=== PATIENT | female | born 1950 | race Caucasian/White ===

== ENCOUNTER 2020-08-19 13:13 | Outpatient (REF) | payer MEDICARE, MEDICAID, SELFPAY | END 2020-08-19 13:14 | disposition home or self-care (01) | LOC: HO.LAB 13:13 | PROVIDERS: Visit Provider Nurse Practitioner Family | DX: Z20.828 Contact with and (suspected) exposure to other viral communicable diseases (principal) | CPT/HCPCS: U0003 ==

== ENCOUNTER 2020-08-20 10:25 | Outpatient (REF) | payer MEDICARE, MEDICAID, SELFPAY ==
[2020-08-20 11:55] LABS: Alanine Aminotransferase 22 U/L (0-31); Alkaline Phosphatase 71 U/L (39-117); Anion Gap 14 (12-20); Aspartate Amino Transferase 17 U/L (5-31); Bilirubin Direct 0.4 mg/dL (0.0-0.5); Bilirubin Total 0.9 mg/dL (0.0-1.0); Blood Urea Nitrogen 34 mg/dL (9-16); Calcium 10.4 mg/dL (8.4-10.2); Carbon Dioxide 27 mmol/L (22-29); Chloride 98 mmol/L (96-108); Cholesterol 229 mg/dL; Estimated Glomerular Filt Rate 41; Glucose Random 272 mg/dL (60-115); HDL Cholesterol 80 mg/dL; LDL Cholesterol Calculated 135 mg/dl; Potassium 3.8 mmol/l (3.3-5.1); Sodium 135 mmol/L (135-145); Total Protein 7.8 g/dL (6.5-8.0); Triglycerides 70 mg/dL
[2020-08-20 12:00] LABS: Thyroid Stimulating Hormone 1.48 uIU/mL (0.32-4.0)
== END 2020-08-20 10:26 | disposition home or self-care (01) ==
LOC: HO.HMGCLDS 10:25
PROVIDERS: Visit Provider Student in an Organized Health Care Education/Training Program
DX: E03.9 Hypothyroidism, unspecified (principal); E11.9 Type 2 diabetes mellitus without complications
CPT/HCPCS: 80048; 80061; 80076; 84443

== ENCOUNTER 2020-08-31 10:06 | Outpatient (REF) | payer MEDICARE, MEDICAID, SELFPAY | END 2020-08-31 10:07 | disposition home or self-care (01) | LOC: HO.HMGCLDS 10:06 | PROVIDERS: Visit Provider Internal Medicine | DX: Z20.822 Contact with and (suspected) exposure to COVID-19 (principal) | CPT/HCPCS: 36415; C9803; U0003 ==

== ENCOUNTER 2020-10-08 10:24 | Outpatient (REF) | payer MEDICARE, SELFPAY ==
[2020-10-08 14:36] LABS: Alanine Aminotransferase 25 U/L (0-31); Albumin Level 4.4 g/dL (3.5-5.0); Alkaline Phosphatase 63 U/L (39-117); Anion Gap 12 (12-20); Aspartate Amino Transferase 21 U/L (5-31); Bilirubin Total 0.5 mg/dL (0.0-1.0); Blood Urea Nitrogen 22 mg/dL (9-16); Calcium 9.9 mg/dL (8.4-10.2); Carbon Dioxide 28 mmol/L (22-29); Chloride 98 mmol/L (96-108); Cholesterol 217 mg/dL; Estimated Glomerular Filt Rate 58; Glucose Fasting 216 mg/dL (60-99); HDL Cholesterol 68 mg/dL; LDL Cholesterol Calculated 127 mg/dl; Potassium 3.3 mmol/L (3.3-5.1); Sodium 135 mmol/L (135-145); Total Protein 6.8 g/dL (6.5-8.0); Triglycerides 113 mg/dL
[2020-10-08 14:43] LABS: TSH reflex Free T4 0.48 uIU/mL (0.32-4.0)
[2020-10-08 14:46] LABS: Microalbum/Creatinine Ratio Ur 10.8 ug/mg cr
[2020-10-08 14:53] LABS: Estimated Average Glucose 157 mg/dL; Hemoglobin A1c % 7.1 %
== END 2020-10-08 10:25 | disposition home or self-care (01) ==
LOC: HO.HMGCLDS 10:24
PROVIDERS: PCP Internal Medicine; Visit Provider Internal Medicine
DX: E11.9 Type 2 diabetes mellitus without complications (principal); E78.5 Hyperlipidemia, unspecified; I10 Essential (primary) hypertension
CPT/HCPCS: 36415; 80053; 80061; 82043; 83036; 84443

== ENCOUNTER 2021-02-08 08:00 | Outpatient (RCR) | payer MEDICARE, OTHER, SELFPAY ==
--- NOTE | 2020-11-12 09:43 | MHC.PT.EP ---
[facility] [place] Office [address] [phone] F: [phone] F: [phone] F: [phone] F: [phone] Physical Therapy Plan of Care Date of Evaluation: 11/10/20 Date of Surgery: Diagnosis: Lumbar DDD. 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 Short Term Goals: In 1 week: initiate HEP with evidence of compliance. In 3 weeks: improve baseline pain to < 4/10; initial: 6/10. Pleating Supervisor Goals: In 5 week: I with HEP. In 5 weeks: Pt will be able to tolerate sitting as long as she'd like provided choice of seat. Treatment Plan: Modalities to reduce pain, spasms and effusion. Manual therapy to restore motion and function. Therapeutic exercise to improve strength and flexibility. Neuromuscular re-education for posture and balance. Therapeutic activities to return to functional activities of daily living. Electronically signed by: Marin Adams PT. Please sign and return to therapist. Thank you for your referral.
--- NOTE | 2021-04-12 09:08 | MHC.PT.DC ---
[facility] [place] Office [place] Office [place] Office [address] Marlen Peng [address] [phone] F: [phone] F: [phone] F: [phone] F: [phone] Physical Therapy Discharge Report Diagnosis: Lumbar DDD. Date of Surgery: Date of Evaluation: 11/10/20 Date of Discharge: 04/12/21 Treatments to Date: 7 Cancellations to Date: 9 No Shows to Date: 1 Discharge Status: Visit Non-compliance Discharge Summary: Pt logged several cancelled apts, had demonstrated poor home compliance despite PT exercises improving her Sx. Pt did not attend her DC apt for final assessment. Electronically signed by: Marin Adams PT. Please sign and return to therapist. Thank you for your referral.
== END 2021-04-12 09:09 | disposition home or self-care (01) ==
LOC: HO.PTCHIC 08:00
PROVIDERS: PCP Internal Medicine; Visit Provider Internal Medicine
DX: M51.36 Other intervertebral disc degeneration, lumbar region (principal)
CPT/HCPCS: 97110; 97140; 97162

== ENCOUNTER 2021-05-26 06:51 | Outpatient (REF) | payer MEDICARE, OTHER, SELFPAY | END 2021-05-26 06:52 | disposition home or self-care (01) | LOC: HO.HMGCLDS 06:51 | PROVIDERS: PCP Student in an Organized Health Care Education/Training Program; Visit Provider Internal Medicine | DX: Z20.822 Contact with and (suspected) exposure to COVID-19 (principal) | CPT/HCPCS: C9803; U0003; U0005 ==

== ENCOUNTER 2022-04-04 09:50 | Outpatient (RCR) | payer MEDICARE, OTHER, SELFPAY | END 2022-08-03 09:01 | disposition home or self-care (01) | LOC: HO.PTCHIC 09:50 | PROVIDERS: PCP Student in an Organized Health Care Education/Training Program; Visit Provider Nurse Practitioner Primary Care | DX: R26.89 Other abnormalities of gait and mobility (principal) | CPT/HCPCS: 97110; 97112; 97162 ==

== ENCOUNTER 2022-04-06 18:34 | Outpatient (REF) | payer MEDICARE, OTHER, SELFPAY ==
[2022-04-06 19:30] LABS: Influenza A PCR NEGATIVE (Negative); Influenza B PCR NEGATIVE (Negative); Resp Syncy Virus RNA Qual PCR NEGATIVE (Negative); SARS COV2 PCR INHOUSE NEGATIVE (Negative)
== END 2022-04-06 18:35 | disposition home or self-care (01) ==
LOC: HO.LNP 18:34
PROVIDERS: Visit Provider Family Medicine
DX: Z20.822 Contact with and (suspected) exposure to COVID-19 (principal); R50.9 Fever, unspecified
CPT/HCPCS: 0241U

== ENCOUNTER 2022-06-17 07:41 | Inpatient (IN) | payer MEDICARE, OTHER, SELFPAY ==
[2022-06-17] VITALS (8 sets, daily range): BP systolic 128–190; BP diastolic 55–86; PULSE 58–69; RESP 12–18; TEMP 36.6–37.1; O2SAT 97–100; BMI 27.4
--- NOTE | ~2022-06-17 | US_ITS ---
EXAMINATION: US ABDOMEN LIMITED CLINICAL INFORMATION: Right upper quadrant, epigastric pain. COMPARISON: None TECHNIQUE: Real-time imaging of the right upper quadrant abdominal viscera. FINDINGS: PANCREAS: Visualized portions unremarkable. LIVER: Homogeneous echotexture. Small anechoic subcapsular cyst in the left lobe measuring 0.8 cm. GALLBLADDER: Unremarkable. COMMON BILE DUCT: Normal in caliber measuring 0.3 cm in diameter. RIGHT KIDNEY: 10.3 cm. Unremarkable. FREE FLUID: None. US/US abdomen limited IMPRESSION: Small left hepatic lobe cyst demonstrates benign features. No other significant abnormality.
--- NOTE | 2022-06-17 08:16 | ECG_ITS ---
Test Reason : abd pain Blood Pressure : / mmHG Vent. Rate : 058 BPM Atrial Rate : 058 BPM P-R Int : 136 ms QRS Dur : 080 ms QT Int : 434 ms P-R-T Axes : 017 012 019 degrees QTc Int : 426 ms Sinus bradycardia Otherwise normal ECG When compared with ECG of 20-JUN-2019 00:29, No significant change was found Referred By: Linda Penny Electronically Signed By:SOO WYATT MD
--- NOTE | 2022-06-17 08:17 | ED.ABDPAIN ---
HPI - Abdominal Pain General Chief Complaint: Abdominal Pain Stated Complaint: Covid+/abd pain/panic attack Time Seen by Provider: 06/17/22 08:04 Source: patient Mode of arrival: ambulatory History of Present Illness HPI narrative: 71-year-old female past medical history of diabetes HTN, HLD, degenerative disc disease, panic attack, COVID-19 positive on 06/10/22 presenting to the ED complaining of epigastric pain, nausea, mild diarrhea, and decreased p.o. intake x1 week. Reports pain worsened with eating. Denies fever, chills, cough, chest pain, shortness of breath, vomiting, dysuria/hematuria MD elicited complaint: abdominal pain Onset (ago): week(s) Related Data Home Medications Medication Instructions Recorded Confirmed metformin 500 mg tablet 500 mg PO BID 08/19/20 06/17/22 cholecalciferol (vitamin D3) 25 25 mcg PO DAILY 09/18/20 06/17/22 mcg (1,000 unit) capsule glipizide 10 mg tablet 10 mg PO BID 09/18/20 06/17/22 aspirin 81 mg tablet,delayed 81 mg PO DAILY 10/08/20 06/17/22 release cetirizine 10 mg tablet 10 mg PO DAILY PRN Allergic 10/08/20 06/17/22 Symptoms clonidine HCl 0.1 mg tablet 0.1 mg PO DAILY PRN Panic Attack(S) 10/08/20 06/17/22 cyclobenzaprine 10 mg tablet 10 mg PO DAILY PRN Spasms 10/08/20 06/17/22 losartan 100 mg tablet 50 mg PO DAILY 10/08/20 06/17/22 ascorbic acid (vitamin C) 1,000 mg 1,000 mg PO DAILY 06/17/22 06/17/22 tablet levothyroxine 125 mcg tablet 1 tab PO SUTUTHSA@0600 06/17/22 06/17/22 (Synthroid) levothyroxine 137 mcg tablet 1 tab PO MOWEFR@0600 06/17/22 06/17/22 (Synthroid) multivitamin with folic acid 400 1 tab PO DAILY 06/17/22 06/17/22 mcg tablet (Daily-Saadia (with folic acid)) omeprazole 40 mg capsule,delayed 40 mg PO DAILY PRN Indigestion 06/17/22 06/17/22 release Allergies Allergy/AdvReac Type Severity Reaction Status Date / Time gabapentin [GABAPENTIN] AdvReac Mild NAUSEA Unverified 04/06/22 16:15 acetaminophen [From PERCOCET] AdvReac Unknown VOMITTING Unverified 04/06/22 16:15 codeine [CODEINE] AdvReac Unknown VOMITTING Unverified 04/06/22 16:15 meperidine [From DEMEROL] AdvReac Unknown VOMITTING Unverified 04/06/22 16:15 morphine [MORPHINE] AdvReac Unknown CANT OPEN Unverified 04/06/22 16:15 HER EYES oxycodone [From PERCOCET] AdvReac Unknown VOMITTING Unverified 04/06/22 16:15 scallops [SCALLOPS] AdvReac Unknown ABD PAIN Unverified 04/06/22 16:15 Review of Systems Review of Systems Constitutional: No Fever, No Chills, No Fatigue, No Malaise ENT/Mouth: No Ear Pain, No Nasal Congestion, No sore throat, No Rhinorrhea, No Swallowing Difficulty Eyes: No Eye Pain, No Swelling, No Redness, No Vision Changes Cardiovascular: No Chest Pain, No SOB, No Orthopnea, No Edema, No Palpitations Respiratory: No Cough, No Sputum, No Wheezing, No Dyspnea Gastrointestinal: + Nausea, No Vomiting, + Diarrhea, No Constipation, + Abdominal pain Genitourinary: No Dysuria, No Urinary Frequency, No Hematuria, No Urinary Incontinence/retention, No Flank Pain, No Urinary Flow Changes, No Hesitancy Musculoskeletal: No joint pain, No Myalgias, No Joint Swelling Skin: No Skin Lesions, No rash Neuro: No Weakness, No Numbness, No Paresthesias, No Loss of Consciousness, No Dizziness, No Headache Yes all other systems are reviewed and are negative Constitutional: Reports as per [facility] Past Medical History Attestation statement: The following information was validated with the patient. 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 Advance Directives: Yes Advance Directives Information Provided: Yes Advance Directives on File: No Physical Exam ED Vital Signs: Vital Signs - 24 hr 06/17/22 07:49 06/17/22 08:35 06/17/22 10:20 Temperature 98 F 98.0 F Pulse Rate 68 58 63 Respiratory Rate 18 18 16 Blood Pressure 190/86 H 174/77 H 160/72 H Pulse Oximetry 100 97 100 Oxygen Delivery Method Room Air Room Air BMI result Body Mass Index 27.4 Const General: cooperative, healthy appearing, no acute distress and anxious Orientation/consciousness: patient oriented x3 Limitations: no limitations HENMT Head: Yes normal to inspection and Yes atraumatic Ears: hearing grossly normal bilaterally General nose exam: Normal external nose present Face and sinus: Yes normal facial exam Eyes General: appearance normal, both eyes and all related structures EOM: EOMs intact bilaterally Neck Neck: Yes normal visual inspection and Yes no meningeal signs Resp Effort & Inspection: normal respiratory effort and no respiratory distress Auscultation: clear to auscultation bilaterally, no crackles, no rales, no rhonchi and no wheezes Cardio Rate: regular rate Heart sounds: S1 normal heart sound present and S2 normal heart sound present GI Inspection: Yes normal to inspection Palpation (GI): Soft to palpation, Tenderness to palpation present (GI) in the epigastrum and in the RUQ (mild); with no rebound tenderness, no guarding and not rigid General: Yes no CVA tenderness Back/Spine/Pelvis Back: no CVA tenderness Skin Rashes: no rashes Wounds: no wounds Neuro General: patient oriented x3, tone normal, moves all extremities, no meningeal signs, no focal motor deficits and CN's II-XI intact bilaterally Gait exam (Neuro): Normal gait present Extrem General: Yes normal to inspection Course Course Course Narrative: -1010--no leukocytosis. H&H stable. Notably hyponatremic to 123. Hypochloremic to 90. Glucose 260 >> corrected for glucose 126 > suspect from decreased p.o. intake. Patient does admit to taking 1 day's worth of Paxlovid elevated however stopped due to side effects -labs otherwise reassuring > serum osmolality and urine studies added US abdomen limited IMPRESSION: Small left hepatic lobe cyst demonstrates benign features. No other significant abnormality. > plan to admit for further management MDM - Abdominal Pain MDM Narrative Medical decision making narrative: 71-year-old female past medical history of diabetes HTN, HLD,, degenerative disc disease, panic attack, COVID-19 positive on 06/10/22 presenting to the ED complaining of epigastric pain, nausea, mild diarrhea, and decreased p.o. intake x1 week. On exam vital signs stable, NAD, anxious, nontoxic appearing, lungs CTA, abdomen soft epigastric/RUQ tenderness, no rebound or guarding, no CVA tenderness. Concern for GERD/gastritis vs pancreatitis vs cholecystitis/lithiasis. Lower suspicion for penicillin/diverticulitis or renal stone. Rule out metabolic abnormality/dehydration. Symptoms atypical for ACS Plan: EKG, Labs, UA, IVF, symptomatic treatment, abdomen ultrasound Differential Diagnosis Differential diagnosis: Likely abdominal pain, gastroenteritis, gastritis, pancreatitis and peptic ulcer disease Medical Records Attestation: I reviewed the patient's medical records. Lab Data Attestation: I reviewed the patient's lab results. Result diagrams: 06/17/22 08:56 06/17/22 08:56 Labs: Lab Results 06/17/22 06/17/22 06/17/22 Range/Units 08:56 08:56 10:20 WBC 6.6 (4.8-10.8) X10*3/uL RBC 4.25 (4.20-5.50) X10*6/uL Hgb 12.4 (12.0-16.0) g/dl Hct 34.6 L (37.0-47.0) % MCV 81.4 (80.0-98.0) fL MCH 29.2 (27.0-33.0) pg MCHC 35.8 H (31.0-35.0) g/dl RDW 11.2 (11.0-16.0) % Plt Count 249 (160-400) X10*3/uL MPV 8.5 L (9.4-12.3) fL Immature Gran % (Auto) 1.1 H (0.0-0.4) % Neut % (Auto) 65.2 (45-73) % Lymph % (Auto) 24.7 (20-40) % [place] % (Auto) 8.1 (2-11) % Eos % (Auto) 0.6 (0-4) % Baso % (Auto) 0.3 (0-2) % Lymph # (Auto) 1.6 (1.2-4.9) X10*3/uL [place] # (Auto) 0.5 (0.1-1.2) X10*3/uL Eos # (Auto) 0.0 (0.0-0.4) X10*3/uL Baso # (Auto) 0.0 (0.0-0.2) X10*3/uL Abs Immat Gran (auto) 0.07 H (0.00-0.03) X10*3/uL Absolute Neuts (auto) 4.3 (2.0-8.3) x10*3/uL Absolute Nucleated RBC 0.000 (0.0-0.012) X10*3/uL Nucleated RBC % (auto) 0.0 (0.0-0.2) /100WBC Sodium 123 L (135-145) mmol/L Potassium 4.5 D (3.3-5.1) mmol/L Chloride 90 L (96-108) mmol/L Carbon Dioxide 22 (22-29) mmol/L Anion Gap 16 (12-20) BUN 7 L (9-16) mg/dL Creatinine 0.80 (0.5-1.4) mg/dL Estim Creat Clear Calc 63.8 Estimated GFR > 60 Random Glucose 260 H (60-115) mg/dL Calcium 9.5 (8.4-10.2) mg/dL Magnesium 1.7 (1.6-2.6) mg/dL Total Bilirubin 0.8 (0.0-1.0) mg/dL Direct Bilirubin 0.3 (0.0-0.5) mg/dL AST 25 (5-31) U/L ALT 17 (0-31) U/L Alkaline Phosphatase 77 D (39-117) U/L Total Protein 6.5 (6.5-8.0) g/dL Albumin 4.0 (3.5-5.0) g/dL Lipase 13 (8-78) U/L Urine Color Yellow Urine Appearance Clear Urine pH 7.0 (5.0-9.0) Ur Specific [place] 1.010 (1.005-1.025) Urine Protein Negative (Neg-Trace) mg/dL Urine Glucose (UA) 500 H (Negative) mg/dL Urine Ketones Trace (Negative) mg/dL Urine Blood Negative (Negative) Urine Nitrite Negative (Negative) Ur Leukocyte Esterase Small (1+) H (Negative) Urine RBC 0-2 (0-2) /HPF Urine WBC 0-5 (0-5) /HPF Ur Squamous Epith Cells 0-2 (0-2) /HPF Urine Bacteria None Seen (None Seen) Hyaline Casts 0-2 (0-2) /LPF Discharge Plan Discharge Clinical Impression: Acute hyponatremia, Decreased oral intake, COVID-19 Patient Disposition: Admitted As Inpatient
--- NOTE | 2022-06-17 08:44 | PC.NURSE ---
pt complains of epigastric abd pain 03/30. denies nausea. diarrhea this morning. BS hypoactive. IV in place with NS running. gave her po gi meds, zofran and famotidine IV.
[2022-06-17] MEDS: ondansetron HCL 4 MG/2 ML VIAL IVPUSH (08:57)
[2022-06-17] MEDS: Lidocaine HCl Viscous 2 % 15 ML SOLUTION MUCOUS MEM (08:57)
[2022-06-17] MEDS: Famotidine/PF 20 MG/2 ML VIAL IVPUSH (08:57)
[2022-06-17] MEDS: Magnesium Hydrox/Alum Hydrox 30 ML ORAL.SUSP PO (08:57)
[2022-06-17] MEDS: 0.9 % Sodium Chloride 1,000 ML 999 ML IV (08:57)
[2022-06-17 09:01] LABS: MANUAL DIFF FLAG NO
[2022-06-17 09:04] LABS: Basophils Percent Auto 0.3 % (0-2); Eosinophils Percent Auto 0.6 % (0-4); Hematocrit 34.6 % (37.0-47.0); Hemoglobin 12.4 g/dl (12.0-16.0); Imm Gran Abs Auto 0.07 X10*3/uL (0.00-0.03); Imm Gran Pct Auto 1.1 % (0.0-0.4); Lymphocytes Absolute Auto 1.6 X10*3/uL (1.2-4.9); Lymphocytes Percent Auto 24.7 % (20-40); Mean Corpuscular HGB Conc 35.8 g/dl (31.0-35.0); Mean Corpuscular Hemoglobin 29.2 pg (27.0-33.0); Mean Corpuscular Volume 81.4 fL (80.0-98.0); Mean Platelet Volume 8.5 fL (9.4-12.3); Monocytes Absolute Auto 0.5 X10*3/uL (0.1-1.2); Monocytes Percent Auto 8.1 % (2-11); Neutrophils Absolute Auto 4.3 x10*3/uL (2.0-8.3); Neutrophils Percent Auto 65.2 % (45-73); Platelet Count 249 X10*3/uL (160-400); Red Blood Count 4.25 X10*6/uL (4.20-5.50); Red Cell Distribution Width 11.2 % (11.0-16.0); White Blood Count 6.6 X10*3/uL (4.8-10.8)
[2022-06-17 09:31] LABS: Alanine Aminotransferase 17 U/L (0-31); Alkaline Phosphatase 77 U/L (39-117); Aspartate Amino Transferase 25 U/L (5-31); Bilirubin Direct 0.3 mg/dL (0.0-0.5); Bilirubin Total 0.8 mg/dL (0.0-1.0); Blood Urea Nitrogen 7 mg/dL (9-16); Calcium 9.5 mg/dL (8.4-10.2); Creatinine Clr Calc Pharmacy 63.8; Estimated Glomerular Filt Rate > 60; Glucose Random 260 mg/dL (60-115); Lipase 13 U/L (8-78); Magnesium 1.7 mg/dL (1.6-2.6); Total Protein 6.5 g/dL (6.5-8.0)
[2022-06-17 09:38] LABS: Anion Gap 16 (12-20); Carbon Dioxide 22 mmol/L (22-29); Chloride 90 mmol/L (96-108); Potassium 4.5 mmol/L (3.3-5.1); Sodium 123 mmol/L (135-145)
[2022-06-17 10:33] LABS: Appearance Urine Clear; Color Urine Yellow; Glucose Urine UA 500 mg/dL (Negative); Leukocyte Esterase Urine Small (1+) (Negative); Nitrite Urine Negative (Negative); UMIC TRIGGER UACC YES; Urine Blood Negative (Negative); Urine Ketones Trace mg/dL (Negative); Urine Protein Negative (Neg-Trace)
[2022-06-17 10:41] LABS: Bacteria Urine None Seen (None Seen); Hyaline Casts Urine 0-2 /LPF (0-2); RBC Urine 0-2 /HPF (0-2); Squamous Epithelial Cell Urine 0-2 /HPF (0-2); UACC Culture Trigger YES; WBC Urine 0-5 /HPF (0-5)
--- NOTE | 2022-06-17 10:55 | PHA.MEDREC ---
Pharmacy Consult ? Medication Reconciliation Pharmacy has completed the medication reconciliation.
[2022-06-17 11:08] LABS: Osmolality, Serum 262 mosm/kg (281-305)
[2022-06-17 11:28] LABS: Creatinine Urine 34.09 mg/dL
[2022-06-17 11:34] LABS: Osmolality Urine 200 mosm/kg (373-1093)
[2022-06-17 13:05] LABS: Free T4 (Free Thyroxine) 1.41 ng/dL (0.71-1.85); Thyroid Stimulating Hormone 0.43 uIU/mL (0.32-4.0)
--- NOTE | 2022-06-17 13:07 | PM.IMHP ---
History of Present Illness Date of Service: 06/17/22 Chief Complaint: anxiety 71-year-old female past medical history of diabetes on oral agents, HTN controlled on losartant, HLD on no meds, degenerative disc disease, hyPothyroidism from thryoid removal from a cold nodule, panic attack, COVID-19 positive on 06/10/22 and was prescribed Paxlovid and only took one dose and had abdominal issues including epigastric pain, nausea, mild diarrhea, and decreased p.o. intake x1 week that she attributes to Paxlovid and therefore only took one dose and has been feeling very anxious that things will go wrong as past experienced following hospitalization.? Denies fever, chills, cough, chest pain, shortness of breath, vomiting, dysuria/hematuria. She is found to have incidental Hypoatremia with sodium of 123 with no apparaent associated symptoms. 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 Advance Directives: Yes Advance Directives Information Provided: Yes Advance Directives on File: No Meds Allergies Allergy/AdvReac Type Severity Reaction Status Date / Time gabapentin [GABAPENTIN] AdvReac Mild NAUSEA Unverified 04/06/22 16:15 acetaminophen [From PERCOCET] AdvReac Unknown VOMITTING Unverified 04/06/22 16:15 codeine [CODEINE] AdvReac Unknown VOMITTING Unverified 04/06/22 16:15 meperidine [From DEMEROL] AdvReac Unknown VOMITTING Unverified 04/06/22 16:15 morphine [MORPHINE] AdvReac Unknown CANT OPEN Unverified 04/06/22 16:15 HER EYES oxycodone [From PERCOCET] AdvReac Unknown VOMITTING Unverified 04/06/22 16:15 scallops [SCALLOPS] AdvReac Unknown ABD PAIN Unverified 04/06/22 16:15 Active Medications: Current Medications Acetaminophen (Acetaminophen 325 Mg Tablet) 650 mg PO Q6H PRN PRN Reason: Pain, Mild (Pain Scale 1-3) Enoxaparin Sodium (Enoxaparin Sodium 30 Mg/0.3 Ml Syringe) 30 mg SUBCUT Q24H [facility] Magnesium Hydroxide (Milk Of Magnesia 30 Ml Oral.Susp) 30 ml PO DAILY PRN PRN Reason: Constipation Melatonin (Melatonin 3 Mg Tablet) 6 mg PO BEDTIME PRN PRN Reason: Insomnia Ondansetron HCl (Ondansetron Hcl 4 Mg/2 Ml Vial) 4 mg IVPUSH Q8H PRN PRN Reason: Nausea and Vomiting Pharmacy Consult (Consult Rx Perform Med Rec) 1 each MISCELLANE ONCE PRN PRN Reason: Consult order Sodium Chloride (0.9 % Sodium Chloride Flush 3 Ml Syringe) 3 ml IVFLUSH QSHIFT [facility] Home Medications Medication Instructions Recorded Confirmed Last Taken Type metformin 500 mg tablet 500 mg PO BID 08/19/20 06/17/22 06/17/22 History cholecalciferol (vitamin D3) 25 25 mcg PO DAILY 09/18/20 06/17/22 06/17/22 History mcg (1,000 unit) capsule glipizide 10 mg tablet 10 mg PO BID 09/18/20 06/17/22 06/17/22 History aspirin 81 mg tablet,delayed 81 mg PO DAILY 10/08/20 06/17/22 06/17/22 History release cetirizine 10 mg tablet 10 mg PO DAILY PRN Allergic 10/08/20 06/17/22 Unknown History Symptoms clonidine HCl 0.1 mg tablet 0.1 mg PO DAILY PRN Panic Attack(S) 10/08/20 06/17/22 06/17/22 History cyclobenzaprine 10 mg tablet 10 mg PO DAILY PRN Spasms 10/08/20 06/17/22 Unknown History losartan 100 mg tablet 50 mg PO DAILY 10/08/20 06/17/22 06/17/22 History ascorbic acid (vitamin C) 1,000 mg 1,000 mg PO DAILY 06/17/22 06/17/22 06/17/22 History tablet levothyroxine 125 mcg tablet 1 tab PO SUTUTHSA@0600 06/17/22 06/17/22 06/16/22 History (Synthroid) levothyroxine 137 mcg tablet 1 tab PO MOWEFR@0600 06/17/22 06/17/22 06/17/22 History (Synthroid) multivitamin with folic acid 400 1 tab PO DAILY 06/17/22 06/17/22 Unknown History mcg tablet (Daily-Saadia (with folic acid)) omeprazole 40 mg capsule,delayed 40 mg PO DAILY PRN Indigestion 06/17/22 06/17/22 Unknown History release Physical Exam Vital Signs and Narrative: Vital Signs: Last Vital Signs Temp 98.0 F 06/17/22 08:35 Pulse 63 06/17/22 10:20 Resp 16 06/17/22 10:20 BP 160/72 H 06/17/22 10:20 Pulse Ox 100 06/17/22 10:20 O2 Del Method 06/17/22 10:20 BMI result Body Mass Index 27.4 Const: Other: Constitutional: Alert, in no distress, Mental Status: Oriented to person, place and time. Eyes: Pupils are equal, round and reactive to light. Ear, Nose and Throat: Oropharynx clear, mucous membranes moist. Ears and nose without eformities. Respiratory: Clear to auscultation. No wheezing, rales or rhonchi. Cardiovascular: S1 S2 regular. No murmurs, rubs or gallops. Gastrointestinal: Abdomen soft, non-tender, non-distended. Normal bowel sounds.? Neurologic: Cranial nerves II-XII grossly intact. No focal neurological deficits. Moves all extremities spontaneously.? Skin: No rashes or lesions.? Musculoskeletal: No cyanosis or clubbing. Psychiatric: Normal mood and affect? Results Labs CBC and Chem 7: 06/17/22 08:56 06/17/22 16:01 Labs: Laboratory Results - last 24 hr 06/17/22 06/17/22 06/17/22 08:56 08:56 08:56 MCV 81.4 MCH 29.2 MCHC 35.8 H RDW 11.2 Plt Count 249 MPV 8.5 L Immature Gran % (Auto) 1.1 H Neut % (Auto) 65.2 Lymph % (Auto) 24.7 [place] % (Auto) 8.1 Eos % (Auto) 0.6 Baso % (Auto) 0.3 Lymph # (Auto) 1.6 [place] # (Auto) 0.5 Eos # (Auto) 0.0 Baso # (Auto) 0.0 Abs Immat Gran (auto) 0.07 H Absolute Neuts (auto) 4.3 Absolute Nucleated RBC 0.000 Nucleated RBC % (auto) 0.0 Anion Gap 16 Estim Creat Clear Calc 63.8 Estimated GFR > 60 Random Glucose 260 H Osmolality 262 L Calcium 9.5 Magnesium 1.7 Total Bilirubin 0.8 Direct Bilirubin 0.3 AST 25 ALT 17 Alkaline Phosphatase 77 D Total Protein 6.5 Albumin 4.0 Lipase 13 TSH 0.43 Free T4 1.41 Urine Color Urine Appearance Urine pH Ur Specific [place] Urine Protein Urine Glucose (UA) Urine Ketones Urine Blood Urine Nitrite Ur Leukocyte Esterase Urine RBC Urine WBC Ur Squamous Epith Cells Urine Bacteria Hyaline Casts Urine Osmolality Ur Random Sodium Urine Creatinine 06/17/22 06/17/22 06/17/22 10:20 10:20 10:20 MCV MCH MCHC RDW Plt Count MPV Immature Gran % (Auto) Neut % (Auto) Lymph % (Auto) [place] % (Auto) Eos % (Auto) Baso % (Auto) Lymph # (Auto) [place] # (Auto) Eos # (Auto) Baso # (Auto) Abs Immat Gran (auto) Absolute Neuts (auto) Absolute Nucleated RBC Nucleated RBC % (auto) Anion Gap Estim Creat Clear Calc Estimated GFR Random Glucose Osmolality Calcium Magnesium Total Bilirubin Direct Bilirubin AST ALT Alkaline Phosphatase Total Protein Albumin Lipase TSH Free T4 Urine Color Yellow Urine Appearance Clear Urine pH 7.0 Ur Specific [place] 1.010 Urine Protein Negative Urine Glucose (UA) 500 H Urine Ketones Trace Urine Blood Negative Urine Nitrite Negative Ur Leukocyte Esterase Small (1+) H Urine RBC 0-2 Urine WBC 0-5 Ur Squamous Epith Cells 0-2 Urine Bacteria None Seen Hyaline Casts 0-2 Urine Osmolality 200 L Ur Random Sodium 20.0 Urine Creatinine 34.09 Imaging Radiologist's Impressions: Impressions Abdomen Ultrasound 06/17/22 10:00 IMPRESSION: Small left hepatic lobe cyst demonstrates benign features. No other significant abnormality. Assessment and Plan (1) Acute hyponatremia: Status: Acute Plan 71-year-old female past medical history of diabetes on oral agents, HTN controlled on losartant, HLD on no meds, degenerative disc disease, hyPothyroidism from thryoid removal from a cold nodule, panic attack, COVID-19 positive on 06/10/22 and was prescribed Paxlovid here with panic attack and found to have Hyponatremia 1/Hyponatremia--acute likely hypovelemic type -check urine and serum osmo -frequent serum sodium level -Neprho consult 2/Panick attack--she's fairly calm right now, reassured, continue cloinidine, consider CARE consult 3/ HTN--contnue Losartan 4/ diabetes--Metformin and Glipizide if eating regular meals, SSI and diabetic diet 5/Hypothyroidism--check TSH, continue LT4 6/ GERD--PPI Quality Stroke Does the patient have a stroke diagnosis?: No VTE Prior VTE?: No VTE Risk Level:: Medical - moderate - high VTE Device Contraindication: Treatment Not Indicated VTE Drug Contraindication: N/A - Med Ordered
[2022-06-17] MEDS: Enoxaparin Sodium 30 MG/0.3 ML SYRINGE SUBCUT (14:32)
[2022-06-17 16:16] LABS: IDNOW Serial# 16C4AD1C
[2022-06-17 16:17] LABS: COVID-19 Test Positive (Negative)
[2022-06-17 16:24] LABS: Sodium 129 mmol/L (135-145)
--- NOTE | 2022-06-17 16:55 | PC.NURSE ---
PT VS TAKEN FRESH PITCHER WATER GIVEN AND BED SIDE COMMODE EMPTY .
--- NOTE | 2022-06-17 19:39 | PC.NURSE ---
Care of patient assumed. She is found resting in stretcher using her cellphone. She is alert, oriented x4, slightly anxious with many questions. Verbal reassurance provided. Patient with a recent diagnosis of COVID (06/10) and started on Paxlovix-- only tolerated one dose and then developed GI discomfort- decreased PO intake for 1 week, abdominal pain, nausea, and diarrhea. Today in ED found to be hyponatremic, so plan for admission and nephro consult. Patient currently denies pain. HR NSR 60s and O2 saturations 100% on room air. She currently denies abdominal pain or discomfort. She is anxious, but communicates her concerns. She uses the bedside commode independently. Call isidro is within reach. Plan for admission to monitor Na. She denies SOB or pain.
[2022-06-17] MEDS: Acetaminophen 325 MG TABLET 650 MG PO (23:51)
[2022-06-17] MEDS: 0.9 % Sodium Chloride Flush 3 ML SYRINGE IVFLUSH (23:52)
[2022-06-18 00:16] LABS: Osmolality Urine 91 mosm/kg (373-1093)
[2022-06-18 02:38] VITALS: RESP 17
[2022-06-18 05:39] VITALS: BP 134/72; PULSE 64; RESP 14; TEMP 36.9; O2SAT 98
[2022-06-18] MEDS: Acetaminophen 325 MG TABLET 650 MG PO (06:49)
[2022-06-18 07:15] LABS: Anion Gap 13 (12-20); Blood Urea Nitrogen 8 mg/dL (9-16); Calcium 9.5 mg/dL (8.4-10.2); Carbon Dioxide 25 mmol/L (22-29); Chloride 100 mmol/L (96-108); Creatinine Clr Calc Pharmacy 62.3; Estimated Glomerular Filt Rate > 60; Glucose Random 168 mg/dL (60-115); Potassium 4.1 mmol/L (3.3-5.1); Sodium 134 mmol/L (135-145)
--- NOTE | 2022-06-18 08:46 | PM.CNNEP ---
History of Present Illness Reason for Consult Consult date: 06/18/22 Reason for consult: hyponatremia Chief Complaint Chief complaint: Hyponatemia/Covid+ History of Present Illness Narrative: 71-year-old female past medical history of diabetes on oral agents,? HTN controlled on losartan, HLD on no meds, degenerative disc disease, hypothyroidism from thryoid removal from a cold nodule, panic attack, COVID-19 positive on 06/10/22? and was prescribed Paxlovid and only took one dose and had abdominal issues including? epigastric pain, nausea, mild diarrhea, and decreased p.o. intake x1 week that she attributes to Paxlovid and therefore only took one dose and has been feeling very anxious that things will go wrong as past experienced following hospitalization.? Denies fever, chills, cough, chest pain, shortness of breath, vomiting, dysuria/hematuria. She is found to have incidental Hypoatremia with sodium of 123 with no apparent associated symptoms. 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 Advance Directives: Yes Advance Directives Information Provided: Yes Advance Directives on File: No Meds Allergies Allergy/AdvReac Type Severity Reaction Status Date / Time gabapentin [GABAPENTIN] AdvReac Mild NAUSEA Unverified 04/06/22 16:15 acetaminophen [From PERCOCET] AdvReac Unknown VOMITTING Unverified 04/06/22 16:15 codeine [CODEINE] AdvReac Unknown VOMITTING Unverified 04/06/22 16:15 meperidine [From DEMEROL] AdvReac Unknown VOMITTING Unverified 04/06/22 16:15 morphine [MORPHINE] AdvReac Unknown CANT OPEN Unverified 04/06/22 16:15 HER EYES oxycodone [From PERCOCET] AdvReac Unknown VOMITTING Unverified 04/06/22 16:15 scallops [SCALLOPS] AdvReac Unknown ABD PAIN Unverified 04/06/22 16:15 Active Medications: Current Medications Acetaminophen (Acetaminophen 325 Mg Tablet) 650 mg PO Q6H PRN PRN Reason: Pain, Mild (Pain Scale 1-3) Last Admin: 06/18/22 06:49 Dose: 650 mg Enoxaparin Sodium (Enoxaparin Sodium 30 Mg/0.3 Ml Syringe) 30 mg SUBCUT Q24H [facility] Last Admin: 06/17/22 14:32 Dose: 30 mg Magnesium Hydroxide (Milk Of Magnesia 30 Ml Oral.Susp) 30 ml PO DAILY PRN PRN Reason: Constipation Melatonin (Melatonin 3 Mg Tablet) 6 mg PO BEDTIME PRN PRN Reason: Insomnia Ondansetron HCl (Ondansetron Hcl 4 Mg/2 Ml Vial) 4 mg IVPUSH Q8H PRN PRN Reason: Nausea and Vomiting Pharmacy Consult (Consult Rx Perform Med Rec) 1 each MISCELLANE ONCE PRN PRN Reason: Consult order Sodium Chloride (0.9 % Sodium Chloride Flush 3 Ml Syringe) 3 ml IVFLUSH QSHIFT [facility] Last Admin: 06/17/22 23:52 Dose: 3 ml Home Medications Medication Instructions Recorded Confirmed Last Taken Type metformin 500 mg tablet 500 mg PO BID 08/19/20 06/17/22 06/17/22 History cholecalciferol (vitamin D3) 25 25 mcg PO DAILY 09/18/20 06/17/22 06/17/22 History mcg (1,000 unit) capsule glipizide 10 mg tablet 10 mg PO BID 09/18/20 06/17/22 06/17/22 History aspirin 81 mg tablet,delayed 81 mg PO DAILY 10/08/20 06/17/22 06/17/22 History release cetirizine 10 mg tablet 10 mg PO DAILY PRN Allergic 10/08/20 06/17/22 Unknown History Symptoms clonidine HCl 0.1 mg tablet 0.1 mg PO DAILY PRN Panic Attack(S) 10/08/20 06/17/22 06/17/22 History cyclobenzaprine 10 mg tablet 10 mg PO DAILY PRN Spasms 10/08/20 06/17/22 Unknown History losartan 100 mg tablet 50 mg PO DAILY 10/08/20 06/17/22 06/17/22 History ascorbic acid (vitamin C) 1,000 mg 1,000 mg PO DAILY 06/17/22 06/17/22 06/17/22 History tablet levothyroxine 125 mcg tablet 1 tab PO SUTUTHSA@0600 06/17/22 06/17/22 06/16/22 History (Synthroid) levothyroxine 137 mcg tablet 1 tab PO MOWEFR@0600 06/17/22 06/17/22 06/17/22 History (Synthroid) multivitamin with folic acid 400 1 tab PO DAILY 06/17/22 06/17/22 Unknown History mcg tablet (Daily-Saadia (with folic acid)) omeprazole 40 mg capsule,delayed 40 mg PO DAILY PRN Indigestion 06/17/22 06/17/22 Unknown History release Physical Exam Vital Signs: Last Vital Signs Temp 98.4 F 06/18/22 05:39 Pulse 64 06/18/22 05:39 Resp 14 06/18/22 05:39 BP 134/72 06/18/22 05:39 Pulse Ox 98 06/18/22 05:39 O2 Del Method 06/18/22 05:39 BMI result Body Mass Index 27.4 Const Other: Constitutional: Alert, in no distress, Mental Status: Oriented to person, place and time. Eyes: Pupils are equal, round and reactive to light. Ear, Nose and Throat: Oropharynx clear, mucous membranes moist. Ears and nose without eformities. Respiratory: Clear to auscultation. No wheezing, rales or rhonchi. Cardiovascular: S1 S2 regular. No murmurs, rubs or gallops. Gastrointestinal: Abdomen soft, non-tender, non-distended. Normal bowel sounds.? Neurologic: Cranial nerves II-XII grossly intact. No focal neurological deficits. Moves all extremities spontaneously.? Skin: No rashes or lesions.? Musculoskeletal: No cyanosis or clubbing. Psychiatric: Normal mood and affect? General: cooperative, healthy appearing, no acute distress and anxious Orientation/consciousness: patient oriented x3 Limitations: no limitations HEENT Head: Yes normal to inspection and Yes atraumatic Ears: hearing grossly normal bilaterally General nose exam: Normal external nose present Face and sinus: Yes normal facial exam Eyes General: appearance normal, both eyes and all related structures EOM: EOMs intact bilaterally Neck Neck: Yes normal visual inspection and Yes no meningeal signs Resp Effort & Inspection: normal respiratory effort and no respiratory distress Auscultation: clear to auscultation bilaterally, no crackles, no rales, no rhonchi and no wheezes Cardio Rate: regular rate Heart sounds: S1 normal heart sound present and S2 normal heart sound present GI Inspection: Yes normal to inspection Palpation (GI): Soft to palpation, Tenderness to palpation present (GI) in the epigastrum and in the RUQ (mild); with no rebound tenderness, no guarding and not rigid General: Yes no CVA tenderness Back/Spine/Pelvis Back: no CVA tenderness Skin Rashes: no rashes Wounds: no wounds Neuro General: patient oriented x3, tone normal, moves all extremities, no meningeal signs, no focal motor deficits and CN's II-XI intact bilaterally Gait exam (Neuro): Normal gait present Extrem General: Yes normal to inspection Results Lab Results Result Diagrams: 06/17/22 08:56 06/18/22 06:35 Lab results: Chemistry 06/17/22 06/17/22 06/18/22 08:56 16:01 06:35 Sodium 123 L 129 L 134 L Potassium 4.5 D 4.1 Carbon Dioxide 22 25 BUN 7 L 8 L Creatinine 0.80 0.82 Calcium 9.5 9.5 Hematology 06/17/22 08:56 WBC 6.6 Hgb 12.4 Plt Count 249 Urinalysis 06/17/22 10:20 Urine Color Yellow Urine Appearance Clear Urine pH 7.0 Ur Specific [place] 1.010 Urine Protein Negative Urine Glucose (UA) 500 H Urine Ketones Trace Urine Blood Negative Urine Nitrite Negative Ur Leukocyte Esterase Small (1+) H Urine RBC 0-2 Urine WBC 0-5 Ur Squamous Epith Cells 0-2 Hyaline Casts 0-2 Urine Studies 06/17/22 06/17/22 06/17/22 10:20 10:20 23:51 Urine Osmolality 200 L 91 L Urine Creatinine 34.09 Assessment and Plan (1) Acute hyponatremia: Status: Acute Plan 71-year-old female past medical history of diabetes on oral agents, HTN controlled on losartant, HLD on no meds, degenerative disc disease, hyPothyroidism from thryoid removal from a cold nodule, panic attack, COVID-19 positive on 06/10/22 and was prescribed Paxlovid here with panic attack and found to have Hyponatremia 1/Hyponatremia- I suspect this is 2nd to COVID with tubular dysfunction she is correcting with NS the low Uosm is not c/w SIADH or vol depletion low osmolar intake due to anorexia with continued free water intake could be the culprit avoid over correction allow ad ambreen h20 Procedures Date of Service Date of Service: 06/18/22
[2022-06-18] MEDS: 0.9 % Sodium Chloride Flush 3 ML SYRINGE IVFLUSH (10:10)
--- NOTE | 2022-06-18 10:41 | PC.NURSE ---
pt had a BM this morning.
--- NOTE | 2022-06-18 11:08 | P.PNIM_ITS ---
Subjective Subjective Date of Service: 07/12/22 Interval History: F/u hyponatremia, anxiety, covid interval history: no new issues Review of Systems Gen: no fever Resp: no sob, no cough CV: no chest, no HILL, no leg edema GI: No n/v, no abd pain Neuro: No confusion Psych: anxiety Physical Exam Vital Signs: Vital Signs: Last Vital Signs Temp 98.4 F 06/18/22 05:39 Pulse 64 06/18/22 05:39 Resp 14 06/18/22 05:39 BP 134/72 06/18/22 05:39 Pulse Ox 98 06/18/22 05:39 O2 Del Method 06/18/22 05:39 BMI result Body Mass Index 27.4 Const: Other: Constitutional: Alert, in no distress, Mental Status: Oriented to person, place and time. Eyes: Pupils are equal, round and reactive to light. Ear, Nose and Throat: Oropharynx clear, mucous membranes moist. Ears and nose without eformities. Respiratory: Clear to auscultation. No wheezing, rales or rhonchi. Cardiovascular: S1 S2 regular. No murmurs, rubs or gallops. Gastrointestinal: Abdomen soft, non-tender, non-distended. Normal bowel sounds.? Neurologic: Cranial nerves II-XII grossly intact. No focal neurological deficits. Moves all extremities spontaneously.? Skin: No rashes or lesions.? Musculoskeletal: No cyanosis or clubbing. Psychiatric: Normal mood and affect? Objective Data Active Medications Acetaminophen (Acetaminophen 325 Mg Tablet) 650 mg PO Q6H PRN PRN Reason: Pain, Mild (Pain Scale 1-3) Last Admin: 06/18/22 06:49 Dose: 650 mg Documented By: KAROL Enoxaparin Sodium (Enoxaparin Sodium 30 Mg/0.3 Ml Syringe) 40 mg SUBCUT Q24H [facility] Magnesium Hydroxide (Milk Of Magnesia 30 Ml Oral.Susp) 30 ml PO DAILY PRN PRN Reason: Constipation Melatonin (Melatonin 3 Mg Tablet) 6 mg PO BEDTIME PRN PRN Reason: Insomnia Ondansetron HCl (Ondansetron Hcl 4 Mg/2 Ml Vial) 4 mg IVPUSH Q8H PRN PRN Reason: Nausea and Vomiting Pharmacy Consult (Consult Rx Perform Med Rec) 1 each MISCELLANE ONCE PRN PRN Reason: Consult order Sodium Chloride (0.9 % Sodium Chloride Flush 3 Ml Syringe) 3 ml IVFLUSH QSHIFT [facility] Last Admin: 06/18/22 10:10 Dose: 3 ml Documented By: STEVEN Labs CBC & Chem 7: 06/17/22 08:56 06/18/22 06:35 Labs: Laboratory Results - last 24 hr 06/17/22 06/17/22 06/17/22 08:56 08:56 10:20 Anion Gap Estim Creat Clear Calc Estimated GFR Random Glucose Osmolality 262 L Calcium TSH 0.43 Free T4 1.41 Urine Osmolality 200 L Ur Random Sodium Urine Creatinine COVID-19 ([facility]) COVID-19 Clin Com 06/17/22 06/17/22 06/17/22 10:20 16:01 23:51 Anion Gap Estim Creat Clear Calc Estimated GFR Random Glucose Osmolality Calcium TSH Free T4 Urine Osmolality 91 L Ur Random Sodium 20.0 Urine Creatinine 34.09 COVID-19 ([facility]) Positive A COVID-19 Clin Com See Note 06/18/22 06:35 Anion Gap 13 Estim Creat Clear Calc 62.3 Estimated GFR > 60 Random Glucose 168 H Osmolality Calcium 9.5 TSH Free T4 Urine Osmolality Ur Random Sodium Urine Creatinine COVID-19 ([facility]) COVID-19 Clin [facility] Assessment and Plan (1) Epigastric pain: Status: Acute Plan 71-year-old female past medical history of diabetes on oral agents, HTN controlled on losartant, HLD on no meds, degenerative disc disease, hyPothyroidism from thryoid removal from a cold nodule, panic attack, COVID-19 positive on 06/10/22 and was prescribed Paxlovid here with panic attack and found to have Hyponatremia 1/Hyponatremia--acute likely hypovelemic type related to covid 19--has improved -allow liberalization of free water intake -Nephro input noted 2/Panick attack-- calm, continue home meds 3/ HTN--contnue Losartan 4/ diabetes--Metformin and Glipizide if eating regular meals, SSI and diabetic diet 5/Hypothyroidism--check TSH, continue LT4 6/ GERD--PPI 7/Covid 19--assymptomatic, no specific treatment indicated at this time. Quality Stroke Does the patient have a stroke diagnosis?: No VTE Prior VTE?: No VTE Risk Level:: Medical - moderate - high VTE Device Contraindication: Treatment Not Indicated VTE Drug Contraindication: N/A - Med Ordered
--- NOTE | 2022-06-18 11:22 | PC.NURSE ---
pt getting dressed, reports, I'm going home . MD Vences made aware
--- NOTE | 2022-06-18 13:55 | MHC.CM.PN ---
CASE MANAGEMENT ATTEMPTED TO MEET WITH PATIENT UPON ENTERING ROOM, PATIENT HAS ALREADY DC HOME. RN AWARE NO IMM GIVEN
--- NOTE | 2022-06-18 15:34 | PM.DS ---
DS: Providers Provider Date of Service: 06/18/22 Date of admission: 06/17/22 13:01 Primary care physician: Maren Hough MD Consults: 06/17/22 13:04 Consult to Nephrology Routine Consulting Provider: Lai Dewey Reason for consultation: hyponatremia Has provider been notified: No DS: Diagnosis Discharge Diagnosis (1) Epigastric pain: Status: Acute DS: Summary Hospital Course Hospital Course: Chief Complaint: anxiety 71-year-old female past medical history of diabetes on oral agents,? HTN controlled on losartant, HLD on no meds, degenerative disc disease, hyPothyroidism from thryoid removal from a cold nodule, panic attack, COVID-19 positive on 06/10/22? and was prescribed Paxlovid and only took one dose and had abdominal issues including? epigastric pain, nausea, mild diarrhea, and decreased p.o. intake x1 week that she attributes to Paxlovid and therefore only took one dose and has been feeling very anxious that things will go wrong as past experienced following hospitalization.? Denies fever, chills, cough, chest pain, shortness of breath, vomiting, dysuria/hematuria. She is found to have incidental Hypoatremia with sodium of 123 with no apparaent associated symptoms. Hospital course: Patient was admitted overnight and by next day was feeling much better, improved sodium, assymptomatic with covid and wanted to go home. Final diagnosis anxiety atypical chest pain hyponatremia Time Spent with Patient Time attestation: Total time spent providing and/or coordinating discharge services: Discharge coordination time: Less than 30 minutes Quality: Safe Use of Opioids Does Pt have an Active Cancer Diagnosis on the Problem List?: No Quality: Stroke Does the patient have a stroke diagnosis?: No Physical Exam Vital Signs: Vital Signs: Last Vital Signs Temp 98.4 F 06/18/22 05:39 Pulse 64 06/18/22 05:39 Resp 14 06/18/22 05:39 BP 134/72 06/18/22 05:39 Pulse Ox 98 06/18/22 05:39 O2 Del Method 06/18/22 05:39 BMI result Body Mass Index 27.4 Discharge Plan Discharge Anticipated Discharge Date/Time: 06/18/22 13:33 Patient Disposition: Home Health Service Discharge Diagnosis: HypOnatremia, covid, decrease oral intake Referrals: Maren Hough MD [Primary Care Provider] - 1 Week Discharge Medications: Continued levothyroxine [Synthroid] 125 mcg tablet 1 tab PO SUTUTHSA@0600 multivitamin with folic acid [Daily-Saadia (with folic acid)] 400 mcg tablet 1 tab PO DAILY levothyroxine [Synthroid] 137 mcg tablet 1 tab PO MOWEFR@0600 ascorbic acid (vitamin C) 1,000 mg Tablet 1,000 mg PO DAILY omeprazole 40 mg capsule,delayed release(DR/EC) 40 mg PO DAILY PRN (Reason: Indigestion) cholecalciferol (vitamin D3) 25 mcg (1,000 unit) capsule 25 mcg PO DAILY glipizide 10 mg tablet 10 mg PO BID cetirizine 10 mg tablet 10 mg PO DAILY PRN (Reason: Allergic Symptoms) aspirin 81 mg tablet,delayed release (DR/EC) 81 mg PO DAILY clonidine HCl 0.1 mg tablet 0.1 mg PO DAILY PRN (Reason: Panic Attack(S)) cyclobenzaprine 10 mg tablet 10 mg PO DAILY PRN (Reason: Spasms) losartan 100 mg tablet 50 mg PO DAILY metformin 500 mg tablet 500 mg PO BID No Action ciprofloxacin HCl [Cipro] 500 mg tablet 500 mg PO BID Qty: 14 0RF Discharge Orders: Discharge Order (Routine); Ordered 06/18/22 Ordered By: Andres Vences Diet: Advance to usual diet Activity on Discharge: As tolerated Stand Alone Forms: Patient Portal Discharge page Care Plan Goals: full recovery from covid full recovery from hyponatremia Health Concerns: HypOnatremia covid Plan of Treatment: Drink plenty of water, follow up with your Doctor in a week, call for appointment Assessment: As above Discharge Date/Time: 06/18/22 17:34
== END 2022-06-18 17:34 | disposition home health service (06) | DRG 640 ==
LOC: HO.ED 13:10 → HO.EDOVER 13:14
PROVIDERS: Physician Assistant; Admitting Provider Internal Medicine; Emergency Provider Emergency Medicine; PCP Student in an Organized Health Care Education/Training Program; Visit Provider Internal Medicine
DX: E87.1 Hypo-osmolality and hyponatremia (principal); U07.1 COVID-19; E03.9 Hypothyroidism, unspecified; E78.5 Hyperlipidemia, unspecified; I10 Essential (primary) hypertension; K21.9 Gastro-esophageal reflux disease without esophagitis; F41.0 Panic disorder [episodic paroxysmal anxiety]; Z91.013 Allergy to seafood; Z88.5 Allergy status to narcotic agent; Z88.6 Allergy status to analgesic agent; Z88.8 Allergy status to other drugs, medicaments and biological substances; Z79.82 Long term (current) use of aspirin; Z79.84 Long term (current) use of oral hypoglycemic drugs; Z79.890 Hormone replacement therapy; Z79.899 Other long term (current) drug therapy
CPT/HCPCS: 36415; 76705; 80048; 80076; 81001; 83690; 83735; 83930; 83935; 84295; 84300; 84439; 84443; 85025; 87086; 87635; 93005; 99285; J1650; J2405

== ENCOUNTER 2022-07-06 16:13 | Emergency (ER) | payer MEDICARE, SELFPAY ==
[2022-07-06 17:26] VITALS: BP 209/99; PULSE 67; RESP 18; TEMP 36.6; O2SAT 100; BMI 27.4
--- NOTE | 2022-07-06 17:34 | ED.FEMALEGU ---
HPI - Female Genitourinary General Chief complaint: Urogenital-Female Stated complaint: UTI/ Sodium level issue Time Seen by Provider: 07/06/22 18:37 Source: patient Mode of arrival: ambulatory Limitations: no limitations History of Present Illness HPI Narrative: 71-year-old female came in for evaluation of UTI patient has been on Bactrim for 3 weeks patient still having dysuria and lower back pain, patient with history of hyponatremia PCP sent her for check her serum sodium. . Patient noticed to be anxious in the emergency department with high blood pressure was given Ativan 1 mg while awaiting in the waiting room. Related Data Home Medications Medication Instructions Recorded Confirmed metformin 500 mg tablet 500 mg PO BID 08/19/20 06/17/22 cholecalciferol (vitamin D3) 25 25 mcg PO DAILY 09/18/20 06/17/22 mcg (1,000 unit) capsule glipizide 10 mg tablet 10 mg PO BID 09/18/20 06/17/22 aspirin 81 mg tablet,delayed 81 mg PO DAILY 10/08/20 06/17/22 release cetirizine 10 mg tablet 10 mg PO DAILY PRN Allergic 10/08/20 06/17/22 Symptoms clonidine HCl 0.1 mg tablet 0.1 mg PO DAILY PRN Panic Attack(S) 10/08/20 06/17/22 cyclobenzaprine 10 mg tablet 10 mg PO DAILY PRN Spasms 10/08/20 06/17/22 losartan 100 mg tablet 50 mg PO DAILY 10/08/20 06/17/22 ascorbic acid (vitamin C) 1,000 mg 1,000 mg PO DAILY 06/17/22 06/17/22 tablet levothyroxine 125 mcg tablet 1 tab PO SUTUTHSA@0600 06/17/22 06/17/22 (Synthroid) levothyroxine 137 mcg tablet 1 tab PO MOWEFR@0600 06/17/22 06/17/22 (Synthroid) multivitamin with folic acid 400 1 tab PO DAILY 06/17/22 06/17/22 mcg tablet (Daily-Saadia (with folic acid)) omeprazole 40 mg capsule,delayed 40 mg PO DAILY PRN Indigestion 06/17/22 06/17/22 release Previous Rx's Medication Instructions Recorded ciprofloxacin HCl 500 mg tablet 500 mg PO BID #14 tabs 07/06/22 (Cipro) Allergies Allergy/AdvReac Type Severity Reaction Status Date / Time gabapentin [GABAPENTIN] AdvReac Mild NAUSEA Unverified 04/06/22 16:15 acetaminophen [From PERCOCET] AdvReac Unknown VOMITTING Unverified 04/06/22 16:15 codeine [CODEINE] AdvReac Unknown VOMITTING Unverified 04/06/22 16:15 meperidine [From DEMEROL] AdvReac Unknown VOMITTING Unverified 04/06/22 16:15 morphine [MORPHINE] AdvReac Unknown CANT OPEN Unverified 04/06/22 16:15 HER EYES oxycodone [From PERCOCET] AdvReac Unknown VOMITTING Unverified 04/06/22 16:15 scallops [SCALLOPS] AdvReac Unknown ABD PAIN Unverified 04/06/22 16:15 Review of Systems Review of Systems: all other systems are reviewed and are negative Constitutional: Reports as per HPI and Reports no additional constitutional complaints Eyes: Reports as per HPI and Reports no additional eye complaints Reports system reviewed and no additional complaints, except as documented Cardiovascular: Reports as per HPI and Reports no additional cardiovascular complaints Respiratory: Reports as per HPI and Reports no additional respiratory complaints Gastrointestinal: Reports as per HPI and Reports no additional gastrointestinal complaints Genitourinary: Reports no additional female genitourinary complaints Musculoskeletal: Reports no additional musculoskeletal complaints Skin/Breast: Reports system reviewed and no additional complaints, except as docu Psychiatric: Reports no additional psychiatric complaints Endocrine: Reports no additional endocrine complaints Hematologic/Lymphatic: Reports no additional hematologic/lymphatic complaints Allergic/Immunologic: Reports no additional allergic/immunologic complaints Reports system reviewed and no additional complaints, except as documented and Reports Abnormal speech present [facility] Past Medical History Medical History DM type 2 (diabetes mellitus, type 2) HTN (hypertension) Hyperlipidemia Hypothyroid Lumbar degenerative disc disease Panic attacks Social History Social History Household Members Other:: 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 Blood pressure normal repeat blood pressure 189/80 patient has no symptoms no headache, no chest pain.. Heart rate normal. Respiration rate normal. Temperature normal. Oxygen saturation normal. Appearance: Alert. Oriented X3. No acute distress. anxious Head: Normal external exam. Normocephalic. Atraumatic. No Sousa signs noted. No raccoon eyes noted Eyes: PERRLA. EOMI. Conjunctiva and sclera normal. Eyelids normal. ENT: TM's Normal. Pharynx normal. Uvula midline. Moist mucous membranes. No trismus noted. No drooling noted. No muffled voice noted. Neck: Normal inspection. Neck supple. FROM. No adenopathy. Thyroid Normal. No meningeal signs. No neck mass noted. CVS: Normal heart rate and rhythm. Heart sound normal. No murmurs noted. Pulses normal throughout. Respiratory: No respiratory distress. Painless inspiration. Breath sounds normal. No wheezes/rales/rhonchi noted. Chest nontender. No accessory muscle usage noted or decreased air movement noted. Abdomen: Soft and nontender. Bowel sounds normal in all 4 quadrants. No distention noted. No organomegaly noted. No visible injury noted. Back: No CVA tenderness. Full range of motion noted. Skin: Skin warm and dry. Normal skin color. Normal skin turgor. No rashes/lesions/lacerations noted. Extremities: No lower extremity edema. Extremities exhibit normal range of motion. Extremities nontender. Neuro: Oriented X 3. Cranial nerve exam: II-XII are grossly intact No motor deficit. No sensory deficit. Reflexes normal. Course Course Course Narrative: 71-year-old female came in with increased urinary frequency, dysuria patient been taking Bactrim by her PCP with no improvement, patient had history of hyponatremia, labs are unremarkable, mild UTI will treat with Cipro discontinue Bactrim patient was instructed to drink plenty of fluid. Reevaluation(s) Reevaluation #1: Medications Administered Discontinued Medications Generic Name Dose Route Start Last Admin Trade Name Freq PRN Reason Stop Dose Admin Lorazepam 1 mg 07/06/22 17:33 07/06/22 18:34 Lorazepam 1 Mg Tablet PO 07/06/22 17:34 1 mg ONCE ONE Administration MDM - Female Genitourinary Lab Data Attestation: I reviewed the patient's lab results. Result diagrams: 07/06/22 17:39 07/06/22 17:39 Labs: Lab Results 07/06/22 07/06/22 07/06/22 Range/Units 17:39 17:39 17:39 WBC 10.0 (4.8-10.8) X10*3/uL RBC 3.95 L (4.20-5.50) X10*6/uL Hgb 11.8 L (12.0-16.0) g/dl Hct 35.1 L (37.0-47.0) % MCV 88.9 (80.0-98.0) fL MCH 29.9 (27.0-33.0) pg MCHC 33.6 (31.0-35.0) g/dl RDW 13.3 (11.0-16.0) % Plt Count 225 (160-400) X10*3/uL MPV 9.2 L (9.4-12.3) fL Immature Gran % (Auto) 0.3 (0.0-0.4) % Neut % (Auto) 64.3 (45-73) % Lymph % (Auto) 25.4 (20-40) % Holmes % (Auto) 6.7 (2-11) % Eos % (Auto) 2.6 (0-4) % Baso % (Auto) 0.7 (0-2) % Lymph # (Auto) 2.5 (1.2-4.9) X10*3/uL Holmes # (Auto) 0.7 (0.1-1.2) X10*3/uL Eos # (Auto) 0.3 (0.0-0.4) X10*3/uL Baso # (Auto) 0.1 (0.0-0.2) X10*3/uL Abs Immat Gran (auto) 0.03 (0.00-0.03) X10*3/uL Absolute Neuts (auto) 6.4 (2.0-8.3) x10*3/uL Absolute Nucleated RBC 0.000 (0.0-0.012) X10*3/uL Nucleated RBC % (auto) 0.0 (0.0-0.2) /100WBC Sodium 138 (135-145) mmol/L Potassium 4.5 (3.3-5.1) mmol/L Chloride 107 (96-108) mmol/L Carbon Dioxide 21 L (22-29) mmol/L Anion Gap 15 (12-20) BUN 20 H D (9-16) mg/dL Creatinine 1.07 (0.5-1.4) mg/dL Estim Creat Clear Calc 47.7 Estimated GFR 51 Random Glucose 103 (60-115) mg/dL Calcium 10.1 D (8.4-10.2) mg/dL Total Bilirubin 0.4 (0.0-1.0) mg/dL Direct Bilirubin 0.2 (0.0-0.5) mg/dL AST 22 (5-31) U/L ALT 23 (0-31) U/L Alkaline Phosphatase 74 (39-117) U/L Total Protein 7.0 (6.5-8.0) g/dL Albumin 4.5 (3.5-5.0) g/dL Urine Color Yellow Urine Appearance Clear Urine pH 5.5 (5.0-9.0) Ur Specific [place] <= 1.005 (1.005-1.025) Urine Protein Negative (Neg-Trace) mg/dL Urine Glucose (UA) Negative (Negative) mg/dL Urine Ketones Negative (Negative) mg/dL Urine Blood Negative (Negative) Urine Nitrite Negative (Negative) Ur Leukocyte Esterase Moderate (2+) H (Negative) Urine RBC 0-2 (0-2) /HPF Urine WBC 6-10 H (0-5) /HPF Ur Squamous Epith Cells 0-2 (0-2) /HPF Urine Bacteria None Seen (None Seen) Hyaline Casts 0-2 (0-2) /LPF Discharge Plan Discharge Clinical Impression: UTI (urinary tract infection) Patient Disposition: Home, Self-Care Instructions: Urinary Tract Infection in Women (ED) Prescriptions: New ciprofloxacin HCl [Cipro] 500 mg tablet 500 mg PO BID Qty: 14 0RF No Action levothyroxine [Synthroid] 125 mcg tablet 1 tab PO SUTUTHSA@0600 multivitamin with folic acid [Daily-Saadia (with folic acid)] 400 mcg tablet 1 tab PO DAILY levothyroxine [Synthroid] 137 mcg tablet 1 tab PO MOWEFR@0600 ascorbic acid (vitamin C) 1,000 mg Tablet 1,000 mg PO DAILY omeprazole 40 mg capsule,delayed release(DR/EC) 40 mg PO DAILY PRN (Reason: Indigestion) cholecalciferol (vitamin D3) 25 mcg (1,000 unit) capsule 25 mcg PO DAILY glipizide 10 mg tablet 10 mg PO BID cetirizine 10 mg tablet 10 mg PO DAILY PRN (Reason: Allergic Symptoms) aspirin 81 mg tablet,delayed release (DR/EC) 81 mg PO DAILY clonidine HCl 0.1 mg tablet 0.1 mg PO DAILY PRN (Reason: Panic Attack(S)) cyclobenzaprine 10 mg tablet 10 mg PO DAILY PRN (Reason: Spasms) losartan 100 mg tablet 50 mg PO DAILY metformin 500 mg tablet 500 mg PO BID Referrals: Maren Hough MD [Primary Care Provider] -
[2022-07-06 17:53] LABS: MANUAL DIFF FLAG NO
[2022-07-06 18:06] LABS: Basophils Absolute Auto 0.1 X10*3/uL (0.0-0.2); Basophils Percent Auto 0.7 % (0-2); Eosinophils Absolute Auto 0.3 X10*3/uL (0.0-0.4); Eosinophils Percent Auto 2.6 % (0-4); Hematocrit 35.1 % (37.0-47.0); Hemoglobin 11.8 g/dl (12.0-16.0); Imm Gran Abs Auto 0.03 X10*3/uL (0.00-0.03); Imm Gran Pct Auto 0.3 % (0.0-0.4); Lymphocytes Absolute Auto 2.5 X10*3/uL (1.2-4.9); Lymphocytes Percent Auto 25.4 % (20-40); Mean Corpuscular HGB Conc 33.6 g/dl (31.0-35.0); Mean Corpuscular Hemoglobin 29.9 pg (27.0-33.0); Mean Corpuscular Volume 88.9 fL (80.0-98.0); Mean Platelet Volume 9.2 fL (9.4-12.3); Monocytes Absolute Auto 0.7 X10*3/uL (0.1-1.2); Monocytes Percent Auto 6.7 % (2-11); Neutrophils Absolute Auto 6.4 x10*3/uL (2.0-8.3); Neutrophils Percent Auto 64.3 % (45-73); Platelet Count 225 X10*3/uL (160-400); Red Blood Count 3.95 X10*6/uL (4.20-5.50); Red Cell Distribution Width 13.3 % (11.0-16.0)
[2022-07-06 18:09] LABS: Appearance Urine Clear; Color Urine Yellow; Glucose Urine UA Negative (Negative); Leukocyte Esterase Urine Moderate (2+) (Negative); Nitrite Urine Negative (Negative); PH 5.5 (5.0-9.0); Specific Gravity - Urine <= 1.005 (1.005-1.025); UMIC TRIGGER UACC YES; Urine Blood Negative (Negative); Urine Ketones Negative (Negative); Urine Protein Negative (Neg-Trace)
[2022-07-06 18:12] LABS: Bacteria Urine None Seen (None Seen); Hyaline Casts Urine 0-2 /LPF (0-2); RBC Urine 0-2 /HPF (0-2); Squamous Epithelial Cell Urine 0-2 /HPF (0-2); UACC Culture Trigger YES
[2022-07-06 18:23] LABS: Alanine Aminotransferase 23 U/L (0-31); Albumin Level 4.5 g/dL (3.5-5.0); Alkaline Phosphatase 74 U/L (39-117); Anion Gap 15 (12-20); Aspartate Amino Transferase 22 U/L (5-31); Bilirubin Direct 0.2 mg/dL (0.0-0.5); Bilirubin Total 0.4 mg/dL (0.0-1.0); Blood Urea Nitrogen 20 mg/dL (9-16); Calcium 10.1 mg/dL (8.4-10.2); Carbon Dioxide 21 mmol/L (22-29); Chloride 107 mmol/L (96-108); Creatinine Clr Calc Pharmacy 47.7; Estimated Glomerular Filt Rate 51; Glucose Random 103 mg/dL (60-115); Potassium 4.5 mmol/L (3.3-5.1); Sodium 138 mmol/L (135-145)
[2022-07-06] MEDS: LORazepam 1 MG TABLET PO (18:34)
[2022-07-06 18:41] VITALS: BP 189/80
--- OUTSIDE RECORDS SUMMARY | 2022-07-06 18:43 | XMS_ITS | Continuity of Care Document ---
:1950 Author Organization [facility] Address [address] [place] [id number]- Care Team Providers Name Role Phone Maren Hough MD Primary Care Physician Encounter [facility] Date(s): 04/03/20 - 05/03/20 [facility] [address] [address]- [facility] Attending Physician: Lisa Arias Admitting Physician: Lisa Arias Referring Physician: AdmtrLisa Allergies, Adverse Reactions, Alerts Substance Reaction Severity Status codeine vomiting, headache Active morphine Headache and vomiting Active lisinopril cough Active gabapentin n/v headache Active shellfish Stomach pain Active Vicodin n/v headache Active Demerol HCl Headache and vomiting Active Other Food Allergy scollops Active Percocet 5/325 vomiting Active HYDROmorphone n/v headache Active oxyCODONE n/v headache Active Immunizations Given and Recorded Vaccine Date Status Refusal Reason influenza virus vaccine, inactivated 11/13/15 Given influenza virus vaccine, inactivated 05/23/14 Recorded influenza virus vaccine, inactivated1 04/09/12 Given influenza virus vaccine, inactivated2 05/27/11 Given influenza virus vaccine, inactivated3 05/13/10 Given pneumococcal 23-valent vaccine 05/29/14 Recorded Zostavax (oldterm) 04/09/12 Given Influenza Vaccine (oldterm)4 05/04/09 Given Tet/diphth/pertussis, acel (oldterm)5 12/05/08 Given Pneumococcal Vaccine (oldterm)6 07/22/08 Given Influenza Inactive (IM) (oldterm)7 07/22/08 Given 1Admin Note: VIS 7-122Admin Note: vis given Admin Note: vis given Admin Note: vis given dmin Note: [id number] Note: vis [id number] Note: vis given Medications Aspirin Low Dose 81 mg oral enteric coated tablet 1 tablet = 81 mg, By Mouth, Daily, Take daily to prevent stroke or heart attack, # 90 tablet, 4 Refills, Maintenance, 02/25/15 8:31:43, 1 tablet By Mouth Daily,x90 days,Instr:Take daily to prevent stroke or heart attack Start Date: 02/25/15 Stop Date: 05/20/16 Status: OrderedFish Oil 1 capsule, By Mouth, Daily, 0 Refills, Maintenance, 05/06/19 16:44:41 EDT Start Date: 05/06/19 Status: OrderedglipiZIDE 10 mg oral tablet, extended release 1 tablet = 10 mg, By Mouth, 2 times a day, with breakfast, DOSE INCREASE, # 60 tablet, 11 Refills, Maintenance, 06/30/15 15:31:00, ER Tablet, 1 tablet By Mouth 2 times a day,x30 days,Instr:with breakfast, DOSE INCREASE Start Date: 06/30/15 Stop Date: 06/24/16 Status: Orderedhydrochlorothiazide 25 mg oral tablet 25 mg, 1, tablet, By Mouth, Daily, # 30 tablet, Refills 0, Maintenance, 05/06/19 16:43:52 EDT Start Date: 05/06/19 Status: Orderedibuprofen 800 mg oral tablet 800 mg, 1, tablet, By Mouth, 3 times a day, take with food to prevent stomach upset, # 90 tablet, Refills 1, Tot. Refills 1, Maintenance, 02/03/16 8:59:31, Route to Pharmacy Electronically, [id number], [facility] - [address] [place] [address] Start Date: 02/03/16 Stop Date: 04/03/16 Status: OrderedLidoderm 5% film 1 patch, Topically, Daily, (remove patch(s) after 12 hours). Lidoderm brand name only. No Substitution, # 30 patch, 5 Refills, Maintenance, 11/13/15 9:53:10, 1 patch Topically Daily,x30 days,Instr:(remove patch(s) after 12 hours). Lidoderm brand name... Start Date: 11/13/15 Stop Date: 05/11/16 Status: Orderedloperamide 2 mg oral capsule 2 mg, 1, capsule, By Mouth, Every 4 hours, PRN, not to exceed 8 capsules, or 16 mg, in 24 hours, # 60 capsule, Refills 2, Tot. Refills 2, Maintenance, for loose stool, 11/13/15 9:43:21, Route to Pharmacy Electronically, [id number]... Start Date: 11/13/15 Status: Orderedlosartan 100 mg oral tablet 1 tablet = 100 mg, By Mouth, Daily, # 30 tablet, 0 Refills, Maintenance, 05/31/19 6:42:50 EDT, Tablet Start Date: 05/31/19 Status: OrderedmetFORMIN 500 mg oral tablet 1 tablet = 500 mg, By Mouth, 2 times a day, # 180 tablet, 0 Refills, Maintenance, 05/06/19 16:44:08 EDT, Tablet Start Date: 05/06/19 Status: OrderedSynthroid 0.125 mg oral tablet See Instructions, Two days of 0.125mg, then one day of 0.137mg, then 2 days of 0.125mg, then 1 day 0.137mg, # 30 tablet, 5 Refills, Maintenance, 04/11/16 13:59:17, Tablet Start Date: 04/11/16 Status: OrderedSynthroid 137 mcg (0.137 mg) oral tablet See Instructions, Two days of 0.125mg, then one day of 0.137mg, then 2 days of 0.125mg, then 1 day 0.137mg, # 30 tablet, 0 Refills, Maintenance, 04/11/16 13:59:04, Tablet Start Date: 04/11/16 Status: OrderedTrue 2 go Test Test Strips True 2 go Test Test Strips, See Instructions, # 100 each, Refills 11, Tot. Refills 11, Maintenance, use to test blood sugar three times a day dx: dm uncontrolled : 250.02, 05/26/16 16:16:32, Compound Start Date: 05/26/16 Status: OrderedTrue 2 go Test Test Strips True 2 go Test Test Strips, See Instructions, # 100 each, Refills 4, Tot. Refills 4, Maintenance, use to test blood sugar three times a day dx: dm uncontrolled : 250.02, 08/12/15 14:23:25, Compound Start Date: 08/12/15 Status: OrderedTrue 2 go Lancets True 2 go Lancets, See Instructions, # 150 each, Refills 11, Tot. Refills 11, Maintenance, use to test blood sugar four times a day due to labile blood sugars Diag:DM uncontrolled 250.02, 11/30/15 11:19:43, Compound Start Date: 11/30/15 Status: OrderedTrue to Go True to Go, See Instructions, # 1 each, Refills 0, Tot. Refills 0, Maintenance, use to test blood sugar TID DX: DM type 2 ICD-9: 250.00, 02/25/15 9:53:19, Compound Start Date: 02/25/15 Status: OrderedVitamin D3 1000 intl units oral capsule See Instructions, take daily to maintain vitamin d level, # 90 capsule, 4 Refills, Maintenance, 12/09/15 15:27:17 Start Date: 12/09/15 Status: Ordered Problem List Condition Effective Dates Status Health Status Informant Colonoscopy normal(Confirmed)1, 2 Active Diabetes mellitus type 2(Confirmed)3, Active 4 Diabetic neuropathy(Confirmed)5, 6 Active Essential hypertension(Confirmed) Active Hypothyroidism(Confirmed) Active Chronic meniscal tear of Active knee(Confirmed)7 1correction: repeat in 10 yrs, . Repeat in 1 [id number] metformin again. 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 There continues to be EMG evidence ofchronic denervation symmetrically effecting distal greater than proximal muscles, consistent with the underlying polyneuropathy. Results are little changed since previous electrodiagnostic study of 07/06/2011. 6 sensory motor polyneuropathy [place] [id number], following with Dr Norwood at [facility] Social History Social History Type Response Smoking Status Never smoker entered on: 08/12/14 Sex
== END 2022-07-06 18:58 | disposition home or self-care (01) ==
PROVIDERS: Emergency Provider Emergency Medicine; PCP Student in an Organized Health Care Education/Training Program
DX: N39.0 Urinary tract infection, site not specified (principal); F41.9 Anxiety disorder, unspecified; E11.9 Type 2 diabetes mellitus without complications; I10 Essential (primary) hypertension; E78.5 Hyperlipidemia, unspecified; Z79.84 Long term (current) use of oral hypoglycemic drugs; Z79.82 Long term (current) use of aspirin; Z79.899 Other long term (current) drug therapy
CPT/HCPCS: 36415; 80048; 80076; 81001; 85025; 87086; 99283

== ENCOUNTER 2023-05-08 10:57 | Outpatient (REF) | payer MEDICARE, SELFPAY ==
[2023-05-08 13:47] LABS: MANUAL DIFF FLAG NO
[2023-05-08 13:56] LABS: Basophils Absolute Auto 0.1 X10*3/uL (0.0-0.2); Basophils Percent Auto 1.2 % (0-2); Eosinophils Absolute Auto 0.7 X10*3/uL (0.0-0.4); Eosinophils Percent Auto 7.8 % (0-4); Hematocrit 37.9 % (37.0-47.0); Hemoglobin 12.6 g/dl (12.0-16.0); Imm Gran Abs Auto 0.03 X10*3/uL (0.00-0.03); Imm Gran Pct Auto 0.3 % (0.0-0.4); Lymphocytes Absolute Auto 2.9 X10*3/uL (1.2-4.9); Lymphocytes Percent Auto 33.4 % (20-40); Mean Corpuscular HGB Conc 33.2 g/dl (31.0-35.0); Mean Corpuscular Hemoglobin 29.5 pg (27.0-33.0); Mean Corpuscular Volume 88.8 fL (80.0-98.0); Mean Platelet Volume 9.5 fL (9.4-12.3); Monocytes Absolute Auto 0.6 X10*3/uL (0.1-1.2); Neutrophils Absolute Auto 4.3 x10*3/uL (2.0-8.3); Neutrophils Percent Auto 50.3 % (45-73); Platelet Count 266 X10*3/uL (160-400); Red Blood Count 4.27 X10*6/uL (4.20-5.50); White Blood Count 8.6 X10*3/uL (4.8-10.8)
[2023-05-08 14:54] LABS: Alanine Aminotransferase 18 U/L (0-31); Albumin Level 4.4 g/dL (3.5-5.0); Alkaline Phosphatase 70 U/L (39-117); Anion Gap 9 (12-20); Aspartate Amino Transferase 22 U/L (5-31); Bilirubin Direct 0.2 mg/dL (0.0-0.5); Bilirubin Total 0.5 mg/dL (0.0-1.0); Blood Urea Nitrogen 14 mg/dL (9-16); Calcium 10.1 mg/dL (8.4-10.2); Carbon Dioxide 24 mmol/L (22-29); Chloride 108 mmol/L (96-108); Cholesterol 198 mg/dL (<200); Estimated Glomerular Filt Rate 53; Glucose Random 208 mg/dL (60-115); HDL Cholesterol 55 mg/dL (>40); LDL Cholesterol Calculated 121 mg/dL (<100); Potassium 4.4 mmol/L (3.3-5.1); Sodium 137 mmol/L (135-145); TSH reflex Free T4 0.53 uIU/mL (0.32-4.0); Total Protein 7.1 g/dL (6.5-8.0); Triglycerides 110 mg/dL (<150); Vitamin D 25-OH Total 84.6 ng/mL (>30)
[2023-05-08 15:07] LABS: Estimated Average Glucose 128 mg/dL; Hemoglobin A1C 150.2688 umol/L; Hemoglobin A1c % 6.1 % (<6.0)
== END 2023-05-08 10:58 | disposition home or self-care (01) ==
LOC: HO.HHCL 10:57
PROVIDERS: Visit Provider Internal Medicine
DX: E11.42 Type 2 diabetes mellitus with diabetic polyneuropathy (principal)
CPT/HCPCS: 36415; 80048; 80061; 80076; 82306; 83036; 84443; 85025

== ENCOUNTER 2023-10-10 12:39 | Outpatient (REF) | payer MEDICARE, SELFPAY ==
[2023-10-10 14:49] LABS: MANUAL DIFF FLAG NO
[2023-10-10 14:52] LABS: Basophils Absolute Auto 0.1 X10*3/uL (0.0-0.2); Basophils Percent Auto 0.9 % (0-2); Eosinophils Absolute Auto 0.5 X10*3/uL (0.0-0.4); Eosinophils Percent Auto 5.9 % (0-4); Hematocrit 36.6 % (37.0-47.0); Hemoglobin 12.3 g/dl (12.0-16.0); Imm Gran Abs Auto 0.03 X10*3/uL (0.00-0.03); Imm Gran Pct Auto 0.4 % (0.0-0.4); Lymphocytes Absolute Auto 2.5 X10*3/uL (1.2-4.9); Lymphocytes Percent Auto 31.3 % (20-40); Mean Corpuscular HGB Conc 33.6 g/dl (31.0-35.0); Mean Corpuscular Hemoglobin 29.4 pg (27.0-33.0); Mean Corpuscular Volume 87.4 fL (80.0-98.0); Mean Platelet Volume 9.5 fL (9.4-12.3); Monocytes Absolute Auto 0.5 X10*3/uL (0.1-1.2); Neutrophils Absolute Auto 4.5 x10*3/uL (2.0-8.3); Neutrophils Percent Auto 55.5 % (45-73); Platelet Count 252 X10*3/uL (160-400); Red Blood Count 4.19 X10*6/uL (4.20-5.50); Red Cell Distribution Width 12.8 % (11.0-16.0)
[2023-10-10 15:23] LABS: Alanine Aminotransferase 16 U/L (0-31); Albumin Level 4.1 g/dL (3.5-5.0); Alkaline Phosphatase 67 U/L (39-117); Anion Gap 11 (12-20); Aspartate Amino Transferase 18 U/L (5-31); Bilirubin Total 0.5 mg/dL (0.0-1.0); Blood Urea Nitrogen 17 mg/dL (9-16); Calcium 9.5 mg/dL (8.4-10.2); Carbon Dioxide 22 mmol/L (22-29); Chloride 108 mmol/L (96-108); Estimated Glomerular Filt Rate > 60; Glucose Fasting 176 mg/dL (60-99); Potassium 3.9 mmol/L (3.3-5.1); Sodium 137 mmol/L (135-145)
[2023-10-10 15:39] LABS: Vitamin B12 1388 pg/mL (200-900)
[2023-10-10 15:42] LABS: TSH reflex Free T4 0.35 uIU/mL (0.32-4.0)
== END 2023-10-10 12:40 | disposition home or self-care (01) ==
LOC: HO.CHCLDS 12:39
PROVIDERS: Visit Provider Internal Medicine
DX: R20.2 Paresthesia of skin (principal)
CPT/HCPCS: 36415; 80053; 82607; 84207; 84443; 85025

== ENCOUNTER 2024-02-19 11:05 | Outpatient (REF) | payer MEDICARE, SELFPAY ==
--- NOTE | ~2024-02-19 | XR_ITS ---
EXAMINATION: BILATERAL TOES CLINICAL INFORMATION: A heavy object rolled over the toes. COMPARISON: None available. TECHNIQUE: 5 views right toes, 3 views left toes FINDINGS: Right: A screw is present through the fifth metatarsal. Some minimal degenerative changes are present at the interphalangeal joints and first MTP joint. No fractures or bony destruction. Left: Some minimal degenerative changes are present at the interphalangeal joints and first MTP joint. No fractures or bony destruction. XR/XR toe RT min 2V IMPRESSION: No evidence of an acute osseous injury. Mild degenerative changes as described above.
--- NOTE | ~2024-02-19 | XR_ITS ---
EXAMINATION: BILATERAL TOES CLINICAL INFORMATION: A heavy object rolled over the toes. COMPARISON: None available. TECHNIQUE: 5 views right toes, 3 views left toes FINDINGS: Right: A screw is present through the fifth metatarsal. Some minimal degenerative changes are present at the interphalangeal joints and first MTP joint. No fractures or bony destruction. Left: Some minimal degenerative changes are present at the interphalangeal joints and first MTP joint. No fractures or bony destruction. XR/XR toe LT min 2V IMPRESSION: No evidence of an acute osseous injury. Mild degenerative changes as described above.
== END 2024-02-19 11:06 | disposition home or self-care (01) ==
LOC: HO.HHCX 11:05
PROVIDERS: Visit Provider Registered Nurse
DX: M79.675 Pain in left toe(s) (principal); L03.90 Cellulitis, unspecified
CPT/HCPCS: 73660

== ENCOUNTER 2024-02-24 11:45 | Outpatient (AMB) | payer MEDICARE, SELFPAY ==
--- NOTE | 2024-02-24 11:51 | AM.OFFWIN_ITS ---
Intake Vital Signs 02/24/24 11:54 Height 5 ft 4 in Weight 163 lb BMI 28.0 BP 136/84 Blood Pressure Location Rt brachial Position Sitting Pulse 70 Pulse Source Pulse Oximeter Temp 98.9 F Temp Source Oral Pulse Oximetry (%) 98 Oxygen Delivery Method Room Air Intake Visit Reasons: EP redness/skin rash itchy face/arms Intake Note: pt here c/o redness, itchy skin rash on face and arms Patient Tobacco Use Status: Never used Tobacco Allergies gabapentin [GABAPENTIN] Adverse Reaction (Mild, Verified 02/24/24 11:52) NAUSEA acetaminophen [From PERCOCET] Adverse Reaction (Unknown, Verified 02/24/24 11:52) VOMITTING codeine [CODEINE] Adverse Reaction (Unknown, Verified 02/24/24 11:52) VOMITTING meperidine [From DEMEROL] Adverse Reaction (Unknown, Verified 02/24/24 11:52) VOMITTING morphine [MORPHINE] Adverse Reaction (Unknown, Verified 02/24/24 11:52) CANT OPEN HER EYES oxycodone [From PERCOCET] Adverse Reaction (Unknown, Verified 02/24/24 11:52) VOMITTING scallops [SCALLOPS] Adverse Reaction (Unknown, Verified 02/24/24 11:52) ABD PAIN Do you need a note to return to daycare/school/sports/work: No HPI EP redness/skin rash itchy face/arms HPI Details Patient is a 73-year-old female comes to the walk-in clinic very anxious about feeling itchy on her face and arms for the last few days. She does not report known history of skin issues, denies fever or chills, body aches, joint swelling, nausea vomiting or diarrhea, fatigue, myalgias or malaise, trouble swallowing, throat tightening, cough or shortness of breath, chest pain or discomfort, vision changes or swollen eyes, or other significant associated symptoms or conditions. She identifies no recent change of body products, foods or obvious sources. She is questioning if she has some form of cancer. 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 Tobacco Use Status: Never used Tobacco Review of Systems Const All systems reviewed & are unremarkable except as noted in HPI and below Physical Exam Vital Signs: Last Vital Signs Temp 98.9 F 02/24/24 11:54 Pulse 70 02/24/24 11:54 BP 136/84 02/24/24 11:54 Pulse Ox 98 02/24/24 11:54 Oxygen Delivery Method Room Air 02/24/24 11:54 BMI result Body Mass Index 28.0 Const General: cooperative, healthy appearing, comfortable, no acute distress, alert, awake, Physically active, anxious (Very anxious) and well groomed; No diaphoretic, ill appearing, intoxicated appearing, poor hygiene or tired appeari ng Nutritional Appearance: average body habitus Orientation/consciousness: patient oriented x3 Limitations: no limitations HEENT Head: Yes normal to inspection, Yes normocephalic and Yes atraumatic General nose exam: Normal external nose present, Normal nares present, No nasal polyps present, Normal nasal mucous membranes and turbinates present, Normal septum present and No nasal discharge present Face and sinus: Yes normal facial exam, Yes sinuses nontender and Yes face symmetric Mouth: Normal oral and palatal mucosa present, lip normal and tongue normal Throat: Yes posterior oropharynx normal, No peritonsillar mass, No postnasal drainage, No uvular edema and No cobblestoning Eyes General: appearance normal, both eyes and all related structures Neck Neck: Yes normal visual inspection, Yes no lymphadenopathy, Yes trachea midline, Yes supple and No anterior neck swelling Chest Chest palpation & inspection: normal palpation of entire chest wall Resp Effort & Inspection: normal respiratory effort Cardio Palpation: normal PMI Rate: regular rate Rhythm: regular rhythm Heart sounds: S1 normal heart sound present and S2 normal heart sound present Skin Other: Good color, warm and dry Neuro General: patient oriented x3 Psych Appearance: grossly normal Mental Status: mental status grossly normal Speech and movement: Normal speech and movement present Affect: Anxious affect present Attitude: cooperative Thought process: Normal thought process present Insight: Good insight present (Psych) Judgement: Fair judgement present (Psych) Assessment & Plan Assessment & Plan (1) Pruritus of skin: Code(s): L29.9 - Pruritus, unspecified Plan: Patient with possible tinea versicolor, no visible rash or lesions, and no other associated findings apparent. I reassured her that there is no reason to believe she has cancer just based on having itchy skin. Will trial selenium sulfide shampoo [id number] and if symptoms persist she can change to ketoconazole shampoo that I wrote for. If symptoms still persist, she should follow up with PCP or technical project manager. Medications: New ketoconazole 2% Apply soap to affected areas and wash off with copious water after 5 minutes. Use for 3 days. 1 appl topical DAILY 120 mL 0RF itchy skin 3 days Coding Level of Care Code Est Pt Level 4 (95533) Diagnoses Pruritus of skin L29.9
[2024-02-24 11:54] VITALS: BP 136/84; PULSE 70; TEMP 37.2; O2SAT 98; BMI 28.0
== END 2024-02-24 13:42 | disposition home or self-care (01) ==
PROVIDERS: PCP Family Medicine; Visit Provider Physician Assistant Medical
DX: L29.9 Pruritus, unspecified (principal)
CPT/HCPCS: 99214

== ENCOUNTER 2024-03-29 09:38 | Outpatient (REF) | payer MEDICARE, SELFPAY ==
[2024-03-29 14:27] LABS: Anion Gap 11 (12-20); Blood Urea Nitrogen 15 mg/dL (9-16); Calcium 9.3 mg/dL (8.4-10.2); Carbon Dioxide 22 mmol/L (22-29); Chloride 96 mmol/L (96-108); Estimated Glomerular Filt Rate > 60; Glucose Random 241 mg/dL (60-115); Magnesium 1.8 mg/dL (1.6-2.6); Potassium 4.5 mmol/L (3.3-5.1); Sodium 124 mmol/L (135-145)
[2024-03-29 14:42] LABS: TSH reflex Free T4 0.53 uIU/mL (0.32-4.0)
== END 2024-03-29 09:39 | disposition home or self-care (01) ==
LOC: HO.CHCLDS 09:38
PROVIDERS: Visit Provider Registered Nurse
DX: Z13.89 Encounter for screening for other disorder (principal)
CPT/HCPCS: 36415; 80048; 83735; 84443

== ENCOUNTER 2024-03-29 16:15 | Emergency (ER) | payer MEDICARE, SELFPAY ==
[2024-03-29 16:36] VITALS: BP 180/72; PULSE 69; RESP 18; TEMP 37.2; O2SAT 98; BMI 27.8
--- NOTE | 2024-03-29 16:39 | ED.GENADULT ---
HPI - General Adult General Chief complaint: Recheck/Abnormal Lab/Rx Stated complaint: sodium 124, HTN, panic attacks Time Seen by Provider: 03/30/24 00:39 History of Present Illness ED Provider: Parker WRIGHT narrative: The patient is a 73-year-old woman who was not feeling well today. She went to the [facility] and had outpatient lab work done that showed a sodium of 124. Additionally the patient has had some urinary symptoms. She was advised to come to the emergency room because of her low-sodium. Patient has recently had 2 cataract surgeries. She had a surgery done about 2 weeks ago on 1 eye and a surgery done about a week ago on the other eye. She feels that she has been having panic attacks since the surgeries. No fever, sweats, chills. Related Data Home Medications ?Medication ?Instructions ?Recorded ?Confirmed losartan 100 mg tablet 50 mg PO DAILY 10/08/20 06/17/22 amlodipine 5 mg tablet 5 mg PO DAILY 02/24/24 ascorbic acid (vitamin C) 1,000 mg 1 g PO Q6H 02/24/24 capsule ascorbic acid (vitamin C) 500 mg PO 02/24/24 chewable tablet (Vitamin C) aspirin 81 mg chewable tablet 1 tab PO DAILY 02/24/24 cholecalciferol (vitamin D3) 50 50 mcg PO DAILY 02/24/24 mcg (2,000 unit) capsule cyanocobalamin (vitamin B-12) 500 500 mcg PO DAILY 02/24/24 mcg tablet fluticasone propionate 50 spray intranasal 02/24/24 mcg/actuation nasal spray,suspension ketorolac 0.5 % eye drops drp ophthalmic (eye) 02/24/24 multivitamin 1 tab PO DAILY 02/24/24 mupirocin 2 % topical ointment 1 appl topical BID-TID 02/24/24 spironolactone 25 mg tablet 25 mg PO DAILY 02/24/24 Previous Rx's ?Medication ?Instructions ?Recorded ketoconazole 2 % shampoo 1 appl topical DAILY itchy skin 3 02/24/24 days #120 mL nitrofurantoin 100 mg PO BID #14 caps 03/30/24 monohydrate/macrocrystals 100 mg capsule (Macrobid) Allergies Allergy/AdvReac Type Severity Reaction Status Date / Time gabapentin [GABAPENTIN] AdvReac Mild NAUSEA Verified 03/29/24 16:43 acetaminophen [From PERCOCET] AdvReac Unknown VOMITTING Verified 03/29/24 16:43 codeine [CODEINE] AdvReac Unknown VOMITTING Verified 03/29/24 16:43 meperidine [From DEMEROL] AdvReac Unknown VOMITTING Verified 03/29/24 16:43 morphine [MORPHINE] AdvReac Unknown CANT OPEN Verified 03/29/24 16:43 HER EYES oxycodone [From PERCOCET] AdvReac Unknown VOMITTING Verified 03/29/24 16:43 scallops [SCALLOPS] AdvReac Unknown ABD PAIN Verified 03/29/24 16:43 Review of Systems Review of Systems: Yes all other systems are reviewed and are negative PMFSH Past Medical History Medical History Lumbar degenerative disc disease Panic attacks Hypothyroid Hyperlipidemia HTN (hypertension) DM type 2 (diabetes mellitus, type 2) Social History Social History Household Members Other:: 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, 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1 F 98.0 F Pulse Rate 50 53 54 Respiratory Rate 13 14 14 Blood Pressure 172/72 H 158/64 H Pulse Oximetry 98 99 98 Oxygen Delivery Method Room Air Room Air Room Air 03/30/24 06:10 Temperature 98.0 F Pulse Rate 54 Respiratory Rate 14 Blood Pressure 158/64 H Pulse Oximetry 98 Oxygen Delivery Method Room Air BMI result Body Mass Index 27.8 Const Other: The patient is a 73-year-old woman who is awake, alert, pleasant, cooperative. She looks younger than her age. She does not appear in acute distress in anyway. She describes feeling very anxious, however. HENMT Head: Yes normal to inspection Face and sinus: Yes normal facial exam and Yes face symmetric Mouth: Normal oral and palatal mucosa present Eyes General: appearance normal, both eyes and all related structures Alignment and Position: alignment normal Eyelids: Yes eyelids normal Conjunctivae: conjunctivae normal Pupils: Equal, round and reactive pupils present EOM: EOMs intact bilaterally Neck Neck: Yes full ROM, Yes no lymphadenopathy and Yes no meningeal signs Resp Effort & Inspection: normal respiratory effort Auscultation: clear to auscultation bilaterally Cardio Rate: regular rate Rhythm: regular rhythm Heart sounds: S1 normal heart sound present and S2 normal heart sound present GI Other: Nontender Palpation (GI): Soft to palpation Skin General skin exam: no rashes or lesions noted and turgor normal Neuro Other: The patient is awake and alert. Orientation is normal. Cognition is normal. Cranial nerves are grossly intact. She moves her extremities normally. She has a normal gait. She is grossly neurologically intact. General: no meningeal signs Cranial nerves: Yes Equal, round and reactive pupils present Extrem General: Yes normal to inspection, Yes full ROM, Yes no pedal edema and Yes no calf tenderness Course Course Course Narrative: This is an RME: Additional HPI, ROS, PE not included below will be deferred to primary provider. RME assessment and note performed by: Phyllis Stephenson PA-C This is a 71-year-old female past medical history of diabetes HTN, HLD, degenerative disc disease, panic attack, who presents to the ER with a complaint of hyponatremia and UTI. Plan: Labs, UA Medications Administered Discontinued Medications Generic Name Dose Route Start Last Admin Trade Name Freq PRN Reason Stop Dose Admin Sodium Chloride 1,000 mls @ 999 mls/hr 03/30/24 01:00 03/30/24 02:03 Ns IV 03/30/24 02:00 Infused .Q1H1M OVI Infusion Nitrofurantoin Macrocrystals 100 mg 03/30/24 00:53 03/30/24 01:08 Nitrofurantoin Monohyd/M-Cryst 100 Mg Capsule PO 03/30/24 00:54 100 mg ONCE ONE Administration Medical Decision Making Medical Decision Making [facility] Narrative: The patient is a 73-year-old woman who was sent to the emergency room after being seen at her PCP's office where she was found to have a sodium of 124 and a question of a possible UTI. She describes having had two cataract surgeries in the last few weeks and has found the experience and anxiety provoking. Clinically the patient does not appear acutely in any way. She describes some mild urinary symptoms and has a mildly abnormal urinalysis possibly consistent with UTI. Her sodium here in the emergency room room is 125. She has had problems with some degree of hyponatremia in the past. She was given 1 liter of normal saline and then slept for several hours. ?On waking, she said that she felt much much better. ?my overall impression is that her hyponatremia may be related to anxiety she has had since the surgeries on her eyes. I do not think she requires hospitalization. I feel she may be discharged to rest over the weekend. She will be started on MacroBid UTI. She should increase salt in her diet. She should follow up with her PCP next week. Lab Data 03/29/24 17:55 03/29/24 17:55 Labs: Lab Results 03/29/24 03/29/24 Range/Units 17:55 21:12 WBC 10.2 (4.8-10.8) X10*3/uL RBC 4.13 L (4.20-5.50) X10*6/uL Hgb 12.4 (12.0-16.0) g/dl Hct 34.7 L (37.0-47.0) % MCV 84.0 (80.0-98.0) fL MCH 30.0 (27.0-33.0) pg MCHC 35.7 H (31.0-35.0) g/dl RDW 12.2 (11.0-16.0) % Plt Count 258 (160-400) X10*3/uL MPV 8.6 L (9.4-12.3) fL Immature Gran % (Auto) 0.4 (0.0-0.4) % Neut % (Auto) 64.7 (45-73) % Lymph % (Auto) 27.2 (20-40) % [place] % (Auto) 5.9 (2-11) % Eos % (Auto) 1.3 (0-4) % Baso % (Auto) 0.5 (0-2) % Lymph # (Auto) 2.8 (1.2-4.9) X10*3/uL [place] # (Auto) 0.6 (0.1-1.2) X10*3/uL Eos # (Auto) 0.1 (0.0-0.4) X10*3/uL Baso # (Auto) 0.1 (0.0-0.2) X10*3/uL Abs Immat Gran (auto) 0.04 H (0.00-0.03) X10*3/uL Absolute Neuts (auto) 6.6 (2.0-8.3) x10*3/uL Absolute Nucleated RBC 0.000 (0.0-0.012) X10*3/uL Nucleated RBC % (auto) 0.0 (0.0-0.2) /100WBC Sodium 125 L (135-145) mmol/L Potassium 4.4 (3.3-5.1) mmol/L Chloride 96 (96-108) mmol/L Carbon Dioxide 22 (22-29) mmol/L Anion Gap 11 L (12-20) BUN 12 (9-16) mg/dL Creatinine 0.89 (0.5-1.4) mg/dL Estim Creat Clear Calc 56.1 Estimated GFR > 60 POC Glucose 160 H (60-115) mg/dL Random Glucose 222 H (60-115) mg/dL Calcium 9.9 D (8.4-10.2) mg/dL Magnesium 1.9 (1.6-2.6) mg/dL Total Bilirubin 0.6 (0.0-1.0) mg/dL Direct Bilirubin 0.2 (0.0-0.5) mg/dL AST 20 (5-31) U/L ALT 16 (0-31) U/L Alkaline Phosphatase 68 (39-117) U/L Troponin I High Sens < 2.7 (<3.5-17.0) ng/L Total Protein 7.0 (6.5-8.0) g/dL Albumin 4.3 (3.5-5.0) g/dL Lipase 9 (8-78) U/L Urine Color Yellow Urine Appearance Clear Urine pH 6.0 (5.0-9.0) Ur Specific [place] <= 1.005 (1.005-1.025) Urine Protein Negative (Neg-Trace) mg/dL Urine Glucose (UA) 100 H (Negative) mg/dL Urine Ketones Negative (Negative) mg/dL Urine Blood Negative (Negative) Urine Nitrite Negative (Negative) Ur Leukocyte Esterase Moderate (2+) H (Negative) Urine RBC 0-2 (0-2) /HPF Urine WBC 6-10 H (0-5) /HPF Ur Squamous Epith Cells 0-2 (0-2) /HPF Urine Bacteria None Seen (None Seen) Hyaline Casts 3-5 (0-2) /LPF Urine Osmolality 184 L (373-1093) mosm/kg Ur Random Sodium 33.0 mmol/L Influenza Type A (PCR) NEGATIVE (Negative) Influenza Type B (PCR) NEGATIVE (Negative) RSV RNA Qual (PCR) NEGATIVE (Negative) SARS-CoV-2 RNA (RT-PCR) NEGATIVE (Negative) Discharge Plan Discharge Clinical Impression: Hyponatremia, Urinary tract infection Patient Disposition: Home, Self-Care Instructions: Hyponatremia (ED) Additional Instructions: Please take the antibiotic prescribed 2 times a day. Please continue your other medications. Try to rest and take it easy over the next several days. Feel free to add salt to your diet. Please follow up soon with your regular doctor for a recheck. Return to the emergency room if you feel significantly worse. Prescriptions: New nitrofurantoin monohyd/m-cryst [Macrobid] 100 mg capsule 100 mg PO BID Qty: 14 0RF Rx Instructions: must administer with a meal/food No Action losartan 100 mg tablet 50 mg PO DAILY mupirocin 2 % ointment 1 appl topical BID-TID ketorolac 0.5 % drops ophthalmic (eye) spironolactone 25 mg tablet 25 mg PO DAILY amlodipine 5 mg tablet 5 mg PO DAILY fluticasone propionate 50 mcg/actuation spray,suspension intranasal ascorbic acid (vitamin C) [Vitamin C] 500 mg tablet,chewable PO cholecalciferol (vitamin D3) 50 mcg (2,000 unit) capsule 50 mcg PO DAILY cyanocobalamin (vitamin B-12) 500 mcg tablet 500 mcg PO DAILY ascorbic acid (vitamin C) 1,000 mg capsule 1 g PO Q6H aspirin 81 mg tablet,chewable 1 tab PO DAILY multivitamin Tablet 1 tab PO DAILY ketoconazole 2 % shampoo 1 appl topical DAILY 3 Days Qty: 120 0RF Rx Instructions: Apply soap to affected areas and wash off with copious water after 5 minutes. Use for 3 days. Interventions: ED Discharge Assessment Last Done: 03/30/24 06:10 Discharge Date/Time: 03/30/24 06:11 Print Language: Somali
[2024-03-29 18:04] LABS: MANUAL DIFF FLAG NO
[2024-03-29 18:22] LABS: Basophils Absolute Auto 0.1 X10*3/uL (0.0-0.2); Basophils Percent Auto 0.5 % (0-2); Eosinophils Absolute Auto 0.1 X10*3/uL (0.0-0.4); Eosinophils Percent Auto 1.3 % (0-4); Hematocrit 34.7 % (37.0-47.0); Hemoglobin 12.4 g/dl (12.0-16.0); Imm Gran Abs Auto 0.04 X10*3/uL (0.00-0.03); Imm Gran Pct Auto 0.4 % (0.0-0.4); Lymphocytes Absolute Auto 2.8 X10*3/uL (1.2-4.9); Lymphocytes Percent Auto 27.2 % (20-40); Mean Corpuscular HGB Conc 35.7 g/dl (31.0-35.0); Mean Platelet Volume 8.6 fL (9.4-12.3); Monocytes Absolute Auto 0.6 X10*3/uL (0.1-1.2); Monocytes Percent Auto 5.9 % (2-11); Neutrophils Absolute Auto 6.6 x10*3/uL (2.0-8.3); Neutrophils Percent Auto 64.7 % (45-73); Platelet Count 258 X10*3/uL (160-400); Red Blood Count 4.13 X10*6/uL (4.20-5.50); Red Cell Distribution Width 12.2 % (11.0-16.0); White Blood Count 10.2 X10*3/uL (4.8-10.8)
[2024-03-29 18:29] LABS: Alanine Aminotransferase 16 U/L (0-31); Albumin Level 4.3 g/dL (3.5-5.0); Alkaline Phosphatase 68 U/L (39-117); Anion Gap 11 (12-20); Aspartate Amino Transferase 20 U/L (5-31); Bilirubin Direct 0.2 mg/dL (0.0-0.5); Bilirubin Total 0.6 mg/dL (0.0-1.0); Blood Urea Nitrogen 12 mg/dL (9-16); Calcium 9.9 mg/dL (8.4-10.2); Carbon Dioxide 22 mmol/L (22-29); Chloride 96 mmol/L (96-108); Creatinine Clr Calc Pharmacy 56.1; Estimated Glomerular Filt Rate > 60; Glucose Random 222 mg/dL (60-115); Lipase 9 U/L (8-78); Magnesium 1.9 mg/dL (1.6-2.6); Potassium 4.4 mmol/L (3.3-5.1); Sodium 125 mmol/L (135-145)
[2024-03-29 18:33] LABS: Appearance Urine Clear; Color Urine Yellow; Glucose Urine UA 100 mg/dL (Negative); Leukocyte Esterase Urine Moderate (2+) (Negative); Nitrite Urine Negative (Negative); Specific Gravity - Urine <= 1.005 (1.005-1.025); UMIC TRIGGER UACC YES; Urine Blood Negative (Negative); Urine Ketones Negative (Negative); Urine Protein Negative (Neg-Trace)
[2024-03-29 18:38] LABS: Troponin-I High Sensitivity < 2.7 ng/L (<3.5-17.0)
[2024-03-29 18:46] LABS: Influenza A PCR NEGATIVE (Negative); Influenza B PCR NEGATIVE (Negative); Resp Syncy Virus RNA Qual PCR NEGATIVE (Negative); SARS COV2 PCR INHOUSE NEGATIVE (Negative)
[2024-03-29 18:49] LABS: Bacteria Urine None Seen (None Seen); RBC Urine 0-2 /HPF (0-2); Squamous Epithelial Cell Urine 0-2 /HPF (0-2); UACC Culture Trigger YES
[2024-03-29 20:44] VITALS: BP 183/75; PULSE 57; RESP 16; O2SAT 98
[2024-03-29 21:15] LABS: Glucose, Whole Blood 160 mg/dL (60-115)
--- NOTE | 2024-03-29 21:42 | PC.NURSE ---
Patient very anxious, recently had cataract surgery, unclear if patient has restarted all her home meds, very upset about whole cataract experience, hypertensive. Resting quietly on stretcher waiting for provider at this time
[2024-03-30 00:27] VITALS: BP 140/64; PULSE 59; RESP 12; TEMP 36.6; O2SAT 98
[2024-03-30] MEDS: Nitrofurantoin Monohyd/M-Cryst 100 MG CAPSULE PO (01:08)
[2024-03-30] MEDS: 0.9 % Sodium Chloride 1,000 ML 999 ML IV (01:08)
[2024-03-30 01:19] LABS: Osmolality Urine 184 mosm/kg (373-1093)
[2024-03-30 02:23] VITALS: PULSE 50; RESP 13; O2SAT 98
[2024-03-30 05:05] VITALS: BP 172/72; PULSE 53; RESP 14; TEMP 36.7; O2SAT 99
[2024-03-30 06:07] VITALS: BP 158/64; PULSE 54; RESP 14; TEMP 36.7; O2SAT 98
[2024-03-30 06:10] VITALS: BP 158/64; PULSE 54; RESP 14; TEMP 36.7; O2SAT 98
== END 2024-03-30 06:11 | disposition home or self-care (01) ==
PROVIDERS: Physician Assistant Medical; Emergency Provider Emergency Medicine; PCP Family Medicine
DX: E87.1 Hypo-osmolality and hyponatremia (principal); N39.0 Urinary tract infection, site not specified; Z03.818 Encounter for observation for suspected exposure to other biological agents ruled out; F41.9 Anxiety disorder, unspecified; E11.9 Type 2 diabetes mellitus without complications; I10 Essential (primary) hypertension; E78.5 Hyperlipidemia, unspecified; Z79.899 Other long term (current) drug therapy; Z79.82 Long term (current) use of aspirin
CPT/HCPCS: 0241U; 36415; 80048; 80076; 81001; 82947; 83690; 83735; 83935; 84300; 84443; 84484; 85025; 87086; 96360; 99284; 99285

== ENCOUNTER 2024-04-08 15:03 | Outpatient (REF) | payer MEDICARE, SELFPAY ==
[2024-04-08 17:59] LABS: Osmolality, Serum 285 mosm/kg (281-305)
[2024-04-08 18:02] LABS: Anion Gap 13 (12-20); Blood Urea Nitrogen 22 mg/dL (9-16); Calcium 10.1 mg/dL (8.4-10.2); Carbon Dioxide 22 mmol/L (22-29); Chloride 101 mmol/L (96-108); Estimated Glomerular Filt Rate > 60; Glucose Random 135 mg/dL (60-115); Potassium 4.7 mmol/L (3.3-5.1); Sodium 131 mmol/L (135-145)
== END 2024-04-08 15:04 | disposition home or self-care (01) ==
LOC: HO.CHCLDS 15:03
PROVIDERS: Visit Provider Internal Medicine
DX: E87.1 Hypo-osmolality and hyponatremia (principal)
CPT/HCPCS: 36415; 80048; 83930; 84300

== ENCOUNTER 2024-04-20 08:40 | Outpatient (REF) | payer MEDICARE, SELFPAY | END 2024-04-20 08:41 | disposition home or self-care (01) | LOC: HO.HMGCLNP 08:40 | PROVIDERS: Visit Provider Internal Medicine | DX: N30.00 Acute cystitis without hematuria (principal) | CPT/HCPCS: 87086 ==

== ENCOUNTER 2024-05-09 20:12 | Emergency (ER) | payer MEDICARE, SELFPAY ==
[2024-05-09 20:44] VITALS: BP 208/101; PULSE 68; RESP 16; TEMP 36.7; O2SAT 99; BMI 29.1
[2024-05-09 21:48] VITALS: BP 201/88; PULSE 65; RESP 18; O2SAT 100
[2024-05-09 22:37] LABS: IDNOW Serial# 6674DD1D; Strep A Nucleic Acid Negative (Negative)
--- NOTE | 2024-05-10 03:12 | PC.NURSE ---
between 299 and 304 the pt was noted to present to the triage nurse to make them aware of the prolonged wait time and length of stay in the department (from original presentation to now). 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 Pt was well appearing, alert, oriented, conversing in full/complete sentences and managing her airway/saliva without issue or concern. The pt left out of the ed despite staff's attempted to encourage her to stay. Pt was unable to be removed from the tracker prior to Dr. Ennis assignment so out time reflects after MD Eden sign up.
== END 2024-05-10 03:09 | disposition left against medical advice (07) ==
PROVIDERS: Internal Medicine; Emergency Provider Emergency Medicine; PCP Internal Medicine
DX: R07.0 Pain in throat (principal)
CPT/HCPCS: 87651; 99283; 99284

== ENCOUNTER 2024-05-20 08:10 | Outpatient (AMB) | payer MEDICARE, SELFPAY ==
--- NOTE | 2024-05-20 09:18 | AM.OFFWIN_ITS ---
Intake Vital Signs 05/20/24 09:19 Height 5 ft 4 in Weight 167 lb 6 oz BMI 28.7 BP 130/70 Blood Pressure Location Rt brachial Position Sitting Pulse 50 Pulse Source Pulse Oximeter Pulse Oximetry (%) 100 Oxygen Delivery Method Room Air Intake Visit Reasons: EP-UTI & sinus infection Intake Note: Patient is here today for sick visit for possible uti, and sinus infection Patient Tobacco Use Status: Never used Tobacco Pyrotechnics Press Tender Required: No Kiln Operator: Not Required per policy Accompanied by: Self / Same As Patient Allergies ciprofloxacin Allergy (Verified 05/20/24 10:07) Unknown sulfamethoxazole [From Bactrim] Allergy (Verified 05/20/24 10:07) Unknown trimethoprim [From Bactrim] Allergy (Verified 05/20/24 10:07) Unknown gabapentin [GABAPENTIN] Adverse Reaction (Mild, Verified 05/20/24 09:19) NAUSEA acetaminophen [From PERCOCET] Adverse Reaction (Unknown, Verified 05/20/24 09:19) VOMITTING codeine [CODEINE] Adverse Reaction (Unknown, Verified 05/20/24 09:19) VOMITTING meperidine [From DEMEROL] Adverse Reaction (Unknown, Verified 05/20/24 09:19) VOMITTING morphine [MORPHINE] Adverse Reaction (Unknown, Verified 05/20/24 09:19) CANT OPEN HER EYES oxycodone [From PERCOCET] Adverse Reaction (Unknown, Verified 05/20/24 09:19) VOMITTING scallops [SCALLOPS] Adverse Reaction (Unknown, Verified 05/20/24 09:19) ABD PAIN Do you need a note to return to daycare/school/sports/work: No HPI EP-UTI & sinus infection HPI Details This note is constructed using voice recognition software. While every effort has been made to ensure accuracy, broodmare barn groom errors may have been included. The patient is a 73 year old female who presents to the clinic today with complaints of possible UTI as well as sinus infection ongoing since early March. She notes that the sinuses has seemed to not get any better and she does have pressure in the maxillary area, left more than right. She notes that this has been going on approximately since she had a cataract surgery. She denies fever, chills, cough, shortness of breath. She also notes that she has been having urinary frequency, urgency for the past 2 months as well. She has been evaluated and treated in an another clinic, and initially started on Cipro, but developed an allergy, followed by Bactrim, which she also developed an allergy to. She notes that she is dealing with an excessive amount of anxiety and stress, related to at-home, finances, work, and many other issues which make it difficult for her to face when she is not feeling well. 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 Tobacco Use Status: Never used Tobacco Review of Systems Const All systems reviewed & are unremarkable except as noted in HPI and below Physical Exam Vital Signs: Last Vital Signs Pulse 50 05/20/24 09:19 BP 130/70 05/20/24 09:19 Pulse Ox 100 05/20/24 09:19 Oxygen Delivery Method Room Air 05/20/24 09:19 BMI result Body Mass Index 28.7 Const General: cooperative, healthy appearing, comfortable and no acute distress Orientation/consciousness: patient oriented x3 Limitations: no limitations HEENT Head: Yes normal to inspection Ears: hearing grossly normal bilaterally, external ears normal and TM's normal bilaterally General nose exam: Normal external nose present, Normal nares present, Abnormal mucous membranes and turbinates present erythematous and Nasal discharge present purulent Face and sinus: Yes normal facial exam and Yes sinus tenderness Mouth: Normal oral and palatal mucosa present and moist mucous membranes Throat: Yes posterior oropharynx normal, Yes tonsils normal and Yes uvula midline Eyes General: appearance normal, both eyes and all related structures Neck Neck: Yes normal visual inspection Resp Effort & Inspection: normal respiratory effort, able to speak in complete sentences, Actively coughing, no respiratory distress, not tachypneic, no tripod positioning and no use of accessory muscles Auscultation: clear to auscultation bilaterally Cardio Rate: regular rate Rhythm: regular rhythm Heart sounds: normal S1 and S2 General: Yes no CVA tenderness Back/Spine/Pelvis Back: no CVA tenderness Skin General skin exam: no rashes or lesions noted Neuro General: patient oriented x3 Extrem General: Yes normal to inspection and Yes no clubbing, cyanosis or edema Results AMB Urinalysis, Automated UA Leukoctes 0 Ean/uL Last Edit by Carroll Blood CMA on 05/20/24 09:37 UA Nitrite Negative Last Edit by Carroll Blood CMA on 05/20/24 09:37 UA Urobilinogen 0.2 mg/dL Last Edit by Carroll Blood CMA on 05/20/24 09 :37 UA Protein 0 mg/dL Last Edit by Carroll Blood CMA on 05/20/24 09:37 UA pH 6.0 Last Edit by Carroll Blood CMA on 05/20/24 09:37 UA Blood 0 Jadon/uL Last Edit by Carroll Blood CMA on 05/20/24 09:37 UA Specific [place] 1.010 Last Edit by Carroll Blood CMA on 05/20/24 09:37 UA Ketone Negative Last Edit by Carroll Blood CMA on 05/20/24 09:37 UA Bilirubin 0 mg/dL Last Edit by Carroll Blood CMA on 05/20/24 09:37 UA Glucose 500 mg/dL Last Edit by Carroll Blood CMA on 05/20/24 09:37 Results Reviewed Results Reviewed: Laboratory Last Values Urine pH (Auto) 6.0 05/20/24 09:24 Specific [place] (Auto) 1.010 05/20/24 09:24 Urine Protein (Auto) 0 mg/dL 05/20/24 09:24 Glucose (UA)(Auto) 500 mg/dL 05/20/24 09:24 Urine Ketones (Auto) Negative 05/20/24 09:24 Urine Blood (Auto) 0 Jadon/uL 05/20/24 09:24 Urine Nitrite (Auto) Negative 05/20/24 09:24 Urine Bilirubin (Auto) 0 mg/dL 05/20/24 09:24 Urine Urobilinogen (Auto) 0.2 mg/dL 05/20/24 09:24 Leukocyte Esterase (Auto) 0 Ean/uL 05/20/24 09:24 Assessment & Plan Assessment & Plan (1) Dysuria: Code(s): R30.0 - Dysuria Plan: In office urine inconsistent with likely UTI. Advised patient to follow up with primary care provider, she may benefit from referral to Urology or Urogynecology for additional workup. (2) Sinusitis: Code(s): J32.9 - Chronic sinusitis, unspecified Qualifiers: Sinusitis location: maxillary Chronicity: unspecified Qualified Code(s): J32.0 - Chronic maxillary sinusitis Plan: Supportive measures encouraged and reviewed. Advised consideration of sinus rinse if needed. Antibiotic sent to requested pharmacy, advised patient to take antibiotics until completed and not to stop if feeling better, unless the patient has side effects. Advised patient to follow up with primary care pr ovider with worsening or failure to resolve. Plan See above for full details and plan. Advised patient to follow up with her anxiety including consideration of contacting her health insurance for a any available family preservation caseworker that can facilitate with any financial programs that she may benefit from. Orders: Orders AMB Urinalysis Automated Today Flor Obrien PA-C Z13.9 - Encounter for screening, unspecified Medications: New amoxicillin-pot clavulanate 875-125 mg 1 tab PO BID 10 days 20 tabs 0RF Karoline Jerry NP Coding Level of Care Code Est Pt Level 4 (75667) Diagnoses Dysuria R30.0 Maxillary sinusitis, unspecified chronicity J32.0 Sinusitis location: maxillary Chronicity: unspecified Time Spent (min) 25
[2024-05-20 09:19] VITALS: BP 130/70; PULSE 50; O2SAT 100; BMI 28.7
== END 2024-05-20 10:27 | disposition home or self-care (01) ==
PROVIDERS: PCP Internal Medicine; Visit Provider Registered Nurse
DX: R30.0 Dysuria (principal); J32.0 Chronic maxillary sinusitis; Z13.9 Encounter for screening, unspecified

== ENCOUNTER → 2024-05-20 08:10 | Outpatient (BNVA) | payer MEDICARE, SELFPAY | PROVIDERS: PCP Internal Medicine | DX: R30.0 Dysuria (principal); J32.0 Chronic maxillary sinusitis | CPT/HCPCS: 81003; 99212 ==

== ENCOUNTER 2024-07-09 07:50 | Outpatient (REF) | payer MEDICARE, SELFPAY ==
[2024-07-09 10:46] LABS: Anion Gap 10 (12-20); Blood Urea Nitrogen 12 mg/dL (9-16); Carbon Dioxide 24 mmol/L (22-29); Chloride 100 mmol/L (96-108); Estimated Glomerular Filt Rate 52; Glucose Random 277 mg/dL (60-115); Potassium 4.1 mmol/L (3.3-5.1); Sodium 130 mmol/L (135-145)
[2024-07-09 11:12] LABS: TSH reflex Free T4 1.95 uIU/mL (0.32-4.0)
== END 2024-07-09 07:51 | disposition home or self-care (01) ==
LOC: HO.HMGCLDS 07:50
PROVIDERS: PCP Internal Medicine; Visit Provider Family Medicine
DX: E87.1 Hypo-osmolality and hyponatremia (principal); E03.9 Hypothyroidism, unspecified
CPT/HCPCS: 36415; 80048; 84443

== ENCOUNTER 2024-07-17 15:17 | Outpatient (REF) | payer MEDICARE, SELFPAY ==
[2024-07-17 17:42] LABS: Anion Gap 15 (12-20); Blood Urea Nitrogen 14 mg/dL (9-16); Carbon Dioxide 21 mmol/L (22-29); Chloride 103 mmol/L (96-108); Cholesterol 193 mg/dL (<200); Estimated Glomerular Filt Rate 48; Glucose Random 170 mg/dL (60-115); HDL Cholesterol 65 mg/dL (>40); LDL Cholesterol Calculated 111 mg/dL (<100); Potassium 3.8 mmol/L (3.3-5.1); Sodium 135 mmol/L (135-145); Triglycerides 89 mg/dL (<150)
[2024-07-17 18:07] LABS: Creatinine Urine 38.88 mg/dL; Microalbumin Urine < 5.0 mg/L
[2024-07-18 08:21] LABS: ~HepC Num1 0.06 S/CO (0.00-0.79); ~Hepatitis C Antibody Nonreactive (Nonreactive)
== END 2024-07-17 15:18 | disposition home or self-care (01) ==
LOC: HO.CHCLDS 15:17
PROVIDERS: Visit Provider Internal Medicine
DX: E11.9 Type 2 diabetes mellitus without complications (principal); R94.4 Abnormal results of kidney function studies
CPT/HCPCS: 36415; 80048; 80061; 82570; 86803

== ENCOUNTER 2024-08-12 09:37 | Outpatient (REF) | payer MEDICARE, SELFPAY ==
--- NOTE | ~2024-08-12 | XR_ITS ---
EXAMINATION: XR CERVICAL SPINE CLINICAL INFORMATION: Left side neck pain. COMPARISON: None available. TECHNIQUE: 5 views of the cervical spine, inclusive of flexion and extension views, were obtained. FINDINGS: Curvilinear clips project over the posterior occiput. Degenerative changes between the anterior arch of C1 and the odontoid. Advanced degenerative changes with loss of disc space height at C3-C4, C4-C5, C5-C6, and C6-C7. Mild posterior subluxation of C4 on C5, and C5 on C6. Surgical clips anterior to the lower cervical spine. Small calcification in the soft tissues posterior to the lower cervical spine. Bilateral multilevel facet arthritis. XR/XR cervical spine 5V IMPRESSION: Advanced multilevel degenerative changes in the cervical spine as detailed above. Electronically signed by: Yuridia Becerra MD 09/02/2024 11:21 AM FIONA DARNELL
== END 2024-08-12 09:38 | disposition home or self-care (01) ==
LOC: HO.HMGCX 09:37
PROVIDERS: PCP Internal Medicine; Visit Provider Internal Medicine
DX: M54.2 Cervicalgia (principal)
CPT/HCPCS: 72050

== ENCOUNTER 2024-09-24 12:14 | Outpatient (AMB) | payer MEDICARE, SELFPAY ==
--- OUTSIDE RECORDS SUMMARY | 2024-09-24 12:56 | XMS_ITS | Encounter Summary ---
Author Organization [employer] Address [address] [facility] 7 [place] [address] Care Team Providers Care Orthotic And Prosthetic Technician Name Role Phone Rolanda Thakur MD Primary Care Provider [phone]- [phone] Reason for Visit * Reason Onset Date Comments Nurse Triage 08/05/2024 Encounter Details Date Type Department Care Team ([facility] st Contact Info) Description 08/05/2024 Telephone [facility] MEDICINE [address] [place] [address] Rolanda Thakur MD [address] [place] [address] Nurse Triage Social History Tobacco Use Types Packs/Day Years Used Date Smoking Tobacco: Never Passive Smoke Exposure: Never Smokeless Tobacco: Never Alcohol Use Standard Drinks/Week Comments Never 0 (1 standard drink = 0.6 oz pur e alcohol) Depression Answer Date Recorded Patient Health Questionnaire-9 Score 2 05/13/2024 Patient Health Questionnaire-9 Score 2 05/13/2024 Last PHQ-9: Questionnaire Data Not on file 0 05/13/2024 Housing Stability Answer Date Recorded What is your housing situation today? I have johnnycris[employer] gentile 07/06/[address] you li ve. Do you have problems with any of the following? None of the above 07/06/2024 Food Insecurity Answer Date Recorded Within the past 12 months, y ou worried that your food would run out before you got money to buy more: Not on file 07/06/2024 Within the past 12 months,th e food you bought just didn't last and you didn't have enough money to get more: Often true Transportation Answer Date Recorded In the past 12 months, has l ack of transportation kept you from medical appts, meetings, work or from getting things needed for daily living? No 07/06/2024 Utilities Answer Date Recorded In the past 12 months, has t he electric, gas, oil or water company threatened to shut off services in your home? Yes 07/06/2024 Depression Answer Date Recorded Patient Health Questionnaire-2 Score 0 05/13/2024 Internet Access Answer Date Recorded Internet Access Q1 Yes 07/06/2024 Internet Access Q2 Not on file 07/06/2024 Comments Unknown Sex and Gender Information Value Date Recorded Sex Assigned at Female 06/20/2022 10:30 AM EDT Legal Sex Female 10:30 AM EDT Gender Identity Female 06/20/2022 10:30 AM EDT Sexual Orientation Straight 06/20/2022 10 :30 AM EDT documented as of this encounter Miscellaneous Notes * Telephone Encounter - Viktoria Schultz RN - 08/05/2024 4:04 PM EST Triage call Pt reports , I have a sinus infection . Pt reports pain in left cheek to eyebrow and left side of nose. Pt reports when blowing nose brownish nasal drainage in left nare. Pt has had a cough which is producing brownish phlegm also. Pt also reports headache. Pt is scheduled to have a CT scan of head this monday at 1145am. Pt is advised to come to [facility] today which is open till 8pm and also open 830am -800pm tomorrow. Pt agrees with this disposition. Pt will try to come to [facility] todaybut, if unable will come tomorrow. Pt insurance is verified as active. Protocol Used: Sinus Pain or Congestion (Adult) Protocol-Based Disposition: See in Office or Video Visit Today or Tomorrow Video visit not offered Positive Triage Questions: * Sinus congestion (pressure, fullness) present > 10 days * Lots of coughing * Patient wants to be seen * All higher-acuity triage questions were negative Care Advice Discussed: * Reassurance and Education - Colds and Sinus Congestion * Hydration * Reasons To Call Back - Severe pain lasts over 2 hours after pain medicine - Sinus pain lasts over 1 day after using nasal washes - Sinus congestion (fullness) lasts over 10 days - Fever lasts over 3 days - You become worse * Telephone Encounter - Raz Kaleb - 08/05/2024 9:12 AM EST Symptoms: Sinus Symptoms, Chest Congestion Outcome: Schedule an urgent appointment (within 4 hours) or talk to a nurse or provider soon Reason: Red swelling on cheek or around eye (Pt requested to not call until after 3:30 because she is unable to take the call during school hours) documented in this encounter Plan of Treatment Not on file documented as of this encounter Visit Diagnoses Not on filedocumented in this encounter Additional Health Concerns Assessment Noted Time PHQ-9 Depression Total Score: 2 05/13/ 24 9:24 AM EDT documented as of this encounter Care Teams Orthotic And Prosthetic Technician Relationship Specialty Start Date End Date Rolanda Thakur MD [address] [place] [id number] PCP - General Internal Medicine 09/19/22 documented as of this encounter
--- OUTSIDE RECORDS SUMMARY | 2024-09-24 12:56 | XMS_ITS | Encounter Summary ---
Author Organization [employer] Address [address] [place] [address] [place] [address] Care Team Providers Care Parcel Post Officer Name Role Phone Rolanda Thakur MD Primary Care Provider [phone]- [phone] Reason for Visit * Reason Onset Date Comments Referral 07/31/2024 Encounter Details Date Type Department Care Team ([facility] Contact Info) Description 07/31/2024 Telephone [facility] CHC MED & PEDS [address] [place] [address] Rolanda Thakur MD [address] [place] [address] Referral Social History Tobacco Use Types Packs/Day Years [...] is your housing situation today? I have johnny gentile 07/06/[address] you [...] encounter Miscellaneous Notes * Telephone Encounter - Brisa Buenrostro - 08/02/2024 3:56 PM EST TC to chiropractor office and was informed patient insurance is not accept it in their office. * Telephone Encounter - Phyllis Moran RN - 07/31/2024 4:50 PM EST See previous message . Will route this message to PCP for review . TY. * Telephone Encounter - Annabella Peña - 07/31/2024 4:32 PM EST Tc from pt requesting status on referral for Chiropractor with Dr Hirsch. Referaal was requested on 07/13/24 via [facility] documented in this encounter Plan of Treatment Not on file documented as of this encounter Visit Diagnoses Not on filedocumented in this encounter Additional Health Concerns Assessment Noted Time PHQ-9 Depression Total Score: 2 05/13/20 24 9:24 AM EDT documented as of this encounter Care Teams Parcel Post Officer Relationship Specialty Start Date End Date Rolanda Thakur MD [address] [place] [id number] PCP - General Internal Medicine 09/19/22 documented as of this encounter
--- OUTSIDE RECORDS SUMMARY | 2024-09-24 12:56 | XMS_ITS | Encounter Summary ---
Author Organization [employer] Address [address] [place] [address] Care Team Providers Care Individual Small Group Instructor Name Role Phone Rolanda Thakur MD Primary Care Provider [phone]- [phone] Reason for Visit * Reason Onset Date Comments Med Refill 04/04/2024 Encounter Details Date Type Department Care Team (Late st Contact Info) Description 04/04/2024 Telephone [facility] MEDICINE [address] [place] [address] Rolanda Thakur MD [address] [place] [address] Med Refill Social History Tobacco Use Types Packs/Day Years Used Date Smoking Tobacco: Never Passive Smoke Exposure: Never Smokeless Tobacco: Never Alcohol Use Standard Drinks/Week Comments Never 0 (1 standard drink = 0.6 oz pur e alcohol) Comments Unknown Sex and Gender Information Value Date Recorded Sex Assigned at Female 06/20/2022 10:30 AM EDT Legal Sex Female 10:30 AM EDT Gender Identity Female 06/20/2022 10:30 AM EDT Sexual Orientation Straight 06/20/2022 10 :30 AM EDT documented as of this encounter Miscellaneous Notes * Telephone Encounter - Hannah Betancourt - 04/04/2024 3:45 PM EDT TC from pt requesting medication refill. Medications needing refill : Buspirone 5 mg tablets To be sent to: [facility] documented in this encounter Plan of Treatment Not on file documented as of this encounter Visit Diagnoses Diagnosis Anxiety- Primary Anxiety state, unspecified documented in this encounter Care Teams Individual Small Group Instructor Relationship Specialty Start Date End Date Rolanda Thakur MD [address] [place] [address] PCP - General Internal Medicine 09/19/22 documented as of this encounter
--- OUTSIDE RECORDS SUMMARY | 2024-09-24 12:56 | XMS_ITS | Encounter Summary ---
Author Organization [employer] Address [address] [place] [address] Care Team Providers Care [employer] Mdm Architect Name Role Phone Rolanda Thakur MD Primary Care Provider [phone]- [phone] Reason for Visit * Reason Onset Date Comments EKG 06/18/2024 Encounter Details Date Type Department Care Team ([facility] st Contact Info) Description 06/18/2024 Telephone [facility] CHC MED & PEDS [address] [place] [address] Roalnda Thakur MD [address] [place] [address] EKG Social History Tobacco Use Types Packs/Day Years Used Date Smoking Tobacco: Never Passive Smoke Exposure: Never Smokeless Tobacco: Never Alcohol Use Standard Drinks/Week Comments Never 0 (1 standard drink = 0.6 oz pur e alcohol) Depression Answer Date Recorded Patient Health Questionnaire-9 Score 2 05/13/2024 Patient Health Questionnaire-9 Score 2 05/13/2024 Last PHQ-9: Questionnaire Data Not on file 0 05/13/2024 Depression Answer Date Recorded Patient Health Questionnaire-2 Score 0 05/13/2024 Comments Unknown Sex and Gender Information Value Date Recorded Sex Assigned at Female 06/20/2022 10:30 AM EDT Legal Sex Female 10:30 AM EDT Gender Identity Female 06/20/2022 10:30 AM EDT Sexual Orientation Straight 06/20/2022 10 :30 AM EDT documented as of this encounter Miscellaneous Notes * Telephone Encounter - Rolanda Thakur MD - 06/20/2024 1:49 PM EDT Please inform Ms Pineda that an office visit note is requested for the referral to be generated. Given pt's symptoms, she would need a [facility] appointment to get the notes for our home staging specialist to process the referral. * Telephone Encounter - Brisa Buenrostro - 06/20/2024 10:[address] Thakur. Chart notes are required for neurology referral. Thank you. * Telephone Encounter - Rolanda Thakur MD - 06/19/2024 9:04 PM EDT The referral was generated. It seems like it is an urgent issue that needs to be addressed as soon as possible * Telephone Encounter - Brisa Buenrostro - 06/18/2024 4:37 PM EDT Patient returned call and informed call center Annabella that she's been having a lot of headaches and went to see an eye doctor which advised she should seek a neurology referral. She states percussion instructor advised her to get a referral due to procedure done for cataracts might have struck a nerve and that might be were the headaches are coming from. * Telephone Encounter - Annabella Peña - 06/18/2024 4:03 PM EDT Tc from pt requesting status on order for EKG. Contact Paulette at [phone] documented in this encounter Plan of Treatment Not on file documented as of this encounter Visit Diagnoses Not on filedocumented in this encounter Additional Health Concerns Assessment Noted Time PHQ-9 Depression Total Score: 2 05/13/20 24 9:24 AM EDT documented as of this encounter Care Teams [employer] Mdm Architect Relationship Specialty Start Date End Date Rolanda Thakur MD [address] [place] [phone] PCP - General Internal Medicine 09/19/22 documented as of this encounter
--- OUTSIDE RECORDS SUMMARY | 2024-09-24 12:56 | XMS_ITS | Clinical Summary ---
Author Organization [facility] Address [address] [place] [address] Phone Care Team Providers Care Press Officer Name Role Phone Rolanda Thakur MD Primary Care Provider [phone] Allergies Active Allergy Reactions Criticality Noted Date Comments Codeine 04/21/2016 Other Reaction(s): vomiting, headache Other reaction(s): vomiting, headache Gabapentin 04/21/2016 Other Reaction(s): n/v headache Other reaction(s): n/v headache Hydrocodone-Acetaminop hen 07/08/2024 Other Reaction(s): n/v headache Hydromorphone 08/12/2022 Other Reaction(s): n/v headache Other reaction(s): n/v headache Levothyroxine 01/04/2023 Lisinopril Cough 04/21/2016 Meloxicam Nausea And Vomiting High 01/09/2020 Meperidine Unknown 04/21/2016 Other Reaction(s): Headache and vomiting Other reaction(s): Headache and vomiting Morphine Other,Unknown 04/21/2016 Other Reaction(s): Headache and vomiting Other reaction(s): Headache and vomiting Nitrofurantoin Diarrhea 07/07/2018 Oxycodone 10/12/2021 Oxycodone-Acetaminophe n Nausea And Vomiting 05/09/2017 Other reaction(s): vomiting Prednisone 06/29/2020 Scallops 07/08/2024 Sulfa (Sulfonamide Antibiotics) 07/07/2022 Trimethoprim Nausea And Vomiting 07/08/2022 Pt claims she is not allergic to Trimethoprim sulfamethoxazole Medications Medication Sig Dispensed Refills Start Date End Date Status B complex tablet Take 1 tablet by mouth 1 (one) time each day. Active aspirin 81 mg chewable tablet Chew 1 tablet (81 mg total) 1 (one) time each day. Active busPIRone (BUSPAR) 5 mg tablet Take by mouth 2 (two) times a day. Active cetirizine (ZyrTEC) 10 mg tablet Take 1 tablet (10 mg total) by mouth 1 (one) time each day. Active cloNIDine (CATAPRES) 0.1 mg tablet Take 1 tablet (0.1 mg total) by mouth 3 (three) times a day. Active cholecalciferol (Vitamin D3) 50 mcg (2,000 unit) capsule Take 1 capsule (2,000 Units total) by mouth 1 (one) time each day. Active glipiZIDE (GLUCOTROL) 10 mg tablet Take 1 tablet (10 mg total) by mouth 2 (two) times a day before meals. Active losartan (COZAAR) 100 mg tablet Take 1 tablet (100 mg total) by mouth 1 (one) time each day. Active metFORMIN (GLUCOPHAGE) 500 mg tablet Take 1 tablet (500 mg total) by mouth 2 (two) times a day with meals. Active levothyroxine (SYNTHROID, LEVOTHROID) 125 mcg tablet Take 1 tablet (125 mcg total) by mouth. Monday and Monday and 137 mcg Mon and Sundays SYNTHROID BRAND ONLY Active levothyroxine (SYNTHROID, LEVOTHROID) 137 mcg tablet Take 1 tablet (137 mcg total) by mouth 1 (one) time each day before breakfast. Monday and Monday and 125 mcg on Monday and Monday SYNTHROID BRAND ONLY Active busPIRone (BUSPAR) 10 mg tablet Take 1 tablet (10 mg total) by mouth 2 (two) times a day. Active docosahexaenoic acid/epa (FISH OIL ORAL) Take by mouth 1 (one) time each day. Active calcium carbonate/vitamin D3 (CALCIUM 500 + D ORAL) Take by mouth 1 (one) time each day. Active Vitamin C tablet Take 1 tablet (100 mg total) by mouth 1 (one) time each day. Active multivitamin tablet Take 1 tablet by mouth 1 (one) time each day. Active clonazePAM (KlonoPIN) 0.5 mg tablet Take 1 tablet (0.5 mg total) by mouth if needed for anxiety. Active Active Problems Problem Noted Date Diagnosed Date Chest pain 07/08/2024 Assessment & Plan (07/08/2024 4:42 PM EST): Agree that the symptoms are more likely stress related. However because of her family history and her concern as well as risk factors of hyperlipidemia, hypertension, I think it would be reasonable to do further restratification with a coronary calcium score. Patient is aware that this will likely be an [id number] cost and feels as though she can afford it. I will review results and determine need for future follow-up. In the meantime she would like to hold off on statin therapy which I think is totally reasonable. Orders: ECG 12 lead Pure hypercholesterolemia 07/08/2024 Assessment & Plan (07/08/2024 4:42 PM EST): See plan above. Encounters Date Type Department Care Team Description 09/12/2024 Telephone [facility] [address] [address] Nikki Rawls MD Hypertension 09/07/2024 9:51 AM EST - 09/07/2024 11:59 PM EST Hospital Encounter [facility] [address] [place] [address] Pain Discharge Disposition: Home or Self Care 09/07/2024 9:45 AM EST - 09/07/2024 11:59 PM EST Hospital Encounter [facility] [address] [place] [address] Pain Discharge Disposition: Home or Self Care 08/22/2024 Telephone [facility] [address] [address] scan 08/09/2024 11:25 AM EST - 08/09/2024 11:59 PM EST Hospital Encounter [facility] CT Scan [address] [place] [address] Essential (primary) hypertension Discharge Disposition: Home or Self Care 08/02/2024 Telephone [facility] [address] [place] [address] Nikki Rawls MD Appointment (CT Coronary Calcium Scoring) 07/10/2024 Telephone [facility] [address] [place] [address] Lorraine Leblanc MA TESTING (Calcium channel score CT scan) 07/10/2024 Telephone [facility] [address] [place] [address] Lorraine Leblanc MA 07/08/2024 2:00 PM EST Office Visit [facility] [address] [place] [address] Nikki Rawls MD Chest pain, unspecified type (Primary Dx); Pure hypercholesterolemia 06/24/2024 Telephone [facility] [address] [place] [address] Carl Valencia MD from Last 3 Months Family History Medical History Relation Name Comments Heart failure Mother Other: unknown heart condition Sister Relation Name Status Comments Mother Sister Social History Tobacco Use Types Packs/Day Years Used Date Smoking Tobacco: Never Smokeless Tobacco: Never Alcohol Use Standard Drinks/Week Comments Yes 0 (1 standard drink = 0.6 oz pur e alcohol) rarely Sex and Gender Information Value Date Recorded Sex Assigned at Female 07/31/2024 8:18 AM EST Gender Identity Female 07/31/2024 8:18 AM EST Sexual Orientation Choose not to disclose 2023 8:18 AM EST Job Start Date Occupation Industry Not on file Not on file Not on file Obstetrics History Last Filed Vital Signs Vital Sign Reading Time Taken Comments Blood Pressure 138/74 07/08/2024 2:10 PM EST Pulse 67 07/08/2024 2:10 PM EST Temperature - - Respiratory Rate - - Oxygen Saturation 99% 07/08/2024 2:10 PM EST Inhaled Oxygen Concentration - - Weight 74.1 kg (163 lb 6.4 oz) 07/08/2024 2:10 P M EST Height 162.6 cm (5' 4 ) 07/08/2024 2:10 PM EST Body Mass Index 28.05 07/08/2024 2:10 PM EST Plan of Treatment Health Maintenance Due Date Last Done Comments Diabetes: Annual Foot Exam 1961 Diabetes: Annual Retina Eye Exam 1961 Falls Risk Assessment 07/20/2022 Medicare Annual Wellness Visit 07/20/2022 Social Influencers of Health Screening 07/20/2022 Diabetes: Annual Urine Albumin-Creatinine Ratio (uACR) 10/04/2023 COVID-19 Vaccine () 04/21/2024 07/10/2021, 11/04/2020 Diabetes: Blood Sugar Control Test (HGBA1C) 01/03/2025 07/06/2024 Depression Screening 05/13/2025 05/13/2024 Diabetes: Annual GFR (Glomerular Filtration Rate) 07/17/2025 07/17/2024, 07/09/2024, 04/08/2024, Additional history exists Hypertension/CHF/CAD Annual BMP Blood Test 07/17/2025 07/17/2024, 07/09/2024, 04/08/2024, Additional history exists Breast Cancer Screening 10/22/2025 10/23/19 24, 10/12/2022, 06/08/2021, Additional history exists Colorectal Cancer Screening: FIT-DNA (Cologuard) 08/09/2027 08/09/2024 Cholesterol Screening (Lipid Panel) 07/17/2029 07/17/2024, 05/08/2023 DTaP,Tdap,and Td Vaccines (6 - Td or Tdap) 10/07/2031 10/07/2021, 01/19/2019, 01/19/2019, Additional history exists Osteoporosis Screening (Bone Density Screening) 04/12/2033 04/12/2023, 04/16/2020 Zoster Vaccines Completed 07/02/2018, 01/2018, 04/09/2012 Pneumococcal Vaccine: 65+ Years Completed 04/26/2019, 05/09/2017, 07/26/2016, Additional history exists Influenza Vaccine Completed 05/13/2024, , 06/27/2021, Additional history exists RSV Immunization Patients 60+ Years Old Completed 05/13/2024 Hepatitis C Screening Completed 07/17/2024 HIB Vaccines Aged Out No longer eligi ble based on patient's age to complete this topic HPV Vaccines Aged Out No longer eligi ble based on patient's age to complete this topic Hepatitis A Vaccines Aged Out No long er eligible based on patient's age to complete this topic Hepatitis B Vaccines Aged Out No long er eligible based on patient's age to complete this topic IPV Vaccines Aged Out No longer eligi ble based on patient's age to complete this topic MMR Vaccines Aged Out No longer eligi ble based on patient's age to complete this topic Meningococcal ACWY Vaccine Aged Out N o longer eligible based on patient's age to complete this topic RSV Immunization Patients Under 20 months Aged Out No longer eligible based on patient's age to complete this topic Varicella Vaccines Aged Out No longer eligible based on patient's age to complete this topic Procedures Procedure Name Priority Date/Time Associated Diagnosis Comments XR LUMBAR SPINE 2-3 VIEWS Routine 09/07/2024 10:07 AM EST Pain XR THORACIC SPINE 2 VIEWS Routine 09/07/2024 10:[address] HEAD WO CONTRAST Routine 08/09/2024 11:44 AM EST Essential (primary) hypertension ECG 12-LEAD Routine 07/08/2024 2:16 PM EST Chest pain, unspecified type [facility] SCREENING DIGITAL Routine 10/23/2023 9:44 AM EST Encounter for screening mammogram for malignant neoplasm of breast [facility] DEXA AXIAL SKELETON Routine 04/12/2023 7:46 AM EDT Encounter for screening for osteoporosis from Last 3 Months or Most Recently Relevant to Health Maintenance Results * XR Lumbar Spine 2-3 Views (09/07/2024 10:07 AM EST) Anatomical Region Laterality Modality Spine, L-spine Radiographic Gabriella ging 09/09/2024 7:11 AM EST Impressions 09/09/2024 7:17 AM EST No acute fracture. No etiology for thoracic pain demonstrated. There is anterolisthesis at L4/L5 which has worsened when compared to 08/04/2021. There is associated disc narrowing. The pars interarticulares are difficult to assess but there is facet sclerosis and narrowing. -------- FINAL REPORT -------- Dictated By: Cecil Jade Dictated Date: 09/09/2024 07:11 ET Assigned Physician: Cecil Jade Reviewed and Electronically Signed By: Cecil Jade Signed Date: 09/09/2024 07:17 ET Workstation ID: [id number] Transcribed By: Self Edit Transcribed Date: 09/09/2024 07:11 ET Narrative 09/09/2024 7:17 AM EST EXAMINATION: THORACIC SPINE LUMBAR SPINE CLINICAL INFORMATION: Back pain COMPARISON: Lumbar spine 08/04/2021 TECHNIQUE: Frontal and lateral views of the thoracic spine. 3 views of the lumbar spine FINDINGS: Thoracic spine: There are 12 rib-bearing vertebrae in normal alignment. No focal lesion, loss of volume or paraspinal abnormality. The pedicles appear intact. There may be trace osteophytes in the lower thoracic spine. No suspicious abnormality in the visualized portions of the chest Lumbar spine: There are 5 lumbar-type vertebrae. There is no acute fracture. There is no suspicious focal lesion or loss of volume. There is 9 mm of anterolisthesis of L4 relative to L5. There is moderate narrowing of the L4/L5 disc with opposing endplate sclerosis. The facets at L4/L5 are not optimally evaluated. The pedicles appear intact. There is no suspicious paraspinal abnormality. There is some arterial calcification. The frontal view was obtained upright. There is some sclerosis associated with the facets. No convincing pars defect although this area is sclerotic. Large amount of fecal residue in the visualized colon Procedure Note Cecil Jade MD - 09/09/2024 EXAMINATION: THORACIC SPINE LUMBAR SPINE CLINICAL INFORMATION: Back pain COMPARISON: Lumbar spine 08/04/2021 TECHNIQUE: Frontal and lateral views of the thoracic spine. 3 views of the lumbar spine FINDINGS: Thoracic spine: There are 12 rib-bearing vertebrae in normal alignment. No focal lesion,loss of volume or paraspinal abnormality. The pedicles appear intact.There may be trace osteophytes in the lower thoracic spine. No suspicious abnormality in the visualized portions of the chest Lumbar spine: There are 5 lumbar-type vertebrae. There is no acute fracture. There is nosuspicious focal lesion or loss of volume. There is 9 mm ofanterolisthesis of L4 relative to L5. There is moderate narrowing of theL4/L5 disc with opposing endplate sclerosis. The facets at L4/L5 are not optimally evaluated. The pedicles appearintact. There is no suspicious paraspinal abnormality. There is somearterial calcification. The frontal view was obtained upright. There is some sclerosis associatedwith the facets. No convincing pars defect although this area issclerotic. Large amount of fecal residue in the visualized colon IMPRESSION: No acute fracture. No etiology for thoracic pain demonstrated. There is anterolisthesis at L4/L5 which has worsened when compared to08/04/2021. There is associated disc narrowing. The pars interarticularesare difficult to assess but there is facet sclerosis and narrowing. -------- FINAL REPORT -------- Dictated By: Cecil Jade Dictated Date: 09/09/2024 07:11 ET Assigned Physician: Cecil Jade Reviewed and Electronically Signed By: Cecil Jade Signed Date: 09/09/2024 07:17 ET Workstation ID: [id number] Transcribed By: Self Edit Transcribed Date: 09/09/2024 07:11 ET Jamel Gilbert DC IMG XR PROCEDURES * XR Thoracic Spine 2 Views (09/07/2024 10:06 AM EST) Anatomical Region Laterality Modality Spine, T-spine Radiographic Gabriella ging 09/09/2024 7:11 AM EST Impressions 09/09/2024 7:17 AM EST No acute fracture. No etiology for thoracic pain demonstrated. There is anterolisthesis at L4/L5 which has worsened when compared to 08/04/2021. There is associated disc narrowing. The pars interarticulares are difficult to assess but there is facet sclerosis and narrowing. -------- FINAL REPORT -------- Dictated By: Cecil Jade Dictated Date: 09/09/2024 07:11 ET Assigned Physician: Cecil Jade Reviewed and Electronically Signed By: Cecil Jade Signed Date: 09/09/2024 07:17 ET Workstation ID: [id number] Transcribed By: Self Edit Transcribed Date: 09/09/2024 07:11 ET Narrative 09/09/2024 7:17 AM EST EXAMINATION: THORACIC SPINE LUMBAR SPINE CLINICAL INFORMATION: Back pain COMPARISON: Lumbar spine 08/04/2021 TECHNIQUE: Frontal and lateral views of the thoracic spine. 3 views of the lumbar spine FINDINGS: Thoracic spine: There are 12 rib-bearing vertebrae in normal alignment. No focal lesion, loss of volume or paraspinal abnormality. The pedicles appear intact. There may be trace osteophytes in the lower thoracic spine. No suspicious abnormality in the visualized portions of the chest Lumbar spine: There are 5 lumbar-type vertebrae. There is no acute fracture. There is no suspicious focal lesion or loss of volume. There is 9 mm of anterolisthesis of L4 relative to L5. There is moderate narrowing of the L4/L5 disc with opposing endplate sclerosis. The facets at L4/L5 are not optimally evaluated. The pedicles appear intact. There is no suspicious paraspinal abnormality. There is some arterial calcification. The frontal view was obtained upright. There is some sclerosis associated with the facets. No convincing pars defect although this area is sclerotic. Large amount of fecal residue in the visualized colon Procedure Note Cecil Jade MD - 09/09/2024 EXAMINATION: THORACIC SPINE LUMBAR SPINE CLINICAL INFORMATION: Back pain COMPARISON: Lumbar spine 08/04/2021 TECHNIQUE: Frontal and lateral views of the thoracic spine. 3 views of the lumbar spine FINDINGS: Thoracic spine: There are 12 rib-bearing vertebrae in normal alignment. No focal lesion,loss of volume or paraspinal abnormality. The pedicles appear intact.There may be trace osteophytes in the lower thoracic spine. No suspicious abnormality in the visualized portions of the chest Lumbar spine: There are 5 lumbar-type vertebrae. There is no acute fracture. There is nosuspicious focal lesion or loss of volume. There is 9 mm ofanterolisthesis of L4 relative to L5. There is moderate narrowing of theL4/L5 disc with opposing endplate sclerosis. The facets at L4/L5 are not optimally evaluated. The pedicles appearintact. There is no suspicious paraspinal abnormality. There is somearterial calcification. The frontal view was obtained upright. There is some sclerosis associatedwith the facets. No convincing pars defect although this area issclerotic. Large amount of fecal residue in the visualized colon IMPRESSION: No acute fracture. No etiology for thoracic pain demonstrated. There is anterolisthesis at L4/L5 which has worsened when compared to08/04/2021. There is associated disc narrowing. The pars interarticularesare difficult to assess but there is facet sclerosis and narrowing. -------- FINAL REPORT -------- Dictated By: Cecil Jade Dictated Date: 09/09/2024 07:11 ET Assigned Physician: Cecil Jade Reviewed and Electronically Signed By: Cecil Jade Signed Date: 09/09/2024 07:17 ET Workstation ID: [id number] Transcribed By: Self Edit Transcribed Date: 09/09/2024 07:11 ET Jamel Gilbert DC IMG XR PROCEDURES * CT Head wo Contrast (08/09/2024 11:44 AM EST) Anatomical Region Laterality Modality Head and Neck Computed Tomogra phy 08/12/2024 10:3 6 AM EST Impressions 08/12/2024 10:43 AM EST No acute intracranial process seen. -------- FINAL REPORT -------- Dictated By: Joe Coto Dictated Date: 08/12/2024 10:36 ET Assigned Physician: Joe Coto Reviewed and Electronically Signed By: Joe Coto Signed Date: 08/12/2024 10:43 ET Workstation ID: [id number] Transcribed By: Self Edit Transcribed Date: 08/12/2024 10:36 ET Narrative 08/12/2024 10:43 AM EST EXAMINATION: CT brain without contrast. COMPARISON: None. CLINICAL INDICATION: Uncontrolled hypertension. TECHNIQUE: 2.5 mm thin axial and reformatted 3 mm thin sagittal and coronal images of brain were obtained without contrast. Scanner: Altair Prep 64 slice VCT Dose reduction technique: ASIR (Adaptive statistical iterative reconstruction) and/or AEC (automated exposure control) Dose: total exam DLP 808 mGy/cm. FINDINGS: There is no acute intra-axial, extra-axial bleed, masses or midline shift. There is no acute infarction ??in evolution. There is no edema. Hearn to white matter differentiation is maintained normal. The lateral ventricles are symmetrical in size and configuration without enlargement. Bone windows reveal no calvarial abnormality. There is no scalp soft tissue abnormality. Bilateral paranasal sinuses and mastoid air cells are well-aerated. There is no scalp soft tissue abnormality. Procedure Note Joe Coto MD - 08/12/2024 EXAMINATION: CT brain without contrast. COMPARISON: None. CLINICAL INDICATION: Uncontrolled hypertension. TECHNIQUE: 2.5 mm thin axial and reformatted 3 mm thin sagittal andcoronal images of brain were obtained without contrast. Scanner: GELJumpCampeed 64 slice VCT Dose reduction technique: ASIR (Adaptive statistical iterativereconstruction) and/or AEC (automated exposure control) Dose: total exam DLP 808 mGy/cm. FINDINGS: There is no acute intra-axial, extra-axial bleed, masses or midline shift.There is no acute infarction in evolution. There is no edema. Hearn towhite matter differentiation is maintained normal. The lateral ventriclesare symmetrical in size and configuration without enlargement. Bonewindows reveal no calvarial abnormality. There is no scalp soft tissueabnormality. Bilateral paranasal sinuses and mastoid air cells arewell-aerated. There is no scalp soft tissue abnormality. IMPRESSION: No acute intracranial process seen. -------- FINAL REPORT -------- Dictated By: Joe Coto Dictated Date: 08/12/2024 10:36 ET Assigned Physician: Joe Coto Reviewed and Electronically Signed By: Joe Coto Signed Date: 08/12/2024 10:43 ET Workstation ID: [id number] Transcribed By: Self Edit Transcribed Date: 08/12/2024 10:36 ET Karen Alcantar MD IMG CT PROCEDURES * ECG 12 lead (07/08/2024 2:16 PM EST) Ventricular Rate ECG 67 BPM GEMUSE Atrial Rate 67 BPM GEMUSE P-R Interval 142 ms GEMUSE QRS Duration 80 ms GEMUSE Q-T Interval 404 ms GEMUSE QTc 426 ms GEMUSE P Wave [place] 30 degrees GEMUSE R [place] 30 degrees GEMUSE T [place] 9 degrees GEMUSE ECG Interpretation Normal sinus rhythm Normal ECG When compared with ECG of 25-JAN-2017 15:55, No significant change was found Confirmed by NIKKI RAWLS ([id number]) on 07/10/2024 6:03:50 PM GEMUSE 07/08/2024 2:16 PM EST 07/10/2024 6:03 PM EST Nikki Rawls MD ECG ORDERABLES GEMUSE * [facility] SCREENING DIGITAL (10/23/2023 9:44 AM EST) Anatomical Region Laterality Modality Mammography 10/19/2023 2:21 PM EST Narrative 10/23/2023 9:44 AM EST [facility] Diagnostic Imaging Department [address] [place], [place] [id number] Patient: ??ANGELY DUONG ?/Age/Sex: 1950 73 - F Unit#: ??[id number] ? Location/Status: ??SPDIMAM/REG CLI ? Mnemonic/Ordering Site: ??DIGSC/SPMAIN Ordering Physician: ??MAREN HOUGH MD [facility] Screening Digital - 10/21/23809 Report Status:Signed EXAM: [facility] Screening Digital EXAM DATE AND TIME: 10/21/2023 8:11 AM HISTORY: ??Screening. COMPARISON: ??10/12/22, 06/08/21, 03/04/20 TECHNIQUE: Bilateral digital breast tomosynthesis was performed in the CC and MLO projections. Computer aided detection with Phos[employer]e 3D 3.1 was employed. TISSUE DENSITY: a. The breasts are almost entirely fatty. FINDINGS: No suspicious masses, grouped microcalcifications, or areas of architectural distortion are seen. The skin and vascularity are unremarkable. IMPRESSION: Stable mammographic appearance of the breasts. ??No evidence of malignancy is seen. A negative mammogram in the presence of a clinically suspicious palpable abnormality does not preclude the possibility of malignancy or alter the indications for biopsy. BI-RADS: ??Category 1: Negative RECOMMENDATION(S): 1: Routine screening mammogram BILATERAL in 1 year. Dictating Physician: ??MARIA GUADALUPE GOTTI MD Electronically Signed by: ??MARIA GUADALUPE GOTTI MD Dic Date/Time: ??10/23/23943 Sign date/Time: ??10/23/23943 Procedure Note Maria Guadalupe Gotti MD - 04/08/2024 [facility] Diagnostic Imaging Department [address] [place] [address] Patient: ANGELY DUONGO.B./Age/Sex: 1950 - 73 - F Unit#: [id number] [facility] CLI Mnemonic/Ordering Site: [facility] Ordering Physician: MAREN HOUGH MD [facility] Screening Digital - 10/21/23 - 0810 Report Status:Signed EXAM: [facility] Screening Digital EXAM DATE AND TIME: 10/21/2023 8:11 AM HISTORY: Screening. COMPARISON: 10/12/22, 06/08/21, 03/04/20 TECHNIQUE: Bilateral digital breast tomosynthesis was performed in the CCand MLO projections. Computer aided detection with Phos[employer] 3D 3.1was employed. TISSUE DENSITY: a. The breasts are almost entirely fatty. FINDINGS: No suspicious masses, grouped microcalcifications, or areas ofarchitectural distortion are seen. The skin and vascularity are unremarkable. IMPRESSION: Stable mammographic appearance of the breasts. No evidence of malignancyis seen. A negative mammogram in the presence of a clinically suspicious palpable abnormality does not preclude the possibility of malignancy or alter the indications for biopsy. BI-RADS: Category 1: Negative RECOMMENDATION(S): 1: Routine screening mammogram BILATERAL in 1 year. Dictating Physician: MARIA GUADALUPE GOTTI MD Electronically Signed by: MARIA GUADALUPE GOTTI MD Dic Date/Time: 10/23/23943 Sign date/Time: 10/23/23943 Maren Hough MD IMG BI PROCEDURES * [facility] DEXA AXIAL SKELETON (04/12/2023 7:46 AM EDT) Anatomical Region Laterality Modality Mammography 04/11/2023 3:03 PM EDT Narrative 04/12/2023 7:46 AM EDT [facility] Diagnostic Imaging Department [address] [place] [address] Patient: ??ANGELY DUONG ?/Age/Sex: 1950 72 - F Unit#: ??[id number] ? Location/Status: ??SPDIMAM/REG CLI ? Mnemonic/Ordering Site: ??MAMDEXAAX/SPMAM Ordering Physician: ??MAREN HOUGH MD [facility] Dexa Axial Skeleton - 04/11/23 - 1533 Report Status:Signed HISTORY: ??The patient is a 72-year-old postmenopausal female with clinical concern for metabolic bone disease. FINDINGS: ??Dual energy x-ray absorptiometry of the lumbar spine and femurs is performed. The mean bone mineral density at L1-2 is 1.234 gm/cm2 which is 106% of that of young normals and 121% of that of age matched controls. This yields a T-score of 0.6 and a Z-score of 1.8 and there is therefore no evidence of osteoporosis or osteopenia here. The mean bone mineral density of the femurs bilaterally is 0.874 gm/cm2 which is 87% of that of young normals and 102% of that of age matched controls. ??This yields a T-score of -1.1 and a Z-score of 0.1 which is diagnostic of osteopenia. The T-score of the right femoral neck is -1.4 and that of the left femoral neck is -1.5 which is diagnostic of osteopenia. IMPRESSION: 1. Osteopenia. ??There has been an increase of 3.8% in bone mineral density in the lumbar spine since the prior examination of 04/16/2020. ??There has been a decrease of 5.5% in bone mineral density in the right femur and a decrease of 5.6% in bone mineral density in the left femur. 2. FRAX analysis yields a 10-year probability of major osteoporotic fracture of 15.5% and a 10-year probability of hip fracture of 2.2%. Code 19931 Dictating Physician: ??GWENDOLYN KENNEDY MD Electronically Signed by: ??GWENDOLYN KENNEDY MD Dic Date/Time: ??04/12/23 0745 Sign date/Time: ??04/12/23 0746 Procedure Note Gwendolyn Kennedy MD - 09/26/2023 [facility] Diagnostic Imaging Department [address] [place] [address] Patient: ADANGELYIRIS LIVINGSTON D.O.B./Age/Sex: 1950 - 72 - F Unit#: [id number] [facility] Ordering Physician: MAREN HOUGH MD [facility] Dexa Axial Skeleton - 04/11/23 - 7517 Report Status:Signed HISTORY: The patient is a 72-year-old postmenopausal female withclinical concern for metabolic bone disease. FINDINGS: Dual energy x-ray absorptiometry of the lumbar spine and femursis performed. The mean bone mineral density at L1-2 is 1.234 gm/cm2 which is106% of that of young normals and 121% of that of age matched controls. Thisyields a T-score of 0.6 and a Z-score of 1.8 and there is therefore no evidenceof osteoporosis or osteopenia here. The mean bone mineral density of the femurs bilaterally is 0.874 gm/uf9clrno is 87% of that of young normals and 102% of that of age matched controls.This yields a T-score of -1.1 and a Z-score of 0.1 which is diagnostic ofosteopenia. The T-score of the right femoral neck is -1.4 and that of the left femoralneck is -1.5 which is diagnostic of osteopenia. IMPRESSION: 1. Osteopenia. There has been an increase of 3.8% in bone mineral densityin the lumbar spine since the prior examination of 04/16/2020. There has mable decrease of 5.5% in bone mineral density in the right femur and a decreaseof 5.6% in bone mineral density in the left femur. 2. FRAX analysis yields a 10-year probability of major osteoporoticfracture of 15.5% and a 10-year probability of hip fracture of 2.2%. Code 67160 Dictating Physician: GWENDOLYN KENNEDY MD Electronically Signed by: GWENDOLYN KNENEDY MD Dic Date/Time: 04/12/2345 Sign date/Time: 04/12/2346 Maren Hough MD IMG BI PROCEDURES from Last 3 Months or Most Recently Relevant to Health Maintenance Care Teams Press Officer Relationship Specialty Start Date End Date Rolanda Thakur MD [address] [place], [place] PCP - General 11/03/23
--- OUTSIDE RECORDS SUMMARY | 2024-09-24 12:56 | XMS_ITS | Encounter Summary ---
Author Organization [employer] Address [address] [facility] 7 [place] [address] Care Team Providers Care Green Chain Operator Name Role Phone Rolanda Thakur MD Primary Care Provider [phone]- [phone] Reason for Visit * Reason Onset Date Comments Results 03/29/2024 Encounter Details Date Type Department Care Team ([facility] st Contact Info) Description 03/29/2024 Telephone [facility] MEDICINE [address] [place] [address] Rolanda Thakur MD [address] [place], [place] [phone] Results Social History Tobacco Use Types Packs/Day Years [...] encounter Miscellaneous Notes * Telephone Encounter - Wing Aga RN - 03/29/2024 4:11 PM EDT Pt walked in concerned about labs done today. Lab for sodium was 124. Spoke to Migdalia who recommended pt go to ED. Urinalysis was negative for nitrates, explained to pt to go to ED and pt verbalized understanding and agreement with plan. * Telephone Encounter - Sudhir Mcdonald - 03/29/2024 3:18 PM EDT Tc from patient calling in regards to results stating has received the results and would like to know what are the next steps * Telephone Encounter - Rhys Pérez - 03/29/2024 1:41 PM EDT TC from pt was seen today by MARIBEL Loza and would like results for UTI . Pt would also like to discuss getting anxiety meds prescribed again . documented in this encounter Plan of Treatment Not on file documented as of this encounter Visit Diagnoses Not on filedocumented in this encounter Care Teams Green Chain Operator Relationship Specialty Start Date End Date Rolanda Thakur MD [address] [place] [address] PCP - General Internal Medicine 09/19/22 documented as of this encounter
--- OUTSIDE RECORDS SUMMARY | 2024-09-24 12:56 | XMS_ITS | Encounter Summary ---
Author Organization [employer] Address [address] [place] [address] Care Team Providers Care Senior Technical Analyst Name Role Phone Rolanda Thakur MD Primary Care Provider +1- [phone] Reason for Visit * Reason Onset Date Comments Created In Error 04/29/2024 Encounter Details Date Type Department Care Team (Late st Contact Info) Description 04/29/2024 Telephone [facility] MEDICINE [address] [place], [place] [phone] Rolanda Thakur MD [address] [place], [place] [phone] Created In Error Social History Tobacco Use Types Packs/Day Years [...] AM EDT documented as of this encounter Plan of Treatment Not on file documented as of this encounter Visit Diagnoses Not on filedocumented in this encounter Care Teams Senior Technical Analyst Relationship Specialty Start Date End Date Rolanda Thakur MD [address] [place] [address] PCP - General Internal Medicine 09/19/22 documented as of this encounter
--- OUTSIDE RECORDS SUMMARY | 2024-09-24 12:56 | XMS_ITS | Encounter Summary ---
Author Organization [employer] Address [address] [place] [address] Care Team Providers Care Senior Patient Account Representative Name Role Phone Rolanda Thakur MD Primary Care Provider +1- [phone] Reason for Visit * Reason Onset Date Comments Medication Question 04/04/2024 Encounter Details Date Type Department Care Team (Late st Contact Info) Description 04/04/2024 Telephone [facility] MEDICINE [address] [place] [address] Rolanda Thakur MD [address] [place], [place] [phone] Medication Question Social History Tobacco Use Types Packs/Day Years [...] Telephone Encounter - Hannah Betancourt - 04/04/2024 11:01 AM EDT Tc from pt requesting a call from a nurse in regards to symptoms and a panic pt just had experienced. Pt needs a call in regards to panic attacks. Did not have pain pt is getting better. Took blood pressure every morning. documented in this encounter Plan of Treatment Not on file documented as of this encounter Visit Diagnoses Not on filedocumented in this encounter Care Teams Senior Patient Account Representative Relationship Specialty Start Date End Date Rolanda Thakur MD [address] [place] [address] PCP - General Internal Medicine 09/19/22 documented as of this encounter
--- OUTSIDE RECORDS SUMMARY | 2024-09-24 12:56 | XMS_ITS | Encounter Summary ---
Author Organization [employer] Address [address] [place] [address] [place] [address] Care Team Providers Care Tire Molder Name Role Phone Rolanda Thakur MD Primary Care Provider [phone]- [phone] Reason for Visit * Reason Comments Med Refill Encounter Details Date Type Department Care Team (Late st Contact Info) Description 05/20/[address] [facility] MED & PEDS [address] [place], [place] [phone] Rolanda Thakur MD [address] [place] [address] Diabetic polyneuropathy associated with type 2 diabetes mellitus ([facility]) Social History Tobacco Use Types Packs/Day Years [...] as of this encounter Visit Diagnoses Diagnosis Diabetic polyneuropathy associated with type 2 diabetes mellitus (CMS/HCC) documented in this encounter Additional Health Concerns Assessment Noted Time PHQ-9 Depression Total Score: 2 05/13/20 24 9:24 AM EDT documented as of this encounter Care Teams Tire Molder Relationship Specialty Start Date End Date Rolanda Thakur MD [address] [place] [address] PCP - General Internal Medicine 09/19/22 documented as of this encounter
--- OUTSIDE RECORDS SUMMARY | 2024-09-24 12:56 | XMS_ITS | Encounter Summary ---
Author Organization [employer] Address [address] [place] [address] [place] [address] Care Team Providers Care Subcontract Administrator Name Role Phone Rolanda Thakur MD Primary Care Provider +1- [phone] Reason for Visit * Reason Onset Date Comments Referral 05/18/2023 Encounter Details Date Type Department Care Team ([facility] st Contact Info) Description 05/18/2023 Telephone [facility] CHC MED & PEDS [address] [place] [address] Rolanda Thakur MD [address] [place] [address] Referral Social History Tobacco Use Types Packs/Day [...] encounter Miscellaneous Notes * Telephone Encounter - Bhavesh Yang RN - 05/25/2023 4:49 PM EDT Pt walked in returning call. Pt state she used to see Dr. Chad Dempsey from [place] [facility] butnow the office doesn't take her insurance. Pt is requesting/pleading for an EMG and to be referred to Dr. Nolasco which accepts her insurance. Pt report having charley horse almost every night. Pt report sciatica issues that comes and go. Pt report having diabetic neuropathy. Pt denies any numbnessor tingling only a little bit of numbness on her right leg. Pt report it feels like she is walking on sand. Pt also requesting electrolyte labs. Pt's main concern is that she wants to make sure her diabetes is improving or worsening. Please review and advise. Also sent you her response from [employer]. Thanks. * Telephone Encounter - Annabella Peña - 05/24/2023 3:57 PM EDT Tc from pt returning call regarding message below. Pt stated she is unavailable to answer phone from 08:30am-03:35pm * Telephone Encounter - Rolanda Thakur MD - 05/24/2023 1:00 PM EDT Ms Pineda was called. No answer. Message left to call the office back to get clarification on the request for an EMG. I need to know the symptoms, the diagnosis, and what part of the body to get the EMG for. Dr Hanna Condon is a neurologist specialized in sleep medicine. If Ms Angely Pineda is having paresthesias of her upper limbs and lower limbs I can order an EMG for her. If she would like a referral to Dr Roseanna nolasco for her paresthesias I can make a referral and the specialist will decide whether or not she will benefit from getting an EMG. * Telephone Encounter - Brinda Barnard - 05/18/2023 4:06 PM EDT TC from pt requesting a referral to Specialty: (EMG) Dr nolasco Date&Time: N/a Senior Net Programmer: n/a Please call pt to clarify documented in this encounter Plan of Treatment Not on file documented as of this encounter Visit Diagnoses Not on filedocumented in this encounter Care Teams Subcontract Administrator Relationship Specialty Start Date End Date Rolanda Thakur MD [address] [place] [address] PCP - General Internal Medicine 09/19/22 documented as of this encounter
--- OUTSIDE RECORDS SUMMARY | 2024-09-24 12:56 | XMS_ITS | Encounter Summary ---
Author Organization [employer] Address [address] [place] [address] Care Team Providers Care Coke Oven Mason Name Role Phone Rolanda Thakur MD Primary Care Provider +1- [phone] Reason for Referral * Consultation (Routine) - Closed Specialty Diagnoses / Procedures Referred By Freddy t Referred To Contact Chiropractic Medicine Diagnoses Chronic left-sided low back pain with left-sided sciatica Rolanda Thakur MD [address] [place] [address] Phone: tel: fax: [facility] fax: Referral ID Status Reason Start Date Expiration Date V isits Requested Visits Authorized [id number] Closed Specialty Services Required 08/08/2024 08/08/2025 1 1 * Consultation (Routine) - Closed Specialty Diagnoses / Procedures Referred By Freddy t Referred To Contact Physical Therapy Diagnoses Chronic left-sided low back pain with left-sided sciatica Rolanda Thakur MD [address] [place] [address] Phone: tel: fax: [facility] Physical Therapy [address] [place] [address] Phone: tel: fax: Referral ID Status Reason Start Date Expiration Date V isits Requested Visits Authorized [id number] Closed Specialty Services Required 08/05/2024 08/05/2025 1 1 * Consultation (Routine) - Closed Specialty Diagnoses / Procedures Referred By Freddy meadows Referred To Contact Chiropractic Medicine Diagnoses Chronic left-sided low back pain with left-sided sciatica Rolanda Thakur MD [address] [place] [address] Phone: tel: fax: Referral ID Status Reason Start Date Expiration Date V isits Requested Visits Authorized [id number] Closed Specialty Services Required 08/02/2024 08/02/2025 1 1 Encounter Details Date Type Department Care Team ([facility] Contact Info) Description 08/02/2024 Orders Only [facility] CH[facility] MED & PEDS [address] [place] [address] Rolanda Thakur MD [address] [place] [address] Chronic left-sided low back pain with left-sided sciatica (Primary Dx) Social History Tobacco Use Types Packs/Day Years [...] as of this encounter Plan of Treatment Scheduled Referrals Name Type Priority Associated Diagnoses Order Schedule Referral to Chiropractic Outpatient Referral Routine Chronic left-sided low back pain with left-sided sciatica Expected: 08/02/2024 (Approximate), Expires: 08/02/2025 Referral to Physical Therapy Outpatient Referral Routine Chronic left-sided low back pain with left-sided sciatica Expected: 08/05/2024 (Approximate), Expires: 08/05/2025 Referral to Chiropractic Outpatient Referral Routine Chronic left-sided low back pain with left-sided sciatica Expected: 08/08/2024 (Approximate), Expires: 08/08/2025 documented as of this encounter Procedures Procedure Name Priority Date/Time Associated Diagnosis Comments XR CERVICAL SPINE 5V Routine 08/12/2024 9:50 AM EST documented in this encounter Results * XR CERVICAL SPINE 5V (08/12/2024 9:50 AM EST) Anatomical Region Laterality Modality Abdomen Radiographic Gabriella ging 08/12/2024 9:50 AM EST Narrative 09/02/2024 11:24 AM EST ? [facility] ?[address] ? [place] [address] ?XRay Report ? Signed ? Patient: Cook,Angely ?MR#: [id number] ? : 1950 ?Acct:[id number] ? Age/Sex: 74 / F ?ADM Date: 08/12/24 ? Loc: HO.HMGCX ? Attending Dr: Wyatt Golden MD ? Ordering Physician: Wyatt Golden MD ?? Date of Service: 08/12/24 ?? Procedure(s): XR cervical spine 5V ?? Accession Number(s): [id number] ? cc: Rolanda Thakur MD; Wyatt Golden MD ? EXAMINATION: ?? XR CERVICAL SPINE ? CLINICAL INFORMATION: ?? Left side neck pain. ? COMPARISON: ?? None available. ? TECHNIQUE: ?? 5 views of the cervical spine, inclusive of flexion and extension ?? views, were obtained. ? FINDINGS: ?? Curvilinear clips project over the posterior occiput. ? Degenerative changes between the anterior arch of C1 and the odontoid. ? Advanced degenerative changes with loss of disc space height at C3-C4, ?? C4-C5, C5-C6, and C6-C7. ?? Mild posterior subluxation of C4 on C5, and C5 on C6. ?? Surgical clips anterior to the lower cervical spine. Small ?? calcification in the soft tissues posterior to the lower cervical spine. ? Bilateral multilevel facet arthritis. ? XR/XR cervical spine 5V ?? IMPRESSION: ?? Advanced multilevel degenerative changes in the cervical spine as ?? detailed above. ? Electronically signed by: ??Yuridia Becerra MD ??09/02/2024 11:21 AM EST ?? RP ? Dictated By: ?Yuridia Becerra MD ? Signed By: ?<Electronically signed by Yuridia Becerra MD in OV> ? 09/02/24 1121 ? DD/ 0950 ? TD/TT: 08/12/24 1000 ? Audio Engineer: ? Procedure Note Darrell Fonseca - 09/02/2024 [facility] [address] [place], [place] [address] XRay Report Signed Patient: Zion PinedaJean-Paul#: [id number] : 1Acct:[id number] Age/Sex: 74 / FADM Date: 08/12/24 Loc: HO.HMGCX Attending Dr: Wyatt Golden MD Ordering Physician: Wyatt Golden MD Date of Service: 08/12/24 Procedure(s): XR cervical spine 5V Accession Number(s): [id number] cc: Rolanda Thakur MD; Wyatt Golden MD EXAMINATION: XR CERVICAL SPINE CLINICAL INFORMATION: Left side neck pain. COMPARISON: None available. TECHNIQUE: 5 views of the cervical spine, inclusive of flexion and extension views, were obtained. FINDINGS: Curvilinear clips project over the posterior occiput. Degenerative changes between the anterior arch of C1 and the odontoid. Advanced degenerative changes with loss of disc space height at C3-C4, C4-C5, C5-C6, and C6-C7. Mild posterior subluxation of C4 on C5, and C5 on C6. Surgical clips anterior to the lower cervical spine. Small calcification in the soft tissues posterior to the lower cervical spine. Bilateral multilevel facet arthritis. XR/XR cervical spine 5V IMPRESSION: Advanced multilevel degenerative changes in the cervical spine as detailed above. Electronically signed by: Yuridia Becerra MD 09/02/2024 11:[address] [facility] Dictated By: Yuridia Becerra MD Signed By: <Electronically signed by Yuridia Becerra MD in OV> 09/02/24 1121 DD/ 0950 TD/TT: 08/12/24 1000 Audio Engineer: us Wyatt Mcdonald MD IMG XR PROCEDURES Iftikhar mecca Result - Final documented in this encounter Visit Diagnoses Diagnosis Chronic left-sided low back pain with left-sided sciatica- Primary documented in this encounter Additional Health Concerns Assessment Noted Time PHQ-9 Depression Total Score: 2 05/13/20 24 9:24 AM EDT documented as of this encounter Care Teams Coke Oven Mason Relationship Specialty Start Date End Date Rolanda Thakur MD [address] [place] [address] PCP - General Internal Medicine 09/19/22 documented as of this encounter
--- OUTSIDE RECORDS SUMMARY | 2024-09-24 12:56 | XMS_ITS | Encounter Summary ---
Author Organization [employer] Address [address] [place] [address] [place] [address] Care Team Providers Care Law Professor Name Role Phone Rolanda Thakur MD Primary Care Provider +1- [phone] Reason for Visit * Reason Onset Date Comments CT scan order 07/03/2024 Encounter Details Date Type Department Care Team ([facility] Contact Info) Description 07/03/2024 Telephone [facility] CH[facility] MED & PEDS [address] [place] [address] Rolanda Thakur MD [address] [place] [address] CT scan order Social History Tobacco Use Types Packs/Day Years [...] encounter Miscellaneous Notes * Telephone Encounter - Brinda Barnard - 07/03/2024 2:10 PM EST Tc from pt calling to inform CT scan order was sent to the incorrect location. Pt prefers being seen in [facility]. Please call pt to clarify. documented in this encounter Plan of Treatment Not on file documented as of this encounter Visit Diagnoses Not on filedocumented in this encounter Additional Health Concerns Assessment Noted Time PHQ-9 Depression Total Score: 2 05/13/20 24 9:24 AM EDT documented as of this encounter Care Teams Law Professor Relationship Specialty Start Date End Date Rolanda Thakur MD [address] [place] [address] PCP - General Internal Medicine 09/19/22 documented as of this encounter
--- OUTSIDE RECORDS SUMMARY | 2024-09-24 12:56 | XMS_ITS | Encounter Summary ---
Author Organization [employer] Address [address] [place] [address] [place] [address] Care Team Providers Care Pulverizing And Sifting Operator Name Role Phone Rolanda Thakur MD Primary Care Provider +1- [phone] Encounter Details Date Type Department Care Team ([facility] st Contact Info) Description 05/22/2024 Orders Only [facility] CH[facility] MED & PEDS [address] [place] [address] Rolanda Thakur MD [address] [place] [address] Social History Tobacco Use Types Packs/Day Years [...] documented as of this encounter Care Teams Pulverizing And Sifting Operator Relationship Specialty Start Date End Date Rolanda Thakur MD [address] [place] [address] PCP - General Internal Medicine 09/19/22 documented as of this encounter
--- OUTSIDE RECORDS SUMMARY | 2024-09-24 12:56 | XMS_ITS | Encounter Summary ---
Author Organization [employer] Address [address] [place] [address] 7 [place] [address] Care Team Providers Care Cracking Unit Operator Name Role Phone Rolanda Thakur MD Primary Care Provider [phone] Encounter Details Date Type Department Care Team (Late st Contact Info) Description 06/21/2023 Abstract [facility] MEDICINE [address] [place] [address] Sherrie Caballero Social History Tobacco Use Types Packs/Day Years [...] on file documented as of this encounter Procedures Procedure Name Priority Date/Time Associated Diagnosis Comments IFOBT Routine 01/03/2022 documented in this encounter Results * gFOBT (01/03/2022) Fecal Occult Blood 1 Negative Fecal Occult Blood 2 Negative Fecal Occult Blood 3 Negative 01/03/2022 Historical Provider POINT OF CARE TEST ENTER/ EDIT ORDERABLES Final Result documented in this encounter Visit Diagnoses Not on filedocumented in this encounter Care Teams Cracking Unit Operator Relationship Specialty Start Date End Date Rolanda Thakur MD [address] [place] [address] PCP - General Internal Medicine 09/19/22 documented as of this encounter
--- OUTSIDE RECORDS SUMMARY | 2024-09-24 12:56 | XMS_ITS | Encounter Summary ---
Author Organization [employer] Address [address] [place] [address] [place] [address] Care Team Providers Care Supervisor Hard Candy Name Role Phone Rolanda Thakur MD Primary Care Provider [phone]- [phone] Reason for Referral * Imaging (Routine) - Closed Specialty Diagnoses / Procedures Referred By Contac t Referred To Contact Radiology Diagnoses Hyponatremia Decreased GFR Procedures US RENAL BI Rolanda Thakur MD [address] [place] [address] Phone: tel: fax: [address] Phone: tel: fax: Referral ID Status Reason Start Date Expiration Date Visits Re quested Visits Authorized [id number] Closed 07/18/2024 07/18/2025 1 0 Encounter Details Date Type Department Care Team (Late st Contact Info) Description 07/09/2024 Orders Only [facility] CHC MED & PEDS [address] [place], [place] [phone] Rolanda Thakur MD [address] [place] [address] Hyponatremia (Primary Dx); Decreased GFR Social History Tobacco Use Types Packs/Day Years [...] of this encounter Plan of Treatment Scheduled Orders Name Type Priority Associated Diagnoses Orde r Schedule Basic Metabolic Panel Lab Routine Hyponatremia Expected: 07/09/2024 (Approximate), Expires: 07/09/2025 US RENAL BI Imaging Routine Hyponatremia Decreased GFR Expected: 07/18/2024, Expires: 07/18/2025 documented as of this encounter Visit Diagnoses Diagnosis Hyponatremia- Primary Hyposmolality and/or hyponatremia Decreased GFR documented in this encounter Additional Health Concerns Assessment Noted Time PHQ-9 Depression Total Score: 2 05/13/20 24 9:24 AM EDT documented as of this encounter Care Teams Supervisor Hard Candy Relationship Specialty Start Date End Date Rolanda Thakur MD [address] [place] [address] PCP - General Internal Medicine 09/19/22 documented as of this encounter
--- OUTSIDE RECORDS SUMMARY | 2024-09-24 12:56 | XMS_ITS | Encounter Summary ---
Author Organization [employer] Address [address] [place] [address] 7 [place] [address] Care Team Providers Care Greenhouse Instructor Name Role Phone Rolanda Thakur MD Primary Care Provider [phone]- [phone] Reason for Visit * Reason Comments Med Refill Encounter Details Date Type Department Care Team (Late st Contact Info) Description 12/28/[address] [facility] CHC MED & PEDS [address] [place] [address] Maren Hough MD [address] [place] [address] Type 2 diabetes mellitus without complication, without long-term current use of insulin ([facility]); Anxiety Social History Tobacco Use Types Packs/Day Years [...] Orientation Straight 06/20/2022 10 :30 AM EDT COVID-19 Exposure Response Date Recorded In the last 10 days, have yo u been in contact with someone who was confirmed or suspected to have Coronavirus/COVID-19? No / Unsure 12/15/2022 3:52 PM EDT documented as of this encounter Plan of Treatment Not on file documented as of this encounter Visit Diagnoses Diagnosis Type 2 diabetes mellitus without complication, without long-term current use of insulin ([facility]) Anxiety Anxiety state, unspecified documented in this encounter Care Teams Greenhouse Instructor Relationship Specialty Start Date End Date Rolanda Thakur MD [address] [place] [address] PCP - General Internal Medicine 09/19/22 documented as of this encounter
--- OUTSIDE RECORDS SUMMARY | 2024-09-24 12:56 | XMS_ITS | Encounter Summary ---
Author Organization [employer] Address [address] [place] [address] 7 [place] [address] Care Team Providers Care Grey Goods Marker Name Role Phone Rolanda Thakur MD Primary Care Provider [phone]- [phone] Reason for Visit * Reason Comments Med Refill Encounter Details Date Type Department Care Team ([facility] st Contact Info) Description 01/05/2023 Refill [facility] CHC MED & PEDS [address] [place] [address] Karoline Castañeda MD [address] [place] [address] Social History Tobacco Use Types Packs/Day Years [...] on filedocumented in this encounter Care Teams Grey Goods Marker Relationship Specialty Start Date End Date Rolanda Thakur MD [address] [place] [address] PCP - General Internal Medicine 09/19/22 documented as of this encounter
--- OUTSIDE RECORDS SUMMARY | 2024-09-24 12:56 | XMS_ITS | Encounter Summary ---
Author Organization [employer] Address [address] [facility] 7 [place] [address] Care Team Providers Care Cellophane Bath Mixer Name Role Phone Rolanda Thakur MD Primary Care Provider [phone]- [phone] Reason for Visit * Reason Onset Date Comments Nurse Triage 04/04/2024 Encounter Details Date Type Department Care Team (Late st Contact Info) Description 04/04/2024 Telephone [facility] MEDICINE [address] [place] [address] Rolanda Thakur MD [address] [place] [address] Nurse Triage Social History Tobacco Use Types [...] encounter Miscellaneous Notes * Telephone Encounter - Yael Shaffer RN - 04/04/2024 4:32 PM EDT Called pt. She states that she went to [facility] ED for Anxiety panic attacks on 03/30/24- Pt had low sodium and was told to take salt even though she is taking medications for Hypertension. Pt was Dx. Witha UTI and put on antibiotics. Pt. Was given first dose at 3am and continued the 12 hour regimen which she was getting up at 3am to take antibiotic x the past few days. I advised pt. That in future she can change the 12 hour taking times to better suit her schedule. I also notified pt. That being sleep dprived can cause anxiety and that waking up at 3am probably did not help her Anxiety. Pt statesthat On 04/01/24 BP was WNL. On 04/02/24 pt. Picked up daughter and forgot to take UTI medication butdid take it 5 hours later. On 04/03/24 Pt. Forgot to take medication again but did take it 2 hours later. I reassured pt. That taking the medicine a couple hours later will not hurt but that next timeshe should switch up her 12 hour schedule to suit her regular wake/sleep cycle better. Pt will keepthat in mind. Antibiotic Medication is to be taken every 12 hours for her UTI. Pt states she had oatmeal today, V8 juice and then had a panic attack. Because she was told by ED physician to eat salt to keep her potassium up. Pt states ED MD gave her a list of foods to eat that are Full of salt . Pt. Has been drinking water all day and also has been taking her BP all day due to Anxiety. Her BP has been once 200/100 then up and down last BP 168/64. Pt BP is stable at present. Pt. Denies any chest pain or SOB when her BP was 200/100 and denies having any chest pain or SOB during her Anxiety attack. Pt. Did take a 1/2 of a 0.5mg Clonazepam (0.25mg) when she was having her panic attack today which she states did help her. Pt. Concerned that she took a 0.25mg clonazepam because she takes Clonidine 0.1mg daily in am. I advised pt. That it was ok for her to take that dose in the moment of her panic attack. Pt states that she thinks she needs to go back on her Buspirone that's she used to take daily for Anxiety.to keep her regulated. Pt has appt. Tomorrow with Dr. Thakur at 315pm so she will discuss need for that at visit. Pt. Also states that she is anxious because they never told her the EKG result from when she was atED on 03/30/24. I advised pt. Of these things to bring up at appt. See if any of her current medications could be raising her sodium levels. Can she follow her low sodium diet and perhaps take a piece of course sea salt under tongue 1-3 times a week to keep sodium level healthy while following low sodium food diet. Can pt. Take Clonazepam as needed with her Clonidine. Can pt. Have another EKG done in office to relieve her mind Can pt. Be put back on Buspirone daily for her Anxiety. I advised pt. That she can take the other half of her Clonazepam(0.25mg) before bed tonight. Pt states it is her daughters Birthday tomorrow and she is afraid she is going to ruin it by having another anxiety attack. Advised pt. That only tomorrow am until she see's provider in afternoon she can take 1/2 Clonazepam (0.25MG ) 3 hours after her clonidine if she feels stressed or shaky. I also advised pt. That she can take her antibiotic at 9pm tonight and stay on the 9pm-9am schedulefor the duration of her course of antibiotics. And to remember that for future. Separate note FYI: Pt. States that she got treated horribly by the staff at [facility] and she will never go there again. She states that she overheard the nurses talking mean about her and they did not want to go into her room to help her. She states that also with being Diabetic, they did not meet her diabetic needs to keep her blood sugars stable. I will send this note to PCP to read prior to pt. Appt. On 04/05/24 to have before hand knowledge ofpt. Concerns so that it will help expedite the office visit. I will also send this note to clinical care coordinators so that they can get [facility] ED notes from 03/30/24 Ed visit into pt. Chart and any labs, EKG's etc.. into pt. Chart for visit on 04/05/24 at 315pm. Protocol Used: Anxiety and Panic Attack (Adult) Protocol-Based Disposition: Go to ED[facility] (or to Office with PCP Approval)- Pt. Is in control now and not displaying any sx. Of Anxiety or panic at present. Positive Triage Question: * Severe anxiety (e.g., extremely anxious with intense emotional symptoms such as feeling of unreality, urge to flee, unable to calm down; unable to cope or function), which is not better after 10 minutes of reassurance and Care Advice * All higher-acuity triage questions were negative Care Advice Discussed: * Reassurance and Education - Anxiety * Avoid Triggers of Anxiety * Stress Reduction * Note to Triager - How to Help a Patient During a Panic Attack * Avoid Caffeine * Telephone Encounter - Raz Manuel - 04/04/2024 4:11 PM EDT Symptom: Anxiety or Panic Attack Outcome: Schedule an urgent appointment (within 4 hours) or talk to a nurse or provider soon Reason: Anxiety keeps from normal daily activities (such as school or work) documented in this encounter Plan of Treatment Not on file documented as of this encounter Visit Diagnoses Not on filedocumented in this encounter Care Teams Cellophane Bath Mixer Relationship Specialty Start Date End Date Rolanda Thakur MD [address] [place] [address] PCP - General Internal Medicine 09/19/22 documented as of this encounter
--- OUTSIDE RECORDS SUMMARY | 2024-09-24 12:56 | XMS_ITS | Encounter Summary ---
Author Organization [employer] Address [address] [place] [address] 7 [place] [address] Care Team Providers Care Chronometer Repairer Name Role Phone Rolanda Thakur MD Primary Care Provider [phone]- [phone] Encounter Details Date Type Department Care Team (Late st Contact Info) Description 04/08/2024 Orders Only [facility] [address] [place], [place] [phone] Rolanda Thakur MD [address] [place] [address] UTI symptoms (Primary Dx) Social History Tobacco Use Types [...] as of this encounter Visit Diagnoses Diagnosis UTI symptoms- Primary documented in this encounter Care Teams Chronometer Repairer Relationship Specialty Start Date End Date Rolanda Thakur MD [address] [place] [address] PCP - General Internal Medicine 09/19/22 documented as of this encounter
--- OUTSIDE RECORDS SUMMARY | 2024-09-24 12:56 | XMS_ITS | Encounter Summary ---
Author Organization [employer] Address [address] [place] [address] [place] [address] Care Team Providers Care Head Of Mobile Name Role Phone Rolanda Thakur MD Primary Care Provider Encounter Details Date Type Department Care Team ([facility] st Contact Info) Description 05/16/2023 Orders Only [facility] CHC MED & PEDS [address] [place] [address] Rolanda Thakur MD [address] [place] [address] Bilateral leg paresthesia (Primary Dx); Anxiety; Diabetic polyneuropathy associated with type 2 diabetes mellitus (CMS/HCC) Social History Tobacco Use Types Packs/Day Years [...] Type Priority Associated Diagnoses Orde r Schedule Comprehensive Metabolic Panel Lab Routine Bilateral leg paresthesia Expected: 05/29/2023 (Approximate), Expires: 05/29/2024 Hemoglobin A1c Lab Routine Bilateral leg paresthesia Diabetic polyneuropathy associated with type 2 diabetes mellitus (CMS/HCC) Expected: 05/29/2023 (Approximate), Expires: 05/29/2024 documented as of this encounter Procedures Procedure Name Priority Date/Time Associated Diagnosis Comments TSH W/REFLEX TO FT4 Routine 10/10/2023 1 2:50 PM EST Bilateral leg paresthesia CBC WITH AUTO DIFFERENTIAL Routine 10/10/2023 12:50 PM EST Bilateral leg paresthesia VITAMIN B6 Routine 10/10/2023 12:50 PM EST Bilateral leg paresthesia VITAMIN B12 Routine 10/10/2023 12:50 PM EST Bilateral leg paresthesia documented in this encounter Results * Vitamin B6 (10/10/2023 12:50 PM EST) Pathologist [facility] Vitamin B6 16.0 2.1 - 21.7 ng/mL [facility] Comment:Vitamin supplementat ion within 24 hours prior toblood draw may affect the accuracy of the results.This test was developed and its analytical performancecharacteristics have been determined by [facility] [place], [place]. It hasnot been cleared or approved by the U.S. Food and DrugAdministration. This assay has been validated pursuantto the CLIA regulations and is used for clinicalpurposes.THIS TEST WAS PERFORMED AT:[id number] [place] [id number] PEDERSEN MD,PHD Blood Venous blood specimen / Unknown 10/10/2023 12:50 PM EST 10/10/2023 2:41 PM EST us Rolanda Thakur MD LAB BLOOD ORDERABLES Final Result [facility] [address] [place] [phone] * (ABNORMAL) Vitamin B12 (10/10/2023 12:50 PM EST) Vitamin B12 1,388(H) 200 - 900 pg/mL [facility] Comment:NORMAL 200-900 PG/ML INDETERMINATE 160-199 PG/ML DEFICIENT < 160 PG/ML Blood Venous blood specimen / Unknown 10/10/2023 12:50 PM EST 10/10/2023 2:41 PM EST Rolanda Thakur MD LAB BLOOD ORDERABLES Final Result Performing Organization Address City/[facility]/ZIP Co de Phone Number [facility] [address] [place] [address] [phone] * TSH W/Reflex to FT4 (10/10/2023 12:50 PM EST) Pathologist [facility] TSH reflex Free T4 0.35 0.32 - 4.0 uIU/mL [facility] Blood 10/10/2023 12:5 0 PM EST 10/10/2023 2:41 PM EST us Rolanda Thakur MD LAB BLOOD ORDERABLES Final Result Performing Organization Address City/[facility]/ZIP Co de Phone Number [facility] [address] [place] [phone] * (ABNORMAL) CBC auto differential (10/10/2023 12:50 PM EST) White Blood Count 8.0 4.8 - 10.8 X10*3/uL [facility] Red Blood Count 4.19(L) 4.20 - 5.50 X10*6/uL [facility] Hemoglobin 12.3 12.0 - 16.0 g/dl [facility] Hematocrit 36.6(L) 37.0 - 47.0 % [facility] Mean Corpuscular Volume 87.4 80.0 - 98.0 fL [facility] Mean Corpuscular Hemoglobin 29.4 27.0 - 33.0 pg [facility] Mean Corpuscular HGB Conc 33.6 31.0 - 35.0 g/dl [facility] Red Cell Distribution Width 12.8 11.0 - 16.0 % [facility] Platelet Count 252 160 - 400 X10*3/uL [facility] Mean Platelet Volume 9.5 9.4 - 12.3 fL [facility] Neutrophils Percent Auto 55.5 45 - 73 % [facility] Imm Gran Pct Auto 0.4 0.0 - 0.4 % [facility] Lymphocytes Percent Auto 31.3 20 - 40 % [facility] Monocytes Percent Auto 6.0 2 - 11 % [facility] Eosinophils Percent Auto 5.9(H) 0 - 4 % [facility] Basophils Percent Auto 0.9 0 - 2 % [facility] NRBC Pct Auto 0.0 0.0 - 0.2 /100WBC [facility] Neutrophils Absolute Auto 4.5 2.0 - 8.3 x10*3/uL [facility] Imm Gran Abs Auto 0.03 0.00 - 0.03 X10*3/uL [facility] Lymphocytes Absolute Auto 2.5 1.2 - 4.9 X10*3/uL [facility] Monocytes Absolute Auto 0.5 0.1 - 1.2 X10*3/uL [facility] Eosinophils Absolute Auto 0.5(H) 0.0 - 0.4 X10*3/uL [facility] Basophils Absolute Auto 0.1 0.0 - 0.2 X10*3/uL [facility] NRBC Abs Auto 0.000 0.0 - 0.012 X10*3/uL [facility] Blood Venous blood specimen / Unknown 10/10/2023 12:50 PM EST 10/10/2023 2:41 PM EST us Rolanda Thakur MD LAB BLOOD ORDERABLES Final Result [facility] [address] [place] [phone] [phone] documented in this encounter Visit Diagnoses Diagnosis Bilateral leg paresthesia- Primary Disturbance of skin sensation Anxiety Anxiety state, unspecified Diabetic polyneuropathy associated with type 2 diabetes mellitus ([facility]) documented in this encounter Care Teams Head Of Mobile Relationship Specialty Start Date End Date Rolanda Thakur MD [address] [place] [phone] PCP - General Internal Medicine 09/19/22 documented as of this encounter
--- OUTSIDE RECORDS SUMMARY | 2024-09-24 12:56 | XMS_ITS | Encounter Summary ---
Author Organization [employer] Address [address] [place] [address] Care Team Providers Care Software Development Test Engineer Name Role Phone Rolanda Thakur MD Primary Care Provider [phone]- [phone] Reason for Visit * Reason Onset Date Comments Referral 06/24/2024 Encounter Details Date Type Department Care Team ([facility] st Contact Info) Description 06/24/2024 Telephone [facility] MEDICINE [address] [place] [address] Rolanda Thakur MD [address] [place], [place] [phone] Referral Social History Tobacco Use Types Packs/Day [...] encounter Miscellaneous Notes * Telephone Encounter - Maureen Feng - 06/24/2024 3:57 PM EST Tc from pt requesting a call back, states they seen Dr. Alcantar on 06/21/24 and discussed referral for neurology. Pt is scheduled for sick visit with PCP on 06/25/24, pt would like to know if Dr. Alcantar will generated referral or if pt will need to keep upcoming appt. Please contact at [phone] documented in this encounter Plan of Treatment Not on file documented as of this encounter Visit Diagnoses Not on filedocumented in this encounter Additional Health Concerns Assessment Noted Time PHQ-9 Depression Total Score: 2 05/13/20 24 9:24 AM EDT documented as of this encounter Care Teams Software Development Test Engineer Relationship Specialty Start Date End Date Rolanda Thakur MD [address] [place] [phone] PCP - General Internal Medicine 09/19/22 documented as of this encounter
--- OUTSIDE RECORDS SUMMARY | 2024-09-24 12:56 | XMS_ITS | Encounter Summary ---
Author Organization [employer] Address [address] [place] [address] [place] [address] Care Team Providers Care Dowel Pin Worker Name Role Phone Rolanda Thakur MD Primary Care Provider Encounter Details Date Type Department Care Team ([facility] st Contact Info) Description 05/01/2023 Orders Only [facility] CH[facility] MED & PEDS [address] [place] [address] Rolanda Thakur MD [address] [place] [address] Diabetic polyneuropathy associated with type 2 diabetes mellitus (CMS/HCC) (Primary Dx) Social History Tobacco Use Types [...] as of this encounter Miscellaneous Notes * Result Encounter Note - Rolanda Thakur MD - 05/01/2023 10:23 AM EDT Please schedule a televisit for me to go over the blood work results of Ms Angely Pineda documented in this encounter Plan of Treatment Not on file documented as of this encounter Procedures Procedure Name Priority Date/Time Associated Diagnosis Comments VITAMIN D,25-OH,TOTAL,IA Routine 05/08/2023 11:04 AM EDT Diabetic polyneuropathy associated with type 2 diabetes mellitus ([facility]/HCC) TSH W/REFLEX TO FT4 Routine 05/08/2023 1 1:04 AM EDT Diabetic polyneuropathy associated with type 2 diabetes mellitus ([facility]/HCC) CBC WITH AUTO DIFFERENTIAL Routine 05/08/2023 11:04 AM EDT Diabetic polyneuropathy associated with type 2 diabetes mellitus ([facility]/HCC) HEMOGLOBIN A1C Routine 05/08/2023 11:04 AM EDT Diabetic polyneuropathy associated with type 2 diabetes mellitus ([facility]/HCC) HEPATIC FUNCTION PANEL Routine 05/08/2023 11:04 AM EDT Diabetic polyneuropathy associated with type 2 diabetes mellitus ([facility]/HCC) LIPID PANEL, STANDARD Routine 05/08/2023 11:04 AM EDT Diabetic polyneuropathy associated with type 2 diabetes mellitus ([facility]/HCC) BASIC METABOLIC PANEL Routine 05/08/2023 11:04 AM EDT Diabetic polyneuropathy associated with type 2 diabetes mellitus ([facility]/HCC) documented in this encounter Results * (ABNORMAL) Hemoglobin A1c (05/08/2023 11:04 AM EDT) Hemoglobin A1c 6.1(H) <6.0 % [facility] Comment:Hemoglobin A1C Refer ence Range Adults: 4.8 - 6.0 % Non diabetic: < 6.0 % Goal: < 7.0 %Additional Action Suggested: > 8.0 %Note: Hemoglobin A1c results are invalid for patients with abnormal amounts of HbF. Blood transfusions may impact the HbA1c concentration in the patient sample. Estimated Average Glucose 128 mg/dL [facility] Comment:eAG = Estimated ave rage glucose which is %A1C expressed asaverage glucose, using the formula of the T7J-VpxeiilJvxarlp Glucose study (ADAG), Diabetes Care, Vol.31,#8,Mar. 2007 Blood Venous blood specimen / Unknown 05/08/2023 11:04 AM EDT 05/08/2023 1:46 PM EDT us Rolanda Thakur MD LAB BLOOD ORDERABLES Final Result Performing Organization Address City/[facility]/ZIP Co de Phone Number [facility] [address] [place] [phone] * Vitamin D, 25-Hydroxy, Total, Immunoassay (05/08/2023 11:04 AM EDT) Vitamin D 25-OH Total 84.6 >30 ng/mL [facility] Comment:Health Based Referen ce Values*< 20 ng/mL Azbbpehjn40-06 ng/mL Insufficient> 30 ng/mL Sufficient*Arabella MCALLISTER. N Engl J Med. 2007;357:266-280Care must be taken in interpreting Vitamin D results fromdifferent laboratories and methodologies. Published datademonstrated that results from patients undergoinghemodialysis may show a negative bias when tested withvarious automated 25-OH vitamin D assays when compared toLC-MS/MS.When testing samples from patients whose predominant form ofVitamin D is Vitamin D2, such as patients receiving VitaminD2 supplementation, results that are subtherapeutic shouldbe confirmed with another method such as LC-MS/MS. Blood 05/08/2023 11:0 4 AM EDT 05/08/2023 1:47 PM EDT us Rolnada Thakur MD LAB BLOOD ORDERABLES Final Result Performing Organization Address [facility] Co de Phone Number [facility] [address] [place] [phone] * Hepatic Function Panel (05/08/2023 11:04 AM EDT) Bilirubin, Total 0.5 0.0 - 1.0 mg/dL [facility] Bilirubin, Direct 0.2 0.0 - 0.5 mg/dL [facility] Aspartate Amino Transferase 22 5 - 31 U/L [facility] Alanine Aminotransferase 18 0 - 31 U/L [facility] Total Protein 7.1 6.5 - 8.0 g/dL [facility] Albumin Level 4.4 3.5 - 5.0 g/dL [facility] Alkaline Phosphatase 70 39 - 117 U/L [facility] Blood Venous blood specimen / Unknown 05/08/2023 11:04 AM EDT 05/08/2023 1:47 PM EDT us Rolanda Thakur MD LAB BLOOD ORDERABLES Final Result [facility] [address] [place] [phone] * (ABNORMAL) Lipid Panel, Standard (05/08/2023 11:04 AM EDT) Triglycerides 110 <150 mg/dL [facility] Comment:Desirable Triglyceri de: less than 150 mg/dLBorderline High Triglyceride 150-199 mg/dLHigh Triglyceride: 200-499 mg/dLVery High Triglyceride: greater than or equal to 5OO mg/dL Cholesterol 198 <200 mg/dL [facility] Comment:Desirable Cholestero l: less than 200 mg/dLBorderline High Cholesterol: 200-239 mg/dLHigh Cholesterol: greater than 239 mg/dL LDL Cholesterol Calculated 121(H) <100 mg/dL [facility] Comment:Desirable LDL: less than 100 mg/dLNear Optimal/Above Optimal LDL: 110- 129 mg/dLBorderline High LDL: 130-159 mg/dLHigh LDL: 160-189 mg/dLVery High LDL: greater than or equal to 190 mg/dL HDL Cholesterol 55 >40 mg/dL [facility] Comment:Desirable HDL: great er than 40 mg/dL Note: This HDL assay may give artificially low results in patients with liver disease. Blood Venous blood specimen / Unknown 05/08/2023 11:04 AM EDT 05/08/2023 1:47 PM EDT us Rolanda Thakur MD LAB BLOOD ORDERABLES Final Result Performing Organization Address [facility]/ZIP Co de Phone Number [facility] [address] [place] [phone] * TSH W/Reflex to FT4 (05/08/2023 11:04 AM EDT) TSH reflex Free T4 0.53 0.32 - 4.0 uIU/mL [facility] Blood 05/08/2023 11:0 4 AM EDT 05/08/2023 1:47 PM EDT us Rolanda Thakur MD LAB BLOOD ORDERABLES Final Result Performing Organization Address [facility]/ZIP Co de Phone Number [facility] [address] [place] [phone] * (ABNORMAL) Basic Metabolic Panel (05/08/2023 11:04 AM EDT) Sodium 137 135 - 145 mmol/L [facility] Potassium 4.4 3.3 - 5.1 mmol/L [facility] Chloride 108 96 - 108 mmol/L [facility] Carbon Dioxide 24 22 - 29 mmol/L [facility] Anion Gap 9(L) 12 - 20 [facility] Urea Nitrogen (BUN) 14 9 - 16 mg/dL [facility] Creatinine, Serum 1.03 0.5 - 1.4 mg/dL [facility] Estimated Glomerular Filt Rate 53 [facility] Comment:NOTE: For -Am erican individuals, multiply the result by 1.210.Chronic Kidney Disease: Estimated GFR < 60 mL/min/1.44s1Atsevc Kidney Disease: Estimated GFR < 15 mL/min/1.73m2 Glucose 208(H) 60 - 115 mg/dL [facility] Calcium 10.1 8.4 - 10.2 mg/dL [facility] Blood Venous blood specimen / Unknown 05/08/2023 11:04 AM EDT 05/08/2023 1:47 PM EDT us Rolanda Thakur MD LAB BLOOD ORDERABLES Final Result [facility] [address] [place] [phone] [phone] * (ABNORMAL) CBC auto differential (05/08/2023 11:04 AM EDT) White Blood Count 8.6 4.8 - 10.8 X10*3/uL [facility] Red Blood Count 4.27 4.20 - 5.50 X10*6/uL [facility] Hemoglobin 12.6 12.0 - 16.0 g/dl [facility] Hematocrit 37.9 37.0 - 47.0 % [facility] Mean Corpuscular Volume 88.8 80.0 - 98.0 fL [facility] Mean Corpuscular Hemoglobin 29.5 27.0 - 33.0 pg [facility] Mean Corpuscular HGB Conc 33.2 31.0 - 35.0 g/dl [facility] Red Cell Distribution Width 13.0 11.0 - 16.0 % [facility] Platelet Count 266 160 - 400 X10*3/uL [facility] Mean Platelet Volume 9.5 9.4 - 12.3 fL [facility] Neutrophils Percent Auto 50.3 45 - 73 % [facility] Imm Gran Pct Auto 0.3 0.0 - 0.4 % [facility] Lymphocytes Percent Auto 33.4 20 - 40 % [facility] Monocytes Percent Auto 7.0 2 - 11 % [facility] Eosinophils Percent Auto 7.8(H) 0 - 4 % [facility] Basophils Percent Auto 1.2 0 - 2 % [facility] NRBC Pct Auto 0.0 0.0 - 0.2 /100WBC [facility] Neutrophils Absolute Auto 4.3 2.0 - 8.3 x10*3/uL [facility] Imm Gran Abs Auto 0.03 0.00 - 0.03 X10*3/uL [facility] Lymphocytes Absolute Auto 2.9 1.2 - 4.9 X10*3/uL [facility] Monocytes Absolute Auto 0.6 0.1 - 1.2 X10*3/uL [facility] Eosinophils Absolute Auto 0.7(H) 0.0 - 0.4 X10*3/uL [facility] Basophils Absolute Auto 0.1 0.0 - 0.2 X10*3/uL [facility] NRBC Abs Auto 0.000 0.0 - 0.012 X10*3/uL [facility] Blood Venous blood specimen / Unknown 05/08/2023 11:04 AM EDT 05/08/2023 1:46 PM EDT Rolanda Thakur MD LAB BLOOD ORDERABLES Final Result [facility] [address] [place] [phone] [phone] documented in this encounter Visit Diagnoses Diagnosis Diabetic polyneuropathy associated with type 2 diabetes mellitus (CMS/HCC)- Primary documented in this encounter Care Teams Dowel Pin Worker Relationship Specialty Start Date End Date Rolanda Thakur MD [address] [place] [phone] PCP - General Internal Medicine 09/19/22 documented as of this encounter
--- OUTSIDE RECORDS SUMMARY | 2024-09-24 12:56 | XMS_ITS | Clinical Summary ---
Author Organization [facility] Address [address] [place], [place] [id number] Care Team Providers Care Component Engineer Name Role Phone Rahel Hough MD Primary Care Provider Allergies Active Allergy Reactions Criticality Noted Date Comments Codeine 05/09/2017 Meperidine 05/09/2017 Gabapentin 05/09/2017 Lisinopril 05/09/2017 Meloxicam Nausea And Vomiting 10/22/2020 Morphine 05/09/2017 Oxycodone-Acetaminophen 05/09/2017 Medications Medication Sig Dispensed Refills Start Date End Date Status aspirin 81 MG EC tablet take 1 tablet by mouth once daily 0 04/29/2017 Active VITAMIN D HIGH POTENCY 1000 UNITS capsule 1 04/29/2017 Active glipiZIDE (GLUCOTROL XL) ER 24 hr tablet 10 mg 1 04/24/2017 Active hydrochlorothiazide (HYDRODIURIL) tablet 25 mg 1 04/29/2017 Active ibuprofen (ADVIL,MOTRIN) 600 MG tablet 0 04/24/2017 Active SYNTHROID 137 MCG tablet 1 04/24/2017 Active LIDODERM 5 % 0 04/06/2017 Active losartan (COZAAR) 100 MG tablet 1 04/29/2017 Active SYNTHROID 125 MCG tablet 1 08/02/2017 Active metFORMIN (GLUCOPHAGE) tablet 500 mg 0 08/02/2017 Active Multiple Vitamin (TAB-A-GEOVANNI) TABS take 1 tablet by mouth once daily 1 06/08/2017 Active naproxen (NAPROSYN) 500 MG tablet Take 500 mg by mouth 2 (two) times a day as needed. 0 08/01/2017 Active SUDOGEST 30 MG tablet 0 08/07/2017 Act artemio cetirizine (ZyrTEC) 10 MG tablet Take 10 mg by mouth daily. 0 09/28/2020 Active cloNIDine (CATAPRES) tablet 0.1 mg Take 0.5 tablets by mouth. 0 Active cyclobenzaprine (FLEXERIL) 10 MG tablet Take 10 mg by mouth daily. 0 10/23/2020 Active hydrOXYzine (ATARAX) 25 MG tablet Take 25 mg by mouth daily. 0 09/09/2020 Active Roxana-3 Fatty Acids (FISH OIL) 1000 MG CAPS TAKE ONE CAPSULE BY MOUTH TWO TIMES A DAY. 0 09/27/2020 Active Active Problems Problem Noted Date Diagnosed Date Primary osteoarthritis of both knees 05/15/2017 Family History Medical History Relation Name Comments HIV Brother Diabetes Father Heart disease Mother Relation Name Status Comments Brother Father Mother Social History Tobacco Use Types Packs/Day Years Used Date Smoking Tobacco: Never Assessed Sex and Gender Information Value Date Recorded Sex Assigned at Not on file Gender Identity Not on file Sexual Orientation Not on file Job Start Date Occupation Industry Not on file Not on file Not on file Last Filed Vital Signs Vital Sign Reading Time Taken Comments Blood Pressure - - Pulse - - Temperature - - Respiratory Rate - - Oxygen Saturation - - Inhaled Oxygen Concentration - - Weight 72.6 kg (160 lb) 11/20/2020 11:20 AM EDT Height 165.1 cm (5' 5 ) 11/20/2020 11:20 AM EDT Body Mass Index 26.63 11/20/2020 11:20 AM EDT Plan of Treatment Health Maintenance Due Date Last Done Comments Hepatitis C Screening 1950 COVID-19 Vaccine (#1) 01/24/1951 Depression Screening 1963 Preventative Health Evaluation 1969 Colon Cancer Screening (Colonoscopy) 1996 Breast Cancer Screening (Mammogram) 2001 Fall Risk Assessment 2016 Osteoporosis Screening (DEXA Scan) 2016 Influenza Vaccine (#1) 2024 , 08/23/2019, 07/02/2018, Additional history exists RSV Adult > 60+ Yrs or (1 - 1-dose 75+ series) 2026 DTap / Tdap / Td (5 - Td or Tdap) 10/07/2031 10/07/2021, 01/19/2019, 04/21/2016, Additional history exists Shingrix-Zoster Vaccine Completed 07/02/2018, 04/26 Pneumococcal Vaccine Completed 04/26/2019, 05/09/2017, 07/26/2016, Additional history exists Hepatitis B Vaccines Aged Out No long er eligible based on patient's age to complete this topic RSV Ped < 20 months Aged Out No longe r eligible based on patient's age to complete this topic Care Teams Component Engineer Relationship Specialty Start Date End Date Rahel Hough MD [address] [facility] [place] [address] PCP - General Internal Medicine 11/20/20
--- OUTSIDE RECORDS SUMMARY | 2024-09-24 12:56 | XMS_ITS | Encounter Summary ---
Author Organization [employer] Address [address] [place] [address] Care Team Providers Care Extrusion Operator Name Role Phone Rolanda Thakur MD Primary Care Provider [phone] Reason for Visit * Reason Onset Date Comments Referral 06/13/2024 Encounter Details Date Type Department Care Team (Late st Contact Info) Description 06/13/2024 Telephone [facility] MEDICINE [address] [place] [address] Rolanda Thakur MD [address] [place], [place] [phone] Referral Social History Tobacco Use Types Packs/Day [...] Miscellaneous Notes * Telephone Encounter - Brisa Colon - 06/18/2024 3:11 PM EDT VM left for patient regarding neurology referral information request. * Telephone Encounter - Razmichael Manuel - 06/13/2024 4:29 PM EDT Tc from pt requesting call back regarding neurology referral. Pt requested nurses do not call between 8:00 to 3:30. documented in this encounter Plan of Treatment Not on file documented as of this encounter Visit Diagnoses Not on filedocumented in this encounter Additional Health Concerns Assessment Noted Time PHQ-9 Depression Total Score: 2 05/13/20 24 9:24 AM EDT documented as of this encounter Care Teams Extrusion Operator Relationship Specialty Start Date End Date Rolanda Thakur MD [address] [place] [address] PCP - General Internal Medicine 09/19/22 documented as of this encounter
--- OUTSIDE RECORDS SUMMARY | 2024-09-24 12:57 | XMS_ITS | Encounter Summary ---
Author Organization [employer] Address [address] [facility] 7 [place] [address] Care Team Providers Care Wood Shop Teacher Name Role Phone Rolanda Thakur MD Primary Care Provider [phone] Reason for Visit * Reason Onset Date Comments Nurse Triage 09/24/2024 Encounter Details Date Type Department Care Team (Late st Contact Info) Description 09/24/2024 Telephone [facility] MEDICINE [address] [place] [address] Rolanda Thakur MD [address] [place] [address] Nurse Triage Social History Tobacco Use Types [...] before you got money to buy more: Never True 09/10/2024 Within the past 12 months,th e food you bought just didn't last and you didn't have enough money to get more: Never True Transportation Answer Date Recorded In the past 12 months, has l ack of transportation kept you from medical appts, meetings, work or from getting things needed for daily living? No 07/06/2024 Utilities Answer Date Recorded In the past 12 months, has t he electric, gas, oil or water company threatened to shut off services in your home? No 09/10/2024 Depression Answer Date Recorded Patient Health Questionnaire-2 [...] encounter Miscellaneous Notes * Telephone Encounter - Henny Tan RN - 09/24/2024 9:28 AM EST Call returned to Angely Pineda to triage below. Reports having onset of cough, runny nose and someSOB since early AM today at 4am. Pt states started having runny nose yesterday. Per pt having pain with deep breath. Pt denies cough being productive. Pt using OTC Tylenol cold/flu. Pt denies any Fever. Pt had negative COVID-19 testing. Pt offered WIC for today as no appts in [facility]. Pt states gets panic attacks if has to wait . Pt advised unfortunately no appts in [facility]> Unable to schedule ahead for WIC. Pt states will seek [facility] clinic on [facility] in [place]. Will send to team as FYI to obtain notes PRN. Protocol Used: COVID-19 - Diagnosed or Suspected (Adult) Protocol-Based Disposition: Discuss with PCP and Callback by Nurse Today Video visit offer not recorded Positive Triage Question: * COVID-19 infection suspected and mild symptoms (cough, fever, or others) with negative COVID-19 rapid test * All higher-acuity triage questions were negative Care Advice Discussed: * Reassurance and Education - Suspected COVID-19 and Negative Rapid COVID-19 Test * Telephone Encounter - Harriet Ayse Blood - 09/24/2024 8:34 AM EST Symptoms: Cough, Runny Nose, Breathing Trouble (Pt states breath cut a little) Outcome: Schedule an urgent appointment (within 1 hour) or talk to a nurse or provider soon Reason: Caller denied all higher acuity questions The caller accepted this outcome. [phone] documented in this encounter Plan of Treatment Not on file documented as of this encounter Visit Diagnoses Not on filedocumented in this encounter Additional Health Concerns Assessment Noted Time PHQ-9 Depression Total Score: 2 05/13/20 24 9:24 AM EDT documented as of this encounter Care Teams Wood Shop Teacher Relationship Specialty Start Date End Date Rolanda Thakur MD [address] [place] [phone] PCP - General Internal Medicine 09/19/22 documented as of this encounter
--- OUTSIDE RECORDS SUMMARY | 2024-09-24 12:57 | XMS_ITS | Encounter Summary ---
Author Organization [employer] Address [address] [place] [address] [place] [address] Care Team Providers Care Business Services Analyst Name Role Phone Rolanda Thakur MD Primary Care Provider [phone]- [phone] Encounter Details Date Type Department Care Team ([facility] st Contact Info) Description 03/28/2024 Orders Only [facility] CHC MED & PEDS [address] [place], [place] [phone] Karen Alcantar MD [address] [place] [address] Social History Tobacco Use Types Packs/Day Years [...] on filedocumented in this encounter Care Teams Business Services Analyst Relationship Specialty Start Date End Date Rolanda Thakur MD [address] [place] [address] PCP - General Internal Medicine 09/19/22 documented as of this encounter
--- OUTSIDE RECORDS SUMMARY | 2024-09-24 12:57 | XMS_ITS | Encounter Summary ---
Author Organization [employer] Address [address] [place] [address] [place] [address] Care Team Providers Care Rap Artist Name Role Phone Roalnda Thakur MD Primary Care Provider [phone]- [phone] Reason for Visit * Reason Onset Date Comments Medication Question 12/09/2022 Encounter Details Date Type Department Care Team ([facility] st Contact Info) Description 12/09/2022 Telephone [facility] CHC MED & PEDS [address] [place] [address] Rolanda Thakur MD [address] [place] [address] Medication Question Social History Tobacco Use Types [...] suspected to have Coronavirus/COVID-19? No / Unsure 12/06/2022 2:34 PM EDT documented as of this encounter Miscellaneous Notes * Telephone Encounter - Hannah Altamiranojared Betancourt - 12/09/2022 3:51 PM EDT Tc from [facility] requesting a clarification in new script for Synthroid 50 MCG tablet if dosage was sent incorrectly because in last script (levothyroxine (Synthroid) 150 MCG tablet) it chy462 MCG and New script is it 50 mcg so pharmacy is requesting some clarification Please contact Pharmacy at [phone] documented in this encounter Plan of Treatment Not on file documented as of this encounter Visit Diagnoses Not on filedocumented in this encounter Care Teams Rap Artist Relationship Specialty Start Date End Date Rolanda Thakur MD [address] [place] [phone] PCP - General Internal Medicine 09/19/22 documented as of this encounter
--- OUTSIDE RECORDS SUMMARY | 2024-09-24 12:57 | XMS_ITS | Encounter Summary ---
Author Organization [employer] Address [address] [place] [address] [place] [address] Care Team Providers Care Manager Outpatient Name Role Phone Rolanda Thakur MD Primary Care Provider [phone] Encounter Details Date Type Department Care Team ([facility] st Contact Info) Description 01/22/2024 Orders Only [facility] CHC MED & PEDS [address] [place] [address] Rolanda Thakur MD [address] [place] [address] Benign essential hypertension Social History Tobacco Use Types Packs/Day Years [...] Name Priority Date/Time Associated Diagnosis Comments XR TOES 2+ VIEWS RIGHT Routine 02/19/2024 11:22 AM EDT documented in this encounter Results * XR Toes 2+ Views Right (02/19/2024 11:22 AM EDT) Anatomical Region Laterality Modality Lower Extremities, Toes Left Radiogra phic Imaging 02/19/2024 11:2 2 AM EDT Narrative 02/19/2024 12:38 PM EDT ?[facility] ?[address] ?[place] [address] ?XRay Report ? Signed ? Patient: Angely Pineda ?MR#: [id number] ? : 1950 ?Acct:[id number] ? Age/Sex: 73 / F ?ADM Date: 02/19/24 ? Loc: HO.HHCX ? Attending Dr: Migdalia PALMER ? Ordering Physician: Migdalia Loza ?? Date of Service: 02/19/24 ?? Procedure(s): XR toe RT min 2V ?? Accession Number(s): [id number] ? cc: Migdalia Loza ? EXAMINATION: ?? BILATERAL TOES ? CLINICAL INFORMATION: ?? A heavy object rolled over the toes. ? COMPARISON: ?? None available. ? TECHNIQUE: ?? 5 views right toes, 3 views left toes ? FINDINGS: ?? Right: A screw is present through the fifth metatarsal. Some minimal ?? degenerative changes are present at the interphalangeal joints and ?? first MTP joint. No fractures or bony destruction. ? Left: Some minimal degenerative changes are present at the ?? interphalangeal joints and first MTP joint. No fractures or bony ?? destruction. ? XR/XR toe RT min 2V ?? IMPRESSION: ?? No evidence of an acute osseous injury. Mild degenerative changes as ?? described above. ? Dictated By: ?Billy Mosqueda MD ? Signed By: ?<Electronically signed by Billy Mosqueda MD in OV> ? 02/19/24 1234 ? DD/ 112 ? TD/TT: ? Router Operator Radial: SS ? Procedure Note Darrell Fonseca - 02/19/2024 [facility] [address] [place] [address] XRay Report Signed Patient: Angely Pineda#: [id number] : 1Acct:[id number] Age/Sex: 73 / FADM Date: 02/19/24 Loc: HO.HHCX Attending Dr: Migdalia PALMER Ordering Physician: Migdalia Loza Date of Service: 02/19/24 Procedure(s): XR toe RT min 2V Accession Number(s): [id number] cc: Migdalia Loza EXAMINATION: BILATERAL TOES CLINICAL INFORMATION: A heavy object rolled over the toes. COMPARISON: None available. TECHNIQUE: 5 views right toes, 3 views left toes FINDINGS: Right: A screw is present through the fifth metatarsal. Some minimal degenerative changes are present at the interphalangeal joints and first MTP joint. No fractures or bony destruction. Left: Some minimal degenerative changes are present at the interphalangeal joints and first MTP joint. No fractures or bony destruction. XR/XR toe RT min 2V IMPRESSION: No evidence of an acute osseous injury. Mild degenerative changes as described above. Dictated By: Billy Mosqueda MD Signed By: <Electronically signed by Billy Mosqueda MD in OV> 02/19/24 1234 DD/ 1122 TD/TT: Router Operator Radial: SS Migdalia PALMER IMG XR PROCEDURES Edited Resul t - Final documented in this encounter Visit Diagnoses Diagnosis Benign essential hypertension Essential hypertension, benign documented in this encounter Care Teams Manager Outpatient Relationship Specialty Start Date End Date Rolanda Thakur MD [address] [place] [address] PCP - General Internal Medicine 09/19/22 documented as of this encounter
--- OUTSIDE RECORDS SUMMARY | 2024-09-24 12:57 | XMS_ITS | Encounter Summary ---
Author Organization [employer] Address [address] [place] [address] [place] [address] Care Team Providers Care Mangle Press Catcher Name Role Phone Rolanda Thakur MD Primary Care Provider [phone] Reason for Visit * Reason Onset Date Comments Referral 09/29/2022 Encounter Details Date Type Department Care Team ([facility] st Contact Info) Description 09/29/2022 Telephone [facility] CHC MED & PEDS [address] [place] [address] Rolanda Thakur MD [address] [place] [address] Referral Social History Tobacco Use Types Packs/Day [...] encounter Miscellaneous Notes * Telephone Encounter - Machelle Adam RN - 10/04/2022 11:00 AM EST Per previous message from pt, pt is requesting for EMG testing with Dr Dempsey. Spoke with Keena Manuel who states PCP will need to put in an order for EMG and message routed to Roxanne Castañeda. Perpt to fax order to Dr Dempsey on [phone] Dempsey's office on [phone]. Will forward message to provider. RN called Roxanne and gave her the phone and fax number to Dr Dempsey's office and also to f/u when EMG order is placed by PCP. * Telephone Encounter - Machelle Adam RN - 10/03/2022 10:09 AM EST Return call placed to Haylie at [facility] neuroscience, spoke with Jumana who states their office donot see pt for diabetic polyneuropathy but instead sees pt for foot drop or other issue. States Haylieis unavailable at this time but will informed her to call [facility] back if needed. Will forward message to PCP as FYI. * Telephone Encounter - Brinda Barnard - 09/29/2022 1:30 PM EST Tc from Haylie from [facility] med / rehab calling to inform they need more dx clarification for referral that was sent . and phone # [phone] documented in this encounter Plan of Treatment Not on file documented as of this encounter Visit Diagnoses Diagnosis Diabetic polyneuropathy associated with diabetes mellitus due to underlying condition (CMS/[facility])- Primary documented in this encounter Care Teams Mangle Press Catcher Relationship Specialty Start Date End Date Rolanda Thakur MD [address] [place] [address] PCP - General Internal Medicine 09/19/22 documented as of this encounter
--- OUTSIDE RECORDS SUMMARY | 2024-09-24 12:57 | XMS_ITS | Encounter Summary ---
Author Organization [employer] Address [address] [place] [address] 7 [place] [address] Care Team Providers Care Environmental Officer Name Role Phone Rolanda Thakur MD Primary Care Provider [phone] Reason for Visit * Reason Onset Date Comments Med Refill 09/18/2024 Encounter Details Date Type Department Care Team (Late st Contact Info) Description 09/18/2024 Refill [facility] MEDICINE [address] [place] [address] Wyatt Huizar MD [address] [place], [place] [phone] Neck pain on left side Social History Tobacco Use Types Packs/Day Years [...] your housing situation today? I have johnny seferino 07/06/[address] you li [...] as of this encounter Visit Diagnoses Diagnosis Neck pain on left side documented in this encounter Additional Health Concerns Assessment Noted Time PHQ-9 Depression Total Score: 2 05/13/20 24 9:24 AM EDT documented as of this encounter Care Teams Environmental Officer Relationship Specialty Start Date End Date Rolanda Thakur MD [address] [place] [address] PCP - General Internal Medicine 09/19/22 documented as of this encounter
--- OUTSIDE RECORDS SUMMARY | 2024-09-24 12:57 | XMS_ITS | Encounter Summary ---
Author Organization [employer] Address [address] [facility] 7 [place] [address] Care Team Providers Care Engine Repairer Production Name Role Phone Rolanda Thakur MD Primary Care Provider [phone] Reason for Referral * Consultation (Routine) - Authorized Specialty Diagnoses / Procedures Referred By Contac t Referred To Contact Podiatry Diagnoses Type 2 diabetes mellitus without complication, without long-term current use of insulin (CMS/[facility]) Diabetic polyneuropathy associated with type 2 diabetes mellitus ([facility]) Rolanda Thakur MD [address] [place] [address] Phone: tel: fax: John Roberson DPM [address] [facility] 1st Floor (Left) [place] [address] Phone: tel: fax: Referral ID Status Reason Start Date Expiration Date Visits Requested Visits Authorized [id number] Authorized Specialty Services Required 09/10/2024 09/10/2025 1 1 Encounter Details Date Type Department Care Team (Latest Contact Info) Description 09/10/2024 3:45 PM EST Office Visit [facility] CHC MED & PEDS [address] [place] [address] Rolanda Thakur MD [address] [place] [address] [phone] Type 2 diabetes mellitus without complication, without long-term current use of insulin (CMS/HCC) (Primary Dx); Diabetic polyneuropathy associated with type 2 diabetes mellitus (CMS/HCC); Spondylosis of cervical region without myelopathy or radiculopathy; Benign essential hypertension Social History Tobacco Use [...] AM EDT documented as of this encounter Last Filed Vital Signs Vital Sign Reading Time Taken Comments Blood Pressure 188/90 09/10/2024 3:09 PM EST Pulse 64 09/10/2024 3:09 PM EST Temperature 36.6 ??C (97.8 ??F) 09/10/2024 3:09 PM ES T Respiratory Rate 18 09/10/2024 3:09 PM EST Oxygen Saturation 98% 09/10/2024 3:09 PM EST Inhaled Oxygen Concentration - - Weight 70.8 kg (156 lb) 09/10/2024 3:09 PM EST Height 162.6 cm (5' 4 ) 09/10/2024 3:09 PM EST Body Mass Index 26.78 09/10/2024 3:09 PM EST documented in this encounter Progress Notes * Rolanda Thakur MD - 09/10/2024 3:45 PM EST Subjective Patient ID: Angely Pineda is a 74 y.o. female who presents for No chief complaint on file.. HPI Here for follow up 1) H/o HTN. BP well controlled at home. No headache/blurry vision. 2) h/o neck pain w/ cervical spine xray showing degenerative changed. Pt was advised physical therapy 3) pt was requesting a referral to endocrinology which was already generated. 4) was evaluated to the utility service worker: Not on statin. Will be followed up in a year. 5) currently receiving psychotherapy w/ Dr Laboy for her PTSD. Pt denies SI/HI. Patient Active Problem List Diagnosis Benign essential hypertension Type 2 diabetes mellitus (CMS/HCC) Diabetic neuropathy (CMS/HCC) Peripheral neuropathy Acquired hypothyroidism Generalized anxiety disorder with panic attacks Swelling of lip, tongue, and throat Neck pain on left side Acute maxillary sinusitis Current Outpatient Medications on File Prior to Visit Medication Sig Dispense Refill ascorbic acid (Vitamin C) 1000 MG tablet TAKE 1 TABLET BY MOUTH EVERY DAY 30 tablet 0 ascorbic acid (Vitamin C) 500 MG tablet TAKE 1 TABLET BY MOUTH EVERY DAY 90 tablet 1 aspirin (Aspirin Low Dose) 81 MG EC tablet Take 1 tablet (81 mg) by mouth Once per day. 90 tablet 3 Blood Pressure kit Check the BP daily 1 kit 0 busPIRone (Buspar) 10 MG tablet Take 1 tablet (10 mg) by mouth 2 times daily. 60 tablet 11 cetirizine (ZyrTEC) 10 MG tablet Take 1 tablet (10 mg) by mouth Once per day. 30 tablet 11 clonazePAM (KlonoPIN) 0.5 MG tablet TAKE 1 TABLET BY MOUTH EVERY DAY NEEDED FOR PANIC ATTACKS 10tablet 3 cloNIDine (Catapres) 0.1 MG tablet TAKE 1 TABLET(0.1 MG) BY MOUTH THREE TIMES DAILY 90 tablet 2 cyclobenzaprine (Flexeril) 10 MG tablet TAKE 1 TABLET BY MOUTH THREE TIMES DAILY( EVERY EIGHT HOURS) 30 tablet 0 D3-1000 25 MCG (1000 UT) capsule TAKE 1 CAPSULE BY MOUTH EVERY DAY 90 capsule 2 glipiZIDE (Glucotrol) 10 MG tablet TAKE 1 TABLET(10 MG) BY MOUTH BEFORE BREAKFAST AND BEFORE THE EVENING MEAL 60 tablet 3 glucose 4 g chewable tablet Chew 4 tablets (16 g) if needed for low blood sugar. 50 tablet 12 glucose blood (Shoozy Ultra) test strip USE DIRECTED TO TEST BLOOD GLUCOSE TWICE DAILY 100 strip 11 losartan (Cozaar) 100 MG tablet TAKE 1 TABLET(100 MG) BY MOUTH IN THE MORNING 90 tablet 1 metFORMIN (Glucophage) 500 MG tablet TAKE 1 TABLET BY MOUTH TWICE DAILY WITH MEALS 180 tablet 0 Multiple Vitamin (Daily-Saadia Multivitamin) tablet TAKE 1 TABLET BY MOUTH EVERY DAY 30 tablet 11 qfwfocgt-zjchpfjwqj-drxqclhof (Neosporin) 5-400-5000 ointment Apply topically 4 times daily. 3.5 g 0 homedeco2uTouch Delica Lancets 33G mis Use to check blood sugar four times daily Synthroid 125 MCG tablet TAKE 1 TABLET BY MOUTH ON MONDAY, MONDAY, AND MONDAY AND ALTERNATE [id number] MCG ON MONDAY, MONDAY, MONDAY, AND MONDAY 36 tablet 3 Synthroid 125 MCG tablet TAKE 1 TABLET BY MOUTH ON MONDAY, MONDAY, AND MONDAY AND ALTERNATE [id number] MCG ON MONDAY, MONDAY, MONDAY, AND MONDAY 36 tablet 11 Synthroid 137 MCG tablet TAKE 1 TABLET BY MOUTH EVERY DAY BEFORE BREAKFAST 90 tablet 3 [DISCONTINUED] clonazePAM (KlonoPIN) 0.5 MG tablet Take 1 tablet (0.5 mg) by mouth Once per day for10 days. 10 tablet 0 [DISCONTINUED] losartan (Cozaar) 100 MG tablet Take 1 tablet (100 mg) by mouth Once per day. 90 tablet 3 [DISCONTINUED] spironolactone (Aldactone) 25 MG tablet Take 1 tablet (25 mg) by mouth 2 times daily. 60 tablet 3 No current facility-administered medications on file prior to visit. Allergies Allergen Reactions Meloxicam Acetaminophen Unknown Codeine Other reaction(s): vomiting, headache Gabapentin Other reaction(s): n/v headache Hydromorphone Other reaction(s): n/v headache Lisinopril Cough Meperidine Unknown Other reaction(s): Headache and vomiting Morphine Other and Unknown Other reaction(s): Headache and vomiting Nitrofurantoin Diarrhea Oxycodone Other reaction(s): n/v headache, Unknown Oxycodone-Acetaminophen Other reaction(s): vomiting Prednisone Shellfish Allergy Other reaction(s): Stomach pain Trimethoprim Nausea And Vomiting Pt claims she is not allergic to Trimethoprim sulfamethoxazole Review of Systems Constitutional: Negative for appetite change, chills, diaphoresis and fatigue. Respiratory: Negative for cough and choking. Cardiovascular: Negative for leg swelling. Musculoskeletal: Positive for neck pain. Negative for back pain and gait problem. Skin: Negative for rash. Objective BP (!) 188/90 (BP Location: Right arm, Patient Position: Sitting, BP Cuff Size: Adult) Pulse 64 Temp 97.8 ??F (36.6 ??C) (Oral) Resp 18 Ht 5' 4 (1.626 m) Wt 156 lb (70.8 kg) SpO2 98% BMI 26.78 kg/m?? Physical Exam Constitutional: General: She is not in acute distress. Appearance: Normal appearance. She is not ill-appearing, toxic-appearing or diaphoretic. Cardiovascular: Rate and Rhythm: Normal rate. Pulmonary: Effort: Pulmonary effort is normal. Musculoskeletal: Comments: Mild tenderness to palpation of the Cervical spine. Neurological: General: No focal deficit present. Mental Status: She is alert. Psychiatric: Mood and Affect: Mood normal. Assessment/Plan Diagnoses and all orders for this visit: Type 2 diabetes mellitus without complication, without long-term current use of insulin ([facility]) Comments: Stable Endocrinology evaluation as per patient request The referral was generated. Orders: - Referral to Podiatry; Future Diabetic polyneuropathy associated with type 2 diabetes mellitus ([facility]) Comments: No acute intervention Endocrinology eval as requested Orders: - Referral to Podiatry; Future Spondylosis of cervical region without myelopathy or radiculopathy Comments: physical therapy recommended. heat therapy Diclofenac gel. Orders: - capsaicin (Zostrix) 0.025 % cream; Apply topically 2 times daily. Benign essential hypertension Comments: BP is at goal at home 126/72 yesterday evening documented in this encounter Plan of Treatment Scheduled Referrals Name Type Priority Associated Diagnoses Orde r Schedule Referral to Podiatry Outpatient Referral Routine Type 2 diabetes mellitus without complication, without long-term current use of insulin (CMS/HCC) Diabetic polyneuropathy associated with type 2 diabetes mellitus (CMS/HCC) Expected: 09/10/2024 (Approximate), Expires: 09/10/2025 documented as of this encounter Visit Diagnoses Diagnosis Type 2 diabetes mellitus without complication, without long-term current use of insulin (CMS/HCC)- Primary Diabetic polyneuropathy associated with type 2 diabetes mellitus (CMS/HCC) Spondylosis of cervical region without myelopathy or radiculopathy Benign essential hypertension Essential hypertension, benign documented in this encounter Additional Health Concerns Assessment Noted Time PHQ-9 Depression Total Score: 2 05/13/20 24 9:24 AM EDT documented as of this encounter Care Teams Engine Repairer Production Relationship Specialty Start Date End Date Rolanda Thakur MD [address] [place] [address] PCP - General Internal Medicine 09/19/22 documented as of this encounter
--- OUTSIDE RECORDS SUMMARY | 2024-09-24 12:57 | XMS_ITS | Encounter Summary ---
Author Organization [employer] Address [address] [place] [address] [place] [address] Care Team Providers Care Kitchen Operator Name Role Phone Rolanda Thakur MD Primary Care Provider [phone]- [phone] Encounter Details Date Type Department Care Team (Late st Contact Info) Description 12/07/2023 Telephone [facility] MEDICINE [address] [place] [phone] Rolanda Thakur MD [address] [place] [address] Social History Tobacco Use Types Packs/Day Years [...] on filedocumented in this encounter Care Teams Kitchen Operator Relationship Specialty Start Date End Date Rolanda Thakur MD [address] [place] [address] PCP - General Internal Medicine 09/19/22 documented as of this encounter
--- OUTSIDE RECORDS SUMMARY | 2024-09-24 12:57 | XMS_ITS | Encounter Summary ---
Author Organization [employer] Address [address] [place] [address] [place] [address] Care Team Providers Care Wool Batting Worker Name Role Phone Rolanda Thakur MD Primary Care Provider [phone]- [phone] Reason for Visit * Reason Comments Med Refill Encounter Details Date Type Department Care Team ([facility] st Contact Info) Description 09/17/2024 Refill [facility] CHC MED & PEDS [address] [place], [place] [phone] Rolanda Thakur MD [address] [place] [address] Diabetic polyneuropathy associated with type 2 diabetes [...] documented as of this encounter Care Teams Wool Batting Worker Relationship Specialty Start Date End Date Rolanda Thakur MD [address] [place] [address] PCP - General Internal Medicine 09/19/22 documented as of this encounter
--- OUTSIDE RECORDS SUMMARY | 2024-09-24 12:57 | XMS_ITS | Encounter Summary ---
Author Organization [employer] Address [address] [place] [address] [facility] [place] [address] Care Team Providers Care French Comber Name Role Phone Rolanda Thakur MD Primary Care Provider [phone] Reason for Referral * Consultation (Routine) - Closed Specialty Diagnoses / Procedures Referred By Freddy meadows Referred To Contact Neurology Diagnoses Other polyneuropathy Rolanda Thakur MD [address] [place] [address] Phone: tel: fax: [facility] Neurology [address] [place], [place] Phone: tel: fax: Referral ID Status Reason Start Date Expiration Date V isits Requested Visits Authorized [id number] Closed Specialty Services Required 11/22/2023 11/21/2024 1 1 * Consultation (Routine) - Closed Specialty Diagnoses / Procedures Referred By Freddy meadows Referred To Contact Physiatry Diagnoses Other polyneuropathy Rolanda Thakur MD [address] [place] [address] Phone: tel: fax: Referral ID Status Reason Start Date Expiration Date V isits Requested Visits Authorized [id number] Closed Specialty Services Required 11/17/2023 11/16/2024 1 1 Encounter Details Date Type Department Care Team (Late st Contact Info) Description 11/16/2023 Orders Only [facility] CHC MED & PEDS [address] [place] [address] Rolanda Thakur MD [address] [place] [address] Other polyneuropathy (Primary Dx) Social History Tobacco Use Types [...] Associated Diagnoses Orde r Schedule Referral to Physiatry Outpatient Referral Routine Other polyneuropathy Expected: 11/17/2023 (Approximate), Expires: 11/16/2024 Referral to Neurology Outpatient Referral Routine Other polyneuropathy Expected: 11/22/2023 (Approximate), Expires: 11/21/2024 documented as of this encounter Visit Diagnoses Diagnosis Other polyneuropathy- Primary documented in this encounter Care Teams French Comber Relationship Specialty Start Date End Date Rolanda Thakur MD [address] [place] [address] PCP - General Internal Medicine 09/19/22 documented as of this encounter
--- OUTSIDE RECORDS SUMMARY | 2024-09-24 12:57 | XMS_ITS | Encounter Summary ---
Author Organization [employer] Address [address] [place] [address] [place] [address] Care Team Providers Care Silver Recovery Operator Name Role Phone Rolanda Thakur MD Primary Care Provider [phone]- [phone] Reason for Visit * Reason Onset Date Comments Medication Question 12/08/2022 Encounter Details Date Type Department Care Team ([facility] st Contact Info) Description 12/08/2022 Telephone [facility] CHC MED & PEDS [address] [place] [address] Rolanda Thakur MD [address] [place] [address] Medication Question Social History Tobacco Use Types [...] encounter Miscellaneous Notes * Telephone Encounter - Alison Rondon - 12/08/2022 3:39 PM EDT Tc from patient calling in regards to medication levothyroxine 150 mg. Requested a call back. documented in this encounter Plan of Treatment Not on file documented as of this encounter Visit Diagnoses Not on filedocumented in this encounter Care Teams Silver Recovery Operator Relationship Specialty Start Date End Date Rolanda Thakur MD [address] [place] [address] PCP - General Internal Medicine 09/19/22 documented as of this encounter
--- OUTSIDE RECORDS SUMMARY | 2024-09-24 12:57 | XMS_ITS | Encounter Summary ---
Author Organization [place] [address] Care Team Providers Care Professor Of Archaeology Name Role Phone Rolanda Thakur MD Primary Care Provider +1 -[phone] Encounter Details Date Type Department Care Team (Latest Contact Info) Description 09/07/2024 9:45 AM EST - 09/07/2024 11:59 PM EST Hospital Encounter [facility] Xray [address] [place] [id number] Pain Discharge Disposition: Home or Self Care Social History Tobacco Use Types Packs/Day Years [...] file Not on file Not on file documented as of this encounter Medications at Time of Discharge Medication Sig Dispensed Refills Start Date End Date aspirin 81 mg chewable tablet Chew 1 tablet (81 mg total) 1 (one) time each day. B complex tablet Take 1 tablet by mouth 1 (one) time each day. busPIRone (BUSPAR) 10 mg tablet Take 1 tablet (10 mg total) by mouth 2 (two) times a day. busPIRone (BUSPAR) 5 mg tablet Take by mouth 2 (two) times a day. calcium carbonate/vitamin D3 (CALCIUM 500 + D ORAL) Take by mouth 1 (one) time each day. cetirizine (ZyrTEC) 10 mg tablet Take 1 tablet (10 mg total) by mouth 1 (one) time each day. cholecalciferol (Vitamin D3) 50 mcg (2,000 unit) capsule Take 1 capsule (2,000 Units total) by mouth 1 (one) time each day. clonazePAM (KlonoPIN) 0.5 mg tablet Take 1 tablet (0.5 mg total) by mouth if needed for anxiety. cloNIDine (CATAPRES) 0.1 mg tablet Take 1 tablet (0.1 mg total) by mouth 3 (three) times a day. docosahexaenoic acid/epa (FISH OIL ORAL) Take by mouth 1 (one) time each day. glipiZIDE (GLUCOTROL) 10 mg tablet Take 1 tablet (10 mg total) by mouth 2 (two) times a day before meals. levothyroxine (SYNTHROID, LEVOTHROID) 125 mcg tablet Take 1 tablet (125 mcg total) by mouth. Monday and Monday and 137 mcg Mon and Sundays SYNTHROID BRAND ONLY levothyroxine (SYNTHROID, LEVOTHROID) 137 mcg tablet Take 1 tablet (137 mcg total) by mouth 1 (one) time each day before breakfast. Monday and Monday and 125 mcg on Monday and Monday SYNTHROID BRAND ONLY losartan (COZAAR) 100 mg tablet Take 1 tablet (100 mg total) by mouth 1 (one) time each day. metFORMIN (GLUCOPHAGE) 500 mg tablet Take 1 tablet (500 mg total) by mouth 2 (two) times a day with meals. multivitamin tablet Take 1 tablet by mouth 1 (one) time each day. Vitamin C tablet Take 1 tablet (100 mg total) by mouth 1 (one) time each day. documented as of this encounter Discharge Disposition Disposition Code Departure Means Destination Home or Self Care documented in this encounter Plan of Treatment Not on file documented as of this encounter Procedures Procedure Name Priority Date/Time Associated Diagnosis Comments XR THORACIC SPINE 2 VIEWS Routine 09/07/2024 10:06 AM EST Pain documented in this encounter Results * XR Thoracic Spine 2 Views (09/07/2024 [...] Signed Date: 09/09/2024 07:17 ET Workstation ID: [id number] Transcribed By: Self Edit Transcribed Date: 09/09/2024 [...] Signed Date: 09/09/2024 07:17 ET Workstation ID: [id number] Transcribed By: Self Edit Transcribed Date: 09/09/2024 07:11 ET Jamel Gilebrt DC IMG XR PROCEDURES documented in this encounter Visit Diagnoses Diagnosis Pain Generalized pain documented in this encounter Care Teams Professor Of Archaeology Relationship Specialty Start Date End Date Rolanda Thakur MD [address] [place] [address] PCP - General 11/03/23 documented as of this encounter
--- OUTSIDE RECORDS SUMMARY | 2024-09-24 12:57 | XMS_ITS | Encounter Summary ---
Author Organization [employer] Address [address] [place] [address] Care Team Providers Care Patient Service Specialist Name Role Phone Rolanda Thakur MD Primary Care Provider [phone]- [phone] Reason for Referral * Consultation (Routine) - Closed Specialty Diagnoses / Procedures Referred By Contac t Referred To Contact Behavioral Health Diagnoses Anxiety Rolanda Thakur MD [address] [place] [address] Phone: tel: fax: Referral ID Status Reason Start Date Expiration Date V isits Requested Visits Authorized [id number] Closed Specialty Services Required 05/02/2024 05/02/2025 1 1 Encounter Details Date Type Department Care Team ([facility] Contact Info) Description 05/02/2024 Orders Only [facility] CHC MED & PEDS [address] [place] [address] Rolanda Thakur MD [address] [place] [address] Anxiety (Primary Dx) Social History Tobacco Use Types [...] Priority Associated Diagnoses Order Schedule Referral to Behavioral Health Outpatient Referral Routine Anxiety Expected: 05/02/2024 (Approximate), Expires: 05/02/2025 documented as of this encounter Visit Diagnoses Diagnosis Anxiety- Primary Anxiety state, unspecified documented in this encounter Care Teams Patient Service Specialist Relationship Specialty Start Date End Date Rolanda Thakur MD [address] [place] [address] PCP - General Internal Medicine 09/19/22 documented as of this encounter
--- OUTSIDE RECORDS SUMMARY | 2024-09-24 12:57 | XMS_ITS | Encounter Summary ---
Author Organization [employer] Address [address] [place] [address] [place] [address] Care Team Providers Care Scientific Associate Name Role Phone Rolanda Thakur MD Primary Care Provider [phone]- [phone] Encounter Details Date Type Department Care Team (Late st Contact Info) Description 12/07/2023 Telephone [facility] MEDICINE [address] [place] [phone] Rolanda Thakur MD [address] [place] [address] Social History Tobacco Use Types Packs/Day Years [...] on filedocumented in this encounter Care Teams Scientific Associate Relationship Specialty Start Date End Date Rolanda Thakur MD [address] [place] [address] PCP - General Internal Medicine 09/19/22 documented as of this encounter
--- OUTSIDE RECORDS SUMMARY | 2024-09-24 12:57 | XMS_ITS | Encounter Summary ---
Author Organization [employer] Address [address] [place] [address] 7 [place] [address] Care Team Providers Care Statistical Clerk Name Role Phone Rolanda Thakur MD Primary Care Provider [phone]- [phone] Encounter Details Date Type Department Care Team ([facility] st Contact Info) Description 09/23/2024 Orders Only [facility] CHC MED & PEDS [address] [place] [address] Rolanda Thakur MD [address] [place] [address] Acquired hypothyroidism (Primary Dx); Benign essential hypertension Social History Tobacco Use [...] Type Priority Associated Diagnoses Orde r Schedule CBC auto differential Lab Routine Acquired hypothyroidism Benign essential hypertension Expected: 09/23/2024 (Approximate), Expires: 09/23/2025 Basic Metabolic Panel, Fasting Lab Routine Acquired hypothyroidism Benign essential hypertension Expected: 09/23/2024 (Approximate), Expires: 09/23/2025 TSH W/Reflex to FT4 Lab Routine Acquired hypothyroidism Benign essential hypertension Expected: 09/23/2024 (Approximate), Expires: 09/23/2025 Metanephrines, Fractionated, LC/MS/MS, Random Urine Lab Routine Benign essential hypertension Expected: 09/23/2024 (Approximate), Expires: 09/23/2025 METANEPHRINES, FRAC., PL. FREE Lab Routine Benign essential hypertension Expected: 09/23/2024 (Approximate), Expires: 09/23/2025 Aldosterone/Plasma Renin Activity Ratio, LC/MS/MS Lab Routine Benign essential hypertension Expected: 09/23/2024, Expires: 09/23/2025 documented as of this encounter Visit Diagnoses Diagnosis Acquired hypothyroidism- Primary Unspecified hypothyroidism Benign essential hypertension Essential hypertension, benign documented in this encounter Additional Health Concerns Assessment Noted Time PHQ-9 Depression Total Score: 2 05/13/20 24 9:24 AM EDT documented as of this encounter Care Teams Statistical Clerk Relationship Specialty Start Date End Date Rolanda Thakur MD [address] [place] [address] PCP - General Internal Medicine 09/19/22 documented as of this encounter
--- OUTSIDE RECORDS SUMMARY | 2024-09-24 12:57 | XMS_ITS | Encounter Summary ---
Author Organization [facility] [address] Care Team Providers Care Fitter Hand Name Role Phone Rolanda Thakur MD Primary Care Provider [phone] -[phone] Reason for Visit * Reason Onset Date Comments Hypertension 09/12/2024 Encounter Details Date Type Department Care Team ([facility] st Contact Info) Description 09/12/2024 Telephone [facility] [address] [phone] Nikki Rawls MD [address] [place] [address] Hypertension Social History Tobacco Use Types Packs/Day Years [...] on file documented as of this encounter Progress Notes * Emeka Escoto NP - 09/18/2024 8:38 AM EST Ok thank you * Rosy Jimenez RN - 09/17/2024 4:45 PM EST Pt BP LOG is in the Patient message from today 09/17/24 * Pedro Dias - 09/17/2024 4:33 PM EST Patient called back and said she had given the readings in a patient note this morning. If we need to call her for anything important to use the message portal since that would be easier for her. Unless it's a emergency then we can call her. * Betty Fernandez RN - 09/17/2024 3:42 PM EST LVM for pt to call back. 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 She denies any symptoms when her blood pressure gets high. She has alist of her readings but is not currently home. She is requesting a call back after 3:30 tomorrow so she can give them to you. She can be reached at [phone]. * Betty Fernandez RN - 09/16/2024 10:12 AM EST LVM for pt to call back. * Emeka Escoto NP - 09/13/2024 10:45 AM EST I think that she should probably take the clonidine 3 times daily. In addition to helping with blood pressure it also helps with anxiety. Lets try to have her make sure she takes blood pressure when she is feeling calm. Is she having any symptoms with these high readings? Do we have what her last couple of readings have been? * Betty Fernandez RN - 09/12/2024 12:12 PM EST Called pt this PM. States she has been having increasing BP over the last few weeks. Has been having financial issues, L-4 - L-5 pain issues, heating issues in the apartment. Has been having more panic attacks also. Has been taking all meds as listed in med module - does admit she is not taking Clonidine 0.1mg TID states for the most part she is taking BID as she often missed the afternoon dosing. Has been taking Losartan, Levothyroxine, Klonopin , and Buspar as ordered in med module. Has been taking mult Bps during the day - no set schedule. I have asked her to stop taking BP sporadically and to start documenting 2 hours after meds in the AM and PM with the HR also. States she will do this. Has been following up with PCP on the same issue and she feels like she is getting nowhere with him - he had recently suggested for her to f/u with a therapist. I have asked her if she has any community resource numbers for assistance in any aspects of her life to help her mange some of her stressors and she states she does not. States most things that she has looked at she does not qualify for,as she makes too much money. BP on Monday 191/85 - did not have the time of when she took it. BP 2 hours ago was 160/85. ROBEL 07/08/24, per Lg Palacios on 08/23 - states we do not need to see her again butif she would like to be seen it would be a yearly f/u. Please advise further. * Lili Larios - 09/12/2024 10:31 AM EST The patient called her blood pressure has been running high (highest being 183/83) and she is having more frequent panic attacks. Her apartment as been cold (around 62 degrees) due to the old windows. She is not sure if that is affecting her blood pressure, she also has a sinus infection. Please call her back at [phone]. documented in this encounter Plan of Treatment Not on file documented as of this encounter Visit Diagnoses Not on filedocumented in this encounter Care Teams Fitter Hand Relationship Specialty Start Date End Date Rolanda Thakur MD [address] [place] [address] PCP - General 11/03/23 documented as of this encounter
--- OUTSIDE RECORDS SUMMARY | 2024-09-24 12:57 | XMS_ITS | Encounter Summary ---
Author Organization [employer] Address [address] [place] [address] Care Team Providers Care Senior Gl Accountant Name Role Phone Rolanda Thakur MD Primary Care Provider +1- [phone] Reason for Visit * Reason Onset Date Comments Call Back Request 11/17/2023 Encounter Details Date Type Department Care Team ([facility] st Contact Info) Description 11/17/2023 Telephone [facility] MEDICINE [address] [place] [address] Rolanda Thakur MD [address] [place] [address] Call Back Request Social History Tobacco Use Types Packs/Day Years [...] encounter Miscellaneous Notes * Telephone Encounter - Janis Goodwin RN - 11/17/2023 2:41 PM EDT Message sent to PCP for review through [employer] portal * Telephone Encounter - Jenny Neff - 11/17/2023 8:06 AM EDT Tc from pt requesting a call back pt stated needs more information and clarifications 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 Please contact pt. documented in this encounter Plan of Treatment Not on file documented as of this encounter Visit Diagnoses Not on filedocumented in this encounter Care Teams Senior Gl Accountant Relationship Specialty Start Date End Date Rolanda Thakur MD [address] [place] [address] PCP - General Internal Medicine 09/19/22 documented as of this encounter
--- OUTSIDE RECORDS SUMMARY | 2024-09-24 12:57 | XMS_ITS | Encounter Summary ---
Author Organization [employer] [place] [address] Care Team Providers Care Emergency Technician Name Role Phone Rolanda Thakur MD Primary Care Provider +1 -[phone] Encounter Details Date Type Department Care Team (Latest Contact Info) Description 09/07/2024 9:51 AM EST - 09/07/2024 11:59 PM EST Hospital Encounter [facility] Xray [address] [place] [id number] Pain Discharge Disposition: Home or Self Care [...] VIEWS Routine 09/07/2024 10:07 AM EST Pain documented in this encounter Results * XR Lumbar Spine 2-3 Views [...] Signed Date: 09/09/2024 07:17 ET Workstation ID: [id number] Transcribed By: Self Edit Transcribed Date: 09/09/2024 [...] Signed Date: 09/09/2024 07:17 ET Workstation ID: [id number] Transcribed By: Self Edit Transcribed Date: 09/09/2024 07:11 ET Jamel Gilbert DC IMG XR PROCEDURES documented in this encounter Visit Diagnoses Diagnosis Pain Generalized pain documented in this encounter Care Teams Emergency Technician Relationship Specialty Start Date End Date Rolanda Thakur MD [address] [place], [place] PCP - General 11/03/23 documented as of this encounter
--- OUTSIDE RECORDS SUMMARY | 2024-09-24 12:57 | XMS_ITS | Encounter Summary ---
Author Organization [employer] Address [address] [facility] 7 [place] [address] Care Team Providers Care Varnish Filterer Name Role Phone Rolanda Thakur MD Primary Care Provider +1- [phone] Reason for Visit * Reason Onset Date Comments Durable Medical Equipment 04/29/2024 Encounter Details Date Type Department Care Team (Late st Contact Info) Description 04/29/2024 Telephone [facility] MEDICINE [address] [place] [address] Rolanda Thakur MD [address] [place] [address] Durable Medical Equipment Social History Tobacco Use Types Packs/Day Years [...] encounter Miscellaneous Notes * Telephone Encounter - Raz Manuel - 04/29/2024 3:34 PM EDT Tc from [facility] stating pt is requesting blood pressure monitor but they don't have a script. If any questions you can contact [employer] at [phone]. documented in this encounter Plan of Treatment Not on file documented as of this encounter Visit Diagnoses Not on filedocumented in this encounter Care Teams Varnish Filterer Relationship Specialty Start Date End Date Rolanda Thakur MD [address] [place] [address] PCP - General Internal Medicine 09/19/22 documented as of this encounter
--- OUTSIDE RECORDS SUMMARY | 2024-09-24 12:58 | XMS_ITS | Encounter Summary ---
Author Organization [employer] Address [address] [place] [address] Care Team Providers Care Forest Technology Professor Name Role Phone Roalnda Thakur MD Primary Care Provider +1- [phone] Reason for Referral * Consultation (Routine) - Pending Review Specialty Diagnoses / Procedures Referred By Conthernandez meadows Referred To Contact Podiatry Diagnoses Type 2 diabetes mellitus without complication, without long-term current use of insulin (CMS/HCC) Rolanda Thakur MD [address] [place] [address] Phone: tel: fax: Carl Avitia DPM Phone: tel: fax: Referral ID Status Reason Start Date Expiration Date Visits Requested Visits Authorized [id number] Pending Review Specialty Services Required 11/01/2023 10/31/2024 1 1 Encounter Details Date Type Department Care Team (Late st Contact Info) Description 10/23/2023 Orders Only [facility] CHC MED & PEDS [address] [place] [address] Rolanda Thakur MD [address] [place] [address] Acquired hypothyroidism (Primary Dx); Type 2 diabetes mellitus without complication, without long-term current use of insulin (CMS/HCC) Social History Tobacco Use Types Packs/Day [...] without long-term current use of insulin (CMS/HCC) Expected: 11/01/2023 (Approximate), Expires: 10/31/2024 documented as of this encounter Visit Diagnoses Diagnosis Acquired hypothyroidism- Primary Unspecified hypothyroidism Type 2 diabetes mellitus without complication, without long-term current use of insulin (CMS/HCC) documented in this encounter Care Teams Forest Technology Professor Relationship Specialty Start Date End Date Rolanda Thakur MD [address] [place] [address] PCP - General Internal Medicine 09/19/22 documented as of this encounter
--- OUTSIDE RECORDS SUMMARY | 2024-09-24 12:58 | XMS_ITS | Encounter Summary ---
Author Organization [employer] Address [address] [place] [address] [place] [address] Care Team Providers Care Senior Sql Developer Name Role Phone Rolanda Thakur MD Primary Care Provider +1- [phone] Reason for Visit * Reason Onset Date Comments Referral 11/16/2023 Encounter Details Date Type Department Care Team ([facility] st Contact Info) Description 11/16/2023 Telephone [facility] MED [facility] PEDS [address] [place] [address] Rolanda Thakur MD [address] [place] [address] Referral Social History Tobacco Use Types Packs/Day [...] encounter Miscellaneous Notes * Telephone Encounter - Barby Keen - 11/16/2023 10:17 AM EDT Tc from pt requesting a referral to Dr. Dempsey's office to get another EMG test performed. Pleasereview 11/08 MyChart encounter. Any questions, contact pt at [phone] documented in this encounter Plan of Treatment Not on file documented as of this encounter Visit Diagnoses Not on filedocumented in this encounter Care Teams Senior Sql Developer Relationship Specialty Start Date End Date Rolanda Thakur MD [address] [place] [address] PCP - General Internal Medicine 09/19/22 documented as of this encounter
--- OUTSIDE RECORDS SUMMARY | 2024-09-24 12:58 | XMS_ITS | Encounter Summary ---
Author Organization [employer] Address [address] [place] [address] [place] [address] Care Team Providers Care Consulting Hr Professional Name Role Phone Rolanda Thakur MD Primary Care Provider +1- [phone] Reason for Visit * Reason Onset Date Comments Med Refill 08/13/2024 Encounter Details Date Type Department Care Team ([facility] st Contact Info) Description 08/13/2024 Refill [facility] MED & PEDS [address] [place] [address] Rolanda Thakur MD [address] [place] [address] Vitamin D deficiency Social History Tobacco Use Types Packs/Day Years [...] * Telephone Encounter - Brisa Buenrostro - 08/26/2024 3:07 PM EST left for patient regarding referral. [facility] doesn't accept her insurance, alternative is [facility] endo. documented in this encounter Plan of Treatment Not on file documented as of this encounter Visit Diagnoses Diagnosis Vitamin D deficiency documented in this encounter Additional Health Concerns Assessment Noted Time PHQ-9 Depression Total Score: 2 05/13/20 24 9:24 AM EDT documented as of this encounter Care Teams Consulting Hr Professional Relationship Specialty Start Date End Date Rolanda Thakur MD [address] [place] [address] PCP - General Internal Medicine 09/19/22 documented as of this encounter
--- OUTSIDE RECORDS SUMMARY | 2024-09-24 12:58 | XMS_ITS | Encounter Summary ---
Author Organization [employer] Address [address] [place] [address] Care Team Providers Care Veneer Stapler Name Role Phone Rolanda Thakur MD Primary Care Provider +1- [phone] Reason for Visit * Reason Comments Med Refill Encounter Details Date Type Department Care Team (Late st Contact Info) Description 08/27/2024 Refill [facility] MEDICINE [address] [place] [address] Rolanda Thakur MD [address] [place], [place] [phone] Type 2 diabetes mellitus without complication, without long-term current use of insulin ([facility]) Social History Tobacco Use Types Packs/Day Years [...] complication, without long-term current use of insulin ([facility]) documented in this encounter Additional Health Concerns Assessment Noted Time PHQ-9 Depression Total Score: 2 05/13/20 24 9:24 AM EDT documented as of this encounter Care Teams Veneer Stapler Relationship Specialty Start Date End Date Rolanda Thakur MD [address] [place] [address] PCP - General Internal Medicine 09/19/22 documented as of this encounter
--- OUTSIDE RECORDS SUMMARY | 2024-09-24 12:58 | XMS_ITS | Encounter Summary ---
Author Organization [employer] Address [address] [place] [address] Care Team Providers Care Mine Engineering Superintendent Name Role Phone Rolanda Thakur MD Primary Care Provider +1- [phone] Reason for Visit * Reason Onset Date Comments Nurse Triage 01/03/2024 Encounter Details Date Type Department Care Team (Late st Contact Info) Description 01/03/2024 Telephone [facility] MEDICINE [address] [place] [address] Rolanda Thakur MD [address] [place] [address] Nurse Triage Social History Tobacco Use Types [...] Telephone Encounter - Janis Goodwin RN - 01/03/2024 10:26 AM EDT Portal message was sent to PCP for review. * Telephone Encounter - Barby Keen - 01/03/2024 10:03 AM EDT Tc from pt returning your call. Pt cannot answer triage call till after 3:00 PM due to work. Pt hasthrown medication away and would like to go back to busPIRone (Buspar) 5 MG tablet. * Telephone Encounter - Jenny Neff - 01/03/2024 8:05 AM EDT Symptom: Medication Reaction Outcome: Schedule an urgent appointment (within 1 hour) or talk to a nurse or provider soon Reason: pt sated is allergic to amLODIPine (Norvasc) 5 MG tablet The caller accepted this outcome documented in this encounter Plan of Treatment Not on file documented as of this encounter Visit Diagnoses Not on filedocumented in this encounter Care Teams Mine Engineering Superintendent Relationship Specialty Start Date End Date Rolanda Thakur MD [address] [place] [address] PCP - General Internal Medicine 09/19/22 documented as of this encounter
--- OUTSIDE RECORDS SUMMARY | 2024-09-24 12:58 | XMS_ITS | Encounter Summary ---
Author Organization [employer] Address [address] [place] [address] Care Team Providers Care Tool Maintenance Worker Name Role Phone Rolanda Thakur MD Primary Care Provider [phone] Encounter Details Date Type Department Care Team (Latest Contact Info) Description 09/10/2024 Travel Social History Tobacco Use Types Packs/Day Years [...] documented as of this encounter Care Teams Tool Maintenance Worker Relationship Specialty Start Date End Date Rolanda Thakur MD [address] [place] [id number] PCP - General Internal Medicine 09/19/22 documented as of this encounter
--- OUTSIDE RECORDS SUMMARY | 2024-09-24 12:58 | XMS_ITS | Clinical Summary ---
Author Organization [employer] Address [address] [place] [address] 7 [place] [address] Care Team Providers Care Taker Out Name Role Phone Rolanda Thakur MD Primary Care Provider [phone] Allergies Active Allergy Reactions Criticality Noted Date Comments Acetaminophen Unknown 04/21/2016 Codeine 04/21/2016 Other reaction(s): vomiting, headache Gabapentin 04/21/2016 Other reaction(s): n/v headache Hydromorphone 08/12/2022 Other reaction(s): n/v headache Lisinopril Cough 04/21/2016 Meloxicam High 01/09/2020 Meperidine Unknown 04/21/2016 Other reaction(s): Headache and vomiting Morphine Other,Unknown 04/21/2016 Other reaction(s): Headache and vomiting Nitrofurantoin Diarrhea 07/07/2018 Oxycodone 04/21/2016 Other reaction(s): n/v headache, Unknown Oxycodone-Acetaminophe n 08/12/2022 Other reaction(s): vomiting Prednisone 06/29/2020 Shellfish Allergy 08/12/2022 Other reaction(s): Stomach pain Trimethoprim Nausea And Vomiting 07/08/2022 Pt claims she is not allergic to Trimethoprim sulfamethoxazole Medications * This document contains information received from the source organization and may not represent a complete record from that organization. OneTouch Delica Lancets 33G misc Use to check blood sugar four times daily Active Blood Pressure kit Check the BP daily 1 kit 10/10/19 24 Active Synthroid 125 MCG tabletIndications :Acquired hypothyroidism TAKE 1 TABLET BY MOUTH ON MONDAY, MONDAY, AND MONDAY AND ALTERNATE WITH 137 MCG ON MONDAY, MONDAY, MONDAY, AND MONDAY 36 tablet 3 10/30/19 24 Active cetirizine (ZyrTEC) 10 MG tablet Take 1 tablet (10 mg) by mouth Once per day. 30 tablet 11 01/01/20 24 2024 Active glucose 4 g chewable tabletIndications :Type 2 diabetes mellitus without complication, without long-term current use of insulin ([facility]) Chew 4 tablets (16 g) if needed for low blood sugar. 50 tablet 12 03/06/20 24 2024 Active glucose blood (Xconomyuch Ultra) test stripIndications: Type 2 diabetes mellitus without complication, without long-term current use of insulin ([facility]) USE DIRECTED TO TEST BLOOD GLUCOSE TWICE DAILY 100 strip 11 07/05/20 24 Active metFORMIN (Glucophage) 500 MG tabletIndications :Type 2 diabetes mellitus without complication, without long-term current use of insulin ([facility]) TAKE 1 TABLET BY MOUTH TWICE DAILY WITH MEALS 180 tablet 07/22/20 24 Active ascorbic acid (Vitamin C) 1000 MG tablet TAKE 1 TABLET BY MOUTH EVERY DAY 30 tablet 08/15/20 24 Active D3-1000 25 MCG (1000 UT) capsuleIndication s:Vitamin D deficiency TAKE 1 CAPSULE BY MOUTH EVERY DAY 90 capsule 2 08/15/20 24 Active ascorbic acid (Vitamin C) 500 MG tablet TAKE 1 TABLET BY MOUTH EVERY DAY 90 tablet 1 08/15/20 24 Active neomycin-bacitrac in-polymyxin (Neosporin) 5-400-5000 ointment Apply topically 4 times daily. 3.5 g 08/17/20 24 Active losartan (Cozaar) 100 MG tablet TAKE 1 TABLET(100 MG) BY MOUTH IN THE MORNING 90 tablet 1 08/19/20 24 Active clonazePAM (KlonoPIN) 0.5 MG tabletIndications :Panic attack,Anxiety TAKE 1 TABLET BY MOUTH EVERY DAY NEEDED FOR PANIC ATTACKS 10 tablet 3 08/19/20 24 Active busPIRone (Buspar) 10 MG tablet Take 1 tablet (10 mg) by mouth 2 times daily. 60 tablet 11 08/22/19 25 2025 Active Synthroid 137 MCG tabletIndications :Acquired hypothyroidism TAKE 1 TABLET BY MOUTH EVERY DAY BEFORE BREAKFAST 90 tablet 3 08/22/19 25 Active Synthroid 125 MCG tablet TAKE 1 TABLET BY MOUTH ON MONDAY, MONDAY, AND MONDAY AND ALTERNATE WITH 137 MCG ON MONDAY, MONDAY, MONDAY, AND MONDAY 36 tablet 11 08/22/19 25 Active aspirin (Aspirin Low Dose) 81 MG EC tablet Take 1 tablet (81 mg) by mouth Once per day. 90 tablet 3 08/22/19 25 Active Multiple Vitamin (Daily-Saadia Multivitamin) tablet TAKE 1 TABLET BY MOUTH EVERY DAY 30 tablet 11 08/23/19 25 Active cloNIDine (Catapres) 0.1 MG tabletIndications :Anxiety,Benign essential hypertension TAKE 1 TABLET(0.1 MG) BY MOUTH THREE TIMES DAILY 90 tablet 2 09/04/19 25 Active capsaicin (Zostrix) 0.025 % creamIndications: Spondylosis of cervical region without myelopathy or radiculopathy Apply topically 2 times daily. 56.6 g 3 09/10/19 25 2025 Active cyanocobalamin (Vitamin B-12) 500 MCG tablet TAKE 1 TABLET(500 MCG) BY MOUTH DAILY IN THE MORNING 90 tablet 3 09/16/19 25 Active glipiZIDE (Glucotrol) 10 MG tabletIndications :Diabetic polyneuropathy associated with type 2 diabetes mellitus (CMS/HCC) TAKE 1 TABLET(10 MG) BY MOUTH BEFORE BREAKFAST AND BEFORE THE EVENING MEAL 60 tablet 3 09/18/19 25 Active cyclobenzaprine (Flexeril) 10 MG tabletIndications :Neck pain on left side TAKE 1 TABLET BY MOUTH THREE TIMES DAILY( EVERY EIGHT HOURS) 30 tablet 09/19/19 25 Active cyanocobalamin (Vitamin B-12) 500 MCG tablet Take 1 tablet (500 mcg) by mouth in the morning. Take 1 tablet daily 90 tablet 3 08/15/20 23 2024 Discontinued spironolactone (Aldactone) 25 MG tabletIndications :Benign essential hypertension Take 1 tablet (25 mg) by mouth 2 times daily. 60 tablet 3 01/22/20 24 2024 Discontinued(T herapy completed) clonazePAM (KlonoPIN) 0.5 MG tabletIndications :Panic attacks Take 1 tablet (0.5 mg) by mouth Once per day for 10 days. 10 tablet 02/12/20 24 2024 Discontinued(T herapy completed) cloNIDine (Catapres) 0.1 MG tabletIndications :Anxiety,Benign essential hypertension TAKE 1 TABLET(0.1 MG) BY MOUTH THREE TIMES DAILY 90 tablet 2 06/11/20 24 2024 Discontinued glipiZIDE (Glucotrol) 10 MG tabletIndications :Diabetic polyneuropathy associated with type 2 diabetes mellitus (CMS/HCC) TAKE 1 TABLET(10 MG) BY MOUTH BEFORE BREAKFAST AND BEFORE THE EVENING MEAL 60 tablet 3 06/21/20 24 2024 Discontinued losartan (Cozaar) 100 MG tablet Take 1 tablet (100 mg) by mouth Once per day. 90 tablet 3 08/19/20 24 2024 Discontinued(D uplicate order (will not trigger notification to Pharmacy)) cyclobenzaprine (Flexeril) 10 MG tabletIndications :Neck pain on left side TAKE 1 TABLET BY MOUTH THREE TIMES DAILY( EVERY EIGHT HOURS) 30 tablet 08/20/20 24 2024 Discontinued(R eorder (will not trigger notification to Pharmacy)) Active Problems Problem Noted Date Diagnosed Date Neck pain on left side 08/10/2024 Assessment & Plan (08/10/2024 10:37 AM EST): Pt here with c/o left sided neck pain x 2 weeks, initially intensity 8/10 now down to 5/10 after lifting a heavy bag. On exam there is evdence of muscle spasm Plan: Flexeril TID PRN ( Pt has tolerated before per her report), Cannot take any other class of pain meds. Physical Therapy Plain films C-spine Follow up with PCP Acute maxillary sinusitis 08/10/2024 Assessment & Plan (08/10/2024 10:38 AM EST): Patient with c/o pain on her left frontal and maxillary area, associated with yellowish brownish nasal discharge On exam , pt is tender to palpation maxillary sinus area Plan: Augmentin BID x 10 days Nasal [place] Follow up if worsening or no improvement Generalized anxiety disorder with panic attacks 05/10/2024 Assessment & Plan (05/22/2024 1:00 PM EDT): Requested to see patient. Recommend f/up with PCP Assessment & Plan (05/13/2024 9:40 AM EDT): PROGRESS NOTE: ID: Angely Rodriguez is a 73 y.o. White straight-identified cis-female with previous documented hx of Anxiety No previous hx of services who presents for Anxiety and Panic Attack During IBH Consult Angely Rodriguez presenting with excessive worry/anxiety, difficulty controlling worry, anxiety/worry associated to easily fatigued , difficulty concentrating and/or mind going blank , irritability, and muscle tension , Fear , and sense of dread and Recurrent panic attacks (abrupt surge of intese jamar or discomfort that reaches peak within minutes and during which time the following occur (4 or more) palpitations, sweating, trembling/shaking, sensation of shortness of breath/smothering, Chest pain/discomfort, numbness/tingling, fear of losing control, fear of dying, At least one of the attacks has been followed by 1 month of Persistent concern/worry of panic attacks or their consequences ; for a period of 18+ mo, for most or all symptoms in the context of feeling like this since covid, financial instability, new allergic reaction starting this summer, increase in panic episodes. Angely presented with increase concern about panic attacks, she reported sxs has been presence since but exacerbated this summer with new allergies and financial instability. She reported that she needs to figure out what is causing it. She declined referral for Psychiatrist at this time. PLAN: New/Additional Services needed PCP management Off-site services for Behavioral Health Integration Plan External OP therapy referral Patient Self Plan Patient to utilize skills provided in intervention , Patient [facility], Patient to engage in OP therapy , and Patient to reach out to HC as needed Swelling of lip, tongue, and throat 05/10/2024 Assessment & Plan (05/22/2024 1:00 PM EDT): Patient reports episodes of swelling of exposure to different antigens, at this moment given recurrence and symptoms affecting patients daily, will strongly benefit of assessment from lath tier to help elucidate etiology of symptoms. Peripheral neuropathy 12/06/2022 Acquired hypothyroidism 12/06/2022 Diabetic neuropathy 08/17/2022 Type 2 diabetes mellitus 03/27/2021 Overview (08/12/2022): Trying metformin again. Still aware of statin recommendationsDeclined statin and metformin, aware of recommendations Benign essential hypertension 07/31/2019 Assessment & Plan (08/10/2024 10:42 AM EST): Pt's elevated blood pressure, Pt tells me this is not unusual for her , Her BP monitor systolic average between 120-130s, She has White coat hypertension, and today's reading is not surprising to her Reports BP is frequently elevated in office, but well controlled at home Continue current regimen Follow up if home BP readings not well controlled Assessment & Plan (03/31/2024 8:18 PM EDT): -Reports BP is frequently elevated in office, but well controlled at home -Continue current regimen through PCP -Follow up if home BP readings not well controlled Assessment & Plan (02/20/2024 10:32 AM EDT): -Reports BP is frequently elevated in office, but well controlled at home -Follow up if home BP readings not well controlled Resolved Problems Problem Noted Date Diagnosed Date Resolved Date Upper respiratory tract infection 12/06/2022 12/15/2022 Encounters Date Type Department Care Team Description 09/24/2024 Telephone [facility] [address] [place] [address] Rolanda Thakur MD Nurse Triage 09/23/2024 Orders Only [facility] [address] [place] [address] Rolanda Thakur MD Acquired hypothyroidism (Primary Dx); Benign essential hypertension 09/18/2024 Refill [facility] [address] [place] [address] Wyatt Huizar MD Neck pain on left side 09/17/2024 Refill [facility] [address] [place] [address] Rolanda Thakur MD Diabetic polyneuropathy associated with type 2 diabetes mellitus ([facility]) 09/15/2024 Refill [facility] [address] [place] [address] Rolanda Thakur MD 09/10/2024 3:45 PM EST Office Visit [facility] [address] [place] [address] Rolanda Thakur MD Type 2 diabetes mellitus without complication, without long-term current use of insulin (CMS/HCC) (Primary Dx); Diabetic polyneuropathy associated with type 2 diabetes mellitus (CMS/HCC); Spondylosis of cervical region without myelopathy or radiculopathy; Benign essential hypertension 09/10/2024 Travel 09/04/2024 Refill [facility] [address] [place] [address] Rolanda Thakur MD Anxiety; Benign essential hypertension 08/27/2024 Refill [facility] [address] [place] [address] Rolanda Thakur MD Type 2 diabetes mellitus without complication, without long-term current use of insulin (CMS/HCC) 08/26/2024 Orders Only [facility] [address] [place] [address] Rolanda Thakur MD Type 2 diabetes mellitus without complication, without long-term current use of insulin (CMS/HCC) (Primary Dx) 08/23/2024 Refill [facility] [address] [place] [address] Rolanda Thakur MD 08/20/2024 Refill [facility] [address] [place] [address] Roladna Thakur MD 08/20/2024 Refill [facility] [address] [place] [address] Rolanda Thakur MD 08/20/2024 Refill [facility] [address] [place] [address] Karoline Castañeda MD Acquired hypothyroidism 08/20/2024 Refill [facility] [address] [place] [address] Karen Alcantar MD 08/19/2024 Refill [facility] [address] [place] [address] Wyatt Huizar MD Neck pain on left side 08/19/2024 Refill [facility] [address] [place] [address] Wyatt Huizar MD Neck pain on left side 08/19/2024 Refill [facility] [address] [place] [address] Rolanda Thakur MD Panic attack; Anxiety 08/17/2024 10:40 AM EST Office Visit [facility] [address] [place] [phone] Uday Rodriguez MD Cracked skin (Primary Dx); Sciatica, unspecified laterality 08/17/2024 Refill [facility] [address] [place] [address] Rolanda Thakur MD 08/17/[address] [address] Rolanda Thakur MD 08/17/2024 Travel 08/15/2024 Refill [facility] [address] [place] [address] Rolanda Thakur MD Vitamin D deficiency 08/13/2024 Refill [facility] [address] [place] [address] Rolanda Thakur MD Vitamin D deficiency 08/13/2024 Refill [facility] [address] [place] [address] Maren Hough MD 08/13/2024 Telephone [facility] [address] [place] [address] Rolanda Thakur MD 08/10/2024 9:40 AM EST Office Visit [facility] [address] [place] [address] Wyatt Huizar MD Neck pain on left side (Primary Dx); Acute maxillary sinusitis, recurrence not specified; Benign essential hypertension 08/10/2024 Travel 08/09/[address] [address] Rolanda Thakur MD Nurse Triage 08/05/[address] [address] Rolanda Thakur MD Nurse Triage 08/02/2024 Orders Only [facility] [address] [place] [address] Rolanda Thakur MD Chronic left-sided low back pain with left-sided sciatica (Primary Dx) 07/31/2024 Telephone [facility] [address] [place] [address] Rolanda Thakur MD Referral 07/22/2024 Telephone [facility] [address] [place] [address] Giuliana Manzo, RN Results 07/20/[address] [address] Rolanda Thakur MD Type 2 diabetes mellitus without complication, without long-term current use of insulin (CMS/HCC) 07/17/2024 2:15 PM EST Office Visit [facility] [address] [place] [address] Rolanda Thakur MD Benign essential hypertension (Primary Dx); Type 2 diabetes mellitus without complication, without long-term current use of insulin ([facility]/HCC); Decreased GFR; Screening for colon cancer 07/17/2024 Travel 07/15/2024 Telephone [facility] [address] [place] [address] Rolanda Thakur MD Chart Prep 07/09/2024 Orders Only [facility] [address] [place] [address] Rolanda Thakur MD Hyponatremia (Primary Dx); Decreased GFR 07/08/2024 Patient Outreach [facility] [address] [place] [address] Rolanda Thakur MD Care Coordination (CHW outreach for [facility] food and bills help need-LVM ) 07/06/2024 9:00 AM EST Office Visit [facility] [address] [address] Edward Bach MD Hyponatremia (Primary Dx); Type 2 diabetes mellitus without complication, without long-term current use of insulin ([facility]); Hypothyroidism, unspecified type 07/06/2024 Telephone [facility] [address] [address] Edward Bach MD 07/05/2024 Travel 07/05/2024 Telephone [facility] [address] [place] [address] Rolanda Thakur MD pt requests ; Appointment Request 07/05/[address] [address] Rolanda Thakur MD Type 2 diabetes mellitus without complication, without long-term current use of insulin ([facility]/HCC) 07/03/2024 Telephone [facility] [address] [place] [address] scan order 06/24/[address] [address] Rolanda Thakur MD Referral from Last 3 Months Immunizations Name Administration Dates Next Due Influenza High-dose Quadriva lent Preservative Free 06/26/2023 Influenza Quadrivalent Adjuvanted 06/27/2021 Influenza Whole 05/04/2009,07/22/2008 Influenza injectable quadriv alent preservative free 08/23/2019 Influenza, High Dose Seasona l, Preservative Free 05/13/2024,07/02/2018,05/09/2017 Influenza, IIV3, injectable 11/13/2015,1 ,05/22/2014,05/26,04/09/2012,05/27/2011,05/13/2010 Influenza, seasonal, injecta ble, preservative free 04/30/2020,04/21/2016 Pneumococcal Conjugate PCV 13 05/09/2017, 016 Pneumococcal Polysaccharide PPSV23 04/26,05/29/2014,05/29/2014,07/22 RSV Adjuvant 05/13/2024 TD (adult), 2 Lf tetanus tox oid, preservative free, adsorbed 10/07/2021,01/19/2019 Tdap 04/21/2016,12/05/2008 Zoster, Recombinant 07/02/2018,04/26/2018 Zoster, live 04/09/2012 Social History Tobacco Use Types Packs/Day Years Used Date Smoking Tobacco: Never Passive Smoke Exposure: Never Smokeless Tobacco: Never Tobacco Cessation:Counseling Given: Not Answered Alcohol Use Standard Drinks/Week Comments Never 0 [...] Orientation Straight 06/20/2022 10 :30 AM EDT Last Filed Vital Signs Vital Sign Reading [...] Mass Index 26.78 09/10/2024 3:09 PM EST Plan of Treatment Health Maintenance Due Date Last Done Comments CT Colonography 1950 Colonoscopy 1950 FIT 1950 Sigmoidoscopy 1950 Mammogram 1991 FOBT 01/03/2023 01/03/2022 Diabetes: Hemoglobin A1C 10/06/2024 024, 01/19/2024, 10/10/2023, Additional history exists Diabetes: Foot Exam 02/18/2025 02/19/2024, 02/19/2024, 02/19/2024, Additional history exists Depression Screening 05/13/2025 05/13/2024, 05/13/20 24 COVID-19 Vaccine ( season) 2025 07/10/2021, 11/04/2020 Postponed from 04/21/2024 (Patient Refused) Diabetes: Urine Protein Screening 07/17/2025 07/17/2024 Lipid Panel 07/17/2025 07/17/2024, 04/21, 07/13/2022 Tobacco Screening 07/17/2025 07/17/2024 Alcohol/Substance Use Screening 09/10/2025 09/10/2024 SDOH Screening 09/10/2025 09/10/2024 Eye Exam 09/26/2025 09/26/2023 Colorectal Cancer Screening 08/09/2027 FIT DNA/Cologuard 08/09/2027 08/09/2024 DTaP/Tdap/Td Vaccines (5 - Td or Tdap) 10/07/2031 10/07/2021, 01/19/2019, 04/21/2016, Additional history exists Zoster Vaccines Completed 07/02/2018, 01/2018, 04/09/2012 Pneumococcal Vaccine: 50+ Years Completed 04/26/2019, 05/09/2017, 07/26/2016, Additional history exists Influenza Vaccine Completed 05/13/2024, , 06/27/2021, Additional history exists RSV Patients and Patients Aged 60 years or older Completed 05/13/2024 Hepatitis C Screening Completed 07/17/2024 [...] patient's age to complete this topic Meningococcal Vaccine Aged Out No nelda sinan eligible based on patient's age to complete this topic RSV under 20 months Aged Out No longe r eligible based on patient's age to complete this topic Rotavirus Vaccines Aged Out No longer eligible based on patient's age to complete this topic Procedures Procedure Name Priority Date/Time Associated Diagnosis Comments XR CERVICAL SPINE 5V Routine 08/12/2024 9:50 AM EST LAB COLOGUARD?? COLON CANCER SCREEN Routine 08/09/2024 8:30 AM EST Screening for colon cancer CT HEAD WO CONTRAST Routine 08/09/2024 Uncontrolled hypertension BASIC METABOLIC PANEL Routine 07/17/2024 3:20 PM EST Type 2 diabetes mellitus without complication, without long-term current use of insulin ([facility]) Decreased GFR LIPID PANEL, STANDARD Routine 07/17/2024 3:20 PM EST Type 2 diabetes mellitus without complication, without long-term current use of insulin (CMS/HCC) Decreased GFR HEPATITIS C AB W/REFL TO HCV RNA, QN, PCR Routine 07/17/2024 3:20 PM EST Type 2 diabetes mellitus without complication, without long-term current use of insulin (CMS/HCC) Decreased GFR POCT URINALYSIS DIPSTICK Routine 07/17/2024 3:11 PM EST Type 2 diabetes mellitus without complication, without long-term current use of insulin (CMS/HCC) ALBUMIN, RANDOM URINE W/CREATININE Routine 07/17/2024 2:55 PM EST Type 2 diabetes mellitus without complication, without long-term current use of insulin (CMS/HCC) Decreased GFR POCT GLUCOSE Routine 07/17/2024 2:48 PM EST Type 2 diabetes mellitus without complication, without long-term current use of insulin (CMS/HCC) TSH W/REFLEX TO FT4 Routine 07/09/2024 7 :58 AM EST Hypothyroidism, unspecified type BASIC METABOLIC PANEL Routine 07/09/2024 7:58 AM EST Hyponatremia ECG 12-LEAD Routine 07/08/2024 Generalized anxiety disorder with panic attacks Uncontrolled hypertension POCT GLUCOSE Routine 07/06/2024 9:32 AM EST Type 2 diabetes mellitus without complication, without long-term current use of insulin (CMS/HCC) POCT GLYCATED HEMOGLOBIN, TOTAL Routine 07/06/2024 9:32 AM EST Type 2 diabetes mellitus without complication, without long-term current use of insulin (CMS/HCC) HM IFOBT Routine 01/03/2022 from Last 3 Months or Most Recently Relevant to Health Maintenance Results * XR CERVICAL SPINE 5V (08/12/2024 9:50 AM EST) Anatomical Region Laterality Modality Abdomen Radiographic Gabriella ging 08/12/2024 9:50 AM EST Narrative 09/02/2024 11:24 AM EST ? [facility] ?[address] ? [place] [address] ?XRay Report ? Signed ? Patient: Edwin,Angely ?MR#: [id number] ? : 1950 ?Acct:[id number] ? Age/Sex: 74 / F ?ADM Date: 08/12/24 ? Loc: HO.HMGCX ? Attending Dr: Wyatt Golden MD ? Ordering Physician: Wyatt Golden MD ?? Date of Service: 08/12/24 ?? Procedure(s): XR cervical spine 5V ?? Accession Number(s): [id number] ? cc: Rolanda Thakur MD; Wyatt Golden [...] DD/ 0950 ? TD/TT: 08/12/24 1000 ? Film Crew Member: ? Procedure Note Donotuseinterpreter, Image - 09/02/2024 [facility] [address] [place], [place] [address] XRay Report Signed Patient: Angely PinedaMR#: [id number] : 1950cct:[id number] Age/Sex: 74 / FADM Date: 08/12/24 Loc: HO.HMGCX Attending Dr: Wyatt Golden MD Ordering Physician: Wyatt Golden MD Date of Service: 08/12/24 Procedure(s): XR cervical spine 5V Accession Number(s): [id number] cc: Rolanda Thakur MD; Wyatt Golden MD [...] by: Yuridia Becerra MD 09/02/2024 11:21 AM EST Dictated By: Yuridia Becerra MD Signed By: <Electronically signed by Yuridia Becerra MD in OV> 09/02/24 1121 DD/ 0950 TD/TT: 08/12/24 1000 Film Crew Member: us Wyatt Mcdonald MD IMG XR PROCEDURES Iftikhar mecca Result - Final * Cologuard?? colon cancer screening (08/09/2024 8:30 AM EST) Cologuard Result Negative Negative 08/18/20 11:52 PM [facility] (CLIA #:[id number]) Comment: NEGATIVE TEST RESULT. A negative Cologuard result indicates a low likelihood that a colorectal cancer (CRC) or advanced adenoma (adenomatous polyps with more advanced pre-malignant features) ??is present. The chance that a person with a negative Cologuard test has a colorectal cancer is less than 1 in 1500 (negative predictive value >99.9%) or has an ??advanced adenoma is less than ??5.3% (negative predictive value 94.7%). These data are based on a prospective cross-sectional study of 10,000 individuals at average risk for colorectal cancer who were screened with both Cologuard and colonoscopy. (Dioni Celaya et al, N Engl J Med 2014;370(14):1286- 1297) The normal value (reference range) for this assay is negative. COLOGUARD RE-SCREENING RECOMMENDATION: Periodic colorectal cancer screening is an important part of preventive healthcare for asymptomatic individuals at average risk for colorectal cancer. ??Following a negative Cologuard result, the [place] [employer] and U.S. Multi-Society Task Force screening guidelines recommend a Cologuard re-screening interval of 3 years. References: [place] [employer] Guideline for Colorectal Cancer Screening: https://www.cancer.org/cancer/mrtib-fjmmtb-woqntn/ntzaoqoci-ubhlidtli-pjotcgg/ac s-rec ommendations.html.; Santiago DK, Ileana CR, Emery LalaK, Colorectal Cancer Screening: Recommendations for Physicians and Patients from the U.S. Multi-Society Task Force on Colorectal Cancer Screening , Am J Gastroenterology 2017; 112:9995-9580. TEST DESCRIPTION: Composite algorithmic analysis of stool DNA-biomarkers with hemoglobin immunoassay. ?? Quantitative values of individual biomarkers are not reportable and are not associated with individual biomarker result reference ranges. Cologuard is intended for colorectal cancer screening of adults of either sex, 45 years or older, who are at average-risk for colorectal cancer (CRC). Cologuard has been approved for use by the U.S. FDA. The performance of Cologuard was established in a cross sectional study of average-risk adults aged 50-84. Cologuard performance in patients ages 45 to 49 years was estimated by sub-group analysis of near-age groups. Colonoscopies performed for a positive result may find as the most clinically significant lesion: colorectal cancer [4.0%], advanced adenoma (including sessile serrated polyps greater than or equal to 1cm diameter) [20%] or non- advanced adenoma [31%]; or no colorectal neoplasia [45%]. These estimates are derived from a prospective cross-sectional screening study of 10,000 individuals at average risk for colorectal cancer who were screened with both Cologuard and colonoscopy. (Dioni Kelly al, N Engl J Med 2014;370(14):5811-2090.) Cologuard may produce a false negative or false positive result (no colorectal cancer or precancerous polyp present at colonoscopy follow up). A negative Cologuard test result does not guarantee the absence of CRC or advanced adenoma (pre-cancer). The current Cologuard screening interval is every 3 years. ([place] [employer] and U.S. Multi-Society Task Force). Cologuard performance data in a 10,000 patient pivotal study using colonoscopy as the reference method can be accessed at the following location: www.marker.to/results. Additional description of the Cologuard test process, warnings and precautions can be found at www.Shoobs.Artklikk. Stool specimen (specimen) 08/09/2024 8:30 AM EST 08/10/2024 2:47 PM EST us Rolanda Thakur MD LAB MOLECULAR DIAGNOSTICS O RDERABLES Final Result [facility] (CLIA #:[id number]) [address] [place] [address], * CT Head w/o Contrast (08/09/2024) Anatomical Region Laterality Modality Head, Neck Computed Tomogra phy us Karen Alcantar MD IMG CT PROCEDURES Final Resul t * Hepatitis C Antibody with Reflex to HCV, RNA, Quantitative, Real-Time PCR (07/17/2024 3:20 PM EST) Hepatitis C Antibody Nonreactive Nonreactive [facility] Comment:Antibodies to HCV no t detected; does not exclude early acuteHCV infection. Blood Venous blood specimen / Unknown 07/17/2024 3:20 PM EST 07/17/2024 5:23 PM EST Rolanda Thakur MD LAB BLOOD ORDERABLES Final Result Performing Organization Address [facility] Co de Phone Number [facility] [address] [place] [phone] * (ABNORMAL) Lipid Panel, Standard (07/17/2024 3:20 PM EST) Triglycerides 89 <150 mg/dL [facility] Comment:Desirable Triglyceri de: less than 150 mg/dLBorderline High Triglyceride 150-199 mg/dLHigh Triglyceride: 200-499 mg/dLVery High Triglyceride: greater than or equal to 5OO mg/dL Cholesterol 193 <200 mg/dL [facility] Comment:Desirable Cholestero l: less than 200 mg/dLBorderline High Cholesterol: 200-239 mg/dLHigh Cholesterol: greater than 239 mg/dL LDL Cholesterol Calculated 111(H) <100 mg/dL [facility] Comment:Desirable LDL: less than 100 mg/dLNear Optimal/Above Optimal LDL: 110- 129 mg/dLBorderline High LDL: 130-159 mg/dLHigh LDL: 160-189 mg/dLVery High LDL: greater than or equal to 190 mg/dL HDL Cholesterol 65 >40 mg/dL [facility] Comment:Desirable HDL: great er than 40 mg/dL Note: This HDL assay may give artificially low results in patients with liver disease. Blood Venous blood specimen / Unknown 07/17/2024 3:20 PM EST 07/17/2024 5:23 PM EST us Rolanda Thakur MD LAB BLOOD ORDERABLES Final Result Performing Organization Address [facility]/ZIP Co de Phone Number [facility] [address] [place] [phone] * (ABNORMAL) Basic Metabolic Panel (07/17/2024 3:20 PM EST) Only the most recent of2 resultswithin the time period is included. Sodium 135 135 - 145 mmol/L [facility] Potassium 3.8 3.3 - 5.1 mmol/L [facility] Chloride 103 96 - 108 mmol/L [facility] Carbon Dioxide 21(L) 22 - 29 mmol/L [facility] Anion Gap 15 12 - 20 [facility] Urea Nitrogen (BUN) 14 9 - 16 mg/dL [facility] Creatinine, Serum 1.12 0.5 - 1.4 mg/dL [facility] Estimated Glomerular Filt Rate 48 [facility] Comment:Chronic Kidney Disea se: Estimated GFR < 60 mL/min/[id number] Kidney Disease: Estimated GFR < 15 mL/min/1.73m2 Glucose 170(H) 60 - 115 mg/dL [facility] Calcium 10.0 8.4 - 10.2 mg/dL [facility] Blood Venous blood specimen / Unknown 07/17/2024 3:20 PM EST 07/17/2024 5:23 PM EST us Rolanda Thakur MD LAB BLOOD ORDERABLES Final Result [facility] [address] [place] [phone] * (ABNORMAL) POCT Urinalysis (07/17/2024 3:11 PM EST) Color, UA Yellow Clarity, UA Clear Glucose, UA Negative Bilirubin, UA Negative Ketones, UA Negative Spec Grav, UA 1.010 Blood, UA Negative Negative, None Detected pH, UA 5.5 Protein, UA Negative Urobilinogen, UA 0.2 Leukocytes, UA Few 15(A) Negative, Rare, Trace Comment:small Nitrite, UA Negative Negative, None Detected Appearance, UA clear QC Media Lot # [id number] Lot# Expiration Date [id number] Urine 07/17/2024 3:11 PM EST us Rolanda Thakur MD POINT OF CARE TEST ENTER/ED IT ORDERABLES Final Result * Albumin, Random Urine W/Creatinine (07/17/2024 2:55 PM EST) Creatinine, Urine 38.88 mg/dL [facility] Microalbumin Urine <5.0 mg/L [facility] Microalbum Creatinine Ratio Ur TNP <30 ug/mg cr [facility] Comment:Unable to calculate albumin/creatinine ratio due to lowmicroalbumin or creatinine result. Urine (Urine, Random) 07/17/2024 2:55 PM EST 07/17/2024 5:25 PM EST us Rolanda Thakur MD LAB URINE ORDERABLES Final Result Performing Organization Address City/State/[facility] Co de Phone Number [facility] [address] [place] [phone] * POCT Glucose (07/17/2024 2:48 PM EST) Only the most recent of2 resultswithin the time period is included. Glucose Blood, POC 166 60 - 200 mg/dL Comment:random QC Media Lot # [id number] Lot# Expiration Date 82 Blood Capillary blood specimen / Unknown 07/17/2024 2:48 PM EST us Rolanda Thakur MD POINT OF CARE TEST ENTER/ED IT ORDERABLES Final Result * TSH W/Reflex to FT4 (07/09/2024 7:58 AM EST) TSH reflex Free T4 1.95 0.32 - 4.0 uIU/mL [facility] Blood Venous blood specimen / Unknown 07/09/2024 7:58 AM EST 07/09/2024 10:02 AM EST Edward Bach MD LAB BLOOD ORDERABLES Final Resul t [facility] [address] [place] [phone] [phone] * ECG 12 lead (07/08/2024) us Karen Alcantar MD ECG ORDERABLES Final Result * (ABNORMAL) POCT HGB A1C (07/06/2024 9:32 AM EST) Hemoglobin A1C 8.3(A) 4.0 - 6.0 % Blood 07/06/2024 9:32 AM EST Edward Bach MD POINT OF CARE TEST ENTER/EDIT OR DERABLES Final Result * HM gFOBT (01/03/2022) Fecal Occult Blood 1 Negative Fecal Occult Blood 2 Negative Fecal Occult Blood 3 Negative 01/03/2022 Chema Biggs MD POINT OF CARE TEST ENTER/ EDIT ORDERABLES Final Result from Last 3 Months or Most Recently Relevant to Health Maintenance Insurance [facility] MEDICARE REPLACEMENT Care Teams Taker Out Relationship Specialty Start Date End Date Rolanda Thakur MD [address] [place] [phone] PCP - General Internal Medicine 09/19/22
--- OUTSIDE RECORDS SUMMARY | 2024-09-24 12:58 | XMS_ITS | Encounter Summary ---
Author Organization [employer] Address [address] [place] [address] [place] [address] Care Team Providers Care Brass Chaser Name Role Phone Rolanda Thakur MD Primary Care Provider [phone]- [phone] Reason for Visit * Reason Comments Med Refill Encounter Details Date Type Department Care Team ([facility] st Contact Info) Description 09/15/2024 Refill [facility] MED & PEDS [address] [place], [place] [phone] Rolanda Thakur MD [address] [place] [address] Social History Tobacco Use Types Packs/Day Years [...] documented as of this encounter Care Teams Brass Chaser Relationship Specialty Start Date End Date Rolanda Thakur MD [address] [place] [phone] PCP - General Internal Medicine 09/19/22 documented as of this encounter
--- OUTSIDE RECORDS SUMMARY | 2024-09-24 12:58 | XMS_ITS | Encounter Summary ---
Author Organization [employer] Address [address] [place] [address] [place] [address] Care Team Providers Care Peoplesoft Functional Analyst Name Role Phone Rolanda Thakur MD Primary Care Provider +1- [phone] Encounter Details Date Type Department Care Team (Latest Contact Info) Description 08/17/2021 Abstract [facility] CONVERSIONS Dental, Provider, DDS Social History Tobacco Use Types Packs/Day Years Used Date Smoking Tobacco: Never Assessed Comments Unknown Sex and Gender Information Value [...] on filedocumented in this encounter Care Teams Peoplesoft Functional Analyst Relationship Specialty Start Date End Date Rolanda Thakur MD [address] [facility] [place] [address] PCP - General Internal Medicine 09/19/22 documented as of this encounter
--- OUTSIDE RECORDS SUMMARY | 2024-09-24 12:58 | XMS_ITS | Encounter Summary ---
Author Organization [employer] Address [address] [place] [address] [place] [address] Care Team Providers Care Tufting Creeler Name Role Phone Rolanda Thakur MD Primary Care Provider +1- [phone] Encounter Details Date Type Department Care Team (Late st Contact Info) Description 10/27/2023 Telephone [facility] MEDICINE [address] [place], [place] [phone] Rolanda Thakur MD [address] [place] [address] Social History Tobacco Use Types Packs/Day Years [...] on filedocumented in this encounter Care Teams Tufting Creeler Relationship Specialty Start Date End Date Rolanda Thakur MD [address] [place] [address] PCP - General Internal Medicine 09/19/22 documented as of this encounter
--- OUTSIDE RECORDS SUMMARY | 2024-09-24 12:58 | XMS_ITS | Encounter Summary ---
Author Organization [employer] Address [address] [facility] 7 [place] [address] Care Team Providers Care Loss Prevention Auditor Name Role Phone Rolanda Thakur MD Primary Care Provider [phone]- [phone] Reason for Visit * Reason Onset Date Comments Med Refill 08/19/2024 Encounter Details Date Type Department Care Team (Late st Contact Info) Description 08/19/2024 Refill [facility] [address] [place] [phone] Wyatt Huizar MD [address] [place], [place] [phone] Neck pain on left side Social History [...] documented as of this encounter Care Teams Loss Prevention Auditor Relationship Specialty Start Date End Date Rolanda Thakur MD [address] [place] [phone] PCP - General Internal Medicine 09/19/22 documented as of this encounter
--- OUTSIDE RECORDS SUMMARY | 2024-09-24 12:58 | XMS_ITS | Encounter Summary ---
Author Organization [email or web address] Address [address] [place] [address] Care Team Providers Care Brake Liner Name Role Phone Rolanda Thakur MD Primary Care Provider [phone]- [phone] Encounter Details Date Type Department Care Team ([facility] st Contact Info) Description 12/28/2023 Orders Only [facility] MED & PEDS [address] [place] [address] Rolanda Thakur MD [address] [place] [address] Social History Tobacco Use Types Packs/Day Years [...] on filedocumented in this encounter Care Teams Brake Liner Relationship Specialty Start Date End Date Rolanda Thakur MD [address] [place] [address] PCP - General Internal Medicine 09/19/22 documented as of this encounter
--- OUTSIDE RECORDS SUMMARY | 2024-09-24 12:58 | XMS_ITS | Encounter Summary ---
Author Organization [employer] Address [address] [place] [address] Care Team Providers Care Medical Policy Specialist Name Role Phone Rolanda Thakur MD Primary Care Provider [phone]- [phone] Reason for Visit * Reason Onset Date Comments Medication Question 10/23/2023 Encounter Details Date Type Department Care Team (Late st Contact Info) Description 10/23/2023 Telephone [facility] MEDICINE [address] [place] [address] Rolanda Thakur MD [address] [place], [place] [phone] Medication Question Social History Tobacco Use Types [...] encounter Miscellaneous Notes * Telephone Encounter - Sudhir Mcdonald - 10/23/2023 12:31 PM EST Tc from pharmacy calling to request if they could change the medication ascorbic acid (Vitamin C) 1000 MG tablet to 500 mg chewable due to being difficult for patient to swallow the 1000mg documented in this encounter Plan of Treatment Not on file documented as of this encounter Visit Diagnoses Not on filedocumented in this encounter Care Teams Medical Policy Specialist Relationship Specialty Start Date End Date Rolanda Thakur MD [address] [place] [phone] PCP - General Internal Medicine 09/19/22 documented as of this encounter
--- OUTSIDE RECORDS SUMMARY | 2024-09-24 12:58 | XMS_ITS | Encounter Summary ---
Author Organization [employer] Address 75 [facility] 7 [place] [address] Care Team Providers Care Equipment Oiler Name Role Phone Rolanda Thakur MD Primary Care Provider +1- [phone] Reason for Visit * Reason Onset Date Comments Nurse Triage 08/09/2024 Encounter Details Date Type Department Care Team (Late st Contact Info) Description 08/09/2024 Telephone [facility] MEDICINE [address] [place] [address] Rolanda Thakur MD [address] [place] [address] Nurse Triage Social History Tobacco Use Types [...] encounter Miscellaneous Notes * Telephone Encounter - Henyn Tan RN - 08/09/2024 4:35 PM EST Pt wants PCP to be made aware of the following: Completed CT Scan of Head today, would like a call back with results as soon as they are reviewed. Patient wants to know if has kidney disease due to elevated GFR? Mailed Cologuard today. 08/19/[address] scan 08/20/24 Chiropractor appointment * Telephone Encounter - Henny Tan RN - 08/09/2024 4:23 PM EST Call returned to Angely Pineda to triage below. Patient report having neck pain x 1 week. Per pt its on the front left side from the base of head and into collar bone. Pt applied heat with very mild/moderate relief. Pt has used OTC Tanya Back and Body. Pt was given Cyclobenzaprine in past but has not taken that recently. Pt denies any swelling, redness or rash over site. Pt states has advil topical cream for pain if is able to use. Pt advised of disposition, agrees to [facility] tomorrow. Pre booked iin 9:40am time slot. Reviewed home care advise, ER precautions and reasons to call back. Reviewed [facility] operating hours and that wait times vary. Protocol Used: Neck Pain or Stiffness (Adult) Protocol-Based Disposition: See in Office or Video Visit Today or Tomorrow Future Appointments Date Time Provider Department Center 08/10/2024 9:40 AM [facility] 2 WALK-IN [facility] Insurance verified as active per Real Time Eligibility in [facility]. Positive Triage Question: * Tenderness in front of neck over windpipe * All higher-acuity triage questions were negative Care Advice Discussed: * Reasons To Call Back - Moderate pain (such as interferes with normal activities) lasts over 3 days - Numbness or weakness occurs in your arms or legs - You become worse * Telephone Encounter - Danette Buenrostro - 08/09/2024 4:19 PM EST Symptom: Neck Pain - Not From Injury Outcome: Schedule an urgent appointment (within 4 hours) or talk to a nurse or provider soon Reason: Getting worse The caller accepted this outcome. documented in this encounter Plan of Treatment Not on file documented as of this encounter Visit Diagnoses Not on filedocumented in this encounter Additional Health Concerns Assessment Noted Time PHQ-9 Depression Total Score: 2 05/13/20 24 9:24 AM EDT documented as of this encounter Care Teams Equipment Oiler Relationship Specialty Start Date End Date Rolanda Thakur MD [address] [place] [phone] PCP - General Internal Medicine 09/19/22 documented as of this encounter
--- OUTSIDE RECORDS SUMMARY | 2024-09-24 12:58 | XMS_ITS | Encounter Summary ---
Author Organization [employer] Address [address] [place] [address] Care Team Providers Care Call Out Operator Name Role Phone Rolanda Thakur MD Primary Care Provider [phone]- [phone] Reason for Visit * Reason Onset Date Comments Nurse Triage 12/12/2023 Encounter Details Date Type Department Care Team (Late st Contact Info) Description 12/12/2023 Telephone [facility] MEDICINE [address] [place] [address] Rolanda Thakur MD [address] [place] [address] Nurse Triage Social History Tobacco Use Types [...] * Telephone Encounter - Maureen Feng - 12/14/2023 3:35 PM EDT Tc from pt requesting to speak to 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 Pack Master did advised appt is still expected. Pt is scheduled tmr 12/15/23 for ( chest congestion, cough , yellow nasal drainage. ) Please contact at [phone] * Telephone Encounter - Viktoria Schultz RN - 12/12/2023 2:56 PM EDT Triage call Pt reports continued symptoms which began 12/02/23. Pt had tele visit 12/07/23 and has continued with mucinex Er, flonase , drinking adequate liquids and using saline nasal spray. Pt reports symptoms haven't gotten better. Pt reports continued cough , nasal drainage dark yellow, neg for fever. Pt continues to go to work and is unable to get time off at this point. Pt is advised to come to [facility] today to be seen since open till 8pm. PT is not sure if will be able to do that. Pack Master contacted Haylie Barrientos [facility] and asked if would be possible to schedule Pt at [facility] 12/15/23 340pm apt which Pt would be able to attend. Permission was given and Pt was scheduled. Insurance is verified as active. Protocol Used: Cough (Adult) Protocol-Based Disposition: See in Office or Video Visit within 3 Days Video visit not offered Positive Triage Questions: * Cough has been present for > 3 weeks * Nasal discharge present > 10 days * All higher-acuity triage questions were negative Care Advice Discussed: * Reassurance and Education - Cough * Cough Medicines * Coughing Spells * Prevent Dehydration * Humidifier * Telephone Encounter - Raz Manuel - 12/12/2023 2:15 PM EDT Symptoms: Cough, Chest Congestion, Pain in gums (near back molar) Outcome: Schedule an urgent appointment (within 1 hour) or talk to a nurse or provider soon Reason: Severe pain now documented in this encounter Plan of Treatment Not on file documented as of this encounter Visit Diagnoses Not on filedocumented in this encounter Care Teams Call Out Operator Relationship Specialty Start Date End Date Rolanda Thakur MD [address] [place] [address] PCP - General Internal Medicine 09/19/22 documented as of this encounter
--- OUTSIDE RECORDS SUMMARY | 2024-09-24 12:58 | XMS_ITS | Encounter Summary ---
Author Organization [employer] Address [address] [place] [address] [place] [address] Care Team Providers Care Insulation Power Unit Tender Name Role Phone Rolanda Thakur MD Primary Care Provider [phone]- [phone] Reason for Visit * Reason Comments Med Refill Encounter Details Date Type Department Care Team ([facility] st Contact Info) Description 09/04/2024 Refill [facility] MED & PEDS [address] [place], [place] [phone] Rolanda Thakur MD [address] [place] [address] Anxiety; Benign essential hypertension Social History Tobacco Use [...] as of this encounter Visit Diagnoses Diagnosis Anxiety Anxiety state, unspecified Benign essential hypertension Essential hypertension, benign documented in this encounter Additional Health Concerns Assessment Noted Time PHQ-9 Depression Total Score: 2 05/13/20 24 9:24 AM EDT documented as of this encounter Care Teams Insulation Power Unit Tender Relationship Specialty Start Date End Date Rolanda Thakur MD [address] [place] [address] PCP - General Internal Medicine 09/19/22 documented as of this encounter
--- OUTSIDE RECORDS SUMMARY | 2024-09-24 12:58 | XMS_ITS | Encounter Summary ---
Author Organization [employer] Address [address] [place] [address] Care Team Providers Care Piece Cutter Name Role Phone Rolanda Thakur MD Primary Care Provider +1- [phone] Encounter Details Date Type Department Care Team ([facility] st Contact Info) Description 08/18/2023 Orders Only [facility] MED & PEDS [address] [place] [address] Rolanda Thakur MD [address] [place] [address] Social History Tobacco Use Types Packs/Day Years [...] on filedocumented in this encounter Care Teams Piece Cutter Relationship Specialty Start Date End Date Rolanda Thakur MD [address] [place] [address] PCP - General Internal Medicine 09/19/22 documented as of this encounter
--- OUTSIDE RECORDS SUMMARY | 2024-09-24 12:58 | XMS_ITS | Clinical Summary ---
Author Organization [facility] Facility Address [address] [place] [address] Care Team Providers Care Afloat Cryptologic Manager Name Role Phone Maren Hough MD Primary Care Provider [phone] Social History Tobacco Use Types Packs/Day Years Used Date Smoking Tobacco: Never Assessed Comments Unknown Sex and Gender Information Value Date Recorded Sex Assigned at Not on file Legal Sex Female 2:55 PM EDT Gender Identity Not on file Sexual Orientation Not on file Plan of Treatment Health Maintenance Due Date Last Done Comments Breast Cancer Screening 1950 Colorectal Cancer Screening: Annual FOBT 2000 Colorectal Cancer Screening: Colonoscopy 2000 Colorectal Cancer Screening: Sigmoidoscopy 2000 Pneumococcal Vaccine: 65+ Years (2 of 2 - PCV) 2016 05/29/2014, 07/22/2008 Diabetes: Hemoglobin A1C 06/19/2022 Diabetes: Ophthalmology Exam 06/19/2022 Diabetes: Pedal Pulse Checked 06/19/2022 Diabetes: Sensory Foot Exam 06/19/2022 Diabetes: Visual Foot Exam 06/19/2022 Influenza Vaccine (#1) 2024 9, 07/22/2008 Hepatitis B Vaccine Aged Out No longe r eligible based on patient's age to complete this topic Insurance [facility] MEDICARE [facility] MEDICARE Care Teams Afloat Cryptologic Manager Relationship Specialty Start Date End Date Maren Hough MD [address] [place] [address] PCP - General Family Medicine 06/20/22
--- OUTSIDE RECORDS SUMMARY | 2024-09-24 12:58 | XMS_ITS | Encounter Summary ---
Author Organization [employer] Address [address] [place] [address] Care Team Providers Care Director Dental Services Name Role Phone Rolanda Thakur MD Primary Care Provider [phone] Reason for Visit * Reason Onset Date Comments Med Refill 10/27/2023 Encounter Details Date Type Department Care Team (Late st Contact Info) Description 10/27/2023 Telephone [facility] [address] [place] [address] Rolanda Thakur MD [address] [place] [address] Med Refill Social History Tobacco Use Types [...] * Telephone Encounter - Hannah Betancourt - 10/27/2023 3:53 PM EST Tc from pt requesting status on medication 125 Please contact pt @ [phone] No meds. * Telephone Encounter - Haylie Cantor RN - 10/27/2023 3:44 PM EST Patient reporting alternating days of synthroid 125 mcg and synthroid 137 mcg. Requesting new script for synthroid 125 mcg. Please review and advise, thanks. Tc from pt requesting levothyroxine (Synthroid) 125 MCG tablet, sheet writer do not see med in chart but pt stated has been taking this medication for 10 years, pt switch 137 and 125 every day, sheet writer attempted to contact pharmacy for clarifications but [facility] [address] open at 9:00AM. * Telephone Encounter - Jenny Neff - 10/27/2023 8:31 AM EST Tc from pt requesting levothyroxine (Synthroid) 125 MCG tablet, sheet writer do not see med in chart but pt stated has been taking this medication for 10 years, pt switch 137 and 125 every day, sheet writer attempted to contact pharmacy for clarifications but [facility] [address] open at 9:00AM. documented in this encounter Plan of Treatment Not on file documented as of this encounter Visit Diagnoses Not on filedocumented in this encounter Care Teams Director Dental Services Relationship Specialty Start Date End Date Rolanda Thakur MD [address] [place] [address] PCP - General Internal Medicine 09/19/22 documented as of this encounter
--- OUTSIDE RECORDS SUMMARY | 2024-09-24 12:58 | XMS_ITS | Encounter Summary ---
Author Organization [employer] Address [address] [place] [address] Care Team Providers Care Air Crew Supervisor Name Role Phone Rolanda Thakur MD Primary Care Provider [phone] Encounter Details Date Type Department Care Team ([facility] st Contact Info) Description 10/27/2023 Orders Only [facility] MED & PEDS [address] [place] [address] Bhavesh Yang, RN [address] [place] [address] Social History Tobacco Use Types Packs/Day Years [...] on filedocumented in this encounter Care Teams Air Crew Supervisor Relationship Specialty Start Date End Date Rolanda Thakur MD [address] [place] [address] PCP - General Internal Medicine 09/19/22 documented as of this encounter
--- OUTSIDE RECORDS SUMMARY | 2024-09-24 12:58 | XMS_ITS | Encounter Summary ---
Author Organization [employer] Address [address] [place] [address] Care Team Providers Care Site Inspector Name Role Phone Rolanda Thakur MD Primary Care Provider [phone]- [phone] Reason for Referral * Consultation (Routine) - Authorized Specialty Diagnoses / Procedures Referred By Contac t Referred To Contact Endocrinology Diagnoses Type 2 diabetes mellitus without complication, without long-term current use of insulin (CMS/HCC) Rolanda Thakur MD [address] [place] [address] Phone: tel: fax: [facility] [address] [place] [phone] Phone: tel: fax: Referral ID Status Reason Start Date Expiration Date Visits Requested Visits Authorized [id number] Authorized Specialty Services Required 08/26/2024 08/26/2025 1 1 Encounter Details Date Type Department Care Team (Late st Contact Info) Description 08/26/2024 Orders Only [facility] CHC MED & PEDS [address] [place] [address] [phone] Rolnada Thakur MD [address] [place] [address] Type 2 diabetes mellitus without complication, without long-term current use of insulin (CMS/HCC) (Primary Dx) Social History Tobacco Use [...] Priority Associated Diagnoses Order Schedule Referral to Endocrinology Outpatient Referral Routine Type 2 diabetes mellitus without complication, without long-term current use of insulin (CMS/HCC) Expected: 08/26/2024 (Approximate), Expires: 08/26/2025 documented as of this encounter Visit Diagnoses Diagnosis Type 2 diabetes mellitus without complication, without long-term current use of insulin (CMS/HCC)- Primary documented in this encounter Additional Health Concerns Assessment Noted Time PHQ-9 Depression Total Score: 2 05/13/20 24 9:24 AM EDT documented as of this encounter Care Teams Site Inspector Relationship Specialty Start Date End Date Rolanda Thakur MD [address] [place] [address] PCP - General Internal Medicine 09/19/22 documented as of this encounter
[2024-09-24 13:02] VITALS: BP 124/90; PULSE 70; TEMP 37.1; O2SAT 99
--- NOTE | 2024-09-24 13:02 | MHC.OFFWIV ---
Intake Vital Signs 09/24/24 13:02 Weight 155 lb BP 124/90 H Blood Pressure Location Lt brachial Position Sitting Pulse 70 Pulse Source Pulse Oximeter Temp 98.7 F Temp Source Oral Pulse Oximetry (%) 99 Oxygen Delivery Method Room Air Intake Visit Reasons: EP-?walking pneumonia Intake Note: Patient here for stiff neck, cough, runny nose that started today Patient Tobacco Use Status: Never used Tobacco Allergies ciprofloxacin Allergy (Verified 09/24/24 13:10) Unknown sulfamethoxazole [From Bactrim] Allergy (Verified 09/24/24 13:10) Unknown trimethoprim [From Bactrim] Allergy (Verified 09/24/24 13:10) Unknown gabapentin [GABAPENTIN] Adverse Reaction (Mild, Verified 09/24/24 13:10) NAUSEA acetaminophen [From PERCOCET] Adverse Reaction (Unknown, Verified 09/24/24 13:10) VOMITTING codeine [CODEINE] Adverse Reaction (Unknown, Verified 09/24/24 13:10) VOMITTING meperidine [From DEMEROL] Adverse Reaction (Unknown, Verified 09/24/24 13:10) VOMITTING morphine [MORPHINE] Adverse Reaction (Unknown, Verified 09/24/24 13:10) CANT OPEN HER EYES oxycodone [From PERCOCET] Adverse Reaction (Unknown, Verified 09/24/24 13:10) VOMITTING scallops [SCALLOPS] Adverse Reaction (Unknown, Verified 09/24/24 13:10) ABD PAIN Do you need a note to return to daycare/school/sports/work: Yes HPI HPI Comments History of Present Illness Details History - The patient is a 74-year-old female presenting with symptoms of a viral upper respiratory infection, including dry cough, runny nose and sore throat and sinus pain, occurring over three days. Denies headaches, fevers. Past medical history is significant for episodes of pneumonia, type 2 diabetes mellitus, and coronary artery disease. She notes ongoing anxiety, exacerbated by recent cataract surgery, and a history of sinus pain likely impacting her ocular health. There is a family history of cardiac issues influencing current health perceptions. Physical Exam General: Cooperative, healthy appearing, comfortable and no acute distress Orientation/consciousness: Patient oriented x3 Limitations: No limitations Head: Normal to inspection Ears: Hearing grossly normal bilaterally, external ears normal and TM's normal bilaterally with some erythema Nose: Normal external nose present, Normal nares present Face and sinus: Normal facial exam and Sinuses tender Mouth: Normal oral and palatal mucosa present and moist mucous membranes Throat: Yes tonsils normal, Yes uvula midline. Posterior oropharynx erythema, redness present Eyes: Appearance normal, both eyes and all related structures Neck: Normal visual inspection, pain going down the back of the neck Respiratory: Clear to auscultation bilaterally. Normal respiratory effort, able to speak in complete sentences, Actively coughing, no respiratory distress, not tachypneic, no tripod positioning and no use of accessory muscles Cardiovascular: Regular rate and rhythm. 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 Supportive care with [id number] anticongestants, prescribed Tessalon Perles for cough suppression at night, and Mucinex during the day are recommended. Pain management should involve ibuprofen to reduce inflammation and subsequent symptoms. Nasal irrigation combined with nasal steroids should alleviate sinus discomfort. Vigilance for bacterial superinfection is essential, given past PNA episode. Patient was informed and verbally consented to the use of an ambient scribe for clinic note documentation during this visit Orders: Orders SARS-CoV2/FLU/RSV Today R09.89 - Other specified symptoms and signs involving the circulatory and respiratory systems Medications: New benzonatate 200 mg PO TID PRN 14 caps 0RF cough Coding Level of Care Code New Pt Level 3 (73479) Diagnoses Viral illness B34.9
== END 2024-09-24 13:52 | disposition home or self-care (01) ==
PROVIDERS: PCP Internal Medicine; Visit Provider Physician Assistant
DX: B34.9 Viral infection, unspecified (principal)

== ENCOUNTER 2024-09-24 12:14 | Outpatient (REF) | payer MEDICARE, SELFPAY ==
--- OUTSIDE RECORDS SUMMARY | 2024-09-24 13:37 | XMS_ITS | Encounter Summary ---
Author Organization [employer] Address [address] [place] [address] 7 [place] [address] Care Team Providers Care Shrimp Boat Captain Name Role Phone Rolanda Thakur MD Primary Care Provider [phone]- [phone] Reason for Visit * Reason Comments Med Refill Encounter Details Date Type Department Care Team ([facility] st Contact Info) Description 01/05/2023 Refill [facility] CH[facility] MED & PEDS [address] [place] [address] Karoline Castañeda MD [address] [place] [address] Social History Tobacco Use Types Packs/Day Years [...] on filedocumented in this encounter Care Teams Shrimp Boat Captain Relationship Specialty Start Date End Date Rolanda Thakur MD [address] [place] [address] PCP - General Internal Medicine 09/19/22 documented as of this encounter
--- OUTSIDE RECORDS SUMMARY | 2024-09-24 13:37 | XMS_ITS | Encounter Summary ---
Author Organization [employer] Address [address] [place] [address] Care Team Providers Care Redrawer Name Role Phone Rolanda Thakur MD Primary Care Provider [phone]- [phone] Reason for Visit * Reason Onset Date Comments Referral 06/13/2024 Encounter Details Date Type Department Care Team (Late st Contact Info) Description 06/13/[address] [facility] MEDICINE [address] [place] [address] Rolanda Thakur MD [address] [place], [place] [phone] Referral Social History Tobacco Use Types Packs/Day [...] documented as of this encounter Care Teams Redrawer Relationship Specialty Start Date End Date Rolanda Thakur MD [address] [place] [address] PCP - General Internal Medicine 09/19/22 documented as of this encounter
--- OUTSIDE RECORDS SUMMARY | 2024-09-24 13:37 | XMS_ITS | Encounter Summary ---
Author Organization [employer] Address [address] [facility] 7 [place] [address] Care Team Providers Care Community Outreach Manager Name Role Phone Rolanda Thakur MD Primary Care Provider [phone]- [phone] Reason for Visit * Reason Onset Date Comments Durable Medical Equipment 04/29/2024 Encounter Details Date Type Department Care Team (Late st Contact Info) Description 04/29/2024 Telephone [facility] MEDICINE [address] [place] [address] Rolanda Thakur MD [address] [place] [address] Durable Medical Equipment Social History Tobacco Use [...] - 04/29/2024 3:34 PM EDT Tc from [facility]entioned pharmacy stating pt is requesting blood pressure monitor but they don't have a script. If any questions you can contact [employer] at [phone]. documented in this encounter Plan of Treatment Not on file documented as of this encounter Visit Diagnoses Not on filedocumented in this encounter Care Teams Community Outreach Manager Relationship Specialty Start Date End Date Rolanda Thakur MD [address] [place] [address] PCP - General Internal Medicine 09/19/22 documented as of this encounter
--- OUTSIDE RECORDS SUMMARY | 2024-09-24 13:37 | XMS_ITS | Encounter Summary ---
Author Organization [email or web address] [address] Care Team Providers Care Taxation Economist Name Role Phone Rolanda Thakur MD Primary Care Provider [phone] Encounter Details Date Type Department Care Team (Latest Contact Info) Description 09/07/2024 9:51 AM EST - 09/07/2024 11:59 PM EST Hospital Encounter [facility] Xray [address] [place] [phone] Pain Discharge Disposition: Home or Self Care [...] Signed Date: 09/09/2024 07:17 ET Workstation ID: [id number] Transcribed By: Self Edit Transcribed Date: 09/09/2024 [...] Signed Date: 09/09/2024 07:17 ET Workstation ID: [id number] Transcribed By: Self Edit Transcribed Date: 09/09/2024 07:11 ET Jamel Gilbert DC IMG XR PROCEDURES documented in this encounter Visit Diagnoses Diagnosis Pain Generalized pain documented in this encounter Care Teams Taxation Economist Relationship Specialty Start Date End Date Rolanda Thakur MD [address] [place], [place] PCP - General 11/03/23 documented as of this encounter
--- OUTSIDE RECORDS SUMMARY | 2024-09-24 13:37 | XMS_ITS | Clinical Summary ---
Author Organization [address] [facility] Address [address] [place] [address] Phone Care Team Providers Care Regulatory Agency Director Name Role Phone Rolanda Thakur MD Primary Care Provider [phone] Allergies Active Allergy Reactions Criticality Noted Date [...] aware that this will likely be an xme-xj-ykomvt cost and feels as though she can afford it. I will review results and determine need for future follow-up. In the meantime she would like to hold off on statin therapy which I think is totally reasonable. Orders: ECG 12 lead Pure hypercholesterolemia 07/08/2024 Assessment & Plan (07/08/2024 4:42 PM EST): See plan above. Encounters Date Type Department Care Team Description 09/12/2024 Telephone [facility] [address] [address] Nikki Rawls MD Hypertension 09/07/2024 9:51 AM EST - 09/07/2024 11:59 PM EST Hospital Encounter [facility] Xray [address] [place] [address] Pain Discharge Disposition: Home or Self Care 09/07/2024 9:45 AM EST - 09/07/2024 11:59 PM EST Hospital Encounter [facility] Xray [address] [place] [address] Pain Discharge Disposition: Home or Self Care 08/22/2024 Telephone [facility] [address] [address] scan 08/09/2024 11:25 AM EST - 08/09/2024 11:59 PM EST Hospital Encounter [facility] CT Scan [address] [place] [address] Essential (primary) hypertension Discharge Disposition: Home or Self Care 08/02/2024 Telephone [facility] [address] [place] [address] Nikki Rawls MD Appointment (CT Coronary Calcium Scoring) 07/10/2024 Telephone [facility] [address] [place] [address] Lorraine Leblanc MA TESTING (Calcium channel score CT scan) 07/10/2024 Telephone [facility] [address] [place] [address] Lorraine Leblanc MA 07/08/2024 2:00 PM EST Office Visit [facility] [address] [place] [address] Nikki Rawls MD Chest pain, unspecified type (Primary Dx); Pure hypercholesterolemia 06/24/2024 Telephone [facility] [address] [place] [address] Carl Valencia MD from Last 3 Months [...] 2:16 PM EST Chest pain, unspecified type [facility] SCREENING DIGITAL Routine 10/23/2023 9:44 AM EST Encounter for screening mammogram for malignant neoplasm of breast [facility] DEXA AXIAL SKELETON Routine 04/12/2023 7:46 AM [...] Signed Date: 09/09/2024 07:17 ET Workstation ID: [id number] Transcribed By: Self Edit Transcribed Date: 09/09/2024 [...] Signed Date: 09/09/2024 07:17 ET Workstation ID: [id number] Transcribed By: Self Edit Transcribed Date: 09/09/2024 [...] Signed Date: 09/09/2024 07:17 ET Workstation ID: [id number] Transcribed By: Self Edit Transcribed Date: 09/09/2024 [...] Signed Date: 09/09/2024 07:17 ET Workstation ID: [id number] Transcribed By: Self Edit Transcribed Date: 09/09/2024 [...] Signed Date: 08/12/2024 10:43 ET Workstation ID: [id number] Transcribed By: Self Edit Transcribed Date: 08/12/2024 10:36 ET Narrative 08/12/2024 10:43 AM EST EXAMINATION: CT brain without contrast. COMPARISON: None. CLINICAL INDICATION: Uncontrolled hypertension. TECHNIQUE: 2.5 mm thin axial and reformatted 3 mm thin sagittal and coronal images of brain were obtained without contrast. Scanner: [employer] 64 slice VCT Dose reduction technique: ASIR [...] of brain were obtained without contrast. [facility] slice V[facility] Dose reduction technique: ASIR [...] Signed Date: 08/12/2024 10:43 ET Workstation ID: [id number] Transcribed By: Self Edit Transcribed Date: 08/12/2024 10:36 ET Karen Alcantar MD IMG CT PROCEDURES * ECG 12 lead (07/08/2024 2:16 PM EST) Ventricular Rate ECG 67 BPM GEMUSE Atrial Rate 67 BPM GEMUSE P-R Interval 142 ms GEMUSE QRS Duration 80 ms GEMUSE Q-T Interval 404 ms GEMUSE QTc 426 ms GEMUSE P Wave [place] 30 degrees GEMUSE R [place] 30 degrees GEMUSE T [place] 9 degrees GEMUSE ECG Interpretation Normal sinus [...] PM EST Narrative 10/23/2023 9:44 AM EST [facility] Diagnostic Imaging Department [address] [place], [place] [id number] Patient: ??ANGELY DUONG ?/Age/Sex: 1950 73 - F Unit#: ??[id number] ? Location/Status: ??SPDIMAM/REG CLI ? Mnemonic/Ordering Site: ??DIGSC/SPMAIN Ordering Physician: ??MAREN HOUGH MD [facility] Screening Digital - 10/21/[address]809 Report Status:Signed EXAM: [facility] Screening Digital EXAM DATE AND TIME: 10/21/2023 8:11 AM HISTORY: ??Screening. COMPARISON: ??10/12/22, 06/08/21, 03/04/20 TECHNIQUE: Bilateral digital breast tomosynthesis was performed in the CC and MLO projections. Computer aided detection with [employer] 3D 3.1 was employed. TISSUE DENSITY: a. [...] Note Maria Guadalupe Gotti MD - 04/08/2024 [facility] Diagnostic Imaging Department [address] [place] [address] Patient: ANGELY DUONGO.B./Age/Sex: 1950 - 73 - F Unit#: [id number] [facility] CLI Mnemonic/Ordering Site: [facility] Ordering Physician: MAREN HOUGH MD [facility] Screening Digital - 10/21/23 - 0810 Report Status:Signed EXAM: [facility] Screening Digital EXAM DATE AND TIME: 10/21/2023 8:11 AM HISTORY: Screening. COMPARISON: 10/12/22, 06/08/21, 03/04/20 TECHNIQUE: Bilateral digital breast tomosynthesis was performed in the CCand MLO projections. Computer aided detection with [employer] 3D 3.1was employed. TISSUE DENSITY: a. The [...] Maren Hough MD IMG BI PROCEDURES * [facility] DEXA AXIAL SKELETON (04/12/2023 7:46 AM EDT) Anatomical Region Laterality Modality Mammography 04/11/2023 3:03 PM EDT Narrative 04/12/2023 7:46 AM EDT [facility] Diagnostic Imaging Department [address] [place] [address] Patient: ??ANGELY DUONG ?/Age/Sex: 1950 72 - F Unit#: ??[id number] ? Location/Status: ??SPDIMAM/REG CLI ? Mnemonic/Ordering Site: ??MAMDEXAAX/SPMAM Ordering Physician: ??MAREN HOUGH MD [facility] Dexa Axial Skeleton - 04/11/23 - 1533 [...] probability of hip fracture of 2.2%. Code 49103 Dictating Physician: ??GWENDOLYN KENNEDY MD Electronically Signed by: ??GWENDOLYN KENNEDY MD Dic Date/Time: ??04/12/23 0745 Sign date/Time: ??04/12/23 0746 Procedure Note Gwendolyn Kennedy MD - 09/26/2023 [facility] Diagnostic Imaging Department [address] [place] [address] Patient: ADANGELYIRIS LIVINGSTON D.O.B./Age/Sex: 1950 - 72 - F Unit#: [id number] [facility] Ordering Physician: MAREN HOUGH MD [facility] Dexa Axial Skeleton - 04/11/23 - 4520 Report Status:Signed HISTORY: The patient is a [...] density of the femurs bilaterally is 0.874 gm/pa3gcqkt is 87% of that of young normals [...] probability of hip fracture of 2.2%. Code 42273 Dictating Physician: GWENDOLYN KENNEDY MD Electronically Signed by: GWENDOLYN KENNEDY MD Dic Date/Time: 04/12/2345 Sign date/Time: 04/12/2346 Maren Hough MD IMG BI PROCEDURES from Last 3 Months or Most Recently Relevant to Health Maintenance Care Teams Regulatory Agency Director Relationship Specialty Start Date End Date Rolanda Thakur MD [address] [place], [place] PCP - General 11/03/23
--- OUTSIDE RECORDS SUMMARY | 2024-09-24 13:37 | XMS_ITS | Encounter Summary ---
Author Organization [employer] Address [address] [place] [address] [facility] [place] [address] Care Team Providers Care Insurance Examiner Name Role Phone Rolanda Thakur MD Primary Care Provider [phone] Reason for Referral * Consultation (Routine) - Closed Specialty Diagnoses / Procedures Referred By Freddy meadows Referred To Contact Neurology Diagnoses Other polyneuropathy Rolanda Thakur MD [address] [place] [address] Phone: tel: fax: [facility] Neurology [address] [place], [place] Phone: tel: fax: Referral ID Status Reason Start Date Expiration Date V isits Requested Visits Authorized [id number] Closed Specialty Services Required 11/22/2023 11/21/2024 1 1 * Consultation (Routine) - Closed Specialty Diagnoses / Procedures Referred By Freddy meadows Referred To Contact Physiatry Diagnoses Other polyneuropathy Rolanda Thakur MD [address] [place] [address] Phone: tel: fax: Referral ID Status Reason Start Date Expiration Date V isits Requested Visits Authorized [id number] Closed Specialty Services Required 11/17/2023 11/16/2024 1 1 Encounter Details Date Type Department Care Team (Late st Contact Info) Description 11/16/2023 Orders Only [facility] CHC MED & PEDS [address] [place] [address] Rolanda Thakur MD [address] [place] [address] Other polyneuropathy (Primary Dx) Social History Tobacco [...] Primary documented in this encounter Care Teams Insurance Examiner Relationship Specialty Start Date End Date Rolanda Thakur MD [address] [place] [address] PCP - General Internal Medicine 09/19/22 documented as of this encounter
--- OUTSIDE RECORDS SUMMARY | 2024-09-24 13:37 | XMS_ITS | Encounter Summary ---
Author Organization [employer] Address [address] [place] [address] 7 [place] [address] Care Team Providers Care Pipe Washer Name Role Phone Rolanda Thakur MD Primary Care Provider [phone]- [phone] Reason for Visit * Reason Comments Med Refill Encounter Details Date Type Department Care Team (Late st Contact Info) Description 12/28/2022 Refill [facility] CHC MED & PEDS [address] [place] [address] Maren Hough MD [address] [place] [address] Type 2 diabetes mellitus without complication, without long-term current use of insulin ([facility]); Anxiety Social History Tobacco Use Types Packs/Day [...] complication, without long-term current use of insulin ([facility]) Anxiety Anxiety state, unspecified documented in this encounter Care Teams Pipe Washer Relationship Specialty Start Date End Date Rolanda Thakur MD [address] [place] [address] PCP - General Internal Medicine 09/19/22 documented as of this encounter
--- OUTSIDE RECORDS SUMMARY | 2024-09-24 13:37 | XMS_ITS | Encounter Summary ---
Author Organization [employer] Address [address] [place] [address] Care Team Providers Care Emt Intermediate Name Role Phone Rolanda Thakur MD Primary Care Provider [phone]- [phone] Reason for Referral * Consultation (Routine) - Closed Specialty Diagnoses / Procedures Referred By Freddy t Referred To Contact Chiropractic Medicine Diagnoses Chronic left-sided low back pain with left-sided sciatica Rolanda Thakur MD [address] [place] [address] Phone: tel: fax: [facility] fax: Referral ID Status Reason Start Date Expiration Date V isits Requested Visits Authorized [id number] Closed Specialty Services Required 08/08/2024 08/08/2025 1 1 * Consultation (Routine) - Closed Specialty Diagnoses / Procedures Referred By Freddy t Referred To Contact Physical Therapy Diagnoses Chronic left-sided low back pain with left-sided sciatica Rolanda Thakur MD [address] [place] [address] Phone: tel: fax: [facility] [place] [address] [place] [address] Phone: tel: fax: Referral ID Status Reason Start Date Expiration Date V isits Requested Visits Authorized [id number] Closed Specialty Services Required 08/05/2024 08/05/2025 1 1 * Consultation (Routine) - Closed Specialty Diagnoses / Procedures Referred By Freddy meadows Referred To Contact Chiropractic Medicine Diagnoses Chronic left-sided low back pain with left-sided sciatica Rolanda Thakur MD [address] [place] [address] Phone: tel: fax: Referral ID Status Reason Start Date Expiration Date V isits Requested Visits Authorized [id number] Closed Specialty Services Required 08/02/2024 08/02/2025 1 1 Encounter Details Date Type Department Care Team ([facility] Contact Info) Description 08/02/2024 Orders Only [facility] CHC MED & PEDS [address] [place] [address] Rolanda Thakur MD [address] [place] [address] Chronic left-sided low back pain with left-sided [...] Adult Primary Care ?[address] ? [place] [address] ?XRay Report ? Signed ? Patient: Cook,Angely ?MR#: [id number] ? : 1950 ?Acct:[id number] ? Age/Sex: 74 / F ?ADM Date: 08/12/24 ? Loc: HO.HMGCX ? Attending Dr: Wyatt Golden MD ? Ordering Physician: Wyatt Golden MD ?? Date of Service: 08/12/24 ?? Procedure(s): XR cervical spine 5V ?? Accession Number(s): [id number] ? cc: Rolanda Thakur MD; Wyatt Golden [...] DD/ 0950 ? TD/TT: 08/12/24 1000 ? Grain Drier Operator: ? Procedure Note Darrell Fonseca - 09/02/2024 [facility] [address] [facility] [address] [place], [place] [address] XRay Report Signed Patient: Zion PinedaJean-Paul#: [id number] : 1Acct:[id number] Age/Sex: 74 / FADM Date: 08/12/24 Loc: HO.HMGCX Attending Dr: Wyatt Golden MD Ordering Physician: Wyatt Golden MD Date of Service: 08/12/24 Procedure(s): XR cervical spine 5V Accession Number(s): [id number] cc: Rolanda Thakur MD; Wyatt Golden MD [...] by: Yuridia Becerra MD 09/02/2024 11:21 AM [facility] Dictated By: Yuridia Becerra MD Signed By: <Electronically signed by Yuridia Becerra MD in OV> 09/02/24 1121 DD/ 0950 TD/TT: 08/12/24 1000 Grain Drier Operator: us Wyatt Mcdonald MD IMG XR PROCEDURES Iftikhar mecca Result - Final documented in this encounter Visit Diagnoses Diagnosis Chronic left-sided low back pain with left-sided sciatica- Primary documented in this encounter Additional Health Concerns Assessment Noted Time PHQ-9 Depression Total Score: 2 05/13/20 24 9:24 AM EDT documented as of this encounter Care Teams Emt Intermediate Relationship Specialty Start Date End Date Rolanda Thakur MD [address] [place] [address] PCP - General Internal Medicine 09/19/22 documented as of this encounter
--- OUTSIDE RECORDS SUMMARY | 2024-09-24 13:37 | XMS_ITS | Encounter Summary ---
Author Organization [employer] Address [address] [place] [address] [place] [address] Care Team Providers Care Compliance Attorney Name Role Phone Rolanda Thakur MD Primary Care Provider [phone]- [phone] Reason for Visit * Reason Onset Date Comments CT scan order 07/03/2024 Encounter Details Date Type Department Care Team ([facility] Contact Info) Description 07/03/2024 Telephone [facility] CHC MED & PEDS [address] [place] [address] Rolanda Thakur MD [address] [place] [address] CT scan order Social History Tobacco Use [...] incorrect location. Pt prefers being seen in [facility]. Please call pt to clarify. documented in this encounter Plan of Treatment Not on file documented as of this encounter Visit Diagnoses Not on filedocumented in this encounter Additional Health Concerns Assessment Noted Time PHQ-9 Depression Total Score: 2 05/13/20 24 9:24 AM EDT documented as of this encounter Care Teams Compliance Attorney Relationship Specialty Start Date End Date Rolanda Thakur MD [address] [place] [address] PCP - General Internal Medicine 09/19/22 documented as of this encounter
--- OUTSIDE RECORDS SUMMARY | 2024-09-24 13:37 | XMS_ITS | Encounter Summary ---
Author Organization [employer] Address [address] [place] [address] [place] [address] Care Team Providers Care Noise Tester Name Role Phone Rolanda Thakur MD Primary Care Provider Encounter Details Date Type Department Care Team ([facility] st Contact Info) Description 01/22/2024 Orders Only [facility] CHC MED & PEDS [address] [place] [address] Rolanda Thakur MD [address] [place] [address] Benign essential hypertension Social History Tobacco Use [...] AM EDT Narrative 02/19/2024 12:38 PM EDT ?[facility] ?[address] ?[place] [address] ?XRay Report ? Signed ? Patient: Angely Pineda ?MR#: [id number] ? : 1950 ?Acct:[id number] ? Age/Sex: 73 / F ?ADM Date: 02/19/24 ? Loc: HO.HHCX ? Attending Dr: Migdalia PALMER ? Ordering Physician: Migdalia Loza ?? Date of Service: 02/19/24 ?? Procedure(s): XR toe RT min 2V ?? Accession Number(s): [id number] ? cc: Migdalia Loza ? EXAMINATION: ?? [...] 1234 ? DD/ 112 ? TD/TT: ? Senior Engineer: SS ? Procedure Note Darrell Fonseca - 02/19/2024 [facility] [address] [place] [address] XRay Report Signed Patient: Angely Pineda#: [id number] : 1Acct:[id number] Age/Sex: 73 / FADM Date: 02/19/24 Loc: HO.HHCX Attending Dr: Migdalia PALMER Ordering Physician: Migdalia Loza Date of Service: 02/19/24 Procedure(s): XR toe RT min 2V Accession Number(s): [id number] cc: Migdalia Loza EXAMINATION: BILATERAL TOES CLINICAL [...] in OV> 02/19/24 1234 DD/ 1122 TD/TT: Senior Engineer: SS Migdalia PALMER IMG XR PROCEDURES Edited Resul t - Final documented in this encounter Visit Diagnoses Diagnosis Benign essential hypertension Essential hypertension, benign documented in this encounter Care Teams Noise Tester Relationship Specialty Start Date End Date Rolanda Thakur MD [address] [place] [address] PCP - General Internal Medicine 09/19/22 documented as of this encounter
--- OUTSIDE RECORDS SUMMARY | 2024-09-24 13:37 | XMS_ITS | Encounter Summary ---
Author Organization [employer] Address [address] [facility] 7 [place] [address] Care Team Providers Care Utility Systems Repairer Operator Name Role Phone Rolanda Thakur MD Primary Care Provider [phone]- [phone] Reason for Referral * Consultation (Routine) - Authorized Specialty Diagnoses / Procedures Referred By Contac t Referred To Contact Podiatry Diagnoses Type 2 diabetes mellitus without complication, without long-term current use of insulin (CMS/[facility]) Diabetic polyneuropathy associated with type 2 diabetes mellitus ([facility]) Rolanda Thakur MD [address] [place] [address] Phone: tel: fax: John Roberson DPM [address] [facility] 1st Floor (Left) [place] [address] Phone: tel: fax: Referral ID Status Reason Start Date Expiration Date Visits Requested Visits Authorized [id number] Authorized Specialty Services Required 09/10/2024 09/10/2025 1 1 Encounter Details Date Type Department Care Team (Latest Contact Info) Description 09/10/2024 3:45 PM EST Office Visit [facility] CHC MED & PEDS [address] [place] [address] Rolanda Thakur MD [address] [place] [address] [phone] Type 2 diabetes mellitus without complication, without [...] already generated. 4) was evaluated to the on awake counselor: Not on statin. Will be followed up [...] blood sugar. 50 tablet 12 glucose blood ([employer] Ultra) test strip USE DIRECTED TO TEST BLOOD GLUCOSE TWICE DAILY 100 strip 11 losartan (Cozaar) 100 MG tablet TAKE 1 TABLET(100 MG) BY MOUTH IN THE MORNING 90 tablet 1 metFORMIN (Glucophage) 500 MG tablet TAKE 1 TABLET BY MOUTH TWICE DAILY WITH MEALS 180 tablet 0 Multiple Vitamin (Daily-Saadia Multivitamin) tablet TAKE 1 TABLET BY MOUTH EVERY DAY 30 tablet 11 ozvntzxm-zdnescohnw-cbjgsujcw (Neosporin) 5-400-5000 ointment Apply topically 4 times daily. 3.5 g 0 [employer] Delica Lancets 33G mis Use to check blood sugar four times daily Synthroid 125 MCG tablet TAKE 1 TABLET BY MOUTH ON MONDAY, MONDAY, AND MONDAY AND ALTERNATE [id number] MCG ON MONDAY, MONDAY, MONDAY, AND MONDAY 36 tablet 3 Synthroid 125 MCG tablet TAKE 1 TABLET BY MOUTH ON MONDAY, MONDAY, AND MONDAY AND ALTERNATE [id number] MCG ON MONDAY, MONDAY, MONDAY, AND MONDAY [...] complication, without long-term current use of insulin ([facility]) Comments: Stable Endocrinology evaluation as per patient request The referral was generated. Orders: - Referral to Podiatry; Future Diabetic polyneuropathy associated with type 2 diabetes mellitus ([facility]) Comments: No acute intervention Endocrinology eval as [...] documented as of this encounter Care Teams Utility Systems Repairer Operator Relationship Specialty Start Date End Date Rolanda Thakur MD [address] [place] [address] PCP - General Internal Medicine 09/19/22 documented as of this encounter
--- OUTSIDE RECORDS SUMMARY | 2024-09-24 13:37 | XMS_ITS | Encounter Summary ---
Author Organization [employer] Address [address] [place] [address] [place] [address] Care Team Providers Care Reserve Operator Name Role Phone Rolanda Thakur MD Primary Care Provider [phone]- [phone] Reason for Visit * Reason Onset Date Comments Referral 09/29/2022 Encounter Details Date Type Department Care Team ([facility] st Contact Info) Description 09/29/2022 Telephone [facility] CHC MED & PEDS [address] [place] [address] Rolanda Thakur MD [address] [place] [address] Referral Social History Tobacco Use Types Packs/Day [...] to fax order to Dr Dempsey on [phone] Dempsey's office on [phone]. Will forward message to provider. RN called Roxanne and gave her the phone and fax number to Dr Dempsey's office and also to f/u when EMG order is placed by PCP. * Telephone Encounter - Machelle Adam RN - 10/03/2022 10:09 AM EST Return call placed to Haylie at [facility] neuroscience, spoke with Jumana who states their office donot see pt for diabetic polyneuropathy but instead sees pt for foot drop or other issue. States Haylieis unavailable at this time but will informed her to call [facility] back if needed. Will forward message to PCP as FYI. * Telephone Encounter - Brinda Barnard - 09/29/2022 1:30 PM EST Tc from Haylie from [facility] med / rehab calling to inform they need more dx clarification for referral that was sent . and phone # [phone] documented in this encounter Plan of Treatment Not on file documented as of this encounter Visit Diagnoses Diagnosis Diabetic polyneuropathy associated with diabetes mellitus due to underlying condition (CMS/[facility])- Primary documented in this encounter Care Teams Reserve Operator Relationship Specialty Start Date End Date Rolanda Thakur MD [address] [place] [address] PCP - General Internal Medicine 09/19/22 documented as of this encounter
--- OUTSIDE RECORDS SUMMARY | 2024-09-24 13:37 | XMS_ITS | Encounter Summary ---
Author Organization [employer] Address [address] [place] [address] [place] [address] Care Team Providers Care Cigarette Making Machine Hopper Feeder Name Role Phone Rolanda Thakur MD Primary Care Provider Encounter Details Date Type Department Care Team ([facility] st Contact Info) Description 05/16/[address] [facility] CHC MED & PEDS [address] [place] [address] Rolanda Thakur MD [address] [place] [address] Bilateral leg paresthesia (Primary Dx); Anxiety; Diabetic [...] Vitamin B6 (10/10/2023 12:50 PM EST) Pathologist [facility] Vitamin B6 16.0 2.1 - 21.7 ng/mL [facility] Comment:Vitamin supplementat ion within 24 hours prior toblood draw may affect the accuracy of the results.This test was developed and its analytical performancecharacteristics have been determined by [employer] [place], [place]. It hasnot been cleared or approved by the U.S. Food and DrugAdministration. This assay has been validated pursuantto the CLIA regulations and is used for clinicalpurposes.THIS TEST WAS PERFORMED AT:[id number] [place] [address]LSEITGFTHEO PEDERSEN MD,PHD Blood Venous blood specimen / Unknown 10/10/2023 12:50 PM EST 10/10/2023 2:41 PM EST us Rolanda Thakur MD LAB BLOOD ORDERABLES Final Result [facility] [address] [place] [address] [phone] * (ABNORMAL) Vitamin B12 (10/10/2023 12:50 PM EST) Vitamin B12 1,388(H) 200 - 900 pg/mL [facility] Comment:NORMAL 200-900 PG/ML INDETERMINATE 160-199 PG/ML DEFICIENT < 160 PG/ML Blood Venous blood specimen / Unknown 10/10/2023 12:50 PM EST 10/10/2023 2:41 PM EST Rolanda Thakur MD LAB BLOOD ORDERABLES Final Result Performing Organization Address City/[facility]/ZIP Co de Phone Number [facility] [address] [place] [address] [phone] * TSH W/Reflex to FT4 (10/10/2023 12:50 PM EST) Pathologist [facility] TSH reflex Free T4 0.35 0.32 - 4.0 uIU/mL [facility] Blood 10/10/2023 12:5 0 PM EST 10/10/2023 2:41 PM EST us Rolanda Thakur MD LAB BLOOD ORDERABLES Final Result Performing Organization Address City/[facility]/ZIP Co de Phone Number [facility] [address] [place] [phone] * (ABNORMAL) CBC auto differential (10/10/2023 12:50 PM EST) White Blood Count 8.0 4.8 - 10.8 X10*3/uL [facility] Red Blood Count 4.19(L) 4.20 - 5.50 X10*6/uL [facility] Hemoglobin 12.3 12.0 - 16.0 g/dl [facility] Hematocrit 36.6(L) 37.0 - 47.0 % [facility] Mean Corpuscular Volume 87.4 80.0 - 98.0 fL [facility] Mean Corpuscular Hemoglobin 29.4 27.0 - 33.0 pg [facility] Mean Corpuscular HGB Conc 33.6 31.0 - 35.0 g/dl [facility] Red Cell Distribution Width 12.8 11.0 - 16.0 % [facility] Platelet Count 252 160 - 400 X10*3/uL [facility] Mean Platelet Volume 9.5 9.4 - 12.3 fL [facility] Neutrophils Percent Auto 55.5 45 - 73 % [facility] Imm Gran Pct Auto 0.4 0.0 - 0.4 % [facility] Lymphocytes Percent Auto 31.3 20 - 40 % [facility] Monocytes Percent Auto 6.0 2 - 11 % [facility] Eosinophils Percent Auto 5.9(H) 0 - 4 % [facility] Basophils Percent Auto 0.9 0 - 2 % [facility] NRBC Pct Auto 0.0 0.0 - 0.2 /100WBC [facility] Neutrophils Absolute Auto 4.5 2.0 - 8.3 x10*3/uL [facility] Imm Gran Abs Auto 0.03 0.00 - 0.03 X10*3/uL [facility] Lymphocytes Absolute Auto 2.5 1.2 - 4.9 X10*3/uL [facility] Monocytes Absolute Auto 0.5 0.1 - 1.2 X10*3/uL [facility] Eosinophils Absolute Auto 0.5(H) 0.0 - 0.4 X10*3/uL [facility] Basophils Absolute Auto 0.1 0.0 - 0.2 X10*3/uL [facility] NRBC Abs Auto 0.000 0.0 - 0.012 X10*3/uL [facility] Blood Venous blood specimen / Unknown 10/10/2023 12:50 PM EST 10/10/2023 2:41 PM EST us Rolanda Thakur MD LAB BLOOD ORDERABLES Final Result [facility] [address] [place] [address] [phone] documented in this encounter Visit Diagnoses Diagnosis Bilateral leg paresthesia- Primary Disturbance of skin sensation Anxiety Anxiety state, unspecified Diabetic polyneuropathy associated with type 2 diabetes mellitus ([facility]) documented in this encounter Care Teams Cigarette Making Machine Hopper Feeder Relationship Specialty Start Date End Date Rolanda Thakur MD [address] [place] [address] PCP - General Internal Medicine 09/19/22 documented as of this encounter
--- OUTSIDE RECORDS SUMMARY | 2024-09-24 13:37 | XMS_ITS | Encounter Summary ---
Author Organization [employer] Address [address] [place] [address] [place] [address] Care Team Providers Care Senior Client Advisor Name Role Phone Rolanda Thakur MD Primary Care Provider [phone]- [phone] Reason for Visit * Reason Comments Med Refill Encounter Details Date Type Department Care Team (Late st Contact Info) Description 05/20/2024 Refill [facility] CHC MED & PEDS [address] [place], [place] [phone] Rolanda Thakur MD [address] [place] [address] Diabetic polyneuropathy associated with type 2 diabetes mellitus ([facility]) Social History Tobacco Use Types [...] documented as of this encounter Care Teams Senior Client Advisor Relationship Specialty Start Date End Date Rolanda Thakur MD [address] [place] [phone] PCP - General Internal Medicine 09/19/22 documented as of this encounter
--- OUTSIDE RECORDS SUMMARY | 2024-09-24 13:37 | XMS_ITS | Encounter Summary ---
Author Organization [employer] Address [address] [place] [address] Care Team Providers Care Environmental Epidemiologist Name Role Phone Rolanda Thakur MD Primary Care Provider [phone]- [phone] Reason for Referral * Consultation (Routine) - Closed Specialty Diagnoses / Procedures Referred By Contac t Referred To Contact Behavioral Health Diagnoses Anxiety Rolanda Thakur MD [address] [place] [address] Phone: tel: fax: Referral ID Status Reason Start Date Expiration Date V isits Requested Visits Authorized [id number] Closed Specialty Services Required 05/02/2024 05/02/2025 1 1 Encounter Details Date Type Department Care Team ([facility] Contact Info) Description 05/02/2024 Orders Only [facility] CHC MED & PEDS [address] [place] [address] Rolanda Thakur MD [address] [place] [address] Anxiety (Primary Dx) Social History Tobacco Use [...] unspecified documented in this encounter Care Teams Environmental Epidemiologist Relationship Specialty Start Date End Date Rolanda Thaukr MD [address] [place] [address] PCP - General Internal Medicine 09/19/22 documented as of this encounter
--- OUTSIDE RECORDS SUMMARY | 2024-09-24 13:37 | XMS_ITS | Clinical Summary ---
Author Organization [facility] Address [address] [place], [place] [id number] Care Team Providers Care Sand And Gravel Plant Operator Name Role Phone Rahel Hough MD Primary Care Provider [phone] Allergies Active Allergy Reactions Criticality Noted Date [...] mg by mouth daily. 0 09/09/2020 Active York-3 Fatty Acids (FISH OIL) 1000 MG CAPS [...] age to complete this topic Care Teams Sand And Gravel Plant Operator Relationship Specialty Start Date End Date Rahel Hough MD [address] [facility] [place] [address] PCP - General Internal Medicine 11/20/20
--- OUTSIDE RECORDS SUMMARY | 2024-09-24 13:37 | XMS_ITS | Encounter Summary ---
Author Organization [employer] Address [address] [place] [address] [place] [address] Care Team Providers Care Trust And Estates Paralegal Name Role Phone Rolanda Thakur MD Primary Care Provider [phone] Encounter Details Date Type Department Care Team ([facility] st Contact Info) Description 05/01/2023 Orders Only [facility] MED & PEDS [address] [place] [address] Rolanda Thakur MD [address] [place] [address] Diabetic polyneuropathy associated with type 2 diabetes [...] polyneuropathy associated with type 2 diabetes mellitus ([facility]/HCC) TSH W/REFLEX TO FT4 Routine 05/08/2023 1 1:04 AM EDT Diabetic polyneuropathy associated with type 2 diabetes mellitus ([facility]/HCC) CBC WITH AUTO DIFFERENTIAL Routine 05/08/2023 11:04 AM EDT Diabetic polyneuropathy associated with type 2 diabetes mellitus ([facility]/HCC) HEMOGLOBIN A1C Routine 05/08/2023 11:04 AM EDT Diabetic polyneuropathy associated with type 2 diabetes mellitus ([facility]/HCC) HEPATIC FUNCTION PANEL Routine 05/08/2023 11:04 AM EDT Diabetic polyneuropathy associated with type 2 diabetes mellitus ([facility]/HCC) LIPID PANEL, STANDARD Routine 05/08/2023 11:04 AM EDT Diabetic polyneuropathy associated with type 2 diabetes mellitus ([facility]/HCC) BASIC METABOLIC PANEL Routine 05/08/2023 11:04 AM EDT Diabetic polyneuropathy associated with type 2 diabetes mellitus ([facility]/HCC) documented in this encounter Results * (ABNORMAL) Hemoglobin A1c (05/08/2023 11:04 AM EDT) Hemoglobin A1c 6.1(H) <6.0 % [facility] Comment:Hemoglobin A1C Refer ence Range Adults: 4.8 - 6.0 % Non diabetic: < 6.0 % Goal: < 7.0 %Additional Action Suggested: > 8.0 %Note: Hemoglobin A1c results are invalid for patients with abnormal amounts of HbF. Blood transfusions may impact the HbA1c concentration in the patient sample. Estimated Average Glucose 128 mg/dL [facility] Comment:eAG = Estimated ave rage glucose which is %A1C expressed asaverage glucose, using the formula of the I0R-AsszsedPnnsgjp Glucose study (ADAG), Diabetes Care, Vol.31,#8,Mar. 2007 Blood Venous blood specimen / Unknown 05/08/2023 11:04 AM EDT 05/08/2023 1:46 PM EDT us Rolanda Thakur MD LAB BLOOD ORDERABLES Final Result Performing Organization Address City/[facility]/ZIP Co de Phone Number [facility] [address] [place] [phone] * Vitamin D, 25-Hydroxy, Total, Immunoassay (05/08/2023 11:04 AM EDT) Vitamin D 25-OH Total 84.6 >30 ng/mL [facility] Comment:Health Based Referen ce Values*< 20 ng/mL Pweiugjwx71-42 ng/mL Insufficient> 30 ng/mL Sufficient*Arabella MCALLISTER. N [...] BLOOD ORDERABLES Final Result Performing Organization Address [facility] Co de Phone Number [facility] [address] [place] [phone] * Hepatic Function Panel (05/08/2023 11:04 AM EDT) Bilirubin, Total 0.5 0.0 - 1.0 mg/dL [facility] Bilirubin, Direct 0.2 0.0 - 0.5 mg/dL [facility] Aspartate Amino Transferase 22 5 - 31 U/L [facility] Alanine Aminotransferase 18 0 - 31 U/L [facility] Total Protein 7.1 6.5 - 8.0 g/dL [facility] Albumin Level 4.4 3.5 - 5.0 g/dL [facility] Alkaline Phosphatase 70 39 - 117 U/L [facility] Blood Venous blood specimen / Unknown 05/08/2023 11:04 AM EDT 05/08/2023 1:47 PM EDT us Rolanda Thakur MD LAB BLOOD ORDERABLES Final Result [facility] [address] [place] [address] [phone] * (ABNORMAL) Lipid Panel, Standard (05/08/2023 11:04 AM EDT) Triglycerides 110 <150 mg/dL [facility] Comment:Desirable Triglyceri de: less than 150 mg/dLBorderline High Triglyceride 150-199 mg/dLHigh Triglyceride: 200-499 mg/dLVery High Triglyceride: greater than or equal to 5OO mg/dL Cholesterol 198 <200 mg/dL [facility] Comment:Desirable Cholestero l: less than 200 mg/dLBorderline High Cholesterol: 200-239 mg/dLHigh Cholesterol: greater than 239 mg/dL LDL Cholesterol Calculated 121(H) <100 mg/dL [facility] Comment:Desirable LDL: less than 100 mg/dLNear Optimal/Above Optimal LDL: 110- 129 mg/dLBorderline High LDL: 130-159 mg/dLHigh LDL: 160-189 mg/dLVery High LDL: greater than or equal to 190 mg/dL HDL Cholesterol 55 >40 mg/dL [facility] Comment:Desirable HDL: great er than 40 mg/dL Note: This HDL assay may give artificially low results in patients with liver disease. Blood Venous blood specimen / Unknown 05/08/2023 11:04 AM EDT 05/08/2023 1:47 PM EDT us Rolanda Thakur MD LAB BLOOD ORDERABLES Final Result Performing Organization Address [facility]/ZIP Co de Phone Number [facility] [address] [place] [phone] * TSH W/Reflex to FT4 (05/08/2023 11:04 AM EDT) TSH reflex Free T4 0.53 0.32 - 4.0 uIU/mL [facility] Blood 05/08/2023 11:0 4 AM EDT 05/08/2023 1:47 PM EDT us Rolanda Thakur MD LAB BLOOD ORDERABLES Final Result Performing Organization Address [facility]/ZIP Co de Phone Number [facility] [address] [place] [phone] * (ABNORMAL) Basic Metabolic Panel (05/08/2023 11:04 AM EDT) Sodium 137 135 - 145 mmol/L [facility] Potassium 4.4 3.3 - 5.1 mmol/L [facility] Chloride 108 96 - 108 mmol/L [facility] Carbon Dioxide 24 22 - 29 mmol/L [facility] Anion Gap 9(L) 12 - 20 [facility] Urea Nitrogen (BUN) 14 9 - 16 mg/dL [facility] Creatinine, Serum 1.03 0.5 - 1.4 mg/dL [facility] Estimated Glomerular Filt Rate 53 [facility] Comment:NOTE: For -Am erican individuals, multiply the result by 1.210.Chronic Kidney Disease: Estimated GFR < 60 mL/min/1.87c4Vcskbq Kidney Disease: Estimated GFR < 15 mL/min/1.73m2 Glucose 208(H) 60 - 115 mg/dL [facility] Calcium 10.1 8.4 - 10.2 mg/dL [facility] Blood Venous blood specimen / Unknown 05/08/2023 11:04 AM EDT 05/08/2023 1:47 PM EDT us Rolanda Thakur MD LAB BLOOD ORDERABLES Final Result [facility] [address] [place] [phone] [phone] * (ABNORMAL) CBC auto differential (05/08/2023 11:04 AM EDT) White Blood Count 8.6 4.8 - 10.8 X10*3/uL [facility] Red Blood Count 4.27 4.20 - 5.50 X10*6/uL [facility] Hemoglobin 12.6 12.0 - 16.0 g/dl [facility] Hematocrit 37.9 37.0 - 47.0 % [facility] Mean Corpuscular Volume 88.8 80.0 - 98.0 fL [facility] Mean Corpuscular Hemoglobin 29.5 27.0 - 33.0 pg [facility] Mean Corpuscular HGB Conc 33.2 31.0 - 35.0 g/dl [facility] Red Cell Distribution Width 13.0 11.0 - 16.0 % [facility] Platelet Count 266 160 - 400 X10*3/uL [facility] Mean Platelet Volume 9.5 9.4 - 12.3 fL [facility] Neutrophils Percent Auto 50.3 45 - 73 % [facility] Imm Gran Pct Auto 0.3 0.0 - 0.4 % [facility] Lymphocytes Percent Auto 33.4 20 - 40 % [facility] Monocytes Percent Auto 7.0 2 - 11 % [facility] Eosinophils Percent Auto 7.8(H) 0 - 4 % [facility] Basophils Percent Auto 1.2 0 - 2 % [facility] NRBC Pct Auto 0.0 0.0 - 0.2 /100WBC [facility] Neutrophils Absolute Auto 4.3 2.0 - 8.3 x10*3/uL [facility] Imm Gran Abs Auto 0.03 0.00 - 0.03 X10*3/uL [facility] Lymphocytes Absolute Auto 2.9 1.2 - 4.9 X10*3/uL [facility] Monocytes Absolute Auto 0.6 0.1 - 1.2 X10*3/uL [facility] Eosinophils Absolute Auto 0.7(H) 0.0 - 0.4 X10*3/uL [facility] Basophils Absolute Auto 0.1 0.0 - 0.2 X10*3/uL [facility] NRBC Abs Auto 0.000 0.0 - 0.012 X10*3/uL [facility] Blood Venous blood specimen / Unknown 05/08/2023 11:04 AM EDT 05/08/2023 1:46 PM EDT Rolanda Thakur MD LAB BLOOD ORDERABLES Final Result [facility] [address] [place] [phone] [phone] documented in this encounter Visit Diagnoses Diagnosis Diabetic polyneuropathy associated with type 2 diabetes mellitus (CMS/HCC)- Primary documented in this encounter Care Teams Trust And Estates Paralegal Relationship Specialty Start Date End Date Rolanda Thakur MD [address] [place] [address] PCP - General Internal Medicine 09/19/22 documented as of this encounter
--- OUTSIDE RECORDS SUMMARY | 2024-09-24 13:37 | XMS_ITS | Encounter Summary ---
Author Organization [employer] Address [address] [place] [address] 7 [place] [address] Care Team Providers Care Key Bed Installer Name Role Phone Rolanda Thakur MD Primary Care Provider [phone]- [phone] Encounter Details Date Type Department Care Team (Late st Contact Info) Description 04/08/2024 Orders Only [facility] [address] [place], [place] [phone] Rolanda Thakur MD [address] [place] [address] UTI symptoms (Primary Dx) Social History Tobacco [...] Primary documented in this encounter Care Teams Key Bed Installer Relationship Specialty Start Date End Date Rolanda Thakur MD [address] [place] [address] PCP - General Internal Medicine 09/19/22 documented as of this encounter
--- OUTSIDE RECORDS SUMMARY | 2024-09-24 13:37 | XMS_ITS | Encounter Summary ---
Author Organization [employer] Address [address] [place] [address] Care Team Providers Care Objects Conservator Name Role Phone Rolanda Thakur MD Primary Care Provider +1- [phone] Reason for Visit * Reason Onset Date Comments Call Back Request 11/17/2023 Encounter Details Date Type Department Care Team ([facility] st Contact Info) Description 11/17/2023 Telephone [facility] [address] [place] [address] Rolanda Thakur MD [address] [place] [address] Call Back Request Social History Tobacco Use [...] Message sent to PCP for review through [employer] portal * Telephone Encounter - Jenny Neff - 11/17/2023 8:06 AM EDT Tc from pt requesting a call back pt stated needs more information and clarifications 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 Please contact pt. documented in this encounter Plan of Treatment Not on file documented as of this encounter Visit Diagnoses Not on filedocumented in this encounter Care Teams Objects Conservator Relationship Specialty Start Date End Date Rolanda Thakur MD [address] [place] [address] PCP - General Internal Medicine 09/19/22 documented as of this encounter
--- OUTSIDE RECORDS SUMMARY | 2024-09-24 13:37 | XMS_ITS | Encounter Summary ---
Author Organization [employer] Address [address] [place] [address] Care Team Providers Care Reimbursement Representative Name Role Phone Rolanda Thakur MD Primary Care Provider [phone]- [phone] Reason for Visit * Reason Onset Date Comments EKG 06/18/2024 Encounter Details Date Type Department Care Team ([facility] st Contact Info) Description 06/18/2024 Telephone [facility] CHC MED & PEDS [address] [place] [address] Rolanda Thakur MD [address] [place] [address] EKG Social History Tobacco Use Types Packs/Day [...] Given pt's symptoms, she would need a [facility] appointment to get the notes for our design specialist to process the referral. * Telephone [...] should seek a neurology referral. She states public safety director advised her to get a referral due to procedure done for cataracts might have struck a nerve and that might be were the headaches are coming from. * Telephone Encounter - Annabella Peña - 06/18/2024 4:03 PM EDT Tc from pt requesting status on order for EKG. Contact Paulette at [phone] documented in this encounter Plan of Treatment Not on file documented as of this encounter Visit Diagnoses Not on filedocumented in this encounter Additional Health Concerns Assessment Noted Time PHQ-9 Depression Total Score: 2 05/13/20 24 9:24 AM EDT documented as of this encounter Care Teams Reimbursement Representative Relationship Specialty Start Date End Date Rolanda Thakur MD [address] [place] [address] PCP - General Internal Medicine 09/19/22 documented as of this encounter
--- OUTSIDE RECORDS SUMMARY | 2024-09-24 13:37 | XMS_ITS | Encounter Summary ---
Author Organization [employer] Address [address] [place] [address] Care Team Providers Care Pals Nurse Name Role Phone Rolanda Thakur MD Primary Care Provider +1- [phone] Reason for Visit * Reason Onset Date Comments Created In Error 04/29/2024 Encounter Details Date Type Department Care Team (Late st Contact Info) Description 04/29/2024 Telephone [facility] [address] [place], [place] [phone] Rolanda Thakur MD [address] [place], [place] [phone] Created In Error Social History Tobacco Use [...] on filedocumented in this encounter Care Teams Pals Nurse Relationship Specialty Start Date End Date Rolanda Thakur MD [address] [place] [address] PCP - General Internal Medicine 09/19/22 documented as of this encounter
--- OUTSIDE RECORDS SUMMARY | 2024-09-24 13:37 | XMS_ITS | Encounter Summary ---
Author Organization [employer] Address [address] [place] [address] [place] [address] Care Team Providers Care Box Toe Stitcher Name Role Phone Rolanda Thakur MD Primary Care Provider [phone]- [phone] Encounter Details Date Type Department Care Team ([facility] st Contact Info) Description 03/28/2024 Orders Only [facility] CHC MED & PEDS [address] [place], [place] [phone] Karen Alcantar MD [address] [place] [address] Social History Tobacco Use Types Packs/Day Years [...] on filedocumented in this encounter Care Teams Box Toe Stitcher Relationship Specialty Start Date End Date Rolanda Thakur MD [address] [place] [address] PCP - General Internal Medicine 09/19/22 documented as of this encounter
--- OUTSIDE RECORDS SUMMARY | 2024-09-24 13:37 | XMS_ITS | Encounter Summary ---
Author Organization [employer] Address [address] [place] [address] [place] [address] Care Team Providers Care Ax Survey Worker Name Role Phone Rolanda Thakur MD Primary Care Provider +1- [phone] Encounter Details Date Type Department Care Team ([facility] st Contact Info) Description 05/22/2024 Orders Only [facility] CH[facility] MED & PEDS [address] [place] [address] Rolanda Thakur MD [address] [place] [address] Social History Tobacco Use Types Packs/Day Years [...] documented as of this encounter Care Teams Ax Survey Worker Relationship Specialty Start Date End Date Rolanda Thakur MD [address] [place] [address] PCP - General Internal Medicine 09/19/22 documented as of this encounter
--- OUTSIDE RECORDS SUMMARY | 2024-09-24 13:37 | XMS_ITS | Encounter Summary ---
Author Organization [employer] Address [address] [place] [address] 7 [place] [address] Care Team Providers Care Director Of Sustainability Programs Name Role Phone Rolanda Thakur MD Primary Care Provider [phone] Encounter Details Date Type Department Care Team (Late st Contact Info) Description 06/21/2023 Abstract [facility]INE [address] [place] [address] Sherrie Caballero Social History Tobacco Use Types [...] filedocumented in this encounter Care Teams Director Of Sustainability Programs Relationship Specialty Start Date End Date Rolanda Thakur MD [address] [place] [address] PCP - General Internal Medicine 09/19/22 documented as of this encounter
--- OUTSIDE RECORDS SUMMARY | 2024-09-24 13:37 | XMS_ITS | Encounter Summary ---
Author Organization [facility] [place] [address] Care Team Providers Care Back Shoe Worker Name Role Phone Rolanda Thakur MD Primary Care Provider [phone] [phone] Reason for Visit * Reason Onset Date Comments Hypertension 09/12/2024 Encounter Details Date Type Department Care Team ([facility] st Contact Info) Description 09/12/2024 Telephone [facility] [address] [phone] Nikki Rawls MD [address] [place] [address] Hypertension Social History Tobacco Use Types Packs/Day [...] to you. She can be reached at [phone]. * Betty Fernandez RN - 09/16/2024 10:12 [...] sinus infection. Please call her back at [phone]. documented in this encounter Plan of Treatment Not on file documented as of this encounter Visit Diagnoses Not on filedocumented in this encounter Care Teams Back Shoe Worker Relationship Specialty Start Date End Date Rolanda Thakur MD [address] [place] [address] PCP - General 11/03/23 documented as of this encounter
--- OUTSIDE RECORDS SUMMARY | 2024-09-24 13:37 | XMS_ITS | Encounter Summary ---
Author Organization [employer] Address [address] [place] [address] [place] [address] Care Team Providers Care Birth Certificate Clerk Name Role Phone Rolanda Thakur MD Primary Care Provider [phone]- [phone] Reason for Visit * Reason Onset Date Comments Referral 07/31/2024 Encounter Details Date Type Department Care Team ([facility] Contact Info) Description 07/31/2024 Telephone [facility] CH[facility] MED & PEDS [address] [place] [address] Rolanda Thakur MD [address] [place] [address] Referral Social History Tobacco Use Types Packs/Day [...] Hirsch. Referaal was [facility] documented in this encounter Plan of Treatment Not on file documented as of this encounter Visit Diagnoses Not on filedocumented in this encounter Additional Health Concerns Assessment Noted Time PHQ-9 Depression Total Score: 2 05/13/20 24 9:24 AM EDT documented as of this encounter Care Teams Birth Certificate Clerk Relationship Specialty Start Date End Date Rolanda Thakur MD [address] [place] [address] PCP - General Internal Medicine 09/19/22 documented as of this encounter
--- OUTSIDE RECORDS SUMMARY | 2024-09-24 13:37 | XMS_ITS | Encounter Summary ---
Author Organization [employer] [place] [address] Care Team Providers Care Button Breaker Operator Name Role Phone Rolanda Thakur MD Primary Care Provider [phone] [phone] Encounter Details Date Type Department Care Team (Latest Contact Info) Description 09/07/2024 9:45 AM EST - 09/07/2024 11:59 PM EST Hospital Encounter [facility] Xray [address] [place] [phone] Pain Discharge Disposition: Home or Self Care [...] Signed Date: 09/09/2024 07:17 ET Workstation ID: [id number] Transcribed By: Self Edit Transcribed Date: 09/09/2024 [...] Signed Date: 09/09/2024 07:17 ET Workstation ID: [id number] Transcribed By: Self Edit Transcribed Date: 09/09/2024 07:11 ET Jamel Gilbert DC IMG XR PROCEDURES documented in this encounter Visit Diagnoses Diagnosis Pain Generalized pain documented in this encounter Care Teams Button Breaker Operator Relationship Specialty Start Date End Date Rolanda Thakur MD [address] [place] [address] PCP - General 11/03/23 documented as of this encounter
--- OUTSIDE RECORDS SUMMARY | 2024-09-24 13:37 | XMS_ITS | Encounter Summary ---
Author Organization [employer] Address [address] [place] [address] [place] [address] Care Team Providers Care Still Cleaner Tube Name Role Phone Rolanda Thakur MD Primary Care Provider +1- [phone] Reason for Visit * Reason Onset Date Comments Referral 05/18/2023 Encounter Details Date Type Department Care Team ([facility] st Contact Info) Description 05/18/2023 Telephone [facility] MED & PEDS [address] [place] [address] Rolanda Thakur MD [address] [place] [address] Referral Social History Tobacco Use Types Packs/Day [...] used to see Dr. Chad Dempsey from [facility] butnow the office doesn't take her [...] advise. Also sent you her response from [facility]. Thanks. * Telephone Encounter - Annabella Peña [...] to Specialty: (EMG) Dr nolasco Date&Time: N/a Leather Belt Loop Cutter: n/a Please call pt to clarify documented in this encounter Plan of Treatment Not on file documented as of this encounter Visit Diagnoses Not on filedocumented in this encounter Care Teams Still Cleaner Tube Relationship Specialty Start Date End Date Rolanda Thakur MD [address] [place] [address] PCP - General Internal Medicine 09/19/22 documented as of this encounter
--- OUTSIDE RECORDS SUMMARY | 2024-09-24 13:37 | XMS_ITS | Encounter Summary ---
Author Organization [employer] Address [address] [facility] 7 [place] [address] Care Team Providers Care Full Time Name Role Phone Rolanda Thakur MD Primary Care Provider +1- [phone] Reason for Visit * Reason Onset Date Comments Nurse Triage 04/04/2024 Encounter Details Date Type Department Care Team (Late st Contact Info) Description 04/04/2024 Telephone [facility] [address] [place] [address] Rolanda Thakur MD [address] [place] [address] Nurse Triage Social History Tobacco Use Types [...] pt. She states that she went to [facility] for Anxiety panic attacks on 03/30/24- [...] got treated horribly by the staff at [facility] and she will never go there again. [...] care coordinators so that they can get [facility] notes from 03/30/24 Ed visit into pt. Chart and any labs, EKG's etc.. into pt. Chart for visit on 04/05/24 at 315pm. Protocol Used: Anxiety and Panic Attack (Adult) Protocol-Based Disposition: Go to ED/[facility] Now (or to Office with PCP Approval)- [...] on filedocumented in this encounter Care Teams Full Time Relationship Specialty Start Date End Date Rolanda Thakur MD [address] [place] [address] PCP - General Internal Medicine 09/19/22 documented as of this encounter
--- OUTSIDE RECORDS SUMMARY | 2024-09-24 13:37 | XMS_ITS | Encounter Summary ---
Author Organization [employer] Address [address] [place] [address] [place] [address] Care Team Providers Care Director Of Market Research Name Role Phone Rolanda Thakur MD Primary Care Provider +1- [phone] Reason for Visit * Reason Onset Date Comments Medication Question 12/09/2022 Encounter Details Date Type Department Care Team ([facility] st Contact Info) Description 12/09/2022 Telephone [facility] MED & PEDS [address] [place] [address] Rolanda Thakur MD [address] [place] [address] Medication Question Social History Tobacco Use Types [...] - 12/09/2022 3:51 PM EDT Tc from [facility] requesting a clarification in new script for Synthroid 50 MCG tablet if dosage was sent incorrectly because in last script (levothyroxine (Synthroid) 150 MCG tablet) it frs123 MCG and New script is it 50 mcg so pharmacy is requesting some clarification Please contact Pharmacy at [phone] documented in this encounter Plan of Treatment Not on file documented as of this encounter Visit Diagnoses Not on filedocumented in this encounter Care Teams Director Of Market Research Relationship Specialty Start Date End Date Rolanda Thakur MD [address] [place] [address] PCP - General Internal Medicine 09/19/22 documented as of this encounter
--- OUTSIDE RECORDS SUMMARY | 2024-09-24 13:37 | XMS_ITS | Encounter Summary ---
Author Organization [employer] Address [address] [place] [address] Care Team Providers Care Analyst Microbiology Lab Name Role Phone Rolanda Thakur MD Primary Care Provider +1- [phone] Reason for Visit * Reason Onset Date Comments Medication Question 04/04/2024 Encounter Details Date Type Department Care Team (Late st Contact Info) Description 04/04/2024 Telephone [facility] MEDICINE 230 [place] [address] Rolanda Thakur MD 505 [place], [place] [phone] Medication Question Social History Tobacco Use Types [...] on filedocumented in this encounter Care Teams Analyst Microbiology Lab Relationship Specialty Start Date End Date Rolanda Thakur MD [address] [place] [address] PCP - General Internal Medicine 09/19/22 documented as of this encounter
--- OUTSIDE RECORDS SUMMARY | 2024-09-24 13:37 | XMS_ITS | Encounter Summary ---
Author Organization [employer] Address [address] [place] [address] [place] [address] Care Team Providers Care Engine Repair Supervisor Name Role Phone Rolanda Thakur MD Primary Care Provider +1- [phone] Reason for Referral * Imaging (Routine) - Closed Specialty Diagnoses / Procedures Referred By Contac t Referred To Contact Radiology Diagnoses Hyponatremia Decreased GFR Procedures US RENAL BI Rolanda Thakur MD 505 [place] [address] Phone: tel: fax: [address] Phone: tel: fax: Referral ID Status Reason Start Date Expiration Date Visits Re quested Visits Authorized [id number] Closed 07/18/2024 07/18/2025 1 0 Encounter Details Date Type Department Care Team (Late st Contact Info) Description 07/09/2024 Orders Only [facility] MED & PEDS 505 [place], [place] [phone] Rolanda Thakur MD 505 [place] [address] Hyponatremia (Primary Dx); Decreased GFR Social History [...] as of this encounter Care Teams Engine Repair Supervisor Relationship Specialty Start Date End Date Rolanda Thakur MD [address] [place] [address] PCP - General Internal Medicine 09/19/22 documented as of this encounter
--- OUTSIDE RECORDS SUMMARY | 2024-09-24 13:37 | XMS_ITS | Encounter Summary ---
Author Organization [employer] Address [address] [place] [address] Care Team Providers Care Flight Manager Name Role Phone Rolanda Thakur MD Primary Care Provider +1- [phone] Reason for Visit * Reason Onset Date Comments Med Refill 04/04/2024 Encounter Details Date Type Department Care Team (Late st Contact Info) Description 04/04/2024 Telephone [facility] MEDICINE 230 [place] [address] Rolanda Thakur MD 505 [place] [address] Med Refill Social History Tobacco Use Types [...] 5 mg tablets To be sent to: [facility] documented in this encounter Plan of Treatment Not on file documented as of this encounter Visit Diagnoses Diagnosis Anxiety- Primary Anxiety state, unspecified documented in this encounter Care Teams Flight Manager Relationship Specialty Start Date End Date Rolanda Thakur MD 505 [place] [address] PCP - General Internal Medicine 09/19/22 documented as of this encounter
--- OUTSIDE RECORDS SUMMARY | 2024-09-24 13:37 | XMS_ITS | Encounter Summary ---
Author Organization [employer] Address [address] [place] [address] Care Team Providers Care Parcel Carrier Name Role Phone Rolanda Thakur MD Primary Care Provider +1- [phone] Reason for Visit * Reason Onset Date Comments Referral 06/24/2024 Encounter Details Date Type Department Care Team ([facility] st Contact Info) Description 06/24/2024 Telephone [facility] MEDICINE 230 [place] [address] Rolanda Thakur MD 505 [place], [place] [phone] Referral Social History Tobacco Use Types Packs/Day [...] to keep upcoming appt. Please contact at [phone] documented in this encounter Plan of Treatment Not on file documented as of this encounter Visit Diagnoses Not on filedocumented in this encounter Additional Health Concerns Assessment Noted Time PHQ-9 Depression Total Score: 2 05/13/20 24 9:24 AM EDT documented as of this encounter Care Teams Parcel Carrier Relationship Specialty Start Date End Date Rolanda Thakur MD [address] [place] [address] PCP - General Internal Medicine 09/19/22 documented as of this encounter
--- OUTSIDE RECORDS SUMMARY | 2024-09-24 13:37 | XMS_ITS | Encounter Summary ---
Author Organization [employer] Address 75 [facility] 7 [place] [address] Care Team Providers Care Continuous Pickling Line Pickler Name Role Phone Rolanda Thakur MD Primary Care Provider +1- [phone] Reason for Visit * Reason Onset Date Comments Results 03/29/2024 Encounter Details Date Type Department Care Team ([facility] st Contact Info) Description 03/29/2024 Telephone [facility] MEDICINE 230 [place] [address] Rolanda Thakur MD 505 [place], [place] [phone] Results Social History Tobacco Use Types Packs/Day [...] on filedocumented in this encounter Care Teams Continuous Pickling Line Pickler Relationship Specialty Start Date End Date Rolanda Thakur MD [address] [place] [address] PCP - General Internal Medicine 09/19/22 documented as of this encounter
--- OUTSIDE RECORDS SUMMARY | 2024-09-24 13:37 | XMS_ITS | Encounter Summary ---
Author Organization [employer] Address 75 [facility] 7 [place] [address] Care Team Providers Care Management Lecturer Name Role Phone Rolanda Thakur MD Primary Care Provider +1- [phone] Reason for Visit * Reason Onset Date Comments Nurse Triage 08/05/2024 Encounter Details Date Type Department Care Team ([facility] st Contact Info) Description 08/05/2024 Telephone [facility] MEDICINE 230 [place] [address] Rolanda Thakur MD 505 [place] [address] Nurse Triage Social History Tobacco Use Types [...] 1145am. Pt is advised to come to [facility] today which is open till 8pm and also open 830am -800pm tomorrow. Pt agrees with this disposition. Pt will try to come to [facility] todaybut, if unable will come tomorrow. [...] documented as of this encounter Care Teams Management Lecturer Relationship Specialty Start Date End Date Rolanda Thakur MD [address] [place] [address] PCP - General Internal Medicine 09/19/22 documented as of this encounter
--- OUTSIDE RECORDS SUMMARY | 2024-09-24 13:37 | XMS_ITS | Encounter Summary ---
Author Organization [employer] Address [address] [place] [address] [place] [address] Care Team Providers Care Pen Tester Name Role Phone Rolanda Thakur MD Primary Care Provider +1- [phone] Reason for Visit * Reason Onset Date Comments Medication Question 12/08/2022 Encounter Details Date Type Department Care Team ([facility] st Contact Info) Description 12/08/2022 Telephone [facility] MED & PEDS 505 [place] [address] Rolanda Thakur MD 505 [place] [address] Medication Question Social History Tobacco Use Types [...] on filedocumented in this encounter Care Teams Pen Tester Relationship Specialty Start Date End Date Rolanda Thakur MD [address] [place] [address] PCP - General Internal Medicine 09/19/22 documented as of this encounter
--- OUTSIDE RECORDS SUMMARY | 2024-09-24 13:38 | XMS_ITS | Encounter Summary ---
Author Organization [employer] Address [address] [place] [address] Care Team Providers Care Ocean Freight Forwarder Name Role Phone Rolanda Thakur MD Primary Care Provider +1- [phone] Reason for Visit * Reason Onset Date Comments Nurse Triage 01/03/2024 Encounter Details Date Type Department Care Team (Late st Contact Info) Description 01/03/2024 Telephone [facility] MEDICINE 230 [place] [address] Rolanda Thakur MD 505 [place] [address] Nurse Triage Social History Tobacco Use Types [...] on filedocumented in this encounter Care Teams Ocean Freight Forwarder Relationship Specialty Start Date End Date Rolanda Thakur MD [address] [place] [address] PCP - General Internal Medicine 09/19/22 documented as of this encounter
--- OUTSIDE RECORDS SUMMARY | 2024-09-24 13:38 | XMS_ITS | Clinical Summary ---
Author Organization [facility] Address [address] [place] [address] Care Team Providers Care Audio Visual Project Manager Name Role Phone Maren Hough MD Primary Care Provider [phone] Social History Tobacco Use Types Packs/Day Years [...] patient's age to complete this topic Insurance [employer] Care Teams Audio Visual Project Manager Relationship Specialty Start Date End Date Maren Hough MD [address] [place] [address] PCP - General Family Medicine 06/20/22
--- OUTSIDE RECORDS SUMMARY | 2024-09-24 13:38 | XMS_ITS | Encounter Summary ---
Author Organization [employer] Address [address] [place] [address] Care Team Providers Care Speeder Machine Operator Name Role Phone Rolanda Thakur MD Primary Care Provider +1- [phone] Reason for Visit * Reason Onset Date Comments Nurse Triage 12/12/2023 Encounter Details Date Type Department Care Team (Late st Contact Info) Description 12/12/2023 Telephone [facility] MEDICINE 230 [place] [address] Rolanda Thakur MD 505 [place] [address] Nurse Triage Social History Tobacco Use Types [...] from pt requesting to speak to PCP religious educatormotel manager in regards to scheduled sick visit tmr, states was advised to contact PCP before scheduled appt to see how pt is doing, pt stated they still has a severe cough. Rehabilitation Team Lead did advised appt is still expected. Pt is scheduled tmr 12/15/23 for ( chest congestion, cough , yellow nasal drainage. ) Please contact at [phone] * Telephone Encounter - Viktoria Schultz RN [...] point. Pt is advised to come to [facility] today to be seen since open till 8pm. PT is not sure if will be able to do that. Rehabilitation Team Lead contacted Haylie Barrientos [facility] and asked if would be possible to schedule Pt at [facility] 12/15/23 340pm apt which Pt would be [...] on filedocumented in this encounter Care Teams Speeder Machine Operator Relationship Specialty Start Date End Date Rolanda Thakur MD [address] [place] [address] PCP - General Internal Medicine 09/19/22 documented as of this encounter
--- OUTSIDE RECORDS SUMMARY | 2024-09-24 13:38 | XMS_ITS | Encounter Summary ---
Author Organization [employer] Address [address] [place] [address] [place] [address] Care Team Providers Care Exercise Instructor Name Role Phone Rolanda Thakur MD Primary Care Provider +1- [phone] Reason for Visit * Reason Comments Med Refill Encounter Details Date Type Department Care Team ([facility] st Contact Info) Description 09/15/2024 Refill [facility] MED & PEDS 505 [place], [place] [phone] Rolanda Thakur MD 505 [place] [address] Social History Tobacco Use Types Packs/Day Years [...] documented as of this encounter Care Teams Exercise Instructor Relationship Specialty Start Date End Date Rolanda Thakur MD [address] [place] [address] PCP - General Internal Medicine 09/19/22 documented as of this encounter
--- OUTSIDE RECORDS SUMMARY | 2024-09-24 13:38 | XMS_ITS | Encounter Summary ---
Author Organization [employer] Address [address] [place] [address] [place] [address] Care Team Providers Care Manager Clinical Research Name Role Phone Rolanda Thakur MD Primary Care Provider [phone]- [phone] Reason for Visit * Reason Onset Date Comments Med Refill 08/13/2024 Encounter Details Date Type Department Care Team ([facility] st Contact Info) Description 08/13/2024 Refill [facility] MED & PEDS 505 [place] [address] Rolanda Thakur MD 505 [place] [address] Vitamin D deficiency Social History Tobacco Use [...] [facility]eta doesn't accept her insurance, alternative is [facility] endo. documented in this encounter Plan of Treatment Not on file documented as of this encounter Visit Diagnoses Diagnosis Vitamin D deficiency documented in this encounter Additional Health Concerns Assessment Noted Time PHQ-9 Depression Total Score: 2 05/13/20 24 9:24 AM EDT documented as of this encounter Care Teams Manager Clinical Research Relationship Specialty Start Date End Date Rolanda Thakur MD [address] [place] [address] PCP - General Internal Medicine 09/19/22 documented as of this encounter
--- OUTSIDE RECORDS SUMMARY | 2024-09-24 13:38 | XMS_ITS | Encounter Summary ---
Author Organization [employer] Address [address] [place] [address] 7 [place] [address] Care Team Providers Care Hvac Journeyman Name Role Phone Rolanda Thakur MD Primary Care Provider +1- [phone] Reason for Visit * Reason Onset Date Comments Med Refill 09/18/2024 Encounter Details Date Type Department Care Team (Late st Contact Info) Description 09/18/2024 Refill [facility] MEDICINE 230 [place] [address] Wyatt Huizar MD 230 [place], [place] [phone] Neck pain on left side Social History [...] documented as of this encounter Care Teams Hvac Journeyman Relationship Specialty Start Date End Date Rolanda Thakur MD [address] [place] [address] PCP - General Internal Medicine 09/19/22 documented as of this encounter
--- OUTSIDE RECORDS SUMMARY | 2024-09-24 13:38 | XMS_ITS | Encounter Summary ---
Author Organization [employer] Address 75 [facility] 7 [place] [address] Care Team Providers Care Airport Security Screener Name Role Phone Rolanda Thakur MD Primary Care Provider +1- [phone] Reason for Visit * Reason Onset Date Comments Med Refill 08/19/2024 Encounter Details Date Type Department Care Team (Late st Contact Info) Description 08/19/2024 Refill [facility] [address] [place] [address] Wyatt Huizar MD 230 [place], [place] [phone] Neck pain on left side Social History [...] documented as of this encounter Care Teams Airport Security Screener Relationship Specialty Start Date End Date Rolanda Thakur MD [address] [place] [address] PCP - General Internal Medicine 09/19/22 documented as of this encounter
--- OUTSIDE RECORDS SUMMARY | 2024-09-24 13:38 | XMS_ITS | Encounter Summary ---
Author Organization [employer] Address [address] [place] [address] 7 [place] [address] Care Team Providers Care Sketch Maker Name Role Phone Rolanda Thakur MD Primary Care Provider +1- [phone] Encounter Details Date Type Department Care Team ([facility] st Contact Info) Description 09/23/2024 Orders Only [facility] MED & PEDS 505 [place] [address] Rolanda Thakur MD 505 [place] [address] Acquired hypothyroidism (Primary Dx); Benign essential hypertension [...] documented as of this encounter Care Teams Sketch Maker Relationship Specialty Start Date End Date Rolanda Thakur MD [address] [place] [address] PCP - General Internal Medicine 09/19/22 documented as of this encounter
--- OUTSIDE RECORDS SUMMARY | 2024-09-24 13:38 | XMS_ITS | Encounter Summary ---
Author Organization [employer] Address 75 [facility] 7 [place] [address] Care Team Providers Care Health It Specialist Name Role Phone Rolanda Thakur MD Primary Care Provider +1- [phone] Reason for Visit * Reason Onset Date Comments Nurse Triage 09/24/2024 Encounter Details Date Type Department Care Team (Late st Contact Info) Description 09/24/[address] [facility] MEDICINE 230 [place] [address] Rolanda Thakur MD 505 [place] [address] Nurse Triage Social History Tobacco Use Types [...] WIC for today as no appts in [facility]. Pt states gets panic attacks if has to wait . Pt advised unfortunately no appts in [facility]> Unable to schedule ahead for WIC. Pt states will seek [facility] on [facility] in [place]. Will send to team as FYI to [...] acuity questions The caller accepted this outcome. [phone] documented in this encounter Plan of Treatment Not on file documented as of this encounter Visit Diagnoses Not on filedocumented in this encounter Additional Health Concerns Assessment Noted Time PHQ-9 Depression Total Score: 2 05/13/20 24 9:24 AM EDT documented as of this encounter Care Teams Health It Specialist Relationship Specialty Start Date End Date Rolanda Thakur MD [address] [place] [address] PCP - General Internal Medicine 09/19/22 documented as of this encounter
--- OUTSIDE RECORDS SUMMARY | 2024-09-24 13:38 | XMS_ITS | Encounter Summary ---
Author Organization [employer] Address [address] [place] [address] Care Team Providers Care City Designer Name Role Phone Rolanda Thakur MD Primary Care Provider +1- [phone] Encounter Details Date Type Department Care Team ([facility] st Contact Info) Description 10/27/2023 Orders Only [facility] CH[facility] MED & PEDS 505 [place] [address] Bhavesh Yang, RN 505 [place] [address] Social History Tobacco Use Types Packs/Day Years [...] on filedocumented in this encounter Care Teams City Designer Relationship Specialty Start Date End Date Rolanda Thakur MD 505 [place] [address] PCP - General Internal Medicine 09/19/22 documented as of this encounter
--- OUTSIDE RECORDS SUMMARY | 2024-09-24 13:38 | XMS_ITS | Encounter Summary ---
Author Organization [employer] Address [address] [place] [address] [place] [address] Care Team Providers Care Meat Lugger Name Role Phone Rolanda Thakur MD Primary Care Provider +1- [phone] Reason for Visit * Reason Comments Med Refill Encounter Details Date Type Department Care Team ([facility] st Contact Info) Description 09/17/2024 Refill [facility] CH[facility] MED & PEDS 505 [place], [place] [phone] Rolanda Thakur MD 505 [place] [address] Diabetic polyneuropathy associated with type 2 diabetes [...] documented as of this encounter Care Teams Meat Lugger Relationship Specialty Start Date End Date Rolanda Thakur MD 505 [place] [address] PCP - General Internal Medicine 09/19/22 documented as of this encounter
--- OUTSIDE RECORDS SUMMARY | 2024-09-24 13:38 | XMS_ITS | Encounter Summary ---
Author Organization [facility] [employer] Address 75 [facility] 7 [place] [address] Care Team Providers Care Metal Mockup Maker Name Role Phone Rolanda Thakur MD Primary Care Provider +1- [phone] Reason for Visit * Reason Onset Date Comments Nurse Triage 08/09/2024 Encounter Details Date Type Department Care Team (Late st Contact Info) Description 08/09/2024 Telephone [facility] MEDICINE 230 [place] [address] Rolanda Thakur MD 505 [place] [address] Nurse Triage Social History Tobacco Use Types [...] Encounter - Henny Tan RN - 08/09/2024 4:35 PM EST [...] precautions and reasons to call back. Reviewed [facility] operating hours and that wait times vary. Protocol Used: Neck Pain or Stiffness (Adult) Protocol-Based Disposition: See in Office or Video Visit Today or Tomorrow Future Appointments Date Time Provider Department Center 08/10/2024 9:40 AM [facility] 2 WALK-IN [facility] Insurance verified as active per Real Time Eligibility in [facility]. Positive Triage Question: * Tenderness in [...] documented as of this encounter Care Teams Metal Mockup Maker Relationship Specialty Start Date End Date Rolanda Thakur MD [address] [place] [address] PCP - General Internal Medicine 09/19/22 documented as of this encounter
--- OUTSIDE RECORDS SUMMARY | 2024-09-24 13:38 | XMS_ITS | Encounter Summary ---
Author Organization [employer] Address 75 [facility] 7t [place] [address] Care Team Providers Care Histotechnologist Supervisor Name Role Phone Rolanda Thakur MD Primary Care Provider +[phone] Encounter Details Date Type Department Care Team [...] documented as of this encounter Care Teams Histotechnologist Supervisor Relationship Specialty Start Date End Date Rolanda Thakur MD [address] [place] [address] PCP - General Internal Medicine 09/19/22 documented as of this encounter
--- OUTSIDE RECORDS SUMMARY | 2024-09-24 13:38 | XMS_ITS | Encounter Summary ---
Author Organization [employer] Address [address] [place] [address] [place] [address] Care Team Providers Care Nurse Ldr Name Role Phone Rolanda Thakur MD Primary Care Provider +1- [phone] Encounter Details Date Type Department Care Team (Late st Contact Info) Description 12/07/2023 Telephone [facility] MEDICINE [address] [place] [address] [phone] Rolanda Thakur MD 505 [place] [address] Social History Tobacco Use Types Packs/Day Years [...] on filedocumented in this encounter Care Teams Nurse Ldr Relationship Specialty Start Date End Date Rolanda Thakur MD 505 [place] [address] PCP - General Internal Medicine 09/19/22 documented as of this encounter
--- OUTSIDE RECORDS SUMMARY | 2024-09-24 13:38 | XMS_ITS | Encounter Summary ---
Author Organization [employer] Address [address] [place] [address] Care Team Providers Care Tower Crane Operator Name Role Phone Rolanda Thakur MD Primary Care Provider +1- [phone] Encounter Details Date Type Department Care Team ([facility] st Contact Info) Description 08/18/2023 Orders Only [facility] MED & PEDS 505 [place] [address] Rolanda Thakur MD 505 [place] [address] Social History Tobacco Use Types Packs/Day Years [...] on filedocumented in this encounter Care Teams Tower Crane Operator Relationship Specialty Start Date End Date Rolanda Thakur MD 505 [place] [address] PCP - General Internal Medicine 09/19/22 documented as of this encounter
--- OUTSIDE RECORDS SUMMARY | 2024-09-24 13:38 | XMS_ITS | Encounter Summary ---
Author Organization [employer] Address [address] [place] [address] Care Team Providers Care Lithographer Apprentice Name Role Phone Rolanda Thakur MD Primary Care Provider +1- [phone] Reason for Referral * Consultation (Routine) - Authorized Specialty Diagnoses / Procedures Referred By Contac t Referred To Contact Endocrinology Diagnoses Type 2 diabetes mellitus without complication, without long-term current use of insulin (CMS/HCC) Rolanda Thakur MD [address] [place] [phone] Phone: tel: fax: [facility] [address] [place] [phone] Phone: tel: fax: Referral ID Status Reason Start Date Expiration Date Visits Requested Visits Authorized [id number] Authorized Specialty Services Required 08/26/2024 08/26/2025 1 1 Encounter Details Date Type Department Care Team (Late st Contact Info) Description 08/26/2024 Orders Only [facility] MED & PEDS [address] [place] [address] [phone] Rolanda Thakur MD [address] [place] [phone] Type 2 diabetes mellitus without complication, without [...] documented as of this encounter Care Teams Lithographer Apprentice Relationship Specialty Start Date End Date Rolanda Thakur MD 505 [place] [address] PCP - General Internal Medicine 09/19/22 documented as of this encounter
--- OUTSIDE RECORDS SUMMARY | 2024-09-24 13:38 | XMS_ITS | Encounter Summary ---
Author Organization [employer] Address [address] [place] [address] Care Team Providers Care Dairy Tester Name Role Phone Rolanda Thakur MD Primary Care Provider [phone]- [phone] Reason for Visit * Reason Onset Date Comments Med Refill 10/27/2023 Encounter Details Date Type Department Care Team (Late st Contact Info) Description 10/27/[address] [facility] MEDICINE [address] [place] [address] Rolanda Thakur MD 505 [place] [address] Med Refill Social History Tobacco Use Types [...] on medication 125 Please contact pt @ [phone] No meds. * Telephone Encounter - Haylie Cantor RN - 10/27/2023 3:44 PM EST Patient reporting alternating days of synthroid 125 mcg and synthroid 137 mcg. Requesting new script for synthroid 125 mcg. Please review and advise, thanks. Tc from pt requesting levothyroxine (Synthroid) 125 MCG tablet, teletypewriter operator do not see med in chart but pt stated has been taking this medication for 10 years, pt switch 137 and 125 every day, teletypewriter operator attempted to contact pharmacy for clarifications but [facility] [address] open at 9:00AM. * Telephone Encounter - Jenny Neff - 10/27/2023 8:31 AM EST Tc from pt requesting levothyroxine (Synthroid) 125 MCG tablet, teletypewriter operator do not see med in chart but pt stated has been taking this medication for 10 years, pt switch 137 and 125 every day, teletypewriter operator attempted to contact pharmacy for clarifications but [facility] [address] open at 9:00AM. documented in this encounter Plan of Treatment Not on file documented as of this encounter Visit Diagnoses Not on filedocumented in this encounter Care Teams Dairy Tester Relationship Specialty Start Date End Date Rolanda Thakur MD [address] [place] [phone] PCP - General Internal Medicine 09/19/22 documented as of this encounter
--- OUTSIDE RECORDS SUMMARY | 2024-09-24 13:38 | XMS_ITS | Clinical Summary ---
Author Organization [employer] Address [address] [place] [address] 7 [place] [address] Care Team Providers Care Automotive Brake Specialist Name Role Phone Rolanda Thakur MD Primary Care Provider [phone] Allergies Active Allergy Reactions Criticality Noted Date [...] complication, without long-term current use of insulin ([facility]) Chew 4 tablets (16 g) if needed for low blood sugar. 50 tablet 12 03/06/20 24 2024 Active glucose blood (Replication Medical[employer] Ultra) test stripIndications: Type 2 diabetes mellitus without complication, without long-term current use of insulin ([facility]) USE DIRECTED TO TEST BLOOD GLUCOSE TWICE DAILY 100 strip 11 07/05/20 24 Active metFORMIN (Glucophage) 500 MG tabletIndications :Type 2 diabetes mellitus without complication, without long-term current use of insulin ([facility]) TAKE 1 TABLET BY MOUTH TWICE DAILY [...] Plan: Augmentin BID x 10 days Nasal [place] Follow up if worsening or no improvement [...] intervention , Patient to reach out to [facility] team as needed, Patient to engage in OP therapy , and Patient to reach out to HC as needed Swelling of lip, tongue, and throat 05/10/2024 Assessment & Plan (05/22/2024 1:00 PM EDT): Patient reports episodes of swelling of exposure to different antigens, at this moment given recurrence and symptoms affecting patients daily, will strongly benefit of assessment from head of precision targeting to help elucidate etiology of symptoms. Peripheral [...] Type Department Care Team Description 09/24/2024 Telephone [facility] MEDICINE [address] [place] [address] Rolanda Thakur MD Nurse Triage 09/23/2024 Orders Only [facility] MED & PEDS [address] [place] [address] Rolanda Thakur MD Acquired hypothyroidism (Primary Dx); Benign essential hypertension 09/18/2024 Refill [facility] MEDICINE [address] [place] [address] Wyatt Huizar MD Neck pain on left side 09/17/2024 Refill [facility] MED & PEDS [address] [place] [address] Rolanda Thakur MD Diabetic polyneuropathy associated with type 2 diabetes mellitus ([facility]) 09/15/2024 Refill [facility] MED & PEDS [address] [place] [address] Rolanda Thakur MD 09/10/2024 3:45 PM EST Office Visit [facility] MED & PEDS [address] [place] [address] Rolanda Thakur MD Type 2 diabetes mellitus without complication, without long-term current use of insulin (CMS/HCC) (Primary Dx); Diabetic polyneuropathy associated with type 2 diabetes mellitus (CMS/HCC); Spondylosis of cervical region without myelopathy or radiculopathy; Benign essential hypertension 09/10/2024 Travel 09/04/2024 Refill [facility] CH[facility] MED & PEDS [address] [place] [address] Rolanda Thakur MD Anxiety; Benign essential hypertension 08/27/2024 Refill [facility] MEDICINE [address] [place] [address] Rolanda Thakur MD Type 2 diabetes mellitus without complication, without long-term current use of insulin (CMS/HCC) 08/26/2024 Orders Only [facility] CH[facility] MED & PEDS [address] [place] [address] Rolanda Thakur MD Type 2 diabetes mellitus without complication, without long-term current use of insulin (CMS/HCC) (Primary Dx) 08/23/2024 Refill [facility] CH[facility] MED & PEDS [address] [place] [address] Rolanda Thakur MD 08/20/2024 Refill [facility] MED & PEDS [address] [place] [address] Rolanda Thakur MD 08/20/2024 Refill [facility] MEDICINE [address] [place] [address] Rolanda Thakur MD 08/20/2024 Refill [facility] CH[facility] MED & PEDS [address] [place] [address] Karoline Castañeda MD Acquired hypothyroidism 08/20/2024 Refill [facility] CH[facility] MED & PEDS [address] [place] [address] Kraen Alcantar MD 08/19/2024 Refill [facility] WALK-IN CENTER [address] [place] [address] Wyatt Huizar MD Neck pain on left side 08/19/2024 Refill [facility] WALK-IN CENTER [address] [place] [address] Wyatt Huizar MD Neck pain on left side 08/19/2024 Refill [facility] CH[facility] MED & PEDS [address] [place] [address] Rolanda Thakur MD Panic attack; Anxiety 08/17/2024 10:40 AM EST Office Visit [facility] WALK[facility]IN [facility]ENTER [address] [place] [address] Uday Rodriguez MD Cracked skin (Primary Dx); Sciatica, unspecified laterality 08/17/2024 Refill [facility] CH[facility] MED & PEDS [address] [place] [address] Rolanda Thakur MD 08/17/[address] [address] Rolanda Thakur MD 08/17/2024 Travel 08/15/2024 Refill [facility] CH[facility] MED & PEDS [address] [place] [address] Rolanda Thakur MD Vitamin D deficiency 08/13/2024 Refill [facility] MED & PEDS [address] [place] [address] Rolanda Thakur MD Vitamin D deficiency 08/13/2024 Refill [facility] CH[facility] MED & PEDS [address] [place] [address] Maren Hough MD 08/13/2024 Telephone [facility] CH[facility] MED & PEDS [address] [place] [address] Rolanda Thakur MD 08/10/2024 9:40 AM EST Office Visit [facility] W[facility] [address] [place] [address] Wyatt Huizar MD Neck pain on left side (Primary Dx); Acute maxillary sinusitis, recurrence not specified; Benign essential hypertension 08/10/2024 Travel 08/09/[address] [address] Rolanda Thakur MD Nurse Triage 08/05/[address] [address] Rolanda Thakur MD Nurse Triage 08/02/2024 Orders Only [facility] MED & PEDS [address] [place] [address] Rolanda Thakur MD Chronic left-sided low back pain with left-sided sciatica (Primary Dx) 07/31/2024 Telephone [facility] MED & PEDS [address] [place] [address] Rolanda Thakur MD Referral 07/22/2024 Telephone [facility] MED & PEDS [address] [place] [address] Giuliana Manzo, RN Results 07/20/[address] [address] Rolanda Thakur MD Type 2 diabetes mellitus without complication, without long-term current use of insulin (CMS/HCC) 07/17/2024 2:15 PM EST Office Visit [facility] MED & PEDS [address] [place] [address] Rolanda Thakur MD Benign essential hypertension (Primary Dx); Type 2 diabetes mellitus without complication, without long-term current use of insulin ([facility]/HCC); Decreased GFR; Screening for colon cancer 07/17/2024 Travel 07/15/2024 Telephone [facility] MED & PEDS [address] [place] [address] Rolanda Thakur MD Chart Prep 07/09/2024 Orders Only [facility] MED & PEDS [address] [place] [address] Rolanda Thakur MD Hyponatremia (Primary Dx); Decreased GFR 07/08/2024 Patient Outreach [facility] MED & PEDS [address] [place] [address] Rolanda Thakur MD Care Coordination (CHW outreach for [facility] food and bills help need-LVM ) 07/06/2024 9:00 AM EST Office Visit [facility] WALK-IN [address] [address] Edward Bach MD Hyponatremia (Primary Dx); Type 2 diabetes mellitus without complication, without long-term current use of insulin ([facility]); Hypothyroidism, unspecified type 07/06/2024 Telephone [facility] WALK-IN [address] [address] Edward Bach MD 07/05/2024 Travel 07/05/2024 Telephone [facility] MEDICINE [address] [place] [address] Rolanda Thakur MD pt requests ; Appointment Request 07/05/[address] [address] Rolanda Thakur MD Type 2 diabetes mellitus without complication, without long-term current use of insulin ([facility]/HCC) 07/03/2024 Telephone [facility] CHC MED & PEDS [address] [place] [address] scan order 06/24/[address] [address] Rolanda Thakur MD Referral from Last 3 [...] complication, without long-term current use of insulin ([facility]) Decreased GFR LIPID PANEL, STANDARD Routine 07/17/2024 [...] EST ? [facility] ?[address] ? [place] [address] ?XRay Report ? Signed ? Patient: Edwin,Angely ?MR#: [id number] ? : 1950 ?Acct:[id number] ? Age/Sex: 74 / F ?ADM Date: 08/12/24 ? Loc: HO.HMGCX ? Attending Dr: Wyatt Golden MD ? Ordering Physician: Wyatt Golden MD ?? Date of Service: 08/12/24 ?? Procedure(s): XR cervical spine 5V ?? Accession Number(s): [id number] ? cc: Rolanda Thakur MD; Wyatt Golden [...] DD/ 0950 ? TD/TT: 08/12/24 1000 ? Patient Monitor: ? Procedure Note Donotuseinterpreter, Image - 09/02/2024 [facility] [address] [place], [place] [address] XRay Report Signed Patient: Angely PinedaMR#: [id number] : 1950cct:[id number] Age/Sex: 74 / FADM Date: 08/12/24 Loc: HO.HMGCX Attending Dr: Wyatt Golden MD Ordering Physician: Wyatt Golden MD Date of Service: 08/12/24 Procedure(s): XR cervical spine 5V Accession Number(s): [id number] cc: Rolanda Thakur MD; Wyatt Golden MD [...] MD Signed By: <Electronically signed by Yuridia Becerar MD in OV> 09/02/24 1121 DD/ 0950 TD/TT: 08/12/24 1000 Patient Monitor: us Wyatt Mcdonald MD IMG XR PROCEDURES Iftikhar mecca Result - Final * Cologuard?? colon cancer screening (08/09/2024 8:30 AM EST) Cologuard Result Negative Negative 08/18/20 11:52 PM [facility] [employer] (CLIA #:[id number]) Comment: NEGATIVE TEST RESULT. A negative Cologuard [...] cancer. ??Following a negative Cologuard result, the [place] [employer] Society and U.S. Multi-Society Task Force screening guidelines recommend a Cologuard re-screening interval of 3 years. References: [place] [employer] Guideline for Colorectal Cancer Screening: https://www.cancer.org/cancer/zsrqr-utqyoq-cqvyej/tglwnszcf-jwjvofnon-dxzczmc/ac s-rec ommendations.html.; Santiago DK, Ileana CR, Emery LalaK, Colorectal Cancer Screening: Recommendations for Physicians and Patients from the U.S. Multi-Society Task Force on Colorectal Cancer Screening , Am J Gastroenterology 2017; 112:8320-7767. TEST DESCRIPTION: Composite algorithmic analysis of stool [...] (Dioni Kelly al, N Engl J Med 2014;370(14):0787-3064.) Cologuard may produce a false negative or false positive result (no colorectal cancer or precancerous polyp present at colonoscopy follow up). A negative Cologuard test result does not guarantee the absence of CRC or advanced adenoma (pre-cancer). The current Cologuard screening interval is every 3 years. ([place] [employer] Society and U.S. Multi-Society Task Force). Cologuard performance data in a 10,000 patient pivotal study using colonoscopy as the reference method can be accessed at the following location: www.[employer]./results. Additional description of the Cologuard test process, warnings and precautions can be found at www.[employer].Whistlestop. Stool specimen (specimen) 08/09/2024 8:30 AM EST 08/10/2024 2:47 PM EST us Rolanda Thakur MD LAB MOLECULAR DIAGNOSTICS O RDERABLES Final Result [employer] (CLIA #:[id number]) [address] [place] [address], * CT Head w/o Contrast (08/09/2024) Anatomical Region Laterality Modality Head, Neck Computed Tomogra phy us Karen Alcantar MD IMG CT PROCEDURES Final Resul t * Hepatitis C Antibody with Reflex to HCV, RNA, Quantitative, Real-Time PCR (07/17/2024 3:20 PM EST) Hepatitis C Antibody Nonreactive Nonreactive [facility] Comment:Antibodies to HCV no t detected; does not exclude early acuteHCV infection. Blood Venous blood specimen / Unknown 07/17/2024 3:20 PM EST 07/17/2024 5:23 PM EST Rolanda Thakur MD LAB BLOOD ORDERABLES Final Result Performing Organization Address [facility] Co de Phone Number [facility] [address] [place] [phone] * (ABNORMAL) Lipid Panel, Standard (07/17/2024 3:20 PM EST) Triglycerides 89 <150 mg/dL [facility] Comment:Desirable Triglyceri de: less than 150 mg/dLBorderline High Triglyceride 150-199 mg/dLHigh Triglyceride: 200-499 mg/dLVery High Triglyceride: greater than or equal to 5OO mg/dL Cholesterol 193 <200 mg/dL [facility] Comment:Desirable Cholestero l: less than 200 mg/dLBorderline High Cholesterol: 200-239 mg/dLHigh Cholesterol: greater than 239 mg/dL LDL Cholesterol Calculated 111(H) <100 mg/dL [facility] Comment:Desirable LDL: less than 100 mg/dLNear Optimal/Above Optimal LDL: 110- 129 mg/dLBorderline High LDL: 130-159 mg/dLHigh LDL: 160-189 mg/dLVery High LDL: greater than or equal to 190 mg/dL HDL Cholesterol 65 >40 mg/dL [facility] Comment:Desirable HDL: great er than 40 mg/dL Note: This HDL assay may give artificially low results in patients with liver disease. Blood Venous blood specimen / Unknown 07/17/2024 3:20 PM EST 07/17/2024 5:23 PM EST us Rolanda Thakur MD LAB BLOOD ORDERABLES Final Result Performing Organization Address [facility]/ZIP Co de Phone Number [facility] [address] [place] [phone] * (ABNORMAL) Basic Metabolic Panel (07/17/2024 3:20 PM EST) Only the most recent of2 resultswithin the time period is included. Sodium 135 135 - 145 mmol/L [facility] Potassium 3.8 3.3 - 5.1 mmol/L [facility] Chloride 103 96 - 108 mmol/L [facility] Carbon Dioxide 21(L) 22 - 29 mmol/L [facility] Anion Gap 15 12 - 20 [facility] Urea Nitrogen (BUN) 14 9 - 16 mg/dL [facility] Creatinine, Serum 1.12 0.5 - 1.4 mg/dL [facility] Estimated Glomerular Filt Rate 48 [facility] Comment:Chronic Kidney Disea se: Estimated GFR < 60 mL/min/1.88h9Nqecqf Kidney Disease: Estimated GFR < 15 mL/min/1.73m2 Glucose 170(H) 60 - 115 mg/dL [facility] Calcium 10.0 8.4 - 10.2 mg/dL [facility] Blood Venous blood specimen / Unknown 07/17/2024 3:20 PM EST 07/17/2024 5:23 PM EST us Rolanda Thakur MD LAB BLOOD ORDERABLES Final Result [facility] [address] [place] [phone] * (ABNORMAL) POCT Urinalysis (07/17/2024 3:11 [...] 2:55 PM EST) Creatinine, Urine 38.88 mg/dL [facility] Microalbumin Urine <5.0 mg/L [facility] Microalbum Creatinine Ratio Ur TNP <30 ug/mg cr [facility] Comment:Unable to calculate albumin/creatinine ratio due to lowmicroalbumin or creatinine result. Urine (Urine, Random) 07/17/2024 2:55 PM EST 07/17/2024 5:25 PM EST us Rolanda Thakur MD LAB URINE ORDERABLES Final Result Performing Organization Address City/State/[facility] Co de Phone Number [facility] [address] [place] [phone] * POCT Glucose (07/17/2024 2:48 PM [...] Free T4 1.95 0.32 - 4.0 uIU/mL [facility] Blood Venous blood specimen / Unknown 07/09/2024 7:58 AM EST 07/09/2024 10:02 AM EST Edward Bach MD LAB BLOOD ORDERABLES Final Resul t [facility] [address] [place] [phone] * ECG 12 lead (07/08/2024) us [...] Most Recently Relevant to Health Maintenance Insurance [facility] MEDICARE REPLACEMENT Care Teams Automotive Brake Specialist Relationship Specialty Start Date End Date Rolanda Thakur MD [address] [place] [phone] PCP - General Internal Medicine 09/19/22
--- OUTSIDE RECORDS SUMMARY | 2024-09-24 13:38 | XMS_ITS | Encounter Summary ---
Author Organization [employer] Address [address] [place] [address] [place] [address] Care Team Providers Care Pharmaceutical Detailer Name Role Phone Rolanda Thakur MD Primary Care Provider [phone]- [phone] Reason for Visit * Reason Onset Date Comments Referral 11/16/2023 Encounter Details Date Type Department Care Team ([facility] st Contact Info) Description 11/16/[address] [facility] CHC MED & PEDS [address] [place] [address] Rolanda Thakur MD [address] [place] [address] Referral Social History Tobacco Use Types Packs/Day [...] MyChart encounter. Any questions, contact pt at [phone] documented in this encounter Plan of Treatment Not on file documented as of this encounter Visit Diagnoses Not on filedocumented in this encounter Care Teams Pharmaceutical Detailer Relationship Specialty Start Date End Date Rolanda Thakur MD [address] [place] [phone] PCP - General Internal Medicine 09/19/22 documented as of this encounter
--- OUTSIDE RECORDS SUMMARY | 2024-09-24 13:38 | XMS_ITS | Encounter Summary ---
Author Organization [employer] Address [address] [place] [address] [place] [address] Care Team Providers Care Research Physicist Name Role Phone Rolanda Thakur MD Primary Care Provider +1- [phone] Reason for Visit * Reason Comments Med Refill Encounter Details Date Type Department Care Team ([facility] st Contact Info) Description 09/04/2024 Refill [facility] CHC MED & PEDS [address] [place], [place] [phone] Rolanda Thakur MD [address] [place] [address] Anxiety; Benign essential hypertension Social History Tobacco [...] documented as of this encounter Care Teams Research Physicist Relationship Specialty Start Date End Date Rolanda Thakur MD [address] [place] [phone] PCP - General Internal Medicine 09/19/22 documented as of this encounter
--- OUTSIDE RECORDS SUMMARY | 2024-09-24 13:38 | XMS_ITS | Encounter Summary ---
Author Organization [employer] Address [address] [place] [address] Care Team Providers Care Respiratory Technician Name Role Phone Rolanda Thakur MD Primary Care Provider +1- [phone] Reason for Visit * Reason Comments Med Refill Encounter Details Date Type Department Care Team (Late st Contact Info) Description 08/27/2024 Refill [facility] MEDICINE [address] [place] [address] Rolanda Thakur MD [address] [place], [place] [phone] Type 2 diabetes mellitus without complication, without long-term current use of insulin ([facility]) Social History Tobacco Use Types Packs/Day Years [...] complication, without long-term current use of insulin ([facility]) documented in this encounter Additional Health Concerns Assessment Noted Time PHQ-9 Depression Total Score: 2 05/13/20 24 9:24 AM EDT documented as of this encounter Care Teams Respiratory Technician Relationship Specialty Start Date End Date Rolanda Thakur MD [address] [place] [address] PCP - General Internal Medicine 09/19/22 documented as of this encounter
--- OUTSIDE RECORDS SUMMARY | 2024-09-24 13:38 | XMS_ITS | Encounter Summary ---
Author Organization [employer] Address [address] [place] [address] Care Team Providers Care Sterile Proc Tech Name Role Phone Rolanda Thakur MD Primary Care Provider +1- [phone] Reason for Referral * Consultation (Routine) - Pending Review Specialty Diagnoses / Procedures Referred By Con[employer] meadows Referred To Contact Podiatry Diagnoses Type 2 diabetes mellitus without complication, without long-term current use of insulin (CMS/HCC) Rolanda Thakur MD [address] [place] [address] Phone: tel: fax: Carl Avitia DPM Phone: tel: fax: Referral ID Status Reason Start Date Expiration Date Visits Requested Visits Authorized [id number] Pending Review Specialty Services Required 11/01/2023 10/31/2024 1 1 Encounter Details Date Type Department Care Team (Late st Contact Info) Description 10/23/2023 Orders Only [facility] CHC MED & PEDS [address] [place] [address] Rolanda Thakur MD [address] [place] [phone] Acquired hypothyroidism (Primary Dx); Type 2 diabetes [...] (CMS/HCC) documented in this encounter Care Teams Sterile Proc Tech Relationship Specialty Start Date End Date Rolanda Thakur MD [address] [place] [phone] PCP - General Internal Medicine 09/19/22 documented as of this encounter
--- OUTSIDE RECORDS SUMMARY | 2024-09-24 13:38 | XMS_ITS | Encounter Summary ---
Author Organization [employer] Address [address] [place] [address] [place] [address] Care Team Providers Care Tuck Pointer Name Role Phone Rolanda Thakur MD Primary Care Provider [phone]- [phone] Encounter Details Date Type Department Care Team (Late st Contact Info) Description 10/27/[address] [facility] MEDICINE [address] [place], [place] [phone] Rolanda Thakur MD [address] [place] [address] Social History Tobacco Use Types Packs/Day Years [...] on filedocumented in this encounter Care Teams Tuck Pointer Relationship Specialty Start Date End Date Rolanda Thakur MD [address] [place] [address] PCP - General Internal Medicine 09/19/22 documented as of this encounter
--- OUTSIDE RECORDS SUMMARY | 2024-09-24 13:38 | XMS_ITS | Encounter Summary ---
Author Organization [employer] Address [address] [place] [address] Care Team Providers Care Phys Asst Name Role Phone Rolanda Thakur MD Primary Care Provider [phone]- [phone] Reason for Visit * Reason Onset Date Comments Medication Question 10/23/2023 Encounter Details Date Type Department Care Team (Late st Contact Info) Description 10/23/2023 Telephone [facility] MEDICINE [address] [place] [address] Rolanda Thakur MD [address] [place], [place] [phone] Medication Question Social History Tobacco Use Types [...] on filedocumented in this encounter Care Teams Phys Asst Relationship Specialty Start Date End Date Rolanda Thakur MD [address] [place] [id number] PCP - General Internal Medicine 09/19/22 documented as of this encounter
--- OUTSIDE RECORDS SUMMARY | 2024-09-24 13:38 | XMS_ITS | Encounter Summary ---
Author Organization [employer] Address [address] [place] [address] [place] [address] Care Team Providers Care Gang Tailer Name Role Phone Rolanda Thakur MD Primary Care Provider +1- [phone] Encounter Details Date Type Department Care Team (Late st Contact Info) Description 12/07/2023 Telephone [facility] MEDICINE [address] [place] [phone] Rolanda Thakur MD [address] [place] [address] Social History Tobacco Use Types Packs/Day Years [...] on filedocumented in this encounter Care Teams Gang Tailer Relationship Specialty Start Date End Date Rolanda Thakur MD [address] [place] [address] PCP - General Internal Medicine 09/19/22 documented as of this encounter
--- OUTSIDE RECORDS SUMMARY | 2024-09-24 13:38 | XMS_ITS | Encounter Summary ---
Author Organization [employer] Address [address] [place] [address] [place] [address] Care Team Providers Care Senior Biostatistician Name Role Phone Rolanda Thakur MD Primary Care Provider +1- [phone] Encounter Details Date Type Department Care Team (Latest Contact Info) Description 08/17/2021 Abstract [facility] Dental, Provider, DDS Social History [...] filedocumented in this encounter Care Teams Senior Biostatistician Relationship Specialty Start Date End Date Rolanda Thakur MD 505 [facility] [place] [address] PCP - General Internal Medicine 09/19/22 documented as of this encounter
--- OUTSIDE RECORDS SUMMARY | 2024-09-24 13:38 | XMS_ITS | Encounter Summary ---
Author Organization [employer] Address [address] [place] [address] Care Team Providers Care Absorption And Adsorption Engineer Name Role Phone Rolanda Thakur MD Primary Care Provider [phone]- [phone] Encounter Details Date Type Department Care Team ([facility] st Contact Info) Description 12/28/2023 Orders Only [facility] MED & PEDS [address] [place] [address] Rolanda Thakur MD [address] [place] [address] Social History Tobacco Use Types Packs/Day Years [...] on filedocumented in this encounter Care Teams Absorption And Adsorption Engineer Relationship Specialty Start Date End Date Rolanda Thakur MD [address] [place] [address] PCP - General Internal Medicine 09/19/22 documented as of this encounter
[2024-09-24 18:20] LABS: Influenza A PCR NEGATIVE (Negative); Influenza B PCR NEGATIVE (Negative); Resp Syncy Virus RNA Qual PCR NEGATIVE (Negative); SARS COV2 PCR INHOUSE NEGATIVE (Negative)
== END 2024-09-24 12:15 | disposition home or self-care (01) ==
LOC: HO.LAB 12:14
PROVIDERS: Physician Assistant; PCP Internal Medicine
DX: Z13.89 Encounter for screening for other disorder (principal)
CPT/HCPCS: 0241U

== ENCOUNTER 2024-09-24 13:35 | Outpatient (REF) | payer MEDICARE, SELFPAY ==
[2024-09-24 16:24] LABS: MANUAL DIFF FLAG NO
[2024-09-24 16:29] LABS: Basophils Absolute Auto 0.1 X10*3/uL (0.0-0.2); Basophils Percent Auto 0.9 % (0-2); Eosinophils Absolute Auto 0.3 X10*3/uL (0.0-0.4); Eosinophils Percent Auto 4.3 % (0-4); Hemoglobin 12.6 g/dl (12.0-16.0); Imm Gran Abs Auto 0.02 X10*3/uL (0.00-0.03); Imm Gran Pct Auto 0.3 % (0.0-0.4); Lymphocytes Absolute Auto 1.8 X10*3/uL (1.2-4.9); Lymphocytes Percent Auto 26.1 % (20-40); Mean Corpuscular HGB Conc 34.1 g/dl (31.0-35.0); Mean Corpuscular Hemoglobin 29.8 pg (27.0-33.0); Mean Corpuscular Volume 87.5 fL (80.0-98.0); Mean Platelet Volume 9.5 fL (9.4-12.3); Monocytes Absolute Auto 0.6 X10*3/uL (0.1-1.2); Monocytes Percent Auto 8.6 % (2-11); Neutrophils Absolute Auto 4.2 x10*3/uL (2.0-8.3); Neutrophils Percent Auto 59.8 % (45-73); Platelet Count 251 X10*3/uL (160-400); Red Blood Count 4.23 X10*6/uL (4.20-5.50); Red Cell Distribution Width 12.8 % (11.0-16.0)
[2024-09-24 16:53] LABS: Anion Gap 15 (12-20); Blood Urea Nitrogen 13 mg/dL (9-16); Calcium 9.9 mg/dL (8.4-10.2); Carbon Dioxide 22 mmol/L (22-29); Chloride 106 mmol/L (96-108); Estimated Glomerular Filt Rate 58; Glucose Fasting 169 mg/dL (60-99); Potassium 3.8 mmol/L (3.3-5.1); Sodium 139 mmol/L (135-145)
[2024-09-24 17:11] LABS: TSH reflex Free T4 0.38 uIU/mL (0.32-4.0)
[2024-10-01 18:13] LABS: Aldosterone/Renin Ratio 3.8 Ratio (0.9-28.9); Plasma Renin Activity 0.52 ng/mL/h (0.25-5.82)
== END 2024-09-24 13:36 | disposition home or self-care (01) ==
LOC: HO.HMGCLDS 13:35
PROVIDERS: PCP Internal Medicine; Visit Provider Internal Medicine
DX: I10 Essential (primary) hypertension (principal); R05.1 Acute cough; E03.9 Hypothyroidism, unspecified; B34.9 Viral infection, unspecified; R09.89 Other specified symptoms and signs involving the circulatory and respiratory systems
CPT/HCPCS: 0241U; 36415; 80048; 82088; 84443; 85025; 99212

== ENCOUNTER 2024-10-31 15:29 | Outpatient (AMB) | payer MEDICARE, SELFPAY ==
--- NOTE | 2024-10-31 15:53 | AM.OFFWIN_ITS ---
Intake Vital Signs 10/31/24 15:54 Weight 148 lb BP 150/80 H Blood Pressure Location Lt brachial Position Sitting Pulse 65 Pulse Source Pulse Oximeter Pulse Oximetry (%) 98 Oxygen Delivery Method Room Air Intake Visit Reasons: EP abdominal pain & tightness, high BP & sugar Intake Note: Patient here for abdominal pain Patient Tobacco Use Status: Never used Tobacco Allergies ciprofloxacin Allergy (Verified 10/31/24 15:57) Unknown sulfamethoxazole [From Bactrim] Allergy (Verified 10/31/24 15:57) Unknown trimethoprim [From Bactrim] Allergy (Verified 10/31/24 15:57) Unknown gabapentin [GABAPENTIN] Adverse Reaction (Mild, Verified 10/31/24 15:57) NAUSEA acetaminophen [From PERCOCET] Adverse Reaction (Unknown, Verified 10/31/24 15:57) VOMITTING codeine [CODEINE] Adverse Reaction (Unknown, Verified 10/31/24 15:57) VOMITTING meperidine [From DEMEROL] Adverse Reaction (Unknown, Verified 10/31/24 15:57) VOMITTING morphine [MORPHINE] Adverse Reaction (Unknown, Verified 10/31/24 15:57) CANT OPEN HER EYES oxycodone [From PERCOCET] Adverse Reaction (Unknown, Verified 10/31/24 15:57) VOMITTING scallops [SCALLOPS] Adverse Reaction (Unknown, Verified 10/31/24 15:57) ABD PAIN Do you need a note to return to daycare/school/sports/work: No HPI HPI Comments History of Present Illness Details 74 y/o female patient who presents [facility] in clinic with multiple problems; Pt c/o elevated BP reading yesterday during a Panic attack (160/90) associated with Chest tightness. She does also c/o Epigastric region abdominal pain, associated with Bloating. She believe she might have an Ulcer . Pt c/o Elevated Blood Sugars lately and thinks her DM medications are not working well. Reports watching what she eats and has been avoiding all the Foods that are Bad . Reports Sugars Ranging from 200 - 290s at home - uses Dexacom. She also been experiencing Panic attacks, that started right after she had Cataract Surgeries. Denies SI or SA. 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 Tobacco Use Status: Never used Tobacco Review of Systems Const All systems reviewed & are unremarkable except as noted in HPI and below Physical Exam Vital Signs: Last Vital Signs Pulse 65 10/31/24 15:54 BP 150/80 H 10/31/24 15:54 Pulse Ox 98 10/31/24 15:54 Oxygen Delivery Method Room Air 10/31/24 15:54 Const General: cooperative, no acute distress and anxious Orientation/consciousness: patient oriented x3 Resp Effort & Inspection: normal respiratory effort Auscultation: clear to auscultation bilaterally Cardio Rate: regular rate Heart sounds: S1 normal heart sound present and S2 normal heart sound present GI Palpation (GI): Soft to palpation, not firm, Tenderness to palpation present (GI) in the epigastrum, no guarding, not rigid and No hepatosplenomegaly present Auscultation: normal bowel sounds Rectal Exam - Female: deferred Neuro General: patient oriented x3, gait normal and moves all extremities Psych Speech and movement: Normal speech and movement present Affect: Sad affect present and Anxious affect present Assessment & Plan Assessment & Plan (1) Epigastric pain: Code(s): R10.13 - Epigastric pain Plan: Probably GERD, Started her on Omeprazole and Famotidine. Continue f/u with PCP. (2) DM type 2 (diabetes mellitus, type 2): Code(s): E11.9 - Type 2 diabetes mellitus without complications Qualifiers: Diabetes mellitus complication status: without complication Diabetes mellitus jail insulin use: without ferry terminal supervisor use Qualified Code(s): E11.9 - Type 2 diabetes mellitus without complications Plan: No changes on medications today. F/U with PCP (3) Panic attacks: Code(s): F41.0 - Panic disorder [episodic paroxysmal anxiety] Plan: Denies SA or SI. Will need to f/u with PCP for possible Mental Health referral. (4) HTN (hypertension): Code(s): I10 - Essential (primary) hypertension Qualifiers: Hypertension type: primary hypertension Qualified Code(s): I10 - Essential (primary) hypertension Plan: Continue on current regiment. BP increase might be situational. Medications: New omeprazole 20 mg PO DAILY 30 caps 0RF R10.13 - Epigastric pain famotidine 20 mg PO BEDTIME 30 tabs 0RF R10.13 - Epigastric pain Coding Level of Care Code Est Pt Level 4 (48282) Diagnoses Epigastric pain R10.13 Type 2 diabetes mellitus without complication, without long-term current use of insulin E11.9 Diabetes mellitus complication status: without complication Diabetes mellitus jail insulin use: without jail use Panic attacks F41.0 Primary hypertension I10 Hypertension type: primary hypertension Time Spent (min) 20
[2024-10-31 15:54] VITALS: BP 150/80; PULSE 65; O2SAT 98
--- OUTSIDE RECORDS SUMMARY | 2024-10-31 19:02 | XMS_ITS | Encounter Summary ---
Author Organization [employer] Address [address] [place] [address] Care Team Providers Care Director Of Agronomy Name Role Phone Rolanda Thakur MD Primary Care Provider [phone]- [phone] Reason for Referral * Consultation (Routine) - Closed Specialty Diagnoses / Procedures Referred By Contac t Referred To Contact Behavioral Health Diagnoses Anxiety Rolanda Thakur MD [address] [place] [address] Phone: tel: fax: Referral ID Status Reason Start Date Expiration Date V isits Requested Visits Authorized [id number] Closed Specialty Services Required 05/02/2024 05/02/2025 1 1 Encounter Details Date Type Department Care Team ([facility] Contact Info) Description 05/02/2024 Orders Only [facility] MED & PEDS [address] [place] [id number] Rolanda Thakur MD [address] [place] [address] Anxiety (Primary Dx) Social History Tobacco Use [...] unspecified documented in this encounter Care Teams Director Of Agronomy Relationship Specialty Start Date End Date Rolanda Thakur MD [address] [place] [address] PCP - General Internal Medicine 09/19/22 documented as of this encounter
--- OUTSIDE RECORDS SUMMARY | 2024-10-31 19:02 | XMS_ITS | Encounter Summary ---
Author Organization [employer] Address [address] [place] [address] [place] [address] Care Team Providers Care Water Purifier Name Role Phone Rolanda Thakur MD Primary Care Provider +1- [phone] Reason for Visit * Reason Onset Date Comments CT scan order 07/03/2024 Encounter Details Date Type Department Care Team ([facility] Contact Info) Description 07/03/2024 Telephone [facility] MED & PEDS [address] [place] [address] Rolanda Thakur MD [address] [place] [address] CT scan order Social History Tobacco Use [...] incorrect location. Pt prefers being seen in [facility]. Please call pt to clarify. documented in this encounter Plan of Treatment Not on file documented as of this encounter Visit Diagnoses Not on filedocumented in this encounter Additional Health Concerns Assessment Noted Time PHQ-9 Depression Total Score: 2 05/13/20 24 9:24 AM EDT documented as of this encounter Care Teams Water Purifier Relationship Specialty Start Date End Date Rolanda Thakur MD [address] [place] [id number] PCP - General Internal Medicine 09/19/22 documented as of this encounter
--- OUTSIDE RECORDS SUMMARY | 2024-10-31 19:02 | XMS_ITS | Encounter Summary ---
Author Organization [employer] Address 75 [facility] 7 [place] [address] Care Team Providers Care Flight Surgeon Name Role Phone Rolanda Thakur MD Primary Care Provider +1- [phone] Reason for Visit * Reason Onset Date Comments Nurse Triage 10/31/2024 Encounter Details Date Type Department Care Team (Late st Contact Info) Description 10/31/2024 Telephone [facility] MEDICINE [address] [place] [address] Rolanda Thakur MD [address] [place] [address] Nurse Triage Social History Tobacco Use Types [...] encounter Miscellaneous Notes * Telephone Encounter - Phyllis Olmstead LPN - 10/31/2024 11:57 AM EDT Triage call returned to patient to follow incoming call. Patient had previously sent in portal messages for PCP and Team review. Patient did not answer call. Patient had previously been messaged by Team Nurse in [facility] to proceed to ED with concerns of chest pain. Message left for patient to follow after evaluation in ED and to call back to [phone] to make that arrangement. Protocol Used: No Contact or Duplicate Contact Call (Adult) Protocol-Based Disposition: No Contact Call Positive Triage Question: * Message left on identified voicemail * All higher-acuity triage questions were negative * Telephone Encounter - Rhys Pérez - 10/31/2024 11:29 AM EDT TC from pt reports was driving home yesterday and blood sugar was below 70 causing her a panic attach making her b/p high at 198/96. Pt then took a clonazepam which calmed her down and drank a gingerale for blood sugar level. Pt states has a dull ache in the chest area unsure if its heart related or stomach related . Feels if not heart related may be caused by a possible ulcer given her eating schedule . Pt is requesting a EKG . Blood sugar level : 3am : 186 7:04 am : 164 Blood Pressure level: 09:39 AM : 126/66 10:55 AM : 139/80 documented in this encounter Plan of Treatment Not on file documented as of this encounter Visit Diagnoses Not on filedocumented in this encounter Additional Health Concerns Assessment Noted Time PHQ-9 Depression Total Score: 2 05/13/20 24 9:24 AM EDT documented as of this encounter Care Teams Flight Surgeon Relationship Specialty Start Date End Date Rolanda Thakur MD [address] [place] [address] PCP - General Internal Medicine 09/19/22 documented as of this encounter
--- OUTSIDE RECORDS SUMMARY | 2024-10-31 19:02 | XMS_ITS | Encounter Summary ---
Author Organization [employer] Address [address] [place] [address] 7 [place] [address] Care Team Providers Care Property Analyst Name Role Phone Rolanda Thakur MD Primary Care Provider [phone]- [phone] Encounter Details Date Type Department Care Team (Late st Contact Info) Description 06/21/2023 Abstract [facility] MEDICINE [address] [place] [address] Sherrie Caballero Social History Tobacco Use Types [...] on filedocumented in this encounter Care Teams Property Analyst Relationship Specialty Start Date End Date Rolanda Thakur MD [address] [place] [address] PCP - General Internal Medicine 09/19/22 documented as of this encounter
--- OUTSIDE RECORDS SUMMARY | 2024-10-31 19:02 | XMS_ITS | Encounter Summary ---
Author Organization [employer] Address [address] [place] [address] Care Team Providers Care Network Contract Manager Name Role Phone Rolanda Thakur MD Primary Care Provider +1- [phone] Reason for Visit * Reason Onset Date Comments Referral 06/13/2024 Encounter Details Date Type Department Care Team (Late st Contact Info) Description 06/13/2024 Telephone [facility] MEDICINE [address] [place] [address] Rolanda Thakur MD [address] [place], [place] [phone] Referral Social History Tobacco Use Types Packs/Day [...] documented as of this encounter Care Teams Network Contract Manager Relationship Specialty Start Date End Date Rolanda Thakur MD [address] [place] [address] PCP - General Internal Medicine 09/19/22 documented as of this encounter
--- OUTSIDE RECORDS SUMMARY | 2024-10-31 19:02 | XMS_ITS | Encounter Summary ---
Author Organization [employer] Address 75 [facility] 7 [place] [address] Care Team Providers Care Cleater Name Role Phone Rolanda Thakur MD Primary Care Provider Reason for Visit * Reason Onset Date Comments FYI 10/31/2024 Call Back Request 10/31/2024 Encounter Details Date Type Department Care Team (Late st Contact Info) Description 10/31/2024 Telephone [facility] MEDICINE [address] [place] [address] Rolanda Thakur MD [address] [place] [address] FYI ; Call Back Request Social History Tobacco Use [...] * Telephone Encounter - Raz Manuel - 10/31/2024 4:38 PM EDT Tc from pt calling to inform pcp upon urgent care visit. They stated she might have a possible ulcer and advised her to stop taking Metformin. They also advised her to change from night time glipizide to extended release. Urgent care stated it was not a heart attack but she would still like an EKG to further verify. Urgent care suggested pt be put on a diabetic injection that is not for weight loss or insulin, pt forgot medication name. Please contact pt at [phone]. documented in this encounter Plan of Treatment Not on file documented as of this encounter Visit Diagnoses Not on filedocumented in this encounter Additional Health Concerns Assessment Noted Time PHQ-9 Depression Total Score: 2 05/13/20 24 9:24 AM EDT documented as of this encounter Care Teams Cleater Relationship Specialty Start Date End Date Rolanda Thakur MD [address] [place] [address] PCP - General Internal Medicine 09/19/22 documented as of this encounter
--- OUTSIDE RECORDS SUMMARY | 2024-10-31 19:02 | XMS_ITS | Encounter Summary ---
Author Organization [employer] Address [address] [place] [address] [place] [address] Care Team Providers Care Room Maid Name Role Phone Rolanda Thakur MD Primary Care Provider Encounter Details Date Type Department Care Team ([facility] st Contact Info) Description 05/01/2023 Orders Only [facility] CHC MED & PEDS [address] [place] [address] Rolanda Thakur MD [address] [place] [address] Diabetic polyneuropathy associated with type 2 diabetes [...] polyneuropathy associated with type 2 diabetes mellitus ([facility]/HCC) TSH W/REFLEX TO FT4 Routine 05/08/2023 1 1:04 AM EDT Diabetic polyneuropathy associated with type 2 diabetes mellitus ([facility]/HCC) CBC WITH AUTO DIFFERENTIAL Routine 05/08/2023 11:04 AM EDT Diabetic polyneuropathy associated with type 2 diabetes mellitus ([facility]/HCC) HEMOGLOBIN A1C Routine 05/08/2023 11:04 AM EDT Diabetic polyneuropathy associated with type 2 diabetes mellitus ([facility]/HCC) HEPATIC FUNCTION PANEL Routine 05/08/2023 11:04 AM EDT Diabetic polyneuropathy associated with type 2 diabetes mellitus ([facility]/HCC) LIPID PANEL, STANDARD Routine 05/08/2023 11:04 AM EDT Diabetic polyneuropathy associated with type 2 diabetes mellitus ([facility]/HCC) BASIC METABOLIC PANEL Routine 05/08/2023 11:04 AM EDT Diabetic polyneuropathy associated with type 2 diabetes mellitus ([facility]/HCC) documented in this encounter Results * (ABNORMAL) Hemoglobin A1c (05/08/2023 11:04 AM EDT) Hemoglobin A1c 6.1(H) <6.0 % [facility] Comment:Hemoglobin A1C Refer ence Range Adults: 4.8 - 6.0 % Non diabetic: < 6.0 % Goal: < 7.0 %Additional Action Suggested: > 8.0 %Note: Hemoglobin A1c results are invalid for patients with abnormal amounts of HbF. Blood transfusions may impact the HbA1c concentration in the patient sample. Estimated Average Glucose 128 mg/dL [facility] Comment:eAG = Estimated ave rage glucose which is %A1C expressed asaverage glucose, using the formula of the A0W-EquxubjEuloupd Glucose study (ADAG), Diabetes Care, Vol.31,#8,Mar. 2007 Blood Venous blood specimen / Unknown 05/08/2023 11:04 AM EDT 05/08/2023 1:46 PM EDT us Rolanda Thakur MD LAB BLOOD ORDERABLES Final Result Performing Organization Address City/[facility]/ZIP Co de Phone Number [facility] [address] [place] [phone] * Vitamin D, 25-Hydroxy, Total, Immunoassay (05/08/2023 11:04 AM EDT) Vitamin D 25-OH Total 84.6 >30 ng/mL [facility] Comment:Health Based Referen ce Values*< 20 ng/mL Zyxntxlxy55-67 ng/mL Insufficient> 30 ng/mL Sufficient*Arabella MCALLISTER. N [...] BLOOD ORDERABLES Final Result Performing Organization Address [facility] Co de Phone Number [facility] [address] [place] [phone] * Hepatic Function Panel (05/08/2023 11:04 AM EDT) Bilirubin, Total 0.5 0.0 - 1.0 mg/dL [facility] Bilirubin, Direct 0.2 0.0 - 0.5 mg/dL [facility] Aspartate Amino Transferase 22 5 - 31 U/L [facility] Alanine Aminotransferase 18 0 - 31 U/L [facility] Total Protein 7.1 6.5 - 8.0 g/dL [facility] Albumin Level 4.4 3.5 - 5.0 g/dL [facility] Alkaline Phosphatase 70 39 - 117 U/L [facility] Blood Venous blood specimen / Unknown 05/08/2023 11:04 AM EDT 05/08/2023 1:47 PM EDT us Rolanda Thakur MD LAB BLOOD ORDERABLES Final Result [facility] [address] [place] [phone] * (ABNORMAL) Lipid Panel, Standard (05/08/2023 11:04 AM EDT) Triglycerides 110 <150 mg/dL [facility] Comment:Desirable Triglyceri de: less than 150 mg/dLBorderline High Triglyceride 150-199 mg/dLHigh Triglyceride: 200-499 mg/dLVery High Triglyceride: greater than or equal to 5OO mg/dL Cholesterol 198 <200 mg/dL [facility] Comment:Desirable Cholestero l: less than 200 mg/dLBorderline High Cholesterol: 200-239 mg/dLHigh Cholesterol: greater than 239 mg/dL LDL Cholesterol Calculated 121(H) <100 mg/dL [facility] Comment:Desirable LDL: less than 100 mg/dLNear Optimal/Above Optimal LDL: 110- 129 mg/dLBorderline High LDL: 130-159 mg/dLHigh LDL: 160-189 mg/dLVery High LDL: greater than or equal to 190 mg/dL HDL Cholesterol 55 >40 mg/dL [facility] Comment:Desirable HDL: great er than 40 mg/dL Note: This HDL assay may give artificially low results in patients with liver disease. Blood Venous blood specimen / Unknown 05/08/2023 11:04 AM EDT 05/08/2023 1:47 PM EDT us Rolanda Thakur MD LAB BLOOD ORDERABLES Final Result Performing Organization Address [facility]/ZIP Co de Phone Number [facility] [address] [place] [phone] * TSH W/Reflex to FT4 (05/08/2023 11:04 AM EDT) TSH reflex Free T4 0.53 0.32 - 4.0 uIU/mL [facility] Blood 05/08/2023 11:0 4 AM EDT 05/08/2023 1:47 PM EDT us Rolanda Thakur MD LAB BLOOD ORDERABLES Final Result Performing Organization Address [facility]/ZIP Co de Phone Number [facility] [address] [place] [phone] * (ABNORMAL) Basic Metabolic Panel (05/08/2023 11:04 AM EDT) Sodium 137 135 - 145 mmol/L [facility] Potassium 4.4 3.3 - 5.1 mmol/L [facility] Chloride 108 96 - 108 mmol/L [facility] Carbon Dioxide 24 22 - 29 mmol/L [facility] Anion Gap 9(L) 12 - 20 [facility] Urea Nitrogen (BUN) 14 9 - 16 mg/dL [facility] Creatinine, Serum 1.03 0.5 - 1.4 mg/dL [facility] Estimated Glomerular Filt Rate 53 [facility] Comment:NOTE: For -Am erican individuals, multiply the result by 1.210.Chronic Kidney Disease: Estimated GFR < 60 mL/min/1.27h0Kfvbtm Kidney Disease: Estimated GFR < 15 mL/min/1.73m2 Glucose 208(H) 60 - 115 mg/dL [facility] Calcium 10.1 8.4 - 10.2 mg/dL [facility] Blood Venous blood specimen / Unknown 05/08/2023 11:04 AM EDT 05/08/2023 1:47 PM EDT us Rolanda Thakur MD LAB BLOOD ORDERABLES Final Result [facility] [address] [place] [phone] [phone] * (ABNORMAL) CBC auto differential (05/08/2023 11:04 AM EDT) White Blood Count 8.6 4.8 - 10.8 X10*3/uL [facility] Red Blood Count 4.27 4.20 - 5.50 X10*6/uL [facility] Hemoglobin 12.6 12.0 - 16.0 g/dl [facility] Hematocrit 37.9 37.0 - 47.0 % [facility] Mean Corpuscular Volume 88.8 80.0 - 98.0 fL [facility] Mean Corpuscular Hemoglobin 29.5 27.0 - 33.0 pg [facility] Mean Corpuscular HGB Conc 33.2 31.0 - 35.0 g/dl [facility] Red Cell Distribution Width 13.0 11.0 - 16.0 % [facility] Platelet Count 266 160 - 400 X10*3/uL [facility] Mean Platelet Volume 9.5 9.4 - 12.3 fL [facility] Neutrophils Percent Auto 50.3 45 - 73 % [facility] Imm Gran Pct Auto 0.3 0.0 - 0.4 % [facility] Lymphocytes Percent Auto 33.4 20 - 40 % [facility] Monocytes Percent Auto 7.0 2 - 11 % [facility] Eosinophils Percent Auto 7.8(H) 0 - 4 % [facility] Basophils Percent Auto 1.2 0 - 2 % [facility] NRBC Pct Auto 0.0 0.0 - 0.2 /100WBC [facility] Neutrophils Absolute Auto 4.3 2.0 - 8.3 x10*3/uL [facility] Imm Gran Abs Auto 0.03 0.00 - 0.03 X10*3/uL [facility] Lymphocytes Absolute Auto 2.9 1.2 - 4.9 X10*3/uL [facility] Monocytes Absolute Auto 0.6 0.1 - 1.2 X10*3/uL [facility] Eosinophils Absolute Auto 0.7(H) 0.0 - 0.4 X10*3/uL [facility] Basophils Absolute Auto 0.1 0.0 - 0.2 X10*3/uL [facility] NRBC Abs Auto 0.000 0.0 - 0.012 X10*3/uL [facility] Blood Venous blood specimen / Unknown 05/08/2023 11:04 AM EDT 05/08/2023 1:46 PM EDT Rolanda Thakur MD LAB BLOOD ORDERABLES Final Result [facility] [address] [place] [phone] documented in this encounter Visit Diagnoses Diagnosis Diabetic polyneuropathy associated with type 2 diabetes mellitus (CMS/HCC)- Primary documented in this encounter Care Teams Room Maid Relationship Specialty Start Date End Date Rolanda Thakur MD [address] [place] [phone] PCP - General Internal Medicine 09/19/22 documented as of this encounter
--- OUTSIDE RECORDS SUMMARY | 2024-10-31 19:02 | XMS_ITS | Encounter Summary ---
Author Organization [employer] Address [address] [place] [address] [place] [address] Care Team Providers Care Wastewater Design Engineer Name Role Phone Rolanda Thakur MD Primary Care Provider [phone]- [phone] Encounter Details Date Type Department Care Team ([facility] st Contact Info) Description 05/22/2024 Orders Only [facility] CHC MED & PEDS [address] [place] [address] Rolanda Thakur MD [address] [place] [address] Social History Tobacco Use Types Packs/Day Years [...] documented as of this encounter Care Teams Wastewater Design Engineer Relationship Specialty Start Date End Date Rolanda Thakur MD [address] [place] [address] PCP - General Internal Medicine 09/19/22 documented as of this encounter
--- OUTSIDE RECORDS SUMMARY | 2024-10-31 19:02 | XMS_ITS | Encounter Summary ---
Author Organization [employer] Address [address] [place] [address] Care Team Providers Care Clothing Busheler Name Role Phone Rolanda Thakur MD Primary Care Provider [phone]- [phone] Reason for Visit * Reason Onset Date Comments Created In Error 04/29/2024 Encounter Details Date Type Department Care Team (Late st Contact Info) Description 04/29/2024 Telephone [facility] MEDICINE [address] [place], [place] [phone] Rolanda Thakur MD [address] [place], [place] [phone] Created In Error Social History Tobacco Use [...] on filedocumented in this encounter Care Teams Clothing Busheler Relationship Specialty Start Date End Date Rolanad Thakur MD [address] [place] [address] PCP - General Internal Medicine 09/19/22 documented as of this encounter
--- OUTSIDE RECORDS SUMMARY | 2024-10-31 19:02 | XMS_ITS | Encounter Summary ---
Author Organization [employer] Address [address] [place] [address] [place] [address] Care Team Providers Care Director Of Purchasing Name Role Phone Rolanda Thakur MD Primary Care Provider [phone]- [phone] Encounter Details Date Type Department Care Team ([facility] st Contact Info) Description 03/28/2024 Orders Only [facility] CHC MED & PEDS [address] [place], [place] [phone] Karen Alcantar MD [address] [place] [address] Social History Tobacco Use Types Packs/Day Years [...] in this encounter Care Teams Director Of Purchasing Relationship Specialty Start Date End Date Rolanda Thakur MD [address] [place] [address] PCP - General Internal Medicine 09/19/22 documented as of this encounter
--- OUTSIDE RECORDS SUMMARY | 2024-10-31 19:02 | XMS_ITS | Encounter Summary ---
Author Organization [email or web address] Address [address] [place] [address] [place] [address] Care Team Providers Care Vending Machine Collector Name Role Phone Rolanda Thakur MD Primary Care Provider [phone]- [phone] Reason for Visit * Reason Onset Date Comments Referral 09/29/2022 Encounter Details Date Type Department Care Team ([facility] st Contact Info) Description 09/29/2022 Telephone [facility] CHC MED & PEDS [address] [place] [address] Rolanda Thakur MD [address] [place] [address] Referral Social History Tobacco Use Types Packs/Day [...] to fax order to Dr Dempsey on [phone] Dempsey's office on [phone]. Will forward message to provider. RN called Roxanne and gave her the phone and fax number to Dr Dempsey's office and also to f/u when EMG order is placed by PCP. * Telephone Encounter - Machelle Adam RN - 10/03/2022 10:09 AM EST Return call placed to Haylie at [facility] neuroscience, spoke with Jumana who [...] 1:30 PM EST Tc from Haylie from [facility] med / rehab calling to inform they need more dx clarification for referral that was sent . and phone # [phone] documented in this encounter Plan of Treatment Not on file documented as of this encounter Visit Diagnoses Diagnosis Diabetic polyneuropathy associated with diabetes mellitus due to underlying condition (CMS/[facility])- Primary documented in this encounter Care Teams Vending Machine Collector Relationship Specialty Start Date End Date Rolanda Thakur MD [address] [place] [phone] PCP - General Internal Medicine 09/19/22 documented as of this encounter
--- OUTSIDE RECORDS SUMMARY | 2024-10-31 19:02 | XMS_ITS | Clinical Summary ---
Author Organization [facility] Address [address] [place], [place] [id number] Care Team Providers Care Bathhouse Attendant Name Role Phone Rahel Hough MD Primary Care Provider [phone] Allergies Active Allergy Reactions Criticality Noted Date [...] mg by mouth daily. 0 09/09/2020 Active [place]-3 Fatty Acids (FISH OIL) 1000 MG CAPS [...] age to complete this topic Care Teams Bathhouse Attendant Relationship Specialty Start Date End Date Rahel Hough MD [address] [facility] [place] [address] PCP - General Internal Medicine 11/20/20
--- OUTSIDE RECORDS SUMMARY | 2024-10-31 19:02 | XMS_ITS | Encounter Summary ---
Author Organization [employer] Address [address] [place] [address] [place] [address] Care Team Providers Care Studio Artist Name Role Phone Rolanda Thakur MD Primary Care Provider [phone]- [phone] Reason for Visit * Reason Onset Date Comments Referral 05/18/2023 Encounter Details Date Type Department Care Team ([facility] st Contact Info) Description 05/18/2023 Telephone [facility] CHC MED & PEDS [address] [place] [address] Rolanda Thakur MD [address] [place] [address] Referral Social History Tobacco Use Types Packs/Day [...] used to see Dr. Chad Dempsey from [facility] butnow the office doesn't take her [...] advise. Also sent you her response from [facility]. Thanks. * Telephone Encounter - Annabella Peña [...] to Specialty: (EMG) Dr nolasco Date&Time: N/a Razor Grinder: n/a Please call pt to clarify documented in this encounter Plan of Treatment Not on file documented as of this encounter Visit Diagnoses Not on filedocumented in this encounter Care Teams Studio Artist Relationship Specialty Start Date End Date Rolanda Thakur MD [address] [place] [address] PCP - General Internal Medicine 09/19/22 documented as of this encounter
--- OUTSIDE RECORDS SUMMARY | 2024-10-31 19:02 | XMS_ITS | Encounter Summary ---
Author Organization [employer] Address [address] [place] [address] [place] [address] Care Team Providers Care Tree Fruit And Nut Farming Supervisor Name Role Phone Rolanda Thakur MD Primary Care Provider Reason for Visit * Reason Onset Date Comments Medication Question 12/09/2022 Encounter Details Date Type Department Care Team ([facility] st Contact Info) Description 12/09/2022 Telephone [facility] CHC MED & PEDS [address] [place] [address] Rolanda Thakur MD [address] [place] [address] Medication Question Social History Tobacco Use Types [...] Miscellaneous Notes * Telephone Encounter - Hannah Richmond Asia - 12/09/2022 3:51 PM EDT Tc from [facility] requesting a clarification in new script for Synthroid 50 MCG tablet if dosage was sent incorrectly because in last script (levothyroxine (Synthroid) 150 MCG tablet) it cig243 MCG and New script is it 50 mcg so pharmacy is requesting some clarification Please contact Pharmacy at [phone] documented in this encounter Plan of Treatment Not on file documented as of this encounter Visit Diagnoses Not on filedocumented in this encounter Care Teams Tree Fruit And Nut Farming Supervisor Relationship Specialty Start Date End Date Rolanda Thakur MD [address] [place] [address] PCP - General Internal Medicine 09/19/22 documented as of this encounter
--- OUTSIDE RECORDS SUMMARY | 2024-10-31 19:02 | XMS_ITS | Encounter Summary ---
Author Organization [employer] Address [address] [place] [address] Care Team Providers Care Firebrick Layer Helper Name Role Phone Rolanda Thakur MD Primary Care Provider [phone]- [phone] Reason for Visit * Reason Onset Date Comments Call Back Request 10/31/2024 Encounter Details Date Type Department Care Team ([facility] st Contact Info) Description 10/31/2024 Telephone [facility] MEDICINE [address] [place] [address] Rolanda Thakur MD [address] [place] [address] Call Back Request Social History Tobacco Use [...] Telephone Encounter - Raz Manuel - 10/31/2024 4:59 PM EDT Tc from pt requesting call back to verify status on being transferred to DR. Castañeda. Please contact pt at [phone]. documented in this encounter Plan of Treatment Not on file documented as of this encounter Visit Diagnoses Not on filedocumented in this encounter Additional Health Concerns Assessment Noted Time PHQ-9 Depression Total Score: 2 05/13/20 24 9:24 AM EDT documented as of this encounter Care Teams Firebrick Layer Helper Relationship Specialty Start Date End Date Rolanda Thakur MD [address] [place] [address] PCP - General Internal Medicine 09/19/22 documented as of this encounter
--- OUTSIDE RECORDS SUMMARY | 2024-10-31 19:02 | XMS_ITS | Encounter Summary ---
Author Organization [employer] Address [address] [place] [address] Care Team Providers Care Barrel Marker Name Role Phone Rolanda Thakur MD Primary Care Provider [phone] Reason for Visit * Reason Onset Date Comments EKG 06/18/2024 Encounter Details Date Type Department Care Team ([facility] st Contact Info) Description 06/18/2024 Telephone [facility] CHC MED & PEDS [address] [place] [address] Rolanda Thakur MD [address] [place] [address] EKG Social History Tobacco Use Types Packs/Day [...] Given pt's symptoms, she would need a [facility] appointment to get the notes for our social services specialist to process the referral. * Telephone [...] should seek a neurology referral. She states a operator advised her to get a referral due to procedure done for cataracts might have struck a nerve and that might be were the headaches are coming from. * Telephone Encounter - Annabella Peña - 06/18/2024 4:03 PM EDT Tc from pt requesting status on order for EKG. Contact Paulette at [phone] documented in this encounter Plan of Treatment Not on file documented as of this encounter Visit Diagnoses Not on filedocumented in this encounter Additional Health Concerns Assessment Noted Time PHQ-9 Depression Total Score: 2 05/13/20 24 9:24 AM EDT documented as of this encounter Care Teams Barrel Marker Relationship Specialty Start Date End Date Rolanda Thakur MD [address] [place] [phone] PCP - General Internal Medicine 09/19/22 documented as of this encounter
--- OUTSIDE RECORDS SUMMARY | 2024-10-31 19:02 | XMS_ITS | Encounter Summary ---
Author Organization [employer] Address [address] [place] [address] 7 [place] [address] Care Team Providers Care Cogeneration Technician Name Role Phone Rolanda Thakur MD Primary Care Provider [phone]- [phone] Reason for Visit * Reason Comments Med Refill Encounter Details Date Type Department Care Team (Late st Contact Info) Description 12/28/[address] [facility] CHC MED & PEDS [address] [place] [address] Maren Hough MD [address] [place] [address] Type 2 diabetes mellitus without complication, without long-term current use of insulin ([facility]); Anxiety Social History Tobacco Use Types Packs/Day [...] complication, without long-term current use of insulin ([facility]) Anxiety Anxiety state, unspecified documented in this encounter Care Teams Cogeneration Technician Relationship Specialty Start Date End Date Rolanda Thakur MD [address] [place] [address] PCP - General Internal Medicine 09/19/22 documented as of this encounter
--- OUTSIDE RECORDS SUMMARY | 2024-10-31 19:02 | XMS_ITS | Encounter Summary ---
Author Organization [employer] Address [address] [facility] 7 [place] [address] Care Team Providers Care Bowstring Maker Name Role Phone Rolanda Thakur MD Primary Care Provider [phone]- [phone] Reason for Visit * Reason Onset Date Comments Nurse Triage 08/05/2024 Encounter Details Date Type Department Care Team ([facility] st Contact Info) Description 08/05/2024 Telephone [facility] MEDICINE [address] [place] [address] Rolanda Thakur MD [address] [place] [address] Nurse Triage Social History Tobacco Use Types [...] 1145am. Pt is advised to come to [facility] today which is open till 8pm and also open 830am -800pm tomorrow. Pt agrees with this disposition. Pt will [facility] come [facility] today[facility], if unable will come tomorrow. [...] documented as of this encounter Care Teams Bowstring Maker Relationship Specialty Start Date End Date Rolanda Thakur MD [address] [place] [address] PCP - General Internal Medicine 09/19/22 documented as of this encounter
--- OUTSIDE RECORDS SUMMARY | 2024-10-31 19:02 | XMS_ITS | Encounter Summary ---
Author Organization [email or web address] Address [address] [place] [address] Care Team Providers Care Crown Ironer Name Role Phone Rolanda Thakur MD Primary Care Provider [phone]- [phone] Reason for Visit * Reason Onset Date Comments Med Refill 04/04/2024 Encounter Details Date Type Department Care Team (Late st Contact Info) Description 04/04/2024 Telephone [facility] MEDICINE [address] [place] [address] Rolanda Thakur MD [address] [place] [address] Med Refill Social History Tobacco Use Types [...] 5 mg tablets To be sent to: [facility] documented in this encounter Plan of Treatment Not on file documented as of this encounter Visit Diagnoses Diagnosis Anxiety- Primary Anxiety state, unspecified documented in this encounter Care Teams Crown Ironer Relationship Specialty Start Date End Date Rolanda Thakur MD [address] [place] [address] PCP - General Internal Medicine 09/19/22 documented as of this encounter
--- OUTSIDE RECORDS SUMMARY | 2024-10-31 19:02 | XMS_ITS | Encounter Summary ---
Author Organization [employer] Address [address] [place] [address] [place] [address] Care Team Providers Care Product Marketing Director Name Role Phone Rolanda Thakur MD Primary Care Provider Encounter Details Date Type Department Care Team ([facility] st Contact Info) Description 05/16/2023 Orders Only [facility] MED & PEDS [address] [place] [address] Rolanda Thakur MD [address] [place] [address] Bilateral leg paresthesia (Primary Dx); Anxiety; Diabetic [...] Vitamin B6 16.0 2.1 - 21.7 ng/mL [facility] Comment:Vitamin supplementat ion within 24 hours prior toblood draw may affect the accuracy of the results.This test was developed and its analytical performancecharacteristics have been determined by [employer] [place], [place]. It hasnot been cleared or approved by the U.S. Food and DrugAdministration. This assay has been validated pursuantto the CLIA regulations and is used for clinicalpurposes.THIS TEST WAS PERFORMED AT:[facility] [employer] [place] [address]LBJLFWFTHEO PEDERSEN MD,PHD Blood Venous blood specimen / Unknown 10/10/2023 12:50 PM EST 10/10/2023 2:41 PM EST us Rolanda Thakur MD LAB BLOOD ORDERABLES Final Result [facility] [address] [place] [address] [phone] * (ABNORMAL) Vitamin B12 (10/10/2023 12:50 PM EST) Vitamin B12 1,388(H) 200 - 900 pg/mL [facility] Comment:NORMAL 200-900 PG/ML INDETERMINATE 160-199 PG/ML DEFICIENT < 160 PG/ML Blood Venous blood specimen / Unknown 10/10/2023 12:50 PM EST 10/10/2023 2:41 PM EST Rolanda Thakur MD LAB BLOOD ORDERABLES Final Result Performing Organization Address City/[facility]/ZIP Co de Phone Number [facility] [address] [place] [address] [phone] * TSH W/Reflex to FT4 (10/10/2023 12:50 PM EST) Pathologist [facility] TSH reflex Free T4 0.35 0.32 - 4.0 uIU/mL [facility] Blood 10/10/2023 12:5 0 PM EST 10/10/2023 2:41 PM EST us Rolanda Thakur MD LAB BLOOD ORDERABLES Final Result Performing Organization Address City/[facility]/ZIP Co de Phone Number [facility] [address] [place] [phone] * (ABNORMAL) CBC auto differential (10/10/2023 12:50 PM EST) White Blood Count 8.0 4.8 - 10.8 X10*3/uL [facility] Red Blood Count 4.19(L) 4.20 - 5.50 X10*6/uL [facility] Hemoglobin 12.3 12.0 - 16.0 g/dl [facility] Hematocrit 36.6(L) 37.0 - 47.0 % [facility] Mean Corpuscular Volume 87.4 80.0 - 98.0 fL [facility] Mean Corpuscular Hemoglobin 29.4 27.0 - 33.0 pg [facility] Mean Corpuscular HGB Conc 33.6 31.0 - 35.0 g/dl [facility] Red Cell Distribution Width 12.8 11.0 - 16.0 % [facility] Platelet Count 252 160 - 400 X10*3/uL [facility] Mean Platelet Volume 9.5 9.4 - 12.3 fL [facility] Neutrophils Percent Auto 55.5 45 - 73 % [facility] Imm Gran Pct Auto 0.4 0.0 - 0.4 % [facility] Lymphocytes Percent Auto 31.3 20 - 40 % [facility] Monocytes Percent Auto 6.0 2 - 11 % [facility] Eosinophils Percent Auto 5.9(H) 0 - 4 % [facility] Basophils Percent Auto 0.9 0 - 2 % [facility] NRBC Pct Auto 0.0 0.0 - 0.2 /100WBC [facility] Neutrophils Absolute Auto 4.5 2.0 - 8.3 x10*3/uL [facility] Imm Gran Abs Auto 0.03 0.00 - 0.03 X10*3/uL [facility] Lymphocytes Absolute Auto 2.5 1.2 - 4.9 X10*3/uL [facility] Monocytes Absolute Auto 0.5 0.1 - 1.2 X10*3/uL [facility] Eosinophils Absolute Auto 0.5(H) 0.0 - 0.4 X10*3/uL [facility] Basophils Absolute Auto 0.1 0.0 - 0.2 X10*3/uL [facility] NRBC Abs Auto 0.000 0.0 - 0.012 X10*3/uL [facility] Blood Venous blood specimen / Unknown 10/10/2023 12:50 PM EST 10/10/2023 2:41 PM EST us Rolanda Thakur MD LAB BLOOD ORDERABLES Final Result [facility] [address] [place] [address] [phone] documented in this encounter Visit Diagnoses Diagnosis Bilateral leg paresthesia- Primary Disturbance of skin sensation Anxiety Anxiety state, unspecified Diabetic polyneuropathy associated with type 2 diabetes mellitus ([facility]) documented in this encounter Care Teams Product Marketing Director Relationship Specialty Start Date End Date Rolanda Thakur MD [address] [place] [phone] PCP - General Internal Medicine 09/19/22 documented as of this encounter
--- OUTSIDE RECORDS SUMMARY | 2024-10-31 19:02 | XMS_ITS | Encounter Summary ---
Author Organization [employer] Address [address] [place] [address] [place] [address] Care Team Providers Care Water System Operator Name Role Phone Rolanda Thakur MD Primary Care Provider Reason for Visit * Reason Onset Date Comments Medication Question 12/08/2022 Encounter Details Date Type Department Care Team ([facility] st Contact Info) Description 12/08/2022 Telephone [facility] CHC MED & PEDS [address] [place] [address] Rolanda Thakur MD [address] [place] [address] Medication Question Social History Tobacco Use Types [...] on filedocumented in this encounter Care Teams Water System Operator Relationship Specialty Start Date End Date Rolanda Thakur MD [address] [place] [address] PCP - General Internal Medicine 09/19/22 documented as of this encounter
--- OUTSIDE RECORDS SUMMARY | 2024-10-31 19:02 | XMS_ITS | Encounter Summary ---
Author Organization [employer] Address [address] [place] [phone] Care Team Providers Care Dog License Officer Supervisor Name Role Phone Rolanda Thakur MD Primary Care Provider [phone]- [phone] Reason for Referral * Consultation (Routine) - Closed Specialty Diagnoses / Procedures Referred By Freddy t Referred To Contact Chiropractic Medicine Diagnoses Chronic left-sided low back pain with left-sided sciatica Rolanda Thakur MD [address] [place] [address] Phone: tel: fax: [facility] fax: Referral ID Status Reason Start Date Expiration Date V isits Requested Visits Authorized [id number] Closed Specialty Services Required 08/08/2024 08/08/2025 1 1 * Consultation (Routine) - Closed Specialty Diagnoses / Procedures Referred By Freddy t Referred To Contact Physical Therapy Diagnoses Chronic left-sided low back pain with left-sided sciatica Rolanda Thakur MD [address] [place] [address] Phone: tel: fax: [facility] Physical Therapy [address] [place] [address] Phone: tel: fax: Referral ID Status Reason Start Date Expiration Date V isits Requested Visits Authorized [id number] Closed Specialty Services Required 08/05/2024 08/05/2025 1 1 * Consultation (Routine) - Closed Specialty Diagnoses / Procedures Referred By Freddy meadows Referred To Contact Chiropractic Medicine Diagnoses Chronic left-sided low back pain with left-sided sciatica Rolanda Thakur MD [address] [place] [address] Phone: tel: fax: Referral ID Status Reason Start Date Expiration Date V isits Requested Visits Authorized [id number] Closed Specialty Services Required 08/02/2024 08/02/2025 1 1 Encounter Details Date Type Department Care Team ([facility] Contact Info) Description 08/02/2024 Orders Only [facility] CHC MED & PEDS [address] [place] [address] Rolanda Thakur MD [address] [place] [address] Chronic left-sided low back pain with left-sided [...] Adult Primary Care ?[address] ? [place] [address] ?XRay Report ? Signed ? Patient: Cook,Angely ?MR#: [id number] ? : 1950 ?Acct:[id number] ? Age/Sex: 74 / F ?ADM Date: 08/12/24 ? Loc: HO.HMGCX ? Attending Dr: Wyatt Golden MD ? Ordering Physician: Wyatt Golden MD ?? Date of Service: 08/12/24 ?? Procedure(s): XR cervical spine 5V ?? Accession Number(s): [id number] ? cc: Rolanda Thakur MD; Wyatt Golden [...] DD/ 0950 ? TD/TT: 08/12/24 1000 ? External Relations Manager: ? Procedure Note Darrell Fonseac - 09/02/2024 [facility] [address] [place], [place] [address] XRay Report Signed Patient: Zion PinedaJean-Paul#: [id number] : 1Acct:[id number] Age/Sex: 74 / FADM Date: 08/12/24 Loc: HO.HMGCX Attending Dr: Wyatt Golden MD Ordering Physician: Wyatt Golden MD Date of Service: 08/12/24 Procedure(s): XR cervical spine 5V Accession Number(s): [id number] cc: Rolanda Thakur MD; Wyatt Golden MD [...] by: Yuridia Becerra MD 09/02/2024 11:21 AM [facility] Dictated By: Yuridia Becerra MD Signed By: <Electronically signed by Yuridia Becerra MD in OV> 09/02/24 1121 DD/ 0950 TD/TT: 08/12/24 1000 External Relations Manager: us Wyatt Mcdonald MD IMG XR PROCEDURES Iftikhar mecca Result - Final documented in this encounter Visit Diagnoses Diagnosis Chronic left-sided low back pain with left-sided sciatica- Primary documented in this encounter Additional Health Concerns Assessment Noted Time PHQ-9 Depression Total Score: 2 05/13/20 24 9:24 AM EDT documented as of this encounter Care Teams Dog License Officer Supervisor Relationship Specialty Start Date End Date Rolanda Thakur MD [address] [place] [phone] PCP - General Internal Medicine 09/19/22 documented as of this encounter
--- OUTSIDE RECORDS SUMMARY | 2024-10-31 19:02 | XMS_ITS | Encounter Summary ---
Author Organization [employer] Address [address] [facility] 7 [place] [address] Care Team Providers Care New Car Driver Name Role Phone Rolanda Thakur MD Primary Care Provider [phone]- [phone] Reason for Visit * Reason Onset Date Comments Nurse Triage 04/04/2024 Encounter Details Date Type Department Care Team (Late st Contact Info) Description 04/04/2024 Telephone [facility] MEDICINE [address] [place] [address] Rolanda Thakur MD [address] [place] [address] Nurse Triage Social History Tobacco Use Types [...] pt. She states that she went to [facility] ED for Anxiety panic attacks on 03/30/24- [...] got treated horribly by the staff at [facility] and she will never go there again. [...] care coordinators so that they can get [facility] ED notes from 03/30/24 Ed visit into pt. Chart and any labs, EKG's etc.. into pt. Chart for visit on 04/05/24 at 315pm. Protocol Used: Anxiety and Panic Attack (Adult) Protocol-Based Disposition: Go to ED/[facility] Now (or to Office with PCP Approval)- [...] on filedocumented in this encounter Care Teams New Car Driver Relationship Specialty Start Date End Date Rolanda Thakur MD [address] [place] [phone] PCP - General Internal Medicine 09/19/22 documented as of this encounter
--- OUTSIDE RECORDS SUMMARY | 2024-10-31 19:02 | XMS_ITS ---
Author Name [facility] Organization Unknown Encounters Encounter Type Encounter Reason Primary Diagnosis Location Date Ambulatory [facility] [place] 01/31/2023
--- OUTSIDE RECORDS SUMMARY | 2024-10-31 19:02 | XMS_ITS | Encounter Summary ---
Author Organization [employer] Address [address] [place] [address] [place] [address] Care Team Providers Care Oracle Data Warehouse Developer Name Role Phone Rolanda Thakur MD Primary Care Provider [phone]- [phone] Reason for Visit * Reason Comments Med Refill Encounter Details Date Type Department Care Team (Late st Contact Info) Description 05/20/2024 Refill [facility] CHC MED & PEDS [address] [place] [address] Rolanda Thakur MD 505 [place] [address] Diabetic polyneuropathy associated with type 2 diabetes mellitus ([facility]) Social History Tobacco Use Types [...] documented as of this encounter Care Teams Oracle Data Warehouse Developer Relationship Specialty Start Date End Date Rolanda Thakur MD [address] [place] [address] PCP - General Internal Medicine 09/19/22 documented as of this encounter
--- OUTSIDE RECORDS SUMMARY | 2024-10-31 19:02 | XMS_ITS | Encounter Summary ---
Author Organization [employer] Address [address] [facility] 7 [place] [address] Care Team Providers Care Buyer Broker Name Role Phone Rolanda Thakur MD Primary Care Provider [phone]- [phone] Reason for Visit * Reason Onset Date Comments Durable Medical Equipment 04/29/2024 Encounter Details Date Type Department Care Team (Late st Contact Info) Description 04/29/2024 Telephone [facility] MEDICINE [address] [place] [address] Rolanda Thakur MD [address] [place] [address] Durable Medical Equipment Social History Tobacco Use [...] - 04/29/2024 3:34 PM EDT Tc from [facility] stating pt is requesting blood pressure monitor but they don't have a script. If any questions you can contact [employer] at [phone]. documented in this encounter Plan of Treatment Not on file documented as of this encounter Visit Diagnoses Not on filedocumented in this encounter Care Teams Buyer Broker Relationship Specialty Start Date End Date Rolanda Thakur MD [address] [place] [address] PCP - General Internal Medicine 09/19/22 documented as of this encounter
--- OUTSIDE RECORDS SUMMARY | 2024-10-31 19:02 | XMS_ITS | Encounter Summary ---
Author Organization [employer] Address [address] [place] [address] [place] [address] Care Team Providers Care Spout Tender Name Role Phone Rolanda Thakur MD Primary Care Provider +1- [phone] Reason for Visit * Reason Onset Date Comments Referral 07/31/2024 Encounter Details Date Type Department Care Team ([facility] Contact Info) Description 07/31/2024 Telephone [facility] CHC MED & PEDS [address] [place] [address] Rolanda Thakur MD [address] [place] [address] Referral Social History Tobacco Use Types Packs/Day [...] Hirsch. Referaal was requested on 07/13/24 [facility] documented in this encounter Plan of Treatment Not on file documented as of this encounter Visit Diagnoses Not on filedocumented in this encounter Additional Health Concerns Assessment Noted Time PHQ-9 Depression Total Score: 2 05/13/20 24 9:24 AM EDT documented as of this encounter Care Teams Spout Tender Relationship Specialty Start Date End Date Rolanda Thakur MD [address] [place] [address] PCP - General Internal Medicine 09/19/22 documented as of this encounter
--- OUTSIDE RECORDS SUMMARY | 2024-10-31 19:02 | XMS_ITS | Encounter Summary ---
Author Organization [employer] Address [address] [place] [address] [place] [address] Care Team Providers Care Facilitator Name Role Phone Rolanda Thakur MD Primary Care Provider +1- [phone] Reason for Referral * Imaging (Routine) - Closed Specialty Diagnoses / Procedures Referred By Contac t Referred To Contact Radiology Diagnoses Hyponatremia Decreased GFR Procedures US RENAL BI Rolanda Thakur MD [address] [place] [address] Phone: tel: fax: [address] Phone: tel: fax: Referral ID Status Reason Start Date Expiration Date Visits Re quested Visits Authorized [id number] Closed 07/18/2024 07/18/2025 1 0 Encounter Details Date Type Department Care Team (Late st Contact Info) Description 07/09/2024 Orders Only [facility] CHC MED & PEDS [address] [place], [place] [phone] Rolanda Thakur MD [address] [place] [address] Hyponatremia (Primary Dx); Decreased GFR Social History [...] documented as of this encounter Care Teams Facilitator Relationship Specialty Start Date End Date Rolanda Thakur MD [address] [place] [address] PCP - General Internal Medicine 09/19/22 documented as of this encounter
--- OUTSIDE RECORDS SUMMARY | 2024-10-31 19:02 | XMS_ITS | Encounter Summary ---
Author Organization [employer] Address [address] [place] [address] Care Team Providers Care Distance Education Coordinator Name Role Phone Rolanda Thakur MD Primary Care Provider +1- [phone] Reason for Visit * Reason Onset Date Comments Medication Question 04/04/2024 Encounter Details Date Type Department Care Team (Late st Contact Info) Description 04/04/2024 Telephone [facility] MEDICINE [address] [place] [address] Rolanda Thakur MD [address] [place], [place] [phone] Medication Question Social History Tobacco Use Types [...] on filedocumented in this encounter Care Teams Distance Education Coordinator Relationship Specialty Start Date End Date Rolanda Thakur MD [address] [place] [address] PCP - General Internal Medicine 09/19/22 documented as of this encounter
--- OUTSIDE RECORDS SUMMARY | 2024-10-31 19:02 | XMS_ITS | Encounter Summary ---
Author Organization [employer] Address [address] [place] [address] [place] [address] Care Team Providers Care Medical Director Name Role Phone Rolanda Thakur MD Primary Care Provider Encounter Details Date Type Department Care Team ([facility] st Contact Info) Description 01/22/2024 Orders Only [facility] CHC MED & PEDS [address] [place] [address] Rolanda Thakur MD [address] [place] [address] Benign essential hypertension Social History Tobacco Use [...] AM EDT Narrative 02/19/2024 12:38 PM EDT ?[facility] ?[address] ?[place] [address] ?XRay Report ? Signed ? Patient: Angely Pineda ?MR#: [id number] ? : 1950 ?Acct:[id number] ? Age/Sex: 73 / F ?ADM Date: 02/19/24 ? Loc: HO.HHCX ? Attending Dr: Migdalia PALMER ? Ordering Physician: Migdalia Loza ?? Date of Service: 02/19/24 ?? Procedure(s): XR toe RT min 2V ?? Accession Number(s): [id number] ? cc: Migdalia Loza ? EXAMINATION: ?? [...] 1234 ? DD/ 112 ? TD/TT: ? Telemetry Registered Nurse: SS ? Procedure Note Darrell Fonseca - 02/19/2024 [facility] [address] [place] [address] XRay Report Signed Patient: Angely Pineda#: [id number] : 1Acct:[id number] Age/Sex: 73 / FADM Date: 02/19/24 Loc: HO.HHCX Attending Dr: Migdalia PALMER Ordering Physician: Migdalia Loza Date of Service: 02/19/24 Procedure(s): XR toe RT min 2V Accession Number(s): [id number] cc: Migdalia Loza EXAMINATION: BILATERAL TOES CLINICAL [...] in OV> 02/19/24 1234 DD/ 1122 TD/TT: Telemetry Registered Nurse: SS Migdalia PALMER IMG XR PROCEDURES Edited Resul t - Final documented in this encounter Visit Diagnoses Diagnosis Benign essential hypertension Essential hypertension, benign documented in this encounter Care Teams Medical Director Relationship Specialty Start Date End Date Rolanda Thakur MD [address] [place] [address] PCP - General Internal Medicine 09/19/22 documented as of this encounter
--- OUTSIDE RECORDS SUMMARY | 2024-10-31 19:02 | XMS_ITS | Encounter Summary ---
Author Organization [employer] Address [address] [place] [address] 7 [place] [address] Care Team Providers Care Tool Designer Apprentice Name Role Phone Rolanda Thakur MD Primary Care Provider +1- [phone] Encounter Details Date Type Department Care Team (Late st Contact Info) Description 04/08/2024 Orders Only [facility] [address] [place], [place] [phone] Rolnada Thakur MD [address] [place] [address] UTI symptoms (Primary Dx) Social History Tobacco [...] Primary documented in this encounter Care Teams Tool Designer Apprentice Relationship Specialty Start Date End Date Rolanda Thakur MD [address] [place] [address] PCP - General Internal Medicine 09/19/22 documented as of this encounter
--- OUTSIDE RECORDS SUMMARY | 2024-10-31 19:02 | XMS_ITS | Clinical Summary ---
Author Organization [facility] Address [address] [place] [address] Phone Care Team Providers Care Tuber Machine Operator Name Role Phone Rolanda Thakur MD Primary Care Provider +1 -[phone] Allergies Active Allergy Reactions Criticality Noted Date [...] is not allergic to Trimethoprim sulfamethoxazole Medications B complex tablet Take 1 tablet by [...] 1 (one) time each day. Active calcium carbonate/vitam in D3 (CALCIUM 500 + D ORAL) Take [...] aware that this will likely be an [id number] cost and feels as though she can afford it. I will review results and determine need for future follow-up. In the meantime she would like to hold off on statin therapy which I think is totally reasonable. Orders: ECG 12 lead Pure hypercholesterolemia 07/08/2024 Assessment & Plan (07/08/2024 4:42 PM EST): See plan above. Encounters Date Type Department Care Team Description 09/12/2024 Telephone [facility] [address] [address] Nikki Rawls MD Hypertension 09/07/2024 9:51 AM EST - 09/07/2024 11:59 PM EST Hospital Encounter [facility] Xray [address] [place] [address] Pain Discharge Disposition: Home or Self Care 09/07/2024 9:45 AM EST - 09/07/2024 11:59 PM EST Hospital Encounter [facility] [address] [place] [address] Pain Discharge Disposition: Home or Self Care 08/22/2024 Telephone [facility] [address] [address] scan 08/09/2024 11:25 AM EST - 08/09/2024 11:59 PM EST Hospital Encounter [facility] Scan [address] [place] [phone] Essential (primary) hypertension Discharge Disposition: Home or Self Care 08/02/2024 Telephone [facility] 154 300 [facility] [address] [place] [phone] iNkki Rawls MD Appointment (CT Coronary Calcium Scoring) from Last 3 Months Family History Medical History Relation Name Comments Heart failure Mother Other: unknown heart condition Sister Relation Name Status Comments Mother Sister Social History Tobacco Use Types Packs/Day Years Used Date Smoking Tobacco: Never Smokeless Tobacco: Never Alcohol Use Standard Drinks/Week Comments Yes 0 (1 standard drink = 0.6 oz pur e alcohol) rarely Comments Unknown Sex and Gender Information Value Date Recorded Sex Assigned at Female 07/31/2024 8:18 AM EST Legal Sex Female 2:05 PM EST Gender Identity Female 07/31/2024 8:18 AM EST Sexual Orientation Choose not to disclose 2023 8:18 AM EST Obstetrics History Last Filed Vital Signs Vital [...] 07/08/2024 2:10 PM EST Plan of Treatment Upcoming Encounters Date Type Department Care Team (Late st Contact Info) Description 12/10/2024 8:45 AM EDT Appointment [facility] [address] [phone] 02/13/2025 10:50 AM EDT Office Visit [facility] 154 300 [facility] [address] [place] [phone] Nikki Rawls MD [address] [place] [address] Health Maintenance Due Date Last Done Comments Diabetes: Annual Foot Exam 1961 Diabetes: Annual Retina Eye Exam 1961 Falls Risk Assessment 07/20/2022 Medicare Annual Wellness Visit 07/20/2022 Social Influencers of Health Screening 07/20/2022 Diabetes: Annual Urine Albumin-Creatinine Ratio (uACR) 10/04/2023 COVID-19 Vaccine ( season) 2024 07/10/2021, 11/04/2020 Diabetes: Blood Sugar Control Test (HGBA1C) 01/03/2025 07/06/2024 Depression Screening 05/13/2025 05/13/2024 Diabetes: Annual GFR (Glomerular Filtration Rate) 09/24/2025 09/24/2024, 07/17/2024, 07/09/2024, Additional history exists Hypertension/CHF/CAD Annual BMP Blood Test 09/24/2025 09/24/2024, 07/17/2024, 07/09/2024, Additional history exists Breast Cancer Screening 10/22/2025 [...] patient's age to complete this topic Meningococcal B Vacine Aged Out No lo nger eligible based on patient's age to complete [...] 08/09/2024 11:44 AM EST Essential (primary) hypertension [facility] SCREENING DIGITAL Routine 10/23/2023 9:44 AM EST Encounter for screening mammogram for malignant neoplasm of breast [facility] DEXA AXIAL SKELETON Routine 04/12/2023 7:46 AM [...] Signed Date: 09/09/2024 07:17 ET Workstation ID: [id number] Transcribed By: Self Edit Transcribed Date: 09/09/2024 [...] Signed Date: 09/09/2024 07:17 ET Workstation ID: [id number] Transcribed By: Self Edit Transcribed Date: 09/09/2024 07:11 ET us Jamel Gilbert DC IMG XR PROCEDURES Final Result * XR Thoracic Spine 2 Views (09/07/2024 [...] Signed Date: 09/09/2024 07:17 ET Workstation ID: [id number] Transcribed By: Self Edit Transcribed Date: 09/09/2024 [...] Signed Date: 09/09/2024 07:17 ET Workstation ID: [id number] Transcribed By: Self Edit Transcribed Date: 09/09/2024 07:11 ET us Jamel Gilbert DC IMG XR PROCEDURES Final Result * CT Head wo Contrast (08/09/2024 11:44 [...] Signed Date: 08/12/2024 10:43 ET Workstation ID: [id number] Transcribed By: Self Edit Transcribed Date: 08/12/2024 10:36 ET Narrative 08/12/2024 10:43 AM EST EXAMINATION: CT brain without contrast. COMPARISON: None. CLINICAL INDICATION: Uncontrolled hypertension. TECHNIQUE: 2.5 mm thin axial and reformatted 3 mm thin sagittal and coronal images of brain were obtained without contrast. Scanner: [employer] Soles 64 slice VCT Dose reduction technique: ASIR [...] of brain were obtained without contrast. Scanner: [employer] 64 slice VCT Dose reduction technique: ASIR [...] Signed Date: 08/12/2024 10:43 ET Workstation ID: [id number] Transcribed By: Self Edit Transcribed Date: 08/12/2024 10:36 ET us Karen Alcantar MD IMG CT PROCEDURES Final Resul t * [facility] SCREENING DIGITAL (10/23/2023 9:44 AM EST) Anatomical Region Laterality Modality Mammography 10/19/2023 2:21 PM EST Narrative 10/23/2023 9:44 AM EST [facility] Diagnostic Imaging Department [address] [place] [address] Patient: ??ANGELY PINEDA ?/Age/Sex: 1950 73 - F Unit#: ??[id number] ? Location/Status: ??SPDIMAM/REG CLI ? Mnemonic/Ordering Site: ??DIGSC/SPMAIN Ordering Physician: ??MAREN UREÑA MD [facility] Screening Digital - 10/21/23 - 0810 Report Status:Signed EXAM: [facility] Screening Digital EXAM DATE AND TIME: 10/21/2023 8:11 AM HISTORY: ??Screening. COMPARISON: ??10/12/22, 06/08/21, 03/04/20 TECHNIQUE: Bilateral digital breast tomosynthesis was performed in the CC and MLO projections. Computer aided detection with transOMIC 3D 3.1 was employed. TISSUE DENSITY: a. [...] by: ??MARIA GUADALUPE GOTTI MD Dic Date/Time: ??10/23/23 0944 Sign date/Time: ??10/23/23 0944 Procedure Note Maria Guadalupe Gotti MD - 04/08/2024 [facility] Diagnostic Imaging Department [address] [place] [address] Patient: ANGELY PINEDA YARA /Age/Sex: 1950 73 - F Unit#: [id number] Location/Status: [facility] CLI Mnemonic/Ordering Site: [facility] Ordering Physician: MAREN UREÑA MD [facility] Screening Digital - 10/21/23 - 0810 Report Status:Signed EXAM: [facility] Screening Digital EXAM DATE AND TIME: 10/21/2023 8:11 AM HISTORY: Screening. COMPARISON: 10/12/22, 06/08/21, 03/04/20 TECHNIQUE: Bilateral digital breast tomosynthesis was performed in the CCand MLO projections. Computer aided detection with transOMIC 3D 3.1was employed. TISSUE DENSITY: a. The [...] MD Dic Date/Time: 10/23/23943 Sign date/Time: 10/23/23943 us Maren Ureña MD IMG BI PROCEDURES Final Result * [facility] DEXA AXIAL SKELETON (04/12/2023 7:46 AM EDT) Anatomical Region Laterality Modality Mammography 04/11/2023 3:03 PM EDT Narrative 04/12/2023 7:46 AM EDT [facility] Diagnostic Imaging Department [address] [place] [address] Patient: ??ANGELY PINEDA ?/Age/Sex: 1950 - 72 - F Unit#: ??[id number] ? [facility] CLI ? Mnemonic/Ordering Site: ??MAMDEXAAX/SPMAM Ordering Physician: ??MAREN UREÑA MD [facility] Dexa Axial Skeleton - 04/11/231532 Report Status:Signed HISTORY: ??The patient is a [...] probability of hip fracture of 2.2%. Code 10184 Dictating Physician: ??GWENDOLYN BAHENA MD Electronically Signed by: ??GWENDOLYN BAHENA MD Dic Date/Time: ??04/12/23 0745 Sign date/Time: ??04/12/23 0746 Procedure Note Gwendolyn Bahena MD - 09/26/2023 [facility] Diagnostic Imaging Department [address] [place] [address] Patient: ANGELY PINEDA YARA Ochoa/Age/Sex: 1950 - 72 - F Unit#: [id number] Location/Status: SPDIMAM/REG CLI Mnemonic/Ordering Site: MAMDEXAAX/SPMAM Ordering Physician: MAREN UREÑA MD [facility] Dexa Axial Skeleton - 04/11/23 - 1533 Report Status:Signed HISTORY: The patient is a [...] density of the femurs bilaterally is 0.874 gm/iu1kvajq is 87% of that of young normals [...] probability of hip fracture of 2.2%. Code 49837 Dictating Physician: GWENDOLYN BAHENA MD Electronically Signed by: GWENDOLYN BAHENA MD Dic Date/Time: 04/12/2345 Sign date/Time: 04/12/2346 Maren Ureña MD IMG BI PROCEDURES Final Result from Last 3 Months or Most Recently Relevant to Health Maintenance Insurance [employer] MEDICARE Care Teams Tuber Machine Operator Relationship Specialty Start Date End Date Rolanda Thakur MD [address] [facility], [place] PCP - General 11/03/23
--- OUTSIDE RECORDS SUMMARY | 2024-10-31 19:02 | XMS_ITS | Encounter Summary ---
Author Organization [employer] Address [address] [facility] 7 [place] [address] Care Team Providers Care Beam Press Operator Name Role Phone Rolanda Thakur MD Primary Care Provider [phone]- [phone] Reason for Visit * Reason Onset Date Comments Results 03/29/2024 Encounter Details Date Type Department Care Team ([facility] st Contact Info) Description 03/29/2024 Telephone [facility] MEDICINE [address] [place] [address] Rolanda Thakur MD [address] [place], [place] [phone] Results Social History Tobacco Use Types Packs/Day [...] on filedocumented in this encounter Care Teams Beam Press Operator Relationship Specialty Start Date End Date Rolanda Thakur MD [address] [place] [phone] PCP - General Internal Medicine 09/19/22 documented as of this encounter
--- OUTSIDE RECORDS SUMMARY | 2024-10-31 19:02 | XMS_ITS | Encounter Summary ---
Author Organization [employer] Address [address] [place] [address] 7 [place] [address] Care Team Providers Care Assistant Producer Name Role Phone Rolanda Thakur MD Primary Care Provider [phone]- [phone] Reason for Visit * Reason Comments Med Refill Encounter Details Date Type Department Care Team ([facility] st Contact Info) Description 01/05/2023 Refill [facility] MED & PEDS [address] [place] [address] Karoline Castañeda MD [address] [place] [address] Social History Tobacco Use Types Packs/Day Years [...] on filedocumented in this encounter Care Teams Assistant Producer Relationship Specialty Start Date End Date Rolanda Thakur MD [address] [place] [phone] PCP - General Internal Medicine 09/19/22 documented as of this encounter
--- OUTSIDE RECORDS SUMMARY | 2024-10-31 19:03 | XMS_ITS | Encounter Summary ---
Author Organization [employer] Address [address] [place] [address] Care Team Providers Care Print Production Associate Name Role Phone Rolanda Thakur MD Primary Care Provider [phone]- [phone] Reason for Visit * Reason Onset Date Comments Call Back Request 11/17/2023 Encounter Details Date Type Department Care Team ([facility] st Contact Info) Description 11/17/2023 Telephone [facility] MEDICINE [address] [place] [address] Rolanda Thakur MD [address] [place] [address] Call Back Request Social History Tobacco Use [...] Message sent to PCP for review through [employer] portal * Telephone Encounter - Jenny Neff - 11/17/2023 8:06 AM EDT Tc from pt requesting a call back pt stated needs more information and clarifications 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 Please contact pt. documented in this encounter Plan of Treatment Not on file documented as of this encounter Visit Diagnoses Not on filedocumented in this encounter Care Teams Print Production Associate Relationship Specialty Start Date End Date Rolanda Thakur MD [address] [place] [phone] PCP - General Internal Medicine 09/19/22 documented as of this encounter
--- OUTSIDE RECORDS SUMMARY | 2024-10-31 19:03 | XMS_ITS | Encounter Summary ---
Author Organization [employer] Address [address] [place] [address] Care Team Providers Care Pediatric Critical Care Nurse Name Role Phone Rolanda Thakur MD Primary Care Provider [phone]- [phone] Reason for Visit * Reason Onset Date Comments Nurse Triage 01/03/2024 Encounter Details Date Type Department Care Team (Late st Contact Info) Description 01/03/2024 Telephone [facility] MED[facility]INE [address] [place] [address] Rolanda Thakur MD [address] [place] [address] Nurse Triage Social History Tobacco Use Types [...] on filedocumented in this encounter Care Teams Pediatric Critical Care Nurse Relationship Specialty Start Date End Date Rolanda Thakur MD [address] [place] [phone] PCP - General Internal Medicine 09/19/22 documented as of this encounter
--- OUTSIDE RECORDS SUMMARY | 2024-10-31 19:03 | XMS_ITS | Encounter Summary ---
Author Organization [employer] Address [address] [place] [address] Care Team Providers Care Primary Counselor Name Role Phone Rolanda Thakur MD Primary Care Provider +1- [phone] Encounter Details Date Type Department Care Team ([facility] st Contact Info) Description 12/28/2023 Orders Only [facility] CHC MED & PEDS [address] [place] [address] Rolanda Thakur MD [address] [place] [address] Social History Tobacco Use Types Packs/Day Years [...] on filedocumented in this encounter Care Teams Primary Counselor Relationship Specialty Start Date End Date Rolanda Thakur MD [address] [place] [address] PCP - General Internal Medicine 09/19/22 documented as of this encounter
--- OUTSIDE RECORDS SUMMARY | 2024-10-31 19:03 | XMS_ITS | Encounter Summary ---
Author Organization [employer] Address [address] [facility] 7 [place] [address] Care Team Providers Care Manager Of Corporate Name Role Phone Rolanda Thakur MD Primary Care Provider [phone]- [phone] Reason for Visit * Reason Onset Date Comments Med Refill 08/19/2024 Encounter Details Date Type Department Care Team (Late st Contact Info) Description 08/19/2024 Refill [facility] [address] [place] [address] Wyatt Huizar MD [address] [place] [address] Neck pain on left side Social History [...] as of this encounter Care Teams Manager Of Corporate Relationship Specialty Start Date End Date Rolanda Thakur MD [address] [place] [phone] PCP - General Internal Medicine 09/19/22 documented as of this encounter
--- OUTSIDE RECORDS SUMMARY | 2024-10-31 19:03 | XMS_ITS | Encounter Summary ---
Author Organization [employer] Address [address] [place] [address] Care Team Providers Care City Attorney Name Role Phone Rolanda Thakur MD Primary Care Provider Encounter Details Date Type Department Care Team ([facility] st Contact Info) Description 08/18/2023 Orders Only [facility] CHC MED & PEDS [address] [place] [address] Rolanda Thakur MD [address] [place] [address] Social History Tobacco Use Types Packs/Day Years [...] filedocumented in this encounter Care Teams City Attorney Relationship Specialty Start Date End Date Rolanda Thakur MD [address] [place] [address] PCP - General Internal Medicine 09/19/22 documented as of this encounter
--- OUTSIDE RECORDS SUMMARY | 2024-10-31 19:03 | XMS_ITS | Encounter Summary ---
Author Organization [employer] Address [address] [place] [address] 7 [place] [address] Care Team Providers Care Road Contractor Name Role Phone Rolanda Thakur MD Primary Care Provider [phone]- [phone] Encounter Details Date Type Department Care Team ([facility] st Contact Info) Description 09/23/2024 Orders Only [facility] CHC MED & PEDS [address] [place] [address] Rolanda Thakur MD [address] [place] [address] Acquired hypothyroidism (Primary Dx); Benign essential hypertension [...] Type Priority Associated Diagnoses Orde r Schedule Metanephrines, Fractionated, LC/MS/MS, Random Urine Lab Routine Benign essential hypertension Expected: 09/23/2024 (Approximate), Expires: 09/23/2025 METANEPHRINES, FRAC., PL. FREE Lab Routine Benign essential hypertension Expected: 09/23/2024 (Approximate), Expires: 09/23/2025 documented as of this encounter Procedures Procedure Name Priority Date/Time Associated Diagnosis Comments BASIC METABOLIC PANEL, FASTING Routine 09/24/2024 1:40 PM EST Acquired hypothyroidism Benign essential hypertension TSH W/REFLEX TO FT4 Routine 09/24/2024 1 :40 PM EST Acquired hypothyroidism Benign essential hypertension ALDOSTERONE/PLASMA RENIN ACTIVITY RATIO, LC/MS/MS Routine 09/24/2024 1:40 PM EST Benign essential hypertension CBC WITH AUTO DIFFERENTIAL Routine 09/24/2024 1:40 PM EST Acquired hypothyroidism Benign essential hypertension documented in this encounter Results * Aldosterone/Plasma Renin Activity Ratio, LC/MS/MS (09/24/2024 1:40 PM EST) Aldosterone 2 see note ng/dL [facility] Comment:Unable to flag abnor mal result(s), please refer to reference range(s) below:Adult Reference Ranges for Aldosterone, LC/MS/MS: Upright 8:00 - 10:00 am < or = 28 ng/dL Upright 4:00 - 6:00 pm < or = 21 ng/dL Supine 8:00 - 10:00 am 3 - 16 ng/dLTHIS TEST WAS PERFORMED AT:[employer] [id number] [place] [id number] PEDERSEN MD,PHD Plasma Renin Activity 0.52 0.25 - 5.82 ng/mL/h [facility] Aldosterone/Renin Ratio 3.8 0.9 - 28.9 Ratio [facility] Comment:This test was develo ped and its analytical performancecharacteristics have been determined by [employer] [place], [place]. It hasnot been cleared or approved by the U.S. Food and DrugAdministration. This assay has been validated pursuantto the CLIA regulations and is used for clinicalpurposes.THIS TEST WAS PERFORMED AT:[employer] [id number] [place] [id number] PEDERSEN MD,PHD Blood Venous blood specimen / Unknown 09/24/2024 1:40 PM EST 09/24/2024 4:21 PM EST us Rolanda Thakur MD LAB BLOOD ORDERABLES Final Result [facility] [address] [place] [phone] * TSH W/Reflex to FT4 (09/24/2024 1:40 PM EST) TSH reflex Free T4 0.38 0.32 - 4.0 uIU/mL [facility] Blood Venous blood specimen / Unknown 09/24/2024 1:40 PM EST 09/24/2024 4:21 PM EST us Rolanda Thakur MD LAB BLOOD ORDERABLES Final Result Performing Organization Address [facility] Co de Phone Number [facility] [address] [place] [phone] * (ABNORMAL) Basic Metabolic Panel, Fasting (09/24/2024 1:40 PM EST) Sodium 139 135 - 145 mmol/L [facility] Potassium 3.8 3.3 - 5.1 mmol/L [facility] Chloride 106 96 - 108 mmol/L [facility] Carbon Dioxide 22 22 - 29 mmol/L [facility] Anion Gap 15 12 - 20 [facility] Urea Nitrogen (BUN) 13 9 - 16 mg/dL [facility] Creatinine, Serum 0.94 0.5 - 1.4 mg/dL [facility] Estimated Glomerular Filt Rate 58 [facility] Comment:Chronic Kidney Disea se: Estimated GFR < 60 mL/min/1.77z8Snlkvy Kidney Disease: Estimated GFR < 15 mL/min/1.73m2 Glucose Fasting 169(H) 60 - 99 mg/dL [facility] Comment:A fasting glucose of 126 mg/dl or greater on more than oneoccasion is considered diagnostic of diabetes. Calcium 9.9 8.4 - 10.2 mg/dL [facility] Blood Venous blood specimen / Unknown 09/24/2024 1:40 PM EST 09/24/2024 4:21 PM EST us Rolanda Thakur MD LAB BLOOD ORDERABLES Final Result Performing Organization Address [facility]/ZIP Co de Phone Number [facility] [address] [place] [phone] * (ABNORMAL) CBC auto differential (09/24/2024 1:40 PM EST) White Blood Count 7.0 4.8 - 10.8 X10*3/uL [facility] Red Blood Count 4.23 4.20 - 5.50 X10*6/uL [facility] Hemoglobin 12.6 12.0 - 16.0 g/dl [facility] Hematocrit 37.0 37.0 - 47.0 % [facility] Mean Corpuscular Volume 87.5 80.0 - 98.0 fL [facility] Mean Corpuscular Hemoglobin 29.8 27.0 - 33.0 pg [facility] Mean Corpuscular HGB Conc 34.1 31.0 - 35.0 g/dl [facility] Red Cell Distribution Width 12.8 11.0 - 16.0 % [facility] Platelet Count 251 160 - 400 X10*3/uL [facility] Mean Platelet Volume 9.5 9.4 - 12.3 fL [facility] Neutrophils Percent Auto 59.8 45 - 73 % [facility] Imm Gran Pct Auto 0.3 0.0 - 0.4 % [facility] Lymphocytes Percent Auto 26.1 20 - 40 % [facility] Monocytes Percent Auto 8.6 2 - 11 % [facility] Eosinophils Percent Auto 4.3(H) 0 - 4 % [facility] Basophils Percent Auto 0.9 0 - 2 % [facility] NRBC Pct Auto 0.0 0.0 - 0.2 /100WBC [facility] Neutrophils Absolute Auto 4.2 2.0 - 8.3 x10*3/uL [facility] Imm Gran Abs Auto 0.02 0.00 - 0.03 X10*3/uL [facility] Lymphocytes Absolute Auto 1.8 1.2 - 4.9 X10*3/uL [facility] Monocytes Absolute Auto 0.6 0.1 - 1.2 X10*3/uL [facility] Eosinophils Absolute Auto 0.3 0.0 - 0.4 X10*3/uL [facility] Basophils Absolute Auto 0.1 0.0 - 0.2 X10*3/uL [facility] NRBC Abs Auto 0.000 0.0 - 0.012 X10*3/uL [facility] Blood Venous blood specimen / Unknown 09/24/2024 1:40 PM EST 09/24/2024 4:21 PM EST Rolanda Thakur MD LAB BLOOD ORDERABLES Final Result [facility] [address] [place] [phone] documented in this encounter Visit Diagnoses Diagnosis Acquired hypothyroidism- Primary Unspecified hypothyroidism Benign essential hypertension Essential hypertension, benign documented in this encounter Additional Health Concerns Assessment Noted Time PHQ-9 Depression Total Score: 2 05/13/20 24 9:24 AM EDT documented as of this encounter Care Teams Road Contractor Relationship Specialty Start Date End Date Rolanda Thakur MD [address] [place] [phone] PCP - General Internal Medicine 09/19/22 documented as of this encounter
--- OUTSIDE RECORDS SUMMARY | 2024-10-31 19:03 | XMS_ITS | Encounter Summary ---
Author Organization [employer] Address 75 [facility] 7 [place] [address] Care Team Providers Care Insurance Job Titles Name Role Phone Rolanda Thakur MD Primary Care Provider +1- [phone] Encounter Details Date Type Department Care Team ([facility] st Contact Info) Description 10/23/[address] [facility] CHC MED & PEDS [address] [place], [place] [phone] Apple Britton, PharmD [address] [place] [address] Social History Tobacco Use Types Packs/Day Years [...] encounter Miscellaneous Notes * Telephone Encounter - Apple Britton PharmD - 10/23/2024 2:28 PM EST Contacted patient to schedule CDTM visit. Patient was upset to be called during school hours. Declined interest in meeting with me at this time, I don't need help managing my diabetes, I manage my own diabetes . Reports using Dexcom and still learning about it. May be willing to have a visit in the future ( November or summer ). Deferred CDTM referral to end of January 2025. Patient will beoutreached again at that time. documented in this encounter Plan of Treatment Not on file documented as of this encounter Visit Diagnoses Not on filedocumented in this encounter Additional Health Concerns Assessment Noted Time PHQ-9 Depression Total Score: 2 05/13/20 24 9:24 AM EDT documented as of this encounter Care Teams Insurance Job Titles Relationship Specialty Start Date End Date Rolanda Thakur MD [address] [place] [phone] PCP - General Internal Medicine 09/19/22 documented as of this encounter
--- OUTSIDE RECORDS SUMMARY | 2024-10-31 19:03 | XMS_ITS | Encounter Summary ---
Author Organization [employer] Address [address] [place] [address] Care Team Providers Care Graphics Intern Name Role Phone Rolanda Thakur MD Primary Care Provider +1- [phone] Reason for Visit * Reason Comments Med Refill Encounter Details Date Type Department Care Team (Late st Contact Info) Description 08/27/2024 Refill [facility] MEDICINE [address] [place] [address] Rolanda Thakur MD [address] [place], [place] [phone] Type 2 diabetes mellitus without complication, without long-term current use of insulin ([facility]) Social History Tobacco Use Types [...] complication, without long-term current use of insulin ([facility]) documented in this encounter Additional Health Concerns Assessment Noted Time PHQ-9 Depression Total Score: 2 05/13/20 24 9:24 AM EDT documented as of this encounter Care Teams Graphics Intern Relationship Specialty Start Date End Date Rolanda Thakur MD [address] [place] [address] PCP - General Internal Medicine 09/19/22 documented as of this encounter
--- OUTSIDE RECORDS SUMMARY | 2024-10-31 19:03 | XMS_ITS | Encounter Summary ---
Author Organization [employer] Address [address] [place] [address] Care Team Providers Care Rags Laborer Name Role Phone Rolanda Thakur MD Primary Care Provider +1- [phone] Encounter Details Date Type Department Care Team ([facility] st Contact Info) Description 10/27/2023 Orders Only [facility] CHC MED & PEDS [address] [place] [address] Bhavesh Yang, RN [address] [place], [place] Social History Tobacco Use Types Packs/Day Years [...] on filedocumented in this encounter Care Teams Rags Laborer Relationship Specialty Start Date End Date Rolanda Thakur MD [address] [place] [address] PCP - General Internal Medicine 09/19/22 documented as of this encounter
--- OUTSIDE RECORDS SUMMARY | 2024-10-31 19:03 | XMS_ITS | Encounter Summary ---
Author Organization [email or web address] Address [address] [place] [address] [place] [address] Care Team Providers Care Director Paid Media Name Role Phone Rolanda Thakur MD Primary Care Provider +1- [phone] Reason for Visit * Reason Comments Care Coordination CHW outreach for SDO H-patient declined to participate Encounter Details Date Type Department Care Team (Latest Contact Info) Description 10/14/2024 Patient Outreach [facility] CHC MED & PEDS [address] [place] [address] Rolanda Thakur MD [address] [place] [address] Care Coordination (CHW outreach for SDOH-patient declined to participate ) Social History Tobacco Use Types Packs/Day Years [...] AM EDT documented as of this encounter Progress Notes * Larry Garcia - 10/14/2024 2:46 PM EST CHW Larry Garcia, placed outbound call to patient for assistance with SDOH as a referral was received by the provider. Patient's name and were confirmed. Program information was provided to the patient. Patient declined to participate in program. Provided patient with direct contact information for future reference. documented in this encounter Plan of Treatment Not on file documented as of this encounter Visit Diagnoses Not on filedocumented in this encounter Additional Health Concerns Assessment Noted Time PHQ-9 Depression Total Score: 2 05/13/20 9:24 AM EDT documented as of this encounter Care Teams Director Paid Media Relationship Specialty Start Date End Date Rolanda Thakur MD [address] [place] [address] PCP - General Internal Medicine 09/19/22 documented as of this encounter
--- OUTSIDE RECORDS SUMMARY | 2024-10-31 19:03 | XMS_ITS | Encounter Summary ---
Author Organization [employer] Address 75 [facility] 7 [place] [address] Care Team Providers Care Intelligence Officer Name Role Phone Rolanda Thakur MD Primary Care Provider +1- [phone] Reason for Visit * Reason Onset Date Comments Nurse Triage 08/09/2024 Encounter Details Date Type Department Care Team (Late st Contact Info) Description 08/09/2024 Telephone [facility] MEDICINE [address] [place] [address] Rolanda Thakur MD [address] [place] [address] Nurse Triage Social History Tobacco Use Types [...] precautions and reasons to call back. Reviewed [facility] operating hours and that wait times vary. Protocol Used: Neck Pain or Stiffness (Adult) Protocol-Based Disposition: See in Office or Video Visit Today or Tomorrow Future Appointments Date Time Provider Department Center 08/10/2024 9:40 AM [facility] WALK-IN CLINIC 2 WALK-IN [facility] Insurance verified as active per Real Time Eligibility in [facility]. Positive Triage Question: * Tenderness in front [...] documented as of this encounter Care Teams Intelligence Officer Relationship Specialty Start Date End Date Rolanda Thakur MD [address] [place] [address] PCP - General Internal Medicine 09/19/22 documented as of this encounter
--- OUTSIDE RECORDS SUMMARY | 2024-10-31 19:03 | XMS_ITS | Encounter Summary ---
Author Organization [employer] Address [address] [place] [address] [place] [address] Care Team Providers Care Superintendent Drilling Name Role Phone Rolanda Thakur MD Primary Care Provider +1- [phone] Encounter Details Date Type Department Care Team (Late st Contact Info) Description 12/07/[address] [facility] MEDICINE [address] [place] [address] [phone] Rolanda Thakur MD [address] [place] [address] Social History Tobacco Use Types Packs/Day Years [...] on filedocumented in this encounter Care Teams Superintendent Drilling Relationship Specialty Start Date End Date Rolanda Thakur MD [address] [place] [address] PCP - General Internal Medicine 09/19/22 documented as of this encounter
--- OUTSIDE RECORDS SUMMARY | 2024-10-31 19:03 | XMS_ITS | Encounter Summary ---
Author Organization [employer] Address [address] [place] [address] Care Team Providers Care Receiving Room Clerk Name Role Phone Rolanda Thakur MD Primary Care Provider +1- [phone] Reason for Visit * Reason Onset Date Comments Medication Question 10/23/2023 Encounter Details Date Type Department Care Team (Late st Contact Info) Description 10/23/2023 Telephone [facility] MEDICINE [address] [place] [address] Rolanad Thakur MD [address] [place], [place] [phone] Medication Question Social History Tobacco Use Types [...] on filedocumented in this encounter Care Teams Receiving Room Clerk Relationship Specialty Start Date End Date Rolanda Thakur MD [address] [place] [address] PCP - General Internal Medicine 09/19/22 documented as of this encounter
--- OUTSIDE RECORDS SUMMARY | 2024-10-31 19:03 | XMS_ITS | Encounter Summary ---
Author Organization [employer] Address [address] [place] [address] [place] [address] Care Team Providers Care Forest Firefighter Name Role Phone Rolanda Thakur MD Primary Care Provider +1- [phone] Encounter Details Date Type Department Care Team (Late st Contact Info) Description 10/27/2023 Telephone [facility] MEDICINE [address] [place] [phone] Rolanda Thakur MD [address] [place] [address] Social History Tobacco Use Types Packs/Day Years [...] on filedocumented in this encounter Care Teams Forest Firefighter Relationship Specialty Start Date End Date Rolanda Thakur MD [address] [place] [address] PCP - General Internal Medicine 09/19/22 documented as of this encounter
--- OUTSIDE RECORDS SUMMARY | 2024-10-31 19:03 | XMS_ITS | Encounter Summary ---
Author Organization [employer] Address [address] [place] [address] [place] [address] Care Team Providers Care Cbx Operator Name Role Phone Rolanda Thakur MD Primary Care Provider +1- [phone] Encounter Details Date Type Department Care Team (Latest Contact Info) Description 08/17/2021 Abstract [facility] CONVERSIONS Dental, Provider, DDS Social [...] on filedocumented in this encounter Care Teams Cbx Operator Relationship Specialty Start Date End Date Rolanda Thakur MD 505 [facility] [place] [address] PCP - General Internal Medicine 09/19/22 documented as of this encounter
--- OUTSIDE RECORDS SUMMARY | 2024-10-31 19:03 | XMS_ITS | Encounter Summary ---
Author Organization [employer] Address [address] [place] [address] Care Team Providers Care Driver Wheelchair Name Role Phone Rolanda Thakur MD Primary Care Provider +1- [phone] Reason for Referral * Consultation (Routine) - Canceled Specialty Diagnoses / Procedures Referred By Contac t Referred To Contact Endocrinology Diagnoses Type 2 diabetes mellitus without complication, without long-term current use of insulin (CMS/HCC) Rolanda Thakur MD [address] [place] [address] Phone: tel: fax: Referral ID Status Reason Start Date Expiration Date Visits Requested Visits Authorized [id number] Canceled Specialty Services Required 10/08/2024 10/08/2025 1 1 Encounter Details Date Type Department Care Team (Late st Contact Info) Description 10/08/2024 Orders Only [facility] CHC MED & PEDS [address] [place] [address] Rolanda Thakur MD [address] [place], [place] [phone] Type 2 diabetes mellitus without complication, without [...] Type Priority Associated Diagnoses Orde r Schedule Hemoglobin A1c Lab Routine Type 2 diabetes mellitus without complication, without long-term current use of insulin ([facility]) Expected: 10/08/2024 (Approximate), Expires: 10/08/2025 Scheduled Referrals Name Type Priority Associated Diagnoses Order Schedule Referral to Endocrinology Outpatient Referral Routine Type 2 diabetes mellitus without complication, without long-term current use of insulin ([facility]) Expected: 10/08/2024 (Approximate), Expires: 10/08/2025 documented as of this encounter Visit Diagnoses Diagnosis Type 2 diabetes mellitus without complication, without long-term current use of insulin ([facility])- Primary documented in this encounter Additional Health Concerns Assessment Noted Time PHQ-9 Depression Total Score: 2 05/13/20 24 9:24 AM EDT documented as of this encounter Care Teams Driver Wheelchair Relationship Specialty Start Date End Date Rolanda Thakur MD [address] [place] [address] PCP - General Internal Medicine 09/19/22 documented as of this encounter
--- OUTSIDE RECORDS SUMMARY | 2024-10-31 19:03 | XMS_ITS | Encounter Summary ---
Author Organization [employer] Address 75 [facility] 7 [place] [address] Care Team Providers Care Gym Attendant Name Role Phone Rolanda Thakur MD Primary Care Provider +1- [phone] Encounter Details Date Type Department Care Team ([facility] Contact Info) Description 10/08/2024 Telephone [facility] CH[facility] MED & PEDS [address] [place] [address] Rolanda Thakur MD [address] [place] [address] Social History Tobacco Use Types Packs/Day Years [...] * Telephone Encounter - Brinda Barnard - 10/08/2024 11:55 AM EST Tc from pt requesting diabetic sensors. States was advised by her eye dr to request them. Please call pt to clarify. documented in this encounter Plan of Treatment Not on file documented as of this encounter Visit Diagnoses Not on filedocumented in this encounter Additional Health Concerns Assessment Noted Time PHQ-9 Depression Total Score: 2 05/13/20 24 9:24 AM EDT documented as of this encounter Care Teams Gym Attendant Relationship Specialty Start Date End Date Rolanda Thakur MD [address] [place] [phone] PCP - General Internal Medicine 09/19/22 documented as of this encounter
--- OUTSIDE RECORDS SUMMARY | 2024-10-31 19:03 | XMS_ITS | Encounter Summary ---
Author Organization [employer] Address 75 [facility] 7 [place] [address] Care Team Providers Care Seat Joiner Chainstitch Name Role Phone Rolanda Thakur MD Primary Care Provider +1- [phone] Encounter Details Date Type Department Care Team ([facility] st Contact Info) Description 10/14/2024 Telephone [facility] MEDICINE [address] [place] [address] Rolanda Thakur MD [address] [place] [address] Social History Tobacco Use Types Packs/Day Years [...] encounter Miscellaneous Notes * Telephone Encounter - Harleen Manuel - 10/14/2024 12:58 PM EST Pharmacy CHW attempted outreach call on 10/14/24 for CDTM - Diabetes appointment; however, unable to reach patient. LVM for patient to contact Harleen Manuel at [phone]. documented in this encounter Plan of Treatment Not on file documented as of this encounter Visit Diagnoses Not on filedocumented in this encounter Additional Health Concerns Assessment Noted Time PHQ-9 Depression Total Score: 2 05/13/20 24 9:24 AM EDT documented as of this encounter Care Teams Seat Joiner Chainstitch Relationship Specialty Start Date End Date Rolanda Thakur MD [address] [place] [address] PCP - General Internal Medicine 09/19/22 documented as of this encounter
--- OUTSIDE RECORDS SUMMARY | 2024-10-31 19:03 | XMS_ITS | Encounter Summary ---
Author Organization [employer] Address [address] [place] [address] Care Team Providers Care Rn Admission Name Role Phone Rolanda Thakur MD Primary Care Provider [phone]- [phone] Reason for Referral * Consultation (Routine) - Authorized Specialty Diagnoses / Procedures Referred By Freddy meadows Referred To Contact Behavioral Health Diagnoses Generalized anxiety disorder with panic attacks Financial difficulties Rolanda Thakur MD [address] [place] [address] Phone: tel: fax: Referral ID Status Reason Start Date Expiration Date Visits Requested Visits Authorized [id number] Authorized Specialty Services Required 10/11/2024 10/11/2025 1 1 * Consultation (Routine) - Closed Specialty Diagnoses / Procedures Referred By Freddy meadows Referred To Contact Diagnoses Financial difficulties Rolanda Thakur MD [address] [place] [address] Phone: tel: fax: [address] [address] Phone: tel: fax: Referral ID Status Reason Start Date Expiration Date V isits Requested Visits Authorized [id number] Closed Specialty Services Required 10/11/2024 10/11/2025 1 1 * Consultation (Routine) - Authorized Specialty Diagnoses / Procedures Referred By Conthernandez t Referred To Contact Pharmacy Diagnoses Type 2 diabetes mellitus without complication, without long-term current use of insulin (CMS/HCC) Rolanda Thakur MD [address] [place] [address] Phone: tel: fax: Referral ID Status Reason Start Date Expiration Date Visits Requested Visits Authorized [id number] Authorized Consult and Treat 10/11/2024 10/11/2025 6 6 Reason for Visit * Reason Comments Diabetes Encounter Details Date Type Department Care Team ([facility] Contact Info) Description 10/11/2024 3:45 PM EST Office Visit [facility] MED & PEDS [address] [place] [address] Rolanda Thakur MD [address] [place] [address] Type 2 diabetes mellitus without complication, without long-term current use of insulin (CMS/HCC) (Primary Dx); Generalized anxiety disorder with panic attacks; Financial difficulties; Meralgia paresthetica of right side Social History Tobacco Use Types Packs/Day [...] Sign Reading Time Taken Comments Blood Pressure 176/84 10/11/2024 3:39 PM EST Pulse 55 10/11/2024 3:39 PM EST Temperature 36.5 ??C (97.7 ??F) 10/11/2024 3:39 PM ES T Respiratory Rate 20 10/11/2024 3:39 PM EST Oxygen Saturation 100% 10/11/2024 3:39 PM EST Inhaled Oxygen Concentration - - Weight 68 kg (150 lb) 10/11/2024 3:39 PM EST Height 162.6 cm (5' 4 ) 10/11/2024 3:39 PM EST Body Mass Index 25.75 10/11/2024 3:39 PM EST documented in this encounter Progress Notes * Rolanda Thakur MD - 10/11/2024 3:45 PM EST Subjective Patient ID: Angely Pineda is a 74 y.o. female who presents for Diabetes. Diabetes Hypoglycemia symptoms include nervousness/anxiousness. Pertinent negatives for diabetes include no fatigue. Multiple concerns: 1) pt would like to get a DEXCOM 7 prescribed. She contacted her insurance and was told she will beapproved. 2) Elevated BP which fluctuates. Pt admits missing doses of her clonidine. Pt denies any headache during the evaluation 3) pt is very concerned about her financial situation. Has multiple co-pay from different offices including her chiropractor, her Patch Press Operator, her Detective Bureau Chief etc. Admits having less panic attacks otherwise. 4)pt is c/o paresthesias of the right thigh for several weeks. Has tried some antibiotic ointment and w/o improvement. Patient Active Problem List Diagnosis Benign essential [...] mouth 2 times daily. 60 tablet 11 capsaicin (Zostrix) 0.025 % cream Apply topically 2 times daily. 56.6 g 3 cetirizine (ZyrTEC) 10 MG tablet Take 1 tablet (10 mg) by mouth Once per day. 30 tablet 11 clonazePAM (KlonoPIN) 0.5 MG tablet TAKE 1 TABLET BY MOUTH EVERY DAY NEEDED FOR PANIC ATTACKS 10tablet 3 cloNIDine (Catapres) 0.1 MG tablet TAKE 1 TABLET(0.1 MG) BY MOUTH THREE TIMES DAILY 90 tablet 2 cyanocobalamin (Vitamin B-12) 500 MCG tablet TAKE 1 TABLET(500 MCG) BY MOUTH DAILY IN THE MORNING 90 tablet 3 cyclobenzaprine (Flexeril) 10 MG tablet TAKE 1 [...] blood sugar. 50 tablet 12 glucose blood ([place] Ultra) test strip USE DIRECTED TO TEST BLOOD GLUCOSE TWICE DAILY 100 strip 11 losartan (Cozaar) 100 MG tablet TAKE 1 TABLET(100 MG) BY MOUTH IN THE MORNING 90 tablet 1 metFORMIN (Glucophage) 500 MG tablet TAKE 1 TABLET BY MOUTH TWICE DAILY WITH MEALS 180 tablet 0 Multiple Vitamin (Daily-Saadia Multivitamin) tablet TAKE 1 TABLET BY MOUTH EVERY DAY 30 tablet 11 tytdidia-lazfpyoojf-ofutetrgn (Neosporin) 5-400-5000 ointment Apply topically 4 times daily. 3.5 g 0 OneTouch DelDapt Lancets 33G [facility] Use to check blood sugar four times daily Synthroid 125 MCG tablet TAKE 1 TABLET BY MOUTH ON MONDAY, MONDAY, AND MONDAY AND ALTERNATE [id number] MCG ON MONDAY, MONDAY, MONDAY, AND MONDAY 36 tablet 3 Synthroid 125 MCG tablet TAKE 1 TABLET BY MOUTH ON MONDAY, MONDAY, AND MONDAY AND ALTERNATE [id number] MCG ON MONDAY, MONDAY, MONDAY, AND MONDAY 36 tablet 11 Synthroid 137 MCG tablet TAKE 1 TABLET BY MOUTH EVERY DAY BEFORE BREAKFAST 90 tablet 3 No current facility-administered medications on file prior to visit. Review of Systems Constitutional: Negative for chills, diaphoresis and fatigue. Eyes: Negative for photophobia, pain and redness. Respiratory: Negative for cough and choking. Musculoskeletal: Negative for gait problem and joint swelling. Psychiatric/Behavioral: The patient is nervous/anxious. Objective BP (!) 176/84 (BP Location: Left arm, Patient Position: Sitting, BP Cuff Size: Adult long) Pulse 55 Temp 97.7 ??F (36.5 ??C) (Oral) Resp 20 Ht 5' 4 (1.626 m) Wt 150 lb (68 kg) SpO2 100% BMI 25.75 kg/m?? Physical Exam Constitutional: General: She is not in acute distress. Appearance: Normal appearance. She is not ill-appearing, toxic-appearing or diaphoretic. Cardiovascular: Rate and Rhythm: Normal rate. Pulmonary: Effort: Pulmonary effort is normal. Skin: General: Skin is warm. Findings: No lesion or rash. Neurological: General: No focal deficit present. Mental Status: She is alert. Psychiatric: Mood and Affect: Mood is anxious. Assessment/Plan Diagnoses and all orders for this visit: Type 2 diabetes mellitus without complication, without long-term current use of insulin ([facility]) Comments: the CGM was prescribed. Patient will need to be educated on how to use the device. Orders: - POCT Glucose - Continuous Glucose Endocrinology Nurse (Dexcom G7 Endocrinology Nurse) device; 1 each Once per day for 1 day. - Continuous Glucose Sensor (Dexcom G7 Sensor) misc; 1 Units Once per day AND 1 Units Once per day. Apply 1 sensor every 10 days. - Referral to Pharmacy CDTM Generalized anxiety disorder with panic attacks Comments: Continue with clonidine 0.1 mg 3 times a day Compliance to get medication recommended Clonazepam as needed. Orders: - Referral to Behavioral Health; Future Financial difficulties Comments: Patient needs assistance as she is very anxious concerning her financial difficulties. Orders: - Referral to Care Management; Future - Referral to Behavioral Health; Future Meralgia paresthetica of right side Comments: Weekend thank you I hope your mom gets better yeah yeah Advised to avoid tight fitting clothes documented in this encounter Plan of Treatment Scheduled Referrals Name Type Priority Associated Diagnoses Orde r Schedule Referral to Pharmacy CD Outpatient Referral Routine Type 2 diabetes mellitus without complication, without long-term current use of insulin ([facility]) Ordered: 10/11/2024 Referral to Care Management Outpatient Referral Routine Financial difficulties Expected: 10/11/2024 (Approximate), Expires: 10/11/2025 Referral to Behavioral Health Outpatient Referral Routine Generalized anxiety disorder with panic attacks Financial difficulties Expected: 10/11/2024 (Approximate), Expires: 10/11/2025 documented as of this encounter Procedures Procedure Name Priority Date/Time Associated Diagnosis Comments POCT GLUCOSE Routine 10/11/2024 4:11 PM EST Type 2 diabetes mellitus without complication, without long-term current use of insulin ([facility]) documented in this encounter Results * POCT Glucose (10/11/2024 4:11 PM EST) [facility] Glucose Blood, POC [phone] - 200 mg/dL QC Media Lot # [id number] Lot# Expiration Date [id number] Comment:random Blood Capillary blood specimen / Unknown 10/11/2024 4:11 PM EST Rolanda Thakur MD POINT OF CARE TEST ENTER/ED IT ORDERABLES Final Result documented in this encounter Visit Diagnoses Diagnosis Type 2 diabetes mellitus without complication, without long-term current use of insulin ([facility])- Primary Generalized anxiety disorder with panic attacks Financial difficulties Inadequate material resources Meralgia paresthetica of right side documented in this encounter Additional Health Concerns Assessment Noted Time PHQ-9 Depression Total Score: 2 05/13/20 24 9:24 AM EDT documented as of this encounter Care Teams Rn Admission Relationship Specialty Start Date End Date Rolanda Thakur MD [address] [place] [address] PCP - General Internal Medicine 09/19/22 documented as of this encounter
--- OUTSIDE RECORDS SUMMARY | 2024-10-31 19:03 | XMS_ITS | Encounter Summary ---
Author Organization [employer] Address [address] [place] [address] [place] [address] Care Team Providers Care Pensionholder Information Clerk Name Role Phone Rolanda Thakur MD Primary Care Provider [phone]- [phone] Reason for Visit * Reason Onset Date Comments Referral 11/16/2023 Encounter Details Date Type Department Care Team ([facility] st Contact Info) Description 11/16/2023 Telephone [facility] MED [facility] PEDS [address] [place] [address] Rolanda Thakur MD [address] [place] [address] Referral Social History Tobacco Use Types Packs/Day [...] MyChart encounter. Any questions, contact pt at [phone] documented in this encounter Plan of Treatment Not on file documented as of this encounter Visit Diagnoses Not on filedocumented in this encounter Care Teams Pensionholder Information Clerk Relationship Specialty Start Date End Date Rolanda Thakur MD [address] [place] [address] PCP - General Internal Medicine 09/19/22 documented as of this encounter
--- OUTSIDE RECORDS SUMMARY | 2024-10-31 19:03 | XMS_ITS | Encounter Summary ---
Author Organization [employer] Address [address] [place] [address] [facility] [place] [address] Care Team Providers Care Belt Press Operator Name Role Phone Rolanda Thakur MD Primary Care Provider [phone] Reason for Referral * Consultation (Routine) - Closed Specialty Diagnoses / Procedures Referred By Freddy meadows Referred To Contact Neurology Diagnoses Other polyneuropathy Rolanda Thakur MD [address] [place] [address] Phone: tel: fax: [facility] Neurology [address] [place], [place] Phone: tel: fax: Referral ID Status Reason Start Date Expiration Date V isits Requested Visits Authorized [id number] Closed Specialty Services Required 11/22/2023 11/21/2024 1 1 * Consultation (Routine) - Closed Specialty Diagnoses / Procedures Referred By Freddy meadows Referred To Contact Physiatry Diagnoses Other polyneuropathy Rolanda Thakur MD [address] [place] [address] Phone: tel: fax: Referral ID Status Reason Start Date Expiration Date V isits Requested Visits Authorized [id number] Closed Specialty Services Required 11/17/2023 11/16/2024 1 1 Encounter Details Date Type Department Care Team (Late st Contact Info) Description 11/16/2023 Orders Only [facility] MED & PEDS [address] [place] [address] Rolanda Thakur MD [address] [place] [address] Other polyneuropathy (Primary Dx) Social History Tobacco [...] Primary documented in this encounter Care Teams Belt Press Operator Relationship Specialty Start Date End Date Rolanda Thakur MD [address] [place] [address] PCP - General Internal Medicine 09/19/22 documented as of this encounter
--- OUTSIDE RECORDS SUMMARY | 2024-10-31 19:03 | XMS_ITS | Encounter Summary ---
Author Organization [employer] Address [address] [place] [address] [place] [address] Care Team Providers Care Agricultural Equipment Operator Name Role Phone Rolanda Thakur MD Primary Care Provider [phone]- [phone] Encounter Details Date Type Department Care Team (Late st Contact Info) Description 12/07/2023 Telephone [facility] MEDICINE [address] [place] [phone] Rolanda Thakur MD [address] [place] [address] Social History Tobacco Use Types Packs/Day Years [...] on filedocumented in this encounter Care Teams Agricultural Equipment Operator Relationship Specialty Start Date End Date Rolanda Thakur MD [address] [place] [address] PCP - General Internal Medicine 09/19/22 documented as of this encounter
--- OUTSIDE RECORDS SUMMARY | 2024-10-31 19:03 | XMS_ITS | Encounter Summary ---
Author Organization [employer] Address [address] [place] [address] [place] [address] Care Team Providers Care Legal Billing Analyst Name Role Phone Rolanda Thakur MD Primary Care Provider +1- [phone] Reason for Visit * Reason Onset Date Comments Change PCP 10/08/2024 Encounter Details Date Type Department Care Team ([facility] st Contact Info) Description 10/08/2024 Telephone [facility] MED & PEDS [address] [place] [address] Rolanda Thakur MD [address] [place] [address] Change PCP Social History Tobacco Use Types Packs/Day Years [...] encounter Miscellaneous Notes * Telephone Encounter - Araceli Goodwin - 10/08/2024 3:58 PM EST Patient in requesting to change pcp from to . Patient states has better communication with . documented in this encounter Plan of Treatment Not on file documented as of this encounter Visit Diagnoses Not on filedocumented in this encounter Additional Health Concerns Assessment Noted Time PHQ-9 Depression Total Score: 2 05/13/20 24 9:24 AM EDT documented as of this encounter Care Teams Legal Billing Analyst Relationship Specialty Start Date End Date Rolanda Thakur MD [address] [place] [address] PCP - General Internal Medicine 09/19/22 documented as of this encounter
--- OUTSIDE RECORDS SUMMARY | 2024-10-31 19:03 | XMS_ITS | Encounter Summary ---
Author Organization [employer] Address [address] [place] [address] Care Team Providers Care Intelligent Systems Engineer Name Role Phone Rolanda Thakur MD Primary Care Provider +1- [phone] Reason for Visit * Reason Onset Date Comments Nurse Triage 12/12/2023 Encounter Details Date Type Department Care Team (Late st Contact Info) Description 12/12/[address] [facility] MEDICINE [address] [place] [address] Rolanda Thakur MD [address] [place] [address] Nurse Triage Social History Tobacco Use Types [...] from pt requesting to speak to PCP logistics supportcomputer security manager in regards to scheduled sick visit tmr, states was advised to contact PCP before scheduled appt to see how pt is doing, pt stated they still has a severe cough. Spinning Lathe Operator did advised appt is still expected. Pt is scheduled tmr 12/15/23 for ( chest congestion, cough , yellow nasal drainage. ) Please contact at [phone] * Telephone Encounter - Viktoria Schultz RN [...] point. Pt is advised to come to [facility] today to be seen since open till 8pm. PT is not sure if will be able to do that. Spinning Lathe Operator contacted Haylie Barrientos [facility] and asked if would be possible to schedule Pt at [facility] 12/15/23 340pm apt which Pt would [...] on filedocumented in this encounter Care Teams Intelligent Systems Engineer Relationship Specialty Start Date End Date Rolanda Thakur MD [address] [place] [address] PCP - General Internal Medicine 09/19/22 documented as of this encounter
--- OUTSIDE RECORDS SUMMARY | 2024-10-31 19:03 | XMS_ITS | Encounter Summary ---
Author Organization [employer] Address [address] [place] [address] Care Team Providers Care Signal System Testing Maintainer Name Role Phone Rolanda Thakur MD Primary Care Provider [phone]- [phone] Reason for Referral * Consultation (Routine) - Pending Review Specialty Diagnoses / Procedures Referred By Conthernandez meadows Referred To Contact Podiatry Diagnoses Type 2 diabetes mellitus without complication, without long-term current use of insulin (CMS/HCC) Rolanda Thakur MD [address] [place] [address] Phone: tel: fax: Carl Avitia DPM Phone: tel: fax: Referral ID Status Reason Start Date Expiration Date Visits Requested Visits Authorized [id number] Pending Review Specialty Services Required 11/01/2023 10/31/2024 1 1 Encounter Details Date Type Department Care Team (Late st Contact Info) Description 10/23/2023 Orders Only [facility] MED & PEDS [address] [place] [address] Rolanda Thakur MD [address] [place] [address] Acquired hypothyroidism (Primary Dx); Type 2 diabetes [...] (CMS/HCC) documented in this encounter Care Teams Signal System Testing Maintainer Relationship Specialty Start Date End Date Rolanda Thakur MD [address] [place] [address] PCP - General Internal Medicine 09/19/22 documented as of this encounter
--- OUTSIDE RECORDS SUMMARY | 2024-10-31 19:03 | XMS_ITS | Encounter Summary ---
Author Organization [employer] Address [address] [facility] 7 [place] [address] Care Team Providers Care Measurement Operator Name Role Phone Rolanda Thakur MD Primary Care Provider [phone]- [phone] Reason for Visit * Reason Onset Date Comments Nurse Triage 09/24/2024 Encounter Details Date Type Department Care Team (Late st Contact Info) Description 09/24/2024 Telephone [facility] [address] [place] [address] Rolanda Thakur MD [address] [place] [address] Nurse Triage Social History Tobacco Use Types [...] WIC for today as no appts in [facility]. Pt states gets panic attacks if has to wait . Pt advised unfortunately no appts in [facility]> Unable to schedule ahead for WIC. Pt states will seek [facility] clinic on [facility] in [place]. Will send to team as FYI to [...] acuity questions The caller accepted this outcome. [phone] documented in this encounter Plan of Treatment Not on file documented as of this encounter Visit Diagnoses Not on filedocumented in this encounter Additional Health Concerns Assessment Noted Time PHQ-9 Depression Total Score: 2 05/13/20 24 9:24 AM EDT documented as of this encounter Care Teams Measurement Operator Relationship Specialty Start Date End Date Rolanda Thakur MD [address] [place] [address] PCP - General Internal Medicine 09/19/22 documented as of this encounter
--- OUTSIDE RECORDS SUMMARY | 2024-10-31 19:03 | XMS_ITS | Encounter Summary ---
Author Organization [employer] Address [address] [place] [address] Care Team Providers Care Clinical Education Consultant Name Role Phone Rolanda Thakur MD Primary Care Provider +1- [phone] Reason for Visit * Reason Onset Date Comments Med Refill 10/27/2023 Encounter Details Date Type Department Care Team (Late st Contact Info) Description 10/27/2023 Telephone [facility] [address] [place] [address] Rolanda Thakur MD [address] [place] [address] Med Refill Social History Tobacco Use Types [...] on medication 125 Please contact pt @ [phone] No meds. * Telephone Encounter - Haylie Cantor RN - 10/27/2023 3:44 PM EST Patient reporting alternating days of synthroid 125 mcg and synthroid 137 mcg. Requesting new script for synthroid 125 mcg. Please review and advise, thanks. Tc from pt requesting levothyroxine (Synthroid) 125 MCG tablet, junior technical writer do not see med in chart but pt stated has been taking this medication for 10 years, pt switch 137 and 125 every day, junior technical writer attempted to contact pharmacy for clarifications but [facility] [address] open at 9:00AM. * Telephone Encounter - Jenny Neff - 10/27/2023 8:31 AM EST Tc from pt requesting levothyroxine (Synthroid) 125 MCG tablet, junior technical writer do not see med in chart but pt stated has been taking this medication for 10 years, pt switch 137 and 125 every day, junior technical writer attempted to contact pharmacy for clarifications but [facility] [address] open at 9:00AM. documented in this encounter Plan of Treatment Not on file documented as of this encounter Visit Diagnoses Not on filedocumented in this encounter Care Teams Clinical Education Consultant Relationship Specialty Start Date End Date Rolanda Thakur MD [address] [place] [address] PCP - General Internal Medicine 09/19/22 documented as of this encounter
--- OUTSIDE RECORDS SUMMARY | 2024-10-31 19:03 | XMS_ITS | Clinical Summary ---
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 30 tablet 11 4 025 Active glucose 4 g chewable tabletIndications: Type 2 diabetes mellitus without complication, without long-term current use of insulin ([facility]) Chew 4 tablets (16 g) if needed for low blood sugar. 50 tablet 12 4 025 Active glucose blood (ScanDigitaluch Ultra) test stripIndications:T ype 2 diabetes mellitus without complication, without long-term current use of insulin (CMS/[facility]) USE DIRECTED TO TEST BLOOD GLUCOSE TWICE DAILY 100 strip 11 4 Active metFORMIN (Glucophage) 500 MG tabletIndications: Type 2 diabetes mellitus without complication, without long-term current use of insulin ([facility]) TAKE 1 TABLET BY MOUTH TWICE DAILY WITH MEALS 180 tablet 4 Active ascorbic acid (Vitamin C) 1000 MG tablet TAKE 1 TABLET BY MOUTH EVERY DAY 30 tablet 4 Active D3-1000 25 MCG (1000 UT) capsuleIndications :Vitamin D deficiency TAKE 1 CAPSULE BY MOUTH EVERY DAY 90 capsule 2 4 Active ascorbic acid (Vitamin C) 500 MG tablet TAKE 1 TABLET BY MOUTH EVERY DAY 90 tablet 1 4 Active neomycin-bacitraci n-polymyxin (Neosporin) 5-400-5000 ointment Apply topically 4 times daily. 3.5 g 4 Active losartan (Cozaar) 100 MG tablet TAKE 1 TABLET(100 MG) BY MOUTH IN THE MORNING 90 tablet 1 4 Active clonazePAM (KlonoPIN) 0.5 MG tabletIndications: Panic attack,Anxiety TAKE 1 TABLET BY MOUTH EVERY DAY NEEDED FOR PANIC ATTACKS 10 tablet 3 4 Active busPIRone (Buspar) 10 MG tablet Take 1 tablet (10 mg) by mouth 2 times daily. 60 tablet 11 5 026 Active Synthroid 137 MCG tabletIndications: Acquired hypothyroidism TAKE 1 TABLET BY MOUTH EVERY DAY BEFORE BREAKFAST 90 tablet 3 5 Active Synthroid 125 MCG tablet TAKE 1 TABLET BY MOUTH ON MONDAY, MONDAY, AND MONDAY AND ALTERNATE WITH 137 MCG ON MONDAY, MONDAY, MONDAY, AND MONDAY 36 tablet 11 5 Active aspirin (Aspirin Low Dose) 81 MG EC tablet Take 1 tablet (81 mg) by mouth Once per day. 90 tablet 3 5 Active Multiple Vitamin (Daily-Saadia Multivitamin) tablet TAKE 1 TABLET BY MOUTH EVERY DAY 30 tablet 11 5 Active cloNIDine (Catapres) 0.1 MG tabletIndications: Anxiety,Benign essential hypertension TAKE 1 TABLET(0.1 MG) BY MOUTH THREE TIMES DAILY 90 tablet 2 5 Active capsaicin (Zostrix) 0.025 % creamIndications:S pondylosis of cervical region without myelopathy or radiculopathy Apply topically 2 times daily. 56.6 g 3 5 026 Active cyanocobalamin (Vitamin B-12) 500 MCG tablet TAKE 1 TABLET(500 MCG) BY MOUTH DAILY IN THE MORNING 90 tablet 3 5 Active glipiZIDE (Glucotrol) 10 MG tabletIndications: Diabetic polyneuropathy associated with type 2 diabetes mellitus (CMS/HCC) TAKE 1 TABLET(10 MG) BY MOUTH BEFORE BREAKFAST AND BEFORE THE EVENING MEAL 60 tablet 3 5 Active cyclobenzaprine (Flexeril) 10 MG tabletIndications: Neck pain on left side TAKE 1 TABLET BY MOUTH THREE TIMES DAILY( EVERY EIGHT HOURS) 30 tablet 5 Active Continuous Glucose Sensor (Dexcom G7 Sensor) miscIndications:Ty pe 2 diabetes mellitus without complication, without long-term current use of insulin (CMS/HCC) 1 Units Once per day AND 1 Units Once per day. Apply 1 sensor every 10 days. 3 each 11 5 025 Active Continuous Glucose Substance Abuse Therapist (Dexcom G7 Substance Abuse Therapist) deviceIndications: Type 2 diabetes mellitus without complication, without long-term current use of insulin ([facility]/HCC) 1 each Once per day for 1 day. 1 each 5 025 Active Problems Problem Noted Date Diagnosed Date [...] Plan: Augmentin BID x 10 days Nasal [place] Follow up if worsening or no improvement Generalized anxiety disorder with panic attacks 05/10/2024 Assessment & Plan (05/22/2024 1:00 PM EDT): Requested to see patient. Recommend f/up with PCP Assessment & Plan (05/13/2024 9:40 AM EDT): PROGRESS NOTE: ID: Angely Rodriguez is a 73 y.o. White straight-identified cis-female with previous documented hx of Anxiety No previous hx of MH services who presents for Anxiety and Panic [...] intervention , [facility], Patient to engage in OP therapy , and Patient to reach out to [facility] as needed Swelling of lip, tongue, and throat 05/10/2024 Assessment & Plan (05/22/2024 1:00 PM EDT): Patient reports episodes of swelling of exposure to different antigens, at this moment given recurrence and symptoms affecting patients daily, will strongly benefit of assessment from magnetic doctor to help elucidate etiology of symptoms. Peripheral [...] Upper respiratory tract infection 12/06/2022 12/15/2022 Encounters * This document contains information received from the source organization and may not represent a complete record from that organization. Date Type Department Care Team Description 10/31/[address] [address] Rolanda Thakur MD Call Back Request 10/31/[address] [address] Rolanda Thakur MD FYI ; Call Back Request 10/31/[address] [address] Rolanda Thakur MD Nurse Triage 10/28/2024 Telephone [facility] [address] [place] [address] Rolanda Thakur MD 10/23/2024 Telephone [facility] [address] [place] [address] Apple Britton PharmD 10/14/2024 Patient Outreach [facility] [address] [place] [address] Rolanda Thakur MD Care Coordination (CHW outreach for SDOH-patient declined to participate ) 10/14/[address] [address] Rolanda Thakur MD 10/11/2024 3:45 PM EST Office Visit [facility] [address] [place] [address] Rolanda Thakur MD Type 2 diabetes mellitus without complication, without long-term current use of insulin ([facility]) (Primary Dx); Generalized anxiety disorder with panic attacks; Financial difficulties; Meralgia paresthetica of right side 10/11/[address] [address] Rolanda Thakur MD FYI 10/11/2024 Travel 10/08/2024 Telephone [facility] [address] [place] [address] Rolanda Thakur MD Change PCP 10/08/2024 Orders Only [facility] [address] [place] [address] Rolanda Thakur MD Type 2 diabetes mellitus without complication, without long-term current use of insulin (CMS/HCC) (Primary Dx) 10/08/2024 Telephone [facility] [address] [place] [address] Rolanda Thakur MD 09/24/2024 Orders Only GENERIC EXTERNAL DATA DEPARTMENT Provider, Generic External Data 09/24/2024 Telephone [facility] [address] [place] [phone] Rolanda Thakur MD Nurse Triage 09/23/2024 Telephone [facility] [address] [place] [address] Huong Heredia, MINOO 09/23/2024 Orders Only [facility] [address] [place] [address] Rolanda Thakur MD Acquired hypothyroidism (Primary Dx); Benign essential hypertension 09/18/2024 Refill [facility] [address] [place] [address] Wyatt Huizar MD Neck pain on left side 09/17/2024 Refill [facility] [address] [place] [address] Rolanda Thakur MD Diabetic polyneuropathy associated with type 2 diabetes mellitus (CMS/HCC) 09/15/2024 Refill [facility] [address] [place] [address] Rolanda Thakur MD 09/10/2024 3:45 PM EST Office Visit [facility] [address] [place] [address] Rolanda Thakur MD Type 2 diabetes mellitus without complication, without long-term current use of insulin (CMS/HCC) (Primary Dx); Diabetic polyneuropathy associated with type 2 diabetes mellitus ([facility]); Spondylosis of cervical region without myelopathy or radiculopathy; Benign essential hypertension 09/10/2024 Travel 09/04/2024 Refill [facility] [address] [place] [address] Rolanda Thakur MD Anxiety; Benign essential hypertension 08/27/2024 Refill [facility] [address] [place] [address] Rolanda Thakur MD Type 2 diabetes mellitus without complication, without long-term current use of insulin ([facility]) 08/26/2024 Orders Only [facility] [address] [place] [address] Rolanda Thakur MD Type 2 diabetes mellitus without complication, without long-term current use of insulin ([facility]) (Primary Dx) 08/23/2024 Refill [facility] [address] [place] [address] Rolanda Thakur MD 08/20/2024 Refill [facility] [address] [place] [address] Rolanda Thakur MD 08/20/2024 Refill [facility] [address] [place] [address] Rolanda Thakur MD 08/20/2024 Refill [facility] [address] [place] [address] Karoline Castañeda MD Acquired hypothyroidism 08/20/2024 Refill [facility] [address] [place] [address] Karen Alcantar MD 08/19/2024 Refill [facility] [address] [place] [address] Wyatt Huizar MD Neck pain on left side 08/19/2024 Refill [facility] [address] [place] [address] Wyatt Huizar MD Neck pain on left side 08/19/2024 Refill [facility] [address] [place] [address] Rolanda Thakur MD Panic attack; Anxiety 08/17/2024 10:40 AM EST Office Visit [facility] [address] [place] [address] Uday Rodriguez MD Cracked skin (Primary Dx); Sciatica, unspecified laterality 08/17/2024 Refill [facility] [address] [place] [address] Rolanda Thakur MD 08/17/2024 Refill [facility] [address] [place] [address] Rolanda Thakur MD 08/17/2024 Travel 08/15/2024 Refill [facility] [address] [place] [address] Rolanda Thakur MD Vitamin D deficiency 08/13/2024 Refill [facility] [address] [place] [address] Rolanda Thakur MD Vitamin D deficiency 08/13/2024 Refill [facility] [address] [place] [address] Maren Hough MD 08/13/2024 Telephone [facility] [address] [place] [address] Rolanda Thakur MD 08/10/2024 9:40 AM EST Office Visit [facility] [address] [place] [address] Wyatt Huizar MD Neck pain on left side (Primary Dx); Acute maxillary sinusitis, recurrence not specified; Benign essential hypertension 08/10/2024 Travel 08/09/2024 Telephone [facility] [address] [place] [address] Rolanda Thakur MD Nurse Triage 08/05/2024 Telephone [facility] [address] [place] [address] Rolanda Thakur MD Nurse Triage 08/02/2024 Orders Only [facility] [address] [place] [address] Rolanda Thakur MD Chronic left-sided low back pain with left-sided sciatica (Primary Dx) from Last 3 Months Immunizations Name Administration [...] Mass Index 25.75 10/11/2024 3:39 PM EST Plan of Treatment Health Maintenance [...] without long-term current use of insulin (CMS/HCC) ALDOSTERONE/PLASMA RENIN ACTIVITY RATIO, LC/MS/MS Routine 09/24/2024 1:40 PM EST Benign essential hypertension TSH W/REFLEX TO FT4 Routine 09/24/2024 1 :40 PM EST Acquired hypothyroidism Benign essential hypertension BASIC METABOLIC PANEL, FASTING Routine 09/24/2024 1:40 PM EST Acquired hypothyroidism Benign essential hypertension CBC WITH AUTO DIFFERENTIAL Routine 09/24/2024 1:40 PM EST Acquired hypothyroidism Benign essential hypertension SARS COV2/INFLUENZA A/B AND RSV RNA QL NAAT Routine 09/24/2024 12:14 PM EST XR CERVICAL SPINE 5V Routine 08/12/2024 9:50 AM EST LAB COLOGUARD?? COLON CANCER SCREEN Routine 08/09/2024 8:30 AM EST Screening for colon cancer CT HEAD WO CONTRAST Routine 08/09/2024 Uncontrolled hypertension HEPATITIS C AB W/REFL TO HCV RNA, QN, PCR Routine 07/17/2024 3:20 PM EST Type 2 diabetes mellitus without complication, without long-term current use of insulin (CMS/HCC) Decreased GFR LIPID PANEL, STANDARD Routine 07/17/2024 3:20 PM EST Type 2 diabetes mellitus without complication, without long-term current use of insulin (CMS/HCC) Decreased GFR ALBUMIN, RANDOM URINE W/CREATININE Routine 07/17/2024 2:55 PM EST Type 2 diabetes mellitus without complication, without long-term current use of insulin ([facility]) Decreased GFR POCT GLYCATED HEMOGLOBIN, TOTAL Routine 07/06/2024 9:32 AM EST Type 2 diabetes mellitus without complication, without long-term current use of insulin ([facility]) HM IFOBT Routine 01/03/2022 from Last 3 Months or Most Recently Relevant to Health Maintenance Results * POCT Glucose (10/11/2024 4:11 PM EST) Pathologist [facility] Glucose Blood, POC 185 60 - 200 mg/dL QC Media Lot # [id number] Lot# Expiration Date [id number] Comment:random Blood Capillary blood specimen / Unknown 10/11/2024 4:11 PM EST Rolanda Thakur MD POINT OF CARE TEST ENTER/ED IT ORDERABLES Final Result * (ABNORMAL) Basic Metabolic Panel, Fasting (09/24/2024 1:40 PM EST) [facility] Sodium 139 135 - 145 mmol/L [facility] Potassium 3.8 3.3 - 5.1 mmol/L [facility] Chloride 106 96 - 108 mmol/L [facility] Carbon Dioxide 22 22 - 29 mmol/L [facility] Anion Gap 15 12 - 20 [facility] Urea Nitrogen (BUN) 13 9 - 16 mg/dL [facility] Creatinine, Serum 0.94 0.5 - 1.4 mg/dL [facility] Estimated Glomerular Filt Rate 58 [facility] Comment:Chronic Kidney Disea se: Estimated GFR < 60 mL/min/1.58z7Iuartu Kidney Disease: Estimated GFR < 15 mL/min/1.73m2 Glucose Fasting 169(H) 60 - 99 mg/dL [facility] Comment:A fasting glucose of 126 mg/dl or greater on more than oneoccasion is considered diagnostic of diabetes. Calcium 9.9 8.4 - 10.2 mg/dL [facility] Blood Venous blood specimen / Unknown 09/24/2024 1:40 PM EST 09/24/2024 4:21 PM EST us Rolanda Thakur MD LAB BLOOD ORDERABLES Final Result Performing Organization Address [facility]/ZIP Co de Phone Number [facility] [address] [place] [phone] * TSH W/Reflex to FT4 (09/24/2024 1:40 PM EST) TSH reflex Free T4 0.38 0.32 - 4.0 uIU/mL [facility] Blood Venous blood specimen / Unknown 09/24/2024 1:40 PM EST 09/24/2024 4:21 PM EST us Rolanda Thakur MD LAB BLOOD ORDERABLES Final Result Performing Organization Address [facility] de Phone Number [facility] [address] [place] [phone] * Aldosterone/Plasma Renin Activity Ratio, LC/MS/MS (09/24/2024 1:40 PM EST) Aldosterone 2 see note ng/dL [facility] Comment:Unable to flag abnor mal result(s), please refer to reference range(s) below:Adult Reference Ranges for Aldosterone, LC/MS/MS: Upright 8:00 - 10:00 am < or = 28 ng/dL Upright 4:00 - 6:00 pm < or = 21 ng/dL Supine 8:00 - 10:00 am 3 - 16 ng/dLTHIS TEST WAS PERFORMED AT:[id number] [place] [address]TMSMSQETHEO PEDERSEN MD,PHD Plasma Renin Activity 0.52 0.25 - 5.82 ng/mL/h [facility] Aldosterone/Renin Ratio 3.8 0.9 - 28.9 Ratio [facility] Comment:This test was develo ped and its analytical performancecharacteristics have been determined by [employer] [place], [place]. It hasnot been cleared or approved by the U.S. Food and DrugAdministration. This assay has been validated pursuantto the CLIA regulations and is used for clinicalpurposes.THIS TEST WAS PERFORMED AT:[employer] [place] [address]KQVIBPM W. MASON,MD,PHD Blood Venous blood specimen / Unknown 09/24/2024 1:40 PM EST 09/24/2024 4:21 PM EST us Rolanda Thakur MD LAB BLOOD ORDERABLES Final Result [facility] [address] [place] [address] [phone] * (ABNORMAL) CBC auto differential (09/24/2024 1:40 PM EST) White Blood Count 7.0 4.8 - 10.8 X10*3/uL [facility] Red Blood Count 4.23 4.20 - 5.50 X10*6/uL [facility] Hemoglobin 12.6 12.0 - 16.0 g/dl [facility] Hematocrit 37.0 37.0 - 47.0 % [facility] Mean Corpuscular Volume 87.5 80.0 - 98.0 fL [facility] Mean Corpuscular Hemoglobin 29.8 27.0 - 33.0 pg [facility] Mean Corpuscular HGB Conc 34.1 31.0 - 35.0 g/dl [facility] Red Cell Distribution Width 12.8 11.0 - 16.0 % [facility] Platelet Count 251 160 - 400 X10*3/uL [facility] Mean Platelet Volume 9.5 9.4 - 12.3 fL [facility] Neutrophils Percent Auto 59.8 45 - 73 % [facility] Imm Gran Pct Auto 0.3 0.0 - 0.4 % [facility] Lymphocytes Percent Auto 26.1 20 - 40 % [facility] Monocytes Percent Auto 8.6 2 - 11 % [facility] Eosinophils Percent Auto 4.3(H) 0 - 4 % [facility] Basophils Percent Auto 0.9 0 - 2 % [facility] NRBC Pct Auto 0.0 0.0 - 0.2 /100WBC [facility] Neutrophils Absolute Auto 4.2 2.0 - 8.3 x10*3/uL [facility] Imm Gran Abs Auto 0.02 0.00 - 0.03 X10*3/uL [facility] Lymphocytes Absolute Auto 1.8 1.2 - 4.9 X10*3/uL [facility] Monocytes Absolute Auto 0.6 0.1 - 1.2 X10*3/uL [facility] Eosinophils Absolute Auto 0.3 0.0 - 0.4 X10*3/uL [facility] Basophils Absolute Auto 0.1 0.0 - 0.2 X10*3/uL [facility] NRBC Abs Auto 0.000 0.0 - 0.012 X10*3/uL [facility] Blood Venous blood specimen / Unknown 09/24/2024 1:40 PM EST 09/24/2024 4:21 PM EST Rolanda Thakur MD LAB BLOOD ORDERABLES Final Result [facility] [address] [place] [phone] [phone] * SARS-CoV-2 RNA, Influenza A/B, and RSV RNA, Ql NAAT (09/24/2024 12:14 PM EST) Influenza A PCR NEGATIVE Negative [facility] Influenza B PCR NEGATIVE Negative [facility] Resp Syncy Virus RNA Qual PCR NEGATIVE Negative [facility] SARS COV2 PCR NEGATIVE Negative [facility] Comment:All test results mus t be correlated with clinical findings.Negative results do not preclude SARS-CoV2, influenza Avirus, influenza B virus and/or RSV infectionand should not be used as the sole basis for treatment orother patient management decisions. Negative results must becombined with clinical observations, patient history, andepidemiological information.This test has not been evaluated for monitoring treatment ofinfection.This test has been authorized by the FDA under an EmergencyUse Authorization (EUA) for use by authorized laboratories.Testing performed on the [employer] [employer] [facility] GeneXpert utilizingreal-time RT-PCR.All SARS CoV2 and positive influenza A/B results arereported to [facility]. 09/24/2024 12:1 4 PM EST 09/24/2024 5:34 PM EST us Generic External Data Provider LAB MICROBIOLOGY - GENERAL ORDERABLES Final Result Performing Organization Address City/State/[facility] Co de Phone Number [facility] [address] [place] [address] [phone] * XR CERVICAL SPINE 5V (08/12/2024 9:50 AM EST) Anatomical Region Laterality Modality Abdomen Radiographic Gabriella ging 08/12/2024 9:50 AM EST Narrative 09/02/2024 11:24 AM EST ? [facility] ?[address] ? [place] [address] ?XRay Report ? Signed ? Patient: Angely Pineda ?MR#: [id number] ? : 1950 ?Acct:[id number] ? Age/Sex: 74 / F ?ADM Date: 12/23/24 ? Loc: HO.HMGCX ? Attending Dr: Wyatt Golden MD ? Ordering Physician: Wyatt Golden MD ?? Date of Service: 08/12/24 ?? Procedure(s): XR cervical spine 5V ?? Accession Number(s): [id number] ? cc: Rolanda Thakur MD; Wyatt Golden [...] ??Yuridia Becerra MD ??09/02/2024 11:21 AM EST ? Dictated By: ?Yuridia Becerra MD ? Signed By: ?<Electronically signed by Yuridia Becerra MD in OV> ? 09/02/24 1121 ? DD/ 0950 ? TD/TT: 08/12/24 1000 ? Insulation Blower: ? Procedure Note Marian, Image - 09/02/2024 [facility] [address] [place] [address] [place] [address] XRay Report Signed Patient: Erma Pineda#: [id number] : 1950cct:[id number] Age/Sex: 74 / FADM Date: 08/12/24 Loc: HO.HMGCX Attending Dr: Wyatt Golden MD Ordering Physician: Wyatt Golden MD Date of Service: 08/12/24 Procedure(s): XR cervical spine 5V Accession Number(s): [id number] cc: Rolanda Thakur MD; Wyatt Golden MD [...] Yuridia Becerra MD 09/02/2024 11:21 AM EST RP Dictated By: Yuridia Becerra MD Signed By: <Electronically signed by Yuridia Becerra MD in OV> 09/02/24 1121 DD/ 0950 TD/TT: 08/12/24 1000 Insulation Blower: Wyatt Mcdonald MD IMG XR PROCEDURES Iftikhar mecca Result - Final * Cologuard?? colon cancer screening (08/09/2024 8:30 AM EST) Cologuard Result Negative Negative 08/18/20 11:52 PM EST [employer] (CLIA #:[id number]) Comment: NEGATIVE TEST RESULT. A negative Cologuard [...] (Dioni Kelly al, N Engl J Med 2014;370(14):1286- 1297) The normal value (reference range) for this assay is negative. COLOGUARD RE-SCREENING RECOMMENDATION: Periodic colorectal cancer screening is an important part of preventive healthcare for asymptomatic individuals at average risk for colorectal cancer. ??Following a negative Cologuard result, the [place] Cancer Society and U.S. Multi-Society Task Force screening guidelines recommend a Cologuard re-screening interval of 3 years. References: [place] [employer] Guideline for Colorectal Cancer Screening: https://www.cancer.org/cancer/jgftf-ophvol-cbbyyc/etkvcnvnr-volfzcevg-uifzikj/ac s-rec ommendations.html.; Santiago DK, Ileana PERERA, Emery LalaK, Colorectal Cancer Screening: Recommendations for Physicians and Patients from the U.S. Multi-Society Task Force on Colorectal Cancer Screening , Am J Gastroenterology 2017; 112:7884-1855. TEST DESCRIPTION: Composite algorithmic analysis of stool [...] Celaya et al, N Engl J Med 2014;370(14):1848-0370.) Cologuard may produce a false negative or false positive result (no colorectal cancer or precancerous polyp present at colonoscopy follow up). A negative Cologuard test result does not guarantee the absence of CRC or advanced adenoma (pre-cancer). The current Cologuard screening interval is every 3 years. ([place] Cancer Society and U.S. Multi-Society Task Force). Cologuard performance data in a 10,000 patient pivotal study using colonoscopy as the reference method can be accessed at the following location: www.[employer] (Formerly Nearlyweds).M-DAQ/results. Additional description of the Cologuard test process, warnings and precautions can be found at www.cologuard.com. Stool specimen (specimen) 08/09/2024 8:30 AM EST 08/10/2024 2:47 PM EST us Rolanda Thakur MD LAB MOLECULAR DIAGNOSTICS O RDERABLES Final Result [employer] (CLIA #:[id number]) [address] [place] [address], * CT Head w/o Contrast (08/09/2024) Anatomical Region Laterality Modality Head, Neck Computed Tomogra phy Karen Alcantar MD IMG CT PROCEDURES Final Resul t * Hepatitis C Antibody with Reflex to HCV, RNA, Quantitative, Real-Time PCR (07/17/2024 3:20 PM EST) Hepatitis C Antibody Nonreactive Nonreactive [facility] Comment:Antibodies to HCV no t detected; does not exclude early acuteHCV infection. Blood Venous blood specimen / Unknown 07/17/2024 3:20 PM EST 07/17/2024 5:23 PM EST us Rolanda Thakur MD LAB BLOOD ORDERABLES Final Result Performing Organization Address City/[facility]/ZIP Co de Phone Number [facility] [address] [place] [phone] * (ABNORMAL) Lipid Panel, Standard (07/17/2024 3:20 PM EST) Triglycerides 89 <150 mg/dL [facility] Comment:Desirable Triglyceri de: less than 150 mg/dLBorderline High Triglyceride 150-199 mg/dLHigh Triglyceride: 200-499 mg/dLVery High Triglyceride: greater than or equal to 5OO mg/dL Cholesterol 193 <200 mg/dL [facility] Comment:Desirable Cholestero l: less than 200 mg/dLBorderline High Cholesterol: 200-239 mg/dLHigh Cholesterol: greater than 239 mg/dL LDL Cholesterol Calculated 111(H) <100 mg/dL [facility] Comment:Desirable LDL: less than 100 mg/dLNear Optimal/Above Optimal LDL: 110- 129 mg/dLBorderline High LDL: 130-159 mg/dLHigh LDL: 160-189 mg/dLVery High LDL: greater than or equal to 190 mg/dL HDL Cholesterol 65 >40 mg/dL [facility] Comment:Desirable HDL: great er than 40 mg/dL Note: This HDL assay may give artificially low results in patients with liver disease. Blood Venous blood specimen / Unknown 07/17/2024 3:20 PM EST 07/17/2024 5:23 PM EST us Rolanda Thakur MD LAB BLOOD ORDERABLES Final Result Performing Organization Address City/[facility]/ZIP Co de Phone Number [facility] [address] [place] [address] [phone] * Albumin, Random Urine W/Creatinine (07/17/2024 2:55 PM EST) Creatinine, Urine 38.88 mg/dL [facility] Microalbumin Urine <5.0 mg/L [facility] Microalbum Creatinine Ratio Ur TNP <30 ug/mg cr [facility] Comment:Unable to calculate albumin/creatinine ratio due to lowmicroalbumin or creatinine result. Urine (Urine, Random) 07/17/2024 2:55 PM EST 07/17/2024 5:25 PM EST us Rolanda Thakur MD LAB URINE ORDERABLES Final Result Performing Organization Address City/[facility]/ZIP Co de Phone Number [facility] [address] [place] [phone] * (ABNORMAL) POCT HGB A1C (07/06/2024 9:32 AM EST) Hemoglobin A1C 8.3(A) 4.0 - 6.0 % Blood 07/06/2024 9:32 AM EST Edward Bach MD POINT OF CARE TEST ENTER/EDIT OR DERABLES Final Result * gFOBT (01/03/2022) Fecal Occult Blood 1 Negative Fecal Occult Blood 2 Negative Fecal Occult Blood 3 Negative 01/03/2022 [facility] Provider POINT OF CARE TEST ENTER/ EDIT ORDERABLES Final Result from Last 3 Months or Most Recently Relevant to Health Maintenance Insurance [facility] MEDICARE REPLACEMENT Care Teams Jewelry Finisher Relationship Specialty Start Date End Date Rolanda Thakur MD [address] [place] [address] [address] [address] PCP - General Internal Medicine 09/19/22
--- OUTSIDE RECORDS SUMMARY | 2024-10-31 19:03 | XMS_ITS | Clinical Summary ---
Author Organization [facility] Facility Address [address] [place] [address] Care Team Providers Care Forensic Artist Name Role Phone Maren Hough MD Primary Care Provider [phone] Social History Tobacco Use Types Packs/Day Years [...] patient's age to complete this topic Insurance [facility] MEDICARE [facility] MEDICARE Care Teams Forensic Artist Relationship Specialty Start Date End Date Maren Hough MD [address] [place] [phone] PCP - General Family Medicine 06/20/22
--- OUTSIDE RECORDS SUMMARY | 2024-10-31 19:03 | XMS_ITS | Encounter Summary ---
Author Organization [employer] Address [address] [facility] 7t h [place] [address] Care Team Providers Care Educational Advisor Name Role Phone Rolanda Thakur MD Primary Care Provider [phone] Encounter Details Date Type Department Care Team (Latest Contact Info) Description 10/11/2024 Travel Social History Tobacco Use Types Packs/Day [...] documented as of this encounter Care Teams Educational Advisor Relationship Specialty Start Date End Date Rolanda Thakur MD [address] [place] [address] PCP - General Internal Medicine 09/19/22 documented as of this encounter
--- OUTSIDE RECORDS SUMMARY | 2024-10-31 19:03 | XMS_ITS | Encounter Summary ---
Author Organization [employer] Address [address] [place] [address] Care Team Providers Care Surgical Lead Name Role Phone Rolanda Thakur MD Primary Care Provider [phone] Reason for Referral * Consultation (Routine) - Authorized Specialty Diagnoses / Procedures Referred By Contac t Referred To Contact Endocrinology Diagnoses Type 2 diabetes mellitus without complication, without long-term current use of insulin (CMS/HCC) Rolanda Thakur MD [address] [place] [address] Phone: tel: fax: [facility] [address] [place] [phone] Phone: tel: fax: Referral ID Status Reason Start Date Expiration Date Visits Requested Visits Authorized [id number] Authorized Specialty Services Required 08/26/2024 08/26/2025 1 1 Encounter Details Date Type Department Care Team (Late st Contact Info) Description 08/26/2024 Orders Only [facility] [address] [place] [address] [phone] Rolanda Thakur MD [address] [place] [address] Type 2 diabetes mellitus without complication, without [...] documented as of this encounter Care Teams Surgical Lead Relationship Specialty Start Date End Date Rolanda Thakur MD [address] [place] [address] PCP - General Internal Medicine 09/19/22 documented as of this encounter
--- OUTSIDE RECORDS SUMMARY | 2024-10-31 19:03 | XMS_ITS | Encounter Summary ---
Author Organization [employer] Address 75 [facility] 7 [place] [address] Care Team Providers Care Molder Helper Name Role Phone Rolanda Thakur MD Primary Care Provider [phone]- [phone] Reason for Visit * Reason Onset Date Comments FYI 10/11/2024 Encounter Details Date Type Department Care Team (Late st Contact Info) Description 10/11/2024 Telephone [facility] MEDICINE [address] [place] [address] Rolanda Thakur MD [address] [place] [address] FYI Social History Tobacco Use Types Packs/Day Years [...] encounter Miscellaneous Notes * Telephone Encounter - Kofi Burciaga - 10/11/2024 4:36 PM EST Tc from pt stating that Zepbound injection PA has been approved and it will be arriving on Monday at the pharmacy and they will be showing pt how to administer medication. documented in this encounter Plan of Treatment Not on file documented as of this encounter Visit Diagnoses Not on filedocumented in this encounter Additional Health Concerns Assessment Noted Time PHQ-9 Depression Total Score: 2 05/13/20 24 9:24 AM EDT documented as of this encounter Care Teams Molder Helper Relationship Specialty Start Date End Date Rolanda Thakur MD [address] [place] [address] PCP - General Internal Medicine 09/19/22 documented as of this encounter
--- OUTSIDE RECORDS SUMMARY | 2024-10-31 19:03 | XMS_ITS | Encounter Summary ---
Author Organization [employer] Address 75 [facility] 7 [place] [address] Care Team Providers Care Roofing Superintendent Name Role Phone Rolanda Thakur MD Primary Care Provider [phone] Encounter Details Date Type Department Care Team ([facility] Contact Info) Description 10/28/2024 Telephone [facility]EDS [address] [place] [address] Rolanda Thakur MD 505 [place] [address] Social History Tobacco Use Types Packs/Day Years [...] documented as of this encounter Care Teams Roofing Superintendent Relationship Specialty Start Date End Date Rolanda Thakur MD [address] [place] [address] PCP - General Internal Medicine 09/19/22 documented as of this encounter
== END 2024-10-31 16:46 | disposition home or self-care (01) ==
PROVIDERS: PCP Internal Medicine; Visit Provider Nurse Practitioner Family
DX: R10.13 Epigastric pain (principal); E11.9 Type 2 diabetes mellitus without complications; F41.0 Panic disorder [episodic paroxysmal anxiety]; I10 Essential (primary) hypertension

== ENCOUNTER → 2024-10-31 15:29 | Outpatient (BNVA) | payer MEDICARE, SELFPAY | PROVIDERS: PCP Internal Medicine; Visit Provider Nurse Practitioner Family | DX: R10.13 Epigastric pain (principal); E11.9 Type 2 diabetes mellitus without complications; F41.0 Panic disorder [episodic paroxysmal anxiety]; I10 Essential (primary) hypertension | CPT/HCPCS: 99212 ==

== ENCOUNTER 2024-11-09 09:08 | Outpatient (REF) | payer MEDICARE, SELFPAY ==
[2024-11-09 14:42] LABS: Influenza A PCR NEGATIVE (Negative); Influenza B PCR NEGATIVE (Negative); Resp Syncy Virus RNA Qual PCR NEGATIVE (Negative); SARS COV2 PCR INHOUSE POSITIVE (Negative)
== END 2024-11-09 09:09 | disposition home or self-care (01) ==
LOC: HO.LAB 09:08
PROVIDERS: Family Medicine; PCP Internal Medicine
DX: Z13.89 Encounter for screening for other disorder (principal)
CPT/HCPCS: 0241U

== ENCOUNTER 2024-11-09 09:08 | Outpatient (AMB) | payer MEDICARE, SELFPAY ==
--- OUTSIDE RECORDS SUMMARY | 2024-11-09 09:10 | XMS_ITS | Encounter Summary ---
Author Organization [employer] Address [address] [place] [address] Care Team Providers Care Dock Pumper Name Role Phone Rolanda Thakur MD Primary Care Provider Encounter Details Date Type Department Care Team (Late Contact Info) Description 06/21/2023 Abstract [facility] [address] [place] [address] Sherrie Caballero Social History Tobacco Use Types [...] as of this encounter Plan of Treatment Upcoming Encounters Date Type Department Care Team (Late Contact Info) Description 11/14/2024 4:00 PM EDT Office Visit [facility] [address] [place], [place] [phone] Rolanda Thakur MD [address] [place], [place] [phone] documented as of this encounter Procedures Procedure Name Priority Date/Time Associated Diagnosis Comments HM IFOBT Routine 01/03/2022 documented in this encounter Results * gFOBT (01/03/2022) Fecal Occult Blood 1 Negative Fecal Occult Blood 2 Negative Fecal Occult Blood 3 Negative 01/03/2022 us Historical Provider POINT OF CARE TEST ENTER/ EDIT ORDERABLES Final Result documented in this encounter Visit Diagnoses Not on filedocumented in this encounter Care Teams Dock Pumper Relationship Specialty Start Date End Date Rolanda Thakur MD [address] [place] [address] PCP - General Internal Medicine 09/19/22 documented as of this encounter
--- OUTSIDE RECORDS SUMMARY | 2024-11-09 09:10 | XMS_ITS | Encounter Summary ---
Author Organization [employer] Address [address] [place] [address] [place] [address] Care Team Providers Care Paper Coater Name Role Phone Rolanda Thakur MD Primary Care Provider [phone] Reason for Referral * Imaging (Routine) - Closed Specialty Diagnoses / Procedures Referred By Contac t Referred To Contact Radiology Diagnoses Hyponatremia Decreased GFR Procedures US RENAL BI Rolanda Thakur MD [address] [place] [address] Phone: tel: fax: [address] Phone: tel: fax: Referral ID Status Reason Start Date Expiration Date Visits Re quested Visits Authorized [id number] Closed 07/18/2024 07/18/2025 1 0 Encounter Details Date Type Department Care Team (Late st Contact Info) Description 07/09/2024 Orders Only [facility] MED [facility] PEDS [address] [place], [place] [phone] Rolanda Thakur MD [address] [place] [address] Hyponatremia (Primary Dx); Decreased GFR Social History [...] Care Team (Late st Contact Info) Description 11/14/2024 4:00 PM EDT Office Visit [facility] [address] [place], [place] [phone] Rolanda Thakur MD [address] [place] [address] Scheduled Orders Name Type Priority Associated Diagnoses [...] documented as of this encounter Care Teams Paper Coater Relationship Specialty Start Date End Date Rolanda Thakur MD [address] [place] [address] PCP - General Internal Medicine 09/19/22 documented as of this encounter
--- OUTSIDE RECORDS SUMMARY | 2024-11-09 09:10 | XMS_ITS | Encounter Summary ---
Author Organization [employer] Address [address] [place] [address] [place] [address] Care Team Providers Care Regional Property Manager Name Role Phone Rolanda Thakur MD Primary Care Provider [phone] Reason for Visit * Reason Comments Med Refill Encounter Details Date Type Department Care Team (Late Contact Info) Description 05/20/2024 Refill [facility] & PEDS [address] [place] [address] Rolanda Thakur MD [address] [place] [address] Diabetic polyneuropathy associated with type 2 diabetes mellitus ([facility]) Social History Tobacco Use Types [...] Description 11/14/2024 4:00 PM EDT Office Visit [facility] PEDS [address] [place] [address] Rolanda Thakur MD [address] [place] [address] documented as of this encounter Visit Diagnoses Diagnosis Diabetic polyneuropathy associated with type 2 diabetes mellitus ([facility]) documented in this encounter Additional Health Concerns Assessment Noted Time PHQ-9 Depression Total Score: 2 05/13/20 24 9:24 AM EDT documented as of this encounter Care Teams Regional Property Manager Relationship Specialty Start Date End Date Rolanda Thakur MD 505 [place] [address] PCP - General Internal Medicine 09/19/22 documented as of this encounter
--- OUTSIDE RECORDS SUMMARY | 2024-11-09 09:10 | XMS_ITS | Encounter Summary ---
Author Organization [employer] Address [address] [place] [address] Care Team Providers Care Antichecking Iron Worker Name Role Phone Rolanda Thakur MD Primary Care Provider [phone] Reason for Visit * Reason Onset Date Comments Nurse Triage 08/05/2024 Encounter Details Date Type Department Care Team ([facility] st Contact Info) Description 08/05/2024 Telephone [facility] MEDICINE [address] [place] [address] Rolanda Thakur MD [address] [place] [address] Nurse Triage Social History Tobacco Use Types [...] 1145am. Pt is advised to come to [facility] today which is open till 8pm and also open 830am -800pm tomorrow. Pt agrees with this disposition. Pt will [facility] come [facility] today[facility], if unable will come tomorrow. Pt [...] documented in this encounter Plan of Treatment Upcoming Encounters Date Type Department Care Team (Late st Contact Info) Description 11/14/2024 4:00 PM EDT Office Visit [facility] MED & PEDS [address] [place] [address] Rolanda Thakur MD [address] [place] [address] documented as of this encounter Visit Diagnoses Not on filedocumented in this encounter Additional Health Concerns Assessment Noted Time PHQ-9 Depression Total Score: 2 05/13/20 24 9:24 AM EDT documented as of this encounter Care Teams Antichecking Iron Worker Relationship Specialty Start Date End Date Rolanda Thakur MD [address] [place] [address] PCP - General Internal Medicine 09/19/22 documented as of this encounter
--- OUTSIDE RECORDS SUMMARY | 2024-11-09 09:10 | XMS_ITS | Encounter Summary ---
Author Organization [employer] Address [address] [place] [address] Care Team Providers Care Beverage Manager Name Role Phone Rolanda Thakur MD Primary Care Provider [phone] Reason for Visit * Reason Onset Date Comments Referral 06/13/2024 Encounter Details Date Type Department Care Team (Late st Contact Info) Description 06/13/2024 Telephone [facility] MEDICINE [address] [place] [address] Rolanda Thakur MD [address] [place], [place] [phone] Referral Social History Tobacco Use Types Packs/Day [...] referral information request. * Telephone Encounter - Raz Kaleb - 06/13/2024 4:29 PM EDT Tc from pt requesting call back regarding neurology referral. Pt requested nurses do not call between 8:00 to 3:30. documented in this encounter Plan of Treatment Upcoming Encounters Date Type Department Care Team (Late st Contact Info) Description 11/14/2024 4:00 PM EDT Office Visit [facility] MED & PEDS [address] [place] [address] Rolanda Thakur MD [address] [place] [address] documented as of this encounter Visit Diagnoses Not on filedocumented in this encounter Additional Health Concerns Assessment Noted Time PHQ-9 Depression Total Score: 2 05/13/20 24 9:24 AM EDT documented as of this encounter Care Teams Beverage Manager Relationship Specialty Start Date End Date Rolanda Thakur MD [address] [place] [address] PCP - General Internal Medicine 09/19/22 documented as of this encounter
--- OUTSIDE RECORDS SUMMARY | 2024-11-09 09:10 | XMS_ITS | Encounter Summary ---
Author Organization [employer] Address [address] [place] [address] [place] [address] Care Team Providers Care Specialty Development Consultant Name Role Phone Rolanda Thakur MD Primary Care Provider Encounter Details Date Type Department Care Team (Late Contact Info) Description 05/22/2024 Orders Only [facility] MED & PEDS [address] [place] [address] Rolanda Thakur MD [address] [place] [address] Social History Tobacco Use Types Packs/Day Years [...] Description 11/14/2024 4:00 PM EDT Office Visit [facility] [address] [place] [address] Rolanda Thakur MD [address] [place] [address] documented as of this encounter Visit Diagnoses Not on filedocumented in this encounter Additional Health Concerns Assessment Noted Time PHQ-9 Depression Total Score: 2 05/13/20 24 9:24 AM EDT documented as of this encounter Care Teams Specialty Development Consultant Relationship Specialty Start Date End Date Rolanda Thakur MD [address] [place] [address] PCP - General Internal Medicine 09/19/22 documented as of this encounter
--- OUTSIDE RECORDS SUMMARY | 2024-11-09 09:10 | XMS_ITS | Clinical Summary ---
Author Organization [facility] Address [address] [place] [address] Phone Care Team Providers Care Senior Instrumentation Engineer Name Role Phone Rolanda Thakur MD Primary Care Provider [phone] Allergies Active Allergy Reactions Criticality Noted Date [...] aware that this will likely be an [id number] cost and feels as though she can afford it. I will review results and determine need for future follow-up. In the meantime she would like to hold off on statin therapy which I think is totally reasonable. Orders: ECG 12 lead Pure hypercholesterolemia 07/08/2024 Assessment & Plan (07/08/2024 4:42 PM EST): See plan above. Encounters Date Type Department Care Team Description 09/12/2024 Telephone [facility] [address] [phone] Nikki Rawls MD Hypertension 09/07/2024 9:51 AM EST - 09/07/2024 11:59 PM EST Hospital Encounter [facility] Xray [address] [place] [address] Pain Discharge Disposition: Home or Self Care 09/07/2024 9:45 AM EST - 09/07/2024 11:59 PM EST Hospital Encounter [facility] Xray [address] [place] [address] Pain Discharge Disposition: Home or Self Care 08/22/2024 Telephone [facility] [address] [address] scan from Last 3 Months Family History Medical [...] AM EDT [facility]ointment [facility] [address] [phone] 02/13/2025 10:50 AM EDT Office Visit [facility] [address] [phone] Nikki Rawls MD [address] [place] [address] Health Maintenance Due Date Last Done Comments [...] Additional history exists Breast Cancer Screening 10/22/2025 10/23/19, 10/12/2022, 06/08/2021, Additional history exists Colorectal Cancer [...] VIEWS Routine 09/07/2024 10:06 AM EST Pain [facility] SCREENING DIGITAL Routine 10/23/2023 9:44 AM EST Encounter for screening mammogram for malignant neoplasm of breast [facility] DEXA AXIAL SKELETON Routine 04/12/2023 7:46 [...] Signed Date: 09/09/2024 07:17 ET Workstation ID: [id number] Transcribed By: Self Edit Transcribed Date: 09/09/2024 [...] Signed Date: 09/09/2024 07:17 ET Workstation ID: [id number] Transcribed By: Self Edit Transcribed Date: 09/09/2024 [...] Signed Date: 09/09/2024 07:17 ET Workstation ID: [id number] Transcribed By: Self Edit Transcribed Date: 09/09/2024 [...] Signed Date: 09/09/2024 07:17 ET Workstation ID: [id number] Transcribed By: Self Edit Transcribed Date: 09/09/2024 07:11 ET us Jamel Gilbert DC IMG XR PROCEDURES Final Result * [facility] SCREENING DIGITAL (10/23/2023 9:44 AM EST) Anatomical Region Laterality Modality Mammography 10/19/2023 2:21 PM EST Narrative 10/23/2023 9:44 AM EST [facility] Diagnostic Imaging Department [address] [place] [address] [id number] Patient: ??ANGELY PINEDA ?/Age/Sex: 1950 - 73 - F Unit#: ??[id number] ? Location/Status: ??SPDIMAM/REG CLI ? Mnemonic/Ordering Site: ??DIGSC/SPMAIN Ordering Physician: ??MAREN UREÑA MD [facility] Screening Digital - 10/21/23 - 0810 Report Status:Signed EXAM: [facility] Screening Digital EXAM DATE AND TIME: 10/21/2023 8:11 AM HISTORY: ??Screening. COMPARISON: ??10/12/22, 06/08/21, 03/04/20 TECHNIQUE: Bilateral digital breast tomosynthesis was performed in the CC and MLO projections. Computer aided detection with Topadmit 3D 3.1 was employed. TISSUE DENSITY: a. [...] Note Maria Guadalupe Gotti MD - 04/08/2024 [facility] Diagnostic Imaging Department [address] [place] [address] Patient: ANGELY PINEDA YARA /Age/Sex: 1950 73 - F Unit#: [id number] Location/Status: [facility] Mnemonic/Ordering Site: [facility] Ordering Physician: MAREN UREÑA MD [facility] Screening Digital - 10/21/[address]809 Report Status:Signed EXAM: [facility] Screening Digital EXAM DATE AND TIME: 10/21/2023 8:11 AM HISTORY: Screening. COMPARISON: 10/12/22, 06/08/21, 03/04/20 TECHNIQUE: Bilateral digital breast tomosynthesis was performed in the CCand MLO projections. Computer aided detection with Topadmit 3D 3.1was employed. TISSUE DENSITY: a. The [...] MD IMG BI PROCEDURES Final Result * [facility] DEXA AXIAL SKELETON (04/12/2023 7:46 AM EDT) Anatomical Region Laterality Modality Mammography 04/11/2023 3:03 PM EDT Narrative 04/12/2023 7:46 AM EDT [facility] Diagnostic Imaging Department [address] [place] [address] Patient: ??ANGELY PINEDA ?/Age/Sex: 1950 - 72 - F Unit#: ??[id number] ? Location/Status: ??SPDIMAM/REG CLI ? Mnemonic/Ordering Site: ??MAMDEXAAX/SPMAM Ordering Physician: ??MAREN UREÑA MD [facility] Dexa Axial Skeleton - 04/11/23 153 Report Status:Signed HISTORY: ??The patient is a [...] probability of hip fracture of 2.2%. Code 71587 Dictating Physician: ??GWENDOLYN BAHENA MD Electronically Signed by: ??GWENDOLYN BAHENA MD Dic Date/Time: ??04/12/23 0745 Sign date/Time: ??04/12/23 0746 Procedure Note Gwendolyn Bahena MD - 09/26/2023 [facility] Diagnostic Imaging Department [address] [place] [address] Patient: ANGELY PINEDA /Age/Sex: 1950 - 72 - F Unit#: [id number] Location/Status: SPDIMAM/REG CLI Mnemonic/Ordering Site: MAMDEXAAX/SPMAM Ordering Physician: MAREN UREÑA MD [facility] Dexa Axial Skeleton - 04/11/23 - 6688 Report Status:Signed HISTORY: The patient is a [...] density of the femurs bilaterally is 0.874 gm/ft5qpffa is 87% of that of young normals [...] probability of hip fracture of 2.2%. Code 74290 Dictating Physician: GWENDOLYN BAHENA MD Electronically Signed by: GWENDOLYN BAHENA MD Dic Date/Time: 04/12/23 0745 Sign date/Time: 04/12/23 0746 Maren Ureña MD IMG BI PROCEDURES Final Result from Last 3 Months or Most Recently Relevant to Health Maintenance Insurance [employer] [place] [address] Care Teams Senior Instrumentation Engineer Relationship Specialty Start Date End Date Rolanda Thakur MD [address] [place] [address] PCP - General 11/03/23
--- OUTSIDE RECORDS SUMMARY | 2024-11-09 09:10 | XMS_ITS | Encounter Summary ---
Author Organization [employer] Address [address] [place] [address] [place] [address] Care Team Providers Care Printing Screen Assembler Name Role Phone Rolanda Thakur MD Primary Care Provider [phone]- [phone] Reason for Visit * Reason Onset Date Comments Referral 07/31/2024 Encounter Details Date Type Department Care Team ([facility] Contact Info) Description 07/31/2024 Telephone [facility] CHC MED & PEDS [address] [place] [address] Rolanda Thakur MD [address] [place] [address] Referral Social History Tobacco Use Types Packs/Day [...] [place]. Referaal was [facility] on 07[facility] documented in this encounter Plan of Treatment Upcoming Encounters Date Type Department Care Team (Late st Contact Info) Description 11/14/2024 4:00 PM EDT Office Visit [facility] MED & PEDS [address] [place] [address] Rolanda Thakur MD [address] [place] [address] documented as of this encounter Visit Diagnoses Not on filedocumented in this encounter Additional Health Concerns Assessment Noted Time PHQ-9 Depression Total Score: 2 05/13/20 24 9:24 AM EDT documented as of this encounter Care Teams Printing Screen Assembler Relationship Specialty Start Date End Date Rolanda Thakur MD [address] [place] [address] PCP - General Internal Medicine 09/19/22 documented as of this encounter
--- OUTSIDE RECORDS SUMMARY | 2024-11-09 09:10 | XMS_ITS | Encounter Summary ---
Author Organization [employer] Address [address] [place] [address] Care Team Providers Care Welder Operator Name Role Phone Rolnada Thakur MD Primary Care Provider [phone]- [phone] Reason for Referral * Consultation (Routine) - Closed Specialty Diagnoses / Procedures Referred By Freddy t Referred To Contact Chiropractic Medicine Diagnoses Chronic left-sided low back pain with left-sided sciatica Rolanda Thakur MD [address] [place] [address] Phone: tel: fax: [facility] fax: Referral ID Status Reason Start Date Expiration Date V isits Requested Visits Authorized [id number] Closed Specialty Services Required 08/08/2024 08/08/2025 1 1 * Consultation (Routine) - Closed Specialty Diagnoses / Procedures Referred By Freddy t Referred To Contact Physical Therapy Diagnoses Chronic left-sided low back pain with left-sided sciatica Rolanda Thakur MD [address] [place] [address] Phone: tel: fax: [facility] [place] [address] [place] [address] Phone: tel: fax: Referral ID Status Reason Start Date Expiration Date V isits Requested Visits Authorized [id number] Closed Specialty Services Required 08/05/2024 08/05/2025 1 1 * Consultation (Routine) - Closed Specialty Diagnoses / Procedures Referred By Freddy meadows Referred To Contact Chiropractic Medicine Diagnoses Chronic left-sided low back pain with left-sided sciatica Rolanda Thakur MD [address] [place] [address] Phone: tel: fax: Referral ID Status Reason Start Date Expiration Date V isits Requested Visits Authorized [id number] Closed Specialty Services Required 08/02/2024 08/02/2025 1 1 Encounter Details Date Type Department Care Team ([facility] Contact Info) Description 08/02/[address] [facility] CHC MED & PEDS [address] [place] [address] Rolanda Thakur MD [address] [place] [address] Chronic left-sided low back pain with left-sided [...] Upcoming Encounters Date Type Department Care Team ([facility] st Contact Info) Description 11/14/2024 4:00 PM EDT Office Visit [facility] MED & PEDS [address] [place] [address] Rolanda Thakur MD [address] [place] [address] Scheduled Referrals Name Type Priority Associated Diagnoses [...] EST ? [facility] ?1961 [facility] [address] ? [place] [address] ?XRay Report ? Signed ? Patient: Angely Pineda ?MR#: [id number] ? : 1950 ?Acct:[id number] ? Age/Sex: 74 / F ?ADM Date: 08/12/24 ? Loc: HO.[facility]GCX ? Attending Dr: Wyatt Golden MD ? Ordering Physician: Wyatt Golden MD ?? Date of Service: 08/12/24 ?? Procedure(s): XR cervical spine 5V ?? Accession Number(s): [id number] ? cc: Rolanda Thakur MD; Wyatt Golden [...] MD in OV> ? 09/02/24 1121 ? DD/DT: 08/12/ 0950 ? TD/TT: 08/12/24 1000 ? Commodities Broker: ? Procedure Note Donotuseinterpreter, Image - 09/02/2024 [facility] Primary Care [facility] [place] [address] XRay Report Signed Patient: Erma Pineda#: [id number] : 1950cct:[id number] Age/Sex: 74 / FADM Date: 08/12/24 Loc: HO.HMGCX Attending Dr: Wyatt Golden MD Ordering Physician: Wyatt Golden MD Date of Service: 08/12/24 Procedure(s): XR cervical spine 5V Accession Number(s): [id number] cc: Rolanda Thakur MD; Wyatt Golden MD [...] 09/02/24 1121 DD/ 0950 TD/TT: 08/12/24 1000 Commodities Broker: us Wyatt Mcdonald MD IMG XR PROCEDURES Iftikhar mecca Result - Final documented in this encounter Visit Diagnoses Diagnosis Chronic left-sided low back pain with left-sided sciatica- Primary documented in this encounter Additional Health Concerns Assessment Noted Time PHQ-9 Depression Total Score: 2 05/13/20 24 9:24 AM EDT documented as of this encounter Care Teams Welder Operator Relationship Specialty Start Date End Date Rolanda Thakur MD [address] [place] [address] PCP - General Internal Medicine 09/19/22 documented as of this encounter
--- OUTSIDE RECORDS SUMMARY | 2024-11-09 09:10 | XMS_ITS | Encounter Summary ---
Author Organization [employer] Address [address] [place] [address] [place] [address] Care Team Providers Care Acting Instructor Name Role Phone Rolanda Thakur MD Primary Care Provider [phone]- [phone] Reason for Visit * Reason Onset Date Comments CT scan order 07/03/2024 Encounter Details Date Type Department Care Team ([facility] Contact Info) Description 07/03/2024 Telephone [facility] CHC MED & PEDS [address] [place] [address] Rolanda Thakur MD [address] [place] [address] CT scan order Social History Tobacco Use [...] incorrect location. Pt prefers being seen in [facility]. Please call pt to clarify. documented in this encounter Plan of Treatment Upcoming Encounters Date Type Department Care Team ([facility] st Contact Info) Description 11/14/2024 4:00 PM EDT Office Visit [facility] MED & PEDS [address] [place] [address] Rolanda Thakur MD [address] [place] [address] documented as of this encounter Visit Diagnoses Not on filedocumented in this encounter Additional Health Concerns Assessment Noted Time PHQ-9 Depression Total Score: 2 05/13/20 24 9:24 AM EDT documented as of this encounter Care Teams Acting Instructor Relationship Specialty Start Date End Date Rolanda Thakur MD [address] [place] [address] PCP - General Internal Medicine 09/19/22 documented as of this encounter
--- OUTSIDE RECORDS SUMMARY | 2024-11-09 09:10 | XMS_ITS | Encounter Summary ---
Author Organization [employer] Address [address] [place] [address] Care Team Providers Care Flat Optical Element Maker Name Role Phone Rolanda Thakur MD Primary Care Provider [phone]- [phone] Reason for Visit * Reason Onset Date Comments EKG 06/18/2024 Encounter Details Date Type Department Care Team ([facility] st Contact Info) Description 06/18/2024 Telephone [facility] CHC MED & PEDS [address] [place] [address] Rolanda Thakur MD [address] [place] [address] EKG Social History Tobacco Use Types Packs/Day [...] Given pt's symptoms, she would need a [facility] appointment to get the notes for our gas specialist to process the referral. * Telephone [...] should seek a neurology referral. She states cut pressman advised her to get a referral due to procedure done for cataracts might have struck a nerve and that might be were the headaches are coming from. * Telephone Encounter - Annabella Peña - 06/18/2024 4:03 PM EDT Tc from pt requesting status on order for EKG. Contact Paulette at [phone] documented in this encounter Plan of Treatment Upcoming Encounters Date Type Department Care Team (Late st Contact Info) Description 11/14/2024 4:00 PM EDT Office Visit [facility] MED & PEDS [address] [place] [address] Rolanda Thakur MD [address] [place] [address] documented as of this encounter Visit Diagnoses Not on filedocumented in this encounter Additional Health Concerns Assessment Noted Time PHQ-9 Depression Total Score: 2 05/13/20 24 9:24 AM EDT documented as of this encounter Care Teams Flat Optical Element Maker Relationship Specialty Start Date End Date Rolanda Thakur MD [address] [place] [address] PCP - General Internal Medicine 09/19/22 documented as of this encounter
[2024-11-09 09:11] VITALS: BP 156/70; PULSE 69; RESP 16; TEMP 36.7; O2SAT 99; BMI 25.9
--- NOTE | 2024-11-09 09:11 | AM.OFFWIN_ITS ---
Intake Vital Signs 11/09/24 09:11 Height 5 ft 4 in Weight 151 lb BMI 25.9 BP 156/70 H Blood Pressure Location Rt brachial Position Sitting Respiration 16 Pulse 69 Pulse Source Pulse Oximeter Temp 98.1 F Temp Source Oral Pulse Oximetry (%) 99 Oxygen Delivery Method Room Air Intake Visit Reasons: EP tight chest, congestion Intake Note: Pt is here today c/o chest congestion that started yesterday Patient Tobacco Use Status: Never used Tobacco Allergies ciprofloxacin Allergy (Verified 11/09/24 09:18) Unknown sulfamethoxazole [From Bactrim] Allergy (Verified 11/09/24 09:18) Unknown trimethoprim [From Bactrim] Allergy (Verified 11/09/24 09:18) Unknown gabapentin [GABAPENTIN] Adverse Reaction (Mild, Verified 11/09/24 09:18) NAUSEA acetaminophen [From PERCOCET] Adverse Reaction (Unknown, Verified 11/09/24 09:18) VOMITTING codeine [CODEINE] Adverse Reaction (Unknown, Verified 11/09/24 09:18) VOMITTING meperidine [From DEMEROL] Adverse Reaction (Unknown, Verified 11/09/24 09:18) VOMITTING morphine [MORPHINE] Adverse Reaction (Unknown, Verified 11/09/24 09:18) CANT OPEN HER EYES oxycodone [From PERCOCET] Adverse Reaction (Unknown, Verified 11/09/24 09:18) VOMITTING scallops [SCALLOPS] Adverse Reaction (Unknown, Verified 11/09/24 09:18) ABD PAIN Medication List - Last Reconciled 11/09/24 by Tariq Zavaleta MD amlodipine 5 mg PO DAILY ascorbic acid (vitamin C) (Vitamin C) PO aspirin 1 tab PO DAILY azithromycin (Zithromax Z-Yahir) take 500 mg today (day 1), then 250 mg for 4 days (days 2-5) PO 5 days cholecalciferol (vitamin D3) 50 mcg PO DAILY clonazepam 0.5 mg PO DAILY PRN clonidine HCl mg PO 3XD cyanocobalamin (vitamin B-12) 500 mcg PO DAILY famotidine 20 mg PO BEDTIME glipizide mg PO ketoconazole 2% 1 appl topical DAILY 3 days ketorolac 0.5% drps ophthalmic (eye) levothyroxine (Synthroid) 137 mcg PO QAM losartan 50 mg PO DAILY metformin 500 mg PO BID multivitamin 1 tab PO DAILY mupirocin 2% 1 appl topical BID-TID vitamin B complex 1 tab PO DAILY HPI EP tight chest, congestion HPI Details Pt presents w/ 2 days chest congestion and feverishness as well as swollen glands She notes 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 She also notes that she has white coat syndrome. 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 Tobacco Use Status: Never used Tobacco Review of Systems Const Denies chills, Denies fatigue, Denies fever(s), Denies headache(s) and Denies weakness ENT Denies dizziness and Denies headache(s) Card Denies chest pain, Denies lightheadedness, Denies dyspnea and Denies other (Palpitations) Resp Reports chest congestion, Reports cough, Denies dyspnea, Denies wheezing and Denies other ( shortness of breath) Musc Denies numbness and Denies tingling Neuro Denies dizziness, Denies headache(s), Denies numbness, Denies tingling, Denies paresthesias and Denies weakness Psych Denies anxiety and Denies depression Endo Denies fatigue Aller/Immun Denies wheezing Physical Exam Vital Signs: Last Vital Signs Temp 98.1 F 11/09/24 09:11 Pulse 69 11/09/24 09:11 Resp 16 11/09/24 09:11 BP 156/70 H 11/09/24 09:11 Pulse Ox 99 11/09/24 09:11 Oxygen Delivery Method Room Air 11/09/24 09:11 BMI result Body Mass Index 25.9 Const General: no acute distress and well developed Nutritional Appearance: well nourished Orientation/consciousness: patient oriented x3 HEENT Other: mildly enlarged anterior cervical chain lymph nodes, mildly tender Head: Yes normocephalic and Yes atraumatic Eyes General: appearance normal, both eyes and all related structures Pupils: Equal, round and reactive pupils present EOM: EOMs intact bilaterally Resp Other: coarse breath sounds without diminished breath sounds Effort & Inspection: normal respiratory effort Auscultation: clear to auscultation bilaterally Cardio Rate: regular rate Rhythm: regular rhythm Heart sounds: S1 normal heart sound present, S2 normal heart sound present, no g allops, no murmurs and no rubs Neuro General: patient oriented x3 and gait normal Cranial nerves: Yes Equal, round and reactive pupils present Psych Affect: normal affect Assessment & Plan Assessment & Plan (1) Bronchitis: Code(s): J40 - Bronchitis, not specified as acute or chronic Plan: start Z-Yahir drink plenty of fluids and rest (2) Viral illness: Code(s): B34.9 - Viral infection, unspecified Plan: likely underlying viral illness check COVID/flu / RSV-swab sent to lab will have patient stay out of work until Monday. Can return on Monday (3) HTN (hypertension): Code(s): I10 - Essential (primary) hypertension Qualifiers: Hypertension type: primary hypertension Qualified Code(s): I10 - Essential (primary) hypertension Plan: hypertension with white coat syndrome. Patient says her blood pressure at home today was normal she has clonidine which she takes for anxiety as well as blood pressure. Will have her take an additional clonidine if her blood pressures are high when she gets home. Orders: Orders Complete Blood Count Auto Diff Today B34.9 - Viral infection, unspecified, Z00.00 - Encounter for general adult medical examination without abnormal findings SARS-CoV2/FLU/RSV Today B34.9 - Viral infection, unspecified, Z20.822 - Contact with and (suspected) exposure to COVID-19 Basic Metabolic Panel Today B34.9 - Viral infection, unspecified, Z00.00 - Encounter for general adult medical examination without abnormal findings Medications: New azithromycin (Zithromax Z-Yahir) take 500 mg today (day 1), then 250 mg for 4 days (days 2-5) PO 5 days 6 tabs 0RF Coding Level of Care Code Est Pt Level 3 (68161) Diagnoses Bronchitis J40 Viral illness B34.9 Primary hypertension I10 Hypertension type: primary hypertension
--- OUTSIDE RECORDS SUMMARY | 2024-11-09 09:11 | XMS_ITS | Clinical Summary ---
Author Organization [employer] Address [address] [place] [address] 7 [place] [address] Care Team Providers Care Store Host Name Role Phone Rolanda Thakur MD Primary Care Provider [phone] Allergies Active Allergy Reactions Criticality Noted Date [...] complication, without long-term current use of insulin ([facility]) Chew 4 tablets (16 g) if needed for low blood sugar. 50 tablet 12 4 025 Active glucose blood (Rocket Reliefuch Ultra) test stripIndications:T ype 2 diabetes mellitus without complication, without long-term current use of insulin ([facility]) USE DIRECTED TO TEST BLOOD GLUCOSE TWICE DAILY 100 strip 11 4 Active metFORMIN (Glucophage) 500 MG tabletIndications: Type 2 diabetes mellitus without complication, without long-term current use of insulin ([facility]) TAKE 1 TABLET BY MOUTH TWICE DAILY [...] each 11 5 025 Active Continuous Glucose Appliance Mechanic (Dexcom G7 Appliance Mechanic) deviceIndications: Type 2 diabetes mellitus without complication, without long-term current use of insulin ([facility]/HCC) 1 each Once per day for 1 [...] Plan: Augmentin BID x 10 days Nasal [place] Follow up if worsening or no improvement [...] intervention , [facility], Patient to engage in OP therapy , and Patient to reach out to [facility] as needed Swelling of lip, tongue, and throat 05/10/2024 Assessment & Plan (05/22/2024 1:00 PM EDT): Patient reports episodes of swelling of exposure to different antigens, at this moment given recurrence and symptoms affecting patients daily, will strongly benefit of assessment from gre tutor to help elucidate etiology of symptoms. Peripheral [...] organization. Date Type Department Care Team Description 11/07/2024 Orders Only [address] [address] Rolanda Thakur MD Type 2 diabetes mellitus without complication, without long-term current use of insulin ([facility]) (Primary Dx); Benign essential hypertension 11/06/[address] [address] Rolanda Thakur MD Appointment Request 10/31/[address] [address] Rolanda Thakur MD Call Back Request 10/31/[address] [address] Rolanda Thakur MD FYI ; Call Back Request 10/31/[address] [address] Rolanda Thakur MD Nurse Triage 10/28/2024 Telephone [facility] [address] [place] [address] Rolanda Thakur MD 10/23/2024 Telephone [facility] [address] [place] [address] Apple Britton, Carleen 10/14/2024 Patient Outreach [facility] [address] [place] [address] Rolanda Thakur MD Care Coordination (CHW outreach for SDOH-patient declined to participate ) 10/14/[address] [address] Rolanda Thakur MD 10/11/2024 3:45 PM EST Office Visit [facility] [address] [place] [address] Rolanda Thakur MD Type 2 diabetes mellitus without complication, without long-term current use of insulin ([facility]) (Primary Dx); Generalized anxiety disorder with panic attacks; Financial difficulties; Meralgia paresthetica of right side 10/11/2024 Telephone [facility] [address] [place] [address] Rolanda Thakur MD FYI 10/11/2024 Travel 10/08/2024 Telephone [facility] [address] [place] [address] Rolanda Thakur MD Change PCP 10/08/2024 Orders Only [facility] [address] [place] [address] Rolanda Thakur MD Type 2 diabetes mellitus without complication, without long-term current use of insulin (CMS/HCC) (Primary Dx) 10/08/2024 Telephone [facility] [address] [place] [address] Rolanda Thakur MD 09/24/2024 Orders Only GENERIC EXTERNAL DATA DEPARTMENT Provider, Generic External Data 09/24/2024 Telephone [facility] [address] [place] [address] Rolanda Thakur MD Nurse Triage 09/23/2024 Telephone [facility] [address] [place] [address] Huong Heredia, MINOO 09/23/2024 Orders Only [facility] [address] [place] [address] Rolanda Thakur MD Acquired hypothyroidism (Primary Dx); Benign essential hypertension 09/18/2024 Refill [facility] [address] [place] [address] Wyatt Huizar MD Neck pain on left side 09/17/2024 Refill [facility] [address] [place] [address] Rolanda Thakur MD Diabetic polyneuropathy associated with type 2 diabetes mellitus (CMS/HCC) 09/15/2024 Refill [facility] [address] [place] [address] Rolanda Thakur MD 09/10/2024 3:45 PM EST Office Visit [facility] [address] [place] [address] Rolanda Thakur MD Type 2 diabetes mellitus without complication, without long-term current use of insulin ([facility]) (Primary Dx); Diabetic polyneuropathy associated with type 2 diabetes mellitus (CMS/HCC); Spondylosis of cervical region without myelopathy or radiculopathy; Benign essential hypertension 09/10/2024 Travel 09/04/2024 Refill [facility] [address] [place] [address] Rolanda Thakur MD Anxiety; Benign essential hypertension 08/27/2024 Refill [facility] [address] [place] [address] Rolanda Thakur MD Type 2 diabetes mellitus without complication, without long-term current use of insulin (CMS/HCC) 08/26/2024 Orders Only [facility] [address] [place] [address] Rolanda Thakur MD Type 2 diabetes mellitus without complication, without long-term current use of insulin (CMS/[facility]) (Primary Dx) 08/23/2024 Refill [facility] [address] [place] [address] Rolanda Thakur MD 08/20/2024 Refill [facility] [address] [place] [address] Rolanda Thakur MD 08/20/2024 Refill [facility] [address] [place] [address] Rolanda Thakur MD 08/20/2024 Refill [facility] [address] [place] [address] Karoline Castañeda MD Acquired hypothyroidism 08/20/2024 Refill [facility] [address] [place] [address] Karen Alcantar MD 08/19/2024 Refill [facility] [address] [place] [address] Wyatt Huizar MD Neck pain on left side 08/19/2024 Refill [facility] [address] [place] [address] Wyatt Huizar MD Neck pain on left side 08/19/2024 Refill [facility] [address] [place] [address] Rolanda Thakur MD Panic attack; Anxiety 08/17/2024 10:40 AM EST Office Visit [facility] [address] [place] [address] Uday Rodriguez MD Cracked skin (Primary Dx); Sciatica, unspecified laterality 08/17/2024 Refill [facility] [address] [place] [address] Rolanda Thakur MD 08/17/[address] [address] Rolanda Thakur MD 08/17/2024 Travel 08/15/2024 Refill [facility] [address] [place] [address] Rolanda Thakur MD Vitamin D deficiency 08/13/2024 Refill [facility] [address] [place] [address] Rolanda Thakur MD Vitamin D deficiency 08/13/2024 Refill [facility] [address] [place] [address] Maren Hough MD 08/13/2024 Telephone [facility] [address] [place] [address] Rolanda Thakur MD from Last 3 Months Immunizations Name Administration [...] 10/11/2024 3:39 PM EST Plan of Treatment Upcoming Encounters Date Type Department Care Team ([facility] st Contact Info) Description 11/14/2024 4:00 PM EDT Office Visit [facility] [address] [place] [address] Rolanda Thakur MD [address] [place] [address] Health Maintenance Due Date Last Done Comments [...] 8:30 AM EST Screening for colon cancer HEPATITIS C AB W/REFL TO HCV RNA, [...] use of insulin (CMS/HCC) Decreased GFR POCT GLYCATED HEMOGLOBIN, TOTAL Routine 07/06/2024 9:32 AM EST Type 2 diabetes mellitus without complication, without long-term current use of insulin ([facility]) HM IFOBT Routine 01/03/2022 from Last 3 Months or Most Recently Relevant to Health Maintenance Results * POCT Glucose (10/11/2024 4:11 PM EST) Glucose Blood, POC 185 60 - 200 mg/dL [employer] Lot # [id number] Lot# Expiration Date [id number] Comment:random Blood Capillary blood specimen / Unknown 10/11/2024 4:11 PM EST Rolanda Thakur MD POINT OF CARE TEST ENTER/ED IT ORDERABLES Final Result * (ABNORMAL) Basic Metabolic Panel, Fasting (09/24/2024 1:40 PM EST) Sodium 139 135 - 145 mmol/L [facility] Potassium 3.8 3.3 - 5.1 mmol/L [facility] Chloride 106 96 - 108 mmol/L [facility] Carbon Dioxide 22 22 - 29 mmol/L [facility] Anion Gap 15 12 - 20 [facility] Urea Nitrogen (BUN) 13 9 - 16 mg/dL [facility] Creatinine, Serum 0.94 0.5 - 1.4 mg/dL [facility] Estimated Glomerular Filt Rate 58 [facility] Comment:Chronic Kidney Disea se: Estimated GFR < 60 mL/min/[id number] Kidney Disease: Estimated GFR < 15 mL/min/1.73m2 Glucose Fasting 169(H) 60 - 99 mg/dL [facility] Comment:A fasting glucose of 126 mg/dl or greater on more than oneoccasion is considered diagnostic of diabetes. Calcium 9.9 8.4 - 10.2 mg/dL [facility] Blood Venous blood specimen / Unknown 09/24/2024 1:40 PM EST 09/24/2024 4:21 PM EST us Rolanda Thakur MD LAB BLOOD ORDERABLES Final Result Performing Organization Address [facility] Co de Phone Number [facility] [address] [place] [phone] * TSH W/Reflex to FT4 (09/24/2024 1:40 PM EST) TSH reflex Free T4 0.38 0.32 - 4.0 uIU/mL [facility] Blood Venous blood specimen / Unknown 09/24/2024 1:40 PM EST 09/24/2024 4:21 PM EST us Rolanda Thakur MD LAB BLOOD ORDERABLES Final Result Performing Organization Address [facility] Co de Phone Number [facility] [address] [place] [phone] * Aldosterone/Plasma Renin Activity Ratio, LC/MS/MS (09/24/2024 1:40 PM EST) Aldosterone 2 see note ng/dL [facility] Comment:Unable to flag abnor mal result(s), please refer to reference range(s) below:Adult Reference Ranges for Aldosterone, LC/MS/MS: Upright 8:00 - 10:00 am < or = 28 ng/dL Upright 4:00 - 6:00 pm < or = 21 ng/dL Supine 8:00 - 10:00 am 3 - 16 ng/dLTHIS TEST WAS PERFORMED AT:[employer] [place] [address]VJGLLBZTHEO PEDERSEN MD,PHD Plasma Renin Activity 0.52 0.25 - 5.82 ng/mL/h [facility] Aldosterone/Renin Ratio 3.8 0.9 - 28.9 Ratio [facility] Comment:This test was develo ped and its analytical performancecharacteristics have been determined by [employer] [place], [place]. It hasnot been cleared or approved by the U.S. Food and DrugAdministration. This assay has been validated pursuantto the CLIA regulations and is used for clinicalpurposes.THIS TEST WAS PERFORMED AT:[employer]/[facility] [place] [address]GZUXJRSTHEO PEDERSEN MD,PHD Blood Venous blood specimen / Unknown 09/24/2024 1:40 PM EST 09/24/2024 4:21 PM EST us Rolanda Thakur MD LAB BLOOD ORDERABLES Final Result [facility] [address] [place] [phone] * (ABNORMAL) CBC auto differential (09/24/2024 1:40 PM EST) White Blood Count 7.0 4.8 - 10.8 X10*3/uL [facility] Red Blood Count 4.23 4.20 - 5.50 X10*6/uL [facility] Hemoglobin 12.6 12.0 - 16.0 g/dl [facility] Hematocrit 37.0 37.0 - 47.0 % [facility] Mean Corpuscular Volume 87.5 80.0 - 98.0 fL [facility] Mean Corpuscular Hemoglobin 29.8 27.0 - 33.0 pg [facility] Mean Corpuscular HGB Conc 34.1 31.0 - 35.0 g/dl [facility] Red Cell Distribution Width 12.8 11.0 - 16.0 % [facility] Platelet Count 251 160 - 400 X10*3/uL [facility] Mean Platelet Volume 9.5 9.4 - 12.3 fL [facility] Neutrophils Percent Auto 59.8 45 - 73 % [facility] Imm Gran Pct Auto 0.3 0.0 - 0.4 % [facility] Lymphocytes Percent Auto 26.1 20 - 40 % [facility] Monocytes Percent Auto 8.6 2 - 11 % [facility] Eosinophils Percent Auto 4.3(H) 0 - 4 % [facility] Basophils Percent Auto 0.9 0 - 2 % [facility] NRBC Pct Auto 0.0 0.0 - 0.2 /100WBC [facility] Neutrophils Absolute Auto 4.2 2.0 - 8.3 x10*3/uL [facility] Imm Gran Abs Auto 0.02 0.00 - 0.03 X10*3/uL [facility] Lymphocytes Absolute Auto 1.8 1.2 - 4.9 X10*3/uL [facility] Monocytes Absolute Auto 0.6 0.1 - 1.2 X10*3/uL [facility] Eosinophils Absolute Auto 0.3 0.0 - 0.4 X10*3/uL [facility] Basophils Absolute Auto 0.1 0.0 - 0.2 X10*3/uL [facility] NRBC Abs Auto 0.000 0.0 - 0.012 X10*3/uL [facility] Blood Venous blood specimen / Unknown 09/24/2024 1:40 PM EST 09/24/2024 4:21 PM EST us Rolanda Thakur MD LAB BLOOD ORDERABLES Final Result [facility] [address] [place] [phone] * SARS-CoV-2 RNA, Influenza A/B, and RSV RNA, Ql NAAT (09/24/2024 12:14 PM EST) Influenza A PCR NEGATIVE Negative [facility] Influenza B PCR NEGATIVE Negative [facility] Resp Syncy Virus RNA Qual PCR NEGATIVE Negative [facility] SARS COV2 PCR NEGATIVE Negative [facility] Comment:All test results mus t [...] use by authorized laboratories.Testing performed on the [employer] GeneXpert utilizingreal-time RT-PCR.All SARS CoV2 and positive influenza A/B results arereported to [facility]. 09/24/2024 12:1 4 PM EST 09/24/2024 5:34 PM EST us Generic External Data Provider LAB MICROBIOLOGY - GENERAL ORDERABLES Final Result Performing Organization Address City/State/[facility] Co de Phone Number [facility] [address] [place] [phone] [phone] * XR CERVICAL SPINE 5V (08/12/2024 9:50 AM EST) Anatomical Region Laterality Modality Abdomen Radiographic Gabriella ging 08/12/2024 9:50 AM EST Narrative 09/02/2024 11:24 AM EST ? [facility] ?[address] ? [place] [address] ?XRay Report ? Signed ? Patient: Angely Pineda ?MR#: [id number] ? : 1950 ?Acct:[id number] ? Age/Sex: 74 / F ?ADM Date: 08/12/24 ? Loc: HO.[facility]GCX ? Attending Dr: Wyatt Golden MD ? Ordering Physician: Wyatt Golden MD ?? Date of Service: 08/12/24 ?? Procedure(s): XR cervical spine 5V ?? Accession Number(s): [id number] ? cc: Rolanda Thakur MD; Wyatt Golden [...] 11:21 AM EST ? Dictated By: ?Yuridia Bceerra MD ? Signed By: ?<Electronically signed by Yuridia Becerra MD in OV> ? 09/02/24 1121 ? DD/ 0950 ? TD/TT: 08/12/24 1000 ? Ceramic Chemist: ? Procedure Note Marian, Image - 09/02/2024 [facility] [address] [place] [address] [place] [address] XRay Report Signed Patient: Erma Pineda#: [id number] : 1950cct:[id number] Age/Sex: 74 / FADM Date: 08/12/24 Loc: .[facility]GCX Attending Dr: Wyatt Golden MD Ordering Physician: Wyatt Golden MD Date of Service: 08/12/24 Procedure(s): XR cervical spine 5V Accession Number(s): [id number] cc: Rolanda Thakur MD; Wyatt Golden MD [...] 09/02/24 1121 DD/ 0950 TD/TT: 08/12/24 1000 Ceramic Chemist: Wyatt Mcdonald MD IMG XR PROCEDURES Iftikhar mecca Result - Final * Cologuard?? colon cancer screening (08/09/2024 8:30 AM EST) Pathologist [facility] Cologuard Result Negative Negative 08/18/20 11:52 PM EST [email or web address] (CLIA #:[id number]) Comment: NEGATIVE TEST RESULT. A negative Cologuard [...] cancer. ??Following a negative Cologuard result, the [place] [employer] and U.S. Multi-Society Task Force screening guidelines recommend a Cologuard re-screening interval of 3 years. References: [place] [employer] Guideline for Colorectal Cancer Screening: https://www.cancer.org/cancer/iytba-hslyom-vjczja/twvjgnsax-elnvishcf-plubdlg/ac s-rec ommendations.html.; Santiago MCINTYRE, Ileana PERERA, Emery OLIVER, Colorectal Cancer Screening: Recommendations for Physicians and Patients from the U.S. Multi-Society Task Force on Colorectal Cancer Screening , Am J Gastroenterology 2017; 112:2032-3333. TEST DESCRIPTION: Composite algorithmic analysis of stool [...] (Dioni Kelly al, N Engl J Med 2014;370(14):5115-0453.) Cologuard may produce a false negative or false positive result (no colorectal cancer or precancerous polyp present at colonoscopy follow up). A negative Cologuard test result does not guarantee the absence of CRC or advanced adenoma (pre-cancer). The current Cologuard screening interval is every 3 years. ([place] [employer] and U.S. Multi-Society Task Force). Cologuard performance data in a 10,000 patient pivotal study using colonoscopy as the reference method can be accessed at the following location: www.[employer]/results. Additional description of the Cologuard test process, warnings and precautions can be found at www.cologuard.com. Stool specimen (specimen) 08/09/2024 8:30 AM EST 08/10/2024 2:47 PM EST Rolanda Thakur MD LAB MOLECULAR DIAGNOSTICS O RDERABLES Final Result Performing Organization Address City/[facility]/ZIP Co de Phone Number [email or web address] (CLIA #:[id number]) [address] [place] [address], * Hepatitis C Antibody with Reflex to HCV, RNA, Quantitative, Real-Time PCR (07/17/2024 3:20 PM EST) Hepatitis C Antibody Nonreactive Nonreactive [facility] Comment:Antibodies to HCV no t detected; does not exclude early acuteHCV infection. Blood Venous blood specimen / Unknown 07/17/2024 3:20 PM EST 07/17/2024 5:23 PM EST us Rolanda Thakur MD LAB BLOOD ORDERABLES Final Result Performing Organization Address [facility] Co de Phone Number [facility] [address] [place] [phone] * (ABNORMAL) Lipid Panel, Standard (07/17/2024 3:20 PM EST) Triglycerides 89 <150 mg/dL [facility] Comment:Desirable Triglyceri de: less than 150 mg/dLBorderline High Triglyceride 150-199 mg/dLHigh Triglyceride: 200-499 mg/dLVery High Triglyceride: greater than or equal to 5OO mg/dL Cholesterol 193 <200 mg/dL [facility] Comment:Desirable Cholestero l: less than 200 mg/dLBorderline High Cholesterol: 200-239 mg/dLHigh Cholesterol: greater than 239 mg/dL LDL Cholesterol Calculated 111(H) <100 mg/dL [facility] Comment:Desirable LDL: less than 100 mg/dLNear Optimal/Above Optimal LDL: 110- 129 mg/dLBorderline High LDL: 130-159 mg/dLHigh LDL: 160-189 mg/dLVery High LDL: greater than or equal to 190 mg/dL HDL Cholesterol 65 >40 mg/dL [facility] Comment:Desirable HDL: great er than 40 mg/dL Note: This HDL assay may give artificially low results in patients with liver disease. Blood Venous blood specimen / Unknown 07/17/2024 3:20 PM EST 07/17/2024 5:23 PM EST us Rolanda Thakur MD LAB BLOOD ORDERABLES Final Result Performing Organization Address [facility]/ZIP Co de Phone Number [facility] [address] [place] [phone] * Albumin, Random Urine W/Creatinine (07/17/2024 2:55 PM EST) Creatinine, Urine 38.88 mg/dL [facility] Microalbumin Urine <5.0 mg/L [facility] Microalbum Creatinine Ratio Ur TNP <30 ug/mg cr [facility] Comment:Unable to calculate albumin/creatinine ratio due to lowmicroalbumin or creatinine result. Urine (Urine, Random) 07/17/2024 2:55 PM EST 07/17/2024 5:25 PM EST us Rolanda Thakur MD LAB URINE ORDERABLES Final Result Performing Organization Address [facility] Co de Phone Number [facility] [address] [place] [phone] * (ABNORMAL) POCT HGB A1C (07/06/2024 [...] Most Recently Relevant to Health Maintenance Insurance [facility] MEDICARE REPLACEMENT Care Teams Store Host Relationship Specialty Start Date End Date Rolanda Thakur MD [address] [place] [phone] PCP - General Internal Medicine 09/19/22
--- OUTSIDE RECORDS SUMMARY | 2024-11-09 09:11 | XMS_ITS | Encounter Summary ---
Author Organization [employer] Address [address] [facility] [address] [facility] [place] [address] Care Team Providers Care Director Stars Name Role Phone Rolanda Thakur MD Primary Care Provider [phone] Encounter Details Date Type Department Care Team ([facility] Contact Info) Description 10/28/2024 Telephone [facility] [address] [place] [address] Rolanda Thakur MD [address] [place] [address] Social History Tobacco Use Types Packs/Day Years [...] Description 11/14/2024 4:00 PM EDT Office Visit [facility] [address] [place] [address] Rolanda Thakur MD [address] [place] [address] documented as of this encounter Visit Diagnoses Not on filedocumented in this encounter Additional Health Concerns Assessment Noted Time PHQ-9 Depression Total Score: 2 05/13/20 24 9:24 AM EDT documented as of this encounter Care Teams Director Stars Relationship Specialty Start Date End Date Rolanda Thakur MD [address] [place] [address] PCP - General Internal Medicine 09/19/22 documented as of this encounter
--- OUTSIDE RECORDS SUMMARY | 2024-11-09 09:11 | XMS_ITS | Encounter Summary ---
Author Organization [employer] Address [address] [place] [address] 7 [place] [address] Care Team Providers Care Quarry Manager Name Role Phone Rolanda Thakur MD Primary Care Provider [phone] Encounter Details Date Type Department Care Team (Late Contact Info) Description 04/08/[address] [facility] [address] [place], [place] [phone] Rolanda Thakur MD [address] [place], [place] [phone] UTI symptoms (Primary Dx) Social History Tobacco [...] Description 11/14/2024 4:00 PM EDT Office Visit [facility] [address] [place], [place] [phone] Rolanda Thakur MD [address] [place], [place] [phone] documented as of this encounter Visit Diagnoses Diagnosis UTI symptoms- Primary documented in this encounter Care Teams Quarry Manager Relationship Specialty Start Date End Date Rolanda Thakur MD [address] [place] [phone] PCP - General Internal Medicine 09/19/22 documented as of this encounter
--- OUTSIDE RECORDS SUMMARY | 2024-11-09 09:11 | XMS_ITS | Encounter Summary ---
Author Organization [employer] Address [address] [place] [address] Care Team Providers Care Flag Decorator Name Role Phone Rolanda Thakur MD Primary Care Provider Encounter Details Date Type Department Care Team (Late Contact Info) Description 12/28/2023 Orders Only [facility] MED & PEDS [address] [place] [address] Rolanda Thakur MD [address] [place] [address] Social History Tobacco Use Types Packs/Day Years [...] Description 11/14/2024 4:00 PM EDT Office Visit [facility] MED & [facility]EDS [address] [place] [address] Rolanda Thakur MD [address] [place] [address] documented as of this encounter Visit Diagnoses Not on filedocumented in this encounter Care Teams Flag Decorator Relationship Specialty Start Date End Date Rolanda Tahkur MD [address] [place] [address] PCP - General Internal Medicine 09/19/22 documented as of this encounter
--- OUTSIDE RECORDS SUMMARY | 2024-11-09 09:11 | XMS_ITS | Encounter Summary ---
Author Organization [employer] Address [address] [place] [address] Care Team Providers Care Otr Truck Driver Name Role Phone Rolanda Thakur MD Primary Care Provider [phone] Reason for Referral * Consultation (Routine) - Authorized Specialty Diagnoses / Procedures Referred By Contac t Referred To Contact Endocrinology Diagnoses Type 2 diabetes mellitus without complication, without long-term current use of insulin (CMS/HCC) Benign essential hypertension Rolanda Thakur MD [address] [place] [address] Phone: tel: fax: [facility] [address] [place] [address] Phone: tel: fax: Referral ID Status Reason Start Date Expiration Date Visits Requested Visits Authorized [id number] Authorized Specialty Services Required 11/07/2024 11/07/2025 1 1 Encounter Details Date Type Department Care Team (Late st Contact Info) Description 11/07/2024 Orders Only [facility] MEDICINE [address] [place] [address] Rolanda Thakur MD [address] [place] [address] Type 2 diabetes mellitus without complication, without long-term current use of insulin (CMS/HCC) (Primary Dx); Benign essential hypertension Social History [...] Upcoming Encounters Date Type Department Care Team ([facility] st Contact Info) Description 11/14/2024 4:00 PM EDT Office Visit [facility] MED & PEDS [address] [place] [address] Rolanda Thakur MD [address] [place] [address] Scheduled Referrals Name Type Priority Associated Diagnoses Orde r Schedule Referral to Endocrinology Outpatient Referral Routine Type 2 diabetes mellitus without complication, without long-term current use of insulin ([facility]) Benign essential hypertension Expected: 11/07/2024 (Approximate), Expires: 11/07/2025 documented as of this encounter Visit Diagnoses Diagnosis Type 2 diabetes mellitus without complication, without long-term current use of insulin ([facility])- Primary Benign essential hypertension Essential hypertension, benign documented in this encounter Additional Health Concerns Assessment Noted Time PHQ-9 Depression Total Score: 2 05/13/20 24 9:24 AM EDT documented as of this encounter Care Teams Otr Truck Driver Relationship Specialty Start Date End Date Rolanda Thakur MD [address] [place] [address] PCP - General Internal Medicine 09/19/22 documented as of this encounter
--- OUTSIDE RECORDS SUMMARY | 2024-11-09 09:11 | XMS_ITS | Encounter Summary ---
Author Organization [employer] Address [address] [place] [address] [place] [address] Care Team Providers Care Journal Box Inspector Name Role Phone Rolanda Thakur MD Primary Care Provider [phone]- [phone] Reason for Visit * Reason Comments Care Coordination CHW outreach for SDO H-patient declined to participate Encounter Details Date Type Department Care Team (Latest Contact Info) Description 10/14/2024 Patient Outreach [facility] CHC MED & PEDS [address] [place] [address] Rolanda Thakur MD [address] [place] [address] Care Coordination (CHW outreach for SDOH-patient declined [...] Upcoming Encounters Date Type Department Care Team ([facility] st Contact Info) Description 11/14/2024 4:00 PM EDT Office Visit [facility] MED & PEDS [address] [place] [address] Rolanda Thakur MD [address] [place] [address] documented as of this encounter Visit Diagnoses Not on filedocumented in this encounter Additional Health Concerns Assessment Noted Time PHQ-9 Depression Total Score: 2 05/13/20 9:24 AM EDT documented as of this encounter Care Teams Journal Box Inspector Relationship Specialty Start Date End Date Rolanda Thakur MD [address] [place] [address] PCP - General Internal Medicine 09/19/22 documented as of this encounter
--- OUTSIDE RECORDS SUMMARY | 2024-11-09 09:11 | XMS_ITS | Encounter Summary ---
Author Organization [employer] Address [address] [facility] 7 [place] [address] Care Team Providers Care Cabinetmaker Supervisor Name Role Phone Rolanda Thakur MD Primary Care Provider [phone] Reason for Visit * Reason Onset Date Comments Durable Medical Equipment 04/29/2024 Encounter Details Date Type Department Care Team (Late st Contact Info) Description 04/29/[address] [facility] MEDICINE [address] [place] [address] Rolanda Thakur MD [address] [place] [address] Durable Medical Equipment Social History Tobacco Use [...] - 04/29/2024 3:34 PM EDT Tc from [facility] pharmacy stating pt is requesting blood pressure monitor but they don't have a script. If any questions you can contact [employer] at [phone]. documented in this encounter Plan of Treatment Upcoming Encounters Date Type Department Care Team ([facility] st Contact Info) Description 11/14/2024 4:00 PM EDT Office Visit [facility] MED & PEDS [address] [place] [address] Rolanda Thakur MD [address] [place] [address] documented as of this encounter Visit Diagnoses Not on filedocumented in this encounter Care Teams Cabinetmaker Supervisor Relationship Specialty Start Date End Date Rolanda Thakur MD [address] [place] [address] PCP - General Internal Medicine 09/19/22 documented as of this encounter
--- OUTSIDE RECORDS SUMMARY | 2024-11-09 09:11 | XMS_ITS | Encounter Summary ---
Author Organization [employer] Address [address] [place] [address] Care Team Providers Care Bicycle Taxi Driver Name Role Phone Rolanda Thakur MD Primary Care Provider Reason for Referral * Consultation (Routine) - Closed Specialty Diagnoses / Procedures Referred By Contac t Referred To Contact Behavioral Health Diagnoses Anxiety Rolanda Thakur MD [address] [place] [address] Phone: tel: fax: Referral ID Status Reason Start Date Expiration Date V isits Requested Visits Authorized [id number] Closed Specialty Services Required 05/02/2024 05/02/2025 1 1 Encounter Details Date Type Department Care Team ([facility] Contact Info) Description 05/02/2024 Orders Only [facility] CHC MED & PEDS [address] [place] [address] Rolanda Thakur MD [address] [place] [address] Anxiety (Primary Dx) Social History Tobacco Use [...] Description 11/14/2024 4:00 PM EDT Office Visit [facility] MED & PEDS [address] [place] [address] Rolanda Thakur MD [address] [place] [address] Scheduled Referrals Name Type Priority Associated Diagnoses Order Schedule Referral to Behavioral Health Outpatient Referral Routine Anxiety Expected: 05/02/2024 (Approximate), Expires: 05/02/2025 documented as of this encounter Visit Diagnoses Diagnosis Anxiety- Primary Anxiety state, unspecified documented in this encounter Care Teams Bicycle Taxi Driver Relationship Specialty Start Date End Date Rolanda Thakur MD [address] [place] [address] PCP - General Internal Medicine 09/19/22 documented as of this encounter
--- OUTSIDE RECORDS SUMMARY | 2024-11-09 09:11 | XMS_ITS | Encounter Summary ---
Author Organization [employer] Address [address] [place] [address] Care Team Providers Care Financial Operations Clerk Name Role Phone Rolanda Thakur MD Primary Care Provider [phone]- [phone] Reason for Visit * Reason Onset Date Comments Nurse Triage 12/12/2023 Encounter Details Date Type Department Care Team (Late st Contact Info) Description 12/12/2023 Telephone [facility] MEDICINE [address] [place] [address] Rolanda Thakur MD [address] [place] [address] Nurse Triage Social History Tobacco Use Types [...] from pt requesting to speak to PCP director of income taxproduct manager medical device in regards to scheduled sick visit tmr, states was advised to contact PCP before scheduled appt to see how pt is doing, pt stated they still has a severe cough. Critical Care Educator did advised appt is still expected. Pt is scheduled tmr 12/15/23 for ( chest congestion, cough , yellow nasal drainage. ) Please contact at [phone] * Telephone Encounter - Viktoria Schultz RN [...] point. Pt is advised to come to [facility] today to be seen since open till 8pm. PT is not sure if will be able to do that. Critical Care Educator contacted Haylie Barrientos [facility] and asked if would be possible to schedule Pt at [facility] 12/15/23 340pm apt which Pt would [...] Description 11/14/2024 4:00 PM EDT Office Visit [facility] MED & PEDS [address] [place] [address] Rolanda Thakur MD [address] [place] [address] documented as of this encounter Visit Diagnoses Not on filedocumented in this encounter Care Teams Financial Operations Clerk Relationship Specialty Start Date End Date Rolanda Thakur MD [address] [place] [address] PCP - General Internal Medicine 09/19/22 documented as of this encounter
--- OUTSIDE RECORDS SUMMARY | 2024-11-09 09:11 | XMS_ITS | Clinical Summary ---
Author Organization [facility] Address [address] [place], [place] [id number] Care Team Providers Care Prison Psychiatrist Name Role Phone Rahel Hough MD Primary Care Provider [phone] Allergies Active Allergy Reactions Criticality Noted Date [...] mg by mouth daily. 0 09/09/2020 Active [place]-3 Fatty Acids (FISH OIL) 1000 MG CAPS [...] age to complete this topic Care Teams Prison Psychiatrist Relationship Specialty Start Date End Date Rahel Hough MD [address] [facility] [place] [address] PCP - General Internal Medicine 11/20/20
--- OUTSIDE RECORDS SUMMARY | 2024-11-09 09:11 | XMS_ITS | Encounter Summary ---
Author Organization [employer] Address [address] [facility] 7 [place] [address] Care Team Providers Care Studio Technician Video Operator Name Role Phone Rolanda Thakur MD Primary Care Provider [phone] Encounter Details Date Type Department Care Team ([facility] st Contact Info) Description 10/14/2024 Telephone [facility] MEDICINE [address] [place] [address] Rolanda Thakur MD [address] [place] [address] Social History Tobacco Use Types Packs/Day Years [...] for patient to contact Harleen Manuel at [phone]. documented in this encounter Plan of Treatment Upcoming Encounters Date Type Department Care Team ([facility] st Contact Info) Description 11/14/2024 4:00 PM EDT Office Visit [facility] MED & PEDS [address] [place] [address] Rolanda Thakur MD [address] [place] [address] documented as of this encounter Visit Diagnoses Not on filedocumented in this encounter Additional Health Concerns Assessment Noted Time PHQ-9 Depression Total Score: 2 05/13/20 24 9:24 AM EDT documented as of this encounter Care Teams Studio Technician Video Operator Relationship Specialty Start Date End Date Rolanda Thakur MD [address] [place] [address] PCP - General Internal Medicine 09/19/22 documented as of this encounter
--- OUTSIDE RECORDS SUMMARY | 2024-11-09 09:11 | XMS_ITS | Encounter Summary ---
Author Organization [employer] Address [address] [place] [address] [place] [address] Care Team Providers Care Wash House Supervisor Name Role Phone Rolanda Thakur MD Primary Care Provider Reason for Visit * Reason Onset Date Comments Medication Question 12/08/2022 Encounter Details Date Type Department Care Team ([facility] st Contact Info) Description 12/08/2022 Telephone [facility] CHC MED & PEDS [address] [place] [address] Rolanda Thakur MD [address] [place] [address] Medication Question Social History Tobacco Use Types [...] 11/14/2024 4:00 PM EDT Office Visit [facility] [address] [place] [address] Rolanda Thakur MD [address] [place] [address] documented as of this encounter Visit Diagnoses Not on filedocumented in this encounter Care Teams Wash House Supervisor Relationship Specialty Start Date End Date Rolanda Thakur MD [address] [place] [address] PCP - General Internal Medicine 09/19/22 documented as of this encounter
--- OUTSIDE RECORDS SUMMARY | 2024-11-09 09:11 | XMS_ITS | Encounter Summary ---
Author Organization [employer] Address [address] [place] [id number] Care Team Providers Care Supervisor Doping Name Role Phone Rolanda Thakur MD Primary Care Provider [phone]- [phone] Reason for Referral * Consultation (Routine) - Closed Specialty Diagnoses / Procedures Referred By Freddy meadows Referred To Contact Behavioral Health Diagnoses Generalized anxiety disorder with panic attacks Financial difficulties Rolanda Thakur MD [address] [place] [address] Phone: tel: fax: Referral ID Status Reason Start Date Expiration Date V isits Requested Visits Authorized [id number] Closed Specialty Services Required 10/11/2024 10/11/2025 1 0 * Consultation (Routine) - Closed Specialty Diagnoses / Procedures Referred By Freddy meadows Referred To Contact Diagnoses Financial Rolanda Marin MD [address] [place] [address] Phone: tel: fax: [address] [phone] Phone: tel: fax: Referral ID Status Reason Start Date Expiration Date V isits Requested Visits Authorized [id number] Closed Specialty Services Required 10/11/2024 10/11/2025 1 1 * Consultation (Routine) - Authorized Specialty Diagnoses / Procedures Referred By Contac t Referred To Contact Pharmacy Diagnoses Type 2 diabetes mellitus without complication, without long-term current use of insulin (CMS/HCC) Rolanda Thakur MD [address] [place] [address] Phone: tel: fax: Referral ID Status Reason Start Date Expiration Date Visits Requested Visits Authorized [id number] Authorized Consult and Treat 10/11/2024 10/11/2025 6 6 Reason for Visit * Reason Comments Diabetes Encounter Details Date Type Department Care Team ([facility] Contact Info) Description 10/11/2024 3:45 PM EST Office Visit [facility] [address] [place] [address] Rolanda Thakur MD [address] [place] [address] Type 2 diabetes mellitus without complication, without [...] from different offices including her chiropractor, her Sales Solutions Associate, her Manager Media Relations etc. Admits having less panic attacks otherwise. [...] blood sugar. 50 tablet 12 glucose blood ([employer] Mobile Ultra) test strip USE DIRECTED TO TEST BLOOD GLUCOSE TWICE DAILY 100 strip 11 losartan (Cozaar) 100 MG tablet TAKE 1 TABLET(100 MG) BY MOUTH IN THE MORNING 90 tablet 1 metFORMIN (Glucophage) 500 MG tablet TAKE 1 TABLET BY MOUTH TWICE DAILY WITH MEALS 180 tablet 0 Multiple Vitamin (Daily-Saadia Multivitamin) tablet TAKE 1 TABLET BY MOUTH EVERY DAY 30 tablet 11 whuoyiar-kkbenahxyc-dxovqnszx (Neosporin) 5-400-5000 ointment Apply topically 4 times daily. 3.5 g 0 [employer] Lancets 33G [facility] Use to check blood sugar four times daily Synthroid 125 MCG tablet TAKE 1 TABLET BY MOUTH ON MONDAY, MONDAY, AND MONDAY AND ALTERNATE [id number] MCG ON MONDAY, MONDAY, MONDAY, AND MONDAY 36 tablet 3 Synthroid 125 MCG tablet TAKE 1 TABLET BY MOUTH ON MONDAY, MONDAY, AND MONDAY AND ALTERNATE [id number] MCG ON MONDAY, MONDAY, MONDAY, AND MONDAY [...] complication, without long-term current use of insulin ([facility]) Comments: the CGM was prescribed. Patient will need to be educated on how to use the device. Orders: - POCT Glucose - Continuous Glucose [employer] (Dexcom G7 [employer]) device; 1 each Once per day for 1 day. - Continuous Glucose Sensor (Dexcom G7 Sensor) misc; 1 Units Once per day AND 1 Units Once per day.Apply 1 sensor every 10 days. - Referral [...] Description 11/14/2024 4:00 PM EDT Office Visit [facility] [address] [place], [place] [phone] Rolanda Thakur MD [address] [place] [address] Scheduled Referrals Name Type Priority Associated Diagnoses Orde r Schedule Referral to Pharmacy CDTM Outpatient Referral Routine Type 2 diabetes mellitus without complication, without long-term current use of insulin ([facility]) Ordered: 10/11/2024 Referral to Care Management Outpatient [...] complication, without long-term current use of insulin ([facility]) documented in this encounter Results * POCT Glucose (10/11/2024 4:11 PM EST) Glucose Blood, POC 185 60 - 200 mg/dL QC Media Lot # [id number] Lot# Expiration Date [id number] Comment:random Blood Capillary blood specimen / Unknown 10/11/2024 4:11 PM EST Rolanda Thakur MD POINT OF CARE TEST ENTER/ED IT ORDERABLES Final Result documented in this encounter Visit Diagnoses Diagnosis Type 2 diabetes mellitus without complication, without long-term current use of insulin ([facility])- Primary Generalized anxiety disorder with panic attacks Financial difficulties Inadequate material resources Meralgia paresthetica of right side documented in this encounter Additional Health Concerns Assessment Noted Time PHQ-9 Depression Total Score: 2 05/13/20 24 9:24 AM EDT documented as of this encounter Care Teams Supervisor Doping Relationship Specialty Start Date End Date Rolanda Thakur MD [address] [place] [phone] PCP - General Internal Medicine 09/19/22 documented as of this encounter
--- OUTSIDE RECORDS SUMMARY | 2024-11-09 09:11 | XMS_ITS | Encounter Summary ---
Author Organization [employer] Address [address] [place] [address] Care Team Providers Care Seal Mixing Operator Name Role Phone Rolanda Thakur MD Primary Care Provider Encounter Details Date Type Department Care Team (Late Contact Info) Description 12/07/2023 Telephone [facility] [address] [place], [place] [phone] Rolanda Thakur MD [address] [place] [address] Social History Tobacco Use Types Packs/Day Years [...] Description 11/14/2024 4:00 PM EDT Office Visit [facility] [address] [place], [place] [phone] Rolanda Thakur MD [address] [place], [place] [phone] documented as of this encounter Visit Diagnoses Not on filedocumented in this encounter Care Teams Seal Mixing Operator Relationship Specialty Start Date End Date Rolanda Thakur MD [address] [place] [phone] PCP - General Internal Medicine 09/19/22 documented as of this encounter
--- OUTSIDE RECORDS SUMMARY | 2024-11-09 09:11 | XMS_ITS | Encounter Summary ---
Author Organization [employer] Address [address] [place] [address] [facility] [place] [address] Care Team Providers Care Pen And Pencil Repairer Name Role Phone Rolanda Thakur MD Primary Care Provider [phone] Reason for Referral * Consultation (Routine) - Closed Specialty Diagnoses / Procedures Referred By Freddy meadows Referred To Contact Neurology Diagnoses Other polyneuropathy Rolanda Thakur MD [address] [place] [address] Phone: tel: fax: [facility] [address] [place], [place] Phone: tel: fax: Referral ID Status Reason Start Date Expiration Date V isits Requested Visits Authorized [id number] Closed Specialty Services Required 11/22/2023 11/21/2024 1 1 * Consultation (Routine) - Closed Specialty Diagnoses / Procedures Referred By Freddy meadows Referred To Contact Physiatry Diagnoses Other polyneuropathy Rolanda Thakur MD [address] [place] [address] Phone: tel: fax: Referral ID Status Reason Start Date Expiration Date V isits Requested Visits Authorized [id number] Closed Specialty Services Required 11/17/2023 11/16/2024 1 1 Encounter Details Date Type Department Care Team (Late Contact Info) Description 11/16/2023 Orders Only [facility] [address] [place] [address] Rolanda Thakur MD [address] [place] [address] Other polyneuropathy (Primary Dx) Social History Tobacco [...] 4:00 PM EDT Office Visit [facility] [address] [place] [address] Rolanda Thakur MD [address] [place] [address] Scheduled Referrals Name Type Priority Associated Diagnoses Orde r Schedule Referral to Physiatry Outpatient Referral Routine Other polyneuropathy Expected: 11/17/2023 (Approximate), Expires: 11/16/2024 Referral to Neurology Outpatient Referral Routine Other polyneuropathy Expected: 11/22/2023 (Approximate), Expires: 11/21/2024 documented as of this encounter Visit Diagnoses Diagnosis Other polyneuropathy- Primary documented in this encounter Care Teams Pen And Pencil Repairer Relationship Specialty Start Date End Date Rolanda Thakur MD [address] [place] [address] PCP - General Internal Medicine 09/19/22 documented as of this encounter
--- OUTSIDE RECORDS SUMMARY | 2024-11-09 09:11 | XMS_ITS | Encounter Summary ---
Author Organization [employer] Address [address] [place] [address] Care Team Providers Care Boner Meat Name Role Phone Rolanda Thakur MD Primary Care Provider [phone]- [phone] Reason for Visit * Reason Onset Date Comments Nurse Triage 10/31/2024 Encounter Details Date Type Department Care Team (Late st Contact Info) Description 10/31/2024 Telephone [facility] [address] [place] [address] Rolanda Thakur MD [address] [place] [address] Nurse Triage Social History Tobacco Use Types [...] in ED and to call back to [phone] to make that arrangement. Protocol Used: No [...] Description 11/14/2024 4:00 PM EDT Office Visit [facility] [address] [place] [address] Rolanda Thakur MD [address] [place] [address] documented as of this encounter Visit Diagnoses Not on filedocumented in this encounter Additional Health Concerns Assessment Noted Time PHQ-9 Depression Total Score: 2 05/13/20 24 9:24 AM EDT documented as of this encounter Care Teams Boner Meat Relationship Specialty Start Date End Date Rolanda Thakur MD [address] [place] [address] PCP - General Internal Medicine 09/19/22 documented as of this encounter
--- OUTSIDE RECORDS SUMMARY | 2024-11-09 09:11 | XMS_ITS | Encounter Summary ---
Author Organization [employer] Address [address] [place] [address] 7 [place] [address] Care Team Providers Care Spinning Frame Cleaner Name Role Phone Rolanda Thakur MD Primary Care Provider [phone] Encounter Details Date Type Department Care Team ([facility] st Contact Info) Description 09/23/2024 Orders Only [facility] [address] [place] [address] Rolanda Thakur MD [address] [place] [address] Acquired hypothyroidism (Primary Dx); Benign essential hypertension [...] Upcoming Encounters Date Type Department Care Team ([facility] Contact Info) Description 11/14/2024 4:00 PM EDT Office Visit [facility] [address] [place] [address] Rolanda Thakur MD [address] [place] [address] Scheduled Orders Name Type Priority Associated Diagnoses [...] PM EST) Aldosterone 2 see note ng/dL [facility] Comment:Unable to flag abnor mal result(s), please refer to reference range(s) below:Adult Reference Ranges for Aldosterone, LC/MS/MS: Upright 8:00 - 10:00 am < or = 28 ng/dL Upright 4:00 - 6:00 pm < or = 21 ng/dL Supine 8:00 - 10:00 am 3 - 16 ng/dLTHIS TEST WAS PERFORMED AT:[employer] [id number] [place] [id number] PEDERSEN MD,PHD Plasma Renin Activity 0.52 0.25 - 5.82 ng/mL/h [facility] Aldosterone/Renin Ratio 3.8 0.9 - 28.9 Ratio [facility] Comment:This test was develo ped and its analytical performancecharacteristics have been determined by [employer] [place], [place]. It hasnot been cleared or approved by the U.S. Food and DrugAdministration. This assay has been validated pursuantto the CLIA regulations and is used for clinicalpurposes.THIS TEST WAS PERFORMED AT:[employer] [id number] [place] [id number] PEDERSEN MD,PHD Blood Venous blood specimen / Unknown 09/24/2024 1:40 PM EST 09/24/2024 4:21 PM EST us Rolanda Thakur MD LAB BLOOD ORDERABLES Final Result [facility] [address] [place] [phone] * TSH W/Reflex to FT4 (09/24/2024 1:40 PM EST) TSH reflex Free T4 0.38 0.32 - 4.0 uIU/mL [facility] Blood Venous blood specimen / Unknown 09/24/2024 1:40 PM EST 09/24/2024 4:21 PM EST Rolanda Thakur MD LAB BLOOD ORDERABLES Final Result [facility] [address] [place] [phone] * (ABNORMAL) Basic Metabolic Panel, Fasting (09/24/2024 1:40 PM EST) Sodium 139 135 - 145 mmol/L [facility] Potassium 3.8 3.3 - 5.1 mmol/L [facility] Chloride 106 96 - 108 mmol/L [facility] Carbon Dioxide 22 22 - 29 mmol/L [facility] Anion Gap 15 12 - 20 [facility] Urea Nitrogen (BUN) 13 9 - 16 mg/dL [facility] Creatinine, Serum 0.94 0.5 - 1.4 mg/dL [facility] Estimated Glomerular Filt Rate 58 [facility] Comment:Chronic Kidney Disea se: Estimated GFR < 60 mL/min/[id number] Kidney Disease: Estimated GFR < 15 mL/min/1.73m2 Glucose Fasting 169(H) 60 - 99 mg/dL [facility] Comment:A fasting glucose of 126 mg/dl or greater on more than oneoccasion is considered diagnostic of diabetes. Calcium 9.9 8.4 - 10.2 mg/dL [facility] Blood Venous blood specimen / Unknown 09/24/2024 1:40 PM EST 09/24/2024 4:21 PM EST us Rolanda Thakur MD LAB BLOOD ORDERABLES Final Result [facility] [address] [place] [address] [phone] * (ABNORMAL) CBC auto differential (09/24/2024 1:40 PM EST) White Blood Count 7.0 4.8 - 10.8 X10*3/uL [facility] Red Blood Count 4.23 4.20 - 5.50 X10*6/uL [facility] Hemoglobin 12.6 12.0 - 16.0 g/dl [facility] Hematocrit 37.0 37.0 - 47.0 % [facility] Mean Corpuscular Volume 87.5 80.0 - 98.0 fL [facility] Mean Corpuscular Hemoglobin 29.8 27.0 - 33.0 pg [facility] Mean Corpuscular HGB Conc 34.1 31.0 - 35.0 g/dl [facility] Red Cell Distribution Width 12.8 11.0 - 16.0 % [facility] Platelet Count 251 160 - 400 X10*3/uL [facility] Mean Platelet Volume 9.5 9.4 - 12.3 fL [facility] Neutrophils Percent Auto 59.8 45 - 73 % [facility] Imm Gran Pct Auto 0.3 0.0 - 0.4 % [facility] Lymphocytes Percent Auto 26.1 20 - 40 % [facility] Monocytes Percent Auto 8.6 2 - 11 % [facility] Eosinophils Percent Auto 4.3(H) 0 - 4 % [facility] Basophils Percent Auto 0.9 0 - 2 % [facility] NRBC Pct Auto 0.0 0.0 - 0.2 /100WBC [facility] Neutrophils Absolute Auto 4.2 2.0 - 8.3 x10*3/uL [facility] Imm Gran Abs Auto 0.02 0.00 - 0.03 X10*3/uL [facility] Lymphocytes Absolute Auto 1.8 1.2 - 4.9 X10*3/uL [facility] Monocytes Absolute Auto 0.6 0.1 - 1.2 X10*3/uL [facility] Eosinophils Absolute Auto 0.3 0.0 - 0.4 X10*3/uL [facility] Basophils Absolute Auto 0.1 0.0 - 0.2 X10*3/uL [facility] NRBC Abs Auto 0.000 0.0 - 0.012 X10*3/uL [facility] Blood Venous blood specimen / Unknown 09/24/2024 1:40 PM EST 09/24/2024 4:21 PM EST us Rolanda Thakur MD LAB BLOOD ORDERABLES Final Result [facility] [address] [place] [address] [phone] documented in this encounter Visit Diagnoses Diagnosis Acquired hypothyroidism- Primary Unspecified hypothyroidism Benign essential hypertension Essential hypertension, benign documented in this encounter Additional Health Concerns Assessment Noted Time PHQ-9 Depression Total Score: 2 05/13/20 24 9:24 AM EDT documented as of this encounter Care Teams Spinning Frame Cleaner Relationship Specialty Start Date End Date Rolanda Thakur MD [address] [place] [phone] PCP - General Internal Medicine 09/19/22 documented as of this encounter
--- OUTSIDE RECORDS SUMMARY | 2024-11-09 09:11 | XMS_ITS | Encounter Summary ---
Author Organization [employer] Address [address] [place] [address] [place] [address] Care Team Providers Care Foundry Worker Apprentice Name Role Phone Rolanda Thakur MD Primary Care Provider Encounter Details Date Type Department Care Team ([facility] st Contact Info) Description 05/01/2023 Orders Only [facility] CHC MED & PEDS [address] [place] [address] Rolanda Thakur MD [address] [place] [address] Diabetic polyneuropathy associated with type 2 diabetes [...] Description 11/14/2024 4:00 PM EDT Office Visit [facility] CHC MED & PEDS [address] [place] [address] Rolanda Thakur MD [address] [place] [address] documented as of this encounter Procedures Procedure Name Priority Date/Time Associated Diagnosis Comments VITAMIN D,25-OH,TOTAL,IA Routine 05/08/2023 11:04 AM EDT Diabetic polyneuropathy associated with type 2 diabetes mellitus (CMS/HCC) TSH W/REFLEX TO FT4 Routine 05/08/2023 1 1:04 AM EDT Diabetic polyneuropathy associated with type 2 diabetes mellitus (CMS/HCC) CBC WITH AUTO DIFFERENTIAL Routine 05/08/2023 11:04 AM EDT Diabetic polyneuropathy associated with type 2 diabetes mellitus (CMS/HCC) HEMOGLOBIN A1C Routine 05/08/2023 11:04 AM EDT Diabetic polyneuropathy associated with type 2 diabetes mellitus (CMS/HCC) HEPATIC FUNCTION PANEL Routine 05/08/2023 11:04 AM EDT Diabetic polyneuropathy associated with type 2 diabetes mellitus (CMS/HCC) LIPID PANEL, STANDARD Routine 05/08/2023 11:04 AM EDT Diabetic polyneuropathy associated with type 2 diabetes mellitus (CMS/HCC) BASIC METABOLIC PANEL Routine 05/08/2023 11:04 AM EDT Diabetic polyneuropathy associated with type 2 diabetes mellitus (CMS/HCC) documented in this encounter Results * (ABNORMAL) Hemoglobin A1c (05/08/2023 11:04 AM EDT) Hemoglobin A1c 6.1(H) <6.0 % [facility] Comment:Hemoglobin A1C Refer ence Range Adults: 4.8 - 6.0 % Non diabetic: < 6.0 % Goal: < 7.0 %Additional Action Suggested: > 8.0 %Note: Hemoglobin A1c results are invalid for patients with abnormal amounts of HbF. Blood transfusions may impact the HbA1c concentration in the patient sample. Estimated Average Glucose 128 mg/dL [facility] Comment:eAG = Estimated ave rage glucose which is %A1C expressed asaverage glucose, using the formula of the W6S-UfxzwzeHnhnmgg Glucose study (ADAG), Diabetes Care, Vol.31,#8,Mar. 2007 Blood Venous blood specimen / Unknown 05/08/2023 11:04 AM EDT 05/08/2023 1:46 PM EDT us Rolanda Thakur MD LAB BLOOD ORDERABLES Final Result [facility] [address] [place] [phone] * Vitamin D, 25-Hydroxy, Total, Immunoassay (05/08/2023 11:04 AM EDT) Vitamin D 25-OH Total 84.6 >30 ng/mL [facility] Comment:Health Based Referen ce Values*< 20 ng/mL Otbvfkqdj90-10 ng/mL Insufficient> 30 ng/mL Sufficient*Arabella MCALLISTER. N [...] BLOOD ORDERABLES Final Result Performing Organization Address [facility] [address] [facility]/ZIP Co de Phone Number [facility] [address] [place] [address] [phone] * Hepatic Function Panel (05/08/2023 11:04 AM EDT) Bilirubin, Total 0.5 0.0 - 1.0 mg/dL [facility] Bilirubin, Direct 0.2 0.0 - 0.5 mg/dL [facility] Aspartate Amino Transferase 22 5 - 31 U/L [facility] Alanine Aminotransferase 18 0 - 31 U/L [facility] Total Protein 7.1 6.5 - 8.0 g/dL [facility] Albumin Level 4.4 3.5 - 5.0 g/dL [facility] Alkaline Phosphatase 70 39 - 117 U/L [facility] Blood Venous blood specimen / Unknown 05/08/2023 11:04 AM EDT 05/08/2023 1:47 PM EDT Rolanda Thakur MD LAB BLOOD ORDERABLES Final Result Performing Organization Address [facility] [address]/[facility] Co de Phone Number [facility] [address] [place] [phone] * (ABNORMAL) Lipid Panel, Standard (05/08/2023 11:04 AM EDT) Triglycerides 110 <150 mg/dL [facility] Comment:Desirable Triglyceri de: less than 150 mg/dLBorderline High Triglyceride 150-199 mg/dLHigh Triglyceride: 200-499 mg/dLVery High Triglyceride: greater than or equal to 5OO mg/dL Cholesterol 198 <200 mg/dL [facility] Comment:Desirable Cholestero l: less than 200 mg/dLBorderline High Cholesterol: 200-239 mg/dLHigh Cholesterol: greater than 239 mg/dL LDL Cholesterol Calculated 121(H) <100 mg/dL [facility] Comment:Desirable LDL: less than 100 mg/dLNear Optimal/Above Optimal LDL: 110- 129 mg/dLBorderline High LDL: 130-159 mg/dLHigh LDL: 160-189 mg/dLVery High LDL: greater than or equal to 190 mg/dL HDL Cholesterol 55 >40 mg/dL [facility] Comment:Desirable HDL: great er than 40 mg/dL Note: This HDL assay may give artificially low results in patients with liver disease. Blood Venous blood specimen / Unknown 05/08/2023 11:04 AM EDT 05/08/2023 1:47 PM EDT us Rolanda Thakur MD LAB BLOOD ORDERABLES Final Result Performing Organization Address [facility] [address]/ZIP Co de Phone Number [facility] [address] [place] [phone] * TSH W/Reflex to FT4 (05/08/2023 11:04 AM EDT) TSH reflex Free T4 0.53 0.32 - 4.0 uIU/mL [facility] Blood 05/08/2023 11:0 4 AM EDT 05/08/2023 1:47 PM EDT us Rolanda Thakur MD LAB BLOOD ORDERABLES Final Result Performing Organization Address [facility] [address]/[facility] Co de Phone Number [facility] [address] [place] [phone] * (ABNORMAL) Basic Metabolic Panel (05/08/2023 11:04 AM EDT) Sodium 137 135 - 145 mmol/L [facility] Potassium 4.4 3.3 - 5.1 mmol/L [facility] Chloride 108 96 - 108 mmol/L [facility] Carbon Dioxide 24 22 - 29 mmol/L [facility] Anion Gap 9(L) 12 - 20 [facility] Urea Nitrogen (BUN) 14 9 - 16 mg/dL [facility] Creatinine, Serum 1.03 0.5 - 1.4 mg/dL [facility] Estimated Glomerular Filt Rate 53 [facility] Comment:NOTE: For -Am erican individuals, multiply the result by 1.210.Chronic Kidney Disease: Estimated GFR < 60 mL/min/1.70b9Pwcbfi Kidney Disease: Estimated GFR < 15 mL/min/1.73m2 Glucose 208(H) 60 - 115 mg/dL [facility] Calcium 10.1 8.4 - 10.2 mg/dL [facility] Blood Venous blood specimen / Unknown 05/08/2023 11:04 AM EDT 05/08/2023 1:47 PM EDT us Rolanda Thakur MD LAB BLOOD ORDERABLES Final Result [facility] [address] [place] [phone] [phone] * (ABNORMAL) CBC auto differential (05/08/2023 11:04 AM EDT) White Blood Count 8.6 4.8 - 10.8 X10*3/uL [facility] Red Blood Count 4.27 4.20 - 5.50 X10*6/uL [facility] Hemoglobin 12.6 12.0 - 16.0 g/dl [facility] Hematocrit 37.9 37.0 - 47.0 % [facility] Mean Corpuscular Volume 88.8 80.0 - 98.0 fL [facility] Mean Corpuscular Hemoglobin 29.5 27.0 - 33.0 pg [facility] Mean Corpuscular HGB Conc 33.2 31.0 - 35.0 g/dl [facility] Red Cell Distribution Width 13.0 11.0 - 16.0 % [facility] Platelet Count 266 160 - 400 X10*3/uL [facility] Mean Platelet Volume 9.5 9.4 - 12.3 fL [facility] Neutrophils Percent Auto 50.3 45 - 73 % [facility] Imm Gran Pct Auto 0.3 0.0 - 0.4 % [facility] Lymphocytes Percent Auto 33.4 20 - 40 % [facility] Monocytes Percent Auto 7.0 2 - 11 % [facility] Eosinophils Percent Auto 7.8(H) 0 - 4 % [facility] Basophils Percent Auto 1.2 0 - 2 % [facility] NRBC Pct Auto 0.0 0.0 - 0.2 /100WBC [facility] Neutrophils Absolute Auto 4.3 2.0 - 8.3 x10*3/uL [facility] Imm Gran Abs Auto 0.03 0.00 - 0.03 X10*3/uL [facility] Lymphocytes Absolute Auto 2.9 1.2 - 4.9 X10*3/uL [facility] Monocytes Absolute Auto 0.6 0.1 - 1.2 X10*3/uL [facility] Eosinophils Absolute Auto 0.7(H) 0.0 - 0.4 X10*3/uL [facility] Basophils Absolute Auto 0.1 0.0 - 0.2 X10*3/uL [facility] NRBC Abs Auto 0.000 0.0 - 0.012 X10*3/uL [facility] Blood Venous blood specimen / Unknown 05/08/2023 11:04 AM EDT 05/08/2023 1:46 PM EDT Rolanda Thakur MD LAB BLOOD ORDERABLES Final Result [facility] [address] [place] [phone] [phone] documented in this encounter Visit Diagnoses Diagnosis Diabetic polyneuropathy associated with type 2 diabetes mellitus (CMS/HCC)- Primary documented in this encounter Care Teams Foundry Worker Apprentice Relationship Specialty Start Date End Date Rolanda Thakur MD [address] [place] [phone] PCP - General Internal Medicine 09/19/22 documented as of this encounter
--- OUTSIDE RECORDS SUMMARY | 2024-11-09 09:11 | XMS_ITS | Encounter Summary ---
Author Organization [employer] Address [address] [place] [address] 7 [place] [address] Care Team Providers Care Principal Technologist Name Role Phone Rolanda Thakur MD Primary Care Provider Reason for Visit * Reason Comments Med Refill Encounter Details Date Type Department [facility] ([facility] Contact Info) Description 12/28/2022 Refill [facility] CH[facility] MED & PEDS [address] [place] [address] Maren Hough MD [address] [place] [address] Type 2 diabetes mellitus without complication, without long-term current use of insulin ([facility]); Anxiety Social History Tobacco Use [...] Upcoming Encounters Date Type Department Care Team ([facility] Contact Info) Description 11/14/2024 4:00 PM EDT Office Visit [facility] MED & PEDS [address] [place] [address] Rolanda Thakur MD [address] [place] [address] documented as of this encounter Visit Diagnoses Diagnosis Type 2 diabetes mellitus without complication, without long-term current use of insulin ([facility]) Anxiety Anxiety state, unspecified documented in this encounter Care Teams Principal Technologist Relationship Specialty Start Date End Date Rolanda Thakur MD [address] [place] [address] PCP - General Internal Medicine 09/19/22 documented as of this encounter
--- OUTSIDE RECORDS SUMMARY | 2024-11-09 09:11 | XMS_ITS | Encounter Summary ---
Author Organization [employer] Address [address] [place] [address] Care Team Providers Care Hospital Insurance Clerk Name Role Phone Rolanda Thakur MD Primary Care Provider [phone]- [phone] Reason for Visit * Reason Onset Date Comments Call Back Request 10/31/2024 Encounter Details Date Type Department Care Team ([facility] st Contact Info) Description 10/31/2024 Telephone [facility] MEDICINE [address] [place] [address] Rolanda Thakur MD [address] [place] [address] Call Back Request Social History Tobacco Use [...] to DR. Castañeda. Please contact pt at [phone]. documented in this encounter Plan of Treatment Upcoming Encounters Date Type Department Care Team ([facility] st Contact Info) Description 11/14/2024 4:00 PM EDT Office Visit [facility] CHC MED & PEDS [address] [place] [address] Rolanda Thakur MD [address] [place] [address] documented as of this encounter Visit Diagnoses Not on filedocumented in this encounter Additional Health Concerns Assessment Noted Time PHQ-9 Depression Total Score: 2 05/13/20 24 9:24 AM EDT documented as of this encounter Care Teams Hospital Insurance Clerk Relationship Specialty Start Date End Date Rolanda Thakur MD [address] [place] [address] PCP - General Internal Medicine 09/19/22 documented as of this encounter
--- OUTSIDE RECORDS SUMMARY | 2024-11-09 09:11 | XMS_ITS | Encounter Summary ---
Author Organization [employer] Address [address] [place] [address] Care Team Providers Care Vice President Talent Management Name Role Phone Rolanda Thakur MD Primary Care Provider +1- [phone] Encounter Details Date Type Department Care Team (Late Contact Info) Description 01/22/2024 Orders Only [facility] MED & PEDS [address] [place] [address] Rolanda Thakur MD [address] [place] [address] Benign essential hypertension Social History Tobacco Use [...] Description 11/14/2024 4:00 PM EDT Office Visit [facility] MED & PEDS [address] [place] [address] Rolanda Thakur MD [address] [place], [place] [phone] documented as of this encounter Procedures Procedure Name Priority Date/Time Associated Diagnosis Comments XR TOES 2+ VIEWS RIGHT Routine 02/19/2024 11:22 AM EDT documented in this encounter Results * XR Toes 2+ Views Right (02/19/2024 11:22 AM EDT) Anatomical Region Laterality Modality Lower Extremities, Toes Left Radiogra phic Imaging 02/19/2024 11:2 2 AM EDT Narrative 02/19/2024 12:38 PM EDT ?[facility] ?[address] ?[place] [address] ?XRay Report ? Signed ? Patient: Lorna Pinedahryn ?MR#: [id number] ? : 1950 ?Acct:[id number] ? Age/Sex: 73 / F ?ADM Date: 02/19/24 ? Loc: HO.[facility] ? Attending Dr: Migdalia PALMER ? Ordering Physician: Migdalia Loza ?? Date of Service: 02/19/24 ?? Procedure(s): XR toe RT min 2V ?? Accession Number(s): [id number] ? cc: Migdalia Loza ? EXAMINATION: ?? [...] ?? described above. ? Dictated By: ?Billy Mosquead MD ? Signed By: ?<Electronically signed by Billy Mosqueda MD in OV> ? 02/19/24 1234 ? DD/ 1122 ? TD/TT: ? Music Autographer: SS ? Procedure Note Donotuseinterpreter, Image - 02/19/[address] [address] XRay Report Signed Patient: Angely PinedaMR#: [id number] : 1950cct:[id number] Age/Sex: 73 / FADM Date: 02/19/24 [facility] Dr: Migdalia PALMER Ordering Physician: Migdalia Loza Date of Service: 02/19/24 Procedure(s): XR toe RT min 2V Accession Number(s): [id number] cc: Migdalia Loza EXAMINATION: BILATERAL TOES CLINICAL [...] in OV> 02/19/24 1234 DD/ 1122 TD/TT: Music Autographer: SS Migdalia PALMER IMG XR PROCEDURES Edited Resul t - Final documented in this encounter Visit Diagnoses Diagnosis Benign essential hypertension Essential hypertension, benign documented in this encounter Care Teams Vice President Talent Management Relationship Specialty Start Date End Date Rolanda Thakur MD [address] [place] [address] PCP - General Internal Medicine 09/19/22 documented as of this encounter
--- OUTSIDE RECORDS SUMMARY | 2024-11-09 09:11 | XMS_ITS | Encounter Summary ---
Author Organization [employer] Address [address] [place] [address] Care Team Providers Care Patient Portal Concierge Name Role Phone Rolanda Thakur MD Primary Care Provider +1- [phone] Reason for Visit * Reason Onset Date Comments Medication Question 04/04/2024 Encounter Details Date Type Department Care Team (Late st Contact Info) Description 04/04/2024 Telephone [facility] MEDICINE [address] [place] [address] Rolanda Thakur MD [address] [place], [place] [phone] Medication Question Social History Tobacco Use Types [...] 4:00 PM EDT Office Visit [facility] MED & PEDS [address] [place] [address] Rolanda Thakur MD [address] [place] [address] documented as of this encounter Visit Diagnoses Not on filedocumented in this encounter Care Teams Patient Portal Concierge Relationship Specialty Start Date End Date Rolanda Thakur MD [address] [place] [address] PCP - General Internal Medicine 09/19/22 documented as of this encounter
--- OUTSIDE RECORDS SUMMARY | 2024-11-09 09:11 | XMS_ITS | Encounter Summary ---
Author Organization [employer] Address [address] [place] [address] [place] [address] Care Team Providers Care Manager Background Name Role Phone Rolanda Thakur MD Primary Care Provider Reason for Visit * Reason Onset Date Comments Medication Question 12/09/2022 Encounter Details Date Type Department Care Team ([facility] st Contact Info) Description 12/09/2022 Telephone [facility] CHC MED & PEDS [address] [place] [address] Rolanda Thakur MD [address] [place] [address] Medication Question Social History Tobacco Use Types [...] - 12/09/2022 3:51 PM EDT Tc from [facility] requesting a clarification in new script for Synthroid 50 MCG tablet if dosage was sent incorrectly because in last script (levothyroxine (Synthroid) 150 MCG tablet) it [id number] MCG and New script is it 50 mcg so pharmacy is requesting some clarification Please contact Pharmacy at [phone] documented in this encounter Plan of Treatment Upcoming Encounters Date Type Department Care Team (Late st Contact Info) Description 11/14/2024 4:00 PM EDT Office Visit [facility] MED & PEDS [address] [place] [address] Rolanda Thakur MD [address] [place] [address] documented as of this encounter Visit Diagnoses Not on filedocumented in this encounter Care Teams Manager Background Relationship Specialty Start Date End Date Rolanda Thakur MD [address] [place] [address] PCP - General Internal Medicine 09/19/22 documented as of this encounter
--- OUTSIDE RECORDS SUMMARY | 2024-11-09 09:11 | XMS_ITS | Encounter Summary ---
Author Organization [employer] Address [address] [place] [address] 7 [place] [address] Care Team Providers Care Dialysis Technician Name Role Phone Rolanda Thakur MD Primary Care Provider +1- [phone] Reason for Visit * Reason Comments Med Refill Encounter Details Date Type Department Care Team ([facility] Contact Info) Description 01/05/2023 Refill [facility] MED & PEDS [address] [place] [address] Karoline Castañeda MD [address] [place] [address] Social History Tobacco Use Types Packs/Day Years [...] [facility] MED & PEDS [address] [place] [address] Rolanda Thakur MD [address] [place] [address] documented as of this encounter Visit Diagnoses Not on filedocumented in this encounter Care Teams Dialysis Technician Relationship Specialty Start Date End Date Rolanda Thakur MD [address] [place] [address] PCP - General Internal Medicine 09/19/22 documented as of this encounter
--- OUTSIDE RECORDS SUMMARY | 2024-11-09 09:11 | XMS_ITS | Encounter Summary ---
Author Organization [email or web address] Address [address] [place] [address] [place] [address] Care Team Providers Care Telesales Manager Name Role Phone Rolanda Thakur MD Primary Care Provider +1- [phone] Reason for Visit * Reason Onset Date Comments Referral 09/29/2022 Encounter Details Date Type Department Care Team ([facility] st Contact Info) Description 09/29/2022 Telephone [facility] MED & PEDS [address] [place] [address] Rolanda Thakur MD [address] [place] [address] Referral Social History Tobacco Use Types Packs/Day [...] to fax order to Dr Dempsey on [phone] Dempsey's office on [phone]. Will forward message to provider. RN called Roxanne and gave her the phone and fax number to Dr Dempsey's office and also to f/u when EMG order is placed by PCP. * Telephone Encounter - Machelle Adam RN - 10/03/2022 10:09 AM EST Return call placed to Haylie at [facility] neuroscience, spoke with Jumana who states [...] PM EST Tc from Haylie from [facility] med / rehab calling to inform they need more dx clarification for referral that was sent . 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
--- OUTSIDE RECORDS SUMMARY | 2024-11-09 09:11 | XMS_ITS | Encounter Summary ---
Author Organization [employer] Address [address] [facility] 7 [place] [address] Care Team Providers Care Adjunct Psychology Instructor Name Role Phone Rolanda Thakur MD Primary Care Provider +1- [phone] Reason for Visit * Reason Onset Date Comments Nurse Triage 09/24/2024 Encounter Details Date Type Department Care Team (Late st Contact Info) Description 09/24/2024 Telephone [facility] MEDICINE [address] [place] [address] Rolanda Thakur MD [address] [place] [address] Nurse Triage Social History Tobacco Use Types [...] WIC for today as no appts in [facility]. Pt states gets panic attacks if has to wait . Pt advised unfortunately no appts in [facility]> Unable to schedule ahead for WIC. Pt states will seek [facility] clinic on [facility] in [place]. Will send to team as FYI to [...] COVID-19 Test * Telephone Encounter - Harriet Fryeiago - 09/24/2024 8:34 AM EST Symptoms: Cough, Runny Nose, Breathing Trouble (Pt states breath cut a little) Outcome: Schedule an urgent appointment (within 1 hour) or talk to a nurse or provider soon Reason: Caller denied all higher acuity questions The caller accepted this outcome. [phone] documented in this encounter Plan of Treatment Upcoming Encounters Date Type Department Care Team (Late st Contact Info) Description 11/14/2024 4:00 PM EDT Office Visit [facility] MED & PEDS [address] [place] [address] Rolanda Thakur MD [address] [place] [address] documented as of this encounter Visit Diagnoses Not on filedocumented in this encounter Additional Health Concerns Assessment Noted Time PHQ-9 Depression Total Score: 2 05/13/20 24 9:24 AM EDT documented as of this encounter Care Teams Adjunct Psychology Instructor Relationship Specialty Start Date End Date Rolanda Thakur MD [address] [place] [address] PCP - General Internal Medicine 09/19/22 documented as of this encounter
--- OUTSIDE RECORDS SUMMARY | 2024-11-09 09:11 | XMS_ITS | Encounter Summary ---
Author Organization [employer] Address [address] [facility] 7 [place] [address] Care Team Providers Care Weaver Hand Loom Name Role Phone Rolanda Thakur MD Primary Care Provider +1- [phone] Reason for Visit * Reason Onset Date Comments Nurse Triage 04/04/2024 Encounter Details Date Type Department Care Team (Late st Contact Info) Description 04/04/2024 Telephone [facility] MEDICINE [address] [place] [address] Rolanda Thakur MD 505 [place] [address] Nurse Triage Social History Tobacco Use Types [...] pt. She states that she went to [facility] ED for Anxiety panic [...] got treated horribly by the staff at [facility] and she will never [...] care coordinators so that they can get [facility] ED notes from 03/30/24 Ed visit into pt. Chart and any labs, EKG's etc.. into pt. Chart for visit on 04/05/24 at 315pm. Protocol Used: Anxiety and Panic Attack (Adult) Protocol-Based Disposition: Go to ED[facility] Now (or to Office with PCP Approval)- [...] 4:00 PM EDT Office Visit [facility] MED & PEDS [address] [place] [address] Rolanda Thakur MD [address] [place] [address] documented as of this encounter Visit Diagnoses Not on filedocumented in this encounter Care Teams Weaver Hand Loom Relationship Specialty Start Date End Date Rolanda Thakur MD 505 [place] [address] PCP - General Internal Medicine 09/19/22 documented as of this encounter
--- OUTSIDE RECORDS SUMMARY | 2024-11-09 09:11 | XMS_ITS | Encounter Summary ---
Author Organization [employer] Address [address] [facility] 7 [place] [address] Care Team Providers Care Services Advisor Name Role Phone Rolanda Thakur MD Primary Care Provider +1- [phone] Reason for Visit * Reason Onset Date Comments Results 03/29/2024 Encounter Details Date Type Department Care Team ([facility] st Contact Info) Description 03/29/2024 Telephone [facility] MEDICINE 230 [place] [address] Rolanda Thakur MD [address] [place], [place] [phone] Results Social History Tobacco Use Types Packs/Day [...] 4:00 PM EDT Office Visit [facility] MED & PEDS [address] [place] [address] Rolanda Thakur MD [address] [place] [address] documented as of this encounter Visit Diagnoses Not on filedocumented in this encounter Care Teams Services Advisor Relationship Specialty Start Date End Date Rolanda Thakur MD [address] [place] [address] PCP - General Internal Medicine 09/19/22 documented as of this encounter
--- OUTSIDE RECORDS SUMMARY | 2024-11-09 09:11 | XMS_ITS | Encounter Summary ---
Author Organization [employer] Address [address] [place] [address] Care Team Providers Care Personnel Representative Name Role Phone Rolanda Thakur MD Primary Care Provider [phone]- [phone] Reason for Visit * Reason Onset Date Comments Med Refill 04/04/2024 Encounter Details Date Type Department Care Team (Late st Contact Info) Description 04/04/2024 Telephone [facility] MEDICINE [address] [place] [address] Rolanda Thakur MD [address] [place] [address] Med Refill Social History Tobacco Use Types [...] 5 mg tablets To be sent to: [facility] documented in this encounter Plan of Treatment Upcoming Encounters Date Type Department Care Team (Late st Contact Info) Description 11/14/2024 4:00 PM EDT Office Visit [facility] MED & PEDS 505 [place] [address] Rolanda Thakur MD 505 [place] [address] documented as of this encounter Visit Diagnoses Diagnosis Anxiety- Primary Anxiety state, unspecified documented in this encounter Care Teams Personnel Representative Relationship Specialty Start Date End Date Rolanda Thakur MD [address] [place] [address] PCP - General Internal Medicine 09/19/22 documented as of this encounter
--- OUTSIDE RECORDS SUMMARY | 2024-11-09 09:11 | XMS_ITS | Encounter Summary ---
Author Organization [employer] Address [address] [facility] 7 [place] [address] Care Team Providers Care Drawing Tracer Name Role Phone Rolanda Thakur MD Primary Care Provider +1- [phone] Encounter Details Date Type Department Care Team ([facility] Contact Info) Description 10/08/2024 Telephone [facility] MED [facility]EDS 505 [place] [address] Rolanda Thakur MD 505 [place] [address] Social History Tobacco Use Types Packs/Day Years [...] 4:00 PM EDT Office Visit [facility] MED & PEDS 505 [place] [address] Rolanda Thakur MD [address] [place] [address] documented as of this encounter Visit Diagnoses Not on filedocumented in this encounter Additional Health Concerns Assessment Noted Time PHQ-9 Depression Total Score: 2 05/13/20 24 9:24 AM EDT documented as of this encounter Care Teams Drawing Tracer Relationship Specialty Start Date End Date Rolanda Thakur MD 505 [place] [address] PCP - General Internal Medicine 09/19/22 documented as of this encounter
--- OUTSIDE RECORDS SUMMARY | 2024-11-09 09:11 | XMS_ITS | Encounter Summary ---
Author Organization [employer] Address [address] [place] [address] Care Team Providers Care Youth Associate Name Role Phone Rolanda Thakur MD Primary Care Provider Encounter Details Date Type Department Care Team (Late Contact Info) Description 12/07/2023 Telephone [facility] MEDICINE 230 [place], [place] [phone] Rolanda Thakur MD [address] [place] [address] Social History Tobacco Use Types Packs/Day Years [...] Description 11/14/2024 4:00 PM EDT Office Visit [facility] MED & PEDS 505 [place], [place] [phone] Rolanda Thakur MD [address] [place], [place] [phone] documented as of this encounter Visit Diagnoses Not on filedocumented in this encounter Care Teams Youth Associate Relationship Specialty Start Date End Date Rolanda Thakur MD [address] [place] [address] PCP - General Internal Medicine 09/19/22 documented as of this encounter
--- OUTSIDE RECORDS SUMMARY | 2024-11-09 09:11 | XMS_ITS | Encounter Summary ---
Author Organization [employer] Address [address] [place] [address] Care Team Providers Care Leaf Sorter Name Role Phone Rolanda Thakur MD Primary Care Provider +1- [phone] Reason for Referral * Consultation (Routine) - Canceled Specialty Diagnoses / Procedures Referred By Contac t Referred To Contact Endocrinology Diagnoses Type 2 diabetes mellitus without complication, without long-term current use of insulin (CMS/HCC) Rolanda Thakur MD [address] [place] [address] Phone: tel: fax: Referral ID Status Reason Start Date Expiration Date Visits Requested Visits Authorized [id number] Canceled Specialty Services Required 10/08/2024 10/08/2025 1 1 Encounter Details Date Type Department Care Team (Late st Contact Info) Description 10/08/2024 Orders Only [facility] MED & PEDS [address] [place] [address] Rolanda Thakur MD [address] [place], [place] [phone] Type 2 diabetes mellitus without complication, without [...] Upcoming Encounters Date Type Department Care Team ([facility] Contact Info) Description 11/14/2024 4:00 PM EDT Office Visit [facility] MED & PEDS [address] [place] [address] Rolanda Thakur MD [address] [place] [address] Scheduled Orders Name Type Priority Associated Diagnoses Orde r Schedule Hemoglobin A1c Lab Routine Type 2 diabetes mellitus without complication, without long-term current use of insulin ([facility]) Expected: 10/08/2024 (Approximate), Expires: 10/08/2025 Scheduled Referrals Name Type Priority Associated Diagnoses Order Schedule Referral to Endocrinology Outpatient Referral Routine Type 2 diabetes mellitus without complication, without long-term current use of insulin ([facility]) Expected: 10/08/2024 (Approximate), Expires: 10/08/2025 documented as of this encounter Visit Diagnoses Diagnosis Type 2 diabetes mellitus without complication, without long-term current use of insulin ([facility])- Primary documented in this encounter Additional Health Concerns Assessment Noted Time PHQ-9 Depression Total Score: 2 05/13/20 24 9:24 AM EDT documented as of this encounter Care Teams Leaf Sorter Relationship Specialty Start Date End Date Rolanda Thakur MD [address] [place] [address] PCP - General Internal Medicine 09/19/22 documented as of this encounter
--- OUTSIDE RECORDS SUMMARY | 2024-11-09 09:11 | XMS_ITS | Encounter Summary ---
Author Organization [employer] Address [address] [place] [address] Care Team Providers Care Administrative Assistant Coordinator Name Role Phone Rolanda Thakur MD Primary Care Provider +1- [phone] Reason for Visit * Reason Onset Date Comments Call Back Request 11/17/2023 Encounter Details Date Type Department Care Team (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 Please contact pt. documented in this encounter Plan of Treatment Upcoming Encounters Date Type Department Care Team ([facility] st Contact Info) Description 11/14/2024 4:00 PM EDT Office Visit [facility] MED & PEDS [address] [place] [address] Rolanda Thakur MD 505 [place] [address] documented as of this encounter Visit Diagnoses Not on filedocumented in this encounter Care Teams Administrative Assistant Coordinator Relationship Specialty Start Date End Date Rolanda Thakur MD [address] [place] [address] PCP - General Internal Medicine 09/19/22 documented as of this encounter
--- OUTSIDE RECORDS SUMMARY | 2024-11-09 09:11 | XMS_ITS | Encounter Summary ---
Author Organization [employer] Address 75 [facility] 7 [place] [address] Care Team Providers Care Extras Casting Director Name Role Phone Rolanda Thakur MD Primary Care Provider Reason for Visit * Reason Onset Date Comments FYI 10/31/2024 Call Back Request 10/31/2024 Encounter Details Date Type Department Care Team (Late st Contact Info) Description 10/31/2024 Telephone [facility] MEDICINE [address] [place] [address] Rolanda Thakur MD [address] [place] [address] FYI ; Call Back Request Social History [...] encounter Miscellaneous Notes * Telephone Encounter - Huong Heredia RN - 11/01/2024 1:18 PM EDT Appointment scheduled for 11/05/24 1:30. Appointment information sent via My chart messaging as patient has requested not to contact her during the day bc she is at work. * Telephone Encounter - Raz Manuel - [...] forgot medication name. Please contact pt at [phone]. documented in this encounter Plan of Treatment Upcoming Encounters Date Type Department Care Team (Late st Contact Info) Description 11/14/2024 4:00 PM EDT Office Visit [facility] MED & PEDS [address] [place] [address] Rolanda Thakur MD [address] [place] [address] documented as of this encounter Visit Diagnoses Not on filedocumented in this encounter Additional Health Concerns Assessment Noted Time PHQ-9 Depression Total Score: 2 05/13/20 24 9:24 AM EDT documented as of this encounter Care Teams Extras Casting Director Relationship Specialty Start Date End Date Rolanda Thakur MD [address] [place] [address] PCP - General Internal Medicine 09/19/22 documented as of this encounter
--- OUTSIDE RECORDS SUMMARY | 2024-11-09 09:11 | XMS_ITS | Encounter Summary ---
Author Organization [employer] Address 75 [facility] 7 [place] [address] Care Team Providers Care Technology Program Manager Name Role Phone Rolanda Thakur MD Primary Care Provider +1- [phone] Encounter Details Date Type Department Care Team ([facility] st Contact Info) Description 10/23/2024 Telephone [facility] MED & PEDS [address] [place], [place] [phone] Apple Britton, PharmD [address] [place] [address] Social History Tobacco Use Types Packs/Day Years [...] Description 11/14/2024 4:00 PM EDT Office Visit [facility] MED & PEDS 505 [place] [address] Rolanda Thakur MD 505 [place] [address] documented as of this encounter Visit Diagnoses Not on filedocumented in this encounter Additional Health Concerns Assessment Noted Time PHQ-9 Depression Total Score: 2 05/13/20 24 9:24 AM EDT documented as of this encounter Care Teams Technology Program Manager Relationship Specialty Start Date End Date Rolanda Thakur MD [address] [place] [address] PCP - General Internal Medicine 09/19/22 documented as of this encounter
--- OUTSIDE RECORDS SUMMARY | 2024-11-09 09:11 | XMS_ITS | Encounter Summary ---
Author Organization [employer] Address 75 [facility] 7 [place] [address] Care Team Providers Care Shag Truck Driver Name Role Phone Rolanda Thakur MD Primary Care Provider +1- [phone] Reason for Visit * Reason Onset Date Comments FYI 10/11/2024 Encounter Details Date Type Department Care Team (Late st Contact Info) Description 10/11/2024 Telephone [facility] MEDICINE [address] [place] [address] Rolanda Thakur MD 505 [place] [address] FYI Social History Tobacco Use Types Packs/Day [...] Upcoming Encounters Date Type Department Care Team ([facility] st Contact Info) Description 11/14/2024 4:00 PM EDT Office Visit [facility] MED & PEDS [address] [place] [address] Rolanda Thakur MD [address] [place] [address] documented as of this encounter Visit Diagnoses Not on filedocumented in this encounter Additional Health Concerns Assessment Noted Time PHQ-9 Depression Total Score: 2 05/13/20 24 9:24 AM EDT documented as of this encounter Care Teams Shag Truck Driver Relationship Specialty Start Date End Date Rolanda Thakur MD 505 [place] [address] PCP - General Internal Medicine 09/19/22 documented as of this encounter
--- OUTSIDE RECORDS SUMMARY | 2024-11-09 09:11 | XMS_ITS | Encounter Summary ---
Author Organization [employer] Address [address] [place] [address] Care Team Providers Care Superintendent Police Name Role Phone Rolanda Thakur MD Primary Care Provider Encounter Details Date Type Department Care Team (Late Contact Info) Description 03/28/2024 Orders Only [facility] MED & PEDS [address] [place] [address] Karen Alcantar MD [address] [place] [address] Social History Tobacco Use Types Packs/Day Years [...] Description 11/14/2024 4:00 PM EDT Office Visit [facility] MED & PEDS [address] [place] [address] Rolanda Thakur MD [address] [place], [place] [phone] documented as of this encounter Visit Diagnoses Not on filedocumented in this encounter Care Teams Superintendent Police Relationship Specialty Start Date End Date Rolanda Thakur MD [address] [place] [address] PCP - General Internal Medicine 09/19/22 documented as of this encounter
--- OUTSIDE RECORDS SUMMARY | 2024-11-09 09:11 | XMS_ITS | Encounter Summary ---
Author Organization [employer] Address [address] [place] [address] Care Team Providers Care Hospital Cna Name Role Phone Rolanda Thakur MD Primary Care Provider +1- [phone] Reason for Visit * Reason Onset Date Comments Created In Error 04/29/2024 Encounter Details Date Type Department Care Team ([facility] Contact Info) Description 04/29/2024 Telephone [facility] MEDICINE [address] [place] [address] Rolanda Thakur MD [address] [place] [address] Created In Error Social History Tobacco Use [...] Upcoming Encounters Date Type Department Care Team ([facility] Contact Info) Description 11/14/2024 4:00 PM EDT Office Visit [facility] MED & PEDS [address] [place], [place] [phone] Rolanda Thakur MD [address] [place], [place] [phone] documented as of this encounter Visit Diagnoses Not on filedocumented in this encounter Care Teams Hospital Cna Relationship Specialty Start Date End Date Rolanda Thakur MD [address] [place] [address] PCP - General Internal Medicine 09/19/22 documented as of this encounter
--- OUTSIDE RECORDS SUMMARY | 2024-11-09 09:11 | XMS_ITS | Encounter Summary ---
Author Organization [employer] Address 75 [facility] 7t [place] [address] Care Team Providers Care Real Estate Portfolio Manager Name Role Phone Rolanda Thakur MD Primary Care Provider +[phone] Encounter Details Date Type Department Care Team [...] Description 11/14/2024 4:00 PM EDT Office Visit [facility] MED & PEDS 505 [place] [address] Rolanda Thakur MD 505 [place] [address] documented as of this encounter Visit Diagnoses Not on filedocumented in this encounter Additional Health Concerns Assessment Noted Time PHQ-9 Depression Total Score: 2 05/13/20 24 9:24 AM EDT documented as of this encounter Care Teams Real Estate Portfolio Manager Relationship Specialty Start Date End Date Rolanda Thakur MD [address] [place] [address] PCP - General Internal Medicine 09/19/22 documented as of this encounter
--- OUTSIDE RECORDS SUMMARY | 2024-11-09 09:11 | XMS_ITS | Encounter Summary ---
Author Organization [employer] Address [address] [place] [address] Care Team Providers Care Canvas Shrinker Name Role Phone Rolanda Thakur MD Primary Care Provider +1- [phone] Reason for Visit * Reason Onset Date Comments Appointment Request 11/06/2024 Encounter Details Date Type Department Care Team ([facility] st Contact Info) Description 11/06/2024 Telephone [facility] MEDICINE [address] [place] [address] Rolanda Thakur MD 505 [place] [address] Appointment Request Social History Tobacco Use Types Packs/Day [...] encounter Miscellaneous Notes * Telephone Encounter - Ilsa Boyd RN - 11/06/2024 4:50 PM EDT TC to pt. Pt agreeable to rescheduling follow up. Pt verbalized concerns that blood glucose is not stable, but pt stated after speaking to triage over past weekend, that pt was not eating carbohydrates and was having fluctuating blood glucose reading. Pt since has been trying to eat same amount of carbohydrates this week and feels better, but is still concerned that medications may need to be adjusted so would still like a follow up. Pt follow up scheduled for 11/14/24 at 4:00 PM. * Telephone Encounter - Harriet Blood - 11/06/2024 8:03 AM EDT Tc from pt requesting r/s 11/05 [facility] appt. Pt requesting call back after 3:30pm. Appt notes: medication changes. documented in this encounter Plan of Treatment Upcoming Encounters Date Type Department Care Team (Late st Contact Info) Description 11/14/2024 4:00 PM EDT Office Visit [facility] MED & PEDS 505 [place] [address] Rolanda Thakur MD [address] [place] [address] documented as of this encounter Visit Diagnoses Not on filedocumented in this encounter Additional Health Concerns Assessment Noted Time PHQ-9 Depression Total Score: 2 05/13/20 24 9:24 AM EDT documented as of this encounter Care Teams Canvas Shrinker Relationship Specialty Start Date End Date Rolanda Thakur MD 505 [place] [address] PCP - General Internal Medicine 09/19/22 documented as of this encounter
--- OUTSIDE RECORDS SUMMARY | 2024-11-09 09:11 | XMS_ITS | Encounter Summary ---
Author Organization [employer] Address [address] [place] [address] Care Team Providers Care Project Administrative Assistant Name Role Phone Rolanda Thakur MD Primary Care Provider [phone] Encounter Details Date Type Department Care Team (Late Contact Info) Description 05/16/2023 Orders Only [facility] [address] [place] [address] Rolanda Thakur MD 505 [place] [address] Bilateral leg paresthesia (Primary Dx); Anxiety; Diabetic [...] 4:00 PM EDT Office Visit [facility] [address] [place], [place] [phone] Rolanda Thakur MD 505 [place], [place] [phone] Scheduled Orders Name Type Priority Associated Diagnoses [...] * Vitamin B6 (10/10/2023 12:50 PM EST) [facility] Vitamin B6 16.0 2.1 - 21.7 ng/mL [facility] Comment:Vitamin supplementat ion within 24 hours prior toblood draw may affect the accuracy of the results.This test was developed and its analytical performancecharacteristics have been determined by [employer] [place], [place]. It hasnot been cleared or approved by the U.S. Food and DrugAdministration. This assay has been validated pursuantto the CLIA regulations and is used for clinicalpurposes.THIS TEST WAS PERFORMED AT:[employer] [place] [address]VYUXGLBTHEO PEDERSEN MD,PHD Blood Venous blood specimen / Unknown 10/10/2023 12:50 PM EST 10/10/2023 2:41 PM EST Rolanda Thakur MD LAB BLOOD ORDERABLES Final Result Performing Organization Address [facility] de Phone Number [facility] [address] [place] [phone] * (ABNORMAL) Vitamin B12 (10/10/2023 12:50 PM EST) Vitamin B12 1,388(H) 200 - 900 pg/mL [facility] Comment:NORMAL 200-900 PG/ML INDETERMINATE 160-199 PG/ML DEFICIENT < 160 PG/ML Blood Venous blood specimen / Unknown 10/10/2023 12:50 PM EST 10/10/2023 2:41 PM EST Rolanda Thakur MD LAB BLOOD ORDERABLES Final Result Performing Organization Address [facility] de Phone Number [facility] [address] [place] [phone] * TSH W/Reflex to FT4 (10/10/2023 12:50 PM EST) Pathologist [facility] TSH reflex Free T4 0.35 0.32 - 4.0 uIU/mL [facility] Blood 10/10/2023 12:5 0 PM EST 10/10/2023 2:41 PM EST Rolanda Thakur MD LAB BLOOD ORDERABLES Final Result Performing Organization Address [facility] Co de Phone Number [facility] [address] [place] [phone] * (ABNORMAL) CBC auto differential (10/10/2023 12:50 PM EST) Pathologist [facility] White Blood Count 8.0 4.8 - 10.8 X10*3/uL [facility] Red Blood Count 4.19(L) 4.20 - 5.50 X10*6/uL [facility] Hemoglobin 12.3 12.0 - 16.0 g/dl [facility] Hematocrit 36.6(L) 37.0 - 47.0 % [facility] Mean Corpuscular Volume 87.4 80.0 - 98.0 fL [facility] Mean Corpuscular Hemoglobin 29.4 27.0 - 33.0 pg [facility] Mean Corpuscular HGB Conc 33.6 31.0 - 35.0 g/dl [facility] Red Cell Distribution Width 12.8 11.0 - 16.0 % [facility] Platelet Count 252 160 - 400 X10*3/uL [facility] Mean Platelet Volume 9.5 9.4 - 12.3 fL [facility] Neutrophils Percent Auto 55.5 45 - 73 % [facility] Imm Gran Pct Auto 0.4 0.0 - 0.4 % [facility] Lymphocytes Percent Auto 31.3 20 - 40 % [facility] Monocytes Percent Auto 6.0 2 - 11 % [facility] Eosinophils Percent Auto 5.9(H) 0 - 4 % [facility] Basophils Percent Auto 0.9 0 - 2 % [facility] NRBC Pct Auto 0.0 0.0 - 0.2 /100WBC [facility] Neutrophils Absolute Auto 4.5 2.0 - 8.3 x10*3/uL [facility] Imm Gran Abs Auto 0.03 0.00 - 0.03 X10*3/uL [facility] Lymphocytes Absolute Auto 2.5 1.2 - 4.9 X10*3/uL [facility] Monocytes Absolute Auto 0.5 0.1 - 1.2 X10*3/uL [facility] Eosinophils Absolute Auto 0.5(H) 0.0 - 0.4 X10*3/uL [facility] Basophils Absolute Auto 0.1 0.0 - 0.2 X10*3/uL [facility] NRBC Abs Auto 0.000 0.0 - 0.012 X10*3/uL [facility] Blood Venous blood specimen / Unknown 10/10/2023 12:50 PM EST 10/10/2023 2:41 PM EST us Thevenin Beauzile MD LAB BLOOD ORDERABLES Final Result [facility] [address] [place] [phone] documented in this encounter Visit Diagnoses Diagnosis Bilateral leg paresthesia- Primary Disturbance of skin sensation Anxiety Anxiety state, unspecified Diabetic polyneuropathy associated with type 2 diabetes mellitus (CMS/HCC) documented in this encounter Care Teams Project Administrative Assistant Relationship Specialty Start Date End Date Rolanda Thakur MD [address] [place] [phone] PCP - General Internal Medicine 09/19/22 documented as of this encounter
--- OUTSIDE RECORDS SUMMARY | 2024-11-09 09:12 | XMS_ITS | Encounter Summary ---
Author Organization [employer] Address [address] [place] [address] Care Team Providers Care Teacher Name Role Phone Rolanda Thakur MD Primary Care Provider [phone]- [phone] Reason for Visit * Reason Onset Date Comments Medication Question 10/23/2023 Encounter Details Date Type Department Care Team (Late st Contact Info) Description 10/23/2023 Telephone [facility] MEDICINE [address] [place] [address] Rolanda Thakur MD [address] [place], [place] [phone] Medication Question Social History Tobacco Use Types [...] [facility] [address] [place] [address] Rolanda Thakur MD [address] [place] [address] documented as of this encounter Visit Diagnoses Not on filedocumented in this encounter Care Teams Teacher Relationship Specialty Start Date End Date Rolanda Thakur MD 505 [place] [address] PCP - General Internal Medicine 09/19/22 documented as of this encounter
--- OUTSIDE RECORDS SUMMARY | 2024-11-09 09:12 | XMS_ITS | Encounter Summary ---
Author Organization [employer] Address [address] [place] [address] Care Team Providers Care Creative Services Director Name Role Phone Rolanda Thakur MD Primary Care Provider [phone]- [phone] Reason for Visit * Reason Onset Date Comments Nurse Triage 01/03/2024 Encounter Details Date Type Department Care Team (Late st Contact Info) Description 01/03/2024 Telephone [facility] MEDICINE [address] [place] [address] Rolanda Thakur MD 505 [place] [address] Nurse Triage Social History Tobacco Use Types [...] [facility] MED [facility] PEDS [address] [place] [address] Rolanda Thakur MD [address] [place] [address] documented as of this encounter Visit Diagnoses Not on filedocumented in this encounter Care Teams Creative Services Director Relationship Specialty Start Date End Date Rolanda Thakur MD [address] [place] [address] PCP - General Internal Medicine 09/19/22 documented as of this encounter
--- OUTSIDE RECORDS SUMMARY | 2024-11-09 09:12 | XMS_ITS | Clinical Summary ---
Author Organization [facility] Facility Address [address] [place] [address] Care Team Providers Care Vehicle Assembly Inspector Name Role Phone Maren Hough MD Primary Care Provider [phone] Social History Tobacco Use Types Packs/Day Years [...] patient's age to complete this topic Insurance [facility] MEDICARE [facility] MEDICARE Care Teams Vehicle Assembly Inspector Relationship Specialty Start Date End Date Maren Hough MD [address] [place] [phone] PCP - General Family Medicine 06/20/22
--- OUTSIDE RECORDS SUMMARY | 2024-11-09 09:12 | XMS_ITS | Encounter Summary ---
Author Organization [employer] Address [address] [place] [address] Care Team Providers Care Clinical Support Nurse Name Role Phone Rolanda Thakur MD Primary Care Provider [phone] Encounter Details Date Type Department Care Team (Late Contact Info) Description 08/18/2023 Orders Only [facility] [address] [place] [address] Rolanda Thakur MD 505 [place] [address] Social History Tobacco Use Types Packs/Day Years [...] 11/14/2024 4:00 PM EDT Office Visit [facility] [address] [place] [address] Rolanda Thakur MD 505 [place] [address] documented as of this encounter Visit Diagnoses Not on filedocumented in this encounter Care Teams Clinical Support Nurse Relationship Specialty Start Date End Date Rolanda Thakur MD [address] [place] [address] PCP - General Internal Medicine 09/19/22 documented as of this encounter
--- OUTSIDE RECORDS SUMMARY | 2024-11-09 09:12 | XMS_ITS | Encounter Summary ---
Author Organization [employer] Address 75 [facility] 7 [place] [address] Care Team Providers Care Director Of Hotel Name Role Phone Rolanda Thakur MD Primary Care Provider [phone]- [phone] Reason for Visit * Reason Onset Date Comments Nurse Triage 08/09/2024 Encounter Details Date Type Department Care Team (Late st Contact Info) Description 08/09/2024 Telephone [facility] MEDICINE [address] [place] [address] Rolanda Thakur MD [address] [place] [address] Nurse Triage Social History Tobacco Use Types [...] precautions and reasons to call back. Reviewed [facility] operating hours and that wait times vary. Protocol Used: Neck Pain or Stiffness (Adult) Protocol-Based Disposition: See in Office or Video Visit Today or Tomorrow Future Appointments Date Time Provider Department Center 08/10/2024 9:40 AM [facility] 2 WALK-IN [facility] Insurance verified as active per Real Time Eligibility in Epic. Positive Triage Question: * Tenderness in front [...] Upcoming Encounters Date Type Department Care Team ([facility] st Contact Info) Description 11/14/2024 4:00 PM EDT Office Visit [facility] MED & PEDS 505 [place] [address] Rolanda Thakur MD [address] [place] [address] documented as of this encounter Visit Diagnoses Not on filedocumented in this encounter Additional Health Concerns Assessment Noted Time PHQ-9 Depression Total Score: 2 05/13/20 24 9:24 AM EDT documented as of this encounter Care Teams Director Of Hotel Relationship Specialty Start Date End Date Rolanda Thakur MD [address] [place] [address] PCP - General Internal Medicine 09/19/22 documented as of this encounter
--- OUTSIDE RECORDS SUMMARY | 2024-11-09 09:12 | XMS_ITS | Encounter Summary ---
Author Organization [employer] Address 75 [facility] 7 [place] [address] Care Team Providers Care Clerical Investigator Name Role Phone Rolanda Thakur MD Primary Care Provider [phone] Reason for Visit * Reason Onset Date Comments Med Refill 08/19/2024 Encounter Details Date Type Department Care Team (Late st Contact Info) Description 08/19/2024 Refill [facility] [address] [place] [address] Wyatt Huizar MD 230 [place] [address] Neck pain on left side Social History [...] PM EDT Office Visit [facility] MED & PEDS [address] [place] [address] Rolanda Thakur MD [address] [place] [address] documented as of this encounter Visit Diagnoses Diagnosis Neck pain on left side documented in this encounter Additional Health Concerns Assessment Noted Time PHQ-9 Depression Total Score: 2 05/13/20 24 9:24 AM EDT documented as of this encounter Care Teams Clerical Investigator Relationship Specialty Start Date End Date Rolanda Thakur MD [address] [place] [address] PCP - General Internal Medicine 09/19/22 documented as of this encounter
--- OUTSIDE RECORDS SUMMARY | 2024-11-09 09:12 | XMS_ITS | Encounter Summary ---
Author Organization [employer] Address [address] [place] [address] Care Team Providers Care Division Toll Wire Chief Name Role Phone Rolanda Thakur MD Primary Care Provider Encounter Details Date Type Department Care Team (Late Contact Info) Description 10/27/2023 Orders Only [facility] MED & PEDS [address] [place] [address] Bhavesh Yang, MINOO [address] [place] [address] Social History Tobacco Use Types Packs/Day Years [...] 11/14/2024 4:00 PM EDT Office Visit [facility] MED & PEDS [address] [place] [address] Rolanda Thakur MD 505 [place] [address] documented as of this encounter Visit Diagnoses Not on filedocumented in this encounter Care Teams Division Toll Wire Chief Relationship Specialty Start Date End Date Rolanda Thakur MD [address] [place] [address] PCP - General Internal Medicine 09/19/22 documented as of this encounter
--- OUTSIDE RECORDS SUMMARY | 2024-11-09 09:12 | XMS_ITS | Encounter Summary ---
Author Organization [employer] Address [address] [place] [address] Care Team Providers Care Meter Tester Name Role Phone Rolanda Thakur MD Primary Care Provider [phone]- [phone] Reason for Visit * Reason Comments Med Refill Encounter Details Date Type Department Care Team (Late st Contact Info) Description 08/27/2024 Refill [facility] MEDICINE [address] [place] [address] Rolanda Thakur MD [address] [place], [place] [phone] Type 2 diabetes mellitus without complication, without long-term current use of insulin ([facility]) Social History Tobacco Use Types Packs/Day Years [...] 4:00 PM EDT Office Visit [facility] [address] [place] [address] Rolanda Thakur MD [address] [place] [address] documented as of this encounter Visit Diagnoses Diagnosis Type 2 diabetes mellitus without complication, without long-term current use of insulin ([facility]) documented in this encounter Additional Health Concerns Assessment Noted Time PHQ-9 Depression Total Score: 2 05/13/20 24 9:24 AM EDT documented as of this encounter Care Teams Meter Tester Relationship Specialty Start Date End Date Rolanda Thakur MD [address] [place] [address] PCP - General Internal Medicine 09/19/22 documented as of this encounter
--- OUTSIDE RECORDS SUMMARY | 2024-11-09 09:12 | XMS_ITS | Encounter Summary ---
Author Organization [employer] Address [address] [place] [address] Care Team Providers Care Environmental Restoration Planner Name Role Phone Rolanda Thakur MD Primary Care Provider Encounter Details Date Type Department Care Team (Late Contact Info) Description 10/27/2023 Telephone [facility] MEDICINE [address] [place], [place] [phone] Rolanda Thakur MD 505 [place] [address] Social History Tobacco Use Types Packs/Day Years [...] 4:00 PM EDT Office Visit [facility] [address] [place], [place] [phone] Rolanda Thakur MD [address] [place], [place] [phone] documented as of this encounter Visit Diagnoses Not on filedocumented in this encounter Care Teams Environmental Restoration Planner Relationship Specialty Start Date End Date Rolanad Thakur MD [address] [place] [address] PCP - General Internal Medicine 09/19/22 documented as of this encounter
--- OUTSIDE RECORDS SUMMARY | 2024-11-09 09:12 | XMS_ITS | Encounter Summary ---
Author Organization [employer] Address [address] [place] [address] Care Team Providers Care Bridal Stylist Sales Consultant Name Role Phone Rolanda Thakur MD Primary Care Provider [phone]- [phone] Reason for Referral * Consultation (Routine) - Closed Specialty Diagnoses / Procedures Referred By Contac t Referred To Contact Podiatry Diagnoses Type 2 diabetes mellitus without complication, without long-term current use of insulin (CMS/HCC) Rolanda Thakur MD [address] [place] [address] Phone: tel: fax: Carl Avitia DPM Phone: tel: fax: Referral ID Status Reason Start Date Expiration Date V isits Requested Visits Authorized [id number] Closed Specialty Services Required 11/01/2023 10/31/2024 1 1 Encounter Details Date Type Department Care Team (Late st Contact Info) Description 10/23/2023 Orders Only [facility] MED & PEDS [address] [place] [address] Rolanda Thakur MD [address] [place] [address] Acquired hypothyroidism (Primary Dx); Type 2 diabetes [...] Description 11/14/2024 4:00 PM EDT Office Visit [facility]S [address] [place] [address] Rolanda Thakur MD [address] [place] [address] Scheduled Referrals Name Type Priority Associated Diagnoses [...] (CMS/HCC) documented in this encounter Care Teams Bridal Stylist Sales Consultant Relationship Specialty Start Date End Date Rolanda Thakur MD [address] [place] [address] PCP - General Internal Medicine 09/19/22 documented as of this encounter
--- OUTSIDE RECORDS SUMMARY | 2024-11-09 09:12 | XMS_ITS | Encounter Summary ---
Author Organization [employer] Address [address] [place] [address] Care Team Providers Care Operations Management Trainee Name Role Phone Rolanda Thakur MD Primary Care Provider Encounter Details Date Type Department Care Team (Latest Contact Info) Description 08/17/2021 Abstract [facility] CONVERSIONS Dental, Provider, DDS Social History [...] 4:00 PM EDT Office Visit [facility] MED & PEDS [address] [place] [address] Rolanda Thakur MD 505 [place] [address] documented as of this encounter Visit Diagnoses Not on filedocumented in this encounter Care Teams Operations Management Trainee Relationship Specialty Start Date End Date Rolanda Thakur MD [address] [place] [address] PCP - General Internal Medicine 09/19/22 documented as of this encounter
--- OUTSIDE RECORDS SUMMARY | 2024-11-09 09:12 | XMS_ITS | Encounter Summary ---
Author Organization [employer] Address [address] [place] [address] Care Team Providers Care Scenario Writer Name Role Phone Rolanda Thakur MD Primary Care Provider [phone]- [phone] Reason for Visit * Reason Onset Date Comments Med Refill 10/27/2023 Encounter Details Date Type Department Care Team (Late st Contact Info) Description 10/27/2023 Telephone [facility] MEDICINE [address] [place] [address] Rolanda Thakur MD [address] [place] [address] Med Refill Social History Tobacco Use Types [...] on medication 125 Please contact pt @ [phone] No meds. * Telephone Encounter - Haylie Cantor RN - 10/27/2023 3:44 PM EST Patient reporting alternating days of synthroid 125 mcg and synthroid 137 mcg. Requesting new script for synthroid 125 mcg. Please review and advise, thanks. Tc from pt requesting levothyroxine (Synthroid) 125 MCG tablet, adjusto writer operator do not see med in chart but pt stated has been taking this medication for 10 years, pt switch 137 and 125 every day, adjusto writer operator attempted to contact pharmacy for clarifications but [facility] [address] open at 9:00AM. * Telephone Encounter - Jenny Neff - 10/27/2023 8:31 AM EST Tc from pt requesting levothyroxine (Synthroid) 125 MCG tablet, adjusto writer operator do not see med in chart but pt stated has been taking this medication for 10 years, pt switch 137 and 125 every day, adjusto writer operator attempted to contact pharmacy for clarifications [facility] open at 9:00AM. documented in this encounter Plan of Treatment Upcoming Encounters Date Type Department Care Team (Late st Contact Info) Description 11/14/2024 4:00 PM EDT Office Visit [facility] MED & PEDS [address] [place] [address] Rolanda Thakur MD [address] [place] [address] documented as of this encounter Visit Diagnoses Not on filedocumented in this encounter Care Teams Scenario Writer Relationship Specialty Start Date End Date Rolanda Thakur MD [address] [place] [address] PCP - General Internal Medicine 09/19/22 documented as of this encounter
--- OUTSIDE RECORDS SUMMARY | 2024-11-09 09:12 | XMS_ITS | Encounter Summary ---
Author Organization [employer] Address [address] [place] [address] Care Team Providers Care Quality Control Technician Name Role Phone Rolanda Thakur MD Primary Care Provider [phone]- [phone] Reason for Referral * Consultation (Routine) - Authorized Specialty Diagnoses / Procedures Referred By Contac t Referred To Contact Endocrinology Diagnoses Type 2 diabetes mellitus without complication, without long-term current use of insulin (CMS/HCC) Rolanda Thakur MD [address] [place] [address] Phone: tel: [facility]: [facility] [address] [place] [phone] Phone: tel: fax: Referral ID Status Reason Start Date Expiration Date Visits Requested Visits Authorized [id number] Authorized Specialty Services Required 08/26/2024 08/26/2025 1 1 Encounter Details Date Type Department Care Team (Late st Contact Info) Description 08/26/2024 Orders Only [facility] CH[facility] MED & PEDS [address] [place] [phone] Rolanda Thakur MD [address] [place] [address] Type 2 diabetes mellitus without complication, without [...] Encounters Date Type Department Care Team ([facility] Contact Info) Description 11/14/2024 4:00 PM EDT Office Visit [facility] MED & PEDS [address] [place] [address] Rolanda Thakur MD 505 [place], [place] [phone] Scheduled Referrals Name Type Priority Associated Diagnoses Order Schedule Referral to Endocrinology Outpatient Referral Routine Type 2 diabetes mellitus without complication, without long-term current use of insulin ([facility]) Expected: 08/26/2024 (Approximate), Expires: 08/26/2025 documented as of this encounter Visit Diagnoses Diagnosis Type 2 diabetes mellitus without complication, without long-term current use of insulin (CMS/[facility])- Primary documented in this encounter Additional Health Concerns Assessment Noted Time PHQ-9 Depression Total Score: 2 05/13/20 24 9:24 AM EDT documented as of this encounter Care Teams Quality Control Technician Relationship Specialty Start Date End Date Rolanda Thakur MD [address] [place] [address] PCP - General Internal Medicine 09/19/22 documented as of this encounter
--- OUTSIDE RECORDS SUMMARY | 2024-11-09 09:12 | XMS_ITS | Encounter Summary ---
Author Organization [employer] Address [address] [place] [address] [place] [address] Care Team Providers Care Banquet Lead Name Role Phone Rolanda Thakur MD Primary Care Provider [phone]- [phone] Reason for Visit * Reason Onset Date Comments Referral 11/16/2023 Encounter Details Date Type Department Care Team ([facility] st Contact Info) Description 11/16/2023 Telephone [facility] MED & PEDS [address] [place] [address] Rolanda Thakur MD [address] [place] [address] Referral Social History Tobacco Use Types Packs/Day [...] MyChart encounter. Any questions, contact pt at [phone] documented in this encounter Plan of Treatment Upcoming Encounters Date Type Department Care Team (Late st Contact Info) Description 11/14/2024 4:00 PM EDT Office Visit [facility] MED & PEDS [address] [place] [address] Rolanda Thakur MD [address] [place] [address] documented as of this encounter Visit Diagnoses Not on filedocumented in this encounter Care Teams Banquet Lead Relationship Specialty Start Date End Date Rolanda Thakur MD [address] [place] [address] PCP - General Internal Medicine 09/19/22 documented as of this encounter
== END 2024-11-09 10:20 | disposition home or self-care (01) ==
PROVIDERS: PCP Internal Medicine; Visit Provider Family Medicine
DX: J40 Bronchitis, not specified as acute or chronic (principal); B34.9 Viral infection, unspecified; I10 Essential (primary) hypertension

== ENCOUNTER 2024-11-09 09:37 | Outpatient (REF) | payer MEDICARE, SELFPAY ==
--- OUTSIDE RECORDS SUMMARY | 2024-11-09 09:40 | XMS_ITS | Encounter Summary ---
Author Organization [employer] Address [address] [place] [address] Care Team Providers Care Guide Delegate Name Role Phone Rolanda Thakur MD Primary Care Provider Reason for Referral * Consultation (Routine) - Closed Specialty Diagnoses / Procedures Referred By Contac t Referred To Contact Behavioral Health Diagnoses Anxiety Rolanda Thakur MD [address] [place] [address] Phone: tel: fax: Referral ID Status Reason Start Date Expiration Date V isits Requested Visits Authorized [id number] Closed Specialty Services Required 05/02/2024 05/02/2025 1 1 Encounter Details Date Type Department Care Team ([facility] Contact Info) Description 05/02/2024 Orders Only [facility] CHC MED & PEDS [address] [place] [address] Rolanda Thakur MD 505 [place] [address] Anxiety (Primary Dx) Social History Tobacco Use [...] EDT Office Visit [facility] MED & PEDS 505 [place] [address] Rolanda Thakur MD 505 [place] [address] Scheduled Referrals Name Type Priority Associated Diagnoses Order Schedule Referral to Behavioral Health Outpatient Referral Routine Anxiety Expected: 05/02/2024 (Approximate), Expires: 05/02/2025 documented as of this encounter Visit Diagnoses Diagnosis Anxiety- Primary Anxiety state, unspecified documented in this encounter Care Teams Guide Delegate Relationship Specialty Start Date End Date Rolanda Thakur MD 505 [place] [address] PCP - General Internal Medicine 09/19/22 documented as of this encounter
--- OUTSIDE RECORDS SUMMARY | 2024-11-09 09:40 | XMS_ITS | Encounter Summary ---
Author Organization [employer] Address [address] [place] [address] [place] [address] Care Team Providers Care Endodontist Name Role Phone Rolanda Thakur MD Primary Care Provider Encounter Details Date Type Department Care Team (Late Contact Info) Description 05/22/2024 Orders Only [facility] CHC MED & PEDS [address] [place] [address] Rolanda Thakur MD [address] [place] [address] Social History Tobacco Use Types Packs/Day Years [...] Visit [facility]S [address] [place] [address] Rolanda Thakur MD [address] [place] [address] documented as of this encounter Visit Diagnoses Not on filedocumented in this encounter Additional Health Concerns Assessment Noted Time PHQ-9 Depression Total Score: 2 05/13/20 24 9:24 AM EDT documented as of this encounter Care Teams Endodontist Relationship Specialty Start Date End Date Rolanda Thakur MD [address] [place] [address] PCP - General Internal Medicine 09/19/22 documented as of this encounter
--- OUTSIDE RECORDS SUMMARY | 2024-11-09 09:40 | XMS_ITS | Encounter Summary ---
Author Organization [employer] Address [address] [place] [address] 7 [place] [address] Care Team Providers Care Sampling Theory Teacher Name Role Phone Rolanda Thakur MD Primary Care Provider Reason for Visit * Reason Comments Med Refill Encounter Details Date Type Department Care Team ([facility] Contact Info) Description 12/28/2022 Refill [facility] CHC MED & PEDS [address] [place] [address] Maren Hough MD 505 [place] [address] Type 2 diabetes mellitus without complication, without long-term current use of insulin ([facility]); Anxiety Social History Tobacco Use Types Packs/Day [...] Upcoming Encounters Date Type Department Care Team ([facility] Contact Info) Description 11/14/2024 4:00 PM EDT Office Visit [facility] MED & PEDS [address] [place] [address] Rolanda Thakur MD 505 [place] [address] documented as of this encounter Visit Diagnoses Diagnosis Type 2 diabetes mellitus without complication, without long-term current use of insulin ([facility]) Anxiety Anxiety state, unspecified documented in this encounter Care Teams Sampling Theory Teacher Relationship Specialty Start Date End Date Rolanda Thakur MD [address] [place] [address] PCP - General Internal Medicine 09/19/22 documented as of this encounter
--- OUTSIDE RECORDS SUMMARY | 2024-11-09 09:40 | XMS_ITS | Encounter Summary ---
Author Organization [employer] Address [address] [place] [address] [place] [address] Care Team Providers Care Hops Farmworker Name Role Phone Rolanda Thakur MD Primary Care Provider +1- [phone] Reason for Visit * Reason Onset Date Comments Referral 07/31/2024 Encounter Details Date Type Department Care Team ([facility] Contact Info) Description 07/31/2024 Telephone [facility] CHC MED & PEDS [address] [place] [address] Rolanda Thakur MD [address] [place] [address] Referral Social History Tobacco Use Types Packs/Day [...] Hirsch. [facility] documented in this encounter Plan of Treatment Upcoming Encounters Date Type Department Care Team (Late st Contact Info) Description 11/14/2024 4:00 PM EDT Office Visit [facility] MED & PEDS [address] [place] [address] Rolanda Thakur MD [address] [place] [address] documented as of this encounter Visit Diagnoses Not on filedocumented in this encounter Additional Health Concerns Assessment Noted Time PHQ-9 Depression Total Score: 2 05/13/20 24 9:24 AM EDT documented as of this encounter Care Teams Hops Farmworker Relationship Specialty Start Date End Date Rolanda Thakur MD [address] [place] [address] PCP - General Internal Medicine 09/19/22 documented as of this encounter
--- OUTSIDE RECORDS SUMMARY | 2024-11-09 09:40 | XMS_ITS | Encounter Summary ---
Author Organization [employer] Address [address] [place] [address] Care Team Providers Care Editorial Assistant Name Role Phone Rolanda Thakur MD Primary Care Provider +1- [phone] Encounter Details Date Type Department Care Team (Late Contact Info) Description 01/22/2024 Orders Only [facility] MED & PEDS [address] [place] [address] Rolanda Thakur MD [address] [place] [address] Benign essential hypertension Social History Tobacco Use [...] 11/14/2024 4:00 PM EDT Office Visit [facility] MED & PEDS [address] [place] [address] Rolanda Thakur MD 505 [place], [place] [phone] documented as of this encounter Procedures Procedure Name Priority Date/Time Associated Diagnosis Comments XR TOES 2+ VIEWS RIGHT Routine 02/19/2024 11:22 AM EDT documented in this encounter Results * XR Toes 2+ Views Right (02/19/2024 11:22 AM EDT) Anatomical Region Laterality Modality Lower Extremities, Toes Left Radiogra phic Imaging 02/19/2024 11:2 2 AM EDT Narrative 02/19/2024 12:38 PM EDT ?[facility] ?[address] ?[place] [address] ?XRay Report ? Signed ? Patient: Lorna Pinedahryn ?MR#: [id number] ? : 1950 ?Acct:[id number] ? Age/Sex: 73 / F ?ADM Date: 02/19/24 ? Loc: HO.[facility]X ? Attending Dr: Migdalia PALMER ? Ordering Physician: Migdalia Loza ?? Date of Service: 02/19/24 ?? Procedure(s): XR toe RT min 2V ?? Accession Number(s): [id number] ? cc: Migdalia Loza ? EXAMINATION: ?? [...] 1234 ? DD/ 1122 ? TD/TT: ? Combine Mechanic: SS ? Procedure Note Donotuseinterpreter, Image - 02/19/[address] [address] XRay Report Signed Patient: Angely PinedaMR#: [id number] : 1950cct:[id number] Age/Sex: 73 / FADM Date: 02/19/24 [facility]: Migdalia PALMER Ordering Physician: Migdalia Loza Date of Service: 02/19/24 Procedure(s): XR toe RT min 2V Accession Number(s): [id number] cc: Migdalia Loza EXAMINATION: BILATERAL TOES CLINICAL [...] in OV> 02/19/24 1234 DD/ 1122 TD/TT: Combine Mechanic: SS Migdalia PALMER IMG XR PROCEDURES Edited Resul t - Final documented in this encounter Visit Diagnoses Diagnosis Benign essential hypertension Essential hypertension, benign documented in this encounter Care Teams Editorial Assistant Relationship Specialty Start Date End Date Rolanda Thakur MD [address] [place] [address] PCP - General Internal Medicine 09/19/22 documented as of this encounter
--- OUTSIDE RECORDS SUMMARY | 2024-11-09 09:40 | XMS_ITS | Encounter Summary ---
Author Organization [employer] Address [address] [place] [address] Care Team Providers Care Photoresist Printer Name Role Phone Rolanda Thakur MD Primary Care Provider +1- [phone] Reason for Visit * Reason Onset Date Comments Med Refill 04/04/2024 Encounter Details Date Type Department Care Team (Late st Contact Info) Description 04/04/2024 Telephone [facility] MEDICINE [address] [place] [address] Rolanda Thakur MD 505 [place] [address] Med Refill Social History Tobacco Use Types [...] [facility] MED & PEDS [address] [place] [address] Rolanda Thakur MD [address] [place] [address] documented as of this encounter Visit Diagnoses Diagnosis Anxiety- Primary Anxiety state, unspecified documented in this encounter Care Teams Photoresist Printer Relationship Specialty Start Date End Date Rolanda Thakur MD [address] [place] [address] PCP - General Internal Medicine 09/19/22 documented as of this encounter
--- OUTSIDE RECORDS SUMMARY | 2024-11-09 09:40 | XMS_ITS | Encounter Summary ---
Author Organization [employer] Address [address] [place] [address] Care Team Providers Care Diplomatic Courier Name Role Phone Rolanda Thakur MD Primary Care Provider Encounter Details Date Type Department Care Team (Late Contact Info) Description 05/16/2023 Orders Only [facility] MED & PEDS [address] [place] [address] Rolanda Thakur MD 505 [place] [address] Bilateral leg paresthesia (Primary Dx); Anxiety; Diabetic [...] Office Visit [facility] MED & PEDS [address] [place], [place] [phone] Rolanda Thakur MD [address] [place], [place] [phone] Scheduled Orders Name Type Priority Associated Diagnoses [...] * Vitamin B6 (10/10/2023 12:50 PM EST) [facility] Vitamin B6 16.0 2.1 - 21.7 ng/mL [facility] Comment:Vitamin supplementat ion within 24 hours prior toblood draw may affect the accuracy of the results.This test was developed and its analytical performancecharacteristics have been determined by [facility] [place], [place]. It hasnot been cleared or approved by the U.S. Food and DrugAdministration. This assay has been validated pursuantto the CLIA regulations and is used for clinicalpurposes.THIS TEST WAS PERFORMED AT:[employer] [place] [address]VIXPHLCTHEO PEDERSEN MD,PHD Blood Venous blood specimen / Unknown 10/10/2023 12:50 PM EST 10/10/2023 2:41 PM EST Rolanda Thakur MD LAB BLOOD ORDERABLES Final Result Performing Organization Address [facility] de Phone Number [facility] [address] [place] [phone] * (ABNORMAL) Vitamin B12 (10/10/2023 12:50 PM EST) Vitamin B12 1,388(H) 200 - 900 pg/mL [facility] Comment:NORMAL 200-900 PG/ML INDETERMINATE 160-199 PG/ML DEFICIENT < 160 PG/ML Blood Venous blood specimen / Unknown 10/10/2023 12:50 PM EST 10/10/2023 2:41 PM EST Rolanda Thakur MD LAB BLOOD ORDERABLES Final Result Performing Organization Address [facility] de Phone Number [facility] [address] [place] [phone] * TSH W/Reflex to FT4 (10/10/2023 12:50 PM EST) Pathologist [facility] TSH reflex Free T4 0.35 0.32 - 4.0 uIU/mL [facility] Blood 10/10/2023 12:5 0 PM EST 10/10/2023 2:41 PM EST Rolanda Thakur MD LAB BLOOD ORDERABLES Final Result Performing Organization Address [facility] Co de Phone Number [facility] [address] [place] [phone] * (ABNORMAL) CBC auto differential (10/10/2023 12:50 PM EST) Pathologist [facility] White Blood Count 8.0 4.8 - 10.8 X10*3/uL [facility] Red Blood Count 4.19(L) 4.20 - 5.50 X10*6/uL [facility] Hemoglobin 12.3 12.0 - 16.0 g/dl [facility] Hematocrit 36.6(L) 37.0 - 47.0 % [facility] Mean Corpuscular Volume 87.4 80.0 - 98.0 fL [facility] Mean Corpuscular Hemoglobin 29.4 27.0 - 33.0 pg [facility] Mean Corpuscular HGB Conc 33.6 31.0 - 35.0 g/dl [facility] Red Cell Distribution Width 12.8 11.0 - 16.0 % [facility] Platelet Count 252 160 - 400 X10*3/uL [facility] Mean Platelet Volume 9.5 9.4 - 12.3 fL [facility] Neutrophils Percent Auto 55.5 45 - 73 % [facility] Imm Gran Pct Auto 0.4 0.0 - 0.4 % [facility] Lymphocytes Percent Auto 31.3 20 - 40 % [facility] Monocytes Percent Auto 6.0 2 - 11 % [facility] Eosinophils Percent Auto 5.9(H) 0 - 4 % [facility] Basophils Percent Auto 0.9 0 - 2 % [facility] NRBC Pct Auto 0.0 0.0 - 0.2 /100WBC [facility] Neutrophils Absolute Auto 4.5 2.0 - 8.3 x10*3/uL [facility] Imm Gran Abs Auto 0.03 0.00 - 0.03 X10*3/uL [facility] Lymphocytes Absolute Auto 2.5 1.2 - 4.9 X10*3/uL [facility] Monocytes Absolute Auto 0.5 0.1 - 1.2 X10*3/uL [facility] Eosinophils Absolute Auto 0.5(H) 0.0 - 0.4 X10*3/uL [facility] Basophils Absolute Auto 0.1 0.0 - 0.2 X10*3/uL [facility] NRBC Abs Auto 0.000 0.0 - 0.012 X10*3/uL [facility] Blood Venous blood specimen / Unknown 10/10/2023 12:50 PM EST 10/10/2023 2:41 PM EST us Thevenin Beauzile MD LAB BLOOD ORDERABLES Final Result [facility] [address] [place] [phone] [phone] documented in this encounter Visit Diagnoses Diagnosis Bilateral leg paresthesia- Primary Disturbance of skin sensation Anxiety Anxiety state, unspecified Diabetic polyneuropathy associated with type 2 diabetes mellitus (CMS/HCC) documented in this encounter Care Teams Diplomatic Courier Relationship Specialty Start Date End Date Rolanda Thakur MD [address] [place] [address] PCP - General Internal Medicine 09/19/22 documented as of this encounter
--- OUTSIDE RECORDS SUMMARY | 2024-11-09 09:40 | XMS_ITS | Encounter Summary ---
Author Organization [employer] Address [address] [place] [address] [facility] [place] [address] Care Team Providers Care Vision Care Associate Name Role Phone Rolanda Thakur MD Primary Care Provider [phone] Reason for Referral * Consultation (Routine) - Closed Specialty Diagnoses / Procedures Referred By Freddy meadows Referred To Contact Neurology Diagnoses Other polyneuropathy Rolanda Thakur MD [address] [place] [address] Phone: tel: fax: [facility] Neurology [address] [place] [address] [place], [place] Phone: tel: fax: Referral ID Status Reason Start Date Expiration Date V isits Requested Visits Authorized [id number] Closed Specialty Services Required 11/22/2023 11/21/2024 1 1 * Consultation (Routine) - Closed Specialty Diagnoses / Procedures Referred By Freddy meadows Referred To Contact Physiatry Diagnoses Other polyneuropathy Rolanda Thakur MD [address] [place] [address] Phone: tel: fax: Referral ID Status Reason Start Date Expiration Date V isits Requested Visits Authorized [id number] Closed Specialty Services Required 11/17/2023 11/16/2024 1 1 Encounter Details Date Type Department Care Team (Late Contact Info) Description 11/16/2023 Orders Only [facility] MED & PEDS [address] [place] [address] Rolanda Thakur MD [address] [place] [address] Other polyneuropathy (Primary Dx) Social History Tobacco [...] Description 11/14/2024 4:00 PM EDT Office Visit [facility] MED & PEDS [address] [place] [address] Rolanda Thakur MD [address] [place] [address] Scheduled Referrals Name Type Priority Associated Diagnoses Orde r Schedule Referral to Physiatry Outpatient Referral Routine Other polyneuropathy Expected: 11/17/2023 (Approximate), Expires: 11/16/2024 Referral to Neurology Outpatient Referral Routine Other polyneuropathy Expected: 11/22/2023 (Approximate), Expires: 11/21/2024 documented as of this encounter Visit Diagnoses Diagnosis Other polyneuropathy- Primary documented in this encounter Care Teams Vision Care Associate Relationship Specialty Start Date End Date Rolanda Thakur MD [address] [place] [address] PCP - General Internal Medicine 09/19/22 documented as of this encounter
--- OUTSIDE RECORDS SUMMARY | 2024-11-09 09:40 | XMS_ITS | Encounter Summary ---
Author Organization [employer] Address 75 [facility] 7 [place] [address] Care Team Providers Care Car Manager Name Role Phone Rolanda Thakur MD Primary Care Provider +1- [phone] Reason for Visit * Reason Onset Date Comments Durable Medical Equipment 04/29/2024 Encounter Details Date Type Department Care Team (Late st Contact Info) Description 04/29/2024 Telephone [facility] MEDICINE [address] [place] [address] Rolanda Thakur MD 505 [place] [address] Durable Medical Equipment Social History Tobacco Use [...] - 04/29/2024 3:34 PM EDT Tc from [facility] stating pt is requesting blood pressure monitor but they don't have a script. If any questions you can contact [employer] at [phone]. documented in this encounter Plan of Treatment Upcoming Encounters Date Type Department Care Team ([facility] st Contact Info) Description 11/14/2024 4:00 PM EDT Office Visit [facility] MED & PEDS [address] [place] [address] Rolanda Thakur MD 505 [place] [address] documented as of this encounter Visit Diagnoses Not on filedocumented in this encounter Care Teams Car Manager Relationship Specialty Start Date End Date Rolanda Thakur MD [address] [place] [address] PCP - General Internal Medicine 09/19/22 documented as of this encounter
--- OUTSIDE RECORDS SUMMARY | 2024-11-09 09:40 | XMS_ITS | Encounter Summary ---
Author Organization [employer] Address [address] [place] [address] Care Team Providers Care Coal Hiker Name Role Phone Rolanda Thakur MD Primary Care Provider Encounter Details Date Type Department Care Team (Late Contact Info) Description 12/07/2023 Telephone [facility] MEDICINE [address] [place], [place] [phone] Rolanda Thakur MD 505 [place] [address] Social History Tobacco Use Types Packs/Day Years [...] Description 11/14/2024 4:00 PM EDT Office Visit [facility]C MED & PEDS [address] [place], [place] [phone] Rolanda Thakur MD [address] [place], [place] [phone] documented as of this encounter Visit Diagnoses Not on filedocumented in this encounter Care Teams Coal Hiker Relationship Specialty Start Date End Date Rolanda Thakur MD [address] [place] [address] PCP - General Internal Medicine 09/19/22 documented as of this encounter
--- OUTSIDE RECORDS SUMMARY | 2024-11-09 09:40 | XMS_ITS | Encounter Summary ---
Author Organization [employer] Address [address] [place] [address] Care Team Providers Care Jig Grinder Name Role Phone Rolanda Thakur MD Primary Care Provider +1- [phone] Reason for Visit * Reason Onset Date Comments Referral 06/13/2024 Encounter Details Date Type Department Care Team (Late st Contact Info) Description 06/13/2024 Telephone [facility] MEDICINE [address] [place] [address] Rolanda Thakur MD [address] [place], [place] [phone] Referral Social History Tobacco Use Types Packs/Day [facility] [address] [place] [address] Rolanda Thakur MD [address] [place] [address] documented as of this encounter Visit Diagnoses Not on filedocumented in this encounter Additional Health Concerns Assessment Noted Time PHQ-9 Depression Total Score: 2 05/13/20 24 9:24 AM EDT documented as of this encounter Care Teams Jig Grinder Relationship Specialty Start Date End Date Rolanda Thakur MD 505 [place] [address] PCP - General Internal Medicine 09/19/22 documented as of this encounter
--- OUTSIDE RECORDS SUMMARY | 2024-11-09 09:40 | XMS_ITS | Encounter Summary ---
Author Organization [employer] Address [address] [place] [address] Care Team Providers Care Baggage Inspector Name Role Phone Rolanda Thakur MD Primary Care Provider +1- [phone] Reason for Visit * Reason Onset Date Comments Call Back Request 11/17/2023 Encounter Details Date Type Department Care Team ([facility] st Contact Info) Description 11/17/2023 Telephone [facility] MEDICINE [address] [place] [address] Rolanda Thakur MD [address] [place] [address] Call Back Request Social History Tobacco Use [...] Message sent to PCP for review through [employer] portal * Telephone Encounter - Jenny Neff - 11/17/2023 8:06 AM EDT Tc from pt requesting a call back pt stated needs more information and clarifications 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 Please contact pt. documented in this encounter Plan of Treatment Upcoming Encounters Date Type Department Care Team ([facility] st Contact Info) Description 11/14/2024 4:00 PM EDT Office Visit [facility] MED & PEDS [address] [place] [address] Rolanda Thakur MD [address] [place] [address] documented as of this encounter Visit Diagnoses Not on filedocumented in this encounter Care Teams Baggage Inspector Relationship Specialty Start Date End Date Rolanda Thakur MD [address] [place] [address] PCP - General Internal Medicine 09/19/22 documented as of this encounter
--- OUTSIDE RECORDS SUMMARY | 2024-11-09 09:40 | XMS_ITS | Encounter Summary ---
Author Organization [employer] Address 75 [facility] 7 [place] [address] Care Team Providers Care Boiler Operator Helper Name Role Phone Rolanda Thakur MD Primary Care Provider +1- [phone] Reason for Visit * Reason Onset Date Comments Nurse Triage 09/24/2024 Encounter Details Date Type Department Care Team (Late st Contact Info) Description 09/24/[address] [facility] MEDICINE [address] [place] [address] Rolanda Thakur MD 505 [place] [address] Nurse Triage Social History Tobacco Use Types [...] WIC for today as no appts in [facility]. Pt states gets panic attacks if has to wait . Pt advised unfortunately no appts in [facility]> Unable to schedule ahead for WIC. Pt states will seek [facility] Walk IN clinic on [facility] in [place]. Will send to team as FYI to [...] acuity questions The caller accepted this outcome. [phone] documented in this encounter Plan of Treatment Upcoming Encounters Date Type Department Care Team (Late st Contact Info) Description 11/14/2024 4:00 PM EDT Office Visit [facility] MED & PEDS [address] [place] [address] Rolanda Thakur MD [address] [place] [address] documented as of this encounter Visit Diagnoses Not on filedocumented in this encounter Additional Health Concerns Assessment Noted Time PHQ-9 Depression Total Score: 2 05/13/20 24 9:24 AM EDT documented as of this encounter Care Teams Boiler Operator Helper Relationship Specialty Start Date End Date Rolanda Thakur MD [address] [place] [address] PCP - General Internal Medicine 09/19/22 documented as of this encounter
--- OUTSIDE RECORDS SUMMARY | 2024-11-09 09:40 | XMS_ITS | Encounter Summary ---
Author Organization [employer] Address [address] [place] [address] Care Team Providers Care Distribution Manager Name Role Phone Rolanda Thakur MD Primary Care Provider +1- [phone] Reason for Visit * Reason Onset Date Comments Appointment Request 11/06/2024 Encounter Details Date Type Department Care Team ([facility] st Contact Info) Description 11/06/2024 Telephone [facility] MEDICINE [address] [place] [address] Rolanda Thakur MD [address] [place] [address] Appointment Request Social History Tobacco Use Types [...] Description 11/14/2024 4:00 PM EDT Office Visit [facility] CHC MED & PEDS [address] [place] [address] Rolanda Thakur MD [address] [place] [address] documented as of this encounter Visit Diagnoses Not on filedocumented in this encounter Additional Health Concerns Assessment Noted Time PHQ-9 Depression Total Score: 2 05/13/20 24 9:24 AM EDT documented as of this encounter Care Teams Distribution Manager Relationship Specialty Start Date End Date Rolanda Thakur MD [address] [place] [address] PCP - General Internal Medicine 09/19/22 documented as of this encounter
--- OUTSIDE RECORDS SUMMARY | 2024-11-09 09:40 | XMS_ITS | Encounter Summary ---
Author Organization [employer] Address [address] [place] [address] Care Team Providers Care Drill Sergeant Name Role Phone Roladna Thakur MD Primary Care Provider [phone]- [phone] Reason for Visit * Reason Onset Date Comments EKG 06/18/2024 Encounter Details Date Type Department Care Team ([facility] st Contact Info) Description 06/18/2024 Telephone [facility] CHC MED & PEDS [address] [place] [address] Rolanda Thakur MD [address] [place] [address] EKG Social History Tobacco Use Types Packs/Day [...] Given pt's symptoms, she would need a [facility] appointment to get the notes for our social security specialist to process the referral. * Telephone [...] should seek a neurology referral. She states engineering research manager advised her to get a referral due to procedure done for cataracts might have struck a nerve and that might be were the headaches are coming from. * Telephone Encounter - Annabella Peña - 06/18/2024 4:03 PM EDT Tc from pt requesting status on order for EKG. Contact Paulette at [phone] documented in this encounter Plan of Treatment Upcoming Encounters Date Type Department Care Team (Late st Contact Info) Description 11/14/2024 4:00 PM EDT Office Visit [facility] MED & PEDS [address] [place] [address] Rolanda Thakur MD [address] [place] [address] documented as of this encounter Visit Diagnoses Not on filedocumented in this encounter Additional Health Concerns Assessment Noted Time PHQ-9 Depression Total Score: 2 05/13/20 24 9:24 AM EDT documented as of this encounter Care Teams Drill Sergeant Relationship Specialty Start Date End Date Rolanda Thakur MD [address] [place] [address] PCP - General Internal Medicine 09/19/22 documented as of this encounter
--- OUTSIDE RECORDS SUMMARY | 2024-11-09 09:40 | XMS_ITS | Encounter Summary ---
Author Organization [employer] Address [address] [place] [address] Care Team Providers Care Explosives Operator Name Role Phone Rolanda Thakur MD Primary Care Provider [phone]- [phone] Reason for Referral * Consultation (Routine) - Closed Specialty Diagnoses / Procedures Referred By Freddy t Referred To Contact Chiropractic Medicine Diagnoses Chronic left-sided low back pain with left-sided sciatica Rolanda Thakur MD [address] [place] [address] Phone: tel: fax: [facility] fax: Referral ID Status Reason Start Date Expiration Date V isits Requested Visits Authorized [id number] Closed Specialty Services Required 08/08/2024 08/08/2025 1 1 * Consultation (Routine) - Closed Specialty Diagnoses / Procedures Referred By Freddy t Referred To Contact Physical Therapy Diagnoses Chronic left-sided low back pain with left-sided sciatica Rolanda Thakur MD [address] [place] [address] Phone: tel: fax: [facility] Physical Therapy [address] [place] [address] Phone: tel: fax: Referral ID Status Reason Start Date Expiration Date V isits Requested Visits Authorized [id number] Closed Specialty Services Required 08/05/2024 08/05/2025 1 1 * Consultation (Routine) - Closed Specialty Diagnoses / Procedures Referred By Freddy meadows Referred To Contact Chiropractic Medicine Diagnoses Chronic left-sided low back pain with left-sided sciatica Rolanda Thakur MD [address] [place] [address] Phone: tel: fax: Referral ID Status Reason Start Date Expiration Date V isits Requested Visits Authorized [id number] Closed Specialty Services Required 08/02/2024 08/02/2025 1 1 Encounter Details Date Type Department Care Team ([facility] Contact Info) Description 08/02/2024 Orders Only [facility] CHC MED & PEDS [address] [place] [address] Rolanda Thakur MD [address] [place] [address] Chronic left-sided low back pain with left-sided [...] Upcoming Encounters Date Type Department Care Team ([facility] st Contact Info) Description 11/14/2024 4:00 PM EDT Office Visit [facility] MED & PEDS [address] [place] [address] Rloanda Thakur MD [address] [place] [address] Scheduled Referrals Name Type Priority Associated Diagnoses [...] EST ? [facility] ?[address] ? [place] [address] ?XRay Report ? Signed ? Patient: Angely Pineda ?MR#: [id number] ? : 1950 ?Acct:[id number] ? Age/Sex: 74 / F ?ADM Date: 08/12/24 ? Loc: HO.HMGCX ? Attending Dr: Wyatt Golden MD ? Ordering Physician: Wyatt Golden MD ?? Date of Service: 08/12/24 ?? Procedure(s): XR cervical spine 5V ?? Accession Number(s): [id number] ? cc: Rolanda Thakur MD; Wyatt Golden [...] 08/12/ 0950 ? TD/TT: 08/12/24 1000 ? Feather Shaper: ? Procedure Note Donotuseinterpreter, Image - 09/02/2024 [facility] [place] [address] XRay Report Signed Patient: Erma Pineda#: [id number] : 1950cct:[id number] Age/Sex: 74 / FADM Date: 08/12/24 Loc: HO.HMGCX Attending Dr: Wyatt Golden MD Ordering Physician: Wyatt Golden MD Date of Service: 08/12/24 Procedure(s): XR cervical spine 5V Accession Number(s): [id number] cc: Rolanda Thakur MD; Wyatt Golden MD [...] 09/02/24 1121 DD/ 0950 TD/TT: 08/12/24 1000 Feather Shaper: us Wyatt Mcdonald MD IMG XR PROCEDURES Iftikhar mecca Result - Final documented in this encounter Visit Diagnoses Diagnosis Chronic left-sided low back pain with left-sided sciatica- Primary documented in this encounter Additional Health Concerns Assessment Noted Time PHQ-9 Depression Total Score: 2 05/13/20 24 9:24 AM EDT documented as of this encounter Care Teams Explosives Operator Relationship Specialty Start Date End Date Rolanda Thakur MD [address] [place] [address] PCP - General Internal Medicine 09/19/22 documented as of this encounter
--- OUTSIDE RECORDS SUMMARY | 2024-11-09 09:40 | XMS_ITS | Encounter Summary ---
Author Organization [employer] Address [address] [place] [address] [place] [address] Care Team Providers Care Estate Planning Attorney Name Role Phone Rolanda Thakur MD Primary Care Provider +1- [phone] Reason for Visit * Reason Onset Date Comments Referral 09/29/2022 Encounter Details Date Type Department Care Team ([facility] st Contact Info) Description 09/29/2022 Telephone [facility] CHC MED & PEDS [address] [place] [address] Rolanda Thakur MD [address] [place] [address] Referral Social History Tobacco Use Types Packs/Day [...] to fax order to Dr Dempsey on [phone] Dempsey's office on [phone]. Will forward message to provider. RN called Roxanne and gave her the phone and fax number to Dr Dempsey's office and also to f/u when EMG order is placed by PCP. * Telephone Encounter - Machelle Adam RN - 10/03/2022 10:09 AM EST Return call placed to Haylie at [facility] neuroscience, spoke with Jumana who states their office donot see pt for diabetic polyneuropathy but instead sees pt for foot drop or other issue. States Haylieis unavailable at this time but will informed her to call [facility] back if needed. Will forward message to PCP as FYI. * Telephone Encounter - Brinda Barnard - 09/29/2022 1:30 PM EST Tc from Haylie from [facility] med / rehab calling to inform they need more dx clarification for referral that was sent . 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
--- OUTSIDE RECORDS SUMMARY | 2024-11-09 09:40 | XMS_ITS | Encounter Summary ---
Author Organization [employer] Address [address] [facility] 7 [place] [address] Care Team Providers Care Farmworker Fruit Name Role Phone Rolanda Thakur MD Primary Care Provider Reason for Visit * Reason Onset Date Comments FYI 10/31/2024 Call Back Request 10/31/2024 Encounter Details Date Type Department Care Team (Late st Contact Info) Description 10/31/2024 Telephone [facility] MEDICINE [address] [place] [address] Rolanda Thakur MD [address] [place] [address] FYI ; Call Back Request Social History [...] forgot medication name. Please contact pt at [phone]. documented in this encounter Plan of Treatment Upcoming Encounters Date Type Department Care Team (Late st Contact Info) Description 11/14/2024 4:00 PM EDT Office Visit [facility] CHC MED & PEDS [address] [place] [address] Rolanda Thakur MD [address] [place] [address] documented as of this encounter Visit Diagnoses Not on filedocumented in this encounter Additional Health Concerns Assessment Noted Time PHQ-9 Depression Total Score: 2 05/13/20 24 9:24 AM EDT documented as of this encounter Care Teams Farmworker Fruit Relationship Specialty Start Date End Date Rolanda Thakur MD [address] [place] [address] PCP - General Internal Medicine 09/19/22 documented as of this encounter
--- OUTSIDE RECORDS SUMMARY | 2024-11-09 09:40 | XMS_ITS | Encounter Summary ---
Author Organization [employer] Address [address] [place] [address] Care Team Providers Care Trim Operator Name Role Phone Rolanda Thakur MD Primary Care Provider [phone]- [phone] Reason for Visit * Reason Onset Date Comments Nurse Triage 08/05/2024 Encounter Details Date Type Department Care Team ([facility] st Contact Info) Description 08/05/2024 Telephone [facility] MEDICINE [address] [place] [address] Rolanda Thakur MD [address] [place] [address] Nurse Triage Social History Tobacco Use Types [...] to come to [facility] today which is open till 8pm and also open 830am -800pm tomorrow. Pt agrees with this disposition. [facility], if unable will come tomorrow. [...] [facility] [address] [place] [address] Rolanda Thakur MD [address] [place] [address] documented as of this encounter Visit Diagnoses Not on filedocumented in this encounter Additional Health Concerns Assessment Noted Time PHQ-9 Depression Total Score: 2 05/13/20 24 9:24 AM EDT documented as of this encounter Care Teams Trim Operator Relationship Specialty Start Date End Date Rolanda Thakur MD [address] [place] [address] PCP - General Internal Medicine 09/19/22 documented as of this encounter
--- OUTSIDE RECORDS SUMMARY | 2024-11-09 09:40 | XMS_ITS | Clinical Summary ---
Author Organization [facility] Address [address] [place], [place] [id number] Care Team Providers Care Packing And Wrapping Supervisor Name Role Phone Rahel Hough MD Primary Care Provider [phone] Allergies Active Allergy Reactions Criticality Noted Date [...] mg by mouth daily. 0 09/09/2020 Active Norco-3 Fatty Acids (FISH OIL) 1000 MG CAPS [...] age to complete this topic Care Teams Packing And Wrapping Supervisor Relationship Specialty Start Date End Date Rahel Hough MD [address] [facility] [place] [address] PCP - General Internal Medicine 11/20/20
--- OUTSIDE RECORDS SUMMARY | 2024-11-09 09:40 | XMS_ITS | Encounter Summary ---
Author Organization [employer] Address [address] [place] [address] Care Team Providers Care Guest Specialist Name Role Phone Rolanda Thakur MD Primary Care Provider [phone]- [phone] Reason for Visit * Reason Onset Date Comments Call Back Request 10/31/2024 Encounter Details Date Type Department Care Team ([facility] st Contact Info) Description 10/31/2024 Telephone [facility] MEDICINE [address] [place] [address] Rolanda Thakur MD [address] [place] [address] Call Back Request Social History Tobacco Use [...] to DR. Castañeda. Please contact pt at [phone]. documented in this encounter Plan of Treatment Upcoming Encounters Date Type Department Care Team ([facility] st Contact Info) Description 11/14/2024 4:00 PM EDT Office Visit [facility] CH[facility] MED & PEDS [address] [place] [address] Rolanda Thakur MD [address] [place] [address] documented as of this encounter Visit Diagnoses Not on filedocumented in this encounter Additional Health Concerns Assessment Noted Time PHQ-9 Depression Total Score: 2 05/13/20 24 9:24 AM EDT documented as of this encounter Care Teams Guest Specialist Relationship Specialty Start Date End Date Rolanda Thakur MD [address] [place] [address] PCP - General Internal Medicine 09/19/22 documented as of this encounter
--- OUTSIDE RECORDS SUMMARY | 2024-11-09 09:40 | XMS_ITS | Encounter Summary ---
Author Organization [employer] Address [address] [place] [address] Care Team Providers Care Heat Engineering Teacher Name Role Phone Rolanda Thakur MD Primary Care Provider [phone] Reason for Visit * Reason Onset Date Comments Medication Question 04/04/2024 Encounter Details Date Type Department Care Team (Late st Contact Info) Description 04/04/2024 Telephone [facility] MEDICINE [address] [place] [address] Rolanda Thakur MD [address] [place], [place] [id number] Medication Question Social History Tobacco Use Types [...] [facility] [address] [place] [address] Rolanda Thakur MD [address] [place] [address] documented as of this encounter Visit Diagnoses Not on filedocumented in this encounter Care Teams Heat Engineering Teacher Relationship Specialty Start Date End Date Rolanda Thakur MD [address] [place] [address] PCP - General Internal Medicine 09/19/22 documented as of this encounter
--- OUTSIDE RECORDS SUMMARY | 2024-11-09 09:40 | XMS_ITS | Encounter Summary ---
Author Organization [employer] Address [address] [place] [address] [place] [address] Care Team Providers Care Tube Inspector Name Role Phone Rolanda Thakur MD Primary Care Provider Reason for Visit * Reason Onset Date Comments Medication Question 12/09/2022 Encounter Details Date Type Department Care Team ([facility] st Contact Info) Description 12/09/2022 Telephone [facility] CHC MED & PEDS [address] [place] [address] Rolanda Thakur MD [address] [place] [address] Medication Question Social History Tobacco Use Types [...] - 12/09/2022 3:51 PM EDT Tc from [facility] requesting a clarification in new script for Synthroid 50 MCG tablet if dosage was sent incorrectly because in last script (levothyroxine (Synthroid) 150 MCG tablet) it qyt969 MCG and New script is it 50 mcg so pharmacy is requesting some clarification Please contact Pharmacy at [phone] documented in this encounter Plan of Treatment Upcoming Encounters Date Type Department Care Team (Late st Contact Info) Description 11/14/2024 4:00 PM EDT Office Visit [facility] MED & PEDS [address] [place] [address] Rolanda Thakur MD [address] [place] [address] documented as of this encounter Visit Diagnoses Not on filedocumented in this encounter Care Teams Tube Inspector Relationship Specialty Start Date End Date Rolanda Thakur MD [address] [place] [address] PCP - General Internal Medicine 09/19/22 documented as of this encounter
--- OUTSIDE RECORDS SUMMARY | 2024-11-09 09:40 | XMS_ITS | Encounter Summary ---
Author Organization [employer] Address [address] [place] [address] [place] [address] Care Team Providers Care Machine Hand Name Role Phone Rolanda Thakur MD Primary Care Provider [phone]- [phone] Reason for Visit * Reason Onset Date Comments CT scan order 07/03/2024 Encounter Details Date Type Department Care Team ([facility] Contact Info) Description 07/03/2024 Telephone [facility] CHC MED & PEDS [address] [place] [address] Rolanda Thakur MD [address] [place] [address] CT scan order Social History Tobacco Use [...] incorrect location. Pt prefers being seen in [facility]. Please call pt to clarify. documented in this encounter Plan of Treatment Upcoming Encounters Date Type Department Care Team ([facility] st Contact Info) Description 11/14/2024 4:00 PM EDT Office Visit [facility] MED & PEDS [address] [place] [address] Rolanda Thakur MD [address] [place] [address] documented as of this encounter Visit Diagnoses Not on filedocumented in this encounter Additional Health Concerns Assessment Noted Time PHQ-9 Depression Total Score: 2 05/13/20 24 9:24 AM EDT documented as of this encounter Care Teams Machine Hand Relationship Specialty Start Date End Date Rolanda Thakur MD [address] [place] [address] PCP - General Internal Medicine 09/19/22 documented as of this encounter
--- OUTSIDE RECORDS SUMMARY | 2024-11-09 09:40 | XMS_ITS | Encounter Summary ---
Author Organization [employer] Address [address] [place] [address] 7 [place] [address] Care Team Providers Care Wholesale Manager Name Role Phone Rolanda Thakur MD Primary Care Provider [phone]- [phone] Reason for Visit * Reason Comments Med Refill Encounter Details Date Type Department Care Team ([facility] Contact Info) Description 01/05/2023 Refill [facility] MED & PEDS [address] [place] [address] Karoline Castañeda MD [address] [place] [address] Social History Tobacco Use Types Packs/Day Years [...] Upcoming Encounters Date Type Department Care Team ([facility] Contact Info) Description 11/14/2024 4:00 PM EDT Office Visit [facility] MED & PEDS [address] [place] [address] Rolanda Thakur MD [address] [place] [address] documented as of this encounter Visit Diagnoses Not on filedocumented in this encounter Care Teams Wholesale Manager Relationship Specialty Start Date End Date Rolanda Thakur MD [address] [place] [address] PCP - General Internal Medicine 09/19/22 documented as of this encounter
--- OUTSIDE RECORDS SUMMARY | 2024-11-09 09:40 | XMS_ITS | Encounter Summary ---
Author Organization [employer] Address [address] [place] [address] Care Team Providers Care Bookbinder Chief Name Role Phone Rolanda Thakur MD Primary Care Provider [phone]- [phone] Reason for Referral * Consultation (Routine) - Authorized Specialty Diagnoses / Procedures Referred By Contac t Referred To Contact Endocrinology Diagnoses Type 2 diabetes mellitus without complication, without long-term current use of insulin (CMS/HCC) Benign essential hypertension Rolanda Thakur MD [address] [place] [address] Phone: tel: fax: [facility] Endocrinology [address] [place] [address] Phone: tel: fax: Referral ID Status Reason Start Date Expiration Date Visits Requested Visits Authorized [id number] Authorized Specialty Services Required 11/07/2024 11/07/2025 1 1 Encounter Details Date Type Department Care Team (Late st Contact Info) Description 11/07/2024 Orders Only [facility] MEDICINE [address] [place] [address] Rolanda Thakur MD [address] [place] [address] Type 2 diabetes mellitus without complication, without [...] Upcoming Encounters Date Type Department Care Team ([facility] st Contact Info) Description 11/14/2024 4:00 PM EDT Office Visit [facility] CHC MED & PEDS [address] [place] [address] Rolanda Thakur MD [address] [place] [address] Scheduled Referrals Name Type Priority Associated Diagnoses Orde r Schedule Referral to Endocrinology Outpatient Referral Routine Type 2 diabetes mellitus without complication, without long-term current use of insulin ([facility]) Benign essential hypertension Expected: 11/07/2024 (Approximate), Expires: 11/07/2025 documented as of this encounter Visit Diagnoses Diagnosis Type 2 diabetes mellitus without complication, without long-term current use of insulin ([facility])- Primary Benign essential hypertension Essential hypertension, benign documented in this encounter Additional Health Concerns Assessment Noted Time PHQ-9 Depression Total Score: 2 05/13/20 24 9:24 AM EDT documented as of this encounter Care Teams Bookbinder Chief Relationship Specialty Start Date End Date Rolanda Thakur MD [address] [place] [address] PCP - General Internal Medicine 09/19/22 documented as of this encounter
--- OUTSIDE RECORDS SUMMARY | 2024-11-09 09:40 | XMS_ITS | Clinical Summary ---
Author Organization [address] [facility] Address [address] [place] [address] Phone Care Team Providers Care Corporate Counselor Name Role Phone Rolanda Thakur MD Primary Care Provider +1 -[phone] Allergies Active Allergy Reactions Criticality Noted Date [...] aware that this will likely be an mmm-pl-bdelrk cost and feels as though she can afford it. I will review results and determine need for future follow-up. In the meantime she would like to hold off on statin therapy which I think is totally reasonable. Orders: ECG 12 lead Pure hypercholesterolemia 07/08/2024 Assessment & Plan (07/08/2024 4:42 PM EST): See plan above. Encounters Date Type Department Care Team Description 09/12/2024 Telephone [facility] [address] [address] Nikki Rawls MD Hypertension 09/07/2024 9:51 AM EST - 09/07/2024 11:59 PM EST Hospital Encounter [facility] Xray [address] [place] [address] Pain Discharge Disposition: Home or Self Care 09/07/2024 9:45 AM EST - 09/07/2024 11:59 PM EST Hospital Encounter [facility] Xray [address] [place] [address] Pain Discharge Disposition: Home or Self Care 08/22/2024 Telephone [facility] [address] [address] scan from Last [...] AM EDT [facility] at [address] [phone] 02/13/2025 10:50 AM EDT Office Visit [facility] [address] [phone] Nikki Rawls MD [address] [place] [address] Health Maintenance Due Date Last Done Comments [...] VIEWS Routine 09/07/2024 10:06 AM EST Pain [facility] SCREENING DIGITAL Routine 10/23/2023 9:44 AM EST Encounter for screening mammogram for malignant neoplasm of breast [facility] DEXA AXIAL SKELETON Routine 04/12/2023 7:46 AM [...] Signed Date: 09/09/2024 07:17 ET Workstation ID: [id number] Transcribed By: Self Edit Transcribed Date: 09/09/2024 [...] Signed Date: 09/09/2024 07:17 ET Workstation ID: [id number] Transcribed By: Self Edit Transcribed Date: 09/09/2024 [...] Signed Date: 09/09/2024 07:17 ET Workstation ID: [id number] Transcribed By: Self Edit Transcribed Date: 09/09/2024 [...] Signed Date: 09/09/2024 07:17 ET Workstation ID: [id number] Transcribed By: Self Edit Transcribed Date: 09/09/2024 07:11 ET us Jamel Gilbert DC IMG XR PROCEDURES Final Result * [facility] SCREENING DIGITAL (10/23/2023 9:44 AM EST) Anatomical Region Laterality Modality Mammography 10/19/2023 2:21 PM EST Narrative 10/23/2023 9:44 AM EST [facility] Diagnostic Imaging Department [address] [place] [address] [id number] Patient: ??ANEGLY PINEDA ?/Age/Sex: 1950 - 73 - F Unit#: ??[id number] ? Location/Status: ??SPDIMAM/REG CLI ? Mnemonic/Ordering Site: ??DIGSC/SPMAIN Ordering Physician: ??MAREN UREÑA MD [facility] Screening Digital - 10/21/23 - 0810 Report Status:Signed EXAM: [facility] Screening Digital EXAM DATE AND TIME: 10/21/2023 8:11 AM HISTORY: ??Screening. COMPARISON: ??10/12/22, 06/08/21, 03/04/20 TECHNIQUE: Bilateral digital breast tomosynthesis was performed in the CC and MLO projections. Computer aided detection with [employer] 3D 3.1 was employed. TISSUE DENSITY: a. [...] BILATERAL in 1 year. Dictating Physician: ??MARIA GAUDALUPE GOTTI MD Electronically Signed by: ??MARIA GUADALUPE GOTTI MD Dic Date/Time: ??10/23/23943 Sign date/Time: ??10/23/23943 Procedure Note Maria Guadalupe Gotti MD - 04/08/2024 [facility] Diagnostic Imaging Department [address] [place] [address] Patient: ANGELY PINEDA YARA /Age/Sex: 1950 73 - F Unit#: [id number] Location/Status: [facility] Mnemonic/Ordering Site: [facility] Ordering Physician: MAREN UREÑA MD [facility] Screening Digital - 10/21/[address]809 Report Status:Signed EXAM: [facility] Screening Digital EXAM DATE AND TIME: 10/21/2023 8:11 AM HISTORY: Screening. COMPARISON: 10/12/22, 06/08/21, 03/04/20 TECHNIQUE: Bilateral digital breast tomosynthesis was performed in the CCand MLO projections. Computer aided detection with [employer] 3D 3.1was employed. TISSUE DENSITY: a. The [...] PM EDT Narrative 04/12/2023 7:46 AM EDT [facility] Diagnostic Imaging Department [address] [place] [address] Patient: ??ANGELY PINEDA ?/Age/Sex: 1950 - 72 - F Unit#: ??[id number] ? Location/Status: ??SPDIMAM/REG CLI ? Mnemonic/Ordering Site: [...] probability of hip fracture of 2.2%. Code 57316 Dictating Physician: ??GWENDOLYN BAHENA MD Electronically Signed by: ??GWENDOLYN BAHENA MD Dic Date/Time: ??04/12/23 0745 Sign date/Time: ??04/12/23 0746 Procedure Note Gwendolyn Bahena MD - 09/26/2023 [facility] Diagnostic Imaging Department [address] [place] [address] Patient: ANGELY PINEDA /Age/Sex: 1950 - 72 - F Unit#: [id number] Location/Status: SPDIMAM/REG CLI Mnemonic/Ordering Site: [facility] Ordering Physician: MAREN UREÑA MD [facility]a Axial Skeleton - 04/11/23 - 4473 Report Status:Signed HISTORY: The patient is a [...] density of the femurs bilaterally is 0.874 gm/lz7atxoo is 87% of that of young normals [...] probability of hip fracture of 2.2%. Code 81304 Dictating Physician: GWENDOLYN BAHENA MD Electronically Signed by: GWENDOLYN BAHENA MD Dic Date/Time: 04/12/23 0745 Sign date/Time: 04/12/23 0746 Maren Ureña MD IMG BI PROCEDURES Final Result from Last 3 Months or Most Recently Relevant to Health Maintenance Insurance [employer] [address] Care Teams Corporate Counselor Relationship Specialty Start Date End Date Rolanda Thakur MD [address] [place] [address] PCP - General 11/03/23
--- OUTSIDE RECORDS SUMMARY | 2024-11-09 09:40 | XMS_ITS | Encounter Summary ---
Author Organization [employer] Address [address] [place] [address] Care Team Providers Care Reimbursement Consultant Name Role Phone Rolanda Thakur MD Primary Care Provider [phone]- [phone] Reason for Visit * Reason Onset Date Comments Created In Error 04/29/2024 Encounter Details Date Type Department Care Team ([facility] Contact Info) Description 04/29/2024 Telephone [facility] MEDICINE [address] [place] [address] Rolanda Thakur MD [address] [place] [address] Created In Error Social History Tobacco Use [...] Upcoming Encounters Date Type Department Care Team ([facility] Contact Info) Description 11/14/2024 4:00 PM EDT Office Visit [facility] CHC MED & PEDS [address] [place], [place] [phone] Rolanda Thakur MD [address] [place], [place] [phone] documented as of this encounter Visit Diagnoses Not on filedocumented in this encounter Care Teams Reimbursement Consultant Relationship Specialty Start Date End Date Rolanda Thakur MD [address] [place] [address] PCP - General Internal Medicine 09/19/22 documented as of this encounter
--- OUTSIDE RECORDS SUMMARY | 2024-11-09 09:40 | XMS_ITS | Encounter Summary ---
Author Organization [employer] Address [address] [place] [address] Care Team Providers Care Cost And Risk Analysis Manager Name Role Phone Rolanda Thakur MD Primary Care Provider [phone] Encounter Details Date Type Department Care Team (Late Contact Info) Description 06/21/2023 Abstract [facility] MEDICINE [address] [place] [address] Sherrie Caballero Social History Tobacco Use Types [...] 4:00 PM EDT Office Visit [facility] CHC MED & PEDS [address] [place], [place] [phone] Rolanda Thakur MD [address] [place], [place] [phone] documented as of this encounter Procedures Procedure [...] on filedocumented in this encounter Care Teams Cost And Risk Analysis Manager Relationship Specialty Start Date End Date Rolanda Thakur MD [address] [place] [address] PCP - General Internal Medicine 09/19/22 documented as of this encounter
--- OUTSIDE RECORDS SUMMARY | 2024-11-09 09:40 | XMS_ITS | Encounter Summary ---
Author Organization [employer] Address [address] [place] [address] [place] [address] Care Team Providers Care Livestock Farm Workers Name Role Phone Rolanda Thakur MD Primary Care Provider Encounter Details Date Type Department Care Team ([facility] st Contact Info) Description 05/01/2023 Orders Only [facility] CHC MED & PEDS [address] [place] [address] Rolanda Thakur MD [address] [place] [address] Diabetic polyneuropathy associated with type 2 diabetes [...] Description 11/14/2024 4:00 PM EDT Office Visit [facility] CHC MED & PEDS [address] [place] [address] Rolanda Thakur MD [address] [place] [address] documented as of this encounter Procedures Procedure [...] AM EDT) Hemoglobin A1c 6.1(H) <6.0 % [facility] Comment:Hemoglobin A1C Refer ence Range Adults: 4.8 - 6.0 % Non diabetic: < 6.0 % Goal: < 7.0 %Additional Action Suggested: > 8.0 %Note: Hemoglobin A1c results are invalid for patients with abnormal amounts of HbF. Blood transfusions may impact the HbA1c concentration in the patient sample. Estimated Average Glucose 128 mg/dL [facility] Comment:eAG = Estimated ave rage glucose which is %A1C expressed asaverage glucose, using the formula of the T3J-HwhbbnlTxxvrgb Glucose study (ADAG), Diabetes Care, Vol.31,#8,Mar. 2007 Blood Venous blood specimen / Unknown 05/08/2023 11:04 AM EDT 05/08/2023 1:46 PM EDT us Rolanda Thakur MD LAB BLOOD ORDERABLES Final Result [facility] [address] [place] [phone] * Vitamin D, 25-Hydroxy, Total, Immunoassay (05/08/2023 11:04 AM EDT) Vitamin D 25-OH Total 84.6 >30 ng/mL [facility] Comment:Health Based Referen ce Values*< 20 ng/mL Fdinwpmjk63-59 ng/mL Insufficient> 30 ng/mL Sufficient*Arabella MCALLISTER. N [...] Final Result Performing Organization Address [facility]/ZIP Co de Phone Number [facility] [address] [place] [phone] * Hepatic Function Panel (05/08/2023 11:04 AM EDT) Bilirubin, Total 0.5 0.0 - 1.0 mg/dL [facility] Bilirubin, Direct 0.2 0.0 - 0.5 mg/dL [facility] Aspartate Amino Transferase 22 5 - 31 U/L [facility] Alanine Aminotransferase 18 0 - 31 U/L [facility] Total Protein 7.1 6.5 - 8.0 g/dL [facility] Albumin Level 4.4 3.5 - 5.0 g/dL [facility] Alkaline Phosphatase 70 39 - 117 U/L [facility] Blood Venous blood specimen / Unknown 05/08/2023 11:04 AM EDT 05/08/2023 1:47 PM EDT Rolanda Thakur MD LAB BLOOD ORDERABLES Final Result Performing Organization Address [facility] Co de Phone Number [facility] [address] [place] [phone] * (ABNORMAL) Lipid Panel, Standard (05/08/2023 11:04 AM EDT) Triglycerides 110 <150 mg/dL [facility] Comment:Desirable Triglyceri de: less than 150 mg/dLBorderline High Triglyceride 150-199 mg/dLHigh Triglyceride: 200-499 mg/dLVery High Triglyceride: greater than or equal to 5OO mg/dL Cholesterol 198 <200 mg/dL [facility] Comment:Desirable Cholestero l: less than 200 mg/dLBorderline High Cholesterol: 200-239 mg/dLHigh Cholesterol: greater than 239 mg/dL LDL Cholesterol Calculated 121(H) <100 mg/dL [facility] Comment:Desirable LDL: less than 100 mg/dLNear Optimal/Above Optimal LDL: 110- 129 mg/dLBorderline High LDL: 130-159 mg/dLHigh LDL: 160-189 mg/dLVery High LDL: greater than or equal to 190 mg/dL HDL Cholesterol 55 >40 mg/dL [facility] Comment:Desirable HDL: great er than 40 mg/dL Note: This HDL assay may give artificially low results in patients with liver disease. Blood Venous blood specimen / Unknown 05/08/2023 11:04 AM EDT 05/08/2023 1:47 PM EDT us Rolanda Thakur MD LAB BLOOD ORDERABLES Final Result Performing Organization Address [facility]/ZIP Co de Phone Number [facility] [address] [place] [phone] * TSH W/Reflex to FT4 (05/08/2023 11:04 AM EDT) TSH reflex Free T4 0.53 0.32 - 4.0 uIU/mL [facility] Blood 05/08/2023 11:0 4 AM EDT 05/08/2023 1:47 PM EDT us Rolanda Thakur MD LAB BLOOD ORDERABLES Final Result Performing Organization Address [facility] Co de Phone Number [facility] [address] [place] [phone] * (ABNORMAL) Basic Metabolic Panel (05/08/2023 11:04 AM EDT) Sodium 137 135 - 145 mmol/L [facility] Potassium 4.4 3.3 - 5.1 mmol/L [facility] Chloride 108 96 - 108 mmol/L [facility] Carbon Dioxide 24 22 - 29 mmol/L [facility] Anion Gap 9(L) 12 - 20 [facility] Urea Nitrogen (BUN) 14 9 - 16 mg/dL [facility] Creatinine, Serum 1.03 0.5 - 1.4 mg/dL [facility] Estimated Glomerular Filt Rate 53 [facility] Comment:NOTE: For -Am erican individuals, multiply the result by 1.210.Chronic Kidney Disease: Estimated GFR < 60 mL/min/1.88v1Wjjsup Kidney Disease: Estimated GFR < 15 mL/min/1.73m2 Glucose 208(H) 60 - 115 mg/dL [facility] Calcium 10.1 8.4 - 10.2 mg/dL [facility] Blood Venous blood specimen / Unknown 05/08/2023 11:04 AM EDT 05/08/2023 1:47 PM EDT us Rolanda Thakur MD LAB BLOOD ORDERABLES Final Result [facility] [address] [place] [phone] * (ABNORMAL) CBC auto differential (05/08/2023 11:04 AM EDT) White Blood Count 8.6 4.8 - 10.8 X10*3/uL [facility] Red Blood Count 4.27 4.20 - 5.50 X10*6/uL [facility] Hemoglobin 12.6 12.0 - 16.0 g/dl [facility] Hematocrit 37.9 37.0 - 47.0 % [facility] Mean Corpuscular Volume 88.8 80.0 - 98.0 fL [facility] Mean Corpuscular Hemoglobin 29.5 27.0 - 33.0 pg [facility] Mean Corpuscular HGB Conc 33.2 31.0 - 35.0 g/dl [facility] Red Cell Distribution Width 13.0 11.0 - 16.0 % [facility] Platelet Count 266 160 - 400 X10*3/uL [facility] Mean Platelet Volume 9.5 9.4 - 12.3 fL [facility] Neutrophils Percent Auto 50.3 45 - 73 % [facility] Imm Gran Pct Auto 0.3 0.0 - 0.4 % [facility] Lymphocytes Percent Auto 33.4 20 - 40 % [facility] Monocytes Percent Auto 7.0 2 - 11 % [facility] Eosinophils Percent Auto 7.8(H) 0 - 4 % [facility] Basophils Percent Auto 1.2 0 - 2 % [facility] NRBC Pct Auto 0.0 0.0 - 0.2 /100WBC [facility] Neutrophils Absolute Auto 4.3 2.0 - 8.3 x10*3/uL [facility] Imm Gran Abs Auto 0.03 0.00 - 0.03 X10*3/uL [facility] Lymphocytes Absolute Auto 2.9 1.2 - 4.9 X10*3/uL [facility] Monocytes Absolute Auto 0.6 0.1 - 1.2 X10*3/uL [facility] Eosinophils Absolute Auto 0.7(H) 0.0 - 0.4 X10*3/uL [facility] Basophils Absolute Auto 0.1 0.0 - 0.2 X10*3/uL [facility] NRBC Abs Auto 0.000 0.0 - 0.012 X10*3/uL [facility] Blood Venous blood specimen / Unknown 05/08/2023 11:04 AM EDT 05/08/2023 1:46 PM EDT Rolanda Thakur MD LAB BLOOD ORDERABLES Final Result [facility] [address] [place] [phone] documented in this encounter Visit Diagnoses Diagnosis Diabetic polyneuropathy associated with type 2 diabetes mellitus (CMS/HCC)- Primary documented in this encounter Care Teams Livestock Farm Workers Relationship Specialty Start Date End Date Rolanda Thakur MD [address] [place] [phone] PCP - General Internal Medicine 09/19/22 documented as of this encounter
--- OUTSIDE RECORDS SUMMARY | 2024-11-09 09:40 | XMS_ITS | Encounter Summary ---
Author Organization [employer] Address [address] [place] [address] [place] [address] Care Team Providers Care Credit Intern Name Role Phone Rolanda Thakur MD Primary Care Provider [phone] Reason for Visit * Reason Onset Date Comments Medication Question 12/08/2022 Encounter Details Date Type Department Care Team ([facility] st Contact Info) Description 12/08/2022 Telephone [facility] CH[facility] MED & PEDS [address] [place] [address] Rolanda Thakur MD [address] [place] [address] Medication Question Social History Tobacco Use Types [...] Description 11/14/2024 4:00 PM EDT Office Visit [facility] [address] [place] [address] Rolanda Thakur MD [address] [place] [address] documented as of this encounter Visit Diagnoses Not on filedocumented in this encounter Care Teams Credit Intern Relationship Specialty Start Date End Date Rolanda Thakur MD [address] [place] [address] PCP - General Internal Medicine 09/19/22 documented as of this encounter
--- OUTSIDE RECORDS SUMMARY | 2024-11-09 09:40 | XMS_ITS | Encounter Summary ---
Author Organization [employer] Address [address] [place] [address] 7 [place] [address] Care Team Providers Care Manager Managed Care Name Role Phone Rolanda Thakur MD Primary Care Provider Encounter Details Date Type Department Care Team (Late Contact Info) Description 04/08/2024 Orders Only [facility] [address] [place], [place] [phone] Rolanda Thakur MD [address] [place], [place] [phone] UTI symptoms (Primary Dx) Social History Tobacco [...] Description 11/14/2024 4:00 PM EDT Office Visit [facility] CHC MED & PEDS [address] [place], [place] [phone] Rolanda Thakur MD [address] [place], [place] [phone] documented as of this encounter Visit Diagnoses Diagnosis UTI symptoms- Primary documented in this encounter Care Teams Manager Managed Care Relationship Specialty Start Date End Date Rolanda Thakur MD [address] [place] [phone] PCP - General Internal Medicine 09/19/22 documented as of this encounter
--- OUTSIDE RECORDS SUMMARY | 2024-11-09 09:40 | XMS_ITS | Encounter Summary ---
Author Organization [employer] Address [address] [place] [address] [place] [address] Care Team Providers Care Hand Slitter Name Role Phone Rolanda Thakur MD Primary Care Provider [phone]- [phone] Reason for Referral * Imaging (Routine) - Closed Specialty Diagnoses / Procedures Referred By Contac t Referred To Contact Radiology Diagnoses Hyponatremia Decreased GFR Procedures US RENAL BI Rolanda Thakur MD [address] [place] [address] Phone: tel: fax: [address] Phone: tel: fax: Referral ID Status Reason Start Date Expiration Date Visits Re quested Visits Authorized [id number] Closed 07/18/2024 07/18/2025 1 0 Encounter Details Date Type Department Care Team (Late st Contact Info) Description 07/09/2024 Orders Only [facility] CHC MED & PEDS [address] [place], [place] [phone] Rolanda Thakur MD [address] [place] [address] Hyponatremia (Primary Dx); Decreased GFR Social History [...] Description 11/14/2024 4:00 PM EDT Office Visit [facility] MED & PEDS [address] [place], [place] [phone] Rolanda Thakur MD [address] [place] [address] Scheduled Orders Name Type Priority Associated Diagnoses [...] documented as of this encounter Care Teams Hand Slitter Relationship Specialty Start Date End Date Rolanda Thakur MD [address] [place] [address] PCP - General Internal Medicine 09/19/22 documented as of this encounter
--- OUTSIDE RECORDS SUMMARY | 2024-11-09 09:40 | XMS_ITS | Encounter Summary ---
Author Organization [employer] Address [address] [place] [address] [place] [address] Care Team Providers Care English Lecturer Name Role Phone Rolanda Thakur MD Primary Care Provider [phone]- [phone] Reason for Visit * Reason Comments Med Refill Encounter Details Date Type Department Care Team (Late Contact Info) Description 05/20/2024 Refill [facility] CHC MED & PEDS [address] [place] [address] Rolanda Thakur MD [address] [place] [address] Diabetic polyneuropathy associated with type 2 diabetes mellitus ([facility]) Social History Tobacco Use Types Packs/Day Years [...] - [facility] [address] [place] [address] Rolanda Thakur MD [address] [place] [address] documented as of this encounter Visit Diagnoses Diagnosis Diabetic polyneuropathy associated with type 2 diabetes mellitus ([facility]) documented in this encounter Additional Health Concerns Assessment Noted Time PHQ-9 Depression Total Score: 2 05/13/20 24 9:24 AM EDT documented as of this encounter Care Teams English Lecturer Relationship Specialty Start Date End Date Rolanda Thakur MD [address] [facility] [place] [address] PCP - General Internal Medicine 09/19/22 documented as of this encounter
--- OUTSIDE RECORDS SUMMARY | 2024-11-09 09:40 | XMS_ITS | Encounter Summary ---
Author Organization [employer] Address [address] [place] [address] Care Team Providers Care Clinical Nurse Occupational Medicine Name Role Phone Rolanda Thakur MD Primary Care Provider [phone]- [phone] Reason for Visit * Reason Onset Date Comments Nurse Triage 10/31/2024 Encounter Details Date Type Department Care Team (Late st Contact Info) Description 10/31/2024 Telephone [facility] MEDICINE [address] [place] [address] Rolanda Thakur MD [address] [place] [address] Nurse Triage Social History Tobacco Use Types [...] in ED and to call back to [phone] to make that arrangement. Protocol Used: No [...] 4:00 PM EDT Office Visit [facility] MED & PEDS [address] [place] [address] Rolanda Thakur MD [address] [place] [address] documented as of this encounter Visit Diagnoses Not on filedocumented in this encounter Additional Health Concerns Assessment Noted Time PHQ-9 Depression Total Score: 2 05/13/20 24 9:24 AM EDT documented as of this encounter Care Teams Clinical Nurse Occupational Medicine Relationship Specialty Start Date End Date Rolanda Thakur MD [address] [place] [address] PCP - General Internal Medicine 09/19/22 documented as of this encounter
--- OUTSIDE RECORDS SUMMARY | 2024-11-09 09:40 | XMS_ITS | Encounter Summary ---
Author Organization [employer] Address [address] [facility] 7 [place] [address] Care Team Providers Care Associate Professor Of Anthropology Name Role Phone Rolanda Thakur MD Primary Care Provider [phone]- [phone] Reason for Visit * Reason Onset Date Comments Results 03/29/2024 Encounter Details Date Type Department Care Team ([facility] st Contact Info) Description 03/29/2024 Telephone [facility] MEDICINE [address] [place] [address] Rolanda Thakur MD [address] [place], [place] [phone] Results Social History Tobacco Use Types Packs/Day [...] 4:00 PM EDT Office Visit [facility] MED & PEDS [address] [place] [address] Rolanda Thakur MD [address] [place] [address] documented as of this encounter Visit Diagnoses Not on filedocumented in this encounter Care Teams Associate Professor Of Anthropology Relationship Specialty Start Date End Date Rolanda Thakur MD [address] [place] [address] PCP - General Internal Medicine 09/19/22 documented as of this encounter
--- OUTSIDE RECORDS SUMMARY | 2024-11-09 09:40 | XMS_ITS | Encounter Summary ---
Author Organization [employer] Address 75 [facility] 7 [place] [address] Care Team Providers Care Hands Hanger Name Role Phone Rolanda Thakur MD Primary Care Provider +1- [phone] Reason for Visit * Reason Onset Date Comments Nurse Triage 04/04/2024 Encounter Details Date Type Department Care Team (Late st Contact Info) Description 04/04/2024 Telephone [facility] MEDICINE [address] [place] [address] Rolanda Thakur MD [address] [place] [address] Nurse Triage Social History Tobacco Use Types [...] She states that she went to [facility] for Anxiety panic attacks on 03/30/24- [...] treated horribly by the staff at [facility] and she will never go there again. [...] coordinators so that they can get [facility] notes from 03/30/24 Ed visit into pt. Chart and any labs, EKG's etc.. into pt. Chart for visit on 04/05/24 at 315pm. Protocol Used: Anxiety and Panic Attack (Adult) Protocol-Based Disposition: Go to ED/[facility] Now (or to Office with PCP Approval)- [...] 4:00 PM EDT Office Visit [facility] MED & PEDS [address] [place] [address] Rolanda Thakur MD [address] [place] [address] documented as of this encounter Visit Diagnoses Not on filedocumented in this encounter Care Teams Hands Hanger Relationship Specialty Start Date End Date Rolanda Thakur MD [address] [place] [address] PCP - General Internal Medicine 09/19/22 documented as of this encounter
--- OUTSIDE RECORDS SUMMARY | 2024-11-09 09:40 | XMS_ITS | Encounter Summary ---
Author Organization [employer] Address [address] [place] [address] 7 [place] [address] Care Team Providers Care Scrap Baller Name Role Phone Rolanda Thakur MD Primary Care Provider +1- [phone] Encounter Details Date Type Department Care Team ([facility] st Contact Info) Description 09/23/2024 Orders Only [facility] MED & PEDS [address] [place] [address] Rolanda Thakur MD [address] [place] [address] Acquired hypothyroidism (Primary Dx); Benign essential hypertension [...] Upcoming Encounters Date Type Department Care Team ([facility] Contact Info) Description 11/14/2024 4:00 PM EDT Office Visit [facility] MED & PEDS [address] [place] [address] Rolanda Thakur MD [address] [place] [address] Scheduled Orders Name Type Priority Associated Diagnoses [...] PM EST) Aldosterone 2 see note ng/dL [facility] Comment:Unable to flag abnor mal result(s), please refer to reference range(s) below:Adult Reference Ranges for Aldosterone, LC/MS/MS: Upright 8:00 - 10:00 am < or = 28 ng/dL Upright 4:00 - 6:00 pm < or = 21 ng/dL Supine 8:00 - 10:00 am 3 - 16 ng/dLTHIS TEST WAS PERFORMED AT:[facility] [id number] [place] [id number] PEDERSEN MD,PHD Plasma Renin Activity 0.52 0.25 - 5.82 ng/mL/h [facility] Aldosterone/Renin Ratio 3.8 0.9 - 28.9 Ratio [facility] Comment:This test was develo ped and its analytical performancecharacteristics have been determined by [place], [place]. It hasnot been cleared or approved by the U.S. Food and DrugAdministration. This assay has been validated pursuantto the CLIA regulations and is used for clinicalpurposes.THIS TEST WAS PERFORMED AT:[facility] [id number] [place] [id number] PEDERSEN MD,PHD Blood Venous blood specimen / Unknown 09/24/2024 1:40 PM EST 09/24/2024 4:21 PM EST us Rolanda Thakur MD LAB BLOOD ORDERABLES Final Result [facility] [address] [place] [phone] * TSH W/Reflex to FT4 (09/24/2024 1:40 PM EST) TSH reflex Free T4 0.38 0.32 - 4.0 uIU/mL [facility] Blood Venous blood specimen / Unknown 09/24/2024 1:40 PM EST 09/24/2024 4:21 PM EST Rolanda Thakur MD LAB BLOOD ORDERABLES Final Result [facility] [address] [place] [phone] * (ABNORMAL) Basic Metabolic Panel, Fasting (09/24/2024 1:40 PM EST) Sodium 139 135 - 145 mmol/L [facility] Potassium 3.8 3.3 - 5.1 mmol/L [facility] Chloride 106 96 - 108 mmol/L [facility] Carbon Dioxide 22 22 - 29 mmol/L [facility] Anion Gap 15 12 - 20 [facility] Urea Nitrogen (BUN) 13 9 - 16 mg/dL [facility] Creatinine, Serum 0.94 0.5 - 1.4 mg/dL [facility] Estimated Glomerular Filt Rate 58 [facility] Comment:Chronic Kidney Disea se: Estimated GFR < 60 mL/min/1.98h5Hbgyet Kidney Disease: Estimated GFR < 15 mL/min/1.73m2 Glucose Fasting 169(H) 60 - 99 mg/dL [facility] Comment:A fasting glucose of 126 mg/dl or greater on more than oneoccasion is considered diagnostic of diabetes. Calcium 9.9 8.4 - 10.2 mg/dL [facility] Blood Venous blood specimen / Unknown 09/24/2024 1:40 PM EST 09/24/2024 4:21 PM EST us Rolanda Thakur MD LAB BLOOD ORDERABLES Final Result [facility] [address] [place] [phone] [phone] * (ABNORMAL) CBC auto differential (09/24/2024 1:40 PM EST) White Blood Count 7.0 4.8 - 10.8 X10*3/uL [facility] Red Blood Count 4.23 4.20 - 5.50 X10*6/uL [facility] Hemoglobin 12.6 12.0 - 16.0 g/dl [facility] Hematocrit 37.0 37.0 - 47.0 % [facility] Mean Corpuscular Volume 87.5 80.0 - 98.0 fL [facility] Mean Corpuscular Hemoglobin 29.8 27.0 - 33.0 pg [facility] Mean Corpuscular HGB Conc 34.1 31.0 - 35.0 g/dl [facility] Red Cell Distribution Width 12.8 11.0 - 16.0 % [facility] Platelet Count 251 160 - 400 X10*3/uL [facility] Mean Platelet Volume 9.5 9.4 - 12.3 fL [facility] Neutrophils Percent Auto 59.8 45 - 73 % [facility] Imm Gran Pct Auto 0.3 0.0 - 0.4 % [facility] Lymphocytes Percent Auto 26.1 20 - 40 % [facility] Monocytes Percent Auto 8.6 2 - 11 % [facility] Eosinophils Percent Auto 4.3(H) 0 - 4 % [facility] Basophils Percent Auto 0.9 0 - 2 % [facility] NRBC Pct Auto 0.0 0.0 - 0.2 /100WBC [facility] Neutrophils Absolute Auto 4.2 2.0 - 8.3 x10*3/uL [facility] Imm Gran Abs Auto 0.02 0.00 - 0.03 X10*3/uL [facility] Lymphocytes Absolute Auto 1.8 1.2 - 4.9 X10*3/uL [facility] Monocytes Absolute Auto 0.6 0.1 - 1.2 X10*3/uL [facility] Eosinophils Absolute Auto 0.3 0.0 - 0.4 X10*3/uL [facility] Basophils Absolute Auto 0.1 0.0 - 0.2 X10*3/uL [facility] NRBC Abs Auto 0.000 0.0 - 0.012 X10*3/uL [facility] Blood Venous blood specimen / Unknown 09/24/2024 1:40 PM EST 09/24/2024 4:21 PM EST us Rolanda Thakur MD LAB BLOOD ORDERABLES Final Result [facility] [address] [place] [phone] documented in this encounter Visit Diagnoses Diagnosis Acquired hypothyroidism- Primary Unspecified hypothyroidism Benign essential hypertension Essential hypertension, benign documented in this encounter Additional Health Concerns Assessment Noted Time PHQ-9 Depression Total Score: 2 05/13/20 24 9:24 AM EDT documented as of this encounter Care Teams Scrap Baller Relationship Specialty Start Date End Date Rolanda Thakur MD [address] [place] [address] PCP - General Internal Medicine 09/19/22 documented as of this encounter
--- OUTSIDE RECORDS SUMMARY | 2024-11-09 09:40 | XMS_ITS | Encounter Summary ---
Author Organization [employer] Address [address] [place] [address] Care Team Providers Care Apigee Developer Name Role Phone Rolanda Thakur MD Primary Care Provider Encounter Details Date Type Department Care Team (Late Contact Info) Description 03/28/2024 Orders Only [facility] MED & PEDS [address] [place] [address] Karen Alcantar MD [address] [place] [address] Social History Tobacco Use Types Packs/Day Years [...] Description 11/14/2024 4:00 PM EDT Office Visit [facility] MED & PEDS [address] [place] [address] Rolanda Thakur MD [address] [place], [place] [phone] documented as of this encounter Visit Diagnoses Not on filedocumented in this encounter Care Teams Apigee Developer Relationship Specialty Start Date End Date Rolanda Thakur MD [address] [place] [address] PCP - General Internal Medicine 09/19/22 documented as of this encounter
--- OUTSIDE RECORDS SUMMARY | 2024-11-09 09:40 | XMS_ITS | Encounter Summary ---
Author Organization [employer] Address [address] [place] [address] Care Team Providers Care Harbor Police Launch Commander Name Role Phone Rolanda Thakur MD Primary Care Provider Encounter Details Date Type Department Care Team (Late Contact Info) Description 12/07/[address] [facility] MEDICINE [address] [place], [place] [phone] Rolanda Thakur MD [address] [place] [address] Social History Tobacco Use Types Packs/Day Years [...] PM EDT Office Visit [facility] MED & PEDS [address] [place], [place] [phone] Rolanda Thakur MD [address] [place], [place] [phone] documented as of this encounter Visit Diagnoses Not on filedocumented in this encounter Care Teams Harbor Police Launch Commander Relationship Specialty Start Date End Date Rolanda Thakur MD [address] [place] [address] PCP - General Internal Medicine 09/19/22 documented as of this encounter
--- OUTSIDE RECORDS SUMMARY | 2024-11-09 09:41 | XMS_ITS | Encounter Summary ---
Author Organization [employer] Address [address] [place] [address] Care Team Providers Care Powder Shoveler Name Role Phone Rolanda Thakur MD Primary Care Provider Encounter Details Date Type Department Care Team (Late Contact Info) Description 10/27/2023 Orders Only [facility] MED & PEDS [address] [place] [address] Bhavesh Yang, MINOO [address] [place] [address] Social History Tobacco Use Types Packs/Day Years [...] 11/14/2024 4:00 PM EDT Office Visit [facility] MED & PEDS [address] [place] [address] Rolanda Thakur MD [address] [place] [address] documented as of this encounter Visit Diagnoses Not on filedocumented in this encounter Care Teams Powder Shoveler Relationship Specialty Start Date End Date Rolanda Thakur MD [address] [place] [address] PCP - General Internal Medicine 09/19/22 documented as of this encounter
--- OUTSIDE RECORDS SUMMARY | 2024-11-09 09:41 | XMS_ITS | Encounter Summary ---
Author Organization [employer] Address [address] [place] [address] [place] [address] Care Team Providers Care Deputy Assessor Name Role Phone Rolanda Thakur MD Primary Care Provider [phone]- [phone] Reason for Visit * Reason Comments Care Coordination CHW outreach for SDO H-patient declined to participate Encounter Details Date Type Department Care Team (Latest Contact Info) Description 10/14/2024 Patient Outreach [facility] CHC MED & PEDS [address] [place] [address] Rolanda Thakur MD [address] [place] [address] Care Coordination (CHW outreach for SDOH-patient declined [...] Upcoming Encounters Date Type Department Care Team ([facility] st Contact Info) Description 11/14/2024 4:00 PM EDT Office Visit [facility] MED & PEDS [address] [place] [address] Rolanda Thakur MD [address] [place] [address] documented as of this encounter Visit Diagnoses Not on filedocumented in this encounter Additional Health Concerns Assessment Noted Time PHQ-9 Depression Total Score: 2 05/13/20 9:24 AM EDT documented as of this encounter Care Teams Deputy Assessor Relationship Specialty Start Date End Date Rolanda Thakur MD [address] [place] [address] PCP - General Internal Medicine 09/19/22 documented as of this encounter
--- OUTSIDE RECORDS SUMMARY | 2024-11-09 09:41 | XMS_ITS | Encounter Summary ---
Author Organization [employer] Address 75 [facility] 7 [place] [address] Care Team Providers Care Blower Installer Name Role Phone Rolanda Thakur MD Primary Care Provider +1- [phone] Reason for Visit * Reason Onset Date Comments Med Refill 08/19/2024 Encounter Details Date Type Department Care Team (Late st Contact Info) Description 08/19/2024 Refill [facility] [address] [place] [address] Wyatt Huizar MD [address] [place] [address] Neck pain on left side Social History [...] Description 11/14/2024 4:00 PM EDT Office Visit [facility] MED & PEDS [address] [place] [address] Rolanda Thakur MD [address] [place] [address] documented as of this encounter Visit Diagnoses Diagnosis Neck pain on left side documented in this encounter Additional Health Concerns Assessment Noted Time PHQ-9 Depression Total Score: 2 05/13/20 24 9:24 AM EDT documented as of this encounter Care Teams Blower Installer Relationship Specialty Start Date End Date Rolanda Thakur MD [address] [place] [address] PCP - General Internal Medicine 09/19/22 documented as of this encounter
--- OUTSIDE RECORDS SUMMARY | 2024-11-09 09:41 | XMS_ITS | Encounter Summary ---
Author Organization [employer] Address [address] [place] [address] Care Team Providers Care Cable Repairer Name Role Phone Rolanda Thakur MD Primary Care Provider [phone] Encounter Details Date Type Department Care Team (Late Contact Info) Description 08/18/2023 Orders Only [facility] MED & PEDS [address] [place] [address] Rolanda Thakur MD [address] [place] [address] Social History Tobacco Use Types Packs/Day Years [...] 11/14/2024 4:00 PM EDT Office Visit [facility] MED & PEDS [address] [place] [address] Rolanda Thakur MD [address] [place] [address] documented as of this encounter Visit Diagnoses Not on filedocumented in this encounter Care Teams Cable Repairer Relationship Specialty Start Date End Date Rolanda Thakur MD [address] [place] [address] PCP - General Internal Medicine 09/19/22 documented as of this encounter
--- OUTSIDE RECORDS SUMMARY | 2024-11-09 09:41 | XMS_ITS | Encounter Summary ---
Author Organization [employer] Address 75 [facility] 7 [place] [address] Care Team Providers Care Java Developer Name Role Phone Rolanda Thakur MD Primary Care Provider +1- [phone] Encounter Details Date Type Department Care Team ([facility] st Contact Info) Description 10/14/2024 Telephone [facility] MEDICINE [address] [place] [address] Rolanda Thakur MD [address] [place] [address] Social History Tobacco Use Types Packs/Day Years [...] for patient to contact Harleen Manuel at [phone]. documented in this encounter Plan of Treatment Upcoming Encounters Date Type Department Care Team ([facility] st Contact Info) Description 11/14/2024 4:00 PM EDT Office Visit [facility] MED & PEDS [address] [place] [address] Rolanda Thakur MD [address] [place] [address] documented as of this encounter Visit Diagnoses Not on filedocumented in this encounter Additional Health Concerns Assessment Noted Time PHQ-9 Depression Total Score: 2 05/13/20 24 9:24 AM EDT documented as of this encounter Care Teams Java Developer Relationship Specialty Start Date End Date Rolanda Thakur MD [address] [place] [address] PCP - General Internal Medicine 09/19/22 documented as of this encounter
--- OUTSIDE RECORDS SUMMARY | 2024-11-09 09:41 | XMS_ITS | Encounter Summary ---
Author Organization [employer] Address [address] [place] [address] Care Team Providers Care Salesperson Children[employer] Shoes Name Role Phone Rolanda Thakur MD Primary Care Provider [phone]- [phone] Reason for Referral * Consultation (Routine) - Closed Specialty Diagnoses / Procedures Referred By Contac t Referred To Contact Podiatry Diagnoses Type 2 diabetes mellitus without complication, without long-term current use of insulin (CMS/HCC) Rolanda Thakur MD [address] [place] [address] Phone: tel: fax: Carl Avitia DPM Phone: tel: fax: Referral ID Status Reason Start Date Expiration Date V isits Requested Visits Authorized [id number] Closed Specialty Services Required 11/01/2023 10/31/2024 1 1 Encounter Details Date Type Department Care Team (Late st Contact Info) Description 10/23/2023 Orders Only [facility] CHC MED & PEDS [address] [place] [address] Rolanda Thakur MD [address] [place] [address] Acquired hypothyroidism (Primary Dx); Type 2 diabetes [...] Description 11/14/2024 4:00 PM EDT Office Visit [facility] CH[facility] MED & PEDS [address] [place] [address] Rolanda Thakur MD [address] [place] [address] Scheduled Referrals Name Type Priority Associated Diagnoses [...] (CMS/HCC) documented in this encounter Care Teams Salesperson [employer] Sh[employer] Relationship Specialty Start Date End Date Rolanda Thakur MD [address] [place] [address] PCP - General Internal Medicine 09/19/22 documented as of this encounter
--- OUTSIDE RECORDS SUMMARY | 2024-11-09 09:41 | XMS_ITS | Encounter Summary ---
Author Organization [employer] Address [address] [place] [address] Care Team Providers Care Salt Grinder Name Role Phone Rolanda Thakur MD Primary Care Provider [phone]- [phone] Reason for Visit * Reason Onset Date Comments Medication Question 10/23/2023 Encounter Details Date Type Department Care Team (Late st Contact Info) Description 10/23/[address] [facility] MEDICINE [address] [place] [address] Rolanda Thakur MD [address] [place], [place] [phone] Medication Question Social History Tobacco Use Types [...] [facility] [address] [place] [address] Rolanda Thakur MD [address] [place] [address] documented as of this encounter Visit Diagnoses Not on filedocumented in this encounter Care Teams Salt Grinder Relationship Specialty Start Date End Date Rolanda Thakur MD [address] [place] [address] PCP - General Internal Medicine 09/19/22 documented as of this encounter
--- OUTSIDE RECORDS SUMMARY | 2024-11-09 09:41 | XMS_ITS | Encounter Summary ---
Author Organization [employer] Address [address] [place] [address] [place] [address] Care Team Providers Care Cycle Touring Guide Name Role Phone Rolanda Thakur MD Primary Care Provider [phone]- [phone] Reason for Visit * Reason Onset Date Comments Referral 11/16/2023 Encounter Details Date Type Department Care Team ([facility] st Contact Info) Description 11/16/2023 Telephone [facility] CHC MED & PEDS [address] [place] [address] Rolanda Thakur MD 505 [place] [address] Referral Social History Tobacco Use Types Packs/Day [...] MyChart encounter. Any questions, contact pt at [phone] documented in this encounter Plan of Treatment Upcoming Encounters Date Type Department Care Team (Late st Contact Info) Description 11/14/2024 4:00 PM EDT Office Visit [facility] MED & PEDS [address] [place] [address] Rolanda Thakur MD [address] [place] [address] documented as of this encounter Visit Diagnoses Not on filedocumented in this encounter Care Teams Cycle Touring Guide Relationship Specialty Start Date End Date Rolanda Thakur MD [address] [place] [address] PCP - General Internal Medicine 09/19/22 documented as of this encounter
--- OUTSIDE RECORDS SUMMARY | 2024-11-09 09:41 | XMS_ITS | Encounter Summary ---
Author Organization [employer] Address 75 [facility] 7 [place] [address] Care Team Providers Care Physical Therapist Assistant Name Role Phone Rolanda Thakur MD Primary Care Provider +1- [phone] Encounter Details Date Type Department Care Team ([facility] Contact Info) Description 10/08/2024 Telephone [facility] CHC MED & PEDS [address] [place] [address] Rolanda Thakur MD [address] [place] [address] Social History Tobacco Use Types Packs/Day Years [...] 11/14/2024 4:00 PM EDT Office Visit [facility] MED & PEDS [address] [place] [address] Rolanda Thakur MD [address] [place] [address] documented as of this encounter Visit Diagnoses Not on filedocumented in this encounter Additional Health Concerns Assessment Noted Time PHQ-9 Depression Total Score: 2 05/13/20 24 9:24 AM EDT documented as of this encounter Care Teams Physical Therapist Assistant Relationship Specialty Start Date End Date Rolanda Thakur MD [address] [place] [address] PCP - General Internal Medicine 09/19/22 documented as of this encounter
--- OUTSIDE RECORDS SUMMARY | 2024-11-09 09:41 | XMS_ITS | Encounter Summary ---
Author Organization [employer] Address 75 [facility] 7 [place] [address] Care Team Providers Care Church Communications Administrator Name Role Phone Rolanda Thakur MD Primary Care Provider +1- [phone] Encounter Details Date Type Department Care Team ([facility] Contact Info) Description 10/28/[address] [facility] CH[facility] MED & PEDS [address] [place] [address] Rolanda Thakur MD [address] [place] [address] Social History Tobacco Use Types Packs/Day Years [...] 4:00 PM EDT Office Visit [facility] MED & PEDS [address] [place] [address] Rolanda Thakur MD [address] [place] [address] documented as of this encounter Visit Diagnoses Not on filedocumented in this encounter Additional Health Concerns Assessment Noted Time PHQ-9 Depression Total Score: 2 05/13/20 24 9:24 AM EDT documented as of this encounter Care Teams Church Communications Administrator Relationship Specialty Start Date End Date Rolanda Thakur MD [address] [place] [address] PCP - General Internal Medicine 09/19/22 documented as of this encounter
--- OUTSIDE RECORDS SUMMARY | 2024-11-09 09:41 | XMS_ITS | Encounter Summary ---
Author Organization [employer] Address [address] [place] [address] Care Team Providers Care Base Brander Name Role Phone Rolanda Thakur MD Primary Care Provider +1- [phone] Reason for Visit * Reason Onset Date Comments Nurse Triage 01/03/2024 Encounter Details Date Type Department Care Team (Late st Contact Info) Description 01/03/2024 Telephone [facility] MEDICINE [address] [place] [address] Rolanda Thakur MD [address] [place] [address] Nurse Triage Social History Tobacco Use Types [...] [facility] MED & PEDS [address] [place] [address] Rolanda Thakur MD [address] [place] [address] documented as of this encounter Visit Diagnoses Not on filedocumented in this encounter Care Teams Base Brander Relationship Specialty Start Date End Date Rolanda Thakur MD [address] [place] [address] PCP - General Internal Medicine 09/19/22 documented as of this encounter
--- OUTSIDE RECORDS SUMMARY | 2024-11-09 09:41 | XMS_ITS | Encounter Summary ---
Author Organization [employer] Address [address] [place] [address] Care Team Providers Care Broadcast Journalist Name Role Phone Rolanda Thakur MD Primary Care Provider [phone]- [phone] Reason for Visit * Reason Comments Med Refill Encounter Details Date Type Department Care Team (Late st Contact Info) Description 08/27/2024 Refill [facility] MEDICINE [address] [place] [address] Rolanda Thakur MD [address] [place], [place] [phone] Type 2 diabetes mellitus without complication, without long-term current use of insulin ([facility]) Social History Tobacco Use Types [...] Description 11/14/2024 4:00 PM EDT Office Visit [facility] MED & PEDS [address] [place] [address] Rolanda Thakur MD [address] [place] [address] documented as of this encounter Visit Diagnoses Diagnosis Type 2 diabetes mellitus without complication, without long-term current use of insulin ([facility]) documented in this encounter Additional Health Concerns Assessment Noted Time PHQ-9 Depression Total Score: 2 05/13/20 24 9:24 AM EDT documented as of this encounter Care Teams Broadcast Journalist Relationship Specialty Start Date End Date Rolanda Thakur MD [address] [place] [address] PCP - General Internal Medicine 09/19/22 documented as of this encounter
--- OUTSIDE RECORDS SUMMARY | 2024-11-09 09:41 | XMS_ITS | Encounter Summary ---
Author Organization [employer] Address [address] [place] [address] Care Team Providers Care Coding Specialist Name Role Phone Rolanda Thakur MD Primary Care Provider [phone]- [phone] Reason for Visit * Reason Onset Date Comments Med Refill 10/27/2023 Encounter Details Date Type Department Care Team (Late st Contact Info) Description 10/27/2023 Telephone [facility] MEDICINE [address] [place] [address] Rolanda Thakur MD [address] [place] [address] Med Refill Social History Tobacco Use Types [...] on medication 125 Please contact pt @ [phone] No meds. * Telephone Encounter - Haylie Cantor RN - 10/27/2023 3:44 PM EST Patient reporting alternating days of synthroid 125 mcg and synthroid 137 mcg. Requesting new script for synthroid 125 mcg. Please review and advise, thanks. Tc from pt requesting levothyroxine (Synthroid) 125 MCG tablet, telegraphic typewriter operator chief do not see med in chart but pt stated has been taking this medication for 10 years, pt switch 137 and 125 every day, telegraphic typewriter operator chief attempted to contact pharmacy for clarifications but [facility] [address] open at 9:00AM. * Telephone Encounter - Jenny Neff - 10/27/2023 8:31 AM EST Tc from pt requesting levothyroxine (Synthroid) 125 MCG tablet, telegraphic typewriter operator chief do not see med in chart but pt stated has been taking this medication for 10 years, pt switch 137 and 125 every day, telegraphic typewriter operator chief attempted to contact pharmacy for clarifications [facility] [address] open at 9:00AM. documented in this encounter Plan of Treatment Upcoming Encounters Date Type Department Care Team (Late st Contact Info) Description 11/14/2024 4:00 PM EDT Office Visit [facility] MED & PEDS [address] [place] [address] Rolanda Thakur MD [address] [place] [address] documented as of this encounter Visit Diagnoses Not on filedocumented in this encounter Care Teams Coding Specialist Relationship Specialty Start Date End Date Rolanda Thakur MD [address] [place] [address] PCP - General Internal Medicine 09/19/22 documented as of this encounter
--- OUTSIDE RECORDS SUMMARY | 2024-11-09 09:41 | XMS_ITS | Encounter Summary ---
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 Company Manager did advised appt is still expected. Pt is scheduled tmr 12/15/23 for ( chest congestion, cough , yellow nasal drainage. ) Please contact at [phone] * Telephone Encounter - Viktoria Schultz RN [...] point. Pt is advised to come to [facility] today to be seen since open till 8pm. PT is not sure if will be able to do that. Company Manager contacted Haylie Barrientos [facility] and asked if would be possible to schedule Pt at [facility] 12/15/23 340pm apt which Pt [...] [facility] MED & PEDS [address] [place] [address] Rolanda Tahkur MD [address] [place] [address] documented as of this encounter Visit Diagnoses Not on filedocumented in this encounter Care Teams Produce Team Member Relationship Specialty Start Date End Date Rolanda Thakur MD [address] [place] [address] PCP - General Internal Medicine 09/19/22 documented as of this encounter
--- OUTSIDE RECORDS SUMMARY | 2024-11-09 09:41 | XMS_ITS | Clinical Summary ---
Author Organization [facility] Address [address] [place] [address] Care Team Providers Care General Production Worker Name Role Phone Maren Hough MD Primary Care Provider [phone] Social History Tobacco Use Types Packs/Day Years [...] patient's age to complete this topic Insurance [facility] MEDICARE [facility] MEDICARE Care Teams General Production Worker Relationship Specialty Start Date End Date Maren Hough MD [address] [place] [address] PCP - General Family Medicine 06/20/22
--- OUTSIDE RECORDS SUMMARY | 2024-11-09 09:41 | XMS_ITS | Encounter Summary ---
Author Organization [employer] Address [address] [place] [address] Care Team Providers Care Burglar Alarm Superintendent Name Role Phone Rolanda Thakur MD Primary Care Provider Encounter Details Date Type Department Care Team (Late Contact Info) Description 10/27/2023 Telephone [facility] MEDICINE [address] [place], [place] [phone] Rolanda Thakur MD [address] [place] [address] Social History Tobacco Use Types Packs/Day Years [...] 11/14/2024 4:00 PM EDT Office Visit [facility] MED & PEDS [address] [place], [place] [phone] Rolanda Thakur MD [address] [place], [place] [phone] documented as of this encounter Visit Diagnoses Not on filedocumented in this encounter Care Teams Burglar Alarm Superintendent Relationship Specialty Start Date End Date Rolanda Thakur MD [address] [place] [address] PCP - General Internal Medicine 09/19/22 documented as of this encounter
--- OUTSIDE RECORDS SUMMARY | 2024-11-09 09:41 | XMS_ITS | Encounter Summary ---
Author Organization [employer] Address 75 [facility] 7t [place] [address] Care Team Providers Care Go Go Dancer Name Role Phone Rolanda Thakur MD Primary Care Provider [phone] Encounter Details Date Type Department Care Team [...] PM EDT Office Visit [facility] MED & PEDS [address] [place] [address] Rolanda Thakur MD [address] [place] [address] documented as of this encounter Visit Diagnoses Not on filedocumented in this encounter Additional Health Concerns Assessment Noted Time PHQ-9 Depression Total Score: 2 05/13/20 24 9:24 AM EDT documented as of this encounter Care Teams Go Go Dancer Relationship Specialty Start Date End Date Rolanda Thakur MD [address] [place] [address] PCP - General Internal Medicine 09/19/22 documented as of this encounter
--- OUTSIDE RECORDS SUMMARY | 2024-11-09 09:41 | XMS_ITS | Encounter Summary ---
Author Organization [employer] Address [address] [place] [address] Care Team Providers Care Detacher Name Role Phone Rolanda Thakur MD Primary Care Provider [phone]- [phone] Reason for Referral * Consultation (Routine) - Canceled Specialty Diagnoses / Procedures Referred By Contac t Referred To Contact Endocrinology Diagnoses Type 2 diabetes mellitus without complication, without long-term current use of insulin (CMS/HCC) Rolanda Thakur MD [address] [place] [address] Phone: tel: fax: Referral ID Status Reason Start Date Expiration Date Visits Requested Visits Authorized [id number] Canceled Specialty Services Required 10/08/2024 10/08/2025 1 1 Encounter Details Date Type Department Care Team (Late st Contact Info) Description 10/08/2024 Orders Only [facility] MED & PEDS [address] [place] [address] Rolanda Thakur MD [address] [place], [place] [phone] Type 2 diabetes mellitus without complication, without [...] Upcoming Encounters Date Type Department Care Team ([facility] Contact Info) Description 11/14/2024 4:00 PM EDT Office Visit [facility] MED & PEDS [address] [place] [address] Rolanda Thakur MD [address] [place] [address] Scheduled Orders Name Type Priority Associated Diagnoses Orde r Schedule Hemoglobin A1c Lab Routine Type 2 diabetes mellitus without complication, without long-term current use of insulin ([facility]) Expected: 10/08/2024 (Approximate), Expires: 10/08/2025 Scheduled Referrals Name Type Priority Associated Diagnoses Order Schedule Referral to Endocrinology Outpatient Referral Routine Type 2 diabetes mellitus without complication, without long-term current use of insulin ([facility]) Expected: 10/08/2024 (Approximate), Expires: 10/08/2025 documented as of this encounter Visit Diagnoses Diagnosis Type 2 diabetes mellitus without complication, without long-term current use of insulin ([facility])- Primary documented in this encounter Additional Health Concerns Assessment Noted Time PHQ-9 Depression Total Score: 2 05/13/20 24 9:24 AM EDT documented as of this encounter Care Teams Detacher Relationship Specialty Start Date End Date Rolanda Thakur MD [address] [place] [address] PCP - General Internal Medicine 09/19/22 documented as of this encounter
--- OUTSIDE RECORDS SUMMARY | 2024-11-09 09:41 | XMS_ITS | Encounter Summary ---
Author Organization [employer] Address 75 [facility] 7 [place] [address] Care Team Providers Care Wood Boatbuilder Name Role Phone Rolanda Thakur MD Primary Care Provider [phone]- [phone] Encounter Details Date Type Department Care Team ([facility] st Contact Info) Description 10/23/2024 Telephone [facility] MED & PEDS [address] [place], [place] [phone] Apple Britton, PharmD [address] [place] [address] Social History Tobacco Use Types Packs/Day Years [...] Description 11/14/2024 4:00 PM EDT Office Visit [facility] MED & PEDS [address] [place] [address] Rolanda Thakur MD 505 [place] [address] documented as of this encounter Visit Diagnoses Not on filedocumented in this encounter Additional Health Concerns Assessment Noted Time PHQ-9 Depression Total Score: 2 05/13/20 24 9:24 AM EDT documented as of this encounter Care Teams Wood Boatbuilder Relationship Specialty Start Date End Date Rolanda Thakur MD [address] [place] [address] PCP - General Internal Medicine 09/19/22 documented as of this encounter
--- OUTSIDE RECORDS SUMMARY | 2024-11-09 09:41 | XMS_ITS | Encounter Summary ---
Author Organization [employer] Address 75 [facility] 7 [place] [address] Care Team Providers Care Wireless Internet Installer Name Role Phone Rolanda Thakur MD Primary Care Provider [phone] Reason for Visit * Reason Onset Date Comments Nurse Triage 08/09/2024 Encounter Details Date Type Department Care Team (Late st Contact Info) Description 08/09/2024 Telephone [facility] MEDICINE [address] [place] [address] Rolanda Thakur MD [address] [place] [address] Nurse Triage Social History Tobacco Use Types [...] precautions and reasons to call back. Reviewed [facility] operating hours and that wait times vary. Protocol Used: Neck Pain or Stiffness (Adult) Protocol-Based Disposition: See in Office or Video Visit Today or Tomorrow Future Appointments Date Time Provider Department Center 08/10/2024 9:40 AM [facility] WALK[facility] 2 WALK-IN [facility] Insurance verified as active per Real [...] Upcoming Encounters Date Type Department Care Team ([facility] st Contact Info) Description 11/14/2024 4:00 PM EDT Office Visit [facility] MED & PEDS [address] [place] [address] Rolanda Thakur MD [address] [place] [address] documented as of this encounter Visit Diagnoses Not on filedocumented in this encounter Additional Health Concerns Assessment Noted Time PHQ-9 Depression Total Score: 2 05/13/20 24 9:24 AM EDT documented as of this encounter Care Teams Wireless Internet Installer Relationship Specialty Start Date End Date Rolanda Thakur MD [address] [place] [address] PCP - General Internal Medicine 09/19/22 documented as of this encounter
--- OUTSIDE RECORDS SUMMARY | 2024-11-09 09:41 | XMS_ITS | Encounter Summary ---
Author Organization [employer] Address [address] [place] [address] Care Team Providers Care Artist Blacksmith Name Role Phone Rolanda Thakur MD Primary Care Provider [phone] Encounter Details Date Type Department Care Team (Late Contact Info) Description 12/28/2023 Orders Only [facility] MED & PEDS [address] [place] [address] Rolanda Thakur MD [address] [place] [address] Social History Tobacco Use Types Packs/Day Years [...] [facility] [address] [place] [address] Rolanda Thakur MD [address] [place] [address] documented as of this encounter Visit Diagnoses Not on filedocumented in this encounter Care Teams Artist Blacksmith Relationship Specialty Start Date End Date Rolanda Thakur MD [address] [place] [address] PCP - General Internal Medicine 09/19/22 documented as of this encounter
--- OUTSIDE RECORDS SUMMARY | 2024-11-09 09:41 | XMS_ITS | Encounter Summary ---
Author Organization [employer] Address [address] [place] [address] Care Team Providers Care Syrup Machine Laborer Name Role Phone Rolanda Thakur MD Primary Care Provider [phone]- [phone] Reason for Referral * Consultation (Routine) - Authorized Specialty Diagnoses / Procedures Referred By Contac t Referred To Contact Endocrinology Diagnoses Type 2 diabetes mellitus without complication, without long-term current use of insulin (CMS/HCC) Rolanda Thakur MD [address] [place] [address] Phone: tel: [facility]: [facility] [address] [place] [phone] Phone: tel: fax: Referral ID Status Reason Start Date Expiration Date Visits Requested Visits Authorized [id number] Authorized Specialty Services Required 08/26/2024 08/26/2025 1 1 Encounter Details Date Type Department Care Team (Late st Contact Info) Description 08/26/2024 Orders Only [facility] CH[facility] MED & PEDS [address] [place] [phone] Rolanda Thakur MD [address] [place] [address] Type 2 diabetes mellitus without complication, without [...] [facility]EDS [address] [place] [address] Rolanda Thaukr MD [address] [place], [place] [phone] Scheduled Referrals Name Type Priority Associated Diagnoses Order Schedule Referral to Endocrinology Outpatient Referral Routine Type 2 diabetes mellitus without complication, without long-term current use of insulin ([facility]) Expected: 08/26/2024 (Approximate), Expires: 08/26/2025 documented as of this encounter Visit Diagnoses Diagnosis Type 2 diabetes mellitus without complication, without long-term current use of insulin ([facility])- Primary documented in this encounter Additional Health Concerns Assessment Noted Time PHQ-9 Depression Total Score: 2 05/13/20 24 9:24 AM EDT documented as of this encounter Care Teams Syrup Machine Laborer Relationship Specialty Start Date End Date Rolanda Thakur MD [address] [place] [address] PCP - General Internal Medicine 09/19/22 documented as of this encounter
--- OUTSIDE RECORDS SUMMARY | 2024-11-09 09:41 | XMS_ITS | Clinical Summary ---
Author Organization [employer] Address [address] [place] [address] 7 [place] [address] Care Team Providers Care Foxing Painter Name Role Phone Rolanda Thakur MD Primary Care Provider [phone] Allergies Active Allergy Reactions Criticality Noted Date [...] complication, without long-term current use of insulin ([facility]) Chew 4 tablets (16 g) if needed for low blood sugar. 50 tablet 12 4 025 Active glucose blood (Qualifacts Systemsuch Ultra) test stripIndications:T ype 2 diabetes mellitus without complication, without long-term current use of insulin ([facility]) USE DIRECTED TO TEST BLOOD GLUCOSE TWICE DAILY 100 strip 11 4 Active metFORMIN (Glucophage) 500 MG tabletIndications: Type 2 diabetes mellitus without complication, without long-term current use of insulin ([facility]) TAKE 1 TABLET BY MOUTH TWICE DAILY [...] each 11 5 025 Active Continuous Glucose Aquatics Coordinator (Dexcom G7 Aquatics Coordinator) deviceIndications: Type 2 diabetes mellitus without complication, without long-term current use of insulin ([facility]/HCC) 1 each Once per day for [...] Plan: Augmentin BID x 10 days Nasal [place] Follow up if worsening or no improvement [...] intervention , [facility], Patient to engage in OP therapy , and Patient to reach out to [facility] as needed Swelling of lip, tongue, and throat 05/10/2024 Assessment & Plan (05/22/2024 1:00 PM EDT): Patient reports episodes of swelling of exposure to different antigens, at this moment given recurrence and symptoms affecting patients daily, will strongly benefit of assessment from hospitalist program director to help elucidate etiology of symptoms. Peripheral [...] Department Care Team Description 11/07/2024 Orders Only [address] [address] Rolanda Thakur MD Type 2 diabetes mellitus without complication, without long-term current use of insulin ([facility]) (Primary Dx); Benign essential hypertension 11/06/[address] [address] Rolanda Thakur MD Appointment Request 10/31/[address] [address] Rolanda Thakur MD Call Back Request 10/31/[address] [address] Rolanda Thakur MD FYI ; Call Back Request 10/31/[address] [address] Rolanda Thakur MD Nurse Triage 10/28/2024 Telephone [facility] [address] [place] [address] Rolanda Thakur MD 10/23/2024 Telephone [facility] [address] [place] [address] Apple Britton, Carleen 10/14/2024 Patient Outreach [facility] [address] [place] [address] Rolanda Thakur MD Care Coordination (CHW outreach for SDOH-patient declined to participate ) 10/14/[address] [address] Rolanda Thakur MD 10/11/2024 3:45 PM EST Office Visit [facility] [address] [place] [address] Rolanda Thakur MD Type 2 diabetes mellitus without complication, without long-term current use of insulin ([facility]) (Primary Dx); Generalized anxiety disorder with panic attacks; Financial difficulties; Meralgia paresthetica of right side 10/11/2024 Telephone [facility] [address] [place] [address] Rolanda Thakur MD FYI 10/11/2024 Travel 10/08/2024 Telephone [facility] [address] [place] [address] Rolanda Thakur MD Change PCP 10/08/2024 Orders Only [facility] [address] [place] [address] Rolanda Thakur MD Type 2 diabetes mellitus without complication, without long-term current use of insulin (CMS/HCC) (Primary Dx) 10/08/2024 Telephone [facility] [address] [place] [address] Rolanda Thakur MD 09/24/2024 Orders Only GENERIC EXTERNAL DATA DEPARTMENT Provider, Generic External Data 09/24/2024 Telephone [facility] [address] [place] [address] Rolanda Thakur MD Nurse Triage 09/23/2024 Telephone [facility] [address] [place] [address] Huong Heredia, MINOO 09/23/2024 Orders Only [facility] [address] [place] [address] Rolanda Thakur MD Acquired hypothyroidism (Primary Dx); Benign essential hypertension 09/18/2024 Refill [facility] [address] [place] [address] Wyatt Huizar MD Neck pain on left side 09/17/2024 Refill [facility] [address] [place] [address] Rolanda Thakur MD Diabetic polyneuropathy associated with type 2 diabetes mellitus (CMS/HCC) 09/15/2024 Refill [facility] [address] [place] [address] Rolanda Thakur MD 09/10/2024 3:45 PM EST Office Visit [facility] [address] [place] [address] Rolanda Thakur MD Type 2 diabetes mellitus without complication, without long-term current use of insulin ([facility]) (Primary Dx); Diabetic polyneuropathy associated with type 2 diabetes mellitus (CMS/HCC); Spondylosis of cervical region without myelopathy or radiculopathy; Benign essential hypertension 09/10/2024 Travel 09/04/2024 Refill [facility] [address] [place] [address] Rolanda Thakur MD Anxiety; Benign essential hypertension 08/27/2024 Refill [facility] [address] [place] [address] Rolanda Thakur MD Type 2 diabetes mellitus without complication, without long-term current use of insulin (CMS/HCC) 08/26/2024 Orders Only [facility] [address] [place] [address] Rolanda Thakur MD Type 2 diabetes mellitus without complication, without long-term current use of insulin ([facility]) (Primary Dx) 08/23/2024 Refill [facility] [address] [place] [address] Rolanda Thakur MD 08/20/2024 Refill [facility] [address] [place] [address] Rolanda Thakur MD 08/20/2024 Refill [facility] [address] [place] [address] Rolanda Thakur MD 08/20/2024 Refill [facility] [address] [place] [address] Karoline Castañeda MD Acquired hypothyroidism 08/20/2024 Refill [facility] [address] [place] [address] Karen Alcantar MD 08/19/2024 Refill [facility] [address] [place] [address] Wyatt Huizar MD Neck pain on left side 08/19/2024 Refill [facility] [address] [place] [address] Wyatt Huizar MD Neck pain on left side 08/19/2024 Refill [facility] [address] [place] [address] Rolanda Thakur MD Panic attack; Anxiety 08/17/2024 10:40 AM EST Office Visit [facility] [address] [place] [phone] Uday Rodriguez MD Cracked skin (Primary Dx); Sciatica, unspecified laterality 08/17/2024 Refill [facility] [address] [place] [address] Rolanda Thakur MD 08/17/[address] [address] Rolanda Thakur MD 08/17/2024 Travel 08/15/2024 Refill [facility] [address] [place] [address] Rolanda Thakur MD Vitamin D deficiency 08/13/2024 Refill [facility] [address] [place] [address] Rolanda Thakur MD Vitamin D deficiency 08/13/2024 Refill [facility] [address] [place] [address] Maren Hough MD 08/13/2024 Telephone [facility] [address] [place] [address] Rolanda Thakur MD from Last 3 Months [...] Upcoming Encounters Date Type Department Care Team ([facility] st Contact Info) Description 11/14/2024 4:00 PM EDT Office Visit [facility] [address] [place] [address] Rolanda Thakur MD [address] [place] [address] Health Maintenance Due Date Last Done Comments [...] complication, without long-term current use of insulin ([facility]) HM IFOBT Routine 01/03/2022 from Last 3 Months or Most Recently Relevant to Health Maintenance Results * POCT Glucose (10/11/2024 4:11 PM EST) Glucose Blood, POC 185 60 - 200 mg/dL [employer] Media Lot # [id number] Lot# Expiration Date [id number] Comment:random Blood Capillary blood specimen / Unknown 10/11/2024 4:11 PM EST Rolanda Thakur MD POINT OF CARE TEST ENTER/ED IT ORDERABLES Final Result * (ABNORMAL) Basic Metabolic Panel, Fasting (09/24/2024 1:40 PM EST) Sodium 139 135 - 145 mmol/L [facility] Potassium 3.8 3.3 - 5.1 mmol/L [facility] Chloride 106 96 - 108 mmol/L [facility] Carbon Dioxide 22 22 - 29 mmol/L [facility] Anion Gap 15 12 - 20 [facility] Urea Nitrogen (BUN) 13 9 - 16 mg/dL [facility] Creatinine, Serum 0.94 0.5 - 1.4 mg/dL [facility] Estimated Glomerular Filt Rate 58 [facility] Comment:Chronic Kidney Disea se: Estimated GFR < 60 mL/min/1.34w3Zijlmc Kidney Disease: Estimated GFR < 15 mL/min/1.73m2 Glucose Fasting 169(H) 60 - 99 mg/dL [facility] Comment:A fasting glucose of 126 mg/dl or greater on more than oneoccasion is considered diagnostic of diabetes. Calcium 9.9 8.4 - 10.2 mg/dL [facility] Blood Venous blood specimen / Unknown 09/24/2024 1:40 PM EST 09/24/2024 4:21 PM EST us Rolanda Thakur MD LAB BLOOD ORDERABLES Final Result Performing Organization Address [facility] Co de Phone Number [facility] [address] [place] [phone] * TSH W/Reflex to FT4 (09/24/2024 1:40 PM EST) TSH reflex Free T4 0.38 0.32 - 4.0 uIU/mL [facility] Blood Venous blood specimen / Unknown 09/24/2024 1:40 PM EST 09/24/2024 4:21 PM EST us Rolanda Thakur MD LAB BLOOD ORDERABLES Final Result Performing Organization Address [facility] Co de Phone Number [facility] [address] [place] [phone] * Aldosterone/Plasma Renin Activity Ratio, LC/MS/MS (09/24/2024 1:40 PM EST) Aldosterone 2 see note ng/dL [facility] Comment:Unable to flag abnor mal result(s), please refer to reference range(s) below:Adult Reference Ranges for Aldosterone, LC/MS/MS: Upright 8:00 - 10:00 am < or = 28 ng/dL Upright 4:00 - 6:00 pm < or = 21 ng/dL Supine 8:00 - 10:00 am 3 - 16 ng/dLTHIS TEST WAS PERFORMED AT:uiu/[facility] [id number] [place] [address]XZLADVDTHEO PEDERSEN MD,PHD Plasma Renin Activity 0.52 0.25 - 5.82 ng/mL/h [facility] Aldosterone/Renin Ratio 3.8 0.9 - 28.9 Ratio [facility] Comment:This test was develo ped and its analytical performancecharacteristics have been determined by [facility] [place] [place]. It hasnot been cleared or approved by the U.S. Food and DrugAdministration. This assay has been validated pursuantto the CLIA regulations and is used for clinicalpurposes.THIS TEST WAS PERFORMED AT:uiu/[facility] [place] [address]ZZKKQTETHEO PEDERSEN MD,PHD Blood Venous blood specimen / Unknown 09/24/2024 1:40 PM EST 09/24/2024 4:21 PM EST us Rolanda Thakur MD LAB BLOOD ORDERABLES Final Result [facility] [address] [place] [phone] * (ABNORMAL) CBC auto differential (09/24/2024 1:40 PM EST) White Blood Count 7.0 4.8 - 10.8 X10*3/uL [facility] Red Blood Count 4.23 4.20 - 5.50 X10*6/uL [facility] Hemoglobin 12.6 12.0 - 16.0 g/dl [facility] Hematocrit 37.0 37.0 - 47.0 % [facility] Mean Corpuscular Volume 87.5 80.0 - 98.0 fL [facility] Mean Corpuscular Hemoglobin 29.8 27.0 - 33.0 pg [facility] Mean Corpuscular HGB Conc 34.1 31.0 - 35.0 g/dl [facility] Red Cell Distribution Width 12.8 11.0 - 16.0 % [facility] Platelet Count 251 160 - 400 X10*3/uL [facility] Mean Platelet Volume 9.5 9.4 - 12.3 fL [facility] Neutrophils Percent Auto 59.8 45 - 73 % [facility] Imm Gran Pct Auto 0.3 0.0 - 0.4 % [facility] Lymphocytes Percent Auto 26.1 20 - 40 % [facility] Monocytes Percent Auto 8.6 2 - 11 % [facility] Eosinophils Percent Auto 4.3(H) 0 - 4 % [facility] Basophils Percent Auto 0.9 0 - 2 % [facility] NRBC Pct Auto 0.0 0.0 - 0.2 /100WBC [facility] Neutrophils Absolute Auto 4.2 2.0 - 8.3 x10*3/uL [facility] Imm Gran Abs Auto 0.02 0.00 - 0.03 X10*3/uL [facility] Lymphocytes Absolute Auto 1.8 1.2 - 4.9 X10*3/uL [facility] Monocytes Absolute Auto 0.6 0.1 - 1.2 X10*3/uL [facility] Eosinophils Absolute Auto 0.3 0.0 - 0.4 X10*3/uL [facility] Basophils Absolute Auto 0.1 0.0 - 0.2 X10*3/uL [facility] NRBC Abs Auto 0.000 0.0 - 0.012 X10*3/uL [facility] Blood Venous blood specimen / Unknown 09/24/2024 1:40 PM EST 09/24/2024 4:21 PM EST us Rolanda Thakur MD LAB BLOOD ORDERABLES Final Result [facility] [address] [place] [phone] * SARS-CoV-2 RNA, Influenza A/B, and RSV RNA, Ql NAAT (09/24/2024 12:14 PM EST) Influenza A PCR NEGATIVE Negative [facility] Influenza B PCR NEGATIVE Negative [facility] Resp Syncy Virus RNA Qual PCR NEGATIVE Negative [facility] SARS COV2 PCR NEGATIVE Negative [facility] Comment:All test results mus t [...] use by authorized laboratories.Testing performed on the [employer] GeneXpert utilizingreal-time RT-PCR.All SARS CoV2 and positive influenza A/B results arereported to [facility]. 09/24/2024 12:1 4 PM EST 09/24/2024 5:34 PM EST us Generic External Data Provider LAB MICROBIOLOGY - GENERAL ORDERABLES Final Result Performing Organization Address City/State/[facility] Co de Phone Number [facility] [address] [place] [phone] [phone] * XR CERVICAL SPINE 5V (08/12/2024 9:50 AM EST) Anatomical Region Laterality Modality Abdomen Radiographic Gabriella ging 08/12/2024 9:50 AM EST Narrative 09/02/2024 11:24 AM EST ? [facility] ?[address] [facility] [address] ? [place] [address] ?XRay Report ? Signed ? Patient: Angely Pineda ?MR#: [id number] ? : 1950 ?Acct:[id number] ? Age/Sex: 74 / F ?ADM Date: 08/12/24 ? Loc: HO.HMGCX ? Attending Dr: Wyatt Golden MD ? Ordering Physician: Wyatt Golden MD ?? Date of Service: 08/12/24 ?? Procedure(s): XR cervical spine 5V ?? Accession Number(s): [id number] ? cc: Rolanda Thakur MD; Wyatt Golden [...] DD/ 0950 ? TD/TT: 08/12/24 1000 ? Tool And Die Inspector: ? Procedure Note Marian, Image - 09/02/2024 [facility] [address] [place] [address] [place] [address] XRay Report Signed Patient: Erma Pineda#: [id number] : 1950cct:[id number] Age/Sex: 74 / FADM Date: 08/12/24 Loc: .HMGCX Attending Dr: Wyatt Golden MD Ordering Physician: Wyatt Golden MD Date of Service: 08/12/24 Procedure(s): XR cervical spine 5V Accession Number(s): [id number] cc: Rolanda Thakur MD; Wyatt Golden MD [...] 09/02/24 1121 DD/ 0950 TD/TT: 08/12/24 1000 Tool And Die Inspector: Wyatt Mcdonald MD IMG XR PROCEDURES Iftikhar mecca Result - Final * Cologuard?? colon cancer screening (08/09/2024 8:30 AM EST) Pathologist [facility] Cologuard Result Negative Negative 08/18/20 11:52 PM EST [employer] (CLIA #:[id number]) Comment: NEGATIVE TEST RESULT. A negative Cologuard [...] cancer. ??Following a negative Cologuard result, the [place] Cancer Society and U.S. Multi-Society Task Force screening guidelines recommend a Cologuard re-screening interval of 3 years. References: [employer] Guideline for Colorectal Cancer Screening: https://www.cancer.org/cancer/duhgm-sqkase-shucut/tfwrejyah-etybplwva-vngnxgv/ac s-rec ommendations.html.; Santiago MCINTYRE, Ileana PERERA, Emery OLIVER, Colorectal Cancer Screening: Recommendations for Physicians and Patients from the U.S. Multi-Society Task Force on Colorectal Cancer Screening , Am J Gastroenterology 2017; 112:6385-8414. TEST DESCRIPTION: Composite algorithmic analysis of stool [...] (Dioni Kelly al, N Engl J Med 2014;370(14):8051-9706.) Cologuard may produce a false negative or false positive result (no colorectal cancer or precancerous polyp present at colonoscopy follow up). A negative Cologuard test result does not guarantee the absence of CRC or advanced adenoma (pre-cancer). The current Cologuard screening interval is every 3 years. ([place] [employer] Society and U.S. Multi-Society Task Force). Cologuard performance data in a 10,000 patient pivotal study using colonoscopy as the reference method can be accessed at the following location: www.[employer]/results. Additional description of the Cologuard test process, warnings and precautions can be found at www.cologuard.com. Stool specimen (specimen) 08/09/2024 8:30 AM EST 08/10/2024 2:47 PM EST Rolanda Thakur MD LAB MOLECULAR DIAGNOSTICS O RDERABLES Final Result Performing Organization Address City/[facility]/ZIP Co de Phone Number [employer] (CLIA #:[id number]) [address] [place] [address], * Hepatitis C Antibody with Reflex to HCV, RNA, Quantitative, Real-Time PCR (07/17/2024 3:20 PM EST) Hepatitis C Antibody Nonreactive Nonreactive [facility] Comment:Antibodies to HCV no t detected; does not exclude early acuteHCV infection. Blood Venous blood specimen / Unknown 07/17/2024 3:20 PM EST 07/17/2024 5:23 PM EST us Rolnada Thakur MD LAB BLOOD ORDERABLES Final Result Performing Organization Address [facility] Co de Phone Number [facility] [address] [place] [phone] * (ABNORMAL) Lipid Panel, Standard (07/17/2024 3:20 PM EST) Triglycerides 89 <150 mg/dL [facility] Comment:Desirable Triglyceri de: less than 150 mg/dLBorderline High Triglyceride 150-199 mg/dLHigh Triglyceride: 200-499 mg/dLVery High Triglyceride: greater than or equal to 5OO mg/dL Cholesterol 193 <200 mg/dL [facility] Comment:Desirable Cholestero l: less than 200 mg/dLBorderline High Cholesterol: 200-239 mg/dLHigh Cholesterol: greater than 239 mg/dL LDL Cholesterol Calculated 111(H) <100 mg/dL [facility] Comment:Desirable LDL: less than 100 mg/dLNear Optimal/Above Optimal LDL: 110- 129 mg/dLBorderline High LDL: 130-159 mg/dLHigh LDL: 160-189 mg/dLVery High LDL: greater than or equal to 190 mg/dL HDL Cholesterol 65 >40 mg/dL [facility] Comment:Desirable HDL: great er than 40 mg/dL Note: This HDL assay may give artificially low results in patients with liver disease. Blood Venous blood specimen / Unknown 07/17/2024 3:20 PM EST 07/17/2024 5:23 PM EST us Rolanda Thakur MD LAB BLOOD ORDERABLES Final Result Performing Organization Address [facility]/ZIP Co de Phone Number [facility] [address] [place] [phone] * Albumin, Random Urine W/Creatinine (07/17/2024 2:55 PM EST) Creatinine, Urine 38.88 mg/dL [facility] Microalbumin Urine <5.0 mg/L [facility] Microalbum Creatinine Ratio Ur TNP <30 ug/mg cr [facility] Comment:Unable to calculate albumin/creatinine ratio due to lowmicroalbumin or creatinine result. Urine (Urine, Random) 07/17/2024 2:55 PM EST 07/17/2024 5:25 PM EST us Rolanda Thakur MD LAB URINE ORDERABLES Final Result Performing Organization Address [facility] Co de Phone Number [facility] [address] [place] [phone] * (ABNORMAL) POCT HGB A1C (07/06/2024 [...] Most Recently Relevant to Health Maintenance Insurance [facility] MEDICARE REPLACEMENT Care Teams Foxing Painter Relationship Specialty Start Date End Date Rolanda Thakur MD [address] [place] [phone] PCP - General Internal Medicine 09/19/22
--- OUTSIDE RECORDS SUMMARY | 2024-11-09 09:41 | XMS_ITS | Encounter Summary ---
Author Organization [employer] Address [address] [place] [phone] Care Team Providers Care Ready To Wear Department Manager Name Role Phone Rolanda Thakur MD Primary Care Provider Encounter Details Date Type Department Care Team (Latest Contact Info) Description 08/17/2021 Abstract [facility] CONVERSIONS Dental, Provider, DDS Social History Tobacco [...] Description 11/14/2024 4:00 PM EDT Office Visit [facility] [address] [place] [address] Rolanda Thakur MD [address] [place] [address] documented as of this encounter Visit Diagnoses Not on filedocumented in this encounter Care Teams Ready To Wear Department Manager Relationship Specialty Start Date End Date Rolanda Thakur MD [address] [place] [address] PCP - General Internal Medicine 09/19/22 documented as of this encounter
--- OUTSIDE RECORDS SUMMARY | 2024-11-09 09:41 | XMS_ITS | Encounter Summary ---
Author Organization [employer] Address [address] [place] [address] Care Team Providers Care Heat Treat Furnace Operator Name Role Phone Rolanda Thakur MD Primary Care Provider [phone]- [phone] Reason for Referral * Consultation (Routine) - Closed Specialty Diagnoses / Procedures Referred By Freddy meadows Referred To Contact Behavioral Health Diagnoses Generalized anxiety disorder with panic attacks Financial difficulties Rolanda Thakur MD [address] [place] [address] Phone: tel: fax: Referral ID Status Reason Start Date Expiration Date V isits Requested Visits Authorized [id number] Closed Specialty Services Required 10/11/2024 10/11/2025 1 0 * Consultation (Routine) - Closed Specialty Diagnoses / Procedures Referred By Freddy meadows Referred To Contact Diagnoses Financial Rolanda Marin MD [address] [place] [address] Phone: tel: fax: [address] [address] Phone: tel: fax: Referral ID Status Reason Start Date Expiration Date V isits Requested Visits Authorized [id number] Closed Specialty Services Required 10/11/2024 10/11/2025 1 1 * Consultation (Routine) - Authorized Specialty Diagnoses / Procedures Referred By Contac t Referred To Contact Pharmacy Diagnoses Type 2 diabetes mellitus without complication, without long-term current use of insulin (CMS/HCC) Rolanda Thakur MD [address] [place] [address] Phone: tel: fax: Referral ID Status Reason Start Date Expiration Date Visits Requested Visits Authorized [id number] Authorized Consult and Treat 10/11/2024 10/11/2025 6 6 Reason for Visit * Reason Comments Diabetes Encounter Details Date Type Department Care Team ([facility] Contact Info) Description 10/11/2024 3:45 PM EST Office Visit [facility] MED & PEDS [address] [place] [address] Rolanda Thakur MD [address] [place] [address] Type 2 diabetes mellitus without complication, without [...] from different offices including her chiropractor, her Gear Hobber Set Up Operator, her Shipping Packer etc. Admits having less panic attacks otherwise. [...] blood sugar. 50 tablet 12 glucose blood ([employer] Ultra) test strip USE DIRECTED TO TEST BLOOD GLUCOSE TWICE DAILY 100 strip 11 losartan (Cozaar) 100 MG tablet TAKE 1 TABLET(100 MG) BY MOUTH IN THE MORNING 90 tablet 1 metFORMIN (Glucophage) 500 MG tablet TAKE 1 TABLET BY MOUTH TWICE DAILY WITH MEALS 180 tablet 0 Multiple Vitamin (Daily-Saadia Multivitamin) tablet TAKE 1 TABLET BY MOUTH EVERY DAY 30 tablet 11 taxkuaek-wiuaykgvyh-suzkrfxrs (Neosporin) 5-400-5000 ointment Apply topically 4 times daily. 3.5 g 0 [employer] Lancets 33G [facility] Use to check blood sugar four times daily Synthroid 125 MCG tablet TAKE 1 TABLET BY MOUTH ON MONDAY, MONDAY, AND MONDAY AND ALTERNATE [id number] MCG ON MONDAY, MONDAY, MONDAY, AND MONDAY 36 tablet 3 Synthroid 125 MCG tablet TAKE 1 TABLET BY MOUTH ON MONDAY, MONDAY, AND MONDAY AND ALTERNATE [id number] MCG ON MONDAY, MONDAY, MONDAY, AND MONDAY [...] complication, without long-term current use of insulin ([facility]) Comments: the CGM was prescribed. Patient will need to be educated on how to use the device. Orders: - POCT Glucose - Continuous Glucose Linker Up (Dexcom G7 Linker Up) device; 1 each Once per day for [...] Visit [facility] MED & PEDS [address] [place], [place] [phone] Rolanda Thakur MD [address] [place] [address] Scheduled Referrals Name Type Priority Associated Diagnoses Orde r Schedule Referral to Pharmacy CDTM Outpatient Referral Routine Type 2 diabetes mellitus without complication, without long-term current use of insulin ([facility]) Ordered: 10/11/2024 Referral to Care Management Outpatient [...] complication, without long-term current use of insulin ([facility]) documented in this encounter Results * POCT Glucose (10/11/2024 4:11 PM EST) Glucose Blood, POC 185 60 - 200 mg/dL QC Media Lot # [id number] Lot# Expiration Date [id number] Comment:random Blood Capillary blood specimen / Unknown 10/11/2024 4:11 PM EST Rolanda Thakur MD POINT OF CARE TEST ENTER/ED IT ORDERABLES Final Result documented in this encounter Visit Diagnoses Diagnosis Type 2 diabetes mellitus without complication, without long-term current use of insulin ([facility])- Primary Generalized anxiety disorder with panic attacks Financial difficulties Inadequate material resources Meralgia paresthetica of right side documented in this encounter Additional Health Concerns Assessment Noted Time PHQ-9 Depression Total Score: 2 05/13/20 24 9:24 AM EDT documented as of this encounter Care Teams Heat Treat Furnace Operator Relationship Specialty Start Date End Date Rolanda Thakur MD [address] [place] [address] PCP - General Internal Medicine 09/19/22 documented as of this encounter
--- OUTSIDE RECORDS SUMMARY | 2024-11-09 09:41 | XMS_ITS | Encounter Summary ---
Author Organization [employer] Address [address] [facility] 7 [place] [address] Care Team Providers Care Veneer Gluer Name Role Phone Rolanda Thakur MD Primary Care Provider [phone]- [phone] Reason for Visit * Reason Onset Date Comments FYI 10/11/2024 Encounter Details Date Type Department Care Team (Late st Contact Info) Description 10/11/2024 Telephone [facility] MEDICINE [address] [place] [address] Rolanda Thakur MD [address] [place] [address] FYI Social History Tobacco Use Types Packs/Day [...] Description 11/14/2024 4:00 PM EDT Office Visit [facility] CH[facility] MED & PEDS [address] [place] [address] Rolanda Thakur MD [address] [place] [address] documented as of this encounter Visit Diagnoses Not on filedocumented in this encounter Additional Health Concerns Assessment Noted Time PHQ-9 Depression Total Score: 2 05/13/20 24 9:24 AM EDT documented as of this encounter Care Teams Veneer Gluer Relationship Specialty Start Date End Date Rolanda Thakur MD [address] [place] [address] PCP - General Internal Medicine 09/19/22 documented as of this encounter
[2024-11-09 12:03] LABS: MANUAL DIFF FLAG NO
[2024-11-09 12:10] LABS: Basophils Absolute Auto 0.1 X10*3/uL (0.0-0.2); Basophils Percent Auto 1.4 % (0-2); Eosinophils Absolute Auto 0.3 X10*3/uL (0.0-0.4); Eosinophils Percent Auto 3.5 % (0-4); Hemoglobin 12.5 g/dl (12.0-16.0); Imm Gran Abs Auto 0.02 X10*3/uL (0.00-0.03); Imm Gran Pct Auto 0.3 % (0.0-0.4); Lymphocytes Absolute Auto 1.4 X10*3/uL (1.2-4.9); Lymphocytes Percent Auto 19.1 % (20-40); Mean Corpuscular HGB Conc 34.7 g/dl (31.0-35.0); Mean Corpuscular Hemoglobin 30.6 pg (27.0-33.0); Mean Corpuscular Volume 88.2 fL (80.0-98.0); Mean Platelet Volume 9.3 fL (9.4-12.3); Monocytes Absolute Auto 0.5 X10*3/uL (0.1-1.2); Monocytes Percent Auto 6.9 % (2-11); Neutrophils Absolute Auto 5.1 x10*3/uL (2.0-8.3); Neutrophils Percent Auto 68.8 % (45-73); Platelet Count 263 X10*3/uL (160-400); Red Blood Count 4.08 X10*6/uL (4.20-5.50); Red Cell Distribution Width 13.1 % (11.0-16.0); White Blood Count 7.4 X10*3/uL (4.8-10.8)
[2024-11-09 12:32] LABS: Anion Gap 12 (12-20); Blood Urea Nitrogen 28 mg/dL (9-16); Calcium 9.8 mg/dL (8.4-10.2); Carbon Dioxide 21 mmol/L (22-29); Chloride 105 mmol/L (96-108); Estimated Glomerular Filt Rate 54; Glucose Random 218 mg/dL (60-115); Potassium 4.6 mmol/L (3.3-5.1); Sodium 133 mmol/L (135-145)
== END 2024-11-09 09:38 | disposition home or self-care (01) ==
LOC: HO.HMGCLDS 09:37
PROVIDERS: PCP Internal Medicine; Visit Provider Family Medicine
DX: Z00.00 Encounter for general adult medical examination without abnormal findings (principal); B34.9 Viral infection, unspecified
CPT/HCPCS: 0241U; 36415; 80048; 85025

== ENCOUNTER 2024-11-23 08:53 | Outpatient (REF) | payer MEDICARE, SELFPAY ==
--- OUTSIDE RECORDS SUMMARY | 2024-11-23 08:56 | XMS_ITS | Encounter Summary ---
Author Organization [employer] Address [address] [facility] 7 [place] [address] Care Team Providers Care Ordnance Corps Officer Name Role Phone Rolanda Thakur MD Primary Care Provider [phone]- [phone] Encounter Details Date Type Department Care Team ([facility] st Contact Info) Description 11/22/2024 Telephone [facility] MED[facility]INE [address] [place] [address] Rolanda Thakur MD [address] [place] [address] Social History Tobacco Use Types Packs/Day Years [...] encounter Miscellaneous Notes * Telephone Encounter - Be Ventura - 11/22/2024 8:02 AM EDT TC from pt stating that she is feeling off and is requesting to do a Whole Chem Pant, Pt s feeling off and wants to know what is going on. Contact pt at [phone] from 11:30 to 12:30 due to her being in school she can't answer any timeother than that. documented in this encounter Plan of Treatment Not on file documented as of this encounter Visit Diagnoses Not on filedocumented in this encounter Additional Health Concerns Assessment Noted Time PHQ-9 Depression Total Score: 2 05/13/20 24 9:24 AM EDT documented as of this encounter Care Teams Ordnance Corps Officer Relationship Specialty Start Date End Date Rolanda Thakur MD [address] [place] [address] PCP - General Internal Medicine 09/19/22 documented as of this encounter
--- OUTSIDE RECORDS SUMMARY | 2024-11-23 08:56 | XMS_ITS | Encounter Summary ---
Author Organization [employer] Address [address] [place] [address] Care Team Providers Care Stockroom Associate Name Role Phone Rolanda Thakur MD Primary Care Provider [phone]- [phone] Reason for Visit * Reason Onset Date Comments Call Back Request 10/31/2024 Encounter Details Date Type Department Care Team ([facility] st Contact Info) Description 10/31/2024 Telephone [facility] MEDICINE [address] [place] [address] Rolanda Thakur MD [address] [place] [address] Call Back Request Social History Tobacco Use [...] to DR. Castañeda. Please contact pt at [phone]. documented in this encounter Plan of Treatment Not on file documented as of this encounter Visit Diagnoses Not on filedocumented in this encounter Additional Health Concerns Assessment Noted Time PHQ-9 Depression Total Score: 2 05/13/20 24 9:24 AM EDT documented as of this encounter Care Teams Stockroom Associate Relationship Specialty Start Date End Date Rolanda Thakur MD [address] [place] [address] PCP - General Internal Medicine 09/19/22 documented as of this encounter
--- OUTSIDE RECORDS SUMMARY | 2024-11-23 08:56 | XMS_ITS | Encounter Summary ---
Author Organization [employer] Address [address] [place] [address] Care Team Providers Care Real Estate Acquisition Analyst Name Role Phone Rolanda Thakur MD Primary Care Provider [phone]- [phone] Reason for Visit * Reason Onset Date Comments FYI 11/19/2024 Encounter Details Date Type Department Care Team (Late st Contact Info) Description 11/19/2024 Telephone [facility] MEDICINE [address] [place] [address] Rolanda Thakur MD [address] [place] [address] FYI Social History Tobacco Use Types Packs/Day [...] encounter Miscellaneous Notes * Telephone Encounter - Rhys Pérez - 11/19/2024 4:24 PM EDT Tc from pt wanted to report that glipiZIDE XL (Glucotrol XL) 10 MG 24 hr tablet is very helpful keeping her sugar levels lower. Average being 139 documented in this encounter Plan of Treatment Not on file documented as of this encounter Visit Diagnoses Not on filedocumented in this encounter Additional Health Concerns Assessment Noted Time PHQ-9 Depression Total Score: 2 05/13/20 24 9:24 AM EDT documented as of this encounter Care Teams Real Estate Acquisition Analyst Relationship Specialty Start Date End Date Rolanda Thakur MD [address] [place] [address] PCP - General Internal Medicine 09/19/22 documented as of this encounter
--- OUTSIDE RECORDS SUMMARY | 2024-11-23 08:56 | XMS_ITS | Encounter Summary ---
Author Organization [employer] Address [address] [facility] 7 [place] [address] Care Team Providers Care Team Primary Care Physician Name Role Phone Rolanda Thakur MD Primary Care Provider [phone]- [phone] Reason for Visit * Reason Onset Date Comments Nurse Triage 04/04/2024 Encounter Details Date Type Department Care Team (Late st Contact Info) Description 04/04/2024 Telephone [facility] MEDICINE [address] [place] [address] Rolanda Thakur MD [address] [place] [address] Nurse Triage Social History Tobacco Use Types [...] pt. She states that she went to [facility] ED for Anxiety panic attacks on 03/30/24- [...] got treated horribly by the staff at [facility] and she will never go there again. [...] care coordinators so that they can get [facility] ED notes from 03/30/24 Ed visit into pt. Chart and any labs, EKG's etc.. into pt. Chart for visit on 04/05/24 at 315pm. Protocol Used: Anxiety and Panic Attack (Adult) Protocol-Based Disposition: Go to ED/[facility] Now (or to Office with PCP Approval)- [...] on filedocumented in this encounter Care Teams Team Primary Care Physician Relationship Specialty Start Date End Date Rolanda Thakur MD [address] [place] [address] PCP - General Internal Medicine 09/19/22 documented as of this encounter
--- OUTSIDE RECORDS SUMMARY | 2024-11-23 08:56 | XMS_ITS | Encounter Summary ---
Author Organization [employer] Address [address] [place] [address] Care Team Providers Care Crester Name Role Phone Rolanda Thakur MD Primary Care Provider [phone]- [phone] Reason for Visit * Reason Onset Date Comments Med Refill 04/04/2024 Encounter Details Date Type Department Care Team (Late st Contact Info) Description 04/04/2024 Telephone [facility] MEDICINE [address] [place] [address] Rolanda Thakur MD [address] [place] [address] Med Refill Social History Tobacco Use Types [...] 5 mg tablets To be sent to: [facility] documented in this encounter Plan of Treatment Not on file documented as of this encounter Visit Diagnoses Diagnosis Anxiety- Primary Anxiety state, unspecified documented in this encounter Care Teams Crester Relationship Specialty Start Date End Date Rolanda Thakur MD [address] [place] [address] PCP - General Internal Medicine 09/19/22 documented as of this encounter
--- OUTSIDE RECORDS SUMMARY | 2024-11-23 08:56 | XMS_ITS | Clinical Summary ---
Author Organization [address] [facility] Address [address] [place] [address] Phone Care Team Providers Care Continuous Process Coffee Roaster Name Role Phone Rolanda Thakur MD Primary Care Provider +1 -[phone] Allergies Active Allergy Reactions Criticality Noted Date [...] aware that this will likely be an hqy-lb-[id number] cost and feels as though she can afford it. I will review results and determine need for future follow-up. In the meantime she would like to hold off on statin therapy which I think is totally reasonable. Orders: ECG 12 lead Pure hypercholesterolemia 07/08/2024 Assessment & Plan (07/08/2024 4:42 PM EST): See plan above. Encounters Date Type Department Care Team Description 09/12/2024 Telephone [facility] [address] [place] [phone] Nikki Rawls MD Hypertension 09/07/2024 9:51 AM EST - 09/07/2024 11:59 PM [facility] Hospital Encounter [facility] Xray [address] [place] [address] Pain Discharge Disposition: Home or Self Care 09/07/2024 9:45 AM EST - 09/07/2024 11:59 PM [facility] Hospital Encounter [facility] Xray [address] [place] [address] Pain Discharge Disposition: Home or Self Care from Last 3 Months Family History Medical [...] EDT Appointment [facility] [address] [phone] 02/13/2025 10:50 AM EDT Office Visit [facility] [address] [phone] Nikki Rawls MD [address] [place] [address] Health Maintenance Due Date Last Done Comments [...] , 06/27/2021, Additional history exists RSV Immunization Adult Patients Completed 05/13/2024 Hepatitis C Screening Completed 07/17/2024 [...] VIEWS Routine 09/07/2024 10:06 AM EST Pain [facility] SCREENING DIGITAL Routine 10/23/2023 9:44 AM EST Encounter for screening mammogram for malignant neoplasm of breast [facility] DEXA AXIAL SKELETON Routine 04/12/2023 7:46 [...] Signed Date: 09/09/2024 07:17 ET Workstation ID: [id number] Transcribed By: Self Edit Transcribed Date: 09/09/2024 [...] Signed Date: 09/09/2024 07:17 ET Workstation ID: [id number] Transcribed By: Self Edit Transcribed Date: 09/09/2024 [...] Signed Date: 09/09/2024 07:17 ET Workstation ID: [id number] Transcribed By: Self Edit Transcribed Date: 09/09/2024 [...] Signed Date: 09/09/2024 07:17 ET Workstation ID: [id number] Transcribed By: Self Edit Transcribed Date: 09/09/2024 07:11 ET us Jamel Gilbert DC IMG XR PROCEDURES Final Result * [facility] SCREENING DIGITAL (10/23/2023 9:44 AM EST) Anatomical Region Laterality Modality Mammography 10/19/2023 2:21 PM EST Narrative 10/23/2023 9:44 AM EST [facility] Diagnostic Imaging Department [address] [place] [address] [id number] Patient: ??ANGELY PINEDA ?/Age/Sex: 1950 - Unit#: ??[id number] ? Location/Status: ??SPDIMAM/REG CLI ? Mnemonic/Ordering Site: ??DIGSC/SPMAIN Ordering Physician: ??MAREN UREÑA MD [facility] Screening Digital - 10/21/23 - 0810 Report Status:Signed EXAM: [facility] Screening Digital EXAM DATE AND TIME: 10/21/2023 8:11 AM HISTORY: ??Screening. COMPARISON: ??10/12/22, 06/08/21, 03/04/20 TECHNIQUE: Bilateral digital breast tomosynthesis was performed in the CC and MLO projections. Computer aided detection with [employer] 3D 3.1 was employed. TISSUE DENSITY: a. [...] Note Maria Guadalupe Gotti MD - 04/08/2024 [facility] Diagnostic Imaging Department [address] [place] [address] Patient: ADANGELYIRIS LIVINGSTON /Age/Sex: 1950 73 - F Unit#: [id number] Location/Status: [facility] CLI Mnemonic/Ordering Site: [facility] Ordering Physician: MAREN UREÑA MD [facility] Screening Digital - 10/21/23 - 0810 Report Status:Signed EXAM: [facility] Screening Digital EXAM DATE AND TIME: 10/21/2023 8:11 AM HISTORY: Screening. COMPARISON: 10/12/22, 06/08/21, 03/04/20 TECHNIQUE: Bilateral digital breast tomosynthesis was performed in the CCand MLO projections. Computer aided detection with [employer] 3D 3.1was employed. TISSUE DENSITY: a. The [...] Dic Date/Time: 10/23/23943 Sign date/Time: 10/23/23943 Maren Ureña MD IMG BI PROCEDURES Final Result * [facility] DEXA AXIAL SKELETON (04/12/2023 7:46 AM EDT) Anatomical Region Laterality Modality Mammography 04/11/2023 3:03 PM EDT Narrative 04/12/2023 7:46 AM EDT [facility] Diagnostic Imaging Department [address] [place] [address] Patient: ??ANGELY PINEDA ?/Age/Sex: 1950 - 72 - F Unit#: ??[id number] ? Location/Status: ??SPDIMAM/REG CLI ? Mnemonic/Ordering Site: ??MAMDEXAAX/SPMAM Ordering Physician: ??MAREN UREÑA MD [facility] Dexa Axial Skeleton - 04/11/231532 Report Status:Signed [...] probability of hip fracture of 2.2%. Code 11141 Dictating Physician: ??GWENDOLYN BAHENA MD Electronically Signed by: ??GWENDOLYN BAHENA MD Dic Date/Time: ??04/12/23 0745 Sign date/Time: ??04/12/23 0746 Procedure Note Gwendolyn Bahena MD - 09/26/2023 [facility] Diagnostic Imaging Department [address] [place] [address] Patient: ANGELY PINEDA /Age/Sex: 1950 - 72 - F Unit#: [id number] [facility] Ordering Physician: MAREN UREÑA MD [facility] Dexa Axial Skeleton - 04/11/231532 Report Status:Signed HISTORY: The patient is a [...] density of the femurs bilaterally is 0.874 gm/dc6snfqp is 87% of that of young normals [...] probability of hip fracture of 2.2%. Code 45991 Dictating Physician: GWENDOLYN BAHENA MD Electronically Signed by: GWENDOLYN BAHENA MD Dic Date/Time: 04/12/2345 Sign date/Time: 04/12/2346 Maren Ureña MD IMG BI PROCEDURES Final Result from Last 3 Months or Most Recently Relevant to Health Maintenance Insurance [employer] MEDICARE Care Teams Continuous Process Coffee Roaster Relationship Specialty Start Date End Date Rolanda Thakur MD [address] [place], [place] PCP - General 11/03/23
--- OUTSIDE RECORDS SUMMARY | 2024-11-23 08:56 | XMS_ITS | Encounter Summary ---
Author Organization [employer] Address [address] [place] [address] [place] [address] Care Team Providers Care Net Ui Developer Name Role Phone Rolanda Thakur MD Primary Care Provider [phone] Encounter Details Date Type Department Care Team ([facility] st Contact Info) Description 05/01/2023 Orders Only [facility] MED & PEDS [address] [place] [address] Rolanda Thakur MD [address] [place] [address] Diabetic polyneuropathy associated with type 2 diabetes [...] associated with type 2 diabetes mellitus ([facility]/HCC) TSH W/REFLEX TO FT4 Routine 05/08/2023 1 1:04 AM EDT Diabetic polyneuropathy associated with type 2 diabetes mellitus ([facility]/HCC) CBC WITH AUTO DIFFERENTIAL Routine 05/08/2023 11:04 AM EDT Diabetic polyneuropathy associated with type 2 diabetes mellitus ([facility]/HCC) HEMOGLOBIN A1C Routine 05/08/2023 11:04 AM EDT Diabetic polyneuropathy associated with type 2 diabetes mellitus ([facility]/HCC) HEPATIC FUNCTION PANEL Routine 05/08/2023 11:04 AM EDT Diabetic polyneuropathy associated with type 2 diabetes mellitus ([facility]/HCC) LIPID PANEL, STANDARD Routine 05/08/2023 11:04 AM EDT Diabetic polyneuropathy associated with type 2 diabetes mellitus ([facility]/HCC) BASIC METABOLIC PANEL Routine 05/08/2023 11:04 AM EDT Diabetic polyneuropathy associated with type 2 diabetes mellitus ([facility]/HCC) documented in this encounter Results * (ABNORMAL) Hemoglobin A1c (05/08/2023 11:04 AM EDT) Hemoglobin A1c 6.1(H) <6.0 % [facility] Comment:Hemoglobin A1C Refer ence Range Adults: 4.8 - 6.0 % Non diabetic: < 6.0 % Goal: < 7.0 %Additional Action Suggested: > 8.0 %Note: Hemoglobin A1c results are invalid for patients with abnormal amounts of HbF. Blood transfusions may impact the HbA1c concentration in the patient sample. Estimated Average Glucose 128 mg/dL [facility] Comment:eAG = Estimated ave rage glucose which is %A1C expressed asaverage glucose, using the formula of the E2K-GyxseptIwecydx Glucose study (ADAG), Diabetes Care, Vol.31,#8,Mar. 2007 Blood Venous blood specimen / Unknown 05/08/2023 11:04 AM EDT 05/08/2023 1:46 PM EDT us Rolanda Thakur MD LAB BLOOD ORDERABLES Final Result Performing Organization Address City/[facility]/ZIP Co de Phone Number [facility] [address] [place] [phone] * Vitamin D, 25-Hydroxy, Total, Immunoassay (05/08/2023 11:04 AM EDT) Vitamin D 25-OH Total 84.6 >30 ng/mL [facility] Comment:Health Based Referen ce Values*< 20 ng/mL [id number] ng/mL Insufficient> 30 ng/mL Sufficient*Arabella MCALLISTER. N [...] BLOOD ORDERABLES Final Result Performing Organization Address [facility] Co de Phone Number [facility] [address] [place] [phone] * Hepatic Function Panel (05/08/2023 11:04 AM EDT) Bilirubin, Total 0.5 0.0 - 1.0 mg/dL [facility] Bilirubin, Direct 0.2 0.0 - 0.5 mg/dL [facility] Aspartate Amino Transferase 22 5 - 31 U/L [facility] Alanine Aminotransferase 18 0 - 31 U/L [facility] Total Protein 7.1 6.5 - 8.0 g/dL [facility] Albumin Level 4.4 3.5 - 5.0 g/dL [facility] Alkaline Phosphatase 70 39 - 117 U/L [facility] Blood Venous blood specimen / Unknown 05/08/2023 11:04 AM EDT 05/08/2023 1:47 PM EDT us Rolanda Thakur MD LAB BLOOD ORDERABLES Final Result [facility] [address] [place] [phone] [phone] * (ABNORMAL) Lipid Panel, Standard (05/08/2023 11:04 AM EDT) Triglycerides 110 <150 mg/dL [facility] Comment:Desirable Triglyceri de: less than 150 mg/dLBorderline High Triglyceride 150-199 mg/dLHigh Triglyceride: 200-499 mg/dLVery High Triglyceride: greater than or equal to 5OO mg/dL Cholesterol 198 <200 mg/dL [facility] Comment:Desirable Cholestero l: less than 200 mg/dLBorderline High Cholesterol: 200-239 mg/dLHigh Cholesterol: greater than 239 mg/dL LDL Cholesterol Calculated 121(H) <100 mg/dL [facility] Comment:Desirable LDL: less than 100 mg/dLNear Optimal/Above Optimal LDL: 110- 129 mg/dLBorderline High LDL: 130-159 mg/dLHigh LDL: 160-189 mg/dLVery High LDL: greater than or equal to 190 mg/dL HDL Cholesterol 55 >40 mg/dL [facility] Comment:Desirable HDL: great er than 40 mg/dL Note: This HDL assay may give artificially low results in patients with liver disease. Blood Venous blood specimen / Unknown 05/08/2023 11:04 AM EDT 05/08/2023 1:47 PM EDT us Rolanda Thakur MD LAB BLOOD ORDERABLES Final Result Performing Organization Address [facility]/ZIP Co de Phone Number [facility] [address] [place] [phone] * TSH W/Reflex to FT4 (05/08/2023 11:04 AM EDT) TSH reflex Free T4 0.53 0.32 - 4.0 uIU/mL [facility] Blood 05/08/2023 11:0 4 AM EDT 05/08/2023 1:47 PM EDT us Rolanda Thakur MD LAB BLOOD ORDERABLES Final Result Performing Organization Address [facility]/ZIP Co de Phone Number [facility] [address] [place] [phone] * (ABNORMAL) Basic Metabolic Panel (05/08/2023 11:04 AM EDT) Sodium 137 135 - 145 mmol/L [facility] Potassium 4.4 3.3 - 5.1 mmol/L [facility] Chloride 108 96 - 108 mmol/L [facility] Carbon Dioxide 24 22 - 29 mmol/L [facility] Anion Gap 9(L) 12 - 20 [facility] Urea Nitrogen (BUN) 14 9 - 16 mg/dL [facility] Creatinine, Serum 1.03 0.5 - 1.4 mg/dL [facility] Estimated Glomerular Filt Rate 53 [facility] Comment:NOTE: For -Am erican individuals, multiply the result by 1.210.Chronic Kidney Disease: Estimated GFR < 60 mL/min/1.09o2Qwudho Kidney Disease: Estimated GFR < 15 mL/min/1.73m2 Glucose 208(H) 60 - 115 mg/dL [facility] Calcium 10.1 8.4 - 10.2 mg/dL [facility] Blood Venous blood specimen / Unknown 05/08/2023 11:04 AM EDT 05/08/2023 1:47 PM EDT us Rolanda Thakur MD LAB BLOOD ORDERABLES Final Result [facility] [address] [place] [phone] * (ABNORMAL) CBC auto differential (05/08/2023 11:04 AM EDT) White Blood Count 8.6 4.8 - 10.8 X10*3/uL [facility] Red Blood Count 4.27 4.20 - 5.50 X10*6/uL [facility] Hemoglobin 12.6 12.0 - 16.0 g/dl [facility] Hematocrit 37.9 37.0 - 47.0 % [facility] Mean Corpuscular Volume 88.8 80.0 - 98.0 fL [facility] Mean Corpuscular Hemoglobin 29.5 27.0 - 33.0 pg [facility] Mean Corpuscular HGB Conc 33.2 31.0 - 35.0 g/dl [facility] Red Cell Distribution Width 13.0 11.0 - 16.0 % [facility] Platelet Count 266 160 - 400 X10*3/uL [facility] Mean Platelet Volume 9.5 9.4 - 12.3 fL [facility] Neutrophils Percent Auto 50.3 45 - 73 % [facility] Imm Gran Pct Auto 0.3 0.0 - 0.4 % [facility] Lymphocytes Percent Auto 33.4 20 - 40 % [facility] Monocytes Percent Auto 7.0 2 - 11 % [facility] Eosinophils Percent Auto 7.8(H) 0 - 4 % [facility] Basophils Percent Auto 1.2 0 - 2 % [facility] NRBC Pct Auto 0.0 0.0 - 0.2 /100WBC [facility] Neutrophils Absolute Auto 4.3 2.0 - 8.3 x10*3/uL [facility] Imm Gran Abs Auto 0.03 0.00 - 0.03 X10*3/uL [facility] Lymphocytes Absolute Auto 2.9 1.2 - 4.9 X10*3/uL [facility] Monocytes Absolute Auto 0.6 0.1 - 1.2 X10*3/uL [facility] Eosinophils Absolute Auto 0.7(H) 0.0 - 0.4 X10*3/uL [facility] Basophils Absolute Auto 0.1 0.0 - 0.2 X10*3/uL [facility] NRBC Abs Auto 0.000 0.0 - 0.012 X10*3/uL [facility] Blood Venous blood specimen / Unknown 05/08/2023 11:04 AM EDT 05/08/2023 1:46 PM EDT Rolanda Thakur MD LAB BLOOD ORDERABLES Final Result [facility] [address] [place] [phone] documented in this encounter Visit Diagnoses Diagnosis Diabetic polyneuropathy associated with type 2 diabetes mellitus (CMS/HCC)- Primary documented in this encounter Care Teams Net Ui Developer Relationship Specialty Start Date End Date Rolanda Thakur MD [address] [place] [phone] PCP - General Internal Medicine 09/19/22 documented as of this encounter
--- OUTSIDE RECORDS SUMMARY | 2024-11-23 08:56 | XMS_ITS | Encounter Summary ---
Author Organization [employer] Address [address] [place] [address] Care Team Providers Care Bag Making Machine Operator Name Role Phone Rolanda Thakur MD Primary Care Provider [phone]- [phone] Reason for Visit * Reason Onset Date Comments Nurse Triage 08/05/2024 Encounter Details Date Type Department Care Team ([facility] st Contact Info) Description 08/05/2024 Telephone [facility] MEDICINE [address] [place] [address] Rolanda Thakur MD [address] [place] [address] Nurse Triage Social History Tobacco Use Types [...] 1145am. Pt is advised to come to [facility] today which is open till 8pm and also open 830am -800pm tomorrow. Pt agrees with this disposition. Pt will try to come to [facility] todaybut, if unable will come [...] documented as of this encounter Care Teams Bag Making Machine Operator Relationship Specialty Start Date End Date Rolanda Thakur MD [address] [place] [phone] PCP - General Internal Medicine 09/19/22 documented as of this encounter
--- OUTSIDE RECORDS SUMMARY | 2024-11-23 08:56 | XMS_ITS | Encounter Summary ---
Author Organization [employer] Address [address] [place] [address] [place] [address] Care Team Providers Care Oyster Shipper Name Role Phone Rolanda Thakur MD Primary Care Provider [phone]- [phone] Reason for Visit * Reason Onset Date Comments Referral 05/18/2023 Encounter Details Date Type Department Care Team ([facility] st Contact Info) Description 05/18/2023 Telephone [facility] MED & PEDS [address] [place] [address] Rolanda Thakur MD [address] [place] [address] Referral Social History Tobacco Use Types Packs/Day [...] used to see Dr. Chad Dempsey from [facility] butnow the office doesn't take her insurance. [...] advise. Also sent you her response from [employer]. Thanks. * Telephone Encounter - Annabella Peña [...] to Specialty: ([facility]) Dr nolasco Date&Time: N/a Loan Interviewer: n/a Please call pt to clarify documented in this encounter Plan of Treatment Not on file documented as of this encounter Visit Diagnoses Not on filedocumented in this encounter Care Teams Oyster Shipper Relationship Specialty Start Date End Date Rolanda Thakur MD [address] [place] [phone] PCP - General Internal Medicine 09/19/22 documented as of this encounter
--- OUTSIDE RECORDS SUMMARY | 2024-11-23 08:56 | XMS_ITS | Encounter Summary ---
Author Organization [employer] Address [address] [place] [address] 7 [place] [address] Care Team Providers Care Loading Unit Operator Crimping Name Role Phone Rolanda Thakur MD Primary Care Provider [phone]- [phone] Reason for Visit * Reason Comments Med Refill Encounter Details Date Type Department Care Team (Late st Contact Info) Description 12/28/2022 Refill [facility] CHC MED & PEDS [address] [place] [address] Maren Hough MD [address] [place] [address] Type 2 diabetes mellitus without complication, without long-term current use of insulin ([facility]); Anxiety Social History Tobacco Use Types [...] complication, without long-term current use of insulin ([facility]) Anxiety Anxiety state, unspecified documented in this encounter Care Teams Loading Unit Operator Crimping Relationship Specialty Start Date End Date Rolanda Thakur MD [address] [place] [address] PCP - General Internal Medicine 09/19/22 documented as of this encounter
--- OUTSIDE RECORDS SUMMARY | 2024-11-23 08:56 | XMS_ITS | Encounter Summary ---
Author Organization [employer] Address [address] [place] [address] 7 [place] [address] Care Team Providers Care Reexaminer Name Role Phone Rolanda Thakur MD Primary Care Provider [phone]- [phone] Encounter Details Date Type Department Care Team (Late st Contact Info) Description 06/21/2023 Abstract [facility] MEDICINE [address] [place] [address] Sherrie Caballero Social History Tobacco Use Types [...] on filedocumented in this encounter Care Teams Reexaminer Relationship Specialty Start Date End Date Rolanda Thakur MD [address] [place] [phone] PCP - General Internal Medicine 09/19/22 documented as of this encounter
--- OUTSIDE RECORDS SUMMARY | 2024-11-23 08:56 | XMS_ITS | Encounter Summary ---
Author Organization [employer] Address [address] [place] [address] Care Team Providers Care Field Checker Name Role Phone Rolanda Thakur MD Primary Care Provider [phone]- [phone] Reason for Visit * Reason Onset Date Comments Created In Error 04/29/2024 Encounter Details Date Type Department Care Team (Late st Contact Info) Description 04/29/2024 Telephone [facility] MEDICINE [address] [place], [place] [phone] Rolanda Thakur MD [address] [place], [place] [phone] Created In Error Social History Tobacco Use [...] on filedocumented in this encounter Care Teams Field Checker Relationship Specialty Start Date End Date Rolanda Thakur MD [address] [place] [address] PCP - General Internal Medicine 09/19/22 documented as of this encounter
--- OUTSIDE RECORDS SUMMARY | 2024-11-23 08:56 | XMS_ITS | Encounter Summary ---
Author Organization [email or web address] Address [address] [place] [address] [place] [address] Care Team Providers Care Documentation Specialist Name Role Phone Rolanda Thakur MD Primary Care Provider [phone]- [phone] Reason for Visit * Reason Comments Med Refill Encounter Details Date Type Department Care Team ([facility] st Contact Info) Description 01/05/2023 Refill [facility] CHC MED & PEDS [address] [place] [address] Karoline Castañeda MD [address] [place] [address] Social History Tobacco Use Types Packs/Day Years [...] on filedocumented in this encounter Care Teams Documentation Specialist Relationship Specialty Start Date End Date Rolanda Thakur MD [address] [place] [address] PCP - General Internal Medicine 09/19/22 documented as of this encounter
--- OUTSIDE RECORDS SUMMARY | 2024-11-23 08:56 | XMS_ITS | Encounter Summary ---
Author Organization [employer] Address [address] [place] [address] [place] [address] Care Team Providers Care Budget Engineer Name Role Phone Rolanda Thakur MD Primary Care Provider [phone]- [phone] Reason for Visit * Reason Onset Date Comments Referral 07/31/2024 Encounter Details Date Type Department Care Team ([facility] Contact Info) Description 07/31/2024 Telephone [facility] CHC MED & PEDS [address] [place] [address] Rolanda Thakur MD [address] [place] [address] Referral Social History Tobacco Use Types Packs/Day [...] Hirsch. Referaal was [facility] 07/13/24 [facility] documented in this encounter Plan of Treatment Not on file documented as of this encounter Visit Diagnoses Not on filedocumented in this encounter Additional Health Concerns Assessment Noted Time PHQ-9 Depression Total Score: 2 05/13/20 24 9:24 AM EDT documented as of this encounter Care Teams Budget Engineer Relationship Specialty Start Date End Date Rolanda Thakur MD [address] [place] [phone] PCP - General Internal Medicine 09/19/22 documented as of this encounter
--- OUTSIDE RECORDS SUMMARY | 2024-11-23 08:56 | XMS_ITS | Encounter Summary ---
Author Organization [employer] Address [address] [place] [address] 7 [place] [address] Care Team Providers Care Registration Representative Name Role Phone Rolanda Thakur MD Primary Care Provider [phone]- [phone] Encounter Details Date Type Department Care Team ([facility] st Contact Info) Description 11/20/2024 Orders Only [facility] CH[facility] MED & PEDS [address] [place] [address] Rolanda Thakur MD [address] [place] [address] Type 2 diabetes mellitus without complication, without long-term current use of insulin ([facility]) (Primary Dx); UTI symptoms Social History Tobacco Use Types Packs/Day Years [...] Type Priority Associated Diagnoses Orde r Schedule Culture, Urine, Routine Microbiology Routine Type 2 diabetes mellitus without complication, without long-term current use of insulin ([facility]) UTI symptoms Expected: 11/20/2024 (Approximate), Expires: 11/20/2025 Basic Metabolic Panel Lab Routine Type 2 diabetes mellitus without complication, without long-term current use of insulin ([facility]) Expected: 11/22/2024 (Approximate), Expires: 11/22/2025 CBC auto differential Lab Routine Type 2 diabetes mellitus without complication, without long-term current use of insulin ([facility]) Expected: 11/22/2024 (Approximate), Expires: 11/22/2025 documented as of this encounter Visit Diagnoses Diagnosis Type 2 diabetes mellitus without complication, without long-term current use of insulin ([facility])- Primary UTI symptoms documented in this encounter Additional Health Concerns Assessment Noted Time PHQ-9 Depression Total Score: 2 05/13/20 24 9:24 AM EDT documented as of this encounter Care Teams Registration Representative Relationship Specialty Start Date End Date Rolanda Thakur MD [address] [place] [phone] PCP - General Internal Medicine 09/19/22 documented as of this encounter
--- OUTSIDE RECORDS SUMMARY | 2024-11-23 08:56 | XMS_ITS | Encounter Summary ---
Author Organization [employer] Address [address] [place] [address] Care Team Providers Care Oil Recovery Operator Name Role Phone Rolanda Thakur MD Primary Care Provider [phone]- [phone] Reason for Referral * Consultation (Routine) - Closed Specialty Diagnoses / Procedures Referred By Freddy t Referred To Contact Chiropractic Medicine Diagnoses Chronic left-sided low back pain with left-sided sciatica Rolanda Thakur MD [address] [place] [address] Phone: tel: fax: [facility] fax: Referral ID Status Reason Start Date Expiration Date V isits Requested Visits Authorized [id number] Closed Specialty Services Required 08/08/2024 08/08/2025 1 1 * Consultation (Routine) - Closed Specialty Diagnoses / Procedures Referred By Freddy t Referred To Contact Physical Therapy Diagnoses Chronic left-sided low back pain with left-sided sciatica Rolanda Thakur MD [address] [place] [address] Phone: tel: fax: [facility] [address] [place] [address] Phone: tel: fax: Referral ID Status Reason Start Date Expiration Date V isits Requested Visits Authorized [id number] Closed Specialty Services Required 08/05/2024 08/05/2025 1 1 * Consultation (Routine) - Closed Specialty Diagnoses / Procedures Referred By Freddy meadows Referred To Contact Chiropractic Medicine Diagnoses Chronic left-sided low back pain with left-sided sciatica Rolanda Thakur MD [address] [place] [address] Phone: tel: fax: Referral ID Status Reason Start Date Expiration Date V isits Requested Visits Authorized [id number] Closed Specialty Services Required 08/02/2024 08/02/2025 1 1 Encounter Details Date Type Department Care Team ([facility] Contact Info) Description 08/02/2024 Orders Only [facility] CH[facility] MED & PEDS [address] [place] [address] Rolanda Thakur MD [address] [place] [address] Chronic left-sided low back pain with left-sided [...] Adult Primary Care ?[address] ? [place] [address] ?XRay Report ? Signed ? Patient: Cook,Angely ?MR#: [id number] ? : 1950 ?Acct:[id number] ? Age/Sex: 74 / F ?ADM Date: 08/12/24 ? Loc: HO.HMGCX ? Attending Dr: Wyatt Golden MD ? Ordering Physician: Wyatt Golden MD ?? Date of Service: 08/12/24 ?? Procedure(s): XR cervical spine 5V ?? Accession Number(s): [id number] ? cc: Rolanda Thakur MD; Wyatt Golden [...] DD/ 0950 ? TD/TT: 08/12/24 1000 ? Senior Backup Administrator: ? Procedure Note Darrell Fonseca - 09/02/2024 [facility] [address] [place], [place] [address] XRay Report Signed Patient: Zion PinedaJean-Paul#: [id number] : 1Acct:[id number] Age/Sex: 74 / FADM Date: 08/12/24 Loc: HO.HMGCX Attending Dr: Wyatt Golden MD Ordering Physician: Wyatt Golden MD Date of Service: 08/12/24 Procedure(s): XR cervical spine 5V Accession Number(s): [id number] cc: Rolanda Thakur MD; Wyatt Golden MD [...] by: Yuridia Becerra MD 09/02/2024 11:21 AM [facility] Dictated By: Yuridia Becerra MD Signed By: <Electronically signed by Yuridia Becerra MD in OV> 09/02/24 1121 DD/ 0950 TD/TT: 08/12/24 1000 Senior Backup Administrator: us Wyatt Mcdonald MD IMG XR PROCEDURES Iftikhar mecca Result - Final documented in this encounter Visit Diagnoses Diagnosis Chronic left-sided low back pain with left-sided sciatica- Primary documented in this encounter Additional Health Concerns Assessment Noted Time PHQ-9 Depression Total Score: 2 05/13/20 24 9:24 AM EDT documented as of this encounter Care Teams Oil Recovery Operator Relationship Specialty Start Date End Date Rolanda Thakur MD [address] [place] [phone] PCP - General Internal Medicine 09/19/22 documented as of this encounter
--- OUTSIDE RECORDS SUMMARY | 2024-11-23 08:56 | XMS_ITS | Encounter Summary ---
Author Organization [employer] Address [address] [place] [address] Care Team Providers Care Milk Truck Driver Name Role Phone Rolanda Thakur MD Primary Care Provider +1- [phone] Reason for Visit * Reason Onset Date Comments EKG 06/18/2024 Encounter Details Date Type Department Care Team ([facility] st Contact Info) Description 06/18/2024 Telephone [facility] CHC MED & PEDS [address] [place] [address] Rolanda Thakur MD 505 [place] [address] EKG Social History Tobacco Use Types Packs/Day [...] Given pt's symptoms, she would need a [facility] appointment to get the notes for our disaster or damage control specialist to process the referral. * Telephone [...] should seek a neurology referral. She states machine heel seat laster advised her to get a referral due to procedure done for cataracts might have struck a nerve and that might be were the headaches are coming from. * Telephone Encounter - Annabella Peña - 06/18/2024 4:03 PM EDT Tc from pt requesting status on order for EKG. Contact Paulette at [phone] documented in this encounter Plan of Treatment Not on file documented as of this encounter Visit Diagnoses Not on filedocumented in this encounter Additional Health Concerns Assessment Noted Time PHQ-9 Depression Total Score: 2 05/13/20 24 9:24 AM EDT documented as of this encounter Care Teams Milk Truck Driver Relationship Specialty Start Date End Date Rolanda Thakur MD [address] [place] [address] PCP - General Internal Medicine 09/19/22 documented as of this encounter
--- OUTSIDE RECORDS SUMMARY | 2024-11-23 08:56 | XMS_ITS | Encounter Summary ---
Author Organization [employer] Address [address] [place] [address] [place] [address] Care Team Providers Care Entertainment Usher Name Role Phone Rolanda Thakur MD Primary Care Provider Encounter Details Date Type Department Care Team ([facility] st Contact Info) Description 05/16/2023 Orders Only [facility] CHC MED & PEDS [address] [place] [address] Rolanda Thakur MD 505 [place] [address] Bilateral leg paresthesia (Primary Dx); Anxiety; Diabetic [...] Vitamin B6 (10/10/2023 12:50 PM EST) Pathologist [facility] Vitamin B6 16.0 2.1 - 21.7 ng/mL [facility] Comment:Vitamin supplementat ion within 24 hours prior toblood draw may affect the accuracy of the results.This test was developed and its analytical performancecharacteristics have been determined by [employer] [place], [place]. It hasnot been cleared or approved by the U.S. Food and DrugAdministration. This assay has been validated pursuantto the CLIA regulations and is used for clinicalpurposes.THIS TEST WAS PERFORMED AT:[facility] [place] [address]IWEFRCYTHEO PEDERSEN MD,PHD Blood Venous blood specimen / Unknown 10/10/2023 12:50 PM EST 10/10/2023 2:41 PM EST us Rolanda Thakur MD LAB BLOOD ORDERABLES Final Result [facility] [address] [place] [address] [phone] * (ABNORMAL) Vitamin B12 (10/10/2023 12:50 PM EST) Vitamin B12 1,388(H) 200 - 900 pg/mL [facility] Comment:NORMAL 200-900 PG/ML INDETERMINATE 160-199 PG/ML DEFICIENT < 160 PG/ML Blood Venous blood specimen / Unknown 10/10/2023 12:50 PM EST 10/10/2023 2:41 PM EST Rolanda Thakur MD LAB BLOOD ORDERABLES Final Result Performing Organization Address City/[facility]/ZIP Co de Phone Number [facility] [address] [place] [address] [phone] * TSH W/Reflex to FT4 (10/10/2023 12:50 PM EST) Pathologist [facility] TSH reflex Free T4 0.35 0.32 - 4.0 uIU/mL [facility] Blood 10/10/2023 12:5 0 PM EST 10/10/2023 2:41 PM EST us Rolanda Thakur MD LAB BLOOD ORDERABLES Final Result Performing Organization Address City/[facility]/ZIP Co de Phone Number [facility] [address] [place] [phone] * (ABNORMAL) CBC auto differential (10/10/2023 12:50 PM EST) White Blood Count 8.0 4.8 - 10.8 X10*3/uL [facility] Red Blood Count 4.19(L) 4.20 - 5.50 X10*6/uL [facility] Hemoglobin 12.3 12.0 - 16.0 g/dl [facility] Hematocrit 36.6(L) 37.0 - 47.0 % [facility] Mean Corpuscular Volume 87.4 80.0 - 98.0 fL [facility] Mean Corpuscular Hemoglobin 29.4 27.0 - 33.0 pg [facility] Mean Corpuscular HGB Conc 33.6 31.0 - 35.0 g/dl [facility] Red Cell Distribution Width 12.8 11.0 - 16.0 % [facility] Platelet Count 252 160 - 400 X10*3/uL [facility] Mean Platelet Volume 9.5 9.4 - 12.3 fL [facility] Neutrophils Percent Auto 55.5 45 - 73 % [facility] Imm Gran Pct Auto 0.4 0.0 - 0.4 % [facility] Lymphocytes Percent Auto 31.3 20 - 40 % [facility] Monocytes Percent Auto 6.0 2 - 11 % [facility] Eosinophils Percent Auto 5.9(H) 0 - 4 % [facility] Basophils Percent Auto 0.9 0 - 2 % [facility] NRBC Pct Auto 0.0 0.0 - 0.2 /100WBC [facility] Neutrophils Absolute Auto 4.5 2.0 - 8.3 x10*3/uL [facility] Imm Gran Abs Auto 0.03 0.00 - 0.03 X10*3/uL [facility] Lymphocytes Absolute Auto 2.5 1.2 - 4.9 X10*3/uL [facility] Monocytes Absolute Auto 0.5 0.1 - 1.2 X10*3/uL [facility] Eosinophils Absolute Auto 0.5(H) 0.0 - 0.4 X10*3/uL [facility] [...] [facility] [address] [place] [address] [phone] documented in this encounter Visit Diagnoses Diagnosis Bilateral leg paresthesia- Primary Disturbance of skin sensation Anxiety Anxiety state, unspecified Diabetic polyneuropathy associated with type 2 diabetes mellitus ([facility]) documented in this encounter Care Teams Entertainment Usher Relationship Specialty Start Date End Date Rolanda Thakur MD [address] [place] [phone] PCP - General Internal Medicine 09/19/22 documented as of this encounter
--- OUTSIDE RECORDS SUMMARY | 2024-11-23 08:56 | XMS_ITS | Encounter Summary ---
Author Organization [employer] Address [address] [place] [address] Care Team Providers Care Marble Installer Supervisor Name Role Phone Rolanda Thakur MD Primary Care Provider [phone]- [phone] Reason for Visit * Reason Onset Date Comments Medication Question 04/04/2024 Encounter Details Date Type Department Care Team (Late st Contact Info) Description 04/04/2024 Telephone [facility] [address] [place] [address] Rolanda Thakur MD 505 [place], [place] [phone] Medication Question Social History Tobacco Use Types [...] on filedocumented in this encounter Care Teams Marble Installer Supervisor Relationship Specialty Start Date End Date Rolanda Thakur MD [address] [place] [address] PCP - General Internal Medicine 09/19/22 documented as of this encounter
--- OUTSIDE RECORDS SUMMARY | 2024-11-23 08:56 | XMS_ITS | Clinical Summary ---
Author Organization [facility] Address [address] [place], [place] [id number] Care Team Providers Care Convenience Store Clerk Name Role Phone Rahel Hough MD Primary Care Provider [phone] Allergies Active Allergy Reactions Criticality Noted Date [...] mg by mouth daily. 0 09/09/2020 Active Burket-3 Fatty Acids (FISH OIL) 1000 MG CAPS [...] age to complete this topic Care Teams Convenience Store Clerk Relationship Specialty Start Date End Date Rahel Hough MD [address] [facility] [place] [address] PCP - General Internal Medicine 11/20/20
--- OUTSIDE RECORDS SUMMARY | 2024-11-23 08:56 | XMS_ITS | Encounter Summary ---
Author Organization [email or web address] Address [address] [place] [address] [place] [address] Care Team Providers Care Meter Maker Name Role Phone Rolanda Thakur MD Primary Care Provider [phone]- [phone] Reason for Referral * Imaging (Routine) - Closed Specialty Diagnoses / Procedures Referred By Contac t Referred To Contact Radiology Diagnoses Hyponatremia Decreased GFR Procedures US RENAL BI Rolanda Thakur MD [address] [place] [address] Phone: tel: fax: [address] Phone: tel: fax: Referral ID Status Reason Start Date Expiration Date Visits Re quested Visits Authorized [id number] Closed 07/18/2024 07/18/2025 1 0 Encounter Details Date Type Department Care Team (Late st Contact Info) Description 07/09/2024 Orders Only [facility] CHC MED & PEDS [address] [place], [place] [phone] Rolanda Thakur MD [address] [place] [address] Hyponatremia (Primary Dx); Decreased GFR Social History [...] as of this encounter Care Teams Meter Maker Relationship Specialty Start Date End Date Rolanda Thakur MD [address] [place] [address] PCP - General Internal Medicine 09/19/22 documented as of this encounter
--- OUTSIDE RECORDS SUMMARY | 2024-11-23 08:56 | XMS_ITS | Encounter Summary ---
Author Organization [employer] Address 75 [facility] 7 [place] [address] Care Team Providers Care Marker Assembler Name Role Phone Rolanda Thakur MD Primary Care Provider [phone]- [phone] Reason for Visit * Reason Onset Date Comments Results 03/29/2024 Encounter Details Date Type Department Care Team ([facility] st Contact Info) Description 03/29/2024 Telephone [facility] MEDICINE [address] [place] [address] Rolanda Thakur MD [address] [place], [place] [phone] Results Social History Tobacco Use Types Packs/Day [...] on filedocumented in this encounter Care Teams Marker Assembler Relationship Specialty Start Date End Date Rolanda Thakur MD [address] [place] [address] PCP - General Internal Medicine 09/19/22 documented as of this encounter
--- OUTSIDE RECORDS SUMMARY | 2024-11-23 08:56 | XMS_ITS | Encounter Summary ---
Author Organization [employer] Address [address] [place] [address] [place] [address] Care Team Providers Care Extractor And Wringer Operator Name Role Phone Rolanda Thakur MD Primary Care Provider [phone]- [phone] Encounter Details Date Type Department Care Team ([facility] st Contact Info) Description 05/22/2024 Orders Only [facility] CHC MED & PEDS [address] [place] [address] Rolanda Thakur MD 505 [place] [address] Social History Tobacco Use Types Packs/Day Years [...] documented as of this encounter Care Teams Extractor And Wringer Operator Relationship Specialty Start Date End Date Rolanda Thakur MD [address] [place] [address] PCP - General Internal Medicine 09/19/22 documented as of this encounter
--- OUTSIDE RECORDS SUMMARY | 2024-11-23 08:56 | XMS_ITS | Encounter Summary ---
Author Organization [employer] Address [address] [place] [address] Care Team Providers Care Wedding Cake Designer Name Role Phone Rolanda Thakur MD Primary Care Provider [phone]- [phone] Reason for Visit * Reason Onset Date Comments Referral 06/13/2024 Encounter Details Date Type Department Care Team (Late st Contact Info) Description 06/13/[address] [facility] MEDICINE [address] [place] [address] Rolanda Thakur MD 505 [place], [place] [phone] Referral Social History Tobacco Use Types Packs/Day [...] documented as of this encounter Care Teams Wedding Cake Designer Relationship Specialty Start Date End Date Rolanda Thakur MD [address] [place] [address] PCP - General Internal Medicine 09/19/22 documented as of this encounter
--- OUTSIDE RECORDS SUMMARY | 2024-11-23 08:56 | XMS_ITS | Encounter Summary ---
Author Organization [employer] Address [address] [place] [address] [place] [address] Care Team Providers Care Cafe Associate Name Role Phone Rolanda Thakur MD Primary Care Provider [phone]- [phone] Reason for Visit * Reason Onset Date Comments CT scan order 07/03/2024 Encounter Details Date Type Department Care Team ([facility] Contact Info) Description 07/03/2024 Telephone [facility] CHC MED & PEDS [address] [place] [address] Rolanda Thakur MD [address] [place] [address] CT scan order Social History Tobacco Use [...] incorrect location. Pt prefers being seen in [facility]. Please call pt to clarify. documented in this encounter Plan of Treatment Not on file documented as of this encounter Visit Diagnoses Not on filedocumented in this encounter Additional Health Concerns Assessment Noted Time PHQ-9 Depression Total Score: 2 05/13/20 24 9:24 AM EDT documented as of this encounter Care Teams Cafe Associate Relationship Specialty Start Date End Date Rolanda Thakur MD [address] [place] [address] PCP - General Internal Medicine 09/19/22 documented as of this encounter
--- OUTSIDE RECORDS SUMMARY | 2024-11-23 08:56 | XMS_ITS | Encounter Summary ---
Author Organization [employer] Address [address] [place] [address] 7 [place] [address] Care Team Providers Care Leather Softener Name Role Phone Rolanda Thakur MD Primary Care Provider [phone]- [phone] Encounter Details Date Type Department Care Team (Late st Contact Info) Description 04/08/2024 Orders Only [facility] [address] [place], [place] [phone] Rolanda Thakur MD 505 [place] [address] UTI symptoms (Primary Dx) Social History Tobacco [...] Primary documented in this encounter Care Teams Leather Softener Relationship Specialty Start Date End Date Rolanda Thakur MD [address] [place] [address] PCP - General Internal Medicine 09/19/22 documented as of this encounter
--- OUTSIDE RECORDS SUMMARY | 2024-11-23 08:56 | XMS_ITS | Encounter Summary ---
Author Organization [employer] Address [address] [place] [address] Care Team Providers Care Oncology Rn Name Role Phone Rolanda Thakur MD Primary Care Provider [phone]- [phone] Reason for Visit * Reason Onset Date Comments Nurse Triage 11/19/2024 Encounter Details Date Type Department Care Team (Late st Contact Info) Description 11/19/2024 Telephone [facility] MEDICINE [address] [place] [address] Rolanda Thakur MD 505 [place] [address] Nurse Triage Social History Tobacco Use Types [...] Telephone Encounter - Henny Tan RN - 11/19/2024 4:35 PM EDT Call returned to Angely Pineda to triage below. Reports having UTI sx last week. Tested with OTC UTI Leukocytes positive on Monday. Reports having left over amoxicillin from a previous rx to treat asinus infection. Took 125mg tablets 2 a day starting 11/16 and then only one tablet today. Pt statesstill having sx. Pt declines a visit. Wants lab order for UA to be sent to [facility] on [facility] or [email or web address] at [address] [place] [address] in [place] to drop off a sample. 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 Pt advised that unfortunately it is end of day and request for lab may not be seen by provider until next business day. Pt verbalized understanding. Pt is aware of walk in center hours. Message forwarded to PCP to review request as pt has already self treated so unsure if UA and culture would be yield valid results . Please advise [facility] primary care team of plan of care. Protocol Used: Urinary Symptoms (Adult) Protocol-Based Disposition: See in Office or Video Visit Today Override (Final) Disposition: Discuss with PCP and Callback by Nurse Today Override Reason: Caller declined suggested disposition Video visit offer not recorded Positive Triage Question: * Urinating more frequently than usual (i.e., frequency) OR new-onset of the feeling of an urgent need to urinate (i.e., urgency) * All higher-acuity triage questions were negative Care Advice Discussed: * Reasons To Call Back - You become worse * Telephone Encounter - Rhys Becerraarez - 11/19/2024 4:19 PM EDT Symptom: Vaginal Symptoms - Not Bleeding Outcome: Schedule an appointment to be seen within 24 hours Reason: Caller denied all higher acuity questions The caller accepted this outcome. Pt reports did a test at school that came up positive for a UTI . Reports still having left over Amoxicillin that she took 11/16/24 took 2 doses 125mg 11/17/24 took 2 doses 125 mg 11/18/24 took 2 doses 125mg 11/19/24 took 1 dose Pt requesting lab order to be sent to [facility] and antibiotics as she feels she stillhas UTI . documented in this encounter Plan of Treatment Not on file documented as of this encounter Visit Diagnoses Not on filedocumented in this encounter Additional Health Concerns Assessment Noted Time PHQ-9 Depression Total Score: 2 05/13/20 24 9:24 AM EDT documented as of this encounter Care Teams Oncology Rn Relationship Specialty Start Date End Date Rolanda Thakur MD [address] [place] [address] PCP - General Internal Medicine 09/19/22 documented as of this encounter
--- OUTSIDE RECORDS SUMMARY | 2024-11-23 08:56 | XMS_ITS | Encounter Summary ---
Author Organization [employer] Address [address] [place] [address] [place] [address] Care Team Providers Care Program Manufacturing Leader Name Role Phone Rolanda Thakur MD Primary Care Provider [phone]- [phone] Reason for Visit * Reason Comments Med Refill Encounter Details Date Type Department Care Team (Late st Contact Info) Description 05/20/2024 Refill [facility] CHC MED & PEDS [address] [place] [address] Rolanda Thakur MD 505 [place] [address] Diabetic polyneuropathy associated with type 2 diabetes mellitus ([facility]) Social History Tobacco Use Types Packs/Day Years [...] documented as of this encounter Care Teams Program Manufacturing Leader Relationship Specialty Start Date End Date Rolanda Thakur MD [address] [place] [address] PCP - General Internal Medicine 09/19/22 documented as of this encounter
--- OUTSIDE RECORDS SUMMARY | 2024-11-23 08:57 | XMS_ITS | Encounter Summary ---
Author Organization [employer] Address [address] [place] [address] Care Team Providers Care Mold Repairer Name Role Phone Rolanda Thakur MD Primary Care Provider [phone] Reason for Referral * Consultation (Routine) - Closed Specialty Diagnoses / Procedures Referred By Contac t Referred To Contact Behavioral Health Diagnoses Anxiety Rolanda Thakur MD [address] [place] [address] Phone: tel: fax: Referral ID Status Reason Start Date Expiration Date V isits Requested Visits Authorized [id number] Closed Specialty Services Required 05/02/2024 05/02/2025 1 1 Encounter Details Date Type Department Care Team ([facility] Contact Info) Description 05/02/2024 Orders Only [facility] CHC MED & PEDS [address] [place] [address] Rolanda Thakur MD [address] [place] [address] Anxiety (Primary Dx) Social History Tobacco Use [...] unspecified documented in this encounter Care Teams Mold Repairer Relationship Specialty Start Date End Date Rolanda Thakur MD [address] [place] [address] PCP - General Internal Medicine 09/19/22 documented as of this encounter
--- OUTSIDE RECORDS SUMMARY | 2024-11-23 08:57 | XMS_ITS | Encounter Summary ---
Author Organization [employer] Address [address] [place] [address] Care Team Providers Care Traveling Inventory Associate Name Role Phone Rolanda Thakur MD Primary Care Provider [phone]- [phone] Reason for Visit * Reason Comments Med Refill Encounter Details Date Type Department Care Team (Late st Contact Info) Description 08/27/2024 Refill [facility] MEDICINE [address] [place] [address] Rolanda Thakur MD [address] [place], [place] [phone] Type 2 diabetes mellitus without complication, without long-term current use of insulin ([facility]) Social History Tobacco Use Types Packs/Day Years [...] without long-term current use of insulin ([facility]) documented in this encounter Additional Health Concerns Assessment Noted Time PHQ-9 Depression Total Score: 2 05/13/20 24 9:24 AM EDT documented as of this encounter Care Teams Traveling Inventory Associate Relationship Specialty Start Date End Date Rolanda Thakur MD [address] [place] [address] PCP - General Internal Medicine 09/19/22 documented as of this encounter
--- OUTSIDE RECORDS SUMMARY | 2024-11-23 08:57 | XMS_ITS | Encounter Summary ---
Author Organization [employer] Address [address] [place] [address] [place] [address] Care Team Providers Care Voucher Clerk Name Role Phone Rolanda Thakur MD Primary Care Provider [phone] Reason for Visit * Reason Onset Date Comments Medication Question 12/08/2022 Encounter Details Date Type Department Care Team ([facility] st Contact Info) Description 12/08/2022 Telephone [facility] CHC MED & PEDS [address] [place] [address] Rolanda Thakur MD 505 [place] [address] Medication Question Social History Tobacco Use Types [...] on filedocumented in this encounter Care Teams Voucher Clerk Relationship Specialty Start Date End Date Rolanda Thakur MD [address] [place] [address] PCP - General Internal Medicine 09/19/22 documented as of this encounter
--- OUTSIDE RECORDS SUMMARY | 2024-11-23 08:57 | XMS_ITS | Encounter Summary ---
Author Organization [employer] Address [address] [place] [address] Care Team Providers Care Watershed Tender Name Role Phone Rolanda Thakur MD Primary Care Provider [phone]- [phone] Reason for Visit * Reason Onset Date Comments Nurse Triage 09/24/2024 Encounter Details Date Type Department Care Team (Late st Contact Info) Description 09/24/2024 Telephone [facility] 230 [place] [address] Rolanda Thakur MD 505 [place] [address] Nurse Triage Social History Tobacco Use Types [...] WIC for today as no appts in [facility]. Pt states gets panic attacks if has to wait . Pt advised unfortunately no appts in [facility]> Unable to schedule ahead for WIC. Pt states will seek [facility] clinic on [facility] in [place]. Will send to team as FYI to [...] acuity questions The caller accepted this outcome. [phone] documented in this encounter Plan of Treatment Not on file documented as of this encounter Visit Diagnoses Not on filedocumented in this encounter Additional Health Concerns Assessment Noted Time PHQ-9 Depression Total Score: 2 05/13/20 24 9:24 AM EDT documented as of this encounter Care Teams Watershed Tender Relationship Specialty Start Date End Date Rolanda Thakur MD [address] [place] [address] PCP - General Internal Medicine 09/19/22 documented as of this encounter
--- OUTSIDE RECORDS SUMMARY | 2024-11-23 08:57 | XMS_ITS | Clinical Summary ---
Author Organization [employer] Address [address] [place] [address] 7 [place] [address] Care Team Providers Care Compliance Assistant Name Role Phone Rolanda Thakur MD Primary Care Provider [phone] Allergies Active Allergy Reactions Criticality Noted Date [...] complication, without long-term current use of insulin ([facility]) Chew 4 tablets (16 g) if needed for low blood sugar. 50 tablet 12 03/06/20 24 2024 Active glucose blood (PhotoFix UKuch Ultra) test stripIndications: Type 2 diabetes mellitus without complication, without long-term current use of insulin ([facility]) USE DIRECTED TO TEST BLOOD GLUCOSE TWICE DAILY 100 strip 11 07/05/20 24 Active metFORMIN (Glucophage) 500 MG tabletIndications :Type 2 diabetes mellitus without complication, without long-term current use of insulin ([facility]) TAKE 1 TABLET BY MOUTH TWICE [...] MONDAY, MONDAY, MONDAY, AND MONDAY 36 tablet 08/22/19 25 Active aspirin (Aspirin Low Dose) 81 MG EC tablet Take 1 tablet (81 mg) by mouth Once per day. 90 tablet 08/22/19 25 Active Multiple Vitamin (Daily-Saadia Multivitamin) tablet TAKE 1 TABLET BY MOUTH EVERY DAY 30 tablet 08/23/19 25 Active cloNIDine (Catapres) 0.1 MG tabletIndications :Anxiety,Benign essential hypertension TAKE 1 TABLET(0.1 MG) BY MOUTH THREE TIMES DAILY 90 tablet 2 09/04/19 25 Active capsaicin (Zostrix) 0.025 % creamIndications: Spondylosis of cervical region without myelopathy or radiculopathy Apply topically 2 times daily. 56.6 g 09/10/19 25 2025 Active cyanocobalamin (Vitamin B-12) 500 MCG tablet TAKE 1 TABLET(500 MCG) BY MOUTH DAILY IN THE MORNING 90 tablet 09/16/19 25 Active cyclobenzaprine (Flexeril) 10 MG tabletIndications :Neck pain on left side TAKE 1 TABLET BY MOUTH THREE TIMES DAILY( EVERY EIGHT HOURS) 30 tablet 09/19/19 25 Active glipiZIDE XL (Glucotrol XL) 10 MG 24 hr tabletIndications :Type 2 diabetes mellitus without complication, without long-term current use of insulin (CMS/HCC) Take 1 tablet (10 mg) by mouth 2 times daily. Do not crush, chew, or split. 60 tablet 11/15/19 25 2025 Active glipiZIDE (Glucotrol) 10 MG tabletIndications :Diabetic polyneuropathy associated with type 2 diabetes mellitus (CMS/HCC) TAKE 1 TABLET(10 MG) BY MOUTH BEFORE BREAKFAST AND BEFORE THE EVENING MEAL 60 tablet 09/18/19 25 2024 Discontinued(D ose adjustment) Continuous Glucose Sensor (RampedMediacom G7 Sensor) miscIndications:T ype 2 diabetes mellitus without complication, without long-term current use of insulin (CMS/HCC) 1 Units Once per day AND 1 Units Once per day. Apply 1 sensor every 10 days. 3 each 10/11/192024 glipiZIDE XL (Glucotrol XL) 10 MG 24 hr tabletIndications :Type 2 diabetes mellitus without complication, without long-term current use of insulin ([facility]) Take 1 tablet (10 mg) by mouth Once per day. Do not crush, chew, or split. 30 tablet 11/15/192024 Discontinued(R eorder (will not trigger notification to Pharmacy)) Active Problems Problem Noted Date Diagnosed Date FB eye, left, initial encounter 11/12/2024 Assessment & Plan (11/12/2024 6:57 PM EDT): Had small flake/dust particle in left eye easily removed with swab. Otherwise eye exam benign. No fluorescein uptake. -work note given. Neck pain on left side 08/10/2024 Assessment [...] Plan: Augmentin BID x 10 days Nasal [place] Follow up if worsening or no improvement [...] the context of feeling like this since , financial instability, new allergic reaction starting this [...] intervention , [facility], Patient to engage in OP therapy , and Patient to reach out to [facility] as needed Swelling of lip, tongue, and throat 05/10/2024 Assessment & Plan (05/22/2024 1:00 PM EDT): Patient reports episodes of swelling of exposure to different antigens, at this moment given recurrence and symptoms affecting patients daily, will strongly benefit of assessment from automobile parker to help elucidate etiology of symptoms. Peripheral [...] organization. Date Type Department Care Team Description 11/22/2024 Telephone [facility] [address] [place] [address] Rolanda Thakur MD 11/20/2024 Orders Only [facility] [address] [place] [address] Rolanda Thakur MD Type 2 diabetes mellitus without complication, without long-term current use of insulin ([facility]) (Primary Dx); UTI symptoms 11/19/2024 Telephone [facility] [address] [place] [address] Rolanda Thakur MD FYI 11/19/2024 Telephone [facility] [address] [place] [address] Rolanda Thakur MD Nurse Triage 11/14/2024 4:00 PM EDT Office Visit [facility] [address] [place] [address] Rolanda Thakur MD Type 2 diabetes mellitus without complication, without long-term current use of insulin ([facility]/HCC) (Primary Dx); Bronchitis 11/14/2024 Travel 11/12/2024 7:20 PM EDT Office Visit [facility] [address] [place] [phone] Ilsa Arana MD FB eye, left, initial encounter (Primary Dx) 11/12/2024 Travel 11/09/2024 Orders Only GENERIC EXTERNAL DATA DEPARTMENT Provider, Generic External Data 11/07/2024 Orders Only [address] [address] Rolanda Thakur MD Type 2 diabetes mellitus without complication, without long-term current use of insulin (CMS/HCC) (Primary Dx); Benign essential hypertension 11/06/[address] [address] Rolanda Thakur MD Appointment Request 10/31/[address] [address] Rolanda Thakur MD Call Back Request 10/31/[address] [address] Rolanda Thakur MD I ; Call Back Request 10/31/[address] [address] Rolanda Thakur MD Nurse Triage 10/28/2024 Telephone [facility] [address] [place] [address] Rolanda Thakur MD 10/23/2024 Telephone [facility] [address] [place] [address] Apple Britton, Carleen 10/14/2024 Patient Outreach [facility] [address] [place] [address] Rolanda Thakur MD Care Coordination (CHW outreach for SDOH-patient declined to participate ) 10/14/[address] [address] Rolanda Thakur MD 10/11/2024 3:45 PM EST Office Visit [facility] [address] [place] [address] Rolanda Thakur MD Type 2 diabetes mellitus without complication, without long-term current use of insulin (CMS/HCC) (Primary Dx); Generalized anxiety disorder with panic attacks; Financial difficulties; Meralgia paresthetica of right side 10/11/2024 Telephone [facility] [address] [place] [phone] Rolanda Thakur MD FYI 10/11/2024 Travel 10/08/2024 Telephone [facility] [address] [place] [address] Rolanda Thakur MD Change PCP 10/08/2024 Orders Only [facility] [address] [place] [address] Rolanda Thakur MD Type 2 diabetes mellitus without complication, without long-term current use of insulin (CMS/HCC) (Primary Dx) 10/08/2024 Telephone [facility] [address] [place] [address] Rolanda Thakur MD 09/24/2024 Orders Only GENERIC EXTERNAL DATA DEPARTMENT Provider, Generic External Data 09/24/[address] [address] Rolanda Thakur MD Nurse Triage 09/23/2024 Telephone [facility] [address] [place] [address] Huong Heredia RN 09/23/2024 Orders Only [facility] [address] [place] [address] Rolanda Thakur MD Acquired hypothyroidism (Primary Dx); Benign essential hypertension 09/18/2024 Refill [facility] [address] [place] [address] Wyatt Huizar MD Neck pain on left side 09/17/2024 Refill [facility] [address] [place] [address] Rolanda Thakur MD Diabetic polyneuropathy associated with type 2 diabetes mellitus ([facility]/HCC) 09/15/2024 Refill [facility] [address] [place] [address] Rolanda Thakur MD 09/10/2024 3:45 PM EST Office Visit [facility] [address] [place] [address] Rolanda Thakur MD Type 2 diabetes mellitus without complication, without long-term current use of insulin ([facility]) (Primary Dx); Diabetic polyneuropathy associated with type 2 diabetes mellitus (CMS/HCC); Spondylosis of cervical region without myelopathy or radiculopathy; Benign essential hypertension 09/10/2024 Travel 09/04/2024 Refill [facility] [address] [place] [address] Rolanda Thakur MD Anxiety; Benign essential hypertension 08/27/2024 Refill [facility] [address] [place] [address] Rolanda Thakur MD Type 2 diabetes mellitus without complication, without long-term current use of insulin ([facility]) 08/26/2024 Orders Only [facility] [address] [place] [address] Rolanda Thakur MD Type 2 diabetes mellitus without complication, without long-term current use of insulin ([facility]) (Primary Dx) from Last 3 Months Immunizations [...] Sign Reading Time Taken Comments Blood Pressure 155/75 11/14/2024 4:02 PM EDT Pulse 56 11/14/2024 4:02 PM EDT Temperature 36.7 ??C (98 ??F) 11/14/2024 4:02 PM EDT Respiratory Rate 22 11/14/2024 4:02 PM EDT Oxygen Saturation 98% 11/14/2024 4:02 PM EDT Inhaled Oxygen Concentration - - Weight 68 [...] 07/17/2024 Lipid Panel 07/17/2025 07/17/2024, 04/21, 07/13/2022 Alcohol/Substance Use Screening 09/10/2025 09/10/2024 SDOH Screening 09/10/2025 09/10/2024 Eye Exam 09/26/2025 09/26/2023 Tobacco Screening 11/14/2025 11/14/2024 Colorectal Cancer Screening 08/09/2027 FIT DNA/Cologuard 08/09/2027 [...] Date/Time Associated Diagnosis Comments POCT GLUCOSE Routine 11/14/2024 4:29 PM EDT Type 2 diabetes mellitus without complication, without long-term current use of insulin ([facility]) BASIC METABOLIC PANEL Routine 11/09/2024 9:44 AM EDT CBC WITH AUTO DIFFERENTIAL Routine 11/09/2024 9:44 AM EDT SARS COV2/INFLUENZA A/B AND RSV RNA QL NAAT Routine 11/09/2024 9:08 AM EDT POCT GLUCOSE Routine 10/11/2024 4:11 PM EST [...] QL NAAT Routine 09/24/2024 12:14 PM EST LAB COLOGUARD?? COLON CANCER SCREEN Routine [...] to Health Maintenance Results * POCT Glucose (11/14/2024 4:29 PM EDT) Only the most recent of2 resultswithin the time period is included. Glucose Blood, POC 139 60 - 200 mg/dL Comment:Random QC Media Lot # [id number] Lot# Expiration Date [id number] Blood Capillary blood specimen / Unknown 11/14/2024 4:29 PM EDT Rolanda Thakur MD POINT OF CARE TEST ENTER/ED IT ORDERABLES Final Result * (ABNORMAL) CBC auto differential (11/09/2024 9:44 AM EDT) Only the most recent of2 resultswithin the time period is included. [facility] White Blood Count 7.4 4.8 - 10.8 X10*3/uL [facility] Red Blood Count 4.08(L) 4.20 - 5.50 X10*6/uL [facility] Hemoglobin 12.5 12.0 - 16.0 g/dl [facility] Hematocrit 36.0(L) 37.0 - 47.0 % [facility] Mean Corpuscular Volume 88.2 80.0 - 98.0 fL [facility] Mean Corpuscular Hemoglobin 30.6 27.0 - 33.0 pg [facility] Mean Corpuscular HGB Conc 34.7 31.0 - 35.0 g/dl [facility] Red Cell Distribution Width 13.1 11.0 - 16.0 % [facility] Platelet Count 263 160 - 400 X10*3/uL [facility] Mean Platelet Volume 9.3(L) 9.4 - 12.3 fL [facility] Neutrophils Percent Auto 68.8 45 - 73 % [facility] Imm Gran Pct Auto 0.3 0.0 - 0.4 % [facility] Lymphocytes Percent Auto 19.1(L) 20 - 40 % [facility] Monocytes Percent Auto 6.9 2 - 11 % [facility] Eosinophils Percent Auto 3.5 0 - 4 % [facility] Basophils Percent Auto 1.4 0 - 2 % [facility] NRBC Pct Auto 0.0 0.0 - 0.2 /100WBC [facility] Neutrophils Absolute Auto 5.1 2.0 - 8.3 x10*3/uL [facility] Imm Gran Abs Auto 0.02 0.00 - 0.03 X10*3/uL [facility] Lymphocytes Absolute Auto 1.4 1.2 - 4.9 X10*3/uL [facility] Monocytes Absolute Auto 0.5 0.1 - 1.2 X10*3/uL [facility] Eosinophils Absolute Auto 0.3 0.0 - 0.4 X10*3/uL [facility] Basophils Absolute Auto 0.1 0.0 - 0.2 X10*3/uL [facility] NRBC Abs Auto 0.000 0.0 - 0.012 X10*3/uL [facility] 11/09/2024 9:44 AM EDT 11/09/2024 12:00 PM EDT us Generic External Data Provider LAB BLOOD ORDERAB LES Final Result [facility] [address] [place] [phone] * (ABNORMAL) Basic Metabolic Panel (11/09/2024 9:44 AM EDT) Sodium 133(L) 135 - 145 mmol/L [facility] Potassium 4.6 3.3 - 5.1 mmol/L [facility] Chloride 105 96 - 108 mmol/L [facility] Carbon Dioxide 21(L) 22 - 29 mmol/L [facility] Anion Gap 12 12 - 20 [facility] Urea Nitrogen (BUN) 28(H) 9 - 16 mg/dL [facility] Creatinine, Serum 1.00 0.5 - 1.4 mg/dL [facility] Estimated Glomerular Filt Rate 54 [facility] Comment:Chronic Kidney Disea se: Estimated GFR < 60 mL/min/1.59m2Bjybxf Kidney Disease: Estimated GFR < 15 mL/min/1.73m2 Glucose 218(H) 60 - 115 mg/dL [facility] Calcium 9.8 8.4 - 10.2 mg/dL [facility] 11/09/2024 9:44 AM EDT 11/09/2024 12:00 PM EDT us Generic External Data Provider LAB BLOOD ORDERAB LES Final Result [facility] [address] [place] [address] [phone] * (ABNORMAL) SARS-CoV-2 RNA, Influenza A/B, and RSV RNA, Ql NAAT (11/09/2024 9:08 AM EDT) Only the most recent of2 resultswithin the time period is included. Influenza A PCR NEGATIVE Negative [facility] Influenza B PCR NEGATIVE Negative [facility] Resp Syncy Virus RNA Qual PCR NEGATIVE Negative [facility] SARS COV2 PCR POSITIVE(A) Negative [facility] Comment:All test results mus t be [...] use by authorized laboratories.Testing performed on the [employer] GeneXpert utilizingreal-time RT-PCR.All SARS CoV2 and positive influenza A/B results arereported to [facility]. 11/09/2024 9:08 AM EDT 11/09/2024 1:15 PM EDT us Generic External Data Provider LAB MICROBIOLOGY - GENERAL ORDERABLES Final Result Performing Organization Address [facility] de Phone Number [facility] [address] [place] [address] [phone] * (ABNORMAL) Basic Metabolic Panel, Fasting (09/24/2024 1:40 PM EST) Sodium 139 135 - 145 mmol/L [facility] Potassium 3.8 3.3 - 5.1 mmol/L [facility] Chloride 106 96 - 108 mmol/L [facility] Carbon Dioxide 22 22 - 29 mmol/L [facility] Anion Gap 15 12 - 20 [facility] Urea Nitrogen (BUN) 13 9 - 16 mg/dL [facility] Creatinine, Serum 0.94 0.5 - 1.4 mg/dL [facility] Estimated Glomerular Filt Rate 58 [facility] Comment:Chronic Kidney Disea se: Estimated GFR < 60 mL/min/1.36t7Otadyh Kidney Disease: Estimated GFR < 15 mL/min/1.73m2 Glucose Fasting 169(H) 60 - 99 mg/dL [facility] Comment:A fasting glucose of 126 mg/dl or greater on more than oneoccasion is considered diagnostic of diabetes. Calcium 9.9 8.4 - 10.2 mg/dL [facility] Blood Venous blood specimen / Unknown 09/24/2024 1:40 PM EST 09/24/2024 4:21 PM EST Rolanda Thakur MD LAB BLOOD ORDERABLES Final Result Performing Organization Address [facility]/ZIP Co de Phone Number [facility] [address] [place] [address] [phone] * TSH W/Reflex to FT4 (09/24/2024 1:40 PM EST) TSH reflex Free T4 0.38 0.32 - 4.0 uIU/mL [facility] Blood Venous blood specimen / Unknown 09/24/2024 1:40 PM EST 09/24/2024 4:21 PM EST us Rolanda Thakur MD LAB BLOOD ORDERABLES Final Result Performing Organization Address City/[facility]/ZIP Co de Phone Number [facility] [address] [place] [phone] * Aldosterone/Plasma Renin Activity Ratio, LC/MS/MS (09/24/2024 1:40 PM EST) Aldosterone 2 see note ng/dL [facility] Comment:Unable to flag abnor mal result(s), please refer to reference range(s) below:Adult Reference Ranges for Aldosterone, LC/MS/MS: Upright 8:00 - 10:00 am < or = 28 ng/dL Upright 4:00 - 6:00 pm < or = 21 ng/dL Supine 8:00 - 10:00 am 3 - 16 ng/dLTHIS TEST WAS PERFORMED AT:[employer] [id number] [place] [address]YCNPFSDTHEO PEDERSEN MD,PHD Plasma Renin Activity 0.52 0.25 - 5.82 ng/mL/h [facility] Aldosterone/Renin Ratio 3.8 0.9 - 28.9 Ratio [facility] Comment:This test was develo ped and its analytical performancecharacteristics have been determined by [employer] [place], [place]. It hasnot been cleared or approved by the U.S. Food and DrugAdministration. This assay has been validated pursuantto the CLIA regulations and is used for clinicalpurposes.THIS TEST WAS PERFORMED AT:[id number] [place] [address]VMKPUQRTHEO PEDERSEN MD,PHD Blood Venous blood specimen / Unknown 09/24/2024 1:40 PM EST 09/24/2024 4:21 PM EST us Rolanda Thakur MD LAB BLOOD ORDERABLES Final Result [facility] [address] [place] [phone] * Cologuard?? colon cancer screening (08/09/2024 8:30 AM EST) Cologuard Result Negative Negative 08/18/20 11:52 PM EST [facility] (CLIA #:[id number]) Comment: NEGATIVE TEST RESULT. A negative Cologuard [...] cancer. ??Following a negative Cologuard result, the [place] [employer] and U.S. Multi-Society Task Force screening guidelines recommend a Cologuard re-screening interval of 3 years. References: [place] [employer] Guideline for Colorectal Cancer Screening: https://www.cancer.org/cancer/fxiix-atipew-sqaadz/vteqiktmj-yjzmmypgx-hzweeqw/ac s-rec ommendations.html.; Santiago DK, Ileana CR, Emery LalaK, Colorectal Cancer Screening: Recommendations for Physicians and Patients from the U.S. Multi-Society Task Force on Colorectal Cancer Screening , Am J Gastroenterology 2017; 112:9464-9733. TEST DESCRIPTION: Composite algorithmic analysis of stool [...] (Dioni Kelly al, N Engl J Med 2014;370(14):4155-6712.) Cologuard may produce a false negative or false positive result (no colorectal cancer or precancerous polyp present at colonoscopy follow up). A negative Cologuard test result does not guarantee the absence of CRC or advanced adenoma (pre-cancer). The current Cologuard screening interval is every 3 years. ([place] [employer] and U.S. Multi-Society Task Force). Cologuard performance data in a 10,000 patient pivotal study using colonoscopy as the reference method can be accessed at the following location: www.[employer].CNZZ/results. Additional description of the Cologuard test process, warnings and precautions can be found at www.KUNFOOD.comrd.com. Stool specimen (specimen) 08/09/2024 8:30 AM EST 08/10/2024 2:47 PM EST us Rolanda Thakur MD LAB MOLECULAR DIAGNOSTICS O RDERABLES Final Result [facility] (CLIA #:[id number]) [address] [place] [address], * Hepatitis C Antibody with Reflex to HCV, RNA, Quantitative, Real-Time PCR (07/17/2024 3:20 PM EST) Hepatitis C Antibody Nonreactive Nonreactive [facility] Comment:Antibodies to HCV no t detected; does not exclude early acuteHCV infection. Blood Venous blood specimen / Unknown 07/17/2024 3:20 PM EST 07/17/2024 5:23 PM EST Rolanda Thakur MD LAB BLOOD ORDERABLES Final Result Performing Organization Address [facility] de Phone Number [facility] [address] [place] [phone] * (ABNORMAL) Lipid Panel, Standard (07/17/2024 3:20 PM EST) Pathologist [facility] [place] Triglycerides 89 <150 mg/dL [facility] Comment:Desirable Triglyceri de: less than 150 mg/dLBorderline High Triglyceride 150-199 mg/dLHigh Triglyceride: 200-499 mg/dLVery High Triglyceride: greater than or equal to 5OO mg/dL Cholesterol 193 <200 mg/dL [facility] Comment:Desirable Cholestero l: less than 200 mg/dLBorderline High Cholesterol: 200-239 mg/dLHigh Cholesterol: greater than 239 mg/dL LDL Cholesterol Calculated 111(H) <100 mg/dL [facility] Comment:Desirable LDL: less than 100 mg/dLNear Optimal/Above Optimal LDL: 110- 129 mg/dLBorderline High LDL: 130-159 mg/dLHigh LDL: 160-189 mg/dLVery High LDL: greater than or equal to 190 mg/dL HDL Cholesterol 65 >40 mg/dL [facility] Comment:Desirable HDL: great er than 40 mg/dL Note: This HDL assay may give artificially low results in patients with liver disease. Blood Venous blood specimen / Unknown 07/17/2024 3:20 PM EST 07/17/2024 5:23 PM EST us Rolanda Thakur MD LAB BLOOD ORDERABLES Final Result Performing Organization Address [facility] Co de Phone Number [facility] [address] [place] [phone] * Albumin, Random Urine W/Creatinine (07/17/2024 2:55 PM EST) Creatinine, Urine 38.88 mg/dL [facility] Microalbumin Urine <5.0 mg/L H [facility] Microalbum Creatinine Ratio Ur TNP <30 ug/mg cr [facility] Comment:Unable to calculate albumin/creatinine ratio due to lowmicroalbumin or creatinine result. Urine (Urine, Random) 07/17/2024 2:55 PM EST 07/17/2024 5:25 PM EST Rolanda Thakur MD LAB URINE ORDERABLES Final Result [facility] [address] [place] [phone] [phone] * (ABNORMAL) POCT HGB A1C (07/06/2024 9:32 AM EST) Hemoglobin A1C 8.3(A) 4.0 - 6.0 % Blood 07/06/2024 9:32 AM EST Edward Bach MD POINT OF CARE TEST ENTER/EDIT OR DERABLES Final Result * gFOBT (01/03/2022) Fecal Occult Blood 1 Negative Fecal Occult Blood 2 Negative Fecal Occult Blood 3 Negative 01/03/2022 Chema Provider POINT OF CARE TEST ENTER/ EDIT ORDERABLES Final Result from Last 3 Months or Most Recently Relevant to Health Maintenance Insurance [facility] [place] [address] [place] [address] [place] [address] Care Teams Compliance Assistant Relationship Specialty Start Date End Date Rolanda Thakur MD [address] [place] [address] GELY Vanessa [phone] PCP - General Internal Medicine 09/19/22
--- OUTSIDE RECORDS SUMMARY | 2024-11-23 08:57 | XMS_ITS | Encounter Summary ---
Author Organization [employer] Address [address] [place] [address] [place] [address] Care Team Providers Care Hog Pusher Name Role Phone Rolanda Thakur MD Primary Care Provider +1- [phone] Reason for Visit * Reason Onset Date Comments Referral 09/29/2022 Encounter Details Date Type Department Care Team ([facility] st Contact Info) Description 09/29/2022 Telephone [facility] CHC MED & PEDS 505 [place] [address] Rolanda Thakur MD 505 [place] [address] Referral Social History Tobacco Use Types Packs/Day [...] to fax order to Dr Dempsey on [phone] Dempsey's office on [phone]. Will forward message to provider. RN called Roxanne and gave her the phone and fax number to Dr Dempsey's office and also to f/u when EMG order is placed by PCP. * Telephone Encounter - Machelle Adam RN - 10/03/2022 10:09 AM EST Return call placed to Haylie at [facility] neuroscience, spoke with Jumana who [...] 1:30 PM EST Tc from Haylie from [facility] med / rehab calling to inform they need more dx clarification for referral that was sent . and phone # [phone] documented in this encounter Plan of Treatment Not on file documented as of this encounter Visit Diagnoses Diagnosis Diabetic polyneuropathy associated with diabetes mellitus due to underlying condition (CMS/[facility])- Primary documented in this encounter Care Teams Hog Pusher Relationship Specialty Start Date End Date Rolanda Thakur MD [address] [place] [address] PCP - General Internal Medicine 09/19/22 documented as of this encounter
--- OUTSIDE RECORDS SUMMARY | 2024-11-23 08:57 | XMS_ITS | Encounter Summary ---
Author Organization [employer] Address [address] [place] [address] Care Team Providers Care Prototype Machine Operator Name Role Phone Rolanda Thakur MD Primary Care Provider +1- [phone] Reason for Visit * Reason Onset Date Comments FYI 10/11/2024 Encounter Details Date Type Department Care Team (Late st Contact Info) Description 10/11/2024 Telephone [facility] MEDICINE [address] [place] [address] Rolanda Thakur MD 505 [place] [address] FYI Social History Tobacco Use Types Packs/Day [...] documented as of this encounter Care Teams Prototype Machine Operator Relationship Specialty Start Date End Date Rolanda Thakur MD [address] [place] [address] PCP - General Internal Medicine 09/19/22 documented as of this encounter
--- OUTSIDE RECORDS SUMMARY | 2024-11-23 08:57 | XMS_ITS | Encounter Summary ---
Author Organization [employer] Address 75 [facility] 7 [place] [address] Care Team Providers Care Aircraft Instrument Tester Name Role Phone Rolanda Thakur MD Primary Care Provider +1- [phone] Reason for Visit * Reason Onset Date Comments Med Refill 08/19/2024 Encounter Details Date Type Department Care Team (Late st Contact Info) Description 08/19/2024 Refill [facility] [address] [place] [address] Wyatt Huizar MD 230 [place] [address] Neck pain on left side Social History [...] documented as of this encounter Care Teams Aircraft Instrument Tester Relationship Specialty Start Date End Date Rolanda Thakur MD [address] [place] [address] PCP - General Internal Medicine 09/19/22 documented as of this encounter
--- OUTSIDE RECORDS SUMMARY | 2024-11-23 08:57 | XMS_ITS | Encounter Summary ---
Author Organization [employer] Address [address] [place] [address] Care Team Providers Care Fur Tailor Name Role Phone Rolanda Thakur MD Primary Care Provider +1- [phone] Reason for Visit * Reason Onset Date Comments Nurse Triage 12/12/2023 Encounter Details Date Type Department Care Team (Late st Contact Info) Description 12/12/2023 Telephone [facility] MEDICINE 230 [place] [address] Rolanda Thakur MD 505 [place] [address] Nurse Triage Social History Tobacco Use Types [...] from pt requesting to speak to PCP showroom executive directormanager product design in regards to scheduled sick visit tmr, states was advised to contact PCP before scheduled appt to see how pt is doing, pt stated they still has a severe cough. Broadcast News Producer did advised appt is still expected. Pt is scheduled tmr 12/15/23 for ( chest congestion, cough , yellow nasal drainage. ) Please contact at [phone] * Telephone Encounter - Viktoria Schultz RN [...] point. Pt is advised to come to [facility] today to be seen since open till 8pm. PT is not sure if will be able to do that. Broadcast News Producer contacted Haylie Barrientos [facility] and asked if would be possible to schedule Pt at [facility] 12/15/23 340pm apt which Pt would [...] on filedocumented in this encounter Care Teams Fur Tailor Relationship Specialty Start Date End Date Rolanda Thakur MD [address] [place] [address] PCP - General Internal Medicine 09/19/22 documented as of this encounter
--- OUTSIDE RECORDS SUMMARY | 2024-11-23 08:57 | XMS_ITS | Encounter Summary ---
Author Organization [employer] Address [address] [place] [address] Care Team Providers Care Automobile Parts Assembler Name Role Phone Rolanda Thakur MD Primary Care Provider +1- [phone] Reason for Referral * Consultation (Routine) - Closed Specialty Diagnoses / Procedures Referred By Contac t Referred To Contact Podiatry Diagnoses Type 2 diabetes mellitus without complication, without long-term current use of insulin (CMS/HCC) Rolanda Thakur MD [address] [place] [address] Phone: tel: fax: Carl Avitia DPM Phone: tel: fax: Referral ID Status Reason Start Date Expiration Date V isits Requested Visits Authorized [id number] Closed Specialty Services Required 11/01/2023 10/31/2024 1 1 Encounter Details Date Type Department Care Team (Late st Contact Info) Description 10/23/2023 Orders Only [facility] CHC MED & PEDS 505 [place] [address] Rolanda Thakur MD [address] [place] [address] Acquired hypothyroidism (Primary Dx); Type 2 diabetes [...] (CMS/HCC) documented in this encounter Care Teams Automobile Parts Assembler Relationship Specialty Start Date End Date Rolanda Thakur MD [address] [place] [address] PCP - General Internal Medicine 09/19/22 documented as of this encounter
--- OUTSIDE RECORDS SUMMARY | 2024-11-23 08:57 | XMS_ITS | Encounter Summary ---
Author Organization [employer] Address [address] [place] [address] [place] [address] Care Team Providers Care Tanning Consultant Name Role Phone Rolanda Thakur MD Primary Care Provider +1- [phone] Encounter Details Date Type Department Care Team (Late st Contact Info) Description 10/27/2023 Telephone [facility] MEDICINE [address] [place] [address] [phone] Rolanda Thakur MD 505 [place] [address] Social History Tobacco Use Types Packs/Day Years [...] on filedocumented in this encounter Care Teams Tanning Consultant Relationship Specialty Start Date End Date Rolanda Thakur MD [address] [place] [address] PCP - General Internal Medicine 09/19/22 documented as of this encounter
--- OUTSIDE RECORDS SUMMARY | 2024-11-23 08:57 | XMS_ITS | Encounter Summary ---
Author Organization [employer] Address [address] [place] [address] Care Team Providers Care President + Publisher Name Role Phone Rolanda Thakur MD Primary Care Provider +1- [phone] Reason for Referral * Consultation (Routine) - Authorized Specialty Diagnoses / Procedures Referred By Contac t Referred To Contact Endocrinology Diagnoses Type 2 diabetes mellitus without complication, without long-term current use of insulin (CMS/HCC) Rolanda Thakur MD [address] [place] [address] Phone: tel: fax: [facility] [address] [place] [phone] Phone: tel: fax: Referral ID Status Reason Start Date Expiration Date Visits Requested Visits Authorized [id number] Authorized Specialty Services Required 08/26/2024 08/26/2025 1 1 Encounter Details Date Type Department Care Team (Late st Contact Info) Description 08/26/2024 Orders Only [facility] CHC MED & PEDS [address] [place] [address] [phone] Rolanda Thakur MD [address] [place] [address] Type 2 diabetes mellitus without complication, without [...] documented as of this encounter Care Teams President + Publisher Relationship Specialty Start Date End Date Rolanda Thakur MD 505 [place] [address] PCP - General Internal Medicine 09/19/22 documented as of this encounter
--- OUTSIDE RECORDS SUMMARY | 2024-11-23 08:57 | XMS_ITS | Encounter Summary ---
Author Organization [employer] Address [address] [place] [address] Care Team Providers Care Survey Research Professor Name Role Phone Rolanda Thakur MD Primary Care Provider Encounter Details Date Type Department Care Team ([facility] st Contact Info) Description 08/18/[address] [facility] CHC MED & PEDS 505 [place] [address] Rolanda Thakur MD 505 [place] [address] Social History Tobacco Use Types Packs/Day Years [...] on filedocumented in this encounter Care Teams Survey Research Professor Relationship Specialty Start Date End Date Rolanda Thakur MD 505 [place] [address] PCP - General Internal Medicine 09/19/22 documented as of this encounter
--- OUTSIDE RECORDS SUMMARY | 2024-11-23 08:57 | XMS_ITS | Clinical Summary ---
Author Organization [facility] Address [address] [place] [address] Care Team Providers Care Administrative Support Assoc Name Role Phone Maren Hough MD Primary Care Provider [phone] Social History Tobacco Use Types Packs/Day Years [...] Diabetes: Visual Foot Exam 06/19/2022 Influenza Vaccine (Season Ended) 2025 05/04/2009, 07/22/2008 Hepatitis B Vaccine Aged Out No longe r eligible based on patient's age to complete this topic Insurance [facility] MEDICARE [facility] MEDICARE Care Teams Administrative Support Assoc Relationship Specialty Start Date End Date Maren Hough MD [address] [place] [address] PCP - General Family Medicine 06/20/22
--- OUTSIDE RECORDS SUMMARY | 2024-11-23 08:57 | XMS_ITS | Encounter Summary ---
Author Organization [employer] Address [address] [place] [address] [place] [address] Care Team Providers Care Security Attendant Name Role Phone Rolanda Thakur MD Primary Care Provider Encounter Details Date Type Department Care Team ([facility] st Contact Info) Description 03/28/2024 Orders Only [facility] CHC MED & PEDS 505 [place], [place] [phone] Karen Alcantar MD 505 [place] [address] Social History Tobacco Use Types Packs/Day Years [...] on filedocumented in this encounter Care Teams Security Attendant Relationship Specialty Start Date End Date Rolanda Thakur MD 505 [place] [address] PCP - General Internal Medicine 09/19/22 documented as of this encounter
--- OUTSIDE RECORDS SUMMARY | 2024-11-23 08:57 | XMS_ITS | Encounter Summary ---
Author Organization [employer] Address [address] [place] [address] [place] [address] Care Team Providers Care Radiologist Chief Of Breast Imaging Name Role Phone Rolanda Thakur MD Primary Care Provider [phone]- [phone] Reason for Visit * Reason Onset Date Comments Referral 11/16/2023 Encounter Details Date Type Department Care Team ([facility] st Contact Info) Description 11/16/[address] [facility] CHC MED & PEDS 505 [place] [address] Rolanda Thakur MD 505 [place] [address] Referral Social History Tobacco Use Types Packs/Day [...] MyChart encounter. Any questions, contact pt at [phone] documented in this encounter Plan of Treatment Not on file documented as of this encounter Visit Diagnoses Not on filedocumented in this encounter Care Teams Radiologist Chief Of Breast Imaging Relationship Specialty Start Date End Date Rolanda Thakur MD [address] [place] [address] PCP - General Internal Medicine 09/19/22 documented as of this encounter
--- OUTSIDE RECORDS SUMMARY | 2024-11-23 08:57 | XMS_ITS | Encounter Summary ---
Author Organization [employer] Address [address] [place] [address] [place] [address] Care Team Providers Care Supervisor Nutritional Yeast Name Role Phone Rolanda Thakur MD Primary Care Provider +1- [phone] Encounter Details Date Type Department Care Team (Latest Contact Info) Description 08/17/2021 Abstract [facility] CONVERSIONS Dental, Provider, DDS Social [...] on filedocumented in this encounter Care Teams Supervisor Nutritional Yeast Relationship Specialty Start Date End Date Rolanda Thakur MD 505 [facility] [place] [address] PCP - General Internal Medicine 09/19/22 documented as of this encounter
--- OUTSIDE RECORDS SUMMARY | 2024-11-23 08:57 | XMS_ITS | Encounter Summary ---
Author Organization [employer] Address [address] [place] [address] Care Team Providers Care Dumpling Machine Operator Name Role Phone Rolanda Thakur MD Primary Care Provider [phone]- [phone] Reason for Visit * Reason Onset Date Comments Call Back Request 11/17/2023 Encounter Details Date Type Department Care Team ([facility] st Contact Info) Description 11/17/2023 Telephone [facility] MEDICINE 230 [place] [address] Rolanda Thakur MD 505 [place] [address] Call Back Request Social History Tobacco Use [...] Message sent to PCP for review through [employer] portal * Telephone Encounter - Jenny Neff - 11/17/2023 8:06 AM EDT Tc from pt requesting a call back pt stated needs more information and clarifications 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 Please contact pt. documented in this encounter Plan of Treatment Not on file documented as of this encounter Visit Diagnoses Not on filedocumented in this encounter Care Teams Dumpling Machine Operator Relationship Specialty Start Date End Date Rolanda Thakur MD [address] [place] [address] PCP - General Internal Medicine 09/19/22 documented as of this encounter
--- OUTSIDE RECORDS SUMMARY | 2024-11-23 08:57 | XMS_ITS | Encounter Summary ---
Author Organization [employer] Address [address] [place] [address] Care Team Providers Care Production Metal Sprayer Name Role Phone Rolanda Thakur MD Primary Care Provider +1- [phone] Encounter Details Date Type Department Care Team ([facility] st Contact Info) Description 12/28/2023 Orders Only [facility] CHC MED & PEDS [address] [place] [address] Rolanda Thakur MD 505 [place] [address] Social History Tobacco Use Types Packs/Day Years [...] on filedocumented in this encounter Care Teams Production Metal Sprayer Relationship Specialty Start Date End Date Rolanda Thakur MD [address] [place] [address] PCP - General Internal Medicine 09/19/22 documented as of this encounter
--- OUTSIDE RECORDS SUMMARY | 2024-11-23 08:57 | XMS_ITS | Encounter Summary ---
Author Organization [employer] Address [address] [place] [address] [place] [address] Care Team Providers Care Clinical Assessment Manager Name Role Phone Rolanda Thakur MD Primary Care Provider +1- [phone] Encounter Details Date Type Department Care Team (Late st Contact Info) Description 12/07/2023 Telephone [facility] MEDICINE [address] [place] [phone] Rolanda Thakur MD 505 [place] [address] Social History Tobacco Use Types Packs/Day Years [...] filedocumented in this encounter Care Teams Clinical Assessment Manager Relationship Specialty Start Date End Date Rolanda Thakur MD [address] [place] [address] PCP - General Internal Medicine 09/19/22 documented as of this encounter
--- OUTSIDE RECORDS SUMMARY | 2024-11-23 08:57 | XMS_ITS | Encounter Summary ---
Author Organization [employer] Address 75 [facility] 7 [place] [address] Care Team Providers Care Human Services Instructor Name Role Phone Rolanda Thakur MD Primary Care Provider +1- [phone] Encounter Details Date Type Department Care Team ([facility] Contact Info) Description 10/08/2024 Telephone [facility] CHC MED & PEDS 505 [place] [address] Rolanda Thakur MD 505 [place] [address] Social History Tobacco Use Types Packs/Day Years [...] documented as of this encounter Care Teams Human Services Instructor Relationship Specialty Start Date End Date Rolanda Thakur MD [address] [place] [address] PCP - General Internal Medicine 09/19/22 documented as of this encounter
--- OUTSIDE RECORDS SUMMARY | 2024-11-23 08:57 | XMS_ITS | Encounter Summary ---
Author Organization [employer] Address 75 [facility] [place] [address] Care Team Providers Care Career Development Director Name Role Phone Rolanda Thakur MD Primary Care Provider +1- [phone] Reason for Visit * Reason Onset Date Comments Nurse Triage 08/09/2024 Encounter Details Date Type Department Care Team (Late st Contact Info) Description 08/09/2024 Telephone [facility] MEDICINE 230 [place] [address] Rolanda Thakur MD 505 [place] [address] Nurse Triage Social History Tobacco Use Types [...] precautions and reasons to call back. Reviewed [facility] operating hours and that wait times vary. Protocol Used: Neck Pain or Stiffness (Adult) Protocol-Based Disposition: See in Office or Video Visit Today or Tomorrow Future Appointments Date Time Provider Department Center 08/10/2024 9:40 AM [facility] 2 WALK-IN [facility] Insurance verified as active per Real Time Eligibility in [facility]. Positive Triage Question: * Tenderness in front [...] documented as of this encounter Care Teams Career Development Director Relationship Specialty Start Date End Date Rolanda Thakur MD [address] [place] [address] PCP - General Internal Medicine 09/19/22 documented as of this encounter
--- OUTSIDE RECORDS SUMMARY | 2024-11-23 08:57 | XMS_ITS | Encounter Summary ---
Author Organization [employer] Address [address] [place] [address] Care Team Providers Care Booster Pump Operator Name Role Phone Rolanda Thakur MD Primary Care Provider +1- [phone] Reason for Visit * Reason Onset Date Comments Med Refill 10/27/2023 Encounter Details Date Type Department Care Team (Late st Contact Info) Description 10/27/2023 Telephone [facility] MEDICINE 230 [place] [address] Rolanda Thakur MD 505 [place] [address] Med Refill Social History Tobacco Use Types [...] on medication 125 Please contact pt @ [phone] No meds. * Telephone Encounter - Haylie Cantor RN - 10/27/2023 3:44 PM EST Patient reporting alternating days of synthroid 125 mcg and synthroid 137 mcg. Requesting new script for synthroid 125 mcg. Please review and advise, thanks. Tc from pt requesting levothyroxine (Synthroid) 125 MCG tablet, tag writer do not see med in chart but pt stated has been taking this medication for 10 years, pt switch 137 and 125 every day, tag writer attempted to contact pharmacy for clarifications but [facility] [address] open at 9:00AM. * Telephone Encounter - Jenny Neff - 10/27/2023 8:31 AM EST Tc from pt requesting levothyroxine (Synthroid) 125 MCG tablet, tag writer do not see med in chart but pt stated has been taking this medication for 10 years, pt switch 137 and 125 every day, tag writer attempted to contact pharmacy for clarifications but [facility] [address] open at 9:00AM. documented in this encounter Plan of Treatment Not on file documented as of this encounter Visit Diagnoses Not on filedocumented in this encounter Care Teams Booster Pump Operator Relationship Specialty Start Date End Date Rolanda Thakur MD [address] [place] [address] PCP - General Internal Medicine 09/19/22 documented as of this encounter
--- OUTSIDE RECORDS SUMMARY | 2024-11-23 08:57 | XMS_ITS | Encounter Summary ---
Author Organization [employer] Address [address] [place] [address] Care Team Providers Care Electronic Bench Technician Name Role Phone Rolanda Thakur MD Primary Care Provider +1- [phone] Reason for Referral * Consultation (Routine) - Authorized Specialty Diagnoses / Procedures Referred By Contac t Referred To Contact Endocrinology Diagnoses Type 2 diabetes mellitus without complication, without long-term current use of insulin (CMS/HCC) Benign essential hypertension Rolanda Thakur MD 505 [place] [address] Phone: tel: fax: [facility] [address] [place] [address] Phone: tel: fax: Referral ID Status Reason Start Date Expiration Date Visits Requested Visits Authorized [id number] Authorized Specialty Services Required 11/07/2024 11/07/2025 1 1 Encounter Details Date Type Department Care Team (Late st Contact Info) Description 11/07/2024 Orders Only [facility] MEDICINE [address] [place] [address] Rolanda Thakur MD 505 [place] [address] Type 2 diabetes mellitus without complication, without [...] use of insulin (CMS/HCC) Benign essential hypertension Expected: 11/07/2024 (Approximate), Expires: 11/07/2025 documented as of this encounter Visit Diagnoses Diagnosis Type 2 diabetes mellitus without complication, without long-term current use of insulin (CMS/HCC)- Primary Benign essential hypertension Essential hypertension, benign documented in this encounter Additional Health Concerns Assessment Noted Time PHQ-9 Depression Total Score: 2 05/13/20 24 9:24 AM EDT documented as of this encounter Care Teams Electronic Bench Technician Relationship Specialty Start Date End Date Rolanda Thakur MD [address] [place] [address] PCP - General Internal Medicine 09/19/22 documented as of this encounter
--- OUTSIDE RECORDS SUMMARY | 2024-11-23 08:57 | XMS_ITS | Encounter Summary ---
Author Organization [employer] Address [address] [place] [address] [facility] [place] [address] Care Team Providers Care Bottle Packer Name Role Phone Rolanda Thakur MD Primary Care Provider [phone] Reason for Referral * Consultation (Routine) - Closed Specialty Diagnoses / Procedures Referred By Freddy meadows Referred To Contact Neurology Diagnoses Other polyneuropathy Rolanda Thakur MD [address] [place] [address] Phone: tel: fax: [facility] Neurology [address] [place], [place] Phone: tel: fax: Referral ID Status Reason Start Date Expiration Date V isits Requested Visits Authorized [id number] Closed Specialty Services Required 11/22/2023 11/21/2024 1 1 * Consultation (Routine) - Closed Specialty Diagnoses / Procedures Referred By Freddy meadows Referred To Contact Physiatry Diagnoses Other polyneuropathy Rolanda Thakur MD [address] [place] [address] Phone: tel: fax: Referral ID Status Reason Start Date Expiration Date V isits Requested Visits Authorized [id number] Closed Specialty Services Required 11/17/2023 11/16/2024 1 1 Encounter Details Date Type Department Care Team (Late st Contact Info) Description 11/16/2023 Orders Only [facility] CHC MED & PEDS [address] [place] [address] Rolanda Thakur MD [address] [place] [address] Other polyneuropathy (Primary Dx) Social History Tobacco [...] Primary documented in this encounter Care Teams Bottle Packer Relationship Specialty Start Date End Date Rolanda Thakur MD [address] [place] [address] PCP - General Internal Medicine 09/19/22 documented as of this encounter
--- OUTSIDE RECORDS SUMMARY | 2024-11-23 08:57 | XMS_ITS | Encounter Summary ---
Author Organization [employer] Address [address] [place] [address] [place] [address] Care Team Providers Care Lawn And Garden Technician Name Role Phone Rolanda Thakur MD Primary Care Provider Encounter Details Date Type Department Care Team ([facility] st Contact Info) Description 01/22/2024 Orders Only [facility] CHC MED & PEDS [address] [place] [address] Rolanda Thakur MD [address] [place] [address] Benign essential hypertension Social History Tobacco Use [...] AM EDT Narrative 02/19/2024 12:38 PM EDT ?[facility] ?[address] ?[place] [address] ?XRay Report ? Signed ? Patient: Angely Pineda ?MR#: [id number] ? : 1950 ?Acct:[id number] ? Age/Sex: 73 / F ?ADM Date: 02/19/24 ? Loc: HO.HHCX ? Attending Dr: Migdalia PALMER ? Ordering Physician: Migdalia Loza ?? Date of Service: 02/19/24 ?? Procedure(s): XR toe RT min 2V ?? Accession Number(s): [id number] ? cc: Migdalia Loza ? EXAMINATION: ?? [...] 1234 ? DD/ 112 ? TD/TT: ? University Professor: SS ? Procedure Note Darrell Fonseca - 02/19/2024 [facility] [address] [place] [address] XRay Report Signed Patient: Angely Pineda#: [id number] : 1Acct:[id number] Age/Sex: 73 / FADM Date: 02/19/24 Loc: HO.HHCX Attending Dr: Migdalia PALMER Ordering Physician: Migdalia Loza Date of Service: 02/19/24 Procedure(s): XR toe RT min 2V Accession Number(s): [id number] cc: Migdalia Loza EXAMINATION: BILATERAL TOES CLINICAL [...] MD Signed By: <Electronically signed by Billy Mosqeuda MD in OV> 02/19/24 1234 DD/ 1122 TD/TT: University Professor: SS Migdalia PALMER IMG XR PROCEDURES Edited Resul t - Final documented in this encounter Visit Diagnoses Diagnosis Benign essential hypertension Essential hypertension, benign documented in this encounter Care Teams Lawn And Garden Technician Relationship Specialty Start Date End Date Rolanda Thakur MD [address] [place] [phone] PCP - General Internal Medicine 09/19/22 documented as of this encounter
--- OUTSIDE RECORDS SUMMARY | 2024-11-23 08:57 | XMS_ITS | Encounter Summary ---
Author Organization [employer] Address [address] [place] [address] [place] [address] Care Team Providers Care Data Base Design Analyst Name Role Phone Rolanda Thakur MD Primary Care Provider Reason for Visit * Reason Onset Date Comments Medication Question 12/09/2022 Encounter Details Date Type Department Care Team ([facility] st Contact Info) Description 12/09/2022 Telephone [facility] CHC MED & PEDS [address] [place] [address] Rolanda Thakur MD [address] [place] [address] Medication Question Social History Tobacco Use Types [...] Notes * Telephone Encounter - Hannah Richmond sAia - 12/09/2022 3:51 PM EDT Tc from [facility] requesting a clarification in new script for Synthroid 50 MCG tablet if dosage was sent incorrectly because in last script (levothyroxine (Synthroid) 150 MCG tablet) it leb211 MCG and New script is it 50 mcg so pharmacy is requesting some clarification Please contact Pharmacy at [phone] documented in this encounter Plan of Treatment Not on file documented as of this encounter Visit Diagnoses Not on filedocumented in this encounter Care Teams Data Base Design Analyst Relationship Specialty Start Date End Date Rolanda Thakur MD [address] [place] [phone] PCP - General Internal Medicine 09/19/22 documented as of this encounter
--- OUTSIDE RECORDS SUMMARY | 2024-11-23 08:57 | XMS_ITS | Encounter Summary ---
Author Organization [employer] Address [address] [facility] 7 [place] [address] Care Team Providers Care Valet Runner Name Role Phone Rolanda Thakur MD Primary Care Provider [phone]- [phone] Reason for Visit * Reason Onset Date Comments Durable Medical Equipment 04/29/2024 Encounter Details Date Type Department Care Team (Late st Contact Info) Description 04/29/2024 Telephone [facility] MEDICINE [address] [place] [address] Rolanda Thakur MD [address] [place] [address] Durable Medical Equipment Social History Tobacco Use [...] - 04/29/2024 3:34 PM EDT Tc from [facility] stating pt is requesting blood pressure monitor but they don't have a script. If any questions you can contact [facility] at [phone]. documented in this encounter Plan of Treatment Not on file documented as of this encounter Visit Diagnoses Not on filedocumented in this encounter Care Teams Valet Runner Relationship Specialty Start Date End Date Rolanda Thakur MD [address] [place] [address] PCP - General Internal Medicine 09/19/22 documented as of this encounter
--- OUTSIDE RECORDS SUMMARY | 2024-11-23 08:57 | XMS_ITS | Encounter Summary ---
Author Organization [employer] Address [address] [place] [address] Care Team Providers Care Web Marketing Coordinator Name Role Phone Rolanda Thakur MD Primary Care Provider [phone]- [phone] Reason for Referral * Consultation (Routine) - Canceled Specialty Diagnoses / Procedures Referred By Contac t Referred To Contact Endocrinology Diagnoses Type 2 diabetes mellitus without complication, without long-term current use of insulin (CMS/HCC) Rolanda Thakur MD [address] [place] [address] Phone: tel: fax: Referral ID Status Reason Start Date Expiration Date Visits Requested Visits Authorized [id number] Canceled Specialty Services Required 10/08/2024 10/08/2025 1 1 Encounter Details Date Type Department Care Team (Late st Contact Info) Description 10/08/2024 Orders Only [facility] CHC MED & PEDS [address] [place] [address] Rolanda Thakur MD [address] [place], [place] [phone] Type 2 diabetes mellitus without complication, without [...] without long-term current use of insulin ([facility]) Expected: 10/08/2024 (Approximate), Expires: 10/08/2025 Scheduled Referrals Name Type Priority Associated Diagnoses Order Schedule Referral to Endocrinology Outpatient Referral Routine Type 2 diabetes mellitus without complication, without long-term current use of insulin ([facility]) Expected: 10/08/2024 (Approximate), Expires: 10/08/2025 documented as of this encounter Visit Diagnoses Diagnosis Type 2 diabetes mellitus without complication, without long-term current use of insulin ([facility])- Primary documented in this encounter Additional Health Concerns Assessment Noted Time PHQ-9 Depression Total Score: 2 05/13/20 24 9:24 AM EDT documented as of this encounter Care Teams Web Marketing Coordinator Relationship Specialty Start Date End Date Rolanda Thakur MD [address] [place] [phone] PCP - General Internal Medicine 09/19/22 documented as of this encounter
--- OUTSIDE RECORDS SUMMARY | 2024-11-23 08:57 | XMS_ITS | Encounter Summary ---
Author Organization [employer] Address [address] [place] [address] [place] [address] Care Team Providers Care Inking Machine Tender Name Role Phone Rolanda Thakur MD Primary Care Provider [phone]- [phone] Encounter Details Date Type Department Care Team (Late st Contact Info) Description 12/07/2023 Telephone [facility] MEDICINE [address] [place] [phone] Rolanda Thakur MD [address] [place] [address] Social History Tobacco Use Types Packs/Day Years [...] on filedocumented in this encounter Care Teams Inking Machine Tender Relationship Specialty Start Date End Date Rolanda Thakur MD [address] [place] [address] PCP - General Internal Medicine 09/19/22 documented as of this encounter
--- OUTSIDE RECORDS SUMMARY | 2024-11-23 08:57 | XMS_ITS | Encounter Summary ---
Author Organization [employer] Address [address] [place] [address] Care Team Providers Care Spring Tacker Name Role Phone Rolanda Thakur MD Primary Care Provider [phone]- [phone] Reason for Visit * Reason Onset Date Comments Nurse Triage 01/03/2024 Encounter Details Date Type Department Care Team (Late st Contact Info) Description 01/03/2024 Telephone [facility] MEDICINE [address] [place] [address] Rolanda Thakur MD [address] [place] [address] Nurse Triage Social History Tobacco Use Types [...] on filedocumented in this encounter Care Teams Spring Tacker Relationship Specialty Start Date End Date Rolanda Thakur MD [address] [place] [address] PCP - General Internal Medicine 09/19/22 documented as of this encounter
--- OUTSIDE RECORDS SUMMARY | 2024-11-23 08:57 | XMS_ITS | Encounter Summary ---
Author Organization [employer] Address [address] [place] [address] Care Team Providers Care Bisque Ware Dipper Name Role Phone Rolanda Thakur MD Primary Care Provider [phone]- [phone] Encounter Details Date Type Department Care Team ([facility] st Contact Info) Description 10/27/2023 Orders Only [facility] CHC MED & PEDS [address] [place] [address] Bhavesh Yang, RN [address] [place], [place] Social History Tobacco Use Types Packs/Day [...] on filedocumented in this encounter Care Teams Bisque Ware Dipper Relationship Specialty Start Date End Date Rolanda Thakur MD [address] [place] [address] PCP - General Internal Medicine 09/19/22 documented as of this encounter
--- OUTSIDE RECORDS SUMMARY | 2024-11-23 08:57 | XMS_ITS | Encounter Summary ---
Author Organization [employer] Address [address] [place] [place] [address] Care Team Providers Care Marketing And Communications Officer Name Role Phone Rolanda Thakur MD Primary Care Provider [phone]- [phone] Reason for Visit * Reason Onset Date Comments Medication Question 10/23/2023 Encounter Details Date Type Department Care Team (Late st Contact Info) Description 10/23/2023 Telephone [facility] MEDICINE [address] [place] [address] Rolanda Thakur MD [address] [place], [place] [phone] Medication Question Social History Tobacco Use Types [...] on filedocumented in this encounter Care Teams Marketing And Communications Officer Relationship Specialty Start Date End Date Rolanda Thakur MD [address] [place] [address] PCP - General Internal Medicine 09/19/22 documented as of this encounter
--- OUTSIDE RECORDS SUMMARY | 2024-11-23 08:57 | XMS_ITS | Encounter Summary ---
Author Organization [employer] Address [address] [place] [address] 7 [place] [address] Care Team Providers Care President Er[employer] Consulting Name Role Phone Rolanda Thakur MD Primary Care Provider +1- [phone] Encounter Details Date Type Department Care Team ([facility] st Contact Info) Description 09/23/[address] [facility] CHC MED & PEDS [address] [place] [address] Rolanda Thakur MD [address] [place] [address] Acquired hypothyroidism (Primary Dx); Benign essential hypertension [...] 3 - 16 ng/dLTHIS TEST WAS PERFORMED AT:[facility] [id number] [place] [id number] PEDERSEN MD,PHD Plasma Renin Activity 0.52 0.25 - 5.82 ng/mL/h [facility] Aldosterone/Renin Ratio 3.8 0.9 - 28.9 Ratio [facility] Comment:This test was develo ped and its analytical performancecharacteristics have been determined by [employer] [place], [place]. It hasnot been cleared or approved by the U.S. Food and DrugAdministration. This assay has been validated pursuantto the CLIA regulations and is used for clinicalpurposes.THIS TEST WAS PERFORMED AT:[id number] [place] [id number] PEDERSEN MD,PHD Blood Venous blood specimen / Unknown 09/24/2024 1:40 PM EST 09/24/2024 4:21 PM EST us Rolanda Thakur MD LAB BLOOD ORDERABLES Final Result [facility] [address] [place] [phone] * TSH W/Reflex to FT4 (09/24/2024 1:40 PM EST) TSH reflex Free T4 0.38 0.32 - 4.0 uIU/mL [facility] Blood Venous blood specimen / Unknown 09/24/2024 1:40 PM EST 09/24/2024 4:21 PM EST us Rolanda Thakur MD LAB BLOOD ORDERABLES Final Result Performing Organization Address [facility] Co de Phone Number [facility] [address] [place] [phone] * (ABNORMAL) Basic Metabolic Panel, Fasting (09/24/2024 1:40 PM EST) Sodium 139 135 - 145 mmol/L [facility] Potassium 3.8 3.3 - 5.1 mmol/L [facility] Chloride 106 96 - 108 mmol/L [facility] Carbon Dioxide 22 22 - 29 mmol/L [facility] Anion Gap 15 12 - 20 [facility] Urea Nitrogen (BUN) 13 9 - 16 mg/dL [facility] Creatinine, Serum 0.94 0.5 - 1.4 mg/dL [facility] Estimated Glomerular Filt Rate 58 [facility] Comment:Chronic Kidney Disea se: Estimated GFR < 60 mL/min/[id number] Kidney Disease: Estimated GFR < 15 mL/min/1.73m2 Glucose Fasting 169(H) 60 - 99 mg/dL [facility] Comment:A fasting glucose of 126 mg/dl or greater on more than oneoccasion is considered diagnostic of diabetes. Calcium 9.9 8.4 - 10.2 mg/dL [facility] Blood Venous blood specimen / Unknown 09/24/2024 1:40 PM EST 09/24/2024 4:21 PM EST us Rolanda Thakur MD LAB BLOOD ORDERABLES Final Result Performing Organization Address [facility]/ZIP Co de Phone Number [facility] [address] [place] [phone] * (ABNORMAL) CBC auto differential (09/24/2024 1:40 PM EST) White Blood Count 7.0 4.8 - 10.8 X10*3/uL [facility] Red Blood Count 4.23 4.20 - 5.50 X10*6/uL [facility] Hemoglobin 12.6 12.0 - 16.0 g/dl [facility] Hematocrit 37.0 37.0 - 47.0 % [facility] Mean Corpuscular Volume 87.5 80.0 - 98.0 fL [facility] Mean Corpuscular Hemoglobin 29.8 27.0 - 33.0 pg [facility] Mean Corpuscular HGB Conc 34.1 31.0 - 35.0 g/dl [facility] Red Cell Distribution Width 12.8 11.0 - 16.0 % [facility] Platelet Count 251 160 - 400 X10*3/uL [facility] Mean Platelet Volume 9.5 9.4 - 12.3 fL [facility] Neutrophils Percent Auto 59.8 45 - 73 % [facility] Imm Gran Pct Auto 0.3 0.0 - 0.4 % [facility] Lymphocytes Percent Auto 26.1 20 - 40 % [facility] Monocytes Percent Auto 8.6 2 - 11 % [facility] Eosinophils Percent Auto 4.3(H) 0 - 4 % [facility] Basophils Percent Auto 0.9 0 - 2 % [facility] NRBC Pct Auto 0.0 0.0 - 0.2 /100WBC [facility] Neutrophils Absolute Auto 4.2 2.0 - 8.3 x10*3/uL [facility] Imm Gran Abs Auto 0.02 0.00 - 0.03 X10*3/uL [facility] Lymphocytes Absolute Auto 1.8 1.2 - 4.9 X10*3/uL [facility] Monocytes Absolute Auto 0.6 0.1 - 1.2 X10*3/uL [facility] Eosinophils Absolute Auto 0.3 0.0 - 0.4 X10*3/uL [facility] Basophils Absolute Auto 0.1 0.0 - 0.2 X10*3/uL [facility] NRBC Abs Auto 0.000 0.0 - 0.012 X10*3/uL [facility] Blood Venous blood specimen / Unknown 09/24/2024 1:40 PM EST 09/24/2024 4:21 PM EST Rolanda Thakur MD LAB BLOOD ORDERABLES Final Result [facility] [address] [place] [phone] [phone] documented in this encounter Visit Diagnoses Diagnosis Acquired hypothyroidism- Primary Unspecified hypothyroidism Benign essential hypertension Essential hypertension, benign documented in this encounter Additional Health Concerns Assessment Noted Time PHQ-9 Depression Total Score: 2 05/13/20 24 9:24 AM EDT documented as of this encounter Care Teams President [employer] Consulting Relationship Specialty Start Date End Date Rolanda Thakur MD [address] [place] [phone] PCP - General Internal Medicine 09/19/22 documented as of this encounter
[2024-11-23 11:42] LABS: MANUAL DIFF FLAG NO
[2024-11-23 11:59] LABS: Anion Gap 12 (12-20); Blood Urea Nitrogen 21 mg/dL (9-16); Calcium 10.2 mg/dL (8.4-10.2); Carbon Dioxide 24 mmol/L (22-29); Chloride 103 mmol/L (96-108); Estimated Glomerular Filt Rate > 60; Glucose Random 161 mg/dL (60-115); Potassium 4.4 mmol/L (3.3-5.1); Sodium 135 mmol/L (135-145)
[2024-11-23 12:05] LABS: Basophils Absolute Auto 0.1 X10*3/uL (0.0-0.2); Basophils Percent Auto 0.8 % (0-2); Eosinophils Absolute Auto 0.4 X10*3/uL (0.0-0.4); Eosinophils Percent Auto 4.7 % (0-4); Hemoglobin 12.8 g/dl (12.0-16.0); Imm Gran Abs Auto 0.03 X10*3/uL (0.00-0.03); Imm Gran Pct Auto 0.4 % (0.0-0.4); Lymphocytes Percent Auto 23.8 % (20-40); Mean Corpuscular HGB Conc 34.6 g/dl (31.0-35.0); Mean Corpuscular Volume 86.7 fL (80.0-98.0); Mean Platelet Volume 9.1 fL (9.4-12.3); Monocytes Absolute Auto 0.5 X10*3/uL (0.1-1.2); Monocytes Percent Auto 5.9 % (2-11); Neutrophils Absolute Auto 5.4 x10*3/uL (2.0-8.3); Neutrophils Percent Auto 64.4 % (45-73); Platelet Count 269 X10*3/uL (160-400); Red Blood Count 4.27 X10*6/uL (4.20-5.50); Red Cell Distribution Width 13.1 % (11.0-16.0); White Blood Count 8.5 X10*3/uL (4.8-10.8)
== END 2024-11-23 08:54 | disposition home or self-care (01) ==
LOC: HO.HMGCLDS 08:53
PROVIDERS: PCP Internal Medicine; Visit Provider Internal Medicine
DX: E11.9 Type 2 diabetes mellitus without complications (principal); R39.9 Unspecified symptoms and signs involving the genitourinary system
CPT/HCPCS: 36415; 80048; 85025; 87086

== ENCOUNTER 2024-11-26 11:48 | Outpatient (REF) | payer MEDICARE, SELFPAY ==
[2024-11-27 12:33] LABS: Appearance Urine Clear; Color Urine Yellow; Glucose Urine UA Negative (Negative); Leukocyte Esterase Urine Negative (Negative); Nitrite Urine Negative (Negative); Specific Gravity - Urine <= 1.005 (1.005-1.025); Urine Blood Negative (Negative); Urine Ketones Negative (Negative); Urine Protein Negative (Neg-Trace)
--- OUTSIDE RECORDS SUMMARY | 2024-11-27 13:54 | XMS_ITS | Encounter Summary ---
Author Organization [employer] Address [address] [place] [address] [place] [address] Care Team Providers Care Container Crane Operator Name Role Phone Rolanda Thakur MD Primary Care Provider +1- [phone] Reason for Visit * Reason Onset Date Comments CT scan order 07/03/2024 Encounter Details Date Type Department Care Team ([facility] Contact Info) Description 07/03/2024 Telephone [facility] CHC MED & PEDS [address] [place] [address] Rolanda Thakur MD [address] [place] [address] CT scan order Social History Tobacco Use [...] incorrect location. Pt prefers being seen in [facility]. Please call pt to clarify. documented in this encounter Plan of Treatment Not on file documented as of this encounter Visit Diagnoses Not on filedocumented in this encounter Additional Health Concerns Assessment Noted Time PHQ-9 Depression Total Score: 2 05/13/20 24 9:24 AM EDT documented as of this encounter Care Teams Container Crane Operator Relationship Specialty Start Date End Date Rolanda Thakur MD [address] [place] [phone] PCP - General Internal Medicine 09/19/22 documented as of this encounter
--- OUTSIDE RECORDS SUMMARY | 2024-11-27 13:54 | XMS_ITS | Encounter Summary ---
Author Organization [employer] Address [address] [facility] 7 [place] [address] Care Team Providers Care Printing Assistant Name Role Phone Rolanda Thakur MD Primary Care Provider +1- [phone] Reason for Visit * Reason Onset Date Comments FYI 11/19/2024 Encounter Details Date Type Department Care Team (Late st Contact Info) Description 11/19/2024 Telephone [facility] 230 [place] [address] Rolanda Thakur MD 505 [place] [address] FYI Social History Tobacco Use Types Packs/Day [...] as of this encounter Care Teams Printing Assistant Relationship Specialty Start Date End Date Rolanda Thakur MD [address] [place] [phone] PCP - General Internal Medicine 09/19/22 documented as of this encounter
--- OUTSIDE RECORDS SUMMARY | 2024-11-27 13:54 | XMS_ITS | Encounter Summary ---
Author Organization [employer] Address [address] [place] [address] [place] [address] Care Team Providers Care Ratoprinter Name Role Phone Rolanda Thakur MD Primary Care Provider +1- [phone] Reason for Visit * Reason Onset Date Comments Referral 05/18/2023 Encounter Details Date Type Department Care Team ([facility] st Contact Info) Description 05/18/2023 Telephone [facility] CHC MED & PEDS [address] [place] [address] Rolanda Thakur MD 505 [place] [address] Referral Social History Tobacco Use Types Packs/Day [...] used to see Dr. Chad Dempsey from [facility] butnow the office doesn't take her [...] advise. Also sent you her response from [facility]. Thanks. * Telephone Encounter - Annabella Peña [...] to Specialty: ([facility]) Dr nolasco Date&Time: N/a Grand Scribe: n/a Please call pt to clarify documented in this encounter Plan of Treatment Not on file documented as of this encounter Visit Diagnoses Not on filedocumented in this encounter Care Teams Ratoprinter Relationship Specialty Start Date End Date Rolanda Thakur MD [address] [place] [phone] PCP - General Internal Medicine 09/19/22 documented as of this encounter
--- OUTSIDE RECORDS SUMMARY | 2024-11-27 13:55 | XMS_ITS | Encounter Summary ---
Author Organization [employer] Address [address] [place] [address] [place] [address] Care Team Providers Care Certified Meeting Professional Name Role Phone Rolanda Thakur MD Primary Care Provider [phone] Encounter Details Date Type Department Care Team ([facility] st Contact Info) Description 05/16/2023 Orders Only [facility] CHC MED & PEDS [address] [place] [address] Rolanda Thakur MD [address] [place] [address] Bilateral leg paresthesia (Primary Dx); Anxiety; Diabetic [...] Vitamin B6 16.0 2.1 - 21.7 ng/mL [facility] Comment:Vitamin supplementat ion within 24 hours prior toblood draw may affect the accuracy of the results.This test was developed and its analytical performancecharacteristics have been determined by [employer] [place], [place]. It hasnot been cleared or approved by the U.S. Food and DrugAdministration. This assay has been validated pursuantto the CLIA regulations and is used for clinicalpurposes.THIS TEST WAS PERFORMED AT:[employer]/[facility] [place] [address]RBKZKRJTHEO PEDERSEN MD,PHD Blood Venous blood specimen / Unknown 10/10/2023 12:50 PM EST 10/10/2023 2:41 PM EST us Rolanda Thakur MD LAB BLOOD ORDERABLES Final Result [facility] [address] [place] [address] [phone] * (ABNORMAL) Vitamin B12 (10/10/2023 12:50 PM EST) Vitamin B12 1,388(H) 200 - 900 pg/mL [facility] Comment:NORMAL 200-900 PG/ML INDETERMINATE 160-199 PG/ML DEFICIENT < 160 PG/ML Blood Venous blood specimen / Unknown 10/10/2023 12:50 PM EST 10/10/2023 2:41 PM EST Rolanda Thakur MD LAB BLOOD ORDERABLES Final Result Performing Organization Address City/[facility]/ZIP Co de Phone Number [facility] [address] [place] [phone] [phone] * TSH W/Reflex to FT4 (10/10/2023 12:50 PM EST) Pathologist [facility] TSH reflex Free T4 0.35 0.32 - 4.0 uIU/mL [facility] Blood 10/10/2023 12:5 0 PM EST 10/10/2023 2:41 PM EST us Rolanda Thakur MD LAB BLOOD ORDERABLES Final Result Performing Organization Address [facility]/ZIP Co de Phone Number [facility] [address] [place] [phone] * (ABNORMAL) CBC auto differential (10/10/2023 12:50 PM EST) White Blood Count 8.0 4.8 - 10.8 X10*3/uL [facility] Red Blood Count 4.19(L) 4.20 - 5.50 X10*6/uL [facility] Hemoglobin 12.3 12.0 - 16.0 g/dl [facility] Hematocrit 36.6(L) 37.0 - 47.0 % [facility] Mean Corpuscular Volume 87.4 80.0 - 98.0 fL [facility] Mean Corpuscular Hemoglobin 29.4 27.0 - 33.0 pg [facility] Mean Corpuscular HGB Conc 33.6 31.0 - 35.0 g/dl [facility] Red Cell Distribution Width 12.8 11.0 - 16.0 % [facility] Platelet Count 252 160 - 400 X10*3/uL [facility] Mean Platelet Volume 9.5 9.4 - 12.3 fL [facility] Neutrophils Percent Auto 55.5 45 - 73 % [facility] Imm Gran Pct Auto 0.4 0.0 - 0.4 % [facility] Lymphocytes Percent Auto 31.3 20 - 40 % [facility] Monocytes Percent Auto 6.0 2 - 11 % [facility] Eosinophils Percent Auto 5.9(H) 0 - 4 % [facility] Basophils Percent Auto 0.9 0 - 2 % [facility] NRBC Pct Auto 0.0 0.0 - 0.2 /100WBC [facility] Neutrophils Absolute Auto 4.5 2.0 - 8.3 x10*3/uL [facility] Imm Gran Abs Auto 0.03 0.00 - 0.03 X10*3/uL [facility] Lymphocytes Absolute Auto 2.5 1.2 - 4.9 X10*3/uL [facility] Monocytes Absolute Auto 0.5 0.1 - 1.2 X10*3/uL [facility] Eosinophils Absolute Auto 0.5(H) 0.0 - 0.4 X10*3/uL [facility] Basophils Absolute Auto 0.1 0.0 - 0.2 X10*3/uL [facility] NRBC Abs Auto 0.000 0.0 - 0.012 X10*3/uL [facility] Blood Venous blood specimen / Unknown 10/10/2023 12:50 PM EST 10/10/2023 2:41 PM EST us Rolanda Thakur MD LAB BLOOD ORDERABLES Final Result [facility] [address] [place] [phone] [phone] documented in this encounter Visit Diagnoses Diagnosis Bilateral leg paresthesia- Primary Disturbance of skin sensation Anxiety Anxiety state, unspecified Diabetic polyneuropathy associated with type 2 diabetes mellitus ([facility]) documented in this encounter Care Teams Certified Meeting Professional Relationship Specialty Start Date End Date Rolanda Thakur MD [address] [place] [phone] PCP - General Internal Medicine 09/19/22 documented as of this encounter
--- OUTSIDE RECORDS SUMMARY | 2024-11-27 13:55 | XMS_ITS | Encounter Summary ---
Author Organization [employer] Address [address] [facility] 7 [place] [address] Care Team Providers Care Nitric Acid Plant Operator Name Role Phone Rolanda Thakur MD Primary Care Provider +1- [phone] Reason for Visit * Reason Onset Date Comments Results 03/29/2024 Encounter Details Date Type Department Care Team ([facility] st Contact Info) Description 03/29/2024 Telephone [facility] MEDICINE [address] [place] [address] Rolanda Thakur MD [address] [place], [place] [phone] Results Social History Tobacco Use Types Packs/Day [...] on filedocumented in this encounter Care Teams Nitric Acid Plant Operator Relationship Specialty Start Date End Date Rolanda Thakur MD [address] [place] [phone] PCP - General Internal Medicine 09/19/22 documented as of this encounter
--- OUTSIDE RECORDS SUMMARY | 2024-11-27 13:55 | XMS_ITS | Encounter Summary ---
Author Organization [employer] Address [address] [place] [address] Care Team Providers Care Ordnance Equipment Worker Name Role Phone Rolanda Thakur MD Primary Care Provider +1- [phone] Reason for Visit * Reason Onset Date Comments Referral 06/13/2024 Encounter Details Date Type Department Care Team (Late st Contact Info) Description 06/13/2024 Telephone [facility] MEDICINE [address] [place] [address] Rolanda Thakur MD [address] [place], [place] [phone] Referral Social History Tobacco Use Types Packs/Day [...] as of this encounter Care Teams Ordnance Equipment Worker Relationship Specialty Start Date End Date Rolanda Thakur MD [address] [place] [address] PCP - General Internal Medicine 09/19/22 documented as of this encounter
--- OUTSIDE RECORDS SUMMARY | 2024-11-27 13:55 | XMS_ITS | Encounter Summary ---
Author Organization [employer] Address [address] [place] [address] [place] [address] Care Team Providers Care Collection Team Lead Name Role Phone Rolanda Thakur MD Primary Care Provider +1- [phone] Reason for Referral * Imaging (Routine) - Closed Specialty Diagnoses / Procedures Referred By Contac t Referred To Contact Radiology Diagnoses Hyponatremia Decreased GFR Procedures US RENAL BI Rolanda Thakur MD [address] [place] [address] Phone: tel: fax: [address] Phone: tel: fax: Referral ID Status Reason Start Date Expiration Date Visits Re quested Visits Authorized [id number] Closed 07/18/2024 07/18/2025 1 0 Encounter Details Date Type Department Care Team (Late st Contact Info) Description 07/09/2024 Orders Only [facility] CH[facility] MED & PEDS [address] [place], [place] [phone] Rolanda Thakur MD [address] [place] [address] Hyponatremia (Primary Dx); Decreased GFR Social History [...] documented as of this encounter Care Teams Collection Team Lead Relationship Specialty Start Date End Date Rolanda Thakur MD [address] [place] [phone] PCP - General Internal Medicine 09/19/22 documented as of this encounter
--- OUTSIDE RECORDS SUMMARY | 2024-11-27 13:55 | XMS_ITS | Encounter Summary ---
Author Organization [employer] Address [address] [place] [address] Care Team Providers Care Dance Choreographer Name Role Phone Rolanda Thakur MD Primary Care Provider +1- [phone] Reason for Visit * Reason Onset Date Comments Med Refill 04/04/2024 Encounter Details Date Type Department Care Team (Late st Contact Info) Description 04/04/2024 Telephone [facility] MEDICINE [address] [place] [address] Rolanda Thakur MD [address] [place] [address] Med Refill Social History Tobacco Use Types [...] 5 mg tablets To be sent to: [facility] documented in this encounter Plan of Treatment Not on file documented as of this encounter Visit Diagnoses Diagnosis Anxiety- Primary Anxiety state, unspecified documented in this encounter Care Teams Dance Choreographer Relationship Specialty Start Date End Date Rolanda Thakur MD [address] [place] [address] PCP - General Internal Medicine 09/19/22 documented as of this encounter
--- OUTSIDE RECORDS SUMMARY | 2024-11-27 13:55 | XMS_ITS | Encounter Summary ---
Author Organization [employer] Address [address] [place] [address] [place] [address] Care Team Providers Care Clinical Dietetic Technician Name Role Phone Rolanda Thakur MD Primary Care Provider +1- [phone] Encounter Details Date Type Department Care Team ([facility] st Contact Info) Description 05/22/2024 Orders Only [facility] CHC MED & PEDS [address] [place] [address] Rolanda Thakur MD [address] [place] [address] Social History Tobacco Use Types Packs/Day Years [...] as of this encounter Care Teams Clinical Dietetic Technician Relationship Specialty Start Date End Date Rolanda Thakur MD [address] [place] [phone] PCP - General Internal Medicine 09/19/22 documented as of this encounter
--- OUTSIDE RECORDS SUMMARY | 2024-11-27 13:55 | XMS_ITS | Encounter Summary ---
Author Organization [employer] Address [address] [place] [address] Care Team Providers Care Oleo Hasher And Renderer Name Role Phone Rolanda Thakur MD Primary Care Provider +1- [phone] Reason for Visit * Reason Onset Date Comments Call Back Request 11/27/2024 Encounter Details Date Type Department Care Team ([facility] st Contact Info) Description 11/27/2024 Telephone [facility] [address] [place] [address] Rolanda Thakur MD 505 [place] [address] Call Back Request Social History Tobacco Use [...] documented as of this encounter Care Teams Oleo Hasher And Renderer Relationship Specialty Start Date End Date Rolanda Thakur MD [address] [place] [address] PCP - General Internal Medicine 09/19/22 documented as of this encounter
--- OUTSIDE RECORDS SUMMARY | 2024-11-27 13:55 | XMS_ITS | Encounter Summary ---
Author Organization [employer] Address [address] [place] [address] 7 [place] [address] Care Team Providers Care Ergonomics Consultant Name Role Phone Rolanda Thakur MD Primary Care Provider +1- [phone] Encounter Details Date Type Department Care Team (Late st Contact Info) Description 04/08/2024 Orders Only [facility] 230 [place], [place] [phone] Rolanda Thakur MD 505 [place] [address] UTI symptoms (Primary Dx) Social History Tobacco [...] Primary documented in this encounter Care Teams Ergonomics Consultant Relationship Specialty Start Date End Date Rolanda Thakur MD 505 [place] [address] PCP - General Internal Medicine 09/19/22 documented as of this encounter
--- OUTSIDE RECORDS SUMMARY | 2024-11-27 13:55 | XMS_ITS | Encounter Summary ---
Author Organization [employer] Address [address] [place] [address] [place] [address] Care Team Providers Care Quality Control Tester Name Role Phone Rolanda Thakur MD Primary Care Provider +1- [phone] Reason for Visit * Reason Comments Med Refill Encounter Details Date Type Department Care Team ([facility] st Contact Info) Description 01/05/2023 Refill [facility]EDS 505 [place] [address] Karoline Castañeda MD 505 [place] [address] Social History Tobacco Use Types Packs/Day Years [...] on filedocumented in this encounter Care Teams Quality Control Tester Relationship Specialty Start Date End Date Rolanda Thakur MD [address] [place] [address] PCP - General Internal Medicine 09/19/22 documented as of this encounter
--- OUTSIDE RECORDS SUMMARY | 2024-11-27 13:55 | XMS_ITS | Encounter Summary ---
Author Organization [employer] Address [address] [place] [address] 7 [place] [address] Care Team Providers Care Oil Tanker Captain Name Role Phone Rolanda Thakur MD Primary Care Provider +1- [phone] Encounter Details Date Type Department Care Team (Late st Contact Info) Description 06/21/2023 Abstract [facility] MEDICINE 230 [place] [address] Sherrie Caballero Social History Tobacco Use Types [...] on filedocumented in this encounter Care Teams Oil Tanker Captain Relationship Specialty Start Date End Date Rolanda Thakur MD [address] [place] [address] PCP - General Internal Medicine 09/19/22 documented as of this encounter
--- OUTSIDE RECORDS SUMMARY | 2024-11-27 13:55 | XMS_ITS | Encounter Summary ---
Author Organization [employer] Address [address] [place] [address] Care Team Providers Care Drapery Counselor Name Role Phone Rolanda Thakur MD Primary Care Provider +1- [phone] Reason for Visit * Reason Onset Date Comments Medication Question 04/04/2024 Encounter Details Date Type Department Care Team (Late st Contact Info) Description 04/04/2024 Telephone [facility] MEDICINE 230 [place] [address] Rolanda Thakur MD 505 [place], [place] [phone] Medication Question Social History Tobacco Use Types [...] on filedocumented in this encounter Care Teams Drapery Counselor Relationship Specialty Start Date End Date Rolanda Thakur MD [address] [place] [address] PCP - General Internal Medicine 09/19/22 documented as of this encounter
--- OUTSIDE RECORDS SUMMARY | 2024-11-27 13:55 | XMS_ITS | Encounter Summary ---
Author Organization [employer] Address [address] [place] [address] Care Team Providers Care Brick Yard Hand Name Role Phone Rolanda Thakur MD Primary Care Provider +1- [phone] Reason for Visit * Reason Onset Date Comments Created In Error 04/29/2024 Encounter Details Date Type Department Care Team (Late st Contact Info) Description 04/29/2024 Telephone [facility] MEDICINE [address] [place], [place] [phone] Rolanda Thakur MD 505 [place], [place] [phone] Created In Error Social History Tobacco Use [...] on filedocumented in this encounter Care Teams Brick Yard Hand Relationship Specialty Start Date End Date Rolanda Thakur MD [address] [place] [address] PCP - General Internal Medicine 09/19/22 documented as of this encounter
--- OUTSIDE RECORDS SUMMARY | 2024-11-27 13:55 | XMS_ITS | Encounter Summary ---
Author Organization [employer] Address [address] [place] [address] 7 [place] [address] Care Team Providers Care Paratransit Driver Name Role Phone Rolanda Thakur MD Primary Care Provider +1- [phone] Encounter Details Date Type Department Care Team ([facility] st Contact Info) Description 11/20/2024 Orders Only [facility] MED & PEDS 505 [place] [address] Rolanda Thakur MD 505 [place] [address] Type 2 diabetes mellitus without complication, without long-term current use of insulin ([facility]) (Primary Dx); UTI symptoms Social History Tobacco [...] complication, without long-term current use of insulin ([facility]) UTI symptoms CBC WITH AUTO DIFFERENTIAL Routine 11/23/2024 9:00 AM EDT Type 2 diabetes mellitus without complication, without long-term current use of insulin ([facility]) BASIC METABOLIC PANEL Routine 11/23/2024 9:00 AM EDT Type 2 diabetes mellitus without complication, without long-term current use of insulin ([facility]) documented in this encounter Results * Culture, Urine, Routine (11/23/2024 9:05 AM EDT) Urine Urine specimen obtained by clean catch procedure / Unknown 11/23/2024 9:05 AM EDT 11/23/2024 11:26 AM EDT Comment:[facility] - 11/24/2024 11:22 AM EDT Urine Culture Report Result Urine Culture 10,000 to 50,000 cfu/ml Urine Culture Mixed bacterial hailey characteristic of Urine Culture urogenital contamination. Specimen Source: Urine clean catch us Rolanda Thakur MD LAB MICROBIOLOGY - GENERAL ORDERABLES Final Result [facility] [address] [place] [address] [phone] * (ABNORMAL) CBC auto differential (11/23/2024 9:00 AM EDT) White Blood Count 8.5 4.8 - 10.8 X10*3/uL [facility] Red Blood Count 4.27 4.20 - 5.50 X10*6/uL [facility] Hemoglobin 12.8 12.0 - 16.0 g/dl [facility] Hematocrit 37.0 37.0 - 47.0 % [facility] Mean Corpuscular Volume 86.7 80.0 - 98.0 fL [facility] Mean Corpuscular Hemoglobin 30.0 27.0 - 33.0 pg [facility] Mean Corpuscular HGB Conc 34.6 31.0 - 35.0 g/dl [facility] Red Cell Distribution Width 13.1 11.0 - 16.0 % [facility] Platelet Count 269 160 - 400 X10*3/uL [facility] Mean Platelet Volume 9.1(L) 9.4 - 12.3 fL [facility] Neutrophils Percent Auto 64.4 45 - 73 % [facility] Imm Gran Pct Auto 0.4 0.0 - 0.4 % [facility] Lymphocytes Percent Auto 23.8 20 - 40 % [facility] Monocytes Percent Auto 5.9 2 - 11 % [facility] Eosinophils Percent Auto 4.7(H) 0 - 4 % [facility] Basophils Percent Auto 0.8 0 - 2 % [facility] NRBC Pct Auto 0.0 0.0 - 0.2 /100WBC [facility] Neutrophils Absolute Auto 5.4 2.0 - 8.3 x10*3/uL [facility] Imm Gran Abs Auto 0.03 0.00 - 0.03 X10*3/uL [facility] Lymphocytes Absolute Auto 2.0 1.2 - 4.9 X10*3/uL [facility] Monocytes Absolute Auto 0.5 0.1 - 1.2 X10*3/uL [facility] Eosinophils Absolute Auto 0.4 0.0 - 0.4 X10*3/uL [facility] Basophils Absolute Auto 0.1 0.0 - 0.2 X10*3/uL [facility] NRBC Abs Auto 0.000 0.0 - 0.012 X10*3/uL [facility] Blood Venous blood specimen / Unknown 11/23/2024 9:00 AM EDT 11/23/2024 11:37 AM EDT us Rolanda Thakur MD LAB BLOOD ORDERABLES Final Result [facility] [address] [place] [phone] * (ABNORMAL) Basic Metabolic Panel (11/23/2024 9:00 AM EDT) Sodium 135 135 - 145 mmol/L [facility] Potassium 4.4 3.3 - 5.1 mmol/L [facility] Chloride 103 96 - 108 mmol/L [facility] Carbon Dioxide 24 22 - 29 mmol/L [facility] Anion Gap 12 12 - 20 [facility] Urea Nitrogen (BUN) 21(H) 9 - 16 mg/dL [facility] Creatinine, Serum 0.89 0.5 - 1.4 mg/dL [facility] Estimated Glomerular Filt Rate >60 [facility] Comment:Chronic Kidney Disea se: Estimated GFR < 60 mL/min/1.17s1[place]ie Kidney Disease: Estimated GFR < 15 mL/min/1.73m2 Glucose 161(H) 60 - 115 mg/dL [facility] Calcium 10.2 8.4 - 10.2 mg/dL [facility] Blood Venous blood specimen / Unknown 11/23/2024 9:00 AM EDT 11/23/2024 11:37 AM EDT Rolanda Thakur MD LAB BLOOD ORDERABLES Final Result [facility] [address] [place] [address] [phone] documented in this encounter Visit Diagnoses Diagnosis Type 2 diabetes mellitus without complication, without long-term current use of insulin ([facility])- Primary UTI symptoms documented in this encounter Additional Health Concerns Assessment Noted Time PHQ-9 Depression Total Score: 2 05/13/20 24 9:24 AM EDT documented as of this encounter Care Teams Paratransit Driver Relationship Specialty Start Date End Date Rolanda Thakur MD [address] [place] [address] PCP - General Internal Medicine 09/19/22 documented as of this encounter
--- OUTSIDE RECORDS SUMMARY | 2024-11-27 13:55 | XMS_ITS | Encounter Summary ---
Author Organization [employer] Address [address] [place] [address] [place] [address] Care Team Providers Care Project Management Professor Name Role Phone Rolanda Thakur MD Primary Care Provider +1- [phone] Reason for Visit * Reason Onset Date Comments Referral 07/31/2024 Encounter Details Date Type Department Care Team ([facility] Contact Info) Description 07/31/2024 Telephone [facility] MED & PEDS [address] [place] [address] Rolanda Thakur MD 505 [place] [address] Referral Social History Tobacco Use Types Packs/Day [...] Hirsch. [facility] documented in this encounter Plan of Treatment Not on file documented as of this encounter Visit Diagnoses Not on filedocumented in this encounter Additional Health Concerns Assessment Noted Time PHQ-9 Depression Total Score: 2 05/13/20 24 9:24 AM EDT documented as of this encounter Care Teams Project Management Professor Relationship Specialty Start Date End Date Rolanda Thakur MD [address] [place] [address] PCP - General Internal Medicine 09/19/22 documented as of this encounter
--- OUTSIDE RECORDS SUMMARY | 2024-11-27 13:55 | XMS_ITS | Encounter Summary ---
Author Organization [employer] Address 75 [facility] 7t [place] [address] Care Team Providers Care Opener Tender Name Role Phone Rolanda Thakur MD Primary Care Provider +[phone] Encounter Details Date Type Department Care Team [...] documented as of this encounter Care Teams Opener Tender Relationship Specialty Start Date End Date Rolanda Thakur MD [address] [place] [address] PCP - General Internal Medicine 09/19/22 documented as of this encounter
--- OUTSIDE RECORDS SUMMARY | 2024-11-27 13:55 | XMS_ITS | Encounter Summary ---
Author Organization [employer] Address [address] [place] [address] Care Team Providers Care Route Clerk Name Role Phone Rolanda Thakur MD Primary Care Provider +1- [phone] Reason for Referral * Consultation (Routine) - Closed Specialty Diagnoses / Procedures Referred By Freddy t Referred To Contact Chiropractic Medicine Diagnoses Chronic left-sided low back pain with left-sided sciatica Rolanda Thakur MD [address] [place] [address] Phone: tel: fax: [facility] fax: Referral ID Status Reason Start Date Expiration Date V isits Requested Visits Authorized [id number] Closed Specialty Services Required 08/08/2024 08/08/2025 1 1 * Consultation (Routine) - Closed Specialty Diagnoses / Procedures Referred By Freddy t Referred To Contact Physical Therapy Diagnoses Chronic left-sided low back pain with left-sided sciatica Rolanda Thakur MD [address] [place] [address] Phone: tel: fax: [facility] [address] [place] [address] Phone: tel: fax: Referral ID Status Reason Start Date Expiration Date V isits Requested Visits Authorized [id number] Closed Specialty Services Required 08/05/2024 08/05/2025 1 1 * Consultation (Routine) - Closed Specialty Diagnoses / Procedures Referred By Freddy meadows Referred To Contact Chiropractic Medicine Diagnoses Chronic left-sided low back pain with left-sided sciatica Rolanda Thakur MD [address] [place] [address] Phone: tel: fax: Referral ID Status Reason Start Date Expiration Date V isits Requested Visits Authorized [id number] Closed Specialty Services Required 08/02/2024 08/02/2025 1 1 Encounter Details Date Type Department Care Team ([facility] Contact Info) Description 08/02/2024 Orders Only [facility] CH[facility] MED & PEDS [address] [place] [address] Rolanda Thakur MD [address] [place] [address] Chronic left-sided low back pain with left-sided [...] Adult Primary Care ?[address] ? [place] [address] ?XRay Report ? Signed ? Patient: Cook,Angely ?MR#: [id number] ? : 1950 ?Acct:[id number] ? Age/Sex: 74 / F ?ADM Date: 08/12/24 ? Loc: HO.HMGCX ? Attending Dr: Wyatt Golden MD ? Ordering Physician: Wyatt Golden MD ?? Date of Service: 08/12/24 ?? Procedure(s): XR cervical spine 5V ?? Accession Number(s): [id number] ? cc: Rolanda Thakur MD; Wyatt Golden [...] DD/ 0950 ? TD/TT: 08/12/24 1000 ? Operating Room Registered Nurse: ? Procedure Note Darrell Fonseca - 09/02/2024 [facility] [address] [place], [place] [address] XRay Report Signed Patient: Zion PinedaJean-Paul#: [id number] : 1Acct:[id number] Age/Sex: 74 / FADM Date: 08/12/24 Loc: HO.HMGCX Attending Dr: Wyatt Golden MD Ordering Physician: Wyatt Golden MD Date of Service: 08/12/24 Procedure(s): XR cervical spine 5V Accession Number(s): [id number] cc: Rolanda Thakur MD; Wyatt Golden MD [...] 09/02/24 1121 DD/ 0950 TD/TT: 08/12/24 1000 Operating Room Registered Nurse: us Wyatt Mcdonald MD IMG XR PROCEDURES Iftikhar mecca Result - Final documented in this encounter Visit Diagnoses Diagnosis Chronic left-sided low back pain with left-sided sciatica- Primary documented in this encounter Additional Health Concerns Assessment Noted Time PHQ-9 Depression Total Score: 2 05/13/20 24 9:24 AM EDT documented as of this encounter Care Teams Route Clerk Relationship Specialty Start Date End Date Rolanda Thakur MD [address] [place] [address] PCP - General Internal Medicine 09/19/22 documented as of this encounter
--- OUTSIDE RECORDS SUMMARY | 2024-11-27 13:55 | XMS_ITS | Encounter Summary ---
Author Organization [employer] Address 75 [facility] 7 [place] [address] Care Team Providers Care Claim Representative Name Role Phone Rolanda Thakur MD Primary Care Provider +1- [phone] Encounter Details Date Type Department Care Team ([facility] st Contact Info) Description 11/22/2024 Telephone [facility] MEDICINE [address] [place] [address] Rolanda Thakur MD 505 [place] [address] Social History Tobacco Use Types Packs/Day Years [...] what is going on. Contact pt at [phone] from 11:30 to 12:30 due to her being in school she can't answer any timeother than that. documented in this encounter Plan of Treatment Not on file documented as of this encounter Visit Diagnoses Not on filedocumented in this encounter Additional Health Concerns Assessment Noted Time PHQ-9 Depression Total Score: 2 05/13/20 24 9:24 AM EDT documented as of this encounter Care Teams Claim Representative Relationship Specialty Start Date End Date Rolanda Thakur MD [address] [place] [address] PCP - General Internal Medicine 09/19/22 documented as of this encounter
--- OUTSIDE RECORDS SUMMARY | 2024-11-27 13:55 | XMS_ITS | Encounter Summary ---
Author Organization [employer] Address [address] [place] [address] 7 [place] [address] Care Team Providers Care Client Service Professional Name Role Phone Rolanda Thakur MD Primary Care Provider +1- [phone] Reason for Visit * Reason Comments Med Refill Encounter Details Date Type Department Care Team (Late st Contact Info) Description 12/28/2022 Refill [facility] CH[facility] MED & PEDS [address] [place] [address] Maren Hough MD 505 [place] [address] Type 2 diabetes mellitus without complication, without long-term current use of insulin ([facility]); Anxiety Social History Tobacco Use Types [...] complication, without long-term current use of insulin ([facility]) Anxiety Anxiety state, unspecified documented in this encounter Care Teams Client Service Professional Relationship Specialty Start Date End Date Rolanda Thakur MD 505 [place] [address] PCP - General Internal Medicine 09/19/22 documented as of this encounter
--- OUTSIDE RECORDS SUMMARY | 2024-11-27 13:55 | XMS_ITS | Encounter Summary ---
Author Organization [employer] Address 75 [facility] 7 [place] [address] Care Team Providers Care Pilling Machine Operator Name Role Phone Rolanda Thakur MD Primary Care Provider +1- [phone] Encounter Details Date Type Department Care Team ([facility] st Contact Info) Description 11/26/2024 Orders Only [facility] MEDICINE [address] [place], [place] [phone] Ilsa Arana MD [address] [place] [address] Social History Tobacco Use Types Packs/Day Years [...] Procedure Name Priority Date/Time Associated Diagnosis Comments URINALYSIS WITH REFLEX TO MICROSCOPIC Routine 11/26/2024 6:53 PM EDT documented in this encounter Results * Urinalysis with Reflex to Microscopic (11/26/2024 6:53 PM EDT) Color Urine Yellow [facility] Appearance Urine Clear [facility] PH 6.0 5.0 - 9.0 [facility] Glucose Urine UA Negative Negative mg/dL [facility] Urine Blood Negative Negative [facility] Specific [place] - Urine <=1.005 1.005 - 1.025 [facility] Urine Protein Negative Neg-Trace mg/dL [facility] Urine Ketones Negative Negative mg/dL [facility] Nitrite Urine Negative Negative [facility] Leukocyte Esterase Urine Negative Negative [facility] 11/26/2024 6:53 PM EDT 11/27/2024 11:49 AM EDT us Ilsa Arana MD LAB URINE ORDERABLES Final Result [facility] [address] [place] [phone] documented in this encounter Visit Diagnoses Not on filedocumented in this encounter Additional Health Concerns Assessment Noted Time PHQ-9 Depression Total Score: 2 05/13/20 24 9:24 AM EDT documented as of this encounter Care Teams Pilling Machine Operator Relationship Specialty Start Date End Date Rolanda Thakur MD [address] [place] [address] PCP - General Internal Medicine 09/19/22 documented as of this encounter
--- OUTSIDE RECORDS SUMMARY | 2024-11-27 13:55 | XMS_ITS | Encounter Summary ---
Author Organization [employer] Address 75 [facility] 7 [place] [address] Care Team Providers Care Underwriting Analyst Name Role Phone Rolanda Thakur MD Primary Care Provider +1- [phone] Reason for Visit * Reason Onset Date Comments Nurse Triage 04/04/2024 Encounter Details Date Type Department Care Team (Late st Contact Info) Description 04/04/2024 Telephone [facility] MEDICINE [address] [place] [address] Rolanda Thakur MD [address] [place] [address] Nurse Triage Social History Tobacco Use Types [...] pt. She states that she went to [facility] ED for Anxiety panic attacks on 03/30/24- [...] got treated horribly by the staff at [facility] and she will never go there again. [...] care coordinators so that they can get [facility] ED notes from 03/30/24 Ed visit into pt. Chart and any labs, EKG's etc.. into pt. Chart for visit on 04/05/24 at 315pm. Protocol Used: Anxiety and Panic Attack (Adult) Protocol-Based Disposition: Go to ED/[facility] Now (or to Office with PCP Approval)- [...] on filedocumented in this encounter Care Teams Underwriting Analyst Relationship Specialty Start Date End Date Rolanda Thakur MD [address] [place] [address] PCP - General Internal Medicine 09/19/22 documented as of this encounter
--- OUTSIDE RECORDS SUMMARY | 2024-11-27 13:55 | XMS_ITS | Encounter Summary ---
Author Organization [employer] Address [address] [place] [address] Care Team Providers Care Technical Translator Name Role Phone Rolanda Thakur MD Primary Care Provider +1- [phone] Reason for Visit * Reason Onset Date Comments Call Back Request 10/31/2024 Encounter Details Date Type Department Care Team ([facility] st Contact Info) Description 10/31/2024 Telephone [facility] MEDICINE [address] [place] [address] Rolanda Thakur MD [address] [place] [address] Call Back Request Social History Tobacco Use [...] to DR. Castañeda. Please contact pt at [phone]. documented in this encounter Plan of Treatment Not on file documented as of this encounter Visit Diagnoses Not on filedocumented in this encounter Additional Health Concerns Assessment Noted Time PHQ-9 Depression Total Score: 2 05/13/20 24 9:24 AM EDT documented as of this encounter Care Teams Technical Translator Relationship Specialty Start Date End Date Rolanda Thakur MD [address] [place] [address] PCP - General Internal Medicine 09/19/22 documented as of this encounter
--- OUTSIDE RECORDS SUMMARY | 2024-11-27 13:55 | XMS_ITS | Clinical Summary ---
Author Organization [facility] Address [address] [place], [place] [id number] Care Team Providers Care Technical Account Executive Name Role Phone Rahel Hough MD Primary Care Provider [phone] Allergies Active Allergy Reactions Criticality Noted Date [...] mg by mouth daily. 0 09/09/2020 Active [place]-3 Fatty Acids (FISH OIL) 1000 MG CAPS [...] age to complete this topic Care Teams Technical Account Executive Relationship Specialty Start Date End Date Rahel Hough MD [address] [facility] [place] [address] PCP - General Internal Medicine 11/20/20
--- OUTSIDE RECORDS SUMMARY | 2024-11-27 13:55 | XMS_ITS | Encounter Summary ---
Author Organization [employer] Address [address] [facility] 7 [place] [address] Care Team Providers Care Nurse Orthopaedic Name Role Phone Rolanda Thakur MD Primary Care Provider [phone] Reason for Visit * Reason Onset Date Comments Nurse Triage 08/05/2024 Encounter Details Date Type Department Care Team ([facility] st Contact Info) Description 08/05/[address] [facility] [address] [place] [address] Rolanda Thakur MD [address] [place] [address] Nurse Triage Social History Tobacco Use Types [...] 1145am. Pt is advised to come to [facility] today which is open till 8pm and also open 830am -800pm tomorrow. Pt agrees with this disposition. Pt will try to come to [facility] todaybut, if unable will come [...] documented as of this encounter Care Teams Nurse Orthopaedic Relationship Specialty Start Date End Date Rolanda Thakur MD [address] [place] [phone] PCP - General Internal Medicine 09/19/22 documented as of this encounter
--- OUTSIDE RECORDS SUMMARY | 2024-11-27 13:55 | XMS_ITS | Encounter Summary ---
Author Organization [employer] Address [address] [place] [address] [place] [address] Care Team Providers Care Screen Repairer Crusher Name Role Phone Rolanda Thakur MD Primary Care Provider Encounter Details Date Type Department Care Team ([facility] st Contact Info) Description 05/01/2023 Orders Only [facility] [address] [place] [address] Rolanda Thakur MD [address] [place] [address] Diabetic polyneuropathy associated with type 2 diabetes [...] polyneuropathy associated with type 2 diabetes mellitus ([facility]/HCC) TSH W/REFLEX TO FT4 Routine 05/08/2023 1 1:04 AM EDT Diabetic polyneuropathy associated with type 2 diabetes mellitus ([facility]/HCC) CBC WITH AUTO DIFFERENTIAL Routine 05/08/2023 11:04 AM EDT Diabetic polyneuropathy associated with type 2 diabetes mellitus ([facility]/HCC) HEMOGLOBIN A1C Routine 05/08/2023 11:04 AM EDT Diabetic polyneuropathy associated with type 2 diabetes mellitus ([facility]/HCC) HEPATIC FUNCTION PANEL Routine 05/08/2023 11:04 AM EDT Diabetic polyneuropathy associated with type 2 diabetes mellitus ([facility]/HCC) LIPID PANEL, STANDARD Routine 05/08/2023 11:04 AM EDT Diabetic polyneuropathy associated with type 2 diabetes mellitus ([facility]/HCC) BASIC METABOLIC PANEL Routine 05/08/2023 11:04 AM EDT Diabetic polyneuropathy associated with type 2 diabetes mellitus ([facility]/HCC) documented in this encounter Results * (ABNORMAL) Hemoglobin A1c (05/08/2023 11:04 AM EDT) Hemoglobin A1c 6.1(H) <6.0 % [facility] Comment:Hemoglobin A1C Refer ence Range Adults: 4.8 - 6.0 % Non diabetic: < 6.0 % Goal: < 7.0 %Additional Action Suggested: > 8.0 %Note: Hemoglobin A1c results are invalid for patients with abnormal amounts of HbF. Blood transfusions may impact the HbA1c concentration in the patient sample. Estimated Average Glucose 128 mg/dL [facility] Comment:eAG = Estimated ave rage glucose which is %A1C expressed asaverage glucose, using the formula of the U2Y-ApiowdmZgmicij Glucose study (ADAG), Diabetes Care, Vol.31,#8,Mar. 2007 Blood Venous blood specimen / Unknown 05/08/2023 11:04 AM EDT 05/08/2023 1:46 PM EDT us Rolanda Thakur MD LAB BLOOD ORDERABLES Final Result Performing Organization Address City/[facility]/ZIP Co de Phone Number [facility] [address] [place] [phone] * Vitamin D, 25-Hydroxy, Total, Immunoassay (05/08/2023 11:04 AM EDT) Vitamin D 25-OH Total 84.6 >30 ng/mL [facility] Comment:Health Based Referen ce Values*< 20 ng/mL Pwooyfrib20-93 ng/mL Insufficient> 30 ng/mL Sufficient*Arabella MCALLISTER. N [...] ORDERABLES Final Result Performing Organization Address [facility] Co de Phone Number [facility] [address] [place] [phone] * Hepatic Function Panel (05/08/2023 11:04 AM EDT) Bilirubin, Total 0.5 0.0 - 1.0 mg/dL [facility] Bilirubin, Direct 0.2 0.0 - 0.5 mg/dL [facility] Aspartate Amino Transferase 22 5 - 31 U/L [facility] Alanine Aminotransferase 18 0 - 31 U/L [facility] Total Protein 7.1 6.5 - 8.0 g/dL [facility] Albumin Level 4.4 3.5 - 5.0 g/dL [facility] Alkaline Phosphatase 70 39 - 117 U/L [facility] Blood Venous blood specimen / Unknown 05/08/2023 11:04 AM EDT 05/08/2023 1:47 PM EDT us Rolanda Thakur MD LAB BLOOD ORDERABLES Final Result [facility] [address] [place] [phone] * (ABNORMAL) Lipid Panel, Standard (05/08/2023 11:04 AM EDT) Triglycerides 110 <150 mg/dL [facility] Comment:Desirable Triglyceri de: less than 150 mg/dLBorderline High Triglyceride 150-199 mg/dLHigh Triglyceride: 200-499 mg/dLVery High Triglyceride: greater than or equal to 5OO mg/dL Cholesterol 198 <200 mg/dL [facility] Comment:Desirable Cholestero l: less than 200 mg/dLBorderline High Cholesterol: 200-239 mg/dLHigh Cholesterol: greater than 239 mg/dL LDL Cholesterol Calculated 121(H) <100 mg/dL [facility] Comment:Desirable LDL: less than 100 mg/dLNear Optimal/Above Optimal LDL: 110- 129 mg/dLBorderline High LDL: 130-159 mg/dLHigh LDL: 160-189 mg/dLVery High LDL: greater than or equal to 190 mg/dL HDL Cholesterol 55 >40 mg/dL [facility] Comment:Desirable HDL: great er than 40 mg/dL Note: This HDL assay may give artificially low results in patients with liver disease. Blood Venous blood specimen / Unknown 05/08/2023 11:04 AM EDT 05/08/2023 1:47 PM EDT us Rolanda Thakur MD LAB BLOOD ORDERABLES Final Result Performing Organization Address [facility]/ZIP Co de Phone Number [facility] [address] [place] [phone] * TSH W/Reflex to FT4 (05/08/2023 11:04 AM EDT) TSH reflex Free T4 0.53 0.32 - 4.0 uIU/mL [facility] Blood 05/08/2023 11:0 4 AM EDT 05/08/2023 1:47 PM EDT us Rolanda Thakur MD LAB BLOOD ORDERABLES Final Result Performing Organization Address [facility]/ZIP Co de Phone Number [facility] [address] [place] [phone] * (ABNORMAL) Basic Metabolic Panel (05/08/2023 11:04 AM EDT) Sodium 137 135 - 145 mmol/L [facility] Potassium 4.4 3.3 - 5.1 mmol/L [facility] Chloride 108 96 - 108 mmol/L [facility] Carbon Dioxide 24 22 - 29 mmol/L [facility] Anion Gap 9(L) 12 - [address] [facility] Urea Nitrogen (BUN) 14 9 - 16 mg/dL [facility] Creatinine, Serum 1.03 0.5 - 1.4 mg/dL [facility] Estimated Glomerular Filt Rate [address] [facility] Comment:NOTE: For -Am erican individuals, multiply the result by 1.210.Chronic Kidney Disease: Estimated GFR < 60 mL/min/1.02p2Zftsjr Kidney Disease: Estimated GFR < 15 mL/min/1.73m2 Glucose 208(H) 60 - 115 mg/dL [facility] Calcium 10.1 8.4 - 10.2 mg/dL [facility] Blood Venous blood specimen / Unknown 05/08/2023 11:04 AM EDT 05/08/2023 1:47 PM EDT us Rolanda Thakur MD LAB BLOOD ORDERABLES Final Result [facility] [address] [place] [phone] * (ABNORMAL) CBC auto differential (05/08/2023 11:04 AM EDT) White Blood Count 8.6 4.8 - 10.8 X10*3/uL [facility] Red Blood Count 4.27 4.20 - 5.50 X10*6/uL [facility] Hemoglobin 12.6 12.0 - 16.0 g/dl [facility] Hematocrit 37.9 37.0 - 47.0 % [facility] Mean Corpuscular Volume 88.8 80.0 - 98.[address] [facility] Mean Corpuscular Hemoglobin 29.5 27.0 - 33.[address] [facility] Mean Corpuscular HGB Conc 33.2 31.0 - 35.0 g/dl [facility] Red Cell Distribution Width 13.0 11.0 - 16.0 % [facility] Platelet Count 266 160 - 400 X10*3/uL [facility] Mean Platelet Volume 9.5 9.4 - 12.[address] [facility] Neutrophils Percent Auto 50.3 45 - 73 % [facility] Imm Gran Pct Auto 0.3 0.0 - 0.4 % [facility] Lymphocytes Percent Auto 33.4 20 - 40 % [facility] Monocytes Percent Auto 7.0 2 - 11 % [facility] Eosinophils Percent Auto 7.8(H) 0 - 4 % [facility] Basophils Percent Auto 1.2 0 - 2 % [facility] NRBC Pct Auto 0.0 0.0 - 0.2 /100WBC [facility] Neutrophils Absolute Auto 4.3 2.0 - 8.3 x10*3/uL [facility] Imm Gran Abs Auto 0.03 0.00 - 0.03 X10*3/uL [facility] Lymphocytes Absolute Auto 2.9 1.2 - 4.9 X10*3/uL [facility] Monocytes Absolute Auto 0.6 0.1 - 1.2 X10*3/uL [facility] Eosinophils Absolute Auto 0.7(H) 0.0 - 0.4 X10*3/uL [facility] Basophils Absolute Auto 0.1 0.0 - 0.2 X10*3/uL [facility] NRBC Abs Auto 0.000 0.0 - 0.012 X10*3/uL [facility] Blood Venous blood specimen / Unknown 05/08/2023 11:04 AM EDT 05/08/2023 1:46 PM EDT Rolanda Thakur MD LAB BLOOD ORDERABLES Final Result [facility] [address] [place] [phone] documented in this encounter Visit Diagnoses Diagnosis Diabetic polyneuropathy associated with type 2 diabetes mellitus (CMS/HCC)- Primary documented in this encounter Care Teams Screen Repairer Crusher Relationship Specialty Start Date End Date Rolanda Thakur MD [address] [place] [phone] PCP - General Internal Medicine 09/19/22 documented as of this encounter
--- OUTSIDE RECORDS SUMMARY | 2024-11-27 13:55 | XMS_ITS | Encounter Summary ---
Author Organization [employer] Address [address] [place] [address] [place] [address] Care Team Providers Care Printer'S Devil Name Role Phone Rolanda Thakur MD Primary Care Provider [phone] Reason for Visit * Reason Comments Med Refill Encounter Details Date Type Department Care Team (Late st Contact Info) Description 05/20/2024 Refill [facility] [address] [place] [address] Rolanda Thakur MD [address] [place] [address] Diabetic polyneuropathy associated with type 2 diabetes mellitus ([facility]) Social History Tobacco Use Types Packs/Day [...] documented as of this encounter Care Teams Printer'S Devil Relationship Specialty Start Date End Date Rolanda Thakur MD [address] [place] [address] PCP - General Internal Medicine 09/19/22 documented as of this encounter
--- OUTSIDE RECORDS SUMMARY | 2024-11-27 13:55 | XMS_ITS | Encounter Summary ---
Author Organization [employer] Address [address] [place] [phone] Care Team Providers Care Terminologist Name Role Phone Rolanda Thakur MD Primary Care Provider [phone]- [phone] Reason for Visit * Reason Onset Date Comments EKG 06/18/2024 Encounter Details Date Type Department Care Team ([facility] st Contact Info) Description 06/18/2024 Telephone [facility] PEDS [address] [place] [address] Rolanda Thakur MD [address] [place] [address] EKG Social History Tobacco Use Types Packs/Day [...] Given pt's symptoms, she would need a [facility] appointment to get the notes for our ear nose and throat specialist to process the referral. * Telephone Encounter - Brisa Buenrostro - 06/20/2024 10:01 AM EDT Good morning Dr. Thakur. Chart notes are required for neurology referral. Thank you. * Telephone Encounter - Rolanda hTakur MD - 06/19/2024 9:04 PM EDT The [...] should seek a neurology referral. She states financial secretary advised her to get a referral due to procedure done for cataracts might have struck a nerve and that might be were the headaches are coming from. * Telephone Encounter - Annabella Peña - 06/18/2024 4:03 PM EDT Tc from pt requesting status on order for EKG. Contact Paulette at [phone] documented in this encounter Plan of Treatment Not on file documented as of this encounter Visit Diagnoses Not on filedocumented in this encounter Additional Health Concerns Assessment Noted Time PHQ-9 Depression Total Score: 2 05/13/20 24 9:24 AM EDT documented as of this encounter Care Teams Terminologist Relationship Specialty Start Date End Date Rolanda Thakur MD [address] [place] [address] PCP - General Internal Medicine 09/19/22 documented as of this encounter
--- OUTSIDE RECORDS SUMMARY | 2024-11-27 13:55 | XMS_ITS | Clinical Summary ---
Author Organization [facility] Address [address] [place] [address] Phone Care Team Providers Care [employer] Name Role Phone Rolanda Thakur MD Primary Care Provider [phone] Allergies Active Allergy Reactions Criticality Noted Date [...] aware that this will likely be an [id number] cost and feels as though she can afford it. I will review results and determine need for future follow-up. In the meantime she would like to hold off on statin therapy which I think is totally reasonable. Orders: ECG 12 lead Pure hypercholesterolemia 07/08/2024 Assessment & Plan (07/08/2024 4:42 PM EST): See plan above. Encounters Date Type Department Care Team Description 09/12/2024 Telephone [facility] - [address] [place] [phone] Nikki Rawls MD Hypertension 09/07/2024 9:51 AM EST - 09/07/2024 11:59 PM [facility] Hospital Encounter [facility] Xray [address] [place] [address] Pain Discharge Disposition: Home or Self Care 09/07/2024 9:45 AM EST - 09/07/2024 11:59 PM [facility] Hospital Encounter [facility] Xray [address] [place] [address] Pain Discharge Disposition: Home or Self Care [...] AM EDT [facility] at [address] [phone] 02/13/2025 10:50 AM EDT Office Visit [facility] - [facility] [address] [phone] Nikki Rawls MD [address] [place] [address] Health Maintenance Due Date Last Done Comments [...] VIEWS Routine 09/07/2024 10:06 AM EST Pain [facility] SCREENING DIGITAL Routine 10/23/2023 9:44 AM EST Encounter for screening mammogram for malignant neoplasm of breast [facility] DEXA AXIAL SKELETON Routine 04/12/2023 7:46 [...] Signed Date: 09/09/2024 07:17 ET Workstation ID: [id number] Transcribed By: Self Edit Transcribed Date: 09/09/2024 [...] Signed Date: 09/09/2024 07:17 ET Workstation ID: [id number] Transcribed By: Self Edit Transcribed Date: 09/09/2024 [...] Signed Date: 09/09/2024 07:17 ET Workstation ID: [id number] Transcribed By: Self Edit Transcribed Date: 09/09/2024 [...] Signed Date: 09/09/2024 07:17 ET Workstation ID: [id number] Transcribed By: Self Edit Transcribed Date: 09/09/2024 07:11 ET us Jamel Gilbert DC IMG XR PROCEDURES Final Result * [facility] SCREENING DIGITAL (10/23/2023 9:44 AM EST) Anatomical Region Laterality Modality Mammography 10/19/2023 2:21 PM EST Narrative 10/23/2023 9:44 AM EST [facility] Diagnostic Imaging Department [address] [place] [id number] Patient: ??ANGELY PINEDA ?/Age/Sex: 1950 - Unit#: ??[id number] ? Location/Status: ??SPDIMAM/REG CLI ? Mnemonic/Ordering Site: ??DIGSC/SPMAIN Ordering Physician: ??MAREN UREÑA MD [facility] Screening Digital - 10/21/23 - 08 Report Status:Signed EXAM: [facility] Screening Digital EXAM DATE AND TIME: 10/21/2023 8:11 AM HISTORY: ??Screening. COMPARISON: ??10/12/22, 06/08/21, 03/04/20 TECHNIQUE: Bilateral digital breast tomosynthesis was performed in the CC and MLO projections. Computer aided detection with minicabit 3D 3.1 was employed. TISSUE DENSITY: a. [...] Note Maria Guadalupe Gotti MD - 04/08/2024 [facility] Diagnostic Imaging Department [address] [place] [id number] Patient: ADEDSONANGELY YARA /Age/Sex: 1950 - 73 - F Unit#: [id number] Location/Status: [facility] CLI [facility]emonic[facility] Ordering Physician: MAREN UREÑA MD [facility] Screening Digital - 10/21/23 - 0810 Report Status:Signed EXAM: [facility] Screening Digital EXAM DATE AND TIME: 10/21/2023 8:11 AM HISTORY: Screening. COMPARISON: 10/12/22, 06/08/21, 03/04/20 TECHNIQUE: Bilateral digital breast tomosynthesis was performed in the CCand MLO projections. Computer aided detection with [employer] 3D 3.1was employed. TISSUE DENSITY: a. The [...] PM EDT Narrative 04/12/2023 7:46 AM EDT [facility] Diagnostic Imaging Department [address] [place] [address] Patient: ??ANGELY PINEDA ?/Age/Sex: 1950 - 72 - F Unit#: ??[id number] ? Location/Status: ??SPDIMAM/REG CLI ? Mnemonic/Ordering Site: [...] probability of hip fracture of 2.2%. Code 67148 Dictating Physician: ??GWENDOLYN BAHENA MD Electronically Signed by: ??GWENDOLYN BAHENA MD Dic Date/Time: ??04/12/23 0745 Sign date/Time: ??04/12/23 0746 Procedure Note Gwednolyn Bahena MD - 09/26/2023 [facility] Diagnostic Imaging Department [address] [place] [address] Patient: ANGELY PINEDA YARA Pruitt./Age/Sex: 1950 - 72 - F Unit#: [id number] [facility]/Status[facility] Ordering Physician: MAREN UREÑA MD [facility] Dexa Axial Skeleton - 04/11/231532 Report Status:Signed [...] density of the femurs bilaterally is 0.874 gm/uo1dqtua is 87% of that of young normals [...] probability of hip fracture of 2.2%. Code 87689 Dictating Physician: GWENDOLYN BAHENA MD Electronically Signed by: GWENDOLYN BAHENA MD Dic Date/Time: 04/12/2345 Sign date/Time: 04/12/2346 Maren Ureña MD IMG BI PROCEDURES Final Result from Last 3 Months or Most Recently Relevant to Health Maintenance Insurance [employer] MEDICARE Care Teams [employer] Relationship Specialty Start Date End Date Rolanda Thakur MD [address] [place], [place] PCP - General 11/03/23
--- OUTSIDE RECORDS SUMMARY | 2024-11-27 13:55 | XMS_ITS | Encounter Summary ---
Author Organization [employer] Address [address] [place] [address] 7 [place] [address] Care Team Providers Care Computer Help Desk Representative Name Role Phone Rolanda Thakur MD Primary Care Provider [phone]- [phone] Reason for Visit * Reason Comments UTI Encounter Details Date Type Department Care Team ([facility] st Contact Info) Description 11/26/2024 6:40 PM EDT Office Visit [facility] [address] [place] [address] Ilsa Arana MD [address] [place] [phone] Recent urinary tract infection (Primary Dx) Social [...] documented as of this encounter Care Teams Computer Help Desk Representative Relationship Specialty Start Date End Date Rolanda Thakur MD [address] [place] [phone] PCP - General Internal Medicine 09/19/22 documented as of this encounter
--- OUTSIDE RECORDS SUMMARY | 2024-11-27 13:55 | XMS_ITS | Encounter Summary ---
Author Organization [employer] Address [address] [facility] 7 [place] [address] Care Team Providers Care Ballistic Technician Name Role Phone Rolanda Thakur MD Primary Care Provider [phone]- [phone] Reason for Visit * Reason Onset Date Comments Nurse Triage 11/26/2024 Encounter Details Date Type Department Care Team (Late st Contact Info) Description 11/26/2024 Telephone [facility] MEDICINE [address] [place] [address] Rolanda Thakur MD [address] [place] [address] Nurse Triage Social History Tobacco Use Types [...] couple weeks ago after going to the [facility] [place] Urgent care on [facility]. No fever. No blood in urine, no [...] pt. Chart. *Pt. 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 She is adamant about me letting you know prior to her coming into walk in this evening that she does not want her BP checked at all * Pt. Will come to [facility] walk in around 615pm due to [...] couple weeks ago after going to the [facility] [place] Urgent care on [facility] [address] No fever. No blood in [...] pt. Chart. *Pt. 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 She is adamant about me letting you know prior to her coming into walk in this evening that she does not want her BP checked at all * Pt. Will come to [facility] walk in around 615pm due to [...] caller accepted this outcome. Contact pt at [phone] documented in this encounter Plan of Treatment Not on file documented as of this encounter Visit Diagnoses Not on filedocumented in this encounter Additional Health Concerns Assessment Noted Time PHQ-9 Depression Total Score: 2 05/13/20 24 9:24 AM EDT documented as of this encounter Care Teams Ballistic Technician Relationship Specialty Start Date End Date Rolanda Thakur MD [address] [place] [phone] PCP - General Internal Medicine 09/19/22 documented as of this encounter
--- OUTSIDE RECORDS SUMMARY | 2024-11-27 13:56 | XMS_ITS | Encounter Summary ---
Author Organization [employer] Address [address] [facility] 7 [place] [address] Care Team Providers Care Senior Hr Generalist Name Role Phone Rolanda Thakur MD Primary Care Provider [phone]- [phone] Reason for Visit * Reason Onset Date Comments Durable Medical Equipment 04/29/2024 Encounter Details Date Type Department Care Team (Late st Contact Info) Description 04/29/2024 Telephone [facility] MEDICINE [address] [place] [address] Rolanda Thakur MD [address] [place] [address] Durable Medical Equipment Social History Tobacco Use [...] - 04/29/2024 3:34 PM EDT Tc from [email or web address] pharmacy stating pt is requesting blood pressure monitor but they don't have a script. If any questions you can contact [employer] at [phone]. documented in this encounter Plan of Treatment Not on file documented as of this encounter Visit Diagnoses Not on filedocumented in this encounter Care Teams Senior Hr Generalist Relationship Specialty Start Date End Date Rolanda Thakur MD [address] [place] [address] PCP - General Internal Medicine 09/19/22 documented as of this encounter
--- OUTSIDE RECORDS SUMMARY | 2024-11-27 13:56 | XMS_ITS | Encounter Summary ---
Author Organization [employer] Address 75 [facility] 7 [place] [address] Care Team Providers Care Screw Machine Operator Swiss Type Name Role Phone Rolanda Thakur MD Primary Care Provider [phone]- [phone] Reason for Visit * Reason Onset Date Comments Nurse Triage 08/09/2024 Encounter Details Date Type Department Care Team (Late st Contact Info) Description 08/09/2024 Telephone [facility] [address] [place] [address] Rolanda Thakur MD [address] [place] [address] Nurse Triage Social History Tobacco Use Types [...] precautions and reasons to call back. Reviewed [facility] operating hours and that wait times vary. Protocol Used: Neck Pain or Stiffness (Adult) Protocol-Based Disposition: See in Office or Video Visit Today or Tomorrow Future Appointments Date Time Provider Department Center 08/10/2024 9:40 AM [facility] 2 WALK-IN [facility] Insurance verified as active per [employer] Time Eligibility in [facility]. Positive Triage Question: * Tenderness in front [...] documented as of this encounter Care Teams Screw Machine Operator Swiss Type Relationship Specialty Start Date End Date Rolanda Thakur MD [address] [place] [address] PCP - General Internal Medicine 09/19/22 documented as of this encounter
--- OUTSIDE RECORDS SUMMARY | 2024-11-27 13:56 | XMS_ITS | Encounter Summary ---
Author Organization [employer] Address [address] [place] [address] Care Team Providers Care Home Theater Expert Name Role Phone Rolanda Thakur MD Primary Care Provider [phone]- [phone] Reason for Visit * Reason Onset Date Comments Nurse Triage 12/12/2023 Encounter Details Date Type Department Care Team (Late st Contact Info) Description 12/12/2023 Telephone [facility] MED[facility]INE [address] [place] [address] Rolanda Thakur MD [address] [place] [address] Nurse Triage Social History Tobacco Use Types [...] from pt requesting to speak to PCP boat outfitting supervisorcasino shift manager in regards to scheduled sick visit tmr, states was advised to contact PCP before scheduled appt to see how pt is doing, pt stated they still has a severe cough. Gas Plant Specialist did advised appt is still expected. Pt is scheduled tmr 12/15/23 for ( chest congestion, cough , yellow nasal drainage. ) Please contact at [phone] * Telephone Encounter - Viktoria Schultz RN [...] point. Pt is advised to come to [facility] today to be seen since open till 8pm. PT is not sure if will be able to do that. Gas Plant Specialist contacted Haylie Barrientos [facility] and asked if would be possible to schedule Pt at [facility] 12/15/23 340pm apt which Pt [...] on filedocumented in this encounter Care Teams Home Theater Expert Relationship Specialty Start Date End Date Rolanda Thakur MD [address] [place] [address] PCP - General Internal Medicine 09/19/22 documented as of this encounter
--- OUTSIDE RECORDS SUMMARY | 2024-11-27 13:56 | XMS_ITS | Encounter Summary ---
Author Organization [employer] Address [address] [place] [address] Care Team Providers Care Senior Business Development Analyst Name Role Phone Rolanda Thakur MD Primary Care Provider [phone]- [phone] Reason for Visit * Reason Onset Date Comments Med Refill 10/27/2023 Encounter Details Date Type Department Care Team (Late st Contact Info) Description 10/27/2023 Telephone [facility] MEDICINE [address] [place] [address] Rolanda Thakur MD [address] [place] [address] Med Refill Social History Tobacco Use Types [...] on medication 125 Please contact pt @ [phone] No meds. * Telephone Encounter - Haylie Cantor RN - 10/27/2023 3:44 PM EST Patient reporting alternating days of synthroid 125 mcg and synthroid 137 mcg. Requesting new script for synthroid 125 mcg. Please review and advise, thanks. Tc from pt requesting levothyroxine (Synthroid) 125 MCG tablet, automobile service writer do not see med in chart but pt stated has been taking this medication for 10 years, pt switch 137 and 125 every day, automobile service writer attempted to contact pharmacy for clarifications but [facility] [address] open at 9:00AM. * Telephone Encounter - Jenny Neff - 10/27/2023 8:31 AM EST Tc from pt requesting levothyroxine (Synthroid) 125 MCG tablet, automobile service writer do not see med in chart but pt stated has been taking this medication for 10 years, pt switch 137 and 125 every day, automobile service writer attempted to contact pharmacy for clarifications but [facility] [address] open at 9:00AM. documented in this encounter Plan of Treatment Not on file documented as of this encounter Visit Diagnoses Not on filedocumented in this encounter Care Teams Senior Business Development Analyst Relationship Specialty Start Date End Date Rolanda Thakur MD [address] [place] [address] PCP - General Internal Medicine 09/19/22 documented as of this encounter
--- OUTSIDE RECORDS SUMMARY | 2024-11-27 13:56 | XMS_ITS | Encounter Summary ---
Author Organization [employer] Address [address] [place] [address] [place] [address] Care Team Providers Care Mds Nurse Name Role Phone Rolanda Thakur MD Primary Care Provider Reason for Visit * Reason Onset Date Comments Medication Question 12/08/2022 Encounter Details Date Type Department Care Team ([facility] st Contact Info) Description 12/08/2022 Telephone [facility] [address] [place] [address] Rolanda Thakur MD [address] [place] [address] Medication Question Social History Tobacco Use Types [...] on filedocumented in this encounter Care Teams Mds Nurse Relationship Specialty Start Date End Date Rolanda Thakur MD [address] [place] [address] PCP - General Internal Medicine 09/19/22 documented as of this encounter
--- OUTSIDE RECORDS SUMMARY | 2024-11-27 13:56 | XMS_ITS | Encounter Summary ---
Author Organization [employer] Address [address] [place] [address] Care Team Providers Care Credit Controller Name Role Phone Rolanda Thakur MD Primary Care Provider [phone]- [phone] Reason for Referral * Consultation (Routine) - Closed Specialty Diagnoses / Procedures Referred By Contac t Referred To Contact Behavioral Health Diagnoses Anxiety Rolanda Thakur MD [address] [place] [address] Phone: tel: fax: Referral ID Status Reason Start Date Expiration Date V isits Requested Visits Authorized [id number] Closed Specialty Services Required 05/02/2024 05/02/2025 1 1 Encounter Details Date Type Department Care Team ([facility] Contact Info) Description 05/02/2024 Orders Only [facility] [address] [place] [address] Rolanda Thakur MD [address] [place] [address] Anxiety (Primary Dx) Social History Tobacco Use [...] unspecified documented in this encounter Care Teams Credit Controller Relationship Specialty Start Date End Date Rolanda Thakur MD [address] [place] [address] PCP - General Internal Medicine 09/19/22 documented as of this encounter
--- OUTSIDE RECORDS SUMMARY | 2024-11-27 13:56 | XMS_ITS | Encounter Summary ---
Author Organization [employer] Address [address] [place] [address] Care Team Providers Care Raise Miner Name Role Phone Rolanda Thakur MD Primary Care Provider +1- [phone] Encounter Details Date Type Department Care Team ([facility] st Contact Info) Description 12/28/2023 Orders Only [facility] [address] [place], [place] [phone] Rolanda Thakur MD [address] [place] [address] Social History Tobacco Use Types Packs/Day Years [...] on filedocumented in this encounter Care Teams Raise Miner Relationship Specialty Start Date End Date Rolanda Thakur MD [address] [place] [address] PCP - General Internal Medicine 09/19/22 documented as of this encounter
--- OUTSIDE RECORDS SUMMARY | 2024-11-27 13:56 | XMS_ITS | Encounter Summary ---
Author Organization [employer] Address [address] [place] [address] [place] [address] Care Team Providers Care Copy Cutter Name Role Phone Rolanda Thakur MD Primary Care Provider +1- [phone] Encounter Details Date Type Department Care Team (Latest Contact Info) Description 08/17/2021 Abstract [facility], Provider, DDS Social History Tobacco [...] on filedocumented in this encounter Care Teams Copy Cutter Relationship Specialty Start Date End Date Rolanda Thakur MD [address] [facility] [place] [address] PCP - General Internal Medicine 09/19/22 documented as of this encounter
--- OUTSIDE RECORDS SUMMARY | 2024-11-27 13:56 | XMS_ITS | Encounter Summary ---
Author Organization [employer] Address [address] [place] [address] Care Team Providers Care Legal Instruments Examiner Name Role Phone Rolanda Thakur MD Primary Care Provider Encounter Details Date Type Department Care Team ([facility] st Contact Info) Description 08/18/2023 Orders Only [facility]S [address] [place] [address] Rolanda Thakur MD [address] [place] [address] Social History Tobacco Use Types Packs/Day Years [...] on filedocumented in this encounter Care Teams Legal Instruments Examiner Relationship Specialty Start Date End Date Rolanda Thakur MD [address] [place] [address] PCP - General Internal Medicine 09/19/22 documented as of this encounter
--- OUTSIDE RECORDS SUMMARY | 2024-11-27 13:56 | XMS_ITS | Clinical Summary ---
Author Organization [employer] Address [address] [place] [address] 7 [place] [address] Care Team Providers Care Underground Miner Name Role Phone Rolanda Thakur MD Primary Care Provider [phone] Allergies Active Allergy Reactions Criticality Noted Date [...] complication, without long-term current use of insulin ([facility]) Chew 4 tablets (16 g) if needed for low blood sugar. 50 tablet 12 03/06/20 24 2024 Active glucose blood (Posibauch Ultra) test stripIndications: Type 2 diabetes mellitus without complication, without long-term current use of insulin ([facility]) USE DIRECTED TO TEST BLOOD GLUCOSE TWICE DAILY 100 strip 11 07/05/20 24 Active metFORMIN (Glucophage) 500 MG tabletIndications :Type 2 diabetes mellitus without complication, without long-term current use of insulin ([facility]) TAKE 1 TABLET BY MOUTH TWICE DAILY [...] 2024 Discontinued(D ose adjustment) Continuous Glucose Sensor (Provendercom G7 Sensor) miscIndications:T ype 2 diabetes mellitus without complication, without long-term current use of insulin (CMS/HCC) 1 Units Once per day AND 1 Units Once per day. Apply 1 sensor every 10 days. 3 each 10/11/192024 glipiZIDE XL (Glucotrol XL) 10 MG 24 hr tabletIndications :Type 2 diabetes mellitus without complication, without long-term current use of insulin ([facility]) Take 1 tablet (10 mg) by mouth [...] Plan: Augmentin BID x 10 days Nasal [place] Follow up if worsening or no improvement [...] intervention , [facility], Patient to engage in OP therapy , and Patient to reach out to [facility] as needed Swelling of lip, tongue, and throat 05/10/2024 Assessment & Plan (05/22/2024 1:00 PM EDT): Patient reports episodes of swelling of exposure to different antigens, at this moment given recurrence and symptoms affecting patients daily, will strongly benefit of assessment from environmental health and safety leader to help elucidate etiology of symptoms. Peripheral [...] Type Department Care Team Description 11/27/2024 Telephone [facility] MEDICINE [address] [place] [phone] Rolanda Thakur MD Call Back Request 11/26/2024 6:40 PM EDT Office Visit [facility] WALK-IN CENTER [address] [place] [phone] Ilsa Arana MD Recent urinary tract infection (Primary Dx) 11/26/2024 Orders Only [facility] MEDICINE [address] [place] [phone] Ilsa Arana MD 11/26/2024 Travel 11/26/2024 Telephone [facility] MEDICINE [address] [place] [address] Rolanda Thakur MD Nurse Triage 11/22/2024 Telephone [facility] MEDICINE [address] [place] [address] Rolanda Thakur MD 11/20/2024 Orders Only [facility] CHC MED & PEDS [address] [place] [address] Rolanda Thakur MD Type 2 diabetes mellitus without complication, without long-term current use of insulin (CMS/HCC) (Primary Dx); UTI symptoms 11/19/2024 Telephone [facility] MEDICINE [address] [place] [address] Rolanda Thakur MD FYI 11/19/[address] [address] Rolanda Thakur MD Nurse Triage 11/14/2024 4:00 PM EDT Office Visit [facility] MED & PEDS [address] [place] [address] Rolanda Thakur MD Type 2 diabetes mellitus without complication, without long-term current use of insulin (CMS/HCC) (Primary Dx); Bronchitis 11/14/2024 Travel 11/12/2024 7:20 PM EDT Office Visit [facility] [address] [place] [phone] Ilsa Arana MD FB eye, left, initial encounter (Primary Dx) 11/12/2024 Travel 11/09/2024 Orders Only GENERIC EXTERNAL DATA DEPARTMENT Provider, Generic External Data 11/07/2024 Orders Only [address] [address] Rolanda Thakur MD Type 2 diabetes mellitus without complication, without long-term current use of insulin (CMS/HCC) (Primary Dx); Benign essential hypertension 11/06/[address] [address] Rolanda Thakur MD Appointment Request 10/31/[address] [address] Rolanda Thakur MD Call Back Request 10/31/[address] [address] Rolanda Thakur MD FYI ; Call Back Request 10/31/[address] [address] Rolanda Thakur MD Nurse Triage 10/28/2024 Telephone [facility] MED & PEDS [address] [place] [address] Rolanda Thakur MD 10/23/2024 Telephone [facility] MED & PEDS [address] [place] [address] Apple Britton, Carleen 10/14/2024 Patient Outreach [facility] MED & PEDS [address] [place] [address] Rolanda Thakur MD Care Coordination (CHW outreach for SDOH-patient declined to participate ) 10/14/[address] [address] Rolanda Thakur MD 10/11/2024 3:45 PM EST Office Visit [facility] MED & PEDS [address] [place] [address] Rolanda Thakur MD Type 2 diabetes mellitus without complication, without long-term current use of insulin (CMS/HCC) (Primary Dx); Generalized anxiety disorder with panic attacks; Financial difficulties; Meralgia paresthetica of right side 10/11/[address] [address] Rolanda Thakur MD FYI 10/11/2024 Travel 10/08/2024 Telephone [facility] MED & PEDS [address] [place] [address] Rolanda Thakur MD Change PCP 10/08/2024 Orders Only [facility] MED & PEDS [address] [place] [address] Rolanda Thakur MD Type 2 diabetes mellitus without complication, without long-term current use of insulin (CMS/HCC) (Primary Dx) 10/08/2024 Telephone [facility] MED [facility] PEDS [address] [place] [address] Rolanda Thakur MD 09/24/2024 Orders Only GENERIC EXTERNAL DATA DEPARTMENT Provider, Generic External Data 09/24/[address] [address] Rolanda Thakur MD Nurse Triage 09/23/2024 Telephone [facility] MED [facility] PEDS [address] [place] [address] Huong Heredia, MINOO 09/23/2024 Orders Only [facility] MED [facility] PEDS [address] [place] [address] Rolanda Thakur MD Acquired hypothyroidism (Primary Dx); Benign essential hypertension 09/18/2024 Refill [facility] MEDICINE [address] [place] [address] Wyatt Huziar MD Neck pain on left side 09/17/2024 Refill [facility] MED & PEDS [address] [place] [address] Rolanda Thakur MD Diabetic polyneuropathy associated with type 2 diabetes mellitus (CMS/HCC) 09/15/2024 Refill [facility] MED [facility] PEDS [address] [place] [address] Rolanda Thakur MD 09/10/2024 3:45 PM EST Office Visit [facility] MED [facility] PEDS [address] [place] [address] Rolanda Thakur MD Type 2 diabetes mellitus without complication, without long-term current use of insulin (CMS/HCC) (Primary Dx); Diabetic polyneuropathy associated with type 2 diabetes mellitus (CMS/HCC); Spondylosis of cervical region without myelopathy or radiculopathy; Benign essential hypertension 09/10/2024 Travel 09/04/2024 Refill [facility] MED [facility] PEDS [address] [place] [address] Rolanda Thakur MD Anxiety; Benign essential hypertension [...] 1991 FOBT 01/03/2023 01/03/2022 Diabetes: Hemoglobin A1C 10/06/20242 024, 01/19/2024, 10/10/2023, Additional history exists Diabetes: [...] TO MICROSCOPIC Routine 11/26/2024 6:53 PM EDT CULTURE, URINE, ROUTINE Routine 11/23/2024 9:05 AM EDT Type 2 diabetes mellitus without complication, without long-term current use of insulin ([facility]) UTI symptoms CBC WITH AUTO DIFFERENTIAL Routine [...] complication, without long-term current use of insulin ([facility]/HCC) Decreased GFR ALBUMIN, RANDOM URINE W/CREATININE Routine 07/17/2024 2:55 PM EST Type 2 diabetes mellitus without complication, without long-term current use of insulin ([facility]/HCC) Decreased GFR POCT GLYCATED HEMOGLOBIN, TOTAL Routine 07/06/2024 9:32 AM EST Type 2 diabetes mellitus without complication, without long-term current use of insulin ([facility]/HCC) HM IFOBT Routine 01/03/2022 from Last 3 Months or Most Recently Relevant to Health Maintenance Results * Urinalysis with Reflex to Microscopic (11/26/2024 6:53 PM EDT) Color Urine Yellow [facility] Appearance Urine Clear [facility] PH 6.0 5.0 - 9.0 [facility] Glucose Urine UA Negative Negative mg/dL [facility] Urine Blood Negative Negative [facility] Specific [place] - Urine <=1.005 1.005 - 1.025 [facility] Urine Protein Negative Neg-Trace mg/dL [facility] Urine Ketones Negative Negative mg/dL [facility] Nitrite Urine Negative Negative [facility] Leukocyte Esterase Urine Negative Negative [facility] 11/26/2024 6:53 PM EDT 11/27/2024 11:49 AM EDT us Ilsa Arana MD LAB URINE ORDERABLES Final Result [facility] [address] [place] [phone] [phone] * Culture, Urine, Routine (11/23/2024 9:05 AM EDT) Urine Urine specimen obtained by clean catch procedure / Unknown 11/23/2024 9:05 AM EDT 11/23/2024 11:26 AM EDT Comment:UACC Narrative [facility] - 11/24/2024 11:22 AM EDT Urine Culture Report Result Urine Culture 10,000 to 50,000 cfu/ml Urine Culture Mixed bacterial hailey characteristic of Urine Culture urogenital contamination. Specimen Source: Urine clean catch Rolanda Thakur MD LAB MICROBIOLOGY - GENERAL ORDERABLES Final Result [facility] [address] [place] [address] [phone] * (ABNORMAL) CBC auto differential (11/23/2024 9:00 AM EDT) Only the most recent of3 resultswithin the time period is included. White Blood Count 8.5 4.8 - 10.8 X10*3/uL [facility] Red Blood Count 4.27 4.20 - 5.50 X10*6/uL [facility] Hemoglobin 12.8 12.0 - 16.0 g/dl [facility] Hematocrit 37.0 37.0 - 47.0 % [facility] Mean Corpuscular Volume 86.7 80.0 - 98.0 fL [facility] Mean Corpuscular Hemoglobin 30.0 27.0 - 33.0 pg [facility] Mean Corpuscular HGB Conc 34.6 31.0 - 35.0 g/dl [facility] Red Cell Distribution Width 13.1 11.0 - 16.0 % [facility] Platelet Count 269 160 - 400 X10*3/uL [facility] Mean Platelet Volume 9.1(L) 9.4 - 12.3 fL [facility] Neutrophils Percent Auto 64.4 45 - 73 % [facility] Imm Gran Pct Auto 0.4 0.0 - 0.4 % [facility] Lymphocytes Percent Auto 23.8 20 - 40 % [facility] Monocytes Percent Auto 5.9 2 - 11 % [facility] Eosinophils Percent Auto 4.7(H) 0 - 4 % [facility] Basophils Percent Auto 0.8 0 - 2 % [facility] NRBC Pct Auto 0.0 0.0 - 0.2 /100WBC [facility] Neutrophils Absolute Auto 5.4 2.0 - 8.3 x10*3/uL [facility] Imm Gran Abs Auto 0.03 0.00 - 0.03 X10*3/uL [facility] Lymphocytes Absolute Auto 2.0 1.2 - 4.9 X10*3/uL [facility] Monocytes Absolute Auto 0.5 0.1 - 1.2 X10*3/uL [facility] Eosinophils Absolute Auto 0.4 0.0 - 0.4 X10*3/uL [facility] Basophils Absolute Auto 0.1 0.0 - 0.2 X10*3/uL [facility] NRBC Abs Auto 0.000 0.0 - 0.012 X10*3/uL [facility] Blood Venous blood specimen / Unknown 11/23/2024 9:00 AM EDT 11/23/2024 11:37 AM EDT Rolanda Thakur MD LAB BLOOD ORDERABLES Final Result [facility] [address] [place] [phone] [phone] * (ABNORMAL) Basic Metabolic Panel (11/23/2024 9:00 AM EDT) Only the most recent of2 resultswithin the time period is included. Sodium 135 135 - 145 mmol/L [facility] Potassium 4.4 3.3 - 5.1 mmol/L [facility] Chloride 103 96 - 108 mmol/L [facility] Carbon Dioxide 24 22 - 29 mmol/L [facility] Anion Gap 12 12 - 20 [facility] Urea Nitrogen (BUN) 21(H) 9 - 16 mg/dL [facility] Creatinine, Serum 0.89 0.5 - 1.4 mg/dL [facility] Estimated Glomerular Filt Rate >60 [facility] Comment:Chronic Kidney Disea se: Estimated GFR < 60 mL/min/1.35e3Ynestf Kidney Disease: Estimated GFR < 15 mL/min/1.73m2 Glucose 161(H) 60 - 115 mg/dL [facility] Calcium 10.2 8.4 - 10.2 mg/dL [facility] Blood Venous blood specimen / Unknown 11/23/2024 9:00 AM EDT 11/23/2024 11:37 AM EDT us Rolanda Thakur MD LAB BLOOD ORDERABLES Final Result Performing Organization Address City/State/[facility] Co de Phone Number [facility] [address] [place] [phone] * POCT Glucose (11/14/2024 4:29 PM EDT) Only the most recent of2 resultswithin the time period is included. Glucose Blood, POC 139 60 - 200 mg/dL Comment:Random QC Media Lot # [id number] Lot# Expiration Date 668 Blood Capillary blood specimen / Unknown 11/14/2024 4:29 PM EDT Rolanda Thakur MD POINT OF CARE TEST ENTER/ED IT ORDERABLES Final Result * (ABNORMAL) SARS-CoV-2 RNA, Influenza A/B, and RSV RNA, Ql NAAT (11/09/2024 9:08 AM EDT) Only the most recent of2 resultswithin the time period is included. Influenza A PCR NEGATIVE Negative [facility] Influenza B PCR NEGATIVE Negative [facility] Resp Syncy Virus RNA Qual PCR NEGATIVE Negative [facility] SARS COV2 PCR POSITIVE(A) Negative [facility] Comment:All test results mus t [...] use by authorized laboratories.Testing performed on the [facility] GeneXpert utilizingreal-time RT-PCR.All SARS CoV2 and positive influenza A/B results arereported to [facility]. 11/09/2024 9:08 AM EDT 11/09/2024 1:15 PM EDT Generic External Data Provider LAB MICROBIOLOGY - GENERAL ORDERABLES Final Result [facility] [address] [place] [phone] [phone] * (ABNORMAL) Basic Metabolic Panel, Fasting (09/24/2024 1:40 PM EST) Sodium 139 135 - 145 mmol/L [facility] Potassium 3.8 3.3 - 5.1 mmol/L [facility] Chloride 106 96 - 108 mmol/L [facility] Carbon Dioxide 22 22 - 29 mmol/L [facility] Anion Gap 15 12 - 20 [facility] Urea Nitrogen (BUN) 13 9 - 16 mg/dL [facility] Creatinine, Serum 0.94 0.5 - 1.4 mg/dL [facility] Estimated Glomerular Filt Rate 58 [facility] Comment:Chronic Kidney Disea se: Estimated GFR < 60 mL/min/1.29h0Omryrh Kidney Disease: Estimated GFR < 15 mL/min/1.73m2 Glucose Fasting 169(H) 60 - 99 mg/dL [facility] Comment:A fasting glucose of 126 mg/dl or greater on more than oneoccasion is considered diagnostic of diabetes. Calcium 9.9 8.4 - 10.2 mg/dL [facility] Blood Venous blood specimen / Unknown 09/24/2024 1:40 PM EST 09/24/2024 4:21 PM EST Rolanda Thakur MD LAB BLOOD ORDERABLES Final Result Performing Organization Address [facility]/ZIP Co de Phone Number [facility] [address] [place] [phone] * TSH W/Reflex to FT4 (09/24/2024 1:40 PM EST) TSH reflex Free T4 0.38 0.32 - 4.0 uIU/mL [facility] Blood Venous blood specimen / Unknown 09/24/2024 1:40 PM EST 09/24/2024 4:21 PM EST us Rolanda Thakur MD LAB BLOOD ORDERABLES Final Result Performing Organization Address [facility] Co de Phone Number [facility] [address] [place] [phone] * Aldosterone/Plasma Renin Activity Ratio, LC/MS/MS (09/24/2024 1:40 PM EST) Aldosterone 2 see note ng/dL [facility] Comment:Unable to flag abnor mal result(s), please refer to reference range(s) below:Adult Reference Ranges for Aldosterone, LC/MS/MS: Upright 8:00 - 10:00 am < or = 28 ng/dL Upright 4:00 - 6:00 pm < or = 21 ng/dL Supine 8:00 - 10:00 am 3 - 16 ng/dLTHIS TEST WAS PERFORMED AT:[employer]/[facility]PF[facility]HC[address] [place] [address]RILZWTBTHEO PEDERSEN MD,PHD Plasma Renin Activity 0.52 0.25 - 5.82 ng/mL/h [facility] Aldosterone/Renin Ratio 3.8 0.9 - 28.9 Ratio [facility] Comment:This test was develo ped and its analytical performancecharacteristics have been determined by [employer] [place], [place]. It hasnot been cleared or approved by the U.S. Food and DrugAdministration. This assay has been validated pursuantto the CLIA regulations and is used for clinicalpurposes.THIS TEST WAS PERFORMED AT:[employer]/[facility] [place] [address]KZEWXMLTHEO PEDERSEN MD,PHD Blood Venous blood specimen / Unknown 09/24/2024 1:40 PM EST 09/24/2024 4:21 PM EST us Rolanda Thakur MD LAB BLOOD ORDERABLES Final Result [facility] [address] [place] [phone] * Cologuard?? colon cancer screening (08/09/2024 8:30 AM EST) Cologuard Result Negative Negative 08/18/20 11:52 PM EST [employer] (CLIA #:[id number]) Comment: NEGATIVE TEST RESULT. A negative Cologuard [...] cancer. ??Following a negative Cologuard result, the [place] [employer] Society and U.S. Multi-Society Task Force screening guidelines recommend a Cologuard re-screening interval of 3 years. References: [place] [employer] Guideline for Colorectal Cancer Screening: https://www.cancer.org/cancer/auubr-qwkcfo-kqxfvu/wpumfqgtw-nrrgttwmw-tgruqms/ac s-rec ommendations.html.; Santiago DK, Ileana PERERA, Emery LalaK, Colorectal Cancer Screening: Recommendations for Physicians and Patients from the U.S. Multi-Society Task Force on Colorectal Cancer Screening , Am J Gastroenterology 2017; 112:5858-8574. TEST DESCRIPTION: Composite algorithmic analysis of stool [...] (Dioni Kelly al, N Engl J Med 2014;370(14):8564-4602.) Cologuard may produce a false negative or false positive result (no colorectal cancer or precancerous polyp present at colonoscopy follow up). A negative Cologuard test result does not guarantee the absence of CRC or advanced adenoma (pre-cancer). The current Cologuard screening interval is every 3 years. ([place] [employer] Society and U.S. Multi-Society Task Force). Cologuard performance data in a 10,000 patient pivotal study using colonoscopy as the reference method can be accessed at the following location: www.[employer]/results. Additional description of the Cologuard test process, warnings and precautions can be found at www.cologuard.com. Stool specimen (specimen) 08/09/2024 8:30 AM EST 08/10/2024 2:47 PM EST us Rolanda Thakur MD LAB MOLECULAR DIAGNOSTICS O RDERABLES Final Result [employer] (CLIA #:[id number]) [address] [place] [address], * Hepatitis C Antibody with Reflex to HCV, RNA, Quantitative, Real-Time PCR (07/17/2024 3:20 PM EST) Pathologist [facility] Hepatitis C Antibody Nonreactive Nonreactive [facility] Comment:Antibodies to HCV no t detected; does not exclude early acuteHCV infection. Blood Venous blood specimen / Unknown 07/17/2024 3:20 PM EST 07/17/2024 5:23 PM EST us Rolanda Thakur MD LAB BLOOD ORDERABLES Final Result [facility] [address] [place] [phone] * (ABNORMAL) Lipid Panel, Standard (07/17/2024 3:20 PM EST) Triglycerides 89 <150 mg/dL [facility] Comment:Desirable Triglyceri de: less than 150 mg/dLBorderline High Triglyceride 150-199 mg/dLHigh Triglyceride: 200-499 mg/dLVery High Triglyceride: greater than or equal to 5OO mg/dL Cholesterol 193 <200 mg/dL [facility] Comment:Desirable Cholestero l: less than 200 mg/dLBorderline High Cholesterol: 200-239 mg/dLHigh Cholesterol: greater than 239 mg/dL LDL Cholesterol Calculated 111(H) <100 mg/dL [facility] Comment:Desirable LDL: less than 100 [...] BLOOD ORDERABLES Final Result Performing Organization Address [facility] Co de Phone Number [facility] [address] [place] [phone] * Albumin, Random Urine W/Creatinine (07/17/2024 2:55 PM EST) Creatinine, Urine 38.88 mg/dL [facility] Microalbumin Urine <5.0 mg/L [facility] Microalbum Creatinine Ratio Ur TNP <30 ug/mg cr [facility] Comment:Unable to calculate albumin/creatinine ratio due to lowmicroalbumin or creatinine result. Urine (Urine, Random) 07/17/2024 2:55 PM EST 07/17/2024 5:25 PM EST us Rolanda Thakur MD LAB URINE ORDERABLES Final Result Performing Organization Address [facility]/ZIP Co de Phone Number [facility] [address] [place] [phone] * (ABNORMAL) POCT HGB A1C (07/06/2024 [...] Most Recently Relevant to Health Maintenance Insurance [facility] MEDICARE REPLACEMENT [facility] MEDICARE ADVANTAGE HMO [place] G[place] [id number] P[place] G[place] [id number] Care Teams Underground Miner Relationship Specialty Start Date End Date Rolanda Thakur MD [address] [place] [address] Rasheeda GELY [address] PCP - General Internal Medicine 09/19/22
--- OUTSIDE RECORDS SUMMARY | 2024-11-27 13:56 | XMS_ITS | Encounter Summary ---
Author Organization [employer] Address [address] [place] [address] Care Team Providers Care Mold Chipper Name Role Phone Rolanda Thakur MD Primary Care Provider [phone] Reason for Referral * Consultation (Routine) - Closed Specialty Diagnoses / Procedures Referred By Contac t Referred To Contact Podiatry Diagnoses Type 2 diabetes mellitus without complication, without long-term current use of insulin (CMS/HCC) Rolanda Thakur MD [address] [place] [address] Phone: tel: fax: Carl Avitia DPM Phone: tel: fax: Referral ID Status Reason Start Date Expiration Date V isits Requested Visits Authorized [id number] Closed Specialty Services Required 11/01/2023 10/31/2024 1 1 Encounter Details Date Type Department Care Team (Late st Contact Info) Description 10/23/2023 Orders Only [facility] MED [facility] PEDS [address] [place] [address] Rolanda Thakur MD [address] [place] [address] Acquired hypothyroidism (Primary Dx); Type 2 diabetes [...] (CMS/HCC) documented in this encounter Care Teams Mold Chipper Relationship Specialty Start Date End Date Rolanda Thakur MD [address] [place] [phone] PCP - General Internal Medicine 09/19/22 documented as of this encounter
--- OUTSIDE RECORDS SUMMARY | 2024-11-27 13:56 | XMS_ITS | Encounter Summary ---
Author Organization [employer] Address [address] [facility] 7 [place] [address] Care Team Providers Care Stock Dealer Name Role Phone Rolanda Thakur MD Primary Care Provider [phone] Encounter Details Date Type Department Care Team ([facility] Contact Info) Description 10/08/2024 Telephone [facility] MED [facility] PEDS [address] [place] [address] Rolanda Thakur MD [address] [place] [address] Social History Tobacco Use Types Packs/Day Years [...] documented as of this encounter Care Teams Stock Dealer Relationship Specialty Start Date End Date Rolanda Thakur MD [address] [place] [phone] PCP - General Internal Medicine 09/19/22 documented as of this encounter
--- OUTSIDE RECORDS SUMMARY | 2024-11-27 13:56 | XMS_ITS | Encounter Summary ---
Author Organization [employer] Address [address] [place] [address] Care Team Providers Care Cash Register Servicer Name Role Phone Rolanda Thakur MD Primary Care Provider +1- [phone] Reason for Referral * Consultation (Routine) - Canceled Specialty Diagnoses / Procedures Referred By Contac t Referred To Contact Endocrinology Diagnoses Type 2 diabetes mellitus without complication, without long-term current use of insulin (CMS/HCC) Rolanda Thakur MD [address] [place] [address] Phone: tel: fax: Referral ID Status Reason Start Date Expiration Date Visits Requested Visits Authorized [id number] Canceled Specialty Services Required 10/08/2024 10/08/2025 1 1 Encounter Details Date Type Department Care Team (Late st Contact Info) Description 10/08/2024 Orders Only [facility] MED & PEDS [address] [place] [address] Rolanda Thakur MD [address] [place], [place] [phone] Type 2 diabetes mellitus without complication, without [...] without long-term current use of insulin ([facility]) Expected: 10/08/2024 (Approximate), Expires: 10/08/2025 Scheduled Referrals Name Type Priority Associated Diagnoses Order Schedule Referral to Endocrinology Outpatient Referral Routine Type 2 diabetes mellitus without complication, without long-term current use of insulin (CMS/[facility]) Expected: 10/08/2024 (Approximate), Expires: 10/08/2025 documented as of this encounter Visit Diagnoses Diagnosis Type 2 diabetes mellitus without complication, without long-term current use of insulin ([facility])- Primary documented in this encounter Additional Health Concerns Assessment Noted Time PHQ-9 Depression Total Score: 2 05/13/20 24 9:24 AM EDT documented as of this encounter Care Teams Cash Register Servicer Relationship Specialty Start Date End Date Rolanda Thakur MD [address] [place] [address] PCP - General Internal Medicine 09/19/22 documented as of this encounter
--- OUTSIDE RECORDS SUMMARY | 2024-11-27 13:56 | XMS_ITS | Encounter Summary ---
Author Organization [employer] Address [address] [place] [address] Care Team Providers Care Lease Administration Analyst Name Role Phone Rolanda Thakur MD Primary Care Provider +1- [phone] Reason for Visit * Reason Onset Date Comments Nurse Triage 01/03/2024 Encounter Details Date Type Department Care Team (Late st Contact Info) Description 01/03/2024 Telephone [facility] MEDICINE [address] [place] [address] Rolanda Thakur MD [address] [place] [address] Nurse Triage Social History Tobacco Use Types [...] Miscellaneous Notes * Telephone Encounter - Janis Goowdin RN - 01/03/2024 10:26 AM EDT Portal [...] on filedocumented in this encounter Care Teams Lease Administration Analyst Relationship Specialty Start Date End Date Rolanda Thakur MD [address] [place] [address] PCP - General Internal Medicine 09/19/22 documented as of this encounter
--- OUTSIDE RECORDS SUMMARY | 2024-11-27 13:56 | XMS_ITS | Encounter Summary ---
Author Organization [employer] Address [address] [place] [address] Care Team Providers Care Underwriting Director Name Role Phone Rolanda Thakur MD Primary Care Provider +1- [phone] Reason for Visit * Reason Onset Date Comments Medication Question 10/23/2023 Encounter Details Date Type Department Care Team (Late st Contact Info) Description 10/23/2023 Telephone [facility] MEDICINE [address] [place] [address] Rolanda Thakur MD 505 [place], [place] [phone] Medication Question Social History Tobacco Use Types [...] filedocumented in this encounter Care Teams Underwriting Director Relationship Specialty Start Date End Date Rolanda Thakur MD [address] [place] [phone] PCP - General Internal Medicine 09/19/22 documented as of this encounter
--- OUTSIDE RECORDS SUMMARY | 2024-11-27 13:56 | XMS_ITS | Encounter Summary ---
Author Organization [employer] Address [address] [place] [address] Care Team Providers Care Screwmaker Automatic Name Role Phone Rolanda Thakur MD Primary Care Provider +1- [phone] Reason for Visit * Reason Onset Date Comments Call Back Request 11/17/2023 Encounter Details Date Type Department Care Team ([facility] st Contact Info) Description 11/17/2023 Telephone [facility] MEDICINE [address] [place] [address] Rolanda Thakur MD [address] [place] [address] Call Back Request Social History Tobacco Use [...] Message sent to PCP for review through [employer] portal * Telephone Encounter - Jenny Neff - 11/17/2023 8:06 AM EDT Tc from pt requesting a call back pt stated needs more information and clarifications 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 Please contact pt. documented in this encounter Plan of Treatment Not on file documented as of this encounter Visit Diagnoses Not on filedocumented in this encounter Care Teams Screwmaker Automatic Relationship Specialty Start Date End Date Rolanda Thakur MD [address] [place] [address] PCP - General Internal Medicine 09/19/22 documented as of this encounter
--- OUTSIDE RECORDS SUMMARY | 2024-11-27 13:56 | XMS_ITS | Encounter Summary ---
Author Organization [employer] Address [address] [place] [address] [place] [address] Care Team Providers Care Director Industrial Relations Name Role Phone Rolanda Thakur MD Primary Care Provider +1- [phone] Reason for Visit * Reason Onset Date Comments Referral 09/29/2022 Encounter Details Date Type Department Care Team ([facility] st Contact Info) Description 09/29/2022 Telephone [facility] CHC MED & PEDS [address] [place] [address] Rolanda Thakur MD 505 [place] [address] Referral Social History Tobacco Use Types Packs/Day [...] to fax order to Dr Dempsey on [phone] Dempsey's office on [phone]. Will forward message to provider. RN called Roxanne and gave her the phone and fax number to Dr Dempsey's office and also to f/u when EMG order is placed by PCP. * Telephone Encounter - Machelle Adam RN - 10/03/2022 10:09 AM EST Return call placed to Haylie at [facility] neuroscience, spoke with Jumana who states their office donot see pt for diabetic polyneuropathy but instead sees pt for foot drop or other issue. States Haylieis unavailable at this time but will informed her to call [facility] back if needed. Will forward message to PCP as FYI. * Telephone Encounter - Brinda Barnard - 09/29/2022 1:30 PM EST Tc from Haylie from [facility] med / rehab calling to inform they need more dx clarification for referral that was sent . 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
--- OUTSIDE RECORDS SUMMARY | 2024-11-27 13:56 | XMS_ITS | Encounter Summary ---
Author Organization [employer] Address [address] [place] [address] [place] [address] Care Team Providers Care Roller Picker Name Role Phone Rolanda Thakur MD Primary Care Provider [phone]- [phone] Reason for Referral * Consultation (Routine) - Pending Review Specialty Diagnoses / Procedures Referred By Contac t Referred To Contact Endocrinology Diagnoses Type 2 diabetes mellitus without complication, without long-term current use of insulin (CMS/HCC) Benign essential hypertension Rolanda Thakur MD [address] [place] [address] Phone: tel: fax: [facility] [address] [place] [address] Phone: tel: fax: Referral ID Status Reason Start Date Expiration Date Visits Requested Visits Authorized [id number] Pending Review Specialty Services Required 11/07/2024 11/07/2025 1 1 Encounter Details Date Type Department Care Team (Late st Contact Info) Description 11/07/2024 Orders Only [facility] MEDICINE 230 [place] [address] Rolanda Thakur MD 505 [place] [address] Type 2 diabetes mellitus without complication, without [...] current use of insulin ([facility]) Benign essential hypertension Expected: 11/07/2024 (Approximate), Expires: 11/07/2025 documented as of this encounter Visit Diagnoses Diagnosis Type 2 diabetes mellitus without complication, without long-term current use of insulin ([facility])- Primary Benign essential hypertension Essential hypertension, benign documented in this encounter Additional Health Concerns Assessment Noted Time PHQ-9 Depression Total Score: 2 05/13/20 24 9:24 AM EDT documented as of this encounter Care Teams Roller Picker Relationship Specialty Start Date End Date Rolanda Thakur MD [address] [place] [address] PCP - General Internal Medicine 09/19/22 documented as of this encounter
--- OUTSIDE RECORDS SUMMARY | 2024-11-27 13:56 | XMS_ITS | Encounter Summary ---
Author Organization [employer] Address 75 [facility] 7 [place] [address] Care Team Providers Care Bag Shaker Name Role Phone Rolanda Thakur MD Primary Care Provider +1- [phone] Reason for Visit * Reason Onset Date Comments FYI 10/11/2024 Encounter Details Date Type Department Care Team (Late st Contact Info) Description 10/11/2024 Telephone [facility] MEDICINE 230 [place] [address] Rolanda Thakur MD 505 [place] [address] FYI Social History Tobacco Use Types Packs/Day [...] as of this encounter Care Teams Bag Shaker Relationship Specialty Start Date End Date Rolanda Thakur MD [address] [place] [address] PCP - General Internal Medicine 09/19/22 documented as of this encounter
--- OUTSIDE RECORDS SUMMARY | 2024-11-27 13:56 | XMS_ITS | Clinical Summary ---
Author Organization [facility] Address [address] [place] [address] Care Team Providers Care Integrity Engineer Name Role Phone Maren Hough MD Primary Care Provider [phone] Social History Tobacco Use Types Packs/Day Years [...] patient's age to complete this topic Insurance [facility] MEDICARE [facility] MEDICARE Care Teams Integrity Engineer Relationship Specialty Start Date End Date Maren Hough MD [address] [place] [address] PCP - General Family Medicine 06/20/22
--- OUTSIDE RECORDS SUMMARY | 2024-11-27 13:56 | XMS_ITS | Encounter Summary ---
Author Organization [employer] Address [address] [place] [address] [place] [address] Care Team Providers Care Doper Operator Name Role Phone Rolanda Thakur MD Primary Care Provider +1- [phone] Encounter Details Date Type Department Care Team (Late st Contact Info) Description 12/07/2023 Telephone [facility] MEDICINE [address] [place] [address] [phone] Rolanda Thakur MD 505 [place] [address] Social History Tobacco Use Types Packs/Day Years [...] on filedocumented in this encounter Care Teams Doper Operator Relationship Specialty Start Date End Date Rolanda Thakur MD [address] [place] [address] PCP - General Internal Medicine 09/19/22 documented as of this encounter
--- OUTSIDE RECORDS SUMMARY | 2024-11-27 13:56 | XMS_ITS | Encounter Summary ---
Author Organization [employer] Address 75 [facility] 7 [place] [address] Care Team Providers Care Sdc Teacher Name Role Phone Rolanda Thakur MD Primary Care Provider [phone]- [phone] Reason for Visit * Reason Onset Date Comments Nurse Triage 09/24/2024 Encounter Details Date Type Department Care Team (Late st Contact Info) Description 09/24/2024 Telephone [facility] MEDICINE 230 [place] [address] Rolanda Thakur MD [address] [place] [address] Nurse Triage Social History Tobacco Use Types [...] WIC for today as no appts in [facility]. Pt states gets panic attacks if has to wait . Pt advised unfortunately no appts in [facility]> Unable to schedule ahead for WIC. Pt states will seek [facility] Walk IN clinic on [facility] in [place]. Will send to team as FYI to [...] acuity questions The caller accepted this outcome. [phone] documented in this encounter Plan of Treatment Not on file documented as of this encounter Visit Diagnoses Not on filedocumented in this encounter Additional Health Concerns Assessment Noted Time PHQ-9 Depression Total Score: 2 05/13/20 24 9:24 AM EDT documented as of this encounter Care Teams Sdc Teacher Relationship Specialty Start Date End Date Rolanda Thakur MD [address] [place] [address] PCP - General Internal Medicine 09/19/22 documented as of this encounter
--- OUTSIDE RECORDS SUMMARY | 2024-11-27 13:56 | XMS_ITS | Encounter Summary ---
Author Organization [employer] Address [address] [place] [address] [place] [address] Care Team Providers Care Manager Fine Name Role Phone Rolanda Thakur MD Primary Care Provider Encounter Details Date Type Department Care Team ([facility] st Contact Info) Description 01/22/2024 Orders Only [facility] CHC MED & PEDS [address] [place] [address] Rolanda Thakur MD 505 [place] [address] Benign essential hypertension Social History Tobacco Use [...] AM EDT Narrative 02/19/2024 12:38 PM EDT ?[facility] ?[address] ?[place] [address] ?XRay Report ? Signed ? Patient: Angely Pineda ?MR#: [id number] ? : 1950 ?Acct:[id number] ? Age/Sex: 73 / F ?ADM Date: 02/19/24 ? Loc: HO.HHCX ? Attending Dr: Migdalia PALMER ? Ordering Physician: Migdalia Loza ?? Date of Service: 02/19/24 ?? Procedure(s): XR toe RT min 2V ?? Accession Number(s): [id number] ? cc: Migdalia Loza ? EXAMINATION: ?? [...] 1234 ? DD/ 112 ? TD/TT: ? Lockstitcher: SS ? Procedure Note Darrell Fonseca - 02/19/2024 [facility] [address] [place] [address] XRay Report Signed Patient: Angely Pineda#: [id number] : 1Acct:[id number] Age/Sex: 73 / FADM Date: 02/19/24 Loc: HO.HHCX Attending Dr: Migdalia PALMER Ordering Physician: Migdalia Loza Date of Service: 02/19/24 Procedure(s): XR toe RT min 2V Accession Number(s): [id number] cc: Migdalia Loza EXAMINATION: BILATERAL TOES CLINICAL [...] in OV> 02/19/24 1234 DD/ 1122 TD/TT: Lockstitcher: SS Migdalia PALMER IMG XR PROCEDURES Edited Resul t - Final documented in this encounter Visit Diagnoses Diagnosis Benign essential hypertension Essential hypertension, benign documented in this encounter Care Teams Manager Fine Relationship Specialty Start Date End Date Rolanda Thakur MD [address] [place] [address] PCP - General Internal Medicine 09/19/22 documented as of this encounter
--- OUTSIDE RECORDS SUMMARY | 2024-11-27 13:56 | XMS_ITS | Encounter Summary ---
Author Organization [employer] Address [address] [place] [address] [place] [address] Care Team Providers Care Generating Station Mechanic Name Role Phone Rolanda Thakur MD Primary Care Provider Reason for Visit * Reason Onset Date Comments Medication Question 12/09/2022 Encounter Details Date Type Department Care Team ([facility] st Contact Info) Description 12/09/2022 Telephone [facility] CHC MED & PEDS 505 [place] [address] Rolanda Thakur MD 505 [place] [address] Medication Question Social History Tobacco Use Types [...] script (levothyroxine (Synthroid) 150 MCG tablet) it uch255 MCG and New script is it 50 mcg so pharmacy is requesting some clarification Please contact Pharmacy at [phone] documented in this encounter Plan of Treatment Not on file documented as of this encounter Visit Diagnoses Not on filedocumented in this encounter Care Teams Generating Station Mechanic Relationship Specialty Start Date End Date Rolanda Thakur MD [address] [place] [address] PCP - General Internal Medicine 09/19/22 documented as of this encounter
--- OUTSIDE RECORDS SUMMARY | 2024-11-27 13:56 | XMS_ITS | Encounter Summary ---
Author Organization [employer] Address [address] [place] [address] [place] [address] Care Team Providers Care Dialysis Rn Name Role Phone Rolanda Thakur MD Primary Care Provider [phone] Encounter Details Date Type Department Care Team ([facility] st Contact Info) Description 03/28/2024 Orders Only [facility] CHC MED & PEDS 505 [place], [place] [phone] Karen Alcantar MD 505 [place] [address] Social History Tobacco Use Types Packs/Day Years [...] filedocumented in this encounter Care Teams Dialysis Rn Relationship Specialty Start Date End Date Rolanda Thakur MD 505 [place] [address] PCP - General Internal Medicine 09/19/22 documented as of this encounter
--- OUTSIDE RECORDS SUMMARY | 2024-11-27 13:56 | XMS_ITS | Encounter Summary ---
Author Organization [employer] Address [address] [place] [address] 7 [place] [address] Care Team Providers Care Psychiatric Aides Teacher Name Role Phone Rolanda Thakur MD Primary Care Provider [phone]- [phone] Encounter Details Date Type Department Care Team ([facility] st Contact Info) Description 09/23/2024 Orders Only [facility] MED & PEDS [address] [place] [address] Rolanda Thakur MD [address] [place] [address] Acquired hypothyroidism (Primary Dx); Benign essential hypertension [...] 3 - 16 ng/dLTHIS TEST WAS PERFORMED AT:[employer] [id number] [place] [id number] PEDERSEN MD,PHD Plasma Renin Activity 0.52 0.25 - 5.82 ng/mL/h [facility] Aldosterone/Renin Ratio 3.8 0.9 - 28.9 Ratio [facility] Comment:This test was develo ped and its analytical performancecharacteristics have been determined by [employer] [place], [place]. It hasnot been cleared or approved by the U.S. Food and DrugAdministration. This assay has been validated pursuantto the CLIA regulations and is used for clinicalpurposes.THIS TEST WAS PERFORMED AT:[employer]Y14[address] [place] [id number] PEDERSEN MD,PHD Blood Venous blood specimen / Unknown 09/24/2024 1:40 PM EST 09/24/2024 4:21 PM EST us Rolanda Thakur MD LAB BLOOD ORDERABLES Final Result [facility] [address] [place] [phone] * TSH W/Reflex to FT4 (09/24/2024 1:40 PM EST) TSH reflex Free T4 0.38 0.32 - 4.0 uIU/mL [facility] Blood Venous blood specimen / Unknown 09/24/2024 1:40 PM EST 09/24/2024 4:21 PM EST us Rolanda Thakur MD LAB BLOOD ORDERABLES Final Result Performing Organization Address [facility] Co de Phone Number [facility] [address] [place] [phone] * (ABNORMAL) Basic Metabolic Panel, Fasting (09/24/2024 1:40 PM EST) Sodium 139 135 - 145 mmol/L [facility] Potassium 3.8 3.3 - 5.1 mmol/L [facility] Chloride 106 96 - 108 mmol/L [facility] Carbon Dioxide 22 22 - 29 mmol/L [facility] Anion Gap 15 12 - 20 [facility] Urea Nitrogen (BUN) 13 9 - 16 mg/dL [facility] Creatinine, Serum 0.94 0.5 - 1.4 mg/dL [facility] Estimated Glomerular Filt Rate 58 [facility] Comment:Chronic Kidney Disea se: Estimated GFR < 60 mL/min/1.73a2Ijnlfl Kidney Disease: Estimated GFR < 15 mL/min/1.73m2 Glucose Fasting 169(H) 60 - 99 mg/dL [facility] Comment:A fasting glucose of 126 mg/dl or greater on more than oneoccasion is considered diagnostic of diabetes. Calcium 9.9 8.4 - 10.2 mg/dL [facility] Blood Venous blood specimen / Unknown 09/24/2024 1:40 PM EST 09/24/2024 4:21 PM EST us Rolanda Thakur MD LAB BLOOD ORDERABLES Final Result Performing Organization Address [facility]/ZIP Co de Phone Number [facility] [address] [place] [phone] * (ABNORMAL) CBC auto differential (09/24/2024 1:40 PM EST) White Blood Count 7.0 4.8 - 10.8 X10*3/uL [facility] Red Blood Count 4.23 4.20 - 5.50 X10*6/uL [facility] Hemoglobin 12.6 12.0 - 16.0 g/dl [facility] Hematocrit 37.0 37.0 - 47.0 % [facility] Mean Corpuscular Volume 87.5 80.0 - 98.0 fL [facility] Mean Corpuscular Hemoglobin 29.8 27.0 - 33.0 pg [facility] Mean Corpuscular HGB Conc 34.1 31.0 - 35.0 g/dl [facility] Red Cell Distribution Width 12.8 11.0 - 16.0 % [facility] Platelet Count 251 160 - 400 X10*3/uL [facility] Mean Platelet Volume 9.5 9.4 - 12.3 fL [facility] Neutrophils Percent Auto 59.8 45 - 73 % [facility] Imm Gran Pct Auto 0.3 0.0 - 0.4 % [facility] Lymphocytes Percent Auto 26.1 20 - 40 % [facility] Monocytes Percent Auto 8.6 2 - 11 % [facility] Eosinophils Percent Auto 4.3(H) 0 - 4 % [facility] Basophils Percent Auto 0.9 0 - 2 % [facility] NRBC Pct Auto 0.0 0.0 - 0.2 /100WBC [facility] Neutrophils Absolute Auto 4.2 2.0 - 8.3 x10*3/uL [facility] Imm Gran Abs Auto 0.02 0.00 - 0.03 X10*3/uL [facility] Lymphocytes Absolute Auto 1.8 1.2 - 4.9 X10*3/uL [facility] Monocytes Absolute Auto 0.6 0.1 - 1.2 X10*3/uL [facility] Eosinophils Absolute Auto 0.3 0.0 - 0.4 X10*3/uL [facility] Basophils Absolute Auto 0.1 0.0 - 0.2 X10*3/uL [facility] NRBC Abs Auto 0.000 0.0 - 0.012 X10*3/uL [facility] Blood Venous blood specimen / Unknown 09/24/2024 1:40 PM EST 09/24/2024 4:21 PM EST Rolanda Thakur MD LAB BLOOD ORDERABLES Final Result [facility] [address] [place] [address] [phone] documented in this encounter Visit Diagnoses Diagnosis Acquired hypothyroidism- Primary Unspecified hypothyroidism Benign essential hypertension Essential hypertension, benign documented in this encounter Additional Health Concerns Assessment Noted Time PHQ-9 Depression Total Score: 2 05/13/20 24 9:24 AM EDT documented as of this encounter Care Teams Psychiatric Aides Teacher Relationship Specialty Start Date End Date Rolanda Thakur MD [address] [place] [phone] PCP - General Internal Medicine 09/19/22 documented as of this encounter
--- OUTSIDE RECORDS SUMMARY | 2024-11-27 13:56 | XMS_ITS | Encounter Summary ---
Author Organization [employer] Address [address] [place] [address] [place] [address] Care Team Providers Care Mechanical Reliability Engineer Name Role Phone Rolanda Thakur MD Primary Care Provider [phone]- [phone] Encounter Details Date Type Department Care Team (Late st Contact Info) Description 12/07/2023 Telephone [facility] MEDICINE [address] [place] [address] [phone] Rolanda Thakur MD [address] [place] [address] Social History Tobacco Use Types Packs/Day Years [...] on filedocumented in this encounter Care Teams Mechanical Reliability Engineer Relationship Specialty Start Date End Date Rolanda Thakur MD [address] [place] [address] PCP - General Internal Medicine 09/19/22 documented as of this encounter
--- OUTSIDE RECORDS SUMMARY | 2024-11-27 13:56 | XMS_ITS | Encounter Summary ---
Author Organization [employer] Address [address] [place] [address] [facility] [address] Care Team Providers Care Dye House Helper Name Role Phone Rolanda Thakur MD Primary Care Provider +[phone] Reason for Referral * Consultation (Routine) - Closed Specialty Diagnoses / Procedures Referred By Freddy meadows Referred To Contact Neurology Diagnoses Other polyneuropathy Rolanda Thakur MD [address] [place] [address] Phone: tel: fax: [facility] Neurology [address] [place], [place] Phone: tel: fax: Referral ID Status Reason Start Date Expiration Date V isits Requested Visits Authorized [id number] Closed Specialty Services Required 11/22/2023 11/21/2024 1 1 * Consultation (Routine) - Closed Specialty Diagnoses / Procedures Referred By Freddy meadows Referred To Contact Physiatry Diagnoses Other polyneuropathy Rolanda Thakur MD [address] [place] [address] Phone: tel: fax: Referral ID Status Reason Start Date Expiration Date V isits Requested Visits Authorized [id number] Closed Specialty Services Required 11/17/2023 11/16/2024 1 1 Encounter Details Date Type Department Care Team (Late st Contact Info) Description 11/16/2023 Orders Only [facility] CHC MED & PEDS [address] [place] [address] Rolanda Thakur MD [address] [place] [address] Other polyneuropathy (Primary Dx) Social History Tobacco [...] Primary documented in this encounter Care Teams Dye House Helper Relationship Specialty Start Date End Date Rolanda Thakur MD [address] [place] [address] PCP - General Internal Medicine 09/19/22 documented as of this encounter
--- OUTSIDE RECORDS SUMMARY | 2024-11-27 13:57 | XMS_ITS | Encounter Summary ---
Author Organization [employer] Address 75 [facility] 7 [place] [address] Care Team Providers Care Metal Can Inspector Name Role Phone Rolanda Thakur MD Primary Care Provider +1- [phone] Reason for Visit * Reason Onset Date Comments Med Refill 08/19/2024 Encounter Details Date Type Department Care Team (Late st Contact Info) Description 08/19/2024 Refill [facility] [address] [place] [address] Wyatt Huizar MD [address] [place] [address] Neck pain on left side Social History [...] as of this encounter Care Teams Metal Can Inspector Relationship Specialty Start Date End Date Rolanda Thakur MD [address] [place] [address] PCP - General Internal Medicine 09/19/22 documented as of this encounter
--- OUTSIDE RECORDS SUMMARY | 2024-11-27 13:57 | XMS_ITS | Encounter Summary ---
Author Organization [employer] Address [address] [place] [address] Care Team Providers Care Tiedown Operator Name Role Phone Rolanda Thakur MD Primary Care Provider +1- [phone] Reason for Visit * Reason Comments Med Refill Encounter Details Date Type Department Care Team (Late st Contact Info) Description 08/27/2024 Refill [facility] [address] [place] [address] Rolanda Thakur MD 505 [place], [place] [phone] Type 2 diabetes mellitus without complication, without long-term current use of insulin ([facility]) Social History Tobacco Use Types Packs/Day [...] of insulin ([facility]) documented in this encounter Additional Health Concerns Assessment Noted Time PHQ-9 Depression Total Score: 2 05/13/20 24 9:24 AM EDT documented as of this encounter Care Teams Tiedown Operator Relationship Specialty Start Date End Date Rolanda Thakur MD 505 [place] [address] PCP - General Internal Medicine 09/19/22 documented as of this encounter
--- OUTSIDE RECORDS SUMMARY | 2024-11-27 13:57 | XMS_ITS | Encounter Summary ---
Author Organization [employer] Address [address] [place] [address] Care Team Providers Care Director Acute Name Role Phone Rolanda Thakur MD Primary Care Provider +1- [phone] Encounter Details Date Type Department Care Team ([facility] st Contact Info) Description 10/27/2023 Orders Only [facility] CHC MED & PEDS 505 [place] [address] Bhavesh Yang, RN [address] [place], [place] Social History Tobacco Use Types Packs/Day [...] filedocumented in this encounter Care Teams Director Acute Relationship Specialty Start Date End Date Rolanda Thakur MD 505 [place] [address] PCP - General Internal Medicine 09/19/22 documented as of this encounter
--- OUTSIDE RECORDS SUMMARY | 2024-11-27 13:57 | XMS_ITS | Encounter Summary ---
Author Organization [employer] Address [address] [place] [address] [place] [address] Care Team Providers Care Grinder And Plater Name Role Phone Rolanda Thakur MD Primary Care Provider +1- [phone] Encounter Details Date Type Department Care Team (Late st Contact Info) Description 10/27/2023 Telephone [facility] [address] [place] [phone] Rolanda Thakur MD [address] [place] [address] Social History Tobacco Use Types Packs/Day Years [...] on filedocumented in this encounter Care Teams Grinder And Plater Relationship Specialty Start Date End Date Rolanda Thakur MD [address] [place] [address] PCP - General Internal Medicine 09/19/22 documented as of this encounter
--- OUTSIDE RECORDS SUMMARY | 2024-11-27 13:57 | XMS_ITS | Encounter Summary ---
Author Organization [employer] Address [address] [place] [address] Care Team Providers Care Parts Clerk Name Role Phone Rolanda Thakur MD Primary Care Provider +1- [phone] Reason for Referral * Consultation (Routine) - Closed Specialty Diagnoses / Procedures Referred By Contac t Referred To Contact Endocrinology Diagnoses Type 2 diabetes mellitus without complication, without long-term current use of insulin (CMS/HCC) Rolanda Thakur MD [address] [place] [address] Phone: tel: fax: [facility] [address] [place] [phone] Phone: tel: fax: Referral ID Status Reason Start Date Expiration Date V isits Requested Visits Authorized [id number] Closed Specialty Services Required 08/26/2024 08/26/2025 1 1 Encounter Details Date Type Department Care Team (Late st Contact Info) Description 08/26/2024 Orders Only [facility] CHC MED & PEDS [address] [place] [address] Rolanda Thakur MD [address] [place] [address] Type 2 diabetes mellitus without complication, without [...] complication, without long-term current use of insulin ([facility]) Expected: 08/26/2024 (Approximate), Expires: 08/26/2025 documented as of this encounter Visit Diagnoses Diagnosis Type 2 diabetes mellitus without complication, without long-term current use of insulin (CMS/[facility])- Primary documented in this encounter Additional Health Concerns Assessment Noted Time PHQ-9 Depression Total Score: 2 05/13/20 24 9:24 AM EDT documented as of this encounter Care Teams Parts Clerk Relationship Specialty Start Date End Date Rolanda Thakur MD [address] [place] [address] PCP - General Internal Medicine 09/19/22 documented as of this encounter
--- OUTSIDE RECORDS SUMMARY | 2024-11-27 13:57 | XMS_ITS | Encounter Summary ---
Author Organization [employer] Address [address] [place] [address] [place] [address] Care Team Providers Care Capsule Filler Name Role Phone Rolanda Thakur MD Primary Care Provider +1- [phone] Reason for Visit * Reason Onset Date Comments Referral 11/16/2023 Encounter Details Date Type Department Care Team ([facility] st Contact Info) Description 11/16/2023 Telephone [facility] CHC MED & PEDS 505 [place] [address] Rolanda Thakur MD 505 [place] [address] Referral Social History Tobacco Use Types Packs/Day [...] MyChart encounter. Any questions, contact pt at [phone] documented in this encounter Plan of Treatment Not on file documented as of this encounter Visit Diagnoses Not on filedocumented in this encounter Care Teams Capsule Filler Relationship Specialty Start Date End Date Rolanda Thakur MD [address] [place] [address] PCP - General Internal Medicine 09/19/22 documented as of this encounter
== END 2024-11-26 11:49 | disposition home or self-care (01) ==
LOC: HO.HHCLNP 11:48
PROVIDERS: Visit Provider Family Medicine
DX: Z87.440 Personal history of urinary (tract) infections (principal)
CPT/HCPCS: 81003; 87086

== ENCOUNTER 2024-11-27 09:45 | Outpatient (REF) | payer MEDICARE, SELFPAY ==
--- OUTSIDE RECORDS SUMMARY | 2024-11-27 10:40 | XMS_ITS | Clinical Summary ---
Author Organization [facility] Address [address] [place] [address] Phone Care Team Providers Care Ibm Mainframe Developer Name Role Phone Rolanda Thakur MD Primary Care Provider +1 -[phone] Allergies Active Allergy Reactions Criticality Noted Date [...] aware that this will likely be an [id number]-[id number] cost and feels as though she can afford it. I will review results and determine need for future follow-up. In the meantime she would like to hold off on statin therapy which I think is totally reasonable. Orders: ECG 12 lead Pure hypercholesterolemia 07/08/2024 Assessment & Plan (07/08/2024 4:42 PM EST): See plan above. Encounters Date Type Department Care Team Description 09/12/2024 Telephone [facility] - [address] [place] [phone] Nikki Rawls MD Hypertension 09/07/2024 9:51 AM EST - 09/07/2024 11:59 PM [facility] Hospital Encounter [facility] Xray [address] [place] [address] Pain Discharge Disposition: Home or Self Care 09/07/2024 9:45 AM EST - 09/07/2024 11:59 PM [facility] Hospital Encounter [facility] Xray [address] [place] [address] Pain Discharge Disposition: Home or Self Care [...] AM EDT [facility] at [address] [phone] 02/13/2025 10:50 AM EDT Office Visit [facility] [address] [phone] Nikki Rawls MD [address] [place] [address] Health Maintenance Due Date Last Done Comments [...] age to complete this topic Meningococcal B Vaccine Aged Out No l onger eligible based on patient's age to complete [...] VIEWS Routine 09/07/2024 10:06 AM EST Pain [facility] SCREENING DIGITAL Routine 10/23/2023 9:44 AM EST Encounter for screening mammogram for malignant neoplasm of breast [facility] DEXA AXIAL SKELETON Routine 04/12/2023 7:46 [...] Signed Date: 09/09/2024 07:17 ET Workstation ID: [id number] Transcribed By: Self Edit Transcribed Date: 09/09/2024 [...] Signed Date: 09/09/2024 07:17 ET Workstation ID: [id number] Transcribed By: Self Edit Transcribed Date: 09/09/2024 07:11 ET us Jamel Dennys Ofelia JESUS IMG XR PROCEDURES Final Result * XR [...] Signed Date: 09/09/2024 07:17 ET Workstation ID: [id number] Transcribed By: Self Edit Transcribed Date: 09/09/2024 [...] Signed Date: 09/09/2024 07:17 ET Workstation ID: [id number] Transcribed By: Self Edit Transcribed Date: 09/09/2024 07:11 ET us Jamel Gilbert DC IMG XR PROCEDURES Final Result * [facility] SCREENING DIGITAL (10/23/2023 9:44 AM EST) Anatomical Region Laterality Modality Mammography 10/19/2023 2:21 PM EST Narrative 10/23/2023 9:44 AM EST [facility] Diagnostic Imaging Department [address] [place] [address] [id number] Patient: ??ANGELY PINEDA ?/Age/Sex: 1950 - Unit#: ??[id number] ? Location/Status: ??SPDIMAM/REG CLI ? Mnemonic/Ordering Site: ??DIGSC/SPMAIN Ordering Physician: ??MAREN UREÑA MD [facility] Screening Digital - 10/21/23 - 08 Report Status:Signed EXAM: [facility] Screening Digital EXAM DATE AND TIME: 10/21/2023 8:11 AM HISTORY: ??Screening. COMPARISON: ??10/12/22, 06/08/21, 03/04/20 TECHNIQUE: Bilateral digital breast tomosynthesis was performed in the CC and MLO projections. Computer aided detection with Tracking[employer] 3D 3.1 was employed. TISSUE DENSITY: a. [...] Note Maria Guadalupe Gotti MD - 04/08/2024 [facility] Diagnostic Imaging Department [address] [place] [id number] Patient: ADEDSONANGELY YARA /Age/Sex: 1950 - 73 - F Unit#: [id number] Location/Status: [facility] CLI Mnemonic/Ordering Site: [facility] Ordering Physician: MAREN UREÑA MD [facility] Screening Digital - 10/21/23 - 0810 Report Status:Signed EXAM: [facility] Screening Digital EXAM DATE AND TIME: 10/21/2023 8:11 AM HISTORY: Screening. COMPARISON: 10/12/22, 06/08/21, 03/04/20 TECHNIQUE: Bilateral digital breast tomosynthesis was performed in the CCand MLO projections. Computer aided detection with Virtual [employer] 3D 3.1was employed. TISSUE DENSITY: a. The [...] PM EDT Narrative 04/12/2023 7:46 AM EDT [facility] Diagnostic Imaging Department [address] [place] [address] Patient: ??ANGELY PINEDA ?/Age/Sex: 1950 - 72 - F Unit#: ??[id number] ? Location/Status: ??SPDIMAM/REG CLI ? Mnemonic/Ordering Site: [...] probability of hip fracture of 2.2%. Code 87416 Dictating Physician: ??GWENDOLYN BAHENA MD Electronically Signed by: ??GWENDOLYN BAHENA MD Dic Date/Time: ??04/12/23 0745 Sign date/Time: ??04/12/23 0746 Procedure Note Gwendolyn Bahena MD - 09/26/2023 [facility] Diagnostic Imaging Department [address] [place] [address] Patient: ANGELY PINEDA YARA Pruitt./Age/Sex: 1950 - 72 - F Unit#: [id number] Location/Status: [facility] Ordering Physician: MAREN UREÑA MD [facility] Dexa Axial Skeleton - 04/11/231532 Report [...] density of the femurs bilaterally is 0.874 gm/dp2hwzsj is 87% of that of young normals [...] probability of hip fracture of 2.2%. Code 18323 Dictating Physician: GWENDOLYN BAHENA MD Electronically Signed by: GWENDOLYN BAHENA MD Dic Date/Time: 04/12/2345 Sign date/Time: 04/12/2346 Maren Ureña MD IMG BI PROCEDURES Final Result from Last 3 Months or Most Recently Relevant to Health Maintenance Insurance [employer] MEDICARE Care Teams Ibm Mainframe Developer Relationship Specialty Start Date End Date Rolanda Thakur MD [address] [place], [place] PCP - General 11/03/23
--- OUTSIDE RECORDS SUMMARY | 2024-11-27 10:40 | XMS_ITS | Encounter Summary ---
Author Organization [employer] Address [address] [place] [address] [place] [address] Care Team Providers Care Lathmaker Name Role Phone Rolanda Thakur MD Primary Care Provider +1- [phone] Reason for Visit * Reason Onset Date Comments CT scan order 07/03/2024 Encounter Details Date Type Department Care Team ([facility] Contact Info) Description 07/03/2024 Telephone [facility] MED [facility] PEDS [address] [place] [address] Rolanda Thakur MD [address] [place] [address] CT scan order Social History Tobacco Use [...] documented as of this encounter Care Teams Lathmaker Relationship Specialty Start Date End Date Rolanda Thakur MD [address] [place] [address] PCP - General Internal Medicine 09/19/22 documented as of this encounter
--- OUTSIDE RECORDS SUMMARY | 2024-11-27 10:40 | XMS_ITS | Encounter Summary ---
Author Organization [employer] Address [address] [facility] 7t [place] [address] Care Team Providers Care Petroleum Engineer Name Role Phone Rolanda Thakur MD Primary Care Provider +1 [phone] Encounter Details Date Type Department Care Team (Latest Contact Info) Description 11/26/2024 Travel Social History Tobacco Use Types Packs/Day [...] documented as of this encounter Care Teams Petroleum Engineer Relationship Specialty Start Date End Date Rolanda Thakur MD [address] [place] [address] PCP - General Internal Medicine 09/19/22 documented as of this encounter
--- OUTSIDE RECORDS SUMMARY | 2024-11-27 10:40 | XMS_ITS | Encounter Summary ---
Author Organization [employer] Address [address] [place] [address] Care Team Providers Care Heavy Equipment Plumbing Supervisor Name Role Phone Rolanda Thakur MD Primary Care Provider [phone]- [phone] Reason for Referral * Consultation (Routine) - Closed Specialty Diagnoses / Procedures Referred By Freddy t Referred To Contact Chiropractic Medicine Diagnoses Chronic left-sided low back pain with left-sided sciatica Rolanda Thakur MD [address] [place] [address] Phone: tel: fax: [facility] fax: Referral ID Status Reason Start Date Expiration Date V isits Requested Visits Authorized [id number] Closed Specialty Services Required 08/08/2024 08/08/2025 1 1 * Consultation (Routine) - Closed Specialty Diagnoses / Procedures Referred By Freddy t Referred To Contact Physical Therapy Diagnoses Chronic left-sided low back pain with left-sided sciatica Rolanda Thakur MD [address] [place] [address] Phone: tel: fax: [facility] Physical Therapy [address] [place] [address] Phone: tel: fax: Referral ID Status Reason Start Date Expiration Date V isits Requested Visits Authorized [id number] Closed Specialty Services Required 08/05/2024 08/05/2025 1 1 * Consultation (Routine) - Closed Specialty Diagnoses / Procedures Referred By Freddy meadows Referred To Contact Chiropractic Medicine Diagnoses Chronic left-sided low back pain with left-sided sciatica Rolanda Thakur MD [address] [place] [address] Phone: tel: fax: Referral ID Status Reason Start Date Expiration Date V isits Requested Visits Authorized [id number] Closed Specialty Services Required 08/02/2024 08/02/2025 1 1 Encounter Details Date Type Department Care Team ([facility] Contact Info) Description 08/02/2024 Orders Only [facility] MED & PEDS [address] [place] [address] Rolanda Thakur MD [address] [place] [address] Chronic left-sided low back pain with left-sided [...] Adult Primary Care ?[address] ? [place] [address] ?XRay Report ? Signed ? Patient: Cook,Angely ?MR#: [id number] ? : 1950 ?Acct:[id number] ? Age/Sex: 74 / F ?ADM Date: 08/12/24 ? Loc: HO.HMGCX ? Attending Dr: Wyatt Golden MD ? Ordering Physician: Wyatt Golden MD ?? Date of Service: 08/12/24 ?? Procedure(s): XR cervical spine 5V ?? Accession Number(s): [id number] ? cc: Rolanda Thakur MD; Wyatt Golden [...] DD/ 0950 ? TD/TT: 08/12/24 1000 ? Instruments Sales Representative: ? Procedure Note Darrell Fonseca - 09/02/2024 [facility] Adult Primary Care [address] [place], [place] [address] XRay Report Signed Patient: Zion PinedaJean-Paul#: [id number] : 1Acct:[id number] Age/Sex: 74 / FADM Date: 08/12/24 Loc: HO.HMGCX Attending Dr: Wyatt Golden MD Ordering Physician: Wyatt Golden MD Date of Service: 08/12/24 Procedure(s): XR cervical spine 5V Accession Number(s): [id number] cc: Rolanda Thakur MD; Wyatt Golden MD [...] 09/02/24 1121 DD/ 0950 TD/TT: 08/12/24 1000 Instruments Sales Representative: us Wyatt Mcdonald MD IMG XR PROCEDURES Iftikhar mecca Result - Final documented in this encounter Visit Diagnoses Diagnosis Chronic left-sided low back pain with left-sided sciatica- Primary documented in this encounter Additional Health Concerns Assessment Noted Time PHQ-9 Depression Total Score: 2 05/13/20 24 9:24 AM EDT documented as of this encounter Care Teams Heavy Equipment Plumbing Supervisor Relationship Specialty Start Date End Date Rolanda Thakur MD [address] [place] [address] PCP - General Internal Medicine 09/19/22 documented as of this encounter
--- OUTSIDE RECORDS SUMMARY | 2024-11-27 10:40 | XMS_ITS | Encounter Summary ---
Author Organization [employer] Address [address] [facility] 7 [place] [address] Care Team Providers Care Fit Model Name Role Phone Rolanda Thakur MD Primary Care Provider [phone]- [phone] Reason for Visit * Reason Onset Date Comments Nurse Triage 08/05/2024 Encounter Details Date Type Department Care Team ([facility] st Contact Info) Description 08/05/2024 Telephone [facility] MEDICINE [address] [place] [address] Rolanda Thakur MD [address] [place] [address] Nurse Triage Social History Tobacco Use Types [...] 1145am. Pt is advised to come to [facility] today which is open till 8pm and also open 830am -800pm tomorrow. Pt agrees with this disposition. Pt will [facility] to come to [facility] today[facility], if unable will come tomorrow. [...] documented as of this encounter Care Teams Fit Model Relationship Specialty Start Date End Date Rolanda Thakur MD [address] [place] [address] PCP - General Internal Medicine 09/19/22 documented as of this encounter
--- OUTSIDE RECORDS SUMMARY | 2024-11-27 10:40 | XMS_ITS | Encounter Summary ---
Author Organization [employer] Address [address] [place] [address] [place] [address] Care Team Providers Care Dry Cleaning Checker Name Role Phone Rolanda Thakur MD Primary Care Provider [phone]- [phone] Reason for Referral * Imaging (Routine) - Closed Specialty Diagnoses / Procedures Referred By Contac t Referred To Contact Radiology Diagnoses Hyponatremia Decreased GFR Procedures US RENAL BI oRlanda Thakur MD [address] [place] [address] Phone: tel: fax: [address] Phone: tel: fax: Referral ID Status Reason Start Date Expiration Date Visits Re quested Visits Authorized [id number] Closed 07/18/2024 07/18/2025 1 0 Encounter Details Date Type Department Care Team (Late st Contact Info) Description 07/09/2024 Orders Only [facility] MED & PEDS [address] [place], [place] [phone] Rolanda Thakur MD [address] [place] [address] Hyponatremia (Primary Dx); Decreased GFR Social History [...] documented as of this encounter Care Teams Dry Cleaning Checker Relationship Specialty Start Date End Date Rolanda Thakur MD [address] [place] [address] PCP - General Internal Medicine 09/19/22 documented as of this encounter
--- OUTSIDE RECORDS SUMMARY | 2024-11-27 10:40 | XMS_ITS | Encounter Summary ---
Author Organization [employer] Address [address] [place] [address] [place] [address] Care Team Providers Care Associate Embalmer/Funeral Director Name Role Phone Rolanda Thakur MD Primary Care Provider +1- [phone] Reason for Visit * Reason Onset Date Comments Referral 07/31/2024 Encounter Details Date Type Department Care Team ([facility] Contact Info) Description 07/31/2024 Telephone [facility] MED & PEDS [address] [place] [address] Rolanda Thakur MD [address] [place] [address] Referral Social History Tobacco Use Types Packs/Day [...] Hirsch. [facility] documented in this encounter Plan of Treatment Not on file documented as of this encounter Visit Diagnoses Not on filedocumented in this encounter Additional Health Concerns Assessment Noted Time PHQ-9 Depression Total Score: 2 05/13/20 24 9:24 AM EDT documented as of this encounter Care Teams Associate Embalmer/Funeral Director Relationship Specialty Start Date End Date Rolanda Thakur MD [address] [place] [address] PCP - General Internal Medicine 09/19/22 documented as of this encounter
--- OUTSIDE RECORDS SUMMARY | 2024-11-27 10:40 | XMS_ITS | Encounter Summary ---
Author Organization [employer] Address [address] [facility] 7 [place] [address] Care Team Providers Care Family Resource Management Specialist Name Role Phone Rolanda Thakur MD Primary Care Provider +1- [phone] Reason for Visit * Reason Onset Date Comments FYI 11/19/2024 Encounter Details Date Type Department Care Team (Late st Contact Info) Description 11/19/2024 Telephone [facility] MEDICINE [address] [place] [address] Rolanda Thakur MD [address] [place] [address] FYI Social History Tobacco Use Types Packs/Day [...] documented as of this encounter Care Teams Family Resource Management Specialist Relationship Specialty Start Date End Date Rolanda Thakur MD [address] [place] [address] PCP - General Internal Medicine 09/19/22 documented as of this encounter
--- OUTSIDE RECORDS SUMMARY | 2024-11-27 10:40 | XMS_ITS | Encounter Summary ---
Author Organization [employer] Address [address] [place] [address] 7 [place] [address] Care Team Providers Care Ripening Room Attendant Name Role Phone Rolanda Thakur MD Primary Care Provider +1- [phone] Encounter Details Date Type Department Care Team (Late st Contact Info) Description 06/21/2023 Abstract [facility] MEDICINE [address] [place] [address] Sherrie Caballero Social History Tobacco Use Types [...] on filedocumented in this encounter Care Teams Ripening Room Attendant Relationship Specialty Start Date End Date Rolanda Thakur MD [address] [place] [address] PCP - General Internal Medicine 09/19/22 documented as of this encounter
--- OUTSIDE RECORDS SUMMARY | 2024-11-27 10:40 | XMS_ITS | Encounter Summary ---
Author Organization [employer] Address [address] [place] [address] 7 [place] [address] Care Team Providers Care Mri Specialist Name Role Phone Rolanda Thakur MD Primary Care Provider +1- [phone] Reason for Visit * Reason Comments UTI Encounter Details Date Type Department Care Team ([facility] st Contact Info) Description 11/26/2024 6:40 PM EDT Office Visit [facility] [address] [place] [address] Ilsa Arana MD [address] [place] [phone] Recent urinary tract infection (Primary Dx) Social History Tobacco Use Types [...] Pressure - - Pulse - - Temperature 36.6 ??C (97.9 ??F) 11/26/2024 6:34 PM ED T Respiratory Rate - - Oxygen Saturation - - Inhaled Oxygen Concentration - - Weight - - Height - - Body Mass Index - - documented in this encounter Progress Notes * Jesus Manuel York - 11/26/2024 6:40 PM EDT Subjective Angely Pineda is a 74 y.o. female with past medical history of hypertension, diabetic neuropathy, type 2 diabetes, hypothyroidism and anxiety here for evaluation of previous UTI. UTI history: recentUTI with mixed hailey 3 days ago, treated with no records of prescription . Antibiotic use within past three months: Took last amoxicillin dose 11/19/24. Denies any UTI symptoms today. Refused vital signs. Review of Systems Constitutional: Negative for fever and unexpected weight change. Respiratory: Negative for shortness of breath. Cardiovascular: Negative for chest pain. Gastrointestinal: Negative for abdominal pain. Genitourinary: Negative for difficulty urinating, dysuria and urgency. Objective Visit Vitals Temp 97.9 ??F (36.6 ??C) (Oral) LMP (LMP Unknown) Smoking Status Never Physical Exam Constitutional: Appearance: Normal appearance. Cardiovascular: Rate and Rhythm: Normal rate and regular rhythm. Heart sounds: Normal heart sounds. Pulmonary: Effort: Pulmonary effort is normal. Breath sounds: Normal breath sounds. Neurological: General: No focal deficit present. Mental Status: She is alert. Psychiatric: Behavior: Behavior normal. Lab review Orders Only on 11/20/2024 Component Date Value Sodium 11/23/2024 135 Potassium 11/23/2024 4.4 Chloride 11/23/2024 103 Carbon Dioxide 11/23/2024 24 Anion Gap 11/23/2024 12 Urea Nitrogen (BUN) 11/23/2024 21 (H) Creatinine, Serum 11/23/2024 0.89 Estimated Glomerular Wilberto* 11/23/2024 >60 Glucose 11/23/2024 161 (H) Calcium 11/23/2024 10.2 White Blood Count 11/23/2024 8.5 Red Blood Count 11/23/2024 4.27 Hemoglobin 11/23/2024 12.8 Hematocrit 11/23/2024 37.0 Mean Corpuscular Volume 11/23/2024 86.7 Mean Corpuscular Hemoglo* 11/23/2024 30.0 Mean Corpuscular HGB Conc 11/23/2024 34.6 Red Cell Distribution Wi* 11/23/2024 13.1 Platelet Count 11/23/2024 269 Mean Platelet Volume 11/23/2024 9.1 (L) Neutrophils Percent Auto 11/23/2024 64.4 Imm Gran Pct Auto 11/23/2024 0.4 Lymphocytes Percent Auto 11/23/2024 23.8 Monocytes Percent Auto 11/23/2024 5.9 Eosinophils Percent Auto 11/23/2024 4.7 (H) Basophils Percent Auto 11/23/2024 0.8 NRBC Pct Auto 11/23/2024 0.0 Neutrophils Absolute Auto 11/23/2024 5.4 Imm Gran Abs Auto 11/23/2024 0.03 Lymphocytes Absolute Au* 11/23/2024 2.0 Monocytes Absolute Auto 11/23/2024 0.5 Eosinophils Absolute Auto 11/23/2024 0.4 Basophils Absolute Auto 11/23/2024 0.1 NRBC Abs Auto 11/23/2024 0.000 Problem List Items Addressed This Visit Recent urinary tract infection - Primary Relevant Orders Culture, Urine, Routine Urinalysis Complete Hx of recent UTI. No clinical evidence of acute abdomen or pyelonephritis. Asymptomatic. -Empiric antibiotics started, Urinalysis and urine culture sent to the lab. -ER precautions discussed. -Seek medical attention for worsening symptoms. I, Jesus Manuel York, am serving as a scribe to document services personally performed by Dr. Bernstein, based on the patient's response to questions by provider and providers statements to me. documented in this encounter Plan of Treatment Scheduled Orders Name Type Priority Associated Diagnoses Orde r Schedule Culture, Urine, Routine Microbiology Routine Recent urinary tract infection Expected: 11/26/2024 (Approximate), Expires: 11/26/2025 Urinalysis Complete Lab Routine Recent urinary tract infection Expected: 11/26/2024, Expires: 11/26/2025 documented as of this encounter Visit Diagnoses Diagnosis Recent urinary tract infection- Primary documented in this encounter Additional Health Concerns Assessment Noted Time PHQ-9 Depression Total Score: 2 05/13/20 24 9:24 AM EDT documented as of this encounter Care Teams Mri Specialist Relationship Specialty Start Date End Date Rolanda Thakur MD [address] [place] [address] PCP - General Internal Medicine 09/19/22 documented as of this encounter
--- OUTSIDE RECORDS SUMMARY | 2024-11-27 10:40 | XMS_ITS | Encounter Summary ---
Author Organization [employer] Address 75 [facility] 7 [place] [address] Care Team Providers Care Knit Tubing Dyer Name Role Phone Rolanda Thakur MD Primary Care Provider +1- [phone] Reason for Visit * Reason Onset Date Comments Nurse Triage 11/26/2024 Encounter Details Date Type Department Care Team (Late st Contact Info) Description 11/26/2024 Telephone [facility] [address] [place] [address] Rolanda Thakur MD 505 [place] [address] Nurse Triage Social History Tobacco Use Types [...] encounter Miscellaneous Notes * Telephone Encounter - Peggy Burgess RN - 11/26/2024 5:04 PM EDT See message below that was sent to Walk In Nurses. Message noted. Called pt. She states she is having low back pain and hip pain. Pt had a urine done on 11/23/24 but no one called her to let her know that the sample was contaminated and she is still having same sx. When she had Positive UTI a couple weeks ago after going to [place] [facility] on [facility]. No fever. No blood in urine, no vomiting. Pt is worried that she definitely has a UTI if not a Kidney infection and wants to redo a clean catch urine and also kidneys lab tests and possible US of kidneys to make sure. Pt. Previous BUN was elevated on recent blood work as well. Results of labs and urine are in pt. Chart. *Pt. 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 She is adamant about me letting you know prior to her coming into walk in this evening that she does not want her BP checked at all * Pt. Will come to [facility] walk in around 615pm due to schedule is full until that time now. Will forward this message to MA's and Nurses that are working extended this evening as an FYI Protocol Used: Flank Pain (Adult) Protocol-Based Disposition: See in Office or Video Visit Today Video visit offer not recorded Positive Triage Questions: * Moderate pain (e.g., interferes with normal activities or awakens from sleep) * Patient wants to be seen * All higher-acuity triage questions were negative Care Advice Discussed: * Reassurance and Education - Flank Pain From Minor Injury * Use a Cold Pack for Pain * Use Heat After 48 Hours for Pain * Continue Activity * Pain Medicines * Telephone Encounter - Yael Shaffer RN - 11/26/2024 4:08 PM EDT Called pt. She states she is having low back pain and hip pain. Pt had a urine done on 11/23/24 but no one called her to let her know that the sample was contaminated and she is still having same sx. When she had Positive UTI a couple weeks ago after going to [place] [facility] [place] on [address] No fever. No blood in urine, no vomiting. Pt is worried that she definitely has a UTI if not a Kidney infection and wants to redo a clean catch urine and also kidneys lab tests and possible US of kidneys to make sure. Pt. Previous BUN was elevated on recent blood work as well. Results of labs and urine are in pt. Chart. *Pt. 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 She is adamant about me letting you know prior to her coming into walk in this evening that she does not want her BP checked at all * Pt. Will come to [facility] walk in around 615pm due to schedule is full until that time now. Will forward this message to MA's and Nurses that are working extended this evening as an FYI Protocol Used: Flank Pain (Adult) Protocol-Based Disposition: See in Office or Video Visit Today Video visit offer not recorded Positive Triage Questions: * Moderate pain (e.g., interferes with normal activities or awakens from sleep) * Patient wants to be seen * All higher-acuity triage questions were negative Care Advice Discussed: * Reassurance and Education - Flank Pain From Minor Injury * Use a Cold Pack for Pain * Use Heat After 48 Hours for Pain * Continue Activity * Pain Medicines * Telephone Encounter - Be Ventura - 11/26/2024 3:41 PM EDT Symptoms: Back Pain - Not From Injury, Urine Symptoms Outcome: Schedule a same-day appointment or talk to a nurse or provider today Reason: Caller denied all higher acuity questions The caller accepted this outcome. Contact pt at [phone] documented in this encounter Plan of Treatment Not on file documented as of this encounter Visit Diagnoses Not on filedocumented in this encounter Additional Health Concerns Assessment Noted Time PHQ-9 Depression Total Score: 2 05/13/20 24 9:24 AM EDT documented as of this encounter Care Teams Knit Tubing Dyer Relationship Specialty Start Date End Date Rolanda Thakur MD [address] [place] [id number] PCP - General Internal Medicine 09/19/22 documented as of this encounter
--- OUTSIDE RECORDS SUMMARY | 2024-11-27 10:40 | XMS_ITS | Encounter Summary ---
Author Organization [employer] Address [address] [place] [address] [place] [address] Care Team Providers Care Pc Maintenance Technician Name Role Phone Rolanda Thakur MD Primary Care Provider [phone]- [phone] Reason for Visit * Reason Onset Date Comments Referral 05/18/2023 Encounter Details Date Type Department Care Team ([facility] st Contact Info) Description 05/18/2023 Telephone [facility] MED & PEDS [address] [place] [address] Rolanda Thakur MD [address] [place] [address] Referral Social History Tobacco Use Types Packs/Day [...] used to see Dr. Chad Dempsey from [facility] butnow the office doesn't take her [...] advise. Also sent you her response from [employer]. Thanks. * Telephone Encounter - Annabella Peña [...] to Specialty: (EMG) Dr nolasco Date&Time: N/a Mobile Engineer: n/a Please call pt to clarify documented in this encounter Plan of Treatment Not on file documented as of this encounter Visit Diagnoses Not on filedocumented in this encounter Care Teams Pc Maintenance Technician Relationship Specialty Start Date End Date Rolanda Thakur MD [address] [place] [id number] PCP - General Internal Medicine 09/19/22 documented as of this encounter
--- OUTSIDE RECORDS SUMMARY | 2024-11-27 10:41 | XMS_ITS | Encounter Summary ---
Author Organization [employer] Address [address] [place] [address] Care Team Providers Care Do All Operator Name Role Phone Rolanda Thakur MD Primary Care Provider [phone]- [phone] Reason for Visit * Reason Onset Date Comments EKG 06/18/2024 Encounter Details Date Type Department Care Team ([facility] st Contact Info) Description 06/18/2024 Telephone [facility] CHC MED & PEDS [address] [place] [address] Rolanda Thakur MD [address] [place] [address] EKG Social History Tobacco Use Types Packs/Day [...] Given pt's symptoms, she would need a [facility] appointment to get the notes for our regulatory affairs strategy specialist to process the referral. * Telephone [...] should seek a neurology referral. She states vehicle service agent advised her to get a referral due to procedure done for cataracts might have struck a nerve and that might be were the headaches are coming from. * Telephone Encounter - Annabella Peña - 06/18/2024 4:03 PM EDT Tc from pt requesting status on order for EKG. Contact Paulette at [phone] documented in this encounter Plan of Treatment Not on file documented as of this encounter Visit Diagnoses Not on filedocumented in this encounter Additional Health Concerns Assessment Noted Time PHQ-9 Depression Total Score: 2 05/13/20 24 9:24 AM EDT documented as of this encounter Care Teams Do All Operator Relationship Specialty Start Date End Date Rolanda Thakur MD [address] [place] [id number] PCP - General Internal Medicine 09/19/22 documented as of this encounter
--- OUTSIDE RECORDS SUMMARY | 2024-11-27 10:41 | XMS_ITS | Encounter Summary ---
Author Organization [employer] Address [address] [place] [address] Care Team Providers Care Continuous Crusher Operator Name Role Phone Rolanda Thakur MD Primary Care Provider [phone]- [phone] Reason for Visit * Reason Onset Date Comments Med Refill 04/04/2024 Encounter Details Date Type Department Care Team (Late st Contact Info) Description 04/04/2024 Telephone [facility] [address] [place] [address] Rolanda Thakur MD [address] [place] [address] Med Refill Social History Tobacco Use Types [...] unspecified documented in this encounter Care Teams Continuous Crusher Operator Relationship Specialty Start Date End Date Rolanda Thakur MD [address] [place] [address] PCP - General Internal Medicine 09/19/22 documented as of this encounter
--- OUTSIDE RECORDS SUMMARY | 2024-11-27 10:41 | XMS_ITS | Encounter Summary ---
Author Organization [employer] Address [address] [place] [address] Care Team Providers Care Assembly Machine Operator Name Role Phone Rolanda Thakur MD Primary Care Provider +1- [phone] Reason for Visit * Reason Onset Date Comments Call Back Request 10/31/2024 Encounter Details Date Type Department Care Team ([facility] st Contact Info) Description 10/31/2024 Telephone [facility]INE [address] [place] [address] Rolanda Thakur MD 505 [place] [address] Call Back Request Social History Tobacco Use [...] to DR. Castañeda. Please contact pt at [phone]. documented in this encounter Plan of Treatment Not on file documented as of this encounter Visit Diagnoses Not on filedocumented in this encounter Additional Health Concerns Assessment Noted Time PHQ-9 Depression Total Score: 2 05/13/20 24 9:24 AM EDT documented as of this encounter Care Teams Assembly Machine Operator Relationship Specialty Start Date End Date Rolanda Thakur MD [address] [place] [id number] PCP - General Internal Medicine 09/19/22 documented as of this encounter
--- OUTSIDE RECORDS SUMMARY | 2024-11-27 10:41 | XMS_ITS | Encounter Summary ---
Author Organization [employer] Address 75 [facility] 7 [place] [address] Care Team Providers Care Tape Recording Machine Operator Name Role Phone Rolanda Thakur MD Primary Care Provider +1- [phone] Reason for Visit * Reason Onset Date Comments Results 03/29/2024 Encounter Details Date Type Department Care Team ([facility] st Contact Info) Description 03/29/2024 Telephone [facility]INE [address] [place] [address] Rolanda Thakur MD 505 [place], [place] [phone] Results Social History Tobacco Use Types Packs/Day [...] on filedocumented in this encounter Care Teams Tape Recording Machine Operator Relationship Specialty Start Date End Date Rolanda Thakur MD [address] [place] [id number] PCP - General Internal Medicine 09/19/22 documented as of this encounter
--- OUTSIDE RECORDS SUMMARY | 2024-11-27 10:41 | XMS_ITS | Encounter Summary ---
Author Organization [employer] Address [address] [place] [address] [place] [address] Care Team Providers Care Front End Engineer Name Role Phone Rolanda Thakur MD Primary Care Provider Reason for Visit * Reason Onset Date Comments Medication Question 12/09/2022 Encounter Details Date Type Department Care Team ([facility] st Contact Info) Description 12/09/2022 Telephone [facility] CHC MED & PEDS [address] [place] [address] Rolanda Thakur MD 505 [place] [address] Medication Question Social History Tobacco Use Types [...] - 12/09/2022 3:51 PM EDT Tc from [facility] requesting a clarification in new script for Synthroid 50 MCG tablet if dosage was sent incorrectly because in last script (levothyroxine (Synthroid) 150 MCG tablet) it [id number] and New script is it 50 mcg so pharmacy is requesting some clarification Please contact Pharmacy at [phone] documented in this encounter Plan of Treatment Not on file documented as of this encounter Visit Diagnoses Not on filedocumented in this encounter Care Teams Front End Engineer Relationship Specialty Start Date End Date Rolanda Thakur MD [address] [place] [id number] PCP - General Internal Medicine 09/19/22 documented as of this encounter
--- OUTSIDE RECORDS SUMMARY | 2024-11-27 10:41 | XMS_ITS | Encounter Summary ---
Author Organization [employer] Address [address] [place] [address] 7 [place] [address] Care Team Providers Care Cheese Specialist Name Role Phone Rolanda Thakur MD Primary Care Provider [phone]- [phone] Encounter Details Date Type Department Care Team ([facility] st Contact Info) Description 11/20/2024 Orders Only [facility] CHC MED & PEDS [address] [place] [address] Rolanda Thakur MD 505 [place] [address] Type 2 diabetes mellitus without complication, without long-term current use of insulin ([facility]) (Primary Dx); UTI symptoms Social History Tobacco [...] Procedure Name Priority Date/Time Associated Diagnosis Comments CULTURE, URINE, ROUTINE Routine 11/23/2024 9:05 AM EDT Type 2 diabetes mellitus without complication, without long-term current use of insulin ([facility]) UTI symptoms CBC WITH AUTO DIFFERENTIAL Routine 11/23/2024 9:00 AM EDT Type 2 diabetes mellitus without complication, without long-term current use of insulin ([facility]) BASIC METABOLIC PANEL Routine 11/23/2024 9:00 AM EDT Type 2 diabetes mellitus without complication, without long-term current use of insulin ([facility]) documented in this encounter Results * Culture, Urine, Routine (11/23/2024 9:05 AM EDT) Urine Urine specimen obtained by clean catch procedure / Unknown 11/23/2024 9:05 AM EDT 11/23/2024 11:26 AM EDT Comment:[facility] - 11/24/2024 11:22 AM EDT Urine Culture Report Result Urine Culture 10,000 to 50,000 cfu/ml Urine Culture Mixed bacterial hailey characteristic of Urine Culture urogenital contamination. Specimen Source: Urine clean catch us Rolanda Thakur MD LAB MICROBIOLOGY - GENERAL ORDERABLES Final Result [facility] [address] [place] [phone] * (ABNORMAL) CBC auto differential (11/23/2024 9:00 AM EDT) White Blood Count 8.5 4.8 - 10.8 X10*3/uL [facility] Red Blood Count 4.27 4.20 - 5.50 X10*6/uL [facility] Hemoglobin 12.8 12.0 - 16.0 g/dl [facility] Hematocrit 37.0 37.0 - 47.0 % [facility] Mean Corpuscular Volume 86.7 80.0 - 98.0 fL [facility] Mean Corpuscular Hemoglobin 30.0 27.0 - 33.0 pg [facility] Mean Corpuscular HGB Conc 34.6 31.0 - 35.0 g/dl [facility] Red Cell Distribution Width 13.1 11.0 - 16.0 % [facility] Platelet Count 269 160 - 400 X10*3/uL [facility] Mean Platelet Volume 9.1(L) 9.4 - 12.3 fL [facility] Neutrophils Percent Auto 64.4 45 - 73 % [facility] Imm Gran Pct Auto 0.4 0.0 - 0.4 % [facility] Lymphocytes Percent Auto 23.8 20 - 40 % [facility] Monocytes Percent Auto 5.9 2 - 11 % [facility] Eosinophils Percent Auto 4.7(H) 0 - 4 % [facility] Basophils Percent Auto 0.8 0 - 2 % [facility] NRBC Pct Auto 0.0 0.0 - 0.2 /100WBC [facility] Neutrophils Absolute Auto 5.4 2.0 - 8.3 x10*3/uL [facility] Imm Gran Abs Auto 0.03 0.00 - 0.03 X10*3/uL [facility] Lymphocytes Absolute Auto 2.0 1.2 - 4.9 X10*3/uL [facility] Monocytes Absolute Auto 0.5 0.1 - 1.2 X10*3/uL [facility] Eosinophils Absolute Auto 0.4 0.0 - 0.4 X10*3/uL [facility] Basophils Absolute Auto 0.1 0.0 - 0.2 X10*3/uL [facility] NRBC Abs Auto 0.000 0.0 - 0.012 X10*3/uL [facility] Blood Venous blood specimen / Unknown 11/23/2024 9:00 AM EDT 11/23/2024 11:37 AM EDT us Rolanda Thakur MD LAB BLOOD ORDERABLES Final Result [facility] [address] [place] [phone] * (ABNORMAL) Basic Metabolic Panel (11/23/2024 9:00 AM EDT) Sodium 135 135 - 145 mmol/L [facility] Potassium 4.4 3.3 - 5.1 mmol/L [facility] Chloride 103 96 - 108 mmol/L [facility] Carbon Dioxide 24 22 - 29 mmol/L [facility] Anion Gap 12 12 - 20 [facility] Urea Nitrogen (BUN) 21(H) 9 - 16 mg/dL [facility] Creatinine, Serum 0.89 0.5 - 1.4 mg/dL [facility] Estimated Glomerular Filt Rate >60 [facility] Comment:Chronic Kidney Disea se: Estimated GFR < 60 mL/min/[id number] Kidney Disease: Estimated GFR < 15 mL/min/1.73m2 Glucose 161(H) 60 - 115 mg/dL [facility] Calcium 10.2 8.4 - 10.2 mg/dL [facility] Blood Venous blood specimen / Unknown 11/23/2024 9:00 AM EDT 11/23/2024 11:37 AM EDT Rolanda Thakur MD LAB BLOOD ORDERABLES Final Result [facility] [address] [place] [phone] documented in this encounter Visit Diagnoses Diagnosis Type 2 diabetes mellitus without complication, without long-term current use of insulin ([facility])- Primary UTI symptoms documented in this encounter Additional Health Concerns Assessment Noted Time PHQ-9 Depression Total Score: 2 05/13/20 24 9:24 AM EDT documented as of this encounter Care Teams Cheese Specialist Relationship Specialty Start Date End Date Rolanda Thakur MD [address] [place] [phone] PCP - General Internal Medicine 09/19/22 documented as of this encounter
--- OUTSIDE RECORDS SUMMARY | 2024-11-27 10:41 | XMS_ITS | Encounter Summary ---
Author Organization [employer] Address 75 [facility] 7 [place] [address] Care Team Providers Care Protein Purification Scientist Name Role Phone Rolanda Thakur MD Primary Care Provider +[phone]- [phone] Reason for Visit * Reason Onset Date Comments Durable Medical Equipment 04/29/2024 Encounter Details Date Type Department Care Team (Late st Contact Info) Description 04/29/2024 Telephone [facility] MEDICINE [address] [place] [address] Rolanda Thakur MD [address] [place] [address] Durable Medical Equipment Social History Tobacco Use [...] - 04/29/2024 3:34 PM EDT Tc from [facility] pharmacy stating pt is requesting blood pressure monitor but they don't have a script. If any questions you can contact [email or web address] at [phone]. documented in this encounter Plan of Treatment Not on file documented as of this encounter Visit Diagnoses Not on filedocumented in this encounter Care Teams Protein Purification Scientist Relationship Specialty Start Date End Date Rolanda Thakur MD [address] [place] [address] PCP - General Internal Medicine 09/19/22 documented as of this encounter
--- OUTSIDE RECORDS SUMMARY | 2024-11-27 10:41 | XMS_ITS | Encounter Summary ---
Author Organization [employer] Address [address] [place] [address] [place] [address] Care Team Providers Care Flat Hammerer Name Role Phone Rolanda Thakur MD Primary Care Provider [phone] Encounter Details Date Type Department Care Team ([facility] st Contact Info) Description 05/01/2023 Orders Only [facility] CHC MED & PEDS [address] [place] [address] Rolanda Thakur MD [address] [place] [address] Diabetic polyneuropathy associated with type 2 diabetes [...] associated with type 2 diabetes mellitus ([facility]/HCC) TSH W/REFLEX TO FT4 Routine 05/08/2023 1 1:04 AM EDT Diabetic polyneuropathy associated with type 2 diabetes mellitus ([facility]/HCC) CBC WITH AUTO DIFFERENTIAL Routine 05/08/2023 11:04 AM EDT Diabetic polyneuropathy associated with type 2 diabetes mellitus ([facility]/HCC) HEMOGLOBIN A1C Routine 05/08/2023 11:04 AM EDT Diabetic polyneuropathy associated with type 2 diabetes mellitus ([facility]/HCC) HEPATIC FUNCTION PANEL Routine 05/08/2023 11:04 AM EDT Diabetic polyneuropathy associated with type 2 diabetes mellitus ([facility]/HCC) LIPID PANEL, STANDARD Routine 05/08/2023 11:04 AM EDT Diabetic polyneuropathy associated with type 2 diabetes mellitus ([facility]/HCC) BASIC METABOLIC PANEL Routine 05/08/2023 11:04 AM EDT Diabetic polyneuropathy associated with type 2 diabetes mellitus ([facility]/HCC) documented in this encounter Results * (ABNORMAL) Hemoglobin A1c (05/08/2023 11:04 AM EDT) Hemoglobin A1c 6.1(H) <6.0 % [facility] Comment:Hemoglobin A1C Refer ence Range Adults: 4.8 - 6.0 % Non diabetic: < 6.0 % Goal: < 7.0 %Additional Action Suggested: > 8.0 %Note: Hemoglobin A1c results are invalid for patients with abnormal amounts of HbF. Blood transfusions may impact the HbA1c concentration in the patient sample. Estimated Average Glucose 128 mg/dL [facility] Comment:eAG = Estimated ave rage glucose which is %A1C expressed asaverage glucose, using the formula of the H7L-YuxvzsmHvdnepx Glucose study (ADAG), Diabetes Care, Vol.31,#8,Mar. 2007 Blood Venous blood specimen / Unknown 05/08/2023 11:04 AM EDT 05/08/2023 1:46 PM EDT us Rolanda Thakur MD LAB BLOOD ORDERABLES Final Result Performing Organization Address City/[facility]/ZIP Co de Phone Number [facility] [address] [place] [phone] * Vitamin D, 25-Hydroxy, Total, Immunoassay (05/08/2023 11:04 AM EDT) Vitamin D 25-OH Total 84.6 >30 ng/mL [facility] Comment:Health Based Referen ce Values*< 20 ng/mL Detvihttx66-53 ng/mL Insufficient> 30 ng/mL Sufficient*Arabella MCALLISTER. N [...] Final Result Performing Organization Address [facility] Co de Phone Number [facility] [address] [place] [phone] * Hepatic Function Panel (05/08/2023 11:04 AM EDT) Bilirubin, Total 0.5 0.0 - 1.0 mg/dL [facility] Bilirubin, Direct 0.2 0.0 - 0.5 mg/dL [facility] Aspartate Amino Transferase 22 5 - 31 U/L [facility] Alanine Aminotransferase 18 0 - 31 U/L [facility] Total Protein 7.1 6.5 - 8.0 g/dL [facility] Albumin Level 4.4 3.5 - 5.0 g/dL [facility] Alkaline Phosphatase 70 39 - 117 U/L [facility] Blood Venous blood specimen / Unknown 05/08/2023 11:04 AM EDT 05/08/2023 1:47 PM EDT us Rolanda Thakur MD LAB BLOOD ORDERABLES Final Result [facility] [address] [place] [phone] * (ABNORMAL) Lipid Panel, Standard (05/08/2023 11:04 AM EDT) Triglycerides 110 <150 mg/dL [facility] Comment:Desirable Triglyceri de: less than 150 mg/dLBorderline High Triglyceride 150-199 mg/dLHigh Triglyceride: 200-499 mg/dLVery High Triglyceride: greater than or equal to 5OO mg/dL Cholesterol 198 <200 mg/dL [facility] Comment:Desirable Cholestero l: less than 200 mg/dLBorderline High Cholesterol: 200-239 mg/dLHigh Cholesterol: greater than 239 mg/dL LDL Cholesterol Calculated 121(H) <100 mg/dL [facility] Comment:Desirable LDL: less than 100 mg/dLNear Optimal/Above Optimal LDL: 110- 129 mg/dLBorderline High LDL: 130-159 mg/dLHigh LDL: 160-189 mg/dLVery High LDL: greater than or equal to 190 mg/dL HDL Cholesterol 55 >40 mg/dL [facility] Comment:Desirable HDL: great er than 40 mg/dL Note: This HDL assay may give artificially low results in patients with liver disease. Blood Venous blood specimen / Unknown 05/08/2023 11:04 AM EDT 05/08/2023 1:47 PM EDT us Rolanda Thakur MD LAB BLOOD ORDERABLES Final Result Performing Organization Address [facility]/ZIP Co de Phone Number [facility] [address] [place] [phone] * TSH W/Reflex to FT4 (05/08/2023 11:04 AM EDT) TSH reflex Free T4 0.53 0.32 - 4.0 uIU/mL [facility] Blood 05/08/2023 11:0 4 AM EDT 05/08/2023 1:47 PM EDT us Rolanda Thakur MD LAB BLOOD ORDERABLES Final Result Performing Organization Address [facility]/ZIP Co de Phone Number [facility] [address] [place] [phone] * (ABNORMAL) Basic Metabolic Panel (05/08/2023 11:04 AM EDT) Sodium 137 135 - 145 mmol/L [facility] Potassium 4.4 3.3 - 5.1 mmol/L [facility] Chloride 108 96 - 108 mmol/L [facility] Carbon Dioxide 24 22 - 29 mmol/L [facility] Anion Gap 9(L) 12 - 20 [facility] Urea Nitrogen (BUN) 14 9 - 16 mg/dL [facility] Creatinine, Serum 1.03 0.5 - 1.4 mg/dL [facility] Estimated Glomerular Filt Rate 53 [facility] Comment:NOTE: For -Am erican individuals, multiply the result by 1.210.Chronic Kidney Disease: Estimated GFR < 60 mL/min/1.43f7Hwdfll Kidney Disease: Estimated GFR < 15 mL/min/1.73m2 Glucose 208(H) 60 - 115 mg/dL [facility] Calcium 10.1 8.4 - 10.2 mg/dL [facility] Blood Venous blood specimen / Unknown 05/08/2023 11:04 AM EDT 05/08/2023 1:47 PM EDT us Rolanda Thakur MD LAB BLOOD ORDERABLES Final Result [facility] [address] [place] [phone] * (ABNORMAL) CBC auto differential (05/08/2023 11:04 AM EDT) White Blood Count 8.6 4.8 - 10.8 X10*3/uL [facility] Red Blood Count 4.27 4.20 - 5.50 X10*6/uL [facility] Hemoglobin 12.6 12.0 - 16.0 g/dl [facility] Hematocrit 37.9 37.0 - 47.0 % [facility] Mean Corpuscular Volume 88.8 80.0 - 98.0 fL [facility] Mean Corpuscular Hemoglobin 29.5 27.0 - 33.0 pg [facility] Mean Corpuscular HGB Conc 33.2 31.0 - 35.0 g/dl [facility] Red Cell Distribution Width 13.0 11.0 - 16.0 % [facility] Platelet Count 266 160 - 400 X10*3/uL [facility] Mean Platelet Volume 9.5 9.4 - 12.3 fL [facility] Neutrophils Percent Auto 50.3 45 - 73 % [facility] Imm Gran Pct Auto 0.3 0.0 - 0.4 % [facility] Lymphocytes Percent Auto 33.4 20 - 40 % [facility] Monocytes Percent Auto 7.0 2 - 11 % [facility] Eosinophils Percent Auto 7.8(H) 0 - 4 % [facility] Basophils Percent Auto 1.2 0 - 2 % [facility] NRBC Pct Auto 0.0 0.0 - 0.2 /100WBC [facility] Neutrophils Absolute Auto 4.3 2.0 - 8.3 x10*3/uL [facility] Imm Gran Abs Auto 0.03 0.00 - 0.03 X10*3/uL [facility] Lymphocytes Absolute Auto 2.9 1.2 - 4.9 X10*3/uL [facility] Monocytes Absolute Auto 0.6 0.1 - 1.2 X10*3/uL [facility] Eosinophils Absolute Auto 0.7(H) 0.0 - 0.4 X10*3/uL [facility] Basophils Absolute Auto 0.1 0.0 - 0.2 X10*3/uL [facility] NRBC Abs Auto 0.000 0.0 - 0.012 X10*3/uL [facility] Blood Venous blood specimen / Unknown 05/08/2023 11:04 AM EDT 05/08/2023 1:46 PM EDT Rolanda Thakur MD LAB BLOOD ORDERABLES Final Result [facility] [address] [place] [phone] documented in this encounter Visit Diagnoses Diagnosis Diabetic polyneuropathy associated with type 2 diabetes mellitus (CMS/HCC)- Primary documented in this encounter Care Teams Flat Hammerer Relationship Specialty Start Date End Date Rolanda Thakur MD [address] [place] [phone] PCP - General Internal Medicine 09/19/22 documented as of this encounter
--- OUTSIDE RECORDS SUMMARY | 2024-11-27 10:41 | XMS_ITS | Encounter Summary ---
Author Organization [employer] Address [address] [place] [address] [facility] [place] [address] Care Team Providers Care Adjuster Electrical Contacts Name Role Phone Rolanda Thakur MD Primary Care Provider [phone] Reason for Referral * Consultation (Routine) - Closed Specialty Diagnoses / Procedures Referred By Freddy meadows Referred To Contact Neurology Diagnoses Other polyneuropathy Rolanda Thakur MD [address] [place] [address] Phone: tel: fax: [facility] Neurology [address] [place], [place] Phone: tel: fax: Referral ID Status Reason Start Date Expiration Date V isits Requested Visits Authorized [id number] Closed Specialty Services Required 11/22/2023 11/21/2024 1 1 * Consultation (Routine) - Closed Specialty Diagnoses / Procedures Referred By Freddy meadows Referred To Contact Physiatry Diagnoses Other polyneuropathy Rolanda Thakur MD [address] [place] [address] Phone: tel: fax: Referral ID Status Reason Start Date Expiration Date V isits Requested Visits Authorized [id number] Closed Specialty Services Required 11/17/2023 11/16/2024 1 1 Encounter Details Date Type Department Care Team (Late st Contact Info) Description 11/16/2023 Orders Only [facility] CHC MED & PEDS [address] [place] [address] Rolanda Thakur MD [address] [place] [address] Other polyneuropathy (Primary Dx) Social History Tobacco [...] Primary documented in this encounter Care Teams Adjuster Electrical Contacts Relationship Specialty Start Date End Date Rolanda Thakur MD [address] [place] [address] PCP - General Internal Medicine 09/19/22 documented as of this encounter
--- OUTSIDE RECORDS SUMMARY | 2024-11-27 10:41 | XMS_ITS | Encounter Summary ---
Author Organization [employer] Address [address] [place] [address] 7 [place] [address] Care Team Providers Care Analog Device Designer Name Role Phone Rolanda Thakur MD Primary Care Provider [phone]- [phone] Reason for Visit * Reason Comments Med Refill Encounter Details Date Type Department Care Team (Late st Contact Info) Description 12/28/2022 Refill [facility] CHC MED & PEDS [address] [place] [address] Maren Hough MD [address] [place] [address] Type 2 diabetes mellitus without complication, without long-term current use of insulin ([facility]); Anxiety Social History Tobacco Use [...] complication, without long-term current use of insulin ([facility]) Anxiety Anxiety state, unspecified documented in this encounter Care Teams Analog Device Designer Relationship Specialty Start Date End Date Rolanda Thakur MD [address] [place] [address] PCP - General Internal Medicine 09/19/22 documented as of this encounter
--- OUTSIDE RECORDS SUMMARY | 2024-11-27 10:41 | XMS_ITS | Encounter Summary ---
Author Organization [employer] Address [address] [place] [address] [place] [address] Care Team Providers Care Artist Blacksmith Name Role Phone Rolanda Thakur MD Primary Care Provider Encounter Details Date Type Department Care Team ([facility] st Contact Info) Description 03/28/2024 Orders Only [facility] CHC MED & PEDS [address] [place], [place] [phone] Karen Alcantar MD [address] [place] [address] Social History Tobacco Use Types Packs/Day Years [...] Date End Date Rolanda Thakur MD [address] [place] [address] PCP - General Internal Medicine 09/19/22 documented as of this encounter
--- OUTSIDE RECORDS SUMMARY | 2024-11-27 10:41 | XMS_ITS | Encounter Summary ---
Author Organization [employer] Address [address] [place] [address] [place] [address] Care Team Providers Care Appeals Specialist Name Role Phone Rolanda Thakur MD Primary Care Provider [phone]- [phone] Reason for Visit * Reason Onset Date Comments Referral 09/29/2022 Encounter Details Date Type Department Care Team ([facility] st Contact Info) Description 09/29/2022 Telephone [facility] CHC MED & PEDS [address] [place] [address] Rolanda Thakur MD [address] [place] [address] Referral Social History Tobacco Use Types Packs/Day [...] to fax order to Dr Dempsey on [phone] Dempsey's office on [phone]. Will forward message to provider. RN called Roxanne and gave her the phone and fax number to Dr Dempsey's office and also to f/u when EMG order is placed by PCP. * Telephone Encounter - Machelle Adam RN - 10/03/2022 10:09 AM EST Return call placed to Haylie at [facility] [place] [facility] neuroscience, spoke with Jumana who states their office donot see pt for diabetic polyneuropathy but instead sees pt for foot drop or other issue. States Haylieis unavailable at this time but will informed her to call [facility] back if needed. Will forward message to PCP as FYI. * Telephone Encounter - Brinda Barnard - 09/29/2022 1:30 PM EST Tc from Haylie from [facility] [place] [facility] med / rehab calling to inform they need more dx clarification for referral that was sent . and phone # [phone] documented in this encounter Plan of Treatment Not on file documented as of this encounter Visit Diagnoses Diagnosis Diabetic polyneuropathy associated with diabetes mellitus due to underlying condition (CMS/[facility])- Primary documented in this encounter Care Teams Appeals Specialist Relationship Specialty Start Date End Date Rolanda Thakur MD [address] [place] [address] PCP - General Internal Medicine 09/19/22 documented as of this encounter
--- OUTSIDE RECORDS SUMMARY | 2024-11-27 10:41 | XMS_ITS | Encounter Summary ---
Author Organization [employer] Address [address] [place] [address] [place] [address] Care Team Providers Care Asparagus Cutter Name Role Phone Rolanda Thakur MD Primary Care Provider [phone]- [phone] Reason for Visit * Reason Comments Med Refill Encounter Details Date Type Department Care Team (Late st Contact Info) Description 05/20/2024 Refill [facility] CHC MED & PEDS [address] [place] [address] Rolanda Thakur MD [address] [place] [address] Diabetic polyneuropathy associated with type 2 diabetes mellitus ([facility]) Social History Tobacco Use Types [...] documented as of this encounter Care Teams Asparagus Cutter Relationship Specialty Start Date End Date Rolanda Thakur MD [address] [place] [address] PCP - General Internal Medicine 09/19/22 documented as of this encounter
--- OUTSIDE RECORDS SUMMARY | 2024-11-27 10:41 | XMS_ITS | Encounter Summary ---
Author Organization [employer] Address [address] [place] [address] [place] [address] Care Team Providers Care Project Surveyor Name Role Phone Rolanda Thakur MD Primary Care Provider Encounter Details Date Type Department Care Team ([facility] st Contact Info) Description 01/22/2024 Orders Only [facility] CHC MED & PEDS [address] [place] [address] Rolanda Thakur MD [address] [place] [address] Benign essential hypertension Social History Tobacco Use [...] AM EDT Narrative 02/19/2024 12:38 PM EDT ?[facility] ?[address] ?[place] [address] ?XRay Report ? Signed ? Patient: Angely Pineda ?MR#: [id number] ? : 1950 ?Acct:[id number] ? Age/Sex: 73 / F ?ADM Date: 02/19/24 ? Loc: HO.HHCX ? Attending Dr: Migdalia PALMER ? Ordering Physician: Migdalia Loza ?? Date of Service: 02/19/24 ?? Procedure(s): XR toe RT min 2V ?? Accession Number(s): [id number] ? cc: Migdalia Loza ? EXAMINATION: ?? [...] 1234 ? DD/ 112 ? TD/TT: ? Forklift Mechanic: SS ? Procedure Note Darrell Fonseca - 02/19/2024 [facility] [address] [place] [address] XRay Report Signed Patient: Angely Pineda#: [id number] : 1Acct:[id number] Age/Sex: 73 / FADM Date: 02/19/24 Loc: HO.HHCX Attending Dr: Migdalia PALMER Ordering Physician: Migdalia Loza Date of Service: 02/19/24 Procedure(s): XR toe RT min 2V Accession Number(s): [id number] cc: Migdalia Loza EXAMINATION: BILATERAL TOES CLINICAL [...] in OV> 02/19/24 1234 DD/ 1122 TD/TT: Forklift Mechanic: SS Migdalia PALMER IMG XR PROCEDURES Edited Resul t - Final documented in this encounter Visit Diagnoses Diagnosis Benign essential hypertension Essential hypertension, benign documented in this encounter Care Teams Project Surveyor Relationship Specialty Start Date End Date Rolanda Thakur MD [address] [place] [address] PCP - General Internal Medicine 09/19/22 documented as of this encounter
--- OUTSIDE RECORDS SUMMARY | 2024-11-27 10:41 | XMS_ITS | Encounter Summary ---
Author Organization [employer] Address [address] [facility] 7 [place] [address] Care Team Providers Care Food And Beverage Assistant Name Role Phone Rolanda Thakur MD Primary Care Provider [phone]- [phone] Encounter Details Date Type Department Care Team ([facility] st Contact Info) Description 11/22/2024 Telephone [facility] MED[facility]INE [address] [place] [address] Rolanda Thakur MD [address] [place] [address] Social History Tobacco Use Types Packs/Day Years [...] what is going on. Contact pt at [phone] from 11:30 to 12:30 due to her being in school she can't answer any timeother than that. documented in this encounter Plan of Treatment Not on file documented as of this encounter Visit Diagnoses Not on filedocumented in this encounter Additional Health Concerns Assessment Noted Time PHQ-9 Depression Total Score: 2 05/13/20 24 9:24 AM EDT documented as of this encounter Care Teams Food And Beverage Assistant Relationship Specialty Start Date End Date Rolanda Thakur MD [address] [place] [address] PCP - General Internal Medicine 09/19/22 documented as of this encounter
--- OUTSIDE RECORDS SUMMARY | 2024-11-27 10:41 | XMS_ITS | Encounter Summary ---
Author Organization [employer] Address [address] [place] [address] Care Team Providers Care Able Bodied Watchman Name Role Phone Rolanda Thakur MD Primary Care Provider [phone]- [phone] Reason for Referral * Consultation (Routine) - Closed Specialty Diagnoses / Procedures Referred By Contac t Referred To Contact Behavioral Health Diagnoses Anxiety Rolanda Thakur MD [address] [place] [address] Phone: tel: fax: Referral ID Status Reason Start Date Expiration Date V isits Requested Visits Authorized [id number] Closed Specialty Services Required 05/02/2024 05/02/2025 1 1 Encounter Details Date Type Department Care Team ([facility] Contact Info) Description 05/02/2024 Orders Only [facility] CHC MED & PEDS [address] [place] [address] Rolanda Thakur MD [address] [place] [address] Anxiety (Primary Dx) Social History Tobacco Use [...] unspecified documented in this encounter Care Teams Able Bodied Watchman Relationship Specialty Start Date End Date Rolanda Thakur MD [address] [place] [address] PCP - General Internal Medicine 09/19/22 documented as of this encounter
--- OUTSIDE RECORDS SUMMARY | 2024-11-27 10:41 | XMS_ITS | Encounter Summary ---
Author Organization [employer] Address [address] [place] [address] [place] [address] Care Team Providers Care Pigment Mixer Name Role Phone Rolanda Thakur MD Primary Care Provider Reason for Visit * Reason Onset Date Comments Medication Question 12/08/2022 Encounter Details Date Type Department Care Team ([facility] st Contact Info) Description 12/08/2022 Telephone [facility] CHC MED & PEDS [address] [place] [address] Rolanda Thakur MD [address] [place] [address] Medication Question Social History Tobacco Use Types [...] on filedocumented in this encounter Care Teams Pigment Mixer Relationship Specialty Start Date End Date Rolanda Thakur MD [address] [place] [address] PCP - General Internal Medicine 09/19/22 documented as of this encounter
--- OUTSIDE RECORDS SUMMARY | 2024-11-27 10:41 | XMS_ITS | Encounter Summary ---
Author Organization [employer] Address [address] [place] [address] 7 [place] [address] Care Team Providers Care Table Attendant Name Role Phone Rolanda Thakur MD Primary Care Provider [phone]- [phone] Encounter Details Date Type Department Care Team (Late st Contact Info) Description 04/08/2024 Orders Only [facility] [address] [place], [place] [phone] Rolanda Thakur MD [address] [place] [address] UTI symptoms (Primary Dx) Social History Tobacco [...] Primary documented in this encounter Care Teams Table Attendant Relationship Specialty Start Date End Date Rolanda Thakur MD [address] [place] [address] PCP - General Internal Medicine 09/19/22 documented as of this encounter
--- OUTSIDE RECORDS SUMMARY | 2024-11-27 10:41 | XMS_ITS | Encounter Summary ---
Author Organization [employer] Address [address] [place] [address] Care Team Providers Care Marine Oil Terminal Superintendent Name Role Phone Rolanda Thakur MD Primary Care Provider [phone]- [phone] Reason for Visit * Reason Onset Date Comments Referral 06/13/2024 Encounter Details Date Type Department Care Team (Late st Contact Info) Description 06/13/2024 Telephone [facility] MEDICINE [address] [place] [address] Rolanda Thakur MD [address] [place], [place] [phone] Referral Social History Tobacco Use Types Packs/Day [...] documented as of this encounter Care Teams Marine Oil Terminal Superintendent Relationship Specialty Start Date End Date Rolanda Thakur MD [address] [place] [address] PCP - General Internal Medicine 09/19/22 documented as of this encounter
--- OUTSIDE RECORDS SUMMARY | 2024-11-27 10:41 | XMS_ITS | Encounter Summary ---
Author Organization [employer] Address [address] [place] [address] [place] [address] Care Team Providers Care Maintenance Advisor Name Role Phone Rolanda Thakur MD Primary Care Provider +1- [phone] Reason for Visit * Reason Comments Med Refill Encounter Details Date Type Department Care Team ([facility] st Contact Info) Description 01/05/2023 Refill [facility] MED & PEDS [address] [place] [address] Karoline Castañeda MD 505 [place] [address] Social History Tobacco Use Types Packs/Day Years [...] on filedocumented in this encounter Care Teams Maintenance Advisor Relationship Specialty Start Date End Date Rolanda Thakur MD [address] [place] [address] PCP - General Internal Medicine 09/19/22 documented as of this encounter
--- OUTSIDE RECORDS SUMMARY | 2024-11-27 10:41 | XMS_ITS | Encounter Summary ---
Author Organization [employer] Address [address] [place] [address] Care Team Providers Care Architect Marine Name Role Phone Rolanda Thakur MD Primary Care Provider +1- [phone] Reason for Visit * Reason Onset Date Comments Call Back Request 11/27/2024 Encounter Details Date Type Department Care Team ([facility] st Contact Info) Description 11/27/2024 Telephone [facility] [address] [place] [address] Rolanda Thakur MD 505 [place] [address] Call Back Request Social History Tobacco Use [...] encounter Miscellaneous Notes * Telephone Encounter - Harriet Blood - 11/27/2024 8:09 AM EDT Tc from pt requesting a call back from nurses regarding a note that an antibiotic was noted in lab results. Pt states this is confused. documented in this encounter Plan of Treatment Not on file documented as of this encounter Visit Diagnoses Not on filedocumented in this encounter Additional Health Concerns Assessment Noted Time PHQ-9 Depression Total Score: 2 05/13/20 24 9:24 AM EDT documented as of this encounter Care Teams Architect Marine Relationship Specialty Start Date End Date Rolanda Thakur MD [address] [place] [address] PCP - General Internal Medicine 09/19/22 documented as of this encounter
--- OUTSIDE RECORDS SUMMARY | 2024-11-27 10:41 | XMS_ITS | Encounter Summary ---
Author Organization [employer] Address [address] [place] [place] [address] Care Team Providers Care Filter Screen Cleaner Name Role Phone Rolanda Thakur MD Primary Care Provider +1- [phone] Reason for Visit * Reason Onset Date Comments Call Back Request 11/17/2023 Encounter Details Date Type Department Care Team ([facility] st Contact Info) Description 11/17/2023 Telephone [facility] MEDICINE 230 [place] [address] Rolanda Thakur MD 505 [place] [address] Call Back Request Social History Tobacco Use [...] Message sent to PCP for review through [employer] portal * Telephone Encounter - Jenny Neff - 11/17/2023 8:06 AM EDT Tc from pt requesting a call back pt stated needs more information and clarifications 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 Please contact pt. documented in this encounter Plan of Treatment Not on file documented as of this encounter Visit Diagnoses Not on filedocumented in this encounter Care Teams Filter Screen Cleaner Relationship Specialty Start Date End Date Rolanda Thakur MD [address] [place] [address] PCP - General Internal Medicine 09/19/22 documented as of this encounter
--- OUTSIDE RECORDS SUMMARY | 2024-11-27 10:41 | XMS_ITS | Encounter Summary ---
Author Organization [employer] Address [address] [place] [address] [place] [address] Care Team Providers Care Solar Energy Engineer Name Role Phone Rolanda Thakur MD Primary Care Provider Encounter Details Date Type Department Care Team ([facility] st Contact Info) Description 05/16/2023 Orders Only [facility] CH[facility] MED & PEDS [address] [place] [address] Rolanda Thakur MD 505 [place] [address] Bilateral leg paresthesia (Primary Dx); Anxiety; Diabetic [...] B6 (10/10/2023 12:50 PM EST) Pathologist [facility] [place] Vitamin B6 16.0 2.1 - 21.7 ng/mL [facility] Comment:Vitamin supplementat ion within 24 hours prior toblood draw may affect the accuracy of the results.This test was developed and its analytical performancecharacteristics have been determined by [employer] [place], [place]. It hasnot been cleared or approved by the U.S. Food and DrugAdministration. This assay has been validated pursuantto the CLIA regulations and is used for clinicalpurposes.THIS TEST WAS PERFORMED AT:[employer] [place] [address]CQFLJLATHEO PEDERSEN MD,PHD Blood Venous blood specimen / Unknown 10/10/2023 12:50 PM EST 10/10/2023 2:41 PM EST us Rolanda Thakur MD LAB BLOOD ORDERABLES Final Result [facility] [address] [place] [address] [phone] * (ABNORMAL) Vitamin B12 (10/10/2023 12:50 PM EST) Vitamin B12 1,388(H) 200 - 900 pg/mL [facility] Comment:NORMAL 200-900 PG/ML INDETERMINATE 160-199 PG/ML DEFICIENT < 160 PG/ML Blood Venous blood specimen / Unknown 10/10/2023 12:50 PM EST 10/10/2023 2:41 PM EST Rolanda Thakur MD LAB BLOOD ORDERABLES Final Result Performing Organization Address City/[facility]/ZIP Co de Phone Number [facility] [address] [place] [address] [phone] * TSH W/Reflex to FT4 (10/10/2023 12:50 PM EST) Pathologist [facility] [place] TSH reflex Free T4 0.35 0.32 - 4.0 uIU/mL [facility] Blood 10/10/2023 12:5 0 PM EST 10/10/2023 2:41 PM EST us Rolanda Thakur MD LAB BLOOD ORDERABLES Final Result Performing Organization Address City/[facility]/ZIP Co de Phone Number [facility] [address] [place] [phone] * (ABNORMAL) CBC auto differential (10/10/2023 12:50 PM EST) White Blood Count 8.0 4.8 - 10.8 X10*3/uL [facility] Red Blood Count 4.19(L) 4.20 - 5.50 X10*6/uL [facility] Hemoglobin 12.3 12.0 - 16.0 g/dl [facility] Hematocrit 36.6(L) 37.0 - 47.0 % [facility] Mean Corpuscular Volume 87.4 80.0 - 98.0 fL [facility] Mean Corpuscular Hemoglobin 29.4 27.0 - 33.0 pg [facility] Mean Corpuscular HGB Conc 33.6 31.0 - 35.0 g/dl [facility] Red Cell Distribution Width 12.8 11.0 - 16.0 % [facility] Platelet Count 252 160 - 400 X10*3/uL [facility] Mean Platelet Volume 9.5 9.4 - 12.3 fL [facility] Neutrophils Percent Auto 55.5 45 - 73 % [facility] Imm Gran Pct Auto 0.4 0.0 - 0.4 % [facility] Lymphocytes Percent Auto 31.3 20 - 40 % [facility] Monocytes Percent Auto 6.0 2 - 11 % [facility] Eosinophils Percent Auto 5.9(H) 0 - 4 % [facility] Basophils Percent Auto 0.9 0 - 2 % [facility] NRBC Pct Auto 0.0 0.0 - 0.2 /100WBC [facility] Neutrophils Absolute Auto 4.5 2.0 - 8.3 x10*3/uL [facility] Imm Gran Abs Auto 0.03 0.00 - 0.03 X10*3/uL [facility] Lymphocytes Absolute Auto 2.5 1.2 - 4.9 X10*3/uL [facility] Monocytes Absolute Auto 0.5 0.1 - 1.2 X10*3/uL [facility] Eosinophils Absolute Auto 0.5(H) 0.0 - 0.4 X10*3/uL [facility] Basophils Absolute Auto 0.1 0.0 - 0.2 X10*3/uL [facility] NRBC Abs Auto 0.000 0.0 - 0.012 X10*3/uL [facility] Blood Venous blood specimen / Unknown 10/10/2023 12:50 PM EST 10/10/2023 2:41 PM EST us Rolanda Thakur MD LAB BLOOD ORDERABLES Final Result [facility] [address] [place] [phone] [phone] documented in this encounter Visit Diagnoses Diagnosis Bilateral leg paresthesia- Primary Disturbance of skin sensation Anxiety Anxiety state, unspecified Diabetic polyneuropathy associated with type 2 diabetes mellitus ([facility]) documented in this encounter Care Teams Solar Energy Engineer Relationship Specialty Start Date End Date Rolanda Thakur MD [address] [place] [address] PCP - General Internal Medicine 09/19/22 documented as of this encounter
--- OUTSIDE RECORDS SUMMARY | 2024-11-27 10:41 | XMS_ITS | Encounter Summary ---
Author Organization [employer] Address [address] [place] [address] [place] [address] Care Team Providers Care Wafer Line Worker Name Role Phone Rolanda Thakur MD Primary Care Provider +1- [phone] Encounter Details Date Type Department Care Team (Late st Contact Info) Description 12/07/2023 Telephone [facility] MEDICINE [address] [place] [address] [phone] Rolanda Thakur MD [address] [place] [address] Social History Tobacco Use Types Packs/Day Years [...] on filedocumented in this encounter Care Teams Wafer Line Worker Relationship Specialty Start Date End Date Rolanda Thakur MD [address] [place] [address] PCP - General Internal Medicine 09/19/22 documented as of this encounter
--- OUTSIDE RECORDS SUMMARY | 2024-11-27 10:41 | XMS_ITS | Encounter Summary ---
Author Organization [employer] Address [address] [place] [address] [place] [address] Care Team Providers Care Body Painter Name Role Phone Rolanda Thakur MD Primary Care Provider [phone]- [phone] Encounter Details Date Type Department Care Team ([facility] st Contact Info) Description 05/22/2024 Orders Only [facility] CH[facility] MED & PEDS [address] [place] [address] Rolanda Thakur MD 505 [place] [address] Social History Tobacco Use Types Packs/Day Years [...] documented as of this encounter Care Teams Body Painter Relationship Specialty Start Date End Date Rolanda Thakur MD [address] [place] [address] PCP - General Internal Medicine 09/19/22 documented as of this encounter
--- OUTSIDE RECORDS SUMMARY | 2024-11-27 10:41 | XMS_ITS | Clinical Summary ---
Author Organization [facility] Address [address] [place], [place] [id number] Care Team Providers Care Legislators Name Role Phone Rahel Hough MD Primary Care Provider [phone] Allergies Active Allergy Reactions Criticality Noted Date [...] mg by mouth daily. 0 09/09/2020 Active [place]-3 Fatty Acids (FISH OIL) 1000 MG CAPS [...] age to complete this topic Care Teams Legislators Relationship Specialty Start Date End Date Rahel Hough MD [address] [facility] [place] [address] PCP - General Internal Medicine 11/20/20
--- OUTSIDE RECORDS SUMMARY | 2024-11-27 10:41 | XMS_ITS | Encounter Summary ---
Author Organization [employer] Address [address] [place] [address] Care Team Providers Care Laborer Adjustable Steel Joist Name Role Phone Rolanda Thakur MD Primary Care Provider [phone]- [phone] Reason for Visit * Reason Onset Date Comments Created In Error 04/29/2024 Encounter Details Date Type Department Care Team (Late st Contact Info) Description 04/29/2024 Telephone [facility] MEDICINE [address] [place], [place] [phone] Rolanda Thakur MD 505 [place], [place] [phone] Created In Error Social History Tobacco Use [...] on filedocumented in this encounter Care Teams Laborer Adjustable Steel Joist Relationship Specialty Start Date End Date Rolanda Thakur MD 505 [place] [address] PCP - General Internal Medicine 09/19/22 documented as of this encounter
--- OUTSIDE RECORDS SUMMARY | 2024-11-27 10:41 | XMS_ITS | Encounter Summary ---
Author Organization [employer] Address [address] [place] [address] [place] [address] Care Team Providers Care Gis Mapping Technician Name Role Phone Rolanda Thakur MD Primary Care Provider [phone]- [phone] Reason for Referral * Consultation (Routine) - Pending Review Specialty Diagnoses / Procedures Referred By Contac t Referred To Contact Endocrinology Diagnoses Type 2 diabetes mellitus without complication, without long-term current use of insulin (CMS/HCC) Benign essential hypertension Rolanda Thakur MD [address] [place] [address] Phone: tel: fax: [facility] Endocrinology [address] [place] [address] Phone: tel: fax: Referral ID Status Reason Start Date Expiration Date Visits Requested Visits Authorized [id number] Pending Review Specialty Services Required 11/07/2024 11/07/2025 1 1 Encounter Details Date Type Department Care Team (Late st Contact Info) Description 11/07/2024 Orders Only [facility] MEDICINE [address] [place] [address] Rolanda Thakur MD [address] [place] [address] Type 2 diabetes mellitus without complication, without [...] complication, without long-term current use of insulin ([facility]) Benign essential hypertension Expected: 11/07/2024 (Approximate), Expires: 11/07/2025 documented as of this encounter Visit Diagnoses Diagnosis Type 2 diabetes mellitus without complication, without long-term current use of insulin ([facility])- Primary Benign essential hypertension Essential hypertension, benign documented in this encounter Additional Health Concerns Assessment Noted Time PHQ-9 Depression Total Score: 2 05/13/20 24 9:24 AM EDT documented as of this encounter Care Teams Gis Mapping Technician Relationship Specialty Start Date End Date Rolanda Thakur MD [address] [place] [phone] PCP - General Internal Medicine 09/19/22 documented as of this encounter
--- OUTSIDE RECORDS SUMMARY | 2024-11-27 10:41 | XMS_ITS | Encounter Summary ---
Author Organization [employer] Address [address] [place] [address] Care Team Providers Care Clinical Research Director Name Role Phone Rolanda Thakur MD Primary Care Provider [phone]- [phone] Reason for Visit * Reason Onset Date Comments Medication Question 04/04/2024 Encounter Details Date Type Department Care Team (Late st Contact Info) Description 04/04/2024 Telephone [facility] MED[facility]INE [address] [place] [address] Rolanda Thakur MD 505 [place], [place] [phone] Medication Question Social History Tobacco Use Types [...] filedocumented in this encounter Care Teams Clinical Research Director Relationship Specialty Start Date End Date Rolanda Thakur MD [address] [place] [address] PCP - General Internal Medicine 09/19/22 documented as of this encounter
--- OUTSIDE RECORDS SUMMARY | 2024-11-27 10:41 | XMS_ITS | Encounter Summary ---
Author Organization [employer] Address 75 [facility] 7 [place] [address] Care Team Providers Care Supervisor Statement Clerks Name Role Phone Rolanda Thakur MD Primary Care Provider [phone]- [phone] Reason for Visit * Reason Onset Date Comments Nurse Triage 04/04/2024 Encounter Details Date Type Department Care Team (Late st Contact Info) Description 04/04/2024 Telephone [facility] MEDICINE [address] [place] [address] Rolanda Thakur MD 505 [place] [address] Nurse Triage Social History Tobacco Use Types [...] pt. She states that she went to [facility] ED for Anxiety panic attacks on [...] got treated horribly by the staff at [facility] and she will never go there [...] care coordinators so that they can get [facility] ED notes from 03/30/24 Ed visit into pt. Chart and any labs, EKG's etc.. into pt. Chart for visit on 04/05/24 at 315pm. Protocol Used: Anxiety and Panic Attack (Adult) Protocol-Based Disposition: Go to [place] [place] (or to Office with PCP Approval)- [...] filedocumented in this encounter Care Teams Supervisor Statement Clerks Relationship Specialty Start Date End Date Rolanda Thakur MD [address] [place] [address] PCP - General Internal Medicine 09/19/22 documented as of this encounter
--- OUTSIDE RECORDS SUMMARY | 2024-11-27 10:42 | XMS_ITS | Encounter Summary ---
Author Organization [employer] Address 75 [facility] 7 [place] [address] Care Team Providers Care Clerical Support Specialist Name Role Phone Rolanda Thakur MD Primary Care Provider [phone]- [phone] Reason for Visit * Reason Onset Date Comments Nurse Triage 08/09/2024 Encounter Details Date Type Department Care Team (Late st Contact Info) Description 08/09/2024 Telephone [facility] MEDICINE [address] [place] [address] Rolanda Thakur MD 505 [place] [address] Nurse Triage Social History Tobacco Use Types [...] precautions and reasons to call back. Reviewed [facility] operating hours and that wait times vary. Protocol Used: Neck Pain or Stiffness (Adult) Protocol-Based Disposition: See in Office or Video Visit Today or Tomorrow Future Appointments Date Time Provider Department Center 08/10/2024 9:40 AM [facility] 2 WALK-IN [facility] Insurance verified as active per [employer] [...] as of this encounter Care Teams Clerical Support Specialist Relationship Specialty Start Date End Date Rolanda Thakur MD [address] [place] [address] PCP - General Internal Medicine 09/19/22 documented as of this encounter
--- OUTSIDE RECORDS SUMMARY | 2024-11-27 10:42 | XMS_ITS | Encounter Summary ---
Author Organization [employer] Address 75 [facility] 7 [place] [address] Care Team Providers Care Party Host Name Role Phone Rolanda Thakur MD Primary Care Provider [phone]- [phone] Reason for Visit * Reason Onset Date Comments Med Refill 08/19/2024 Encounter Details Date Type Department Care Team (Late st Contact Info) Description 08/19/2024 Refill [facility] [address] [place] [address] Wyatt Huizar MD [address] [place] [address] Neck pain on left side Social History [...] documented as of this encounter Care Teams Party Host Relationship Specialty Start Date End Date Rolanda Thakur MD [address] [place] [address] PCP - General Internal Medicine 09/19/22 documented as of this encounter
--- OUTSIDE RECORDS SUMMARY | 2024-11-27 10:42 | XMS_ITS | Encounter Summary ---
Author Organization [employer] Address [address] [place] [address] Care Team Providers Care Golf Cart Attendant Name Role Phone Rolanda Thakur MD Primary Care Provider [phone]- [phone] Reason for Referral * Consultation (Routine) - Closed Specialty Diagnoses / Procedures Referred By Contac t Referred To Contact Endocrinology Diagnoses Type 2 diabetes mellitus without complication, without long-term current use of insulin (CMS/HCC) Rolanda Thakur MD [address] [place] [address] Phone: tel: fax: [facility] [address] [place] [phone] Phone: tel: fax: Referral ID Status Reason Start Date Expiration Date V isits Requested Visits Authorized [id number] Closed Specialty Services Required 08/26/2024 08/26/2025 1 1 Encounter Details Date Type Department Care Team (Late st Contact Info) Description 08/26/2024 Orders Only [facility] CHC MED & PEDS [address] [place] [address] Rolanda Thakur MD [address] [place] [address] Type 2 diabetes mellitus without complication, without [...] complication, without long-term current use of insulin ([facility]) Expected: 08/26/2024 (Approximate), Expires: 08/26/2025 documented as of this encounter Visit Diagnoses Diagnosis Type 2 diabetes mellitus without complication, without long-term current use of insulin ([facility])- Primary documented in this encounter Additional Health Concerns Assessment Noted Time PHQ-9 Depression Total Score: 2 05/13/20 24 9:24 AM EDT documented as of this encounter Care Teams Golf Cart Attendant Relationship Specialty Start Date End Date Rolanda Thakur MD [address] [place] [address] PCP - General Internal Medicine 09/19/22 documented as of this encounter
--- OUTSIDE RECORDS SUMMARY | 2024-11-27 10:42 | XMS_ITS | Encounter Summary ---
Author Organization [employer] Address [address] [place] [address] Care Team Providers Care Skin Therapist Name Role Phone Rolanda Thakur MD Primary Care Provider [phone]- [phone] Reason for Referral * Consultation (Routine) - Canceled Specialty Diagnoses / Procedures Referred By Contac t Referred To Contact Endocrinology Diagnoses Type 2 diabetes mellitus without complication, without long-term current use of insulin (CMS/HCC) Rolanda Thakur MD [address] [place] [address] Phone: tel: fax: Referral ID Status Reason Start Date Expiration Date Visits Requested Visits Authorized [id number] Canceled Specialty Services Required 10/08/2024 10/08/2025 1 1 Encounter Details Date Type Department Care Team (Late st Contact Info) Description 10/08/2024 Orders Only [facility] CH[facility] MED & PEDS [address] [place] [address] Rolanda Thakur MD [address] [place], [place] [phone] Type 2 diabetes mellitus without complication, without [...] complication, without long-term current use of insulin ([facility]) Expected: 10/08/2024 (Approximate), Expires: 10/08/2025 Scheduled Referrals Name Type Priority Associated Diagnoses Order Schedule Referral to Endocrinology Outpatient Referral Routine Type 2 diabetes mellitus without complication, without long-term current use of insulin ([facility]) Expected: 10/08/2024 (Approximate), Expires: 10/08/2025 documented as of this encounter Visit Diagnoses Diagnosis Type 2 diabetes mellitus without complication, without long-term current use of insulin ([facility])- Primary documented in this encounter Additional Health Concerns Assessment Noted Time PHQ-9 Depression Total Score: 2 05/13/20 24 9:24 AM EDT documented as of this encounter Care Teams Skin Therapist Relationship Specialty Start Date End Date Rolanda Thakur MD [address] [place] [address] PCP - General Internal Medicine 09/19/22 documented as of this encounter
--- OUTSIDE RECORDS SUMMARY | 2024-11-27 10:42 | XMS_ITS | Encounter Summary ---
Author Organization [employer] Address [address] [place] [address] [place] [address] Care Team Providers Care Project Geophysicist Name Role Phone Rolanda Thakur MD Primary Care Provider [phone]- [phone] Reason for Visit * Reason Onset Date Comments Referral 11/16/2023 Encounter Details Date Type Department Care Team ([facility] st Contact Info) Description 11/16/2023 Telephone [facility] MED & PEDS [address] [place] [address] Rolanda Thakur MD 505 [place] [address] Referral Social History Tobacco Use Types Packs/Day [...] MyChart encounter. Any questions, contact pt at [phone] documented in this encounter Plan of Treatment Not on file documented as of this encounter Visit Diagnoses Not on filedocumented in this encounter Care Teams Project Geophysicist Relationship Specialty Start Date End Date Rolanda Thakur MD [address] [place] [address] PCP - General Internal Medicine 09/19/22 documented as of this encounter
--- OUTSIDE RECORDS SUMMARY | 2024-11-27 10:42 | XMS_ITS | Clinical Summary ---
Author Organization [facility] Facility Address [address] [place] [address] Care Team Providers Care Marble Cleaner Name Role Phone Maren Hough MD Primary Care Provider [phone] Social History Tobacco Use Types Packs/Day Years [...] patient's age to complete this topic Insurance [facility] MEDICARE [facility] MEDICARE Care Teams Marble Cleaner Relationship Specialty Start Date End Date Maren Hough MD [address] [place] [address] PCP - General Family Medicine 06/20/22
--- OUTSIDE RECORDS SUMMARY | 2024-11-27 10:42 | XMS_ITS | Encounter Summary ---
Author Organization [employer] Address [address] [place] [address] Care Team Providers Care Financial Legal Assistant Name Role Phone Rolanda Thakur MD Primary Care Provider [phone]- [phone] Encounter Details Date Type Department Care Team ([facility] st Contact Info) Description 10/27/2023 Orders Only [facility] MED & PEDS [address] [place] [address] Bhavesh Yang, RN [address] [place], [place] Social History Tobacco Use Types Packs/Day [...] filedocumented in this encounter Care Teams Financial Legal Assistant Relationship Specialty Start Date End Date Rolanda Thakur MD [address] [place] [address] PCP - General Internal Medicine 09/19/22 documented as of this encounter
--- OUTSIDE RECORDS SUMMARY | 2024-11-27 10:42 | XMS_ITS | Encounter Summary ---
Author Organization [employer] Address [address] [place] [address] Care Team Providers Care Wet Silk Hanger Name Role Phone Rolanda Thakur MD Primary Care Provider [phone] Reason for Visit * Reason Onset Date Comments Nurse Triage 12/12/2023 Encounter Details Date Type Department Care Team (Late st Contact Info) Description 12/12/2023 Telephone [facility] MEDICINE [address] [place] [address] Rolanda Thakur MD [address] [place] [address] Nurse Triage Social History Tobacco Use Types [...] from pt requesting to speak to PCP corn cookerflight reservations manager in regards to scheduled sick visit tmr, states was advised to contact PCP before scheduled appt to see how pt is doing, pt stated they still has a severe cough. Director Of Vocational Guidance did advised appt is still expected. Pt is scheduled tmr 12/15/23 for ( chest congestion, cough , yellow nasal drainage. ) Please contact at [phone] * Telephone Encounter - Viktoria Schultz RN [...] point. Pt is advised to come to [facility] today to be seen since open till 8pm. PT is not sure if will be able to do that. Director Of Vocational Guidance contacted Haylie Barrientos [facility] and asked if would be possible to schedule Pt at [facility] 12/15/23 340pm apt which Pt [...] on filedocumented in this encounter Care Teams Wet Silk Hanger Relationship Specialty Start Date End Date Rolanda Thakur MD [address] [place] [address] PCP - General Internal Medicine 09/19/22 documented as of this encounter
--- OUTSIDE RECORDS SUMMARY | 2024-11-27 10:42 | XMS_ITS | Encounter Summary ---
Author Organization [employer] Address [address] [place] [address] Care Team Providers Care Range Aid Name Role Phone Rolanda Thakur MD Primary Care Provider [phone] Reason for Visit * Reason Onset Date Comments Medication Question 10/23/2023 Encounter Details Date Type Department Care Team (Late st Contact Info) Description 10/23/2023 Telephone [facility] MEDICINE [address] [place] [address] Rolanda Thakur MD [address] [place], [place] [phone] Medication Question Social History Tobacco Use Types [...] on filedocumented in this encounter Care Teams Range Aid Relationship Specialty Start Date End Date Rolanda Thakur MD [address] [place] [address] PCP - General Internal Medicine 09/19/22 documented as of this encounter
--- OUTSIDE RECORDS SUMMARY | 2024-11-27 10:42 | XMS_ITS | Encounter Summary ---
Author Organization [employer] Address [address] [place] [address] [place] [address] Care Team Providers Care Microsoft Exchange Administrator Name Role Phone Rolanda Thakur MD Primary Care Provider [phone]- [phone] Encounter Details Date Type Department Care Team (Latest Contact Info) Description 08/17/2021 Abstract [facility] CONVERSIONS Dental, Provider, DDS Social History [...] on filedocumented in this encounter Care Teams Microsoft Exchange Administrator Relationship Specialty Start Date End Date Rolanda Thakur MD 505 [facility] [place] [address] PCP - General Internal Medicine 09/19/22 documented as of this encounter
--- OUTSIDE RECORDS SUMMARY | 2024-11-27 10:42 | XMS_ITS | Encounter Summary ---
Author Organization [employer] Address [address] [place] [address] [place] [address] Care Team Providers Care Housing Quality Standard Inspector Name Role Phone Rolanda Thakur MD Primary Care Provider [phone]- [phone] Encounter Details Date Type Department Care Team (Late st Contact Info) Description 10/27/2023 Telephone [facility] MEDICINE [address] [place] [id number] Rolanda Thakur MD [address] [place] [address] Social History Tobacco Use Types Packs/Day Years [...] on filedocumented in this encounter Care Teams Housing Quality Standard Inspector Relationship Specialty Start Date End Date Rolanda Thakur MD [address] [place] [address] PCP - General Internal Medicine 09/19/22 documented as of this encounter
--- OUTSIDE RECORDS SUMMARY | 2024-11-27 10:42 | XMS_ITS | Encounter Summary ---
Author Organization [employer] Address [address] [place] [place] [address] Care Team Providers Care Software Consultant Name Role Phone Rolanda Thakur MD Primary Care Provider [phone]- [phone] Reason for Visit * Reason Comments Med Refill Encounter Details Date Type Department Care Team (Late st Contact Info) Description 08/27/2024 Refill [facility] MEDICINE [address] [place] [address] Rolanda Thakur MD [address] [place], [place] [phone] Type 2 diabetes mellitus without complication, without long-term current use of insulin ([facility]) Social History Tobacco Use Types [...] complication, without long-term current use of insulin ([facility]) documented in this encounter Additional Health Concerns Assessment Noted Time PHQ-9 Depression Total Score: 2 05/13/20 24 9:24 AM EDT documented as of this encounter Care Teams Software Consultant Relationship Specialty Start Date End Date Rolanda Thakur MD [address] [place] [address] PCP - General Internal Medicine 09/19/22 documented as of this encounter
--- OUTSIDE RECORDS SUMMARY | 2024-11-27 10:42 | XMS_ITS | Encounter Summary ---
Author Organization [employer] Address [address] [place] [address] Care Team Providers Care R&D Lab Technician Name Role Phone Rolanda Thakur MD Primary Care Provider [phone]- [phone] Reason for Visit * Reason Onset Date Comments Nurse Triage 01/03/2024 Encounter Details Date Type Department Care Team (Late st Contact Info) Description 01/03/2024 Telephone [facility] MEDICINE [address] [place] [address] Rolanda Thakur MD [address] [place] [address] Nurse Triage Social History Tobacco Use Types [...] on filedocumented in this encounter Care Teams R&D Lab Technician Relationship Specialty Start Date End Date Rolanda Thakur MD [address] [place] [address] PCP - General Internal Medicine 09/19/22 documented as of this encounter
--- OUTSIDE RECORDS SUMMARY | 2024-11-27 10:42 | XMS_ITS | Encounter Summary ---
Author Organization [employer] Address [address] [place] [address] Care Team Providers Care Early Childhood Worker Name Role Phone Rolanda Thakur MD Primary Care Provider [phone]- [phone] Reason for Visit * Reason Onset Date Comments Med Refill 10/27/2023 Encounter Details Date Type Department Care Team (Late st Contact Info) Description 10/27/2023 Telephone [facility] MEDICINE [address] [place] [address] Rolanda Thakur MD [address] [place] [address] Med Refill Social History Tobacco Use Types [...] on medication 125 Please contact pt @ [phone] No meds. * Telephone Encounter - Haylie Cantor RN - 10/27/2023 3:44 PM EST Patient reporting alternating days of synthroid 125 mcg and synthroid 137 mcg. Requesting new script for synthroid 125 mcg. Please review and advise, thanks. Tc from pt requesting levothyroxine (Synthroid) 125 MCG tablet, marketing copywriter do not see med in chart but pt stated has been taking this medication for 10 years, pt switch 137 and 125 every day, marketing copywriter attempted to contact pharmacy for clarifications but [facility] [address] open at 9:00AM. * Telephone Encounter - Jenny Neff - 10/27/2023 8:31 AM EST Tc from pt requesting levothyroxine (Synthroid) 125 MCG tablet, marketing copywriter do not see med in chart but pt stated has been taking this medication for 10 years, pt switch 137 and 125 every day, marketing copywriter attempted to contact pharmacy for clarifications but [facility] [address] open at 9:00AM. documented in this encounter Plan of Treatment Not on file documented as of this encounter Visit Diagnoses Not on filedocumented in this encounter Care Teams Early Childhood Worker Relationship Specialty Start Date End Date Rolanda Thakur MD [address] [place] [address] PCP - General Internal Medicine 09/19/22 documented as of this encounter
--- OUTSIDE RECORDS SUMMARY | 2024-11-27 10:42 | XMS_ITS | Encounter Summary ---
Author Organization [employer] Address [address] [place] [address] Care Team Providers Care Miter Saw Operator Name Role Phone Rolanda Thakur MD Primary Care Provider [phone]- [phone] Reason for Referral * Consultation (Routine) - Closed Specialty Diagnoses / Procedures Referred By Contac t Referred To Contact Podiatry Diagnoses Type 2 diabetes mellitus without complication, without long-term current use of insulin (CMS/HCC) Rolanda Thakur MD [address] [place] [address] Phone: tel: fax: Carl Avitia DPM Phone: tel: fax: Referral ID Status Reason Start Date Expiration Date V isits Requested Visits Authorized [id number] Closed Specialty Services Required 11/01/2023 10/31/2024 1 1 Encounter Details Date Type Department Care Team (Late st Contact Info) Description 10/23/2023 Orders Only [facility] CHC MED & PEDS [address] [place] [address] Rolanda Thakur MD [address] [place] [address] Acquired hypothyroidism (Primary Dx); Type 2 diabetes [...] (CMS/HCC) documented in this encounter Care Teams Miter Saw Operator Relationship Specialty Start Date End Date Rolanda Thakur MD [address] [place] [address] PCP - General Internal Medicine 09/19/22 documented as of this encounter
--- OUTSIDE RECORDS SUMMARY | 2024-11-27 10:42 | XMS_ITS | Encounter Summary ---
Author Organization [employer] Address 75 [facility] 7 [place] [address] Care Team Providers Care Upper Trimmer Name Role Phone Rolanda Thakur MD Primary Care Provider [phone]- [phone] Reason for Visit * Reason Onset Date Comments FYI 10/11/2024 Encounter Details Date Type Department Care Team (Late st Contact Info) Description 10/11/2024 Telephone [facility] [address] [place] [address] Rolanda Thakur MD [address] [place] [address] FYI Social History Tobacco Use Types Packs/Day [...] documented as of this encounter Care Teams Upper Trimmer Relationship Specialty Start Date End Date Rolanda Thakur MD [address] [place] [address] PCP - General Internal Medicine 09/19/22 documented as of this encounter
--- OUTSIDE RECORDS SUMMARY | 2024-11-27 10:42 | XMS_ITS | Encounter Summary ---
Author Organization [email or web address] Address [address] [place] [address] Care Team Providers Care Catering Truck Driver Name Role Phone Rolanda Thakur MD Primary Care Provider Encounter Details Date Type Department Care Team ([facility] st Contact Info) Description 08/18/2023 Orders Only [facility] CHC MED & PEDS [address] [place] [address] Rolanda Thakur MD [address] [place] [address] Social History Tobacco Use Types Packs/Day Years [...] on filedocumented in this encounter Care Teams Catering Truck Driver Relationship Specialty Start Date End Date Rolanda Thakur MD [address] [place] [address] PCP - General Internal Medicine 09/19/22 documented as of this encounter
--- OUTSIDE RECORDS SUMMARY | 2024-11-27 10:42 | XMS_ITS | Clinical Summary ---
Author Organization [employer] Address [address] [place] [address] 7 [place] [address] Care Team Providers Care Shoe Associate Name Role Phone Rolanda Thakur MD Primary Care Provider [phone] Allergies Active Allergy Reactions Criticality Noted Date [...] long-term current use of insulin ([facility]) Chew 4 tablets (16 g) if needed for low blood sugar. 50 tablet 12 03/06/20 24 2024 Active glucose blood ([employer] Ultra) test stripIndications: Type 2 diabetes mellitus without complication, without long-term current use of insulin ([facility]) USE DIRECTED TO TEST BLOOD GLUCOSE TWICE DAILY 100 strip 11 07/05/20 24 Active metFORMIN (Glucophage) 500 MG tabletIndications :Type 2 diabetes mellitus without complication, without long-term current use of insulin ([facility]) TAKE 1 TABLET BY MOUTH TWICE DAILY [...] 2024 Discontinued(D ose adjustment) Continuous Glucose Sensor ([employer] G7 Sensor) miscIndications:T ype 2 diabetes mellitus without complication, without long-term current use of insulin (CMS/HCC) 1 Units Once per day AND 1 Units Once per day. Apply 1 sensor every 10 days. 3 each 10/11/192024 glipiZIDE XL (Glucotrol XL) 10 MG 24 hr tabletIndications :Type 2 diabetes mellitus without complication, without long-term current use of insulin ([facility]) Take 1 tablet (10 mg) by mouth Once per day. Do not crush, chew, or split. 30 tablet 11/15/192024 Discontinued(R eorder (will not trigger notification to Pharmacy)) Active Problems Problem Noted Date Diagnosed Date Recent urinary tract infection 11/26/2024 FB eye, left, initial encounter 11/12/2024 Assessment [...] Plan: Augmentin BID x 10 days Nasal Rudd Follow up if worsening or no improvement Generalized anxiety disorder with panic attacks 05/10/2024 Assessment & Plan (05/22/2024 1:00 PM EDT): Requested BH to see patient. Recommend f/up with PCP [...] intervention , Patient to reach out to [facility] team as needed, Patient to engage in OP therapy , and Patient to reach out to [facility] as needed Swelling of lip, tongue, and throat 05/10/2024 Assessment & Plan (05/22/2024 1:00 PM EDT): Patient reports episodes of swelling of exposure to different antigens, at this moment given recurrence and symptoms affecting patients daily, will strongly benefit of assessment from jowl trimmer to help elucidate etiology of symptoms. Peripheral [...] organization. Date Type Department Care Team Description 11/27/2024 Telephone [facility] [address] [place] [phone] Rolanda Thakur MD Call Back Request 11/26/2024 6:40 PM EDT Office Visit [facility] [address] [place] [phone] Ilsa Arana MD Recent urinary tract infection (Primary Dx) 11/26/2024 Travel 11/26/2024 Telephone [facility] [address] [place] [phone] Rolanda Thakur MD Nurse Triage 11/22/2024 Telephone [facility] [address] [place] [address] Rolanda Thakur MD 11/20/2024 Orders Only [facility] [address] [place] [address] Rolanda Thakur MD Type 2 diabetes mellitus without complication, without long-term current use of insulin ([facility]) (Primary Dx); UTI symptoms 11/19/2024 Telephone [facility] [address] [place] [phone] Rolanda Thakur MD FYI 11/19/[address] [address] Rolanda Thakur MD Nurse Triage 11/14/2024 4:00 PM EDT Office Visit [facility] [address] [place] [address] Rolanda Thakur MD Type 2 diabetes mellitus without complication, without long-term current use of insulin (CMS/HCC) (Primary Dx); Bronchitis 11/14/2024 Travel 11/12/2024 7:20 PM EDT Office Visit [facility] [address] [place] [phone] Ilsa Arana MD FB eye, left, initial encounter (Primary Dx) 11/12/2024 Travel 11/09/2024 Orders Only GENERIC EXTERNAL DATA DEPARTMENT Provider, Generic External Data 11/07/2024 Orders Only [address] [address] Rolanda Thakur MD Type 2 diabetes mellitus without complication, without long-term current use of insulin (CMS/HCC) (Primary Dx); Benign essential hypertension 11/06/[address] [address] Rolanda Thakur MD Appointment Request 10/31/[address] [address] Rolanda Thakur MD Call Back Request 10/31/[address] [address] Rolanda Thakur MD ; Call Back Request 10/31/[address] [address] Rolanda Thakur MD Nurse Triage 10/28/2024 Telephone [facility] [address] [place] [address] Rolanda Thakur MD 10/23/2024 Telephone [facility] [address] [place] [address] Apple Britton, Carleen 10/14/2024 Patient Outreach [facility] [address] [place] [address] Rolanda Thakur MD Care Coordination (CH[facility] outreach for SDOH-patient declined to participate ) 10/14/[address] [address] Rolanda Thakur MD 10/11/2024 3:45 PM EST Office Visit [facility] [address] [place] [address] Rolanda Thakur MD Type 2 diabetes mellitus without complication, without long-term current use of insulin (CMS/HCC) (Primary Dx); Generalized anxiety disorder with panic attacks; Financial difficulties; Meralgia paresthetica of right side 10/11/[address] [address] Rolanda Thakur MD FYI 10/11/2024 Travel 10/08/2024 Telephone [facility] [address] [place] [address] Rolanda Thakur MD Change PCP 10/08/2024 Orders Only [facility] [address] [place] [address] Rolanda Thakur MD Type 2 diabetes mellitus without complication, without long-term current use of insulin (CMS/HCC) (Primary Dx) 10/08/2024 Telephone [facility] [address] [place] [address] Rolanda Thakur MD 09/24/2024 Orders Only GENERIC EXTERNAL DATA DEPARTMENT Provider, Generic External Data 09/24/[address] [address] Rolanda Thakur MD Nurse Triage 09/23/2024 Telephone [facility] [address] [place] [address] Huong Heredia, MINOO 09/23/2024 Orders Only [facility] [address] [place] [address] Rolanda Thakur MD Acquired hypothyroidism (Primary Dx); Benign essential hypertension 09/18/2024 Refill [facility] [address], [place] [phone] Wyatt Huizar MD Neck pain on left side 09/17/2024 Refill [facility] [address] [place] [address] Rolanda Thakur MD Diabetic polyneuropathy associated with type 2 diabetes mellitus ([facility]/HCC) 09/15/2024 Refill [facility] [address] [place] [address] Rolanda Thakur MD 09/10/2024 3:45 PM EST Office Visit [facility] [address] [place] [address] Rolanda Thakur MD Type 2 diabetes mellitus without complication, without long-term current use of insulin ([facility]) (Primary Dx); Diabetic polyneuropathy associated with type 2 diabetes mellitus ([facility]/HCC); Spondylosis of cervical region without myelopathy or radiculopathy; Benign essential hypertension 09/10/2024 Travel 09/04/2024 Refill [facility] [address] [place] [address] Rolanda Thakur MD Anxiety; Benign essential hypertension from Last 3 Months Immunizations Name Administration [...] Pulse 56 11/14/2024 4:02 PM EDT Temperature 36.6 ??C (97.9 ??F) 11/26/2024 6:34 PM ED T Respiratory Rate 22 11/14/2024 4:02 PM EDT [...] long-term current use of insulin ([facility]) UTI symptoms CBC WITH AUTO DIFFERENTIAL Routine 11/23/2024 9:00 AM EDT Type 2 diabetes mellitus without complication, without long-term current use of insulin (CMS/HCC) BASIC METABOLIC PANEL Routine 11/23/2024 9:00 AM EDT Type 2 diabetes mellitus without complication, without long-term current use of insulin (CMS/HCC) POCT GLUCOSE Routine 11/14/2024 4:29 PM EDT Type 2 diabetes mellitus without complication, without long-term current use of insulin (CMS/HCC) BASIC METABOLIC PANEL Routine 11/09/2024 9:44 AM [...] long-term current use of insulin ([facility]) Decreased GFR ALBUMIN, RANDOM URINE W/CREATININE Routine 07/17/2024 2:55 PM EST Type 2 diabetes mellitus without complication, without long-term current use of insulin ([facility]) Decreased GFR POCT GLYCATED HEMOGLOBIN, TOTAL Routine 07/06/2024 9:32 AM EST Type 2 diabetes mellitus without complication, without long-term current use of insulin ([facility]) HM IFOBT Routine 01/03/2022 from Last 3 Months or Most Recently Relevant to Health Maintenance Results * Culture, Urine, Routine (11/23/2024 9:05 AM EDT) Urine Urine specimen obtained by clean catch procedure / Unknown 11/23/2024 9:05 AM EDT 11/23/2024 11:26 AM EDT Comment:[facility] Narrative [facility] - 11/24/2024 11:22 AM EDT Urine Culture Report Result Urine Culture 10,000 to 50,000 cfu/ml Urine Culture Mixed bacterial hailey characteristic of Urine Culture urogenital contamination. Specimen Source: Urine clean catch us Rolanda Thakur MD LAB MICROBIOLOGY - GENERAL ORDERABLES Final Result [facility] [address] [place] [phone] * (ABNORMAL) CBC auto differential (11/23/2024 9:00 AM EDT) Only the most recent of3 resultswithin the time period is included. White Blood Count 8.5 4.8 - 10.8 X10*3/uL [facility] Red Blood Count 4.27 4.20 - 5.50 X10*6/uL [facility] Hemoglobin 12.8 12.0 - 16.0 g/dl [facility] Hematocrit 37.0 37.0 - 47.0 % [facility] Mean Corpuscular Volume 86.7 80.0 - 98.0 fL [facility] Mean Corpuscular Hemoglobin 30.0 27.0 - 33.0 pg [facility] Mean Corpuscular HGB Conc 34.6 31.0 - 35.0 g/dl [facility] Red Cell Distribution Width 13.1 11.0 - 16.0 % [facility] Platelet Count 269 160 - 400 X10*3/uL [facility] Mean Platelet Volume 9.1(L) 9.4 - 12.3 fL [facility] Neutrophils Percent Auto 64.4 45 - 73 % [facility] Imm Gran Pct Auto 0.4 0.0 - 0.4 % [facility] Lymphocytes Percent Auto 23.8 20 - 40 % [facility] Monocytes Percent Auto 5.9 2 - 11 % [facility] Eosinophils Percent Auto 4.7(H) 0 - 4 % [facility] Basophils Percent Auto 0.8 0 - 2 % [facility] NRBC Pct Auto 0.0 0.0 - 0.2 /100WBC [facility] Neutrophils Absolute Auto 5.4 2.0 - 8.3 x10*3/uL [facility] Imm Gran Abs Auto 0.03 0.00 - 0.03 X10*3/uL [facility] Lymphocytes Absolute Auto 2.0 1.2 - 4.9 X10*3/uL [facility] Monocytes Absolute Auto 0.5 0.1 - 1.2 X10*3/uL [facility] Eosinophils Absolute Auto 0.4 0.0 - 0.4 X10*3/uL [facility] Basophils Absolute Auto 0.1 0.0 - 0.2 X10*3/uL [facility] NRBC Abs Auto 0.000 0.0 - 0.012 X10*3/uL [facility] Blood Venous blood specimen / Unknown 11/23/2024 9:00 AM EDT 11/23/2024 11:37 AM EDT Rolanda Thakur MD LAB BLOOD ORDERABLES Final Result Performing Organization Address [facility] Co de Phone Number [facility] [address] [place] [address] [phone] * (ABNORMAL) Basic Metabolic Panel (11/23/2024 9:00 AM EDT) Only the most recent of2 resultswithin the time period is included. Sodium 135 135 - 145 mmol/L [facility] Potassium 4.4 3.3 - 5.1 mmol/L [facility] Chloride 103 96 - 108 mmol/L [facility] Carbon Dioxide 24 22 - 29 mmol/L [facility] Anion Gap 12 12 - 20 [facility] Urea Nitrogen (BUN) 21(H) 9 - 16 mg/dL [facility] Creatinine, Serum 0.89 0.5 - 1.4 mg/dL [facility] Estimated Glomerular Filt Rate >60 [facility] Comment:Chronic Kidney Disea se: Estimated GFR < 60 mL/min/1.40l9Khvbhq Kidney Disease: Estimated GFR < 15 mL/min/1.73m2 Glucose 161(H) 60 - 115 mg/dL [facility] Calcium 10.2 8.4 - 10.2 mg/dL [facility] Blood Venous blood specimen / Unknown 11/23/2024 9:00 AM EDT 11/23/2024 11:37 AM EDT us Rolanda Thakur MD LAB BLOOD ORDERABLES Final Result Performing Organization Address [facility]/ZIP Co de Phone Number [facility] [address] [place] [address] [phone] * POCT Glucose (11/14/2024 4:29 PM EDT) Only the most recent of2 resultswithin the time period is included. Glucose Blood, POC 139 60 - 200 mg/dL Comment:[employer] Lot # [id number] Lot# Expiration Date [id number] Blood Capillary blood specimen / Unknown 11/14/2024 4:29 PM EDT us Rolanda Thakur MD POINT OF CARE TEST ENTER/ED IT ORDERABLES Final Result * (ABNORMAL) SARS-CoV-2 RNA, Influenza A/B, and RSV RNA, Ql NAAT (11/09/2024 9:08 AM EDT) Only the most recent of2 resultswithin the time period is included. Influenza A PCR NEGATIVE Negative [facility] Influenza B PCR NEGATIVE Negative [facility] Resp Syncy Virus RNA Qual PCR NEGATIVE Negative [facility] SARS COV2 PCR POSITIVE(A) Negative [facility] Comment:All test results mus t [...] use by authorized laboratories.Testing performed on the [employer] GeneXpert utilizingreal-time RT-PCR.All SARS CoV2 and positive influenza A/B results arereported to [facility]. 11/09/2024 9:08 AM EDT 11/09/2024 1:15 PM EDT us Generic External Data Provider LAB MICROBIOLOGY - GENERAL ORDERABLES Final Result [facility] [address] [place] [address] [phone] * (ABNORMAL) Basic Metabolic Panel, Fasting (09/24/2024 1:40 PM EST) Sodium 139 135 - 145 mmol/L [facility] Potassium 3.8 3.3 - 5.1 mmol/L [facility] Chloride 106 96 - 108 mmol/L [facility] Carbon Dioxide 22 22 - 29 mmol/L [facility] Anion Gap 15 12 - 20 [facility] Urea Nitrogen (BUN) 13 9 - 16 mg/dL [facility] Creatinine, Serum 0.94 0.5 - 1.4 mg/dL [facility] Estimated Glomerular Filt Rate 58 [facility] Comment:Chronic Kidney Disea se: Estimated GFR < 60 mL/min/1.40l9Nugehl Kidney Disease: Estimated GFR < 15 mL/min/1.73m2 Glucose Fasting 169(H) 60 - 99 mg/dL [facility] Comment:A fasting glucose of 126 mg/dl or greater on more than oneoccasion is considered diagnostic of diabetes. Calcium 9.9 8.4 - 10.2 mg/dL [facility] Blood Venous blood specimen / Unknown 09/24/2024 1:40 PM EST 09/24/2024 4:21 PM EST us Rolanda Thakur MD LAB BLOOD ORDERABLES Final Result Performing Organization Address City/[facility]/ZIP Co de Phone Number [facility] [address] [place] [address] [phone] * TSH W/Reflex to FT4 (09/24/2024 1:40 PM EST) TSH reflex Free T4 0.38 0.32 - 4.0 uIU/mL [facility] Blood Venous blood specimen / Unknown 09/24/2024 1:40 PM EST 09/24/2024 4:21 PM EST Rolanda Thakur MD LAB BLOOD ORDERABLES Final Result Performing Organization Address City/[facility]/ZIP Co de Phone Number [facility] [address] [place] [address] [phone] * Aldosterone/Plasma Renin Activity Ratio, LC/MS/MS (09/24/2024 1:40 PM EST) Pathologist [facility] Aldosterone 2 see note ng/dL [facility] Comment:Unable to flag abnor mal result(s), please refer to reference range(s) below:Adult Reference Ranges for Aldosterone, LC/MS/MS: Upright 8:00 - 10:00 am < or = 28 ng/dL Upright 4:00 - 6:00 pm < or = 21 ng/dL Supine 8:00 - 10:00 am 3 - 16 ng/dLTHIS TEST WAS PERFORMED AT:Managed by [employer] [id number] [place] [phone] PEDERSEN MD,PHD Plasma Renin Activity 0.52 0.25 - 5.82 ng/mL/h [facility] Aldosterone/Renin Ratio 3.8 0.9 - 28.9 Ratio [facility] Comment:This test was develo ped and its analytical performancecharacteristics have been determined by [employer] [place], [place]. It hasnot been cleared or approved by the U.S. Food and DrugAdministration. This assay has been validated pursuantto the CLIA regulations and is used for clinicalpurposes.THIS TEST WAS PERFORMED AT:Managed by [id number] [place] [phone] PEDERSEN MD,PHD Blood Venous blood specimen / Unknown 09/24/2024 1:40 PM EST 09/24/2024 4:21 PM EST us Rolanda Thakur MD LAB BLOOD ORDERABLES Final Result [facility] [address] [place] [phone] * Cologuard?? colon cancer screening (08/09/2024 8:30 AM EST) Pathologist [facility] Cologuard Result Negative Negative 08/18/20 24 11:52 PM EST [facility] (CLIA #:[id number]) Comment: NEGATIVE TEST RESULT. A negative Cologuard [...] cancer. ??Following a negative Cologuard result, the [place] [employer] and U.S. Multi-Society Task Force screening guidelines recommend a Cologuard re-screening interval of 3 years. References: [place] [employer] Guideline for Colorectal Cancer Screening: https://www.cancer.org/cancer/srqbx-qiqdcy-yyemki/ulwixocna-ejzfszblm-cnrnrib/ac s-rec ommendations.html.; Santiago DK, Ileana PERERA, Emery LalaK, Colorectal Cancer Screening: Recommendations for Physicians and Patients from the U.S. Multi-Society Task Force on Colorectal Cancer Screening , Am J Gastroenterology 2017; 112:7282-3431. TEST DESCRIPTION: Composite algorithmic analysis of stool [...] (Dioni Kelly al, N Engl J Med 2014;370(14):2355-2678.) Cologuard may produce a false negative or false positive result (no colorectal cancer or precancerous polyp present at colonoscopy follow up). A negative Cologuard test result does not guarantee the absence of CRC or advanced adenoma (pre-cancer). The current Cologuard screening interval is every 3 years. ([place] [employer] and U.S. Multi-Society Task Force). Cologuard performance data in a 10,000 patient pivotal study using colonoscopy as the reference method can be accessed at the following location: www.[employer]apt[employer].[place]oto/results. Additional description of the Cologuard test process, warnings and precautions can be found at www.cologuard.com. Stool specimen (specimen) 08/09/2024 8:30 AM EST 08/10/2024 2:47 PM EST us Rolanda hTakur MD LAB MOLECULAR DIAGNOSTICS O RDERABLES Final Result Performing Organization Address City/State/[facility] Co de Phone Number [facility] (CLIA #:[id number]) [address] [place] [address], * Hepatitis C Antibody with Reflex to HCV, RNA, Quantitative, Real-Time PCR (07/17/2024 3:20 PM EST) Hepatitis C Antibody Nonreactive Nonreactive [facility] Comment:Antibodies to HCV no t detected; does not exclude early acuteHCV infection. Blood Venous blood specimen / Unknown 07/17/2024 3:20 PM EST 07/17/2024 5:23 PM EST Rolanda Thakur MD LAB BLOOD ORDERABLES Final Result Performing Organization Address City/State/[facility] Co de Phone Number [facility] [address] [place] [address] [phone] * (ABNORMAL) Lipid Panel, Standard (07/17/2024 3:20 PM EST) Triglycerides 89 <150 mg/dL [facility] Comment:Desirable Triglyceri de: less than 150 mg/dLBorderline High Triglyceride 150-199 mg/dLHigh Triglyceride: 200-499 mg/dLVery High Triglyceride: greater than or equal to 5OO mg/dL Cholesterol 193 <200 mg/dL [facility] Comment:Desirable Cholestero l: less than 200 mg/dLBorderline High Cholesterol: 200-239 mg/dLHigh Cholesterol: greater than 239 mg/dL LDL Cholesterol Calculated 111(H) <100 mg/dL [facility] Comment:Desirable LDL: less than 100 mg/dLNear Optimal/Above Optimal LDL: 110- 129 mg/dLBorderline High LDL: 130-159 mg/dLHigh LDL: 160-189 mg/dLVery High LDL: greater than or equal to 190 mg/dL HDL Cholesterol 65 >40 mg/dL [facility] Comment:Desirable HDL: great er than 40 mg/dL Note: This HDL assay may give artificially low results in patients with liver disease. Blood Venous blood specimen / Unknown 07/17/2024 3:20 PM EST 07/17/2024 5:23 PM EST Rolanda Thakur MD LAB BLOOD ORDERABLES Final Result Performing Organization Address [facility] Co de Phone Number [facility] [address] [place] [address] [phone] * Albumin, Random Urine W/Creatinine (07/17/2024 2:55 PM EST) Creatinine, Urine 38.88 mg/dL [facility] Microalbumin Urine <5.0 mg/L [facility] Microalbum Creatinine Ratio Ur TNP <30 ug/mg cr [facility] Comment:Unable to calculate albumin/creatinine ratio due to lowmicroalbumin or creatinine result. Urine (Urine, Random) 07/17/2024 2:55 PM EST 07/17/2024 5:25 PM EST us Rolanda Thakur MD LAB URINE ORDERABLES Final Result [facility] [address] [place] [phone] * (ABNORMAL) POCT HGB A1C (07/06/2024 9:32 AM EST) Hemoglobin A1C 8.3(A) 4.0 - 6.0 % Blood 07/06/2024 9:32 AM EST us Edward Bach MD POINT OF CARE TEST ENTER/EDIT OR DERABLES Final Result * gFOBT (01/03/2022) Fecal Occult Blood 1 Negative Fecal Occult Blood 2 Negative Fecal Occult Blood 3 Negative 01/03/2022 Historical Provider POINT OF CARE TEST ENTER/ EDIT ORDERABLES Final Result from Last 3 Months or Most Recently Relevant to Health Maintenance Insurance [facility] MEDICARE REPLACEMENT [facility] MEDICARE ADVANTAGE HMO [address] [address] Care Teams Shoe Associate Relationship Specialty Start Date End Date Rolanda Thakur MD [address] [place], [place] [address] [id number] PCP - General Internal Medicine 09/19/22
--- OUTSIDE RECORDS SUMMARY | 2024-11-27 10:42 | XMS_ITS | Encounter Summary ---
Author Organization [employer] Address [address] [place] [address] 7 [place] [address] Care Team Providers Care Pet Store Merchandiser Name Role Phone Rolanda Thakur MD Primary Care Provider +1- [phone] Encounter Details Date Type Department Care Team ([facility] st Contact Info) Description 09/23/2024 Orders Only [facility] CHC MED & PEDS [address] [place] [address] Rolanda Thakur MD [address] [place] [address] Acquired hypothyroidism (Primary Dx); Benign essential hypertension [...] 3 - 16 ng/dLTHIS TEST WAS PERFORMED AT:[employer]/Wingz [id number] [place] [id number] PEDERSEN MD,PHD Plasma Renin Activity 0.52 0.25 - 5.82 ng/mL/h [facility] Aldosterone/Renin Ratio 3.8 0.9 - 28.9 Ratio [facility] Comment:This test was develo ped and its analytical performancecharacteristics have been determined by [employer] [place], [place]. It hasnot been cleared or approved by the U.S. Food and DrugAdministration. This assay has been validated pursuantto the CLIA regulations and is used for clinicalpurposes.THIS TEST WAS PERFORMED AT:[employer]/[id number] [place] [address]NNFSHQRTHEO PEDERSEN MD,PHD Blood Venous blood specimen / Unknown 09/24/2024 1:40 PM EST 09/24/2024 4:21 PM EST us Rolanda Thakur MD LAB BLOOD ORDERABLES Final Result [facility] [address] [place] [phone] * TSH W/Reflex to FT4 (09/24/2024 1:40 PM EST) TSH reflex Free T4 0.38 0.32 - 4.0 uIU/mL [facility] Blood Venous blood specimen / Unknown 09/24/2024 1:40 PM EST 09/24/2024 4:21 PM EST us Rolanda Thakur MD LAB BLOOD ORDERABLES Final Result Performing Organization Address [facility] Co de Phone Number [facility] [address] [place] [phone] * (ABNORMAL) Basic Metabolic Panel, Fasting (09/24/2024 1:40 PM EST) Sodium 139 135 - 145 mmol/L [facility] Potassium 3.8 3.3 - 5.1 mmol/L [facility] Chloride 106 96 - 108 mmol/L [facility] Carbon Dioxide 22 22 - 29 mmol/L [facility] Anion Gap 15 12 - 20 [facility] Urea Nitrogen (BUN) 13 9 - 16 mg/dL [facility] Creatinine, Serum 0.94 0.5 - 1.4 mg/dL [facility] Estimated Glomerular Filt Rate 58 [facility] Comment:Chronic Kidney Disea se: Estimated GFR < 60 mL/min/1.57f8Hsthpo Kidney Disease: Estimated GFR < 15 mL/min/1.73m2 Glucose Fasting 169(H) 60 - 99 mg/dL [facility] Comment:A fasting glucose of 126 mg/dl or greater on more than oneoccasion is considered diagnostic of diabetes. Calcium 9.9 8.4 - 10.2 mg/dL [facility] Blood Venous blood specimen / Unknown 09/24/2024 1:40 PM EST 09/24/2024 4:21 PM EST us Rolanda Thakur MD LAB BLOOD ORDERABLES Final Result Performing Organization Address [facility]/ZIP Co de Phone Number [facility] [address] [place] [phone] * (ABNORMAL) CBC auto differential (09/24/2024 1:40 PM EST) White Blood Count 7.0 4.8 - 10.8 X10*3/uL [facility] Red Blood Count 4.23 4.20 - 5.50 X10*6/uL [facility] Hemoglobin 12.6 12.0 - 16.0 g/dl [facility] Hematocrit 37.0 37.0 - 47.0 % [facility] Mean Corpuscular Volume 87.5 80.0 - 98.0 fL [facility] Mean Corpuscular Hemoglobin 29.8 27.0 - 33.0 pg [facility] Mean Corpuscular HGB Conc 34.1 31.0 - 35.0 g/dl [facility] Red Cell Distribution Width 12.8 11.0 - 16.0 % [facility] Platelet Count 251 160 - 400 X10*3/uL [facility] Mean Platelet Volume 9.5 9.4 - 12.3 fL [facility] Neutrophils Percent Auto 59.8 45 - 73 % [facility] Imm Gran Pct Auto 0.3 0.0 - 0.4 % [facility] Lymphocytes Percent Auto 26.1 20 - 40 % [facility] Monocytes Percent Auto 8.6 2 - 11 % [facility] Eosinophils Percent Auto 4.3(H) 0 - 4 % [facility] Basophils Percent Auto 0.9 0 - 2 % [facility] NRBC Pct Auto 0.0 0.0 - 0.2 /100WBC [facility] Neutrophils Absolute Auto 4.2 2.0 - 8.3 x10*3/uL [facility] Imm Gran Abs Auto 0.02 0.00 - 0.03 X10*3/uL [facility] Lymphocytes Absolute Auto 1.8 1.2 - 4.9 X10*3/uL [facility] Monocytes Absolute Auto 0.6 0.1 - 1.2 X10*3/uL [facility] Eosinophils Absolute Auto 0.3 0.0 - 0.4 X10*3/uL [facility] Basophils Absolute Auto 0.1 0.0 - 0.2 X10*3/uL [facility] NRBC Abs Auto 0.000 0.0 - 0.012 X10*3/uL [facility] Blood Venous blood specimen / Unknown 09/24/2024 1:40 PM EST 09/24/2024 4:21 PM EST Rolanda Thakur MD LAB BLOOD ORDERABLES Final Result [facility] [address] [place] [phone] documented in this encounter Visit Diagnoses Diagnosis Acquired hypothyroidism- Primary Unspecified hypothyroidism Benign essential hypertension Essential hypertension, benign documented in this encounter Additional Health Concerns Assessment Noted Time PHQ-9 Depression Total Score: 2 05/13/20 24 9:24 AM EDT documented as of this encounter Care Teams Pet Store Merchandiser Relationship Specialty Start Date End Date Rolanda Thakur MD [address] [place] [phone] PCP - General Internal Medicine 09/19/22 documented as of this encounter
--- OUTSIDE RECORDS SUMMARY | 2024-11-27 10:42 | XMS_ITS | Encounter Summary ---
Author Organization [employer] Address [address] [facility] 7 [place] [address] Care Team Providers Care Clinical Application Manager Name Role Phone Rolanda Thakur MD Primary Care Provider +1- [phone] Encounter Details Date Type Department Care Team ([facility] Contact Info) Description 10/08/2024 Telephone [facility] CHC MED & PEDS [address] [place] [address] Rolanda Thakur MD [address] [place] [address] Social History Tobacco Use Types Packs/Day Years [...] as of this encounter Care Teams Clinical Application Manager Relationship Specialty Start Date End Date Rolanda Thakur MD [address] [place] [phone] PCP - General Internal Medicine 09/19/22 documented as of this encounter
--- OUTSIDE RECORDS SUMMARY | 2024-11-27 10:42 | XMS_ITS | Encounter Summary ---
Author Organization [employer] Address [address] [place] [address] Care Team Providers Care Systems Test Engineer Name Role Phone Rolanda Thakur MD Primary Care Provider +1- [phone] Encounter Details Date Type Department Care Team ([facility] st Contact Info) Description 12/28/2023 Orders Only [facility] CHC MED & PEDS [address] [place], [place] [phone] Rolanda Thakur MD [address] [place] [address] Social History Tobacco Use Types Packs/Day Years [...] on filedocumented in this encounter Care Teams Systems Test Engineer Relationship Specialty Start Date End Date Rolanda Thakur MD [address] [place] [address] PCP - General Internal Medicine 09/19/22 documented as of this encounter
--- OUTSIDE RECORDS SUMMARY | 2024-11-27 10:42 | XMS_ITS | Encounter Summary ---
Author Organization [employer] Address [address] [place] [address] [place] [address] Care Team Providers Care Filler Wiper Name Role Phone Rolanda Thakur MD Primary Care Provider +1- [phone] Encounter Details Date Type Department Care Team (Late st Contact Info) Description 12/07/2023 Telephone [facility] MEDICINE [address] [place] [address] [phone] Rolanda Thakur MD 505 [place] [address] Social History Tobacco Use Types Packs/Day Years [...] on filedocumented in this encounter Care Teams Filler Wiper Relationship Specialty Start Date End Date Rolanda Thakur MD [address] [place] [address] PCP - General Internal Medicine 09/19/22 documented as of this encounter
--- OUTSIDE RECORDS SUMMARY | 2024-11-27 10:42 | XMS_ITS | Encounter Summary ---
Author Organization [employer] Address 75 [facility] 7 [place] [address] Care Team Providers Care Account Development Manager Name Role Phone Rolanda Thakur MD Primary Care Provider +1- [phone] Reason for Visit * Reason Onset Date Comments Nurse Triage 09/24/2024 Encounter Details Date Type Department Care Team (Late st Contact Info) Description 09/24/2024 Telephone [facility] MEDICINE [address] [place] [address] Rolanda Thakur MD 505 [place] [address] Nurse Triage Social History Tobacco Use Types [...] WIC for today as no appts in [facility]. Pt states gets panic attacks if has to wait . Pt advised unfortunately no appts in [facility]> Unable to schedule ahead for WIC. Pt states will seek [facility] IN clinic on [facility] [facility] in [place]. Will send to team as FYI to [...] acuity questions The caller accepted this outcome. [phone] documented in this encounter Plan of Treatment Not on file documented as of this encounter Visit Diagnoses Not on filedocumented in this encounter Additional Health Concerns Assessment Noted Time PHQ-9 Depression Total Score: 2 05/13/20 24 9:24 AM EDT documented as of this encounter Care Teams Account Development Manager Relationship Specialty Start Date End Date Rolanda Thakur MD [address] [place] [phone] PCP - General Internal Medicine 09/19/22 documented as of this encounter
[2024-11-27 15:05] LABS: Appearance Urine Clear; Color Urine Yellow; Glucose Urine UA Negative (Negative); Leukocyte Esterase Urine Trace (Negative); Nitrite Urine Negative (Negative); PH 5.5 (5.0-9.0); UMIC TRIGGER UA YES; Urine Blood Negative (Negative); Urine Ketones Negative (Negative); Urine Protein Negative (Neg-Trace)
[2024-11-27 15:11] LABS: Bacteria Urine None Seen (None Seen); RBC Urine 0-2 /HPF (0-2); Squamous Epithelial Cell Urine 0-2 /HPF (0-2); WBC Urine 0-5 /HPF (0-5)
== END 2024-11-27 09:46 | disposition home or self-care (01) ==
LOC: HO.CHCLDS 09:45
PROVIDERS: Visit Provider Family Medicine
DX: R39.9 Unspecified symptoms and signs involving the genitourinary system (principal)
CPT/HCPCS: 81001; 87086

== ENCOUNTER 2024-12-13 07:59 | Outpatient (AMB) | payer MEDICARE, SELFPAY ==
--- OUTSIDE RECORDS SUMMARY | 2024-12-13 08:01 | XMS_ITS | Encounter Summary ---
Author Organization [employer] Address [address] [place] [address] [place] [address] Care Team Providers Care Lead Radiologic Technologist Name Role Phone Rolanda Thakur MD Primary Care Provider +1- [phone] Reason for Referral * Imaging (Routine) - Closed Specialty Diagnoses / Procedures Referred By Contac t Referred To Contact Radiology Diagnoses Hyponatremia Decreased GFR Procedures US RENAL BI Rolanda Thakur MD 505 [place] [address] Phone: tel: fax: [address] Phone: tel: fax: Referral ID Status Reason Start Date Expiration Date Visits Re quested Visits Authorized [id number] Closed 07/18/2024 07/18/2025 1 0 Encounter Details Date Type Department Care Team (Late st Contact Info) Description 07/09/2024 Orders Only [facility] CHC MED & PEDS [address] [place], [place] [phone] Rolanda Thakur MD [address] [place] [address] Hyponatremia (Primary Dx); Decreased GFR Social History [...] documented as of this encounter Care Teams Lead Radiologic Technologist Relationship Specialty Start Date End Date Rolanda Thakur MD [address] [place] [address] PCP - General Internal Medicine 09/19/22 documented as of this encounter
--- OUTSIDE RECORDS SUMMARY | 2024-12-13 08:01 | XMS_ITS | Encounter Summary ---
Author Organization [employer] Address [address] [place] [address] Care Team Providers Care Want Ad Supervisor Name Role Phone Rolanda Thakur MD Primary Care Provider +1- [phone] Reason for Visit * Reason Onset Date Comments Medication Question 11/27/2024 Encounter Details Date Type Department Care Team (Late st Contact Info) Description 11/27/[address] [facility] [address] [place] [address] Rolanda Thakur MD 505 [place], [place] [phone] Medication Question Social History Tobacco Use Types [...] * Telephone Encounter - Be Ventura - 11/27/2024 3:55 PM EDT Tc from pt stating that she went to a walk in to get a test to see if she had a UTI and her resultscame back abnormal and she would like a call back to discuss the next steps. She would like to see if its possible to get a Antibiotic so that she doesn't have to keep going through what is going on. Contact [phone] documented in this encounter Plan of Treatment Not on file documented as of this encounter Visit Diagnoses Not on filedocumented in this encounter Additional Health Concerns Assessment Noted Time PHQ-9 Depression Total Score: 2 05/13/20 24 9:24 AM EDT documented as of this encounter Care Teams Want Ad Supervisor Relationship Specialty Start Date End Date Rolanda Thakur MD [address] [place] [address] PCP - General Internal Medicine 09/19/22 documented as of this encounter
--- OUTSIDE RECORDS SUMMARY | 2024-12-13 08:01 | XMS_ITS | Encounter Summary ---
Author Organization [employer] Address 75 [facility] 7 [place] [address] Care Team Providers Care Film Library Clerk Name Role Phone Rolanda Thakur MD Primary Care Provider +1- [phone] Reason for Visit * Reason Onset Date Comments Medication Question 12/10/2024 Med Refill 12/10/2024 Encounter Details Date Type Department Care Team (Late st Contact Info) Description 12/10/2024 Telephone [facility] 230 [place] [address] Rolanda Thakur MD 505 [place], [place] [phone] Medication Question; Med Refill Social History Tobacco Use Types [...] encounter Miscellaneous Notes * Telephone Encounter - Bianca Jenkins LPN - 12/12/2024 12:20 PM EDT Pa was generated and scan * Telephone Encounter - Ilsa Boyd RN - 12/10/2024 3:53 PM EDT TC to pharmacy. Pharmacy verified that pt needs new PA for refill. * Telephone Encounter - Be Ventura - 12/10/2024 9:00 AM EDT Tc from Pt requesting a PA for Med Continuous Glucose Sensor ([employer]excom G7 Sensor) misc. Contact Pt at [phone] documented in this encounter Plan of Treatment Not on file documented as of this encounter Visit Diagnoses Not on filedocumented in this encounter Additional Health Concerns Assessment Noted Time PHQ-9 Depression Total Score: 2 05/13/20 24 9:24 AM EDT documented as of this encounter Care Teams Film Library Clerk Relationship Specialty Start Date End Date Rolanda Thakur MD [address] [place] [address] PCP - General Internal Medicine 09/19/22 documented as of this encounter
--- OUTSIDE RECORDS SUMMARY | 2024-12-13 08:01 | XMS_ITS | Encounter Summary ---
Author Organization [employer] Address [address] [place] [address] [place] [address] Care Team Providers Care Delineator Name Role Phone Rolanda Thakur MD Primary Care Provider Encounter Details Date Type Department Care Team ([facility] st Contact Info) Description 05/16/2023 Orders Only [facility] CHC MED & PEDS 505 [place] [address] Rolanda Thakur MD 505 [place] [address] Bilateral leg paresthesia (Primary Dx); Anxiety; Diabetic [...] Vitamin B6 (10/10/2023 12:50 PM EST) Pathologist [facility] Vitamin B6 16.0 2.1 - 21.7 ng/mL [facility] Comment:Vitamin supplementat ion within 24 hours prior toblood draw may affect the accuracy of the results.This test was developed and its analytical performancecharacteristics have been determined by [employer] [place], [place]. It hasnot been cleared or approved by the U.S. Food and DrugAdministration. This assay has been validated pursuantto the CLIA regulations and is used for clinicalpurposes.THIS TEST WAS PERFORMED AT:[place]/[facility] [place] [address]NGEEOCKTHEO PEDERSEN MD,PHD Blood Venous blood specimen / Unknown 10/10/2023 12:50 PM EST 10/10/2023 2:41 PM EST us Rolanda Thakur MD LAB BLOOD ORDERABLES Final Result [facility] [address] [place] [address] [phone] * (ABNORMAL) Vitamin B12 (10/10/2023 12:50 PM EST) Vitamin B12 1,388(H) 200 - 900 pg/mL [facility] Comment:NORMAL 200-900 PG/ML INDETERMINATE 160-199 PG/ML DEFICIENT < 160 PG/ML Blood Venous blood specimen / Unknown 10/10/2023 12:50 PM EST 10/10/2023 2:41 PM EST Rolanda Thakur MD LAB BLOOD ORDERABLES Final Result Performing Organization Address City/[facility]/ZIP Co de Phone Number [facility] [address] [place] [address] [phone] * TSH W/Reflex to FT4 (10/10/2023 12:50 PM EST) Pathologist [facility] TSH reflex Free T4 0.35 0.32 - 4.0 uIU/mL [facility] Blood 10/10/2023 12:5 0 PM EST 10/10/2023 2:41 PM EST us Rolanda Thakur MD LAB BLOOD ORDERABLES Final Result Performing Organization Address City/[facility]/ZIP Co de Phone Number [facility] [address] [place] [phone] * (ABNORMAL) CBC auto differential (10/10/2023 12:50 PM EST) White Blood Count 8.0 4.8 - 10.8 X10*3/uL [facility] Red Blood Count 4.19(L) 4.20 - 5.50 X10*6/uL [facility] Hemoglobin 12.3 12.0 - 16.0 g/dl [facility] Hematocrit 36.6(L) 37.0 - 47.0 % [facility] Mean Corpuscular Volume 87.4 80.0 - 98.0 fL [facility] Mean Corpuscular Hemoglobin 29.4 27.0 - 33.0 pg [facility] Mean Corpuscular HGB Conc 33.6 31.0 - 35.0 g/dl [facility] Red Cell Distribution Width 12.8 11.0 - 16.0 % [facility] Platelet Count 252 160 - 400 X10*3/uL [facility] Mean Platelet Volume 9.5 9.4 - 12.3 fL [facility] Neutrophils Percent Auto 55.5 45 - 73 % [facility] Imm Gran Pct Auto 0.4 0.0 - 0.4 % [facility] Lymphocytes Percent Auto 31.3 20 - 40 % [facility] Monocytes Percent Auto 6.0 2 - 11 % [facility] Eosinophils Percent Auto 5.9(H) 0 - 4 % [facility] Basophils Percent Auto 0.9 0 - 2 % [facility] NRBC Pct Auto 0.0 0.0 - 0.2 /100WBC [facility] Neutrophils Absolute Auto 4.5 2.0 - 8.3 x10*3/uL [facility] Imm Gran Abs Auto 0.03 0.00 - 0.03 X10*3/uL [facility] Lymphocytes Absolute Auto 2.5 1.2 - 4.9 X10*3/uL [facility] Monocytes Absolute Auto 0.5 0.1 - 1.2 X10*3/uL [facility] Eosinophils Absolute Auto 0.5(H) 0.0 - 0.4 X10*3/uL [facility] Basophils Absolute Auto 0.1 0.0 - 0.2 X10*3/uL [facility] NRBC Abs Auto 0.000 0.0 - 0.012 X10*3/uL [facility] Blood Venous blood specimen / Unknown 10/10/2023 12:50 PM EST 10/10/2023 2:41 PM EST us Rolanda Thakur MD LAB BLOOD ORDERABLES Final Result [facility] [address] [place] [address] [phone] documented in this encounter Visit Diagnoses Diagnosis Bilateral leg paresthesia- Primary Disturbance of skin sensation Anxiety Anxiety state, unspecified Diabetic polyneuropathy associated with type 2 diabetes mellitus ([facility]) documented in this encounter Care Teams Delineator Relationship Specialty Start Date End Date Rolanda Thakur MD [address] [place] [address] PCP - General Internal Medicine 09/19/22 documented as of this encounter
--- OUTSIDE RECORDS SUMMARY | 2024-12-13 08:01 | XMS_ITS | Encounter Summary ---
Author Organization [employer] Address [address] [place] [address] 7 [place] [address] Care Team Providers Care Weaver Dobby Loom Name Role Phone Rolanda Thakur MD Primary Care Provider +1- [phone] Reason for Visit * Reason Comments Med Refill Encounter Details Date Type Department Care Team (Late st Contact Info) Description 12/28/2022 Refill [facility] CHC MED & PEDS 505 [place] [address] Maren Hough MD [address] [place] [address] Type 2 diabetes mellitus without complication, without long-term current use of insulin ([facility]); Anxiety Social History Tobacco Use [...] insulin ([facility]) Anxiety Anxiety state, unspecified documented in this encounter Care Teams Weaver Dobby Loom Relationship Specialty Start Date End Date Rolanda Thakur MD [address] [place] [address] PCP - General Internal Medicine 09/19/22 documented as of this encounter
--- OUTSIDE RECORDS SUMMARY | 2024-12-13 08:01 | XMS_ITS | Encounter Summary ---
Author Organization [employer] Address 75 [facility] 7 [place] [address] Care Team Providers Care Yarn Dry Room Worker Name Role Phone Rolanda Thakur MD Primary Care Provider +1- [phone] Encounter Details Date Type Department Care Team ([facility] Contact Info) Description 12/02/2024 Telephone [facility] CHC MED & PEDS 505 [place] [address] Rolanda Thakur MD 505 [place] [address] Social History Tobacco Use Types Packs/Day Years [...] encounter Miscellaneous Notes * Telephone Encounter - Annabella Peña - 12/02/2024 4:37 PM EDT Tc from pt stating she received a call regarding forms. Pt requesting a call back. If no answer pt requesting a detailed voicemail documented in this encounter Plan of Treatment Not on file documented as of this encounter Visit Diagnoses Not on filedocumented in this encounter Additional Health Concerns Assessment Noted Time PHQ-9 Depression Total Score: 2 05/13/20 24 9:24 AM EDT documented as of this encounter Care Teams Yarn Dry Room Worker Relationship Specialty Start Date End Date Rolanda Thakur MD [address] [place] [phone] PCP - General Internal Medicine 09/19/22 documented as of this encounter
--- OUTSIDE RECORDS SUMMARY | 2024-12-13 08:01 | XMS_ITS | Encounter Summary ---
Author Organization [employer] Address [address] [place] [address] Care Team Providers Care Chef Instructor Name Role Phone Rolanda Thakur MD Primary Care Provider +1- [phone] Reason for Visit * Reason Onset Date Comments Call Back Request 11/27/2024 Encounter Details Date Type Department Care Team ([facility] st Contact Info) Description 11/27/2024 Telephone [facility] [address] [place] [address] Rolanda Thakur MD 505 [place] [address] Call Back Request Social History Tobacco Use [...] documented as of this encounter Care Teams Chef Instructor Relationship Specialty Start Date End Date Rolanda Thakur MD [address] [place] [address] PCP - General Internal Medicine 09/19/22 documented as of this encounter
--- OUTSIDE RECORDS SUMMARY | 2024-12-13 08:01 | XMS_ITS | Encounter Summary ---
Author Organization [employer] Address [address] [place] [address] [place] [address] Care Team Providers Care Row Boss Hoeing Name Role Phone Rolanda Thakur MD Primary Care Provider +1- [phone] Reason for Visit * Reason Onset Date Comments Referral 07/31/2024 Encounter Details Date Type Department Care Team ([facility] Contact Info) Description 07/31/2024 Telephone [facility] CHC MED & PEDS [address] [place] [address] Rolanda Thakur MD 505 [place] [address] Referral Social History Tobacco Use Types Packs/Day [...] Hirsch. [facility]eraal was [facility] documented in this encounter Plan of Treatment Not on file documented as of this encounter Visit Diagnoses Not on filedocumented in this encounter Additional Health Concerns Assessment Noted Time PHQ-9 Depression Total Score: 2 05/13/20 24 9:24 AM EDT documented as of this encounter Care Teams Row Boss Hoeing Relationship Specialty Start Date End Date Rolanda Thakur MD [address] [place] [address] PCP - General Internal Medicine 09/19/22 documented as of this encounter
--- OUTSIDE RECORDS SUMMARY | 2024-12-13 08:01 | XMS_ITS | Encounter Summary ---
Author Organization [employer] Address [address] [place] [address] Care Team Providers Care Certified Personal Chef Name Role Phone Rolanda Thakur MD Primary Care Provider +1- [phone] Reason for Visit * Reason Onset Date Comments Nurse Triage 08/05/2024 Encounter Details Date Type Department Care Team ([facility] st Contact Info) Description 08/05/2024 Telephone [facility] MED[facility]INE [address] [place] [address] Rolanda Thakur MD 505 [place] [address] Nurse Triage Social History Tobacco Use Types [...] 1145am. Pt is advised to come to [facility] today which is open till 8pm and also open 830am -800pm tomorrow. Pt agrees with this disposition. Pt will [facility] come [facility] today[facility], if unable will come tomorrow. [...] documented as of this encounter Care Teams Certified Personal Chef Relationship Specialty Start Date End Date Rolanda Thakur MD [address] [place] [address] PCP - General Internal Medicine 09/19/22 documented as of this encounter
--- OUTSIDE RECORDS SUMMARY | 2024-12-13 08:01 | XMS_ITS | Encounter Summary ---
Author Organization [employer] Address [address] [place] [address] 7 [place] [address] Care Team Providers Care Field Crop Technical Officer Name Role Phone Rolanda Thakur MD Primary Care Provider [phone]- [phone] Encounter Details Date Type Department Care Team (Late st Contact Info) Description 06/21/2023 Abstract [facility] MEDICINE [address] [place] [address] Sherrie Caballero Social History Tobacco Use Types [...] filedocumented in this encounter Care Teams Field Crop Technical Officer Relationship Specialty Start Date End Date Rolanda Thakur MD [address] [place] [address] PCP - General Internal Medicine 09/19/22 documented as of this encounter
--- OUTSIDE RECORDS SUMMARY | 2024-12-13 08:01 | XMS_ITS | Encounter Summary ---
Author Organization [employer] Address [address] [place] [address] [place] [address] Care Team Providers Care Landfill Gas Collection System Operator Name Role Phone Rolanda Thakur MD Primary Care Provider +1- [phone] Encounter Details Date Type Department Care Team ([facility] st Contact Info) Description 05/22/2024 Orders Only [facility] CHC MED & PEDS [address] [place] [address] Rolanda Thakur MD 505 [place] [address] Social History Tobacco Use Types Packs/Day Years [...] documented as of this encounter Care Teams Landfill Gas Collection System Operator Relationship Specialty Start Date End Date Rolanda Thakur MD [address] [place] [address] PCP - General Internal Medicine 09/19/22 documented as of this encounter
--- OUTSIDE RECORDS SUMMARY | 2024-12-13 08:01 | XMS_ITS | Encounter Summary ---
Author Organization [employer] Address [address] [place] [address] [place] [address] Care Team Providers Care Safety Pin Assembling Machine Operator Name Role Phone Rolanda Thakur MD Primary Care Provider Encounter Details Date Type Department Care Team ([facility] st Contact Info) Description 05/01/2023 Orders Only [facility] CHC MED & PEDS [address] [place] [address] Rolanda Thakur MD [address] [place] [address] Diabetic polyneuropathy associated with type 2 diabetes [...] type 2 diabetes mellitus ([facility]/HCC) TSH W/REFLEX TO FT4 Routine 05/08/2023 1 1:04 AM EDT Diabetic polyneuropathy associated with type 2 diabetes mellitus ([facility]/HCC) CBC WITH AUTO DIFFERENTIAL Routine 05/08/2023 11:04 AM EDT Diabetic polyneuropathy associated with type 2 diabetes mellitus ([facility]/HCC) HEMOGLOBIN A1C Routine 05/08/2023 11:04 AM EDT Diabetic polyneuropathy associated with type 2 diabetes mellitus ([facility]/HCC) HEPATIC FUNCTION PANEL Routine 05/08/2023 11:04 AM EDT Diabetic polyneuropathy associated with type 2 diabetes mellitus ([facility]/HCC) LIPID PANEL, STANDARD Routine 05/08/2023 11:04 AM EDT Diabetic polyneuropathy associated with type 2 diabetes mellitus ([facility]/HCC) BASIC METABOLIC PANEL Routine 05/08/2023 11:04 AM EDT Diabetic polyneuropathy associated with type 2 diabetes mellitus ([facility]/HCC) documented in this encounter Results * (ABNORMAL) Hemoglobin A1c (05/08/2023 11:04 AM EDT) Hemoglobin A1c 6.1(H) <6.0 % [facility] Comment:Hemoglobin A1C Refer ence Range Adults: 4.8 - 6.0 % Non diabetic: < 6.0 % Goal: < 7.0 %Additional Action Suggested: > 8.0 %Note: Hemoglobin A1c results are invalid for patients with abnormal amounts of HbF. Blood transfusions may impact the HbA1c concentration in the patient sample. Estimated Average Glucose 128 mg/dL [facility] Comment:eAG = Estimated ave rage glucose which is %A1C expressed asaverage glucose, using the formula of the D2N-KzycbqmBljzska Glucose study (ADAG), Diabetes Care, Vol.31,#8,Mar. 2007 Blood Venous blood specimen / Unknown 05/08/2023 11:04 AM EDT 05/08/2023 1:46 PM EDT us Rolanda Thakur MD LAB BLOOD ORDERABLES Final Result Performing Organization Address City/[facility]/ZIP Co de Phone Number [facility] [address] [place] [phone] * Vitamin D, 25-Hydroxy, Total, Immunoassay (05/08/2023 11:04 AM EDT) Vitamin D 25-OH Total 84.6 >30 ng/mL [facility] Comment:Health Based Referen ce Values*< 20 ng/mL [id number] ng/mL Insufficient> 30 ng/mL Sufficient*Arabella MCALLISTER. N [...] BLOOD ORDERABLES Final Result Performing Organization Address [facility] Co de Phone Number [facility] [address] [place] [phone] * Hepatic Function Panel (05/08/2023 11:04 AM EDT) Bilirubin, Total 0.5 0.0 - 1.0 mg/dL [facility] Bilirubin, Direct 0.2 0.0 - 0.5 mg/dL [facility] Aspartate Amino Transferase 22 5 - 31 U/L [facility] Alanine Aminotransferase 18 0 - 31 U/L [facility] Total Protein 7.1 6.5 - 8.0 g/dL [facility] Albumin Level 4.4 3.5 - 5.0 g/dL [facility] Alkaline Phosphatase 70 39 - 117 U/L [facility] Blood Venous blood specimen / Unknown 05/08/2023 11:04 AM EDT 05/08/2023 1:47 PM EDT us Rolanda Thakur MD LAB BLOOD ORDERABLES Final Result [facility] [address] [place] [phone] [phone] * (ABNORMAL) Lipid Panel, Standard (05/08/2023 11:04 AM EDT) Triglycerides 110 <150 mg/dL [facility] Comment:Desirable Triglyceri de: less than 150 mg/dLBorderline High Triglyceride 150-199 mg/dLHigh Triglyceride: 200-499 mg/dLVery High Triglyceride: greater than or equal to 5OO mg/dL Cholesterol 198 <200 mg/dL [facility] Comment:Desirable Cholestero l: less than 200 mg/dLBorderline High Cholesterol: 200-239 mg/dLHigh Cholesterol: greater than 239 mg/dL LDL Cholesterol Calculated 121(H) <100 mg/dL [facility] Comment:Desirable LDL: less than 100 mg/dLNear Optimal/Above Optimal LDL: 110- 129 mg/dLBorderline High LDL: 130-159 mg/dLHigh LDL: 160-189 mg/dLVery High LDL: greater than or equal to 190 mg/dL HDL Cholesterol 55 >40 mg/dL [facility] Comment:Desirable HDL: great er than 40 mg/dL Note: This HDL assay may give artificially low results in patients with liver disease. Blood Venous blood specimen / Unknown 05/08/2023 11:04 AM EDT 05/08/2023 1:47 PM EDT us Rolanda Thakur MD LAB BLOOD ORDERABLES Final Result Performing Organization Address [facility]/ZIP Co de Phone Number [facility] [address] [place] [phone] * TSH W/Reflex to FT4 (05/08/2023 11:04 AM EDT) TSH reflex Free T4 0.53 0.32 - 4.0 uIU/mL [facility] Blood 05/08/2023 11:0 4 AM EDT 05/08/2023 1:47 PM EDT us Rolanda Thakur MD LAB BLOOD ORDERABLES Final Result Performing Organization Address [facility]/ZIP Co de Phone Number [facility] [address] [place] [phone] * (ABNORMAL) Basic Metabolic Panel (05/08/2023 11:04 AM EDT) Sodium 137 135 - 145 mmol/L [facility] Potassium 4.4 3.3 - 5.1 mmol/L [facility] Chloride 108 96 - 108 mmol/L [facility] Carbon Dioxide 24 22 - 29 mmol/L [facility] Anion Gap 9(L) 12 - 20 [facility] Urea Nitrogen (BUN) 14 9 - 16 mg/dL [facility] Creatinine, Serum 1.03 0.5 - 1.4 mg/dL [facility] Estimated Glomerular Filt Rate 53 [facility] Comment:NOTE: For -Am erican individuals, multiply the result by 1.210.Chronic Kidney Disease: Estimated GFR < 60 mL/min/1.35p1Clyzus Kidney Disease: Estimated GFR < 15 mL/min/1.73m2 Glucose 208(H) 60 - 115 mg/dL [facility] Calcium 10.1 8.4 - 10.2 mg/dL [facility] Blood Venous blood specimen / Unknown 05/08/2023 11:04 AM EDT 05/08/2023 1:47 PM EDT us Rolanda Thakur MD LAB BLOOD ORDERABLES Final Result [facility] [address] [place] [phone] * (ABNORMAL) CBC auto differential (05/08/2023 11:04 AM EDT) White Blood Count 8.6 4.8 - 10.8 X10*3/uL [facility] Red Blood Count 4.27 4.20 - 5.50 X10*6/uL [facility] Hemoglobin 12.6 12.0 - 16.0 g/dl [facility] Hematocrit 37.9 37.0 - 47.0 % [facility] Mean Corpuscular Volume 88.8 80.0 - 98.0 fL [facility] Mean Corpuscular Hemoglobin 29.5 27.0 - 33.0 pg [facility] Mean Corpuscular HGB Conc 33.2 31.0 - 35.0 g/dl [facility] Red Cell Distribution Width 13.0 11.0 - 16.0 % [facility] Platelet Count 266 160 - 400 X10*3/uL [facility] Mean Platelet Volume 9.5 9.4 - 12.3 fL [facility] Neutrophils Percent Auto 50.3 45 - 73 % [facility] Imm Gran Pct Auto 0.3 0.0 - 0.4 % [facility] Lymphocytes Percent Auto 33.4 20 - 40 % [facility] Monocytes Percent Auto 7.0 2 - 11 % [facility] Eosinophils Percent Auto 7.8(H) 0 - 4 % [facility] Basophils Percent Auto 1.2 0 - 2 % [facility] NRBC Pct Auto 0.0 0.0 - 0.2 /100WBC [facility] Neutrophils Absolute Auto 4.3 2.0 - 8.3 x10*3/uL [facility] Imm Gran Abs Auto 0.03 0.00 - 0.03 X10*3/uL [facility] Lymphocytes Absolute Auto 2.9 1.2 - 4.9 X10*3/uL [facility] Monocytes Absolute Auto 0.6 0.1 - 1.2 X10*3/uL [facility] Eosinophils Absolute Auto 0.7(H) 0.0 - 0.4 X10*3/uL [facility] Basophils Absolute Auto 0.1 0.0 - 0.2 X10*3/uL [facility] NRBC Abs Auto 0.000 0.0 - 0.012 X10*3/uL [facility] Blood Venous blood specimen / Unknown 05/08/2023 11:04 AM EDT 05/08/2023 1:46 PM EDT Rolanda Thakur MD LAB BLOOD ORDERABLES Final Result [facility] [address] [place] [phone] documented in this encounter Visit Diagnoses Diagnosis Diabetic polyneuropathy associated with type 2 diabetes mellitus (CMS/HCC)- Primary documented in this encounter Care Teams Safety Pin Assembling Machine Operator Relationship Specialty Start Date End Date Rolanda Thakur MD [address] [place] [phone] PCP - General Internal Medicine 09/19/22 documented as of this encounter
--- OUTSIDE RECORDS SUMMARY | 2024-12-13 08:01 | XMS_ITS | Encounter Summary ---
Author Organization [email or web address] Address [address] [place] [address] Care Team Providers Care Plant Production Manager Name Role Phone Rolanda Thakur MD Primary Care Provider +1- [phone] Reason for Referral * Consultation (Routine) - Authorized Specialty Diagnoses / Procedures Referred By Contac t Referred To Contact Endocrinology Diagnoses Type 2 diabetes mellitus without complication, without long-term current use of insulin (CMS/HCC) Benign essential hypertension Rolanda Thakur MD [address] [place] [address] Phone: tel: fax: [facility] Endocrinology [address] [place] [address] Phone: tel: fax: Referral ID Status Reason Start Date Expiration Date Visits Requested Visits Authorized [id number] Authorized Specialty Services Required 11/07/2024 11/07/2025 1 1 Encounter Details Date Type Department Care Team (Late st Contact Info) Description 11/07/2024 Orders Only [facility] MEDICINE [address] [place] [address] Rolanda Thakur MD [address] [place] [address] Type 2 diabetes mellitus without complication, without [...] documented as of this encounter Care Teams Plant Production Manager Relationship Specialty Start Date End Date Rolanda Thakur MD [address] [place] [address] PCP - General Internal Medicine 09/19/22 documented as of this encounter
--- OUTSIDE RECORDS SUMMARY | 2024-12-13 08:01 | XMS_ITS | Encounter Summary ---
Author Organization [employer] Address [address] [facility] 7 [place] [address] Care Team Providers Care Quarry Supervisor Open Pit Name Role Phone Rolanda Thakur MD Primary Care Provider +1- [phone] Reason for Visit * Reason Onset Date Comments Results 03/29/2024 Encounter Details Date Type Department Care Team ([facility] st Contact Info) Description 03/29/2024 Telephone [facility] MEDICINE [address] [place] [address] Rolanda Thakur MD [address] [place], [place] [phone] Results Social History Tobacco Use Types Packs/Day [...] on filedocumented in this encounter Care Teams Quarry Supervisor Open Pit Relationship Specialty Start Date End Date Rolanda Thakur MD [address] [place] [address] PCP - General Internal Medicine 09/19/22 documented as of this encounter
--- OUTSIDE RECORDS SUMMARY | 2024-12-13 08:01 | XMS_ITS | Clinical Summary ---
Author Organization [facility] Address [address] [place] [address] Phone Care Team Providers Care Process Treater Name Role Phone Rolanda Thakur MD Primary Care Provider +1 -[phone] Allergies Active Allergy Reactions Criticality Noted Date [...] aware that this will likely be an [id number] cost and feels as though she can afford it. I will review results and determine need for future follow-up. In the meantime she would like to hold off on statin therapy which I think is totally reasonable. Orders: ECG 12 lead Pure hypercholesterolemia 07/08/2024 Assessment & Plan (07/08/2024 4:42 PM EST): See plan above. Family History Medical History Relation Name Comments [...] Care Team (Late st Contact Info) Description 12/17/2024 4:15 PM EDT [facility]ointment [facility] [address] [place] [phone] 02/13/2025 10:50 AM EDT Office Visit [facility] [address] [facility] [address] [place] [phone] Nikki Rawls MD [address] [place] [address] Health Maintenance Due Date Last Done Comments [...] Procedure Name Priority Date/Time Associated Diagnosis Comments [facility] SCREENING DIGITAL Routine 10/23/2023 9:44 AM EST Encounter for screening mammogram for malignant neoplasm of breast [facility] DEXA AXIAL SKELETON Routine 04/12/2023 7:46 AM EDT Encounter for screening for osteoporosis from Last 3 Months or Most Recently Relevant to Health Maintenance Results * [facility] SCREENING DIGITAL (10/23/2023 9:44 AM EST) Anatomical Region Laterality Modality Mammography 10/19/2023 2:21 PM EST Narrative 10/23/2023 9:[address] [facility] Diagnostic Imaging Department [address] [place], [place] [id number] Patient: ??ANGELY PINEDA ?/Age/Sex: 1950 73 - Unit#: ??[id number] ? Location/Status: ??SPDIMAM/REG CLI ? Mnemonic/Ordering Site: ??DIGSC/SPMAIN Ordering Physician: ??MAREN HOUGH MD [facility] Screening Digital - 10/21/23 - 0810 Report Status:Signed EXAM: [facility] Screening Digital EXAM DATE AND TIME: 10/21/2023 8:11 AM HISTORY: ??Screening. COMPARISON: ??10/12/22, 06/08/21, 03/04/20 TECHNIQUE: Bilateral digital breast tomosynthesis was performed in the CC and MLO projections. Computer aided detection with Dinos Rule 3D 3.1 was employed. TISSUE DENSITY: a. [...] Note Maria Guadalupe Gotti MD - 04/08/2024 [facility] Diagnostic Imaging Department [address] [place] [address] Patient: ADEDSONANGELY YARA Ochoa/Age/Sex: 1950 - 73 - F Unit#: [id number] Location/Status: SPDIMAM/REG CLI Mnemonic/Ordering Site: [facility] Ordering Physician: MAREN HOUGH MD [facility] Screening Digital - 10/21/23 - 809 Report Status:Signed EXAM: [facility] Screening Digital EXAM DATE AND TIME: 10/21/2023 8:11 AM HISTORY: Screening. COMPARISON: 10/12/22, 06/08/21, 03/04/20 TECHNIQUE: Bilateral digital breast tomosynthesis was performed in the CCand MLO projections. Computer aided detection with Dinos Rule 3D 3.1was employed. TISSUE DENSITY: a. The [...] Date/Time: 10/23/23943 Sign date/Time: 10/23/23943 us Maren Hough MD IMG BI PROCEDURES Final Result * [facility] DEXA AXIAL SKELETON (04/12/2023 7:46 AM EDT) Anatomical Region Laterality Modality Mammography 04/11/2023 3:03 PM EDT Narrative 04/12/2023 7:[address] [facility] Diagnostic Imaging Department [address] [place], [place] [id number] Patient: ??ANGELY PINEDA ?/Age/Sex: 1950 72 - Unit#: ??[id number] ? Location/Status: ??SPDIMAM/REG CLI ? Mnemonic/Ordering Site: ??MAMDEXAAX/SPMAM Ordering Physician: ??MAREN HOUGH MD [facility] Dexa Axial Skeleton - 04/11/231532 [...] probability of hip fracture of 2.2%. Code 24242 Dictating Physician: ??GWENDOLYN BAHENA MD Electronically Signed by: ??GWENDOLYN BAHENA MD Dic Date/Time: ??04/12/23 0745 Sign date/Time: ??04/12/23 0746 Procedure Note Gwendolyn Bahena MD - 09/26/2023 [facility] Diagnostic Imaging Department [address] [place], [place] [id number] Patient: NAGELY PINEDA YARA Unger/Age/Sex: 1950 - 72 - F Unit#: [id number] Location/Status: [facility] CLI Mnemonic/Ordering Site: MAMDEXAAX/SPMAM Ordering Physician: MAREN HOUGH MD [facility] Dexa Axial Skeleton - 04/11/23 [...] density of the femurs bilaterally is 0.874 gm/cj2fdxws is 87% of that of young normals [...] probability of hip fracture of 2.2%. Code 45182 Dictating Physician: GWENDOLYN BAHENA MD Electronically Signed by: GWENDOLYN BAHENA MD Dic Date/Time: 04/12/23 0745 Sign date/Time: 04/12/23 0746 Maren Hough MD IMG BI PROCEDURES Final Result from Last 3 Months or Most Recently Relevant to Health Maintenance Insurance [employer] MEDICARE Care Teams Process Treater Relationship Specialty Start Date End Date Rolanda Thakur MD [address] [place] [address] PCP - General 11/03/23
--- OUTSIDE RECORDS SUMMARY | 2024-12-13 08:01 | XMS_ITS | Encounter Summary ---
Author Organization [employer] Address [address] [place] [place] [address] Care Team Providers Care Sleeve Bottom Feller Name Role Phone Rolanda Thakur MD Primary Care Provider [phone]- [phone] Reason for Visit * Reason Onset Date Comments Medication Question 04/04/2024 Encounter Details Date Type Department Care Team (Late st Contact Info) Description 04/04/2024 Telephone [facility] MEDICINE [address] [place] [address] Rolanda Thakur MD [address] [place], [place] [phone] Medication Question Social History Tobacco Use Types [...] on filedocumented in this encounter Care Teams Sleeve Bottom Feller Relationship Specialty Start Date End Date Rolanda Thakur MD [address] [place] [address] PCP - General Internal Medicine 09/19/22 documented as of this encounter
--- OUTSIDE RECORDS SUMMARY | 2024-12-13 08:01 | XMS_ITS | Encounter Summary ---
Author Organization [email or web address] Address [address] [place] [address] [place] [address] Care Team Providers Care Child Nutrition Manager Name Role Phone Rolanda Thakur MD Primary Care Provider [phone]- [phone] Reason for Visit * Reason Onset Date Comments CT scan order 07/03/2024 Encounter Details Date Type Department Care Team ([facility] Contact Info) Description 07/03/2024 Telephone [facility] CHC MED & PEDS [address] [place] [address] Rolanda Thakur MD [address] [place] [address] CT scan order Social History Tobacco Use [...] Pt prefers being seen in [facility]. Please call pt to clarify. documented in this encounter Plan of Treatment Not on file documented as of this encounter Visit Diagnoses Not on filedocumented in this encounter Additional Health Concerns Assessment Noted Time PHQ-9 Depression Total Score: 2 05/13/20 24 9:24 AM EDT documented as of this encounter Care Teams Child Nutrition Manager Relationship Specialty Start Date End Date Rolanda Thakur MD [address] [place] [address] PCP - General Internal Medicine 09/19/22 documented as of this encounter
--- OUTSIDE RECORDS SUMMARY | 2024-12-13 08:01 | XMS_ITS | Clinical Summary ---
Author Organization [facility] Address [address] [place], [place] [phone] Care Team Providers Care Director Of Billing Name Role Phone Rahel Hough MD Primary Care Provider [phone] Allergies Active Allergy Reactions Criticality Noted Date [...] mg by mouth daily. 0 09/09/2020 Active [place]-3 Fatty Acids (FISH OIL) 1000 MG CAPS [...] age to complete this topic Care Teams Director Of Billing Relationship Specialty Start Date End Date Rahel Hough MD [address] [facility] [place] [address] PCP - General Internal Medicine 11/20/20
--- OUTSIDE RECORDS SUMMARY | 2024-12-13 08:01 | XMS_ITS | Encounter Summary ---
Author Organization [employer] Address [address] [place] [address] Care Team Providers Care Linux Security Administrator Name Role Phone Rolanda Thakur MD Primary Care Provider [phone]- [phone] Reason for Visit * Reason Onset Date Comments Med Refill 04/04/2024 Encounter Details Date Type Department Care Team (Late st Contact Info) Description 04/04/2024 Telephone [facility] MEDICINE [address] [place] [address] Rolanda Thakur MD [address] [place] [address] Med Refill Social History Tobacco Use Types [...] 5 mg tablets To be sent to: [facility] documented in this encounter Plan of Treatment Not on file documented as of this encounter Visit Diagnoses Diagnosis Anxiety- Primary Anxiety state, unspecified documented in this encounter Care Teams Linux Security Administrator Relationship Specialty Start Date End Date Rolanda Thakur MD [address] [place] [address] PCP - General Internal Medicine 09/19/22 documented as of this encounter
--- OUTSIDE RECORDS SUMMARY | 2024-12-13 08:01 | XMS_ITS | Encounter Summary ---
Author Organization [employer] Address [address] [place] [address] 7 [place] [address] Care Team Providers Care Programming Instructor Name Role Phone Rolanda Thakur MD Primary Care Provider [phone] Encounter Details Date Type Department Care Team (Late st Contact Info) Description 04/08/2024 Orders Only [facility] [address] [place], [place] [phone] Rolanda Thakur MD [address] [place] [address] UTI symptoms (Primary Dx) Social History Tobacco [...] Primary documented in this encounter Care Teams Programming Instructor Relationship Specialty Start Date End Date Rolanda Thakur MD [address] [place] [address] PCP - General Internal Medicine 09/19/22 documented as of this encounter
--- OUTSIDE RECORDS SUMMARY | 2024-12-13 08:01 | XMS_ITS | Encounter Summary ---
Author Organization [employer] Address [address] [place] [address] [place] [address] Care Team Providers Care Group Manager Name Role Phone Rolanda Thakur MD Primary Care Provider +1- [phone] Reason for Visit * Reason Comments Med Refill Encounter Details Date Type Department Care Team ([facility] st Contact Info) Description 12/03/2024 Refill [facility] CHC MED & PEDS [address] [place], [place] [phone] Rolanda Thakur MD [address] [place] [address] Diabetic polyneuropathy associated with type 2 diabetes [...] documented as of this encounter Care Teams Group Manager Relationship Specialty Start Date End Date Rolanda Thakur MD [address] [place] [address] PCP - General Internal Medicine 09/19/22 documented as of this encounter
--- OUTSIDE RECORDS SUMMARY | 2024-12-13 08:01 | XMS_ITS | Encounter Summary ---
Author Organization [employer] Address [address] [place] [address] 7 [place] [address] Care Team Providers Care Felled Seam Operator Name Role Phone Rolanda Thakur MD Primary Care Provider +1- [phone] Encounter Details Date Type Department Care Team ([facility] st Contact Info) Description 11/20/2024 Orders Only [facility] CHC MED & PEDS [address] [place] [address] Rolanda Thakur MD [address] [place] [address] Type 2 diabetes mellitus without complication, without long-term current use of insulin ([facility]) (Primary Dx); UTI symptoms Social History Tobacco [...] complication, without long-term current use of insulin ([facility]) UTI symptoms CBC WITH AUTO DIFFERENTIAL Routine 11/23/2024 9:00 AM EDT Type 2 diabetes mellitus without complication, without long-term current use of insulin ([facility]) BASIC METABOLIC PANEL Routine 11/23/2024 9:00 AM EDT Type 2 diabetes mellitus without complication, without long-term current use of insulin ([facility]) documented in this encounter Results * Culture, Urine, Routine (11/23/2024 9:05 AM EDT) Urine Urine specimen obtained by clean catch procedure / Unknown 11/23/2024 9:05 AM EDT 11/23/2024 11:26 AM EDT Comment:[facility] - 11/24/2024 11:22 AM EDT Urine Culture Report Result Urine Culture 10,000 to 50,000 cfu/ml Urine Culture Mixed bacterial hailey characteristic of Urine Culture urogenital contamination. Specimen Source: Urine clean catch us Rolanda Thakur MD LAB MICROBIOLOGY - GENERAL ORDERABLES Final Result [facility] [address] [place] [phone] * (ABNORMAL) CBC auto differential (11/23/2024 9:00 AM EDT) White Blood Count 8.5 4.8 - 10.8 X10*3/uL [facility] Red Blood Count 4.27 4.20 - 5.50 X10*6/uL [facility] Hemoglobin 12.8 12.0 - 16.0 g/dl [facility] Hematocrit 37.0 37.0 - 47.0 % [facility] Mean Corpuscular Volume 86.7 80.0 - 98.0 fL [facility] Mean Corpuscular Hemoglobin 30.0 27.0 - 33.0 pg [facility] Mean Corpuscular HGB Conc 34.6 31.0 - 35.0 g/dl [facility] Red Cell Distribution Width 13.1 11.0 - 16.0 % [facility] Platelet Count 269 160 - 400 X10*3/uL [facility] Mean Platelet Volume 9.1(L) 9.4 - 12.3 fL [facility] Neutrophils Percent Auto 64.4 45 - 73 % [facility] Imm Gran Pct Auto 0.4 0.0 - 0.4 % [facility] Lymphocytes Percent Auto 23.8 20 - 40 % [facility] Monocytes Percent Auto 5.9 2 - 11 % [facility] Eosinophils Percent Auto 4.7(H) 0 - 4 % [facility] Basophils Percent Auto 0.8 0 - 2 % [facility] NRBC Pct Auto 0.0 0.0 - 0.2 /100WBC [facility] Neutrophils Absolute Auto 5.4 2.0 - 8.3 x10*3/uL [facility] Imm Gran Abs Auto 0.03 0.00 - 0.03 X10*3/uL [facility] Lymphocytes Absolute Auto 2.0 1.2 - 4.9 X10*3/uL [facility] Monocytes Absolute Auto 0.5 0.1 - 1.2 X10*3/uL [facility] Eosinophils Absolute Auto 0.4 0.0 - 0.4 X10*3/uL [facility] Basophils Absolute Auto 0.1 0.0 - 0.2 X10*3/uL [facility] NRBC Abs Auto 0.000 0.0 - 0.012 X10*3/uL [facility] Blood Venous blood specimen / Unknown 11/23/2024 9:00 AM EDT 11/23/2024 11:37 AM EDT us Rolanda Thakur MD LAB BLOOD ORDERABLES Final Result [facility] [address] [place] [phone] * (ABNORMAL) Basic Metabolic Panel (11/23/2024 9:00 AM EDT) Sodium 135 135 - 145 mmol/L [facility] Potassium 4.4 3.3 - 5.1 mmol/L [facility] Chloride 103 96 - 108 mmol/L [facility] Carbon Dioxide 24 22 - 29 mmol/L [facility] Anion Gap 12 12 - 20 [facility] Urea Nitrogen (BUN) 21(H) 9 - 16 mg/dL [facility] Creatinine, Serum 0.89 0.5 - 1.4 mg/dL [facility] Estimated Glomerular Filt Rate >60 [facility] Comment:Chronic Kidney Disea se: Estimated GFR < 60 mL/min/1.27l2Rjrott Kidney Disease: Estimated GFR < 15 mL/min/1.73m2 Glucose 161(H) 60 - 115 mg/dL [facility] Calcium 10.2 8.4 - 10.2 mg/dL [facility] Blood Venous blood specimen / Unknown 11/23/2024 9:00 AM EDT 11/23/2024 11:37 AM EDT Rolanda Thakur MD LAB BLOOD ORDERABLES Final Result [facility] [address] [place] [phone] documented in this encounter Visit Diagnoses Diagnosis Type 2 diabetes mellitus without complication, without long-term current use of insulin ([facility])- Primary UTI symptoms documented in this encounter Additional Health Concerns Assessment Noted Time PHQ-9 Depression Total Score: 2 05/13/20 24 9:24 AM EDT documented as of this encounter Care Teams Felled Seam Operator Relationship Specialty Start Date End Date Rolanda Thakur MD [address] [place] [address] PCP - General Internal Medicine 09/19/22 documented as of this encounter
--- OUTSIDE RECORDS SUMMARY | 2024-12-13 08:01 | XMS_ITS | Encounter Summary ---
Author Organization [employer] Address 75 [facility] 7 [place] [address] Care Team Providers Care In House Counsel Name Role Phone Rolanda Thakur MD Primary Care Provider +1- [phone] Reason for Visit * Reason Onset Date Comments Nurse Triage 04/04/2024 Encounter Details Date Type Department Care Team (Late st Contact Info) Description 04/04/2024 Telephone [facility] MEDICINE [address] [place] [address] Rolanda Thakur MD [address] [place] [address] Nurse Triage Social History Tobacco Use Types [...] pt. She states that she went to [facility] for Anxiety panic attacks on 03/30/24- [...] got treated horribly by the staff at [facility] and she will never go there again. [...] care coordinators so that they can get [facility] notes from 03/30/24 Ed visit into pt. Chart and any labs, EKG's etc.. into pt. Chart for visit on 04/05/24 at 315pm. Protocol Used: Anxiety and Panic Attack (Adult) Protocol-Based Disposition: Go to ED[place] [place] (or to Office [...] on filedocumented in this encounter Care Teams In House Counsel Relationship Specialty Start Date End Date Rolanda Thakur MD [address] [place] [address] PCP - General Internal Medicine 09/19/22 documented as of this encounter
--- OUTSIDE RECORDS SUMMARY | 2024-12-13 08:01 | XMS_ITS | Encounter Summary ---
Author Organization [employer] Address [address] [place] [address] [place] [address] Care Team Providers Care Promotions Executive Name Role Phone Rolanda Thakur MD Primary Care Provider +1- [phone] Reason for Visit * Reason Onset Date Comments Prior Authorization 12/11/2024 Encounter Details Date Type Department Care Team ([facility] st Contact Info) Description 12/11/2024 Telephone [facility] CHC MED & PEDS [address] [place] [address] Rolanda Thakur MD [address] [place] [address] Prior Authorization Social History Tobacco Use Types Packs/Day Years [...] encounter Miscellaneous Notes * Telephone Encounter - Danette Buenrostro - 12/12/2024 9:57 AM EDT Tc from pt stating PA was denied due to insufficient notes. Pt requesting a callback [phone] * Telephone Encounter - Ilsa Boyd RN - 12/11/2024 10:47 AM EDT Prior Authorization faxed to [facility] for [employer] G7. Fax wet through successfully on 12/11/24 at 10:23 AM, confirmation fax received. documented in this encounter Plan of Treatment Not on file documented as of this encounter Visit Diagnoses Not on filedocumented in this encounter Additional Health Concerns Assessment Noted Time PHQ-9 Depression Total Score: 2 05/13/20 9:24 AM EDT documented as of this encounter Care Teams Promotions Executive Relationship Specialty Start Date End Date Rolanda Thakur MD [address] [place] [address] PCP - General Internal Medicine 09/19/22 documented as of this encounter
--- OUTSIDE RECORDS SUMMARY | 2024-12-13 08:01 | XMS_ITS | Encounter Summary ---
Author Organization [employer] Address [address] [place] [address] Care Team Providers Care Special Education Preschool Teacher Name Role Phone Rolanda Thakur MD Primary Care Provider +1- [phone] Reason for Visit * Reason Onset Date Comments Call Back Request 10/31/2024 Encounter Details Date Type Department Care Team ([facility] st Contact Info) Description 10/31/2024 Telephone [facility] MEDICINE [address] [place] [address] Rolanda Thakur MD [address] [place] [address] Call Back Request Social History Tobacco Use [...] to DR. Castañeda. Please contact pt at [phone]. documented in this encounter Plan of Treatment Not on file documented as of this encounter Visit Diagnoses Not on filedocumented in this encounter Additional Health Concerns Assessment Noted Time PHQ-9 Depression Total Score: 2 05/13/20 24 9:24 AM EDT documented as of this encounter Care Teams Special Education Preschool Teacher Relationship Specialty Start Date End Date Rolanda Thakur MD [address] [place] [address] PCP - General Internal Medicine 09/19/22 documented as of this encounter
--- OUTSIDE RECORDS SUMMARY | 2024-12-13 08:01 | XMS_ITS | Clinical Summary ---
Author Organization [facility] Address [address] [place] [address] Care Team Providers Care Erp Developer Name Role Phone Maren Hough MD Primary Care Provider Social History Tobacco Use Types Packs/Day Years [...] Colorectal Cancer Screening: Sigmoidoscopy 2000 Pneumococcal Vaccine: 50+ Years (2 of 2 - PCV) 05/29/2015 05/29/2014, 07/22/2008 Diabetes: Hemoglobin A1C 06/19/2022 Diabetes: Ophthalmology Exam 06/19/2022 Diabetes: Pedal Pulse Checked 06/19/2022 Diabetes: Sensory Foot Exam 06/19/2022 Diabetes: Visual Foot Exam 06/19/2022 Influenza Vaccine (Season Ended) 2025 05/04/2009, 07/22/2008 Hepatitis B Vaccine Aged Out No longe r eligible based on patient's age to complete this topic Insurance [facility] Medicare [facility] Medicare Care Teams Erp Developer Relationship Specialty Start Date End Date Maren Hough MD [address] [place] [address] PCP - General Family Medicine 06/20/22
--- OUTSIDE RECORDS SUMMARY | 2024-12-13 08:01 | XMS_ITS | Encounter Summary ---
Author Organization [employer] Address [address] [place] [address] Care Team Providers Care Cooker Soda Name Role Phone Rolanda Thakur MD Primary Care Provider +1- [phone] Reason for Referral * Consultation (Routine) - Closed Specialty Diagnoses / Procedures Referred By Freddy t Referred To Contact Chiropractic Medicine Diagnoses Chronic left-sided low back pain with left-sided sciatica Rolanda Thakur MD [address] [place] [address] Phone: tel: fax: Family Chiropractic fax: Referral ID Status Reason Start Date Expiration Date V isits Requested Visits Authorized [id number] Closed Specialty Services Required 08/08/2024 08/08/2025 1 1 * Consultation (Routine) - Closed Specialty Diagnoses / Procedures Referred By Freddy t Referred To Contact Physical Therapy Diagnoses Chronic left-sided low back pain with left-sided sciatica Rolanda Thakur MD [address] [place] [address] Phone: tel: fax: [facility] Physical Therapy [address] [place] [address] Phone: tel: fax: Referral ID Status Reason Start Date Expiration Date V isits Requested Visits Authorized [id number] Closed Specialty Services Required 08/05/2024 08/05/2025 1 1 * Consultation (Routine) - Closed Specialty Diagnoses / Procedures Referred By Freddy meadows Referred To Contact Chiropractic Medicine Diagnoses Chronic left-sided low back pain with left-sided sciatica Rolanda Thakur MD [address] [place] [address] Phone: tel: fax: Referral ID Status Reason Start Date Expiration Date V isits Requested Visits Authorized [id number] Closed Specialty Services Required 08/02/2024 08/02/2025 1 1 Encounter Details Date Type Department Care Team ([facility] Contact Info) Description 08/02/2024 Orders Only [facility] CHC MED & PEDS [address] [place] [address] Rolanda Thakur MD [address] [place] [address] Chronic left-sided low back pain with left-sided [...] Adult Primary Care ?[address] ? [place] [address] ?XRay Report ? Signed ? Patient: Cook,Angely ?MR#: [id number] ? : 1950 ?Acct:[id number] ? Age/Sex: 74 / F ?ADM Date: 08/12/24 ? Loc: HO.HMGCX ? Attending Dr: Wyatt Golden MD ? Ordering Physician: Wyatt Golden MD ?? Date of Service: 08/12/24 ?? Procedure(s): XR cervical spine 5V ?? Accession Number(s): [id number] ? cc: Rolanda Thakur MD; Wyatt Golden [...] DD/ 0950 ? TD/TT: 08/12/24 1000 ? Cooky Packer: ? Procedure Note Darrell Fonseca - 09/02/2024 [facility] [address] [place], [place] [address] XRay Report Signed Patient: Zion PinedaJean-Paul#: [id number] : 1Acct:[id number] Age/Sex: 74 / FADM Date: 08/12/24 Loc: HO.HMGCX Attending Dr: Waytt Golden MD Ordering Physician: Wyatt Goldne MD Date of Service: 08/12/24 Procedure(s): XR cervical spine 5V Accession Number(s): [id number] cc: Rolanda Thakur MD; Wyatt Golden MD [...] 09/02/24 1121 DD/ 0950 TD/TT: 08/12/24 1000 Cooky Packer: us Wyatt Mcdonald MD IMG XR PROCEDURES Iftikhar mecca Result - Final documented in this encounter Visit Diagnoses Diagnosis Chronic left-sided low back pain with left-sided sciatica- Primary documented in this encounter Additional Health Concerns Assessment Noted Time PHQ-9 Depression Total Score: 2 05/13/20 24 9:24 AM EDT documented as of this encounter Care Teams Cooker Soda Relationship Specialty Start Date End Date Rolanda Thakur MD [address] [place] [address] PCP - General Internal Medicine 09/19/22 documented as of this encounter
--- OUTSIDE RECORDS SUMMARY | 2024-12-13 08:01 | XMS_ITS | Encounter Summary ---
Author Organization [employer] Address [address] [place] [address] [place] [address] Care Team Providers Care Icing Machine Operator Name Role Phone Rolanda Thakur MD Primary Care Provider +1- [phone] Reason for Visit * Reason Comments Med Refill Encounter Details Date Type Department Care Team (Late st Contact Info) Description 05/20/2024 Refill [facility] CHC MED & PEDS [address] [place] [address] Rolanda Thakur MD [address] [place] [address] Diabetic polyneuropathy associated with type 2 diabetes mellitus ([facility]) Social History Tobacco Use Types Packs/Day [...] documented as of this encounter Care Teams Icing Machine Operator Relationship Specialty Start Date End Date Rolanda Thakur MD [address] [place] [address] PCP - General Internal Medicine 09/19/22 documented as of this encounter
--- OUTSIDE RECORDS SUMMARY | 2024-12-13 08:01 | XMS_ITS | Encounter Summary ---
Author Organization [employer] Address [address] [place] [address] [place] [address] Care Team Providers Care Plate Preparer Name Role Phone Rolanda Thakur MD Primary Care Provider +1- [phone] Reason for Visit * Reason Comments Med Refill Encounter Details Date Type Department Care Team ([facility] st Contact Info) Description 01/05/2023 Refill [facility] CHC MED & PEDS [address] [place] [address] Karoline Castañeda MD [address] [place] [address] Social History Tobacco Use Types Packs/Day Years [...] on filedocumented in this encounter Care Teams Plate Preparer Relationship Specialty Start Date End Date Rolanda Thakur MD [address] [place] [address] PCP - General Internal Medicine 09/19/22 documented as of this encounter
--- OUTSIDE RECORDS SUMMARY | 2024-12-13 08:01 | XMS_ITS | Encounter Summary ---
Author Organization [employer] Address [address] [place] [address] Care Team Providers Care House Calls Nurse Practitioner Name Role Phone Rolanda Thakur MD Primary Care Provider +1- [phone] Reason for Visit * Reason Onset Date Comments Referral 06/13/2024 Encounter Details Date Type Department Care Team (Late st Contact Info) Description 06/13/2024 Telephone [facility] MEDICINE [address] [place] [address] Rolanda Thakur MD [address] [place], [place] [phone] Referral Social History Tobacco Use Types Packs/Day [...] documented as of this encounter Care Teams House Calls Nurse Practitioner Relationship Specialty Start Date End Date Rolanda Thakur MD [address] [place] [address] PCP - General Internal Medicine 09/19/22 documented as of this encounter
--- OUTSIDE RECORDS SUMMARY | 2024-12-13 08:01 | XMS_ITS | Encounter Summary ---
Author Organization [employer] Address [address] [place] [address] Care Team Providers Care Training Associate Name Role Phone Rolanda Thakur MD Primary Care Provider +1- [phone] Reason for Visit * Reason Onset Date Comments FYI 11/19/2024 Encounter Details Date Type Department Care Team (Late st Contact Info) Description 11/19/2024 Telephone [facility] MEDICINE [address] [place] [address] Rolanda Thakur MD [address] [place] [address] FYI Social History Tobacco Use Types Packs/Day [...] documented as of this encounter Care Teams Training Associate Relationship Specialty Start Date End Date Rolanda Thakur MD [address] [place] [address] PCP - General Internal Medicine 09/19/22 documented as of this encounter
--- OUTSIDE RECORDS SUMMARY | 2024-12-13 08:01 | XMS_ITS | Encounter Summary ---
Author Organization [employer] Address [address] [place] [address] Care Team Providers Care Phlebotomy Director Name Role Phone Rolanda Thakur MD Primary Care Provider +1- [phone] Reason for Visit * Reason Onset Date Comments EKG 06/18/2024 Encounter Details Date Type Department Care Team ([facility] st Contact Info) Description 06/18/2024 Telephone [facility] CHC MED & PEDS [address] [place] [address] Rolanda Thakur MD [address] [place] [address] EKG Social History Tobacco Use Types Packs/Day [...] Given pt's symptoms, she would need a [facility] appointment to get the notes for our resource protection specialist to process the referral. * Telephone [...] should seek a neurology referral. She states combat information center officer advised her to get a referral due to procedure done for cataracts might have struck a nerve and that might be were the headaches are coming from. * Telephone Encounter - Annabella Peña - 06/18/2024 4:03 PM EDT Tc from pt requesting status on order for EKG. Contact Paulette at [phone] documented in this encounter Plan of Treatment Not on file documented as of this encounter Visit Diagnoses Not on filedocumented in this encounter Additional Health Concerns Assessment Noted Time PHQ-9 Depression Total Score: 2 05/13/20 24 9:24 AM EDT documented as of this encounter Care Teams Phlebotomy Director Relationship Specialty Start Date End Date Rolanda Thakur MD [address] [place] [address] PCP - General Internal Medicine 09/19/22 documented as of this encounter
--- OUTSIDE RECORDS SUMMARY | 2024-12-13 08:01 | XMS_ITS | Encounter Summary ---
Author Organization [employer] Address [address] [place] [address] [place] [address] Care Team Providers Care Residential Solar Sales Consultant Name Role Phone Rolanda Thakur MD Primary Care Provider +1- [phone] Reason for Visit * Reason Onset Date Comments Referral 05/18/2023 Encounter Details Date Type Department Care Team ([facility] st Contact Info) Description 05/18/2023 Telephone [facility] CHC MED & PEDS [address] [place] [address] Rolanda Thakur MD [address] [place] [address] Referral Social History Tobacco Use Types Packs/Day [...] used to see Dr. Chad Dempsey from [facility] butnow the office doesn't take her [...] advise. Also sent you her response from [employer]. Thanks. * Telephone Encounter - Annabella Peña [...] to Specialty: (EMG) Dr nolasco Date&Time: N/a Gamemaster: n/a Please call pt to clarify documented in this encounter Plan of Treatment Not on file documented as of this encounter Visit Diagnoses Not on filedocumented in this encounter Care Teams Residential Solar Sales Consultant Relationship Specialty Start Date End Date Rolanda Thakur MD [address] [place] [address] PCP - General Internal Medicine 09/19/22 documented as of this encounter
--- OUTSIDE RECORDS SUMMARY | 2024-12-13 08:02 | XMS_ITS | Encounter Summary ---
Author Organization [employer] Address [address] [place] [address] Care Team Providers Care Fisher Net Name Role Phone Rolanda Thakur MD Primary Care Provider +1- [phone] Reason for Referral * Consultation (Routine) - Closed Specialty Diagnoses / Procedures Referred By Contac t Referred To Contact Podiatry Diagnoses Type 2 diabetes mellitus without complication, without long-term current use of insulin (CMS/HCC) Rolanda Thakur MD [address] [place] [address] Phone: tel: fax: Carl Avitia DPM Phone: tel: fax: Referral ID Status Reason Start Date Expiration Date V isits Requested Visits Authorized [id number] Closed Specialty Services Required 11/01/2023 10/31/2024 1 1 Encounter Details Date Type Department Care Team (Late st Contact Info) Description 10/23/2023 Orders Only [facility] CHC MED & PEDS [address] [place] [address] Rolanda Thakur MD [address] [place] [address] Acquired hypothyroidism (Primary Dx); Type 2 diabetes [...] (CMS/HCC) documented in this encounter Care Teams Fisher Net Relationship Specialty Start Date End Date Rolanda Thakur MD [address] [place] [address] PCP - General Internal Medicine 09/19/22 documented as of this encounter
--- OUTSIDE RECORDS SUMMARY | 2024-12-13 08:02 | XMS_ITS | Encounter Summary ---
Author Organization [employer] Address [address] [place] [address] [place] [address] Care Team Providers Care Engineered Wood Designer Name Role Phone Rolanda Thakur MD Primary Care Provider +1- [phone] Reason for Visit * Reason Onset Date Comments Referral 11/16/2023 Encounter Details Date Type Department Care Team ([facility] st Contact Info) Description 11/16/2023 Telephone [facility] CHC MED & PEDS [address] [place] [address] Rolanda Thakur MD 505 [place] [address] Referral Social History Tobacco Use Types Packs/Day [...] MyChart encounter. Any questions, contact pt at [phone] documented in this encounter Plan of Treatment Not on file documented as of this encounter Visit Diagnoses Not on filedocumented in this encounter Care Teams Engineered Wood Designer Relationship Specialty Start Date End Date Rolanda Thakur MD [address] [place] [address] PCP - General Internal Medicine 09/19/22 documented as of this encounter
--- OUTSIDE RECORDS SUMMARY | 2024-12-13 08:02 | XMS_ITS | Encounter Summary ---
Author Organization [employer] Address [address] [place] [address] [place] [address] Care Team Providers Care Tank Truck Driver Name Role Phone Rolanda Thakur MD Primary Care Provider +1- [phone] Encounter Details Date Type Department Care Team (Late st Contact Info) Description 10/27/[address] [facility] MEDICINE [address] [place] [address] [phone] Rolanda Thakur MD 505 [place] [address] Social History Tobacco Use Types Packs/Day Years [...] on filedocumented in this encounter Care Teams Tank Truck Driver Relationship Specialty Start Date End Date Rolanda Thakur MD 505 [place] [address] PCP - General Internal Medicine 09/19/22 documented as of this encounter
--- OUTSIDE RECORDS SUMMARY | 2024-12-13 08:02 | XMS_ITS | Encounter Summary ---
Author Organization [employer] Address 75 [facility] 7 [place] [address] Care Team Providers Care Handkerchief Presser Name Role Phone Rolanda Thakur MD Primary Care Provider +1- [phone] Reason for Visit * Reason Onset Date Comments Med Refill 08/19/2024 Encounter Details Date Type Department Care Team (Late st Contact Info) Description 08/19/2024 Refill [facility] [address] [place] [address] Wyatt Huizar MD 230 [place] [address] Neck pain on left side Social History [...] documented as of this encounter Care Teams Handkerchief Presser Relationship Specialty Start Date End Date Rolanda Thakur MD [address] [place] [address] PCP - General Internal Medicine 09/19/22 documented as of this encounter
--- OUTSIDE RECORDS SUMMARY | 2024-12-13 08:02 | XMS_ITS | Encounter Summary ---
Author Organization [employer] Address 75 [facility] 7 [place] [address] Care Team Providers Care Trip Follower Name Role Phone Rolanda Thakur MD Primary Care Provider +1- [phone] Reason for Visit * Reason Onset Date Comments Nurse Triage 08/09/2024 Encounter Details Date Type Department Care Team (Late st Contact Info) Description 08/09/2024 Telephone [facility] MEDICINE 230 [place] [address] Rolanda Thakur MD 505 [place] [address] Nurse Triage Social History Tobacco Use Types [...] and reasons to call back. Reviewed [facility] operating hours and that wait times vary. Protocol Used: Neck Pain or Stiffness (Adult) Protocol-Based Disposition: See in Office or Video Visit Today or Tomorrow Future Appointments Date Time Provider Department Center 08/10/2024 9:40 AM [facility] 2 WALK-IN [facility] Insurance verified as active per Real Time Eligibility in [facility]. Positive Triage Question: * Tenderness in [...] documented as of this encounter Care Teams Trip Follower Relationship Specialty Start Date End Date Roladna Thakur MD [address] [place] [address] PCP - General Internal Medicine 09/19/22 documented as of this encounter
--- OUTSIDE RECORDS SUMMARY | 2024-12-13 08:02 | XMS_ITS | Encounter Summary ---
Author Organization [employer] Address [address] [place] [address] [place] [address] Care Team Providers Care Auxiliary Powerplant Operator Name Role Phone Rolanda Thakur MD Primary Care Provider Encounter Details Date Type Department Care Team ([facility] st Contact Info) Description 03/28/2024 Orders Only [facility] CHC MED & PEDS 505 [place], [place] [phone] Karen Alcantar MD 505 [place] [address] Social History Tobacco Use Types Packs/Day Years [...] on filedocumented in this encounter Care Teams Auxiliary Powerplant Operator Relationship Specialty Start Date End Date Rolanda Thakur MD 505 [place] [address] PCP - General Internal Medicine 09/19/22 documented as of this encounter
--- OUTSIDE RECORDS SUMMARY | 2024-12-13 08:02 | XMS_ITS | Encounter Summary ---
Author Organization [employer] Address [address] [place] [address] Care Team Providers Care Museum Librarian Name Role Phone Rolanda Thakur MD Primary Care Provider [phone]- [phone] Reason for Visit * Reason Onset Date Comments Medication Question 10/23/2023 Encounter Details Date Type Department Care Team (Late st Contact Info) Description 10/23/2023 Telephone [facility] MEDICINE 230 [place] [address] Rolanda Thakur MD 505 [place], [place] [phone] Medication Question Social History Tobacco Use Types [...] on filedocumented in this encounter Care Teams Museum Librarian Relationship Specialty Start Date End Date Rolanda Thakur MD [address] [place] [address] PCP - General Internal Medicine 09/19/22 documented as of this encounter
--- OUTSIDE RECORDS SUMMARY | 2024-12-13 08:02 | XMS_ITS | Encounter Summary ---
Author Organization [employer] Address [address] [place] [address] Care Team Providers Care Email Deployment Specialist Name Role Phone Rolanda Thakur MD Primary Care Provider [phone]- [phone] Reason for Visit * Reason Onset Date Comments Med Refill 10/27/2023 Encounter Details Date Type Department Care Team (Late st Contact Info) Description 10/27/2023 Telephone [facility] MEDICINE 230 [place] [address] Rolanda Thakur MD 505 [place] [address] Med Refill Social History Tobacco Use Types [...] on medication 125 Please contact pt @ [phone] No meds. * Telephone Encounter - Haylie Cantor RN - 10/27/2023 3:44 PM EST Patient reporting alternating days of synthroid 125 mcg and synthroid 137 mcg. Requesting new script for synthroid 125 mcg. Please review and advise, thanks. Tc from pt requesting levothyroxine (Synthroid) 125 MCG tablet, conventional mortgage underwriter do not see med in chart but pt stated has been taking this medication for 10 years, pt switch 137 and 125 every day, conventional mortgage underwriter attempted to contact pharmacy for clarifications but [facility] [address] open at 9:00AM. * Telephone Encounter - Jenny Neff - 10/27/2023 8:31 AM EST Tc from pt requesting levothyroxine (Synthroid) 125 MCG tablet, conventional mortgage underwriter do not see med in chart but pt stated has been taking this medication for 10 years, pt switch 137 and 125 every day, conventional mortgage underwriter attempted to contact pharmacy for clarifications but [facility] [address] open at 9:00AM. documented in this encounter Plan of Treatment Not on file documented as of this encounter Visit Diagnoses Not on filedocumented in this encounter Care Teams Email Deployment Specialist Relationship Specialty Start Date End Date Rolanda Thakur MD [address] [place] [phone] PCP - General Internal Medicine 09/19/22 documented as of this encounter
--- OUTSIDE RECORDS SUMMARY | 2024-12-13 08:02 | XMS_ITS | Encounter Summary ---
Author Organization [employer] Address [address] [place] [address] [place] [address] Care Team Providers Care Experimental Rocketsled Mechanic Name Role Phone Rolanda Thakur MD Primary Care Provider [phone] Reason for Visit * Reason Onset Date Comments Medication Question 12/09/2022 Encounter Details Date Type Department Care Team ([facility] st Contact Info) Description 12/09/2022 Telephone [facility] CHC MED & PEDS 505 [place] [address] Rolanda Thakur MD 505 [place] [address] Medication Question Social History Tobacco Use Types [...] - 12/09/2022 3:51 PM EDT Tc from [facility] requesting a clarification in new script for Synthroid 50 MCG tablet if dosage was sent incorrectly because in last script (levothyroxine (Synthroid) 150 MCG tablet) it [id number] MCG and New script is it 50 mcg so pharmacy is requesting some clarification Please contact Pharmacy at [phone] documented in this encounter Plan of Treatment Not on file documented as of this encounter Visit Diagnoses Not on filedocumented in this encounter Care Teams Experimental Rocketsled Mechanic Relationship Specialty Start Date End Date Rolanda Thakur MD [address] [place] [address] PCP - General Internal Medicine 09/19/22 documented as of this encounter
--- OUTSIDE RECORDS SUMMARY | 2024-12-13 08:02 | XMS_ITS | Encounter Summary ---
Author Organization [employer] Address [address] [place] [address] [facility] [place] [address] Care Team Providers Care Middle School Football Coach Name Role Phone Rolanda Thakur MD Primary Care Provider [phone] Reason for Referral * Consultation (Routine) - Closed Specialty Diagnoses / Procedures Referred By Freddy meadows Referred To Contact Neurology Diagnoses Other polyneuropathy Rolanda Thakur MD 505 [place] [address] Phone: tel: fax: [facility] [address] [place], [place] Phone: tel: fax: Referral ID Status Reason Start Date Expiration Date V isits Requested Visits Authorized [id number] Closed Specialty Services Required 11/22/2023 11/21/2024 1 1 * Consultation (Routine) - Closed Specialty Diagnoses / Procedures Referred By Freddy meadows Referred To Contact Physiatry Diagnoses Other polyneuropathy Rolanda Thakur MD [address] [place] [address] Phone: tel: fax: Referral ID Status Reason Start Date Expiration Date V isits Requested Visits Authorized [id number] Closed Specialty Services Required 11/17/2023 11/16/2024 1 1 Encounter Details Date Type Department Care Team (Late st Contact Info) Description 11/16/2023 Orders Only [facility] CHC MED & PEDS 505 [place] [address] Rolanda Thakur MD [address] [place] [address] Other polyneuropathy (Primary Dx) Social History Tobacco [...] Primary documented in this encounter Care Teams Middle School Football Coach Relationship Specialty Start Date End Date Rolanda Thakur MD 505 [place] [address] PCP - General Internal Medicine 09/19/22 documented as of this encounter
--- OUTSIDE RECORDS SUMMARY | 2024-12-13 08:02 | XMS_ITS | Encounter Summary ---
Author Organization [employer] Address [address] [place] [address] Care Team Providers Care Automotive Lube Technician Name Role Phone Rolanda Thakur MD Primary Care Provider +1- [phone] Encounter Details Date Type Department Care Team ([facility] st Contact Info) Description 12/28/2023 Orders Only [facility] CHC MED & PEDS 505 [place] [address] Rolanda Thakur MD 505 [place] [address] Social History Tobacco Use Types Packs/Day Years [...] on filedocumented in this encounter Care Teams Automotive Lube Technician Relationship Specialty Start Date End Date Rolanda Thakur MD [address] [place] [address] PCP - General Internal Medicine 09/19/22 documented as of this encounter
--- OUTSIDE RECORDS SUMMARY | 2024-12-13 08:02 | XMS_ITS | Encounter Summary ---
Author Organization [employer] Address [address] [place] [address] Care Team Providers Care Wind Plant Manager Name Role Phone Rolanda Thakur MD Primary Care Provider +1- [phone] Encounter Details Date Type Department Care Team ([facility] st Contact Info) Description 10/27/2023 Orders Only [facility] CHC MED & PEDS [address] [place] [address] Bhavesh Yang, RN 505 [place], [place] Social History Tobacco Use Types Packs/Day [...] on filedocumented in this encounter Care Teams Wind Plant Manager Relationship Specialty Start Date End Date Rolanda Thakur MD 505 [place] [address] PCP - General Internal Medicine 09/19/22 documented as of this encounter
--- OUTSIDE RECORDS SUMMARY | 2024-12-13 08:02 | XMS_ITS | Encounter Summary ---
Author Organization [employer] Address [address] [place] [address] 7 [place] [address] Care Team Providers Care Cone Sewer Name Role Phone Rolanda Thakur MD Primary Care Provider +1- [phone] Encounter Details Date Type Department Care Team ([facility] st Contact Info) Description 09/23/2024 Orders Only [facility] CHC MED & PEDS 505 [place] [address] Rolanda Thakur MD 505 [place] [address] Acquired hypothyroidism (Primary Dx); Benign essential hypertension [...] 3 - 16 ng/dLTHIS TEST WAS PERFORMED AT:[employer] [id number] [place] [id number] PEDERSEN MD,PHD Plasma Renin Activity 0.52 0.25 - 5.82 ng/mL/h [facility] Aldosterone/Renin Ratio 3.8 0.9 - 28.9 Ratio [facility] Comment:This test was develo ped and its analytical performancecharacteristics have been determined by [facility] [place], [place]. It hasnot been cleared or approved by the U.S. Food and DrugAdministration. This assay has been validated pursuantto the CLIA regulations and is used for clinicalpurposes.THIS TEST WAS PERFORMED AT:[id number] [place] [address]YVWFYWHTEHO PEDERSEN MD,PHD Blood Venous blood specimen / Unknown 09/24/2024 1:40 PM EST 09/24/2024 4:21 PM EST us Rolanda Thakur MD LAB BLOOD ORDERABLES Final Result [facility] [address] [place] [phone] * TSH W/Reflex to FT4 (09/24/2024 1:40 PM EST) TSH reflex Free T4 0.38 0.32 - 4.0 uIU/mL [facility] Blood Venous blood specimen / Unknown 09/24/2024 1:40 PM EST 09/24/2024 4:21 PM EST us Rolanda Thakur MD LAB BLOOD ORDERABLES Final Result Performing Organization Address [facility] Co de Phone Number [facility] [address] [place] [phone] * (ABNORMAL) Basic Metabolic Panel, Fasting (09/24/2024 1:40 PM EST) Sodium 139 135 - 145 mmol/L [facility] Potassium 3.8 3.3 - 5.1 mmol/L [facility] Chloride 106 96 - 108 mmol/L [facility] Carbon Dioxide 22 22 - 29 mmol/L [facility] Anion Gap 15 12 - 20 [facility] Urea Nitrogen (BUN) 13 9 - 16 mg/dL [facility] Creatinine, Serum 0.94 0.5 - 1.4 mg/dL [facility] Estimated Glomerular Filt Rate 58 [facility] Comment:Chronic Kidney Disea se: Estimated GFR < 60 mL/min/1.43v6Znqbuy Kidney Disease: Estimated GFR < 15 mL/min/1.73m2 Glucose Fasting 169(H) 60 - 99 mg/dL [facility] Comment:A fasting glucose of 126 mg/dl or greater on more than oneoccasion is considered diagnostic of diabetes. Calcium 9.9 8.4 - 10.2 mg/dL [facility] Blood Venous blood specimen / Unknown 09/24/2024 1:40 PM EST 09/24/2024 4:21 PM EST us Rolanda Thakur MD LAB BLOOD ORDERABLES Final Result Performing Organization Address [facility]/ZIP Co de Phone Number [facility] [address] [place] [phone] * (ABNORMAL) CBC auto differential (09/24/2024 1:40 PM EST) White Blood Count 7.0 4.8 - 10.8 X10*3/uL [facility] Red Blood Count 4.23 4.20 - 5.50 X10*6/uL [facility] Hemoglobin 12.6 12.0 - 16.0 g/dl [facility] Hematocrit 37.0 37.0 - 47.0 % [facility] Mean Corpuscular Volume 87.5 80.0 - 98.0 fL [facility] Mean Corpuscular Hemoglobin 29.8 27.0 - 33.0 pg [facility] Mean Corpuscular HGB Conc 34.1 31.0 - 35.0 g/dl [facility] Red Cell Distribution Width 12.8 11.0 - 16.0 % [facility] Platelet Count 251 160 - 400 X10*3/uL [facility] Mean Platelet Volume 9.5 9.4 - 12.3 fL [facility] Neutrophils Percent Auto 59.8 45 - 73 % [facility] Imm Gran Pct Auto 0.3 0.0 - 0.4 % [facility] Lymphocytes Percent Auto 26.1 20 - 40 % [facility] Monocytes Percent Auto 8.6 2 - 11 % [facility] Eosinophils Percent Auto 4.3(H) 0 - 4 % [facility] Basophils Percent Auto 0.9 0 - 2 % [facility] NRBC Pct Auto 0.0 0.0 - 0.2 /100WBC [facility] Neutrophils Absolute Auto 4.2 2.0 - 8.3 x10*3/uL [facility] Imm Gran Abs Auto 0.02 0.00 - 0.03 X10*3/uL [facility] Lymphocytes Absolute Auto 1.8 1.2 - 4.9 X10*3/uL [facility] Monocytes Absolute Auto 0.6 0.1 - 1.2 X10*3/uL [facility] Eosinophils Absolute Auto 0.3 0.0 - 0.4 X10*3/uL [facility] Basophils Absolute Auto 0.1 0.0 - 0.2 X10*3/uL [facility] NRBC Abs Auto 0.000 0.0 - 0.012 X10*3/uL [facility] Blood Venous blood specimen / Unknown 09/24/2024 1:40 PM EST 09/24/2024 4:21 PM EST Rolanda Thakur MD LAB BLOOD ORDERABLES Final Result [facility] [address] [place] [phone] [phone] documented in this encounter Visit Diagnoses Diagnosis Acquired hypothyroidism- Primary Unspecified hypothyroidism Benign essential hypertension Essential hypertension, benign documented in this encounter Additional Health Concerns Assessment Noted Time PHQ-9 Depression Total Score: 2 05/13/20 24 9:24 AM EDT documented as of this encounter Care Teams Cone Sewer Relationship Specialty Start Date End Date Rolanda Thakur MD [address] [place] [address] PCP - General Internal Medicine 09/19/22 documented as of this encounter
--- OUTSIDE RECORDS SUMMARY | 2024-12-13 08:02 | XMS_ITS | Encounter Summary ---
Author Organization [employer] Address [address] [address] Care Team Providers Care Environmental Planning Engineer Name Role Phone Rolanda Thakur MD Primary Care Provider +1- [phone] Reason for Visit * Reason Onset Date Comments Nurse Triage 01/03/2024 Encounter Details Date Type Department Care Team (Late st Contact Info) Description 01/03/2024 Telephone [facility] MEDICINE [address] [place] [address] Rolanda Thakur MD [address] [place] [address] Nurse Triage Social History Tobacco Use Types [...] filedocumented in this encounter Care Teams Environmental Planning Engineer Relationship Specialty Start Date End Date Rolanda Thakur MD [address] [place] [address] PCP - General Internal Medicine 09/19/22 documented as of this encounter
--- OUTSIDE RECORDS SUMMARY | 2024-12-13 08:02 | XMS_ITS | Encounter Summary ---
Author Organization [employer] Address [address] [place] [address] [place] [address] Care Team Providers Care Land Management Supervisor Name Role Phone Rolanda Thakur MD Primary Care Provider +1- [phone] Reason for Visit * Reason Onset Date Comments Referral 09/29/2022 Encounter Details Date Type Department Care Team ([facility] st Contact Info) Description 09/29/2022 Telephone [facility] CHC MED & PEDS 505 [place] [address] Rolanda Thakur MD [address] [place] [address] Referral Social History Tobacco Use Types Packs/Day [...] to fax order to Dr Dempsey on [phone] Dempsey's office on [phone]. Will forward message to provider. RN called Roxanne and gave her the phone and fax number to Dr Dempsey's office and also to f/u when EMG order is placed by PCP. * Telephone Encounter - Machelle Adam RN - 10/03/2022 10:09 AM EST Return call placed to Haylie at [facility] neuroscience, spoke with Jumana who [...] 1:30 PM EST Tc from Haylie from [facility] med / rehab calling to inform they need more dx clarification for referral that was sent . and phone # [phone] documented in this encounter Plan of Treatment Not on file documented as of this encounter Visit Diagnoses Diagnosis Diabetic polyneuropathy associated with diabetes mellitus due to underlying condition (CMS/[facility])- Primary documented in this encounter Care Teams Land Management Supervisor Relationship Specialty Start Date End Date Rolanda Thakur MD [address] [place] [address] PCP - General Internal Medicine 09/19/22 documented as of this encounter
--- OUTSIDE RECORDS SUMMARY | 2024-12-13 08:02 | XMS_ITS | Encounter Summary ---
Author Organization [employer] Address [address] [place] [address] Care Team Providers Care Distributor Sales Manager Name Role Phone Rolanda Thakur MD Primary Care Provider +1- [phone] Reason for Referral * Consultation (Routine) - Canceled Specialty Diagnoses / Procedures Referred By Contac t Referred To Contact Endocrinology Diagnoses Type 2 diabetes mellitus without complication, without long-term current use of insulin (CMS/HCC) Rolanda Thakur MD [address] [place] [address] Phone: tel: fax: Referral ID Status Reason Start Date Expiration Date Visits Requested Visits Authorized [id number] Canceled Specialty Services Required 10/08/2024 10/08/2025 1 1 Encounter Details Date Type Department Care Team (Late st Contact Info) Description 10/08/2024 Orders Only [facility] CHC MED & PEDS [address] [place] [address] Rolanda Thakur MD [address] [place], [place] [phone] Type 2 diabetes mellitus without complication, without [...] complication, without long-term current use of insulin ([facility]) Expected: 10/08/2024 (Approximate), Expires: 10/08/2025 Scheduled Referrals Name Type Priority Associated Diagnoses Order Schedule Referral to Endocrinology Outpatient Referral Routine Type 2 diabetes mellitus without complication, without long-term current use of insulin (CMS/[facility]) Expected: 10/08/2024 (Approximate), Expires: 10/08/2025 documented as of this encounter Visit Diagnoses Diagnosis Type 2 diabetes mellitus without complication, without long-term current use of insulin ([facility])- Primary documented in this encounter Additional Health Concerns Assessment Noted Time PHQ-9 Depression Total Score: 2 05/13/20 24 9:24 AM EDT documented as of this encounter Care Teams Distributor Sales Manager Relationship Specialty Start Date End Date Rolanda Thakur MD [address] [place] [address] PCP - General Internal Medicine 09/19/22 documented as of this encounter
--- OUTSIDE RECORDS SUMMARY | 2024-12-13 08:02 | XMS_ITS | Clinical Summary ---
Author Organization [employer] Address [address] [place] [address] 7 [place] [address] Care Team Providers Care Gage Designer Name Role Phone Rolanda Thakur MD Primary Care Provider [phone] Allergies Active Allergy Reactions Criticality Noted Date [...] without long-term current use of insulin ([facility]) Chew 4 tablets (16 g) if needed for low blood sugar. 50 tablet 12 03/06/20 24 2024 Active glucose blood (Next Glassuch Ultra) test stripIndications: Type 2 diabetes mellitus without complication, without long-term current use of insulin ([facility]) USE DIRECTED TO TEST BLOOD GLUCOSE TWICE DAILY 100 strip 11 07/05/20 24 Active metFORMIN (Glucophage) 500 MG tabletIndications :Type 2 diabetes mellitus without complication, without long-term current use of insulin ([facility]) TAKE 1 TABLET BY MOUTH TWICE [...] 09/19/19 25 Active glipiZIDE XL (Glucotrol XL) 5 MG 24 hr tablet Take 1 tablet (5 mg) by mouth in the morning and at bedtime. Do not crush, chew, or split. 60 tablet 11/30/19 25 2025 Active Continuous Glucose Sensor (Dexcom G7 Sensor) misc Inject 2 each under the skin every 14 (fourteen) days. USE DIRECTED TO TEST BLOOD SUGAR 9 each 12/07/19 25 Active glipiZIDE (Glucotrol) 10 MG tabletIndications :Diabetic polyneuropathy associated with type 2 diabetes mellitus (CMS/HCC) TAKE 1 TABLET(10 MG) BY MOUTH BEFORE BREAKFAST AND BEFORE THE EVENING MEAL 60 tablet 09/18/19 25 2024 Discontinued(D ose adjustment) glipiZIDE XL (Glucotrol XL) 10 MG 24 hr tabletIndications :Type 2 diabetes mellitus without complication, without long-term current use of insulin (CMS/HCC) Take 1 tablet (10 mg) by mouth Once per day. Do not crush, chew, or split. 30 tablet 11 11/15/19 25 2024 Discontinued(R eorder (will not trigger notification to Pharmacy)) glipiZIDE XL (Glucotrol XL) 10 MG 24 hr tabletIndications :Type 2 diabetes mellitus without complication, without long-term current use of insulin (CMS/HCC) Take 1 tablet (10 mg) by mouth 2 times daily. Do not crush, chew, or split. 60 tablet 11/15/19 25 2024 Discontinued(D ose adjustment) Active Problems Problem Noted Date Diagnosed Date [...] Plan: Augmentin BID x 10 days Nasal [place] Follow up if worsening or no improvement [...] intervention , [facility], Patient to engage in OP therapy , and Patient to reach out to HC as needed Swelling of lip, tongue, and throat 05/10/2024 Assessment & Plan (05/22/2024 1:00 PM EDT): Patient reports episodes of swelling of exposure to different antigens, at this moment given recurrence and symptoms affecting patients daily, will strongly benefit of assessment from embossing calender operator to help elucidate etiology of symptoms. Peripheral [...] organization. Date Type Department Care Team Description 12/11/2024 Telephone [facility] [address] [place] [address] Rolanda Thakur MD Prior Authorization 12/10/2024 Telephone [facility] [address] [place] [address] Rolanda Thakur MD Medication Question; Med Refill 12/06/2024 Refill [facility] [address] [place] [address] Rolanda Thakur MD 12/03/2024 Refill [facility] [address] [place] [address] Rolanda Thakur MD Diabetic polyneuropathy associated with type 2 diabetes mellitus ([facility]) 12/03/2024 Telephone [facility] [address] [place] [address] Rolanda Thakur MD 12/02/2024 Telephone [facility] [address] [place] [address] Rolanda Thakur MD 11/27/[address] [address] Rolanda Thakur MD Medication Question 11/27/[address] [address] Rolanda Thakur MD Call Back Request 11/26/2024 6:40 PM EDT Office Visit [facility] [address] [place] [phone] Ilsa Arana MD Recent urinary tract infection (Primary Dx) 11/26/2024 Orders Only [address] [address] Ilsa Arana MD 11/26/2024 Travel 11/26/[address] [address] Rolanda Thakur MD Nurse Triage 11/22/[address] [address] Rolanda Thakur MD 11/20/2024 Orders Only [facility] [address] [place] [address] Rolanda Thakur MD Type 2 diabetes mellitus without complication, without long-term current use of insulin ([facility]) (Primary Dx); UTI symptoms 11/19/[address] [address] Rolanda Thakur MD FYI 11/19/[address] [address] Rolanda Thakur MD Nurse Triage 11/14/2024 4:00 PM EDT Office Visit [facility] [address] [place] [address] Rolanda Thakur MD Type 2 diabetes mellitus without complication, without long-term current use of insulin (CMS/HCC) (Primary Dx); Bronchitis 11/14/2024 Travel 11/12/2024 7:20 PM EDT Office Visit [facility] [address] [place] [phone] Ilsa Arana MD FB eye, left, initial encounter (Primary Dx) 11/12/2024 Travel 11/09/2024 Orders Only GENERIC EXTERNAL DATA DEPARTMENT Provider, Generic External Data 11/07/2024 Orders Only [address] [address] Rolanda Thakur MD Type 2 diabetes mellitus without complication, without long-term current use of insulin (CMS/HCC) (Primary Dx); Benign essential hypertension 11/06/[address] [address] Rolanda Thakur MD Appointment Request 10/31/[address] [address] Rolanda Thakur MD Call Back Request 10/31/[address] [address] Rolanda Thakur MD I ; Call Back Request 10/31/[address] [address] Rolanda Thakur MD Nurse Triage 10/28/2024 Telephone [facility] [address] [place] [address] Rolanda Thakur MD 10/23/2024 Telephone [facility] [address] [place] [address] Apple Britton, PharmD 10/14/2024 Patient Outreach [facility] [address] [place] [address] Rolanda Thakur MD Care Coordination (CHW outreach for SDOH-patient declined to participate ) 10/14/[address] [address] Rolanda Thakur MD 10/11/2024 3:45 PM EST Office Visit [facility] [address] [place] [address] Rolanda Thakur MD Type 2 diabetes mellitus without complication, without long-term current use of insulin (CMS/HCC) (Primary Dx); Generalized anxiety disorder with panic attacks; Financial difficulties; Meralgia paresthetica of right side 10/11/2024 Telephone [facility] [address] [place] [address] Rolanda Thakur MD FYI 10/11/2024 Travel 10/08/2024 Telephone [facility] [address] [place] [address] Rolanda Thakur MD Change PCP 10/08/2024 Orders Only [facility] [address] [place] [address] Rolanda Thakur MD Type 2 diabetes mellitus without complication, without long-term current use of insulin (CMS/HCC) (Primary Dx) 10/08/2024 Telephone [facility] [address] [place] [address] Rolanda Thakur MD 09/24/2024 Orders Only GENERIC EXTERNAL DATA DEPARTMENT Provider, Generic External Data 09/24/2024 Telephone [facility] [address] [place] [address] Rolanda Thakur MD Nurse Triage 09/23/2024 Telephone [facility] [address] [place] [address] Huong Heredia RN 09/23/2024 Orders Only [facility] [address] [place] [address] Rolanda Thakur MD Acquired hypothyroidism (Primary Dx); Benign essential hypertension 09/18/2024 Refill [facility] [address] [place] [address] Wyatt Huizar MD Neck pain on left side 09/17/2024 Refill [facility] [address] [place] [address] Rolanda Thakur MD Diabetic polyneuropathy associated with type 2 diabetes mellitus ([facility]) 09/15/2024 Refill [facility] [address] [place] [address] Rolanda Thakur MD from Last 3 Months [...] Procedure Name Priority Date/Time Associated Diagnosis Comments URINALYSIS, COMPLETE Routine 11/27/2024 9:48 AM EDT Recent urinary tract infection CULTURE, URINE, ROUTINE Routine 11/27/2024 9:48 AM EDT Recent urinary tract infection URINALYSIS WITH REFLEX TO MICROSCOPIC Routine 11/26/2024 6:53 PM EDT CULTURE, URINE, ROUTINE Routine 11/26/2024 6:53 PM EDT CULTURE, URINE, ROUTINE Routine 11/23/2024 9:05 AM EDT Type 2 diabetes mellitus without complication, without long-term current use of insulin ([facility]) UTI symptoms CBC WITH AUTO DIFFERENTIAL Routine 11/23/2024 9:00 AM EDT Type 2 diabetes mellitus without complication, without long-term current use of insulin ([facility]) BASIC METABOLIC PANEL Routine 11/23/2024 9:00 AM EDT Type 2 diabetes mellitus without complication, without long-term current use of insulin ([facility]) POCT GLUCOSE Routine 11/14/2024 4:29 PM EDT Type 2 diabetes mellitus without complication, without long-term current use of insulin ([facility]) BASIC METABOLIC PANEL Routine 11/09/2024 9:44 [...] Recently Relevant to Health Maintenance Results * (ABNORMAL) Urinalysis Complete (11/27/2024 9:48 AM EDT) Color Urine Yellow [facility] Appearance Urine Clear [facility] PH 5.5 5.0 - 9.0 [facility] Glucose Urine UA Negative Negative mg/dL [facility] Urine Blood Negative Negative [facility] Specific [place] - Urine 1.010 1.005 - 1.025 [facility] Urine Protein Negative Neg-Trace mg/dL [facility] Urine Ketones Negative Negative mg/dL [facility] Nitrite Urine Negative Negative [facility] Leukocyte Esterase Urine Trace(A) Negative [facility] RBC Urine 0-2 0 - 2 /HPF [facility] Urine WBC 0-5 0 - 5 /HPF [facility] Urine Squamous Epithelial Cell 0-2 0 - 2 /HPF [facility] Urine Bacteria None Seen None Seen [facility] Hyaline Casts, Urine 3-5 0 - 2 /LPF [facility] Urine (Urine, Random) 11/27/2024 9:48 AM EDT 11/27/2024 2:52 PM EDT us Ilsa Arana MD LAB URINE ORDERABLES Final Result [facility] [address] [place] [phone] * Culture, Urine, Routine (11/27/2024 9:48 AM EDT) Only the most recent of3 resultswithin the time period is included. Urine Urine specimen obtained by clean catch procedure / Unknown 11/27/2024 9:48 AM EDT 11/27/2024 2:52 PM EDT Comment:UACC Narrative [facility] - 11/29/2024 8:32 AM EDT Urine Culture Report Result Urine Culture > 100,000 cfu/ml Urine Culture Mixed bacterial hailey characteristic of Urine Culture urogenital contamination. Specimen Source: Urine clean catch Ilsa Arana MD LAB MICROBIOLOGY - GENERAL ORDERABLES Final Result Performing Organization Address [facility] Co de Phone Number [facility] [address] [place] [phone] * Urinalysis with Reflex to Microscopic (11/26/2024 6:53 PM EDT) Color Urine Yellow [facility] Appearance Urine Clear [facility] PH 6.0 5.0 - 9.0 [facility] Glucose Urine UA Negative Negative mg/dL [facility] Urine Blood Negative Negative [facility] Specific [place] - Urine <=1.005 1.005 - 1.025 [facility] Urine Protein Negative Neg-Trace mg/dL [facility] Urine Ketones Negative Negative mg/dL [facility] Nitrite Urine Negative Negative [facility] Leukocyte Esterase Urine Negative Negative [facility] 11/26/2024 6:53 PM EDT 11/27/2024 11:49 AM EDT Ilsa Arana MD LAB URINE ORDERABLES Final Result Performing Organization Address [facility] Co de Phone Number [facility] [address] [place] [phone] * (ABNORMAL) CBC auto differential (11/23/2024 9:00 AM EDT) Only the most recent of3 resultswithin the time period is included. White Blood Count 8.5 4.8 - 10.8 X10*3/uL [facility] Red Blood Count 4.27 4.20 - 5.50 X10*6/uL [facility] Hemoglobin 12.8 12.0 - 16.0 g/dl [facility] Hematocrit 37.0 37.0 - 47.0 % [facility] Mean Corpuscular Volume 86.7 80.0 - 98.0 fL [facility] Mean Corpuscular Hemoglobin 30.0 27.0 - 33.0 pg [facility] Mean Corpuscular HGB Conc 34.6 31.0 - 35.0 g/dl [facility] Red Cell Distribution Width 13.1 11.0 - 16.0 % [facility] Platelet Count 269 160 - 400 X10*3/uL [facility] Mean Platelet Volume 9.1(L) 9.4 - 12.3 fL [facility] Neutrophils Percent Auto 64.4 45 - 73 % [facility] Imm Gran Pct Auto 0.4 0.0 - 0.4 % [facility] Lymphocytes Percent Auto 23.8 20 - 40 % [facility] Monocytes Percent Auto 5.9 2 - 11 % [facility] Eosinophils Percent Auto 4.7(H) 0 - 4 % [facility] Basophils Percent Auto 0.8 0 - 2 % [facility] NRBC Pct Auto 0.0 0.0 - 0.2 /100WBC [facility] Neutrophils Absolute Auto 5.4 2.0 - 8.3 x10*3/uL [facility] Imm Gran Abs Auto 0.03 0.00 - 0.03 X10*3/uL [facility] Lymphocytes Absolute Auto 2.0 1.2 - 4.9 X10*3/uL [facility] Monocytes Absolute Auto 0.5 0.1 - 1.2 X10*3/uL [facility] Eosinophils Absolute Auto 0.4 0.0 - 0.4 X10*3/uL [facility] Basophils Absolute Auto 0.1 0.0 - 0.2 X10*3/uL [facility] NRBC Abs Auto 0.000 0.0 - 0.012 X10*3/uL [facility] Blood Venous blood specimen / Unknown 11/23/2024 9:00 AM EDT 11/23/2024 11:37 AM EDT Rolanda Thakur MD LAB BLOOD ORDERABLES Final Result Performing Organization Address [facility] de Phone Number [facility] [address] [place] [phone] * (ABNORMAL) Basic Metabolic Panel (11/23/2024 9:00 AM EDT) Only the most recent of2 resultswithin the time period is included. Sodium 135 135 - 145 mmol/L [facility] Potassium 4.4 3.3 - 5.1 mmol/L [facility] Chloride 103 96 - 108 mmol/L [facility] Carbon Dioxide 24 22 - 29 mmol/L [facility] Anion Gap 12 12 - 20 [facility] Urea Nitrogen (BUN) 21(H) 9 - 16 mg/dL [facility] Creatinine, Serum 0.89 0.5 - 1.4 mg/dL [facility] Estimated Glomerular Filt Rate >60 [facility] Comment:Chronic Kidney Disea se: Estimated GFR < 60 mL/min/1.90w2[facility] Kidney Disease: Estimated GFR < 15 mL/min/1.73m2 Glucose 161(H) 60 - 115 mg/dL [facility] Calcium 10.2 8.4 - 10.2 mg/dL [facility] Blood Venous blood specimen / Unknown 11/23/2024 9:00 AM EDT 11/23/2024 11:37 AM EDT Rolanda Thakur MD LAB BLOOD ORDERABLES Final Result Performing Organization Address [facility] Co de Phone Number [facility] [address] [place] [phone] * POCT Glucose (11/14/2024 4:29 PM EDT) Only the most recent of2 resultswithin the time period is included. Glucose Blood, POC 139 60 - 200 mg/dL Comment:Random QC Media Lot # [id number] Lot# Expiration Date 24 Blood Capillary blood specimen / Unknown 11/14/2024 4:29 PM EDT us Rolanda Thakur MD POINT OF CARE TEST ENTER/ED IT ORDERABLES Final Result * (ABNORMAL) SARS-CoV-2 RNA, Influenza A/B, and RSV RNA, Ql NAAT (11/09/2024 9:08 AM EDT) Only the most recent of2 resultswithin the time period is included. Influenza A PCR NEGATIVE Negative [facility] Influenza B PCR NEGATIVE Negative [facility] Resp Syncy Virus RNA Qual PCR NEGATIVE Negative [facility] SARS COV2 PCR POSITIVE(A) Negative [facility] Comment:All test results mus t [...] use by authorized laboratories.Testing performed on the [employer] GeneXpert utilizingreal-time RT-PCR.All SARS CoV2 and positive influenza A/B results arereported to [facility]. 11/09/2024 9:08 AM EDT 11/09/2024 1:15 PM EDT us Generic External Data Provider LAB MICROBIOLOGY - GENERAL ORDERABLES Final Result [facility] [address] [place] [phone] * (ABNORMAL) Basic Metabolic Panel, Fasting (09/24/2024 1:40 PM EST) Pathologist [facility] Sodium 139 135 - 145 mmol/L [facility] Potassium 3.8 3.3 - 5.1 mmol/L [facility] Chloride 106 96 - 108 mmol/L [facility] Carbon Dioxide 22 22 - 29 mmol/L [facility] Anion Gap 15 12 - 20 [facility] Urea Nitrogen (BUN) 13 9 - 16 mg/dL [facility] Creatinine, Serum 0.94 0.5 - 1.4 mg/dL [facility] Estimated Glomerular Filt Rate 58 [facility] Comment:Chronic Kidney Disea se: Estimated GFR < 60 mL/min/1.66e4Seennm Kidney Disease: Estimated GFR < 15 mL/min/1.73m2 Glucose Fasting 169(H) 60 - 99 mg/dL [facility] Comment:A fasting glucose of 126 mg/dl or greater on more than oneoccasion is considered diagnostic of diabetes. Calcium 9.9 8.4 - 10.2 mg/dL [facility] Blood Venous blood specimen / Unknown 09/24/2024 1:40 PM EST 09/24/2024 4:21 PM EST us Rolanda Thakur MD LAB BLOOD ORDERABLES Final Result Performing Organization Address City/[facility]/ZIP Co de Phone Number [facility] [address] [place] [phone] * TSH W/Reflex to FT4 (09/24/2024 1:40 PM EST) TSH reflex Free T4 0.38 0.32 - 4.0 uIU/mL [facility] Blood Venous blood specimen / Unknown 09/24/2024 1:40 PM EST 09/24/2024 4:21 PM EST us Rolanda Thakur MD LAB BLOOD ORDERABLES Final Result Performing Organization Address City/[facility]/ZIP Co de Phone Number [facility] [address] [place] [phone] * Aldosterone/Plasma Renin Activity Ratio, LC/MS/MS (09/24/2024 1:40 PM EST) Aldosterone 2 see note ng/dL [facility] Comment:Unable to flag abnor mal result(s), please refer to reference range(s) below:Adult Reference Ranges for Aldosterone, LC/MS/MS: Upright 8:00 - 10:00 am < or = 28 ng/dL Upright 4:00 - 6:00 pm < or = 21 ng/dL Supine 8:00 - 10:00 am 3 - 16 ng/dLTHIS TEST WAS PERFORMED AT:[employer] [id number] [place] [address]JUXGYJSTHEO PEDERSEN MD,PHD Plasma Renin Activity 0.52 0.25 - 5.82 ng/mL/h [facility] Aldosterone/Renin Ratio 3.8 0.9 - 28.9 Ratio [facility] Comment:This test was develo ped and its analytical performancecharacteristics have been determined by [employer] [place], [place]. It hasnot been cleared or approved by the U.S. Food and DrugAdministration. This assay has been validated pursuantto the CLIA regulations and is used for clinicalpurposes.THIS TEST WAS PERFORMED AT:[employer] [id number] [place] [id number] PEDERSEN MD,PHD Blood Venous blood specimen / Unknown 09/24/2024 1:40 PM EST 09/24/2024 4:21 PM EST us Rolanda Thakur MD LAB BLOOD ORDERABLES Final Result [facility] [address] [place] [phone] * Cologuard?? colon cancer screening (08/09/2024 8:30 AM EST) Cologuard Result Negative Negative 08/18/20 11:52 PM EST [email or web address] (CLIA #:[id number]) Comment: NEGATIVE TEST RESULT. A negative Cologuard [...] cancer. ??Following a negative Cologuard result, the [place] [employer] Society and U.S. Multi-Society Task Force screening guidelines recommend a Cologuard re-screening interval of 3 years. References: [place] [employer] Guideline for Colorectal Cancer Screening: https://www.cancer.org/cancer/icdsa-bgmkmd-iqtwat/awbjnltvz-cyuzjqhhv-iaubgrq/ac s-rec ommendations.html.; Santiago DK, Ileana PERERA, Emery LalaK, Colorectal Cancer Screening: Recommendations for Physicians and Patients from the U.S. Multi-Society Task Force on Colorectal Cancer Screening , Am J Gastroenterology 2017; 112:1019-9354. TEST DESCRIPTION: Composite algorithmic analysis of stool [...] (Dioni Kelly al, N Engl J Med 2014;370(14):6045-3066.) Cologuard may produce a false negative or false positive result (no colorectal cancer or precancerous polyp present at colonoscopy follow up). A negative Cologuard test result does not guarantee the absence of CRC or advanced adenoma (pre-cancer). The current Cologuard screening interval is every 3 years. ([place] [employer] and U.S. Multi-Society Task Force). Cologuard performance data in a 10,000 patient pivotal study using colonoscopy as the reference method can be accessed at the following location: www.[employer]/results. Additional description of the Cologuard test process, warnings and precautions can be found at www.[employer]. Stool specimen (specimen) 08/09/2024 8:30 AM EST 08/10/2024 2:47 PM EST us Rolanda Thakur MD LAB MOLECULAR DIAGNOSTICS O RDERABLES Final Result Performing Organization Address City/[facility]/ZIP Co de Phone Number [email or web address] (CLIA #:[id number]) [address] [place] [address], * Hepatitis C Antibody with Reflex to HCV, RNA, Quantitative, Real-Time PCR (07/17/2024 3:20 PM EST) Hepatitis C Antibody Nonreactive Nonreactive [facility] Comment:Antibodies to HCV no t detected; does not exclude early acuteHCV infection. Blood Venous blood specimen / Unknown 07/17/2024 3:20 PM EST 07/17/2024 5:23 PM EST us Rolanda Thakur MD LAB BLOOD ORDERABLES Final Result Performing Organization Address City/[facility] Co de Phone Number [facility] [address] [place] [phone] * (ABNORMAL) Lipid Panel, Standard (07/17/2024 3:20 PM EST) Triglycerides 89 <150 mg/dL [facility] Comment:Desirable Triglyceri de: less than 150 mg/dLBorderline High Triglyceride 150-199 mg/dLHigh Triglyceride: 200-499 mg/dLVery High Triglyceride: greater than or equal to 5OO mg/dL Cholesterol 193 <200 mg/dL [facility] Comment:Desirable Cholestero l: less than 200 mg/dLBorderline High Cholesterol: 200-239 mg/dLHigh Cholesterol: greater than 239 mg/dL LDL Cholesterol Calculated 111(H) <100 mg/dL [facility] Comment:Desirable LDL: less than 100 mg/dLNear Optimal/Above Optimal LDL: 110- 129 mg/dLBorderline High LDL: 130-159 mg/dLHigh LDL: 160-189 mg/dLVery High LDL: greater than or equal to 190 mg/dL HDL Cholesterol 65 >40 mg/dL [facility] Comment:Desirable HDL: great er than 40 mg/dL Note: This HDL assay may give artificially low results in patients with liver disease. Blood Venous blood specimen / Unknown 07/17/2024 3:20 PM EST 07/17/2024 5:23 PM EST us Rolanda Thakur MD LAB BLOOD ORDERABLES Final Result [facility] [address] [place] [phone] [phone] * Albumin, Random Urine W/Creatinine (07/17/2024 2:55 PM EST) Creatinine, Urine 38.88 mg/dL [facility] Microalbumin Urine <5.0 mg/L [facility] Microalbum Creatinine Ratio Ur TNP <30 ug/mg cr [facility] Comment:Unable to calculate albumin/creatinine ratio due to lowmicroalbumin or creatinine result. Urine (Urine, Random) 07/17/2024 2:55 PM EST 07/17/2024 5:25 PM EST us Rolanda Thakur MD LAB URINE ORDERABLES Final Result Performing Organization Address City/State/[facility] Co de Phone Number [facility] [address] [place] [address] [phone] * (ABNORMAL) POCT HGB A1C (07/06/2024 [...] Relevant to Health Maintenance Insurance [facility] MEDICARE REPLACEMENT [facility] MEDICARE ADVANTAGE HMO * Guarantor: Angely Pineda Account Type Relation to Patient Date of Phone Billing Address Personal/Family Self [address] [facility] [place] [address] * Guarantor: nAgely Pineda Account Type Relation to Patient Date of Phone Billing Address Personal/Family Self [address] [facility] [place] [address] [place] [address] Care Teams Gage Designer Relationship Specialty Start Date End Date Rolanda Thakur MD [address] [place] [address] [place] [address] PCP - General Internal Medicine 09/19/22
--- OUTSIDE RECORDS SUMMARY | 2024-12-13 08:02 | XMS_ITS | Encounter Summary ---
Author Organization [employer] Address [address] [place] [address] Care Team Providers Care Business Process Manager Name Role Phone Rolanda Thakur MD Primary Care Provider +1- [phone] Reason for Visit * Reason Onset Date Comments Call Back Request 11/17/2023 Encounter Details Date Type Department Care Team ([facility] st Contact Info) Description 11/17/2023 Telephone [facility] MEDICINE [address] [place] [address] Rolanda Thakur MD [address] [place] [address] Call Back Request Social History Tobacco Use [...] Message sent to PCP for review through [employer] portal * Telephone Encounter - Jenny Neff - 11/17/2023 8:06 AM EDT Tc from pt requesting a call back pt stated needs more information and clarifications 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 Please contact pt. documented in this encounter Plan of Treatment Not on file documented as of this encounter Visit Diagnoses Not on filedocumented in this encounter Care Teams Business Process Manager Relationship Specialty Start Date End Date Rolanda Thakur MD [address] [place] [address] PCP - General Internal Medicine 09/19/22 documented as of this encounter
--- OUTSIDE RECORDS SUMMARY | 2024-12-13 08:02 | XMS_ITS | Encounter Summary ---
Author Organization [employer] Address [address] [place] [address] Care Team Providers Care Casino Floor Walker Name Role Phone Rolanda Thakur MD Primary Care Provider +1- [phone] Reason for Visit * Reason Onset Date Comments Nurse Triage 12/12/2023 Encounter Details Date Type Department Care Team (Late st Contact Info) Description 12/12/2023 Telephone [facility] MEDICINE [address] [place] [address] Rolanda Thakur MD [address] [place] [address] Nurse Triage Social History Tobacco Use Types [...] from pt requesting to speak to PCP shaker operatorcopy manager in regards to scheduled sick visit tmr, states was advised to contact PCP before scheduled appt to see how pt is doing, pt stated they still has a severe cough. Toll Gate Tender did advised appt is still expected. Pt is scheduled tmr 12/15/23 for ( chest congestion, cough , yellow nasal drainage. ) Please contact at [phone] * Telephone Encounter - Viktoria Schultz RN [...] point. Pt is advised to come to [facility] today to be seen since open till 8pm. PT is not sure if will be able to do that. Toll Gate Tender contacted Haylie Barrientos [facility] and asked if would be possible to schedule Pt at [facility] 12/15/23 340pm apt which Pt would [...] on filedocumented in this encounter Care Teams Casino Floor Walker Relationship Specialty Start Date End Date Rolanda Thakur MD [address] [place] [address] PCP - General Internal Medicine 09/19/22 documented as of this encounter
--- OUTSIDE RECORDS SUMMARY | 2024-12-13 08:02 | XMS_ITS | Encounter Summary ---
Author Organization [employer] Address [address] [place] [address] Care Team Providers Care Catapult And Arresting Gear Officer Name Role Phone Rolanda Thakur MD Primary Care Provider +1- [phone] Reason for Visit * Reason Onset Date Comments FYI 10/11/2024 Encounter Details Date Type Department Care Team (Late st Contact Info) Description 10/11/2024 Telephone [facility] MEDICINE [address] [place] [address] Rolanda Thakur MD [address] [place] [address] FYI Social History Tobacco Use Types Packs/Day [...] documented as of this encounter Care Teams Catapult And Arresting Gear Officer Relationship Specialty Start Date End Date Rolanda Thakur MD [address] [place] [address] PCP - General Internal Medicine 09/19/22 documented as of this encounter
--- OUTSIDE RECORDS SUMMARY | 2024-12-13 08:02 | XMS_ITS | Encounter Summary ---
Author Organization [employer] Address [address] [place] [address] [place] [address] Care Team Providers Care Information Strategist Name Role Phone Rolanda Thakur MD Primary Care Provider +1- [phone] Encounter Details Date Type Department Care Team (Latest Contact Info) Description 08/17/2021 Abstract [facility] CONVERSIONS Dental, Provider, DDS Social History [...] on filedocumented in this encounter Care Teams Information Strategist Relationship Specialty Start Date End Date Rolanda Thakur MD [address] [facility] [place] [address] PCP - General Internal Medicine 09/19/22 documented as of this encounter
--- OUTSIDE RECORDS SUMMARY | 2024-12-13 08:02 | XMS_ITS | Encounter Summary ---
Author Organization [employer] Address [address] [place] [address] Care Team Providers Care Professor Of Criminal Justice Name Role Phone Rolanda Thakur MD Primary Care Provider +1- [phone] Reason for Referral * Consultation (Routine) - Closed Specialty Diagnoses / Procedures Referred By Contac t Referred To Contact Endocrinology Diagnoses Type 2 diabetes mellitus without complication, without long-term current use of insulin (CMS/HCC) Rolanda Thakur MD [address] [place] [address] Phone: tel: fax: [facility] [address] [place] [phone] Phone: tel: fax: Referral ID Status Reason Start Date Expiration Date V isits Requested Visits Authorized [id number] Closed Specialty Services Required 08/26/2024 08/26/2025 1 1 Encounter Details Date Type Department Care Team (Late st Contact Info) Description 08/26/2024 Orders Only [facility] CHC MED & PEDS [address] [place] [address] Rolanda Thakur MD [address] [place] [address] Type 2 diabetes mellitus without complication, without [...] complication, without long-term current use of insulin ([facility]) Expected: 08/26/2024 (Approximate), Expires: 08/26/2025 documented as of this encounter Visit Diagnoses Diagnosis Type 2 diabetes mellitus without complication, without long-term current use of insulin (CMS/[facility])- Primary documented in this encounter Additional Health Concerns Assessment Noted Time PHQ-9 Depression Total Score: 2 05/13/20 24 9:24 AM EDT documented as of this encounter Care Teams Professor Of Criminal Justice Relationship Specialty Start Date End Date Rolanda Thakur MD [address] [place] [address] PCP - General Internal Medicine 09/19/22 documented as of this encounter
--- OUTSIDE RECORDS SUMMARY | 2024-12-13 08:02 | XMS_ITS | Encounter Summary ---
Author Organization [employer] Address [address] [place] [address] Care Team Providers Care Sweatband Shaper Name Role Phone Rolanda Thakur MD Primary Care Provider +1- [phone] Reason for Visit * Reason Onset Date Comments Nurse Triage 09/24/2024 Encounter Details Date Type Department Care Team (Late st Contact Info) Description 09/24/2024 Telephone [facility] MEDICINE [address] [place] [address] Rolanda Thakur MD [address] [place] [address] Nurse Triage Social History Tobacco Use Types [...] WIC for today as no appts in [facility]. Pt states gets panic attacks if has to wait . Pt advised unfortunately no appts in [facility]> Unable to schedule ahead for WIC. Pt states will seek [facility] Walk IN clinic on [facility] in [place]. Will send to team as FYI to [...] acuity questions The caller accepted this outcome. [phone] documented in this encounter Plan of Treatment Not on file documented as of this encounter Visit Diagnoses Not on filedocumented in this encounter Additional Health Concerns Assessment Noted Time PHQ-9 Depression Total Score: 2 05/13/20 24 9:24 AM EDT documented as of this encounter Care Teams Sweatband Shaper Relationship Specialty Start Date End Date Rolanda Thakur MD [address] [place] [address] PCP - General Internal Medicine 09/19/22 documented as of this encounter
--- OUTSIDE RECORDS SUMMARY | 2024-12-13 08:02 | XMS_ITS | Encounter Summary ---
Author Organization [employer] Address [address] [place] [address] [place] [address] Care Team Providers Care Paint Line Supervisor Name Role Phone Rolanda Thakur MD Primary Care Provider +1- [phone] Encounter Details Date Type Department Care Team (Late st Contact Info) Description 12/07/2023 Telephone [facility] MEDICINE [address] [place] [phone] Rolanda Thakur MD [address] [place] [address] Social History Tobacco Use Types Packs/Day Years [...] on filedocumented in this encounter Care Teams Paint Line Supervisor Relationship Specialty Start Date End Date Rolanda Thakur MD [address] [place] [address] PCP - General Internal Medicine 09/19/22 documented as of this encounter
--- OUTSIDE RECORDS SUMMARY | 2024-12-13 08:02 | XMS_ITS | Encounter Summary ---
Author Organization [employer] Address [address] [place] [address] Care Team Providers Care Hand Bootmaker Name Role Phone Rolanda Thakur MD Primary Care Provider Reason for Referral * Consultation (Routine) - Closed Specialty Diagnoses / Procedures Referred By Contac t Referred To Contact Behavioral Health Diagnoses Anxiety Rolanda Thakur MD [address] [place] [address] Phone: tel: fax: Referral ID Status Reason Start Date Expiration Date V isits Requested Visits Authorized [id number] Closed Specialty Services Required 05/02/2024 05/02/2025 1 1 Encounter Details Date Type Department Care Team ([facility] Contact Info) Description 05/02/2024 Orders Only [facility] CHC MED & PEDS [address] [place] [address] Rolanda Thakur MD [address] [place] [address] Anxiety (Primary Dx) Social History Tobacco Use [...] unspecified documented in this encounter Care Teams Hand Bootmaker Relationship Specialty Start Date End Date Rolanda Thakur MD [address] [place] [address] PCP - General Internal Medicine 09/19/22 documented as of this encounter
--- OUTSIDE RECORDS SUMMARY | 2024-12-13 08:02 | XMS_ITS | Encounter Summary ---
Author Organization [employer] Address [address] [place] [address] Care Team Providers Care Locomotive Inspector Name Role Phone Rolanda Thakur MD Primary Care Provider +1- [phone] Reason for Visit * Reason Comments Med Refill Encounter Details Date Type Department Care Team (Late st Contact Info) Description 08/27/2024 Refill [facility] MEDICINE [address] [place] [address] Rolanda Thakur MD [address] [place], [place] [phone] Type 2 diabetes mellitus without complication, without long-term current use of insulin ([facility]) Social History Tobacco Use Types Packs/Day [...] insulin ([facility]) documented in this encounter Additional Health Concerns Assessment Noted Time PHQ-9 Depression Total Score: 2 05/13/20 24 9:24 AM EDT documented as of this encounter Care Teams Locomotive Inspector Relationship Specialty Start Date End Date Rolanda Thakur MD [address] [place] [address] PCP - General Internal Medicine 09/19/22 documented as of this encounter
--- OUTSIDE RECORDS SUMMARY | 2024-12-13 08:02 | XMS_ITS | Encounter Summary ---
Author Organization [employer] Address [address] [place] [address] [place] [address] Care Team Providers Care Blacktop Spreader Name Role Phone Rolanda Thakur MD Primary Care Provider Encounter Details Date Type Department Care Team ([facility] st Contact Info) Description 01/22/2024 Orders Only [facility] CHC MED & PEDS [address] [place] [address] Rolanda Thakur MD [address] [place] [address] Benign essential hypertension Social History Tobacco Use [...] AM EDT Narrative 02/19/2024 12:38 PM EDT ?[facility] ?[address] ?[place] [address] ?XRay Report ? Signed ? Patient: Angely Pineda ?MR#: [id number] ? : 1950 ?Acct:[id number] ? Age/Sex: 73 / F ?ADM Date: 02/19/24 ? Loc: HO.HHCX ? Attending Dr: Migdalia PALMER ? Ordering Physician: Migdalia Loza ?? Date of Service: 02/19/24 ?? Procedure(s): XR toe RT min 2V ?? Accession Number(s): [id number] ? cc: Migdalia Loza ? EXAMINATION: ?? [...] 1234 ? DD/ 112 ? TD/TT: ? Insulation Applicator: SS ? Procedure Note Darrell Fonseca - 02/19/2024 [facility] [address] [place] [address] XRay Report Signed Patient: Angely Pineda#: [id number] : 1Acct:[id number] Age/Sex: 73 / FADM Date: 02/19/24 Loc: HO.HHCX Attending Dr: Migdalia PALMER Ordering Physician: Migdalia Loza Date of Service: 02/19/24 Procedure(s): XR toe RT min 2V Accession Number(s): [id number] cc: Migdalia Loza EXAMINATION: BILATERAL TOES CLINICAL [...] in OV> 02/19/24 1234 DD/ 1122 TD/TT: Insulation Applicator: SS Migdalia PALMER IMG XR PROCEDURES Edited Resul t - Final documented in this encounter Visit Diagnoses Diagnosis Benign essential hypertension Essential hypertension, benign documented in this encounter Care Teams Blacktop Spreader Relationship Specialty Start Date End Date Rolanda Thakur MD [address] [place] [address] PCP - General Internal Medicine 09/19/22 documented as of this encounter
--- OUTSIDE RECORDS SUMMARY | 2024-12-13 08:02 | XMS_ITS | Encounter Summary ---
Author Organization [employer] Address [address] [place] [address] Care Team Providers Care Head Waiter/Waitress Banquet Name Role Phone Rolanda Thakur MD Primary Care Provider Encounter Details Date Type Department Care Team ([facility] st Contact Info) Description 08/18/2023 Orders Only [facility] CHC MED & PEDS [address] [place] [address] Rolanda Thakur MD [address] [place] [address] Social History Tobacco Use Types Packs/Day Years [...] on filedocumented in this encounter Care Teams Head Waiter/Waitress Banquet Relationship Specialty Start Date End Date Rolanda Thakur MD [address] [place] [address] PCP - General Internal Medicine 09/19/22 documented as of this encounter
--- OUTSIDE RECORDS SUMMARY | 2024-12-13 08:02 | XMS_ITS | Encounter Summary ---
Author Organization [employer] Address [address] [place] [address] Care Team Providers Care Telephone Ad Taker Name Role Phone Rolanda Thakur MD Primary Care Provider +1- [phone] Reason for Visit * Reason Onset Date Comments Created In Error 04/29/2024 Encounter Details Date Type Department Care Team (Late st Contact Info) Description 04/29/2024 Telephone [facility] MEDICINE [address] [place], [place] [phone] Rolanda Thakur MD [address] [place], [place] [phone] Created In Error Social History Tobacco Use [...] on filedocumented in this encounter Care Teams Telephone Ad Taker Relationship Specialty Start Date End Date Rolanda Thakur MD [address] [place] [address] PCP - General Internal Medicine 09/19/22 documented as of this encounter
--- OUTSIDE RECORDS SUMMARY | 2024-12-13 08:02 | XMS_ITS | Encounter Summary ---
Author Organization [employer] Address [address] [place] [address] [place] [address] Care Team Providers Care Alignment Mechanic Name Role Phone Rolanda Thakur MD Primary Care Provider +1- [phone] Encounter Details Date Type Department Care Team (Late st Contact Info) Description 12/07/2023 Telephone [facility] MEDICINE [address] [place] [address] [phone] Rolanda Thakur MD [address] [place] [address] Social History Tobacco Use Types Packs/Day Years [...] on filedocumented in this encounter Care Teams Alignment Mechanic Relationship Specialty Start Date End Date Rolanda Thakur MD [address] [place] [address] PCP - General Internal Medicine 09/19/22 documented as of this encounter
--- OUTSIDE RECORDS SUMMARY | 2024-12-13 08:02 | XMS_ITS | Encounter Summary ---
Author Organization [employer] Address [address] [place] [address] 7 [place] [address] Care Team Providers Care Supervisor Microfilm Duplicating Unit Name Role Phone Rolanda Thakur MD Primary Care Provider +1- [phone] Encounter Details Date Type Department Care Team ([facility] Contact Info) Description 10/08/2024 Telephone [facility] CHC MED & PEDS [address] [place] [address] Rolanda Thakur MD [address] [place] [address] Social History Tobacco Use Types Packs/Day Years [...] as of this encounter Care Teams Supervisor Microfilm Duplicating Unit Relationship Specialty Start Date End Date Rolanda Thakur MD [address] [place] [address] PCP - General Internal Medicine 09/19/22 documented as of this encounter
--- OUTSIDE RECORDS SUMMARY | 2024-12-13 08:02 | XMS_ITS | Encounter Summary ---
Author Organization [employer] Address [address] [place] [address] [place] [address] Care Team Providers Care Premium Note Interest Calculator Clerk Name Role Phone Rolanda Thakur MD Primary Care Provider Reason for Visit * Reason Onset Date Comments Medication Question 12/08/2022 Encounter Details Date Type Department Care Team ([facility] st Contact Info) Description 12/08/2022 Telephone [facility] CHC MED & PEDS [address] [place] [address] Rolanda Thakur MD [address] [place] [address] Medication Question Social History Tobacco Use Types [...] on filedocumented in this encounter Care Teams Premium Note Interest Calculator Clerk Relationship Specialty Start Date End Date Rolanda Thakur MD [address] [place] [address] PCP - General Internal Medicine 09/19/22 documented as of this encounter
--- OUTSIDE RECORDS SUMMARY | 2024-12-13 08:02 | XMS_ITS | Encounter Summary ---
Author Organization [employer] Address [address] [facility] 7 [place] [address] Care Team Providers Care Suspect Artist Supervisor Name Role Phone Rolanda Thakur MD Primary Care Provider +1- [phone] Reason for Visit * Reason Onset Date Comments Durable Medical Equipment 04/29/2024 Encounter Details Date Type Department Care Team (Late st Contact Info) Description 04/29/2024 Telephone [facility] MEDICINE [address] [place] [address] Rolanda Thakur MD [address] [place] [address] Durable Medical Equipment Social History Tobacco Use [...] - 04/29/2024 3:34 PM EDT Tc from [facility] pharmacy stating pt is requesting blood pressure monitor but they don't have a script. If any questions you can contact [employer] at [phone]. documented in this encounter Plan of Treatment Not on file documented as of this encounter Visit Diagnoses Not on filedocumented in this encounter Care Teams Suspect Artist Supervisor Relationship Specialty Start Date End Date Rolanda Thakur MD [address] [place] [address] PCP - General Internal Medicine 09/19/22 documented as of this encounter
--- NOTE | 2024-12-13 08:04 | MHC.OFFWIV ---
Intake Vital Signs 12/13/24 08:06 Height 5 ft 4 in Weight 148 lb BMI 25.4 BP 146/76 H Blood Pressure Location Lt brachial Position Sitting Pulse 71 Pulse Source Pulse Oximeter Pulse Oximetry (%) 98 Oxygen Delivery Method Room Air Intake Visit Reasons: EP Constant panic attacks, chest tightness Intake Note: Patient here for constant panic attacks and elevated bp. Patient Tobacco Use Status: Never used Tobacco Allergies ciprofloxacin Allergy (Verified 12/13/24 08:12) Unknown sulfamethoxazole [From Bactrim] Allergy (Verified 12/13/24 08:12) Unknown trimethoprim [From Bactrim] Allergy (Verified 12/13/24 08:12) Unknown gabapentin [GABAPENTIN] Adverse Reaction (Mild, Verified 12/13/24 08:12) NAUSEA acetaminophen [From PERCOCET] Adverse Reaction (Unknown, Verified 12/13/24 08:12) VOMITTING codeine [CODEINE] Adverse Reaction (Unknown, Verified 12/13/24 08:12) VOMITTING meperidine [From DEMEROL] Adverse Reaction (Unknown, Verified 12/13/24 08:12) VOMITTING morphine [MORPHINE] Adverse Reaction (Unknown, Verified 12/13/24 08:12) CANT OPEN HER EYES oxycodone [From PERCOCET] Adverse Reaction (Unknown, Verified 12/13/24 08:12) VOMITTING scallops [SCALLOPS] Adverse Reaction (Unknown, Verified 12/13/24 08:12) ABD PAIN Do you need a note to return to daycare/school/sports/work: No HPI EP Constant panic attacks, chest tightness HPI Details This is a 74-year-old female patient who presents to the walk-in clinic today with report of increasing frequency of panic attacks, particularly over the last 2 days. This initially stemmed from a cataract surgery that she had last summer, which sounds particularly traumatizing due to patient having inadequate anesthesia. She is following up at the head sulfide operator soon, and she feels she may have a hard time returning to the office. Also, this time of year is difficult for her, as it is the anniversary of both her mother and brothers deaths. She recently changed jobs, and took a significant pay cut, which has been challenging for her. She is having some difficulties with communicating with her current PCP and management of her diabetes. Patient states that yesterday, she was out to breakfast with her daughter, and she felt as if a panic attack was coming on. She felt chest tightness, and took her blood pressure, which was 212/112. She took a clonazepam, and by the time she got home, her SBP was down to 105. She requests an EKG as she is worried about this event from yesterday. She denies any current chest pain, or shortness of breath. She continues to take amlodipine and clonidine for BP. Followed by [facility]. States that she would like a therapist, however can not forward one at this time. 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 Tobacco Use Status: Never used Tobacco Review of Systems Const All systems reviewed & are unremarkable except as noted in HPI and below Physical Exam Vital Signs: Last Vital Signs Pulse 71 12/13/24 08:06 BP 180/96 H 12/13/24 08:06 Pulse Ox 98 12/13/24 08:06 Oxygen Delivery Method Room Air 12/13/24 08:06 BMI result Body Mass Index 25.4 Const General: cooperative, healthy appearing, comfortable, no acute distress and anxious HEENT Head: Yes normal to inspection Ears: hearing grossly normal bilaterally Resp Effort & Inspection: normal respiratory effort Auscultation: clear to auscultation bilaterally Cardio Jugular venous distension: no JVD Palpation: normal PMI Rate: regular rate Rhythm: regular rhythm Skin General skin exam: no rashes or lesions noted Neuro General: no focal motor deficits Extrem General: Yes no clubbing, cyanosis or edema Psych Appearance: grossly normal Mental Status: mental status grossly normal Speech and movement: Normal speech and movement present Affect: Anxious affect present Attitude: cooperative Thought process: Normal thought process present Thought content: Normal thought content present Insight: Good insight present (Psych) Judgement: Good judgement present (Psych) Assessment & Plan Assessment & Plan (1) Panic attacks: Code(s): F41.0 - Panic disorder [episodic paroxysmal anxiety] Plan: Patient having an increase in panic attacks recently. She showed me her blood pressure logs, and they seemed to be quite irregular, with systolics in the 200s, and later in the 90s. I have recommended she follow up with her industrial economics teacher at [facility]. She sent a message to them yesterday and is waiting to hear back. EKG done in the office today shows sinus bradycardia, similar in comparison to previous EKG in medical record. No chest pain or shortness of breath. No dizziness. Physical exam is normal. We had a lengthy discussion regarding stress management and my recommendation for therapy. Community health navigator Sonia spoke to patient in the office ragarding available resources. Info provided on [facility] in [place], as well as [facility] in [place]. Patient is going to see if she can establish care with primary care provider at our [place] location. Information provided. Orders: Orders AMB EKG-In Office Today R07.89 - Other chest pain Coding Level of Care Code Est Pt Level 4 (19101) Diagnoses Panic attacks F41.0
[2024-12-13 08:06] VITALS: BP 146/76; PULSE 71; O2SAT 98; BMI 25.4
== END 2024-12-13 09:55 | disposition home or self-care (01) ==
PROVIDERS: PCP Internal Medicine; Visit Provider Nurse Practitioner Family
DX: F41.0 Panic disorder [episodic paroxysmal anxiety] (principal)

== ENCOUNTER → 2024-12-13 07:59 | Outpatient (BNVA) | payer MEDICARE, SELFPAY | PROVIDERS: PCP Internal Medicine; Visit Provider Nurse Practitioner Family | DX: F41.0 Panic disorder [episodic paroxysmal anxiety] (principal) | CPT/HCPCS: 99212 ==

== ENCOUNTER 2025-01-25 12:19 | Outpatient (AMB) | payer MEDICARE, SELFPAY ==
[2025-01-25 12:45] VITALS: BP 112/48; PULSE 63; RESP 16; TEMP 36.7; O2SAT 98; BMI 26.1
--- NOTE | 2025-01-25 12:45 | AM.OFFWIN_ITS ---
Intake Vital Signs 01/25/25 12:45 Height 5 ft 4 in Weight 152 lb BMI 26.1 BP 112/48 L Blood Pressure Location Lt brachial Position Sitting Respiration 16 Pulse 63 Pulse Source Pulse Oximeter Temp 98.1 F Temp Source Oral Pulse Oximetry (%) 98 Oxygen Delivery Method Room Air Intake Visit Reasons: EP-Low iron Intake Note: Pt is here today fatigue, frequent urine and thrist x3days Patient Tobacco Use Status: Never used Tobacco Allergies ciprofloxacin Allergy (Verified 01/25/25 12:49) Unknown sulfamethoxazole [From Bactrim] Allergy (Verified 01/25/25 12:49) Unknown trimethoprim [From Bactrim] Allergy (Verified 01/25/25 12:49) Unknown gabapentin [GABAPENTIN] Adverse Reaction (Mild, Verified 01/25/25 12:49) NAUSEA acetaminophen [From PERCOCET] Adverse Reaction (Unknown, Verified 01/25/25 12:49) VOMITTING codeine [CODEINE] Adverse Reaction (Unknown, Verified 01/25/25 12:49) VOMITTING meperidine [From DEMEROL] Adverse Reaction (Unknown, Verified 01/25/25 12:49) VOMITTING morphine [MORPHINE] Adverse Reaction (Unknown, Verified 01/25/25 12:49) CANT OPEN HER EYES oxycodone [From PERCOCET] Adverse Reaction (Unknown, Verified 01/25/25 12:49) VOMITTING scallops [SCALLOPS] Adverse Reaction (Unknown, Verified 01/25/25 12:49) ABD PAIN HPI EP-Low iron HPI Details Patient is a 74-year-old female with history of type 2 diabetes, hypertension, depression, who comes to the walk-in clinic complaining of feeling tired, with frequent urination and thirsty for the last 3 days. 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 Tobacco Use Status: Never used Tobacco Physical Exam Vital Signs: Last Vital Signs Temp 98.1 F 01/25/25 12:45 Pulse 63 01/25/25 12:45 Resp 16 01/25/25 12:45 BP 112/48 L 01/25/25 12:45 Pulse Ox 98 01/25/25 12:45 Oxygen Delivery Method Room Air 01/25/25 12:45 BMI result Body Mass Index 26.1 Results AMB Urinalysis, Automated UA Leukoctes 0 Ean/uL Last Edit by Lesli Fuentes, [employer] on 01/25/25 13:18 UA Nitrite Negative Last Edit by Lesli Fuentes, [facility] on 01/25/25 13:18 UA Urobilinogen 0.2 mg/dL Last Edit by Lesli Fuentes, [facility] on 01/25/25 13:18 UA Protein 0 mg/dL Last Edit by Lesli Fuentes, [facility] on 01/25/25 13:18 UA pH 6.0 Last Edit by Lseli Fuentes, [facility] on 01/25/25 13:18 UA Blood 0 Jadon/uL Last Edit by Lesli Fuentes, [facility] on 01/25/25 13:18 UA Specific [place] 1.010 Last Edit by Lesli Fuentes, [facility] on 01/25/25 13:18 UA Ketone Negative Last Edit by Lesli Fuentes, [facility] on 01/25/25 13:18 UA Bilirubin 0 mg/dL Last Edit by Lesli Fuentes, [facility] on 01/25/25 13:18 UA Glucose 0 mg/dL Last Edit by Lesli Fuentes, [facility] on 01/25/25 13:18 Assessment & Plan Assessment & Plan Orders: Orders AMB Urinalysis Automated Today Z13.9 - Encounter for screening, unspecified Coding Level of Care Code Est Pt Level 4 (01601)
== END 2025-01-25 14:18 | disposition home or self-care (01) ==
LOC: HO.HMCWIC 12:19
PROVIDERS: PCP Internal Medicine; Visit Provider Physician Assistant Medical
DX: Z13.9 Encounter for screening, unspecified (principal)

== ENCOUNTER 2025-01-25 12:19 | Outpatient (REF) | payer MEDICARE, SELFPAY ==
[2025-01-25 15:29] LABS: Anion Gap 13 (12-20); Blood Urea Nitrogen 18 mg/dL (9-16); Calcium 9.3 mg/dL (8.4-10.2); Carbon Dioxide 20 mmol/L (22-29); Chloride 103 mmol/L (96-108); Estimated Glomerular Filt Rate > 60; Glucose Random 102 mg/dL (60-115); Potassium 4.5 mmol/L (3.3-5.1); Sodium 131 mmol/L (135-145)
== END 2025-01-25 12:20 | disposition home or self-care (01) ==
LOC: HO.HMGCLDS 12:19
PROVIDERS: PCP Internal Medicine; Visit Provider Physician Assistant Medical
DX: R35.0 Frequency of micturition (principal); R53.83 Other fatigue; Z13.9 Encounter for screening, unspecified
CPT/HCPCS: 36415; 80048; 81003; 99212

== ENCOUNTER 2025-02-05 12:15 | Outpatient (REF) | payer MEDICARE, SELFPAY ==
[2025-02-05 13:51] LABS: Estimated Average Glucose 166 mg/dL; Hemoglobin A1c % 7.4 % (<6.0)
[2025-02-05 14:06] LABS: Anion Gap 11 (12-20); Blood Urea Nitrogen 15 mg/dL (9-16); Calcium 9.5 mg/dL (8.4-10.2); Carbon Dioxide 23 mmol/L (22-29); Chloride 104 mmol/L (96-108); Estimated Glomerular Filt Rate > 60; Glucose Random 177 mg/dL (60-115); Potassium 4.9 mmol/L (3.3-5.1); Sodium 133 mmol/L (135-145)
[2025-02-05 14:12] LABS: Thyroid Stimulating Hormone 6.33 uIU/mL (0.32-4.0)
== END 2025-02-05 12:16 | disposition home or self-care (01) ==
LOC: HO.HHCL 12:15
PROVIDERS: PCP Internal Medicine; Visit Provider Registered Nurse
DX: E03.9 Hypothyroidism, unspecified (principal); E87.1 Hypo-osmolality and hyponatremia; E11.9 Type 2 diabetes mellitus without complications
CPT/HCPCS: 36415; 80048; 83036; 84443

== ENCOUNTER 2025-02-13 10:50 | Outpatient (AMB) | payer MEDICARE, SELFPAY ==
[2025-02-13 10:53] VITALS: BP 130/62; PULSE 64; TEMP 36.9; O2SAT 98; BMI 25.6
--- NOTE | 2025-02-13 10:53 | AM.OFFWIN_ITS ---
Intake Vital Signs 02/13/25 10:53 Height 5 ft 4 in Weight 149 lb BMI 25.6 BP 130/62 Blood Pressure Location Rt brachial Position Sitting Pulse 64 Pulse Source Pulse Oximeter Temp 98.4 F Temp Source Oral Pulse Oximetry (%) 98 Oxygen Delivery Method Room Air Intake Visit Reasons: EP LT knee pain/injury Intake Note: pt presents LT knee pain x2 days and worsened yesterday after activity, wearing charcoal patch and knee brace. pt reports long hx of lt knee injuries and meniscal repair Patient Tobacco Use Status: Never used Tobacco Allergies ciprofloxacin Allergy (Verified 02/13/25 10:58) Unknown sulfamethoxazole (From Bactrim) Allergy (Verified 02/13/25 10:58) Unknown trimethoprim (From Bactrim) Allergy (Verified 02/13/25 10:58) Unknown gabapentin (GABAPENTIN) Adverse Reaction (Mild, Verified 02/13/25 10:58) NAUSEA acetaminophen (From PERCOCET) Adverse Reaction (Unknown, Verified 02/13/25 10:58) VOMITTING codeine (CODEINE) Adverse Reaction (Unknown, Verified 02/13/25 10:58) VOMITTING meperidine (From DEMEROL) Adverse Reaction (Unknown, Verified 02/13/25 10:58) VOMITTING morphine (MORPHINE) Adverse Reaction (Unknown, Verified 02/13/25 10:58) CANT OPEN HER EYES oxycodone (From PERCOCET) Adverse Reaction (Unknown, Verified 02/13/25 10:58) VOMITTING scallops (SCALLOPS) Adverse Reaction (Unknown, Verified 02/13/25 10:58) ABD PAIN Do you need a note to return to daycare/school/sports/work: No HPI HPI Comments History of Present Illness Details 74 y/o Female patient who presents to [facility] walk in clinic with c/o LT knee pain for 2 days - pain worsened yesterday after activity. He is currently wearing charcoal patch and knee brace. Reports long h/o Left Knee injuries plus repair. 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 Tobacco Use Status: Never used Tobacco Review of Systems Const All systems reviewed & are unremarkable except as noted in HPI and below Physical Exam Vital Signs: Last Vital Signs Temp 98.4 F 02/13/25 10:53 Pulse 64 02/13/25 10:53 BP 130/62 02/13/25 10:53 Pulse Ox 98 02/13/25 10:53 Oxygen Delivery Method Room Air 02/13/25 10:53 BMI result Body Mass Index 25.6 Const General: no acute distress Nutritional Appearance: well nourished Orientation/consciousness: patient oriented x3 Neuro General: patient oriented x3 Extrem Left lower extremity: knee Details: normal to inspection, tenderness Location: of the patella and of the medial joint line and normal ROM; no swelling, no deformity and no unusual warmth Psych Speech and movement: Normal speech and movement present Assessment & Plan Assessment & Plan (1) Osteoarthritis of left knee: Code(s): M17.12 - Unilateral primary osteoarthritis, left knee Qualifiers: Osteoarthritis type: primary Qualified Code(s): M17.12 - Unilateral primary osteoarthritis, left knee Plan: Ordered Xray Knee Knee Brace applied Ice/Hot NSAIDs and Acetaminophen for pain relief Rest joint. Plan F/U with PCP. Orders: Orders XR knee LT 2V Today M17.12 - Unilateral primary osteoarthritis, left knee Medications: New meloxicam 7.5 mg PO DAILY 10 tabs 0RF 10 days M17.12 - Unilateral primary osteoarthritis, left knee diclofenac sodium 1% (Voltaren Arthritis Pain) APPLY TO THE MOST PAINFUL AREA TWICE A DAY. 2 grams topical BID 100 grams 0RF M17.12 - Unilateral primary osteoarthritis, left knee Coding Level of Care Code Est Pt Level 4 (39974) Diagnoses Primary osteoarthritis of left knee M17.12 Osteoarthritis type: primary Time Spent (min) 20
== END 2025-02-13 12:15 | disposition home or self-care (01) ==
PROVIDERS: PCP Internal Medicine; Visit Provider Nurse Practitioner Family
DX: M17.12 Unilateral primary osteoarthritis, left knee (principal)

== ENCOUNTER 2025-02-13 10:50 | Outpatient (REF) | payer MEDICARE, SELFPAY ==
--- NOTE | ~2025-02-13 | XR_ITS ---
EXAMINATION: XR KNEE, LEFT CLINICAL INFORMATION: M17.12 - Unilateral primary osteoarthritis, left knee COMPARISON: None available. TECHNIQUE: AP and lateral x-rays of the lower extremity joint, of the left knee. FINDINGS: Small amount joint fluid is evident. There is mild narrowing of the lateral joint space. Small marginal ossified is visible at the superior pole of patella. Minimal osteophyte formation is present along the medial margin of the tibial plateau. XR/XR knee LT 2V IMPRESSION: Minimal degenerative change, early osteoarthritis. Small joint effusion. Electronically signed by: Theodore Mercer MD 02/13/2025 12:26 PM EDT
== END 2025-02-13 10:51 | disposition home or self-care (01) ==
LOC: HO.HMGCX 10:50
PROVIDERS: PCP Internal Medicine; Visit Provider Nurse Practitioner Family
DX: M17.12 Unilateral primary osteoarthritis, left knee (principal)
CPT/HCPCS: 73560; 99212

== ENCOUNTER → 2025-02-13 11:35 | Outpatient (BNV) | payer MEDICARE, SELFPAY | PROVIDERS: PCP Internal Medicine; Visit Provider Radiology Diagnostic Radiology | DX: M17.12 Unilateral primary osteoarthritis, left knee (principal) | CPT/HCPCS: 73560 ==

== ENCOUNTER 2025-03-08 09:05 | Outpatient (AMB) | payer MEDICARE, SELFPAY ==
[2025-03-08 09:06] VITALS: BP 122/62; PULSE 56; RESP 16; TEMP 36.4; O2SAT 99; BMI 25.6
--- NOTE | 2025-03-08 09:06 | AM.OFFWIN_ITS ---
Intake Vital Signs 03/08/25 09:06 Height 5 ft 4 in Weight 149 lb BMI 25.6 BP 122/62 Blood Pressure Location Rt brachial Position Sitting Respiration 16 Pulse 56 Pulse Source Pulse Oximeter Temp 97.6 F Temp Source Oral Pulse Oximetry (%) 99 Oxygen Delivery Method Room Air Intake Visit Reasons: EP-Lt hand pain Intake Note: Pt is here today c/o Lt hand pain since last night: no injury noted Patient Tobacco Use Status: Never used Tobacco Allergies meloxicam Allergy (Mild, Verified 03/08/25 09:19) Dizziness ciprofloxacin Allergy (Verified 03/08/25 09:19) Unknown sulfamethoxazole (From Bactrim) Allergy (Verified 03/08/25 09:19) Unknown trimethoprim (From Bactrim) Allergy (Verified 03/08/25 09:19) Unknown gabapentin (GABAPENTIN) Adverse Reaction (Mild, Verified 03/08/25 09:19) NAUSEA acetaminophen (From PERCOCET) Adverse Reaction (Unknown, Verified 03/08/25 09:19) VOMITTING codeine (CODEINE) Adverse Reaction (Unknown, Verified 03/08/25 09:19) VOMITTING meperidine (From DEMEROL) Adverse Reaction (Unknown, Verified 03/08/25 09:19) VOMITTING morphine (MORPHINE) Adverse Reaction (Unknown, Verified 03/08/25 09:19) CANT OPEN HER EYES oxycodone (From PERCOCET) Adverse Reaction (Unknown, Verified 03/08/25 09:19) VOMITTING scallops (SCALLOPS) Adverse Reaction (Unknown, Verified 03/08/25 09:19) ABD PAIN HPI HPI Comments History of Present Illness Details This is a 74-year-old left-hand dominant female with a past medical history of hypothyroidism, hypertension, anxiety and kps-vyuhfva-pemcgbnxz diabetes presenting for evaluation of left hand pain that started yesterday. 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 Patient states that she developed discomfort on the palmar surface of her left hand for which she has not taken any bctg-klg-phghkyb medication. She denies any additional injury or trauma. 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 Skin/Breast Reports system reviewed and no additional complaints, except as documented Neuro Reports no additional complaints Psych Reports no additional complaints Physical Exam Vital Signs: Last Vital Signs Temp 97.6 F 03/08/25 09:06 Pulse 56 03/08/25 09:06 Resp 16 03/08/25 09:06 BP 122/62 03/08/25 09:06 Pulse Ox 99 03/08/25 09:06 Oxygen Delivery Method Room Air 03/08/25 09:06 BMI result Body Mass Index 25.6 Const General: cooperative, healthy appearing, comfortable, no acute distress, well developed, alert, awake, Physically active and other (anxious affect) Nutritional Appearance: average body habitus Orientation/consciousness: patient oriented x3 Limitations: no limitations Skin Other: No erythema, edema or ecchymosis of the left hand. General skin exam: no rashes or lesions noted Nails: normal Neuro General: patient oriented x3 Extrem Other: There is minimal pain to palpation at the base of the 5th metacarpal, palmar surface with a palpable nodule that is not fixed and mildly tender, back tender cylinder strength 5/5 bilaterally, no bony pain elicited, active ROM left wrist intact without pain elicited. General: Yes normal to inspection, Yes full ROM and Yes capillary refill normal (Left hand) Psych Appearance: grossly normal Mental Status: mental status grossly normal Affect: Anxious affect present Insight: Good insight present (Psych) Judgement: Good judgement present (Psych) Assessment & Plan Assessment & Plan (1) Left hand pain: Comment: Given this patient's history coupled with her examination, no further imaging is warranted at this time. Patient likely exacerbated a tendon in the palmar surface of her left hand. Patient instructed to use warm compresses, Tylenol or ibuprofen. Code(s): M79.642 - Pain in left hand Plan: Warm compresses, Tylenol or ibuprofen as needed for discomfort. Coding Level of Care Code Est Pt Level 3 (60217) Diagnoses Left hand pain M79.642 Time Spent (min) 20
--- OUTSIDE RECORDS SUMMARY | 2025-03-08 09:06 | XMS_ITS | Clinical Summary ---
Author Organization [facility] Address [address] [place], [place] [id number] Care Team Providers Care Back End Web Developer Name Role Phone Rahel Hough MD Primary Care Provider [phone] Allergies Active Allergy Reactions Criticality Noted Date [...] mg by mouth daily. 0 09/09/2020 Active Chandler-3 Fatty Acids (FISH OIL) 1000 MG CAPS [...] Screening (DEXA Scan) 2016 Influenza Vaccine (#1) 2025 , 08/23/2019, 07/02/2018, Additional history exists RSV [...] age to complete this topic Care Teams Back End Web Developer Relationship Specialty Start Date End Date Rahel Hough MD [address] [facility] [place] [address] PCP - General Internal Medicine 11/20/20
--- OUTSIDE RECORDS SUMMARY | 2025-03-08 09:06 | XMS_ITS ---
Author Name [facility] Organization Unknown Encounters Encounter Type Encounter Reason Primary Diagnosis Location Date Ambulatory [facility] [place] 01/31/2023 Ambulatory [facility] [place] 01/31/2023
--- OUTSIDE RECORDS SUMMARY | 2025-03-08 09:06 | XMS_ITS | Clinical Summary ---
Author Organization [facility] Facility Address [address] [place] [id number] Care Team Providers Care Director Toxicology Name Role Phone Maren Hough MD Primary Care Provider [phone] Social History Tobacco Use Types Packs/Day Years [...] Visual Foot Exam 06/19/2022 Influenza Vaccine (#1) 2025 9, 07/22/2008 Hepatitis B Vaccine Aged Out No longe r eligible based on patient's age to complete this topic Insurance [facility] Medicare [facility] Medicare Care Teams Director Toxicology Relationship Specialty Start Date End Date Maren Hough MD [address] [place] [id number] PCP - General Family Medicine 06/20/22
--- OUTSIDE RECORDS SUMMARY | 2025-03-08 09:06 | XMS_ITS | Clinical Summary ---
Author Organization 300 [facility] Address [address] [place] [address] Phone Care Team Providers Care Oyster Sorter Name Role Phone Rolanda Thakur MD Primary Care Provider [phone] Allergies Active Allergy Reactions Criticality Noted Date [...] by mouth if needed for anxiety. Active empagliflozin (Jardiance) 10 mg tablet Take 1 tablet (10 mg total) by mouth 1 (one) time each day in the morning. Active Active Problems Problem Noted Date Diagnosed [...] aware that this will likely be an ctr-ez-teegho cost and feels as though she can afford it. I will review results and determine need for future follow-up. In the meantime she would like to hold off on statin therapy which I think is totally reasonable. Orders: ECG 12 lead Pure hypercholesterolemia 07/08/2024 Assessment & Plan (07/08/2024 4:42 PM EST): See plan above. Encounters Date Type Department Care Team Description 01/02/2025 Telephone [facility] Cardiology [facility] - [facility] [address] [phone] Emeka Escoto NP Scheduling 12/17/2024 3:41 PM EDT - 12/17/2024 11:59 PM EDT [facility] [address] [phone] Encounter for screening mammogram for breast cancer Discharge Disposition: Home or Self Care 12/16/2024 Telephone [facility] Cardiology [facility] [address] [place] [phone] Rolanda Thakur MD Medical Records 12/13/2024 Telephone [facility] - [facility] [address] 300 [facility] 154 [place] [phone] Nikki Rawls MD Hypertension from Last 3 Months Family History Medical History Relation Name Comments Heart failure Mother Other: unknown heart condition Sister Relation Name Status Comments Mother Sister Social History Tobacco Use Types Packs/Day Years Used Date Smoking Tobacco: Never Smokeless Tobacco: Never Alcohol Use Standard Drinks/Week Comments Yes 0 (1 standard drink = 0.6 oz pur e alcohol) rarely Comments No Sex and Gender Information Value Date Recorded Sex Assigned at Female 07/31/2024 8:18 AM EST Legal Sex Female 2:05 PM EST Gender Identity Female 07/31/2024 8:18 AM EST Sexual Orientation Choose not to disclose 2023 8:18 AM EST Obstetrics History Para Term AB IAB SAB Ectopic Multiple Livin g Live Births 1 Last Filed Vital Signs Vital Sign Reading Time Taken Comments Blood Pressure 138/74 07/08/2024 2:10 PM EST Pulse 67 07/08/2024 2:10 PM EST Temperature - - Respiratory Rate - - Oxygen Saturation 99% 07/08/2024 2:10 PM EST Inhaled Oxygen Concentration - - Weight 64.9 kg (143 lb) 12/17/2024 4:05 PM EDT Height 162.6 cm (5' 4 ) 12/17/2024 4:05 PM EDT Body Mass Index 24.55 12/17/2024 4:05 PM EDT Plan of Treatment Upcoming Encounters Date Type Department Care Team (Late st Contact Info) Description 06/23/2025 7:40 AM EST Office Visit [facility] - [facility] [address] 300 [facility] [address] [place] [phone] Kadi Palacios NP [address] [place] [address] Health Maintenance Due Date Last Done Comments Diabetes: Annual Foot Exam 1961 Diabetes: Annual Retina Eye Exam 1961 Falls Risk Assessment 07/20/2022 Medicare Annual Wellness Visit 07/20/2022 Social Influencers of Health Screening 07/20/2022 Diabetes: Annual Urine Albumin-Creatinine Ratio (uACR) 10/04/2023 COVID-19 Vaccine ( season) 2024 07/10/2021, 11/04/2020 Depression Screening 08/21/2024 Diabetes: Blood Sugar Control Test (HGBA1C) 01/03/2025 07/06/2024 Influenza Vaccine (#1) 2025 , 06/26/2023, 06/27/2021, Additional history exists Diabetes: Annual GFR (Glomerular Filtration Rate) 11/23/2025 11/23/2024, 11/09/2024, 09/24/2024, Additional history exists Hypertension/CHF/CAD Annual BMP Blood Test 11/23/2025 11/23/2024, 11/09/2024, 09/24/2024, Additional history exists Breast Cancer Screening 12/17/2026 12/18/19, 10/23/2023, 10/12/2022, Additional history exists Colorectal Cancer Screening: FIT-DNA (Cologuard) 08/09/2027 08/09/2024 Cholesterol Screening (Lipid Panel) 07/17/2029 07/17/2024, 05/08/2023 DTaP,Tdap,and Td Vaccines (6 - Td or Tdap) 10/07/2031 10/07/2021, 01/19/2019, 01/19/2019, Additional history exists Osteoporosis Screening (Bone Density Screening) 04/12/2033 04/12/2023, 04/16/2020 Zoster Vaccines Completed 07/02/2018, 01/2018, 04/09/2012 Pneumococcal Vaccine: 50+ Years Completed 04/26/2019, 05/09/2017, 07/26/2016, Additional history exists RSV Immunization Adult Patients [...] Procedure Name Priority Date/Time Associated Diagnosis Comments MG MAMMO DIGITAL SCREENING W SURESH BILAT Routine 12/17/2024 4:06 PM EDT Encounter for screening mammogram for breast cancer MOHAMUD DEXA AXIAL SKELETON Routine 04/12/2023 7:46 AM EDT Encounter for screening for osteoporosis from Last 3 Months or Most Recently Relevant to Health Maintenance Results * MG Mammo Digital Screening w Suresh bilat (12/17/2024 4:06 PM EDT) Anatomical Region Laterality Modality Breast Bilateral Mammography 12/18/2024 7:51 AM EDT Impressions 12/18/2024 7:55 AM EDT No evidence of breast malignancy. BI-RADS CATEGORY: 1 - NEGATIVE RECOMMENDATION: Screening bilateral mammogram is recommended in 1 year. Mammo Location: [facility], [address] [place] [address], [address], . -------- FINAL REPORT -------- Dictated By: Peggy Reddy Dictated Date: 12/18/2024 07:51 ET Assigned Physician: Peggy Reddy Reviewed and Electronically Signed By: Peggy Reddy Signed Date: 12/18/2024 07:55 ET Workstation ID: [id number] Transcribed By: Self Edit Transcribed Date: 12/18/2024 07:51 ET Narrative 12/18/2024 7:55 AM EDT CLINICAL: 74 years old, Female, routine annual exam. COMPARISON: 10/21/2023, 10/12/2022, 06/08/2021 and 03/04/2020 TECHNIQUE: Bilateral MLO and CC views were obtained digitally with 3-D mammogram (digital breast tomosynthesis). Computer-aided detection was utilized in evaluation of this exam (CAD). FINDINGS: There is no evidence of suspicious mass or architectural distortion. No worrisome calcifications are evident. There has been no significant change from prior exam(s). BREAST DENSITY: B - There are scattered areas of fibroglandular density. Procedure Note Peggy Reddy MD - 12/18/2024 CLINICAL: 74 years old, Female, routine annual exam. COMPARISON: 10/21/2023, 10/12/2022, 06/08/2021 and 03/04/2020 TECHNIQUE: Bilateral MLO and CC views were obtained digitally with 3-Dmammogram (digital breast tomosynthesis). Computer-aided detection wasutilized in evaluation of this exam (CAD). FINDINGS: There is no evidence of suspicious mass or architectural distortion. Noworrisome calcifications are evident. There has been no significantchange from prior exam(s). BREAST DENSITY: B - There are scattered areas of fibroglandular density. IMPRESSION: No evidence of breast malignancy. BI-RADS CATEGORY: 1 - NEGATIVE RECOMMENDATION: Screening bilateral mammogram is recommended in 1 year. Mammo Location: [facility], [address] [place] [address], [address], . -------- FINAL REPORT -------- Dictated By: Peggy Reddy Dictated Date: 12/18/2024 07:51 ET Assigned Physician: Peggy Reddy Reviewed and Electronically Signed By: Peggy Reddy Signed Date: 12/18/2024 07:55 ET Workstation ID: [id number] Transcribed By: Self Edit Transcribed Date: 12/18/2024 07:51 ET us Self Referral Sppl IMG BI PROCEDURES Final Resul t * MOHAMUD DEXA AXIAL SKELETON (04/12/2023 7:46 AM EDT) Anatomical Region Laterality Modality Mammography 04/11/2023 3:03 PM EDT Narrative 04/12/2023 7:46 AM EDT [facility] Diagnostic Imaging Department [address] [place] [id number] Patient: ANGELY PINEDA YARA /Age/Sex: 1950 - 72 - F Unit#: [id number] Location/Status: SPDIMAM/REG CLI Mnemonic/Ordering Site: MAMDEXAAX/SPMAM Ordering Physician: MAREN HOUGH MD Mohamud Dexa Axial Skeleton - 04/11/23 - [id number] Report Status:Signed HISTORY: The patient is a 72-year-old postmenopausal female with clinical concern for metabolic bone disease. FINDINGS: Dual [...] 102% of that of age matched controls. This yields a T-score of -1.1 and a [...] the prior examination of 04/16/2020. There has been a decrease of 5.5% in bone mineral density in the right femur and a decrease of 5.6% in bone mineral density in the left femur. 2. FRAX analysis yields a 10-year probability of major osteoporotic fracture of 15.5% and a 10-year probability of hip fracture of 2.2%. Code 37241 Dictating Physician: GWENDOLYN BAHENA MD Electronically Signed by: GWENDOLYN BAHENA MD Dic Date/Time: 04/12/2345 Sign date/Time: 04/12/23745 Procedure Note Gwendolyn Bahena MD - 09/26/2023 [facility] Diagnostic Imaging Department [address] [place], [place] [id number] Patient: ANGELY PINEDA YARA Pruitt./Age/Sex: 1950 - 72 - F Unit#: [id number] [facility] Ordering Physician: MAREN HOUGH MD [facility] Dexa Axial Skeleton - 04/11/23 - [id number] Report Status:Signed HISTORY: The patient is a [...] density of the femurs bilaterally is 0.874 gm/sj2qmyli is 87% of that of young normals [...] probability of hip fracture of 2.2%. Code 19547 Dictating Physician: GWENDOLYN BAHENA MD Electronically Signed by: GWENDOLYN BAHENA MD Dic Date/Time: 04/12/23 0745 Sign date/Time: 04/12/2346 Maren Hough MD IMG BI PROCEDURES Final Result from Last 3 Months or Most Recently Relevant to Health Maintenance Insurance [employer] MEDICARE Care Teams Oyster Sorter Relationship Specialty Start Date End Date Rolanda Thakur MD [address] [place] [address] PCP - General 11/03/23
--- OUTSIDE RECORDS SUMMARY | 2025-03-08 09:06 | XMS_ITS | Encounter Summary ---
Author Organization [employer] Address [address] [facility] 7 [place] [address] Care Team Providers Care Station Air Traffic Control Specialist Name Role Phone Rolanda Thakur MD Primary Care Provider [phone] Encounter Details Date Type Department Care Team ([facility] Contact Info) Description 12/02/2024 Telephone [facility] MED & PEDS [address] [place], [place] [phone] Rolanda Thakur MD [address] [place] [address] Social History Tobacco Use Types Packs/Day Years [...] Care Team (Late st Contact Info) Description 05/08/2025 4:00 PM EDT Office Visit [facility] MED & PEDS [address] [place] [address] Rolanda Thakur MD [address] [place] [address] documented as of this encounter Visit Diagnoses Not on filedocumented in this encounter Additional Health Concerns Assessment Noted Time PHQ-9 Depression Total Score: 2 05/13/20 24 9:24 AM EDT documented as of this encounter Care Teams Station Air Traffic Control Specialist Relationship Specialty Start Date End Date Rolanda Thakur MD [address] [place] [address] PCP - General Internal Medicine 09/19/22 documented as of this encounter
--- OUTSIDE RECORDS SUMMARY | 2025-03-08 09:06 | XMS_ITS | Continuity of Care Document ---
Author Organization [facility] [address] [facility] [address] [place] [address] Phone [phone] Care Team Providers Care Senior Electrical Controls Engineer Name Role Phone Rolanda Thakur M.D. Care Team Information Re ceiver [phone] Social History Type Date Description Comments Sex Female Sex Unknown Medical Devices Description No Information Available Encounters Description No Information Available Assessments Description No Information Available Plan of Treatment Future Appointment(s):* 08/26/2025 1:45 pm - Aren White M.D. at Main Office Functional Status Description No Information Available Mental Status Description No Information Available Referrals Description No Information Available
== END 2025-03-08 09:39 | disposition home or self-care (01) ==
LOC: HO.HMCWIC 09:05
PROVIDERS: PCP Internal Medicine; Visit Provider Physician Assistant
DX: M79.642 Pain in left hand (principal)

== ENCOUNTER → 2025-03-08 09:05 | Outpatient (BNVA) | payer MEDICARE, SELFPAY | PROVIDERS: PCP Internal Medicine; Visit Provider Physician Assistant | DX: M79.642 Pain in left hand (principal) | CPT/HCPCS: 99212 ==

== ENCOUNTER 2025-03-18 08:58 | Outpatient (AMB) | payer MEDICARE, SELFPAY ==
--- OUTSIDE RECORDS SUMMARY | 2025-03-18 09:16 | XMS_ITS | Clinical Summary ---
Author Organization 300 [facility] Address [address] [place] [address] Phone Care Team Providers Care Direct Sales Professional Name Role Phone Rolanda Thakur MD Primary Care Provider [phone] Allergies Active Allergy Reactions Criticality Noted Date [...] aware that this will likely be an zwr-ol-dcgaqq cost and feels as though she can afford it. I will review results and determine need for future follow-up. In the meantime she would like to hold off on statin therapy which I think is totally reasonable. Orders: ECG 12 lead Pure hypercholesterolemia 07/08/2024 Assessment & Plan (07/08/2024 4:42 PM EST): See plan above. Encounters Date Type Department Care Team Description 01/02/2025 Telephone [facility] - [facility] [address] [facility] [address] [place] [phone] Emeka Escoto NP Scheduling 12/17/2024 3:41 PM EDT - 12/17/2024 11:59 PM EDT [facility] [address] [phone] Encounter for screening mammogram for breast cancer Discharge Disposition: Home or Self Care from [...] Care Team (Late st Contact Info) Description 04/02/2025 1:30 PM EDT Office Visit [facility] - [facility] [address] 300 [facility] [address] [place] [address] Nikki Rawls MD [address] [place] [address] 06/23/2025 7:40 AM EST Office Visit [facility] Cardiology [facility] [address] [facility] [address] [place] [address] Kadi Palacios NP [address] [facility] [address] [place] [address] Health Maintenance Due Date Last Done Comments [...] Encounter for screening mammogram for breast cancer [facility] DEXA AXIAL SKELETON Routine 04/12/2023 7:46 [...] year. Mammo Location: [facility], [address] [place] [address], [facility], . -------- FINAL REPORT -------- Dictated By: Peggy Reddy Dictated Date: 12/18/2024 07:51 ET Assigned Physician: Peggy Reddy Reviewed and Electronically Signed By: Peggy Reddy Signed Date: 12/18/2024 07:55 ET Workstation ID: [id number] Transcribed By: Self Edit Transcribed Date: 12/18/2024 [...] year. Mammo Location: [facility], [address] [place] [address], [address], . -------- FINAL REPORT -------- Dictated By: Peggy Reddy Dictated Date: 12/18/2024 07:51 ET Assigned Physician: Peggy Reddy Reviewed and Electronically Signed By: Peggy Reddy Signed Date: 12/18/2024 07:55 ET Workstation ID: [id number] Transcribed By: Self Edit Transcribed Date: 12/18/2024 07:51 ET us Self Referral Sppl IMG BI PROCEDURES Final Resul t * MOHAMUD DEXA AXIAL SKELETON (04/12/2023 7:46 AM EDT) Anatomical Region Laterality Modality Mammography 04/11/2023 3:03 PM EDT Narrative 04/12/2023 7:46 AM EDT [facility] Diagnostic Imaging Department [address] [place] [address] Patient: ANGELY PINEDA YARA /Age/Sex: 1950 - 72 - F Unit#: [id number] Location/Status: SPDIMAM/REG CLI Mnemonic/Ordering Site: MAMDEXAAX/SPMAM Ordering [...] probability of hip fracture of 2.2%. Code 61180 Dictating Physician: GWENDOLYN BAHENA MD Electronically Signed by: GWENDOLYN BAHENA MD Dic Date/Time: 04/12/2345 Sign date/Time: 04/12/23745 Procedure Note Gwendolyn Bahena MD - 09/26/2023 [facility] Diagnostic Imaging Department [address] [place] [address] Patient: ANGELY PINEDA YARA Pruitt./Age/Sex: 1950 - 72 - F Unit#: [id number] [facility] Ordering Physician: MAREN HOUGH MD Mohamud Dexa Axial Skeleton - 04/11/23 - [id number] Report Status:Signed HISTORY: The patient is a [...] density of the femurs bilaterally is 0.874 gm/fe1wjcqo is 87% of that of young normals [...] probability of hip fracture of 2.2%. Code 81657 Dictating Physician: GWENDOLYN BAHENA MD Electronically Signed by: GWENDOLYN BAHENA MD Dic Date/Time: 04/12/2345 Sign date/Time: 04/12/23745 Maren Hough MD IMG BI PROCEDURES Final Result from Last 3 Months or Most Recently Relevant to Health Maintenance Insurance [employer] MEDICARE Care Teams Direct Sales Professional Relationship Specialty Start Date End Date Rolanda Thakur MD [address] [place] [address] PCP - General 11/03/23
--- OUTSIDE RECORDS SUMMARY | 2025-03-18 09:16 | XMS_ITS | Encounter Summary ---
Author Organization [employer] Address [address] [place] [phone] Care Team Providers Care Scroll Machine Operator Name Role Phone Rolanda Thakur MD Primary Care Provider [phone] Reason for Visit * Reason Onset Date Comments Call Back Request 03/11/2025 Encounter Details Date Type Department Care Team ([facility] Contact Info) Description 03/11/2025 Telephone [facility] CHC MED & PEDS [address] [place] [address] Rolanda Thakur MD [address] [place] [address] Call Back Request Social History Tobacco Use [...] encounter Miscellaneous Notes * Telephone Encounter - Lea Montes - 03/11/2025 2:22 PM EDT Tc from pt stating she does not understand why she is being called about being referred to a title abstractor and a state assessed properties director as she already has one of each doctors . Pt states she has apts coming up with her doctors. Pt is requesting a call back with clarification. Sap Manager: Dr. [facility] Type Technician: Dr. Cliff Condon Contact pt at [phone] documented in this encounter Plan of Treatment Upcoming Encounters Date Type Department Care Team (Late st Contact Info) Description 05/08/2025 4:00 PM EDT Office Visit [facility] CHC MED & PEDS [address] [place] [address] Rolanda Thakur MD [address] [place] [address] documented as of this encounter Visit Diagnoses Not on filedocumented in this encounter Additional Health Concerns Assessment Noted Time PHQ-9 Depression Total Score: 2 05/13/20 24 9:24 AM EDT documented as of this encounter Care Teams Scroll Machine Operator Relationship Specialty Start Date End Date Rolanda Thakur MD [address] [place] [phone] PCP - General Internal Medicine 09/19/22 documented as of this encounter
--- OUTSIDE RECORDS SUMMARY | 2025-03-18 09:16 | XMS_ITS | Clinical Summary ---
Author Organization [facility] Address [address] [place], [place] [id number] Care Team Providers Care School Psychology Professor Name Role Phone Rahel Hough MD Primary Care Provider [phone] Allergies Active Allergy Reactions Criticality Noted Date [...] mg by mouth daily. 0 09/09/2020 Active [place]-3 Fatty Acids (FISH OIL) 1000 MG CAPS [...] age to complete this topic Care Teams School Psychology Professor Relationship Specialty Start Date End Date Rahel Hough MD [address] [facility] [place] [address] PCP - General Internal Medicine 11/20/20
--- OUTSIDE RECORDS SUMMARY | 2025-03-18 09:16 | XMS_ITS | Continuity of Care Document ---
Author Organization [facility] 2 [facility] [address] [place] [address] Phone [phone] Care Team Providers Care Outside Plant Supervisor Name Role Phone Rolanda Thakur M.D. Care Team Information Re ceiver [phone] Social History Type Date Description Comments Sex [...]
--- OUTSIDE RECORDS SUMMARY | 2025-03-18 09:16 | XMS_ITS | Clinical Summary ---
Author Organization [facility] Facility Address [address] [place] [address] Care Team Providers Care Sewer Line Repairer Name Role Phone Maren Hough MD Primary Care Provider [phone] Social History Tobacco Use Types Packs/Day Years [...] patient's age to complete this topic Insurance [facility] Medicare [facility] Medicare Care Teams Sewer Line Repairer Relationship Specialty Start Date End Date Maren Hough MD [address] [place] [address] PCP - General Family Medicine 06/20/22
[2025-03-18 09:42] VITALS: BP 164/84; PULSE 80; TEMP 36.9; O2SAT 100; BMI 25.1
--- NOTE | 2025-03-18 09:42 | MHC.OFFWIV ---
Intake Vital Signs 03/18/25 09:42 Height 5 ft 4 in Weight 146 lb 3 oz BMI 25.1 BP 164/84 H Blood Pressure Location Lt brachial Position Sitting Pulse 80 Pulse Source Pulse Oximeter Temp 98.5 F Temp Source Oral Pulse Oximetry (%) 100 Oxygen Delivery Method Room Air Intake Visit Reasons: EP High BP & sugar Patient Tobacco Use Status: Never used Tobacco Ct Scan Technologist Required: No Is last menstrual period known: No Post menopausal: Yes Patient : No Allergies meloxicam Allergy (Mild, Verified 03/18/25 09:54) Dizziness ciprofloxacin Allergy (Verified 03/18/25 09:54) Unknown sulfamethoxazole (From Bactrim) Allergy (Verified 03/18/25 09:54) Unknown trimethoprim (From Bactrim) Allergy (Verified 03/18/25 09:54) Unknown gabapentin (GABAPENTIN) Adverse Reaction (Mild, Verified 03/18/25 09:54) NAUSEA acetaminophen (From PERCOCET) Adverse Reaction (Unknown, Verified 03/18/25 09:54) VOMITTING codeine (CODEINE) Adverse Reaction (Unknown, Verified 03/18/25 09:54) VOMITTING meperidine (From DEMEROL) Adverse Reaction (Unknown, Verified 03/18/25 09:54) VOMITTING morphine (MORPHINE) Adverse Reaction (Unknown, Verified 03/18/25 09:54) CANT OPEN HER EYES oxycodone (From PERCOCET) Adverse Reaction (Unknown, Verified 03/18/25 09:54) VOMITTING scallops (SCALLOPS) Adverse Reaction (Unknown, Verified 03/18/25 09:54) ABD PAIN Medication List - Last Reconciled 03/18/25 by Flor Obrien PA-C ascorbic acid (vitamin C) (Vitamin C) PO aspirin 1 tab PO DAILY cetirizine 10 mg PO DAILY cholecalciferol (vitamin D3) 50 mcg PO DAILY clonazepam 0.5 mg PO DAILY PRN clonidine HCl 0.1 mg PO 3XD cyclobenzaprine 10 mg PO .prn glipizide ER 10 mg PO BID levothyroxine (Synthroid) mcg PO losartan 100 mg PO DAILY metformin 500 mg PO BID tezsmord-jbg-drle-FA-vit K-lut 8 mg iron-400 mcg-50 mcg (Centrum Silver Women) 1 tab PO DAILY vitamin B complex 1 tab PO DAILY HPI HPI Comments History of Present Illness Details History of Present Illness - The patient is a 74-year-old female presenting with questions about management of multiple chronic conditions including hypothyroidism, type 2 diabetes mellitus, hypertension, panic attacks and hyperlipidemia. - Hypothyroidism: The patient had her thyroid removed in 1990 due to an aggressive approach following an inconclusive aspiration biopsy. - She has been on Synthroid since then, with a history of being switched to [place] Thyroid, which led to a TSH level of 79.9 and subsequent hospitalization. - Type 2 Diabetes Mellitus: The patient developed diabetes in 2007, attributed to the sugar encapsulation in [place] Thyroid medication. - She is currently on metformin and glipizide, with previous attempts to use Jardiance, which was effective but unaffordable. - Hypertension: The patient experiences fluctuating blood pressure readings, with a history of white coat syndrome. Checks it at home and it's usually in range except when she has an inciting event. She has her BP machine with her today. - She is on clonidine, which she sometimes skips due to her school schedule, and monitors her blood pressure at home. - Hyperlipidemia: The patient has a history of hyperlipidemia with a last LDL level under 90 mg/dL. - She has refused Lipitor despite her primary care physician's recommendation. - Cataracts: The patient underwent cataract surgery last summer and is scheduled for laser treatment due to film development on the lenses. - Panic Attacks: The patient reports panic attacks, which have been attributed to thyroid imbalances and are managed with clonazepam. - She thinks her sodium is off but she denies any mental status changes. Physical Exam General: Cooperative, healthy appearing, comfortable, no acute distress and well developed Orientation: Patient oriented x3 Limitations: No limitations Head: Normal to inspection Ears: Hearing grossly normal bilaterally Nose: Normal External nose present Face and sinus: Normal facial exam Eyes: Appearance normal, both eyes and all related structures. Neck: Normal visual inspection and Yes full ROM Respiratory: Normal respiratory effort and able to speak in complete sentences. 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 Tobacco Use Status: Never used Tobacco Review of Systems Const All systems reviewed & are unremarkable except as noted in HPI and below Physical Exam Vital Signs: Last Vital Signs Temp 98.5 F 03/18/25 09:42 Pulse 80 03/18/25 09:42 BP 164/84 H 03/18/25 09:42 Pulse Ox 100 03/18/25 09:42 Oxygen Delivery Method Room Air 03/18/25 09:42 BMI result Body Mass Index 25.1 Assessment & Plan Assessment & Plan (1) HTN (hypertension): Code(s): I10 - Essential (primary) hypertension Qualifiers: Hypertension type: primary hypertension Qualified Code(s): I10 - Essential (primary) hypertension Plan: Plan - The patient should follow up with her certified master locksmith to address thyroid management and obtain updated TSH levels. - Consideration of alternative diabetes medications such as GLP-1 receptor agonists should be discussed with her healthcare provider. - Blood pressure monitoring should continue at home, with adjustments to clonidine dosing as needed based on readings. Can follow up with PCP if readings are elevated with no inciting event. - The patient should maintain regular follow-ups for her hyperlipidemia management, considering her refusal of Lipitor. - Scheduled laser treatment for cataracts should proceed as planned. - Gave her ideas for carb/protein/fat snacks before bed to steady out blood sugars. Patient was informed and verbally consented to the use of an ambient scribe for clinic note documentation during this visit. (2) DM type 2 (diabetes mellitus, type 2): Code(s): E11.9 - Type 2 diabetes mellitus without complications Qualifiers: Diabetes mellitus complication status: without complication Diabetes mellitus intermediate card tender insulin use: without fdc use Qualified Code(s): E11.9 - Type 2 diabetes mellitus without complications Plan: as above (3) Hypothyroid: Code(s): E03.9 - Hypothyroidism, unspecified Qualifiers: Hypothyroidism type: postoperative Qualified Code(s): E89.0 - Postprocedural hypothyroidism Plan: as above (4) Panic attacks: Code(s): F41.0 - Panic disorder [episodic paroxysmal anxiety] Plan: as above Coding Level of Care Code New Pt Level 4 (64378) Diagnoses Primary hypertension I10 Hypertension type: primary hypertension Type 2 diabetes mellitus without complication, without long-term current use of insulin E11.9 Diabetes mellitus complication status: without complication Diabetes mellitus intermediate card tender insulin use: without intermediate card tender use Postoperative hypothyroidism E89.0 Hypothyroidism type: postoperative Panic attacks F41.0
== END 2025-03-18 10:59 | disposition home or self-care (01) ==
PROVIDERS: PCP Internal Medicine; Visit Provider Physician Assistant
DX: I10 Essential (primary) hypertension (principal); E11.9 Type 2 diabetes mellitus without complications; E89.0 Postprocedural hypothyroidism; F41.0 Panic disorder [episodic paroxysmal anxiety]

== ENCOUNTER → 2025-03-18 08:58 | Outpatient (BNVA) | payer MEDICARE, SELFPAY | PROVIDERS: PCP Internal Medicine; Visit Provider Physician Assistant | DX: I10 Essential (primary) hypertension (principal); E11.9 Type 2 diabetes mellitus without complications; E89.0 Postprocedural hypothyroidism; F41.0 Panic disorder [episodic paroxysmal anxiety] | CPT/HCPCS: 99212 ==

== ENCOUNTER 2025-03-19 15:11 | Outpatient (REF) | payer MEDICARE, SELFPAY ==
--- OUTSIDE RECORDS SUMMARY | 2025-03-19 15:55 | XMS_ITS | Clinical Summary ---
Author Organization [facility] Address [address] [place], [place] [id number] Care Team Providers Care Pharmacy Student Name Role Phone Rahel Hough MD Primary Care Provider [phone] Allergies Active Allergy Reactions Criticality Noted Date [...] mg by mouth daily. 0 09/09/2020 Active Crump-3 Fatty Acids (FISH OIL) 1000 MG CAPS [...] age to complete this topic Care Teams Pharmacy Student Relationship Specialty Start Date End Date Rahel Hough MD [address] [facility] [place] [address] PCP - General Internal Medicine 11/20/20
--- OUTSIDE RECORDS SUMMARY | 2025-03-19 15:55 | XMS_ITS | Encounter Summary ---
Author Organization [employer] Address [address] [place] [address] Care Team Providers Care Wood Furniture Assembler Name Role Phone Rolanda Thakur MD Primary Care Provider [phone] Reason for Visit * Reason Onset Date Comments Call Back Request 03/11/2025 Encounter Details Date Type Department Care Team ([facility] Contact Info) Description 03/11/2025 Telephone [facility] [address] [place] [address] Rolanda Thakur MD [address] [place] [address] Call Back Request Social History Tobacco Use [...] being called about being referred to a physical therapy aides teacher and a cash management specialist as she already has one of each doctors . Pt states she has apts coming up with her doctors. Pt is requesting a call back with clarification. Director Furniture: Dr. Morgan Clam Dredger: Dr. Cliff Condon Contact pt at [phone] documented in this encounter Plan of Treatment Upcoming Encounters Date Type Department Care Team (Late st Contact Info) Description 04/10/2025 10:00 AM EDT Office Visit [facility] [address] [place] [address] Rolanda Thakur MD [address] [place] [address] documented as of this encounter Visit Diagnoses Not on filedocumented in this encounter Additional Health Concerns Assessment Noted Time PHQ-9 Depression Total Score: 2 05/13/20 24 9:24 AM EDT documented as of this encounter Care Teams Wood Furniture Assembler Relationship Specialty Start Date End Date Rolanda Thakur MD [address] [place] [address] PCP - General Internal Medicine 09/19/22 documented as of this encounter
--- OUTSIDE RECORDS SUMMARY | 2025-03-19 15:55 | XMS_ITS | Continuity of Care Document ---
Author Organization [facility] [address] [facility] [address] [place] [address] Phone [phone] Care Team Providers Care Credit Portfolio Manager Name Role Phone Rolanda Thakur M.D. Care Team Information Re ceiver [phone] Social History Type Date Description Comments Sex Female Sex Unknown Medical Devices Description No Information Available Encounters Description No Information Available Assessments Description No Information Available Plan of Treatment Future Appointment(s):* 07/15/2025 1:45 pm - Aren White M.D. at Main Office * 08/26/2025 1:45 pm - Aren White M.D. at Main Office Functional Status Description No Information Available Mental Status Description No Information Available Referrals Description No Information Available
--- OUTSIDE RECORDS SUMMARY | 2025-03-19 15:55 | XMS_ITS | Clinical Summary ---
Author Organization [facility] Facility Address [address] [place] [address] Care Team Providers Care Exchange Engineer Name Role Phone Maren Hough MD Primary Care Provider [phone] Social History Tobacco Use Types Packs/Day Years [...] patient's age to complete this topic Insurance [facility] Medicare [facility] Medicare Care Teams Exchange Engineer Relationship Specialty Start Date End Date Maren Hough MD [address] [place] [address] PCP - General Family Medicine 06/20/22
--- OUTSIDE RECORDS SUMMARY | 2025-03-19 15:55 | XMS_ITS | Clinical Summary ---
Author Organization [address] [facility] Address [address] [place] [address] Phone Care Team Providers Care Scheduling Specialist Name Role Phone Rolanda Thakur MD Primary Care Provider [phone] Allergies Active Allergy Reactions Criticality Noted Date [...] aware that this will likely be an [id number] cost and feels as though she can afford it. I will review results and determine need for future follow-up. In the meantime she would like to hold off on statin therapy which I think is totally reasonable. Orders: ECG 12 lead Pure hypercholesterolemia 07/08/2024 Assessment & Plan (07/08/2024 4:42 PM EST): See plan above. Encounters Date Type Department Care Team Description 01/02/2025 Telephone [facility] [address] [facility] [address] [place] [address] Emeka Escoto NP Scheduling from Last 3 Months Family History Medical [...] Description 04/02/2025 1:30 PM EDT Office Visit [facility] [address] [facility] [address] [place] [address] Nikki Rawls MD [address] [place] [address] 06/23/2025 7:40 AM EST Office Visit [facility] [address] [facility] [address] [place] [address] Kadi Palacios NP [address] [facility] [address] [place] [address] Health Maintenance Due Date Last Done Comments [...] Additional history exists Breast Cancer Screening 12/17/2026 12/18/19 25, 10/23/2023, 10/12/2022, Additional history exists Colorectal Cancer [...] year. Mammo Location: [facility], [address] [place] [address], [address], . -------- FINAL REPORT -------- Dictated By: Peggy Reddy Dictated Date: 12/18/2024 07:51 ET Assigned Physician: Peggy Reddy Reviewed and Electronically Signed By: Peggy Reddy Signed Date: 12/18/2024 07:55 ET Workstation ID: [id number] Transcribed By: Self Edit Transcribed Date: 12/18/2024 [...] year. Mammo Location: [facility], [address] [place] [address], [address], . -------- FINAL REPORT -------- Dictated By: Peggy Reddy Dictated Date: 12/18/2024 07:51 ET Assigned Physician: Peggy Reddy Reviewed and Electronically Signed By: Peggy Reddy Signed Date: 12/18/2024 07:55 ET Workstation ID: [id number] Transcribed By: Self Edit Transcribed Date: 12/18/2024 07:51 ET us Self Referral Sppl IMG BI PROCEDURES Final Resul t * MOHAMUD DEXA AXIAL SKELETON (04/12/2023 7:46 AM EDT) Anatomical Region Laterality Modality Mammography 04/11/2023 3:03 PM EDT Narrative 04/12/2023 7:46 AM EDT [facility] Diagnostic Imaging Department [address] [place] [id number] Patient: ADANGELYIRIS LIVINGSTON D.O.B./Age/Sex: 1950 - 72 - F Unit#: [id number] Location/Status: SPDIMAM/REG CLI Mnemonic/Ordering Site: MAMDEXAAX/SPMAM Ordering [...] probability of hip fracture of 2.2%. Code 62268 Dictating Physician: GWENDOLYN BAHENA MD Electronically Signed by: GWENDOLYN BAHENA MD Dic Date/Time: 04/12/2345 Sign date/Time: 04/12/23745 Procedure Note Gwendolyn Bahena MD - 09/26/2023 [facility] Diagnostic Imaging Department [address] [place] [phone] Patient: ADANGELY YARA JohnsonO.B./Age/Sex: 1950 - 72 - F Unit#: [id number] Location/Status: SPDIMA/REG CLI Mnemonic[facility] Ordering Physician: MAREN HOUGH MD Mohamud Dexa Axial Skeleton - 04/11/23 1533 Report Status:Signed HISTORY: The patient is [...] density of the femurs bilaterally is 0.874 gm/rl1wypzq is 87% of that of young normals [...] probability of hip fracture of 2.2%. Code 84988 Dictating Physician: GWENDOLYN BAHENA MD Electronically Signed by: GWENDOLYN BAHENA MD Dic Date/Time: 04/12/23 0745 Sign date/Time: 04/12/2346 Maren Hough MD IMG BI PROCEDURES Final Result from Last 3 Months or Most Recently Relevant to Health Maintenance Insurance [employer] MEDICARE Care Teams Scheduling Specialist Relationship Specialty Start Date End Date Rolanda Thakur MD [address] [place] [address] PCP - General 11/03/23
[2025-03-19 18:10] LABS: NRBC Abs Auto 0.000 X10*3/uL (0.0-0.012); NRBC Pct Auto 0.0 /100WBC (0.0-0.2); PLT CLUMP 1; SCAN SMEAR FLAG 1
[2025-03-19 18:13] LABS: Hematocrit 37.4 % (37.0-47.0); Hemoglobin 12.6 g/dl (12.0-16.0); Imm Gran Abs Auto 0.03 X10*3/uL (0.00-0.03); Imm Gran Pct Auto 0.4 % (0.0-0.4); Lymphocytes Absolute Auto 2.3 X10*3/uL (1.2-4.9); MANUAL DIFF FLAG SCAN; Mean Corpuscular HGB Conc 33.7 g/dl (31.0-35.0); Mean Corpuscular Hemoglobin 30.0 pg (27.0-33.0); Mean Corpuscular Volume 89.0 fL (80.0-98.0); Red Blood Count 4.20 X10*6/uL (4.20-5.50)
[2025-03-19 18:48] LABS: White Blood Count 8.1 X10*3/uL (4.8-10.8)
[2025-03-22 12:28] LABS: TS Negative Control Passed; TS Panel A 0; TS Panel B 0; TS Positive Control Passed; TSpotTB Negative (Negative)
== END 2025-03-19 15:12 | disposition home or self-care (01) ==
LOC: HO.CHCLDS 15:11
PROVIDERS: Visit Provider Internal Medicine
DX: Z11.1 Encounter for screening for respiratory tuberculosis (principal); Z13.9 Encounter for screening, unspecified; E11.9 Type 2 diabetes mellitus without complications; E03.9 Hypothyroidism, unspecified
CPT/HCPCS: 36415; 84443; 85025; 86481

== ENCOUNTER 2025-04-12 09:04 | Outpatient (REF) | payer MEDICARE, SELFPAY ==
--- OUTSIDE RECORDS SUMMARY | 2025-04-12 10:02 | XMS_ITS | Continuity of Care Document ---
Author Organization [facility] [address] [facility] [address] [place] [address] Phone [phone] Care Team Providers Care Director Of Knowledge Management Name Role Phone Rolanda Thakur M.D. Care Team Information Re ceiver [phone] Social History Type Date Description Comments Sex [...]
--- OUTSIDE RECORDS SUMMARY | 2025-04-12 10:02 | XMS_ITS | Clinical Summary ---
Author Organization [facility] Facility Address [address] [place] [address] Care Team Providers Care Shellfish Bed Worker Name Role Phone Maren Hough MD Primary Care Provider [phone] Social History Tobacco Use Types Packs/Day Years [...] patient's age to complete this topic Insurance [facility] Medicare [facility] Medicare Care Teams Shellfish Bed Worker Relationship Specialty Start Date End Date Maren Hough MD [address] [place] [address] PCP - General Family Medicine 06/20/22
--- OUTSIDE RECORDS SUMMARY | 2025-04-12 10:02 | XMS_ITS | Clinical Summary ---
Author Organization [address] [facility] Address [address] [place] [address] Phone Care Team Providers Care Legislative Director Name Role Phone Rolanda Thakur MD Primary Care Provider +1 [phone] Allergies Active Allergy Reactions Criticality Noted Date [...] aware that this will likely be an [id number] cost and feels as though she can afford it. I will review results and determine need for future follow-up. In the meantime she would like to hold off on statin therapy which I think is totally reasonable. Orders: ECG 12 lead Pure hypercholesterolemia 07/08/2024 Assessment & Plan (07/08/2024 4:42 PM EST): See plan above. Encounters Date Type Department Care Team Description 04/02/2025 Telephone [facility] [address] [place] [address] Nikki Rawls MD Appointment Cancelled from Last 3 Months Family History Medical [...] Description 06/23/2025 7:40 AM EST Office Visit [facility] - [address] [place] [phone] Kadi Palacios NP [address] [place] [address] Health Maintenance Due Date Last Done Comments [...] year. Mammo Location: [facility], [address] [place] [address], [phone], . -------- FINAL REPORT -------- Dictated By: Peggy Reddy Dictated Date: 12/18/2024 07:51 ET Assigned Physician: Peggy Reddy Reviewed and Electronically Signed By: Peggy Reddy Signed Date: 12/18/2024 07:55 ET Workstation ID: [id number] Transcribed By: Self Edit Transcribed Date: 12/18/2024 [...] year. Mammo Location: [facility], [address] [place] [address], [address], . -------- FINAL REPORT -------- Dictated By: Peggy Reddy Dictated Date: 12/18/2024 07:51 ET Assigned Physician: Peggy Reddy Reviewed and Electronically Signed By: Peggy Reddy Signed Date: 12/18/2024 07:55 ET Workstation ID: [id number] Transcribed By: Self Edit Transcribed Date: 12/18/2024 07:51 ET us Self Referral Sppl IMG BI PROCEDURES Final Resul t * MOHAMUD DEXA AXIAL SKELETON (04/12/2023 7:46 AM EDT) Anatomical Region Laterality Modality Mammography 04/11/2023 3:03 PM EDT Narrative 04/12/2023 7:46 AM EDT [facility] Diagnostic Imaging Department [address] [place] [address] [id number] Patient: ADANGELYIRIS JohnsonO.B./Age/Sex: 1950 - 72 - F Unit#: [id number] Location/Status: [facility] CLI [facility]em[facility] Ordering Physician: MAREN HOUGH MD Mohamud Dexa Axial Skeleton - 04/11/23 - 4877 Report Status:Signed HISTORY: The patient is a [...] probability of hip fracture of 2.2%. Code 65417 Dictating Physician: GWENDOLYN BAHENA MD Electronically Signed by: GWENDOLYN BAHENA MD Dic Date/Time: 04/12/23 0745 Sign date/Time: 04/12/23 0746 Procedure Note Gwendolyn Bahena MD - 09/26/2023 [facility] Diagnostic Imaging Department [address] [place] [address] [id number] Patient: ANGELY PINEDA YARA /Age/Sex: 1950 - 72 - F Unit#: [id number] Location/Status: [facility] CLI Mnemonic[facility] Ordering Physician: MAREN HOUGH MD [facility] Dexa Axial Skeleton - 04/11/23 - [...] density of the femurs bilaterally is 0.874 gm/xi7yyetl is 87% of that of young normals [...] probability of hip fracture of 2.2%. Code 90306 Dictating Physician: GWENDOLYN BAHENA MD Electronically Signed by: GWENDOLYN BAHENA MD Dic Date/Time: 04/12/2345 Sign date/Time: 04/12/23745 Maren Hough MD IMG BI PROCEDURES Final Result from Last 3 Months or Most Recently Relevant to Health Maintenance Insurance [employer] MED[employer]ARE Care Teams Legislative Director Relationship Specialty Start Date End Date Rolanda Thakur MD [address] [place], [place] PCP - General 11/03/23
--- OUTSIDE RECORDS SUMMARY | 2025-04-12 10:02 | XMS_ITS | Clinical Summary ---
Author Organization [facility] Address [address] [place], [place] [phone] Care Team Providers Care Health Services Administrator Name Role Phone Rahel Hough MD Primary Care Provider [phone] Allergies Active Allergy Reactions Criticality Noted Date [...] mg by mouth daily. 0 09/09/2020 Active Hancock-3 Fatty Acids (FISH OIL) 1000 MG CAPS [...] age to complete this topic Care Teams Health Services Administrator Relationship Specialty Start Date End Date Rahel Hough MD [address] [facility] [place] [address] PCP - General Internal Medicine 11/20/20
[2025-04-12 12:02] LABS: Anion Gap 12 (12-20); Blood Urea Nitrogen 22 mg/dL (9-16); Calcium 9.7 mg/dL (8.4-10.2); Carbon Dioxide 23 mmol/L (22-29); Chloride 106 mmol/L (96-108); Cholesterol 191 mg/dL (<200); Estimated Glomerular Filt Rate 58; HDL Cholesterol 55 mg/dL (>40); Potassium 5.0 mmol/L (3.3-5.1); Sodium 136 mmol/L (135-145); Triglycerides 70 mg/dL (<150)
== END 2025-04-12 09:05 | disposition home or self-care (01) ==
LOC: HO.HMGCLDS 09:04
PROVIDERS: PCP Internal Medicine; Visit Provider Physician Assistant Medical
DX: E11.65 Type 2 diabetes mellitus with hyperglycemia (principal); E07.9 Disorder of thyroid, unspecified; E78.5 Hyperlipidemia, unspecified; R39.9 Unspecified symptoms and signs involving the genitourinary system; Z13.89 Encounter for screening for other disorder
CPT/HCPCS: 36415; 80048; 80061; 82948; 84443; 99212

== ENCOUNTER 2025-04-12 09:04 | Outpatient (AMB) | payer MEDICARE, SELFPAY ==
[2025-04-12 09:05] VITALS: BP 132/80; PULSE 64; TEMP 37.1; O2SAT 97
--- NOTE | 2025-04-12 09:05 | MHC.OFFWIV ---
Intake Vital Signs 04/12/25 09:05 Height 5 ft 4 in BP 132/80 Blood Pressure Location Lt brachial Position Sitting Pulse 64 Pulse Source Pulse Oximeter Temp 98.7 F Temp Source Oral Pulse Oximetry (%) 97 Oxygen Delivery Method Room Air Intake Visit Reasons: EP-277 glucose Patient Tobacco Use Status: Never used Tobacco Allergies meloxicam Allergy (Mild, Verified 04/12/25 09:07) Dizziness ciprofloxacin Allergy (Verified 04/12/25 09:07) Unknown sulfamethoxazole (From Bactrim) Allergy (Verified 04/12/25 09:07) Unknown trimethoprim (From Bactrim) Allergy (Verified 04/12/25 09:07) Unknown gabapentin (GABAPENTIN) Adverse Reaction (Mild, Verified 04/12/25 09:07) NAUSEA acetaminophen (From PERCOCET) Adverse Reaction (Unknown, Verified 04/12/25 09:07) VOMITTING codeine (CODEINE) Adverse Reaction (Unknown, Verified 04/12/25 09:07) VOMITTING meperidine (From DEMEROL) Adverse Reaction (Unknown, Verified 04/12/25 09:07) VOMITTING morphine (MORPHINE) Adverse Reaction (Unknown, Verified 04/12/25 09:07) CANT OPEN HER EYES oxycodone (From PERCOCET) Adverse Reaction (Unknown, Verified 04/12/25 09:07) VOMITTING scallops (SCALLOPS) Adverse Reaction (Unknown, Verified 04/12/25 09:07) ABD PAIN Do you need a note to return to daycare/school/sports/work: No HPI EP-277 glucose HPI Details Patient is a 74-year-old female known to this provider from multiple walk-in visits, with type 2 diabetes and severe anxiety, comes to the walk-in clinic nervous about high readings on dex com glucose monitoring device, although manual glucometer readings within normal limits, and denies any associated symptoms of hyperglycemia Also requests thyroid labs, lipid labs, and sodium as she has follow up with her medical provider soon and would like these done prior to that appointment No other symptoms or concerns currently [facility] Medical History Osteoarthritis of left knee Lumbar degenerative disc disease Panic attacks Hypothyroid Hyperlipidemia HTN (hypertension) DM type 2 (diabetes mellitus, type 2) Social History Household Members Other:: 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 Vital Signs: Last Vital Signs Temp 98.7 F 04/12/25 09:05 Pulse 64 04/12/25 09:05 BP 132/80 04/12/25 09:05 Pulse Ox 97 04/12/25 09:05 Oxygen Delivery Method Room Air 04/12/25 09:05 Results AMB Random Glucose (hemocue) AMB Random Glucose (hemocue) 168 mg/dL Last Edit by Carroll Blood CMA on 04/12/25 09:51 Results Reviewed Results Reviewed: Laboratory Last Values Random Glu (Clinic) 168 mg/dL 04/12/25 09:51 Assessment & Plan Assessment & Plan (1) Abnormal blood sugar: Code(s): R73.09 - Other abnormal glucose Plan: Patient is a type 2 diabetic who has been closely monitoring her sugar readings, and adhering to strict diet and medication treatment, with normal blood sugar reading in office today that is consistent with her manual readings Her Dexcom glucose monitoring likely has an issue with the sensor, and I advised that she ask provider or pharmacy about getting a replacement sensor-she has an extra 1 to use in the meantime I did order the labs as she requested, and she is to follow up with her medical provider with results Orders: Orders AMB Random Glucose (hemocue) 04/12/25 Z13.9 - Encounter for screening, unspecified TSH reflex Free T4 04/12/25 E07.9 - Disorder of thyroid, unspecified Lipid Panel 04/12/25 E78.5 - Hyperlipidemia, unspecified Sodium 04/12/25 R73.9 - Hyperglycemia, unspecified Coding Level of Care Code Est Pt Level 4 (38277) Diagnoses Abnormal blood sugar R73.09
== END 2025-04-12 09:58 | disposition home or self-care (01) ==
LOC: HO.HMCWIC 09:04
PROVIDERS: PCP Internal Medicine; Visit Provider Physician Assistant Medical
DX: R73.09 Other abnormal glucose (principal)

== ENCOUNTER 2025-04-18 08:28 | Outpatient (REF) | payer MEDICARE, SELFPAY ==
--- OUTSIDE RECORDS SUMMARY | 2025-04-18 09:19 | XMS_ITS | Encounter Summary ---
Author Organization [employer] Address [address] [facility] 7 [place] [address] Care Team Providers Care Selenium Plant Operator Name Role Phone Rolanda Thakur MD Primary Care Provider [phone] Encounter Details Date Type Department Care Team (Latest Contact Info) Description 04/18/2025 Travel Social History Tobacco Use Types Packs/Day [...] documented as of this encounter Care Teams Selenium Plant Operator Relationship Specialty Start Date End Date Rolanda Thakur MD [address] [place] [address] PCP - General Internal Medicine 09/19/22 documented as of this encounter
--- OUTSIDE RECORDS SUMMARY | 2025-04-18 09:19 | XMS_ITS | Continuity of Care Document ---
Author Organization [facility] [address] [place] [address] Phone [phone] Care Team Providers Care Commercial Horticulture Instructor Name Role Phone Rolanda Thakur M.D. Care Team Information Re ceiver [phone] Social History Type Date Description Comments Sex Female Sex Unknown Medical Devices Description No Information Available Encounters Description No Information Available Assessments Description No Information Available Plan of Treatment Future Appointment(s):* 05/07/2025 9:30 am - Aren White M.D. at Main Office * 07/15/2025 1:45 pm - Aren White M.D. at Main Office * 08/26/2025 1:45 pm - Aren White M.D. at Main Office Functional Status Description No Information Available Mental Status Description No Information Available Referrals Description No Information Available
--- OUTSIDE RECORDS SUMMARY | 2025-04-18 09:19 | XMS_ITS | Encounter Summary ---
Author Organization [employer] Address [address] [place] [address] Care Team Providers Care Kettle Hand Name Role Phone Rolanda Thakur MD Primary Care Provider [phone] Reason for Visit * Reason Comments Med Refill Encounter Details Date Type Department Care Team ([facility] st Contact Info) Description 01/05/2023 Refill [facility] CHC MED & PEDS [address] [place] [address] Karoline Csatañeda MD [address] [place] [address] Social History Tobacco Use Types Packs/Day Years [...] on filedocumented in this encounter Care Teams Kettle Hand Relationship Specialty Start Date End Date Rolanda Thakur MD [address] [place] [address] PCP - General Internal Medicine 09/19/22 documented as of this encounter
--- OUTSIDE RECORDS SUMMARY | 2025-04-18 09:19 | XMS_ITS | Encounter Summary ---
Author Organization [employer] Address [address] [facility] 7 [place] [address] Care Team Providers Care Actor Understudy Name Role Phone Rolanda Thakur MD Primary Care Provider [phone] Encounter Details Date Type Department Care Team ([facility] Contact Info) Description 12/02/2024 Telephone [facility] CHC MED & PEDS [address] [place], [place] [phone] Rolanda Thakur MD [address] [place] [address] Social History Tobacco Use Types Packs/Day Years [...] documented as of this encounter Care Teams Actor Understudy Relationship Specialty Start Date End Date Rolanda Thakur MD [address] [place] [address] PCP - General Internal Medicine 09/19/22 documented as of this encounter
--- OUTSIDE RECORDS SUMMARY | 2025-04-18 09:19 | XMS_ITS | Encounter Summary ---
Author Organization [employer] Address [address] [place] [address] Care Team Providers Care Food Services Coordinator Name Role Phone Rolanda Thakur MD Primary Care Provider [phone] Reason for Visit * Reason Onset Date Comments Med Refill 02/17/2025 Encounter Details Date Type Department Care Team ([facility] st Contact Info) Description 02/17/2025 Refill [facility] CHC MED & PEDS [address] [place] [address] Rolanda Thakur MD [address] [place] [address] Type 2 diabetes mellitus without complication, without long-term current use of insulin (CMS/HCC); Panic attack; Anxiety Social History Tobacco Use Types Packs/Day [...] complication, without long-term current use of insulin ([facility]) Panic attack Panic disorder without agoraphobia Anxiety Anxiety state, unspecified documented in this encounter Additional Health Concerns Assessment Noted Time PHQ-9 Depression Total Score: 2 05/13/20 24 9:24 AM EDT documented as of this encounter Care Teams Food Services Coordinator Relationship Specialty Start Date End Date Rolanda Thakur MD [address] [place] [address] PCP - General Internal Medicine 09/19/22 documented as of this encounter
--- OUTSIDE RECORDS SUMMARY | 2025-04-18 09:19 | XMS_ITS | Encounter Summary ---
Author Organization [employer] Address [address] [place] [address] 7 [place] [address] Care Team Providers Care Division Manager Name Role Phone Rolanda Thakur MD Primary Care Provider [phone] Reason for Visit * Reason Comments Med Refill Encounter Details Date Type Department Care Team ([facility] st Contact Info) Description 12/28/2022 Refill [facility] CHC MED & PEDS [address] [place] [address] Maren Hough MD [address] [place] [address] Type 2 diabetes mellitus without complication, without long-term current use of insulin ([facility]); Anxiety Social History Tobacco Use Types [...] of insulin ([facility]) Anxiety Anxiety state, unspecified documented in this encounter Care Teams Division Manager Relationship Specialty Start Date End Date Rolanda Thakur MD [address] [place] [address] PCP - General Internal Medicine 09/19/22 documented as of this encounter
--- OUTSIDE RECORDS SUMMARY | 2025-04-18 09:19 | XMS_ITS | Encounter Summary ---
Author Organization [employer] Address [address] [place] [address] Care Team Providers Care Comfort Station Attendant Name Role Phone Rolanda Thakur MD Primary Care Provider [phone] Encounter Details Date Type Department Care Team ([facility] st Contact Info) Description 05/16/2023 Orders Only [facility] CHC MED & PEDS [address] [place], [place] [phone] Rolanda Thakur MD [address] [place] [address] Bilateral leg paresthesia (Primary Dx); Anxiety; Diabetic [...] Vitamin B6 (10/10/2023 12:50 PM EST) Pathologist [facility] Vitamin B6 16.0 2.1 - 21.7 ng/mL [facility] Comment:Vitamin supplementat ion within 24 hours prior toblood draw may affect the accuracy of the results.This test was developed and its analytical performancecharacteristics have been determined by [employer] [place], [place]. It hasnot been cleared or approved by the U.S. Food and DrugAdministration. This assay has been validated pursuantto the CLIA regulations and is used for clinicalpurposes.THIS TEST WAS PERFORMED AT:[employer]/[facility] [place] [address]VUTIHGB W. MASON,MD,PHD Blood Venous blood specimen / Unknown 10/10/2023 12:50 PM EST 10/10/2023 2:41 PM EST us Rolanda Thakur MD LAB BLOOD ORDERABLES Final Result [facility] [address] [place] [phone] * (ABNORMAL) Vitamin B12 (10/10/2023 12:50 PM EST) Pathologist [facility] Vitamin B12 1,388(H) 200 - 900 pg/mL [facility] Comment:NORMAL 200-900 PG/ML INDETERMINATE 160-199 PG/ML DEFICIENT < 160 PG/ML Blood Venous blood specimen / Unknown 10/10/2023 12:50 PM EST 10/10/2023 2:41 PM EST us Rolanda Thakur MD LAB BLOOD ORDERABLES Final Result Performing Organization Address City/[facility]/ZIP Co de Phone Number [facility] [address] [place] [address] [phone] * TSH W/Reflex to FT4 (10/10/2023 12:50 PM EST) Pathologist [facility] TSH reflex Free T4 0.35 0.32 - 4.0 uIU/mL [facility] Blood 10/10/2023 12:5 0 PM EST 10/10/2023 2:41 PM EST us Rolanda Thakur MD LAB BLOOD ORDERABLES Final Result Performing Organization Address City/[facility]/ZIP Co de Phone Number [facility] [address] [place] [address] [phone] * (ABNORMAL) CBC auto differential (10/10/2023 12:50 PM EST) White Blood Count 8.0 4.8 - 10.8 X10*3/uL [facility] Red Blood Count 4.19(L) 4.20 - 5.50 X10*6/uL [facility] Hemoglobin 12.3 12.0 - 16.0 g/dl [facility] Hematocrit 36.6(L) 37.0 - 47.0 % [facility] Mean Corpuscular Volume 87.4 80.0 - 98.0 fL [facility] Mean Corpuscular Hemoglobin 29.4 27.0 - 33.0 pg [facility] Mean Corpuscular HGB Conc 33.6 31.0 - 35.0 g/dl [facility] Red Cell Distribution Width 12.8 11.0 - 16.0 % [facility] Platelet Count 252 160 - 400 X10*3/uL [facility] Mean Platelet Volume 9.5 9.4 - 12.3 fL [facility] Neutrophils Percent Auto 55.5 45 - 73 % [facility] Imm Gran Pct Auto 0.4 0.0 - 0.4 % [facility] Lymphocytes Percent Auto 31.3 20 - 40 % [facility] Monocytes Percent Auto 6.0 2 - 11 % [facility] Eosinophils Percent Auto 5.9(H) 0 - 4 % [facility] Basophils Percent Auto 0.9 0 - 2 % [facility] NRBC Pct Auto 0.0 0.0 - 0.2 /100WBC [facility] Neutrophils Absolute Auto 4.5 2.0 - 8.3 x10*3/uL [facility] Imm Gran Abs Auto 0.03 0.00 - 0.03 X10*3/uL [facility] Lymphocytes Absolute Auto 2.5 1.2 - 4.9 X10*3/uL [facility] Monocytes Absolute Auto 0.5 0.1 - 1.2 X10*3/uL [facility] Eosinophils Absolute Auto 0.5(H) 0.0 - 0.4 X10*3/uL [facility] Basophils Absolute Auto 0.1 0.0 - 0.2 X10*3/uL [facility] NRBC Abs Auto 0.000 0.0 - 0.012 X10*3/uL [facility] Blood Venous blood specimen / Unknown 10/10/2023 12:50 PM EST 10/10/2023 2:41 PM EST us Rolanda Thakur MD LAB BLOOD ORDERABLES Final Result [facility] [address] [place] [address] [phone] documented in this encounter Visit Diagnoses Diagnosis Bilateral leg paresthesia- Primary Disturbance of skin sensation Anxiety Anxiety state, unspecified Diabetic polyneuropathy associated with type 2 diabetes mellitus ([facility]) documented in this encounter Care Teams Comfort Station Attendant Relationship Specialty Start Date End Date Rolanda Thakur MD [address] [place] [address] PCP - General Internal Medicine 09/19/22 documented as of this encounter
--- OUTSIDE RECORDS SUMMARY | 2025-04-18 09:19 | XMS_ITS | Encounter Summary ---
Author Organization [employer] Address [address] [place] [address] Care Team Providers Care Director Of Recreation Therapy Name Role Phone Rolanda Thakur MD Primary Care Provider [phone]- [phone] Reason for Visit * Reason Onset Date Comments Med Refill 02/18/2025 Encounter Details Date Type Department Care Team ([facility] st Contact Info) Description 02/18/2025 Telephone [facility] CHC MED & PEDS [address] [place] [address] Rolanda Thakur MD [address] [place] [address] Med Refill Social History Tobacco Use Types [...] * Telephone Encounter - Lea Montes - 02/18/2025 3:37 PM EDT TC from pt requesting medication refill. Medications needing refill :clonazePAM (KlonoPIN) 0.5 MG tablet To be sent to: [id number] - [address] [place] [address] AT [facility] documented in this encounter Plan of Treatment Not on file documented as of this encounter Visit Diagnoses Not on filedocumented in this encounter Additional Health Concerns Assessment Noted Time PHQ-9 Depression Total Score: 2 05/13/20 24 9:24 AM EDT documented as of this encounter Care Teams Director Of Recreation Therapy Relationship Specialty Start Date End Date Rolanda Thakur MD [address] [place] [address] [facility] [address] PCP - General Internal Medicine 09/19/22 documented as of this encounter
--- OUTSIDE RECORDS SUMMARY | 2025-04-18 09:19 | XMS_ITS | Encounter Summary ---
Author Organization [employer] Address [address] [facility] 7 [place] [address] Care Team Providers Care Stave Log Cut Off Saw Operator Name Role Phone Rolanda Thakur MD Primary Care Provider +1 [phone] Encounter Details Date Type Department Care Team ([facility] Contact Info) Description 02/05/2025 Orders Only [facility] CHC MED & PEDS [address] [place], [place] [phone] Rolanda Thakur MD [address] [place] [address] Acquired hypothyroidism Social History Tobacco Use Types Packs/Day Years [...] of this encounter Visit Diagnoses Diagnosis Acquired hypothyroidism Unspecified hypothyroidism documented in this encounter Additional Health Concerns Assessment Noted Time PHQ-9 Depression Total Score: 2 05/13/20 24 9:24 AM EDT documented as of this encounter Care Teams Stave Log Cut Off Saw Operator Relationship Specialty Start Date End Date Rolanda Thakur MD [address] [place] [address] PCP - General Internal Medicine 09/19/22 documented as of this encounter
--- OUTSIDE RECORDS SUMMARY | 2025-04-18 09:19 | XMS_ITS | Encounter Summary ---
Author Organization [employer] Address [address] [address] Care Team Providers Care Roll Wrapper Name Role Phone Rolanda Thakur MD Primary Care Provider [phone]- [phone] Reason for Visit * Reason Onset Date Comments Call Back Request 10/31/2024 Encounter Details Date Type Department Care Team ([facility] st Contact Info) Description 10/31/2024 Telephone [facility] MEDICINE [address] [place] [address] Rolanda Thakur MD [address] [place], [place] [phone] Call Back Request Social History Tobacco Use [...] to DR. Castañeda. Please contact pt at [phone]. documented in this encounter Plan of Treatment Not on file documented as of this encounter Visit Diagnoses Not on filedocumented in this encounter Additional Health Concerns Assessment Noted Time PHQ-9 Depression Total Score: 2 05/13/20 24 9:24 AM EDT documented as of this encounter Care Teams Roll Wrapper Relationship Specialty Start Date End Date Rolanda Thakur MD [address] [place] [address] PCP - General Internal Medicine 09/19/22 documented as of this encounter
--- OUTSIDE RECORDS SUMMARY | 2025-04-18 09:19 | XMS_ITS | Encounter Summary ---
Author Organization [employer] Address [address] [place] [address] Care Team Providers Care Director Recreation Name Role Phone Rolanda Thakur MD Primary Care Provider +1- [phone] Reason for Visit * Reason Onset Date Comments Call Back Request 03/11/2025 Encounter Details Date Type Department Care Team ([facility] Contact Info) Description 03/11/2025 Telephone [facility] CHC MED & PEDS [address] [place] [address] Rolanda Thakur MD [address] [place] [address] Call Back Request Social History Tobacco Use [...] being called about being referred to a billet checker and a clinical allergist as she already has one of each doctors . Pt states she has apts coming up with her doctors. Pt is requesting a call back with clarification. Vp: Dr. Morgan Supervisor Sandblaster: Dr. Cliff Condon Contact pt at [phone] documented in this encounter Plan of Treatment Not on file documented as of this encounter Visit Diagnoses Not on filedocumented in this encounter Additional Health Concerns Assessment Noted Time PHQ-9 Depression Total Score: 2 05/13/20 24 9:24 AM EDT documented as of this encounter Care Teams Director Recreation Relationship Specialty Start Date End Date Rolanda Thakur MD [address] [place] [address] PCP - General Internal Medicine 09/19/22 documented as of this encounter
--- OUTSIDE RECORDS SUMMARY | 2025-04-18 09:19 | XMS_ITS | Encounter Summary ---
Author Organization [employer] Address [address] [address] Care Team Providers Care Muck Hauler Name Role Phone Rolanda Thakur MD Primary Care Provider [phone]- [phone] Reason for Visit * Reason Onset Date Comments Medication Question 11/27/2024 Encounter Details Date Type Department Care Team ([facility] st Contact Info) Description 11/27/2024 Telephone [facility] MEDICINE [address] [place] [address] Rolanda Thakur MD [address] [place], [place] [phone] Medication Question Social History Tobacco Use Types [...] going through what is going on. Contact [phone] documented in this encounter Plan of Treatment Not on file documented as of this encounter Visit Diagnoses Not on filedocumented in this encounter Additional Health Concerns Assessment Noted Time PHQ-9 Depression Total Score: 2 05/13/20 24 9:24 AM EDT documented as of this encounter Care Teams Muck Hauler Relationship Specialty Start Date End Date Rolanda Thakur MD [address] [place] [address] PCP - General Internal Medicine 09/19/22 documented as of this encounter
--- OUTSIDE RECORDS SUMMARY | 2025-04-18 09:19 | XMS_ITS | Encounter Summary ---
Author Organization [employer] Address [address] [place] [address] Care Team Providers Care Substation Technician Name Role Phone Rolanda Thakur MD Primary Care Provider +1- [phone] Encounter Details Date Type Department Care Team ([facility] st Contact Info) Description 05/01/2023 Orders Only [facility] CHC MED & PEDS [address] [place] [address] Rolanda Thakur MD [address] [place] [address] Diabetic polyneuropathy associated with type 2 diabetes [...] polyneuropathy associated with type 2 diabetes mellitus ([facility]/HCC) TSH W/REFLEX TO FT4 Routine 05/08/2023 1 1:04 AM EDT Diabetic polyneuropathy associated with type 2 diabetes mellitus ([facility]/HCC) CBC WITH AUTO DIFFERENTIAL Routine 05/08/2023 11:04 AM EDT Diabetic polyneuropathy associated with type 2 diabetes mellitus ([facility]/HCC) HEMOGLOBIN A1C Routine 05/08/2023 11:04 AM EDT Diabetic polyneuropathy associated with type 2 diabetes mellitus ([facility]/HCC) HEPATIC FUNCTION PANEL Routine 05/08/2023 11:04 AM EDT Diabetic polyneuropathy associated with type 2 diabetes mellitus ([facility]/HCC) LIPID PANEL, STANDARD Routine 05/08/2023 11:04 AM EDT Diabetic polyneuropathy associated with type 2 diabetes mellitus ([facility]/HCC) BASIC METABOLIC PANEL Routine 05/08/2023 11:04 AM EDT Diabetic polyneuropathy associated with type 2 diabetes mellitus ([facility]/HCC) documented in this encounter Results * (ABNORMAL) Hemoglobin A1c (05/08/2023 11:04 AM EDT) Hemoglobin A1c 6.1(H) <6.0 % [facility] Comment:Hemoglobin A1C Refer ence Range Adults: 4.8 - 6.0 % Non diabetic: < 6.0 % Goal: < 7.0 %Additional Action Suggested: > 8.0 %Note: Hemoglobin A1c results are invalid for patients with abnormal amounts of HbF. Blood transfusions may impact the HbA1c concentration in the patient sample. Estimated Average Glucose 128 mg/dL [facility] Comment:eAG = Estimated ave rage glucose which is %A1C expressed asaverage glucose, using the formula of the W4E-LssagisAohcuwq Glucose study (ADAG), Diabetes Care, Vol.31,#8,Mar. 2007 Blood Venous blood specimen / Unknown 05/08/2023 11:04 AM EDT 05/08/2023 1:46 PM EDT Rolanda Thakur MD LAB BLOOD ORDERABLES Final Result Performing Organization Address City/[facility]/ZIP Co de Phone Number [facility] [address] [place] [phone] * Vitamin D, 25-Hydroxy, Total, Immunoassay (05/08/2023 11:04 AM EDT) Vitamin D 25-OH Total 84.6 >30 ng/mL [facility] Comment:Health Based Referen ce Values*< 20 ng/mL [id number] ng/mL Insufficient> 30 ng/mL Sufficient*Arabella MCALLISTER. N [...] Final Result Performing Organization Address [facility] Co de Phone Number [facility] [address] [place] [phone] * Hepatic Function Panel (05/08/2023 11:04 AM EDT) Bilirubin, Total 0.5 0.0 - 1.0 mg/dL [facility] Bilirubin, Direct 0.2 0.0 - 0.5 mg/dL [facility] Aspartate Amino Transferase 22 5 - 31 U/L [facility] Alanine Aminotransferase 18 0 - 31 U/L [facility] Total Protein 7.1 6.5 - 8.0 g/dL [facility] Albumin Level 4.4 3.5 - 5.0 g/dL [facility] Alkaline Phosphatase 70 39 - 117 U/L [facility] Blood Venous blood specimen / Unknown 05/08/2023 11:04 AM EDT 05/08/2023 1:47 PM EDT us Rolanda Thakur MD LAB BLOOD ORDERABLES Final Result [facility] [address] [place] [phone] * (ABNORMAL) Lipid Panel, Standard (05/08/2023 11:04 AM EDT) Triglycerides 110 <150 mg/dL [facility] Comment:Desirable Triglyceri de: less than 150 mg/dLBorderline High Triglyceride 150-199 mg/dLHigh Triglyceride: 200-499 mg/dLVery High Triglyceride: greater than or equal to 5OO mg/dL Cholesterol 198 <200 mg/dL [facility] Comment:Desirable Cholestero l: less than 200 mg/dLBorderline High Cholesterol: 200-239 mg/dLHigh Cholesterol: greater than 239 mg/dL LDL Cholesterol Calculated 121(H) <100 mg/dL [facility] Comment:Desirable LDL: less than 100 mg/dLNear Optimal/Above Optimal LDL: 110- 129 mg/dLBorderline High LDL: 130-159 mg/dLHigh LDL: 160-189 mg/dLVery High LDL: greater than or equal to 190 mg/dL HDL Cholesterol 55 >40 mg/dL [facility] Comment:Desirable HDL: great er than 40 mg/dL Note: This HDL assay may give artificially low results in patients with liver disease. Blood Venous blood specimen / Unknown 05/08/2023 11:04 AM EDT 05/08/2023 1:47 PM EDT Rolanda Thakur MD LAB BLOOD ORDERABLES Final Result Performing Organization Address City/[facility]/ZIP Co de Phone Number [facility] [address] [place] [phone] * TSH W/Reflex to FT4 (05/08/2023 11:04 AM EDT) TSH reflex Free T4 0.53 0.32 - 4.0 uIU/mL [facility] Blood 05/08/2023 11:0 4 AM EDT 05/08/2023 1:47 PM EDT us Rolanda Thakur MD LAB BLOOD ORDERABLES Final Result Performing Organization Address [facility] Co de Phone Number [facility] [address] [place] [address] [phone] * (ABNORMAL) Basic Metabolic Panel (05/08/2023 11:04 AM EDT) Sodium 137 135 - 145 mmol/L [facility] Potassium 4.4 3.3 - 5.1 mmol/L [facility] Chloride 108 96 - 108 mmol/L [facility] Carbon Dioxide 24 22 - 29 mmol/L [facility] Anion Gap 9(L) 12 - 20 [facility] Urea Nitrogen (BUN) 14 9 - 16 mg/dL [facility] Creatinine, Serum 1.03 0.5 - 1.4 mg/dL [facility] Estimated Glomerular Filt Rate 53 [facility] Comment:NOTE: For -Am erican individuals, multiply the result by 1.210.Chronic Kidney Disease: Estimated GFR < 60 mL/min/1.94t6Ccnbgi Kidney Disease: Estimated GFR < 15 mL/min/1.73m2 Glucose 208(H) 60 - 115 mg/dL [facility] Calcium 10.1 8.4 - 10.2 mg/dL [facility] Blood Venous blood specimen / Unknown 05/08/2023 11:04 AM EDT 05/08/2023 1:47 PM EDT Rolanda Thakur MD LAB BLOOD ORDERABLES Final Result [facility] [address] [place] [phone] [phone] * (ABNORMAL) CBC auto differential (05/08/2023 11:04 AM EDT) White Blood Count 8.6 4.8 - 10.8 X10*3/uL [facility] Red Blood Count 4.27 4.20 - 5.50 X10*6/uL [facility] Hemoglobin 12.6 12.0 - 16.0 g/dl [facility] Hematocrit 37.9 37.0 - 47.0 % [facility] Mean Corpuscular Volume 88.8 80.0 - 98.0 fL [facility] Mean Corpuscular Hemoglobin 29.5 27.0 - 33.0 pg [facility] Mean Corpuscular HGB Conc 33.2 31.0 - 35.0 g/dl [facility] Red Cell Distribution Width 13.0 11.0 - 16.0 % [facility] Platelet Count 266 160 - 400 X10*3/uL [facility] Mean Platelet Volume 9.5 9.4 - 12.3 fL [facility] Neutrophils Percent Auto 50.3 45 - 73 % [facility] Imm Gran Pct Auto 0.3 0.0 - 0.4 % [facility] Lymphocytes Percent Auto 33.4 20 - 40 % [facility] Monocytes Percent Auto 7.0 2 - 11 % [facility] Eosinophils Percent Auto 7.8(H) 0 - 4 % [facility] Basophils Percent Auto 1.2 0 - 2 % [facility] NRBC Pct Auto 0.0 0.0 - 0.2 /100WBC [facility] Neutrophils Absolute Auto 4.3 2.0 - 8.3 x10*3/uL [facility] Imm Gran Abs Auto 0.03 0.00 - 0.03 X10*3/uL [facility] Lymphocytes Absolute Auto 2.9 1.2 - 4.9 X10*3/uL [facility] Monocytes Absolute Auto 0.6 0.1 - 1.2 X10*3/uL [facility] Eosinophils Absolute Auto 0.7(H) 0.0 - 0.4 X10*3/uL [facility] Basophils Absolute Auto 0.1 0.0 - 0.2 X10*3/uL [facility] NRBC Abs Auto 0.000 0.0 - 0.012 X10*3/uL [facility] Blood Venous blood specimen / Unknown 05/08/2023 11:04 AM EDT 05/08/2023 1:46 PM EDT Rolanda Thakur MD LAB BLOOD ORDERABLES Final Result [facility] [address] [place] [phone] [phone] documented in this encounter Visit Diagnoses Diagnosis Diabetic polyneuropathy associated with type 2 diabetes mellitus (CMS/HCC)- Primary documented in this encounter Care Teams Substation Technician Relationship Specialty Start Date End Date Rolanda Thakur MD [address] [place] [phone] PCP - General Internal Medicine 09/19/22 documented as of this encounter
--- OUTSIDE RECORDS SUMMARY | 2025-04-18 09:19 | XMS_ITS | Encounter Summary ---
Author Organization [employer] Address [address] [place] [address] Care Team Providers Care Bed Rubber Name Role Phone Rolanda Thakur MD Primary Care Provider [phone]- [phone] Reason for Visit * Reason Comments Med Refill Encounter Details Date Type Department Care Team ([facility] st Contact Info) Description 12/03/2024 Refill [facility] CHC MED & PEDS [address] [place], [place] [phone] Rolanda Thakur MD [address] [place] [address] Diabetic polyneuropathy associated with type 2 diabetes [...] documented as of this encounter Care Teams Bed Rubber Relationship Specialty Start Date End Date Rolanda Thakur MD [address] [place] [phone] PCP - General Internal Medicine 09/19/22 documented as of this encounter
--- OUTSIDE RECORDS SUMMARY | 2025-04-18 09:19 | XMS_ITS | Encounter Summary ---
Author Organization [employer] Address [address] [place] [address] 7 [place] [address] Care Team Providers Care Real Estate Marketing Coordinator Name Role Phone Rolanda Thakur MD Primary Care Provider [phone]- [phone] Reason for Visit * Reason Onset Date Comments Appointment Request 04/18/2025 Encounter Details Date Type Department Care Team ([facility] Contact Info) Description 04/18/[address] [facility] CHC MED & PEDS [address] [place] [address] Migdalia Loza FNP [address] [place] [address] Appointment Request Social History Tobacco Use Types [...] encounter Miscellaneous Notes * Telephone Encounter - Kimberly Bronson RN - 04/18/2025 9:15 AM EDT Pt being seen today 8:30 appt with MARIBEL Loza so all MyChart messages will be checked done. All concerns will be addressed in this appt. documented in this encounter Plan of Treatment Not on file documented as of this encounter Visit Diagnoses Not on filedocumented in this encounter Additional Health Concerns Assessment Noted Time PHQ-9 Depression Total Score: 2 05/13/20 24 9:24 AM EDT documented as of this encounter Care Teams Real Estate Marketing Coordinator Relationship Specialty Start Date End Date Rolanda Thakur MD [address] [place] [phone] PCP - General Internal Medicine 09/19/22 documented as of this encounter
--- OUTSIDE RECORDS SUMMARY | 2025-04-18 09:20 | XMS_ITS | Clinical Summary ---
Author Organization [facility] Address [address] [place], [place] [id number] Care Team Providers Care Riverine Assault Craft Crewman Name Role Phone Rahel Hough MD Primary Care Provider [phone] Allergies Active Allergy Reactions Criticality Noted Date [...] mg by mouth daily. 0 09/09/2020 Active [place]-3 Fatty Acids (FISH OIL) 1000 MG CAPS [...] age to complete this topic Care Teams Riverine Assault Craft Crewman Relationship Specialty Start Date End Date Rahel Hough MD [address] [facility] [place] [address] PCP - General Internal Medicine 11/20/20
--- OUTSIDE RECORDS SUMMARY | 2025-04-18 09:20 | XMS_ITS | Encounter Summary ---
Author Organization [employer] Address [address] [place] [address] Care Team Providers Care Bander Hand Name Role Phone Rolanda Thakur MD Primary Care Provider [phone]- [phone] Reason for Visit * Reason Onset Date Comments Med Refill 04/16/2025 Encounter Details Date Type Department Care Team ([facility] st Contact Info) Description 04/16/2025 Refill [facility] CHC MED & PEDS [address] [place] [address] Rolanda Thakur MD [address] [place] [address] Acquired hypothyroidism Social History Tobacco Use Types [...] documented as of this encounter Care Teams Bander Hand Relationship Specialty Start Date End Date Rolanda Thakur MD [address] [place] [phone] PCP - General Internal Medicine 09/19/22 documented as of this encounter
--- OUTSIDE RECORDS SUMMARY | 2025-04-18 09:20 | XMS_ITS | Encounter Summary ---
Author Organization [employer] Address [address] [address] Care Team Providers Care Electric Power Superintendent Name Role Phone Rolanda Thakur MD Primary Care Provider [phone] Reason for Visit * Reason Onset Date Comments Nurse Triage 08/05/2024 Encounter Details Date Type Department Care Team ([facility] st Contact Info) Description 08/05/2024 Telephone [facility] MEDICINE [address] [place] [address] Rolanda Thakur MD [address] [place], [place] [phone] Nurse Triage Social History Tobacco Use Types [...] to come to [facility] today which is open till 8pm and also open 830am -800pm tomorrow. Pt agrees with this disposition. Pt will try to come to [facility] todaybut, if unable will come tomorrow. Pt [...] documented as of this encounter Care Teams Electric Power Superintendent Relationship Specialty Start Date End Date Rolanda Thakur MD [address] [place] [phone] PCP - General Internal Medicine 09/19/22 documented as of this encounter
--- OUTSIDE RECORDS SUMMARY | 2025-04-18 09:20 | XMS_ITS | Encounter Summary ---
Author Organization [employer] Address [address] [place] [address] Care Team Providers Care Chemical Equipment Repairer Name Role Phone Rolanda Thakur MD Primary Care Provider [phone]- [phone] Reason for Visit * Reason Onset Date Comments Referral 06/13/2024 Encounter Details Date Type Department Care Team ([facility] st Contact Info) Description 06/13/2024 Telephone [facility] MEDICINE [address] [place] [address] Rolanda Thakur MD [address] [place], [place] [phone] Referral Social History Tobacco Use Types Packs/Day [...] documented as of this encounter Care Teams Chemical Equipment Repairer Relationship Specialty Start Date End Date Rolanda Thakur MD [address] [place] [address] PCP - General Internal Medicine 09/19/22 documented as of this encounter
--- OUTSIDE RECORDS SUMMARY | 2025-04-18 09:20 | XMS_ITS | Encounter Summary ---
Author Organization [employer] Address [address] [place] [address] Care Team Providers Care Hub Lead Name Role Phone Rolanda Thakur MD Primary Care Provider [phone] Reason for Referral * Consultation (Routine) - Closed Specialty Diagnoses / Procedures Referred By Freddy meadows Referred To Contact Behavioral Health Diagnoses Anxiety Rolanda Thakur MD [address] [place] [address] Phone: tel: fax: Referral ID Status Reason Start Date Expiration Date V isits Requested Visits Authorized [id number] Closed Specialty Services Required 05/02/2024 05/02/2025 1 1 Encounter Details Date Type Department Care Team (Late st Contact Info) Description 05/02/2024 Orders Only [facility] CHC MED & PEDS [address] [place] [address] Rolanda Thakur MD [address] [place] [address] Anxiety (Primary Dx) Social History Tobacco Use [...] unspecified documented in this encounter Care Teams Hub Lead Relationship Specialty Start Date End Date Rolanda Thakur MD [address] [place] [address] PCP - General Internal Medicine 09/19/22 documented as of this encounter
--- OUTSIDE RECORDS SUMMARY | 2025-04-18 09:20 | XMS_ITS | Encounter Summary ---
Author Organization [employer] Address [address] [place] [address] Care Team Providers Care Base Manager Name Role Phone Rolanda Thakur MD Primary Care Provider [phone]- [phone] Reason for Visit * Reason Onset Date Comments CT scan order 07/03/2024 Encounter Details Date Type Department Care Team ([facility] st Contact Info) Description 07/03/2024 Telephone [facility] CHC MED & PEDS [address] [place] [address] Rolanda Thakur MD [address] [place] [address] CT scan order Social History Tobacco Use [...] incorrect location. Pt prefers being seen in [facility]. Please call pt to clarify. documented in this encounter Plan of Treatment Not on file documented as of this encounter Visit Diagnoses Not on filedocumented in this encounter Additional Health Concerns Assessment Noted Time PHQ-9 Depression Total Score: 2 05/13/20 24 9:24 AM EDT documented as of this encounter Care Teams Base Manager Relationship Specialty Start Date End Date Rolanda Thakur MD [address] [place] [address] PCP - General Internal Medicine 09/19/22 documented as of this encounter
--- OUTSIDE RECORDS SUMMARY | 2025-04-18 09:20 | XMS_ITS | Encounter Summary ---
Author Organization [employer] Address [address] [place] [address] Care Team Providers Care Hat Forming Machine Feeder Name Role Phone Rolanda Thakur MD Primary Care Provider [phone]- [phone] Reason for Visit * Reason Onset Date Comments Med Refill 04/11/2025 Encounter Details Date Type Department Care Team ([facility] st Contact Info) Description 04/11/2025 Refill [facility] CHC MED & PEDS [address] [place] [address] Rolanda Thakur MD [address] [place] [address] Type 2 diabetes mellitus without complication, without long-term current use of insulin ([facility]) Social History Tobacco Use [...] complication, without long-term current use of insulin ([facility]) documented in this encounter Additional Health Concerns Assessment Noted Time PHQ-9 Depression Total Score: 2 05/13/20 24 9:24 AM EDT documented as of this encounter Care Teams Hat Forming Machine Feeder Relationship Specialty Start Date End Date Rolanda Thakur MD [address] [place] [address] PCP - General Internal Medicine 09/19/22 documented as of this encounter
--- OUTSIDE RECORDS SUMMARY | 2025-04-18 09:20 | XMS_ITS | Encounter Summary ---
Author Organization [employer] Address [address] [place] [address] Care Team Providers Care Agency Legal Counsel Name Role Phone Rolanda Thakur MD Primary Care Provider [phone] Reason for Referral * Imaging (Routine) - Closed Specialty Diagnoses / Procedures Referred By Contac t Referred To Contact Radiology Diagnoses Hyponatremia Decreased GFR Procedures US RENAL BI Rolanda Thakur MD [address] [place] [address] Phone: tel: fax: [address] Phone: tel: fax: Referral ID Status Reason Start Date Expiration Date Visits Re quested Visits Authorized [id number] Closed 07/18/2024 07/18/2025 1 0 Encounter Details Date Type Department Care Team (Late st Contact Info) Description 07/09/2024 Orders Only [facility] CHC MED & PEDS [address] [place], [place] [phone] Rolanda Thakur MD [address] [place], [place] [phone] Hyponatremia (Primary Dx); Decreased GFR Social History [...] Type Priority Associated Diagnoses Orde r Schedule US RENAL BI Imaging Routine Hyponatremia Decreased GFR Expected: 07/18/2024, Expires: 07/18/2025 documented as of this encounter Procedures Procedure Name Priority Date/Time Associated Diagnosis Comments BASIC METABOLIC PANEL Routine 02/05/2025 12:22 PM EDT Hyponatremia documented in this encounter Results * (ABNORMAL) Basic Metabolic Panel (02/05/2025 12:22 PM EDT) Sodium 133(L) 135 - 145 mmol/L [facility] Potassium 4.9 3.3 - 5.1 mmol/L [facility] Chloride 104 96 - 108 mmol/L [facility] Carbon Dioxide 23 22 - 29 mmol/L [facility] Anion Gap 11(L) 12 - 20 [facility] Urea Nitrogen (BUN) 15 9 - 16 mg/dL [facility] Creatinine, Serum 0.82 0.5 - 1.4 mg/dL [facility] Estimated Glomerular Filt Rate >60 [facility] Comment:Chronic Kidney Disea se: Estimated GFR < 60 mL/min/1.59h3Qoibex Kidney Disease: Estimated GFR < 15 mL/min/1.73m2 Glucose 177(H) 60 - 115 mg/dL [facility] Calcium 9.5 8.4 - 10.2 mg/dL [facility] Blood Venous blood specimen / Unknown 02/05/2025 12:22 PM EDT 02/05/2025 1:20 PM EDT Rolanda Thakur MD LAB BLOOD ORDERABLES Final Result [facility] [address] [place] [address] [phone] documented in this encounter Visit Diagnoses Diagnosis Hyponatremia- Primary Hyposmolality and/or hyponatremia Decreased GFR documented in this encounter Additional Health Concerns Assessment Noted Time PHQ-9 Depression Total Score: 2 05/13/20 24 9:24 AM EDT documented as of this encounter Care Teams Agency Legal Counsel Relationship Specialty Start Date End Date Rolanda Thakur MD [address] [place] [address] PCP - General Internal Medicine 09/19/22 documented as of this encounter
--- OUTSIDE RECORDS SUMMARY | 2025-04-18 09:20 | XMS_ITS | Encounter Summary ---
Author Organization [employer] Address [address] [place] [address] Care Team Providers Care Radio Electronics Officer Name Role Phone Rolanda Thakur MD Primary Care Provider [phone]- [phone] Reason for Referral * Consultation (Routine) - Authorized Specialty Diagnoses / Procedures Referred By Contac t Referred To Contact Endocrinology Diagnoses Type 2 diabetes mellitus without complication, without long-term current use of insulin (CMS/HCC) Benign essential hypertension Rolanda Thakur MD [address] [place] [address] Phone: tel: fax: [facility] [address] , [address] [place] [address] Phone: tel: fax: Referral ID Status Reason Start Date Expiration Date Visits Requested Visits Authorized [id number] Authorized Specialty Services Required 11/07/2024 11/07/2025 1 1 Encounter Details Date Type Department Care Team (Late st Contact Info) Description 11/07/2024 Orders Only [facility] MEDICINE [address] [place] [address] Rolanda Thakur MD [address] [place] [address] Type 2 diabetes mellitus without complication, without [...] documented as of this encounter Care Teams Radio Electronics Officer Relationship Specialty Start Date End Date Rolanda Thakur MD [address] [place] [address] PCP - General Internal Medicine 09/19/22 documented as of this encounter
--- OUTSIDE RECORDS SUMMARY | 2025-04-18 09:20 | XMS_ITS | Encounter Summary ---
Author Organization [employer] Address [address] [place] [address] Care Team Providers Care Manager Continuous Improvement Name Role Phone Rolanda Thakur MD Primary Care Provider [phone]- [phone] Reason for Visit * Reason Onset Date Comments Medication Question 12/08/2022 Encounter Details Date Type Department Care Team ([facility] st Contact Info) Description 12/08/2022 Telephone [facility] CHC MED & PEDS [address] [place], [place] [phone] Rolanda Thakur MD [address] [place] [address] Medication Question Social History Tobacco Use Types [...] filedocumented in this encounter Care Teams Manager Continuous Improvement Relationship Specialty Start Date End Date Rolanda Thakur MD [address] [place] [address] PCP - General Internal Medicine 09/19/22 documented as of this encounter
--- OUTSIDE RECORDS SUMMARY | 2025-04-18 09:20 | XMS_ITS | Encounter Summary ---
Author Organization [employer] Address [address] [place] [address] Care Team Providers Care Phlebotomy Lab Assistant Name Role Phone Rolanda Thakur MD Primary Care Provider +1- [phone] Reason for Visit * Reason Onset Date Comments Created In Error 04/29/2024 Encounter Details Date Type Department Care Team (Late st Contact Info) Description 04/29/2024 Telephone [facility] MEDICINE [address] [place] [address] [phone] Rolanda Thakur MD [address] [place], [place] [phone] Created In Error Social History Tobacco Use [...] on filedocumented in this encounter Care Teams Phlebotomy Lab Assistant Relationship Specialty Start Date End Date Rolanda Thakur MD 505 [place] [address] PCP - General Internal Medicine 09/19/22 documented as of this encounter
--- OUTSIDE RECORDS SUMMARY | 2025-04-18 09:20 | XMS_ITS | Encounter Summary ---
Author Organization [email or web address] Address [address] [place] [address] 7 [place] [address] Care Team Providers Care Photo Cartographer Name Role Phone Rolanda Thakur MD Primary Care Provider +1 [phone] Reason for Visit * Reason Onset Date Comments Results 04/15/2025 Encounter Details Date Type Department Care Team ([facility] Contact Info) Description 04/15/2025 Results Follow-Up [facility] CHC MED & PEDS [address] [place] [address] Kimberly Bronson RN Basic Metabolic Panel Social History Tobacco Use Types Packs/Day Years [...] Telephone Encounter - Kimberly Bronson RN - 04/15/2025 9:37 AM EDT [employer] message sent. ----- Message from Rolanda Thakur MD sent at 04/14/2025 8:44 PM EDT ----- Please call Mrs. Pineda to find out if the blood test ordered by the ordering provider is taken care of. ----- Message ----- From: Interface, Lab Results In Sent: 04/12/2025 12:03 PM EDT To: Rolanda Thakur MD documented in this encounter Plan of Treatment Not on file documented as of this encounter Visit Diagnoses Not on filedocumented in this encounter Additional Health Concerns Assessment Noted Time PHQ-9 Depression Total Score: 2 05/13/20 24 9:24 AM EDT documented as of this encounter Care Teams Photo Cartographer Relationship Specialty Start Date End Date Rolanda Thakur MD 505 [place] [address] PCP - General Internal Medicine 09/19/22 documented as of this encounter
--- OUTSIDE RECORDS SUMMARY | 2025-04-18 09:20 | XMS_ITS | Encounter Summary ---
Author Organization [employer] Address [address] [place] [address] Care Team Providers Care Spray Gun Repairer Helper Name Role Phone Rolanda Thakur MD Primary Care Provider +1- [phone] Reason for Visit * Reason Onset Date Comments Referral 05/18/2023 Encounter Details Date Type Department Care Team ([facility] st Contact Info) Description 05/18/2023 Telephone [facility] CHC MED & PEDS [address] [place] [address] Rolanda Thakur MD 505 [place] [address] Referral Social History Tobacco Use Types Packs/Day [...] used to see Dr. Chad Dempsey from [facility] butnow the office doesn't take her [...] advise. Also sent you her response from [employer]. Thanks. * Telephone Encounter - Annabella Peña [...] to Specialty: (EMG) Dr nolasco Date&Time: N/a Claims Assistant: n/a Please call pt to clarify documented in this encounter Plan of Treatment Not on file documented as of this encounter Visit Diagnoses Not on filedocumented in this encounter Care Teams Spray Gun Repairer Helper Relationship Specialty Start Date End Date Rolanda Thakur MD [address] [place] [address] PCP - General Internal Medicine 09/19/22 documented as of this encounter
--- OUTSIDE RECORDS SUMMARY | 2025-04-18 09:20 | XMS_ITS | Encounter Summary ---
Author Organization [employer] Address [address] [place] [address] Care Team Providers Care Sash Installer Name Role Phone Rolanda Thakur MD Primary Care Provider +1- [phone] Reason for Visit * Reason Comments Med Refill Encounter Details Date Type Department Care Team ([facility] st Contact Info) Description 03/02/2025 Refill [facility] CHC MED & PEDS [address] [place], [place] [phone] Rolanda Thakur MD 505 [place] [address] Diabetic polyneuropathy associated with type 2 diabetes [...] documented as of this encounter Care Teams Sash Installer Relationship Specialty Start Date End Date Rolanda Thakur MD [address] [place] [address] PCP - General Internal Medicine 09/19/22 documented as of this encounter
--- OUTSIDE RECORDS SUMMARY | 2025-04-18 09:20 | XMS_ITS | Encounter Summary ---
Author Organization [employer] Address [address] [place] [address] Care Team Providers Care Sports Marketing Coordinator Name Role Phone Rolanda Thakur MD Primary Care Provider +1- [phone] Reason for Visit * Reason Onset Date Comments Med Refill 04/17/2025 Encounter Details Date Type Department Care Team ([facility] st Contact Info) Description 04/17/2025 Telephone [facility] CHC MED & PEDS 505 [place] [address] Rolanda Thakur MD 505 [place] [address] Med Refill Social History Tobacco Use Types [...] encounter Miscellaneous Notes * Telephone Encounter - Jesi Boyd LPN - 04/17/2025 8:16 AM EDT Please review and advise patient reports only taking Synthroid 125 daily not alternating with 137 patient is requesting updated script to reflect this. Received patient message; Patient comment: I only take this one Synthroid every single day. If you look when it was alternating between the two, my numbers were under .4 when it got changed to 112 my numbers were 6.38 when I went back to taking 125 my numbers if you look at the latest TSHNT4 result it???s right therebetweenthe .4 and 4.0. I have no more Synthroid. I have none after tomorrow. I have one 125. That???s the only Synthroid I???ve been taking for over a month. I need a script. I have nothing. That???s the only thing that keeps me ali * Telephone Encounter - Lea Montes - 04/17/2025 8:03 AM EDT TC from pt requesting medication refill. Medications needing refill : Synthroid 125 MCG tablet [id number] [place] [facility] [address] [facility] Pt has no more medication and needs it urgently !! Pt stating she is scared to end up in hospital without medication documented in this encounter Plan of Treatment Not on file documented as of this encounter Visit Diagnoses Not on filedocumented in this encounter Additional Health Concerns Assessment Noted Time PHQ-9 Depression Total Score: 2 05/13/20 24 9:24 AM EDT documented as of this encounter Care Teams Sports Marketing Coordinator Relationship Specialty Start Date End Date Rolanda Thakur MD [address] [place] [address] [place] [address] PCP - General Internal Medicine 09/19/22 documented as of this encounter
--- OUTSIDE RECORDS SUMMARY | 2025-04-18 09:20 | XMS_ITS | Clinical Summary ---
Author Organization [facility] Address [address] [place] [address] Phone Care Team Providers Care Commercial Baker Helper Name Role Phone Rolanda Thakur MD Primary Care Provider +1 -[phone] Allergies Active Allergy Reactions Criticality Noted Date [...] aware that this will likely be an [id number] cost and feels as though she can afford it. I will review results and determine need for future follow-up. In the meantime she would like to hold off on statin therapy which I think is totally reasonable. Orders: ECG 12 lead Pure hypercholesterolemia 07/08/2024 Assessment & Plan (07/08/2024 4:42 PM EST): See plan above. Encounters Date Type Department Care Team Description 04/02/2025 Telephone [facility] [address] [address] [place] [address] Nikki Rawls MD from Last 3 Months Family History [...] Description 06/23/2025 7:40 AM EST Office Visit [facility] - [address] [facility] [address] [place] [address] Kadi Palacios, MARIBEL [address] [place] [address] [place] [address] Health Maintenance Due Date Last Done Comments Diabetes: Annual Foot Exam 1961 Diabetes: Annual Retina Eye Exam 1961 Falls Risk Assessment 07/20/2022 Medicare Annual Wellness Visit 07/20/2022 Social Influencers of Health Screening 07/20/2022 Diabetes: Annual Urine Albumin-Creatinine Ratio (uACR) 10/04/2023 COVID-19 Vaccine ( season) 2024 07/10/2021, 11/04/2020 Depression Screening 08/21/2024 Diabetes: Blood Sugar Control Test (HGBA1C) 01/03/2025 07/06/2024 Influenza Vaccine (#1) 2025 4, 06/26/2023, 06/27/2021, Additional history exists Diabetes: Annual [...] year. Mammo Location: [facility], [address] [place] [address], [address], . -------- FINAL REPORT -------- Dictated By: Peggy Reddy Dictated Date: 12/18/2024 07:51 ET Assigned Physician: Peggy Reddy Reviewed and Electronically Signed By: Peggy Reddy Signed Date: 12/18/2024 07:55 ET Workstation ID: [id number] Transcribed By: Self Edit Transcribed Date: 12/18/2024 [...] year. Mammo Location: [facility], [address] [place] [address], [address], . -------- FINAL REPORT -------- Dictated By: Peggy Reddy Dictated Date: 12/18/2024 07:51 ET Assigned Physician: Peggy Reddy Reviewed and Electronically Signed By: Peggy Reddy Signed Date: 12/18/2024 07:55 ET Workstation ID: [id number] Transcribed By: Self Edit Transcribed Date: 12/18/2024 07:51 ET us Self Referral Sppl IMG BI PROCEDURES Final Resul t * MOHAMUD DEXA AXIAL SKELETON (04/12/2023 7:46 AM EDT) Anatomical Region Laterality Modality Mammography 04/11/2023 3:03 PM EDT Narrative 04/12/2023 7:46 AM EDT [facility] Diagnostic Imaging Department [address] [place] [address] Patient: ANGELY PINEDA.O.B./Age/Sex: 1950 - 72 - F Unit#: [id number] Location/Status: SPDIMAM/REG CLI Mnemonic[facility] Ordering Physician: MAREN HOUGH MD Mohamud [...] probability of hip fracture of 2.2%. Code 71116 Dictating Physician: GWENDOLYN BAHENA MD Electronically Signed by: GWENDOLYN BAHENA MD Dic Date/Time: 04/12/23 0745 Sign date/Time: 04/12/23 0746 Procedure Note Gwendolyn Bahena MD - 09/26/2023 [facility] Diagnostic Imaging Department [address] [place] [address] Patient: ANGELY PINEDA /Age/Sex: 1950 - 72 - F Unit#: [id number] Location/Status: SPDIMAM/REG CLI Mnemonic[facility] Ordering Physician: MAREN HOUGH MD [facility] Dexa Axial Skeleton - 04/11/231532 Report Status:Signed [...] density of the femurs bilaterally is 0.874 gm/lw3puufe is 87% of that of young normals [...] probability of hip fracture of 2.2%. Code 37171 Dictating Physician: GWENDOLYN BAHENA MD Electronically Signed by: GWENDOLYN BAHENA MD Dic Date/Time: 04/12/2345 Sign date/Time: 04/12/23745 Maren Hough MD IMG BI PROCEDURES Final Result from Last 3 Months or Most Recently Relevant to Health Maintenance Insurance [employer] MEDICARE Care Teams Commercial Baker Helper Relationship Specialty Start Date End Date Rolanda Thakur MD [address] [place], [place] PCP - General 11/03/23
--- OUTSIDE RECORDS SUMMARY | 2025-04-18 09:20 | XMS_ITS | Encounter Summary ---
Author Organization [employer] Address [address] [address] Care Team Providers Care Division Operations Specialist Name Role Phone Rolanda Thakur MD Primary Care Provider +1- [phone] Reason for Visit * Reason Onset Date Comments Medication Question 04/04/2024 Encounter Details Date Type Department Care Team ([facility] st Contact Info) Description 04/04/2024 Telephone [facility] MEDICINE [address] [place] [address] Rolanda Thakur MD [address] [place], [place] [phone] Medication Question Social History Tobacco Use Types [...] filedocumented in this encounter Care Teams Division Operations Specialist Relationship Specialty Start Date End Date Rolanda Thakur MD [address] [place] [address] PCP - General Internal Medicine 09/19/22 documented as of this encounter
--- OUTSIDE RECORDS SUMMARY | 2025-04-18 09:20 | XMS_ITS | Encounter Summary ---
Author Organization [employer] Address [address] [address] Care Team Providers Care Sheet Rock Applier Name Role Phone Rolanda Thakur MD Primary Care Provider +1- [phone] Reason for Visit * Reason Onset Date Comments Nurse Triage 04/04/2024 Encounter Details Date Type Department Care Team ([facility] st Contact Info) Description 04/04/2024 Telephone [facility] MEDICINE [address] [place] [address] Rolanda Thakur MD 505 [place], [place] [phone] Nurse Triage Social History Tobacco Use Types [...] pt. She states that she went to [facility] ED for Anxiety panic attacks on 03/30/24- [...] got treated horribly by the staff at [facility] and she will never go there again. [...] care coordinators so that they can get [facility] ED notes from 03/30/24 Ed visit into pt. Chart and any labs, EKG's etc.. into pt. Chart for visit on 04/05/24 at 315pm. Protocol Used: Anxiety and Panic Attack (Adult) Protocol-Based Disposition: Go to ED/[facility] Now (or to Office [...] on filedocumented in this encounter Care Teams Sheet Rock Applier Relationship Specialty Start Date End Date Rolanda Thakur MD [address] [place] [address] PCP - General Internal Medicine 09/19/22 documented as of this encounter
--- OUTSIDE RECORDS SUMMARY | 2025-04-18 09:20 | XMS_ITS | Encounter Summary ---
Author Organization [employer] Address [address] [place] [address] Care Team Providers Care Factory Engineer Name Role Phone Rolanda Thakur MD Primary Care Provider +1- [phone] Reason for Visit * Reason Onset Date Comments Med Refill 03/20/2025 Encounter Details Date Type Department Care Team ([facility] st Contact Info) Description 03/20/2025 Refill [facility] CHC MED & PEDS [address] [place] [address] Rolanda Thakur MD 505 [place] [address] Social History Tobacco Use Types Packs/Day Years [...] documented as of this encounter Care Teams Factory Engineer Relationship Specialty Start Date End Date Rolanda Thakur MD [address] [place] [address] PCP - General Internal Medicine 09/19/22 documented as of this encounter
--- OUTSIDE RECORDS SUMMARY | 2025-04-18 09:20 | XMS_ITS | Encounter Summary ---
Author Organization [employer] Address [address] [place] [address] Care Team Providers Care Institutional Commodity Analyst Name Role Phone Rolanda Thakur MD Primary Care Provider +1- [phone] Reason for Visit * Reason Comments Med Refill Encounter Details Date Type Department Care Team ([facility] st Contact Info) Description 05/20/2024 Refill [facility] CHC MED & PEDS [address] [place] [address] Rolanda Thakur MD 505 [place] [address] Diabetic polyneuropathy associated with type 2 diabetes mellitus ([facility]) Social History Tobacco Use Types Packs/Day [...] 2 diabetes mellitus ([facility]) documented in this encounter Additional Health Concerns Assessment Noted Time PHQ-9 Depression Total Score: 2 05/13/20 24 9:24 AM EDT documented as of this encounter Care Teams Institutional Commodity Analyst Relationship Specialty Start Date End Date Rolanda Thakur MD [address] [place] [address] PCP - General Internal Medicine 09/19/22 documented as of this encounter
--- OUTSIDE RECORDS SUMMARY | 2025-04-18 09:20 | XMS_ITS | Encounter Summary ---
Author Organization [employer] Address [address] [place] [address] [place] [address] Care Team Providers Care Repairer Resistance Welding Machines Name Role Phone Rolanda Thakur MD Primary Care Provider +1- [phone] Encounter Details Date Type Department Care Team ([facility] st Contact Info) Description 04/08/2024 Orders Only [facility] 230 [place], [place] [phone] Rolanda Thakur MD 505 [place] [address] UTI symptoms (Primary Dx) Social History Tobacco [...] Primary documented in this encounter Care Teams Repairer Resistance Welding Machines Relationship Specialty Start Date End Date Rolanda Thakur MD [address] [place] [address] PCP - General Internal Medicine 09/19/22 documented as of this encounter
--- OUTSIDE RECORDS SUMMARY | 2025-04-18 09:20 | XMS_ITS | Encounter Summary ---
Author Organization [employer] Address [address] [place] [address] Care Team Providers Care Customer Response Representative Name Role Phone Rolanda Thakur MD Primary Care Provider +1- [phone] Reason for Visit * Reason Comments Med Refill Encounter Details Date Type Department Care Team ([facility] st Contact Info) Description 02/05/2025 Refill [facility] MEDICINE [address] [place] [address] Rolanda Thakur MD [address] [place], [place] [phone] Acquired hypothyroidism Social History Tobacco Use Types [...] encounter Miscellaneous Notes * Telephone Encounter - Tessy Becker - 02/10/2025 9:54 AM EDT Pt states she needed someone to call her in regards to a up dose on her Thyroid Medication. Pt states her diabetic income tax expert changed the dosage to 1.12. documented in this encounter Plan of Treatment Not on file documented as of this encounter Visit Diagnoses Diagnosis Acquired hypothyroidism Unspecified hypothyroidism documented in this encounter Additional Health Concerns Assessment Noted Time PHQ-9 Depression Total Score: 2 05/13/20 24 9:24 AM EDT documented as of this encounter Care Teams Customer Response Representative Relationship Specialty Start Date End Date Rolanda Thakur MD [address] [place] [address] PCP - General Internal Medicine 09/19/22 documented as of this encounter
--- OUTSIDE RECORDS SUMMARY | 2025-04-18 09:20 | XMS_ITS | Encounter Summary ---
Author Organization [employer] Address [address] [place] [address] Care Team Providers Care Economics Faculty Member Name Role Phone Rolanda Thakur MD Primary Care Provider +1- [phone] Reason for Visit * Reason Onset Date Comments EKG 06/18/2024 Encounter Details Date Type Department Care Team ([facility] Contact Info) Description 06/18/2024 Telephone [facility] CHC MED & PEDS [address] [place] [address] Rolanda Thakur MD 505 [place] [address] EKG Social History Tobacco Use Types Packs/Day [...] Given pt's symptoms, she would need a [facility] appointment to get the notes for our supervisory training specialist to process the referral. * Telephone [...] should seek a neurology referral. She states head of quality advised her to get a referral due to procedure done for cataracts might have struck a nerve and that might be were the headaches are coming from. * Telephone Encounter - Annabella Peña - 06/18/2024 4:03 PM EDT Tc from pt requesting status on order for EKG. Contact Paulette at [phone] documented in this encounter Plan of Treatment Not on file documented as of this encounter Visit Diagnoses Not on filedocumented in this encounter Additional Health Concerns Assessment Noted Time PHQ-9 Depression Total Score: 2 05/13/20 24 9:24 AM EDT documented as of this encounter Care Teams Economics Faculty Member Relationship Specialty Start Date End Date Rolanda Thakur MD [address] [place] [address] PCP - General Internal Medicine 09/19/22 documented as of this encounter
--- OUTSIDE RECORDS SUMMARY | 2025-04-18 09:20 | XMS_ITS | Encounter Summary ---
Author Organization [employer] Address [address] [address] Care Team Providers Care Solutions Analyst Name Role Phone Rolanda Thakur MD Primary Care Provider +1- [phone] Reason for Visit * Reason Onset Date Comments Call Back Request 11/27/2024 Encounter Details Date Type Department Care Team ([facility] st Contact Info) Description 11/27/2024 Telephone [facility] MEDICINE [address] [place] [address] Rolanda Thakur MD 505 [place], [place] [phone] Call Back Request Social History Tobacco Use [...] documented as of this encounter Care Teams Solutions Analyst Relationship Specialty Start Date End Date Rolanda Thakur MD [address] [place] [address] PCP - General Internal Medicine 09/19/22 documented as of this encounter
--- OUTSIDE RECORDS SUMMARY | 2025-04-18 09:20 | XMS_ITS | Encounter Summary ---
Author Organization [employer] Address [address] [place] [address] Care Team Providers Care Payment Processor Name Role Phone Rolanda Thakur MD Primary Care Provider +1- [phone] Encounter Details Date Type Department Care Team ([facility] Contact Info) Description 05/22/2024 Orders Only [facility] CHC MED & PEDS [address] [place] [address] Rolanda Thakur MD [address] [place] [address] Social History Tobacco Use Types Packs/Day Years [...] documented as of this encounter Care Teams Payment Processor Relationship Specialty Start Date End Date Rolanda Thakur MD [address] [place] [address] PCP - General Internal Medicine 09/19/22 documented as of this encounter
--- OUTSIDE RECORDS SUMMARY | 2025-04-18 09:20 | XMS_ITS | Encounter Summary ---
Author Organization [employer] Address [address] [place] [address] Care Team Providers Care Chief Radiation Therapist Name Role Phone Rolanda Thakur MD Primary Care Provider +1- [phone] Reason for Visit * Reason Onset Date Comments Med Refill 03/22/2025 Encounter Details Date Type Department Care Team ([facility] st Contact Info) Description 03/22/2025 Refill [facility] CHC MED & PEDS [address] [place] [address] Rolanda Thakur MD [address] [place] [address] Social History Tobacco Use Types Packs/Day Years [...] documented as of this encounter Care Teams Chief Radiation Therapist Relationship Specialty Start Date End Date Rolanda Thakur MD [address] [place] [address] PCP - General Internal Medicine 09/19/22 documented as of this encounter
--- OUTSIDE RECORDS SUMMARY | 2025-04-18 09:20 | XMS_ITS | Encounter Summary ---
Author Organization [employer] Address [address] [place] [address] 7 [place] [address] Care Team Providers Care College Athletic Director Name Role Phone Rolanda Thakur MD Primary Care Provider +1- [phone] Encounter Details Date Type Department Care Team (Latest Contact Info) Description 03/20/2025 Results Follow-Up [facility] CHC MED & PEDS [address] [place] [address] Rolanda Thakur MD [address] [place] [address] TSH W/Reflex to FT4, CBC auto differential Social History Tobacco Use Types Packs/Day Years [...] documented as of this encounter Care Teams College Athletic Director Relationship Specialty Start Date End Date Rolanda Thakur MD [address] [place] [address] PCP - General Internal Medicine 09/19/22 documented as of this encounter
--- OUTSIDE RECORDS SUMMARY | 2025-04-18 09:20 | XMS_ITS | Encounter Summary ---
Author Organization [employer] Address [address] [place] [address] Care Team Providers Care Accounts Payable Processor Name Role Phone Rolanda Thakur MD Primary Care Provider +1- [phone] Reason for Visit * Reason Onset Date Comments Med Refill 03/31/2025 Encounter Details Date Type Department Care Team ([facility] st Contact Info) Description 03/31/2025 Refill [facility] CHC MED & PEDS [address] [place] [address] Rolanda Thakur MD 505 [place] [address] Panic attack; Anxiety Social History Tobacco Use [...] as of this encounter Visit Diagnoses Diagnosis Panic attack Panic disorder without agoraphobia Anxiety Anxiety state, unspecified documented in this encounter Additional Health Concerns Assessment Noted Time PHQ-9 Depression Total Score: 2 05/13/20 24 9:24 AM EDT documented as of this encounter Care Teams Accounts Payable Processor Relationship Specialty Start Date End Date Rolanda Thakur MD [address] [place] [address] PCP - General Internal Medicine 09/19/22 documented as of this encounter
--- OUTSIDE RECORDS SUMMARY | 2025-04-18 09:20 | XMS_ITS | Encounter Summary ---
Author Organization [employer] Address [address] [place] [address] Care Team Providers Care Computer Installer Name Role Phone Rolanda Thakur MD Primary Care Provider +1- [phone] Reason for Visit * Reason Onset Date Comments Medication Question 12/09/2022 Encounter Details Date Type Department Care Team ([facility] st Contact Info) Description 12/09/2022 Telephone [facility] CHC MED & PEDS [address] [place], [place] [phone] Rolanda Thakur MD 505 [place] [address] Medication Question Social History Tobacco Use Types [...] * Telephone Encounter - Hannah Betancourt - 12/09/2022 3:51 PM EDT Tc from [facility] requesting a clarification in new script for Synthroid 50 MCG tablet if dosage was sent incorrectly because in last script (levothyroxine (Synthroid) 150 MCG tablet) it fcl027 MCG and New script is it 50 mcg so pharmacy is requesting some clarification Please contact Pharmacy at [phone] documented in this encounter Plan of Treatment Not on file documented as of this encounter Visit Diagnoses Not on filedocumented in this encounter Care Teams Computer Installer Relationship Specialty Start Date End Date Rolanda Thakur MD [address] [place] [address] PCP - General Internal Medicine 09/19/22 documented as of this encounter
--- OUTSIDE RECORDS SUMMARY | 2025-04-18 09:20 | XMS_ITS | Encounter Summary ---
Author Organization [employer] Address [address] [place] [address] Care Team Providers Care Membership Correspondent Name Role Phone Rolanda Thakur MD Primary Care Provider +1- [phone] Reason for Visit * Reason Onset Date Comments Med Refill 04/04/2024 Encounter Details Date Type Department Care Team (Late st Contact Info) Description 04/04/2024 Telephone [facility] MEDICINE [address] [place] [address] Rolanda Thakur MD [address] [place], [place] [phone] Med Refill Social History Tobacco Use Types [...] 5 mg tablets To be sent to: [facility] documented in this encounter Plan of Treatment Not on file documented as of this encounter Visit Diagnoses Diagnosis Anxiety- Primary Anxiety state, unspecified documented in this encounter Care Teams Membership Correspondent Relationship Specialty Start Date End Date Rolanda Thakur MD 505 [place] [address] PCP - General Internal Medicine 09/19/22 documented as of this encounter
--- OUTSIDE RECORDS SUMMARY | 2025-04-18 09:20 | XMS_ITS | Encounter Summary ---
Author Organization [employer] Address [address] [place] [address] 7 [place] [address] Care Team Providers Care Sheet Turner Name Role Phone Rolanda Thakur MD Primary Care Provider +1 [phone] Encounter Details Date Type Department Care Team ([facility] st Contact Info) Description 11/20/2024 Orders Only [facility] CHC MED & PEDS [address] [place] [address] Rolanda Thakur MD 505 [place] [address] Type 2 diabetes mellitus without complication, without long-term current use of insulin ([facility]) (Primary Dx); UTI symptoms Social History [...] long-term current use of insulin ([facility]) UTI symptoms CBC WITH AUTO DIFFERENTIAL Routine 11/23/2024 9:00 AM EDT Type 2 diabetes mellitus without complication, without long-term current use of insulin ([facility]) BASIC METABOLIC PANEL Routine 11/23/2024 9:00 AM EDT Type 2 diabetes mellitus without complication, without long-term current use of insulin ([facility]) documented in this encounter Results * Culture, Urine, Routine (11/23/2024 9:05 AM EDT) Urine Urine specimen obtained by clean catch procedure / Unknown 11/23/2024 9:05 AM EDT 11/23/2024 11:26 AM EDT Comment:[facility] - 11/24/2024 11:22 AM EDT Urine Culture Report Result Urine Culture 10,000 to 50,000 cfu/ml Urine Culture Mixed bacterial hailey characteristic of Urine Culture urogenital contamination. Specimen Source: Urine clean catch us Rolanda Thakur MD LAB MICROBIOLOGY - GENERAL ORDERABLES Final Result [facility] [address] [place] [address] [phone] * (ABNORMAL) CBC auto differential (11/23/2024 9:00 AM EDT) White Blood Count 8.5 4.8 - 10.8 X10*3/uL [facility] Red Blood Count 4.27 4.20 - 5.50 X10*6/uL [facility] Hemoglobin 12.8 12.0 - 16.0 g/dl [facility] Hematocrit 37.0 37.0 - 47.0 % [facility] Mean Corpuscular Volume 86.7 80.0 - 98.0 fL [facility] Mean Corpuscular Hemoglobin 30.0 27.0 - 33.0 pg [facility] Mean Corpuscular HGB Conc 34.6 31.0 - 35.0 g/dl [facility] Red Cell Distribution Width 13.1 11.0 - 16.0 % [facility] Platelet Count 269 160 - 400 X10*3/uL [facility] Mean Platelet Volume 9.1(L) 9.4 - 12.3 fL [facility] Neutrophils Percent Auto 64.4 45 - 73 % [facility] Imm Gran Pct Auto 0.4 0.0 - 0.4 % [facility] Lymphocytes Percent Auto 23.8 20 - 40 % [facility] Monocytes Percent Auto 5.9 2 - 11 % [facility] Eosinophils Percent Auto 4.7(H) 0 - 4 % [facility] Basophils Percent Auto 0.8 0 - 2 % [facility] NRBC Pct Auto 0.0 0.0 - 0.2 /100WBC [facility] Neutrophils Absolute Auto 5.4 2.0 - 8.3 x10*3/uL [facility] Imm Gran Abs Auto 0.03 0.00 - 0.03 X10*3/uL [facility] Lymphocytes Absolute Auto 2.0 1.2 - 4.9 X10*3/uL [facility] Monocytes Absolute Auto 0.5 0.1 - 1.2 X10*3/uL [facility] Eosinophils Absolute Auto 0.4 0.0 - 0.4 X10*3/uL [facility] Basophils Absolute Auto 0.1 0.0 - 0.2 X10*3/uL [facility] NRBC Abs Auto 0.000 0.0 - 0.012 X10*3/uL [facility] Blood Venous blood specimen / Unknown 11/23/2024 9:00 AM EDT 11/23/2024 11:37 AM EDT us Rolanda Thakur MD LAB BLOOD ORDERABLES Final Result [facility] [address] [place] [phone] * (ABNORMAL) Basic Metabolic Panel (11/23/2024 9:00 AM EDT) Sodium 135 135 - 145 mmol/L [facility] Potassium 4.4 3.3 - 5.1 mmol/L [facility] Chloride 103 96 - 108 mmol/L [facility] Carbon Dioxide 24 22 - 29 mmol/L [facility] Anion Gap 12 12 - 20 [facility] Urea Nitrogen (BUN) 21(H) 9 - 16 mg/dL [facility] Creatinine, Serum 0.89 0.5 - 1.4 mg/dL [facility] Estimated Glomerular Filt Rate >60 [facility] Comment:Chronic Kidney Disea se: Estimated GFR < 60 mL/min/[id number] Kidney Disease: Estimated GFR < 15 mL/min/1.73m2 Glucose 161(H) 60 - 115 mg/dL [facility] Calcium 10.2 8.4 - 10.2 mg/dL [facility] Blood Venous blood specimen / Unknown 11/23/2024 9:00 AM EDT 11/23/2024 11:37 AM EDT Rolanda Thakur MD LAB BLOOD ORDERABLES Final Result [facility] [address] [place] [address] [phone] documented in this encounter Visit Diagnoses Diagnosis Type 2 diabetes mellitus without complication, without long-term current use of insulin ([facility])- Primary UTI symptoms documented in this encounter Additional Health Concerns Assessment Noted Time PHQ-9 Depression Total Score: 2 05/13/20 24 9:24 AM EDT documented as of this encounter Care Teams Sheet Turner Relationship Specialty Start Date End Date Rolanda Thakur MD [address] [place] [address] PCP - General Internal Medicine 09/19/22 documented as of this encounter
--- OUTSIDE RECORDS SUMMARY | 2025-04-18 09:20 | XMS_ITS | Encounter Summary ---
Author Organization [employer] Address [address] [place] [address] 7 [place] [address] Care Team Providers Care Social Work Therapist Name Role Phone Rolanda Thakur MD Primary Care Provider +1- [phone] Encounter Details Date Type Department Care Team ([facility] Contact Info) Description 03/24/2025 Results Follow-Up [facility] CHC MED & PEDS [address] [place] [address] Rolanda Thakur MD [address] [place] [address] [employer] Social History Tobacco Use Types Packs/Day Years [...] documented as of this encounter Care Teams Social Work Therapist Relationship Specialty Start Date End Date Rolanda Thakur MD [address] [place] [address] PCP - General Internal Medicine 09/19/22 documented as of this encounter
--- OUTSIDE RECORDS SUMMARY | 2025-04-18 09:20 | XMS_ITS | Encounter Summary ---
Author Organization [employer] Address [address] [place] [address] 7 [place] [address] Care Team Providers Care Geological Aide Name Role Phone Rolanda Thakur MD Primary Care Provider [phone] Encounter Details Date Type Department Care Team ([facility] st Contact Info) Description 06/21/2023 Abstract [facility] MEDICINE [address] [place] [address] Sherrie Caballero Social History Tobacco Use Types [...] on filedocumented in this encounter Care Teams Geological Aide Relationship Specialty Start Date End Date Rolanda Thakur MD [address] [place] [address] PCP - General Internal Medicine 09/19/22 documented as of this encounter
--- OUTSIDE RECORDS SUMMARY | 2025-04-18 09:20 | XMS_ITS | Encounter Summary ---
Author Organization [employer] Address [address] [address] Care Team Providers Care Heating And Cooling Technician Name Role Phone Rolanda Thakur MD Primary Care Provider [phone]- [phone] Reason for Visit * Reason Onset Date Comments Referral 02/28/2025 Encounter Details Date Type Department Care Team ([facility] st Contact Info) Description 02/28/2025 Telephone [facility]IC[facility] [address] [place] [address] Rolanda Thakur MD [address] [place], [place] [phone] Referral Social History Tobacco Use Types Packs/Day [...] * Telephone Encounter - Raz Manuel - 02/28/2025 9:41 AM EDT TC from pt requesting to change location of endocrinology referral: Address: [address] [place] [address] [place] [address] Facility Name: [facility] Type of Specialist: Endocrinology Provider: Dr. Aren Banerjee documented in this encounter Plan of Treatment Not on file documented as of this encounter Visit Diagnoses Not on filedocumented in this encounter Additional Health Concerns Assessment Noted Time PHQ-9 Depression Total Score: 2 05/13/20 24 9:24 AM EDT documented as of this encounter Care Teams Heating And Cooling Technician Relationship Specialty Start Date End Date Rolanda Thakur MD [address] [place] [phone] PCP - General Internal Medicine 09/19/22 documented as of this encounter
--- OUTSIDE RECORDS SUMMARY | 2025-04-18 09:20 | XMS_ITS | Encounter Summary ---
Author Organization [employer] Address [address] [place] [address] Care Team Providers Care Fur Scraper Name Role Phone Rolanda Thakur MD Primary Care Provider [phone]- [phone] Reason for Referral * Consultation (Routine) - Closed Specialty Diagnoses / Procedures Referred By Freddy t Referred To Contact Chiropractic Medicine Diagnoses Chronic left-sided low back pain with left-sided sciatica Rolanda Thakur MD [address] [place] [address] Phone: tel: fax: [facility] fax: Referral ID Status Reason Start Date Expiration Date V isits Requested Visits Authorized [id number] Closed Specialty Services Required 08/08/2024 08/08/2025 1 1 * Consultation (Routine) - Closed Specialty Diagnoses / Procedures Referred By Freddy t Referred To Contact Physical Therapy Diagnoses Chronic left-sided low back pain with left-sided sciatica Rolanda Thakur MD [address] [place] [address] Phone: tel: fax: [facility] Physical Therapy [address] [place] [address] Phone: tel: fax: Referral ID Status Reason Start Date Expiration Date V isits Requested Visits Authorized [id number] Closed Specialty Services Required 08/05/2024 08/05/2025 1 1 * Consultation (Routine) - Closed Specialty Diagnoses / Procedures Referred By Freddy meadows Referred To Contact Chiropractic Medicine Diagnoses Chronic left-sided low back pain with left-sided sciatica Rolanda Thakur MD [address] [place] [address] Phone: tel: fax: Referral ID Status Reason Start Date Expiration Date V isits Requested Visits Authorized [id number] Closed Specialty Services Required 08/02/2024 08/02/2025 1 1 Encounter Details Date Type Department Care Team ([facility] st Contact Info) Description 08/02/2024 Orders Only [facility] CHC MED & PEDS [address] [place] [address] Rolanda Thakur MD [address] [place] [address] Chronic left-sided low back pain with left-sided [...] AM EST Narrative 09/02/2024 11:24 AM EST [facility] [address] [facility] [place] [address] XRay Report Signed Patient: Angely Pineda MR#: [id number] : 1950 Acct:[id number] Age/Sex: 74 / F ADM Date: 08/12/24 Loc: HO.HMGCX Attending Dr: Wyatt Golden MD Ordering Physician: Wyatt Golden MD Date of Service: 08/12/24 Procedure(s): XR cervical spine 5V Accession Number(s): [id number] cc: Rolanda Thakur MD; Wyatt Golden MD [...] 09/02/24 1121 DD/ 0950 TD/TT: 08/12/24 1000 Steel Inspector: Procedure Note Donotuseinterpreter, Image - 09/02/2024 [facility] [place] [address] XRay Report Signed Patient: Erma Pineda#: [id number] : 1950cct:[id number] Age/Sex: 74 / FADM Date: 08/12/24 Loc: HO.HMGCX Attending Dr: Wyatt Golden MD Ordering Physician: Wyatt Golden MD Date of Service: 08/12/24 Procedure(s): XR cervical spine 5V Accession Number(s): [id number] cc: Rolanda Thakur MD; Wyatt Golden MD [...] by: Yuridia Becerra MD 09/02/2024 11:21 AM [facility] Dictated By: Yuridia Becerra MD Signed By: <Electronically signed by Yuridia Becerra MD in OV> 09/02/24 1121 DD/ 0950 TD/TT: 08/12/24 1000 Steel Inspector: Wyatt Mcdonald MD IMG XR PROCEDURES Iftikhar mecca Result - Final documented in this encounter Visit Diagnoses Diagnosis Chronic left-sided low back pain with left-sided sciatica- Primary documented in this encounter Additional Health Concerns Assessment Noted Time PHQ-9 Depression Total Score: 2 05/13/20 24 9:24 AM EDT documented as of this encounter Care Teams Fur Scraper Relationship Specialty Start Date End Date Rolanda Thakur MD [address] [place] [address] PCP - General Internal Medicine 09/19/22 documented as of this encounter
--- OUTSIDE RECORDS SUMMARY | 2025-04-18 09:20 | XMS_ITS | Encounter Summary ---
Author Organization [employer] Address [address] [place] [address] 7 [place] [address] Care Team Providers Care Canvas Shrinker Name Role Phone Rolanda Thakur MD Primary Care Provider [phone]- [phone] Encounter Details Date Type Department Care Team ([facility] st Contact Info) Description 03/06/2025 Orders Only [facility] CHC MED & PEDS [address] [place], [place] [phone] Rolanda Thakur MD [address] [place] [address] Type 2 diabetes mellitus without complication, without long-term current use of insulin ([facility]) (Primary Dx) Social History Tobacco Use Types [...] current use of insulin ([facility])- Primary documented in this encounter Additional Health Concerns Assessment Noted Time PHQ-9 Depression Total Score: 2 05/13/20 24 9:24 AM EDT documented as of this encounter Care Teams Canvas Shrinker Relationship Specialty Start Date End Date Rolanda Thakur MD [address] [place] [address] PCP - General Internal Medicine 09/19/22 documented as of this encounter
--- OUTSIDE RECORDS SUMMARY | 2025-04-18 09:20 | XMS_ITS | Encounter Summary ---
Author Organization [employer] Address [address] [place] [address] 7 [place] [address] Care Team Providers Care Photographer'S Assistant Name Role Phone Rolanda Thakur MD Primary Care Provider [phone] Encounter Details Date Type Department Care Team ([facility] Contact Info) Description 04/18/2025 Orders Only [facility] CHC MED & PEDS [address] [place], [place] [phone] Migdalia Loza FNP [address] [place] [address] Acquired hypothyroidism (Primary Dx); UTI symptoms; Type 2 diabetes mellitus without complication, without long-term current use of insulin ([facility]) Social History Tobacco Use Types [...] Type Priority Associated Diagnoses Orde r Schedule TSH W/Reflex to FT4 Lab Routine Acquired hypothyroidism Expected: 04/18/2025 (Approximate), Expires: 04/18/2026 Urinalysis, Complete, with Reflex to Culture Lab Routine UTI symptoms Expected: 04/18/2025 (Approximate), Expires: 04/18/2026 documented as of this encounter Visit Diagnoses Diagnosis Acquired hypothyroidism- Primary Unspecified hypothyroidism UTI symptoms Type 2 diabetes mellitus without complication, without long-term current use of insulin ([facility]) documented in this encounter Additional Health Concerns Assessment Noted Time PHQ-9 Depression Total Score: 2 05/13/20 24 9:24 AM EDT documented as of this encounter Care Teams Photographer'S Assistant Relationship Specialty Start Date End Date Rolanda Thakur MD [address] [place] [address] PCP - General Internal Medicine 09/19/22 documented as of this encounter
--- OUTSIDE RECORDS SUMMARY | 2025-04-18 09:20 | XMS_ITS | Clinical Summary ---
Author Organization [facility] Facility Address [address] [place] [address] Care Team Providers Care Accounts Receivable Clerk Name Role Phone Maren Hough MD Primary Care Provider [phone] Social History Tobacco Use Types Packs/Day Years [...] patient's age to complete this topic Insurance [facility] Medicare [facility] Medicare Care Teams Accounts Receivable Clerk Relationship Specialty Start Date End Date Maren Hough MD [address] [place] [address] PCP - General Family Medicine 06/20/22
--- OUTSIDE RECORDS SUMMARY | 2025-04-18 09:20 | XMS_ITS | Encounter Summary ---
Author Organization [employer] Address [address] [place] [address] Care Team Providers Care Flamer After Lasting Name Role Phone Rolanda Thakur MD Primary Care Provider [phone] Reason for Referral * Consultation (Routine) - Authorized Specialty Diagnoses / Procedures Referred By Contac t Referred To Contact Pharmacy Diagnoses Type 2 diabetes mellitus without complication, without long-term current use of insulin (CMS/HCC) Rolanda Thakur MD [address] [place] [address] Phone: tel: fax: Referral ID Status Reason Start Date Expiration Date Visits Requested Visits Authorized [id number] Authorized Consult and Treat 04/14/2025 04/14/2026 6 6 Encounter Details Date Type Department Care Team (Late st Contact Info) Description 04/14/2025 Orders Only [facility] CHC MED & PEDS [address] [place] [address] Rolanda Thakur MD [address] [place] [address] Type 2 diabetes mellitus without complication, without [...] without long-term current use of insulin (CMS/HCC) Ordered: 04/14/2025 documented as of this encounter Visit Diagnoses Diagnosis Type 2 diabetes mellitus without complication, without long-term current use of insulin (CMS/HCC)- Primary documented in this encounter Additional Health Concerns Assessment Noted Time PHQ-9 Depression Total Score: 2 05/13/20 24 9:24 AM EDT documented as of this encounter Care Teams Flamer After Lasting Relationship Specialty Start Date End Date Rolanda Thakur MD [address] [place] [address] PCP - General Internal Medicine 09/19/22 documented as of this encounter
--- OUTSIDE RECORDS SUMMARY | 2025-04-18 09:20 | XMS_ITS | Encounter Summary ---
Author Organization [employer] Address [address] [address] Care Team Providers Care Child Adolescent Care Name Role Phone Rolanda Thakur MD Primary Care Provider +1- [phone] Reason for Visit * Reason Onset Date Comments Nurse Triage 04/17/2025 Encounter Details Date Type Department Care Team ([facility] st Contact Info) Description 04/17/2025 Telephone [facility] MEDICINE [address] [place] [address] Rolanda Thakur MD [address] [place], [place] [phone] Nurse Triage Social History Tobacco Use Types [...] Telephone Encounter - Henny Tan RN - 04/17/2025 4:28 PM EDT Call returned to Angely Pineda to triage below at [phone]. Having urinary frequency and flankpain 10/28. Denies any pelvic pain, N/V, fever or pain. No dark color or odor. Pt states unable to come into office tomorrow due to working until 4:30pm. Pt wants PCP to place UA and cx order to be sent to [facility] labs. Pt advised will send request but also reminded that our [facility] is open on Monday 9a-1p and UA can be done as POCT. Advised will forward message as requested but cannot guarantee that order to be placed without in office eval. Reviewed home care advise, ER precautions and reasons to call back. Protocol Used: Urinary Symptoms (Adult) Protocol-Based Disposition: See in Office or Video Visit Today Override (Final) Disposition: Discuss with PCP and Callback by Nurse Override Reason: Caller declined suggested disposition Video visit offer not recorded Positive Triage Question: * Urinating more frequently than usual (i.e., frequency) OR new-onset of the feeling of an urgent need to urinate (i.e., urgency) * All higher-acuity triage questions were negative Care Advice Discussed: * Reasons To Call Back - Fever occurs - Pain or burning with urination - Unable to urinate and bladder feels full - You become worse * Telephone Encounter - Rhys Becerraarez - 04/17/2025 4:22 PM EDT Symptom: Vaginal Symptoms - Not Bleeding Outcome: Schedule an appointment to be seen within 24 hours Reason: Caller denied all higher acuity questions The caller accepted this outcome. Frequent urination/ pain level 3 Drinks cranberry juice every day in the am wants to resolve before worsens, . Pt unable to come in tomorrow due to working , but looking for lab orders so she may do them Monday documented in this encounter Plan of Treatment Not on file documented as of this encounter Visit Diagnoses Not on filedocumented in this encounter Additional Health Concerns Assessment Noted Time PHQ-9 Depression Total Score: 2 05/13/20 24 9:24 AM EDT documented as of this encounter Care Teams Child Adolescent Care Relationship Specialty Start Date End Date Rolanda Thakur MD [address] [place] [phone] PCP - General Internal Medicine 09/19/22 documented as of this encounter
--- OUTSIDE RECORDS SUMMARY | 2025-04-18 09:21 | XMS_ITS | Encounter Summary ---
Author Organization [employer] Address [address] [place] [address] 7 [place] [address] Care Team Providers Care Goat Driver Name Role Phone Rolanda Thakur MD Primary Care Provider +1- [phone] Encounter Details Date Type Department Care Team ([facility] st Contact Info) Description 09/23/2024 Orders Only [facility]C MED & PEDS [address] [place] [address] Rolanda Thakur MD 505 [place] [address] Acquired hypothyroidism (Primary Dx); Benign essential hypertension [...] PM EST) Aldosterone 2 see note ng/dL [facility] Comment:Unable to flag abnor mal result(s), please refer to reference range(s) below:Adult Reference Ranges for Aldosterone, LC/MS/MS: Upright 8:00 - 10:00 am < or = 28 ng/dL Upright 4:00 - 6:00 pm < or = 21 ng/dL Supine 8:00 - 10:00 am 3 - 16 ng/dLTHIS TEST WAS PERFORMED AT:[employer] [id number] [place] [address]JHMASOBTHEO PEDERSEN MD,PHD Plasma Renin Activity 0.52 0.25 - 5.82 ng/mL/h [facility] Aldosterone/Renin Ratio 3.8 0.9 - 28.9 Ratio [facility] Comment:This test was develo ped and its analytical performancecharacteristics have been determined by [employer] [place], [place]. It hasnot been cleared or approved by the U.S. Food and DrugAdministration. This assay has been validated pursuantto the CLIA regulations and is used for clinicalpurposes.THIS TEST WAS PERFORMED AT:[employer] [id number] [place] [address]UAUCKELTHEO PEDERSEN MD,PHD Blood Venous blood specimen / Unknown 09/24/2024 1:40 PM EST 09/24/2024 4:21 PM EST Rolanda Thakur MD LAB BLOOD ORDERABLES Final Result [facility] [address] [place] [phone] * TSH W/Reflex to FT4 (09/24/2024 1:40 PM EST) TSH reflex Free T4 0.38 0.32 - 4.0 uIU/mL [facility] Blood Venous blood specimen / Unknown 09/24/2024 1:40 PM EST 09/24/2024 4:21 PM EST us Rolanda Thakur MD LAB BLOOD ORDERABLES Final Result Performing Organization Address [facility]/ZIP Co de Phone Number [facility] [address] [place] [phone] * (ABNORMAL) Basic Metabolic Panel, Fasting (09/24/2024 1:40 PM EST) Sodium 139 135 - 145 mmol/L [facility] Potassium 3.8 3.3 - 5.1 mmol/L [facility] Chloride 106 96 - 108 mmol/L [facility] Carbon Dioxide 22 22 - 29 mmol/L [facility] Anion Gap 15 12 - 20 [facility] Urea Nitrogen (BUN) 13 9 - 16 mg/dL [facility] Creatinine, Serum 0.94 0.5 - 1.4 mg/dL [facility] Estimated Glomerular Filt Rate 58 [facility] Comment:Chronic Kidney Disea se: Estimated GFR < 60 mL/min/1.08z3Tpzxtt Kidney Disease: Estimated GFR < 15 mL/min/1.73m2 Glucose Fasting 169(H) 60 - 99 mg/dL [facility] Comment:A fasting glucose of 126 mg/dl or greater on more than oneoccasion is considered diagnostic of diabetes. Calcium 9.9 8.4 - 10.2 mg/dL [facility] Blood Venous blood specimen / Unknown 09/24/2024 1:40 PM EST 09/24/2024 4:21 PM EST us Rolanda Thakur MD LAB BLOOD ORDERABLES Final Result Performing Organization Address City/[facility]/ZIP Co de Phone Number [facility] [address] [place] [phone] * (ABNORMAL) CBC auto differential (09/24/2024 1:40 PM EST) White Blood Count 7.0 4.8 - 10.8 X10*3/uL [facility] Red Blood Count 4.23 4.20 - 5.50 X10*6/uL [facility] Hemoglobin 12.6 12.0 - 16.0 g/dl [facility] Hematocrit 37.0 37.0 - 47.0 % [facility] Mean Corpuscular Volume 87.5 80.0 - 98.0 fL [facility] Mean Corpuscular Hemoglobin 29.8 27.0 - 33.0 pg [facility] Mean Corpuscular HGB Conc 34.1 31.0 - 35.0 g/dl [facility] Red Cell Distribution Width 12.8 11.0 - 16.0 % [facility] Platelet Count 251 160 - 400 X10*3/uL [facility] Mean Platelet Volume 9.5 9.4 - 12.3 fL [facility] Neutrophils Percent Auto 59.8 45 - 73 % [facility] Imm Gran Pct Auto 0.3 0.0 - 0.4 % [facility] Lymphocytes Percent Auto 26.1 20 - 40 % [facility] Monocytes Percent Auto 8.6 2 - 11 % [facility] Eosinophils Percent Auto 4.3(H) 0 - 4 % [facility] Basophils Percent Auto 0.9 0 - 2 % [facility] NRBC Pct Auto 0.0 0.0 - 0.2 /100WBC [facility] Neutrophils Absolute Auto 4.2 2.0 - 8.3 x10*3/uL [facility] Imm Gran Abs Auto 0.02 0.00 - 0.03 X10*3/uL [facility] Lymphocytes Absolute Auto 1.8 1.2 - 4.9 X10*3/uL [facility] Monocytes Absolute Auto 0.6 0.1 - 1.2 X10*3/uL [facility] Eosinophils Absolute Auto 0.3 0.0 - 0.4 X10*3/uL [facility] Basophils Absolute Auto 0.1 0.0 - 0.2 X10*3/uL [facility] NRBC Abs Auto 0.000 0.0 - 0.012 X10*3/uL [facility] Blood Venous blood specimen / Unknown 09/24/2024 1:40 PM EST 09/24/2024 4:21 PM EST Rolanda Thakur MD LAB BLOOD ORDERABLES Final Result [facility] [address] [place] [phone] documented in this encounter Visit Diagnoses Diagnosis Acquired hypothyroidism- Primary Unspecified hypothyroidism Benign essential hypertension Essential hypertension, benign documented in this encounter Additional Health Concerns Assessment Noted Time PHQ-9 Depression Total Score: 2 05/13/20 24 9:24 AM EDT documented as of this encounter Care Teams Goat Driver Relationship Specialty Start Date End Date Rolanda Thakur MD [address] [place] [address] PCP - General Internal Medicine 09/19/22 documented as of this encounter
--- OUTSIDE RECORDS SUMMARY | 2025-04-18 09:21 | XMS_ITS | Encounter Summary ---
Author Organization [employer] Address [address] [place] [address] Care Team Providers Care Career Professional Name Role Phone Rolanda Thakur MD Primary Care Provider +1- [phone] Reason for Visit * Reason Onset Date Comments Med Refill 12/26/2024 Encounter Details Date Type Department Care Team ([facility] st Contact Info) Description 12/26/[address] [facility] CHC MED & PEDS [address] [place] [address] Rolanda Thakur MD 505 [place] [address] Acquired hypothyroidism Social History Tobacco Use Types [...] as of this encounter Care Teams Career Professional Relationship Specialty Start Date End Date Rolanda Thakur MD [address] [place] [address] PCP - General Internal Medicine 09/19/22 documented as of this encounter
--- OUTSIDE RECORDS SUMMARY | 2025-04-18 09:21 | XMS_ITS | Encounter Summary ---
Author Organization [employer] Address [address] [place] [address] Care Team Providers Care Bmw Service Technician Name Role Phone Rolanda Thakur MD Primary Care Provider +1- [phone] Reason for Visit * Reason Onset Date Comments Nurse Triage 01/03/2024 Encounter Details Date Type Department Care Team ([facility] st Contact Info) Description 01/03/2024 Telephone [facility] MEDICINE [address] [place] [address] Rolanda Thakur MD 505 [place], [place] [phone] Nurse Triage Social History Tobacco Use Types [...] on filedocumented in this encounter Care Teams Bmw Service Technician Relationship Specialty Start Date End Date Rolanda Thakur MD [address] [place] [address] PCP - General Internal Medicine 09/19/22 documented as of this encounter
--- OUTSIDE RECORDS SUMMARY | 2025-04-18 09:21 | XMS_ITS | Encounter Summary ---
Author Organization [employer] Address 75 [facility] 7 [place] [address] Care Team Providers Care Cabin Cleaner Name Role Phone Rolanda Thakur MD Primary Care Provider +1- [phone] Reason for Visit * Reason Onset Date Comments Med Refill 08/19/2024 Encounter Details Date Type Department Care Team (Late st Contact Info) Description 08/19/2024 Refill [facility] [address] [place] [address] Wyatt Huizar MD [address] [place] [address] Neck pain on left side Social History [...] documented as of this encounter Care Teams Cabin Cleaner Relationship Specialty Start Date End Date Rolanda Thakur MD [address] [place] [address] PCP - General Internal Medicine 09/19/22 documented as of this encounter
--- OUTSIDE RECORDS SUMMARY | 2025-04-18 09:21 | XMS_ITS | Encounter Summary ---
Author Organization [employer] Address [address] [place] [address] Care Team Providers Care Manager Of Production Name Role Phone Rolanda Thakur MD Primary Care Provider +1- [phone] Reason for Visit * Reason Onset Date Comments Call Back Request 11/17/2023 Encounter Details Date Type Department Care Team ([facility] st Contact Info) Description 11/17/2023 Telephone [facility] MEDICINE [address] [place] [address] Rolanda Thakur MD 505 [place], [place] [phone] Call Back Request Social History Tobacco Use [...] Message sent to PCP for review through [employer] portal * Telephone Encounter - Jenny Neff - 11/17/2023 8:06 AM EDT Tc from pt requesting a call back pt stated needs more information and clarifications 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 Please contact pt. documented in this encounter Plan of Treatment Not on file documented as of this encounter Visit Diagnoses Not on filedocumented in this encounter Care Teams Manager Of Production Relationship Specialty Start Date End Date Rolanda Thakur MD [address] [place] [address] PCP - General Internal Medicine 09/19/22 documented as of this encounter
--- OUTSIDE RECORDS SUMMARY | 2025-04-18 09:21 | XMS_ITS | Encounter Summary ---
Author Organization [employer] Address 75 [facility] 7t [place] [address] Care Team Providers Care Cold Patcher Name Role Phone Rolanda Thakur MD Primary Care Provider +1 [phone] Encounter Details Date Type Department Care Team ([facility] st Contact Info) Description 12/18/2024 Orders Only [facility] CHC MED & PEDS [address] [place] [address] ProviderChema MD Social History Tobacco Use Types Packs/Day Years [...] Name Priority Date/Time Associated Diagnosis Comments HM MAMMOGRAPHY Routine 12/17/2024 8:40 AM EDT documented in this encounter Results * Hm Mammography (12/17/2024 8:40 AM EDT) Anatomical Region Laterality Modality Other Historical Provider HEALTH MAINTENANCE Final Result documented in this encounter Visit Diagnoses Not on filedocumented in this encounter Additional Health Concerns Assessment Noted Time PHQ-9 Depression Total Score: 2 05/13/20 24 9:24 AM EDT documented as of this encounter Care Teams Cold Patcher Relationship Specialty Start Date End Date Rolanda Thakur MD [address] [place] [address] PCP - General Internal Medicine 09/19/22 documented as of this encounter
--- OUTSIDE RECORDS SUMMARY | 2025-04-18 09:21 | XMS_ITS | Encounter Summary ---
Author Organization [employer] Address [address] [address] Care Team Providers Care Salvage Inspector Name Role Phone Rolanda Thakur MD Primary Care Provider +1- [phone] Reason for Visit * Reason Onset Date Comments Med Refill 12/26/2024 Encounter Details Date Type Department Care Team (Late st Contact Info) Description 12/26/2024 Refill [facility] MEDICINE 230 [place] [address] Rolanda Thakur MD 505 [place], [place] [phone] Neck pain on left side Social History [...] documented as of this encounter Care Teams Salvage Inspector Relationship Specialty Start Date End Date Rolanda Thakur MD [address] [place] [address] PCP - General Internal Medicine 09/19/22 documented as of this encounter
--- OUTSIDE RECORDS SUMMARY | 2025-04-18 09:21 | XMS_ITS | Encounter Summary ---
Author Organization [employer] Address [address] [place] [address] Care Team Providers Care Vocational Rehab Consultant Name Role Phone Rolanda Thakur MD Primary Care Provider +1- [phone] Reason for Visit * Reason Onset Date Comments Referral 11/16/2023 Encounter Details Date Type Department Care Team ([facility] Contact Info) Description 11/16/2023 Telephone [facility] CHC MED & PEDS 505 [place], [place] [phone] Rolanda Thakur MD 505 [place] [address] Referral Social History Tobacco Use Types Packs/Day [...] MyChart encounter. Any questions, contact pt at [phone] documented in this encounter Plan of Treatment Not on file documented as of this encounter Visit Diagnoses Not on filedocumented in this encounter Care Teams Vocational Rehab Consultant Relationship Specialty Start Date End Date Rolanda Thakur MD [address] [place] [address] PCP - General Internal Medicine 09/19/22 documented as of this encounter
--- OUTSIDE RECORDS SUMMARY | 2025-04-18 09:21 | XMS_ITS | Encounter Summary ---
Author Organization [employer] Address [address] [place] [address] Care Team Providers Care Foot Setter Name Role Phone Rolanda Thakur MD Primary Care Provider +1 [phone] Reason for Referral * Consultation (Routine) - Closed Specialty Diagnoses / Procedures Referred By Contac t Referred To Contact Endocrinology Diagnoses Type 2 diabetes mellitus without complication, without long-term current use of insulin (CMS/HCC) Rolanda Thakur MD [address] [place] [address] Phone: tel: fax: [facility] [address] [place] [phone] Phone: tel: fax: Referral ID Status Reason Start Date Expiration Date V isits Requested Visits Authorized [id number] Closed Specialty Services Required 08/26/2024 08/26/2025 1 1 Encounter Details Date Type Department Care Team (Late st Contact Info) Description 08/26/2024 Orders Only [facility] CH[facility] MED & PEDS [address] [place] [phone] Rolanda Thakur MD [address] [place] [address] Type 2 diabetes mellitus without complication, without [...] documented as of this encounter Care Teams Foot Setter Relationship Specialty Start Date End Date Rolanda Thakur MD [address] [place] [address] PCP - General Internal Medicine 09/19/22 documented as of this encounter
--- OUTSIDE RECORDS SUMMARY | 2025-04-18 09:21 | XMS_ITS | Encounter Summary ---
Author Organization [employer] Address [address] [address] Care Team Providers Care Sculpture Conservator Name Role Phone Rolanda Thakur MD Primary Care Provider +1- [phone] Reason for Visit * Reason Comments Med Refill Encounter Details Date Type Department Care Team ([facility] st Contact Info) Description 08/27/2024 Refill [facility] MEDICINE [address] [place] [address] Rolanda Thakur MD 505 [place], [place] [phone] Type 2 diabetes mellitus without complication, without long-term current use of insulin ([facility]) Social [...] long-term current use of insulin ([facility]) documented in this encounter Additional Health Concerns Assessment Noted Time PHQ-9 Depression Total Score: 2 05/13/20 24 9:24 AM EDT documented as of this encounter Care Teams Sculpture Conservator Relationship Specialty Start Date End Date Rolanda Thakur MD [address] [place] [address] PCP - General Internal Medicine 09/19/22 documented as of this encounter
--- OUTSIDE RECORDS SUMMARY | 2025-04-18 09:21 | XMS_ITS | Encounter Summary ---
Author Organization [employer] Address [address] [address] Care Team Providers Care Gse Mechanic Name Role Phone Rolanda Thakur MD Primary Care Provider +1- [phone] Reason for Visit * Reason Onset Date Comments Med Refill 12/26/2024 Encounter Details Date Type Department Care Team (Late st Contact Info) Description 12/26/2024 Refill [facility] MEDICINE [address] [place] [address] Rolanda Thakur MD [address] [place] [address] Social History Tobacco Use Types Packs/Day Years [...] documented as of this encounter Care Teams Gse Mechanic Relationship Specialty Start Date End Date Rolanda Thakur MD [address] [place] [address] PCP - General Internal Medicine 09/19/22 documented as of this encounter
--- OUTSIDE RECORDS SUMMARY | 2025-04-18 09:21 | XMS_ITS | Encounter Summary ---
Author Organization [employer] Address [address] [place] [address] Care Team Providers Care Parts Room Associate Name Role Phone Rolanda Thakur MD Primary Care Provider +1- [phone] Encounter Details Date Type Department Care Team ([facility] st Contact Info) Description 01/22/2024 Orders Only [facility] CH[facility] MED & PEDS 505 [place], [place] [phone] Rolanda Thakur MD 505 [place] [address] Benign essential hypertension Social History Tobacco Use [...] AM EDT Narrative 02/19/2024 12:38 PM EDT [address] [address] XRay Report Signed Patient: Angely Pineda MR#: [id number] : 1950 Acct:[id number] Age/Sex: 73 / F ADM Date: 02/19/24 Loc: [facility] Attending Dr: Migdalia PALMER Ordering Physician: Migdalia Loza Date of Service: 02/19/24 Procedure(s): XR toe RT min 2V Accession Number(s): [id number] cc: Migdalia Loza EXAMINATION: BILATERAL TOES CLINICAL [...] in OV> 02/19/24 1234 DD/ 1122 TD/TT: Car Rental Manager: SS Procedure Note Donotuseinterpreter, Image - 02/19/[address] [address] XRay Report Signed Patient: Angely PinedaMR#: [id number] : 1950cct:[id number] Age/Sex: 73 / FADM Date: 02/19/24 Loc: [facility] Attending Dr: Migdalia Loza LAMINATING MACHINE OPERATOR Ordering Physician: Migdalia Loza Date of Service: 02/19/24 Procedure(s): XR toe RT min 2V Accession Number(s): [id number] cc: Migdalia Loza LAMINATING MACHINE OPERATOR EXAMINATION: BILATERAL TOES CLINICAL INFORMATION: A heavy [...] in OV> 02/19/24 1234 DD/ 1122 TD/TT: Car Rental Manager: SS Migdalia Loza LAMINATING MACHINE OPERATOR IMG XR PROCEDURES Edited Resul t - Final documented in this encounter Visit Diagnoses Diagnosis Benign essential hypertension Essential hypertension, benign documented in this encounter Care Teams Parts Room Associate Relationship Specialty Start Date End Date Rolanda Thakur MD [address] [place] [address] PCP - General Internal Medicine 09/19/22 documented as of this encounter
--- OUTSIDE RECORDS SUMMARY | 2025-04-18 09:21 | XMS_ITS | Encounter Summary ---
Author Organization [employer] Address [address] [place] [address] Care Team Providers Care Virtual Recruiter Name Role Phone Rolanda Thakur MD Primary Care Provider +1- [phone] Encounter Details Date Type Department Care Team ([facility] st Contact Info) Description 10/27/2023 Telephone [facility] MEDICINE [address] [place] [phone] Rolanda Thakur MD 505 [place] [address] Social History Tobacco Use Types Packs/Day Years [...] on filedocumented in this encounter Care Teams Virtual Recruiter Relationship Specialty Start Date End Date Rolanda Thakur MD [address] [place] [address] PCP - General Internal Medicine 09/19/22 documented as of this encounter
--- OUTSIDE RECORDS SUMMARY | 2025-04-18 09:21 | XMS_ITS | Encounter Summary ---
Author Organization [employer] Address 75 [facility] 7 [place] [address] Care Team Providers Care Optical Assistant Name Role Phone Rolanda Thakur MD Primary Care Provider +1- [phone] Encounter Details Date Type Department Care Team ([facility] Contact Info) Description 10/08/2024 Telephone [facility] MED & PEDS [address] [place] [address] Rolanda Thakur MD 505 [place] [address] Social History Tobacco Use Types Packs/Day Years [...] documented as of this encounter Care Teams Optical Assistant Relationship Specialty Start Date End Date Rolanda Thakur MD [address] [place] [address] PCP - General Internal Medicine 09/19/22 documented as of this encounter
--- OUTSIDE RECORDS SUMMARY | 2025-04-18 09:21 | XMS_ITS | Encounter Summary ---
Author Organization [employer] Address [address] [place] [address] Care Team Providers Care House Worker General Name Role Phone Rolanda Thakur MD Primary Care Provider +1- [phone] Encounter Details Date Type Department Care Team (Latest Contact Info) Description 08/17/2021 Abstract [facility] Dental, Provider, DDS Social History Tobacco [...] on filedocumented in this encounter Care Teams House Worker General Relationship Specialty Start Date End Date Rolanda Thakur MD 505 [facility] [place] [address] PCP - General Internal Medicine 09/19/22 documented as of this encounter
--- OUTSIDE RECORDS SUMMARY | 2025-04-18 09:21 | XMS_ITS | Encounter Summary ---
Author Organization [employer] Address [address] [place] [address] Care Team Providers Care Ore Sampler Name Role Phone Rolanda Thakur MD Primary Care Provider [phone]- [phone] Reason for Visit * Reason Onset Date Comments Med Refill 12/26/2024 Encounter Details Date Type Department Care Team ([facility] st Contact Info) Description 12/26/2024 Refill [facility] CHC MED & PEDS [address] [place] [address] Rolanda Thakur MD [address] [place] [address] Anxiety; Benign essential hypertension Social History Tobacco [...] documented as of this encounter Care Teams Ore Sampler Relationship Specialty Start Date End Date Rolanda Thakur MD [address] [place] [address] PCP - General Internal Medicine 09/19/22 documented as of this encounter
--- OUTSIDE RECORDS SUMMARY | 2025-04-18 09:21 | XMS_ITS | Encounter Summary ---
Author Organization [employer] Address [address] [place] [address] Care Team Providers Care Counter Checker Name Role Phone Rolanda Thakur MD Primary Care Provider [phone]- [phone] Encounter Details Date Type Department Care Team ([facility] st Contact Info) Description 08/18/2023 Orders Only [facility] CHC MED & PEDS [address] [place], [place] [phone] Rolanda Thakur MD [address] [place] [address] Social History Tobacco Use Types Packs/Day Years [...] on filedocumented in this encounter Care Teams Counter Checker Relationship Specialty Start Date End Date Rolanda Thakur MD [address] [place] [address] PCP - General Internal Medicine 09/19/22 documented as of this encounter
--- OUTSIDE RECORDS SUMMARY | 2025-04-18 09:21 | XMS_ITS | Encounter Summary ---
Author Organization [employer] Address [address] [address] Care Team Providers Care Deli Clerk Name Role Phone Rolanda Thakur MD Primary Care Provider [phone]- [phone] Reason for Visit * Reason Onset Date Comments Nurse Triage 12/12/2023 Encounter Details Date Type Department Care Team ([facility] st Contact Info) Description 12/12/2023 Telephone [facility] MEDICINE [address] [place] [address] Rolanda Thakur MD [address] [place], [place] [phone] Nurse Triage Social History Tobacco Use Types [...] from pt requesting to speak to PCP track repair workervault manager in regards to scheduled sick visit tmr, states was advised to contact PCP before scheduled appt to see how pt is doing, pt stated they still has a severe cough. Wrecking Supervisor did advised appt is still expected. Pt is scheduled tmr 12/15/23 for ( chest congestion, cough , yellow nasal drainage. ) Please contact at [phone] * Telephone Encounter - Viktoria Schultz RN [...] point. Pt is advised to come to [facility] today to be seen since open till 8pm. PT is not sure if will be able to do that. Wrecking Supervisor contacted Haylie Barrientos [facility] and asked if would be possible to schedule Pt at [facility] 12/15/23 340pm apt which Pt would be [...] on filedocumented in this encounter Care Teams Deli Clerk Relationship Specialty Start Date End Date Rolanda Thakur MD [address] [place] [address] PCP - General Internal Medicine 09/19/22 documented as of this encounter
--- OUTSIDE RECORDS SUMMARY | 2025-04-18 09:21 | XMS_ITS | Encounter Summary ---
Author Organization [employer] Address [address] [address] Care Team Providers Care Cash Posting Specialist Name Role Phone Rolanda Thakur MD Primary Care Provider [phone]- [phone] Reason for Visit * Reason Onset Date Comments FYI 10/11/2024 Encounter Details Date Type Department Care Team ([facility] st Contact Info) Description 10/11/[address] [facility] MEDICINE [address] [place] [address] Rolanda Thakur MD [address] [place], [place] [phone] FYI Social History Tobacco Use Types Packs/Day [...] as of this encounter Care Teams Cash Posting Specialist Relationship Specialty Start Date End Date Rolanda Thakur MD [address] [place] [address] PCP - General Internal Medicine 09/19/22 documented as of this encounter
--- OUTSIDE RECORDS SUMMARY | 2025-04-18 09:21 | XMS_ITS | Encounter Summary ---
Author Organization [employer] Address [address] [place] [address] Care Team Providers Care Computer Support Analyst Name Role Phone Rolanda Thakur MD Primary Care Provider +1- [phone] Reason for Visit * Reason Onset Date Comments Med Refill 10/27/2023 Encounter Details Date Type Department Care Team (Late st Contact Info) Description 10/27/2023 Telephone [facility] MEDICINE [address] [place] [address] Rolanda Thakur MD [address] [place], [place] [phone] Med Refill Social History Tobacco Use Types [...] on medication 125 Please contact pt @ [phone] No meds. * Telephone Encounter - Haylie Cantor RN - 10/27/2023 3:44 PM EST Patient reporting alternating days of synthroid 125 mcg and synthroid 137 mcg. Requesting new script for synthroid 125 mcg. Please review and advise, thanks. Tc from pt requesting levothyroxine (Synthroid) 125 MCG tablet, life insurance underwriter do not see med in chart but pt stated has been taking this medication for 10 years, pt switch 137 and 125 every day, life insurance underwriter attempted to contact pharmacy for clarifications but [facility] [address] open at 9:00AM. * Telephone Encounter - Jenny Neff - 10/27/2023 8:31 AM EST Tc from pt requesting levothyroxine (Synthroid) 125 MCG tablet, life insurance underwriter do not see med in chart but pt stated has been taking this medication for 10 years, pt switch 137 and 125 every day, life insurance underwriter attempted to contact pharmacy for clarifications but [facility] [address] open at 9:00AM. documented in this encounter Plan of Treatment Not on file documented as of this encounter Visit Diagnoses Not on filedocumented in this encounter Care Teams Computer Support Analyst Relationship Specialty Start Date End Date Rolanda Thakur MD [address] [place] [address] PCP - General Internal Medicine 09/19/22 documented as of this encounter
--- OUTSIDE RECORDS SUMMARY | 2025-04-18 09:21 | XMS_ITS | Encounter Summary ---
Author Organization [employer] Address [address] [address] Care Team Providers Care Baler Operator Name Role Phone Rolanda Thakur MD Primary Care Provider +1- [phone] Reason for Visit * Reason Onset Date Comments Nurse Triage 08/09/2024 Encounter Details Date Type Department Care Team ([facility] st Contact Info) Description 08/09/2024 Telephone [facility] MEDICINE [address] [place] [address] Rolanda Thakur MD [address] [place], [place] [phone] Nurse Triage Social History Tobacco Use Types [...] precautions and reasons to call back. Reviewed [facility] operating hours and that wait times vary. Protocol Used: Neck Pain or Stiffness (Adult) Protocol-Based Disposition: See in Office or Video Visit Today or Tomorrow Future Appointments Date Time Provider Department Center 08/10/2024 9:40 AM [facility] 2 WALK-IN [facility] Insurance verified as active per Real Time Eligibility in [facility]. Positive Triage Question: * Tenderness [...] documented as of this encounter Care Teams Baler Operator Relationship Specialty Start Date End Date Rolanda Thakur MD [address] [place] [address] PCP - General Internal Medicine 09/19/22 documented as of this encounter
--- OUTSIDE RECORDS SUMMARY | 2025-04-18 09:21 | XMS_ITS | Encounter Summary ---
Author Organization [employer] Address [address] [address] Care Team Providers Care Weed Cutter Name Role Phone Rolanda Thakur MD Primary Care Provider +1- [phone] Reason for Visit * Reason Onset Date Comments Durable Medical Equipment 04/29/2024 Encounter Details Date Type Department Care Team (Late st Contact Info) Description 04/29/2024 Telephone [facility] MEDICINE [address] [place] [address] Rolanda Thakur MD [address] [place], [place] [phone] Durable Medical Equipment Social History Tobacco Use [...] - 04/29/2024 3:34 PM EDT Tc from [facility] pharmacy stating pt is requesting blood pressure monitor but they don't have a script. If any questions you can contact [facility] at [phone]. documented in this encounter Plan of Treatment Not on file documented as of this encounter Visit Diagnoses Not on filedocumented in this encounter Care Teams Weed Cutter Relationship Specialty Start Date End Date Rolanda Thakur MD [address] [place] [address] PCP - General Internal Medicine 09/19/22 documented as of this encounter
--- OUTSIDE RECORDS SUMMARY | 2025-04-18 09:21 | XMS_ITS | Encounter Summary ---
Author Organization [employer] Address [address] [place] [address] Care Team Providers Care Automobile Seat Cover Installer Name Role Phone Rolanda Thakur MD Primary Care Provider [phone]- [phone] Encounter Details Date Type Department Care Team ([facility] st Contact Info) Description 03/28/2024 Orders Only [facility] CHC MED & PEDS [address] [place], [place] [phone] Karen Alcantar MD [address] [place] [address] Social History Tobacco Use Types Packs/Day Years [...] on filedocumented in this encounter Care Teams Automobile Seat Cover Installer Relationship Specialty Start Date End Date Rolanda Thakur MD [address] [place] [address] PCP - General Internal Medicine 09/19/22 documented as of this encounter
--- OUTSIDE RECORDS SUMMARY | 2025-04-18 09:21 | XMS_ITS | Clinical Summary ---
Author Organization [employer] Address [address] [place] [address] [place] [address] Care Team Providers Care Supervisor Nurse Name Role Phone Rolanda Thakur MD Primary Care Provider [phone] Allergies Active Allergy Reactions Criticality Noted Date Comments Acetaminophen Unknown 04/21/2016 Codeine 04/21/2016 Other reaction(s): vomiting, headache Food 12/17/2024 mangos Gabapentin 04/21/2016 Other reaction(s): n/v headache Hydromorphone [...] check blood sugar four times daily Active glucose 4 g chewable tabletIndications :Type 2 diabetes mellitus without complication, without long-term current use of insulin ([facility]) Chew 4 tablets (16 g) if needed for low blood sugar. 50 tablet 12 03/06/20 24 Active glucose blood (OneTouch Ultra) test stripIndications: Type 2 diabetes mellitus without complication, without long-term current use of insulin ([facility]) USE DIRECTED TO TEST BLOOD GLUCOSE TWICE DAILY 100 strip 11 07/05/20 24 Active ascorbic acid (Vitamin C) 1000 [...] MORNING 90 tablet 1 08/19/20 24 Active busPIRone (Buspar) 10 MG tablet Take 1 tablet (10 mg) by mouth 2 times daily. 60 tablet 11 08/22/19 25 2025 Active aspirin (Aspirin Low Dose) 81 MG EC tablet Take 1 tablet (81 mg) by mouth Once per day. 90 tablet 3 08/22/19 25 Active Multiple Vitamin (Daily-Saadia Multivitamin) tablet TAKE 1 TABLET BY MOUTH EVERY DAY 30 tablet 11 08/23/19 25 Active capsaicin (Zostrix) 0.025 % creamIndications: Spondylosis of cervical region without myelopathy or radiculopathy Apply topically 2 times daily. 56.6 g 3 09/10/19 25 2025 Active cyanocobalamin (Vitamin B-12) 500 MCG tablet TAKE 1 TABLET(500 MCG) BY MOUTH DAILY IN THE MORNING 90 tablet 3 09/16/19 25 Active Continuous Glucose Sensor (RingRangcom G7 Sensor) misc Inject 2 each under the skin every 14 (fourteen) days. USE DIRECTED TO TEST BLOOD SUGAR 9 each 3 12/07/19 25 Active Blood Pressure kit USE TO CHECK BLOOD PRESSURE EVERY DAY 1 kit 12/27/19 25 Active Blood Glucose Monitoring Suppl (ONE TOUCH ULTRA 2) w/Device kitIndications:Ty pe 2 diabetes mellitus without complication, without long-term current use of insulin ([facility]) Use to test blood sugar 2 times daily 1 kit 12/27/19 25 Active cloNIDine (Catapres) 0.1 MG tabletIndications :Anxiety,Benign essential hypertension TAKE 1 TABLET(0.1 MG) BY MOUTH THREE TIMES DAILY 90 tablet 2 12/27/19 25 Active cetirizine (ZyrTEC) 10 MG tablet TAKE 1 TABLET BY MOUTH DAILY 30 tablet 11 01/25/20 25 Active Continuous Glucose Swimming Pool Installer And Servicer (Dexcom G7 Swimming Pool Installer And Servicer) deviceIndications :Type 2 diabetes mellitus without complication, without long-term current use of insulin ([facility]) USE DIRECTED 1 each 02/19/20 25 Active cyclobenzaprine (Flexeril) 10 MG tabletIndications :Neck pain on left side TAKE 1 TABLET BY MOUTH EVERY DAY 30 tablet 02/19/20 25 Active clonazePAM (KlonoPIN) 0.5 MG tabletIndications :Panic attack,Anxiety TAKE 1 TABLET BY MOUTH EVERY DAY NEEDED FOR PANIC ATTACKS 10 tablet 02/19/20 25 Active metFORMIN (Glucophage) 500 MG tabletIndications :Type 2 diabetes mellitus without complication, without long-term current use of insulin ([facility]) TAKE 1 TABLET BY MOUTH TWICE DAILY WITH MEALS 180 tablet 1 02/19/20 25 Active glipiZIDE (Glucotrol) 10 MG tablet Take 1 tablet (10 mg) by mouth before breakfast and before evening meal. 60 tablet 11 03/06/20 25 2025 Active glipiZIDE (Glucotrol) 10 MG tabletIndications :Type 2 diabetes mellitus without complication, without long-term current use of insulin ([facility]) Take 1 tablet (10 mg) by mouth before breakfast and before evening meal. 60 tablet 11 03/20/20 25 2025 Active clonazePAM (KlonoPIN) 0.5 MG tabletIndications :Panic attack,Anxiety TAKE 1 TABLET BY MOUTH EVERY DAY NEEDED FOR PANIC ATTACKS 10 tablet 03/31/20 25 Active levothyroxine (Synthroid) 125 MCG tabletIndications :Acquired hypothyroidism Take 1 tablet (125 mcg) by mouth before breakfast. 90 tablet 1 04/18/20 25 2025 Active FREESTYLE LITE test stripIndications: Type 2 diabetes mellitus without complication, without long-term current use of insulin ([facility]) Use to test blood sugar 2-3 times daily 100 each 12 04/18/20 25 2025 Active Lancets miscIndications:T ype 2 diabetes mellitus without complication, without long-term current use of insulin ([facility]) Use to test blood sugar 2-3 times daily 100 each 04/18/20 25 Active Alcohol Swabs 70 % padsIndications:T ype 2 diabetes mellitus without complication, without long-term current use of insulin ([facility]) Use to test blood sugar 2-3 times daily 100 each 04/18/20 25 Active Blood Glucose Monitoring Suppl (FreeStyle [place] Lite) w/Device kitIndications:Ty pe 2 diabetes mellitus without complication, without long-term current use of insulin ([facility]) Use to test blood sugar 2-3 times daily 1 kit 04/18/20 Active nitrofurantoin, macrocrystal-mono hydrate, (Macrobid) 100 MG capsuleIndication s:UTI symptoms Take 1 capsule (100 mg) by mouth 2 times daily for 5 days. 10 capsule 04/18/20 25 2024 Active Synthroid 125 MCG tablet TAKE 1 TABLET BY MOUTH ON MONDAY, MONDAY, AND MONDAY AND ALTERNATE WITH 137 MCG ON MONDAY, MONDAY, MONDAY, AND MONDAY 36 tablet 11 08/22/192024 Discontinued(R eorder (will not trigger notification to Pharmacy)) Synthroid 125 MCG tabletIndications :Acquired hypothyroidism TAKE 1 TABLET BY MOUTH ON MONDAY, MONDAY, AND MONDAY AND ALTERNATE WITH 137 MCG ON MONDAY, MONDAY, MONDAY, AND MONDAY 36 tablet 3 02/11/20 25 2024 Discontinued(D ose adjustment) Synthroid 137 MCG tabletIndications :Acquired hypothyroidism TAKE 1 TABLET BY MOUTH EVERY DAY BEFORE BREAKFAST 90 tablet 3 02/11/20 25 2024 Discontinued(T herapy completed) clonazePAM (KlonoPIN) 0.5 MG tabletIndications :Panic attack,Anxiety TAKE 1 TABLET BY MOUTH EVERY DAY NEEDED FOR PANIC ATTACKS 10 tablet 02/19/20 25 2024 Discontinued glipiZIDE XL (Glucotrol XL) 5 MG 24 hr tabletIndications :Type 2 diabetes mellitus without complication, without long-term current use of insulin ([facility]) Take 1 tablet (5 mg) by mouth in the evening. Do not crush, chew, or split. 30 tablet 1 03/04/20 25 2024 Discontinued(D ose adjustment) Synthroid 125 MCG tabletIndications :Acquired hypothyroidism TAKE 1 TABLET BY MOUTH ON MONDAY, MONDAY, AND MONDAY AND ALTERNATE WITH 137 MCG ON MONDAY, MONDAY, MONDAY, AND MONDAY 36 tablet 11 04/17/20 25 2024 Discontinued(D ose adjustment) Active Problems [...] Plan: Augmentin BID x 10 days Nasal [place] Follow up if worsening or no improvement [...] [facility], Patient to engage in OP therapy , and Patient to reach out to [facility] as needed Swelling of lip, tongue, and throat 05/10/2024 Assessment & Plan (05/22/2024 1:00 PM EDT): Patient reports episodes of swelling of exposure to different antigens, at this moment given recurrence and symptoms affecting patients daily, will strongly benefit of assessment from stemming machine operator to help elucidate etiology of symptoms. [...] organization. Date Type Department Care Team Description 04/18/2025 Telephone [facility] [address] [place] [address] Migdalia Loza FNP Appointment Request 04/18/2025 Travel 04/18/2025 Orders Only [facility] [address] [place] [address] Migdalia Loza FNP Acquired hypothyroidism (Primary Dx); UTI symptoms; Type 2 diabetes mellitus without complication, without long-term current use of insulin ([facility]) 04/17/2025 Telephone [facility] [address] [place] [address] Rolanda Thakur MD Nurse Triage 04/17/2025 Telephone [facility] [address] [place] [address] Rolanda Thakur MD Med Refill 04/16/2025 Refill [facility] [address] [place] [address] Rolanda Thakur MD Acquired hypothyroidism 04/15/2025 Results Follow-Up [facility] [address] [place] [address] Kimberly Bronson, MINOO Basic Metabolic Panel 04/14/2025 Orders Only [facility] [address] [place], [place] [phone] Rolanda Thakur MD Type 2 diabetes mellitus without complication, without long-term current use of insulin ([facility]) (Primary Dx) 04/12/2025 Orders Only GENERIC EXTERNAL DATA DEPARTMENT Provider, Generic External Data 04/11/2025 Refill [facility] [address] [place] [address] Rolanda Thakur MD Type 2 diabetes mellitus without complication, without long-term current use of insulin (CMS/HCC) 03/31/2025 Refill [facility] [address] [place] [address] Rolanda Thakur MD Panic attack; Anxiety 03/31/2025 Refill [facility] [address] [place] [address] Rolanda Gutierrez MD Panic attack; Anxiety 03/24/2025 Results Follow-Up [facility] [address] [place] [address] Rolanda Thakur MD T-SPOT .TB 03/22/2025 Refill [facility] [address] [place], [place] [phone] Gutierrez MD 03/20/2025 Orders Only [facility] [address] [place], [place] [phone] Gutierrez MD 03/20/2025 Refill [facility] [address] [place], [place] [phone] Gutierrez MD 03/20/2025 Results Follow-Up [facility] [address] [place] [address] Rolanda Thakur MD TSH W/Reflex to FT4, CBC auto differential 03/19/2025 Orders Only [facility] [address] [place] [address] Rolanda Thakur MD 03/19/2025 Telephone [facility] [address] [place] [address] Rolanda Thakur MD Appointment Request; Lab Orders 03/19/2025 Telephone [facility] [address] [place] [address] Rolanda Thakur MD PE APPT 03/11/2025 Telephone [facility] [address] [place] [address] Rolanda Thakur MD Call Back Request 03/06/2025 Orders Only [facility] [address] [place] [address] Rolanda Thakur MD Type 2 diabetes mellitus without complication, without long-term current use of insulin ([facility]) (Primary Dx) 03/02/2025 Refill [facility] [address] [place] [address] Rolanda Thakur MD Diabetic polyneuropathy associated with type 2 diabetes mellitus (CMS/HCC) 02/28/2025 Telephone [facility] [address] [place] [phone] Rolanda Thakur MD Referral 02/26/2025 Telephone [facility] [address] [place] [phone] Rolanda Thakur MD Medication Question 02/18/2025 Refill [facility] [address] [place] [address] Rolanda Thakur MD Type 2 diabetes mellitus without complication, without long-term current use of insulin (CMS/HCC) 02/18/2025 Telephone [facility] [address] [place] [address] Rolanda Thakur MD Med Refill 02/17/2025 Refill [facility] [address] [place] [address] Rolanda Thakur MD Type 2 diabetes mellitus without complication, without long-term current use of insulin ([facility]); Panic attack; Anxiety 02/17/2025 Refill [facility] [address] [place] [address] Rolanda Thakur MD Type 2 diabetes mellitus without complication, without long-term current use of insulin ([facility]/H[facility]); Neck pain on left side; Panic attack; Anxiety 02/13/2025 Orders Only [facility] External Provider, [facility] 02/05/2025 11:00 AM EDT Office Visit [facility] [address] [place] [address] [place], [place], [facility] Type 2 diabetes mellitus with hyperglycemia, without long-term current use of insulin ([facility]) (Primary Dx); Elevated glucose; Benign essential hypertension; Acquired hypothyroidism; Generalized anxiety disorder with panic attacks 02/05/2025 Refill [facility] [address] [place] [address] Rolanda Thakur MD Acquired hypothyroidism 02/05/2025 Results Follow-Up [facility] [address] [place] [address] Kimberly Bronson RN Basic Metabolic Panel 02/05/2025 Travel 02/05/2025 Orders Only [facility] [address] [place] [address] Rolanda Thakur MD Acquired hypothyroidism 01/25/2025 Orders Only GENERIC EXTERNAL DATA DEPARTMENT Provider, Generic External Data 01/24/2025 Refill [facility] [address] [place] [address] Rolanda Thakur MD Neck pain on left side 01/24/2025 Refill [facility] [address] [place] [address] Rolanda Thakur MD Panic attack; Anxiety from Last 3 Months Immunizations Immunization Administration Dates Next Due Influenza High-dose Quadriva [...] Sign Reading Time Taken Comments Blood Pressure 160/70 02/05/2025 12:05 PM EDT Pulse 60 02/05/2025 11:09 AM EDT Temperature 36.7 C (98 F) 02/05/2025 11:09 AM EDT Respiratory Rate 22 11/14/2024 4:02 PM EDT Oxygen Saturation 100% 02/05/2025 11:09 AM EDT Inhaled Oxygen Concentration - - Weight 68 kg (150 lb) 10/11/2024 3:39 PM EST Height 162.6 cm (5' 4 ) 10/11/2024 3:39 PM EST Body Mass Index 25.75 10/11/2024 3:39 PM EST Plan of Treatment Health Maintenance Due Date Last Done Comments CT Colonography 1950 Colonoscopy 1950 FIT 1950 Sigmoidoscopy 1950 FOBT 01/03/2023 01/03/2022 Diabetes: Foot Exam 02/18/2025 02/19/2024, 02/19/2024, 02/19/2024, Additional history exists Influenza Vaccine (#1) 2025 4, 06/26/2023, 06/27/2021, Additional history exists Diabetes: Hemoglobin A1C 05/08/202502/05/ 025, 07/06/2024, 01/19/2024, Additional history exists Depression Screening 05/13/2025 05/13/2024, 05/13/20 COVID-19 Vaccine ( season) 2025 07/10/2021, 11/04/2020 Postponed from 04/21/2024 (Patient Refused) Diabetes: Urine Protein Screening 07/17/2025 07/17/2024 Alcohol/Substance Use Screening 09/10/2025 09/10/2024 SDOH Screening 09/10/2025 09/10/2024 Eye Exam 09/26/2025 09/26/2023 Tobacco Screening 02/09/2026 02/09/2025 Lipid Panel 04/12/2026 04/12/2025, 06/22, 05/08/2023, Additional history exists Mammogram 12/17/2026 12/17/2024, 11/20, 12/17/2024 Colorectal Cancer Screening 08/09/2027 FIT DNA/Cologuard 08/09/2027 08/09/2024 DTaP/Tdap/Td Vaccines (5 - Td or Tdap) 10/07/2031 10/07/2021, 01/19/2019, 04/21/2016, Additional history exists Zoster Vaccines Completed 07/02/2018, 01/2018, 04/09/2012 Pneumococcal Vaccine: 50+ Years Completed 04/26/2019, 05/09/2017, 07/26/2016, Additional history exists RSV Patients and Patients [...] Diagnosis Comments TSH W/REFLEX TO FT4 Routine 04/12/2025 1 0:26 AM EDT LIPID PANEL, STANDARD Routine 04/12/2025 10:26 AM EDT BASIC METABOLIC PANEL Routine 04/12/2025 10:26 AM EDT Type 2 diabetes mellitus with hyperglycemia, without long-term current use of insulin (CMS/HCC) T-SPOT(R).TB Routine 03/20/2025 9:09 AM EDT SLIDE REVIEW Routine 03/19/2025 3:13 PM EDT T-SPOT(R).TB Routine 03/19/2025 3:13 PM EDT Screening due CBC WITH AUTO DIFFERENTIAL Routine 03/19/2025 3:13 PM EDT Type 2 diabetes mellitus without complication, without long-term current use of insulin (CMS/HCC) TSH W/REFLEX TO FT4 Routine 03/19/2025 3 :13 PM EDT Acquired hypothyroidism XR KNEE 1-2 VIEWS LEFT Routine 02/13/2025 10:49 AM EDT TSH Routine 02/05/2025 12:22 PM EDT Acquired hypothyroidism HEMOGLOBIN A1C Routine 02/05/2025 12:22 PM EDT Type 2 diabetes mellitus without complication, without long-term current use of insulin (CMS/HCC) BASIC METABOLIC PANEL Routine 02/05/2025 12:22 PM EDT Hyponatremia POCT GLUCOSE Routine 02/05/2025 11:31 AM EDT Elevated glucose BASIC METABOLIC PANEL Routine 01/25/2025 1:40 PM EDT MAMMOGRAPHY Routine 12/17/2024 8:40 AM EDT LAB COLOGUARD COLON CANCER SCREEN Routine 08/09/2024 8:30 AM [...] current use of insulin (CMS/HCC) Decreased GFR IFOBT Routine 01/03/2022 from Last 3 Months or Most Recently Relevant to Health Maintenance Results * TSH with Reflex to Free T4 (04/12/2025 10:26 AM EDT) Only the most recent of2 resultswithin the time period is included. TSH reflex Free T4 0.95 0.32 - 4.0 uIU/mL [facility] 04/12/2025 10:2 6 AM EDT 04/12/2025 11:02 AM EDT us Generic External Data Provider LAB BLOOD ORDERAB LES Final Result [facility] [address] [place] [address] [phone] * (ABNORMAL) Lipid Panel, Standard (04/12/2025 10:26 AM EDT) Triglycerides 70 <150 mg/dL [facility] Comment:Desirable Triglyceri de: less than 150 mg/dLBorderline High Triglyceride 150-199 mg/dLHigh Triglyceride: 200-499 mg/dLVery High Triglyceride: greater than or equal to 5OO mg/dL Cholesterol 191 <200 mg/dL [facility] Comment:Desirable Cholestero l: less than 200 mg/dLBorderline High Cholesterol: 200-239 mg/dLHigh Cholesterol: greater than 239 mg/dL LDL Cholesterol Calculated 122(H) <100 mg/dL [facility] Comment:Desirable LDL: less than 100 mg/dLNear Optimal/Above Optimal LDL: 110- 129 mg/dLBorderline High LDL: 130-159 mg/dLHigh LDL: 160-189 mg/dLVery High LDL: greater than or equal to 190 mg/dL HDL Cholesterol 55 >40 mg/dL [facility] Comment:Desirable HDL: great er than 40 mg/dL Note: This HDL assay may give artificially low results in patients with liver disease. 04/12/2025 10:2 6 AM EDT 04/12/2025 11:02 AM EDT us Generic External Data Provider LAB BLOOD ORDERAB LES Final Result [facility] [address] [place] [phone] * (ABNORMAL) Basic Metabolic Panel (04/12/2025 10:26 AM EDT) Only the most recent of3 resultswithin the time period is included. Sodium 136 135 - 145 mmol/L [facility] Potassium 5.0 3.3 - 5.1 mmol/L [facility] Chloride 106 96 - 108 mmol/L [facility] Carbon Dioxide 23 22 - 29 mmol/L [facility] Anion Gap 12 12 - 20 [facility] Urea Nitrogen (BUN) 22(H) 9 - 16 mg/dL [facility] Creatinine, Serum 0.95 0.5 - 1.4 mg/dL [facility] Estimated Glomerular Filt Rate 58 [facility] Comment:Chronic Kidney Disea se: Estimated GFR < 60 mL/min/1.84u7Wfwwyh Kidney Disease: Estimated GFR < 15 mL/min/1.73m2 Glucose 147(H) 60 - 115 mg/dL [facility] Calcium 9.7 8.4 - 10.2 mg/dL [facility] Blood Venous blood specimen / Unknown 04/12/2025 10:26 AM EDT 04/12/2025 11:02 AM EDT [facility] ASSET RECOVERY SPECIALIST LAB BLOOD ORDERABLES Final Re sult [facility] [address] [place] [phone] [phone] * T-SPOT??.TB (03/20/2025 9:09 AM EDT) Only the most recent of2 resultswithin the time period is included. T-Spot. TB Negative Negative [facility] [place] Comment: A negative test result does not exclude the possibility of exposure to or infection with Mycobacterium tuberculosis (M. tuberculosis). Patients with recent exposure to TB infected individuals exhibiting a negative T-SPOT.TB result should be considered for retesting within 6 weeks or if other relevant clinical symptoms indicate. Results from T-SPOT.TB testing must be used in conjunction with each individual's epidemiological history, current medical status, and results of other diagnostic evaluations. The T-SPOT.TB test is qualitative and results are reported as positive, borderline, or negative, given that the test controls perform as expected. In line with the Centers for Disease Control and Prevention's 2010 recommendation to report quantitative measurements alongside the qualitative result, the laboratory provides spot counts for informational purposes only. The T-SPOT.TB test should not be interpreted as a quantitative test. Panel A Spot Count Corrected For Neg Control 1 [facility] Panel B Spot Count Corrected For Neg Control 1 [facility] Negative Control Passed [facility] Positive Control Passed [facility] Comment: For additional information, please refer to http://education.[employer]/faq/DJG676 (This link is being provided for informational/ educational purposes only.) 03/20/2025 9:09 AM EDT 03/20/2025 9:11 AM EDT us Rolanda Thakur MD LAB BLOOD ORDERABLES Final Result [facility] [address] [place] [address], [facility], [place] [address] [employer] [facility] [facility] [address] [place] [phone] * Slide Review (03/19/2025 3:13 PM EDT) Slide Review VERIFIED [facility] 03/19/2025 3:13 PM EDT 03/19/2025 5:56 PM EDT us Rolanda Thakur MD LAB BLOOD ORDERABLES Final Result [facility] [address] [place] [phone] * (ABNORMAL) CBC auto differential (03/19/2025 3:13 PM EDT) White Blood Count 8.1 4.8 - 10.8 X10*3/uL [facility] Red Blood Count 4.20 4.20 - 5.50 X10*6/uL [facility] Hemoglobin 12.6 12.0 - 16.0 g/dl [facility] Hematocrit 37.4 37.0 - 47.0 % [facility] Mean Corpuscular Volume 89.0 80.0 - 98.0 fL [facility] Mean Corpuscular Hemoglobin 30.0 27.0 - 33.0 pg [facility] Mean Corpuscular HGB Conc 33.7 31.0 - 35.0 g/dl [facility] Red Cell Distribution Width 13.1 11.0 - 16.0 % [facility] Platelet Count TNP 160 - 400 X10*3/uL [facility] Comment:Platelet clumps note d. Platelet count will not be accurate. Mean Platelet Volume 9.0(L) 9.4 - 12.3 fL [facility] Neutrophils Percent Auto 61.2 45 - 73 % [facility] Imm Gran Pct Auto 0.4 0.0 - 0.4 % [facility] Lymphocytes Percent Auto 29.0 20 - 40 % [facility] Monocytes Percent Auto 6.8 2 - 11 % [facility] Eosinophils Percent Auto 1.9 0 - 4 % [facility] Basophils Percent Auto 0.7 0 - 2 % [facility] NRBC Pct Auto 0.0 0.0 - 0.2 /100WBC [facility] Neutrophils Absolute Auto 5.0 2.0 - 8.3 x10*3/uL [facility] Imm Gran Abs Auto 0.03 0.00 - 0.03 X10*3/uL [facility] Lymphocytes Absolute Auto 2.3 1.2 - 4.9 X10*3/uL [facility] Monocytes Absolute Auto 0.6 0.1 - 1.2 X10*3/uL [facility] Eosinophils Absolute Auto 0.2 0.0 - 0.4 X10*3/uL [facility] Basophils Absolute Auto 0.1 0.0 - 0.2 X10*3/uL [facility] NRBC Abs Auto 0.000 0.0 - 0.012 X10*3/uL [facility] Blood Venous blood specimen / Unknown 03/19/2025 3:13 PM EDT 03/19/2025 5:56 PM EDT us Rolanda Thakur MD LAB BLOOD ORDERABLES Edited Result - Final [facility] [address] [place] [phone] * XR Knee 1-2 Views Left (02/13/2025 10:49 AM EDT) Anatomical Region Laterality Modality Lower Extremities, Knee Left Radiogra phic Imaging 02/13/2025 10:4 9 AM EDT Narrative 02/13/2025 12:29 PM EDT [facility] [address] [place] [address] [place] [address] XRay Report Signed Patient: Angely Pineda MR#: [id number] : 1950 Acct:[id number] Age/Sex: 74 / F ADM Date: 02/13/25 Loc: HO.HMGCX Attending Dr: Latonia De Jesus [employer]ING [employer] MANAGER Ordering Physician: Latonia De Jesus NP Date of Service: 02/13/25 Procedure(s): XR knee LT 2V Accession Number(s): [id number] cc: Rolanda Thakur MD; Latonia De Jesus NP EXAMINATION: XR KNEE, LEFT CLINICAL INFORMATION: M17.12 - Unilateral primary osteoarthritis, left knee COMPARISON: None available. TECHNIQUE: AP and lateral x-rays of the lower extremity joint, of the left knee. FINDINGS: Small amount joint fluid is evident. There is mild narrowing of the lateral joint space. Small marginal ossified is visible at the superior pole of patella. Minimal osteophyte formation is present along the medial margin of the tibial plateau. XR/XR knee LT 2V IMPRESSION: Minimal degenerative change, early osteoarthritis. Small joint effusion. Electronically signed by: Theodore Mercer MD 02/13/2025 12:26 PM EDT Dictated By: Theodore Mercer MD Signed By: <Electronically signed by Theodore Mercer MD in OV> 02/13/25 1226 DD/ 1049 TD/TT: 02/13/25 1146 Record Librarian: Procedure Note Donotuseinterpreter, Image - 02/13/2025 [facility] Adult Primary Care [facility] [place] [address] XRay Report Signed Patient: Angely PinedaMR#: [id number] : [id number]:[id number] Age/Sex: 74 / FADM Date: 02/13/25 Loc: HO.HMGCX Attending Dr: Latonia De Jesus NP Ordering Physician: Latonia De Jesus NP Date of Service: 02/13/25 Procedure(s): XR knee LT 2V Accession Number(s): [id number] cc: Rolanda Thakur MD; Latonia De Jesus NP EXAMINATION: XR KNEE, LEFT CLINICAL INFORMATION: M17.12 - Unilateral primary osteoarthritis, left knee COMPARISON: None available. TECHNIQUE: AP and lateral x-rays of the lower extremity joint, of the left knee. FINDINGS: Small amount joint fluid is evident. There is mild narrowing of the lateral joint space. Small marginal ossified is visible at the superior pole of patella. Minimal osteophyte formation is present along the medial margin of the tibial plateau. XR/XR knee LT 2V IMPRESSION: Minimal degenerative change, early osteoarthritis. Small joint effusion. Electronically signed by: Theodore Mercer MD 02/13/2025 12:26 PM EDT Dictated By: Theodore Mercer MD Signed By: <Electronically signed by Theodore Mercer MD in OV> 02/13/25 1226 DD/ 1049 TD/TT: 02/13/25 1146 Record Librarian: [facility] External Provider IMG XR PROCEDURES Final Result * (ABNORMAL) TSH (02/05/2025 12:22 PM EDT) Thyroid Stimulating Hormone 6.33(H) 0.32 - 4.0 uIU/mL [facility] Comment:Note: A sustained TS H level above 2.5 uIU/mL may warrant further investigation. TSH 3rd Generation ([facility]) Blood Venous blood specimen / Unknown 02/05/2025 12:22 PM EDT 02/05/2025 1:20 PM EDT [facility] ASSET RECOVERY SPECIALIST LAB BLOOD ORDERABLES Final Re sult [facility] [address] [place] [phone] * (ABNORMAL) Hemoglobin A1c (02/05/2025 12:22 PM EDT) Hemoglobin A1c 7.4(H) <6.0 % [facility] Comment:Hemoglobin A1C Refer ence Range Adults: 4.8 - 6.0 % Non diabetic: < 6.0 % Goal: < 7.0 %Additional Action Suggested: > 8.0 %Note: Hemoglobin A1c results are invalid for patients with abnormal amounts of HbF. Blood transfusions may impact the HbA1c concentration in the patient sample. Estimated Average Glucose 166 mg/dL [facility] Comment:eAG = Estimated ave rage glucose which is %A1C expressed asaverage glucose, using the formula of the W5A-NvskkvnEcuhjsw Glucose study (ADAG), Diabetes Care, Vol.31,#8,2007 Blood Venous blood specimen / Unknown 02/05/2025 12:22 PM EDT 02/05/2025 1:20 PM EDT Rolanda Thakur MD LAB BLOOD ORDERABLES Final Result [facility] [address] [place] [phone] * POCT glucose manually resulted (02/05/2025 11:31 AM EDT) Glucose Blood, POC 188 60 - 200 mg/dL Blood Capillary blood specimen / Unknown 02/05/2025 11:31 AM EDT [facility] ASSET RECOVERY SPECIALIST POINT OF CARE TEST ENTER/EDIT ORDERABLES Final Result * Hm Mammography (12/17/2024 8:40 AM EDT) Anatomical Region Laterality Modality Other Historical Provider HEALTH MAINTENANCE Final Result * Cologuard?? colon cancer screening (08/09/2024 8:30 AM EST) Cologuard Result Negative Negative 08/18/20 11:52 PM [employer] (CLIA #:[id number]) Comment: NEGATIVE TEST RESULT. A negative Cologuard result indicates a low likelihood that a colorectal cancer (CRC) or advanced adenoma (adenomatous polyps with more advanced pre-malignant features) is present. The chance that a person with a negative Cologuard test has a colorectal cancer is less than 1 in 1500 (negative predictive value >99.9%) or has an advanced adenoma is less than 5.3% (negative predictive value 94.7%). These data are based on a prospective cross-sectional study of 10,000 individuals at average risk for colorectal cancer who were screened with both Cologuard and colonoscopy. (Dioni Lua. et al, N Engl J Med 2014;370(14):6648-7371) The normal value (reference range) for this assay is negative. COLOGUARD RE-SCREENING RECOMMENDATION: Periodic colorectal cancer screening is an important part of preventive healthcare for asymptomatic individuals at average risk for colorectal cancer. Following a negative Cologuard result, the [place] [employer] Society and U.S. Multi-Society Task Force screening guidelines recommend a Cologuard re-screening interval of 3 years. References: [place] [employer] Guideline for Colorectal Cancer Screening: https://www.cancer.org/cancer/unrdc-vzqmpk-rnbrbq/trvnkvqmt-rroshgkxe-gbwnzof/ac s-rec ommendations.html.; Santiago MCINTYRE, Ileana PERERA, Emery LalaK, Colorectal Cancer Screening: Recommendations for Physicians and Patients from the U.S. Multi-Society Task Force on Colorectal Cancer Screening , Am J Gastroenterology 2017; 112:8821-7188. TEST DESCRIPTION: Composite algorithmic analysis of stool DNA-biomarkers with hemoglobin immunoassay. Quantitative values of individual biomarkers are not [...] Celaya et al, N Engl J Med 2014;370(14):7638-7362.) Cologuard may produce a false negative or false positive result (no colorectal cancer or precancerous polyp present at colonoscopy follow up). A negative Cologuard test result does not guarantee the absence of CRC or advanced adenoma (pre-cancer). The current Cologuard screening interval is every 3 years. ([place] [employer] Society and U.S. Multi-Society Task Force). Cologuard performance data in a 10,000 patient pivotal study using colonoscopy as the reference method can be accessed at the following location: www.InstaMed/results. Additional description of the Cologuard test process, warnings and precautions can be found at www.cologuard.com. Stool specimen (specimen) 08/09/2024 8:30 AM EST 08/10/2024 2:47 PM EST us Rolanda Thakur MD LAB MOLECULAR DIAGNOSTICS O RDERABLES Final Result [employer] (CLIA #:[id number]) [address] [place] [address], * Hepatitis C Antibody with Reflex to HCV, RNA, Quantitative, Real-Time PCR (07/17/2024 3:20 PM EST) Hepatitis C Antibody Nonreactive Nonreactive [facility] Comment:Antibodies to HCV no t detected; does not exclude early acuteHCV infection. Blood Venous blood specimen / Unknown 07/17/2024 3:20 PM EST 07/17/2024 5:23 PM EST us Thevenin Beauzile MD LAB BLOOD ORDERABLES Final Result Performing Organization Address [facility]/ZIP Co de Phone Number [facility] [address] [place] [phone] * Albumin, Random Urine W/Creatinine (07/17/2024 2:55 PM EST) Creatinine, Urine 38.88 mg/dL [facility] Microalbumin Urine <5.0 mg/L [facility] Microalbum Creatinine Ratio Ur TNP <30 ug/mg cr [facility] Comment:Unable to calculate albumin/creatinine ratio due to lowmicroalbumin or creatinine result. Urine (Urine, Random) 07/17/2024 2:55 PM EST 07/17/2024 5:25 PM EST Rolanda Thakur MD LAB URINE ORDERABLES Final Result Performing Organization Address [facility] Co de Phone Number [facility] [address] [place] [phone] * HM gFOBT (01/03/2022) Fecal Occult Blood 1 Negative Fecal Occult Blood 2 Negative Fecal Occult Blood 3 Negative 01/03/2022 Historical Provider POINT OF CARE TEST ENTER/ EDIT ORDERABLES Final Result from Last 3 Months or Most Recently Relevant to Health Maintenance Insurance [facility] MEDICARE REPLACEMENT Care Teams Supervisor Nurse Relationship Specialty Start Date End Date Rolanda Thakur MD [address] [place], [place] [address] [place] [address] PCP - General Internal Medicine 09/19/22
--- OUTSIDE RECORDS SUMMARY | 2025-04-18 09:21 | XMS_ITS | Encounter Summary ---
Author Organization [employer] Address [address] [place] [address] [address] [place] [address] Care Team Providers Care Net Application Support Specialist Name Role Phone Rolanda Thakur MD Primary Care Provider [phone] Reason for Referral * Consultation (Routine) - Closed Specialty Diagnoses / Procedures Referred By Freddy meadows Referred To Contact Neurology Diagnoses Other polyneuropathy Rolanda Thakur MD [address] [place] [address] Phone: tel: fax: [facility] [address] [place], [place] Phone: tel: fax: Referral ID Status Reason Start Date Expiration Date V isits Requested Visits Authorized [id number] Closed Specialty Services Required 11/22/2023 11/21/2024 1 1 * Consultation (Routine) - Closed Specialty Diagnoses / Procedures Referred By Freddy meadows Referred To Contact Physiatry Diagnoses Other polyneuropathy Rolanda Thakur MD [address] [place] [address] Phone: tel: fax: Referral ID Status Reason Start Date Expiration Date V isits Requested Visits Authorized [id number] Closed Specialty Services Required 11/17/2023 11/16/2024 1 1 Encounter Details Date Type Department Care Team ([facility] st Contact Info) Description 11/16/2023 Orders Only [facility] MED & PEDS [address] [place] [address] Rolanda Thakur MD [address] [place] [address] Other polyneuropathy (Primary Dx) Social History Tobacco [...] documented in this encounter Care Teams Net Application Support Specialist Relationship Specialty Start Date End Date Rolanda Thakur MD [address] [place] [address] PCP - General Internal Medicine 09/19/22 documented as of this encounter
--- OUTSIDE RECORDS SUMMARY | 2025-04-18 09:21 | XMS_ITS | Encounter Summary ---
Author Organization [employer] Address [address] [place] [address] Care Team Providers Care Gas Appliance Repairer Name Role Phone Rolanda Thakur MD Primary Care Provider [phone] Reason for Visit * Reason Onset Date Comments Medication Question 10/23/2023 Encounter Details Date Type Department Care Team ([facility] st Contact Info) Description 10/23/2023 Telephone [facility] [address] [place] [address] Rolanda Thakur MD [address] [place], [place] [phone] Medication Question Social History Tobacco Use Types [...] on filedocumented in this encounter Care Teams Gas Appliance Repairer Relationship Specialty Start Date End Date Rolanda Thakur MD [address] [place] [address] PCP - General Internal Medicine 09/19/22 documented as of this encounter
--- OUTSIDE RECORDS SUMMARY | 2025-04-18 09:21 | XMS_ITS | Encounter Summary ---
Author Organization [employer] Address [address] [place] [address] Care Team Providers Care Superior Court Justice Name Role Phone Rolanda Thakur MD Primary Care Provider [phone] Encounter Details Date Type Department Care Team ([facility] st Contact Info) Description 12/07/2023 Telephone [facility] MEDICINE [address] [place] [address] [phone] Rolanda Thakur MD [address] [place] [address] Social History Tobacco Use Types Packs/Day Years [...] on filedocumented in this encounter Care Teams Superior Court Justice Relationship Specialty Start Date End Date Rolanda Thakur MD [address] [place] [address] PCP - General Internal Medicine 09/19/22 documented as of this encounter
--- OUTSIDE RECORDS SUMMARY | 2025-04-18 09:21 | XMS_ITS | Encounter Summary ---
Author Organization [employer] Address [address] [place] [address] Care Team Providers Care Test Evaluator Name Role Phone Rolanda Thakur MD Primary Care Provider [phone] Encounter Details Date Type Department Care Team ([facility] st Contact Info) Description 12/07/2023 Telephone [facility] MEDICINE [address] [place] [address] [phone] Rolanda Thakur MD [address] [place] [address] Social History Tobacco Use Types Packs/Day Years [...] on filedocumented in this encounter Care Teams Test Evaluator Relationship Specialty Start Date End Date Rolanda Thakur MD [address] [place] [address] PCP - General Internal Medicine 09/19/22 documented as of this encounter
--- OUTSIDE RECORDS SUMMARY | 2025-04-18 09:21 | XMS_ITS | Encounter Summary ---
Author Organization [employer] Address [address] [place] [address] Care Team Providers Care Safety Investigator/Cause Analyst Name Role Phone Rolanda Thakur MD Primary Care Provider [phone] Reason for Referral * Consultation (Routine) - Canceled Specialty Diagnoses / Procedures Referred By Conthernandez t Referred To Contact Endocrinology Diagnoses Type 2 diabetes mellitus without complication, without long-term current use of insulin (CMS/HCC) Rolanda Thakur MD [address] [place] [address] Phone: tel: fax: Referral ID Status Reason Start Date Expiration Date Visits Requested Visits Authorized [id number] Canceled Specialty Services Required 10/08/2024 10/08/2025 1 1 Encounter Details Date Type Department Care Team (Late st Contact Info) Description 10/08/2024 Orders Only [facility] MED & PEDS [address] [place] [address] Rolanda Thakur MD [address] [place], [place] [phone] Type 2 diabetes mellitus without complication, without [...] complication, without long-term current use of insulin ([facility]) Expected: 10/08/2024 (Approximate), Expires: 10/08/2025 documented as of this encounter Procedures Procedure Name Priority Date/Time Associated Diagnosis Comments HEMOGLOBIN A1C Routine 02/05/2025 12:22 PM EDT Type 2 diabetes mellitus without complication, without long-term current use of insulin (CMS/[facility]) documented in this encounter Results * (ABNORMAL) Hemoglobin A1c (02/05/2025 12:22 PM EDT) Hemoglobin A1c 7.4(H) <6.0 % [facility] Comment:Hemoglobin A1C Refer ence Range Adults: 4.8 - 6.0 % Non diabetic: < 6.0 % Goal: < 7.0 %Additional Action Suggested: > 8.0 %Note: Hemoglobin A1c results are invalid for patients with abnormal amounts of HbF. Blood transfusions may impact the HbA1c concentration in the patient sample. Estimated Average Glucose 166 mg/dL [facility] Comment:eAG = Estimated ave rage glucose which is %A1C expressed asaverage glucose, using the formula of the J9Q-RjgcddfCzfwvbt Glucose study (ADAG), Diabetes Care, Vol.31,#8,Mar. 2007 Blood Venous blood specimen / Unknown 02/05/2025 12:22 PM EDT 02/05/2025 1:20 PM EDT Rolanda Thakur MD LAB BLOOD ORDERABLES Final Result [facility] [address] [place] [phone] documented in this encounter Visit Diagnoses Diagnosis Type 2 diabetes mellitus without complication, without long-term current use of insulin ([facility])- Primary documented in this encounter Additional Health Concerns Assessment Noted Time PHQ-9 Depression Total Score: 2 05/13/20 24 9:24 AM EDT documented as of this encounter Care Teams Safety Investigator/Cause Analyst Relationship Specialty Start Date End Date Rolanda Thakur MD [address] [place] [address] PCP - General Internal Medicine 09/19/22 documented as of this encounter
--- OUTSIDE RECORDS SUMMARY | 2025-04-18 09:21 | XMS_ITS | Encounter Summary ---
Author Organization [employer] Address [address] [place] [address] Care Team Providers Care Housesmith Name Role Phone Rolanda Thakur MD Primary Care Provider [phone] Reason for Referral * Consultation (Routine) - Closed Specialty Diagnoses / Procedures Referred By Contac t Referred To Contact Podiatry Diagnoses Type 2 diabetes mellitus without complication, without long-term current use of insulin (CMS/HCC) Rolanda Thakur MD [address] [place] [address] Phone: tel: fax: Carl Avitia DPM Phone: tel: fax: Referral ID Status Reason Start Date Expiration Date V isits Requested Visits Authorized [id number] Closed Specialty Services Required 11/01/2023 10/31/2024 1 1 Encounter Details Date Type Department Care Team (Late st Contact Info) Description 10/23/2023 Orders Only [facility] MED & PEDS [address] [place] [address] Rolanda Thakur MD [address] [place] [address] Acquired hypothyroidism (Primary Dx); Type 2 diabetes [...] (CMS/HCC) documented in this encounter Care Teams Housesmith Relationship Specialty Start Date End Date Rolanda Thakur MD [address] [place] [address] PCP - General Internal Medicine 09/19/22 documented as of this encounter
--- OUTSIDE RECORDS SUMMARY | 2025-04-18 09:21 | XMS_ITS | Encounter Summary ---
Author Organization [employer] Address [address] [place] [address] Care Team Providers Care Chief Vendor Quality Name Role Phone Rolanda Thakur MD Primary Care Provider [phone] Encounter Details Date Type Department Care Team ([facility] st Contact Info) Description 12/28/2023 Orders Only [facility] MED & PEDS [address] [place], [place] [phone] Rolanda Thakur MD [address] [place] [address] Social History Tobacco Use Types Packs/Day Years [...] on filedocumented in this encounter Care Teams Chief Vendor Quality Relationship Specialty Start Date End Date Rolanda Thakur MD [address] [place] [address] PCP - General Internal Medicine 09/19/22 documented as of this encounter
--- OUTSIDE RECORDS SUMMARY | 2025-04-18 09:21 | XMS_ITS | Encounter Summary ---
Author Organization [employer] Address [address] [address] Care Team Providers Care Ordnance Engineer Name Role Phone Rolanda Thakur MD Primary Care Provider [phone] Reason for Visit * Reason Onset Date Comments Nurse Triage 09/24/2024 Encounter Details Date Type Department Care Team ([facility] st Contact Info) Description 09/24/2024 Telephone [facility] MEDICINE [address] [place] [address] Rolanda Thakur MD [address] [place], [place] [phone] Nurse Triage Social History Tobacco Use Types [...] WIC for today as no appts in [facility]. Pt states gets panic attacks if has to wait . Pt advised unfortunately no appts in [facility]> Unable to schedule ahead for WIC. Pt states will seek [facility] Walk IN clinic on [facility] in [place]. Will send to team as FYI to [...] acuity questions The caller accepted this outcome. [phone] documented in this encounter Plan of Treatment Not on file documented as of this encounter Visit Diagnoses Not on filedocumented in this encounter Additional Health Concerns Assessment Noted Time PHQ-9 Depression Total Score: 2 05/13/20 24 9:24 AM EDT documented as of this encounter Care Teams Ordnance Engineer Relationship Specialty Start Date End Date Rolanda Thakur MD [address] [place] [address] PCP - General Internal Medicine 09/19/22 documented as of this encounter
--- OUTSIDE RECORDS SUMMARY | 2025-04-18 09:21 | XMS_ITS | Encounter Summary ---
Author Organization [employer] Address [address] [place] [address] Care Team Providers Care Migratory Farm Hand Name Role Phone Rolanda Thakur MD Primary Care Provider [phone] Encounter Details Date Type Department Care Team ([facility] st Contact Info) Description 10/27/2023 Orders Only [facility] MED & PEDS [address] [place], [place] [phone] Bhavesh Yang, RN [address] [place] [address] Social History Tobacco Use Types Packs/Day Years [...] on filedocumented in this encounter Care Teams Migratory Farm Hand Relationship Specialty Start Date End Date Rolanda Thakur MD [address] [place] [address] PCP - General Internal Medicine 09/19/22 documented as of this encounter
--- OUTSIDE RECORDS SUMMARY | 2025-04-18 09:21 | XMS_ITS | Encounter Summary ---
Author Organization [employer] Address [address] [place] [address] Care Team Providers Care Insurance Claims Clerk Name Role Phone Rolanda Thakur MD Primary Care Provider [phone] Reason for Visit * Reason Onset Date Comments Referral 09/29/2022 Encounter Details Date Type Department Care Team ([facility] st Contact Info) Description 09/29/2022 Telephone [facility] MED & PEDS [address] [place] [address] Rolanda Thakur MD [address] [place] [address] Referral Social History Tobacco Use Types Packs/Day [...] to fax order to Dr Dempsey on [phone] Dempsey's office on [phone]. Will forward message to provider. RN called Roxanne and gave her the phone and fax number to Dr Dempsey's office and also to f/u when EM[facility] order is placed by PCP. * Telephone Encounter - Machelle Adam RN - 10/03/2022 10:09 AM EST Return call placed to Haylie at [facility], spoke with Jumana who states their office donot see pt for diabetic polyneuropathy but instead sees pt for foot drop or other issue. States Haylieis unavailable at this time but will informed her to call [facility] back if needed. Will forward message to PCP as FYI. * Telephone Encounter - Brinda Barnard - 09/29/2022 1:30 PM EST Tc from Haylie from [facility] med / rehab calling to inform they need more dx clarification for referral that was sent . and phone # [phone] documented in this encounter Plan of Treatment Not on file documented as of this encounter Visit Diagnoses Diagnosis Diabetic polyneuropathy associated with diabetes mellitus due to underlying condition (CMS/[facility])- Primary documented in this encounter Care Teams Insurance Claims Clerk Relationship Specialty Start Date End Date Rolanda Thakur MD [address] [place] [address] PCP - General Internal Medicine 09/19/22 documented as of this encounter
--- OUTSIDE RECORDS SUMMARY | 2025-04-18 09:21 | XMS_ITS | Encounter Summary ---
Author Organization [employer] Address [address] [place] [address] [address] [place] [address] Care Team Providers Care Trashman Name Role Phone Rolanda Thakur MD Primary Care Provider [phone] Reason for Visit * Reason Onset Date Comments Med Refill 12/26/2024 Encounter Details Date Type Department Care Team ([facility] st Contact Info) Description 12/26/2024 Refill [facility] CHC MED & PEDS [address] [place] [address] Maren Hough MD [address] [place] [address] Social History Tobacco Use Types Packs/Day Years [...] documented as of this encounter Care Teams Trashman Relationship Specialty Start Date End Date Rolanda Thakur MD [address] [place] [address] PCP - General Internal Medicine 09/19/22 documented as of this encounter
[2025-04-18 16:00] LABS: Appearance Urine Clear; Glucose Urine UA Negative (Negative); PH 6.0 (5.0-9.0); Specific Gravity - Urine 1.010 (1.005-1.025); UMIC TRIGGER UACC YES
[2025-04-18 16:07] LABS: UACC Culture Trigger YES
== END 2025-04-18 08:29 | disposition home or self-care (01) ==
LOC: HO.CHCLDS 08:28
PROVIDERS: Visit Provider Registered Nurse
DX: E03.9 Hypothyroidism, unspecified (principal); R39.9 Unspecified symptoms and signs involving the genitourinary system
CPT/HCPCS: 36415; 81001; 84443; 87086

== ENCOUNTER 2025-04-18 21:50 | Emergency (ER) | payer MEDICARE, SELFPAY ==
[2025-04-18 21:54] VITALS: BP 232/107; PULSE 75; RESP 20; TEMP 36.4; O2SAT 99; BMI 25.4
[2025-04-18 22:11] VITALS: BP 189/77
[2025-04-18 22:13] VITALS: BP 189/77; PULSE 70; RESP 17; O2SAT 100
--- OUTSIDE RECORDS SUMMARY | 2025-04-18 22:31 | XMS_ITS | Continuity of Care Document ---
Author Organization [facility] [address] [facility] [address] [place] [address] Phone [phone] Care Team Providers Care Director Of Digital Platforms Name Role Phone Rolanda Thakur M.D. Care Team Information Re ceiver [phone] Social History Type Date Description Comments Sex [...]
--- OUTSIDE RECORDS SUMMARY | 2025-04-18 22:31 | XMS_ITS | Clinical Summary ---
Author Organization [facility] Address [address] [place] [address] Phone Care Team Providers Care Press Smith Helper Name Role Phone Rolanda Thakur MD Primary Care Provider [phone] Allergies Active Allergy Reactions Criticality Noted Date [...] aware that this will likely be an [id number] cost and feels as though she can afford it. I will review results and determine need for future follow-up. In the meantime she would like to hold off on statin therapy which I think is totally reasonable. Orders: ECG 12 lead Pure hypercholesterolemia 07/08/2024 Assessment & Plan (07/08/2024 4:42 PM EST): See plan above. Encounters Date Type Department Care Team Description 04/02/2025 Telephone [facility] [address] [place] [address] Nikki Rawls MD from Last [...] Description 06/23/2025 7:40 AM EST Office Visit [facility] - [address] [facility] [address] [place] [address] Kadi Palacios, MARIBEL [address] [place] [address] [place] [address] Health Maintenance Due Date Last Done Comments [...] year. Mammo Location: [facility], [address] [place] [address], [id number], . -------- FINAL REPORT -------- Dictated By: Peggy Reddy Dictated Date: 12/18/2024 07:51 ET Assigned Physician: Peggy Reddy Reviewed and Electronically Signed By: Peggy Reddy Signed Date: 12/18/2024 07:55 ET Workstation ID: [id number] Transcribed By: Self Edit Transcribed Date: 12/18/2024 [...] year. Mammo Location: [facility], [address] [place] [address], [address], . -------- FINAL REPORT -------- Dictated By: Peggy Reddy Dictated Date: 12/18/2024 07:51 ET Assigned Physician: Peggy Reddy Reviewed and Electronically Signed By: Peggy Reddy Signed Date: 12/18/2024 07:55 ET Workstation ID: [id number] Transcribed By: Self Edit Transcribed Date: 12/18/2024 07:51 ET us Self Referral Sppl IMG BI PROCEDURES Final Resul t * MOHAMUD DEXA AXIAL SKELETON (04/12/2023 7:46 AM EDT) Anatomical Region Laterality Modality Mammography 04/11/2023 3:03 PM EDT Narrative 04/12/2023 7:46 AM EDT [facility] Diagnostic Imaging Department [address] [place] [address] Patient: ANGELY PINEDA.O.B./Age/Sex: 1950 - 72 - F Unit#: [id number] Location/Status: SPDIMAM/REG CLI Mnemonic[facility] Ordering Physician: MAREN HOUGH MD [...] probability of hip fracture of 2.2%. Code 05173 Dictating Physician: GWENDOLYN BAHENA MD Electronically Signed by: GWENDOLYN BAHENA MD Dic Date/Time: 04/12/23 0745 Sign date/Time: 04/12/23 0746 Procedure Note Gwendolyn Bahena MD - 09/26/2023 [facility] Diagnostic Imaging Department [address] [place] [address] Patient: ANGELY PINEDA /Age/Sex: 1950 - 72 - F Unit#: [id number] Location/Status: SPDIMAM/REG CLI Mnemonic/[facility] Ordering Physician: MAREN HOUGH MD [facility] Dexa Axial Skeleton - 04/11/231532 [...] density of the femurs bilaterally is 0.874 gm/ak8ibrib is 87% of that of young normals [...] probability of hip fracture of 2.2%. Code 29851 Dictating Physician: GWENDOLYN BAHENA MD Electronically Signed by: GWENDOLYN BAHENA MD Dic Date/Time: 04/12/2345 Sign date/Time: 04/12/23745 Maren Hough MD IMG BI PROCEDURES Final Result from Last 3 Months or Most Recently Relevant to Health Maintenance Insurance [employer] MEDICARE Care Teams Press Smith Helper Relationship Specialty Start Date End Date Rolanda Thakur MD [address] [place], [place] PCP - General 11/03/23
--- OUTSIDE RECORDS SUMMARY | 2025-04-18 22:31 | XMS_ITS | Clinical Summary ---
Author Organization [facility] Facility Address [address] [place] [id number] Care Team Providers Care Respiratory Scientist Name Role Phone Maren Hough MD Primary Care Provider [phone] Social History Tobacco Use Types Packs/Day Years [...] patient's age to complete this topic Insurance [facility] Medicare [facility] Medicare Care Teams Respiratory Scientist Relationship Specialty Start Date End Date Maren Hough MD [address] [place] [id number] PCP - General Family Medicine 06/20/22
--- OUTSIDE RECORDS SUMMARY | 2025-04-18 22:31 | XMS_ITS | Clinical Summary ---
Author Organization [facility] Address [address] [place], [place] [id number] Care Team Providers Care Packaging Sales Name Role Phone Rahel Hough MD Primary Care Provider [phone] Allergies Active Allergy Reactions Criticality Noted Date [...] mg by mouth daily. 0 09/09/2020 Active Strawberry Point-3 Fatty Acids (FISH OIL) 1000 MG CAPS [...] age to complete this topic Care Teams Packaging Sales Relationship Specialty Start Date End Date Rahel Hough MD [address] [facility] [place] [address] PCP - General Internal Medicine 11/20/20
[2025-04-18 22:43] VITALS: BP 159/74; PULSE 63
[2025-04-18] MEDS: diazePAM 10 MG/2 ML CARTRIDGE 5 MG IVPUSH (22:46)
[2025-04-18 22:59] VITALS: BP 156/67; PULSE 64; RESP 18; O2SAT 98
--- NOTE | 2025-04-19 00:38 | ED.GENADULT ---
HPI - General Adult General Chief complaint: General Medical Stated complaint: Allergic reaction to meds prescribed today Time Seen by Provider: 04/18/25 22:14 Source: patient Limitations: no limitations History of Present Illness ED Provider: Emily Suarez PA-C HPI narrative: 74-year-old female with a history of diabetes, hyperlipidemia, hypertension, hypothyroidism, anxiety with panic attack who presents with a allergic reaction. Patient states she was just diagnosed with a urinary tract infection she was placed on Macrobid. Patient states she took a dose this evening, then developed difficulty swallowing. Patient gave herself 25 mg of Benadryl, her symptoms have improved. She still has a sense that her throat is tight. Denies urticaria, swelling of lips, tongue, face. Denies dyspnea or chest pain. No active GI symptoms. Related Data Home Medications ?Medication ?Instructions ?Recorded ?Confirmed ascorbic acid (vitamin C) 500 mg PO 02/24/24 03/18/25 chewable tablet (Vitamin C) cholecalciferol (vitamin D3) 50 50 mcg PO DAILY 02/24/24 03/18/25 mcg (2,000 unit) capsule clonazepam 0.5 mg tablet 0.5 mg PO DAILY PRN panic attack 09/24/24 03/18/25 vitamin B complex 1 tab PO DAILY 11/09/24 03/18/25 losartan 100 mg tablet 100 mg PO DAILY 01/25/25 03/18/25 cetirizine 10 mg tablet 10 mg PO DAILY 02/13/25 03/18/25 cyclobenzaprine 10 mg tablet 10 mg PO .prn 02/13/25 03/18/25 glipizide 10 mg tablet, extended 10 mg PO BID 03/08/25 03/18/25 release 24 hr levothyroxine 125 mcg tablet mcg PO 03/08/25 03/18/25 (Synthroid) clonidine HCl 0.1 mg tablet 0.1 mg PO 3XD 03/18/25 03/18/25 aspirin 81 mg tablet,delayed 81 mg PO DAILY 04/12/25 release blood sugar diagnostic (OneTouch #10 ea 04/12/25 Ultra Test strips) blood-glucose sensor ([place] G7 #1 ea 04/12/25 Sensor device) buspirone 10 mg tablet 10 mg PO BID 04/12/25 metformin 500 mg tablet 500 mg PO BID 04/12/25 multivitamin with folic acid 400 1 tab PO DAILY 04/12/25 mcg tablet (Daily-Saadia (with folic acid)) Previous Rx's ?Medication ?Instructions ?Recorded cephalexin 500 mg capsule 500 mg PO Q12H #13 caps 04/19/25 epinephrine 0.3 mg/0.3 mL 0.3 mg (0.3 mL) IM Q10M PRN 04/19/25 injection, auto-injector (EpiPen anaphylaxis #2 ea 2-Yahir) methylprednisolone 4 mg tablets in 4 mg PO QAM #21 ea 04/19/25 a dose pack (Medrol (Yahir)) Allergies Allergy/AdvReac Type Severity Reaction Status Date / Time meloxicam Allergy Mild Dizziness Verified 04/18/25 21:59 ciprofloxacin Allergy Unknown Verified 04/18/25 21:59 sulfamethoxazole (From Allergy Unknown Verified 04/18/25 21:59 Bactrim) trimethoprim (From Bactrim) Allergy Unknown Verified 04/18/25 21:59 gabapentin (GABAPENTIN) AdvReac Mild NAUSEA Verified 04/18/25 21:59 acetaminophen (From PERCOCET) AdvReac Unknown VOMITTING Verified 04/18/25 21:59 codeine (CODEINE) AdvReac Unknown VOMITTING Verified 04/18/25 21:59 meperidine (From DEMEROL) AdvReac Unknown VOMITTING Verified 04/18/25 21:59 morphine (MORPHINE) AdvReac Unknown CANT OPEN Verified 04/18/25 21:59 HER EYES oxycodone (From PERCOCET) AdvReac Unknown VOMITTING Verified 04/18/25 21:59 scallops (SCALLOPS) AdvReac Unknown ABD PAIN Verified 04/12/25 09:07 Review of Systems Review of Systems: Yes all other systems are reviewed and are negative Constitutional: Constitutional: Denies fatigue and Denies fever(s) ENT: Reports dysphagia, Denies hoarseness, Denies lip swelling, Denies sore throat, Denies throat swelling and Denies tongue swelling Cardiovascular: Cardiovascular: Denies chest pain and Denies dyspnea Respiratory: Respiratory: Denies cough, Denies dyspnea, Denies stridor and Denies wheezing Gastrointestinal: Gastrointestinal: Reports dysphagia, Denies diarrhea, Denies nausea and Denies vomiting Endocrine: Endocrine: Denies fatigue Allergic/Immunologic: Allergic/Immunologic: Denies lip swelling, Denies throat swelling, Denies tongue swelling and Denies wheezing PMFSH Past Medical History Attestation statement: The following information was validated with the patient. 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 Tobacco Use Status: Never used Tobacco Smoked in Last 30 Days: No Use of substances other than those prescribed or required for medical reasons: No Advance Directives: No Advance Directives Information Provided: No Do you have a plan to hurt others: No Plan Physical Exam ED Vital Signs: Vital Signs - 24 hr 04/18/25 21:54 04/18/25 22:11 04/18/25 22:13 Temperature 97.6 F Pulse Rate 75 70 Respiratory Rate 20 17 Blood Pressure 232/107 H 189/77 H 189/77 H Pulse Oximetry 99 100 Oxygen Delivery Method Room Air Room Air 04/18/25 22:43 04/18/25 22:59 04/19/25 01:05 Temperature 97.7 F Pulse Rate 63 64 61 Respiratory Rate 18 16 Blood Pressure 159/74 H 156/67 H 164/63 H Pulse Oximetry 98 100 Oxygen Delivery Method Room Air Room Air 04/19/25 01:07 Temperature 97.7 F Pulse Rate 61 Respiratory Rate 16 Blood Pressure 164/63 H Pulse Oximetry 100 Oxygen Delivery Method Room Air BMI result Body Mass Index 25.4 Const Other: Alert Orientation/consciousness: patient oriented x3 HENMT Other: Oropharynx is clear, uvula midline, no angioedema Resp Other: No stridor Effort & Inspection: normal respiratory effort Cardio Other: Normal peripheral perfusion Skin Other: Warm dry no rash Neuro General: patient oriented x3, gait normal, no focal motor deficits and CN's II-XI intact bilaterally Psych Other: Cooperative Course Reevaluation(s) Reevaluation #1: Symptoms resolved, the patient is eager for discharge Medications Administered Discontinued Medications Generic Name Dose Route Start Last Admin Trade Name Freq PRN Reason Stop Dose Admin Cephalexin HCl 500 mg 04/19/25 00:38 04/19/25 01:07 Cephalexin 500 Mg Capsule PO 04/19/25 00:39 500 mg ONCE ONE Administration Diazepam 5 mg 04/18/25 22:20 04/18/25 22:46 Diazepam 10 Mg/2 Ml Cartridge IVPUSH 04/18/25 22:21 5 mg STAT STA Administration Epinephrine 0.3 mg 04/18/25 22:20 04/18/25 22:43 Epinephrine 1 Mg/Ml Vial IM 04/18/25 22:21 0.3 mg STAT STA Administration Famotidine 20 mg 04/18/25 22:20 04/18/25 22:42 Famotidine/Pf 20 Mg/2 Ml Vial IVPUSH 04/18/25 22:21 20 mg ONCE ONE Administration Methylprednisolone Sodium Succinate 60 mg 04/18/25 22:20 04/18/25 22:42 Methylprednisolone Sod Succ 125 Mg/2 Ml Vial IVPUSH 04/18/25 22:21 60 mg ONCE ONE Administration Medical Decision Making Medical Decision Making MDM Narrative: 74-year-old female with a history of diabetes, hyperlipidemia, hypertension, hypothyroidism, anxiety with panic attack who presents with a allergic reaction. Patient states she was just diagnosed with a urinary tract infection she was placed on Macrobid. Patient states she took a dose this evening, then developed difficulty swallowing. Patient gave herself 25 mg of Benadryl, her symptoms have improved. She still has a sense that her throat is tight. Denies urticaria, swelling of lips, tongue, face. Denies dyspnea or chest pain. No active GI symptoms. Problem: Extensive allergy profile History: Per patient I have considered the following differential diagnoses: Anaphylaxis, angioedema, allergic reaction, urticaria Plan: The patient is having subjective symptoms of dysphagia. There were no external signs/sxs that she is having an allergic reaction. We will administer epinephrine, Solu-Medrol, famotidine and continue to monitor for progression of her reaction. No indication for labs or imaging. Differential Diagnosis Differential Diagnoses: The differential diagnosis associated with the presentation includes See MDM Admission/Observation Consideration of admission/observation: Escalation of care including admission/observation considered Not applicable Critical Care Time Critical Care Time Critical Care Time: Yes Total Critical Care Time: 30 Attestation: Zina Suarez PA-C have personally performed 30 minutes of critical care time not including lines and procedures; potential anaphylaxis Discharge Plan Discharge Clinical Impression: Allergic reaction Patient Disposition: Home, Self-Care Instructions: Antibiotic Medication Allergy (ED), General Allergic Reaction (ED) Additional Instructions: You were monitored for 3 hours status post receiving intramuscular epinephrine, to be sure your allergic reaction did not progress. It did not. If you develop similar symptoms, immediately administer the EpiPen to yourself, then seek medical attention. You should open the packaging and familiarize herself with a how to use the injection. Take the steroid taper as directed. Follow up with your primary care provider as needed. Do not use anymore nitrofurantoin, we are changing the antibiotic to cephalexin. Take it as directed, complete the course of antibiotic for your urinary tract infection. Prescriptions: New cephalexin 500 mg capsule 500 mg PO Q12H Qty: 13 0RF epinephrine [EpiPen 2-Yahir] 0.3 mg/0.3 mL auto-injector 0.3 mg IM Q10M PRN (Reason: anaphylaxis) Qty: 2 0RF Rx Instructions: for 3 doses methylprednisolone [Medrol (Yahir)] 4 mg tablets,dose pack 4 mg PO QAM Qty: 21 0RF Rx Instructions: Take per package instructions No Action losartan 100 mg tablet 100 mg PO DAILY ascorbic acid (vitamin C) [Vitamin C] 500 mg tablet,chewable PO cholecalciferol (vitamin D3) 50 mcg (2,000 unit) capsule 50 mcg PO DAILY clonazepam 0.5 mg tablet 0.5 mg PO DAILY PRN (Reason: panic attack) vitamin B complex Tablet 1 tab PO DAILY cetirizine 10 mg tablet 10 mg PO DAILY cyclobenzaprine 10 mg tablet 10 mg PO .prn levothyroxine [Synthroid] 125 mcg tablet PO glipizide 10 mg tablet extended release 24hr 10 mg PO BID clonidine HCl 0.1 mg tablet 0.1 mg PO 3XD (DME) OneTouch Ultra Test Strip See Rx Instructions .ROUTE BID Qty: 10 Rx Instructions: As directed aspirin 81 mg tablet,delayed release (DR/EC) 81 mg PO DAILY buspirone 10 mg tablet 10 mg PO BID multivitamin with folic acid [Daily-Saadia (with folic acid)] 400 mcg tablet 1 tab PO DAILY metformin 500 mg tablet 500 mg PO BID (DME) Dexcom G7 Sensor Device See Rx Instructions .ROUTE Q10D Qty: 1 Rx Instructions: As directed Interventions: ED Discharge Assessment Last Done: 04/19/25 01:07 Discharge Date/Time: 04/19/25 01:12 Print Language: Salvadorean
[2025-04-19 01:05] VITALS: BP 164/63; PULSE 61; RESP 16; TEMP 36.5; O2SAT 100
[2025-04-19 01:07] VITALS: BP 164/63; PULSE 61; RESP 16; TEMP 36.5; O2SAT 100
== END 2025-04-19 01:12 | disposition home or self-care (01) ==
PROVIDERS: Emergency Provider Emergency Medicine; PCP Internal Medicine
DX: T78.49XA Other allergy, initial encounter (principal); I10 Essential (primary) hypertension; E78.5 Hyperlipidemia, unspecified; E11.9 Type 2 diabetes mellitus without complications; Z87.440 Personal history of urinary (tract) infections; T37.8X5A Adverse effect of other specified systemic anti-infectives and antiparasitics, initial encounter; Y92.9 Unspecified place or not applicable; X58.XXXA Exposure to other specified factors, initial encounter
CPT/HCPCS: 96372; 96374; 96375; 99284; J0165; J1308; J2919; J3360

== ENCOUNTER 2025-04-30 08:11 | Outpatient (REF) | payer MEDICARE, SELFPAY ==
--- NOTE | ~2025-04-30 | XR_ITS ---
EXAMINATION: XR HAND 3 OR MORE VIEWS LEFT HISTORY: Left hand bruises and pain after a fall COMPARISON: There are no prior studies available for comparison. FINDINGS: Three views of the left hand are submitted. The trapezium is absent. Osseous mineralization is normal. There is no fracture or dislocation. The joint spaces are preserved. The soft tissues are unremarkable. XR/XR hand LT min 3V IMPRESSION: No evidence of fracture of the left hand. Electronically signed by: Jesus Shore MD 04/30/2025 09:16 AM EDT
--- NOTE | ~2025-04-30 | XR_ITS ---
EXAMINATION: XR HAND 3 OR MORE VIEWS RIGHT HISTORY: right hand and wrist pain after a fall. COMPARISON: There are no prior studies available for comparison. FINDINGS: Three views of the right hand are submitted. Osseous mineralization is normal. There is no fracture or dislocation. There are mild degenerative changes involving the radial aspect of the carpus. The soft tissues are unremarkable. XR/XR hand RT min 3V IMPRESSION: No evidence of fracture of the right hand. Electronically signed by: Jesus Shore MD 04/30/2025 09:18 AM EDT
[2025-04-30 13:51] LABS: Appearance Urine Clear; Glucose Urine UA Negative (Negative); PH 6.5 (5.0-9.0); Specific Gravity - Urine 1.010 (1.005-1.025); UMIC TRIGGER UACC YES
[2025-04-30 14:12] LABS: UACC Culture Trigger YES
== END 2025-04-30 08:12 | disposition home or self-care (01) ==
LOC: HO.HMGCX 08:11
PROVIDERS: PCP Internal Medicine; Visit Provider Internal Medicine
DX: E11.9 Type 2 diabetes mellitus without complications (principal); S69.91XD Unspecified injury of right wrist, hand and finger(s), subsequent encounter; S69.92XD Unspecified injury of left wrist, hand and finger(s), subsequent encounter; S60.222D Contusion of left hand, subsequent encounter; M53.3 Sacrococcygeal disorders, not elsewhere classified; F41.0 Panic disorder [episodic paroxysmal anxiety]; R03.0 Elevated blood-pressure reading, without diagnosis of hypertension; W18.39XD Other fall on same level, subsequent encounter; Z87.440 Personal history of urinary (tract) infections
CPT/HCPCS: 73130; 81001; 87086; 87088; 87186; 99212

== ENCOUNTER → 2025-04-30 08:50 | Outpatient (BNV) | payer MEDICARE, SELFPAY | PROVIDERS: PCP Internal Medicine; Visit Provider Radiology Diagnostic Radiology | DX: M79.642 Pain in left hand (principal); M79.641 Pain in right hand | CPT/HCPCS: 73130 ==

== ENCOUNTER 2025-04-30 09:36 | Outpatient (AMB) | payer MEDICARE, SELFPAY ==
[2025-04-30 10:33] VITALS: BP 152/64; PULSE 60; TEMP 36.6; O2SAT 100; BMI 25.4
--- NOTE | 2025-04-30 10:33 | AM.OFFWIN_ITS ---
Intake Vital Signs 04/30/25 10:33 Height 5 ft 4 in Weight 148 lb BMI 25.4 BP 152/64 H Blood Pressure Location Rt brachial Position Sitting Pulse 60 Pulse Source Pulse Oximeter Temp 97.8 F Temp Source Oral Pulse Oximetry (%) 100 Oxygen Delivery Method Room Air Intake Visit Reasons: ep panic attacks Intake Note: pt presents with panic attacks brought on by pain after a recent injury Patient Tobacco Use Status: Never used Tobacco Allergies meloxicam Allergy (Mild, Verified 04/30/25 10:33) Dizziness ciprofloxacin Allergy (Verified 04/30/25 10:33) Unknown sulfamethoxazole (From Bactrim) Allergy (Verified 04/30/25 10:33) Unknown trimethoprim (From Bactrim) Allergy (Verified 04/30/25 10:33) Unknown gabapentin (GABAPENTIN) Adverse Reaction (Mild, Verified 04/30/25 10:33) NAUSEA acetaminophen (From PERCOCET) Adverse Reaction (Unknown, Verified 04/30/25 10:33) VOMITTING codeine (CODEINE) Adverse Reaction (Unknown, Verified 04/30/25 10:33) VOMITTING meperidine (From DEMEROL) Adverse Reaction (Unknown, Verified 04/30/25 10:33) VOMITTING morphine (MORPHINE) Adverse Reaction (Unknown, Verified 04/30/25 10:33) CANT OPEN HER EYES oxycodone (From PERCOCET) Adverse Reaction (Unknown, Verified 04/30/25 10:33) VOMITTING scallops (SCALLOPS) Adverse Reaction (Unknown, Verified 04/30/25 10:33) ABD PAIN Medication List - Last Reconciled 04/30/25 by Consuelo Tan MD ascorbic acid (vitamin C) (Vitamin C) PO aspirin 81 mg PO DAILY blood sugar diagnostic (Alignment HealthcareTouch Ultra Test strips) As directed blood-glucose sensor (Macrotek G7 Sensor device) As directed buspirone 10 mg PO BID cephalexin 500 mg PO Q12H cetirizine 10 mg PO DAILY cholecalciferol (vitamin D3) 50 mcg PO DAILY clonazepam 0.5 mg PO DAILY PRN clonidine HCl 0.1 mg PO 3XD cyclobenzaprine 10 mg PO .prn epinephrine (EpiPen 2-Yahir) 0.3 mg (0.3 mL) IM Q10M PRN glipizide ER 10 mg PO BID levothyroxine (Synthroid) mcg PO losartan 100 mg PO DAILY metformin 500 mg PO BID methylprednisolone (Medrol (Yahir)) 4 mg PO QAM multivitamin with folic acid 400 mcg (Daily-Saadia (with folic acid)) 1 tab PO DAILY vitamin B complex 1 tab PO DAILY Do you need a note to return to daycare/school/sports/work: No HPI ep panic attacks HPI Details History of Present Illness The patient is a 74 year old female presenting with evaluation for pain following a fall and management of associated panic attacks due to insomnia and discomfort. Pain after fall: - The patient stated she fell while kalpana ening, landing on both hands and her tailbone. - X-rays were performed, revealing a rig ht hand hairline fracture and severe arthritis in the tailbone but no fracture. - Reports waking up at 3:30 to 4:00 AM d ue to pain while sleeping on her back. - The pain is described as a literal pa in in the ass and rated around 5/10 in intensity. - Concerns about sleeping positions exac erbating discomfort. - Has been experiencing panic attacks tr iggered by the pain. Panic Attacks: - Onset following cataract surgery. - Exacerbated by pain and sleep disturba nces. - Patient reports that clonazepam provid es partial relief. - Blood pressure readings were previousl y improved but have become high again due to infrequent clonidine use. Surgical History: - Cataract surgery. - Hand surgery performed by Dr. Rosas. Medications: - Clonazepam for panic attacks. - Clonidine, prescribed up to three time s per day for blood pressure and anxiety. - Buspirone, prescribed as needed, chichi schultz misunderstood as twice daily use. Social History: - Engages in gardening. - Lives with her daughter who provides e motional support. Diagnostic Results: - Tests and Diagnostics: - X-ray of the right hand showing a tiny hairline fracture. - X-ray of the tailbone indicating sever e arthritis but no fracture. Problem List - Hairline fracture of the right hand. Management through orthopedic patient has already seen the - Severe arthritis of the tailbone. - Panic attacks. - High blood pressure. Patient Instructions - Use a donut cushion while sitting to a lleviate tailbone pressure. - Ensure clonidine is taken three times daily as prescribed to manage blood pressure and anxiety. - Take buspirone three times daily. - Continue clonazepam as needed for diomedes c attacks. - Return to usual activities, such as [employer], if cleared. - follow up with orthopedic for hairline finger fracture Review of Systems - General: No fever no chills - Neurological: No headaches no dizziness - Ear nose throat: No sore throat no hearing difficulty no ear pain - Cardiovascular: No syncope, no chest pain, no palpitations - Gastrointestinal: No nausea vomiting or diarrhea Physical Exam General: No acute distress HEENT: No acute findings Neck: Supple Respiratory system: Able to talk in full sentences, no audible wheeze Cardiovascular: S1-S2 regular in rate and rhythm Gastrointestinal: No pain Extremities: Right hand 4th finger taped with 5th, due to hairline fracture, left hand thumb plantar aspect bruise, in splint 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 Skin: Normal turgor Psychiatry: Affect normal [facility] Medical History Osteoarthritis of left knee Lumbar degenerative disc disease Panic attacks Hypothyroid Hyperlipidemia HTN (hypertension) DM type 2 (diabetes mellitus, type 2) Social History Household Members Other:: 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, 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 Tobacco Use Status: Never used Tobacco Physical Exam Vital Signs: Last Vital Signs Temp 97.8 F 04/30/25 10:33 Pulse 60 04/30/25 10:33 BP 152/64 H 04/30/25 10:33 Pulse Ox 100 04/30/25 10:33 Oxygen Delivery Method Room Air 04/30/25 10:33 BMI result Body Mass Index 25.4 Assessment & Plan Assessment & Plan (1) Panic disorder: Code(s): F41.0 - Panic disorder [episodic paroxysmal anxiety] (2) Injury of right ring finger: Code(s): S69.91XA - Unspecified injury of right wrist, hand and finger(s), initial encounter Qualifiers: Encounter type: subsequent encounter Qualified Code(s): S69.91XD - Unspecified injury of right wrist, hand and finger(s), subsequent encounter (3) Injury of left hand: Code(s): S69.92XA - Unspecified injury of left wrist, hand and finger(s), initial encounter Qualifiers: Encounter type: subsequent encounter Qualified Code(s): S69.92XD - Unspecified injury of left wrist, hand and finger(s), subsequent encounter (4) Tail bone pain: Code(s): M53.3 - Sacrococcygeal disorders, not elsewhere classified (5) Elevated blood pressure reading: Code(s): R03.0 - Elevated blood-pressure reading, without diagnosis of hypertension Plan History of Present Illness The patient is a 74 year old female presenting with evaluation for pain following a fall and management of associated panic attacks due to insomnia and discomfort. Pain after fall: - The patient stated she fell while gardening, landing on both hands and her tailbone. - X-rays were performed, revealing a right hand hairline fracture and severe arthritis in the tailbone but no fracture. - Reports waking up at 3:30 to 4:00 AM due to pain while sleeping on her back. - The pain is described as a literal pain in the ass and rated around 5/10 in intensity. - Concerns about sleeping positions exacerbating discomfort. - Has been experiencing panic attacks triggered by the pain. Panic Attacks: - Onset following cataract surgery. - Exacerbated by pain and sleep disturbances. - Patient reports that clonazepam provides partial relief. - Blood pressure readings were previously improved but have become high again due to infrequent clonidine use. Surgical History: - Cataract surgery. - Hand surgery performed by Dr. Rosas. Medications: - Clonazepam for panic attacks. - Clonidine, prescribed up to three times per day for blood pressure and anxie ty. - Buspirone, prescribed as needed, possibly misunderstood as twice daily use. Social History: - Engages in gardening. - Lives with her daughter who provides emotional support. Diagnostic Results: - Tests and Diagnostics: - X-ray of the right hand showing a tiny hairline fracture. - X-ray of the tailbone indicating severe arthritis but no fracture. Problem List - Hairline fracture of the right hand. Management through orthopedic patient has already seen the - Severe arthritis of the tailbone. - Panic attacks. - High blood pressure. Patient Instructions - Use a donut cushion while sitting to alleviate tailbone pressure. - Ensure clonidine is taken three times daily as prescribed to manage blood pressure and anxiety. - Take buspirone three times daily. - Continue clonazepam as needed for panic attacks. - Return to usual activities, such as school, if cleared. - follow up with orthopedic for hairline finger fracture Coding Level of Care Code Est Pt Level 4 (65211) Diagnoses Panic disorder F41.0 Injury of right ring finger, subsequent encounter S69.91XD Encounter type: subsequent encounter Injury of left hand, subsequent encounter S69.92XD Encounter type: subsequent encounter Tail bone pain M53.3 Elevated blood pressure reading R03.0
== END 2025-04-30 10:53 | disposition home or self-care (01) ==
PROVIDERS: PCP Internal Medicine; Visit Provider Internal Medicine
DX: F41.0 Panic disorder [episodic paroxysmal anxiety] (principal); S69.91XD Unspecified injury of right wrist, hand and finger(s), subsequent encounter; S69.92XD Unspecified injury of left wrist, hand and finger(s), subsequent encounter; M53.3 Sacrococcygeal disorders, not elsewhere classified; R03.0 Elevated blood-pressure reading, without diagnosis of hypertension

== ENCOUNTER 2025-05-10 07:42 | Outpatient (REF) | payer MEDICARE, SELFPAY ==
--- OUTSIDE RECORDS SUMMARY | 2025-05-10 07:46 | XMS_ITS | Encounter Summary ---
Author Organization [employer] Address [address] [place] [address] Care Team Providers Care Hand Edger Name Role Phone Rolanda Thakur MD Primary Care Provider [phone]- [phone] Reason for Visit * Reason Comments Med Refill Encounter Details Date Type Department Care Team ([facility] st Contact Info) Description 12/03/2024 Refill [facility] CH[facility] MED & PEDS [address] [place], [place] [phone] Rolanda Thakur MD [address] [place] [address] Diabetic polyneuropathy associated with type 2 diabetes [...] as of this encounter Care Teams Hand Edger Relationship Specialty Start Date End Date Rolanda Thakur MD [address] [place] [address] PCP - General Internal Medicine 09/19/22 documented as of this encounter
--- OUTSIDE RECORDS SUMMARY | 2025-05-10 07:46 | XMS_ITS | Continuity of Care Document ---
Author Organization [facility] [address] [place] [address] Phone [phone] Care Team Providers Care Finished Cigar Maker Name Role Phone Rolanda Thakur M.D. Care Team Information Re ceiver [phone] Problems Active Problems Provider Date Type 2 diabetes mellitus Aren White M.D. Onset: 05/07/2025 Hypothyroidism Aren White M.D. Onset: 0 05/07/2025 History of thyroidectomy rAen White M.D. Onset: 05/07/2025 Social History Type Date Description Comments Sex Female Sex Unknown Allergies and adverse reactions Active Allergies Criticality Reaction Severity Comments Date Levothyroxine Unable to assess criticality 05/07/2025 Gabapentin Unable to assess criticality 05/07/2025 Percocet Unable to assess criticality 05/07/2025 Demerol Unable to assess criticality 05/07/2025 Meperidine / Promethazine Unable to assess criticality 05/07/2025 Medications Active Medications SIG Qnty Indications Order ing Provider Date [id number] Tablets 1 tab by mouth every day 90tabs Beauzile Thecarlain M.D. Losartan Lkykcbqiv436th Tablets 1 tab by mouth every day BeauzileRolanda M.DNaman Clonidine HCL0.1mg Tablets Beauzile Thevenin M.DNaman Buspirone HCL5mg Tablets 1 tab by mouth twice a day Bemitchellzile TheSunny brandonDNaman Clonazepam0.5mg Tablets Take 1 Tablet By Mouth Every Day as Needed For Panic Attacks Beauzile, Thevenin, M.D. Aspirin Low Nmie53gq Tablets Rolanda Morrissey M.D. Cyclobenzaprine SKD30yr Tablets Take 1 Tablet By Mouth Every 8 Hours Rolanda Thakur M.D. Metformin JUH089vf Tablets Take 1 Tablet By Mouth Twice Daily Demi Brothers MD Mmhawhybp87tf Tablets 1 tab by mouth twice a day 180tabs Rolanda Thakur M.D. Vital Signs Date Vital Result Comment 05/07/2025 9:25am BP Systolic 138 mmHg BP Diastolic 70 mmHg Heart Rate 72 /min Height 65 inches 5'5 Weight 149.00 lb BMI (Body Mass Index) 24.8 kg/m2 Results Test Acquired Date Facility Test Result H/L Range N ote Glucose Fingerstick 05/07/2025 Inhouse Glucose Fingerstick 152 Medical Devices Description No Information Available Encounters Description No Information Available Assessments Description No Information Available Plan of Treatment Future Appointment(s):* 10/08/2025 10:00 am - Aren White M.D. at Main Office * 07/15/2025 1:45 pm - Aren White M.D. at Main Office * 08/26/2025 1:45 pm - Aren White M.D. at Main Office 05/07/2025 - Aren White M.D.* * New Labs:* Glucose Fingerstick, Ordered: 05/07/25 * Comp. Metabolic Panel (14), Ordered: 05/07/25 * Lipid Panel, Ordered: 05/07/25 * Urinalysis, Complete, Ordered: 05/07/25 * Hemoglobin A1c, Ordered: 05/07/25 * CBC With Differential/Platelet, Ordered: 05/07/25 * TSH RFX On Abnormal To Free T4, Ordered: 05/07/25 * Albumin/Creatinine Ratio, Random Urine, Ordered: 05/07/25 Functional Status Description No Information Available Mental Status Description No Information Available Referrals Description No Information Available
--- OUTSIDE RECORDS SUMMARY | 2025-05-10 07:46 | XMS_ITS | Encounter Summary ---
Author Organization [employer] Address [address] [address] Care Team Providers Care Tax Compliance Manager Name Role Phone Rolanda Thakur MD Primary Care Provider [phone]- [phone] Reason for Visit * Reason Onset Date Comments Medication Question 11/27/2024 Encounter Details Date Type Department Care Team ([facility] st Contact Info) Description 11/27/2024 Telephone [facility] MEDICINE [address] [place] [address] Rolanda Thakur MD [address] [place], [place] [phone] Medication Question Social History Tobacco Use Types [...] going through what is going on. Contact [phone] documented in this encounter Plan of Treatment Not on file documented as of this encounter Visit Diagnoses Not on filedocumented in this encounter Additional Health Concerns Assessment Noted Time PHQ-9 Depression Total Score: 2 05/13/20 24 9:24 AM EDT documented as of this encounter Care Teams Tax Compliance Manager Relationship Specialty Start Date End Date Rolanda Thakur MD [address] [place] [address] PCP - General Internal Medicine 09/19/22 documented as of this encounter
--- OUTSIDE RECORDS SUMMARY | 2025-05-10 07:46 | XMS_ITS | Encounter Summary ---
Author Organization [employer] Address [address] [facility] 7 [place] [address] Care Team Providers Care Online Content Editor Name Role Phone Rolanda Thakur MD Primary Care Provider [phone]- [phone] Encounter Details Date Type Department Care Team ([facility] Contact Info) Description 12/02/2024 Telephone [facility] CHC MED & PEDS [address] [place], [place] [phone] Rolanda Thakur MD [address] [place] [address] Social History Tobacco Use Types Packs/Day Years [...] documented as of this encounter Care Teams Online Content Editor Relationship Specialty Start Date End Date Rolanda Thakur MD [address] [place] [id number] PCP - General Internal Medicine 09/19/22 documented as of this encounter
--- OUTSIDE RECORDS SUMMARY | 2025-05-10 07:47 | XMS_ITS | Encounter Summary ---
Author Organization [employer] Address [address] [address] Care Team Providers Care Manager Clinical Pharmacy Name Role Phone Rolanda Thakur MD Primary Care Provider [phone]- [phone] Reason for Visit * Reason Onset Date Comments Nurse Triage 04/17/2025 Encounter Details Date Type Department Care Team ([facility] st Contact Info) Description 04/17/2025 Telephone [facility] MEDICINE [address] [place] [address] Rolanda Thakur MD [address] [place], [place] [phone] Nurse Triage Social History Tobacco Use Types [...] to Angely Pineda to triage below at [phone]. Having urinary frequency and flankpain 10/28. Denies any pelvic pain, N/V, fever or pain. No dark color or odor. Pt states unable to come into office tomorrow due to working until 4:30pm. Pt wants PCP to place UA and cx order to be sent to [facility] labs. Pt advised will send request but also reminded that our [facility] is open on Monday 9a-1p and UA [...] of this encounter Care Teams Manager Clinical Pharmacy Relationship Specialty Start Date End Date Rolanda Thakur MD [address] [place] [address] PCP - General Internal Medicine 09/19/22 documented as of this encounter
--- OUTSIDE RECORDS SUMMARY | 2025-05-10 07:47 | XMS_ITS | Encounter Summary ---
Author Organization [employer] Address [address] [address] Care Team Providers Care Air Surveillance Operator Name Role Phone Rolanda Thakur MD Primary Care Provider [phone]- [phone] Reason for Visit * Reason Onset Date Comments Nurse Triage 04/04/2024 Encounter Details Date Type Department Care Team ([facility] st Contact Info) Description 04/04/2024 Telephone [facility] MEDICINE [address] [place] [address] Rolanda Thakur MD [address] [place], [place] [phone] Nurse Triage Social History Tobacco Use Types [...] pt. She states that she went to [facility] for Anxiety panic attacks on 03/30/24- [...] got treated horribly by the staff at [facility] and she will never go there again. [...] care coordinators so that they can get [facility] notes from 03/30/24 Ed visit into pt. Chart and any labs, EKG's etc.. into pt. Chart for visit on 04/05/24 at 315pm. Protocol Used: Anxiety and Panic Attack (Adult) Protocol-Based Disposition: Go to ED/[facility] Now (or to Office with PCP Approval)- [...] filedocumented in this encounter Care Teams Air Surveillance Operator Relationship Specialty Start Date End Date Rolanda Thakur MD [address] [place] [id number] PCP - General Internal Medicine 09/19/22 documented as of this encounter
--- OUTSIDE RECORDS SUMMARY | 2025-05-10 07:47 | XMS_ITS | Encounter Summary ---
Author Organization [employer] Address [address] [place] [address] Care Team Providers Care Radio Operator Ground Name Role Phone Rolanda Thakur MD Primary Care Provider [phone]- [phone] Reason for Visit * Reason Onset Date Comments Med Refill 03/20/2025 Encounter Details Date Type Department Care Team ([facility] st Contact Info) Description 03/20/[address] [facility] CHC MED & PEDS [address] [place] [address] Rolanda Thakur MD [address] [place] [address] Social History Tobacco Use Types Packs/Day Years [...] as of this encounter Care Teams Radio Operator Ground Relationship Specialty Start Date End Date Rolanda Thakur MD [address] [place] [phone] PCP - General Internal Medicine 09/19/22 documented as of this encounter
--- OUTSIDE RECORDS SUMMARY | 2025-05-10 07:47 | XMS_ITS | Encounter Summary ---
Author Organization [employer] Address [address] [address] Care Team Providers Care Technical Solutions Consultant Name Role Phone Rolanda Thakur MD Primary Care Provider [phone]- [phone] Reason for Visit * Reason Onset Date Comments Call Back Request 10/31/2024 Encounter Details Date Type Department Care Team ([facility] st Contact Info) Description 10/31/2024 Telephone [facility] MEDICINE [address] [place] [address] Rolanda Thakur MD [address] [place], [place] [phone] Call Back Request Social History Tobacco Use [...] to DR. Castañeda. Please contact pt at [phone]. documented in this encounter Plan of Treatment Not on file documented as of this encounter Visit Diagnoses Not on filedocumented in this encounter Additional Health Concerns Assessment Noted Time PHQ-9 Depression Total Score: 2 05/13/20 24 9:24 AM EDT documented as of this encounter Care Teams Technical Solutions Consultant Relationship Specialty Start Date End Date Rolanda Thakur MD [address] [place] [phone] PCP - General Internal Medicine 09/19/22 documented as of this encounter
--- OUTSIDE RECORDS SUMMARY | 2025-05-10 07:47 | XMS_ITS | Encounter Summary ---
Author Organization [employer] Address [address] [place] [address] Care Team Providers Care Gyroscopic Instrument Tester Name Role Phone Rolanda Thakur MD Primary Care Provider +1- [phone] Reason for Visit * Reason Comments Med Refill Encounter Details Date Type Department Care Team ([facility] st Contact Info) Description 03/02/2025 Refill [facility] CHC MED & PEDS [address] [place], [place] [phone] Rolanda Thakur MD [address] [place] [address] Diabetic polyneuropathy associated with type 2 diabetes [...] documented as of this encounter Care Teams Gyroscopic Instrument Tester Relationship Specialty Start Date End Date Rolanda Thakur MD [address] [place] [phone] PCP - General Internal Medicine 09/19/22 documented as of this encounter
--- OUTSIDE RECORDS SUMMARY | 2025-05-10 07:47 | XMS_ITS | Encounter Summary ---
Author Organization [employer] Address [address] [place] [address] 7 [place] [address] Care Team Providers Care Paper Sample Clerk Name Role Phone Rolanda Thakur MD Primary Care Provider [phone]- [phone] Encounter Details Date Type Department Care Team ([facility] Contact Info) Description 04/22/2025 Results Follow-Up [facility] CHC MED & PEDS [address] [place] [address] Migdalia Loza FNP [address] [place] [address] TSH W/Reflex to FT4, Urinalysis, Complete, with Reflex to Culture, Culture, Urine, Routine Social History Tobacco Use Types Packs/Day Years [...] as of this encounter Care Teams Paper Sample Clerk Relationship Specialty Start Date End Date Rolanda Thakur MD [address] [place] [phone] PCP - General Internal Medicine 09/19/22 documented as of this encounter
--- OUTSIDE RECORDS SUMMARY | 2025-05-10 07:47 | XMS_ITS | Encounter Summary ---
Author Organization [employer] Address [address] [place] [address] Care Team Providers Care Head Of Cytogenetics Name Role Phone Rolanda Thakur MD Primary Care Provider +1- [phone] Encounter Details Date Type Department Care Team ([facility] st Contact Info) Description 05/01/2023 Orders Only [facility] MED & PEDS [address] [place] [address] Rolanda Thakur MD [address] [place] [address] Diabetic polyneuropathy associated with type 2 diabetes [...] polyneuropathy associated with type 2 diabetes mellitus ([facility]/HCC) TSH W/REFLEX TO FT4 Routine 05/08/2023 1 1:04 AM EDT Diabetic polyneuropathy associated with type 2 diabetes mellitus ([facility]/HCC) CBC WITH AUTO DIFFERENTIAL Routine 05/08/2023 11:04 AM EDT Diabetic polyneuropathy associated with type 2 diabetes mellitus ([facility]/HCC) HEMOGLOBIN A1C Routine 05/08/2023 11:04 AM EDT Diabetic polyneuropathy associated with type 2 diabetes mellitus ([facility]/HCC) HEPATIC FUNCTION PANEL Routine 05/08/2023 11:04 AM EDT Diabetic polyneuropathy associated with type 2 diabetes mellitus ([facility]/HCC) LIPID PANEL, STANDARD Routine 05/08/2023 11:04 AM EDT Diabetic polyneuropathy associated with type 2 diabetes mellitus ([facility]/HCC) BASIC METABOLIC PANEL Routine 05/08/2023 11:04 AM EDT Diabetic polyneuropathy associated with type 2 diabetes mellitus ([facility]/HCC) documented in this encounter Results * (ABNORMAL) Hemoglobin A1c (05/08/2023 11:04 AM EDT) Hemoglobin A1c 6.1(H) <6.0 % [facility] Comment:Hemoglobin A1C Refer ence Range Adults: 4.8 - 6.0 % Non diabetic: < 6.0 % Goal: < 7.0 %Additional Action Suggested: > 8.0 %Note: Hemoglobin A1c results are invalid for patients with abnormal amounts of HbF. Blood transfusions may impact the HbA1c concentration in the patient sample. Estimated Average Glucose 128 mg/dL [facility] Comment:eAG = Estimated ave rage glucose which is %A1C expressed asaverage glucose, using the formula of the W0M-UnfxltaLhmeyoi Glucose study (ADAG), Diabetes Care, Vol.31,#8,Mar. 2007 Blood Venous blood specimen / Unknown 05/08/2023 11:04 AM EDT 05/08/2023 1:46 PM EDT Rolanda Thakur MD LAB BLOOD ORDERABLES Final Result Performing Organization Address City/[facility]/ZIP Co de Phone Number [facility] [address] [place] [phone] * Vitamin D, 25-Hydroxy, Total, Immunoassay (05/08/2023 11:04 AM EDT) Vitamin D 25-OH Total 84.6 >30 ng/mL [facility] Comment:Health Based Referen ce Values*< 20 ng/mL [id number] ng/mL Insufficient> 30 ng/mL Sufficient*Arabella MCALLISTER. N [...] BLOOD ORDERABLES Final Result Performing Organization Address [facility] Co de Phone Number [facility] [address] [place] [phone] * Hepatic Function Panel (05/08/2023 11:04 AM EDT) Bilirubin, Total 0.5 0.0 - 1.0 mg/dL [facility] Bilirubin, Direct 0.2 0.0 - 0.5 mg/dL [facility] Aspartate Amino Transferase 22 5 - 31 U/L [facility] Alanine Aminotransferase 18 0 - 31 U/L [facility] Total Protein 7.1 6.5 - 8.0 g/dL [facility] Albumin Level 4.4 3.5 - 5.0 g/dL [facility] Alkaline Phosphatase 70 39 - 117 U/L [facility] Blood Venous blood specimen / Unknown 05/08/2023 11:04 AM EDT 05/08/2023 1:47 PM EDT us Rolanda Thakur MD LAB BLOOD ORDERABLES Final Result [facility] [address] [place] [phone] * (ABNORMAL) Lipid Panel, Standard (05/08/2023 11:04 AM EDT) Triglycerides 110 <150 mg/dL [facility] Comment:Desirable Triglyceri de: less than 150 mg/dLBorderline High Triglyceride 150-199 mg/dLHigh Triglyceride: 200-499 mg/dLVery High Triglyceride: greater than or equal to 5OO mg/dL Cholesterol 198 <200 mg/dL [facility] Comment:Desirable Cholestero l: less than 200 mg/dLBorderline High Cholesterol: 200-239 mg/dLHigh Cholesterol: greater than 239 mg/dL LDL Cholesterol Calculated 121(H) <100 mg/dL [facility] Comment:Desirable LDL: less than 100 mg/dLNear Optimal/Above Optimal LDL: 110- 129 mg/dLBorderline High LDL: 130-159 mg/dLHigh LDL: 160-189 mg/dLVery High LDL: greater than or equal to 190 mg/dL HDL Cholesterol 55 >40 mg/dL [facility] Comment:Desirable HDL: great er than 40 mg/dL Note: This HDL assay may give artificially low results in patients with liver disease. Blood Venous blood specimen / Unknown 05/08/2023 11:04 AM EDT 05/08/2023 1:47 PM EDT Rolanda Thakur MD LAB BLOOD ORDERABLES Final Result Performing Organization Address City/[facility]/ZIP Co de Phone Number [facility] [address] [place] [phone] * TSH W/Reflex to FT4 (05/08/2023 11:04 AM EDT) TSH reflex Free T4 0.53 0.32 - 4.0 uIU/mL [facility] Blood 05/08/2023 11:0 4 AM EDT 05/08/2023 1:47 PM EDT us Rolanda Thakur MD LAB BLOOD ORDERABLES Final Result Performing Organization Address [facility] Co de Phone Number [facility] [address] [place] [address] [phone] * (ABNORMAL) Basic Metabolic Panel (05/08/2023 11:04 AM EDT) Sodium 137 135 - 145 mmol/L [facility] Potassium 4.4 3.3 - 5.1 mmol/L [facility] Chloride 108 96 - 108 mmol/L [facility] Carbon Dioxide 24 22 - 29 mmol/L [facility] Anion Gap 9(L) 12 - 20 [facility] Urea Nitrogen (BUN) 14 9 - 16 mg/dL [facility] Creatinine, Serum 1.03 0.5 - 1.4 mg/dL [facility] Estimated Glomerular Filt Rate 53 [facility] Comment:NOTE: For -Am erican individuals, multiply the result by 1.210.Chronic Kidney Disease: Estimated GFR < 60 mL/min/1.74y4Ofhmdt Kidney Disease: Estimated GFR < 15 mL/min/1.73m2 Glucose 208(H) 60 - 115 mg/dL [facility] Calcium 10.1 8.4 - 10.2 mg/dL [facility] Blood Venous blood specimen / Unknown 05/08/2023 11:04 AM EDT 05/08/2023 1:47 PM EDT Rolanda Thakur MD LAB BLOOD ORDERABLES Final Result [facility] [address] [place] [phone] [phone] * (ABNORMAL) CBC auto differential (05/08/2023 11:04 AM EDT) White Blood Count 8.6 4.8 - 10.8 X10*3/uL [facility] Red Blood Count 4.27 4.20 - 5.50 X10*6/uL [facility] Hemoglobin 12.6 12.0 - 16.0 g/dl [facility] Hematocrit 37.9 37.0 - 47.0 % [facility] Mean Corpuscular Volume 88.8 80.0 - 98.0 fL [facility] Mean Corpuscular Hemoglobin 29.5 27.0 - 33.0 pg [facility] Mean Corpuscular HGB Conc 33.2 31.0 - 35.0 g/dl [facility] Red Cell Distribution Width 13.0 11.0 - 16.0 % [facility] Platelet Count 266 160 - 400 X10*3/uL [facility] Mean Platelet Volume 9.5 9.4 - 12.3 fL [facility] Neutrophils Percent Auto 50.3 45 - 73 % [facility] Imm Gran Pct Auto 0.3 0.0 - 0.4 % [facility] Lymphocytes Percent Auto 33.4 20 - 40 % [facility] Monocytes Percent Auto 7.0 2 - 11 % [facility] Eosinophils Percent Auto 7.8(H) 0 - 4 % [facility] Basophils Percent Auto 1.2 0 - 2 % [facility] NRBC Pct Auto 0.0 0.0 - 0.2 /100WBC [facility] Neutrophils Absolute Auto 4.3 2.0 - 8.3 x10*3/uL [facility] Imm Gran Abs Auto 0.03 0.00 - 0.03 X10*3/uL [facility] Lymphocytes Absolute Auto 2.9 1.2 - 4.9 X10*3/uL [facility] Monocytes Absolute Auto 0.6 0.1 - 1.2 X10*3/uL [facility] Eosinophils Absolute Auto 0.7(H) 0.0 - 0.4 X10*3/uL [facility] Basophils Absolute Auto 0.1 0.0 - 0.2 X10*3/uL [facility] NRBC Abs Auto 0.000 0.0 - 0.012 X10*3/uL [facility] Blood Venous blood specimen / Unknown 05/08/2023 11:04 AM EDT 05/08/2023 1:46 PM EDT Rolanda Thakur MD LAB BLOOD ORDERABLES Final Result [facility] [address] [place] [phone] [phone] documented in this encounter Visit Diagnoses Diagnosis Diabetic polyneuropathy associated with type 2 diabetes mellitus (CMS/HCC)- Primary documented in this encounter Care Teams Head Of Cytogenetics Relationship Specialty Start Date End Date Rolanda Thakur MD [address] [place] [phone] PCP - General Internal Medicine 09/19/22 documented as of this encounter
--- OUTSIDE RECORDS SUMMARY | 2025-05-10 07:47 | XMS_ITS | Encounter Summary ---
Author Organization [employer] Address [address] [address] Care Team Providers Care Sheet Pile Driver Operator Name Role Phone Rolanda Thakur MD Primary Care Provider [phone]- [phone] Reason for Visit * Reason Onset Date Comments Results 05/02/2025 Encounter Details Date Type Department Care Team ([facility] Contact Info) Description 05/02/2025 Telephone [facility] MEDICINE [address] [place] [address] Rolanda Thakur MD [address] [place], [place] [phone] Results Social History Tobacco Use Types Packs/Day [...] * Telephone Encounter - Raz Manuel - 05/02/2025 3:38 PM EDT Tc from pt requesting a call back regarding results as well as a IoT Techn[employer] message stating she will be referred to a urologist. Pt expressed frustration due to the fact that she has not received a callfrom a nurse regarding results but is now being referred, she would like to further discuss before the day ends. Please contact pt at [phone]. documented in this encounter Plan of Treatment Not on file documented as of this encounter Visit Diagnoses Not on filedocumented in this encounter Additional Health Concerns Assessment Noted Time PHQ-9 Depression Total Score: 2 05/13/20 24 9:24 AM EDT documented as of this encounter Care Teams Sheet Pile Driver Operator Relationship Specialty Start Date End Date Rolanda Thakur MD [address] [place] [address] PCP - General Internal Medicine 09/19/22 documented as of this encounter
--- OUTSIDE RECORDS SUMMARY | 2025-05-10 07:47 | XMS_ITS | Encounter Summary ---
Author Organization [employer] Address [address] [place] [address] Care Team Providers Care Commission Sales Associate Name Role Phone Rolanda Thakur MD Primary Care Provider +1- [phone] Reason for Visit * Reason Comments Med Refill Encounter Details Date Type Department Care Team ([facility] Contact Info) Description 05/07/2025 Refill [facility] MED & PEDS [address] [place] [address] Rolanda Thakur MD [address] [place] [address] Social History Tobacco Use Types Packs/Day Years [...] documented as of this encounter Care Teams Commission Sales Associate Relationship Specialty Start Date End Date Rolanda Thakur MD [address] [place] [phone] PCP - General Internal Medicine 09/19/22 documented as of this encounter
--- OUTSIDE RECORDS SUMMARY | 2025-05-10 07:47 | XMS_ITS | Encounter Summary ---
Author Organization [employer] Address [address] [place] [address] Care Team Providers Care Director Digital Strategy Name Role Phone Rolanda Thakur MD Primary Care Provider +1- [phone] Reason for Visit * Reason Onset Date Comments Med Refill 05/08/2025 Encounter Details Date Type Department Care Team ([facility] st Contact Info) Description 05/08/2025 Refill [facility] MED & PEDS [address] [place] [address] Rolanda Thakur MD [address] [place] [address] Recent urinary tract infection Social History Tobacco Use Types Packs/Day Years [...] encounter Visit Diagnoses Diagnosis Recent urinary tract infection documented in this encounter Additional Health Concerns Assessment Noted Time PHQ-9 Depression Total Score: 2 05/13/20 24 9:24 AM EDT documented as of this encounter Care Teams Director Digital Strategy Relationship Specialty Start Date End Date Rolanda Thakur MD [address] [place] [phone] PCP - General Internal Medicine 09/19/22 documented as of this encounter
--- OUTSIDE RECORDS SUMMARY | 2025-05-10 07:47 | XMS_ITS | Encounter Summary ---
Author Organization [employer] Address [address] [place] [address] Care Team Providers Care Resident Care Aide Name Role Phone Rolanda Thakur MD Primary Care Provider +1- [phone] Reason for Visit * Reason Onset Date Comments EKG 06/18/2024 Encounter Details Date Type Department Care Team ([facility] Contact Info) Description 06/18/2024 Telephone [facility] MED & PEDS [address] [place] [address] Rolanda Thakur MD [address] [place] [address] EKG Social History Tobacco Use Types Packs/Day [...] 06/20/2024 1:49 PM EDT Please inform Ms Pinead that an office visit note is requested for the referral to be generated. Given pt's symptoms, she would need a [facility] appointment to get the notes for our client relations specialist to process the referral. * Telephone [...] should seek a neurology referral. She states sales technician advised her to get a referral due to procedure done for cataracts might have struck a nerve and that might be were the headaches are coming from. * Telephone Encounter - Annabella ePña - 06/18/2024 4:03 PM EDT Tc from pt requesting status on order for EKG. Contact Paulette at [phone] documented in this encounter Plan of Treatment Not on file documented as of this encounter Visit Diagnoses Not on filedocumented in this encounter Additional Health Concerns Assessment Noted Time PHQ-9 Depression Total Score: 2 05/13/20 24 9:24 AM EDT documented as of this encounter Care Teams Resident Care Aide Relationship Specialty Start Date End Date Rolanda Thakur MD [address] [place] [phone] PCP - General Internal Medicine 09/19/22 documented as of this encounter
--- OUTSIDE RECORDS SUMMARY | 2025-05-10 07:47 | XMS_ITS | Encounter Summary ---
Author Organization [employer] Address [address] [address] Care Team Providers Care Territory Sales Representative Name Role Phone Rolanda Thakur MD Primary Care Provider +1- [phone] Reason for Visit * Reason Onset Date Comments Call Back Request 11/27/2024 Encounter Details Date Type Department Care Team ([facility] st Contact Info) Description 11/27/2024 Telephone [facility] MEDICINE [address] [place] [address] Rolanda Thakur MD [address] [place], [place] [phone] Call Back Request Social History Tobacco Use [...] documented as of this encounter Care Teams Territory Sales Representative Relationship Specialty Start Date End Date Rolanda Thakur MD [address] [place] [phone] PCP - General Internal Medicine 09/19/22 documented as of this encounter
--- OUTSIDE RECORDS SUMMARY | 2025-05-10 07:47 | XMS_ITS | Encounter Summary ---
Author Organization [employer] Address [address] [place] [address] Care Team Providers Care Stage Setting Painter Apprentice Name Role Phone Rolanda Thakur MD Primary Care Provider +1- [phone] Encounter Details Date Type Department Care Team ([facility] Contact Info) Description 05/22/2024 Orders Only [facility] MED & PEDS [address] [place] [address] Rolanda Thakur MD [address] [place] [address] Social History Tobacco Use Types Packs/Day Years [...] documented as of this encounter Care Teams Stage Setting Painter Apprentice Relationship Specialty Start Date End Date Rolanda Thakur MD [address] [place] [phone] PCP - General Internal Medicine 09/19/22 documented as of this encounter
--- OUTSIDE RECORDS SUMMARY | 2025-05-10 07:47 | XMS_ITS | Encounter Summary ---
Author Organization [employer] Address [address] [address] Care Team Providers Care Lead Handler Name Role Phone Rolanda Thakur MD Primary Care Provider +1- [phone] Reason for Visit * Reason Onset Date Comments Nurse Triage 08/05/2024 Encounter Details Date Type Department Care Team ([facility] st Contact Info) Description 08/05/2024 Telephone [facility] MEDICINE [address] [place] [address] Rolanda Thakur MD [address] [place], [place] [phone] Nurse Triage Social History Tobacco Use Types [...] 1145am. Pt is advised to come to [facility] today which is open till 8pm and also open 830am -800pm tomorrow. Pt agrees with this disposition. Pt will try to come to [facility] todaybut, if unable will come [...] as of this encounter Care Teams Lead Handler Relationship Specialty Start Date End Date Rolanda Thakur MD [address] [place] [phone] PCP - General Internal Medicine 09/19/22 documented as of this encounter
--- OUTSIDE RECORDS SUMMARY | 2025-05-10 07:47 | XMS_ITS | Encounter Summary ---
Author Organization [employer] Address [address] [place] [address] Care Team Providers Care Pond Sawyer Name Role Phone Rolanda Thakur MD Primary Care Provider +1- [phone] Reason for Visit * Reason Onset Date Comments Med Refill 02/17/2025 Encounter Details Date Type Department Care Team ([facility] st Contact Info) Description 02/17/2025 Refill [facility] CHC MED & PEDS [address] [place] [address] Rolanda Thakur MD [address] [place] [address] Type 2 diabetes mellitus without complication, without [...] long-term current use of insulin ([facility]) Panic attack Panic disorder without agoraphobia Anxiety Anxiety state, unspecified documented in this encounter Additional Health Concerns Assessment Noted Time PHQ-9 Depression Total Score: 2 05/13/20 24 9:24 AM EDT documented as of this encounter Care Teams Pond Sawyer Relationship Specialty Start Date End Date Rolanda Thakur MD [address] [place] [phone] PCP - General Internal Medicine 09/19/22 documented as of this encounter
--- OUTSIDE RECORDS SUMMARY | 2025-05-10 07:47 | XMS_ITS | Encounter Summary ---
Author Organization [employer] Address [address] [address] Care Team Providers Care Digital Marketing Program Manager Name Role Phone Rolanda Thakur MD Primary Care Provider +1- [phone] Reason for Visit * Reason Onset Date Comments Referral 02/28/2025 Encounter Details Date Type Department Care Team ([facility] st Contact Info) Description 02/28/2025 Telephone [facility] MEDICINE [address] [place] [address] Rolanda Thakur MD [address] [place], [place] [phone] Referral Social History Tobacco Use Types Packs/Day [...] to change location of endocrinology referral: Address: [address] [place] [address] [place] [address] Facility Name: [facility] Type of Specialist: Endocrinology Provider: Dr. Aren Banerjee documented in this encounter Plan of Treatment Not on file documented as of this encounter Visit Diagnoses Not on filedocumented in this encounter Additional Health Concerns Assessment Noted Time PHQ-9 Depression Total Score: 2 05/13/20 24 9:24 AM EDT documented as of this encounter Care Teams Digital Marketing Program Manager Relationship Specialty Start Date End Date Rolanda Thakur MD [address] [place] [phone] PCP - General Internal Medicine 09/19/22 documented as of this encounter
--- OUTSIDE RECORDS SUMMARY | 2025-05-10 07:47 | XMS_ITS | Encounter Summary ---
Author Organization [employer] Address [address] [place] [address] Care Team Providers Care Ict Developer Name Role Phone Rolanda Thakur MD Primary Care Provider [phone]- [phone] Reason for Referral * Consultation (Routine) - Authorized Specialty Diagnoses / Procedures Referred By Contac t Referred To Contact Pharmacy Diagnoses Type 2 diabetes mellitus without complication, without long-term current use of insulin (CMS/HCC) Rolanda Thakur MD [address] [place] [address] Phone: tel: fax: Referral ID Status Reason Start Date Expiration Date Visits Requested Visits Authorized [id number] Authorized Consult and Treat 04/14/2025 04/14/2026 6 6 Encounter Details Date Type Department Care Team (Late st Contact Info) Description 04/14/2025 Orders Only [facility] MED & PEDS [address] [place] [address] Rolanda Thakur MD [address] [place] [address] Type 2 diabetes mellitus without complication, without long-term current use of insulin (CMS/HCC) (Primary Dx); Recent urinary tract infection Social History Tobacco [...] Type Priority Associated Diagnoses Orde r Schedule Urinalysis, Complete, with Reflex to Culture Lab Routine Type 2 diabetes mellitus without complication, without long-term current use of insulin ([facility]) Recent urinary tract infection Expected: 04/18/2025 (Approximate), Expires: 04/18/2026 Scheduled Referrals Name Type Priority Associated Diagnoses Orde r Schedule Referral to Pharmacy CDTM Outpatient Referral Routine Type 2 diabetes mellitus without complication, without long-term current use of insulin (CMS/HCC) Ordered: 04/14/2025 documented as of this encounter Procedures Procedure Name Priority Date/Time Associated Diagnosis Comments URINALYSIS, COMPLETE, WITH REFLEX TO CULTURE Routine 04/30/2025 8:37 AM EDT Type 2 diabetes mellitus without complication, without long-term current use of insulin ([facility]) Recent urinary tract infection documented in this encounter Results * (ABNORMAL) Urinalysis, Complete, with Reflex to Culture (04/30/2025 8:37 AM EDT) Color Urine Dark Yellow [facility] Appearance Urine Clear [facility] PH 6.5 5.0 - 9.0 [facility] Glucose Urine UA Negative Negative mg/dL [facility] Urine Blood Negative Negative [facility] Specific [place] - Urine 1.010 1.005 - 1.025 [facility] Urine Protein Negative Neg-Trace mg/dL [facility] Urine Ketones Negative Negative mg/dL [facility] Nitrite Urine Negative Negative [facility] Leukocyte Esterase Urine Small (1+)(A) Negative [facility] RBC Urine 0-2 0 - 2 /HPF [facility] Urine WBC 0-5 0 - 5 /HPF [facility] Urine Squamous Epithelial Cell 0-2 0 - 2 /HPF [facility] Urine Bacteria None Seen None Seen [facility] Hyaline Casts, Urine 0-2 0 - 2 /LPF [facility] Urine 04/30/2025 8:37 AM EDT 04/30/2025 1:12 PM EDT Narrative [facility] - 04/30/2025 2:16 PM EDT Urine, Clean Catch us Rolanda Thakur MD LAB URINE ORDERABLES Final Result [facility] [address] [place] [address] [phone] documented in this encounter Visit Diagnoses Diagnosis Type 2 diabetes mellitus without complication, without long-term current use of insulin ([facility])- Primary Recent urinary tract infection documented in this encounter Additional Health Concerns Assessment Noted Time PHQ-9 Depression Total Score: 2 05/13/20 24 9:24 AM EDT documented as of this encounter Care Teams Ict Developer Relationship Specialty Start Date End Date Rolanda Thakur MD [address] [place] [phone] PCP - General Internal Medicine 09/19/22 documented as of this encounter
--- OUTSIDE RECORDS SUMMARY | 2025-05-10 07:47 | XMS_ITS | Encounter Summary ---
Author Organization [employer] Address [address] [place] [address] [place] [address] Care Team Providers Care Family Practice Nurse Practitioner Name Role Phone Rolanda Thakur MD Primary Care Provider +1- [phone] Encounter Details Date Type Department Care Team ([facility] Contact Info) Description 04/30/2025 Results Follow-Up [facility] CHC MED & PEDS [address] [place] [address] Rolanda Thakur MD 505 [place] [address] XR Hand 3+ Views Right, XR Hand 3+ Views Left Social History Tobacco Use Types Packs/Day Years [...] as of this encounter Care Teams Family Practice Nurse Practitioner Relationship Specialty Start Date End Date Rolanda Thakur MD [address] [place] [address] PCP - General Internal Medicine 09/19/22 documented as of this encounter
--- OUTSIDE RECORDS SUMMARY | 2025-05-10 07:47 | XMS_ITS | Clinical Summary ---
Author Organization [facility] Address [address] [place] [address] Care Team Providers Care Architectural Examiner Name Role Phone Maren Hough MD Primary Care Provider [phone] Social History Tobacco Use Types Packs/Day Years [...] to complete this topic Insurance [facility] Medicare [facility] Medicare Care Teams Architectural Examiner Relationship Specialty Start Date End Date Maren Hough MD [address] [place] [address] PCP - General Family Medicine 06/20/22
--- OUTSIDE RECORDS SUMMARY | 2025-05-10 07:47 | XMS_ITS | Encounter Summary ---
Author Organization [employer] Address [address] [place] [address] [place] [address] Care Team Providers Care Resource Specialist Teacher Name Role Phone Rolanda Thakur MD Primary Care Provider [phone]- [phone] Encounter Details Date Type Department Care Team ([facility] Contact Info) Description 03/24/2025 Results Follow-Up [facility] CHC MED & PEDS 505 [place] [address] Rolanda Thakur MD 505 [place] [address] [employer] .TB Social History Tobacco Use Types [...] documented as of this encounter Care Teams Resource Specialist Teacher Relationship Specialty Start Date End Date Rolanda Thakur MD [address] [place] [address] PCP - General Internal Medicine 09/19/22 documented as of this encounter
--- OUTSIDE RECORDS SUMMARY | 2025-05-10 07:47 | XMS_ITS | Encounter Summary ---
Author Organization [employer] Address [address] [place] [address] Care Team Providers Care Splicer Helper Name Role Phone Rolanda Thakur MD Primary Care Provider [phone] Encounter Details Date Type Department Care Team ([facility] st Contact Info) Description 05/16/2023 Orders Only [facility] CHC MED & PEDS [address] [place], [place] [phone] Rolanda Thakur MD 505 [place] [address] Bilateral leg paresthesia (Primary Dx); Anxiety; Diabetic [...] Vitamin B6 16.0 2.1 - 21.7 ng/mL [facility] Comment:Vitamin supplementat ion within 24 hours prior toblood draw may affect the accuracy of the results.This test was developed and its analytical performancecharacteristics have been determined by [employer] [place], [place]. It hasnot been cleared or approved by the U.S. Food and DrugAdministration. This assay has been validated pursuantto the CLIA regulations and is used for clinicalpurposes.THIS TEST WAS PERFORMED AT:[facility] [place] [address]CZFUXFN W. MASON,MD,PHD Blood Venous blood specimen / Unknown 10/10/2023 12:50 PM EST 10/10/2023 2:41 PM EST us Rolanda Thakur MD LAB BLOOD ORDERABLES Final Result [facility] [address] [place] [phone] * (ABNORMAL) Vitamin B12 (10/10/2023 12:50 PM EST) Pathologist [facility] Vitamin B12 1,388(H) 200 - 900 pg/mL [facility] Comment:NORMAL 200-900 PG/ML INDETERMINATE 160-199 PG/ML DEFICIENT < 160 PG/ML Blood Venous blood specimen / Unknown 10/10/2023 12:50 PM EST 10/10/2023 2:41 PM EST us Rolanda Thakur MD LAB BLOOD ORDERABLES Final Result Performing Organization Address City/[facility]/ZIP Co de Phone Number [facility] [address] [place] [address] [phone] * TSH W/Reflex to FT4 (10/10/2023 12:50 PM EST) Pathologist [facility] TSH reflex Free T4 0.35 0.32 - 4.0 uIU/mL [facility] Blood 10/10/2023 12:5 0 PM EST 10/10/2023 2:41 PM EST us Rolanda Thakur MD LAB BLOOD ORDERABLES Final Result Performing Organization Address City/[facility]/ZIP Co de Phone Number [facility] [address] [place] [phone] * (ABNORMAL) CBC auto differential (10/10/2023 12:50 PM EST) White Blood Count 8.0 4.8 - 10.8 X10*3/uL [facility] Red Blood Count 4.19(L) 4.20 - 5.50 X10*6/uL [facility] Hemoglobin 12.3 12.0 - 16.0 g/dl [facility] Hematocrit 36.6(L) 37.0 - 47.0 % [facility] Mean Corpuscular Volume 87.4 80.0 - 98.0 fL [facility] Mean Corpuscular Hemoglobin 29.4 27.0 - 33.0 pg [facility] Mean Corpuscular HGB Conc 33.6 31.0 - 35.0 g/dl [facility] Red Cell Distribution Width 12.8 11.0 - 16.0 % [facility] Platelet Count 252 160 - 400 X10*3/uL [facility] Mean Platelet Volume 9.5 9.4 - 12.3 fL [facility] Neutrophils Percent Auto 55.5 45 - 73 % [facility] Imm Gran Pct Auto 0.4 0.0 - 0.4 % [facility] Lymphocytes Percent Auto 31.3 20 - 40 % [facility] Monocytes Percent Auto 6.0 2 - 11 % [facility] Eosinophils Percent Auto 5.9(H) 0 - 4 % [facility] Basophils Percent Auto 0.9 0 - 2 % [facility] NRBC Pct Auto 0.0 0.0 - 0.2 /100WBC [facility] Neutrophils Absolute Auto 4.5 2.0 - 8.3 x10*3/uL [facility] Imm Gran Abs Auto 0.03 0.00 - 0.03 X10*3/uL [facility] Lymphocytes Absolute Auto 2.5 1.2 - 4.9 X10*3/uL [facility] Monocytes Absolute Auto 0.5 0.1 - 1.2 X10*3/uL [facility] Eosinophils Absolute Auto 0.5(H) 0.0 - 0.4 X10*3/uL [facility] Basophils Absolute Auto 0.1 0.0 - 0.2 X10*3/uL [facility] NRBC Abs Auto 0.000 0.0 - 0.012 X10*3/uL [facility] Blood Venous blood specimen / Unknown 10/10/2023 12:50 PM EST 10/10/2023 2:41 PM EST us Rolanda Thakur MD LAB BLOOD ORDERABLES Final Result [facility] [address] [place] [phone] documented in this encounter Visit Diagnoses Diagnosis Bilateral leg paresthesia- Primary Disturbance of skin sensation Anxiety Anxiety state, unspecified Diabetic polyneuropathy associated with type 2 diabetes mellitus ([facility]) documented in this encounter Care Teams Splicer Helper Relationship Specialty Start Date End Date Rolanda Thakur MD [address] [place] [phone] PCP - General Internal Medicine 09/19/22 documented as of this encounter
--- OUTSIDE RECORDS SUMMARY | 2025-05-10 07:47 | XMS_ITS | Clinical Summary ---
Author Organization [address] [facility] Address [address] [place] [address] Phone Care Team Providers Care International Sourcing Manager Name Role Phone Rolanda Thakur MD Primary Care Provider [phone] -[phone] Allergies Active Allergy Reactions Criticality Noted Date [...] aware that this will likely be an [id number] cost and feels as though she can afford it. I will review results and determine need for future follow-up. In the meantime she would like to hold off on statin therapy which I think is totally reasonable. Orders: ECG 12 lead Pure hypercholesterolemia 07/08/2024 Assessment & Plan (07/08/2024 4:42 PM EST): See plan above. Encounters Date Type Department Care Team Description 04/02/2025 Telephone [facility] [address] [place] [address] Nikki Rawls MD from Last [...] Description 06/23/2025 7:40 AM EST Office Visit [facility] - [address] [place] [address] Kadi Palacios NP [address] [place] [address] Health Maintenance Due Date Last Done Comments Diabetes: Annual Foot Exam 1960 Diabetes: Annual Retina Eye Exam 1961 Falls Risk Assessment 07/20/2022 Medicare Annual Wellness Visit 07/20/2022 Social Influencers of Health Screening 07/20/2022 Diabetes: Annual Urine Albumin-Creatinine Ratio (uACR) 10/04/2023 Depression Screening 08/21/2024 Diabetes: Blood Sugar Control Test (HGBA1C) 01/03/2025 07/06/2024 COVID-19 Vaccine ( season) 2025 07/10/2021, 11/04/2020 Influenza Vaccine (#1) 2025 , 06/26/2023, 06/27/2021, [...] year. Mammo Location: [facility], [address] [place] [address], [phone], . -------- FINAL REPORT -------- Dictated By: Peggy Reddy Dictated Date: 12/18/2024 07:51 ET Assigned Physician: Peggy Reddy Reviewed and Electronically Signed By: Peggy Reddy Signed Date: 12/18/2024 07:55 ET Workstation ID: [id number] Transcribed By: Self Edit Transcribed Date: 12/18/2024 [...] year. Mammo Location: [facility], [address] [place] [address], [phone], . -------- FINAL REPORT -------- Dictated By: Peggy Reddy Dictated Date: 12/18/2024 07:51 ET Assigned Physician: Peggy Reddy Reviewed and Electronically Signed By: Peggy Reddy Signed Date: 12/18/2024 07:55 ET Workstation ID: [id number] Transcribed By: Self Edit Transcribed Date: 12/18/2024 07:51 ET us Self Referral Sppl IMG BI PROCEDURES Final Resul t * MOHAMUD DEXA AXIAL SKELETON (04/12/2023 7:46 AM EDT) Anatomical Region Laterality Modality Mammography 04/11/2023 3:03 PM EDT Narrative 04/12/2023 7:46 AM EDT [facility] Diagnostic Imaging Department [address] [place] [address] Patient: ADANGELY YARA /Age/Sex: 1950 - 72 - F Unit#: [id number] Location/Status: SPDIMAM/REG CLI Mnemonic/Ordering Site: MAMDEXAAX/SPMAM Ordering Physician: MAREN HOUGH MD Mohamud Dexa Axial Skeleton - 04/11/23 - 1535 Report Status:Signed HISTORY: The patient is a [...] probability of hip fracture of 2.2%. Code 45211 Dictating Physician: GWENDOLYN BAHENA MD Electronically Signed by: GWENDOLYN BAHENA MD Dic Date/Time: 04/12/23 0745 Sign date/Time: 04/12/23 0746 Procedure Note Gwendolyn Bahena MD - 09/26/2023 [facility] Diagnostic Imaging Department [address] [place] [address] Patient: ANGELY PINEDA YARA /Age/Sex: 1950 - 72 - F Unit#: [id number] Location/Status: SPDIMAM/REG CLI Mnemonic[facility] Ordering Physician: MAREN HOUGH MD [facility] Dexa Axial Skeleton - 04/11/23 - 2845 Report Status:Signed HISTORY: The patient is a [...] density of the femurs bilaterally is 0.874 gm/do0zyahn is 87% of that of young normals [...] probability of hip fracture of 2.2%. Code 39816 Dictating Physician: GWENDOLYN BAHENA MD Electronically Signed by: GWENDOLYN BAHENA MD Dic Date/Time: 04/12/23744 Sign date/Time: 04/12/23745 Maren Hough MD IMG BI PROCEDURES Final Result from Last 3 Months or Most Recently Relevant to Health Maintenance Insurance [employer] MEDICARE Care Teams International Sourcing Manager Relationship Specialty Start Date End Date Rolanda Thakur MD [address] [place], [place] PCP - General 11/03/23
--- OUTSIDE RECORDS SUMMARY | 2025-05-10 07:47 | XMS_ITS | Encounter Summary ---
Author Organization [employer] Address [address] [place] [address] 7 [place] [address] Care Team Providers Care Steam Box Operator Name Role Phone Rolanda Thakur MD Primary Care Provider [phone]- [phone] Encounter Details Date Type Department Care Team ([facility] st Contact Info) Description 05/01/2025 Orders Only [facility] CHC MED & PEDS [address] [place] [address] Rolanda Thakur MD [address] [place] [address] Recent urinary tract infection (Primary Dx) Social [...] Microbiology Routine Recent urinary tract infection Expected: 05/09/2025 (Approximate), Expires: 05/09/2026 documented as of this encounter Visit Diagnoses Diagnosis Recent urinary tract infection- Primary documented in this encounter Additional Health Concerns Assessment Noted Time PHQ-9 Depression Total Score: 2 05/13/20 24 9:24 AM EDT documented as of this encounter Care Teams Steam Box Operator Relationship Specialty Start Date End Date Rolanda Thakur MD [address] [place] [address] PCP - General Internal Medicine 09/19/22 documented as of this encounter
--- OUTSIDE RECORDS SUMMARY | 2025-05-10 07:47 | XMS_ITS | Encounter Summary ---
Author Organization [employer] Address [address] [facility] [address] 7[address] [place] [address] Care Team Providers Care Sole Dyer Name Role Phone Rolanda Thakur MD Primary Care Provider [phone]- [phone] Encounter Details Date Type Department Care Team ([facility] st Contact Info) Description 05/07/2025 Telephone [facility] MEDICINE [address] [place] [address] Rolanda Thakur MD 505 [place] [address] Social History Tobacco Use Types Packs/Day Years [...] * Telephone Encounter - Harleen Manuel - 05/07/2025 1:36 PM EDT Pharmacy [facility] attempted outreach call on 05/07/25 for CDTM - Diabetes appointment; however, unable to reach patient. LVM for patient to contact Harleen Manuel at [phone]. documented in this encounter Plan of Treatment Not on file documented as of this encounter Visit Diagnoses Not on filedocumented in this encounter Additional Health Concerns Assessment Noted Time PHQ-9 Depression Total Score: 2 05/13/20 24 9:24 AM EDT documented as of this encounter Care Teams Sole Dyer Relationship Specialty Start Date End Date Rolanda Thakur MD [address] [place] [address] PCP - General Internal Medicine 09/19/22 documented as of this encounter
--- OUTSIDE RECORDS SUMMARY | 2025-05-10 07:47 | XMS_ITS | Encounter Summary ---
Author Organization [employer] Address [address] [address] Care Team Providers Care Operations Research Scientist Name Role Phone Rolanda Thakur MD Primary Care Provider [phone]- [phone] Reason for Visit * Reason Onset Date Comments call back / orders 04/22/2025 Encounter Details Date Type Department Care Team ([facility] st Contact Info) Description 04/22/2025 Telephone [facility] MEDICINE [address] [place] [address] Rolanda Thakur MD 505 [place], [place] [phone] call back / orders Social History Tobacco Use Types Packs/Day Years [...] encounter Miscellaneous Notes * Telephone Encounter - Isabela Lovell - 04/22/2025 8:37 AM EDT Tc from pt requesting a call in back in regard of message send by pt Contact pt at [phone] documented in this encounter Plan of Treatment Not on file documented as of this encounter Visit Diagnoses Not on filedocumented in this encounter Additional Health Concerns Assessment Noted Time PHQ-9 Depression Total Score: 2 05/13/20 24 9:24 AM EDT documented as of this encounter Care Teams Operations Research Scientist Relationship Specialty Start Date End Date Rolanda Thakur MD [address] [place] [address] PCP - General Internal Medicine 09/19/22 documented as of this encounter
--- OUTSIDE RECORDS SUMMARY | 2025-05-10 07:47 | XMS_ITS | Encounter Summary ---
Author Organization [employer] Address [address] [place] [address] Care Team Providers Care Risk Management Internship Name Role Phone Rolanda Thakur MD Primary Care Provider [phone]- [phone] Reason for Referral * Consultation (Routine) - Closed Specialty Diagnoses / Procedures Referred By Freddy t Referred To Contact Chiropractic Medicine Diagnoses Chronic left-sided low back pain with left-sided sciatica Rolanda Thakur MD [address] [place] [address] Phone: tel: fax: Family Chiropractic fax: Referral ID Status Reason Start Date Expiration Date V isits Requested Visits Authorized [id number] Closed Specialty Services Required 08/08/2024 08/08/2025 1 1 * Consultation (Routine) - Closed Specialty Diagnoses / Procedures Referred By Freddy t Referred To Contact Physical Therapy Diagnoses Chronic left-sided low back pain with left-sided sciatica Rolanda Thakur MD [address] [place] [address] Phone: tel: fax: [facility] Physical Therapy [address] [place] [address] Phone: tel: fax: Referral ID Status Reason Start Date Expiration Date V isits Requested Visits Authorized [id number] Closed Specialty Services Required 08/05/2024 08/05/2025 1 1 * Consultation (Routine) - Closed Specialty Diagnoses / Procedures Referred By Freddy meadows Referred To Contact Chiropractic Medicine Diagnoses Chronic left-sided low back pain with left-sided sciatica Rolanda Thakur MD [address] [place] [address] Phone: tel: fax: Referral ID Status Reason Start Date Expiration Date V isits Requested Visits Authorized [id number] Closed Specialty Services Required 08/02/2024 08/02/2025 1 1 Encounter Details Date Type Department Care Team ([facility] st Contact Info) Description 08/02/2024 Orders Only [facility] CHC MED & PEDS [address] [place] [address] Rolanda Thakur MD [address] [place] [address] Chronic left-sided low back pain with left-sided [...] AM EST Narrative 09/02/2024 11:24 AM EST [facility] Primary Care [address] [facility] [place] [address] XRay Report Signed Patient: Angely Pineda MR#: [id number] : 1950 Acct:[id number] Age/Sex: 74 / F ADM Date: 08/12/24 Loc: HO.HMGCX Attending Dr: Wyatt Golden MD Ordering Physician: Wyatt Golden MD Date of Service: 08/12/24 Procedure(s): XR cervical spine 5V Accession Number(s): [id number] cc: Rolanda Thakur MD; Wyatt Golden MD [...] 09/02/24 1121 DD/ 0950 TD/TT: 08/12/24 1000 Special Forces Specialist: Procedure Note Donotuseinterpreter, Image - 09/02/2024 [facility] Adult Primary Care [facility] [place] [address] XRay Report Signed Patient: Erma Pineda#: [id number] : 1950cct:[id number] Age/Sex: 74 / FADM Date: 08/12/24 Loc: HO.HMGCX Attending Dr: Wyatt Golden MD Ordering Physician: Wyatt Golden MD Date of Service: 08/12/24 Procedure(s): XR cervical spine 5V Accession Number(s): [id number] cc: Rolanda Thakur MD; Wyatt Golden MD [...] by: Yuridia Becerra MD 09/02/2024 11:21 AM [facility] Dictated By: Yuridia Becerra MD Signed By: <Electronically signed by Yuridia Becerra MD in OV> 09/02/24 1121 DD/ 0950 TD/TT: 08/12/24 1000 Special Forces Specialist: Wyatt Mcdonald MD IMG XR PROCEDURES Iftikhar mecca Result - Final documented in this encounter Visit Diagnoses Diagnosis Chronic left-sided low back pain with left-sided sciatica- Primary documented in this encounter Additional Health Concerns Assessment Noted Time PHQ-9 Depression Total Score: 2 05/13/20 24 9:24 AM EDT documented as of this encounter Care Teams Risk Management Internship Relationship Specialty Start Date End Date Rolanda Thakur MD [address] [place] [address] PCP - General Internal Medicine 09/19/22 documented as of this encounter
--- OUTSIDE RECORDS SUMMARY | 2025-05-10 07:47 | XMS_ITS | Encounter Summary ---
Author Organization [employer] Address [address] [address] Care Team Providers Care Ripsawyer Name Role Phone Rolanda Thakur MD Primary Care Provider [phone]- [phone] Reason for Visit * Reason Comments Med Refill Encounter Details Date Type Department Care Team ([facility] st Contact Info) Description 02/05/2025 Refill [facility] MEDICINE [address] [place] [address] Rolanda Thakur MD [address] [place], [place] [phone] Acquired hypothyroidism Social History Tobacco Use Types [...] her Thyroid Medication. Pt states her diabetic county sheriff changed the dosage to 1.12. documented in this encounter Plan of Treatment Not on file documented as of this encounter Visit Diagnoses Diagnosis Acquired hypothyroidism Unspecified hypothyroidism documented in this encounter Additional Health Concerns Assessment Noted Time PHQ-9 Depression Total Score: 2 05/13/20 24 9:24 AM EDT documented as of this encounter Care Teams Ripsawyer Relationship Specialty Start Date End Date Rolanda Thakur MD [address] [place] [address] PCP - General Internal Medicine 09/19/22 documented as of this encounter
--- OUTSIDE RECORDS SUMMARY | 2025-05-10 07:47 | XMS_ITS | Encounter Summary ---
Author Organization [employer] Address [address] [place] [address] Care Team Providers Care Multimedia Editor Name Role Phone Rolanda Thakur MD Primary Care Provider [phone]- [phone] Reason for Referral * Consultation (Routine) - Authorized Specialty Diagnoses / Procedures Referred By Contac t Referred To Contact Endocrinology Diagnoses Type 2 diabetes mellitus without complication, without long-term current use of insulin (CMS/HCC) Benign essential hypertension Rolanda Thakur MD [address] [place] [address] Phone: tel: fax: [facility] [address] , [address] [place] [address] Phone: tel: fax: Referral ID Status Reason Start Date Expiration Date Visits Requested Visits Authorized [id number] Authorized Specialty Services Required 11/07/2024 11/07/2025 1 1 Encounter Details Date Type Department Care Team (Late st Contact Info) Description 11/07/2024 Orders Only [facility] MEDICINE [address] [place] [address] Rolanda Thakur MD [address] [place] [address] Type 2 diabetes mellitus without complication, without [...] documented as of this encounter Care Teams Multimedia Editor Relationship Specialty Start Date End Date Rolanda Thakur MD [address] [place] [address] PCP - General Internal Medicine 09/19/22 documented as of this encounter
--- OUTSIDE RECORDS SUMMARY | 2025-05-10 07:47 | XMS_ITS | Clinical Summary ---
Author Organization [facility] Address [address] [place], [place] [id number] Care Team Providers Care Credit Portfolio Manager Name Role Phone Rahel Hough MD Primary Care Provider [phone] Allergies Active Allergy Reactions Criticality Noted Date [...] mg by mouth daily. 0 09/09/2020 Active [place]-3 Fatty Acids (FISH OIL) 1000 MG CAPS [...] age to complete this topic Care Teams Credit Portfolio Manager Relationship Specialty Start Date End Date Rahel Hough MD [address] [facility] [place] [address] PCP - General Internal Medicine 11/20/20
--- OUTSIDE RECORDS SUMMARY | 2025-05-10 07:47 | XMS_ITS | Encounter Summary ---
Author Organization [employer] Address [address] [place] [address] Care Team Providers Care Cps Team Lead Name Role Phone Rolanda Thakur MD Primary Care Provider +1- [phone] Reason for Visit * Reason Onset Date Comments Referral 05/18/2023 Encounter Details Date Type Department Care Team ([facility] st Contact Info) Description 05/18/2023 Telephone [facility] CHC MED & PEDS [address] [place] [address] Rolanda Thakur MD 505 [place] [address] Referral Social History Tobacco Use Types Packs/Day [...] used to see Dr. Chad Dempsey from [facility] butnow the office doesn't take her [...] advise. Also sent you her response from [employer]. Thanks. * Telephone Encounter - Annabella Peña [...] to Specialty: (EMG) Dr nolasco Date&Time: N/a Hadoop Application Developer: n/a Please call pt to clarify documented in this encounter Plan of Treatment Not on file documented as of this encounter Visit Diagnoses Not on filedocumented in this encounter Care Teams Cps Team Lead Relationship Specialty Start Date End Date Rolanda Thakur MD [address] [place] [address] PCP - General Internal Medicine 09/19/22 documented as of this encounter
--- OUTSIDE RECORDS SUMMARY | 2025-05-10 07:47 | XMS_ITS | Encounter Summary ---
Author Organization [employer] Address [address] [facility] 7 [place] [address] Care Team Providers Care Vacation Sales Advisor Name Role Phone Rolanda Thakur MD Primary Care Provider +1 [phone] Encounter Details Date Type Department Care Team ([facility] Contact Info) Description 02/05/2025 Orders Only [facility] CHC MED & PEDS 505 [place], [place] [phone] Rolanda Thakur MD 505 [place] [address] Acquired hypothyroidism Social History Tobacco Use Types [...] documented as of this encounter Care Teams Vacation Sales Advisor Relationship Specialty Start Date End Date Rolanda Thakur MD [address] [place] [address] PCP - General Internal Medicine 09/19/22 documented as of this encounter
--- OUTSIDE RECORDS SUMMARY | 2025-05-10 07:47 | XMS_ITS | Encounter Summary ---
Author Organization [employer] Address [address] [place] [address] Care Team Providers Care Food Service Employee Name Role Phone Rolanda Thakur MD Primary Care Provider +1- [phone] Reason for Visit * Reason Onset Date Comments Med Refill 04/16/2025 Encounter Details Date Type Department Care Team ([facility] st Contact Info) Description 04/16/2025 Refill [facility] CHC MED & PEDS 505 [place] [address] Rolanda Thakur MD 505 [place] [address] Acquired hypothyroidism Social History Tobacco Use Types [...] as of this encounter Care Teams Food Service Employee Relationship Specialty Start Date End Date Rolanda Thakur MD [address] [place] [address] PCP - General Internal Medicine 09/19/22 documented as of this encounter
--- OUTSIDE RECORDS SUMMARY | 2025-05-10 07:47 | XMS_ITS | Encounter Summary ---
Author Organization [employer] Address [address] [place] [address] Care Team Providers Care Ship Fitter Name Role Phone Rolanda Thakur MD Primary Care Provider +1- [phone] Reason for Visit * Reason Onset Date Comments Med Refill 04/17/2025 Encounter Details Date Type Department Care Team ([facility] st Contact Info) Description 04/17/2025 Telephone [facility] CHC MED & PEDS 505 [place] [address] Rolanda Thakur MD 505 [place] [address] Med Refill Social History Tobacco Use Types [...] 125 MCG tablet To be sent to: [id number] [place] - [address] [facility] AT SEC OF [facility] & [facility] Pt has no more medication and needs [...] documented as of this encounter Care Teams Ship Fitter Relationship Specialty Start Date End Date Rolanda Thakur MD [address] [place] [address] [place] [address] PCP - General Internal Medicine 09/19/22 documented as of this encounter
--- OUTSIDE RECORDS SUMMARY | 2025-05-10 07:47 | XMS_ITS | Encounter Summary ---
Author Organization [employer] Address [address] [place] [address] 7 [place] [address] Care Team Providers Care Transit Vehicle Inspector Name Role Phone Rolanda Thakur MD Primary Care Provider +1 [phone] Encounter Details Date Type Department Care Team ([facility] st Contact Info) Description 06/21/2023 Abstract [facility] [address] [place] [address] Sherrie Caballero Social History Tobacco Use Types [...] on filedocumented in this encounter Care Teams Transit Vehicle Inspector Relationship Specialty Start Date End Date Rolanda Thakur MD [address] [place] [address] PCP - General Internal Medicine 09/19/22 documented as of this encounter
--- OUTSIDE RECORDS SUMMARY | 2025-05-10 07:47 | XMS_ITS | Encounter Summary ---
Author Organization [employer] Address [address] [place] [address] 7 [place] [address] Care Team Providers Care Manufacturing Lead Name Role Phone Rolanda Thakur MD Primary Care Provider +1- [phone] Reason for Visit * Reason Comments Med Refill Encounter Details Date Type Department Care Team ([facility] st Contact Info) Description 12/28/[address] [facility] CHC MED & PEDS 505 [place] [address] Maren Hough MD 505 [place] [address] Type 2 diabetes mellitus without complication, without long-term current use of insulin ([facility]); Anxiety Social History Tobacco Use Types Packs/Day [...] complication, without long-term current use of insulin ([facility]) Anxiety Anxiety state, unspecified documented in this encounter Care Teams Manufacturing Lead Relationship Specialty Start Date End Date Rolanda Thakur MD [address] [place] [address] PCP - General Internal Medicine 09/19/22 documented as of this encounter
--- OUTSIDE RECORDS SUMMARY | 2025-05-10 07:47 | XMS_ITS | Encounter Summary ---
Author Organization [employer] Address [address] [place] [address] Care Team Providers Care Berry Picker Machine Operator Name Role Phone Rolanda Thakur MD Primary Care Provider [phone] Reason for Referral * Imaging (Routine) - Closed Specialty Diagnoses / Procedures Referred By Contac t Referred To Contact Radiology Diagnoses Hyponatremia Decreased GFR Procedures US RENAL BI Rolanda Thakur MD 505 [place] [address] Phone: tel: fax: [address] Phone: tel: fax: Referral ID Status Reason Start Date Expiration Date Visits Re quested Visits Authorized [id number] Closed 07/18/2024 07/18/2025 1 0 Encounter Details Date Type Department Care Team (Late st Contact Info) Description 07/09/2024 Orders Only [facility] CHC MED & PEDS 505 [place], [place] [phone] Rolanda Thakur MD 505 [place], [place] [phone] Hyponatremia (Primary Dx); Decreased GFR Social History [...] EDT) Sodium 133(L) 135 - 145 mmol/L [facility] Potassium 4.9 3.3 - 5.1 mmol/L [facility] Chloride 104 96 - 108 mmol/L [facility] Carbon Dioxide 23 22 - 29 mmol/L [facility] Anion Gap 11(L) 12 - 20 [facility] Urea Nitrogen (BUN) 15 9 - 16 mg/dL [facility] Creatinine, Serum 0.82 0.5 - 1.4 mg/dL [facility] Estimated Glomerular Filt Rate >60 [facility] Comment:Chronic Kidney Disea se: Estimated GFR < 60 mL/min/1.19x4Gipwyt Kidney Disease: Estimated GFR < 15 mL/min/1.73m2 Glucose 177(H) 60 - 115 mg/dL [facility] Calcium 9.5 8.4 - 10.2 mg/dL [facility] Blood Venous blood specimen / Unknown 02/05/2025 12:22 PM EDT 02/05/2025 1:20 PM EDT Rolanda Thakur MD LAB BLOOD ORDERABLES Final Result [facility] [address] [place] [address] [phone] documented in this encounter Visit Diagnoses Diagnosis Hyponatremia- Primary Hyposmolality and/or hyponatremia Decreased GFR documented in this encounter Additional Health Concerns Assessment Noted Time PHQ-9 Depression Total Score: 2 05/13/20 24 9:24 AM EDT documented as of this encounter Care Teams Berry Picker Machine Operator Relationship Specialty Start Date End Date Rolanda Thakur MD [address] [place] [address] PCP - General Internal Medicine 09/19/22 documented as of this encounter
--- OUTSIDE RECORDS SUMMARY | 2025-05-10 07:47 | XMS_ITS | Encounter Summary ---
Author Organization [employer] Address [address] [place] [address] Care Team Providers Care Vulcanized Fiber Unit Operator Name Role Phone Rolanda Thakur MD Primary Care Provider +1- [phone] Reason for Visit * Reason Onset Date Comments Med Refill 03/22/2025 Encounter Details Date Type Department Care Team ([facility] st Contact Info) Description 03/22/2025 Refill [facility] CHC MED & PEDS 505 [place] [address] Rolanda Thakur MD 505 [place] [address] Social History Tobacco Use Types Packs/Day Years [...] documented as of this encounter Care Teams Vulcanized Fiber Unit Operator Relationship Specialty Start Date End Date Rolanda Thakur MD [address] [place] [address] PCP - General Internal Medicine 09/19/22 documented as of this encounter
--- OUTSIDE RECORDS SUMMARY | 2025-05-10 07:47 | XMS_ITS | Encounter Summary ---
Author Organization [employer] Address [address] [place] [address] Care Team Providers Care Museum Archivist Name Role Phone Rolanda Thakur MD Primary Care Provider +1- [phone] Reason for Visit * Reason Comments Med Refill Encounter Details Date Type Department Care Team ([facility] st Contact Info) Description 05/20/2024 Refill [facility] CHC MED & PEDS 505 [place] [address] Rolanda Thakur MD 505 [place] [address] Diabetic polyneuropathy associated with type 2 diabetes mellitus ([facility]) Social History Tobacco Use Types Packs/Day Years [...] with type 2 diabetes mellitus ([facility]) documented in this encounter Additional Health Concerns Assessment Noted Time PHQ-9 Depression Total Score: 2 05/13/20 24 9:24 AM EDT documented as of this encounter Care Teams Museum Archivist Relationship Specialty Start Date End Date Rolanda Thakur MD [address] [place] [phone] PCP - General Internal Medicine 09/19/22 documented as of this encounter
--- OUTSIDE RECORDS SUMMARY | 2025-05-10 07:47 | XMS_ITS | Encounter Summary ---
Author Organization [employer] Address [address] [place] [address] 7 [place] [address] Care Team Providers Care Sales Support Technician Name Role Phone Rolanda Thakur MD Primary Care Provider +1 [phone] Encounter Details Date Type Department Care Team ([facility] Contact Info) Description 04/18/2025 Orders Only [facility] CHC MED & PEDS 505 [place], [place] [phone] Migdalia Loza FNP 505 [place] [address] Acquired hypothyroidism (Primary Dx); UTI symptoms; Type 2 diabetes mellitus without complication, without long-term current use of insulin ([facility]) Social History Tobacco Use [...] URINALYSIS, COMPLETE, WITH REFLEX TO CULTURE Routine 04/18/2025 8:39 AM EDT UTI symptoms TSH W/REFLEX TO FT4 Routine 04/18/2025 8:31 AM EDT Acquired hypothyroidism CULTURE, URINE, ROUTINE Routine 04/18/2025 12:00 AM EDT Acquired hypothyroidism documented in this encounter Results * (ABNORMAL) Urinalysis, Complete, with Reflex to Culture (04/18/2025 8:39 AM EDT) Color Urine Yellow [facility] Appearance Urine Clear [facility] PH 6.0 5.0 - 9.0 [facility] Glucose Urine UA Negative Negative mg/dL [facility] Urine Blood Negative Negative [facility] Specific [place] - Urine 1.010 1.005 - 1.025 [facility] Urine Protein Negative Neg-Trace mg/dL [facility] Urine Ketones Negative Negative mg/dL [facility] Nitrite Urine Negative Negative [facility] Leukocyte Esterase Urine Small (1+)(A) Negative [facility] RBC Urine 0-2 0 - 2 /HPF [facility] Urine WBC 0-5 0 - 5 /HPF [facility] Urine Squamous Epithelial Cell 0-2 0 - 2 /HPF [facility] Urine Bacteria None Seen None Seen [facility] Hyaline Casts, Urine 0-2 0 - 2 /LPF [facility] Urine 04/18/2025 8:39 AM EDT 04/18/2025 2:25 PM EDT Narrative [facility] - 04/18/2025 4:11 PM EDT [id number], Clean Catch Migdalia Loza HEAD HOUSEKEEPER LAB URINE ORDERABLES Final Res ult Performing Organization Address City/[facility]/ZIP Co de Phone Number [facility] [address] [place] [phone] * TSH W/Reflex to FT4 (04/18/2025 8:31 AM EDT) TSH reflex Free T4 1.59 0.32 - 4.0 uIU/mL [facility] Blood Venous blood specimen / Unknown 04/18/2025 8:31 AM EDT 04/18/2025 2:28 PM EDT Migdalia Loza HEAD HOUSEKEEPER LAB BLOOD ORDERABLES Final Res ult Performing Organization Address City/[facility]/ZIP Co de Phone Number [facility] [address] [place] [phone] * Culture, Urine, Routine (04/18/2025 12:00 AM EDT) Urine Urine specimen obtained by clean catch procedure / Unknown 04/18/2025 04/18/2025 Comment:[facility] Narrative [facility] - 04/20/2025 9:46 AM EDT Urine Culture Report Result Urine Culture > 100,000 cfu/ml Urine Culture Mixed bacterial hailey characteristic of Urine Culture urogenital contamination. Specimen Source: Urine clean catch Migdalia Loza HEAD HOUSEKEEPER LAB MICROBIOLOGY - GENERAL ORD ERABLES Final Result [facility] [address] [place] [address] [phone] documented in this encounter Visit Diagnoses Diagnosis Acquired hypothyroidism- Primary Unspecified hypothyroidism UTI symptoms Type 2 diabetes mellitus without complication, without long-term current use of insulin ([facility]) documented in this encounter Additional Health Concerns Assessment Noted Time PHQ-9 Depression Total Score: 2 05/13/20 24 9:24 AM EDT documented as of this encounter Care Teams Sales Support Technician Relationship Specialty Start Date End Date Rolanda Thakur MD [address] [place] [address] PCP - General Internal Medicine 09/19/22 documented as of this encounter
--- OUTSIDE RECORDS SUMMARY | 2025-05-10 07:47 | XMS_ITS | Encounter Summary ---
Author Organization [employer] Address [address] [place] [address] 7 [place] [address] Care Team Providers Care Color Developer Name Role Phone Rolanda Thakur MD Primary Care Provider +1 [phone] Encounter Details Date Type Department Care Team ([facility] st Contact Info) Description 11/20/2024 Orders Only [facility] CHC MED & PEDS [address] [place] [address] Rolanda Thakur MD 505 [place] [address] Type 2 diabetes mellitus without complication, without long-term current use of insulin ([facility]) (Primary Dx); UTI symptoms Social History [...] complication, without long-term current use of insulin ([facility]) UTI symptoms CBC WITH AUTO DIFFERENTIAL Routine 11/23/2024 9:00 AM EDT Type 2 diabetes mellitus without complication, without long-term current use of insulin ([facility]) BASIC METABOLIC PANEL Routine 11/23/2024 9:00 AM EDT Type 2 diabetes mellitus without complication, without long-term current use of insulin ([facility]) documented in this encounter Results * Culture, Urine, Routine (11/23/2024 9:05 AM EDT) Urine Urine specimen obtained by clean catch procedure / Unknown 11/23/2024 9:05 AM EDT 11/23/2024 11:26 AM EDT Comment:[facility] - 11/24/2024 11:22 AM EDT Urine Culture Report Result Urine Culture 10,000 to 50,000 cfu/ml Urine Culture Mixed bacterial hailey characteristic of Urine Culture urogenital contamination. Specimen Source: Urine clean catch us Rolanda Thakur MD LAB MICROBIOLOGY - GENERAL ORDERABLES Final Result [facility] [address] [place] [address] [phone] * (ABNORMAL) CBC auto differential (11/23/2024 9:00 AM EDT) White Blood Count 8.5 4.8 - 10.8 X10*3/uL [facility] Red Blood Count 4.27 4.20 - 5.50 X10*6/uL [facility] Hemoglobin 12.8 12.0 - 16.0 g/dl [facility] Hematocrit 37.0 37.0 - 47.0 % [facility] Mean Corpuscular Volume 86.7 80.0 - 98.0 fL [facility] Mean Corpuscular Hemoglobin 30.0 27.0 - 33.0 pg [facility] Mean Corpuscular HGB Conc 34.6 31.0 - 35.0 g/dl [facility] Red Cell Distribution Width 13.1 11.0 - 16.0 % [facility] Platelet Count 269 160 - 400 X10*3/uL [facility] Mean Platelet Volume 9.1(L) 9.4 - 12.3 fL [facility] Neutrophils Percent Auto 64.4 45 - 73 % [facility] Imm Gran Pct Auto 0.4 0.0 - 0.4 % [facility] Lymphocytes Percent Auto 23.8 20 - 40 % [facility] Monocytes Percent Auto 5.9 2 - 11 % [facility] Eosinophils Percent Auto 4.7(H) 0 - 4 % [facility] Basophils Percent Auto 0.8 0 - 2 % [facility] NRBC Pct Auto 0.0 0.0 - 0.2 /100WBC [facility] Neutrophils Absolute Auto 5.4 2.0 - 8.3 x10*3/uL [facility] Imm Gran Abs Auto 0.03 0.00 - 0.03 X10*3/uL [facility] Lymphocytes Absolute Auto 2.0 1.2 - 4.9 X10*3/uL [facility] Monocytes Absolute Auto 0.5 0.1 - 1.2 X10*3/uL [facility] Eosinophils Absolute Auto 0.4 0.0 - 0.4 X10*3/uL [facility] Basophils Absolute Auto 0.1 0.0 - 0.2 X10*3/uL [facility] NRBC Abs Auto 0.000 0.0 - 0.012 X10*3/uL [facility] Blood Venous blood specimen / Unknown 11/23/2024 9:00 AM EDT 11/23/2024 11:37 AM EDT us Rolanda Thakur MD LAB BLOOD ORDERABLES Final Result [facility] [address] [place] [phone] * (ABNORMAL) Basic Metabolic Panel (11/23/2024 9:00 AM EDT) Sodium 135 135 - 145 mmol/L [facility] Potassium 4.4 3.3 - 5.1 mmol/L [facility] Chloride 103 96 - 108 mmol/L [facility] Carbon Dioxide 24 22 - 29 mmol/L [facility] Anion Gap 12 12 - 20 [facility] Urea Nitrogen (BUN) 21(H) 9 - 16 mg/dL [facility] Creatinine, Serum 0.89 0.5 - 1.4 mg/dL [facility] Estimated Glomerular Filt Rate >60 [facility] Comment:Chronic Kidney Disea se: Estimated GFR < 60 mL/min/1.03e1Odkxee Kidney Disease: Estimated GFR < 15 mL/min/1.73m2 Glucose 161(H) 60 - 115 mg/dL [facility] Calcium 10.2 8.4 - 10.2 mg/dL [facility] Blood Venous blood specimen / Unknown 11/23/2024 9:00 AM EDT 11/23/2024 11:37 AM EDT Rolanda Thakur MD LAB BLOOD ORDERABLES Final Result [facility] [address] [place] [address] [phone] documented in this encounter Visit Diagnoses Diagnosis Type 2 diabetes mellitus without complication, without long-term current use of insulin ([facility])- Primary UTI symptoms documented in this encounter Additional Health Concerns Assessment Noted Time PHQ-9 Depression Total Score: 2 05/13/20 24 9:24 AM EDT documented as of this encounter Care Teams Color Developer Relationship Specialty Start Date End Date Rolanda Thakur MD [address] [place] [phone] PCP - General Internal Medicine 09/19/22 documented as of this encounter
--- OUTSIDE RECORDS SUMMARY | 2025-05-10 07:47 | XMS_ITS | Encounter Summary ---
Author Organization [employer] Address [address] [place] [address] 7 [place] [address] Care Team Providers Care Meal Cook Name Role Phone Rolanda Thakur MD Primary Care Provider +1- [phone] Encounter Details Date Type Department Care Team ([facility] st Contact Info) Description 03/06/2025 Orders Only [facility] CHC MED & PEDS [address] [place], [place] [phone] Rolanda Thakur MD 505 [place] [address] Type 2 diabetes mellitus without complication, without long-term current use of insulin ([facility]) (Primary Dx) Social History Tobacco Use Types [...] current use of insulin ([facility])- Primary documented in this encounter Additional Health Concerns Assessment Noted Time PHQ-9 Depression Total Score: 2 05/13/20 24 9:24 AM EDT documented as of this encounter Care Teams Meal Cook Relationship Specialty Start Date End Date Rolanda Thakur MD [address] [place] [address] PCP - General Internal Medicine 09/19/22 documented as of this encounter
--- OUTSIDE RECORDS SUMMARY | 2025-05-10 07:47 | XMS_ITS | Encounter Summary ---
Author Organization [employer] Address [address] [place] [address] Care Team Providers Care Women'S Soccer Coach Name Role Phone Rolanda Thakur MD Primary Care Provider +1- [phone] Reason for Visit * Reason Onset Date Comments Med Refill 04/11/2025 Encounter Details Date Type Department Care Team ([facility] st Contact Info) Description 04/11/2025 Refill [facility] CHC MED & PEDS [address] [place] [address] Rolanda Thakur MD [address] [place] [address] Type 2 diabetes mellitus without complication, without long-term current use of insulin ([facility]) Social History Tobacco Use Types [...] long-term current use of insulin ([facility]) documented in this encounter Additional Health Concerns Assessment Noted Time PHQ-9 Depression Total Score: 2 05/13/20 24 9:24 AM EDT documented as of this encounter Care Teams Women'S Soccer Coach Relationship Specialty Start Date End Date Rolanda Thakur MD [address] [place] [address] PCP - General Internal Medicine 09/19/22 documented as of this encounter
--- OUTSIDE RECORDS SUMMARY | 2025-05-10 07:47 | XMS_ITS | Encounter Summary ---
Author Organization [employer] Address [address] [place] [address] Care Team Providers Care Cancer Researcher Name Role Phone Rolanda Thakur MD Primary Care Provider +1- [phone] Reason for Visit * Reason Onset Date Comments Med Refill 03/31/2025 Encounter Details Date Type Department Care Team ([facility] st Contact Info) Description 03/31/2025 Refill [facility] CHC MED & PEDS [address] [place] [address] Rolanda Thakur MD [address] [place] [address] Panic attack; Anxiety Social History Tobacco Use [...] documented as of this encounter Care Teams Cancer Researcher Relationship Specialty Start Date End Date Rolanda Thakur MD [address] [place] [phone] PCP - General Internal Medicine 09/19/22 documented as of this encounter
--- OUTSIDE RECORDS SUMMARY | 2025-05-10 07:47 | XMS_ITS | Encounter Summary ---
Author Organization [email or web address] Address [address] [place] [address] Care Team Providers Care Simplex Operator Name Role Phone Rolanda Thakur MD Primary Care Provider [phone]- [phone] Reason for Visit * Reason Onset Date Comments CT scan order 07/03/2024 Encounter Details Date Type Department Care Team ([facility] st Contact Info) Description 07/03/2024 Telephone [facility] MED & PEDS [address] [place] [address] Rolanda Thakur MD [address] [place] [address] CT scan order Social History Tobacco Use [...] incorrect location. Pt prefers being seen in [facility]. Please call pt to clarify. documented in this encounter Plan of Treatment Not on file documented as of this encounter Visit Diagnoses Not on filedocumented in this encounter Additional Health Concerns Assessment Noted Time PHQ-9 Depression Total Score: 2 05/13/20 24 9:24 AM EDT documented as of this encounter Care Teams Simplex Operator Relationship Specialty Start Date End Date Rolanda Thakur MD [address] [place] [phone] PCP - General Internal Medicine 09/19/22 documented as of this encounter
--- OUTSIDE RECORDS SUMMARY | 2025-05-10 07:47 | XMS_ITS | Encounter Summary ---
Author Organization [employer] Address [address] [place] [address] Care Team Providers Care Electric Meter Reader Name Role Phone Rolanda Thakur MD Primary Care Provider [phone] Reason for Visit * Reason Comments Med Refill Encounter Details Date Type Department Care Team ([facility] st Contact Info) Description 01/05/[address] [facility] CHC MED & PEDS [address] [place] [address] Karoline Castañeda MD [address] [place] [address] Social History Tobacco Use Types Packs/Day Years [...] on filedocumented in this encounter Care Teams Electric Meter Reader Relationship Specialty Start Date End Date Rolanda Thakur MD [address] [place] [phone] PCP - General Internal Medicine 09/19/22 documented as of this encounter
--- OUTSIDE RECORDS SUMMARY | 2025-05-10 07:47 | XMS_ITS | Encounter Summary ---
Author Organization [employer] Address [address] [place] [address] 7 [place] [address] Care Team Providers Care Cell Stripper Name Role Phone Rolanda Thakur MD Primary Care Provider [phone]- [phone] Encounter Details Date Type Department Care Team (Latest Contact Info) Description 03/20/2025 Results Follow-Up [facility] MED & PEDS [address] [place] [address] Rolanda Thakur MD [address] [place] [address] TSH W/Reflex to FT4, CBC auto differential [...] documented as of this encounter Care Teams Cell Stripper Relationship Specialty Start Date End Date Rolanda Thakur MD [address] [place] [address] PCP - General Internal Medicine 09/19/22 documented as of this encounter
--- OUTSIDE RECORDS SUMMARY | 2025-05-10 07:47 | XMS_ITS | Encounter Summary ---
Author Organization [employer] Address [address] [place] [address] Care Team Providers Care Web Content Editor Name Role Phone Rolanda Thakur MD Primary Care Provider [phone]- [phone] Reason for Visit * Reason Onset Date Comments Referral 06/13/2024 Encounter Details Date Type Department Care Team ([facility] st Contact Info) Description 06/13/2024 Telephone [facility] MEDICINE [address] [place] [address] Rolanda Thakur MD [address] [place], [place] [phone] Referral Social History Tobacco Use Types Packs/Day [...] as of this encounter Care Teams Web Content Editor Relationship Specialty Start Date End Date Rolanda Thakur MD [address] [place] [address] PCP - General Internal Medicine 09/19/22 documented as of this encounter
--- OUTSIDE RECORDS SUMMARY | 2025-05-10 07:47 | XMS_ITS | Encounter Summary ---
Author Organization [employer] Address [address] [place] [address] Care Team Providers Care Space Operations Name Role Phone Rolanda Thakur MD Primary Care Provider [phone]- [phone] Reason for Visit * Reason Comments Med Refill Encounter Details Date Type Department Care Team ([facility] st Contact Info) Description 05/08/2025 Refill [facility] CH[facility] MED & PEDS [address] [place] [address] Rolanda Thakur MD [address] [place] [address] Vitamin D deficiency Social History Tobacco Use [...] documented as of this encounter Care Teams Space Operations Relationship Specialty Start Date End Date Rolanda Thakur MD [address] [place] [phone] PCP - General Internal Medicine 09/19/22 documented as of this encounter
--- OUTSIDE RECORDS SUMMARY | 2025-05-10 07:48 | XMS_ITS | Encounter Summary ---
Author Organization [employer] Address [address] [place] [address] Care Team Providers Care Foreign Legal Consultant Name Role Phone Rolanda Thakur MD Primary Care Provider +1- [phone] Encounter Details Date Type Department Care Team ([facility] st Contact Info) Description 12/28/2023 Orders Only [facility] CHC MED & PEDS [address] [place], [place] [phone] Rolanda Thakur MD [address] [place] [address] Social History Tobacco Use Types Packs/Day Years [...] on filedocumented in this encounter Care Teams Foreign Legal Consultant Relationship Specialty Start Date End Date Rolanda Thakur MD [address] [place] [address] PCP - General Internal Medicine 09/19/22 documented as of this encounter
--- OUTSIDE RECORDS SUMMARY | 2025-05-10 07:48 | XMS_ITS | Encounter Summary ---
Author Organization [employer] Address [address] [place] [address] Care Team Providers Care Media Director Name Role Phone Rolanda Thakur MD Primary Care Provider [phone]- [phone] Reason for Visit * Reason Onset Date Comments Created In Error 04/29/2024 Encounter Details Date Type Department Care Team (Late st Contact Info) Description 04/29/2024 Telephone [facility] MEDICINE [address] [place] [phone] Rolanda Thakur MD [address] [place], [place] [phone] Created In Error Social History Tobacco Use [...] on filedocumented in this encounter Care Teams Media Director Relationship Specialty Start Date End Date Rolanda Thakur MD [address] [place] [address] PCP - General Internal Medicine 09/19/22 documented as of this encounter
--- OUTSIDE RECORDS SUMMARY | 2025-05-10 07:48 | XMS_ITS | Encounter Summary ---
Author Organization [employer] Address [address] [place] [address] Care Team Providers Care Management Professionals Name Role Phone Rolanda Thakur MD Primary Care Provider [phone]- [phone] Reason for Referral * Consultation (Routine) - Canceled Specialty Diagnoses / Procedures Referred By Conthernandez t Referred To Contact Endocrinology Diagnoses Type 2 diabetes mellitus without complication, without long-term current use of insulin (CMS/HCC) Rolanda Thakur MD [address] [place] [address] Phone: tel: fax: Referral ID Status Reason Start Date Expiration Date Visits Requested Visits Authorized [id number] Canceled Specialty Services Required 10/08/2024 10/08/2025 1 1 Encounter Details Date Type Department Care Team (Late st Contact Info) Description 10/08/2024 Orders Only [facility] CHC MED & PEDS [address] [place] [address] Rolanda Thakur MD [address] [place], [place] [phone] Type 2 diabetes mellitus without complication, without [...] complication, without long-term current use of insulin ([facility]) Expected: 10/08/2024 (Approximate), Expires: 10/08/2025 documented as of this encounter Procedures Procedure Name Priority Date/Time Associated Diagnosis Comments HEMOGLOBIN A1C Routine 02/05/2025 12:22 PM EDT Type 2 diabetes mellitus without complication, without long-term current use of insulin ([facility]) documented in this encounter Results * (ABNORMAL) Hemoglobin A1c (02/05/2025 12:22 PM EDT) Hemoglobin A1c 7.4(H) <6.0 % [facility] Comment:Hemoglobin A1C Refer ence Range Adults: 4.8 - 6.0 % Non diabetic: < 6.0 % Goal: < 7.0 %Additional Action Suggested: > 8.0 %Note: Hemoglobin A1c results are invalid for patients with abnormal amounts of HbF. Blood transfusions may impact the HbA1c concentration in the patient sample. Estimated Average Glucose 166 mg/dL [facility] Comment:eAG = Estimated ave rage glucose which is %A1C expressed asaverage glucose, using the formula of the [id number] Glucose study (ADAG), Diabetes Care, Vol.31,#8,Mar. 2007 Blood Venous blood specimen / Unknown 02/05/2025 12:22 PM EDT 02/05/2025 1:20 PM EDT Rolanda Thakur MD LAB BLOOD ORDERABLES Final Result [facility] [address] [place] [address] [phone] documented in this encounter Visit Diagnoses Diagnosis Type 2 diabetes mellitus without complication, without long-term current use of insulin ([facility])- Primary documented in this encounter Additional Health Concerns Assessment Noted Time PHQ-9 Depression Total Score: 2 05/13/20 24 9:24 AM EDT documented as of this encounter Care Teams Management Professionals Relationship Specialty Start Date End Date Rolanda Thakur MD [address] [place] [phone] PCP - General Internal Medicine 09/19/22 documented as of this encounter
--- OUTSIDE RECORDS SUMMARY | 2025-05-10 07:48 | XMS_ITS | Encounter Summary ---
Author Organization [employer] Address [address] [address] Care Team Providers Care Manager Work Name Role Phone Rolanda Thakur MD Primary Care Provider +1- [phone] Reason for Visit * Reason Onset Date Comments Med Refill 04/04/2024 Encounter Details Date Type Department Care Team (Late st Contact Info) Description 04/04/2024 Telephone [facility] MEDICINE [address] [place] [address] Rolanda Thakur MD [address] [place], [place] [phone] Med Refill Social History Tobacco Use Types [...] To be sent to: [facility] documented in this encounter Plan of Treatment Not on file documented as of this encounter Visit Diagnoses Diagnosis Anxiety- Primary Anxiety state, unspecified documented in this encounter Care Teams Manager Work Relationship Specialty Start Date End Date Rolanda Thakur MD [address] [place] [address] PCP - General Internal Medicine 09/19/22 documented as of this encounter
--- OUTSIDE RECORDS SUMMARY | 2025-05-10 07:48 | XMS_ITS | Encounter Summary ---
Author Organization [employer] Address [address] [place] [address] Care Team Providers Care Load Manager Name Role Phone Rolanda Thakur MD Primary Care Provider +1- [phone] Reason for Visit * Reason Onset Date Comments Medication Question 10/23/2023 Encounter Details Date Type Department Care Team ([facility] st Contact Info) Description 10/23/2023 Telephone [facility] MEDICINE [address] [place] [address] Rolanda Thakur MD [address] [place], [place] [phone] Medication Question Social History Tobacco Use Types [...] on filedocumented in this encounter Care Teams Load Manager Relationship Specialty Start Date End Date Rolanda Thakur MD [address] [place] [phone] PCP - General Internal Medicine 09/19/22 documented as of this encounter
--- OUTSIDE RECORDS SUMMARY | 2025-05-10 07:48 | XMS_ITS | Encounter Summary ---
Author Organization [employer] Address [address] [place] [address] Care Team Providers Care Reprographics Technician Name Role Phone Rolanda Thakur MD Primary Care Provider [phone]- [phone] Encounter Details Date Type Department Care Team ([facility] st Contact Info) Description 12/07/2023 Telephone [facility] MEDICINE [address] [place] [address] [phone] Rolanda Thakur MD [address] [place] [address] Social History Tobacco Use Types Packs/Day Years [...] on filedocumented in this encounter Care Teams Reprographics Technician Relationship Specialty Start Date End Date Rolanda Thakur MD [address] [place] [address] PCP - General Internal Medicine 09/19/22 documented as of this encounter
--- OUTSIDE RECORDS SUMMARY | 2025-05-10 07:48 | XMS_ITS | Clinical Summary ---
Author Organization [employer] Address [address] [place] [address] [place] [address] Care Team Providers Care Juke Box Mechanic Name Role Phone Rolanda Thakur MD Primary Care Provider [phone] Allergies Active Allergy Reactions Criticality Noted Date [...] represent a complete record from that organization. glucose 4 g chewable tabletIndications :Type 2 diabetes mellitus without complication, without long-term current use of insulin ([facility]) Chew 4 tablets (16 g) if needed for low blood sugar. 50 tablet 12 03/06/20 24 Active glucose blood (OneTouch Ultra) test stripIndications: Type 2 diabetes mellitus without complication, without long-term current use of insulin ([facility]) USE DIRECTED TO TEST BLOOD GLUCOSE TWICE DAILY 100 strip 11 07/05/20 24 Active ascorbic acid (Vitamin C) 500 [...] DAY 30 tablet 11 08/23/19 25 Active Continuous Glucose Sensor (Dexcom G7 Sensor) [...] complication, without long-term current use of insulin ([facility]) Use to test blood sugar 2 times daily 1 kit 12/27/19 25 Active cloNIDine (Catapres) 0.1 MG tabletIndications :Anxiety,Benign essential hypertension TAKE 1 TABLET(0.1 MG) BY MOUTH THREE TIMES DAILY 90 tablet 2 12/27/19 25 Active cetirizine (ZyrTEC) 10 MG tablet TAKE 1 TABLET BY MOUTH DAILY 30 tablet 11 01/25/20 25 Active Continuous Glucose Manager Solar (Dexcom G7 Manager Solar) deviceIndications :Type 2 diabetes mellitus without complication, without long-term current use of insulin ([facility]) USE DIRECTED 1 each 02/19/20 25 Active [...] without long-term current use of insulin (CMS/HCC) TAKE 1 TABLET BY MOUTH TWICE DAILY [...] breakfast and before evening meal. 60 tablet 03/20/20 25 2025 Active FREESTYLE LITE test stripIndications: Type 2 diabetes mellitus without complication, without long-term current use of insulin (CMS/HCC) Use to test blood sugar 2-3 times daily 100 each 12 04/18/20 25 2025 Active Lancets miscIndications:T ype 2 diabetes mellitus without complication, without long-term current use of insulin (CMS/HCC) Use to test blood sugar 2-3 times daily 100 each 04/18/20 25 Active Alcohol Swabs 70 % padsIndications:T ype 2 diabetes mellitus without complication, without long-term current use of insulin (CMS/HCC) Use to test blood sugar 2-3 times daily 100 each 04/18/20 25 Active Blood Glucose Monitoring Suppl (FreeStyle [place] Lite) w/Device kitIndications:Ty pe 2 diabetes mellitus without complication, without long-term current use of insulin (CMS/HCC) Use to test blood sugar 2-3 times daily 1 kit 04/18/20 25 Active Synthroid 125 MCG tabletIndications :Acquired hypothyroidism TAKE 1 TABLET BY MOUTH EVERY DAY 90 tablet 1 04/18/20 25 Active Accu-Chek Softclix Lancets lancetsIndication s:Type 2 diabetes mellitus without complication, without long-term current use of insulin (CMS/HCC) USE TO CHECK BLOOD SUGAR 2 OR 3 TIMES A DAY 100 each 11 04/18/20 25 Active glucose blood (Accu-Chek Guide Test) test stripIndications: Type 2 diabetes mellitus without complication, without long-term current use of insulin ([facility]) USE TO CHECK BLOOD SUGAR 2 OR 3 TIMES A DAY 100 each 11 04/18/20 25 Active Blood Glucose Monitoring Suppl (Accu-Chek Guide Me) w/Device kitIndications:Ty pe 2 diabetes mellitus without complication, without long-term current use of insulin ([facility]) USE TO CHECK BLOOD SUGAR 2 OR 3 TIMES A DAY 1 kit 04/18/20 25 Active clonazePAM (KlonoPIN) 0.5 MG tabletIndications :Panic attack,Anxiety TAKE 1 TABLET BY MOUTH EVERY DAY NEEDED FOR PANIC ATTACKS 10 tablet 04/22/20 25 Active ascorbic acid (Vitamin C) 1000 MG tablet TAKE 1 TABLET BY MOUTH EVERY MORNING 90 tablet 05/08/20 25 Active D3-1000 25 MCG (1000 UT) capsuleIndication s:Vitamin D deficiency TAKE 1 CAPSULE BY MOUTH EVERY DAY 90 capsule 2 05/09/20 25 Active ciprofloxacin (Cipro) 500 MG tabletIndications :Recent urinary tract infection Take 1 tablet (500 mg) by mouth 2 times daily for 7 days. 14 tablet 05/09/20 25 2024 Active OneTouch Delica Lancets 33G misc Use to check blood sugar four times daily 2024 Discontinued ascorbic acid (Vitamin C) 1000 MG tablet TAKE 1 TABLET BY MOUTH EVERY DAY 30 tablet 08/15/20 24 2024 Discontinued D3-1000 25 MCG (1000 UT) capsuleIndication s:Vitamin D deficiency TAKE 1 CAPSULE BY MOUTH EVERY DAY 90 capsule 2 08/15/20 24 2024 Discontinued Synthroid 125 MCG tablet TAKE 1 TABLET BY MOUTH ON MONDAY, MONDAY, AND MONDAY AND ALTERNATE WITH 137 MCG ON MONDAY, MONDAY, MONDAY, AND MONDAY 36 tablet 11 08/22/19 25 2024 Discontinued(R eorder (will not trigger notification to Pharmacy)) capsaicin (Zostrix) 0.025 % creamIndications: Spondylosis of cervical region without myelopathy or radiculopathy Apply topically 2 times daily. 56.6 g 3 09/10/19 25 2024 Discontinued(T herapy completed) cyanocobalamin (Vitamin B-12) 500 MCG tablet TAKE 1 TABLET(500 MCG) BY MOUTH DAILY IN THE MORNING 90 tablet 3 09/16/19 25 2024 Discontinued Synthroid 125 MCG tabletIndications :Acquired hypothyroidism TAKE [...] FOR PANIC ATTACKS 10 tablet 03/31/20 25 2024 Discontinued Synthroid 125 MCG tabletIndications :Acquired hypothyroidism TAKE 1 TABLET BY MOUTH ON MONDAY, MONDAY, AND MONDAY AND ALTERNATE WITH 137 MCG ON MONDAY, MONDAY, MONDAY, AND MONDAY 36 tablet 11 04/17/20 25 2024 Discontinued(D ose adjustment) levothyroxine (Synthroid) 125 MCG tabletIndications :Acquired hypothyroidism Take 1 tablet (125 mcg) by mouth before breakfast. 90 tablet 1 04/18/20 25 2024 Discontinued(R eorder (will not trigger notification to Pharmacy)) nitrofurantoin, macrocrystal-mono hydrate, (Macrobid) 100 MG capsuleIndication s:UTI symptoms Take 1 capsule (100 mg) by mouth 2 times daily for 5 days. 10 capsule 04/18/20 25 2024 ciprofloxacin (Cipro) 500 MG tabletIndications :Recent urinary tract infection Take 1 tablet (500 mg) by mouth 2 times daily for 7 days. 14 tablet 05/01/20 25 2024 phenazopyridine (Pyridium) 100 MG tabletIndications :Recent urinary tract infection Take 1 tablet (100 mg) by mouth if needed in the morning, at noon, and at bedtime for bladder spasms for up to 3 days. 10 tablet 05/01/202024 Active Problems Problem Noted Date Diagnosed Date [...] Plan: Augmentin BID x 10 days Nasal [place] Follow up if worsening or no improvement [...] intervention , Patient to reach out to HHC team as needed, Patient to engage in OP therapy , and Patient to reach out to [facility] as needed Swelling of lip, tongue, and throat 05/10/2024 Assessment & Plan (05/22/2024 1:00 PM EDT): Patient reports episodes of swelling of exposure to different antigens, at this moment given recurrence and symptoms affecting patients daily, will strongly benefit of assessment from bobbin drier to help elucidate etiology of symptoms. Peripheral neuropathy 12/06/2022 Acquired hypothyroidism 12/06/2022 Assessment & Plan (04/22/2025 12:01 PM EDT): Synthroid 125mcg daily sent to pharmacy Plan: recheck TSH in 6-8 weeks (lab ordered today, although may also be managed through Endo once established in Apr 2025) Diabetic neuropathy 08/17/2022 Type 2 diabetes mellitus 03/27/2021 Overview (08/12/2022): Trying metformin again. Still aware of statin recommendationsDeclined statin and metformin, aware of recommendations Assessment & Plan (04/22/2025 12:02 PM EDT): Refill of BG monitoring supplies sent to pharmacy Benign essential hypertension 07/31/2019 Assessment & Plan [...] organization. Date Type Department Care Team Description 05/08/2025 Refill [facility] [address] [place] [address] Rolanda Thakur MD Vitamin D deficiency 05/08/2025 Refill [facility] [address] [place] [address] Rolanda Thakur MD Recent urinary tract infection 05/07/2025 Refill [facility] [address] [place] [address] Rolanda Thakur MD 05/07/2025 Telephone [facility] [address] [place] [address] Rolanda Thakur MD 05/02/2025 Telephone [facility] [address] [place] [address] Rolanda Thakur MD Results 05/02/2025 Results Follow-Up [facility] [address], [place] [phone] Ilsa Boyd, MINOO Culture, Urine, Routine 05/02/2025 Telephone [facility] [address], [place] [phone] Rolanda Thakur MD 05/01/2025 Orders Only [facility] [address] [place] [address] Rolanda Thakur MD Recent urinary tract infection (Primary Dx) 05/01/[address] [address] Rolanda Thakur MD Results 04/30/2025 Orders Only [facility] [address] [place] [address] Rolanda Thakur MD Recurrent UTI (Primary Dx) 04/30/2025 Results Follow-Up [facility] [address], [place] [phone] Rolanda Thakur MD XR Hand 3+ Views Right, XR Hand 3+ Views Left 04/22/2025 3:40 PM EDT Office Visit [facility] [address] [place] [address] Rolanda Thakur MD Traumatic ecchymosis of left hand, initial encounter (Primary Dx); Right hand pain; Benign essential hypertension 04/22/2025 Travel 04/22/[address] [address] Rolanda Thakur MD call back / orders 04/22/2025 Results Follow-Up [facility] [address] [place], [place] [phone] Migdalia Loza, PREPRESS TECHNICIAN TSH W/Reflex to FT4, Urinalysis, Complete, with Reflex to Culture, Culture, Urine, Routine 04/21/2025 Refill [facility] [address] [place], [place] [phone] Rolanda Thakur MD Panic attack; Anxiety 04/18/2025 8:30 AM EDT Office Visit [facility] [address] [place] [address] Migdalia Loza FNP Urinary urgency (Primary Dx); Acquired hypothyroidism; Type 2 diabetes mellitus without complication, without long-term current use of insulin (CMS/HCC) 04/18/2025 Refill [facility] [address] [place] [address] Rolanda Thakur MD Acquired hypothyroidism; Type 2 diabetes mellitus without complication, without long-term current use of insulin (CMS/HCC) 04/18/2025 Telephone [facility] [address] [place] [address] Migdalia Loza FNP Appointment Request 04/18/2025 Travel 04/18/2025 Orders Only [facility] [address] [place] [address] Migdalia Loza FNP Acquired hypothyroidism (Primary Dx); UTI symptoms; Type 2 diabetes mellitus without complication, without long-term current use of insulin (CMS/HCC) 04/17/2025 Telephone [facility] [address] [place] [address] Rolanda Thakur MD Nurse Triage 04/17/2025 Telephone [facility] [address] [place] [address] Rolanda Thakur MD Med Refill 04/16/2025 Refill [facility] [address] [place] [address] Rolanda Thakur MD Acquired hypothyroidism 04/15/2025 Results Follow-Up [facility] [address] [place] [address] Kimberly Bronson, MINOO Basic Metabolic Panel 04/14/2025 Orders Only [facility] [address] [place] [address] Rolanda Thakur MD Type 2 diabetes mellitus without complication, without long-term current use of insulin (CMS/HCC) (Primary Dx); Recent urinary tract infection 04/12/2025 Orders Only GENERIC EXTERNAL DATA DEPARTMENT Provider, Generic External Data 04/11/2025 Refill [facility] [address] [place] [address] Rolanda Gutierrez MD Type 2 diabetes mellitus without complication, without long-term current use of insulin ([facility]) 03/31/2025 Refill [facility] [address], [place] [phone] Gutierrez MD Panic attack; Anxiety 03/31/2025 Refill [facility] [address] [place], [place] [phone] Vasques MD Panic attack; Anxiety 03/24/2025 Results Follow-Up [facility] [address] [place] [address] Rolanda Vasques MD T-SPOT .TB 03/22/2025 Refill [facility] [address] [place] [address] Rolanda Vasques MD 03/20/2025 Orders Only [facility] [address] [place] [address] Rolanda Toribio MD 03/20/2025 Refill [facility] [address] [place] [address] Rolanda Toribio MD 03/20/2025 Results Follow-Up [facility] [address] [place], [place] [phone] Vasques MD TSH W/Reflex to FT4, CBC auto differential 03/19/2025 Orders Only [facility] [address], [place] Rolanda Murillo MD 03/19/2025 Telephone [facility] [address], [place] Rolanda Murillo MD Appointment Request; Lab Orders 03/19/2025 Telephone [facility] [address] [place] [address] Rolanda Murillo MD PE APPT 03/11/2025 Telephone [facility] [address] [place] [address] Rolanda Thakur MD Call Back Request 03/06/2025 Orders Only [facility] [address] [place] [address] Rolanda Thakur MD Type 2 diabetes mellitus without complication, without long-term current use of insulin ([facility]) (Primary Dx) 03/02/2025 Refill [facility] [address] [place] [address] Rolanda Thakur MD Diabetic polyneuropathy associated with type 2 diabetes mellitus (CMS/HCC) 02/28/2025 Telephone [facility] [address] [place] [address] Rolanda Thakur MD Referral 02/26/2025 Telephone [facility] [address] [place] [address] Rolanda Thakur MD Medication Question 02/18/2025 Refill [facility] [address] [place] [address] Rolanda Thakur MD Type 2 diabetes mellitus without complication, without long-term current use of insulin (CMS/HCC) 02/18/2025 Telephone [facility] [address] [place] [address] Rolanda Thakur MD Med Refill 02/17/2025 Refill [facility] [address] [place] [address] Rolanda Thakur MD Type 2 diabetes mellitus without complication, without long-term current use of insulin (CMS/HCC); Panic attack; Anxiety 02/17/2025 Refill [facility] [address] [place] [address] Rolanda Thakur MD Type 2 diabetes mellitus without complication, without long-term current use of insulin (CMS/HCC); Neck pain on left side; Panic attack; Anxiety 02/13/2025 Orders Only [facility] External Provider, [facility] from Last 3 Months Immunizations Immunization Administration [...] Sign Reading Time Taken Comments Blood Pressure 200/81 04/22/2025 3:43 PM EDT Pulse 70 04/22/2025 3:43 PM EDT Temperature 36.8 C (98.2 F) 04/22/2025 3:43 PM EDT Respiratory Rate 20 04/22/2025 3:43 PM EDT Oxygen Saturation 99% 04/22/2025 3:43 PM EDT Inhaled Oxygen Concentration - - Weight 67.1 kg (148 lb) 04/22/2025 3:43 PM EDT Height 162.6 cm (5' 4 ) 04/22/2025 3:43 PM EDT Body Mass Index 25.4 04/22/2025 3:43 PM EDT Plan of Treatment Health Maintenance Due Date Last Done Comments CT Colonography 1950 Colonoscopy 1950 FIT 1950 Sigmoidoscopy 1950 Diabetes: Foot Exam 02/18/2025 02/19/2024, 02/19/2024, 02/19/2024, Additional history exists COVID-19 Vaccine ( season) 2025 07/10/2021, 11/04/2020 Influenza Vaccine (#1) 2025 , 06/26/2023, 06/27/2021, Additional history exists Diabetes: Hemoglobin A1C 05/08/2025 025, 07/06/2024, 01/19/2024, Additional history exists Depression Screening 05/13/2025 05/13/2024, 05/13/20 Diabetes: Urine Protein Screening 07/17/2025 07/17/2024 FOBT 08/09/2025 08/09/2024, 01/03/2022 Alcohol/Substance Use Screening 09/10/2025 09/10/2024 SDOH Screening [...] Name Priority Date/Time Associated Diagnosis Comments XR HAND 3+ VIEWS LEFT Routine 04/30/2025 8:55 AM EDT Traumatic ecchymosis of left hand, initial encounter Right hand pain XR HAND 3+ VIEWS RIGHT Routine 04/30/2025 8:55 AM EDT Traumatic ecchymosis of left hand, initial encounter Right hand pain URINALYSIS, COMPLETE, WITH REFLEX TO CULTURE Routine 04/30/2025 8:37 AM EDT Type 2 diabetes mellitus without complication, without long-term current use of insulin ([facility]) Recent urinary tract infection CULTURE, URINE, ROUTINE Routine 04/30/2025 12:00 AM EDT URINALYSIS, COMPLETE, WITH REFLEX TO CULTURE Routine 04/18/2025 8:39 AM EDT UTI symptoms TSH W/REFLEX TO FT4 Routine 04/18/2025 8 :31 AM EDT Acquired hypothyroidism CULTURE, URINE, ROUTINE Routine 04/18/2025 12:00 AM EDT Acquired hypothyroidism TSH W/REFLEX TO FT4 Routine 04/12/2025 1 0:26 AM EDT LIPID PANEL, STANDARD Routine 04/12/2025 10:26 AM EDT BASIC METABOLIC PANEL Routine 04/12/2025 10:26 AM EDT Type 2 diabetes mellitus with hyperglycemia, without long-term current use of insulin ([facility]) T-SPOT(R).TB Routine 03/20/2025 9:09 AM EDT SLIDE [...] VIEWS LEFT Routine 02/13/2025 10:49 AM EDT HEMOGLOBIN A1C Routine 02/05/2025 12:22 PM EDT Type 2 diabetes mellitus without complication, without long-term current use of insulin (CMS/HCC) HM MAMMOGRAPHY Routine 12/17/2024 8:40 AM EDT LAB [...] current use of insulin (CMS/HCC) Decreased GFR from Last 3 Months or Most Recently Relevant to Health Maintenance Results * XR Hand 3+ Views Right (04/30/2025 8:55 AM EDT) Anatomical Region Laterality Modality Upper Extremities, Hand Right [facility] 04/30/2025 8:55 AM EDT Narrative 04/30/2025 9:20 AM EDT [facility] [place] [address] [place] [address] XRay Report Signed Patient: Angely Pineda MR#: [id number] : 1950 Acct:[id number] Age/Sex: 74 / F ADM Date: 04/30/25 Loc: [facility] Attending Dr: Rolanda Thakur MD Ordering Physician: Rolanda Thakur MD Date of Service: 04/30/25 Procedure(s): XR hand RT min 3V Accession Number(s): [id number] cc: Rolanda Thakur MD Reason for Exam: right hand and wrist pain after a fall. EXAMINATION: XR HAND 3 OR MORE VIEWS RIGHT HISTORY: right hand and wrist pain after a fall. COMPARISON: There are no prior studies available for comparison. FINDINGS: Three views of the right hand are submitted. Osseous mineralization is normal. There is no fracture or dislocation. There are mild degenerative changes involving the radial aspect of the carpus. The soft tissues are unremarkable. XR/XR hand RT min 3V IMPRESSION: No evidence of fracture of the right hand. Electronically signed by: Jesus Shore MD 04/30/2025 09:18 AM EDT Dictated By: Jesus Shore MD Signed By: <Electronically signed by Jesus Shore MD in OV> 04/30/25917 DD/ 4 TD/TT: 04/30/25899 [employer] Room: Procedure Note Donotuseinterpreter, Image - 04/30/2025 [facility] [place] [address] XRay Report Signed Patient: Angely PinedaMR#: [id number] : 1950cct:[id number] Age/Sex: 74 / FADM Date: 04/30/25 Loc: [facility] Attending Dr: Rolanda Thakur MD Ordering Physician: Rolanda Thakur MD Date of Service: 04/30/25 Procedure(s): XR hand RT min 3V Accession Number(s): [id number] cc: Rolanda Thakur MD Reason for Exam: right hand and wrist pain after a fall. EXAMINATION: XR HAND 3 OR MORE VIEWS RIGHT HISTORY: right hand and wrist pain after a fall. COMPARISON: There are no prior studies available for comparison. FINDINGS: Three views of the right hand are submitted. Osseous mineralization is normal. There is no fracture or dislocation. There are mild degenerative changes involving the radial aspect of the carpus. The soft tissues are unremarkable. XR/XR hand RT min 3V IMPRESSION: No evidence of fracture of the right hand. Electronically signed by: Jesus Shore MD 04/30/2025 09:18 AM EDT Dictated By: Jesus Shore MD Signed By: <Electronically signed by Jesus Shore MD in OV> 04/30/25917 DD/ 4 TD/TT: 04/30/25899 Super[employer] Room: us Rolanda Thakur MD IMG XR PROCEDURES Final Res ult * XR Hand 3+ Views Left (04/30/2025 8:55 AM EDT) Anatomical Region Laterality Modality Upper Extremities, Hand Left [facility] 04/30/2025 8:55 AM EDT Narrative 04/30/2025 9:19 AM EDT [facility] [address] [place] [address] [address] [place], [place] [address] XRay Report Signed Patient: Angely Pineda MR#: [id number] : 1950 Acct:[id number] Age/Sex: 74 / F ADM Date: 04/30/25 Loc: HO.[facility] Attending Dr: Rolanda Thakur MD Ordering Physician: Rolanda Thakur MD Date of Service: 04/30/25 Procedure(s): XR hand LT min 3V Accession Number(s): [id number] cc: Rolanda Thakur MD Reason for Exam: Left hand bruises and pain after a fall EXAMINATION: XR HAND 3 OR MORE VIEWS LEFT HISTORY: Left hand bruises and pain after a fall COMPARISON: There are no prior studies available for comparison. FINDINGS: Three views of the left hand are submitted. The trapezium is absent. Osseous mineralization is normal. There is no fracture or dislocation. The joint spaces are preserved. The soft tissues are unremarkable. XR/XR hand LT min 3V IMPRESSION: No evidence of fracture of the left hand. Electronically signed by: Jesus Shore MD 04/30/2025 09:16 AM EDT RP Dictated By: Jesus Shore MD Signed By: <Electronically signed by Jesus Shore MD in OV> 04/30/25915 DD/ 4 TD/TT: 04/30/25899 Super[employer] Room: Procedure Note Donotuseinterpreter, Image - 04/30/2025 [facility] [address] [place] [address] [place] [address] XRay Report Signed Patient: Erma Pineda#: [id number] : 1950cct:[id number] Age/Sex: 74 / FADM Date: 04/30/25 [facility]: Rolanda Thakur MD Ordering Physician: Rolanda Thakur MD Date of Service: 04/30/25 Procedure(s): XR hand LT min 3V Accession Number(s): [id number] cc: Rolanda Thakur MD Reason for Exam: Left hand bruises and pain after a fall EXAMINATION: XR HAND 3 OR MORE VIEWS LEFT HISTORY: Left hand bruises and pain after a fall COMPARISON: There are no prior studies available for comparison. FINDINGS: Three views of the left hand are submitted. The trapezium is absent. Osseous mineralization is normal. There is no fracture or dislocation. The joint spaces are preserved. The soft tissues are unremarkable. XR/XR hand LT min 3V IMPRESSION: No evidence of fracture of the left hand. Electronically signed by: Jesus Shore MD 04/30/2025 09:16 AM EDT RP Dictated By: Jesus Shore MD Signed By: <Electronically signed by Jesus Shore MD in OV> 04/30/25915 DD/ 4 TD/TT: 09/10/25 0900 [employer] Room: us Rolanda Thakur MD IMG XR PROCEDURES Final Res ult * (ABNORMAL) Urinalysis, Complete, with Reflex to Culture (04/30/2025 8:37 AM EDT) Only the most recent of2 resultswithin the time period is included. Color Urine Dark Yellow [facility] Appearance Urine Clear [facility] PH 6.5 5.0 - 9.0 [facility] Glucose Urine UA Negative Negative mg/dL [facility] Urine Blood Negative Negative [facility] Specific [place] - Urine 1.010 1.005 - 1.025 [facility] Urine Protein Negative Neg-Trace mg/dL [facility] Urine Ketones Negative Negative mg/dL [facility] Nitrite Urine Negative Negative [facility] Leukocyte Esterase Urine Small (1+)(A) Negative [facility] RBC Urine 0-2 0 - 2 /HPF [facility] Urine WBC 0-5 0 - 5 /HPF [facility] [facility] Urine Squamous Epithelial Cell 0-2 0 - 2 /HPF [facility] Urine Bacteria None Seen None Seen [facility] Hyaline Casts, Urine 0-2 0 - 2 /LPF [facility] Urine 04/30/2025 8:37 AM EDT 04/30/2025 1:12 PM EDT Narrative [facility] - 04/30/2025 2:16 PM EDT Urine, Clean Catch us Rolanda Thakur MD LAB URINE ORDERABLES Final Result [facility] [address] [place] [phone] * Culture, Urine, Routine (04/30/2025 12:00 AM EDT) Only the most recent of2 resultswithin the time period is included. Urine Urine specimen obtained by clean catch procedure / Unknown 04/30/2025 04/30/2025 Comment:UACC Narrative [facility] - 05/02/2025 7:24 AM EDT Escherichia coli Quant 50,000 to 100,000 cfu/mL Escherichia coli: Ampicillin 16(I) Escherichia coli: Cefazolin (Urine) <=1(S) Escherichia coli: Cefepime <=0.12(S) Escherichia coli: Ceftriaxone <=0.25(S) Escherichia coli: Ciprofloxacin <=0.06(S) Escherichia coli: Gentamicin <=1(S) Escherichia coli: Nitrofurantoin <=16(S) Escherichia coli: Trimethoprim/Sulfamethoxazole <=20(S) Specimen Source: Urine clean catch us Rolanda Thakur MD LAB MICROBIOLOGY - GENERAL ORDERABLES Final Result Performing Organization Address [facility] Co de Phone Number [facility] [address] [place] [phone] * TSH W/Reflex to FT4 (04/18/2025 8:31 AM EDT) Only the most recent of3 resultswithin the time period is included. TSH reflex Free T4 1.59 0.32 - 4.0 uIU/mL [facility] Blood Venous blood specimen / Unknown 04/18/2025 8:31 AM EDT 04/18/2025 2:28 PM EDT us Migdalia PALMER LAB BLOOD ORDERABLES Final Res ult Performing Organization Address [facility]/ZIP Co de Phone Number [facility] [address] [place] [phone] * (ABNORMAL) Lipid Panel, Standard (04/12/2025 10:26 AM EDT) Triglycerides 70 <150 mg/dL [facility] Comment:Desirable Triglyceri de: less than 150 mg/dLBorderline High Triglyceride 150-199 mg/dLHigh Triglyceride: 200-499 mg/dLVery High Triglyceride: greater than or equal to 5OO mg/dL Cholesterol 191 <200 mg/dL [facility] Comment:Desirable Cholestero l: less than 200 mg/dLBorderline High Cholesterol: 200-239 mg/dLHigh Cholesterol: greater than 239 mg/dL LDL Cholesterol Calculated 122(H) <100 mg/dL [facility] Comment:Desirable LDL: less than 100 mg/dLNear Optimal/Above Optimal LDL: 110- 129 mg/dLBorderline High LDL: 130-159 mg/dLHigh LDL: 160-189 mg/dLVery High LDL: greater than or equal to 190 mg/dL HDL Cholesterol 55 >40 mg/dL [facility] Comment:Desirable HDL: great er than 40 mg/dL Note: This HDL assay may give artificially low results in patients with liver disease. 04/12/2025 10:2 6 AM EDT 04/12/2025 11:02 AM EDT us Generic External Data Provider LAB BLOOD ORDERAB LES Final Result [facility] [address] [place] [phone] * (ABNORMAL) Basic Metabolic Panel (04/12/2025 10:26 AM EDT) Sodium 136 135 - 145 mmol/L [facility] Potassium 5.0 3.3 - 5.1 mmol/L [facility] Chloride 106 96 - 108 mmol/L [facility] Carbon Dioxide 23 22 - 29 mmol/L [facility] Anion Gap 12 12 - 20 [facility] Urea Nitrogen (BUN) 22(H) 9 - 16 mg/dL [facility] Creatinine, Serum 0.95 0.5 - 1.4 mg/dL [facility] Estimated Glomerular Filt Rate 58 [facility] Comment:Chronic Kidney Disea se: Estimated GFR < 60 mL/min/1.51d7Hsdxvz Kidney Disease: Estimated GFR < 15 mL/min/1.73m2 Glucose 147(H) 60 - 115 mg/dL [facility] Calcium 9.7 8.4 - 10.2 mg/dL [facility] Blood Venous blood specimen / Unknown 04/12/2025 10:26 AM EDT 04/12/2025 11:02 AM EDT [facility] LAB BLOOD ORDERABLES Final Re sult [facility] [address] [place] [address] [phone] * T-SPOT??.TB (03/20/2025 9:09 AM EDT) Only the most recent of2 resultswithin the time period is included. T-Spot. TB Negative Negative [facility] Comment: A negative test result [...] For Neg Control 1 [facility] Panel B Spot Count Corrected For Neg Control 1 [facility] Negative Control Passed [facility] Positive Control Passed [facility] Comment: For additional information, please refer to http://education.Groxis/faq/MXW530 (This link is being provided for informational/ educational purposes only.) 03/20/2025 9:09 AM EDT 03/20/2025 9:11 AM EDT us Rolanda Thakur MD LAB BLOOD ORDERABLES Final Result [facility] [address] [facility] [address], [facility], [place] [address] [facility]/[place] [address] [facility] [place] [address] * Slide Review (03/19/2025 3:13 PM EDT) Slide Review VERIFIED [facility] 03/19/2025 3:13 PM EDT 03/19/2025 5:56 PM EDT us Rolanda Thakur MD LAB BLOOD ORDERABLES Final Result [facility] [address] [place] [address] [phone] * (ABNORMAL) CBC auto differential (03/19/2025 3:13 PM EDT) White Blood Count 8.1 4.8 - 10.8 X10*3/uL [facility] Red Blood Count 4.20 4.20 - 5.50 X10*6/uL [facility] Hemoglobin 12.6 12.0 - 16.0 g/dl [facility] Hematocrit 37.4 37.0 - 47.0 % [facility] Mean Corpuscular Volume 89.0 80.0 - 98.0 fL [facility] Mean Corpuscular Hemoglobin 30.0 27.0 - 33.0 pg [facility] Mean Corpuscular HGB Conc 33.7 31.0 - 35.0 g/dl [facility] Red Cell Distribution Width 13.1 11.0 - 16.0 % [facility] Platelet Count TNP 160 - 400 X10*3/uL [facility] Comment:Platelet clumps note d. Platelet count will not be accurate. Mean Platelet Volume 9.0(L) 9.4 - 12.3 fL [facility] Neutrophils Percent Auto 61.2 45 - 73 % [facility] Imm Gran Pct Auto 0.4 0.0 - 0.4 % [facility] Lymphocytes Percent Auto 29.0 20 - 40 % [facility] Monocytes Percent Auto 6.8 2 - 11 % [facility] Eosinophils Percent Auto 1.9 0 - 4 % [facility] Basophils Percent Auto 0.7 0 - 2 % [facility] NRBC Pct Auto 0.0 0.0 - 0.2 /100WBC [facility] Neutrophils Absolute Auto 5.0 2.0 - 8.3 x10*3/uL [facility] Imm Gran Abs Auto 0.03 0.00 - 0.03 X10*3/uL [facility] Lymphocytes Absolute Auto 2.3 1.2 - 4.9 X10*3/uL [facility] Monocytes Absolute Auto 0.6 0.1 - 1.2 X10*3/uL [facility] Eosinophils Absolute Auto 0.2 0.0 - 0.4 X10*3/uL [facility] Basophils Absolute Auto 0.1 0.0 - 0.2 X10*3/uL [facility] NRBC Abs Auto 0.000 0.0 - 0.012 X10*3/uL [facility] Blood Venous blood specimen / Unknown 03/19/2025 3:13 PM EDT 03/19/2025 5:56 PM EDT us Rolanda Thakur MD LAB BLOOD ORDERABLES Edited Result - Final [facility] [address] [place] [phone] [phone] * XR Knee 1-2 Views Left (02/13/2025 10:49 AM EDT) Anatomical Region Laterality Modality Lower Extremities, Knee Left Radiogra phic Imaging 02/13/2025 10:4 9 AM EDT Narrative 02/13/2025 12:29 PM EDT [facility] [address] [place] [address] [place] [address] XRay Report Signed Patient: Angely Pineda MR#: [id number] : 1950 Acct:[id number] Age/Sex: 74 / F ADM Date: 02/13/25 Loc: HO.HMGCX Attending Dr: Latonia De Jesus FOOD AND DRUG INSPECTOR Ordering Physician: Latonia De Jesus NP Date of Service: 02/13/25 Procedure(s): XR knee LT 2V Accession Number(s): [id number] cc: Rolanda Thakur MD; Latonia De Jesus [...] 02/13/25 1226 DD/ 1049 TD/TT: 02/13/25 1146 Supervisor Cutting And Sewing Room: Procedure Note Donotuseinterpreter, Image - 02/13/2025 [facility] [address] [place] [address] [place] [address] XRay Report Signed Patient: Angely PinedaMR#: [id number] : 1950cct:[id number] Age/Sex: 74 / FADM Date: 02/13/25 Loc: HO.HMGCX Attending Dr: Latonia De Jesus FOOD AND DRUG INSPECTOR Ordering Physician: Latonia De Jesus NP Date of Service: 02/13/25 Procedure(s): XR knee LT 2V Accession Number(s): [id number] cc: Rolanda Thakur MD; Latonia De Jesus [...] 02/13/25 1226 DD/ 1049 TD/TT: 02/13/25 1146 Supervisor Cutting And Sewing Room: [facility] External Provider IMG XR PROCEDURES Final Result * (ABNORMAL) Hemoglobin A1c (02/05/2025 12:22 PM EDT) Hemoglobin A1c 7.4(H) <6.0 % [facility] Comment:Hemoglobin A1C Refer ence Range Adults: 4.8 - 6.0 % Non diabetic: < 6.0 % Goal: < 7.0 %Additional Action Suggested: > 8.0 %Note: Hemoglobin A1c results are invalid for patients with abnormal amounts of HbF. Blood transfusions may impact the HbA1c concentration in the patient sample. Estimated Average Glucose 166 mg/dL [facility] Comment:eAG = Estimated ave rage glucose which is %A1C expressed asaverage glucose, using the formula of the H8A-ZaitmuiWsxdakz Glucose study (ADAG), Diabetes Care, Vol.31,#8,Mar. 2007 Blood Venous blood specimen / Unknown 02/05/2025 12:22 PM EDT 02/05/2025 1:20 PM EDT Rolanda Thakur MD LAB BLOOD ORDERABLES Final Result [facility] [address] [place] [address] [phone] * Hm Mammography (12/17/2024 8:40 AM EDT) Anatomical Region Laterality Modality Other Historical Provider HEALTH MAINTENANCE Final Result * Cologuard?? colon cancer screening (08/09/2024 8:30 AM EST) Cologuard Result Negative Negative 08/18/20 11:52 PM EST [facility] (CLIA #:[id number]) Comment: NEGATIVE TEST RESULT. A negative Cologuard [...] (Dioni Kelly al, N Engl J Med 2014;370(14):2446-3370) The normal value (reference range) for this assay is negative. COLOGUARD RE-SCREENING RECOMMENDATION: Periodic colorectal cancer screening is an important part of preventive healthcare for asymptomatic individuals at average risk for colorectal cancer. Following a negative Cologuard result, the [place] Cancer Society and U.S. Multi-Society Task Force screening guidelines recommend a Cologuard re-screening interval of 3 years. References: [place] Cancer Society Guideline for Colorectal Cancer Screening: https://www.cancer.org/cancer/wbrji-qchywm-nosyqg/ucnmnbwqt-mnvejzgfk-tnbojkz/ac s-rec ommendations.html.; Santiago DK, Ileana CR, Emery LalaK, Colorectal Cancer Screening: Recommendations for Physicians and Patients from the U.S. Multi-Society Task Force on Colorectal Cancer Screening , Am J Gastroenterology 2017; 112:3509-4999. TEST DESCRIPTION: Composite algorithmic analysis of stool [...] Lua. et al, N Engl J Med 2014;370(14):0856-3701.) Cologuard may produce a false negative or false positive result (no colorectal cancer or precancerous polyp present at colonoscopy follow up). A negative Cologuard test result does not guarantee the absence of CRC or advanced adenoma (pre-cancer). The current Cologuard screening interval is every 3 years. ([place]izen [place] Cancer Society and U.S. Multi-Society Task Force). Cologuard performance data in a 10,000 patient pivotal study using colonoscopy as the reference method can be accessed at the following location: www.[employer].com/results. Additional description of the Cologuard test process, warnings and precautions can be found at www.5k FansogGiveyrd.com. Stool specimen (specimen) 08/09/2024 8:30 AM EST 08/10/2024 2:47 PM EST us Rolanda Thakur MD LAB MOLECULAR DIAGNOSTICS O RDERABLES Final Result [facility] (CLIA #:[id number]) [address] [place] [address], * Hepatitis C Antibody with Reflex to HCV, RNA, Quantitative, Real-Time PCR (07/17/2024 3:20 PM EST) Hepatitis C Antibody Nonreactive Nonreactive [facility] Comment:Antibodies to HCV no t detected; does not exclude early acuteHCV infection. Blood Venous blood specimen / Unknown 07/17/2024 3:20 PM EST 07/17/2024 5:23 PM EST Rolanda Thakur MD LAB BLOOD ORDERABLES Final Result Performing Organization Address [facility] Co de Phone Number [facility] [address] [place] [address] [phone] * Albumin, Random Urine W/Creatinine (07/17/2024 2:55 PM EST) Creatinine, Urine 38.88 mg/dL [facility] Microalbumin Urine <5.0 mg/L [facility] Microalbum Creatinine Ratio Ur TNP <30 ug/mg cr [facility] Comment:Unable to calculate albumin/creatinine ratio due to lowmicroalbumin or creatinine result. Urine (Urine, Random) 07/17/2024 2:55 PM EST 07/17/2024 5:25 PM EST us Rolanda Thakur MD LAB URINE ORDERABLES Final Result Performing Organization Address [facility] Co de Phone Number [facility] [address] [place] [address] [phone] from Last 3 Months or Most Recently Relevant to Health Maintenance Insurance [facility] [place] [address] Care Teams Juke Box Mechanic Relationship Specialty Start Date End Date Rolanda Thakur MD [address] [place] [address] GELY Vanessa [address] PCP - General Internal Medicine 09/19/22
--- OUTSIDE RECORDS SUMMARY | 2025-05-10 07:48 | XMS_ITS | Encounter Summary ---
Author Organization [employer] Address [address] [place] [address] Care Team Providers Care Director [employer] Name Role Phone Rolanda Thakur MD Primary Care Provider [phone]- [phone] Reason for Visit * Reason Onset Date Comments Med Refill 12/26/2024 Encounter Details Date Type Department Care Team ([facility] st Contact Info) Description 12/26/2024 Refill [facility] MED & PEDS [address] [place] [address] Rolanda Thakur MD [address] [place] [address] Anxiety; Benign essential hypertension Social History Tobacco [...] as of this encounter Care Teams Director [employer] Relationship Specialty Start Date End Date Rolanda Thakur MD [address] [place] [address] PCP - General Internal Medicine 09/19/22 documented as of this encounter
--- OUTSIDE RECORDS SUMMARY | 2025-05-10 07:48 | XMS_ITS | Encounter Summary ---
Author Organization [employer] Address [address] [place] [address] Care Team Providers Care Valuation Consultant Name Role Phone Rolanda Thakur MD Primary Care Provider [phone]- [phone] Reason for Visit * Reason Onset Date Comments Call Back Request 11/17/2023 Encounter Details Date Type Department Care Team ([facility] st Contact Info) Description 11/17/2023 Telephone [facility] [address] [place] [address] Rolanda Thakur MD [address] [place], [place] [phone] Call Back Request Social History Tobacco Use [...] Message sent to PCP for review through [employer] portal * Telephone Encounter - Jenny Neff - 11/17/2023 8:06 AM EDT Tc from pt requesting a call back pt stated needs more information and clarifications 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 Please contact pt. documented in this encounter Plan of Treatment Not on file documented as of this encounter Visit Diagnoses Not on filedocumented in this encounter Care Teams Valuation Consultant Relationship Specialty Start Date End Date Rolanda Thakur MD [address] [place] [address] PCP - General Internal Medicine 09/19/22 documented as of this encounter
--- OUTSIDE RECORDS SUMMARY | 2025-05-10 07:48 | XMS_ITS | Encounter Summary ---
Author Organization [employer] Address [address] [address] Care Team Providers Care Hydrodynamics Professor Name Role Phone Rolanda Thakur MD Primary Care Provider [phone]- [phone] Reason for Visit * Reason Onset Date Comments Durable Medical Equipment 04/29/2024 Encounter Details Date Type Department Care Team (Late st Contact Info) Description 04/29/2024 Telephone [facility] MED[facility]INE [address] [place] [address] Rolanda Thakur MD [address] [place], [place] [phone] Durable Medical Equipment Social History Tobacco Use [...] - 04/29/2024 3:34 PM EDT Tc from [facility] stating pt is requesting blood pressure monitor but they don't have a script. If any questions you can contact [facility] at [phone]. documented in this encounter Plan of Treatment Not on file documented as of this encounter Visit Diagnoses Not on filedocumented in this encounter Care Teams Hydrodynamics Professor Relationship Specialty Start Date End Date Rolanda Thakur MD [address] [place] [phone] PCP - General Internal Medicine 09/19/22 documented as of this encounter
--- OUTSIDE RECORDS SUMMARY | 2025-05-10 07:48 | XMS_ITS | Encounter Summary ---
Author Organization [employer] Address [address] [place] [address] Care Team Providers Care Greenhouse Staff Name Role Phone Rolanda Thakur MD Primary Care Provider [phone]- [phone] Encounter Details Date Type Department Care Team ([facility] st Contact Info) Description 10/27/2023 Orders Only [facility] CHC MED & PEDS [address] [place], [place] [phone] Bhavesh Yang, RN [address] [place] [address] Social History Tobacco Use Types Packs/Day Years [...] on filedocumented in this encounter Care Teams Greenhouse Staff Relationship Specialty Start Date End Date Rolanda Thakur MD [address] [place] [address] PCP - General Internal Medicine 09/19/22 documented as of this encounter
--- OUTSIDE RECORDS SUMMARY | 2025-05-10 07:48 | XMS_ITS | Encounter Summary ---
Author Organization [employer] Address [address] [place] [address] Care Team Providers Care Steam Roller Operator Name Role Phone Rolanda Thakur MD Primary Care Provider [phone] Reason for Visit * Reason Onset Date Comments Med Refill 12/26/2024 Encounter Details Date Type Department Care Team ([facility] st Contact Info) Description 12/26/2024 Refill [facility] MED & PEDS [address] [place] [address] Rolanda Thakur MD [address] [place] [address] Acquired hypothyroidism Social History Tobacco Use Types [...] as of this encounter Care Teams Steam Roller Operator Relationship Specialty Start Date End Date Rolanda Thakur MD [address] [place] [address] PCP - General Internal Medicine 09/19/22 documented as of this encounter
--- OUTSIDE RECORDS SUMMARY | 2025-05-10 07:48 | XMS_ITS | Encounter Summary ---
Author Organization [employer] Address [address] [place] [address] Care Team Providers Care Employee Benefits Coordinator Name Role Phone Rolanda Thakur MD Primary Care Provider [phone]- [phone] Encounter Details Date Type Department Care Team ([facility] st Contact Info) Description 05/02/2024 Orders Only [facility] CHC MED & PEDS [address] [place], [place] [phone] Rolanda Thakur MD [address] [place] [address] Anxiety (Primary Dx) Social History Tobacco Use [...] unspecified documented in this encounter Care Teams Employee Benefits Coordinator Relationship Specialty Start Date End Date Rolanda Thakur MD [address] [place] [address] PCP - General Internal Medicine 09/19/22 documented as of this encounter
--- OUTSIDE RECORDS SUMMARY | 2025-05-10 07:48 | XMS_ITS | Encounter Summary ---
Author Organization [employer] Address [address] [place] [address] Care Team Providers Care Deck Worker Name Role Phone Rolanda Thakur MD Primary Care Provider [phone]- [phone] Encounter Details Date Type Department Care Team ([facility] st Contact Info) Description 10/27/[address] [facility] MEDICINE [address] [place] [phone] Rolanda Thakur MD [address] [place] [address] Social History Tobacco Use Types Packs/Day Years [...] on filedocumented in this encounter Care Teams Deck Worker Relationship Specialty Start Date End Date Rolanda Thakur MD [address] [place] [address] PCP - General Internal Medicine 09/19/22 documented as of this encounter
--- OUTSIDE RECORDS SUMMARY | 2025-05-10 07:48 | XMS_ITS | Encounter Summary ---
Author Organization [employer] Address [address] [address] Care Team Providers Care Automatic Embroidery Machine Tender Name Role Phone Rolanda Thakur MD Primary Care Provider [phone]- [phone] Reason for Visit * Reason Onset Date Comments Medication Question 04/04/2024 Encounter Details Date Type Department Care Team ([facility] st Contact Info) Description 04/04/2024 Telephone [facility] MEDICINE [address] [place] [address] Rolanda Thakur MD [address] [place], [place] [phone] Medication Question Social History Tobacco Use Types [...] on filedocumented in this encounter Care Teams Automatic Embroidery Machine Tender Relationship Specialty Start Date End Date Rolanda Thakur MD [address] [place] [address] PCP - General Internal Medicine 09/19/22 documented as of this encounter
--- OUTSIDE RECORDS SUMMARY | 2025-05-10 07:48 | XMS_ITS | Encounter Summary ---
Author Organization [employer] Address [address] [place] [address] [facility] [place] [address] Care Team Providers Care Cashiers Bussers Food Runners Name Role Phone Rolanda Thakur MD Primary Care Provider [phone] Reason for Referral * Consultation (Routine) - Closed Specialty Diagnoses / Procedures Referred By Freddy meadows Referred To Contact Neurology Diagnoses Other polyneuropathy Rolanda Thakur MD [address] [place] [address] Phone: tel: fax: [facility] Neurology [address] [place] [place], [place] Phone: tel: fax: Referral ID Status Reason Start Date Expiration Date V isits Requested Visits Authorized [id number] Closed Specialty Services Required 11/22/2023 11/21/2024 1 1 * Consultation (Routine) - Closed Specialty Diagnoses / Procedures Referred By Freddy meadows Referred To Contact Physiatry Diagnoses Other polyneuropathy Rolanda Thakur MD [address] [place] [address] Phone: tel: fax: Referral ID Status Reason Start Date Expiration Date V isits Requested Visits Authorized [id number] Closed Specialty Services Required 11/17/2023 11/16/2024 1 1 Encounter Details Date Type Department Care Team ([facility] st Contact Info) Description 11/16/2023 Orders Only [facility] CHC MED & PEDS [address] [place] [address] Rolanda Thakur MD [address] [place] [address] Other polyneuropathy (Primary Dx) Social History Tobacco [...] Primary documented in this encounter Care Teams Cashiers Bussers Food Runners Relationship Specialty Start Date End Date Rolanda Thakur MD [address] [place] [address] PCP - General Internal Medicine 09/19/22 documented as of this encounter
--- OUTSIDE RECORDS SUMMARY | 2025-05-10 07:48 | XMS_ITS | Encounter Summary ---
Author Organization [employer] Address [address] [address] Care Team Providers Care Cyber Software Engineer Name Role Phone Rolanda Thakur MD Primary Care Provider +1- [phone] Reason for Visit * Reason Onset Date Comments Nurse Triage 09/24/2024 Encounter Details Date Type Department Care Team ([facility] st Contact Info) Description 09/24/2024 Telephone [facility] MEDICINE [address] [place] [address] Rolanda Thakur MD 505 [place], [place] [phone] Nurse Triage Social History Tobacco Use Types [...] WIC for today as no appts in [facility]. Pt states gets panic attacks if has to wait . Pt advised unfortunately no appts in [facility]> Unable to schedule ahead for WIC. Pt states will seek [facility] on [facility] in [place]. Will send to team as FYI to [...] acuity questions The caller accepted this outcome. [phone] documented in this encounter Plan of Treatment Not on file documented as of this encounter Visit Diagnoses Not on filedocumented in this encounter Additional Health Concerns Assessment Noted Time PHQ-9 Depression Total Score: 2 05/13/20 24 9:24 AM EDT documented as of this encounter Care Teams Cyber Software Engineer Relationship Specialty Start Date End Date Rolanda Thakur MD [address] [place] [address] PCP - General Internal Medicine 09/19/22 documented as of this encounter
--- OUTSIDE RECORDS SUMMARY | 2025-05-10 07:48 | XMS_ITS | Encounter Summary ---
Author Organization [employer] Address [address] [place] [address] Care Team Providers Care Resistance Machine Welder Setter Name Role Phone Rolanda Thakur MD Primary Care Provider +1- [phone] Encounter Details Date Type Department Care Team ([facility] st Contact Info) Description 08/18/2023 Orders Only [facility]C MED & PEDS 505 [place], [place] [phone] Rolanda Thakur MD 505 [place] [address] Social History Tobacco Use Types Packs/Day Years [...] on filedocumented in this encounter Care Teams Resistance Machine Welder Setter Relationship Specialty Start Date End Date Rolanda Thakur MD 505 [place] [address] PCP - General Internal Medicine 09/19/22 documented as of this encounter
--- OUTSIDE RECORDS SUMMARY | 2025-05-10 07:48 | XMS_ITS | Encounter Summary ---
Author Organization [employer] Address [address] [place] [address] Care Team Providers Care Skills Auditor Name Role Phone Rolanda Thakur MD Primary Care Provider +1- [phone] Encounter Details Date Type Department Care Team ([facility] st Contact Info) Description 01/22/2024 Orders Only [facility] CHC MED & PEDS 505 [place], [place] [phone] Rolanda Thakur MD 505 [place] [address] Benign essential hypertension Social History Tobacco Use [...] AM EDT Narrative 02/19/2024 12:38 PM EDT [address] [address] XRay Report Signed Patient: Angely Pineda MR#: [id number] : 1950 Acct:[id number] Age/Sex: 73 / F ADM Date: 02/19/24 Loc: [facility] Attending Dr: Migdalia PALMER Ordering Physician: Migdalia Loza Date of Service: 02/19/24 Procedure(s): XR toe RT min 2V Accession Number(s): [id number] cc: Migdalia Loza EXAMINATION: BILATERAL TOES CLINICAL [...] in OV> 02/19/24 1234 DD/ 1122 TD/TT: Rotary Drier Operator: SS Procedure Note Donotuseinterpreter, Image - 02/19/[address] [address] XRay Report Signed Patient: Angely PinedaMR#: [id number] : [id number]:[id number] Age/Sex: 73 / FADM Date: 02/19/24 Loc: [facility]NA[facility] Attending Dr: Migdalia Loza HOSPICE MUSIC THERAPY Ordering Physician: Migdalia Loza Date of Service: 02/19/24 Procedure(s): XR toe RT min 2V Accession Number(s): [id number] cc: Migdalia Loza HOSPICE MUSIC THERAPY EXAMINATION: BILATERAL TOES CLINICAL INFORMATION: A heavy [...] in OV> 02/19/24 1234 DD/ 1122 TD/TT: Rotary Drier Operator: SS Migdalia Loza HOSPICE MUSIC THERAPY IMG XR PROCEDURES Edited Resul t - Final documented in this encounter Visit Diagnoses Diagnosis Benign essential hypertension Essential hypertension, benign documented in this encounter Care Teams Skills Auditor Relationship Specialty Start Date End Date Rolanda Thakur MD [address] [place] [address] PCP - General Internal Medicine 09/19/22 documented as of this encounter
--- OUTSIDE RECORDS SUMMARY | 2025-05-10 07:48 | XMS_ITS | Encounter Summary ---
Author Organization [employer] Address 75 [facility] 7 [place] [address] Care Team Providers Care Orthopedic Nurse Practitioner Name Role Phone Rolanda Thakur MD Primary Care Provider +1- [phone] Encounter Details Date Type Department Care Team ([facility] Contact Info) Description 10/08/2024 Telephone [facility] CHC MED & PEDS 505 [place] [address] Rolanda Thakur MD 505 [place] [address] Social History Tobacco Use Types Packs/Day Years [...] documented as of this encounter Care Teams Orthopedic Nurse Practitioner Relationship Specialty Start Date End Date Rolanda Thakur MD [address] [place] [address] PCP - General Internal Medicine 09/19/22 documented as of this encounter
--- OUTSIDE RECORDS SUMMARY | 2025-05-10 07:48 | XMS_ITS | Encounter Summary ---
Author Organization [employer] Address [address] [place] [address] Care Team Providers Care Elevator Constructor Electric Name Role Phone Rolanda Thakur MD Primary Care Provider +1- [phone] Reason for Visit * Reason Onset Date Comments Referral 11/16/2023 Encounter Details Date Type Department Care Team ([facility] st Contact Info) Description 11/16/2023 Telephone [facility] CHC MED & PEDS 505 [place], [place] [phone] Rolanda Thakur MD 505 [place] [address] Referral Social History Tobacco Use Types Packs/Day [...] MyChart encounter. Any questions, contact pt at [phone] documented in this encounter Plan of Treatment Not on file documented as of this encounter Visit Diagnoses Not on filedocumented in this encounter Care Teams Elevator Constructor Electric Relationship Specialty Start Date End Date Rolanda Thakur MD [address] [place] [address] PCP - General Internal Medicine 09/19/22 documented as of this encounter
--- OUTSIDE RECORDS SUMMARY | 2025-05-10 07:48 | XMS_ITS | Encounter Summary ---
Author Organization [employer] Address [address] [place] [address] Care Team Providers Care Primary Grade Teacher Name Role Phone Rolanda Thakur MD Primary Care Provider +1 [phone] Reason for Referral * Consultation (Routine) - Closed Specialty Diagnoses / Procedures Referred By Contac t Referred To Contact Endocrinology Diagnoses Type 2 diabetes mellitus without complication, without long-term current use of insulin (CMS/HCC) Rolanda Thakur MD [address] [place] [address] Phone: tel: fax: [facility] [address] [place] [phone] Phone: tel: fax: Referral ID Status Reason Start Date Expiration Date V isits Requested Visits Authorized [id number] Closed Specialty Services Required 08/26/2024 08/26/2025 1 1 Encounter Details Date Type Department Care Team (Late st Contact Info) Description 08/26/2024 Orders Only [facility] MED & PEDS [address] [place] [phone] Rolanda Thakur MD [address] [place] [address] Type 2 diabetes mellitus without complication, without [...] documented as of this encounter Care Teams Primary Grade Teacher Relationship Specialty Start Date End Date Rolanda Thakur MD 505 [place] [address] PCP - General Internal Medicine 09/19/22 documented as of this encounter
--- OUTSIDE RECORDS SUMMARY | 2025-05-10 07:48 | XMS_ITS | Encounter Summary ---
Author Organization [employer] Address [address] [place] [address] Care Team Providers Care Engine Oiler Name Role Phone Rolanda Thakur MD Primary Care Provider +1- [phone] Reason for Visit * Reason Onset Date Comments Referral 09/29/2022 Encounter Details Date Type Department Care Team ([facility] st Contact Info) Description 09/29/2022 Telephone [facility] CHC MED & PEDS 505 [place] [address] Rolanda Thakur MD 505 [place] [address] Referral Social History Tobacco Use Types Packs/Day [...] to fax order to Dr Dempsey on [phone] Dempsey's office on [phone]. Will forward message to provider. RN called Roxanne and gave her the phone and fax number to Dr Dempsey's office and also to f/u when EMG order is placed by PCP. * Telephone Encounter - Machelle Adam RN - 10/03/2022 10:09 AM EST Return call placed to Haylie at [facility], spoke with Jumana who states their office donot see pt for diabetic polyneuropathy but instead sees pt for foot drop or other issue. States Haylieis unavailable at this time but will informed her to call [facility] back if needed. Will forward message to PCP as FYI. * Telephone Encounter - Brinda Barnard - 09/29/2022 1:30 PM EST Tc from Haylie from [facility] med / rehab calling to inform they need more dx clarification for referral that was sent . and phone # [phone] documented in this encounter Plan of Treatment Not on file documented as of this encounter Visit Diagnoses Diagnosis Diabetic polyneuropathy associated with diabetes mellitus due to underlying condition (CMS/[facility])- Primary documented in this encounter Care Teams Engine Oiler Relationship Specialty Start Date End Date Rolanda Thakur MD [address] [place] [address] PCP - General Internal Medicine 09/19/22 documented as of this encounter
--- OUTSIDE RECORDS SUMMARY | 2025-05-10 07:48 | XMS_ITS | Encounter Summary ---
Author Organization [employer] Address [address] [place] [address] Care Team Providers Care Home Appliance Washing Machine Mechanic Name Role Phone Rolanda Thakur MD Primary Care Provider +1- [phone] Reason for Visit * Reason Onset Date Comments Medication Question 12/09/2022 Encounter Details Date Type Department Care Team ([facility] st Contact Info) Description 12/09/2022 Telephone [facility] CHC MED & PEDS 505 [place], [place] [phone] Rolanda Thakur MD 505 [place] [address] Medication Question Social History Tobacco Use Types [...] - 12/09/2022 3:51 PM EDT Tc from [facility] requesting a clarification in new script for Synthroid 50 MCG tablet if dosage was sent incorrectly because in last script (levothyroxine (Synthroid) 150 MCG tablet) it [id number] MCG and New script is it 50 mcg so pharmacy is requesting some clarification Please contact Pharmacy at [phone] documented in this encounter Plan of Treatment Not on file documented as of this encounter Visit Diagnoses Not on filedocumented in this encounter Care Teams Home Appliance Washing Machine Mechanic Relationship Specialty Start Date End Date Rolanda Thakur MD [address] [place] [address] PCP - General Internal Medicine 09/19/22 documented as of this encounter
--- OUTSIDE RECORDS SUMMARY | 2025-05-10 07:48 | XMS_ITS | Encounter Summary ---
Author Organization [employer] Address [address] [place] [address] 7 [place] [address] Care Team Providers Care Evp Sales Name Role Phone Rolanda Thakur MD Primary Care Provider +1- [phone] Reason for Visit * Reason Onset Date Comments Med Refill 12/26/2024 Encounter Details Date Type Department Care Team ([facility] st Contact Info) Description 12/26/2024 Refill [facility] CHC MED & PEDS 505 [place] [address] Maren Hough MD 505 [place] [address] Social History Tobacco Use Types Packs/Day Years [...] documented as of this encounter Care Teams Evp Sales Relationship Specialty Start Date End Date Rolanda Thakur MD [address] [place] [address] PCP - General Internal Medicine 09/19/22 documented as of this encounter
--- OUTSIDE RECORDS SUMMARY | 2025-05-10 07:48 | XMS_ITS | Encounter Summary ---
Author Organization [employer] Address [address] [place] [address] Care Team Providers Care Buckle Gluer Name Role Phone Rolanda Thakur MD Primary Care Provider +1- [phone] Reason for Visit * Reason Onset Date Comments Medication Question 12/08/2022 Encounter Details Date Type Department Care Team ([facility] st Contact Info) Description 12/08/2022 Telephone [facility] CHC MED & PEDS [address] [place], [place] [phone] Rolanda Thakur MD 505 [place] [address] Medication Question Social History Tobacco Use Types [...] on filedocumented in this encounter Care Teams Buckle Gluer Relationship Specialty Start Date End Date Rolanda Thakur MD [address] [place] [address] PCP - General Internal Medicine 09/19/22 documented as of this encounter
--- OUTSIDE RECORDS SUMMARY | 2025-05-10 07:48 | XMS_ITS | Encounter Summary ---
Author Organization [employer] Address 75 [facility] 7t [place] [address] Care Team Providers Care Packaging Specialist Name Role Phone Rolanda Thakur MD Primary Care Provider +1 [phone] Encounter Details Date Type Department Care Team ([facility] st Contact Info) Description 12/18/2024 Orders Only [facility] CHC MED & PEDS [address] [place] [address] ProviderChema MD Social History Tobacco Use Types [...] documented as of this encounter Care Teams Packaging Specialist Relationship Specialty Start Date End Date Rolanda Thakur MD [address] [place] [address] PCP - General Internal Medicine 09/19/22 documented as of this encounter
--- OUTSIDE RECORDS SUMMARY | 2025-05-10 07:48 | XMS_ITS | Encounter Summary ---
Author Organization [employer] Address [address] [address] Care Team Providers Care Vacuum Cleaner Repair Person Name Role Phone Rolanda Thakur MD Primary Care Provider +1- [phone] Reason for Visit * Reason Onset Date Comments Med Refill 12/26/2024 Encounter Details Date Type Department Care Team (Late st Contact Info) Description 12/26/2024 Refill [facility] 230 [place] [address] Rolanda Tahkur MD 505 [place] [address] Social History Tobacco Use Types Packs/Day Years [...] documented as of this encounter Care Teams Vacuum Cleaner Repair Person Relationship Specialty Start Date End Date Rolanda Thakur MD [address] [place] [address] PCP - General Internal Medicine 09/19/22 documented as of this encounter
--- OUTSIDE RECORDS SUMMARY | 2025-05-10 07:48 | XMS_ITS | Encounter Summary ---
Author Organization [employer] Address [address] [place] [address] Care Team Providers Care Risk Prevention Engineer Name Role Phone Rolanda Thakur MD Primary Care Provider +1 [phone] Reason for Referral * Consultation (Routine) - Closed Specialty Diagnoses / Procedures Referred By Contac t Referred To Contact Podiatry Diagnoses Type 2 diabetes mellitus without complication, without long-term current use of insulin (CMS/HCC) Rolanda Thakur MD 505 [place] [address] Phone: tel: fax: Carl Avitia DPM Phone: tel: fax: Referral ID Status Reason Start Date Expiration Date V isits Requested Visits Authorized [id number] Closed Specialty Services Required 11/01/2023 10/31/2024 1 1 Encounter Details Date Type Department Care Team (Late st Contact Info) Description 10/23/2023 Orders Only [facility] CHC MED & PEDS [address] [place] [address] Rolanda Thakur MD 505 [place] [address] Acquired hypothyroidism (Primary Dx); Type 2 diabetes [...] (CMS/HCC) documented in this encounter Care Teams Risk Prevention Engineer Relationship Specialty Start Date End Date Rolanda Thakur MD [address] [place] [address] PCP - General Internal Medicine 09/19/22 documented as of this encounter
--- OUTSIDE RECORDS SUMMARY | 2025-05-10 07:48 | XMS_ITS | Encounter Summary ---
Author Organization [employer] Address [address] [place] [address] Care Team Providers Care Rotary Shear Worker Helper Name Role Phone Rolanda Thakur MD Primary Care Provider +1- [phone] Reason for Visit * Reason Onset Date Comments Med Refill 10/27/2023 Encounter Details Date Type Department Care Team (Late st Contact Info) Description 10/27/2023 Telephone [facility] MEDICINE 230 [place] [address] Rolanda Thakur MD 505 [place], [place] [phone] Med Refill Social History Tobacco Use Types [...] on medication 125 Please contact pt @ [phone] No meds. * Telephone Encounter - Haylie Cantor RN - 10/27/2023 3:44 PM EST Patient reporting alternating days of synthroid 125 mcg and synthroid 137 mcg. Requesting new script for synthroid 125 mcg. Please review and advise, thanks. Tc from pt requesting levothyroxine (Synthroid) 125 MCG tablet, filing writer do not see med in chart but pt stated has been taking this medication for 10 years, pt switch 137 and 125 every day, filing writer attempted to contact pharmacy for clarifications but [facility] [address] open at 9:00AM. * Telephone Encounter - Jenny Neff - 10/27/2023 8:31 AM EST Tc from pt requesting levothyroxine (Synthroid) 125 MCG tablet, filing writer do not see med in chart but pt stated has been taking this medication for 10 years, pt switch 137 and 125 every day, filing writer attempted to contact pharmacy for clarifications but [facility] [address] open at 9:00AM. documented in this encounter Plan of Treatment Not on file documented as of this encounter Visit Diagnoses Not on filedocumented in this encounter Care Teams Rotary Shear Worker Helper Relationship Specialty Start Date End Date Rolanda Thakur MD [address] [place] [address] PCP - General Internal Medicine 09/19/22 documented as of this encounter
--- OUTSIDE RECORDS SUMMARY | 2025-05-10 07:48 | XMS_ITS | Encounter Summary ---
Author Organization [employer] Address [address] [address] Care Team Providers Care Arborist Name Role Phone Rolanda Thakur MD Primary Care Provider +1- [phone] Reason for Visit * Reason Comments Med Refill Encounter Details Date Type Department Care Team ([facility] st Contact Info) Description 08/27/2024 Refill [facility] MEDICINE [address] [place] [address] Rolanda Thakur MD [address] [place], [place] [phone] Type 2 diabetes mellitus without complication, without long-term current use of insulin ([facility]) Social History Tobacco Use Types Packs/Day Years [...] current use of insulin ([facility]) documented in this encounter Additional Health Concerns Assessment Noted Time PHQ-9 Depression Total Score: 2 05/13/20 24 9:24 AM EDT documented as of this encounter Care Teams Arborist Relationship Specialty Start Date End Date Rolanda Thakur MD [address] [place] [address] PCP - General Internal Medicine 09/19/22 documented as of this encounter
--- OUTSIDE RECORDS SUMMARY | 2025-05-10 07:48 | XMS_ITS | Encounter Summary ---
Author Organization [employer] Address [address] [place] [address] Care Team Providers Care Route Sales Manager Name Role Phone Rolanda Thakur MD Primary Care Provider +1- [phone] Encounter Details Date Type Department Care Team ([facility] st Contact Info) Description 04/08/2024 Orders Only [facility] [address] [place], [place] [phone] Rolanda Thakur MD 505 [place] [address] UTI symptoms (Primary Dx) Social History Tobacco [...] Primary documented in this encounter Care Teams Route Sales Manager Relationship Specialty Start Date End Date Rolanda hTakur MD 505 [place] [address] PCP - General Internal Medicine 09/19/22 documented as of this encounter
--- OUTSIDE RECORDS SUMMARY | 2025-05-10 07:48 | XMS_ITS | Encounter Summary ---
Author Organization [employer] Address [address] [place] [address] Care Team Providers Care Twisting Frame Fixer Name Role Phone Rolanda Thakur MD Primary Care Provider +1- [phone] Encounter Details Date Type Department Care Team [...] on filedocumented in this encounter Care Teams Twisting Frame Fixer Relationship Specialty Start Date End Date Rolanda Thakur MD 505 [facility] [place] [address] PCP - General Internal Medicine 09/19/22 documented as of this encounter
--- OUTSIDE RECORDS SUMMARY | 2025-05-10 07:48 | XMS_ITS | Encounter Summary ---
Author Organization [employer] Address [address] [place] [address] 7 [place] [address] Care Team Providers Care Green Hide Inspector Name Role Phone Rolanda Thakur MD Primary Care Provider +1- [phone] Encounter Details Date Type Department Care Team ([facility] st Contact Info) Description 09/23/2024 Orders Only [facility] MED & PEDS [address] [place] [address] Rolanda Thakur MD [address] [place] [address] Acquired hypothyroidism (Primary Dx); Benign essential hypertension [...] EST) Aldosterone 2 see note ng/dL [facility] Comment:Unable to flag abnor mal result(s), please refer to reference range(s) below:Adult Reference Ranges for Aldosterone, LC/MS/MS: Upright 8:00 - 10:00 am < or = 28 ng/dL Upright 4:00 - 6:00 pm < or = 21 ng/dL Supine 8:00 - 10:00 am 3 - 16 ng/dLTHIS TEST WAS PERFORMED AT:[employer] [id number] [place] [address]FUEVKEWTHEO PEDERSEN MD,PHD Plasma Renin Activity 0.52 0.25 - 5.82 ng/mL/h [facility] Aldosterone/Renin Ratio 3.8 0.9 - 28.9 Ratio [facility] Comment:This test was develo ped and its analytical performancecharacteristics have been determined by [employer] [place], [place]. It hasnot been cleared or approved by the U.S. Food and DrugAdministration. This assay has been validated pursuantto the CLIA regulations and is used for clinicalpurposes.THIS TEST WAS PERFORMED AT:[employer] [id number] [place] [address]ASGLLMTTHEO PEDERSEN MD,PHD Blood Venous blood specimen / Unknown 09/24/2024 1:40 PM EST 09/24/2024 4:21 PM EST Rolanda Thakur MD LAB BLOOD ORDERABLES Final Result [facility] [address] [place] [phone] * TSH W/Reflex to FT4 (09/24/2024 1:40 PM EST) TSH reflex Free T4 0.38 0.32 - 4.0 uIU/mL [facility] Blood Venous blood specimen / Unknown 09/24/2024 1:40 PM EST 09/24/2024 4:21 PM EST us Rolnada Thakur MD LAB BLOOD ORDERABLES Final Result Performing Organization Address [facility]/ZIP Co de Phone Number [facility] [address] [place] [phone] * (ABNORMAL) Basic Metabolic Panel, Fasting (09/24/2024 1:40 PM EST) Sodium 139 135 - 145 mmol/L [facility] Potassium 3.8 3.3 - 5.1 mmol/L [facility] Chloride 106 96 - 108 mmol/L [facility] Carbon Dioxide 22 22 - 29 mmol/L [facility] Anion Gap 15 12 - 20 [facility] Urea Nitrogen (BUN) 13 9 - 16 mg/dL [facility] Creatinine, Serum 0.94 0.5 - 1.4 mg/dL [facility] Estimated Glomerular Filt Rate 58 [facility] Comment:Chronic Kidney Disea se: Estimated GFR < 60 mL/min/1.55i5Xzoipr Kidney Disease: Estimated GFR < 15 mL/min/1.73m2 Glucose Fasting 169(H) 60 - 99 mg/dL [facility] Comment:A fasting glucose of 126 mg/dl or greater on more than oneoccasion is considered diagnostic of diabetes. Calcium 9.9 8.4 - 10.2 mg/dL [facility] Blood Venous blood specimen / Unknown 09/24/2024 1:40 PM EST 09/24/2024 4:21 PM EST us Rolanda Thakur MD LAB BLOOD ORDERABLES Final Result Performing Organization Address City/[facility]/ZIP Co de Phone Number [facility] [address] [place] [phone] * (ABNORMAL) CBC auto differential (09/24/2024 1:40 PM EST) White Blood Count 7.0 4.8 - 10.8 X10*3/uL [facility] Red Blood Count 4.23 4.20 - 5.50 X10*6/uL [facility] Hemoglobin 12.6 12.0 - 16.0 g/dl [facility] Hematocrit 37.0 37.0 - 47.0 % [facility] Mean Corpuscular Volume 87.5 80.0 - 98.0 fL [facility] Mean Corpuscular Hemoglobin 29.8 27.0 - 33.0 pg [facility] Mean Corpuscular HGB Conc 34.1 31.0 - 35.0 g/dl [facility] Red Cell Distribution Width 12.8 11.0 - 16.0 % [facility] Platelet Count 251 160 - 400 X10*3/uL [facility] Mean Platelet Volume 9.5 9.4 - 12.3 fL [facility] Neutrophils Percent Auto 59.8 45 - 73 % [facility] Imm Gran Pct Auto 0.3 0.0 - 0.4 % [facility] Lymphocytes Percent Auto 26.1 20 - 40 % [facility] Monocytes Percent Auto 8.6 2 - 11 % [facility] Eosinophils Percent Auto 4.3(H) 0 - 4 % [facility] Basophils Percent Auto 0.9 0 - 2 % [facility] NRBC Pct Auto 0.0 0.0 - 0.2 /100WBC [facility] Neutrophils Absolute Auto 4.2 2.0 - 8.3 x10*3/uL [facility] Imm Gran Abs Auto 0.02 0.00 - 0.03 X10*3/uL [facility] Lymphocytes Absolute Auto 1.8 1.2 - 4.9 X10*3/uL [facility] Monocytes Absolute Auto 0.6 0.1 - 1.2 X10*3/uL [facility] Eosinophils Absolute Auto 0.3 0.0 - 0.4 X10*3/uL [facility] Basophils Absolute Auto 0.1 0.0 - 0.2 X10*3/uL [facility] NRBC Abs Auto 0.000 0.0 - 0.012 X10*3/uL [facility] Blood Venous blood specimen / Unknown 09/24/2024 1:40 PM EST 09/24/2024 4:21 PM EST Rolanda Thakur MD LAB BLOOD ORDERABLES Final Result [facility] [address] [place] [phone] documented in this encounter Visit Diagnoses Diagnosis Acquired hypothyroidism- Primary Unspecified hypothyroidism Benign essential hypertension Essential hypertension, benign documented in this encounter Additional Health Concerns Assessment Noted Time PHQ-9 Depression Total Score: 2 05/13/20 24 9:24 AM EDT documented as of this encounter Care Teams Green Hide Inspector Relationship Specialty Start Date End Date Rolanda Thakur MD [address] [place] [address] PCP - General Internal Medicine 09/19/22 documented as of this encounter
--- OUTSIDE RECORDS SUMMARY | 2025-05-10 07:48 | XMS_ITS | Encounter Summary ---
Author Organization [employer] Address [address] [place] [address] Care Team Providers Care Steam Fitter Helper Name Role Phone Rolanda Thakur MD Primary Care Provider +1- [phone] Encounter Details Date Type Department Care Team ([facility] st Contact Info) Description 03/28/2024 Orders Only [facility] CHC MED & PEDS [address] [place], [place] [phone] Karen Alcantar MD [address] [place] [address] Social History Tobacco Use Types Packs/Day Years [...] on filedocumented in this encounter Care Teams Steam Fitter Helper Relationship Specialty Start Date End Date Rolanda Thakur MD [address] [place] [address] PCP - General Internal Medicine 09/19/22 documented as of this encounter
--- OUTSIDE RECORDS SUMMARY | 2025-05-10 07:48 | XMS_ITS | Encounter Summary ---
Author Organization [employer] Address [address] [place] [address] Care Team Providers Care Nutrition Partner Name Role Phone Rolanda Thakur MD Primary Care Provider +1- [phone] Encounter Details Date Type Department Care Team ([facility] st Contact Info) Description 12/07/2023 Telephone [facility] MEDICINE [address] [place] [address] [phone] Rolanda Thakur MD [address] [place] [address] Social History Tobacco Use Types Packs/Day Years [...] on filedocumented in this encounter Care Teams Nutrition Partner Relationship Specialty Start Date End Date Rolanda Thakur MD [address] [place] [address] PCP - General Internal Medicine 09/19/22 documented as of this encounter
--- OUTSIDE RECORDS SUMMARY | 2025-05-10 07:48 | XMS_ITS | Encounter Summary ---
Author Organization [employer] Address [address] [address] Care Team Providers Care Plastics Plater Name Role Phone Rolanda Thakur MD Primary Care Provider +1- [phone] Reason for Visit * Reason Onset Date Comments Nurse Triage 12/12/2023 Encounter Details Date Type Department Care Team ([facility] st Contact Info) Description 12/12/2023 Telephone [facility] MEDICINE [address] [place] [address] Rolanda Thakur MD [address] [place], [place] [phone] Nurse Triage Social History Tobacco Use Types [...] from pt requesting to speak to PCP senior packaging engineercommercial property manager in regards to scheduled sick visit tmr, states was advised to contact PCP before scheduled appt to see how pt is doing, pt stated they still has a severe cough. Golf Course Starter did advised appt is still expected. Pt is scheduled tmr 12/15/23 for ( chest congestion, cough , yellow nasal drainage. ) Please contact at [phone] * Telephone Encounter - Viktoria Schultz RN [...] point. Pt is advised to come to [facility] today to be seen since open till 8pm. PT is not sure if will be able to do that. Golf Course Starter contacted Halyie Barrientos [facility] and asked if would be possible to schedule Pt at [facility] 12/15/23 340pm apt which Pt would [...] on filedocumented in this encounter Care Teams Plastics Plater Relationship Specialty Start Date End Date Rolanda Thakur MD [address] [place] [phone] PCP - General Internal Medicine 09/19/22 documented as of this encounter
--- OUTSIDE RECORDS SUMMARY | 2025-05-10 07:48 | XMS_ITS | Encounter Summary ---
Author Organization [email or web address] Address [address] [address] Care Team Providers Care Used Car Manager Name Role Phone Rolanda Thakur MD Primary Care Provider +1- [phone] Reason for Visit * Reason Onset Date Comments FYI 10/11/2024 Encounter Details Date Type Department Care Team ([facility] st Contact Info) Description 10/11/2024 Telephone [facility] MEDICINE [address] [place] [address] Rolanda Thakur MD [address] [place], [place] [phone] FYI Social History Tobacco Use Types Packs/Day [...] documented as of this encounter Care Teams Used Car Manager Relationship Specialty Start Date End Date Rolanda Thakur MD [address] [place] [address] PCP - General Internal Medicine 09/19/22 documented as of this encounter
--- OUTSIDE RECORDS SUMMARY | 2025-05-10 07:48 | XMS_ITS | Encounter Summary ---
Author Organization [employer] Address [address] [place] [address] Care Team Providers Care Machine Bookkeeper Name Role Phone Rolanda Thakur MD Primary Care Provider +1- [phone] Reason for Visit * Reason Onset Date Comments Nurse Triage 01/03/2024 Encounter Details Date Type Department Care Team ([facility] st Contact Info) Description 01/03/2024 Telephone [facility] MEDICINE [address] [place] [address] Rolanda Thakur MD [address] [place], [place] [phone] Nurse Triage Social History Tobacco Use Types [...] on filedocumented in this encounter Care Teams Machine Bookkeeper Relationship Specialty Start Date End Date Rloanda Thakur MD [address] [place] [address] PCP - General Internal Medicine 09/19/22 documented as of this encounter
--- OUTSIDE RECORDS SUMMARY | 2025-05-10 07:48 | XMS_ITS | Encounter Summary ---
Author Organization [employer] Address 75 [facility] 7 [place] [address] Care Team Providers Care Safety Spec Name Role Phone Rolanda Thakur MD Primary Care Provider +1- [phone] Reason for Visit * Reason Onset Date Comments Med Refill 08/19/2024 Encounter Details Date Type Department Care Team (Late st Contact Info) Description 08/19/2024 Refill [facility] [address] [place] [address] Wyatt Huizar MD [address] [place] [address] Neck pain on left side Social History [...] as of this encounter Care Teams Safety Spec Relationship Specialty Start Date End Date Rolanda Thakur MD [address] [place] [address] PCP - General Internal Medicine 09/19/22 documented as of this encounter
--- OUTSIDE RECORDS SUMMARY | 2025-05-10 07:48 | XMS_ITS | Encounter Summary ---
Author Organization [employer] Address [address] [address] Care Team Providers Care Tear Down Matcher Name Role Phone Rolanda Thakur MD Primary Care Provider +1- [phone] Reason for Visit * Reason Onset Date Comments Nurse Triage 08/09/2024 Encounter Details Date Type Department Care Team ([facility] st Contact Info) Description 08/09/2024 Telephone [facility] MEDICINE [address] [place] [address] Rolanda Thakur MD [address] [place], [place] [phone] Nurse Triage Social History Tobacco Use Types [...] precautions and reasons to call back. Reviewed [facility] operating hours and that wait times vary. Protocol Used: Neck Pain or Stiffness (Adult) Protocol-Based Disposition: See in Office or Video Visit Today or Tomorrow Future Appointments Date Time Provider Department Center 08/10/2024 9:40 AM [facility] 2 WALK-IN [facility] Insurance verified as active per Real Time Eligibility in [place]. Positive Triage Question: * Tenderness in front [...] documented as of this encounter Care Teams Tear Down Matcher Relationship Specialty Start Date End Date Rolanda Thakur MD [address] [place] [phone] PCP - General Internal Medicine 09/19/22 documented as of this encounter
--- OUTSIDE RECORDS SUMMARY | 2025-05-10 07:48 | XMS_ITS | Encounter Summary ---
Author Organization [employer] Address [address] [address] Care Team Providers Care Marine Service Station Attendant Name Role Phone Rolanda Thakur MD Primary Care Provider +1- [phone] Reason for Visit * Reason Onset Date Comments Med Refill 12/26/2024 Encounter Details Date Type Department Care Team (Late st Contact Info) Description 12/26/2024 Refill [facility] MEDICINE [address] [place] [address] Rolanda Thakur MD [address] [place], [place] [phone] Neck pain on left side Social History [...] as of this encounter Care Teams Marine Service Station Attendant Relationship Specialty Start Date End Date Rolanda Thakur MD [address] [place] [address] PCP - General Internal Medicine 09/19/22 documented as of this encounter
[2025-05-10 11:10] LABS: MANUAL DIFF FLAG NO
[2025-05-10 11:23] LABS: Hematocrit 35.5 % (37.0-47.0); Hemoglobin 12.2 g/dl (12.0-16.0); Imm Gran Abs Auto 0.01 X10*3/uL (0.00-0.03); Imm Gran Pct Auto 0.1 % (0.0-0.4); Lymphocytes Absolute Auto 2.2 X10*3/uL (1.2-4.9); Mean Corpuscular HGB Conc 34.4 g/dl (31.0-35.0); Mean Corpuscular Hemoglobin 30.0 pg (27.0-33.0); Mean Corpuscular Volume 87.2 fL (80.0-98.0); NRBC Abs Auto 0.000 X10*3/uL (0.0-0.012); NRBC Pct Auto 0.0 /100WBC (0.0-0.2); Platelet Count 199 X10*3/uL (160-400); Red Blood Count 4.07 X10*6/uL (4.20-5.50); White Blood Count 7.0 X10*3/uL (4.8-10.8)
[2025-05-10 11:28] LABS: Hemoglobin A1C 174.8848 umol/L; Total Hemoglobin (HGBA1C) 3271.6213 umol/L
[2025-05-10 11:54] LABS: Alanine Aminotransferase 14 U/L (0-31); Albumin Level 4.2 g/dL (3.5-5.0); Alkaline Phosphatase 63 U/L (39-117); Anion Gap 11 (12-20); Aspartate Amino Transferase 24 U/L (5-31); Blood Urea Nitrogen 25 mg/dL (9-16); Calcium 9.7 mg/dL (8.4-10.2); Carbon Dioxide 22 mmol/L (22-29); Chloride 108 mmol/L (96-108); Cholesterol 177 mg/dL (<200); Estimated Glomerular Filt Rate 48; HDL Cholesterol 60 mg/dL (>40); Potassium 4.1 mmol/L (3.3-5.1); Sodium 137 mmol/L (135-145); Total Protein 6.6 g/dL (6.5-8.0); Triglycerides 70 mg/dL (<150)
[2025-05-10 11:59] LABS: Appearance Urine Clear; Glucose Urine UA Negative (Negative); PH 5.5 (5.0-9.0); Specific Gravity - Urine 1.015 (1.005-1.025); UMIC TRIGGER UA YES
[2025-05-10 13:30] LABS: Microalbum/Creatinine Ratio Ur 14.0 ug/mg cr (<30); Total Protein Urine Random < 7 mg/dL (<12)
== END 2025-05-10 07:43 | disposition home or self-care (01) ==
LOC: HO.HMGCLDS 07:42
PROVIDERS: PCP Internal Medicine; Visit Provider Internal Medicine Endocrinology, Diabetes & Metabolism
DX: E11.9 Type 2 diabetes mellitus without complications (principal); Z87.440 Personal history of urinary (tract) infections
CPT/HCPCS: 36415; 80053; 80061; 81001; 81003; 82043; 82570; 83036; 84156; 84443; 85025; 87086

== ENCOUNTER 2025-05-17 09:11 | Outpatient (AMB) | payer MEDICARE, SELFPAY ==
--- NOTE | 2025-05-17 09:11 | MHC.OFFWIV ---
Intake Vital Signs 05/17/25 09:28 Height 5 ft 4 in Weight 67.132 kg BMI 25.4 BP 144/70 H Blood Pressure Location Lt brachial Position Sitting Pulse 62 Pulse Source Pulse Oximeter Temp 97.8 F Temp Source Oral Pulse Oximetry (%) 97 Oxygen Delivery Method Room Air Intake Visit Reasons: EP UTI Patient Tobacco Use Status: Never used Tobacco Allergies meloxicam Allergy (Mild, Verified 05/17/25 09:28) Dizziness ciprofloxacin Allergy (Verified 05/17/25 09:28) Unknown sulfamethoxazole (From Bactrim) Allergy (Verified 05/17/25 09:28) Unknown trimethoprim (From Bactrim) Allergy (Verified 05/17/25 09:28) Unknown gabapentin (GABAPENTIN) Adverse Reaction (Mild, Verified 05/17/25 09:28) NAUSEA acetaminophen (From PERCOCET) Adverse Reaction (Unknown, Verified 05/17/25 09:28) VOMITTING codeine (CODEINE) Adverse Reaction (Unknown, Verified 05/17/25 09:28) VOMITTING meperidine (From DEMEROL) Adverse Reaction (Unknown, Verified 05/17/25 09:28) VOMITTING morphine (MORPHINE) Adverse Reaction (Unknown, Verified 05/17/25 09:28) CANT OPEN HER EYES oxycodone (From PERCOCET) Adverse Reaction (Unknown, Verified 05/17/25 09:28) VOMITTING scallops (SCALLOPS) Adverse Reaction (Unknown, Verified 05/17/25 09:28) ABD PAIN Do you need a note to return to daycare/school/sports/work: No HPI EP UTI HPI Details 74 year old female hx of htn, hld, hypothyroidism presents w/ urinary frequency, urgency, foul smelling urine X few weeks. Recently finished a course of cipro however sx still present . Deneis back pain, fevers, chills, abd pain , nausea, vomiting, headache, vision changes, dizziness and weakness. Scheduled to see urology on july 15 PE benign Hx and pe concerning for uti/cystits. 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 Tobacco Use Status: Never used Tobacco Review of Systems Const Details: Constitutional : No Weight loss, No Fever, No Chills, No Fatigue, No Malaise ENT/Mouth : No sore throat, No Rhinorrhea Eyes: No Eye Pain, No Swelling, No Redness Cardiovascular : No Chest Pain, No SOB, No Dyspnea on Exertion, No Orthopnea, No Edema, No Palpitations Respiratory : No Cough, No Sputum, No Wheezing Gastrointestinal : No Nausea, No Vomiting, No Diarrhea, No Constipation, No abdominal Pain, No Hematochezia, No Melena Genitourinary : No Dysuria, No Urinary Frequency, No Hematuria, Musculoskeletal : No joint pain, No Myalgias, No Joint Swelling Skin : No Skin Lesions, No rash Neuro : No Weakness, No Numbness, No Dizziness, No Headache Psych : No Anxiety/Panic, No Depression Heme/Lymph: No Bruising, No Bleeding,No Lymphadenopathy Endocrine : No Polyuria, No Polydipsia All other systems reviewed and are negative All systems reviewed & are unremarkable except as noted in HPI and below Physical Exam Exam Exam: Appearance: Alert.? Oriented X3.? No acute distress.? Head: Normocephalic, atraumatic, no step-offs or deformities Eyes: Pupils equal, round and reactive to light.? Neck: Normal inspection.? Neck supple.? CVS: Normal heart rate and rhythm.? Pulses normal.? Respiratory: No respiratory distress.? Breath sounds normal.? Abdomen: Soft and nontender.? Skin: Skin warm and dry.? Normal skin color.? Normal skin turgor.? Extremities: No lower extremity edema.? No calf ttp. 5/5 strength to bilateral upper and lower extremities Back: No midline tenderness, no C-spine tenderness, full range of motion, no CVA tenderness bilaterally Neuro: Oriented X 3.? No motor deficit.? No sensory deficit. CN 2-12 intact Vital Signs: Last Vital Signs Temp 97.8 F 05/17/25 09:28 Pulse 62 05/17/25 09:28 BP 144/70 H 05/17/25 09:28 Pulse Ox 97 05/17/25 09:28 Oxygen Delivery Method Room Air 05/17/25 09:28 BMI result Body Mass Index 25.4 vss Assessment & Plan Assessment & Plan (1) Recurrent UTI: Code(s): N39.0 - Urinary tract infection, site not specified Plan Take your medications as prescribed. If you were prescribed antibiotics today, it is important that you take your medication to their entirety, do not skip any doses, do not finish them early. Follow-up with your primary care provider this week. Go to the emergency department with new or worsening symptoms. In case of emergency call 911 Medications: New phenazopyridine (Pyridium) 200 mg (2 x 100 mg) PO TID 12 tabs 0RF 2 days cefuroxime axetil 250 mg PO BID 14 tabs 0RF 7 days Coding Level of Care Code Est Pt Level 3 (74907) Diagnoses Recurrent UTI N39.0
--- OUTSIDE RECORDS SUMMARY | 2025-05-17 09:14 | XMS_ITS | Encounter Summary ---
Author Organization [employer] Address [address] [place] [address] Care Team Providers Care Tire Balancer Name Role Phone Rolanda Thakur MD Primary Care Provider [phone]- [phone] Reason for Visit * Reason Comments Med Refill Encounter Details Date Type Department Care Team ([facility] st Contact Info) Description 12/03/2024 Refill [facility] CHC MED & PEDS [address] [place], [place] [phone] Rolanda Thakur MD [address] [place] [address] Diabetic polyneuropathy associated with type 2 diabetes [...] as of this encounter Care Teams Tire Balancer Relationship Specialty Start Date End Date Rolanda Thakur MD [address] [place] [address] PCP - General Internal Medicine 09/19/22 documented as of this encounter
--- OUTSIDE RECORDS SUMMARY | 2025-05-17 09:14 | XMS_ITS | Clinical Summary ---
Author Organization [facility] Address [address] [place] [address] Care Team Providers Care Water Tanker Driver Name Role Phone Maren Hough MD Primary Care Provider [phone] Social History Tobacco Use Types Packs/Day Years [...] patient's age to complete this topic Insurance [facility] Medicare [facility] Medicare Care Teams Water Tanker Driver Relationship Specialty Start Date End Date Maren Hough MD [address] [place] [address] PCP - General Family Medicine 06/20/22
--- OUTSIDE RECORDS SUMMARY | 2025-05-17 09:14 | XMS_ITS | Encounter Summary ---
Author Organization [employer] Address [address] [place] [address] Care Team Providers Care Energy Crop Farmer Name Role Phone Rolanda Thakur MD Primary Care Provider +1- [phone] Reason for Visit * Reason Onset Date Comments Med Refill 04/17/2025 Encounter Details Date Type Department Care Team ([facility] st Contact Info) Description 04/17/2025 Telephone [facility] CHC MED & PEDS [address] [place] [address] Rolanda Thakur MD [address] [place] [address] Med Refill Social History Tobacco Use Types [...] 125 MCG tablet To be sent [id number] [place] [facility] [address] [facility] Pt has no more medication [...] documented as of this encounter Care Teams Energy Crop Farmer Relationship Specialty Start Date End Date Rolanda Thakur MD [address] [place] [address] [place] [address] PCP - General Internal Medicine 09/19/22 documented as of this encounter
--- OUTSIDE RECORDS SUMMARY | 2025-05-17 09:14 | XMS_ITS | Encounter Summary ---
Author Organization [employer] Address [address] [address] Care Team Providers Care Acoustical Tile Carpenters Supervisor Name Role Phone Rolanda Thakur MD Primary Care Provider +1- [phone] Reason for Visit * Reason Onset Date Comments Nurse Triage 04/17/2025 Encounter Details Date Type Department Care Team ([facility] st Contact Info) Description 04/17/2025 Telephone [facility] MEDICINE [address] [place] [address] Rolanda Thakur MD [address] [place], [place] [phone] Nurse Triage Social History Tobacco Use Types [...] to Angely Pineda to triage below at [phone]. Having urinary frequency and flankpain 10/28. Denies any pelvic pain, N/V, fever or pain. No dark color or odor. Pt states unable to come into office tomorrow due to working until 4:30pm. Pt wants PCP to place UA and cx order to be sent to [facility] labs. Pt advised will send request but also reminded that our [facility] is open on Monday 9a-1p [...] documented as of this encounter Care Teams Acoustical Tile Carpenters Supervisor Relationship Specialty Start Date End Date Rolanda Thakur MD [address] [place] [address] PCP - General Internal Medicine 09/19/22 documented as of this encounter
--- OUTSIDE RECORDS SUMMARY | 2025-05-17 09:14 | XMS_ITS | Encounter Summary ---
Author Organization [employer] Address [address] [place] [address] Care Team Providers Care Security Nurse Name Role Phone Rolanda Thakur MD Primary Care Provider [phone]- [phone] Reason for Visit * Reason Onset Date Comments Med Refill 05/08/2025 Encounter Details Date Type Department Care Team ([facility] st Contact Info) Description 05/08/2025 Refill [facility] MED & PEDS [address] [place] [address] Rolanda Thakur MD [address] [place] [address] Recent urinary tract infection Social History Tobacco [...] documented as of this encounter Care Teams Security Nurse Relationship Specialty Start Date End Date Rolanda Thakur MD [address] [place] [address] PCP - General Internal Medicine 09/19/22 documented as of this encounter
--- OUTSIDE RECORDS SUMMARY | 2025-05-17 09:14 | XMS_ITS | Encounter Summary ---
Author Organization [employer] Address 75 [facility] 7 [place] [address] Care Team Providers Care Variety Saw Operator Name Role Phone Rolanda Thakur MD Primary Care Provider +1- [phone] Encounter Details Date Type Department Care Team ([facility] Contact Info) Description 12/02/2024 Telephone [facility] MED & PEDS [address] [place], [place] [phone] Rolanda Thakur MD 505 [place] [address] Social History Tobacco Use Types Packs/Day Years [...] documented as of this encounter Care Teams Variety Saw Operator Relationship Specialty Start Date End Date Rolanda Thakur MD [address] [place] [phone] PCP - General Internal Medicine 09/19/22 documented as of this encounter
--- OUTSIDE RECORDS SUMMARY | 2025-05-17 09:14 | XMS_ITS | Encounter Summary ---
Author Organization [employer] Address [address] [place] [address] Care Team Providers Care Night Supervisor Name Role Phone Rolanda Thakur MD Primary Care Provider +1- [phone] Reason for Referral * Consultation (Routine) - Authorized Specialty Diagnoses / Procedures Referred By Contac t Referred To Contact Pharmacy Diagnoses Type 2 diabetes mellitus without complication, without long-term current use of insulin (CMS/HCC) Rolanda Thakur MD [address] [place] [phone] Phone: tel: fax: Referral ID Status Reason Start Date Expiration Date Visits Requested Visits Authorized [id number] Authorized Consult and Treat 04/14/2025 04/14/2026 6 6 Encounter Details Date Type Department Care Team (Late st Contact Info) Description 04/14/2025 Orders Only [facility] MED & PEDS [address] [place] [address] Rolanda Thakur MD 505 [place] [address] Type 2 diabetes mellitus without complication, without [...] complication, without long-term current use of insulin ([facility]) Recent urinary tract infection Expected: 04/18/2025 (Approximate), [...] complication, without long-term current use of insulin ([facility]) Recent urinary tract infection documented in this encounter Results * (ABNORMAL) Urinalysis, Complete, with Reflex to Culture (04/30/2025 8:37 AM EDT) Color Urine Dark Yellow [facility] Appearance Urine Clear [facility] PH 6.5 5.0 - 9.0 [facility] Glucose Urine UA Negative Negative mg/dL [facility] Urine Blood Negative Negative [facility] Specific [place] - Urine 1.010 1.005 - 1.025 [facility] Urine Protein Negative Neg-Trace mg/dL [facility] Urine Ketones Negative Negative mg/dL [facility] Nitrite Urine Negative Negative [facility] Leukocyte Esterase Urine Small (1+)(A) Negative [facility] RBC Urine 0-2 0 - 2 /HPF [facility] Urine WBC 0-5 0 - 5 /HPF [facility] Urine Squamous Epithelial Cell 0-2 0 - 2 /HPF [facility] Urine Bacteria None Seen None Seen [facility] Hyaline Casts, Urine 0-2 0 - 2 /LPF [facility] Urine 04/30/2025 8:37 AM EDT 04/30/2025 1:12 PM EDT Narrative [facility] - 04/30/2025 2:16 PM EDT Urine, Clean Catch us Rolanda Thakur MD LAB URINE ORDERABLES Final Result [facility] [address] [place] [address] [phone] documented in this encounter Visit Diagnoses Diagnosis Type 2 diabetes mellitus without complication, without long-term current use of insulin ([facility])- Primary Recent urinary tract infection documented in this encounter Additional Health Concerns Assessment Noted Time PHQ-9 Depression Total Score: 2 05/13/20 24 9:24 AM EDT documented as of this encounter Care Teams Night Supervisor Relationship Specialty Start Date End Date Rolanda Thakur MD [address] [place] [phone] PCP - General Internal Medicine 09/19/22 documented as of this encounter
--- OUTSIDE RECORDS SUMMARY | 2025-05-17 09:14 | XMS_ITS | Encounter Summary ---
Author Organization [employer] Address [address] [address] Care Team Providers Care Personal Investment Adviser Name Role Phone Rolanda Thakur MD Primary Care Provider +1- [phone] Reason for Visit * Reason Onset Date Comments Call Back Request 11/27/2024 Encounter Details Date Type Department Care Team ([facility] st Contact Info) Description 11/27/2024 Telephone [facility] [address] [place] [address] Rolanda Thakur MD 505 [place], [place] [phone] Call Back Request Social History Tobacco Use [...] documented as of this encounter Care Teams Personal Investment Adviser Relationship Specialty Start Date End Date Rolanda Thakur MD [address] [place] [phone] PCP - General Internal Medicine 09/19/22 documented as of this encounter
--- OUTSIDE RECORDS SUMMARY | 2025-05-17 09:14 | XMS_ITS | Encounter Summary ---
Author Organization [employer] Address [address] [place] [address] Care Team Providers Care Therapist Radiation Name Role Phone Rolanda Thakur MD Primary Care Provider +1- [phone] Reason for Visit * Reason Onset Date Comments CT scan order 07/03/2024 Encounter Details Date Type Department Care Team ([facility] st Contact Info) Description 07/03/2024 Telephone [facility] MED & PEDS [address] [place] [address] Rolanda Thakur MD [address] [place] [address] CT scan order Social History Tobacco Use [...] incorrect location. Pt prefers being seen in [facility]. Please call pt to clarify. documented in this encounter Plan of Treatment Not on file documented as of this encounter Visit Diagnoses Not on filedocumented in this encounter Additional Health Concerns Assessment Noted Time PHQ-9 Depression Total Score: 2 05/13/20 24 9:24 AM EDT documented as of this encounter Care Teams Therapist Radiation Relationship Specialty Start Date End Date Rolanda Thakur MD [address] [place] [phone] PCP - General Internal Medicine 09/19/22 documented as of this encounter
--- OUTSIDE RECORDS SUMMARY | 2025-05-17 09:14 | XMS_ITS | Encounter Summary ---
Author Organization [employer] Address [address] [place] [address] 7 [place] [address] Care Team Providers Care Freezer Unloader Name Role Phone Rolanda Thakur MD Primary Care Provider [phone] Encounter Details Date Type Department [facility] Description 04/18/2025 Orders Only [facility] MED & PEDS [address] [place], [place] [phone] Migdalia Loza FNP [address] [place] [address] Acquired hypothyroidism (Primary Dx); UTI symptoms; Type 2 diabetes mellitus without complication, without long-term current use of insulin ([facility]) Social History Tobacco Use Types Packs/Day Years [...] (04/18/2025 8:39 AM EDT) Color Urine Yellow [facility] Appearance Urine Clear [facility] PH 6.0 5.0 - 9.0 [facility] Glucose Urine UA Negative Negative mg/dL [facility] Urine Blood Negative Negative [facility] Specific [place] - Urine 1.010 1.005 - 1.025 [facility] Urine Protein Negative Neg-Trace mg/dL [facility] Urine Ketones Negative Negative mg/dL [facility] Nitrite Urine Negative Negative [facility] Leukocyte Esterase Urine Small (1+)(A) Negative [facility] RBC Urine 0-2 0 - 2 /HPF [facility] Urine WBC 0-5 0 - 5 /HPF [facility] Urine Squamous Epithelial Cell 0-2 0 - 2 /HPF [facility] Urine Bacteria None Seen None Seen [facility] Hyaline Casts, Urine 0-2 0 - 2 /LPF [facility] Urine 04/18/2025 8:39 AM EDT 04/18/2025 2:25 PM EDT Narrative [facility] - 04/18/2025 4:11 PM EDT [id number], Clean Catch Migdalia Loza FORECLOSURE CLERK LAB URINE ORDERABLES Final Res ult Performing Organization Address City/[facility]/ZIP Co de Phone Number [facility] [address] [place] [phone] * TSH W/Reflex to FT4 (04/18/2025 8:31 AM EDT) TSH reflex Free T4 1.59 0.32 - 4.0 uIU/mL [facility] Blood Venous blood specimen / Unknown 04/18/2025 8:31 AM EDT 04/18/2025 2:28 PM EDT Migdalia Loza FORECLOSURE CLERK LAB BLOOD ORDERABLES Final Res ult Performing Organization Address City/[facility]/ZIP Co de Phone Number [facility] [address] [place] [phone] * Culture, Urine, Routine (04/18/2025 12:00 AM EDT) Urine Urine specimen obtained by clean catch procedure / Unknown 04/18/2025 04/18/2025 Comment:UACC Narrative [facility] - 04/20/2025 9:46 AM EDT Urine Culture Report Result Urine Culture > 100,000 cfu/ml Urine Culture Mixed bacterial hailey characteristic of Urine Culture urogenital contamination. Specimen Source: Urine clean catch Migdalia Loza FORECLOSURE CLERK LAB MICROBIOLOGY - GENERAL ORD ERABLES Final Result [facility] [address] [place] [phone] [phone] documented in this encounter Visit Diagnoses Diagnosis Acquired hypothyroidism- Primary Unspecified hypothyroidism UTI symptoms Type 2 diabetes mellitus without complication, without long-term current use of insulin ([facility]) documented in this encounter Additional Health Concerns Assessment Noted Time PHQ-9 Depression Total Score: 2 05/13/20 24 9:24 AM EDT documented as of this encounter Care Teams Freezer Unloader Relationship Specialty Start Date End Date Rolanda Thakur MD [address] [place] [phone] PCP - General Internal Medicine 09/19/22 documented as of this encounter
--- OUTSIDE RECORDS SUMMARY | 2025-05-17 09:14 | XMS_ITS | Encounter Summary ---
Author Organization [employer] Address [address] [place] [address] Care Team Providers Care Winding Machine Operator Name Role Phone Rolanda Thakur MD Primary Care Provider +1- [phone] Reason for Visit * Reason Onset Date Comments Med Refill 04/16/2025 Encounter Details Date Type Department Care Team ([facility] st Contact Info) Description 04/16/2025 Refill [facility] MED & PEDS [address] [place] [address] Rolanda Thakru MD 505 [place] [address] Acquired hypothyroidism Social History Tobacco Use Types [...] documented as of this encounter Care Teams Winding Machine Operator Relationship Specialty Start Date End Date Rolanda Thakur MD [address] [place] [phone] PCP - General Internal Medicine 09/19/22 documented as of this encounter
--- OUTSIDE RECORDS SUMMARY | 2025-05-17 09:14 | XMS_ITS | Encounter Summary ---
Author Organization [employer] Address [address] [place] [address] 7 [place] [address] Care Team Providers Care Farm Facility Manager Name Role Phone Rolanda Thakur MD Primary Care Provider +1- [phone] Encounter Details Date Type Department Care Team ([facility] st Contact Info) Description 03/06/2025 Orders Only [facility] MED & PEDS [address] [place], [place] [phone] Rolanda Thakur MD 505 [place] [address] Type 2 diabetes mellitus without complication, without long-term current use of insulin ([facility]) (Primary Dx) Social History Tobacco [...] without long-term current use of insulin ([facility])- Primary documented in this encounter Additional Health Concerns Assessment Noted Time PHQ-9 Depression Total Score: 2 05/13/20 24 9:24 AM EDT documented as of this encounter Care Teams Farm Facility Manager Relationship Specialty Start Date End Date Rolanda Thakur MD 505 [place] [address] PCP - General Internal Medicine 09/19/22 documented as of this encounter
--- OUTSIDE RECORDS SUMMARY | 2025-05-17 09:14 | XMS_ITS | Encounter Summary ---
Author Organization [employer] Address [address] [place] [address] Care Team Providers Care Capsule Maker Name Role Phone Rolanda Thakur MD Primary Care Provider +1- [phone] Reason for Visit * Reason Onset Date Comments Referral 05/18/2023 Encounter Details Date Type Department Care Team ([facility] st Contact Info) Description 05/18/2023 Telephone [facility] MED & PEDS [address] [place] [address] Rolanda Thakur MD [address] [place] [address] Referral Social History Tobacco Use Types Packs/Day [...] used to see Dr. Chad Dempsey from [facility] butnow the office doesn't take her insurance. [...] advise. Also sent you her response from [employer]. Thanks. * Telephone Encounter - Annabella Peña [...] to Specialty: ([facility]) Dr nolasco Date&Time: N/a Tag Meter Operator: n/a Please call pt to clarify documented in this encounter Plan of Treatment Not on file documented as of this encounter Visit Diagnoses Not on filedocumented in this encounter Care Teams Capsule Maker Relationship Specialty Start Date End Date Rolanda Thakur MD [address] [place] [phone] PCP - General Internal Medicine 09/19/22 documented as of this encounter
--- OUTSIDE RECORDS SUMMARY | 2025-05-17 09:14 | XMS_ITS | Encounter Summary ---
Author Organization [employer] Address [address] [place] [address] Care Team Providers Care Shaping Machine Operator Name Role Phone Rolanda Thakur MD Primary Care Provider +1- [phone] Encounter Details Date Type Department Care Team ([facility] st Contact Info) Description 05/01/2023 Orders Only [facility] MED & PEDS [address] [place] [address] Rolanda Thakur MD 505 [place] [address] Diabetic polyneuropathy associated with type 2 diabetes [...] type 2 diabetes mellitus ([facility]/HCC) TSH W/REFLEX TO FT4 Routine 05/08/2023 1 1:04 AM EDT Diabetic polyneuropathy associated with type 2 diabetes mellitus ([facility]/HCC) CBC WITH AUTO DIFFERENTIAL Routine 05/08/2023 11:04 AM EDT Diabetic polyneuropathy associated with type 2 diabetes mellitus ([facility]/HCC) HEMOGLOBIN A1C Routine 05/08/2023 11:04 AM EDT Diabetic polyneuropathy associated with type 2 diabetes mellitus ([facility]/HCC) HEPATIC FUNCTION PANEL Routine 05/08/2023 11:04 AM EDT Diabetic polyneuropathy associated with type 2 diabetes mellitus ([facility]/HCC) LIPID PANEL, STANDARD Routine 05/08/2023 11:04 AM EDT Diabetic polyneuropathy associated with type 2 diabetes mellitus ([facility]/HCC) BASIC METABOLIC PANEL Routine 05/08/2023 11:04 AM EDT Diabetic polyneuropathy associated with type 2 diabetes mellitus ([facility]/HCC) documented in this encounter Results * (ABNORMAL) Hemoglobin A1c (05/08/2023 11:04 AM EDT) Hemoglobin A1c 6.1(H) <6.0 % [facility] Comment:Hemoglobin A1C Refer ence Range Adults: 4.8 - 6.0 % Non diabetic: < 6.0 % Goal: < 7.0 %Additional Action Suggested: > 8.0 %Note: Hemoglobin A1c results are invalid for patients with abnormal amounts of HbF. Blood transfusions may impact the HbA1c concentration in the patient sample. Estimated Average Glucose 128 mg/dL [facility] Comment:eAG = Estimated ave rage glucose which is %A1C expressed asaverage glucose, using the formula of the Z3C-AxgtzhfWzxwioy Glucose study (ADAG), Diabetes Care, Vol.31,#8,Mar. 2007 Blood Venous blood specimen / Unknown 05/08/2023 11:04 AM EDT 05/08/2023 1:46 PM EDT Rolanda Thakur MD LAB BLOOD ORDERABLES Final Result Performing Organization Address City/[facility]/ZIP Co de Phone Number [facility] [address] [place] [phone] * Vitamin D, 25-Hydroxy, Total, Immunoassay (05/08/2023 11:04 AM EDT) Vitamin D 25-OH Total 84.6 >30 ng/mL [facility] Comment:Health Based Referen ce Values*< 20 ng/mL [id number] ng/mL Insufficient> 30 ng/mL Sufficient*Arabella MCALLISTER. N [...] ORDERABLES Final Result Performing Organization Address [facility] Co de Phone Number [facility] [address] [place] [phone] * Hepatic Function Panel (05/08/2023 11:04 AM EDT) Bilirubin, Total 0.5 0.0 - 1.0 mg/dL [facility] Bilirubin, Direct 0.2 0.0 - 0.5 mg/dL [facility] Aspartate Amino Transferase 22 5 - 31 U/L [facility] Alanine Aminotransferase 18 0 - 31 U/L [facility] Total Protein 7.1 6.5 - 8.0 g/dL [facility] Albumin Level 4.4 3.5 - 5.0 g/dL [facility] Alkaline Phosphatase 70 39 - 117 U/L [facility] Blood Venous blood specimen / Unknown 05/08/2023 11:04 AM EDT 05/08/2023 1:47 PM EDT us Rolanda Thakur MD LAB BLOOD ORDERABLES Final Result [facility] [address] [place] [phone] * (ABNORMAL) Lipid Panel, Standard (05/08/2023 11:04 AM EDT) Triglycerides 110 <150 mg/dL [facility] Comment:Desirable Triglyceri de: less than 150 mg/dLBorderline High Triglyceride 150-199 mg/dLHigh Triglyceride: 200-499 mg/dLVery High Triglyceride: greater than or equal to 5OO mg/dL Cholesterol 198 <200 mg/dL [facility] Comment:Desirable Cholestero l: less than 200 mg/dLBorderline High Cholesterol: 200-239 mg/dLHigh Cholesterol: greater than 239 mg/dL LDL Cholesterol Calculated 121(H) <100 mg/dL [facility] Comment:Desirable LDL: less than 100 mg/dLNear Optimal/Above Optimal LDL: 110- 129 mg/dLBorderline High LDL: 130-159 mg/dLHigh LDL: 160-189 mg/dLVery High LDL: greater than or equal to 190 mg/dL HDL Cholesterol 55 >40 mg/dL [facility] Comment:Desirable HDL: great er than 40 mg/dL Note: This HDL assay may give artificially low results in patients with liver disease. Blood Venous blood specimen / Unknown 05/08/2023 11:04 AM EDT 05/08/2023 1:47 PM EDT Rolanda Thakur MD LAB BLOOD ORDERABLES Final Result Performing Organization Address City/[facility]/ZIP Co de Phone Number [facility] [address] [place] [phone] * TSH W/Reflex to FT4 (05/08/2023 11:04 AM EDT) TSH reflex Free T4 0.53 0.32 - 4.0 uIU/mL [facility] Blood 05/08/2023 11:0 4 AM EDT 05/08/2023 1:47 PM EDT us Rolanda Thakur MD LAB BLOOD ORDERABLES Final Result Performing Organization Address [facility] Co de Phone Number [facility] [address] [place] [phone] * (ABNORMAL) Basic Metabolic Panel (05/08/2023 11:04 AM EDT) Sodium 137 135 - 145 mmol/L [facility] Potassium 4.4 3.3 - 5.1 mmol/L [facility] Chloride 108 96 - 108 mmol/L [facility] Carbon Dioxide 24 22 - 29 mmol/L [facility] Anion Gap 9(L) 12 - 20 [facility] Urea Nitrogen (BUN) 14 9 - 16 mg/dL [facility] Creatinine, Serum 1.03 0.5 - 1.4 mg/dL [facility] Estimated Glomerular Filt Rate 53 [facility] Comment:NOTE: For -Am erican individuals, multiply the result by 1.210.Chronic Kidney Disease: Estimated GFR < 60 mL/min/1.86m2Smyqzc Kidney Disease: Estimated GFR < 15 mL/min/1.73m2 Glucose 208(H) 60 - 115 mg/dL [facility] Calcium 10.1 8.4 - 10.2 mg/dL [facility] Blood Venous blood specimen / Unknown 05/08/2023 11:04 AM EDT 05/08/2023 1:47 PM EDT Rolanda Thakur MD LAB BLOOD ORDERABLES Final Result [facility] [address] [place] [phone] * (ABNORMAL) CBC auto differential (05/08/2023 11:04 AM EDT) White Blood Count 8.6 4.8 - 10.8 X10*3/uL [facility] Red Blood Count 4.27 4.20 - 5.50 X10*6/uL [facility] Hemoglobin 12.6 12.0 - 16.0 g/dl [facility] Hematocrit 37.9 37.0 - 47.0 % [facility] Mean Corpuscular Volume 88.8 80.0 - 98.0 fL [facility] Mean Corpuscular Hemoglobin 29.5 27.0 - 33.0 pg [facility] Mean Corpuscular HGB Conc 33.2 31.0 - 35.0 g/dl [facility] Red Cell Distribution Width 13.0 11.0 - 16.0 % [facility] Platelet Count 266 160 - 400 X10*3/uL [facility] Mean Platelet Volume 9.5 9.4 - 12.3 fL [facility] Neutrophils Percent Auto 50.3 45 - 73 % [facility] Imm Gran Pct Auto 0.3 0.0 - 0.4 % [facility] Lymphocytes Percent Auto 33.4 20 - 40 % [facility] Monocytes Percent Auto 7.0 2 - 11 % [facility] Eosinophils Percent Auto 7.8(H) 0 - 4 % [facility] Basophils Percent Auto 1.2 0 - 2 % [facility] NRBC Pct Auto 0.0 0.0 - 0.2 /100WBC [facility] Neutrophils Absolute Auto 4.3 2.0 - 8.3 x10*3/uL [facility] Imm Gran Abs Auto 0.03 0.00 - 0.03 X10*3/uL [facility] Lymphocytes Absolute Auto 2.9 1.2 - 4.9 X10*3/uL [facility] Monocytes Absolute Auto 0.6 0.1 - 1.2 X10*3/uL [facility] Eosinophils Absolute Auto 0.7(H) 0.0 - 0.4 X10*3/uL [facility] Basophils Absolute Auto 0.1 0.0 - 0.2 X10*3/uL [facility] NRBC Abs Auto 0.000 0.0 - 0.012 X10*3/uL [facility] Blood Venous blood specimen / Unknown 05/08/2023 11:04 AM EDT 05/08/2023 1:46 PM EDT Rolanda Thakur MD LAB BLOOD ORDERABLES Final Result [facility] [address] [place] [phone] documented in this encounter Visit Diagnoses Diagnosis Diabetic polyneuropathy associated with type 2 diabetes mellitus (CMS/HCC)- Primary documented in this encounter Care Teams Shaping Machine Operator Relationship Specialty Start Date End Date Rolanda Thakur MD [address] [place] [phone] PCP - General Internal Medicine 09/19/22 documented as of this encounter
--- OUTSIDE RECORDS SUMMARY | 2025-05-17 09:14 | XMS_ITS | Encounter Summary ---
Author Organization [employer] Address [address] [address] Care Team Providers Care Spinning Supervisor Name Role Phone Rolanda Thakur MD Primary Care Provider +1- [phone] Reason for Visit * Reason Onset Date Comments Medication Question 11/27/2024 Encounter Details Date Type Department Care Team ([facility] st Contact Info) Description 11/27/2024 Telephone [facility] [address] [place] [address] Rolanda Thakur MD [address] [place], [place] [phone] Medication Question Social History Tobacco Use Types [...] going through what is going on. Contact [phone] documented in this encounter Plan of Treatment Not on file documented as of this encounter Visit Diagnoses Not on filedocumented in this encounter Additional Health Concerns Assessment Noted Time PHQ-9 Depression Total Score: 2 05/13/20 24 9:24 AM EDT documented as of this encounter Care Teams Spinning Supervisor Relationship Specialty Start Date End Date Rolanda Thakur MD [address] [place] [phone] PCP - General Internal Medicine 09/19/22 documented as of this encounter
--- OUTSIDE RECORDS SUMMARY | 2025-05-17 09:14 | XMS_ITS | Encounter Summary ---
Author Organization [employer] Address [address] [address] Care Team Providers Care Music Coordinator Name Role Phone Rolanda Thakur MD Primary Care Provider +1- [phone] Reason for Visit * Reason Onset Date Comments call back / orders 04/22/2025 Encounter Details Date Type Department Care Team ([facility] st Contact Info) Description 04/22/2025 Telephone [facility] MEDICINE [address] [place] [address] Rolanda Thakur MD [address] [place], [place] [phone] call back / orders Social History Tobacco [...] message send by pt Contact pt at [phone] documented in this encounter Plan of Treatment Not on file documented as of this encounter Visit Diagnoses Not on filedocumented in this encounter Additional Health Concerns Assessment Noted Time PHQ-9 Depression Total Score: 2 05/13/20 24 9:24 AM EDT documented as of this encounter Care Teams Music Coordinator Relationship Specialty Start Date End Date Rolanda Thakur MD [address] [place] [address] PCP - General Internal Medicine 09/19/22 documented as of this encounter
--- OUTSIDE RECORDS SUMMARY | 2025-05-17 09:14 | XMS_ITS | Encounter Summary ---
Author Organization [employer] Address [address] [place] [address] Care Team Providers Care Account Assistant Name Role Phone Rolanda Thakur MD Primary Care Provider +1- [phone] Reason for Referral * Consultation (Routine) - Authorized Specialty Diagnoses / Procedures Referred By Contac t Referred To Contact Endocrinology Diagnoses Type 2 diabetes mellitus without complication, without long-term current use of insulin (CMS/HCC) Benign essential hypertension Rolanda Thakur MD [address] [place] [address] Phone: tel: fax: [facility] [address] , [address] [place] [address] Phone: tel: fax: Referral ID Status Reason Start Date Expiration Date Visits Requested Visits Authorized [id number] Authorized Specialty Services Required 11/07/2024 11/07/2025 1 1 Encounter Details Date Type Department Care Team (Late st Contact Info) Description 11/07/2024 Orders Only [facility] MEDICINE [address] [place] [address] Rolanda Thakur MD [address] [place] [address] Type 2 diabetes mellitus without complication, without [...] as of this encounter Care Teams Account Assistant Relationship Specialty Start Date End Date Rolanda Thakur MD 505 [place] [address] PCP - General Internal Medicine 09/19/22 documented as of this encounter
--- OUTSIDE RECORDS SUMMARY | 2025-05-17 09:14 | XMS_ITS | Encounter Summary ---
Author Organization [employer] Address [address] [place] [address] 7 [place] [address] Care Team Providers Care Information Systems Audit Manager Name Role Phone Rolanda Thakur MD Primary Care Provider +1- [phone] Encounter Details Date Type Department Care Team ([facility] Contact Info) Description 04/22/2025 Results Follow-Up [facility] CHC MED & PEDS 505 [place] [address] Migdalia Loza FNP 505 [place] [address] TSH W/Reflex to FT4, Urinalysis, Complete, with [...] documented as of this encounter Care Teams Information Systems Audit Manager Relationship Specialty Start Date End Date oRlanda Thakur MD [address] [place] [address] PCP - General Internal Medicine 09/19/22 documented as of this encounter
--- OUTSIDE RECORDS SUMMARY | 2025-05-17 09:14 | XMS_ITS | Encounter Summary ---
Author Organization [employer] Address [address] [place] [address] Care Team Providers Care Wedding Decorator Name Role Phone Rolanda Thakur MD Primary Care Provider +1- [phone] Reason for Referral * Consultation (Routine) - Closed Specialty Diagnoses / Procedures Referred By Freddy t Referred To Contact Chiropractic Medicine Diagnoses Chronic left-sided low back pain with left-sided sciatica Rolanda Thakur MD 505 [place] [address] Phone: tel: fax: [facility] fax: Referral ID Status Reason Start Date Expiration Date V isits Requested Visits Authorized [id number] Closed Specialty Services Required 08/08/2024 08/08/2025 1 1 * Consultation (Routine) - Closed Specialty Diagnoses / Procedures Referred By Freddy t Referred To Contact Physical Therapy Diagnoses Chronic left-sided low back pain with left-sided sciatica Rolanda Thakur MD [address] [place] [address] Phone: tel: fax: [facility] Physical Therapy [address] [place] [address] Phone: tel: fax: Referral ID Status Reason Start Date Expiration Date V isits Requested Visits Authorized [id number] Closed Specialty Services Required 08/05/2024 08/05/2025 1 1 * Consultation (Routine) - Closed Specialty Diagnoses / Procedures Referred By Freddy meadows Referred To Contact Chiropractic Medicine Diagnoses Chronic left-sided low back pain with left-sided sciatica Rolanda Thakur MD [address] [place] [address] Phone: tel: fax: Referral ID Status Reason Start Date Expiration Date V isits Requested Visits Authorized [id number] Closed Specialty Services Required 08/02/2024 08/02/2025 1 1 Encounter Details Date Type Department Care Team ([facility] st Contact Info) Description 08/02/2024 Orders Only [facility] CHC MED & PEDS [address] [place] [address] Rolanda Thakur MD [address] [place] [address] Chronic left-sided low back pain with left-sided [...] AM EST Narrative 09/02/2024 11:24 AM EST [facility] [address] [place] [address] XRay Report Signed Patient: Angely Pineda MR#: [id number] : 1950 Acct:[id number] Age/Sex: 74 / F ADM Date: 08/12/24 Loc: HO.HMGCX Attending Dr: Wyatt Golden MD Ordering Physician: Wyatt Golden MD Date of Service: 08/12/24 Procedure(s): XR cervical spine 5V Accession Number(s): [id number] cc: Rolanda Thakur MD; Wyatt Golden MD [...] 09/02/24 1121 DD/ 0950 TD/TT: 08/12/24 1000 Pot Firer: Procedure Note Donotuseinterpreter, Image - 09/02/2024 [facility] [place] Primary Care [facility] [place] [address] XRay Report Signed Patient: Erma Pineda#: [id number] : 1950cct:[id number] Age/Sex: 74 / FADM Date: 08/12/24 Loc: HO.HMGCX Attending Dr: Wyatt Golden MD Ordering Physician: Wyatt Golden MD Date of Service: 08/12/24 Procedure(s): XR cervical spine 5V Accession Number(s): [id number] cc: Rolanda Thakur MD; Wyatt Golden MD [...] by: Yuridia Becerra MD 09/02/2024 11:21 AM [facility] Dictated By: Yuridia Becerra MD Signed By: <Electronically signed by Yuridia Becerra MD in OV> 09/02/24 1121 DD/ 0950 TD/TT: 08/12/24 1000 Pot Firer: Wyatt Mcdonald MD IMG XR PROCEDURES Iftikhar mecca Result - Final documented in this encounter Visit Diagnoses Diagnosis Chronic left-sided low back pain with left-sided sciatica- Primary documented in this encounter Additional Health Concerns Assessment Noted Time PHQ-9 Depression Total Score: 2 05/13/20 24 9:24 AM EDT documented as of this encounter Care Teams Wedding Decorator Relationship Specialty Start Date End Date Rolanda Thakur MD [address] [place] [address] PCP - General Internal Medicine 09/19/22 documented as of this encounter
--- OUTSIDE RECORDS SUMMARY | 2025-05-17 09:14 | XMS_ITS | Encounter Summary ---
Author Organization [employer] Address [address] [place] [address] Care Team Providers Care Soil Biology Teacher Name Role Phone Rolanda Thakur MD Primary Care Provider +1 [phone] Reason for Referral * Imaging (Routine) - Closed Specialty Diagnoses / Procedures Referred By Contac t Referred To Contact Radiology Diagnoses Hyponatremia Decreased GFR Procedures US RENAL BI Rolanda Thakur MD 505 [place] [address] Phone: tel: fax: [address] Phone: tel: fax: Referral ID Status Reason Start Date Expiration Date Visits Re quested Visits Authorized [id number] Closed 07/18/2024 07/18/2025 1 0 Encounter Details Date Type Department Care Team (Late st Contact Info) Description 07/09/2024 Orders Only [facility] CHC MED & PEDS 505 [place], [place] [phone] Rolanda Thakur MD 505 [place], [place] [phone] Hyponatremia (Primary Dx); Decreased GFR Social History [...] EDT) Sodium 133(L) 135 - 145 mmol/L [facility] Potassium 4.9 3.3 - 5.1 mmol/L [facility] Chloride 104 96 - 108 mmol/L [facility] Carbon Dioxide 23 22 - 29 mmol/L [facility] Anion Gap 11(L) 12 - 20 [facility] Urea Nitrogen (BUN) 15 9 - 16 mg/dL [facility] Creatinine, Serum 0.82 0.5 - 1.4 mg/dL [facility] Estimated Glomerular Filt Rate >60 [facility] Comment:Chronic Kidney Disea se: Estimated GFR < 60 mL/min/1.13j2Szinyd Kidney Disease: Estimated GFR < 15 mL/min/1.73m2 Glucose 177(H) 60 - 115 mg/dL [facility] Calcium 9.5 8.4 - 10.2 mg/dL [facility] Blood Venous blood specimen / Unknown 02/05/2025 12:22 PM EDT 02/05/2025 1:20 PM EDT Rolanda Thakur MD LAB BLOOD ORDERABLES Final Result [facility] [address] [place] [address] [phone] documented in this encounter Visit Diagnoses Diagnosis Hyponatremia- Primary Hyposmolality and/or hyponatremia Decreased GFR documented in this encounter Additional Health Concerns Assessment Noted Time PHQ-9 Depression Total Score: 2 05/13/20 24 9:24 AM EDT documented as of this encounter Care Teams Soil Biology Teacher Relationship Specialty Start Date End Date Rolanda Thakur MD [address] [place] [address] PCP - General Internal Medicine 09/19/22 documented as of this encounter
--- OUTSIDE RECORDS SUMMARY | 2025-05-17 09:14 | XMS_ITS | Encounter Summary ---
Author Organization [employer] Address [address] [place] [address] Care Team Providers Care Public Safety Police Name Role Phone Rolanda Thakur MD Primary Care Provider +1- [phone] Encounter Details Date Type Department Care Team ([facility] st Contact Info) Description 05/16/2023 Orders Only [facility] CHC MED & PEDS [address] [place], [place] [phone] Rolanda Thakur MD [address] [place] [address] Bilateral leg paresthesia (Primary Dx); Anxiety; Diabetic [...] Vitamin B6 (10/10/2023 12:50 PM EST) Pathologist [facility] Vitamin B6 16.0 2.1 - 21.7 ng/mL [facility] Comment:Vitamin supplementat ion within 24 hours prior toblood draw may affect the accuracy of the results.This test was developed and its analytical performancecharacteristics have been determined by [facility] [place], [place]. It hasnot been cleared or approved by the U.S. Food and DrugAdministration. This assay has been validated pursuantto the CLIA regulations and is used for clinicalpurposes.THIS TEST WAS PERFORMED AT:[employer] [place] [address]JFSYFTU W. MASON,MD,PHD Blood Venous blood specimen / Unknown 10/10/2023 12:50 PM EST 10/10/2023 2:41 PM EST us Rolanda Thakur MD LAB BLOOD ORDERABLES Final Result [facility] [address] [place] [phone] [phone] * (ABNORMAL) Vitamin B12 (10/10/2023 12:50 PM EST) Pathologist [facility] Vitamin B12 1,388(H) 200 - 900 pg/mL [facility] Comment:NORMAL 200-900 PG/ML INDETERMINATE 160-199 PG/ML DEFICIENT < 160 PG/ML Blood Venous blood specimen / Unknown 10/10/2023 12:50 PM EST 10/10/2023 2:41 PM EST us Rolanda Thakur MD LAB BLOOD ORDERABLES Final Result Performing Organization Address City/[facility]/ZIP Co de Phone Number [facility] [address] [place] [address] [phone] * TSH W/Reflex to FT4 (10/10/2023 12:50 PM EST) Pathologist [facility] TSH reflex Free T4 0.35 0.32 - 4.0 uIU/mL [facility] Blood 10/10/2023 12:5 0 PM EST 10/10/2023 2:41 PM EST us Rolanda Thakur MD LAB BLOOD ORDERABLES Final Result Performing Organization Address City/[facility]/ZIP Co de Phone Number [facility] [address] [place] [address] [phone] * (ABNORMAL) CBC auto differential (10/10/2023 12:50 PM EST) White Blood Count 8.0 4.8 - 10.8 X10*3/uL [facility] Red Blood Count 4.19(L) 4.20 - 5.50 X10*6/uL [facility] Hemoglobin 12.3 12.0 - 16.0 g/dl [facility] Hematocrit 36.6(L) 37.0 - 47.0 % [facility] Mean Corpuscular Volume 87.4 80.0 - 98.0 fL [facility] Mean Corpuscular Hemoglobin 29.4 27.0 - 33.0 pg [facility] Mean Corpuscular HGB Conc 33.6 31.0 - 35.0 g/dl [facility] Red Cell Distribution Width 12.8 11.0 - 16.0 % [facility] Platelet Count 252 160 - 400 X10*3/uL [facility] Mean Platelet Volume 9.5 9.4 - 12.3 fL [facility] Neutrophils Percent Auto 55.5 45 - 73 % [facility] Imm Gran Pct Auto 0.4 0.0 - 0.4 % [facility] Lymphocytes Percent Auto 31.3 20 - 40 % [facility] Monocytes Percent Auto 6.0 2 - 11 % [facility] Eosinophils Percent Auto 5.9(H) 0 - 4 % [facility] Basophils Percent Auto 0.9 0 - 2 % [facility] NRBC Pct Auto 0.0 0.0 - 0.2 /100WBC [facility] Neutrophils Absolute Auto 4.5 2.0 - 8.3 x10*3/uL [facility] Imm Gran Abs Auto 0.03 0.00 - 0.03 X10*3/uL [facility] Lymphocytes Absolute Auto 2.5 1.2 - 4.9 X10*3/uL [facility] Monocytes Absolute Auto 0.5 0.1 - 1.2 X10*3/uL [facility] Eosinophils Absolute Auto 0.5(H) 0.0 - 0.4 X10*3/uL [facility] Basophils Absolute Auto 0.1 0.0 - 0.2 X10*3/uL [facility] NRBC Abs Auto 0.000 0.0 - 0.012 X10*3/uL [facility] Blood Venous blood specimen / Unknown 10/10/2023 12:50 PM EST 10/10/2023 2:41 PM EST us Rolanda Thakur MD LAB BLOOD ORDERABLES Final Result [facility] [address] [place] [address] [phone] documented in this encounter Visit Diagnoses Diagnosis Bilateral leg paresthesia- Primary Disturbance of skin sensation Anxiety Anxiety state, unspecified Diabetic polyneuropathy associated with type 2 diabetes mellitus ([facility]) documented in this encounter Care Teams Public Safety Police Relationship Specialty Start Date End Date Rolanda Thakur MD [address] [place] [phone] PCP - General Internal Medicine 09/19/22 documented as of this encounter
--- OUTSIDE RECORDS SUMMARY | 2025-05-17 09:14 | XMS_ITS | Encounter Summary ---
Author Organization [employer] Address [address] [address] Care Team Providers Care Telesales Specialist Name Role Phone Rolanda Thakur MD Primary Care Provider +1- [phone] Reason for Visit * Reason Onset Date Comments Results 05/02/2025 Encounter Details Date Type Department Care Team ([facility] Contact Info) Description 05/02/2025 Telephone [facility] MEDICINE [address] [place] [address] Rolanda Thakur MD [address] [place], [place] [phone] Results Social History Tobacco Use Types Packs/Day [...] back regarding results as well as a SnoopWallt message stating she will be referred to a urologist. Pt expressed frustration due to the fact that she has not received a callfrom a nurse regarding results but is now being referred, she would like to further discuss before the day ends. Please contact pt at [phone]. documented in this encounter Plan of Treatment Not on file documented as of this encounter Visit Diagnoses Not on filedocumented in this encounter Additional Health Concerns Assessment Noted Time PHQ-9 Depression Total Score: 2 05/13/20 24 9:24 AM EDT documented as of this encounter Care Teams Telesales Specialist Relationship Specialty Start Date End Date Rolanda Thakur MD [address] [place] [address] PCP - General Internal Medicine 09/19/22 documented as of this encounter
--- OUTSIDE RECORDS SUMMARY | 2025-05-17 09:14 | XMS_ITS | Encounter Summary ---
Author Organization [employer] Address [address] [place] [address] 7 [place] [address] Care Team Providers Care Developmental Therapist Name Role Phone Rolanda Thakur MD Primary Care Provider +1- [phone] Encounter Details Date Type Department Care Team ([facility] st Contact Info) Description 05/01/2025 Orders Only [facility] CHC MED & PEDS [address] [place], [place] [phone] Rolanda Thakur MD 505 [place] [address] Recent urinary tract infection (Primary Dx) Social [...] Associated Diagnosis Comments CULTURE, URINE, ROUTINE Routine 05/10/2025 8:50 AM EDT Recent urinary tract infection documented in this encounter Results * Culture, Urine, Routine (05/10/2025 8:50 AM EDT) Urine Urine specimen obtained by clean catch procedure / Unknown 05/10/2025 8:50 AM EDT 05/10/2025 11:44 AM EDT Comment:CC Narrative [facility] - 05/11/2025 8:42 AM EDT Urine Culture No growth. Specimen Source: Urine clean catch us Rolanda Thakur MD LAB MICROBIOLOGY - GENERAL ORDERABLES Final Result [facility] [address] [place] [address] [phone] documented in this encounter Visit Diagnoses Diagnosis Recent urinary tract infection- Primary documented in this encounter Additional Health Concerns Assessment Noted Time PHQ-9 Depression Total Score: 2 05/13/20 24 9:24 AM EDT documented as of this encounter Care Teams Developmental Therapist Relationship Specialty Start Date End Date Rolanda Thakur MD [address] [place] [address] PCP - General Internal Medicine 09/19/22 documented as of this encounter
--- OUTSIDE RECORDS SUMMARY | 2025-05-17 09:14 | XMS_ITS | Encounter Summary ---
Author Organization [employer] Address [address] [address] Care Team Providers Care Stretch Press Operator Name Role Phone Rolanda Thakur MD Primary Care Provider +1- [phone] Reason for Visit * Reason Onset Date Comments Referral 02/28/2025 Encounter Details Date Type Department Care Team ([facility] st Contact Info) Description 02/28/2025 Telephone [facility] MEDICINE [address] [place] [address] Rolanda Thakur MD [address] [place], [place] [phone] Referral Social History Tobacco Use Types Packs/Day [...] to change location of endocrinology referral: Address: [address] [place] [address] [place] [address] Facility Name: [facility] Type of Specialist: Endocrinology Provider: Dr. Aren Banerjee documented in this encounter Plan of Treatment Not on file documented as of this encounter Visit Diagnoses Not on filedocumented in this encounter Additional Health Concerns Assessment Noted Time PHQ-9 Depression Total Score: 2 05/13/20 24 9:24 AM EDT documented as of this encounter Care Teams Stretch Press Operator Relationship Specialty Start Date End Date Rolanda Thakur MD [address] [place] [address] PCP - General Internal Medicine 09/19/22 documented as of this encounter
--- OUTSIDE RECORDS SUMMARY | 2025-05-17 09:14 | XMS_ITS | Encounter Summary ---
Author Organization [employer] Address [address] [place] [address] Care Team Providers Care Baby Formula Mixer Name Role Phone Rolanda Thakur MD Primary Care Provider +1- [phone] Reason for Visit * Reason Onset Date Comments Med Refill 02/17/2025 Encounter Details Date Type Department Care Team ([facility] st Contact Info) Description 02/17/2025 Refill [facility] CHC MED & PEDS [address] [place] [address] Rolanda Thakur MD [address] [place] [address] Type 2 diabetes mellitus without complication, without [...] long-term current use of insulin ([facility]) Panic attack Panic disorder without agoraphobia Anxiety Anxiety state, unspecified documented in this encounter Additional Health Concerns Assessment Noted Time PHQ-9 Depression Total Score: 2 05/13/20 24 9:24 AM EDT documented as of this encounter Care Teams Baby Formula Mixer Relationship Specialty Start Date End Date Rolanda Thakur MD [address] [place] [address] PCP - General Internal Medicine 09/19/22 documented as of this encounter
--- OUTSIDE RECORDS SUMMARY | 2025-05-17 09:14 | XMS_ITS | Encounter Summary ---
Author Organization [employer] Address 75 [facility] 7 [place] [address] Care Team Providers Care Cone Machine Feeder Name Role Phone Rolanda Thakur MD Primary Care Provider +1 [phone] Encounter Details Date Type Department Care Team ([facility] Contact Info) Description 02/05/2025 Orders Only [facility] CHC MED & PEDS [address] [place], [place] [phone] Rolanda Thakur MD [address] [place] [address] Acquired hypothyroidism Social History Tobacco Use Types [...] as of this encounter Care Teams Cone Machine Feeder Relationship Specialty Start Date End Date Rolanda Thakur MD [address] [place] [address] PCP - General Internal Medicine 09/19/22 documented as of this encounter
--- OUTSIDE RECORDS SUMMARY | 2025-05-17 09:14 | XMS_ITS | Encounter Summary ---
Author Organization [employer] Address [address] [place] [address] 7 [place] [address] Care Team Providers Care Cloth Seconds Sorter Name Role Phone Rolanda Thakur MD Primary Care Provider +1 [phone] Encounter Details Date Type Department Care Team ([facility] st Contact Info) Description 06/21/2023 Abstract [facility] MEDICINE [address] [place] [address] Sherrie Caballero Social History Tobacco Use Types [...] on filedocumented in this encounter Care Teams Cloth Seconds Sorter Relationship Specialty Start Date End Date Rolanda Thakur MD [address] [place] [address] PCP - General Internal Medicine 09/19/22 documented as of this encounter
--- OUTSIDE RECORDS SUMMARY | 2025-05-17 09:14 | XMS_ITS | Encounter Summary ---
Author Organization [employer] Address [address] [place] [address] 7 [place] [address] Care Team Providers Care Machinery Repair Maintenance Supervisor Name Role Phone Rolanda Thakur MD Primary Care Provider +1- [phone] Reason for Visit * Reason Comments Med Refill Encounter Details Date Type Department Care Team ([facility] st Contact Info) Description 12/28/2022 Refill [facility] CHC MED & PEDS [address] [place] [address] Maren Hough MD [address] [place] [address] Type 2 diabetes mellitus without complication, without long-term current use of insulin ([facility]); Anxiety Social History Tobacco Use Types [...] complication, without long-term current use of insulin ([facility]) Anxiety Anxiety state, unspecified documented in this encounter Care Teams Machinery Repair Maintenance Supervisor Relationship Specialty Start Date End Date Rolanda Thakur MD [address] [place] [address] PCP - General Internal Medicine 09/19/22 documented as of this encounter
--- OUTSIDE RECORDS SUMMARY | 2025-05-17 09:14 | XMS_ITS | Encounter Summary ---
Author Organization [employer] Address [address] [address] Care Team Providers Care Home Inspector Name Role Phone Rolanda Thakur MD Primary Care Provider +1- [phone] Reason for Visit * Reason Onset Date Comments Nurse Triage 08/05/2024 Encounter Details Date Type Department Care Team ([facility] st Contact Info) Description 08/05/2024 Telephone [facility] MEDICINE [address] [place] [address] Rolanda Thakur MD 505 [place], [place] [phone] Nurse Triage Social History Tobacco Use Types [...] 1145am. Pt is advised to come to [facility] today which is open till 8pm [...] documented as of this encounter Care Teams Home Inspector Relationship Specialty Start Date End Date Rolanda Thakur MD [address] [place] [address] PCP - General Internal Medicine 09/19/22 documented as of this encounter
--- OUTSIDE RECORDS SUMMARY | 2025-05-17 09:14 | XMS_ITS | Encounter Summary ---
Author Organization [employer] Address [address] [place] [address] [place] [address] Care Team Providers Care Telecommunications Administrator Name Role Phone Rolanda Thakur MD Primary Care Provider +1- [phone] Encounter Details Date Type Department Care Team ([facility] Contact Info) Description 04/30/2025 Results Follow-Up [facility] CHC MED & PEDS 505 [place] [address] Rolanda Thakur MD 505 [place] [address] XR Hand 3+ Views Right, XR Hand [...] documented as of this encounter Care Teams Telecommunications Administrator Relationship Specialty Start Date End Date Rolanda Thakur MD [address] [place] [address] PCP - General Internal Medicine 09/19/22 documented as of this encounter
--- OUTSIDE RECORDS SUMMARY | 2025-05-17 09:14 | XMS_ITS | Encounter Summary ---
Author Organization [email or web address] Address [address] [place] [address] Care Team Providers Care Hand Sewer Name Role Phone Rolanda Thakur MD Primary Care Provider +1- [phone] Reason for Visit * Reason Comments Med Refill Encounter Details Date Type Department Care Team ([facility] st Contact Info) Description 03/02/2025 Refill [facility] CHC MED & PEDS 505 [place], [place] [phone] Rolanda Thakur MD 505 [place] [address] Diabetic polyneuropathy associated with type 2 diabetes [...] as of this encounter Care Teams Hand Sewer Relationship Specialty Start Date End Date Rolanda Thakur MD [address] [place] [address] PCP - General Internal Medicine 09/19/22 documented as of this encounter
--- OUTSIDE RECORDS SUMMARY | 2025-05-17 09:14 | XMS_ITS | Encounter Summary ---
Author Organization [employer] Address [address] [address] Care Team Providers Care Overseer Kosher Kitchen Name Role Phone Rolanda Thakur MD Primary Care Provider +1- [phone] Reason for Visit * Reason Onset Date Comments Call Back Request 10/31/2024 Encounter Details Date Type Department Care Team ([facility] st Contact Info) Description 10/31/2024 Telephone [facility] MEDICINE 230 [place] [address] Rolanda Thakur MD 505 [place], [place] [phone] Call Back Request Social History Tobacco Use [...] to DR. Castañeda. Please contact pt at [phone]. documented in this encounter Plan of Treatment Not on file documented as of this encounter Visit Diagnoses Not on filedocumented in this encounter Additional Health Concerns Assessment Noted Time PHQ-9 Depression Total Score: 2 05/13/20 24 9:24 AM EDT documented as of this encounter Care Teams Overseer Kosher Kitchen Relationship Specialty Start Date End Date Rolanda Thakur MD [address] [place] [address] PCP - General Internal Medicine 09/19/22 documented as of this encounter
--- OUTSIDE RECORDS SUMMARY | 2025-05-17 09:14 | XMS_ITS | Continuity of Care Document ---
Author Organization [facility] [address] [place] [address] Phone [phone] Care Team Providers Care Research Epidemiologist Name Role Phone Rolanda Thakur M.D. Care Team Information Re ceiver [phone] Problems Active Problems Provider Date Type 2 diabetes mellitus Aren White M.D. Onset: 05/07/2025 Hypothyroidism Aren White M.D. Onset: 0 05/07/2025 History of thyroidectomy Aren White M.D. Onset: 05/07/2025 Social History Type [...] SIG Qnty Indications Order ing Provider Date [id number] Tablets 1 tab by mouth every day 90tabs Beauzile Thecarlain M.D. Losartan Ammjexwti077qw Tablets 1 tab by mouth every day BeauzileRolanda M.DNaman Clonidine HCL0.1mg Tablets Beauzile Thevenin M.DNaman Buspirone HCL5mg Tablets 1 tab by mouth twice a day BemitchellzileRolanda M.DNaman Clonazepam0.5mg Tablets Take 1 Tablet By Mouth Every Day as Needed For Panic Attacks Beauzile, Thevenin, M.D. Aspirin Low Bosr17kb Tablets Rolanda Morrissey M.D. Cyclobenzaprine BYL95lr Tablets Take 1 Tablet By Mouth Every 8 Hours Rolanda Thakur M.D. Metformin ARJ777he Tablets Take 1 Tablet By Mouth Twice Daily Demi Brothers MD Gmqcopiog10pf Tablets 1 tab by mouth twice a [...] Information Available Plan of Treatment Future Appointment(s):* 07/29/2025 1:45 pm - Aren White M.D. at Main Office * 10/08/2025 10:00 am - Aren White M.D. [...]
--- OUTSIDE RECORDS SUMMARY | 2025-05-17 09:14 | XMS_ITS | Clinical Summary ---
Author Organization [facility] Address [address] [place] [address] Phone Care Team Providers Care Barrel Rifler Name Role Phone Rolanda Thakur MD Primary Care Provider +1 -[phone] Allergies Active Allergy Reactions Criticality Noted Date [...] aware that this will likely be an [id number]-[id number] cost and feels as though she can afford it. I will review results and determine need for future follow-up. In the meantime she would like to hold off on statin therapy which I think is totally reasonable. Orders: ECG 12 lead Pure hypercholesterolemia 07/08/2024 Assessment & Plan (07/08/2024 4:42 PM EST): See plan above. Encounters Date Type Department Care Team Description 04/02/2025 Telephone [facility] [address] [place] [address] Nikki Rawls MD from Last [...] Description 06/23/2025 7:40 AM EST Office Visit [facility] [address] [place] [address] Kadi Palacios NP [address] [place] [address] Health Maintenance Due Date Last Done Comments [...] year. Mammo Location: [facility], [address] [place] [address], [address], . -------- FINAL REPORT -------- Dictated By: Peggy Reddy Dictated Date: 12/18/2024 07:51 ET Assigned Physician: Peggy Reddy Reviewed and Electronically Signed By: Peggy Reddy Signed Date: 12/18/2024 07:55 ET Workstation ID: [id number] Transcribed By: Self Edit Transcribed Date: 12/18/2024 [...] year. Mammo Location: [facility], [address] [place] [address], [address], . -------- FINAL REPORT -------- Dictated By: Peggy Reddy Dictated Date: 12/18/2024 07:51 ET Assigned Physician: Peggy Reddy Reviewed and Electronically Signed By: Peggy Reddy Signed Date: 12/18/2024 07:55 ET Workstation ID: [id number] Transcribed By: Self Edit Transcribed Date: 12/18/2024 07:51 ET us Self Referral Sppl IMG BI PROCEDURES Final Resul t * MOHAMUD DEXA AXIAL SKELETON (04/12/2023 7:46 AM EDT) Anatomical Region Laterality Modality Mammography 04/11/2023 3:03 PM EDT Narrative 04/12/2023 7:46 AM EDT [facility] Diagnostic Imaging Department [address] [place] [address] Patient: ADANGELY YARA /Age/Sex: 1950 - 72 - F Unit#: [id number] Location/Status: SPDIMAM/REG CLI Mnemonic/Ordering Site: MAMDEXAAX/SPMAM Ordering Physician: MAREN HOUGH MD Mohamud Dexa Axial Skeleton - 04/11/23 - 1538 Report Status:Signed HISTORY: The patient is a [...] probability of hip fracture of 2.2%. Code 53135 Dictating Physician: GWENDOLYN BAHENA MD Electronically Signed by: GWENDOLYN BAHENA MD Dic Date/Time: 04/12/23 0745 Sign date/Time: 04/12/23 0746 Procedure Note Gwendolyn Bahena MD - 09/26/2023 [facility] Diagnostic Imaging Department [address] [place] [address] Patient: ANGELY PINEDA YARA /Age/Sex: 1950 - 72 - F Unit#: [id number] Location/Status: SPDIMAM/REG CLI Mnemonic[facility] Ordering Physician: MAREN HOUGH MD [facility] Dexa Axial Skeleton - 04/11/23 - 4826 Report Status:Signed HISTORY: The patient is a [...] density of the femurs bilaterally is 0.874 gm/yx0dxslk is 87% of that of young normals [...] probability of hip fracture of 2.2%. Code 61038 Dictating Physician: GWENDOLYN BAHENA MD Electronically Signed by: GWENDOLYN BAHENA MD Dic Date/Time: 04/12/23744 Sign date/Time: 04/12/23745 Maren Hough MD IMG BI PROCEDURES Final Result from Last 3 Months or Most Recently Relevant to Health Maintenance Insurance [place] [address] Care Teams Barrel Rifler Relationship Specialty Start Date End Date Rolanda Thakur MD [address] [place], [place] PCP - General 11/03/23
--- OUTSIDE RECORDS SUMMARY | 2025-05-17 09:14 | XMS_ITS | Encounter Summary ---
Author Organization [employer] Address [address] [place] [address] Care Team Providers Care Mainframe Developer Name Role Phone Rolanda Thakur MD Primary Care Provider [phone] Reason for Visit * Reason Comments Med Refill Encounter Details Date Type Department Care Team ([facility] st Contact Info) Description 01/05/[address] [facility] CHC MED & PEDS 505 [place] [address] Karoline Castañeda MD 505 [place] [address] Social History Tobacco Use Types Packs/Day Years [...] on filedocumented in this encounter Care Teams Mainframe Developer Relationship Specialty Start Date End Date Rolanda Thakur MD [address] [place] [address] PCP - General Internal Medicine 09/19/22 documented as of this encounter
--- OUTSIDE RECORDS SUMMARY | 2025-05-17 09:15 | XMS_ITS | Clinical Summary ---
Author Organization [facility] Address [address] [place], [place] [address] Care Team Providers Care Paper Testing Supervisor Name Role Phone Rahel Hough MD Primary Care Provider [phone] Allergies Active Allergy Reactions Criticality Noted Date [...] mg by mouth daily. 0 09/09/2020 Active Eminence-3 Fatty Acids (FISH OIL) 1000 MG CAPS [...] age to complete this topic Care Teams Paper Testing Supervisor Relationship Specialty Start Date End Date Rahel Hough MD [address] [facility] [place] [address] PCP - General Internal Medicine 11/20/20
--- OUTSIDE RECORDS SUMMARY | 2025-05-17 09:15 | XMS_ITS | Encounter Summary ---
Author Organization [employer] Address [address] [place] [address] Care Team Providers Care Plant Specialist Name Role Phone Rolanda Thakur MD Primary Care Provider [phone]- [phone] Reason for Visit * Reason Onset Date Comments EKG 06/18/2024 Encounter Details Date Type Department Care Team ([facility] Contact Info) Description 06/18/[address] [facility] CHC MED & PEDS 505 [place] [address] Rolanda Thakur MD 505 [place] [address] EKG Social History Tobacco Use Types Packs/Day [...] Given pt's symptoms, she would need a [facility] appointment to get the notes for our events specialist to process the referral. * Telephone [...] should seek a neurology referral. She states thread grinder advised her to get a referral due to procedure done for cataracts might have struck a nerve and that might be were the headaches are coming from. * Telephone Encounter - Annabella Peña - 06/18/2024 4:03 PM EDT Tc from pt requesting status on order for EKG. Contact Paulette at [phone] documented in this encounter Plan of Treatment Not on file documented as of this encounter Visit Diagnoses Not on filedocumented in this encounter Additional Health Concerns Assessment Noted Time PHQ-9 Depression Total Score: 2 05/13/20 24 9:24 AM EDT documented as of this encounter Care Teams Plant Specialist Relationship Specialty Start Date End Date Rolanda Thakur MD [address] [place] [address] PCP - General Internal Medicine 09/19/22 documented as of this encounter
--- OUTSIDE RECORDS SUMMARY | 2025-05-17 09:15 | XMS_ITS | Encounter Summary ---
Author Organization [employer] Address [address] [place] [address] 7 [place] [address] Care Team Providers Care Project Management Name Role Phone Rolanda Thakur MD Primary Care Provider [phone]- [phone] Encounter Details Date Type Department Care Team (Latest Contact Info) Description 03/20/2025 Results Follow-Up [facility] CHC MED & PEDS 505 [place] [address] Rolanda Thakur MD 505 [place] [address] TSH W/Reflex to FT4, CBC auto differential [...] of this encounter Care Teams Project Management Relationship Specialty Start Date End Date Rolanda Thakur MD [address] [place] [address] PCP - General Internal Medicine 09/19/22 documented as of this encounter
--- OUTSIDE RECORDS SUMMARY | 2025-05-17 09:15 | XMS_ITS | Encounter Summary ---
Author Organization [employer] Address [address] [place] [address] Care Team Providers Care Solar Energy Technician Name Role Phone Rolanda Thakur MD Primary Care Provider [phone]- [phone] Reason for Visit * Reason Onset Date Comments Med Refill 04/11/2025 Encounter Details Date Type Department Care Team ([facility] st Contact Info) Description 04/11/2025 Refill [facility] CHC MED & PEDS 505 [place] [address] Rolanda Thakur MD 505 [place] [address] Type 2 diabetes mellitus without complication, without long-term current use of insulin ([facility]) Social History Tobacco Use Types [...] long-term current use of insulin ([facility]) documented in this encounter Additional Health Concerns Assessment Noted Time PHQ-9 Depression Total Score: 2 05/13/20 24 9:24 AM EDT documented as of this encounter Care Teams Solar Energy Technician Relationship Specialty Start Date End Date Rolanda Thakur MD [address] [place] [address] PCP - General Internal Medicine 09/19/22 documented as of this encounter
--- OUTSIDE RECORDS SUMMARY | 2025-05-17 09:15 | XMS_ITS | Encounter Summary ---
Author Organization [employer] Address [address] [place] [address] Care Team Providers Care Auto Parts Salesperson Name Role Phone Rolanda Thakur MD Primary Care Provider +1- [phone] Encounter Details Date Type Department Care Team ([facility] Contact Info) Description 05/22/2024 Orders Only [facility] CHC MED & PEDS 505 [place] [address] Rolanda Thakur MD 505 [place] [address] Social History Tobacco Use Types Packs/Day Years [...] documented as of this encounter Care Teams Auto Parts Salesperson Relationship Specialty Start Date End Date Rolanda Thakur MD [address] [place] [address] PCP - General Internal Medicine 09/19/22 documented as of this encounter
--- OUTSIDE RECORDS SUMMARY | 2025-05-17 09:15 | XMS_ITS | Encounter Summary ---
Author Organization [employer] Address [address] [address] Care Team Providers Care Sheet Layer Name Role Phone Rolanda Thakur MD Primary Care Provider [phone]- [phone] Reason for Visit * Reason Onset Date Comments Nurse Triage 04/04/2024 Encounter Details Date Type Department Care Team ([facility] st Contact Info) Description 04/04/2024 Telephone [facility] MEDICINE 230 [place] [address] Rolanda Thakur MD 505 [place], [place] [phone] Nurse Triage Social History Tobacco Use Types [...] pt. She states that she went to [facility] for Anxiety panic attacks on 03/30/24- [...] got treated horribly by the staff at [facility] and she will never go there again. [...] care coordinators so that they can get [facility] notes from 03/30/24 Ed visit into pt. Chart and any labs, EKG's etc.. into pt. Chart for visit on 04/05/24 at 315pm. Protocol Used: Anxiety and Panic Attack (Adult) Protocol-Based Disposition: Go to ED/[facility] (or to Office with PCP Approval)- [...] filedocumented in this encounter Care Teams Sheet Layer Relationship Specialty Start Date End Date Rolanda Thakur MD [address] [place] [address] PCP - General Internal Medicine 09/19/22 documented as of this encounter
--- OUTSIDE RECORDS SUMMARY | 2025-05-17 09:15 | XMS_ITS | Encounter Summary ---
Author Organization [employer] Address [address] [place] [address] [place] [address] Care Team Providers Care Detonator Assembler Name Role Phone Rolanda Thakur MD Primary Care Provider [phone]- [phone] Encounter Details Date Type Department Care Team ([facility] Contact Info) Description 05/12/2025 Results Follow-Up [facility] CHC MED & PEDS 505 [place] [address] Rolanda Thakur MD 505 [place] [address] Culture, Urine, Routine Social History Tobacco Use [...] documented as of this encounter Care Teams Detonator Assembler Relationship Specialty Start Date End Date Rolanda Thakur MD [address] [place] [address] PCP - General Internal Medicine 09/19/22 documented as of this encounter
--- OUTSIDE RECORDS SUMMARY | 2025-05-17 09:15 | XMS_ITS | Encounter Summary ---
Author Organization [employer] Address [address] [place] [address] Care Team Providers Care Dumpster Operator Name Role Phone Rolanda Thakur MD Primary Care Provider +1- [phone] Reason for Visit * Reason Onset Date Comments Referral 06/13/2024 Encounter Details Date Type Department Care Team ([facility] st Contact Info) Description 06/13/2024 Telephone [facility] MEDICINE 230 [place] [address] Rolanda Thakur MD 505 [place], [place] [phone] Referral Social History Tobacco Use Types Packs/Day [...] documented as of this encounter Care Teams Dumpster Operator Relationship Specialty Start Date End Date Rolanda Thakur MD [address] [place] [address] PCP - General Internal Medicine 09/19/22 documented as of this encounter
--- OUTSIDE RECORDS SUMMARY | 2025-05-17 09:15 | XMS_ITS | Encounter Summary ---
Author Organization [employer] Address [address] [place] [address] Care Team Providers Care Saloonkeeper Name Role Phone Rolanda Thakur MD Primary Care Provider +1- [phone] Reason for Visit * Reason Onset Date Comments Med Refill 03/20/2025 Encounter Details Date Type Department Care Team ([facility] st Contact Info) Description 03/20/[address] [facility] CHC MED & PEDS 505 [place] [address] Rolanda Thakur MD 505 [place] [address] Social History Tobacco Use Types Packs/Day Years [...] documented as of this encounter Care Teams Saloonkeeper Relationship Specialty Start Date End Date Rolanda Thakur MD [address] [place] [address] PCP - General Internal Medicine 09/19/22 documented as of this encounter
--- OUTSIDE RECORDS SUMMARY | 2025-05-17 09:15 | XMS_ITS | Encounter Summary ---
Author Organization [employer] Address [address] [place] [address] Care Team Providers Care Home Visitor Home Base Head Start Name Role Phone Rolanda Thakur MD Primary Care Provider +1- [phone] Reason for Visit * Reason Onset Date Comments Med Refill 03/22/2025 Encounter Details Date Type Department Care Team ([facility] st Contact Info) Description 03/22/2025 Refill [facility] CHC MED & PEDS 505 [place] [address] Rolanda Thakur MD 505 [place] [address] Social History Tobacco Use Types Packs/Day Years [...] as of this encounter Care Teams Home Visitor Home Base Head Start Relationship Specialty Start Date End Date Rolanda Thakur MD [address] [place] [address] PCP - General Internal Medicine 09/19/22 documented as of this encounter
--- OUTSIDE RECORDS SUMMARY | 2025-05-17 09:15 | XMS_ITS | Encounter Summary ---
Author Organization [employer] Address [address] [place] [address] [place] [address] Care Team Providers Care Labor Contract Analyst Name Role Phone Rolanda Thakur MD Primary Care Provider +1- [phone] Encounter Details Date Type Department Care Team ([facility] Contact Info) Description 03/24/2025 Results Follow-Up [facility] CHC MED & PEDS 505 [place] [address] Rolanda Thakur MD 505 [place] [address] [employer]TB Social History Tobacco Use Types [...] documented as of this encounter Care Teams Labor Contract Analyst Relationship Specialty Start Date End Date Rolanda Thakur MD [address] [place] [address] PCP - General Internal Medicine 09/19/22 documented as of this encounter
--- OUTSIDE RECORDS SUMMARY | 2025-05-17 09:15 | XMS_ITS | Encounter Summary ---
Author Organization [employer] Address [address] [place] [address] Care Team Providers Care Assembler Leather Goods Name Role Phone Rolanda Thakur MD Primary Care Provider +1- [phone] Reason for Visit * Reason Onset Date Comments Medication Question 12/08/2022 Encounter Details Date Type Department Care Team ([facility] st Contact Info) Description 12/08/2022 Telephone [facility] CHC MED & PEDS 505 [place], [place] [phone] Rolanda Thakur MD 505 [place] [address] Medication Question Social History Tobacco Use Types [...] on filedocumented in this encounter Care Teams Assembler Leather Goods Relationship Specialty Start Date End Date Rolanda Thakur MD [address] [place] [address] PCP - General Internal Medicine 09/19/22 documented as of this encounter
--- OUTSIDE RECORDS SUMMARY | 2025-05-17 09:15 | XMS_ITS | Encounter Summary ---
Author Organization [employer] Address [address] [place] [address] Care Team Providers Care Analytical Chemist Name Role Phone Rolanda Thakur MD Primary Care Provider +1- [phone] Reason for Visit * Reason Comments Med Refill Encounter Details Date Type Department Care Team ([facility] Contact Info) Description 05/16/2025 Refill [facility] CHC MED & PEDS 505 [place] [address] Rolanda Thakur MD 505 [place] [address] Panic attack; Anxiety Social History Tobacco Use [...] documented as of this encounter Care Teams Analytical Chemist Relationship Specialty Start Date End Date Rolanda Thakur MD [address] [place] [address] PCP - General Internal Medicine 09/19/22 documented as of this encounter
--- OUTSIDE RECORDS SUMMARY | 2025-05-17 09:15 | XMS_ITS | Encounter Summary ---
Author Organization [employer] Address [address] [place] [address] Care Team Providers Care Quilting Supervisor Name Role Phone Rolanda Thakur MD Primary Care Provider +1- [phone] Encounter Details Date Type Department Care Team ([facility] st Contact Info) Description 05/02/2024 Orders Only [facility] CHC MED & PEDS 505 [place], [place] [phone] Rolanda Thakur MD 505 [place] [address] Anxiety (Primary Dx) Social History Tobacco Use [...] unspecified documented in this encounter Care Teams Quilting Supervisor Relationship Specialty Start Date End Date Rolanda Thakur MD 505 [place] [address] PCP - General Internal Medicine 09/19/22 documented as of this encounter
--- OUTSIDE RECORDS SUMMARY | 2025-05-17 09:15 | XMS_ITS | Encounter Summary ---
Author Organization [employer] Address [address] [address] Care Team Providers Care Armature Connector Name Role Phone Rolanda Thakur MD Primary Care Provider +1- [phone] Reason for Visit * Reason Onset Date Comments Medication Question 04/04/2024 Encounter Details Date Type Department Care Team ([facility] st Contact Info) Description 04/04/2024 Telephone [facility]INE [address] [place] [address] Rolanda Thakur MD 505 [place], [place] [phone] Medication Question Social History Tobacco Use Types [...] on filedocumented in this encounter Care Teams Armature Connector Relationship Specialty Start Date End Date Rolanda Thakur MD [address] [place] [address] PCP - General Internal Medicine 09/19/22 documented as of this encounter
--- OUTSIDE RECORDS SUMMARY | 2025-05-17 09:15 | XMS_ITS | Encounter Summary ---
Author Organization [employer] Address [address] [address] Care Team Providers Care Design And Sales Consultant Name Role Phone Rolanda Thakur MD Primary Care Provider +1- [phone] Reason for Visit * Reason Comments Med Refill Encounter Details Date Type Department Care Team ([facility] st Contact Info) Description 02/05/2025 Refill [facility] MED[facility]INE 230 [place] [address] Rolanda Thakur MD 505 [place], [place] [phone] Acquired hypothyroidism Social History Tobacco Use Types [...] her Thyroid Medication. Pt states her diabetic regional education coordinator changed the dosage to 1.12. documented in this encounter Plan of Treatment Not on file documented as of this encounter Visit Diagnoses Diagnosis Acquired hypothyroidism Unspecified hypothyroidism documented in this encounter Additional Health Concerns Assessment Noted Time PHQ-9 Depression Total Score: 2 05/13/20 24 9:24 AM EDT documented as of this encounter Care Teams Design And Sales Consultant Relationship Specialty Start Date End Date Rolanda Thakur MD [address] [place] [address] PCP - General Internal Medicine 09/19/22 documented as of this encounter
--- OUTSIDE RECORDS SUMMARY | 2025-05-17 09:15 | XMS_ITS | Encounter Summary ---
Author Organization [employer] Address [address] [place] [address] Care Team Providers Care Hematology Specialist Name Role Phone Rolanda Thakur MD Primary Care Provider +1- [phone] Reason for Visit * Reason Onset Date Comments Med Refill 03/31/2025 Encounter Details Date Type Department Care Team ([facility] st Contact Info) Description 03/31/2025 Refill [facility] CH[facility] MED & PEDS 505 [place] [address] Rolanda Thakur MD 505 [place] [address] Panic attack; Anxiety Social History Tobacco Use [...] documented as of this encounter Care Teams Hematology Specialist Relationship Specialty Start Date End Date Rolanda Thakur MD [address] [place] [address] PCP - General Internal Medicine 09/19/22 documented as of this encounter
--- OUTSIDE RECORDS SUMMARY | 2025-05-17 09:15 | XMS_ITS | Encounter Summary ---
Author Organization [employer] Address [address] [address] Care Team Providers Care Automotive Customer Experience Advisor Name Role Phone Rolanda Thakur MD Primary Care Provider +1- [phone] Reason for Visit * Reason Onset Date Comments Med Refill 04/04/2024 Encounter Details Date Type Department Care Team (Late st Contact Info) Description 04/04/2024 Telephone [facility] MEDICINE [address] [place] [address] Rolanda Thakur MD 505 [place], [place] [phone] Med Refill Social History Tobacco Use Types [...] 5 mg tablets To be sent to: [facility] documented in this encounter Plan of Treatment Not on file documented as of this encounter Visit Diagnoses Diagnosis Anxiety- Primary Anxiety state, unspecified documented in this encounter Care Teams Automotive Customer Experience Advisor Relationship Specialty Start Date End Date Rolanda Thakur MD 505 [place] [address] PCP - General Internal Medicine 09/19/22 documented as of this encounter
--- OUTSIDE RECORDS SUMMARY | 2025-05-17 09:15 | XMS_ITS | Encounter Summary ---
Author Organization [employer] Address [address] [place] [address] Care Team Providers Care Apparatus Lineman Name Role Phone Rolanda Thakur MD Primary Care Provider +1- [phone] Encounter Details Date Type Department Care Team ([facility] st Contact Info) Description 04/08/2024 Orders Only [facility] [address] [place], [place] [phone] Rolanda Thakur MD [address] [place] [address] UTI symptoms (Primary Dx) Social History Tobacco [...] Primary documented in this encounter Care Teams Apparatus Lineman Relationship Specialty Start Date End Date Rolanda Thakur MD [address] [place] [address] PCP - General Internal Medicine 09/19/22 documented as of this encounter
--- OUTSIDE RECORDS SUMMARY | 2025-05-17 09:15 | XMS_ITS | Encounter Summary ---
Author Organization [employer] Address [address] [place] [address] 7 [place] [address] Care Team Providers Care Development Executive Name Role Phone Rolanda Thakur MD Primary Care Provider [phone] Encounter Details Date Type Department Care Team ([facility] st Contact Info) Description 11/20/2024 Orders Only [facility] MED & PEDS 505 [place] [address] Rolanda Thakur MD 505 [place] [address] Type 2 diabetes mellitus without complication, without long-term current use of insulin ([facility]) (Primary Dx); UTI symptoms Social History Tobacco [...] current use of insulin ([facility]) UTI symptoms CBC WITH AUTO DIFFERENTIAL Routine 11/23/2024 9:00 AM EDT Type 2 diabetes mellitus without complication, without long-term current use of insulin ([facility]) BASIC METABOLIC PANEL Routine 11/23/2024 9:00 AM EDT Type 2 diabetes mellitus without complication, without long-term current use of insulin ([facility]) documented in this encounter Results * Culture, Urine, Routine (11/23/2024 9:05 AM EDT) Urine Urine specimen obtained by clean catch procedure / Unknown 11/23/2024 9:05 AM EDT 11/23/2024 11:26 AM EDT Comment:[facility] - 11/24/2024 11:22 AM EDT Urine Culture Report Result Urine Culture 10,000 to 50,000 cfu/ml Urine Culture Mixed bacterial hailey characteristic of Urine Culture urogenital contamination. Specimen Source: Urine clean catch us Rolanda Thakur MD LAB MICROBIOLOGY - GENERAL ORDERABLES Final Result [facility] [address] [place] [address] [phone] * (ABNORMAL) CBC auto differential (11/23/2024 9:00 AM EDT) White Blood Count 8.5 4.8 - 10.8 X10*3/uL [facility] Red Blood Count 4.27 4.20 - 5.50 X10*6/uL [facility] Hemoglobin 12.8 12.0 - 16.0 g/dl [facility] Hematocrit 37.0 37.0 - 47.0 % [facility] Mean Corpuscular Volume 86.7 80.0 - 98.0 fL [facility] Mean Corpuscular Hemoglobin 30.0 27.0 - 33.0 pg [facility] Mean Corpuscular HGB Conc 34.6 31.0 - 35.0 g/dl [facility] Red Cell Distribution Width 13.1 11.0 - 16.0 % [facility] Platelet Count 269 160 - 400 X10*3/uL [facility] Mean Platelet Volume 9.1(L) 9.4 - 12.3 fL [facility] Neutrophils Percent Auto 64.4 45 - 73 % [facility] Imm Gran Pct Auto 0.4 0.0 - 0.4 % [facility] Lymphocytes Percent Auto 23.8 20 - 40 % [facility] Monocytes Percent Auto 5.9 2 - 11 % [facility] Eosinophils Percent Auto 4.7(H) 0 - 4 % [facility] Basophils Percent Auto 0.8 0 - 2 % [facility] NRBC Pct Auto 0.0 0.0 - 0.2 /100WBC [facility] Neutrophils Absolute Auto 5.4 2.0 - 8.3 x10*3/uL [facility] Imm Gran Abs Auto 0.03 0.00 - 0.03 X10*3/uL [facility] Lymphocytes Absolute Auto 2.0 1.2 - 4.9 X10*3/uL [facility] Monocytes Absolute Auto 0.5 0.1 - 1.2 X10*3/uL [facility] Eosinophils Absolute Auto 0.4 0.0 - 0.4 X10*3/uL [facility] Basophils Absolute Auto 0.1 0.0 - 0.2 X10*3/uL [facility] NRBC Abs Auto 0.000 0.0 - 0.012 X10*3/uL [facility] Blood Venous blood specimen / Unknown 11/23/2024 9:00 AM EDT 11/23/2024 11:37 AM EDT us Rolanda Thakur MD LAB BLOOD ORDERABLES Final Result [facility] [address] [place] [phone] * (ABNORMAL) Basic Metabolic Panel (11/23/2024 9:00 AM EDT) Sodium 135 135 - 145 mmol/L [facility] Potassium 4.4 3.3 - 5.1 mmol/L [facility] Chloride 103 96 - 108 mmol/L [facility] Carbon Dioxide 24 22 - 29 mmol/L [facility] Anion Gap 12 12 - 20 [facility] Urea Nitrogen (BUN) 21(H) 9 - 16 mg/dL [facility] Creatinine, Serum 0.89 0.5 - 1.4 mg/dL [facility] Estimated Glomerular Filt Rate >60 [facility] Comment:Chronic Kidney Disea se: Estimated GFR < 60 mL/min/[id number] Kidney Disease: Estimated GFR < 15 mL/min/1.73m2 Glucose 161(H) 60 - 115 mg/dL [facility] Calcium 10.2 8.4 - 10.2 mg/dL [facility] Blood Venous blood specimen / Unknown 11/23/2024 9:00 AM EDT 11/23/2024 11:37 AM EDT Rolanda Thakur MD LAB BLOOD ORDERABLES Final Result [facility] [address] [place] [address] [phone] documented in this encounter Visit Diagnoses Diagnosis Type 2 diabetes mellitus without complication, without long-term current use of insulin ([facility])- Primary UTI symptoms documented in this encounter Additional Health Concerns Assessment Noted Time PHQ-9 Depression Total Score: 2 05/13/20 24 9:24 AM EDT documented as of this encounter Care Teams Development Executive Relationship Specialty Start Date End Date Rolanda Thakur MD [address] [place] [address] PCP - General Internal Medicine 09/19/22 documented as of this encounter
--- OUTSIDE RECORDS SUMMARY | 2025-05-17 09:15 | XMS_ITS | Encounter Summary ---
Author Organization [employer] Address [address] [place] [address] Care Team Providers Care Correspondence Review Clerk Name Role Phone Rolanda Thakur MD Primary Care Provider +1- [phone] Reason for Visit * Reason Comments Med Refill Encounter Details Date Type Department Care Team ([facility] st Contact Info) Description 05/20/2024 Refill [facility] MED & PEDS [address] [place] [address] Rolanda Thakur MD 505 [place] [address] Diabetic polyneuropathy associated with type 2 diabetes mellitus ([facility]) Social History Tobacco Use [...] polyneuropathy associated with type 2 diabetes mellitus ([facility]) documented in this encounter Additional Health Concerns Assessment Noted Time PHQ-9 Depression Total Score: 2 05/13/20 24 9:24 AM EDT documented as of this encounter Care Teams Correspondence Review Clerk Relationship Specialty Start Date End Date Rolanda Thakur MD [address] [place] [address] PCP - General Internal Medicine 09/19/22 documented as of this encounter
--- OUTSIDE RECORDS SUMMARY | 2025-05-17 09:15 | XMS_ITS | Encounter Summary ---
Author Organization [employer] Address [address] [place] [address] Care Team Providers Care Landscape Nurseryman Name Role Phone Rolanda Thakur MD Primary Care Provider +[phone]- [phone] Reason for Visit * Reason Onset Date Comments Created In Error 04/29/2024 Encounter Details Date Type Department Care Team (Late st Contact Info) Description 04/29/2024 Telephone [facility] MEDICINE [address] [place] [phone] Rolanda Thakur MD 505 [place], [place] [phone] Created In Error Social History Tobacco Use [...] on filedocumented in this encounter Care Teams Landscape Nurseryman Relationship Specialty Start Date End Date Rolanda Thakur MD [address] [place] [address] PCP - General Internal Medicine 09/19/22 documented as of this encounter
--- OUTSIDE RECORDS SUMMARY | 2025-05-17 09:15 | XMS_ITS | Encounter Summary ---
Author Organization [employer] Address [address] [facility] [address] 7[address] [place] [address] Care Team Providers Care Sighter Name Role Phone Rolanda Thakur MD Primary Care Provider +1- [phone] Encounter Details Date Type Department Care Team ([facility] st Contact Info) Description 05/13/2025 Telephone [facility] MEDICINE 230 [place] [address] Rolanda Thakur MD 505 [place] [address] Social History Tobacco Use Types Packs/Day Years [...] * Telephone Encounter - Harleen Manuel - 05/13/2025 3:13 PM EDT Pharmacy [facility] attempted outreach call on 05/13/25 for CDTM - Diabetes appointment; however, unable to reach patient. LVM for patient to contact Harleen Manuel at [phone]. documented in this encounter Plan of Treatment Not on file documented as of this encounter Visit Diagnoses Not on filedocumented in this encounter Additional Health Concerns Assessment Noted Time PHQ-9 Depression Total Score: 2 05/13/20 24 9:24 AM EDT documented as of this encounter Care Teams Sighter Relationship Specialty Start Date End Date Rolanda Thakur MD [address] [place] [address] PCP - General Internal Medicine 09/19/22 documented as of this encounter
--- OUTSIDE RECORDS SUMMARY | 2025-05-17 09:16 | XMS_ITS | Encounter Summary ---
Author Organization [employer] Address [address] [place] [address] Care Team Providers Care Sales Development Consultant Name Role Phone Rolanda Thakur MD Primary Care Provider +1- [phone] Reason for Visit * Reason Onset Date Comments Medication Question 10/23/2023 Encounter Details Date Type Department Care Team ([facility] st Contact Info) Description 10/23/2023 Telephone [facility] MEDICINE [address] [place] [address] Rolanda Thakur MD 505 [place], [place] [phone] Medication Question Social History Tobacco Use Types [...] on filedocumented in this encounter Care Teams Sales Development Consultant Relationship Specialty Start Date End Date Rolanda Thakur MD [address] [place] [address] PCP - General Internal Medicine 09/19/22 documented as of this encounter
--- OUTSIDE RECORDS SUMMARY | 2025-05-17 09:16 | XMS_ITS | Encounter Summary ---
Author Organization [employer] Address [address] [place] [address] Care Team Providers Care Technical Support Assistant Name Role Phone Rolanda Thakur MD Primary Care Provider +1- [phone] Encounter Details Date Type Department Care Team ([facility] st Contact Info) Description 12/07/2023 Telephone [facility] MEDICINE [address] [place] [phone] Rolanda Thakur MD 505 [place] [address] Social History Tobacco Use Types Packs/Day Years [...] on filedocumented in this encounter Care Teams Technical Support Assistant Relationship Specialty Start Date End Date Rolanda Thakur MD 505 [place] [address] PCP - General Internal Medicine 09/19/22 documented as of this encounter
--- OUTSIDE RECORDS SUMMARY | 2025-05-17 09:16 | XMS_ITS | Encounter Summary ---
Author Organization [employer] Address [address] [place] [address] Care Team Providers Care Assistant Manager Of Operations Name Role Phone Rolanda Thakur MD Primary Care Provider +1- [phone] Reason for Visit * Reason Onset Date Comments Referral 11/16/2023 Encounter Details Date Type Department Care Team ([facility] Contact Info) Description 11/16/2023 Telephone [facility] CHC MED & PEDS [address] [place], [place] [phone] Rolanda Thakur MD 505 [place] [address] Referral Social History Tobacco Use Types Packs/Day [...] MyChart encounter. Any questions, contact pt at [phone] documented in this encounter Plan of Treatment Not on file documented as of this encounter Visit Diagnoses Not on filedocumented in this encounter Care Teams Assistant Manager Of Operations Relationship Specialty Start Date End Date Rolanda Thakur MD [address] [place] [address] PCP - General Internal Medicine 09/19/22 documented as of this encounter
--- OUTSIDE RECORDS SUMMARY | 2025-05-17 09:16 | XMS_ITS | Encounter Summary ---
Author Organization [employer] Address [address] [address] Care Team Providers Care Airplane Patrol Pilot Name Role Phone Rolanda Thakur MD Primary Care Provider +[phone]- [phone] Reason for Visit * Reason Onset Date Comments Nurse Triage 12/12/2023 Encounter Details Date Type Department Care Team ([facility] st Contact Info) Description 12/12/2023 Telephone [facility] MEDICINE [address] [place] [address] Rolanda Thakur MD 505 [place], [place] [phone] Nurse Triage Social History Tobacco Use Types [...] from pt requesting to speak to PCP fly workerbuffet manager in regards to scheduled sick visit tmr, states was advised to contact PCP before scheduled appt to see how pt is doing, pt stated they still has a severe cough. Paper Machine Tender did advised appt is still expected. Pt is scheduled tmr 12/15/23 for ( chest congestion, cough , yellow nasal drainage. ) Please contact at [phone] * Telephone Encounter - Viktoria Schultz RN [...] point. Pt is advised to come to [facility] today to be seen since open till 8pm. PT is not sure if will be able to do that. Paper Machine Tender contacted Haylie Barrientos [facility] and asked if would be possible to schedule Pt at [facility] 12/15/23 340pm apt which Pt would be [...] on filedocumented in this encounter Care Teams Airplane Patrol Pilot Relationship Specialty Start Date End Date Rolanda Thakur MD [address] [place] [address] PCP - General Internal Medicine 09/19/22 documented as of this encounter
--- OUTSIDE RECORDS SUMMARY | 2025-05-17 09:16 | XMS_ITS | Encounter Summary ---
Author Organization [employer] Address [address] [address] Care Team Providers Care Potato Grader Name Role Phone Rolanda Thakur MD Primary Care Provider +1- [phone] Reason for Visit * Reason Comments Med Refill Encounter Details Date Type Department Care Team ([facility] st Contact Info) Description 08/27/2024 Refill [facility] MEDICINE [address] [place] [address] Rolanda Thakur MD 505 [place], [place] [phone] Type 2 diabetes mellitus without complication, without long-term current use of insulin ([facility]) Social History Tobacco [...] complication, without long-term current use of insulin ([facility]) documented in this encounter Additional Health Concerns Assessment Noted Time PHQ-9 Depression Total Score: 2 05/13/20 24 9:24 AM EDT documented as of this encounter Care Teams Potato Grader Relationship Specialty Start Date End Date Rolanda Thakur MD [address] [place] [address] PCP - General Internal Medicine 09/19/22 documented as of this encounter
--- OUTSIDE RECORDS SUMMARY | 2025-05-17 09:16 | XMS_ITS | Encounter Summary ---
Author Organization [employer] Address [address] [place] [address] Care Team Providers Care Contact Worker Lithography Name Role Phone Rolanda Thakur MD Primary Care Provider +1- [phone] Encounter Details Date Type Department Care Team ([facility] st Contact Info) Description 03/28/2024 Orders Only [facility]C MED & PEDS 505 [place], [place] [phone] Karen Alcantar MD [address] [place] [address] Social History Tobacco Use Types Packs/Day Years [...] on filedocumented in this encounter Care Teams Contact Worker Lithography Relationship Specialty Start Date End Date Rolanda Thakur MD [address] [place] [address] PCP - General Internal Medicine 09/19/22 documented as of this encounter
--- OUTSIDE RECORDS SUMMARY | 2025-05-17 09:16 | XMS_ITS | Encounter Summary ---
Author Organization [employer] Address [address] [place] [address] [address] [place] [address] Care Team Providers Care Supervising Deputy Name Role Phone Rolanda Thakur MD Primary Care Provider [phone] Reason for Referral * Consultation (Routine) - Closed Specialty Diagnoses / Procedures Referred By Freddy meadows Referred To Contact Neurology Diagnoses Other polyneuropathy Rolanda Thakur MD [address] [place] [address] Phone: tel: fax: [facility]rology [address] [place], [place] Phone: tel: fax: Referral ID Status Reason Start Date Expiration Date V isits Requested Visits Authorized [id number] Closed Specialty Services Required 11/22/2023 11/21/2024 1 1 * Consultation (Routine) - Closed Specialty Diagnoses / Procedures Referred By Freddy meadows Referred To Contact Physiatry Diagnoses Other polyneuropathy Rolanda Thakur MD [address] [place] [address] Phone: tel: fax: Referral ID Status Reason Start Date Expiration Date V isits Requested Visits Authorized [id number] Closed Specialty Services Required 11/17/2023 11/16/2024 1 1 Encounter Details Date Type Department Care Team ([facility] st Contact Info) Description 11/16/2023 Orders Only [facility] MED [facility]ED[facility] [address] [place] [address] Rolanda Thakur MD [address] [place] [address] Other polyneuropathy (Primary Dx) Social History Tobacco [...] Primary documented in this encounter Care Teams Supervising Deputy Relationship Specialty Start Date End Date Rolanda Thakur MD [address] [place] [address] PCP - General Internal Medicine 09/19/22 documented as of this encounter
--- OUTSIDE RECORDS SUMMARY | 2025-05-17 09:16 | XMS_ITS | Encounter Summary ---
Author Organization [employer] Address [address] [place] [address] Care Team Providers Care Data Operations Director Name Role Phone Rolanda Thakur MD Primary Care Provider [phone]- [phone] Reason for Visit * Reason Onset Date Comments Med Refill 12/26/2024 Encounter Details Date Type Department Care Team ([facility] st Contact Info) Description 12/26/2024 Refill [facility] MED & PEDS [address] [place] [address] Rolanda Thakur MD 505 [place] [address] Anxiety; Benign essential hypertension Social History Tobacco [...] documented as of this encounter Care Teams Data Operations Director Relationship Specialty Start Date End Date Rolanda Thakur MD [address] [place] [address] PCP - General Internal Medicine 09/19/22 documented as of this encounter
--- OUTSIDE RECORDS SUMMARY | 2025-05-17 09:16 | XMS_ITS | Encounter Summary ---
Author Organization [facility] Address [address] [place] [address] Care Team Providers Care Revenue Research Analyst Name Role Phone Rolanda Thakur MD Primary Care Provider +1 [phone] Reason for Referral * Consultation (Routine) - Closed Specialty Diagnoses / Procedures Referred By Contac t Referred To Contact Podiatry Diagnoses Type 2 diabetes mellitus without complication, without long-term current use of insulin (CMS/HCC) Rolanda Thakur MD [address] [place] [address] Phone: tel: fax: Carl Avitia DPM Phone: tel: fax: Referral ID Status Reason Start Date Expiration Date V isits Requested Visits Authorized [id number] Closed Specialty Services Required 11/01/2023 10/31/2024 1 1 Encounter Details Date Type Department Care Team (Late st Contact Info) Description 10/23/2023 Orders Only [facility] MED & PEDS [address] [place] [address] Rolanda Thakur MD [address] [place] [address] Acquired hypothyroidism (Primary Dx); Type 2 diabetes [...] (CMS/HCC) documented in this encounter Care Teams Revenue Research Analyst Relationship Specialty Start Date End Date Rolanda Thakur MD [address] [place] [address] PCP - General Internal Medicine 09/19/22 documented as of this encounter
--- OUTSIDE RECORDS SUMMARY | 2025-05-17 09:16 | XMS_ITS | Encounter Summary ---
Author Organization [employer] Address [address] [place] [address] Care Team Providers Care Rock Crusher Operator Name Role Phone Rolanda Thakur MD Primary Care Provider +1- [phone] Encounter Details Date Type Department Care Team [...] on filedocumented in this encounter Care Teams Rock Crusher Operator Relationship Specialty Start Date End Date Rolanda Thakur MD 505 [facility] [place] [address] PCP - General Internal Medicine 09/19/22 documented as of this encounter
--- OUTSIDE RECORDS SUMMARY | 2025-05-17 09:16 | XMS_ITS | Encounter Summary ---
Author Organization [employer] Address [address] [place] [address] Care Team Providers Care Hvac Lead Name Role Phone Rolanda Thakur MD Primary Care Provider +1 [phone] Reason for Referral * Consultation (Routine) - Closed Specialty Diagnoses / Procedures Referred By Contac t Referred To Contact Endocrinology Diagnoses Type 2 diabetes mellitus without complication, without long-term current use of insulin (CMS/HCC) Rolanda Thakur MD [address] [place] [address] Phone: tel: fax: [facility] [address] [place] [phone] Phone: tel: fax: Referral ID Status Reason Start Date Expiration Date V isits Requested Visits Authorized [id number] Closed Specialty Services Required 08/26/2024 08/26/2025 1 1 Encounter Details Date Type Department Care Team (Late st Contact Info) Description 08/26/2024 Orders Only [facility] MED & PEDS [address] [place] [address] [phone] Rolanda Thakur MD [address] [place] [address] Type 2 diabetes mellitus without complication, without [...] as of this encounter Care Teams Hvac Lead Relationship Specialty Start Date End Date Rolanda Thakur MD 505 [place] [address] PCP - General Internal Medicine 09/19/22 documented as of this encounter
--- OUTSIDE RECORDS SUMMARY | 2025-05-17 09:16 | XMS_ITS | Encounter Summary ---
Author Organization [employer] Address [address] [place] [address] Care Team Providers Care Repeater Chief Name Role Phone Rolanda Thakur MD Primary Care Provider +1- [phone] Encounter Details Date Type Department Care Team ([facility] st Contact Info) Description 12/07/2023 Telephone [facility] [address] [place] [phone] Rolanda Thakur MD 505 [place] [address] Social History Tobacco Use Types Packs/Day Years [...] on filedocumented in this encounter Care Teams Repeater Chief Relationship Specialty Start Date End Date Rolanda Thakur MD 505 [place] [address] PCP - General Internal Medicine 09/19/22 documented as of this encounter
--- OUTSIDE RECORDS SUMMARY | 2025-05-17 09:16 | XMS_ITS | Encounter Summary ---
Author Organization [employer] Address [address] [address] Care Team Providers Care Centrifugal Casting Machine Operator Name Role Phone Rolanda Thakur MD Primary Care Provider +1- [phone] Reason for Visit * Reason Onset Date Comments Nurse Triage 08/09/2024 Encounter Details Date Type Department Care Team ([facility] st Contact Info) Description 08/09/2024 Telephone [facility] MEDICINE [address] [place] [address] Rolanda Thakur MD 505 [place], [place] [phone] Nurse Triage Social History Tobacco Use Types [...] precautions and reasons to call back. Reviewed [facility] operating hours and that wait times vary. Protocol Used: Neck Pain or Stiffness (Adult) Protocol-Based Disposition: See in Office or Video Visit Today or Tomorrow Future Appointments Date Time Provider Department Center 08/10/2024 9:40 AM [facility] 2 WALK-IN [facility] Insurance verified as active per Real Time Eligibility in [facility]. Positive Triage Question: * Tenderness [...] documented as of this encounter Care Teams Centrifugal Casting Machine Operator Relationship Specialty Start Date End Date Rolanda Thakur MD [address] [place] [address] PCP - General Internal Medicine 09/19/22 documented as of this encounter
--- OUTSIDE RECORDS SUMMARY | 2025-05-17 09:16 | XMS_ITS | Encounter Summary ---
Author Organization [employer] Address [address] [address] Care Team Providers Care Elastic Attacher Zigzag Name Role Phone Rolanda Thakur MD Primary Care Provider +1- [phone] Reason for Visit * Reason Onset Date Comments FYI 10/11/2024 Encounter Details Date Type Department Care Team ([facility] st Contact Info) Description 10/11/2024 Telephone [facility] [address] [place] [address] Rolanda Thakur MD 505 [place], [place] [phone] FYI Social History Tobacco Use Types Packs/Day [...] documented as of this encounter Care Teams Elastic Attacher Zigzag Relationship Specialty Start Date End Date Rolanda Thakur MD [address] [place] [address] PCP - General Internal Medicine 09/19/22 documented as of this encounter
--- OUTSIDE RECORDS SUMMARY | 2025-05-17 09:16 | XMS_ITS | Encounter Summary ---
Author Organization [employer] Address [address] [place] [address] Care Team Providers Care Forder Operator Name Role Phone Rolanda Thakur MD Primary Care Provider +1- [phone] Encounter Details Date Type Department Care Team ([facility] st Contact Info) Description 08/18/2023 Orders Only [facility] MED & PEDS 505 [place], [place] [phone] Rolanda Thakur MD 505 [place] [address] Social History Tobacco Use Types Packs/Day Years [...] on filedocumented in this encounter Care Teams Forder Operator Relationship Specialty Start Date End Date Rolanda Thakur MD 505 [place] [address] PCP - General Internal Medicine 09/19/22 documented as of this encounter
--- OUTSIDE RECORDS SUMMARY | 2025-05-17 09:16 | XMS_ITS | Encounter Summary ---
Author Organization [employer] Address [address] [address] Care Team Providers Care Health Services Director Name Role Phone Rolanda Thakur MD Primary Care Provider +1- [phone] Reason for Visit * Reason Onset Date Comments Med Refill 12/26/2024 Encounter Details Date Type Department Care Team (Late st Contact Info) Description 12/26/2024 Refill [facility] MED[facility] [address] [place] [address] Rolanda Thakur MD [address] [place] [address] Social History Tobacco Use Types Packs/Day Years [...] as of this encounter Care Teams Health Services Director Relationship Specialty Start Date End Date Rolanda Thakur MD [address] [place] [address] PCP - General Internal Medicine 09/19/22 documented as of this encounter
--- OUTSIDE RECORDS SUMMARY | 2025-05-17 09:16 | XMS_ITS | Encounter Summary ---
Author Organization [email or web address] Address 75 [facility] 7 [place] [address] Care Team Providers Care Donor Specialist Name Role Phone Rolanda Thakur MD Primary Care Provider +1- [phone] Reason for Visit * Reason Onset Date Comments Med Refill 08/19/2024 Encounter Details Date Type Department Care Team (Late st Contact Info) Description 08/19/2024 Refill [facility] [address] [place] [address] Wyatt Huizar MD 230 [place] [address] Neck pain on left side Social History [...] documented as of this encounter Care Teams Donor Specialist Relationship Specialty Start Date End Date Rolanda Thakur MD [address] [place] [address] PCP - General Internal Medicine 09/19/22 documented as of this encounter
--- OUTSIDE RECORDS SUMMARY | 2025-05-17 09:16 | XMS_ITS | Encounter Summary ---
Author Organization [employer] Address [address] [place] [address] Care Team Providers Care Hospice Superintendent Name Role Phone Rolanda Thakur MD Primary Care Provider +1- [phone] Encounter Details Date Type Department Care Team ([facility] st Contact Info) Description 10/27/2023 Telephone [facility] MED[facility]INE [address] [place] [address] [phone] Rolanda Thakur MD 505 [place] [address] Social History Tobacco Use Types Packs/Day Years [...] on filedocumented in this encounter Care Teams Hospice Superintendent Relationship Specialty Start Date End Date Rolanda Thakur MD 505 [place] [address] PCP - General Internal Medicine 09/19/22 documented as of this encounter
--- OUTSIDE RECORDS SUMMARY | 2025-05-17 09:16 | XMS_ITS | Encounter Summary ---
Author Organization [employer] Address [address] [place] [address] 7 [place] [address] Care Team Providers Care Shampoo Technician Name Role Phone Rolanda Thakur MD Primary Care Provider +1- [phone] Reason for Visit * Reason Onset Date Comments Med Refill 12/26/2024 Encounter Details Date Type Department Care Team ([facility] st Contact Info) Description 12/26/2024 Refill [facility] MED & PEDS 505 [place] [address] Maren Hough MD 505 [place] [address] Social History Tobacco Use Types Packs/Day Years [...] documented as of this encounter Care Teams Shampoo Technician Relationship Specialty Start Date End Date Rolanda Thakur MD [address] [place] [address] PCP - General Internal Medicine 09/19/22 documented as of this encounter
--- OUTSIDE RECORDS SUMMARY | 2025-05-17 09:16 | XMS_ITS | Encounter Summary ---
Author Organization [email or web address] Address [address] [place] [address] Care Team Providers Care Buckle Sewer Machine Name Role Phone Rolanda Thakur MD Primary Care Provider +1- [phone] Encounter Details Date Type Department Care Team ([facility] st Contact Info) Description 10/27/2023 Orders Only [facility] CH[facility] MED & PEDS [address] [place], [place] [phone] Bhavesh Yang, RN 505 [place] [address] Social History Tobacco Use Types Packs/Day Years [...] filedocumented in this encounter Care Teams Buckle Sewer Machine Relationship Specialty Start Date End Date Rolanda Thakur MD [address] [place] [address] PCP - General Internal Medicine 09/19/22 documented as of this encounter
--- OUTSIDE RECORDS SUMMARY | 2025-05-17 09:16 | XMS_ITS | Encounter Summary ---
Author Organization [email or web address] Address [address] [place] [address] Care Team Providers Care Auction Block Clerk Name Role Phone Rolanda Thakur MD Primary Care Provider +1- [phone] Reason for Visit * Reason Onset Date Comments Medication Question 12/09/2022 Encounter Details Date Type Department Care Team ([facility] st Contact Info) Description 12/09/2022 Telephone [facility] CH[facility] MED & PEDS 505 [place], [place] [phone] Rolanda Thakur MD [address] [place] [address] Medication Question Social History Tobacco Use Types [...] - 12/09/2022 3:51 PM EDT Tc from [facility] requesting a clarification in new script for Synthroid 50 MCG tablet if dosage was sent incorrectly because in last script (levothyroxine (Synthroid) 150 MCG tablet) it [id number] MCG and New script is it 50 mcg so pharmacy is requesting some clarification Please contact Pharmacy at [phone] documented in this encounter Plan of Treatment Not on file documented as of this encounter Visit Diagnoses Not on filedocumented in this encounter Care Teams Auction Block Clerk Relationship Specialty Start Date End Date Rolanda Thakur MD [address] [place] [address] PCP - General Internal Medicine 09/19/22 documented as of this encounter
--- OUTSIDE RECORDS SUMMARY | 2025-05-17 09:16 | XMS_ITS | Encounter Summary ---
Author Organization [employer] Address [address] [place] [address] Care Team Providers Care Hook And Eye Machine Operator Name Role Phone Rolanda Thakur MD Primary Care Provider +1- [phone] Encounter Details Date Type Department Care Team ([facility] st Contact Info) Description 12/28/2023 Orders Only [facility] MED & PEDS 505 [place], [place] [phone] Rolanda Thakur MD [address] [place] [address] Social History Tobacco Use Types Packs/Day Years [...] on filedocumented in this encounter Care Teams Hook And Eye Machine Operator Relationship Specialty Start Date End Date Rolanda Thakur MD [address] [place] [address] PCP - General Internal Medicine 09/19/22 documented as of this encounter
--- OUTSIDE RECORDS SUMMARY | 2025-05-17 09:16 | XMS_ITS | Encounter Summary ---
Author Organization [employer] Address 75 [facility] 7 [place] [address] Care Team Providers Care Wood Setter Name Role Phone Rolanda Thakur MD Primary Care Provider +1- [phone] Encounter Details Date Type Department Care Team ([facility] Contact Info) Description 10/08/2024 Telephone [facility] CHC MED & PEDS 505 [place] [address] Rolanda Thakur MD 505 [place] [address] Social History Tobacco Use Types Packs/Day Years [...] as of this encounter Care Teams Wood Setter Relationship Specialty Start Date End Date Rolanda Thakur MD [address] [place] [address] PCP - General Internal Medicine 09/19/22 documented as of this encounter
--- OUTSIDE RECORDS SUMMARY | 2025-05-17 09:16 | XMS_ITS | Encounter Summary ---
Author Organization [employer] Address [address] [place] [address] Care Team Providers Care Framing Manager Name Role Phone Rolanda Thakur MD Primary Care Provider +1- [phone] Reason for Visit * Reason Onset Date Comments Med Refill 10/27/2023 Encounter Details Date Type Department Care Team (Late st Contact Info) Description 10/27/2023 Telephone [facility] MEDICINE [address] [place] [address] Rolanda Thakur MD [address] [place], [place] [phone] Med Refill Social History Tobacco Use Types [...] on medication 125 Please contact pt @ [phone] No meds. * Telephone Encounter - Haylie Cantor RN - 10/27/2023 3:44 PM EST Patient reporting alternating days of synthroid 125 mcg and synthroid 137 mcg. Requesting new script for synthroid 125 mcg. Please review and advise, thanks. Tc from pt requesting levothyroxine (Synthroid) 125 MCG tablet, signwriter do not see med in chart but pt stated has been taking this medication for 10 years, pt switch 137 and 125 every day, signwriter attempted to contact pharmacy for clarifications but [facility] [address] open at 9:00AM. * Telephone Encounter - Jenny Neff - 10/27/2023 8:31 AM EST Tc from pt requesting levothyroxine (Synthroid) 125 MCG tablet, signwriter do not see med in chart but pt stated has been taking this medication for 10 years, pt switch 137 and 125 every day, signwriter attempted to contact pharmacy for clarifications but [facility] [address] open at 9:00AM. documented in this encounter Plan of Treatment Not on file documented as of this encounter Visit Diagnoses Not on filedocumented in this encounter Care Teams Framing Manager Relationship Specialty Start Date End Date Rolanda Thakur MD [address] [place] [address] PCP - General Internal Medicine 09/19/22 documented as of this encounter
--- OUTSIDE RECORDS SUMMARY | 2025-05-17 09:16 | XMS_ITS | Encounter Summary ---
Author Organization [employer] Address [address] [place] [address] Care Team Providers Care Application Designer Name Role Phone Rolanda Thakur MD Primary Care Provider +1- [phone] Reason for Visit * Reason Onset Date Comments Med Refill 12/26/2024 Encounter Details Date Type Department Care Team ([facility] st Contact Info) Description 12/26/[address] [facility] CHC MED & PEDS [address] [place] [address] Rolanda Thakur MD 505 [place] [address] Acquired hypothyroidism Social History Tobacco Use Types [...] documented as of this encounter Care Teams Application Designer Relationship Specialty Start Date End Date Rolanda Thakur MD [address] [place] [address] PCP - General Internal Medicine 09/19/22 documented as of this encounter
--- OUTSIDE RECORDS SUMMARY | 2025-05-17 09:16 | XMS_ITS | Encounter Summary ---
Author Organization [employer] Address [address] [place] [address] Care Team Providers Care Nutrition Specialist Name Role Phone Rolanda Thakur MD Primary Care Provider +1- [phone] Reason for Visit * Reason Onset Date Comments Referral 09/29/2022 Encounter Details Date Type Department Care Team ([facility] st Contact Info) Description 09/29/2022 Telephone [facility] MED & PEDS 505 [place] [address] Rolanda Thakur MD 505 [place] [address] Referral Social History Tobacco Use Types Packs/Day [...] to fax order to Dr Dempsey on [phone] Dempsey's office on [phone]. Will forward message to provider. RN called Roxanne and gave her the phone and fax number to Dr Dempsey's office and also to f/u when [facility] order is placed by PCP. * Telephone Encounter - Machelle [place] RN - 10/03/2022 10:09 AM EST Return call placed to Haylie at [facility], spoke with Jumana who states their office donot see pt for diabetic polyneuropathy but instead sees pt for foot drop or other issue. States Haylieis unavailable at this time but will informed her to call [facility] back if needed. Will forward message to PCP as FYI. * Telephone Encounter - Brinda Barnard - 09/29/2022 1:30 PM EST Tc from Haylie from [facility] med [facility] rehab calling to inform they need more dx clarification for referral that was sent . and phone # [phone] documented in this encounter Plan of Treatment Not on file documented as of this encounter Visit Diagnoses Diagnosis Diabetic polyneuropathy associated with diabetes mellitus due to underlying condition (CMS/[facility])- Primary documented in this encounter Care Teams Nutrition Specialist Relationship Specialty Start Date End Date Rolanda Thakur MD [address] [place] [address] PCP - General Internal Medicine 09/19/22 documented as of this encounter
--- OUTSIDE RECORDS SUMMARY | 2025-05-17 09:16 | XMS_ITS | Encounter Summary ---
Author Organization [employer] Address [address] [address] Care Team Providers Care Assistant Plant Manager Name Role Phone Rolanda Thakur MD Primary Care Provider +1- [phone] Reason for Visit * Reason Onset Date Comments Nurse Triage 09/24/2024 Encounter Details Date Type Department Care Team ([facility] st Contact Info) Description 09/24/2024 Telephone [facility] 230 [place] [address] Rolanda Thakur MD 505 [place], [place] [phone] Nurse Triage Social History Tobacco Use Types [...] WIC for today as no appts in [facility]. Pt states gets panic attacks if has to wait . Pt advised unfortunately no appts in [facility]> Unable to schedule ahead for WIC. Pt states will seek [facility] in [place]. Will send to team as FYI to [...] acuity questions The caller accepted this outcome. [phone] documented in this encounter Plan of Treatment Not on file documented as of this encounter Visit Diagnoses Not on filedocumented in this encounter Additional Health Concerns Assessment Noted Time PHQ-9 Depression Total Score: 2 05/13/20 24 9:24 AM EDT documented as of this encounter Care Teams Assistant Plant Manager Relationship Specialty Start Date End Date Rolanda Thakur MD [address] [place] [address] PCP - General Internal Medicine 09/19/22 documented as of this encounter
--- OUTSIDE RECORDS SUMMARY | 2025-05-17 09:16 | XMS_ITS | Encounter Summary ---
Author Organization [employer] Address [address] [place] [address] Care Team Providers Care Heel Curver Name Role Phone Rolnada Thakur MD Primary Care Provider +1- [phone] Reason for Visit * Reason Onset Date Comments Nurse Triage 01/03/2024 Encounter Details Date Type Department Care Team ([facility] st Contact Info) Description 01/03/2024 Telephone [facility] MEDICINE [address] [place] [address] Rolanda Thakur MD 505 [place], [place] [phone] Nurse Triage Social History Tobacco Use Types [...] on filedocumented in this encounter Care Teams Heel Curver Relationship Specialty Start Date End Date Rolanda Thakur MD [address] [place] [address] PCP - General Internal Medicine 09/19/22 documented as of this encounter
--- OUTSIDE RECORDS SUMMARY | 2025-05-17 09:16 | XMS_ITS | Clinical Summary ---
Author Organization [employer] Address [address] [place] [address] [place] [address] Care Team Providers Care Divisional Human Resources Director Name Role Phone Rolanda Thakur MD Primary Care Provider [phone] Allergies Active Allergy Reactions Criticality Noted Date [...] complication, without long-term current use of insulin ([facility]) Chew 4 tablets (16 g) if needed for low blood sugar. 50 tablet 12 03/06/20 24 Active glucose blood (OneTouch Ultra) test stripIndications: Type 2 diabetes mellitus without complication, without long-term current use of insulin ([facility]) USE DIRECTED TO TEST BLOOD GLUCOSE [...] complication, without long-term current use of insulin ([facility]) Use to test blood sugar 2 times daily 1 kit 12/27/19 25 Active cloNIDine (Catapres) 0.1 MG tabletIndications :Anxiety,Benign essential hypertension TAKE 1 TABLET(0.1 MG) BY MOUTH THREE TIMES DAILY 90 tablet 2 12/27/19 25 Active cetirizine (ZyrTEC) 10 MG tablet TAKE 1 TABLET BY MOUTH DAILY 30 tablet 11 01/25/20 25 Active Continuous Glucose Beam Warper (Dexcom G7 Beam Warper) deviceIndications :Type 2 diabetes mellitus without complication, without long-term current use of insulin ([facility]) USE DIRECTED 1 each 02/19/20 25 [...] 25 Active Blood Glucose Monitoring Suppl (FreeStyle [place] Lite) w/Device kitIndications:Ty pe 2 diabetes mellitus [...] OR 3 TIMES A DAY 100 each 04/18/20 25 Active glucose blood (Accu-Chek Guide [...] DAY 90 capsule 2 05/09/20 25 Active OneTouch Delica Lancets 33G misc Use to check blood sugar four times daily 2024 Discontinued ascorbic acid (Vitamin C) 1000 MG tablet TAKE 1 TABLET BY MOUTH EVERY DAY 30 tablet 08/15/20 24 2024 Discontinued D3-1000 25 MCG (1000 UT) capsuleIndication s:Vitamin D deficiency TAKE 1 CAPSULE BY MOUTH EVERY DAY 90 capsule 2 08/15/20 24 2024 Discontinued capsaicin (Zostrix) 0.025 % creamIndications: Spondylosis of [...] 3 02/11/20 25 2024 Discontinued(D ose adjustment) clonazePAM (KlonoPIN) 0.5 MG tabletIndications :Panic attack,Anxiety [...] for up to 3 days. 10 tablet 05/01/20 25 2024 ciprofloxacin (Cipro) 500 MG tabletIndications :Recent urinary tract infection Take 1 tablet (500 mg) by mouth 2 times daily for 7 days. 14 tablet 05/09/20 25 2024 Active Problems Problem Noted Date Diagnosed Date [...] Plan: Augmentin BID x 10 days Nasal [place] Follow up if worsening or no improvement [...] she reported sxs has been presence since covid but exacerbated this summer with new allergies and financial instability. She reported that she needs to figure out what is causing it. She declined referral for Psychiatrist at this time. PLAN: New/Additional Services needed PCP management Off-site services for Behavioral Health Integration Plan External OP therapy referral Patient Self Plan Patient to utilize skills provided in intervention , [facility], Patient to engage in OP therapy , and Patient to reach out to [facility] as needed Swelling of lip, tongue, and throat 05/10/2024 Assessment & Plan (05/22/2024 1:00 PM EDT): Patient reports episodes of swelling of exposure to different antigens, at this moment given recurrence and symptoms affecting patients daily, will strongly benefit of assessment from trade show manager to help elucidate etiology of symptoms. Peripheral [...] organization. Date Type Department Care Team Description 05/16/2025 Refill [facility] [address] [place] [address] Rolanda Thakur MD Panic attack; Anxiety 05/13/[address] [address] Rolanda Thakur MD 05/12/2025 Results Follow-Up [facility] [address] [place] [address] Rolanda Thakur MD Culture, Urine, Routine 05/10/2025 Orders Only GENERIC EXTERNAL DATA DEPARTMENT Provider, Generic External Data 05/08/2025 Refill [facility] [address] [place] [address] Rolanda Thakur MD Vitamin D deficiency 05/08/2025 Refill [facility] [address] [place] [address] Rolanda Thakur MD Recent urinary tract infection 05/07/2025 Refill [facility] [address] [place] [address] Rolanda Thakur MD 05/07/[address] [address] Rolanda Thakur MD 05/02/[address] [address] Rolanda Thakur MD Results 05/02/2025 Results Follow-Up [facility] [address] [place] [address] Ilsa Boyd, RN Culture, Urine, Routine 05/02/2025 Telephone [facility] [address] [place] [address] Rolanda Thakur MD 05/01/2025 Orders Only [facility] [address] [place] [phone] Rolanda Thakur MD Recent urinary tract infection (Primary Dx) 05/01/[address] [address] Rolanda Thakur MD Results 04/30/2025 Orders Only [facility] [address] [place] [phone] Rolanda Thakur MD Recurrent UTI (Primary Dx) 04/30/2025 Results Follow-Up [facility] [address] [place] [address] Rolanda Thakur MD XR Hand 3+ Views Right, XR Hand 3+ Views Left 04/22/2025 3:40 PM EDT Office Visit [facility] [address] [place] [phone] Rolanda Thakur MD Traumatic ecchymosis of left hand, initial encounter (Primary Dx); Right hand pain; Benign essential hypertension 04/22/2025 Travel 04/22/[address] [address] Rolanda Thaukr MD call back / orders 04/22/2025 Results Follow-Up [facility] [address] [place] [phone] Migdalia Loza, COUNTER CLERK [employer] TSH W/Reflex to FT4, Urinalysis, Complete, with Reflex to Culture, Culture, Urine, Routine 04/21/2025 Refill [facility] [address] [place] [phone] Rolanda Thakur MD Panic attack; Anxiety 04/18/2025 8:30 AM EDT Office Visit [facility] [address] [place] [address] Migdalia Loza FNP Urinary urgency (Primary Dx); Acquired hypothyroidism; Type 2 diabetes mellitus without complication, without long-term current use of insulin ([facility]) 04/18/2025 Refill [facility] [address] [place] [address] Rolanda Thakur MD Acquired hypothyroidism; Type 2 diabetes mellitus without complication, without long-term current use of insulin ([facility]) 04/18/2025 Telephone [facility] [address] [place] [address] Migdalia Loza FNP Appointment Request 04/18/2025 Travel 04/18/2025 Orders Only [facility] [address] [place] [phone] Migdalia Loza FNP Acquired hypothyroidism (Primary Dx); UTI symptoms; Type 2 diabetes mellitus without complication, without long-term current use of insulin ([facility]) 04/17/[address] [address] Rolanda Thakur MD Nurse Triage 04/17/2025 Telephone [facility] [address] [place] [address] Rolanda Thakur MD Med Refill 04/16/2025 Refill [facility] [address] [place] [address] Rolanda Thakur MD Acquired hypothyroidism 04/15/2025 Results Follow-Up [facility] [address] [place] [address] Kimberly Bronson, MINOO Basic Metabolic Panel 04/14/2025 Orders Only [facility] [address] [place] [phone] Rolanda Thakur MD Type 2 diabetes mellitus without complication, without long-term current use of insulin ([facility]) (Primary Dx); Recent urinary tract infection 04/12/2025 Orders Only GENERIC EXTERNAL DATA DEPARTMENT Provider, Generic External Data 04/11/2025 Refill [facility] [address] [place], [place] [phone] Vasques MD Type 2 diabetes mellitus without complication, without long-term current use of insulin ([facility]) 03/31/2025 Refill [facility] [address] [place], [place] [phone] Vasques MD Panic attack; Anxiety 03/31/2025 Refill [facility] [address] [place], [place] [phone] Vasques MD Panic attack; Anxiety 03/24/2025 Results Follow-Up [facility] [address] [place], [place] [phone] Vasques MD T-SPOT .TB 03/22/2025 Refill [facility] [address] [place] [address] Rolanda Vasques MD 03/20/2025 Orders Only [facility] [address] [place], [place] [phone] Vasques MD 03/20/2025 Refill [facility] [address] [place] [address] Rolanda Vasques MD 03/20/2025 Results Follow-Up [facility] [address] [place], [place] [phone] Vasques MD TSH W/Reflex to FT4, CBC auto differential 03/19/2025 Orders Only [facility] [address] [place] [address] Rolanda Toribio MD 03/19/2025 Telephone [facility] [address] [place], [place] Rolanda Murillo MD Appointment Request; Lab Orders 03/19/2025 Telephone [facility] [address] [place] [address] Rolanda Thakur MD PE APPT 03/11/2025 Telephone [facility] [address] [place] [address] Rolanda Thakur MD Call Back Request 03/06/2025 Orders Only [facility] [address] [place] [address] Rolanda Thakur MD Type 2 diabetes mellitus without complication, without long-term current use of insulin ([facility]) (Primary Dx) 03/02/2025 Refill [facility] [address] [place] [address] Rolanda Thakur MD Diabetic polyneuropathy associated with type 2 diabetes mellitus (CMS/HCC) 02/28/2025 Telephone [facility] [address] [place] [address] Rolanda Thakur MD Referral 02/26/2025 Telephone [facility] [address] [place] [address] Rolanda Thakur MD Medication Question 02/18/2025 Refill [facility] [address] [place] [address] Rolanda Thakur MD Type 2 diabetes mellitus without complication, without long-term current use of insulin (CMS/HCC) 02/18/2025 Telephone [facility] [address] [place] [address] Rolanda Thakur MD Med Refill 02/17/2025 Refill [facility] [address] [place] [address] Rolanda Thakur MD Type 2 diabetes mellitus without complication, without long-term current use of insulin (CMS/HCC); Panic attack; Anxiety 02/17/2025 Refill [facility] [address] [place] [address] Rolanda Thakur MD Type 2 diabetes mellitus without complication, without long-term current use of insulin ([facility]); Neck pain on left side; Panic attack; Anxiety from Last 3 Months [...] 2025 , 06/26/2023, 06/27/2021, Additional history exists Depression Screening 05/13/2025 05/13/2024, 05/13/20 Diabetes: Hemoglobin A1C 08/09/2025 025, 02/05/2025, 07/06/2024, Additional history exists FOBT 08/09/2025 08/09/2024, 01/03/2022 Alcohol/Substance Use Screening 09/10/2025 09/10/2024 SDOH Screening 09/10/2025 09/10/2024 Eye Exam 09/26/2025 09/26/2023 Tobacco Screening 02/09/2026 02/09/2025 Diabetes: Urine Protein Screening 05/10/2026 05/10/2025, 07/17/2024 Lipid Panel 05/10/2026 05/10/2025, 03/22, 07/17/2024, Additional history exists Mammogram 12/17/2026 12/17/2024, 11/20, [...] Procedure Name Priority Date/Time Associated Diagnosis Comments PROTEIN CREATININE RATIO, URINE Routine 05/10/2025 8:50 AM EDT ALBUMIN, RANDOM URINE W/CREATININE Routine 05/10/2025 8:50 AM EDT URINALYSIS, COMPLETE Routine 05/10/2025 8:50 AM EDT CULTURE, URINE, ROUTINE Routine 05/10/2025 8:50 AM EDT Recent urinary tract infection TSH W/REFLEX TO FT4 Routine 05/10/2025 7 :54 AM EDT LIPID PANEL, STANDARD Routine 05/10/2025 7:54 AM EDT COMPREHENSIVE METABOLIC PANEL Routine 05/10/2025 7:54 AM EDT HEMOGLOBIN A1C Routine 05/10/2025 7:54 AM EDT CBC WITH AUTO DIFFERENTIAL Routine 05/10/2025 7:54 AM EDT XR HAND 3+ VIEWS LEFT Routine 04/30/2025 8:55 AM EDT Traumatic ecchymosis of left hand, initial encounter Right hand pain XR HAND 3+ VIEWS RIGHT Routine 04/30/2025 8:55 AM EDT Traumatic ecchymosis of left hand, initial encounter Right hand pain URINALYSIS, COMPLETE, WITH REFLEX TO CULTURE Routine 04/30/2025 8:37 AM EDT Type 2 diabetes mellitus without complication, without long-term current use of insulin ([facility]) Recent urinary tract infection CULTURE, URINE, [...] 03/19/2025 3 :13 PM EDT Acquired hypothyroidism HM MAMMOGRAPHY Routine 12/17/2024 8:40 AM EDT LAB COLOGUARD COLON CANCER SCREEN Routine 08/09/2024 8:30 AM EST Screening for colon cancer HEPATITIS C AB W/REFL TO HCV RNA, QN, PCR Routine 07/17/2024 3:20 PM EST Type 2 diabetes mellitus without complication, without long-term current use of insulin ([facility]) Decreased GFR from Last 3 Months or Most Recently Relevant to Health Maintenance Results * Protein Creatinine Ratio, Urine (05/10/2025 8:50 AM EDT) Protein, Total, Random Urine <7 <12 mg/dL [facility] Protein/Creatin ine Ratio, Ur TNP <0.2 [facility] Comment:Unable to calculate urine protein creatinine ratio due tolow creatinine or protein result. 05/10/2025 8:50 AM EDT 05/10/2025 11:44 AM EDT us Generic External Data Provider LAB URINE ORDERAB LES Final Result Performing Organization Address [facility] Co de Phone Number [facility] [address] [place] [phone] * Albumin, Random Urine W/Creatinine (05/10/2025 8:50 AM EDT) Creatinine, Urine 85.42 mg/dL [facility] Microalbumin Urine 12.0 mg/L [facility] Microalbum Creatinine Ratio Ur 14.0 <30 ug/mg cr [facility] Comment:Albumin/Creatinine R atio Reference Ranges: Normal: < 30 ug/mg creatinine Microalbuminuria: 30 - 300 ug/mg creatinineClinical Albuminuria: > 300 ug/mg creatinine 05/10/2025 8:50 AM EDT 05/10/2025 11:44 AM EDT us Generic External Data Provider LAB URINE ORDERAB LES Final Result Performing Organization Address [facility] Co de Phone Number [facility] [address] [place] [phone] * (ABNORMAL) Urinalysis Complete (05/10/2025 8:50 AM EDT) Color Urine Dark Yellow [facility] Appearance Urine Clear [facility] PH 5.5 5.0 - 9.0 [facility] Glucose Urine UA Negative Negative mg/dL [facility] Urine Blood Negative Negative [facility] Specific [place] - Urine 1.015 1.005 - 1.025 [facility] Urine Protein Negative Neg-Trace mg/dL [facility] Urine Ketones Negative Negative mg/dL [facility] Nitrite Urine Negative Negative [facility] Leukocyte Esterase Urine Trace(A) Negative [facility] RBC Urine 0-2 0 - 2 /HPF [facility] Urine WBC 0-5 0 - 5 /HPF [facility] Urine Squamous Epithelial Cell 0-2 0 - 2 /HPF [facility] Urine Bacteria None Seen None Seen [facility] Hyaline Casts, Urine 0-2 0 - 2 /LPF [facility] 05/10/2025 8:50 AM EDT 05/10/2025 11:44 AM EDT us Generic External Data Provider LAB URINE ORDERAB LES Final Result Performing Organization Address [facility] de Phone Number [facility] [address] [place] [phone] * Culture, Urine, Routine (05/10/2025 8:50 AM EDT) Only the most recent of3 resultswithin the time period is included. Urine Urine specimen obtained by clean catch procedure / Unknown 05/10/2025 8:50 AM EDT 05/10/2025 11:44 AM EDT Comment:UACC Narrative [facility] - 05/11/2025 8:42 AM EDT Urine Culture No growth. Specimen Source: Urine clean catch us Rolanda Thakur MD LAB MICROBIOLOGY - GENERAL ORDERABLES Final Result Performing Organization Address [facility]/ZIP Co de Phone Number [facility] [address] [place] [phone] * TSH with Reflex to Free T4 (05/10/2025 7:54 AM EDT) Only the most recent of4 resultswithin the time period is included. TSH reflex Free T4 2.82 0.32 - 4.0 uIU/mL [facility] 05/10/2025 7:54 AM EDT 05/10/2025 10:59 AM EDT us Generic External Data Provider LAB BLOOD ORDERAB LES Final Result [facility] [address] [place] [phone] * (ABNORMAL) CBC auto differential (05/10/2025 7:54 AM EDT) Only the most recent of2 resultswithin the time period is included. White Blood Count 7.0 4.8 - 10.8 X10*3/uL [facility] Red Blood Count 4.07(L) 4.20 - 5.50 X10*6/uL [facility] Hemoglobin 12.2 12.0 - 16.0 g/dl [facility] Hematocrit 35.5(L) 37.0 - 47.0 % [facility] Mean Corpuscular Volume 87.2 80.0 - 98.0 fL [facility] Mean Corpuscular Hemoglobin 30.0 27.0 - 33.0 pg [facility] Mean Corpuscular HGB Conc 34.4 31.0 - 35.0 g/dl [facility] Red Cell Distribution Width 12.6 11.0 - 16.0 % [facility] Platelet Count 199 160 - 400 X10*3/uL [facility] Mean Platelet Volume 9.7 9.4 - 12.3 fL [facility] Neutrophils Percent Auto 48.2 45 - 73 % [facility] Imm Gran Pct Auto 0.1 0.0 - 0.4 % [facility] Lymphocytes Percent Auto 31.2 20 - 40 % [facility] Monocytes Percent Auto 8.1 2 - 11 % [facility] Eosinophils Percent Auto 11.3(H) 0 - 4 % [facility] Basophils Percent Auto 1.1 0 - 2 % [facility] NRBC Pct Auto 0.0 0.0 - 0.2 /100WBC [facility] Neutrophils Absolute Auto 3.4 2.0 - 8.3 x10*3/uL [facility] Imm Gran Abs Auto 0.01 0.00 - 0.03 X10*3/uL [facility] Lymphocytes Absolute Auto 2.2 1.2 - 4.9 X10*3/uL [facility] Monocytes Absolute Auto 0.6 0.1 - 1.2 X10*3/uL [facility] Eosinophils Absolute Auto 0.8(H) 0.0 - 0.4 X10*3/uL [facility] Basophils Absolute Auto 0.1 0.0 - 0.2 X10*3/uL [facility] NRBC Abs Auto 0.000 0.0 - 0.012 X10*3/uL [facility] 05/10/2025 7:54 AM EDT 05/10/2025 10:59 AM EDT us Generic External Data Provider LAB BLOOD ORDERAB LES Final Result [facility] [address] [place] [phone] * (ABNORMAL) Hemoglobin A1c (05/10/2025 7:54 AM EDT) Hemoglobin A1c 7.0(H) <6.0 % [facility] Comment:Hemoglobin A1C Refer ence Range Adults: 4.8 - 6.0 % Non diabetic: < 6.0 % Goal: < 7.0 %Additional Action Suggested: > 8.0 %Note: Hemoglobin A1c results are invalid for patients with abnormal amounts of HbF. Blood transfusions may impact the HbA1c concentration in the patient sample. Estimated Average Glucose 154 mg/dL [facility] Comment:eAG = Estimated ave rage glucose which is %A1C expressed asaverage glucose, using the formula of the A1R-SezzmlmHmihxvn Glucose study (ADAG), Diabetes Care, Vol.31,#8,2007 05/10/2025 7:54 AM EDT 05/10/2025 10:59 AM EDT us Generic External Data Provider LAB BLOOD ORDERAB LES Final Result Performing Organization Address [facility]/ZIP Co de Phone Number [facility] [address] [place] [phone] * (ABNORMAL) Lipid Panel, Standard (05/10/2025 7:54 AM EDT) Only the most recent of2 resultswithin the time period is included. Triglycerides 70 <150 mg/dL [facility] Comment:Desirable Triglyceri de: less than 150 mg/dLBorderline High Triglyceride 150-199 mg/dLHigh Triglyceride: 200-499 mg/dLVery High Triglyceride: greater than or equal to 5OO mg/dL Cholesterol 177 <200 mg/dL [facility] Comment:Desirable Cholestero l: less than 200 mg/dLBorderline High Cholesterol: 200-239 mg/dLHigh Cholesterol: greater than 239 mg/dL LDL Cholesterol Calculated 103(H) <100 mg/dL [facility] Comment:Desirable LDL: less than 100 mg/dLNear Optimal/Above Optimal LDL: 110- 129 mg/dLBorderline High LDL: 130-159 mg/dLHigh LDL: 160-189 mg/dLVery High LDL: greater than or equal to 190 mg/dL HDL Cholesterol 60 >40 mg/dL [facility] Comment:Desirable HDL: great er than 40 mg/dL Note: This HDL assay may give artificially low results in patients with liver disease. 05/10/2025 7:54 AM EDT 05/10/2025 10:59 AM EDT us Generic External Data Provider LAB BLOOD ORDERAB LES Final Result Performing Organization Address [facility]/ZIP Co de Phone Number [facility] [address] [place] [phone] * (ABNORMAL) Comprehensive Metabolic Panel (05/10/2025 7:54 AM EDT) Sodium 137 135 - 145 mmol/L [facility] Potassium 4.1 3.3 - 5.1 mmol/L [facility] Chloride 108 96 - 108 mmol/L [facility] Carbon Dioxide 22 22 - 29 mmol/L [facility] Anion Gap 11(L) 12 - 20 [facility] Urea Nitrogen (BUN) 25(H) 9 - 16 mg/dL [facility] Creatinine, Serum 1.12 0.5 - 1.4 mg/dL [facility] Estimated Glomerular Filt Rate 48 [facility] Comment:Chronic Kidney Disea se: Estimated GFR < 60 mL/min/[id number] Kidney Disease: Estimated GFR < 15 mL/min/1.73m2 Glucose 124(H) 60 - 115 mg/dL [facility] Calcium 9.7 8.4 - 10.2 mg/dL [facility] Bilirubin, Total 0.5 0.0 - 1.0 mg/dL [facility] Aspartate Amino Transferase 24 5 - 31 U/L [facility] Alanine Aminotransferase 14 0 - 31 U/L [facility] Total Protein 6.6 6.5 - 8.0 g/dL [facility] Albumin Level 4.2 3.5 - 5.0 g/dL [facility] Alkaline Phosphatase 63 39 - 117 U/L [facility] 05/10/2025 7:54 AM EDT 05/10/2025 10:59 AM EDT us Generic External Data Provider LAB BLOOD ORDERAB LES Final Result [facility] [address] [place] [phone] * XR Hand 3+ Views Right (04/30/2025 8:55 AM EDT) Anatomical Region Laterality Modality Upper Extremities, Hand Right Radiogra phic Imaging 04/30/2025 8:55 AM EDT Narrative 04/30/2025 9:20 AM EDT [facility] [place] [address] XRay Report Signed Patient: Angely Pineda MR#: [id number] : 1950 Acct:[id number] Age/Sex: 74 / F ADM Date: 04/30/25 Loc: [facility] Attending Dr: Rolanda Thakur MD Ordering Physician: Rolanda Thakur MD Date of Service: 04/30/25 Procedure(s): XR hand RT min 3V Accession Number(s): [id number] cc: Rolanda Thakur MD Reason for Exam: [...] in OV> 04/30/25917 DD/ 4 TD/TT: 04/30/25899 Contact Officer: Procedure Note Donotuseinterpreter, Image - 04/30/2025 [facility] [address] [place] [address] [place] [address] XRay Report Signed Patient: Angely PinedaMR#: [id number] : 1950cct:[id number] Age/Sex: 74 / FADM Date: 04/30/25 Loc: JAIME.HMGCX Attending Dr: Rolanda Thakur MD Ordering Physician: Rolanda Thakur MD Date of Service: 04/30/25 Procedure(s): XR hand RT min 3V Accession Number(s): [id number] cc: Rolanda Thakur MD Reason for Exam: [...] MD in OV> 04/30/25917 DD/ 4 TD/TT: 04/30/25 09 Contact Officer: Rolanda Thakur MD IMG XR PROCEDURES Final Res ult * XR Hand 3+ Views Left (04/30/2025 8:55 AM EDT) Anatomical Region Laterality Modality Upper Extremities, Hand Left Radiogra phic Imaging 04/30/2025 8:55 AM EDT Narrative 04/30/2025 9:19 AM EDT [facility] [place] [address] XRay Report Signed Patient: Angely Pineda MR#: [id number] : 1950 Acct:[id number] Age/Sex: 74 / F ADM Date: 04/30/25 Loc: HO.HMGCX Attending Dr: Rolanda Thakur MD Ordering Physician: Rolanda Thakur MD Date of Service: 04/30/25 Procedure(s): XR hand LT min 3V Accession Number(s): [id number] cc: Rolanda Thakur MD Reason for Exam: [...] in OV> 04/30/25915 DD/ 4 TD/TT: 04/30/25899 Contact Officer: Procedure Note Donotuseinterpreter, Image - 04/30/2025 [facility] [address] [place] [address] [place] [address] XRay Report Signed Patient: Erma Pineda#: [id number] : 1950cct:[id number] Age/Sex: 74 / FADM Date: 04/30/25 Loc: HO.HMGCX Attending Dr: Rolanda Thakur MD Ordering Physician: Rolanda Thakur MD Date of Service: 04/30/25 Procedure(s): XR hand LT min 3V Accession Number(s): [id number] cc: Rolanda Thakur MD Reason for Exam: [...] MD in OV> 04/30/25915 DD/ 4 TD/TT: 04/30/25 09 Contact Officer: us Rolanda Thakur MD IMG XR PROCEDURES Final Res ult * (ABNORMAL) Urinalysis, Complete, with Reflex to Culture (04/30/2025 8:37 AM EDT) Only the most recent of2 resultswithin the time period is included. Color Urine Dark Yellow [facility] Appearance Urine Clear [facility] PH 6.5 5.0 - 9.0 [facility] Glucose Urine UA Negative Negative mg/dL [facility] Urine Blood Negative Negative [facility] Specific [place] - Urine 1.010 1.005 - 1.025 [facility] Urine Protein Negative Neg-Trace mg/dL [facility] Urine Ketones Negative Negative mg/dL [facility] Nitrite Urine Negative Negative [facility] Leukocyte Esterase Urine Small (1+)(A) Negative [facility] RBC Urine 0-2 0 - 2 /HPF [facility] Urine WBC 0-5 0 - 5 /HPF [facility] Urine Squamous Epithelial Cell 0-2 0 - 2 /HPF [facility] Urine Bacteria None Seen None Seen [facility] Hyaline Casts, Urine 0-2 0 - 2 /LPF [facility] Urine 04/30/2025 8:37 AM EDT 04/30/2025 1:12 PM EDT Narrative [facility] - 04/30/2025 2:16 PM EDT Urine, Clean Catch us Rolanda Thakur MD LAB URINE ORDERABLES Final Result [facility] [address] [place] [phone] * (ABNORMAL) Basic Metabolic Panel (04/12/2025 10:26 AM EDT) Pathologist [facility] Sodium 136 135 - 145 mmol/L [facility] Potassium 5.0 3.3 - 5.1 mmol/L [facility] Chloride 106 96 - 108 mmol/L [facility] Carbon Dioxide 23 22 - 29 mmol/L [facility] Anion Gap 12 12 - 20 [facility] Urea Nitrogen (BUN) 22(H) 9 - 16 mg/dL [facility] Creatinine, Serum 0.95 0.5 - 1.4 mg/dL [facility] Estimated Glomerular Filt Rate 58 [facility] Comment:Chronic Kidney Disea se: Estimated GFR < 60 mL/min/1.63d7Qxdkej Kidney Disease: Estimated GFR < 15 mL/min/1.73m2 Glucose 147(H) 60 - 115 mg/dL [facility] Calcium 9.7 8.4 - 10.2 mg/dL [facility] Blood Venous blood specimen / Unknown 04/12/2025 10:26 AM EDT 04/12/2025 11:02 AM EDT [facility] BLOOD ORDERABLES Final Re sult [facility] [address] [place] [address] [phone] * T-SPOT??.TB (03/20/2025 9:09 AM EDT) Only the most recent of2 resultswithin the time period is included. Pathologist [facility] T-Spot. TB Negative Negative [facility] Comment: A negative test result does not [...] For Neg Control 1 [facility] Panel B Spot Count Corrected For Neg Control 1 [facility] Negative Control Passed [facility] Positive Control Passed [facility] Comment: For additional information, please refer to http://education.Dynamic Yield/faq/GTZ334 (This link is being provided for informational/ educational purposes only.) 03/20/2025 9:09 AM EDT 03/20/2025 9:11 AM EDT us Rolanda Thakur MD LAB BLOOD ORDERABLES Final Result [address], [facility] [place] [address] [facility]/[place] [address] [facility] [place] [address] * Slide Review (03/19/2025 3:13 PM EDT) Slide Review VERIFIED [facility] 03/19/2025 3:13 PM EDT 03/19/2025 5:56 PM EDT us Rolanda Thakur MD LAB BLOOD ORDERABLES Final Result [facility] [address] [place] [address] [phone] * Hm Mammography (12/17/2024 8:40 AM EDT) Anatomical Region Laterality Modality Other us Historical Provider [facility] Final Result * Cologuard?? colon cancer screening (08/09/2024 8:30 AM EST) Cologuard Result Negative Negative 08/18/20 11:52 PM EST [facility] (CLIA #:[id number]) Comment: NEGATIVE TEST RESULT. A negative Cologuard [...] Celaya et al, N Engl J Med 2014;370(14):6551-5260) The normal value (reference range) for this assay is negative. COLOGUARD RE-SCREENING RECOMMENDATION: Periodic colorectal cancer screening is an important part of preventive healthcare for asymptomatic individuals at average risk for colorectal cancer. Following a negative Cologuard result, the [place] Cancer Society and U.S. Multi-Society Task Force screening guidelines recommend a Cologuard re-screening interval of 3 years. References: [place] [employer] Guideline for Colorectal Cancer Screening: https://www.cancer.org/cancer/nimyz-zahpzb-vadwdf/uyfkrvdua-hlwbqvmwx-ltljwze/ac s-rec ommendations.html.; Santiago DK, Ileana PERERA, Emery LalaK, Colorectal Cancer Screening: Recommendations for Physicians and Patients from the U.S. Multi-Society Task Force on Colorectal Cancer Screening , Am J Gastroenterology 2017; 112:3040-4996. TEST DESCRIPTION: Composite algorithmic analysis of stool [...] (Dioni Kelly al, N Engl J Med 2014;370(14):2433-5289.) Cologuard may produce a false negative or false positive result (no colorectal cancer or precancerous polyp present at colonoscopy follow up). A negative Cologuard test result does not guarantee the absence of CRC or advanced adenoma (pre-cancer). The current Cologuard screening interval is every 3 years. ([place] [employer] Society and U.S. Multi-Society Task Force). Cologuard performance data in a 10,000 patient pivotal study using colonoscopy as the reference method can be accessed at the following location: www.SpotOn/results. Additional description of the Cologuard test process, warnings and precautions can be found at www.Phraxisrd.com. Stool specimen (specimen) 08/09/2024 8:30 AM EST 08/10/2024 2:47 PM EST us Rolanda Thakur MD LAB MOLECULAR DIAGNOSTICS O RDERABLES Final Result [facility] (CLIA #:[id number]) [address] [place] [address], * Hepatitis C Antibody with Reflex to HCV, RNA, Quantitative, Real-Time PCR (07/17/2024 3:20 PM EST) Hepatitis C Antibody Nonreactive Nonreactive [facility] Comment:Antibodies to HCV no t detected; does not exclude early acuteHCV infection. Blood Venous blood specimen / Unknown 07/17/2024 3:20 PM EST 07/17/2024 5:23 PM EST Rolanda Thakur MD LAB BLOOD ORDERABLES Final Result [facility] [address] [place] [address] [phone] from Last 3 Months or Most Recently Relevant to Health Maintenance Insurance [facility] [place] [address] [place] [address] Care Teams Divisional Human Resources Director Relationship Specialty Start Date End Date Rolanda Thakur MD [address] [place] [address] PCP - General Internal Medicine 09/19/22
--- OUTSIDE RECORDS SUMMARY | 2025-05-17 09:16 | XMS_ITS | Encounter Summary ---
Author Organization [employer] Address [address] [address] Care Team Providers Care Pad Machine Operator Name Role Phone Rolanda Thakur MD Primary Care Provider +1- [phone] Reason for Visit * Reason Onset Date Comments Durable Medical Equipment 04/29/2024 Encounter Details Date Type Department Care Team (Late st Contact Info) Description 04/29/2024 Telephone [facility] [address] [place] [address] Rolanda Thakur MD [address] [place], [place] [phone] Durable Medical Equipment Social History Tobacco Use [...] - 04/29/2024 3:34 PM EDT Tc from [facility] stating pt is requesting blood pressure monitor but they don't have a script. If any questions you can contact [facility] at [phone]. documented in this encounter Plan of Treatment Not on file documented as of this encounter Visit Diagnoses Not on filedocumented in this encounter Care Teams Pad Machine Operator Relationship Specialty Start Date End Date Rolanda Thakur MD [address] [place] [phone] PCP - General Internal Medicine 09/19/22 documented as of this encounter
--- OUTSIDE RECORDS SUMMARY | 2025-05-17 09:16 | XMS_ITS | Encounter Summary ---
Author Organization [employer] Address [address] [address] Care Team Providers Care Retail Associate Manager Bilingual Name Role Phone Rolanda Thakur MD Primary Care Provider +1- [phone] Reason for Visit * Reason Onset Date Comments Med Refill 12/26/2024 Encounter Details Date Type Department Care Team (Late st Contact Info) Description 12/26/2024 Refill [facility] [address] [place] [address] Rolanda Thakur MD [address] [place], [place] [phone] Neck pain on left side Social History [...] documented as of this encounter Care Teams Retail Associate Manager Bilingual Relationship Specialty Start Date End Date Rolanda Thakur MD [address] [place] [phone] PCP - General Internal Medicine 09/19/22 documented as of this encounter
--- OUTSIDE RECORDS SUMMARY | 2025-05-17 09:16 | XMS_ITS | Encounter Summary ---
Author Organization [employer] Address 75 [facility] [address] [place] [address] Care Team Providers Care Delivery Coordinator Name Role Phone Rolanda Thakur MD Primary Care Provider +1 [phone] Encounter Details Date Type Department Care Team ([facility] st Contact Info) Description 12/18/2024 Orders Only [facility] [address] [place] [address] ProviderChema MD Social History Tobacco Use Types [...] your housing situation today? I have johnny gentiel 07/06/[address] you li [...] documented as of this encounter Care Teams Delivery Coordinator Relationship Specialty Start Date End Date Rolanda Thakur MD [address] [place] [phone] PCP - General Internal Medicine 09/19/22 documented as of this encounter
--- OUTSIDE RECORDS SUMMARY | 2025-05-17 09:16 | XMS_ITS | Encounter Summary ---
Author Organization [employer] Address [address] [place] [address] Care Team Providers Care Jacket Changer Name Role Phone Rolanda Thakur MD Primary Care Provider +1- [phone] Reason for Visit * Reason Onset Date Comments Call Back Request 11/17/2023 Encounter Details Date Type Department Care Team ([facility] st Contact Info) Description 11/17/2023 Telephone [facility] MEDICINE [address] [place] [address] Rolanda Thakur MD [address] [place], [place] [phone] Call Back Request Social History Tobacco Use [...] Message sent to PCP for review through [employer] portal * Telephone Encounter - Jenny Neff - 11/17/2023 8:06 AM EDT Tc from pt requesting a call back pt stated needs more information and clarifications 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 Please contact pt. documented in this encounter Plan of Treatment Not on file documented as of this encounter Visit Diagnoses Not on filedocumented in this encounter Care Teams Jacket Changer Relationship Specialty Start Date End Date Rolanda Thakur MD [address] [place] [phone] PCP - General Internal Medicine 09/19/22 documented as of this encounter
--- OUTSIDE RECORDS SUMMARY | 2025-05-17 09:16 | XMS_ITS | Encounter Summary ---
Author Organization [employer] Address [address] [place] [address] Care Team Providers Care Event Marketing Specialist Name Role Phone Rolanda Thakur MD Primary Care Provider [phone]- [phone] Reason for Referral * Consultation (Routine) - Canceled Specialty Diagnoses / Procedures Referred By Conthernandez t Referred To Contact Endocrinology Diagnoses Type 2 diabetes mellitus without complication, without long-term current use of insulin (CMS/HCC) Rolanda Thakur MD [address] [place] [address] Phone: tel: fax: Referral ID Status Reason Start Date Expiration Date Visits Requested Visits Authorized [id number] Canceled Specialty Services Required 10/08/2024 10/08/2025 1 1 Encounter Details Date Type Department Care Team (Late st Contact Info) Description 10/08/2024 Orders Only [facility] [address] [place] [address] Rolanda Thakur MD [address] [place], [place] [phone] Type 2 diabetes mellitus without complication, without [...] long-term current use of insulin ([facility]) Expected: 10/08/2024 (Approximate), Expires: 10/08/2025 documented as of this encounter Procedures Procedure Name Priority Date/Time Associated Diagnosis Comments HEMOGLOBIN A1C Routine 02/05/2025 12:22 PM EDT Type 2 diabetes mellitus without complication, without long-term current use of insulin (CMS/[facility]) documented in this encounter Results * (ABNORMAL) Hemoglobin A1c (02/05/2025 12:22 PM EDT) Hemoglobin A1c 7.4(H) <6.0 % [facility] Comment:Hemoglobin A1C Refer ence Range Adults: 4.8 - 6.0 % Non diabetic: < 6.0 % Goal: < 7.0 %Additional Action Suggested: > 8.0 %Note: Hemoglobin A1c results are invalid for patients with abnormal amounts of HbF. Blood transfusions may impact the HbA1c concentration in the patient sample. Estimated Average Glucose 166 mg/dL [facility] Comment:eAG = Estimated ave rage glucose which is %A1C expressed asaverage glucose, using the formula of the S5J-XqoldjtHfhdqrg Glucose study (ADAG), Diabetes Care, Vol.31,#8,Mar. 2007 Blood Venous blood specimen / Unknown 02/05/2025 12:22 PM EDT 02/05/2025 1:20 PM EDT Rolanda Thakur MD LAB BLOOD ORDERABLES Final Result [facility] [address] [place] [address] [phone] documented in this encounter Visit Diagnoses Diagnosis Type 2 diabetes mellitus without complication, without long-term current use of insulin ([facility])- Primary documented in this encounter Additional Health Concerns Assessment Noted Time PHQ-9 Depression Total Score: 2 05/13/20 24 9:24 AM EDT documented as of this encounter Care Teams Event Marketing Specialist Relationship Specialty Start Date End Date Rolanda Thakur MD [address] [place] [address] PCP - General Internal Medicine 09/19/22 documented as of this encounter
--- OUTSIDE RECORDS SUMMARY | 2025-05-17 09:16 | XMS_ITS | Encounter Summary ---
Author Organization [employer] Address [address] [place] [address] 7 [place] [address] Care Team Providers Care Scrap Baller Name Role Phone Rolanda Thakur MD Primary Care Provider [phone] [phone] Encounter Details Date Type Department Care Team ([facility] st Contact Info) Description 09/23/2024 Orders Only [facility]S [address] [place] [address] Rolanda Thakur MD [address] [place] [address] Acquired hypothyroidism (Primary Dx); Benign essential hypertension [...] PM EST) Aldosterone 2 see note ng/dL [facility] Comment:Unable to flag abnor mal result(s), please refer to reference range(s) below:Adult Reference Ranges for Aldosterone, LC/MS/MS: Upright 8:00 - 10:00 am < or = 28 ng/dL Upright 4:00 - 6:00 pm < or = 21 ng/dL Supine 8:00 - 10:00 am 3 - 16 ng/dLTHIS TEST WAS PERFORMED AT:[employer] [id number] [place] [address]SXLOGSJTHEO PEDERSEN MD,PHD Plasma Renin Activity 0.52 0.25 - 5.82 ng/mL/h [facility] Aldosterone/Renin Ratio 3.8 0.9 - 28.9 Ratio [facility] Comment:This test was develo ped and its analytical performancecharacteristics have been determined by [employer] [place], [place]. It hasnot been cleared or approved by the U.S. Food and DrugAdministration. This assay has been validated pursuantto the CLIA regulations and is used for clinicalpurposes.THIS TEST WAS PERFORMED AT:[employer] [id number] [place] [address]OMPUPPNTHEO PEDERSEN MD,PHD Blood Venous blood specimen / Unknown 09/24/2024 1:40 PM EST 09/24/2024 4:21 PM EST Rolanda Thakur MD LAB BLOOD ORDERABLES Final Result [facility] [address] [place] [phone] * TSH W/Reflex to FT4 (09/24/2024 1:40 PM EST) TSH reflex Free T4 0.38 0.32 - 4.0 uIU/mL [facility] Blood Venous blood specimen / Unknown 09/24/2024 1:40 PM EST 09/24/2024 4:21 PM EST us Rolanda Thakur MD LAB BLOOD ORDERABLES Final Result Performing Organization Address [facility]/ZIP Co de Phone Number [facility] [address] [place] [phone] * (ABNORMAL) Basic Metabolic Panel, Fasting (09/24/2024 1:40 PM EST) Sodium 139 135 - 145 mmol/L [facility] Potassium 3.8 3.3 - 5.1 mmol/L [facility] Chloride 106 96 - 108 mmol/L [facility] Carbon Dioxide 22 22 - 29 mmol/L [facility] Anion Gap 15 12 - 20 [facility] Urea Nitrogen (BUN) 13 9 - 16 mg/dL [facility] Creatinine, Serum 0.94 0.5 - 1.4 mg/dL [facility] Estimated Glomerular Filt Rate 58 [facility] Comment:Chronic Kidney Disea se: Estimated GFR < 60 mL/min/1.82r4Azguoz Kidney Disease: Estimated GFR < 15 mL/min/1.73m2 Glucose Fasting 169(H) 60 - 99 mg/dL [facility] Comment:A fasting glucose of 126 mg/dl or greater on more than oneoccasion is considered diagnostic of diabetes. Calcium 9.9 8.4 - 10.2 mg/dL [facility] Blood Venous blood specimen / Unknown 09/24/2024 1:40 PM EST 09/24/2024 4:21 PM EST us Rolanda Thakur MD LAB BLOOD ORDERABLES Final Result Performing Organization Address City/[facility]/ZIP Co de Phone Number [facility] [address] [place] [phone] * (ABNORMAL) CBC auto differential (09/24/2024 1:40 PM EST) White Blood Count 7.0 4.8 - 10.8 X10*3/uL [facility] Red Blood Count 4.23 4.20 - 5.50 X10*6/uL [facility] Hemoglobin 12.6 12.0 - 16.0 g/dl [facility] Hematocrit 37.0 37.0 - 47.0 % [facility] Mean Corpuscular Volume 87.5 80.0 - 98.0 fL [facility] Mean Corpuscular Hemoglobin 29.8 27.0 - 33.0 pg [facility] Mean Corpuscular HGB Conc 34.1 31.0 - 35.0 g/dl [facility] Red Cell Distribution Width 12.8 11.0 - 16.0 % [facility] Platelet Count 251 160 - 400 X10*3/uL [facility] Mean Platelet Volume 9.5 9.4 - 12.3 fL [facility] Neutrophils Percent Auto 59.8 45 - 73 % [facility] Imm Gran Pct Auto 0.3 0.0 - 0.4 % [facility] Lymphocytes Percent Auto 26.1 20 - 40 % [facility] Monocytes Percent Auto 8.6 2 - 11 % [facility] Eosinophils Percent Auto 4.3(H) 0 - 4 % [facility] Basophils Percent Auto 0.9 0 - 2 % [facility] NRBC Pct Auto 0.0 0.0 - 0.2 /100WBC [facility] Neutrophils Absolute Auto 4.2 2.0 - 8.3 x10*3/uL [facility] Imm Gran Abs Auto 0.02 0.00 - 0.03 X10*3/uL [facility] Lymphocytes Absolute Auto 1.8 1.2 - 4.9 X10*3/uL [facility] Monocytes Absolute Auto 0.6 0.1 - 1.2 X10*3/uL [facility] Eosinophils Absolute Auto 0.3 0.0 - 0.4 X10*3/uL [facility] Basophils Absolute Auto 0.1 0.0 - 0.2 X10*3/uL [facility] NRBC Abs Auto 0.000 0.0 - 0.012 X10*3/uL [facility] Blood Venous blood specimen / Unknown 09/24/2024 1:40 PM EST 09/24/2024 4:21 PM EST Rolanda Thakur MD LAB BLOOD ORDERABLES Final Result [facility] [address] [place] [address] [phone] documented in this encounter Visit Diagnoses Diagnosis Acquired hypothyroidism- Primary Unspecified hypothyroidism Benign essential hypertension Essential hypertension, benign documented in this encounter Additional Health Concerns Assessment Noted Time PHQ-9 Depression Total Score: 2 05/13/20 24 9:24 AM EDT documented as of this encounter Care Teams Scrap Baller Relationship Specialty Start Date End Date Rolanda Thakur MD [address] [place] [phone] PCP - General Internal Medicine 09/19/22 documented as of this encounter
--- OUTSIDE RECORDS SUMMARY | 2025-05-17 09:16 | XMS_ITS | Encounter Summary ---
Author Organization [employer] Address [address] [place] [address] Care Team Providers Care Banking Officer Name Role Phone Rolanda Thakur MD Primary Care Provider +1- [phone] Encounter Details Date Type Department Care Team ([facility] st Contact Info) Description 01/22/[address] [facility] CHC MED & PEDS [address] [place], [place] [phone] Rolanda Thakur MD 505 [place] [address] Benign essential hypertension Social History Tobacco Use [...] AM EDT Narrative 02/19/2024 12:38 PM EDT [address] [address] XRay Report Signed Patient: Angely Pineda MR#: [id number] : 1950 Acct:[id number] Age/Sex: 73 / F ADM Date: 02/19/24 Loc: JANAE Attending Dr: Migdalia PALMER Ordering Physician: Migdalia Loza Date of Service: 02/19/24 Procedure(s): XR toe RT min 2V Accession Number(s): [id number] cc: Migdalia Loza EXAMINATION: BILATERAL TOES CLINICAL [...] in OV> 02/19/24 1234 DD/ 1122 TD/TT: Tomb Maker Helper: SS Procedure Note Donotuseinterpreter, Image - 02/19/[address] [address] XRay Report Signed Patient: Angely PinedaMR#: [id number] : 1950cct:[id number] Age/Sex: 73 / FADM Date: 02/19/24 Loc: JANAE Attending Dr: Migdalia Loza DRAFTER CASTINGS Ordering Physician: Migdalia Loza Date of Service: 02/19/24 Procedure(s): XR toe RT min 2V Accession Number(s): [id number] cc: Migdalia Loza DRAFTER CASTINGS EXAMINATION: BILATERAL TOES CLINICAL INFORMATION: A heavy [...] in OV> 02/19/24 1234 DD/ 1122 TD/TT: Tomb Maker Helper: SS Migdalia Loza DRAFTER CASTINGS IMG XR PROCEDURES Edited Resul t - Final documented in this encounter Visit Diagnoses Diagnosis Benign essential hypertension Essential hypertension, benign documented in this encounter Care Teams Banking Officer Relationship Specialty Start Date End Date Rolanda Thakur MD [address] [place] [address] PCP - General Internal Medicine 09/19/22 documented as of this encounter
[2025-05-17 09:28] VITALS: BP 144/70; PULSE 62; TEMP 36.6; O2SAT 97; BMI 25.4
== END 2025-05-17 09:50 | disposition home or self-care (01) ==
PROVIDERS: PCP Internal Medicine; Visit Provider Physician Assistant
DX: N39.0 Urinary tract infection, site not specified (principal)

== ENCOUNTER → 2025-05-17 09:11 | Outpatient (BNVA) | payer MEDICARE, SELFPAY | PROVIDERS: PCP Internal Medicine; Visit Provider Physician Assistant | DX: N39.0 Urinary tract infection, site not specified (principal) | CPT/HCPCS: 99212 ==

== ENCOUNTER 2025-05-27 08:03 | Outpatient (REF) | payer MEDICARE, SELFPAY | END 2025-05-27 08:04 | disposition home or self-care (01) | LOC: HO.HMGCLDS 08:03 | PROVIDERS: PCP Internal Medicine; Visit Provider Nurse Practitioner | DX: Z13.89 Encounter for screening for other disorder (principal) ==

== ENCOUNTER 2025-05-28 07:40 | Outpatient (REF) | payer MEDICARE, SELFPAY ==
[2025-05-28 10:59] LABS: Appearance Urine Clear; Glucose Urine UA Negative (Negative); PH 6.0 (5.0-9.0); Specific Gravity - Urine 1.010 (1.005-1.025); UMIC TRIGGER UA YES
== END 2025-05-28 07:41 | disposition home or self-care (01) ==
LOC: HO.HMGCLNP 07:40
PROVIDERS: PCP Internal Medicine; Visit Provider Nurse Practitioner
DX: N39.0 Urinary tract infection, site not specified (principal)
CPT/HCPCS: 81001; 87086

== ENCOUNTER 2025-06-12 08:41 | Outpatient (AMB) | payer MEDICARE, SELFPAY ==
--- OUTSIDE RECORDS SUMMARY | 2025-06-08 10:50 | XMS_ITS | Encounter Summary ---
Author Organization [facility] [place] [address] Care Team Providers Care Apple Checker Name Role Phone Rolanda Thakur MD Primary Care Provider +1 [phone] Reason for Referral * Imaging (Routine) - Closed Specialty Diagnoses / Procedures Referred By Freddy meadows Referred To Contact Radiology Diagnoses Overactive bladder Procedures US Retroperitoneal Complete Travis Cordero MD [address] [place] [address] Phone: tel: fax: [facility] Referral ID Status Reason Start Date Expiration Date Visits Re quested Visits Authorized [id number] Closed 06/06/2025 06/06/2026 1 1 Reason for Visit * Imaging (Routine) - Closed Specialty Diagnoses / Procedures Referred By Freddy meadows Referred To Contact Radiology Diagnoses Overactive bladder Procedures US Retroperitoneal Complete Travis Cordero MD [address] [place] [address] Phone: tel: fax: [facility] Referral ID Status Reason Start Date Expiration Date Visits Re quested Visits Authorized [id number] Closed 06/06/2025 06/06/2026 1 1 Encounter Details Date Type Department Care Team (Latest Contact Info) Description 06/08/2025 10:50 AM EDT - 06/08/2025 11:59 PM EDT Hospital Encounter [facility] Ultrasound [address] [place] [address] Overactive bladder Discharge Disposition: Home or Self Care Social [...] not to disclose 2023 8:18 AM EST documented as of this encounter Medications at Time of Discharge aspirin 81 mg chewable tablet Chew 1 tablet (81 mg total) 1 (one) time each day. B complex tablet Take 1 tablet by mouth 1 (one) time each day. busPIRone (BUSPAR) 10 mg tablet Take 1 tablet (10 mg total) by mouth 2 (two) times a day. busPIRone (BUSPAR) 5 mg tablet Take by mouth 2 (two) times a day. calcium carbonate/vitami n D3 (CALCIUM 500 + D ORAL) Take [...] by mouth 1 (one) time each day. empagliflozin (Jardiance) 10 mg tablet Take 1 tablet (10 mg total) by mouth 1 (one) time each day in the morning. 02/24/2025 glipiZIDE (GLUCOTROL) 10 mg tablet Take 1 [...] Description 06/23/2025 7:40 AM EST Office Visit [facility] [address] [facility] 102 [place] [address] Kadi Palacios NP 300 [facility] 154 [place] [address] Pending Results Name Type Priority Associated Diagnoses Date /Time US Retroperitoneal Complete Imaging Routine Overactive bladder 06/08/2025 12:02 PM EDT Scheduled Orders Name Type Priority Associated Diagnoses Orde r Schedule US Retroperitoneal Complete Imaging Routine Overactive bladder Once for 1 Occurrences starting 06/08/2025 until 06/08/2025 documented as of this encounter Visit Diagnoses Diagnosis Overactive bladder Hypertonicity of bladder documented in this encounter Care Teams Apple Checker Relationship Specialty Start Date End Date Rolanda Thakur MD [address] [place] [address] PCP - General 11/03/23 documented as of this encounter
[2025-06-12 08:43] VITALS: BP 200/94; PULSE 67; TEMP 36.7; O2SAT 100; BMI 25.4
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
[2025-06-12 09:08] VITALS: BP 160/80
--- OUTSIDE RECORDS SUMMARY | 2025-06-12 09:14 | XMS_ITS | Continuity of Care Document ---
Author Organization [facility] [address] [place] [address] Phone [phone] Care Team Providers Care Marketing Proposal Specialist Name Role Phone Rolanda Thakur M.D. Care Team Information Re ceiver [phone] Problems Active Problems Provider Date Type 2 [...] SIG Qnty Indications Order ing Provider Date Gqazbtqwo963cve Tablets 1 tab by mouth every day 90tabs Beauzile Thecarlain M.D. Losartan Lazqkxyxm232zo Tablets 1 tab by mouth every day BeauzileRolanda M.DNaman Clonidine HCL0.1mg Tablets Beauzile Thevenin M.DNaman Buspirone HCL5mg Tablets 1 tab by mouth twice a day BepachecoleRolanda M.DNaman Clonazepam0.5mg Tablets Take 1 Tablet By Mouth Every Day as Needed For Panic Attacks Beauzile, Thevenin, M.D. Aspirin Low Lkpt22fo Tablets Rolanda Morrissey M.D. Cyclobenzaprine DZB85hz Tablets Take 1 Tablet By Mouth Every 8 Hours Rolanda Thaukr M.D. Metformin CRC785jx Tablets Take 1 Tablet By Mouth Twice Daily Demi Brothers MD Puehoovxw90xy Tablets 1 tab by mouth twice a [...] Medical Devices Description No Information Available Encounters Type Date Location Provider Dx Diagnosis Office Visit 05/07/2025 9:30a Main Office Aren White M.D. E11.9 Type 2 diabetes mellitus without complications Assessments Date Code Description Provider 05/07/2025 E11.9 Type 2 diabetes mellitus Ale White M.D. Plan of Treatment Future Appointment(s):* 07/29/2025 1:45 pm - Aren White M.D. at Main Office * 10/08/2025 10:00 am - Aren White M.D. at Main Office 05/07/2025 - Aren White M.D.* E11.9 Type 2 diabetes mellitus* New Labs: * Glucose Fingerstick, Ordered: 05/07/25 * Comp. Metabolic [...]
--- OUTSIDE RECORDS SUMMARY | 2025-06-12 09:14 | XMS_ITS | Encounter Summary ---
Author Organization [employer] Address [address] [address] Care Team Providers Care Acid Pump Operator Name Role Phone Rolanda Thakur MD Primary Care Provider [phone]- [phone] Reason for Visit * Reason Onset Date Comments Medication Question 11/27/2024 Encounter Details Date Type Department Care Team ([facility] st Contact Info) Description 11/27/2024 Telephone [facility] MEDICINE [address] [place] [address] Rolanda Thakur MD [address] [place], [place] [phone] Medication Question Social History Tobacco Use Types [...] going through what is going on. Contact [phone] documented in this encounter Plan of Treatment Not on file documented as of this encounter Visit Diagnoses Not on filedocumented in this encounter Additional Health Concerns Assessment Noted Time PHQ-9 Depression Total Score: 2 05/13/20 24 9:24 AM EDT documented as of this encounter Care Teams Acid Pump Operator Relationship Specialty Start Date End Date Rolanda Thakur MD [address] [place] [address] PCP - General Internal Medicine 09/19/22 documented as of this encounter
--- OUTSIDE RECORDS SUMMARY | 2025-06-12 09:14 | XMS_ITS | Encounter Summary ---
Author Organization [employer] Address 75 [facility] 7 [place] [address] Care Team Providers Care Office Sweeper Name Role Phone Rolanda Thakur MD Primary Care Provider [phone]- [phone] Encounter Details Date Type Department Care Team ([facility] Contact Info) Description 12/02/2024 Telephone [facility] CHC MED & PEDS [address] [place], [place] [phone] Rolanda Thakur MD 505 [place] [address] Social History Tobacco Use Types Packs/Day Years [...] documented as of this encounter Care Teams Office Sweeper Relationship Specialty Start Date End Date Rolanda Thakur MD [address] [place] [address] PCP - General Internal Medicine 09/19/22 documented as of this encounter
--- OUTSIDE RECORDS SUMMARY | 2025-06-12 09:15 | XMS_ITS | Encounter Summary ---
Author Organization [employer] Address [address] [place] [address] Care Team Providers Care Leasing Assistant Name Role Phone Rolanda Thakur MD Primary Care Provider [phone]- [phone] Reason for Visit * Reason Onset Date Comments Med Refill 02/17/2025 Encounter Details Date Type Department Care Team ([facility] st Contact Info) Description 02/17/[address] [facility] CHC MED & PEDS 505 [place] [address] Rolanda Thakur MD 505 [place] [address] Type 2 diabetes mellitus without complication, without [...] complication, without long-term current use of insulin (HCC) Panic attack Panic disorder without agoraphobia Anxiety Anxiety state, unspecified documented in this encounter Additional Health Concerns Assessment Noted Time PHQ-9 Depression Total Score: 2 05/13/20 24 9:24 AM EDT documented as of this encounter Care Teams Leasing Assistant Relationship Specialty Start Date End Date Rolanda Thakur MD [address] [place] [address] PCP - General Internal Medicine 09/19/22 documented as of this encounter
--- OUTSIDE RECORDS SUMMARY | 2025-06-12 09:15 | XMS_ITS | Encounter Summary ---
Author Organization [employer] Address [address] [place] [address] Care Team Providers Care Drapery Counselor Name Role Phone Rolanda Thakur MD Primary Care Provider +1- [phone] Reason for Referral * Consultation (Routine) - Closed Specialty Diagnoses / Procedures Referred By Freddy t Referred To Contact Chiropractic Medicine Diagnoses Chronic left-sided low back pain with left-sided sciatica Rolanda Thakur MD [address] [place] [address] Phone: tel: fax: [facility] fax: Referral ID Status Reason Start Date Expiration Date V isits Requested Visits Authorized [id number] Closed Specialty Services Required 08/08/2024 08/08/2025 1 1 * Consultation (Routine) - Closed Specialty Diagnoses / Procedures Referred By Freddy t Referred To Contact Physical Therapy Diagnoses Chronic left-sided low back pain with left-sided sciatica Rolanda Thakur MD [address] [place] [address] Phone: tel: fax: [facility] Physical Therapy [address] [place] [address] Phone: tel: fax: Referral ID Status Reason Start Date Expiration Date V isits Requested Visits Authorized [id number] Closed Specialty Services Required 08/05/2024 08/05/2025 1 1 * Consultation (Routine) - Closed Specialty Diagnoses / Procedures Referred By Freddy meadows Referred To Contact Chiropractic Medicine Diagnoses Chronic left-sided low back pain with left-sided sciatica Rolanda Thakur MD [address] [place] [address] Phone: tel: fax: Referral ID Status Reason Start Date Expiration Date V isits Requested Visits Authorized [id number] Closed Specialty Services Required 08/02/2024 08/02/2025 1 1 Encounter Details Date Type Department Care Team ([facility] st Contact Info) Description 08/02/2024 Orders Only [facility] CHC MED & PEDS [address] [place] [address] Rolanda Thakur MD [address] [place] [address] Chronic left-sided low back pain with left-sided [...] AM EST Narrative 09/02/2024 11:24 AM EST [facility] [address] [facility] [place] [address] XRay Report Signed Patient: Angely Pineda MR#: [id number] : 1950 Acct:[id number] Age/Sex: 74 / F ADM Date: 08/12/24 Loc: HO.HMGCX Attending Dr: Wyatt Golden MD Ordering Physician: Wyatt Golden MD Date of Service: 08/12/24 Procedure(s): XR cervical spine 5V Accession Number(s): [id number] cc: Rolanda Thakur MD; Wyatt Golden MD [...] 09/02/24 1121 DD/ 0950 TD/TT: 08/12/24 1000 Assistant Office Manager: Procedure Note Donotuseinterpreter, Image - 09/02/2024 [facility] [place] Primary [facility] [place] [address] XRay Report Signed Patient: Erma Pineda#: [id number] : 1950cct:[id number] Age/Sex: 74 / FADM Date: 08/12/24 Loc: HO.HMGCX Attending Dr: Wyatt Golden MD Ordering Physician: Wyatt Golden MD Date of Service: 08/12/24 Procedure(s): XR cervical spine 5V Accession Number(s): [id number] cc: Rolanda Thakur MD; Wyatt Golden MD [...] MD 09/02/2024 11:21 AM [facility] Dictated By: Yuridia Becerra MD Signed By: <Electronically signed by Yuridia Becerra MD in OV> 09/02/24 1121 DD/ 0950 TD/TT: 08/12/24 1000 Assistant Office Manager: Wyatt Mcdonald MD IMG XR PROCEDURES Iftikhar mecca Result - Final documented in this encounter Visit Diagnoses Diagnosis Chronic left-sided low back pain with left-sided sciatica- Primary documented in this encounter Additional Health Concerns Assessment Noted Time PHQ-9 Depression Total Score: 2 05/13/20 24 9:24 AM EDT documented as of this encounter Care Teams Drapery Counselor Relationship Specialty Start Date End Date Rolanda Thakur MD [address] [place] [address] PCP - General Internal Medicine 09/19/22 documented as of this encounter
--- OUTSIDE RECORDS SUMMARY | 2025-06-12 09:15 | XMS_ITS | Encounter Summary ---
Author Organization [employer] Address [address] [place] [address] Care Team Providers Care Comic Artist Name Role Phone Rolanda Thakur MD Primary Care Provider +[phone] Reason for Visit * Reason Comments Med Refill Encounter Details Date Type Department Care Team ([facility] st Contact Info) Description 01/05/2023 Refill [facility] CHC MED & PEDS [address] [place] [address] Karoline Castañeda MD 505 [place] [address] Social History Tobacco Use Types Packs/Day Years [...] on filedocumented in this encounter Care Teams Comic Artist Relationship Specialty Start Date End Date Rolanda Thakur MD [address] [place] [address] PCP - General Internal Medicine 09/19/22 documented as of this encounter
--- OUTSIDE RECORDS SUMMARY | 2025-06-12 09:15 | XMS_ITS | Encounter Summary ---
Author Organization [employer] Address [address] [address] Care Team Providers Care Quality Assurance Representative Name Role Phone Rolanda Thakur MD Primary Care Provider +1- [phone] Reason for Visit * Reason Onset Date Comments Call Back Request 11/27/2024 Encounter Details Date Type Department Care Team ([facility] st Contact Info) Description 11/27/2024 Telephone [facility] MEDICINE [address] [place] [address] Rolanda Thakur MD 505 [place], [place] [phone] Call Back Request Social History Tobacco Use [...] as of this encounter Care Teams Quality Assurance Representative Relationship Specialty Start Date End Date Rolanda Thakur MD [address] [place] [address] PCP - General Internal Medicine 09/19/22 documented as of this encounter
--- OUTSIDE RECORDS SUMMARY | 2025-06-12 09:15 | XMS_ITS | Encounter Summary ---
Author Organization [employer] Address [address] [place] [address] 7 [place] [address] Care Team Providers Care Director Presales Name Role Phone Rolanda Thakur MD Primary Care Provider +1- [phone] Encounter Details Date Type Department Care Team ([facility] st Contact Info) Description 03/06/2025 Orders Only [facility] CHC MED & PEDS [address] [place], [place] [phone] Rolanda Thakur MD 505 [place] [address] Type 2 diabetes mellitus without complication, without long-term current use of insulin ([facility]) (Primary Dx) Social History Tobacco Use Types [...] complication, without long-term current use of insulin (HCC)- Primary documented in this encounter Additional Health Concerns Assessment Noted Time PHQ-9 Depression Total Score: 2 05/13/20 24 9:24 AM EDT documented as of this encounter Care Teams Director Presales Relationship Specialty Start Date End Date Rolanda Thakur MD [address] [place] [address] PCP - General Internal Medicine 09/19/22 documented as of this encounter
--- OUTSIDE RECORDS SUMMARY | 2025-06-12 09:15 | XMS_ITS | Encounter Summary ---
Author Organization [employer] Address [address] [place] [address] 7 [place] [address] Care Team Providers Care Front Tender Name Role Phone Rolanda Thakur MD Primary Care Provider +1 [phone] Encounter Details Date Type Department Care Team ([facility] st Contact Info) Description 06/21/2023 Abstract [facility] MEDICINE [address] [place] [address] Sherrie Caballero Social History Tobacco Use Types [...] filedocumented in this encounter Care Teams Front Tender Relationship Specialty Start Date End Date Rolanda Thakur MD [address] [place] [address] PCP - General Internal Medicine 09/19/22 documented as of this encounter
--- OUTSIDE RECORDS SUMMARY | 2025-06-12 09:15 | XMS_ITS | Encounter Summary ---
Author Organization [employer] Address [address] [place] [address] Care Team Providers Care Rehab Spec Name Role Phone Rolanda Thakur MD Primary Care Provider +1- [phone] Encounter Details Date Type Department Care Team ([facility] st Contact Info) Description 05/01/2023 Orders Only [facility] CHC MED & PEDS [address] [place] [address] Rolanda Thakur MD [address] [place] [address] Diabetic polyneuropathy associated with type 2 diabetes [...] polyneuropathy associated with type 2 diabetes mellitus ([facility]/HCC) TSH W/REFLEX TO FT4 Routine 05/08/2023 1 1:04 AM EDT Diabetic polyneuropathy associated with type 2 diabetes mellitus ([facility]/HCC) CBC WITH AUTO DIFFERENTIAL Routine 05/08/2023 11:04 AM EDT Diabetic polyneuropathy associated with type 2 diabetes mellitus ([facility]/HCC) HEMOGLOBIN A1C Routine 05/08/2023 11:04 AM EDT Diabetic polyneuropathy associated with type 2 diabetes mellitus ([facility]/HCC) HEPATIC FUNCTION PANEL Routine 05/08/2023 11:04 AM EDT Diabetic polyneuropathy associated with type 2 diabetes mellitus ([facility]/HCC) LIPID PANEL, STANDARD Routine 05/08/2023 11:04 AM EDT Diabetic polyneuropathy associated with type 2 diabetes mellitus ([facility]/HCC) BASIC METABOLIC PANEL Routine 05/08/2023 11:04 AM EDT Diabetic polyneuropathy associated with type 2 diabetes mellitus ([facility]/HCC) documented in this encounter Results * (ABNORMAL) Hemoglobin A1c (05/08/2023 11:04 AM EDT) Hemoglobin A1c 6.1(H) <6.0 % [facility] Comment:Hemoglobin A1C Refer ence Range Adults: [...] asaverage glucose, using the formula of the M8L-AcpwycfPxpvonh Glucose study (ADAG), Diabetes Care, Vol.31,#8,Mar. 2007 Blood Venous blood specimen / Unknown 05/08/2023 11:04 AM EDT 05/08/2023 1:46 PM EDT Rolanda Thakur MD LAB BLOOD ORDERABLES Final Result Performing Organization Address City/[facility]/ZIP Co de Phone Number [facility] [address] [place] [phone] * Vitamin D, 25-Hydroxy, Total, Immunoassay (05/08/2023 11:04 AM EDT) Vitamin D 25-OH Total 84.6 >30 ng/mL [facility] Comment:Health Based Referen ce Values*< 20 ng/mL Gtypggeua43-66 ng/mL Insufficient> 30 ng/mL Sufficient*Arabella MCALLISTER. N [...] Final Result Performing Organization Address [facility] Co de Phone Number [facility] [address] [place] [phone] * Hepatic Function Panel (05/08/2023 11:04 [...] ORDERABLES Final Result [facility] [address] [place] [phone] * (ABNORMAL) Lipid Panel, Standard (05/08/2023 11:04 AM EDT) Triglycerides 110 <150 mg/dL [facility] Comment:Desirable Triglyceri de: less than 150 [...] 190 mg/dL HDL Cholesterol 55 >40 mg/dL [facility] Comment:Desirable HDL: great er than 40 mg/dL Note: This HDL assay may give artificially low results in patients with liver disease. Blood Venous blood specimen / Unknown 05/08/2023 11:04 AM EDT 05/08/2023 1:47 PM EDT Rolanda Thakur MD LAB BLOOD ORDERABLES Final Result Performing Organization Address City/[facility]/ZIP Co de Phone Number [facility] [address] [place] [phone] * TSH W/Reflex to FT4 (05/08/2023 11:04 AM EDT) TSH reflex Free T4 0.53 0.32 - 4.0 uIU/mL [facility] Blood 05/08/2023 11:0 4 AM EDT 05/08/2023 1:47 PM EDT us Rolanda Thakur MD LAB BLOOD ORDERABLES Final Result Performing Organization Address [facility] Co de Phone Number [facility] [address] [place] [address] [phone] * (ABNORMAL) Basic Metabolic Panel (05/08/2023 [...] 1.210.Chronic Kidney Disease: Estimated GFR < 60 mL/min/1.71u0Icuzub Kidney Disease: Estimated GFR < 15 mL/min/1.73m2 Glucose 208(H) 60 - 115 mg/dL [facility] Calcium 10.1 8.4 - 10.2 mg/dL [facility] Blood Venous blood specimen / Unknown 05/08/2023 11:04 AM EDT 05/08/2023 1:47 PM EDT Rolanda Thakur MD LAB BLOOD ORDERABLES Final Result [facility] [address] [place] [phone] * (ABNORMAL) CBC auto differential (05/08/2023 [...] Final Result [facility] [address] [place] [phone] [phone] documented in this encounter Visit Diagnoses Diagnosis Diabetic polyneuropathy associated with type 2 diabetes mellitus (HCC)- Primary documented in this encounter Care Teams Rehab Spec Relationship Specialty Start Date End Date Rolanda Thakur MD [address] [place] [address] PCP - General Internal Medicine 09/19/22 documented as of this encounter
--- OUTSIDE RECORDS SUMMARY | 2025-06-12 09:15 | XMS_ITS | Encounter Summary ---
Author Organization [employer] Address [address] [address] Care Team Providers Care Chlorine Cells Operator Name Role Phone Rolanda Thakur MD Primary Care Provider +1- [phone] Reason for Visit * Reason Onset Date Comments Nurse Triage 04/17/2025 Encounter Details Date Type Department Care Team ([facility] st Contact Info) Description 04/17/2025 Telephone [facility]INE [address] [place] [address] Rolanda Thakur MD [address] [place], [place] [phone] Nurse Triage Social History Tobacco Use Types [...] to Angely Pineda to triage below at [phone]. Having urinary frequency and flankpain 10/28. Denies any pelvic pain, N/V, fever or pain. No dark color or odor. Pt states unable to come into office tomorrow due to working until 4:30pm. Pt wants PCP to place UA and cx order to be sent to [facility] labs. Pt advised will send request but also reminded that our [facility] is open on Monday 9a-1p and [...] documented as of this encounter Care Teams Chlorine Cells Operator Relationship Specialty Start Date End Date Rolanda Thakur MD [address] [place] [phone] PCP - General Internal Medicine 09/19/22 documented as of this encounter
--- OUTSIDE RECORDS SUMMARY | 2025-06-12 09:15 | XMS_ITS | Encounter Summary ---
Author Organization [employer] Address [address] [place] [address] [place] [address] Care Team Providers Care Centrifugal Separator Name Role Phone Rolanda Thakur MD Primary Care Provider +1- [phone] Encounter Details Date Type Department Care Team ([facility] Contact Info) Description 04/30/2025 Results Follow-Up [facility] CHC MED & PEDS [address] [place] [address] Rolanda Thakur MD [address] [place] [address] XR Hand 3+ Views Right, XR Hand [...] as of this encounter Care Teams Centrifugal Separator Relationship Specialty Start Date End Date Rolanda Thakur MD [address] [place] [phone] PCP - General Internal Medicine 09/19/22 documented as of this encounter
--- OUTSIDE RECORDS SUMMARY | 2025-06-12 09:15 | XMS_ITS | Encounter Summary ---
Author Organization [employer] Address [address] [place] [phone] Care Team Providers Care K9 Handler Name Role Phone Rolanda Thakur MD Primary Care Provider +1- [phone] Encounter Details Date Type Department Care Team ([facility] st Contact Info) Description 05/16/2023 Orders Only [facility] CHC MED & PEDS [address] [place], [place] [phone] Rolanda Thakur MD [address] [place] [address] Bilateral leg paresthesia (Primary Dx); Anxiety; Diabetic [...] Vitamin B6 16.0 2.1 - 21.7 ng/mL [facility] Comment:Vitamin supplementat ion within 24 hours prior toblood draw may affect the accuracy of the results.This test was developed and its analytical performancecharacteristics have been determined by [employer] [place], [place]. It hasnot been cleared or approved by the U.S. Food and DrugAdministration. This assay has been validated pursuantto the CLIA regulations and is used for clinicalpurposes.THIS TEST WAS PERFORMED AT:[employer] [place] [address]GWXWWJL W. MASON,MD,PHD Blood Venous blood specimen / Unknown 10/10/2023 12:50 PM EST 10/10/2023 2:41 PM EST us Rolanda Thakur MD LAB BLOOD ORDERABLES Final Result [facility] [address] [place] [phone] * (ABNORMAL) Vitamin B12 (10/10/2023 12:50 PM EST) Pathologist [facility] Vitamin B12 1,388(H) 200 - 900 pg/mL [facility] Comment:NORMAL 200-900 PG/ML INDETERMINATE 160-199 PG/ML DEFICIENT < 160 PG/ML Blood Venous blood specimen / Unknown 10/10/2023 12:50 PM EST 10/10/2023 2:41 PM EST us Rolanda Thakur MD LAB BLOOD ORDERABLES Final Result Performing Organization Address City/[facility]/ZIP Co de Phone Number [facility] [address] [place] [phone] [phone] * TSH W/Reflex to FT4 (10/10/2023 12:50 PM EST) Pathologist [facility] TSH reflex Free T4 0.35 0.32 - 4.0 uIU/mL [facility] Blood 10/10/2023 12:5 0 PM EST 10/10/2023 2:41 PM EST us Rolanda Thakur MD LAB BLOOD ORDERABLES Final Result Performing Organization Address City/[facility]/ZIP Co de Phone Number [facility] [address] [place] [address] [phone] * (ABNORMAL) CBC auto differential (10/10/2023 12:50 PM EST) White Blood Count 8.0 4.8 - 10.8 X10*3/uL [facility] Red Blood Count 4.19(L) 4.20 - 5.50 X10*6/uL [facility] Hemoglobin 12.3 12.0 - 16.0 g/dl [facility] Hematocrit 36.6(L) 37.0 - 47.0 % [facility] Mean Corpuscular Volume 87.4 80.0 - 98.0 fL [facility] Mean Corpuscular Hemoglobin 29.4 27.0 - 33.0 pg [facility] Mean Corpuscular HGB Conc 33.6 31.0 - 35.0 g/dl [facility] Red Cell Distribution Width 12.8 11.0 - 16.0 % [facility] Platelet Count 252 160 - 400 X10*3/uL [facility] Mean Platelet Volume 9.5 9.4 - 12.3 fL [facility] Neutrophils Percent Auto 55.5 45 - 73 % [facility] Imm Gran Pct Auto 0.4 0.0 - 0.4 % [facility] Lymphocytes Percent Auto 31.3 20 - 40 % [facility] Monocytes Percent Auto 6.0 2 - 11 % [facility] Eosinophils Percent Auto 5.9(H) 0 - 4 % [facility] Basophils Percent Auto 0.9 0 - 2 % [facility] NRBC Pct Auto 0.0 0.0 - 0.2 /100WBC [facility] Neutrophils Absolute Auto 4.5 2.0 - 8.3 x10*3/uL [facility] Imm Gran Abs Auto 0.03 0.00 - 0.03 X10*3/uL [facility] Lymphocytes Absolute Auto 2.5 1.2 - 4.9 X10*3/uL [facility] Monocytes Absolute Auto 0.5 0.1 - 1.2 X10*3/uL [facility] Eosinophils Absolute Auto 0.5(H) 0.0 - 0.4 X10*3/uL [facility] Basophils Absolute Auto 0.1 0.0 - 0.2 X10*3/uL [facility] NRBC Abs Auto 0.000 0.0 - 0.012 X10*3/uL [facility] Blood Venous blood specimen / Unknown 10/10/2023 12:50 PM EST 10/10/2023 2:41 PM EST us Rolanda Thakur MD LAB BLOOD ORDERABLES Final Result [facility] [address] [place] [phone] [phone] documented in this encounter Visit Diagnoses Diagnosis Bilateral leg paresthesia- Primary Disturbance of skin sensation Anxiety Anxiety state, unspecified Diabetic polyneuropathy associated with type 2 diabetes mellitus (HCC) documented in this encounter Care Teams K9 Handler Relationship Specialty Start Date End Date Rolanda Thakur MD [address] [place] [address] PCP - General Internal Medicine 09/19/22 documented as of this encounter
--- OUTSIDE RECORDS SUMMARY | 2025-06-12 09:15 | XMS_ITS | Encounter Summary ---
Author Organization [employer] Address [address] [place] [address] Care Team Providers Care Back Maker Name Role Phone Rolanda Thakur MD Primary Care Provider +1- [phone] Reason for Visit * Reason Onset Date Comments CT scan order 07/03/2024 Encounter Details Date Type Department Care Team ([facility] st Contact Info) Description 07/03/2024 Telephone [facility] CHC MED & PEDS [address] [place] [address] Rolanda Thakur MD [address] [place] [address] CT scan order Social History Tobacco Use [...] incorrect location. Pt prefers being seen in [facility]. Please call pt to clarify. documented in this encounter Plan of Treatment Not on file documented as of this encounter Visit Diagnoses Not on filedocumented in this encounter Additional Health Concerns Assessment Noted Time PHQ-9 Depression Total Score: 2 05/13/20 24 9:24 AM EDT documented as of this encounter Care Teams Back Maker Relationship Specialty Start Date End Date Rolanda Thakur MD [address] [place] [phone] PCP - General Internal Medicine 09/19/22 documented as of this encounter
--- OUTSIDE RECORDS SUMMARY | 2025-06-12 09:15 | XMS_ITS | Encounter Summary ---
Author Organization [employer] Address [address] [place] [address] 7 [place] [address] Care Team Providers Care Montessori Teacher Name Role Phone Rolanda Thakur MD Primary Care Provider +1- [phone] Encounter Details Date Type Department Care Team ([facility] st Contact Info) Description 05/01/2025 Orders Only [facility] CHC MED & PEDS [address] [place], [place] [phone] Rolanda Thakur MD [address] [place] [address] Recent urinary tract infection (Primary Dx) Social [...] EDT 05/10/2025 11:44 AM EDT Comment:CC Narrative [facility] - 05/11/2025 8:42 AM EDT Urine Culture No growth. Specimen Source: Urine clean catch us Rolanda Thakur MD LAB MICROBIOLOGY - GENERAL ORDERABLES Final Result [facility] [address] [place] [address] [phone] documented in this encounter Visit Diagnoses Diagnosis Recent urinary tract infection- Primary documented in this encounter Additional Health Concerns Assessment Noted Time PHQ-9 Depression Total Score: 2 05/13/20 24 9:24 AM EDT documented as of this encounter Care Teams Montessori Teacher Relationship Specialty Start Date End Date Rolanda Thakur MD [address] [place] [address] PCP - General Internal Medicine 09/19/22 documented as of this encounter
--- OUTSIDE RECORDS SUMMARY | 2025-06-12 09:15 | XMS_ITS | Encounter Summary ---
Author Organization [employer] Address [address] [place] [address] Care Team Providers Care Farm Adviser Name Role Phone Rolanda Thakur MD Primary Care Provider +1- [phone] Reason for Visit * Reason Comments Med Refill Encounter Details Date Type Department Care Team ([facility] st Contact Info) Description 03/02/2025 Refill [facility] CHC MED & PEDS [address] [place], [place] [phone] Rolanda Thakur MD [address] [place] [address] Diabetic polyneuropathy associated with type 2 diabetes [...] diabetes mellitus (HCC) documented in this encounter Additional Health Concerns Assessment Noted Time PHQ-9 Depression Total Score: 2 05/13/20 24 9:24 AM EDT documented as of this encounter Care Teams Farm Adviser Relationship Specialty Start Date End Date Rolanda Thakur MD [address] [place] [address] PCP - General Internal Medicine 09/19/22 documented as of this encounter
--- OUTSIDE RECORDS SUMMARY | 2025-06-12 09:15 | XMS_ITS | Encounter Summary ---
Author Organization [employer] Address [address] [address] Care Team Providers Care Blogs Manager Name Role Phone Rolanda Thakur MD Primary Care Provider +1- [phone] Reason for Visit * Reason Onset Date Comments Results 05/02/2025 Encounter Details Date Type Department Care Team ([facility] Contact Info) Description 05/02/2025 Telephone [facility] MEDICINE [address] [place] [address] Rolanda Thakur MD [address] [place], [place] [phone] Results Social History Tobacco Use Types Packs/Day [...] back regarding results as well as a [employer] message stating she will be referred to a urologist. Pt expressed frustration due to the fact that she has not received a callfrom a nurse regarding results but is now being referred, she would like to further discuss before the day ends. Please contact pt at [phone]. documented in this encounter Plan of Treatment Not on file documented as of this encounter Visit Diagnoses Not on filedocumented in this encounter Additional Health Concerns Assessment Noted Time PHQ-9 Depression Total Score: 2 05/13/20 24 9:24 AM EDT documented as of this encounter Care Teams Blogs Manager Relationship Specialty Start Date End Date Rolanda Thakur MD [address] [place] [address] PCP - General Internal Medicine 09/19/22 documented as of this encounter
--- OUTSIDE RECORDS SUMMARY | 2025-06-12 09:15 | XMS_ITS | Encounter Summary ---
Author Organization [employer] Address [address] [place] [address] Care Team Providers Care Trim Setter Name Role Phone Rolanda Thakur MD Primary Care Provider +[phone] Reason for Referral * Imaging (Routine) - Closed Specialty Diagnoses / Procedures Referred By Contac t Referred To Contact Radiology Diagnoses Hyponatremia Decreased GFR Procedures US RENAL BI Rolanda Thakur MD [address] [place] [address] Phone: tel: fax: [address] Phone: tel: fax: Referral ID Status Reason Start Date Expiration Date Visits Re quested Visits Authorized [id number] Closed 07/18/2024 07/18/2025 1 0 Encounter Details Date Type Department Care Team (Late st Contact Info) Description 07/09/2024 Orders Only [facility] [address] [place], [place] [phone] Rolanda Thakur MD [address] [place], [place] [phone] Hyponatremia (Primary Dx); Decreased GFR Social History [...] EDT) Sodium 133(L) 135 - 145 mmol/L [facility] Potassium 4.9 3.3 - 5.1 mmol/L [facility] Chloride 104 96 - 108 mmol/L [facility] Carbon Dioxide 23 22 - 29 mmol/L [facility] Anion Gap 11(L) 12 - 20 [facility] Urea Nitrogen (BUN) 15 9 - 16 mg/dL [facility] Creatinine, Serum 0.82 0.5 - 1.4 mg/dL [facility] Estimated Glomerular Filt Rate >60 [facility] Comment:Chronic Kidney Disea se: Estimated GFR < 60 mL/min/1.16b5Xeojes Kidney Disease: Estimated GFR < 15 mL/min/1.73m2 Glucose 177(H) 60 - 115 mg/dL [facility] Calcium 9.5 8.4 - 10.2 mg/dL [facility] Blood Venous blood specimen / Unknown 02/05/2025 12:22 PM EDT 02/05/2025 1:20 PM EDT Rolanda Thakur MD LAB BLOOD ORDERABLES Final Result [facility] [address] [place] [address] [phone] documented in this encounter Visit Diagnoses Diagnosis Hyponatremia- Primary Hyposmolality and/or hyponatremia Decreased GFR documented in this encounter Additional Health Concerns Assessment Noted Time PHQ-9 Depression Total Score: 2 05/13/20 24 9:24 AM EDT documented as of this encounter Care Teams Trim Setter Relationship Specialty Start Date End Date Rolanda Thakur MD [address] [place] [address] PCP - General Internal Medicine 09/19/22 documented as of this encounter
--- OUTSIDE RECORDS SUMMARY | 2025-06-12 09:15 | XMS_ITS | Encounter Summary ---
Author Organization [employer] Address [address] [address] Care Team Providers Care Bus And Sys Integration Senior Manager Name Role Phone Rolanda Thakur MD Primary Care Provider +1- [phone] Reason for Visit * Reason Onset Date Comments Call Back Request 10/31/2024 Encounter Details Date Type Department Care Team ([facility] st Contact Info) Description 10/31/2024 Telephone [facility] MEDICINE [address] [place] [address] Rolnada Thakur MD [address] [place], [place] [phone] Call Back Request Social History Tobacco Use [...] to DR. Castañeda. Please contact pt at [phone]. documented in this encounter Plan of Treatment Not on file documented as of this encounter Visit Diagnoses Not on filedocumented in this encounter Additional Health Concerns Assessment Noted Time PHQ-9 Depression Total Score: 2 05/13/20 24 9:24 AM EDT documented as of this encounter Care Teams Bus And Sys Integration Senior Manager Relationship Specialty Start Date End Date Rolanda Thakur MD [address] [place] [phone] PCP - General Internal Medicine 09/19/22 documented as of this encounter
--- OUTSIDE RECORDS SUMMARY | 2025-06-12 09:15 | XMS_ITS | Encounter Summary ---
Author Organization [employer] Address [address] [address] Care Team Providers Care Keno Writer / Runner Name Role Phone Rolanda Thakur MD Primary Care Provider +1- [phone] Reason for Visit * Reason Onset Date Comments Referral 02/28/2025 Encounter Details Date Type Department Care Team ([facility] st Contact Info) Description 02/28/2025 Telephone [facility] MEDICINE [address] [place] [address] Rolanda Thakur MD [address] [place], [place] [phone] Referral Social History Tobacco Use Types Packs/Day [...] to change location of endocrinology referral: Address: [address] [place] [address] [place] [address] Facility Name: [facility] Type of Specialist: Endocrinology Provider: Dr. Aren Banerjee documented in this encounter Plan of Treatment Not on file documented as of this encounter Visit Diagnoses Not on filedocumented in this encounter Additional Health Concerns Assessment Noted Time PHQ-9 Depression Total Score: 2 05/13/20 24 9:24 AM EDT documented as of this encounter Care Teams Keno Writer / Runner Relationship Specialty Start Date End Date Rolanda Thakur MD [address] [place] [phone] PCP - General Internal Medicine 09/19/22 documented as of this encounter
--- OUTSIDE RECORDS SUMMARY | 2025-06-12 09:15 | XMS_ITS | Encounter Summary ---
Author Organization [employer] Address [address] [address] Care Team Providers Care English Composition Instructor Name Role Phone Rolanda Thakur MD Primary Care Provider +1- [phone] Reason for Visit * Reason Onset Date Comments call back / orders 04/22/2025 Encounter Details Date Type Department Care Team ([facility] st Contact Info) Description 04/22/2025 Telephone [facility] MEDICINE [address] [place] [address] Rolanda Thakur MD [address] [place], [place] [phone] call back / orders Social History Tobacco [...] message send by pt Contact pt at [phone] documented in this encounter Plan of Treatment Not on file documented as of this encounter Visit Diagnoses Not on filedocumented in this encounter Additional Health Concerns Assessment Noted Time PHQ-9 Depression Total Score: 2 05/13/20 24 9:24 AM EDT documented as of this encounter Care Teams English Composition Instructor Relationship Specialty Start Date End Date Rolanda Thakur MD [address] [place] [phone] PCP - General Internal Medicine 09/19/22 documented as of this encounter
--- OUTSIDE RECORDS SUMMARY | 2025-06-12 09:15 | XMS_ITS | Encounter Summary ---
Author Organization [employer] Address [address] [place] [address] Care Team Providers Care Software Systems Analyst Name Role Phone Rolanda Thakur MD Primary Care Provider +1- [phone] Reason for Referral * Consultation (Routine) - Canceled Specialty Diagnoses / Procedures Referred By Contac t Referred To Contact Pharmacy Diagnoses Type 2 diabetes mellitus without complication, without long-term current use of insulin (HCC) Rolanda Thakur MD [address] [place] [address] Phone: tel: fax: Referral ID Status Reason Start Date Expiration Date V isits Requested Visits Authorized [id number] Canceled Consult and Treat 04/14/2025 04/14/2026 6 6 Encounter Details Date Type Department Care Team (Late st Contact Info) Description 04/14/2025 Orders Only [facility] CHC MED & PEDS [address] [place] [address] Rolanda Thakur MD [address] [place] [address] Type 2 diabetes mellitus without complication, without [...] long-term current use of insulin ([facility]) Recent urinary tract infection Expected: 04/18/2025 (Approximate), [...] long-term current use of insulin ([facility]) Recent urinary tract infection documented in this encounter Results * (ABNORMAL) Urinalysis, Complete, with Reflex to Culture (04/30/2025 8:37 AM EDT) Color Urine Dark Yellow [facility] Appearance Urine Clear [facility] PH 6.5 5.0 - 9.0 [facility] Glucose Urine UA Negative Negative mg/dL [facility] Urine Blood Negative Negative [facility] Specific [employer] - Urine 1.010 1.005 - 1.025 [facility] Urine Protein Negative Neg-Trace mg/dL [facility] Urine Ketones Negative Negative mg/dL [facility] Nitrite Urine Negative Negative [facility] Leukocyte Esterase Urine Small (1+)(A) Negative [facility] RBC Urine 0-2 0 - 2 /HPF [facility] Urine WBC 0-5 0 - 5 /HPF [facility] Urine Squamous Epithelial Cell 0-2 0 - 2 /HPF [facility] Urine Bacteria None Seen None Seen [facility] Hyaline Casts, Urine 0-2 0 - 2 /LPF [facility] Urine 04/30/2025 8:37 AM EDT 04/30/2025 1:12 PM EDT Narrative [facility] - 04/30/2025 2:16 PM EDT Urine, Clean Catch us Rolanda Thakur MD LAB URINE ORDERABLES Final Result [facility] [address] [place] [address] [phone] documented in this encounter Visit Diagnoses Diagnosis Type 2 diabetes mellitus without complication, without long-term current use of insulin ([facility])- Primary Recent urinary tract infection documented in this encounter Additional Health Concerns Assessment Noted Time PHQ-9 Depression Total Score: 2 05/13/20 24 9:24 AM EDT documented as of this encounter Care Teams Software Systems Analyst Relationship Specialty Start Date End Date Rolanda Thakur MD [address] [place] [address] PCP - General Internal Medicine 09/19/22 documented as of this encounter
--- OUTSIDE RECORDS SUMMARY | 2025-06-12 09:15 | XMS_ITS | Encounter Summary ---
Author Organization [employer] Address [address] [place] [address] 7 [place] [address] Care Team Providers Care Database Consultant Name Role Phone Rolanda Thakur MD Primary Care Provider +1- [phone] Reason for Visit * Reason Comments Med Refill Encounter Details Date Type Department Care Team ([facility] st Contact Info) Description 12/28/2022 Refill [facility] CHC MED & PEDS [address] [place] [address] Maren Hough MD [address] [place] [address] Type 2 diabetes mellitus without complication, without long-term current use of insulin ([facility]); Anxiety Social History Tobacco Use Types [...] without long-term current use of insulin (HCC) Anxiety Anxiety state, unspecified documented in this encounter Care Teams Database Consultant Relationship Specialty Start Date End Date Rolanda Thakur MD [address] [place] [address] PCP - General Internal Medicine 09/19/22 documented as of this encounter
--- OUTSIDE RECORDS SUMMARY | 2025-06-12 09:15 | XMS_ITS | Encounter Summary ---
Author Organization [employer] Address [address] [place] [address] 7 [place] [address] Care Team Providers Care Cup Setter Lockstitch Name Role Phone Rolanda Thakur MD Primary Care Provider +1 [phone] Encounter Details Date Type Department Care Team ([facility] Contact Info) Description 04/18/2025 Orders Only [facility] CHC MED & PEDS [address] [place], [place] [phone] Migdalia Loza FNP [address] [place] [address] Acquired hypothyroidism (Primary Dx); UTI symptoms; Type 2 diabetes mellitus without complication, without long-term current use of insulin ([facility]) Social History Tobacco [...] (04/18/2025 8:39 AM EDT) Color Urine Yellow [facility] Appearance Urine Clear [facility] PH 6.0 5.0 - 9.0 [facility] Glucose Urine UA Negative Negative mg/dL [facility] Urine Blood Negative Negative [facility] Specific [place] - Urine 1.010 1.005 - 1.025 [facility] Urine Protein Negative Neg-Trace mg/dL [facility] Urine Ketones Negative Negative mg/dL [facility] Nitrite Urine Negative Negative [facility] Leukocyte Esterase Urine Small (1+)(A) Negative [facility] RBC Urine 0-2 0 - 2 /HPF [facility] Urine WBC 0-5 0 - 5 /HPF [facility] Urine Squamous Epithelial Cell 0-2 0 - 2 /HPF [facility] Urine Bacteria None Seen None Seen [facility] Hyaline Casts, Urine 0-2 0 - 2 /LPF [facility] Urine 04/18/2025 8:39 AM EDT 04/18/2025 2:25 PM EDT Narrative [facility] - 04/18/2025 4:11 PM EDT [id number], Clean Catch Migdalia Loza DENT REMOVER LAB URINE ORDERABLES Final Res ult Performing Organization Address City/[facility]/ZIP Co de Phone Number [facility] [address] [place] [phone] * TSH W/Reflex to FT4 (04/18/2025 8:31 AM EDT) TSH reflex Free T4 1.59 0.32 - 4.0 uIU/mL [facility] Blood Venous blood specimen / Unknown 04/18/2025 8:31 AM EDT 04/18/2025 2:28 PM EDT Migdalia Loza DENT REMOVER LAB BLOOD ORDERABLES Final Res ult Performing Organization Address City/[facility]/ZIP Co de Phone Number [facility] [address] [place] [phone] * Culture, Urine, Routine (04/18/2025 12:00 AM EDT) Urine Urine specimen obtained by clean catch procedure / Unknown 04/18/2025 04/18/2025 Comment:UACC Narrative [facility] - 04/20/2025 9:46 AM EDT Urine Culture Report Result Urine Culture > 100,000 cfu/ml Urine Culture Mixed bacterial hailey characteristic of Urine Culture urogenital contamination. Specimen Source: Urine clean catch us Migdalia Loza DENT REMOVER LAB MICROBIOLOGY - GENERAL ORD ERABLES Final Result [facility] [address] [place] [phone] documented in this encounter Visit Diagnoses Diagnosis Acquired hypothyroidism- Primary Unspecified hypothyroidism UTI symptoms Type 2 diabetes mellitus without complication, without long-term current use of insulin (HCC) documented in this encounter Additional Health Concerns Assessment Noted Time PHQ-9 Depression Total Score: 2 05/13/20 24 9:24 AM EDT documented as of this encounter Care Teams Cup Setter Lockstitch Relationship Specialty Start Date End Date Rolanda Thakur MD [address] [place] [address] PCP - General Internal Medicine 09/19/22 documented as of this encounter
--- OUTSIDE RECORDS SUMMARY | 2025-06-12 09:15 | XMS_ITS | Clinical Summary ---
Author Organization [address] [facility] Address [address] [place] [address] Phone Care Team Providers Care Executive Coordinator Name Role Phone Rolanda Thakur MD Primary Care Provider +1 -[phone] Allergies Active Allergy Reactions Criticality Noted Date [...] aware that this will likely be an [id number] cost and feels as though she can afford it. I will review results and determine need for future follow-up. In the meantime she would like to hold off on statin therapy which I think is totally reasonable. Orders: ECG 12 lead Pure hypercholesterolemia 07/08/2024 Assessment & Plan (07/08/2024 4:42 PM EST): See plan above. Encounters Date Type Department Care Team Description 06/08/2025 10:50 AM EDT - 06/08/2025 11:59 PM EDT Hospital Encounter [facility] Ultrasound [address] [place] [phone] Overactive bladder Discharge Disposition: Home or Self Care 04/02/2025 Telephone [facility] [address] [place] [address] Nikki Rawls MD from Last [...] Description 06/23/2025 7:40 AM EST Office Visit [facility] - [facility] [address] [facility] [address] [place] [phone] Kadi Palacios NP [address] [place] [address] Health Maintenance Due Date Last Done Comments Diabetes: Annual Foot Exam 1961 Diabetes: Annual Retina Eye Exam 1961 Falls Risk Assessment 07/20/2022 Medicare Annual Wellness Visit 07/20/2022 Social Influencers of Health Screening 07/20/2022 Diabetes: Annual Urine Albumin-Creatinine Ratio (uACR) 10/04/2023 Depression Screening 08/21/2024 COVID-19 Vaccine ( season) 2025 07/10/2021, 11/04/2020 Influenza Vaccine (#1) 2025 , 06/26/2023, 06/27/2021, Additional history exists Diabetes: Blood Sugar Control Test (HGBA1C) 11/07/2025 05/10/2025, 07/06/2024 Diabetes: Annual GFR (Glomerular Filtration Rate) 05/10/2026 05/10/2025, 04/12/2025, 11/23/2024, Additional history exists Hypertension/CHF/CAD Annual BMP Blood Test 05/10/2026 05/10/2025, 04/12/2025, 11/23/2024, Additional history exists Breast Cancer Screening 12/17/2026 12/18/19 25, 10/23/2023, 10/12/2022, Additional history exists Colorectal Cancer Screening: FIT-DNA (Cologuard) 08/09/2027 08/09/2024 Cholesterol Screening (Lipid Panel) 05/10/2030 05/10/2025, 04/12/2025, 07/17/2024, Additional history exists DTaP,Tdap,and Td Vaccines (6 - Td or [...] year. Mammo Location: [facility], [address] [place] [address], [phone], . -------- FINAL REPORT -------- Dictated By: Peggy Reddy Dictated Date: 12/18/2024 07:51 ET Assigned Physician: Peggy Reddy Reviewed and Electronically Signed By: Peggy Reddy Signed Date: 12/18/2024 07:55 ET Workstation ID: [id number] Transcribed By: Self Edit Transcribed Date: 12/18/2024 [...] year. Mammo Location: [facility], [address] [place] [address], [phone], . -------- FINAL REPORT -------- Dictated By: Peggy Reddy Dictated Date: 12/18/2024 07:51 ET Assigned Physician: Peggy Reddy Reviewed and Electronically Signed By: Peggy Reddy Signed Date: 12/18/2024 07:55 ET Workstation ID: [id number] Transcribed By: Self Edit Transcribed Date: 12/18/2024 07:51 ET us Self Referral Sppl IMG BI PROCEDURES Final Resul t * MOHAMUD DEXA AXIAL SKELETON (04/12/2023 7:46 AM EDT) Anatomical Region Laterality Modality Mammography 04/11/2023 3:03 PM EDT Narrative 04/12/2023 7:46 AM EDT [facility] Diagnostic Imaging Department [address] [place] [address] [id number] Patient: ADANGELYIRIS Unger/Age/Sex: 1950 - 72 - F Unit#: [id number] [facility] CLI Mnemonic/Ordering Site: MAMDEXAAX/SPMAM Ordering Physician: [...] probability of hip fracture of 2.2%. Code 43775 Dictating Physician: GWENDOLYN BAHENA MD Electronically Signed by: GWENDOLYN BAHENA MD Dic Date/Time: 04/12/23 0745 Sign date/Time: 04/12/23745 Procedure Note Gwendolyn Bahena MD - 09/26/2023 [facility] Diagnostic Imaging Department [address] [place] [address] Patient: ADANGELY YARA /Age/Sex: 1950 72 - F Unit#: [id number] Location/Status: SPDIMAM/REG CLI Mnemonic[facility] Ordering Physician: MAREN UREÑA MD Mohamud Dexa Axial Skeleton - 04/11/23 - 0366 Report Status:Signed HISTORY: The patient is a [...] density of the femurs bilaterally is 0.874 gm/dn6ztsbb is 87% of that of young normals [...] probability of hip fracture of 2.2%. Code 15853 Dictating Physician: GWENDOLYN BAHENA MD Electronically Signed by: GWENDOLYN BAHENA MD Dic Date/Time: 04/12/23 0745 Sign date/Time: 04/12/2346 Maren Ureña MD IMG BI PROCEDURES Final Result from Last 3 Months or Most Recently Relevant to Health Maintenance Insurance [employer] MEDICARE Care Teams Executive Coordinator Relationship Specialty Start Date End Date Rolanda Thakur MD [address] [place] [address] PCP - General 11/03/23
--- OUTSIDE RECORDS SUMMARY | 2025-06-12 09:15 | XMS_ITS | Encounter Summary ---
Author Organization [employer] Address [address] [place] [address] 7 [place] [address] Care Team Providers Care Skein Winding Operator Name Role Phone Rolanda Thakur MD Primary Care Provider +1- [phone] Encounter Details Date Type Department Care Team ([facility] Contact Info) Description 04/22/2025 Results Follow-Up [facility] CHC MED & PEDS [address] [place] [address] Migdalia Loza FNP [address] [place] [address] TSH W/Reflex to FT4, Urinalysis, Complete, with [...] documented as of this encounter Care Teams Skein Winding Operator Relationship Specialty Start Date End Date Rolanda Thakur MD [address] [place] [address] PCP - General Internal Medicine 09/19/22 documented as of this encounter
--- OUTSIDE RECORDS SUMMARY | 2025-06-12 09:15 | XMS_ITS | Encounter Summary ---
Author Organization [employer] Address [address] [place] [address] Care Team Providers Care Premium Auditor Name Role Phone Rolanda Thakur MD Primary Care Provider +1- [phone] Reason for Visit * Reason Onset Date Comments Referral 05/18/2023 Encounter Details Date Type Department Care Team ([facility] st Contact Info) Description 05/18/2023 Telephone [facility] CHC MED & PEDS [address] [place] [address] Rolanda Thakur MD [address] [place] [address] Referral Social History Tobacco Use Types Packs/Day [...] advise. Also sent you her response from [employer]. Thanks. * Telephone Encounter - Annabella Peña [...] to Specialty: (EMG) Dr nolasco Date&Time: N/a Thermometer Tester: n/a Please call pt to clarify documented in this encounter Plan of Treatment Not on file documented as of this encounter Visit Diagnoses Not on filedocumented in this encounter Care Teams Premium Auditor Relationship Specialty Start Date End Date Rolanda Thakur MD [address] [place] [address] PCP - General Internal Medicine 09/19/22 documented as of this encounter
--- OUTSIDE RECORDS SUMMARY | 2025-06-12 09:15 | XMS_ITS | Encounter Summary ---
Author Organization [employer] Address [address] [place] [address] Care Team Providers Care Refrigeration Service Inspector Name Role Phone Rolanda Thakur MD Primary Care Provider +1- [phone] Reason for Visit * Reason Onset Date Comments Med Refill 04/16/2025 Encounter Details Date Type Department Care Team ([facility] st Contact Info) Description 04/16/2025 Refill [facility] CHC MED & PEDS [address] [place] [address] Rolanda Thakur MD [address] [place] [address] Acquired hypothyroidism Social History Tobacco Use Types [...] documented as of this encounter Care Teams Refrigeration Service Inspector Relationship Specialty Start Date End Date Rolanda Thakur MD [address] [place] [address] PCP - General Internal Medicine 09/19/22 documented as of this encounter
--- OUTSIDE RECORDS SUMMARY | 2025-06-12 09:15 | XMS_ITS | Encounter Summary ---
Author Organization [employer] Address [address] [place] [address] Care Team Providers Care Jack Winder Name Role Phone Rolanda Thakur MD Primary Care Provider +1- [phone] Reason for Visit * Reason Onset Date Comments Med Refill 05/08/2025 Encounter Details Date Type Department Care Team ([facility] st Contact Info) Description 05/08/2025 Refill [facility] CHC MED & PEDS [address] [place] [address] Rolanda Thakur MD [address] [place] [address] Recent urinary tract infection Social History Tobacco [...] documented as of this encounter Care Teams Jack Winder Relationship Specialty Start Date End Date Rolanda Thakur MD [address] [place] [address] PCP - General Internal Medicine 09/19/22 documented as of this encounter
--- OUTSIDE RECORDS SUMMARY | 2025-06-12 09:15 | XMS_ITS | Encounter Summary ---
Author Organization [employer] Address [address] [facility] 7 [place] [address] Care Team Providers Care Sem Manager Name Role Phone Rolanda Thakur MD Primary Care Provider [phone] Encounter Details Date Type Department Care Team ([facility] Contact Info) Description 02/05/2025 Orders Only [facility] CHC MED & PEDS [address] [place], [place] [phone] Rolanda Thakur MD [address] [place] [address] Acquired hypothyroidism Social History Tobacco Use Types [...] documented as of this encounter Care Teams Sem Manager Relationship Specialty Start Date End Date Rolanda Thakur MD [address] [place] [address] PCP - General Internal Medicine 09/19/22 documented as of this encounter
--- OUTSIDE RECORDS SUMMARY | 2025-06-12 09:15 | XMS_ITS | Encounter Summary ---
Author Organization [employer] Address [address] [place] [address] Care Team Providers Care Welding Specialist Name Role Phone Rolanda Thakur MD Primary Care Provider +1- [phone] Reason for Referral * Consultation (Routine) - Authorized Specialty Diagnoses / Procedures Referred By Contac t Referred To Contact Endocrinology Diagnoses Type 2 diabetes mellitus without complication, without long-term current use of insulin (HCC) Benign essential hypertension Rolanda Thakur MD [address] [place] [address] Phone: tel: fax: [facility] [address] , [address] [place] [address] Phone: tel: fax: Referral ID Status Reason Start Date Expiration Date Visits Requested Visits Authorized [id number] Authorized Specialty Services Required 11/07/2024 11/07/2025 1 1 Encounter Details Date Type Department Care Team (Late st Contact Info) Description 11/07/2024 Orders Only [facility] MEDICINE [address] [place] [address] Rolanda Thakur MD [address] [place] [address] Type 2 diabetes mellitus without complication, without [...] is your housing situation today? I have ojhnny gentile 07/06/[address] you [...] complication, without long-term current use of insulin ([facility]/HCC) Benign essential hypertension Expected: 11/07/2024 (Approximate), Expires: 11/07/2025 documented as of this encounter Visit Diagnoses Diagnosis Type 2 diabetes mellitus without complication, without long-term current use of insulin (HCC)- Primary Benign essential hypertension Essential hypertension, benign documented in this encounter Additional Health Concerns Assessment Noted Time PHQ-9 Depression Total Score: 2 05/13/20 24 9:24 AM EDT documented as of this encounter Care Teams Welding Specialist Relationship Specialty Start Date End Date Rolanda Thakur MD [address] [place] [address] PCP - General Internal Medicine 09/19/22 documented as of this encounter
--- OUTSIDE RECORDS SUMMARY | 2025-06-12 09:15 | XMS_ITS | Encounter Summary ---
Author Organization [employer] Address [address] [place] [address] Care Team Providers Care Project Coordinator Name Role Phone Rolanda Thakur MD Primary Care Provider [phone]- [phone] Reason for Visit * Reason Onset Date Comments Med Refill 04/17/2025 Encounter Details Date Type Department Care Team ([facility] st Contact Info) Description 04/17/2025 Telephone [facility] CHC MED & PEDS [address] [place] [address] Rolanda Thakur MD [address] [place] [address] Med Refill Social History Tobacco Use Types [...] 125 MCG tablet To [id number] [place] [facility] [address] [facility] Pt has no more medication [...] as of this encounter Care Teams Project Coordinator Relationship Specialty Start Date End Date Rolanda Thakur MD [address] [place] [address] [place] [address] PCP - General Internal Medicine 09/19/22 documented as of this encounter
--- OUTSIDE RECORDS SUMMARY | 2025-06-12 09:15 | XMS_ITS | Encounter Summary ---
Author Organization [employer] Address [address] [place] [address] Care Team Providers Care Advertising Vice President Name Role Phone Rolanda Thakur MD Primary Care Provider +1- [phone] Reason for Visit * Reason Comments Med Refill Encounter Details Date Type Department Care Team ([facility] st Contact Info) Description 12/03/2024 Refill [facility] CHC MED & PEDS [address] [place], [place] [phone] Rolanda Thakur MD [address] [place] [address] Diabetic polyneuropathy associated with type 2 diabetes [...] documented as of this encounter Care Teams Advertising Vice President Relationship Specialty Start Date End Date Rolanda Thakur MD [address] [place] [address] PCP - General Internal Medicine 09/19/22 documented as of this encounter
--- OUTSIDE RECORDS SUMMARY | 2025-06-12 09:15 | XMS_ITS | Encounter Summary ---
Author Organization [employer] Address [address] [address] Care Team Providers Care Test And Turn Up Technician Name Role Phone Rolanda Thakur MD Primary Care Provider [phone]- [phone] Reason for Visit * Reason Onset Date Comments Nurse Triage 08/05/2024 Encounter Details Date Type Department Care Team ([facility] st Contact Info) Description 08/05/[address] [facility] MEDIC[facility] [address] [place] [address] Rolanda Thakur MD [address] [place], [place] [phone] Nurse Triage Social History Tobacco Use Types [...] 1145am. Pt is advised to come to [facility] today which is open till 8pm and also open 830am -800pm tomorrow. Pt agrees with this disposition. Pt will [facility] come [facility] todaybut, if unable will come tomorrow. Pt [...] documented as of this encounter Care Teams Test And Turn Up Technician Relationship Specialty Start Date End Date Rolanda Thakur MD [address] [place] [address] PCP - General Internal Medicine 09/19/22 documented as of this encounter
--- OUTSIDE RECORDS SUMMARY | 2025-06-12 09:16 | XMS_ITS | Encounter Summary ---
Author Organization [employer] Address [address] [place] [address] Care Team Providers Care Student Support Counselor Name Role Phone Rolanda Thakur MD Primary Care Provider +1- [phone] Reason for Visit * Reason Comments Med Refill Encounter Details Date Type Department Care Team ([facility] st Contact Info) Description 05/20/2024 Refill [facility] CHC MED & PEDS 505 [place] [address] Rolanda Thakur MD 505 [place] [address] Diabetic polyneuropathy associated with type 2 diabetes mellitus ([facility]) Social History Tobacco Use Types [...] documented as of this encounter Care Teams Student Support Counselor Relationship Specialty Start Date End Date Rolanda Thakur MD [address] [place] [address] PCP - General Internal Medicine 09/19/22 documented as of this encounter
--- OUTSIDE RECORDS SUMMARY | 2025-06-12 09:16 | XMS_ITS | Encounter Summary ---
Author Organization [employer] Address [address] [place] [address] Care Team Providers Care Machine Builder Name Role Phone Rolanda Thakur MD Primary Care Provider +1- [phone] Encounter Details Date Type Department Care Team ([facility] st Contact Info) Description 04/08/2024 Orders Only [facility] [address] [place], [place] [phone] Rolanda Thakur MD 505 [place] [address] UTI symptoms (Primary Dx) Social History Tobacco [...] Primary documented in this encounter Care Teams Machine Builder Relationship Specialty Start Date End Date Rolanda Thakur MD 505 [place] [address] PCP - General Internal Medicine 09/19/22 documented as of this encounter
--- OUTSIDE RECORDS SUMMARY | 2025-06-12 09:16 | XMS_ITS | Encounter Summary ---
Author Organization [employer] Address [address] [place] [address] Care Team Providers Care Special Agent Fbi Name Role Phone Rolanda Thakur MD Primary Care Provider +1- [phone] Encounter Details Date Type Department Care Team ([facility] Contact Info) Description 05/22/2024 Orders Only [facility] CHC MED & PEDS 505 [place] [address] Rolanda Thakur MD 505 [place] [address] Social History Tobacco Use Types Packs/Day Years [...] as of this encounter Care Teams Special Agent Fbi Relationship Specialty Start Date End Date Rolanda Thakur MD [address] [place] [address] PCP - General Internal Medicine 09/19/22 documented as of this encounter
--- OUTSIDE RECORDS SUMMARY | 2025-06-12 09:16 | XMS_ITS | Encounter Summary ---
Author Organization [employer] Address [address] [address] Care Team Providers Care Extruding Department Supervisor Name Role Phone Rolanda Thakur MD Primary Care Provider +1- [phone] Reason for Visit * Reason Onset Date Comments Durable Medical Equipment 04/29/2024 Encounter Details Date Type Department Care Team (Late st Contact Info) Description 04/29/2024 Telephone [facility] 230 [place] [address] Rolanda Thakur MD 505 [place], [place] [phone] Durable Medical Equipment Social History Tobacco Use [...] - 04/29/2024 3:34 PM EDT Tc from [facility] stating pt is requesting blood pressure monitor but they don't have a script. If any questions you can contact [facility] at [phone]. documented in this encounter Plan of Treatment Not on file documented as of this encounter Visit Diagnoses Not on filedocumented in this encounter Care Teams Extruding Department Supervisor Relationship Specialty Start Date End Date Rolanda Thakur MD [address] [place] [address] PCP - General Internal Medicine 09/19/22 documented as of this encounter
--- OUTSIDE RECORDS SUMMARY | 2025-06-12 09:16 | XMS_ITS | Encounter Summary ---
Author Organization [employer] Address [address] [place] [address] Care Team Providers Care Production Operations Engineer Name Role Phone Rolanda Thakur MD Primary Care Provider +1- [phone] Reason for Visit * Reason Onset Date Comments EKG 06/18/2024 Encounter Details Date Type Department Care Team ([facility] Contact Info) Description 06/18/2024 Telephone [facility] CHC MED & PEDS 505 [place] [address] Rolanda Thakur MD 505 [place] [address] EKG Social History Tobacco Use Types Packs/Day [...] pt's symptoms, she would need a [facility] appointment to get the notes for our senior accounting specialist to process the referral. * Telephone [...] should seek a neurology referral. She states powder expert advised her to get a referral due to procedure done for cataracts might have struck a nerve and that might be were the headaches are coming from. * Telephone Encounter - Annabella Peña - 06/18/2024 4:03 PM EDT Tc from pt requesting status on order for EKG. Contact Paulette at [phone] documented in this encounter Plan of Treatment Not on file documented as of this encounter Visit Diagnoses Not on filedocumented in this encounter Additional Health Concerns Assessment Noted Time PHQ-9 Depression Total Score: 2 05/13/20 24 9:24 AM EDT documented as of this encounter Care Teams Production Operations Engineer Relationship Specialty Start Date End Date Rolanda Thakur MD [address] [place] [address] PCP - General Internal Medicine 09/19/22 documented as of this encounter
--- OUTSIDE RECORDS SUMMARY | 2025-06-12 09:16 | XMS_ITS | Encounter Summary ---
Author Organization [employer] Address 75 [facility] 7t [place] [address] Care Team Providers Care Material Assistant Name Role Phone Rolanda Thakur MD Primary Care Provider +1 [phone] Encounter Details Date Type Department Care Team ([facility] st Contact Info) Description 12/18/2024 Orders Only [facility] CHC MED & PEDS [address] [place] [address] ProviderChema MD Social History Tobacco Use Types [...] documented as of this encounter Care Teams Material Assistant Relationship Specialty Start Date End Date Rolanda Thakur MD [address] [place] [address] PCP - General Internal Medicine 09/19/22 documented as of this encounter
--- OUTSIDE RECORDS SUMMARY | 2025-06-12 09:16 | XMS_ITS | Encounter Summary ---
Author Organization [employer] Address [address] [address] Care Team Providers Care Breakfast Cook Name Role Phone Rolanda Thakur MD Primary Care Provider +1- [phone] Reason for Visit * Reason Comments Med Refill Encounter Details Date Type Department Care Team ([facility] st Contact Info) Description 02/05/2025 Refill [facility] 230 [place] [address] Rolanda Thakur MD 505 [place], [place] [phone] Acquired hypothyroidism Social History Tobacco Use Types [...] her Thyroid Medication. Pt states her diabetic director operating changed the dosage to 1.12. documented in this encounter Plan of Treatment Not on file documented as of this encounter Visit Diagnoses Diagnosis Acquired hypothyroidism Unspecified hypothyroidism documented in this encounter Additional Health Concerns Assessment Noted Time PHQ-9 Depression Total Score: 2 05/13/20 24 9:24 AM EDT documented as of this encounter Care Teams Breakfast Cook Relationship Specialty Start Date End Date Rolanda Thakur MD [address] [place] [address] PCP - General Internal Medicine 09/19/22 documented as of this encounter
--- OUTSIDE RECORDS SUMMARY | 2025-06-12 09:16 | XMS_ITS | Encounter Summary ---
Author Organization [employer] Address [address] [place] [address] Care Team Providers Care Line Supply Name Role Phone Rolanda Thakur MD Primary Care Provider +1- [phone] Reason for Visit * Reason Onset Date Comments Med Refill 03/31/2025 Encounter Details Date Type Department Care Team ([facility] st Contact Info) Description 03/31/2025 Refill [facility] CHC MED & PEDS 505 [place] [address] Rolanda Thakur MD 505 [place] [address] Panic attack; Anxiety Social History Tobacco Use [...] documented as of this encounter Care Teams Line Supply Relationship Specialty Start Date End Date Rolanda Thakur MD [address] [place] [address] PCP - General Internal Medicine 09/19/22 documented as of this encounter
--- OUTSIDE RECORDS SUMMARY | 2025-06-12 09:16 | XMS_ITS | Encounter Summary ---
Author Organization [employer] Address [address] [place] [address] Care Team Providers Care Peripheral Vascular Tech Name Role Phone Rolanda Thakur MD Primary Care Provider +1- [phone] Encounter Details Date Type Department Care Team ([facility] st Contact Info) Description 01/22/2024 Orders Only [facility] CHC MED & PEDS 505 [place], [place] [phone] Rolanda Thakur MD 505 [place] [address] Benign essential hypertension Social History Tobacco Use [...] AM EDT Narrative 02/19/2024 12:38 PM EDT [address] [address] XRay Report Signed Patient: Angely Pineda MR#: [id number] : 1950 Acct:[id number] Age/Sex: 73 / F ADM Date: 02/19/24 Loc: [facility]NA[facility] Attending Dr: Migdalia PALMER Ordering Physician: Migdalia Loza Date of Service: 02/19/24 Procedure(s): XR toe RT min 2V Accession Number(s): [id number] cc: Migdalia Loza EXAMINATION: BILATERAL TOES CLINICAL [...] in OV> 02/19/24 1234 DD/ 1122 TD/TT: Flavor Maker: SS Procedure Note Donotuseinterpreter, Image - 02/19/[address] [address] XRay Report Signed Patient: Angely PinedaMR#: [id number] : 1950cct:[id number] Age/Sex: 73 / FADM Date: 02/19/24 Loc: JANAE Attending Dr: Migdalia Loza DIRECTOR OF RESTAURANT Ordering Physician: Migdalia Loza Date of Service: 02/19/24 Procedure(s): XR toe RT min 2V Accession Number(s): [id number] cc: Migdalia Loza DIRECTOR OF RESTAURANT EXAMINATION: BILATERAL TOES CLINICAL INFORMATION: A heavy [...] in OV> 02/19/24 1234 DD/ 1122 TD/TT: Flavor Maker: SS Migdalia Loza DIRECTOR OF RESTAURANT IMG XR PROCEDURES Edited Resul t - Final documented in this encounter Visit Diagnoses Diagnosis Benign essential hypertension Essential hypertension, benign documented in this encounter Care Teams Peripheral Vascular Tech Relationship Specialty Start Date End Date Rolanda Thakur MD [address] [place] [address] PCP - General Internal Medicine 09/19/22 documented as of this encounter
--- OUTSIDE RECORDS SUMMARY | 2025-06-12 09:16 | XMS_ITS | Encounter Summary ---
Author Organization [employer] Address [address] [place] [address] 7 [place] [address] Care Team Providers Care Temporary Data Entry Clerk Name Role Phone Rolanda Thakur MD Primary Care Provider +1- [phone] Reason for Visit * Reason Onset Date Comments Med Refill 12/26/2024 Encounter Details Date Type Department Care Team ([facility] st Contact Info) Description 12/26/2024 Refill [facility] CHC MED & PEDS 505 [place] [address] Maren Hough MD 505 [place] [address] Social History Tobacco Use Types Packs/Day Years [...] documented as of this encounter Care Teams Temporary Data Entry Clerk Relationship Specialty Start Date End Date Rolanda Thakur MD [address] [place] [address] PCP - General Internal Medicine 09/19/22 documented as of this encounter
--- OUTSIDE RECORDS SUMMARY | 2025-06-12 09:16 | XMS_ITS | Encounter Summary ---
Author Organization [employer] Address [address] [address] Care Team Providers Care Sausage Linker Name Role Phone Rolanda Thakur MD Primary Care Provider +1- [phone] Reason for Visit * Reason Onset Date Comments Med Refill 04/04/2024 Encounter Details Date Type Department Care Team (Late st Contact Info) Description 04/04/2024 Telephone [facility] 230 [place] [address] Rolanda Thakur MD 505 [place], [place] [phone] Med Refill Social History Tobacco Use Types [...] 5 mg tablets To be sent to: [facility] documented in this encounter Plan of Treatment Not on file documented as of this encounter Visit Diagnoses Diagnosis Anxiety- Primary Anxiety state, unspecified documented in this encounter Care Teams Sausage Linker Relationship Specialty Start Date End Date Rolanda Thakur MD 505 [place] [address] PCP - General Internal Medicine 09/19/22 documented as of this encounter
--- OUTSIDE RECORDS SUMMARY | 2025-06-12 09:16 | XMS_ITS | Encounter Summary ---
Author Organization [employer] Address 75 [facility] 7 [place] [address] Care Team Providers Care Heating And Cooling Systems Engineer Name Role Phone Rolanda Thakur MD Primary Care Provider +1 [phone] Encounter Details Date Type Department Care Team ([facility] Contact Info) Description 05/29/2025 Results Follow-Up [facility] 230 [place] [address] Kelsie Genao NP 230 [place] [address] Urinalysis Complete Social History Tobacco Use Types Packs/Day Years [...] this encounter Care Teams Heating And Cooling Systems Engineer Relationship Specialty Start Date End Date Rolanda Thakur MD [address] [place] [address] PCP - General Internal Medicine 09/19/22 documented as of this encounter
--- OUTSIDE RECORDS SUMMARY | 2025-06-12 09:16 | XMS_ITS | Encounter Summary ---
Author Organization [employer] Address [address] [place] [address] Care Team Providers Care Sales Support Rep Name Role Phone Rolanda Thakur MD Primary Care Provider +1- [phone] Reason for Visit * Reason Onset Date Comments Nurse Triage 06/04/2025 Encounter Details Date Type Department Care Team ([facility] st Contact Info) Description 06/04/[address] [facility] CHC MED & PEDS 505 [place] [address] Rolanda Thakur MD 505 [place] [address] Nurse Triage Social History Tobacco Use Types [...] encounter Miscellaneous Notes * Telephone Encounter - Uday Wu - 06/04/2025 12:29 PM EDT Symptom: Anxiety or Panic Attack Outcome: Schedule an urgent appointment (within 4 hours) or talk to a nurse or provider soon pt hasa cataract surgery at 1:15 today at 06/04 Reason: Anxiety keeps from normal daily activities (such as school or work) The caller accepted this outcome. Contact pt at [phone] documented in this encounter Plan of Treatment Not on file documented as of this encounter Visit Diagnoses Not on filedocumented in this encounter Additional Health Concerns Assessment Noted Time PHQ-9 Depression Total Score: 2 05/13/20 24 9:24 AM EDT documented as of this encounter Care Teams Sales Support Rep Relationship Specialty Start Date End Date Rolanda Thakur MD 505 [place] [address] PCP - General Internal Medicine 09/19/22 documented as of this encounter
--- OUTSIDE RECORDS SUMMARY | 2025-06-12 09:16 | XMS_ITS | Encounter Summary ---
Author Organization [employer] Address [address] [address] Care Team Providers Care Juke Box Mechanic Name Role Phone Rolanda Thakur MD Primary Care Provider +1- [phone] Reason for Visit * Reason Onset Date Comments Medication Question 04/04/2024 Encounter Details Date Type Department Care Team ([facility] st Contact Info) Description 04/04/2024 Telephone [facility]ICINE 230 [place] [address] Rolanda Thakur MD 505 [place], [place] [phone] Medication Question Social History Tobacco Use Types [...] on filedocumented in this encounter Care Teams Juke Box Mechanic Relationship Specialty Start Date End Date Rolanda Thakur MD [address] [place] [address] PCP - General Internal Medicine 09/19/22 documented as of this encounter
--- OUTSIDE RECORDS SUMMARY | 2025-06-12 09:16 | XMS_ITS | Encounter Summary ---
Author Organization [employer] Address [address] [place] [address] Care Team Providers Care Cafeteria Monitor Name Role Phone Rolanda Thakur MD Primary Care Provider +1- [phone] Reason for Visit * Reason Onset Date Comments Created In Error 04/29/2024 Encounter Details Date Type Department Care Team (Late st Contact Info) Description 04/29/2024 Telephone [facility] MEDICINE [address] [place] [phone] Rolanda Thakur MD 505 [place], [place] [phone] Created In Error Social History Tobacco Use [...] on filedocumented in this encounter Care Teams Cafeteria Monitor Relationship Specialty Start Date End Date Rolanda Thakur MD 505 [place] [address] PCP - General Internal Medicine 09/19/22 documented as of this encounter
--- OUTSIDE RECORDS SUMMARY | 2025-06-12 09:16 | XMS_ITS | Encounter Summary ---
Author Organization [employer] Address [address] [place] [address] Care Team Providers Care Cushion Filler Name Role Phone Rolanda Thakur MD Primary Care Provider +1- [phone] Encounter Details Date Type Department Care Team ([facility] st Contact Info) Description 05/02/[address] [facility] CHC MED & PEDS 505 [place], [place] [phone] Rolanda Thakur MD 505 [place] [address] Anxiety (Primary Dx) Social History Tobacco Use [...] unspecified documented in this encounter Care Teams Cushion Filler Relationship Specialty Start Date End Date Rolanda Thakur MD 505 [place] [address] PCP - General Internal Medicine 09/19/22 documented as of this encounter
--- OUTSIDE RECORDS SUMMARY | 2025-06-12 09:16 | XMS_ITS | Encounter Summary ---
Author Organization [employer] Address [address] [place] [address] Care Team Providers Care Hunter Trapper Name Role Phone Rolanda Thakur MD Primary Care Provider +1- [phone] Reason for Visit * Reason Onset Date Comments Medication Question 12/09/2022 Encounter Details Date Type Department Care Team ([facility] st Contact Info) Description 12/09/2022 Telephone [facility] CHC MED & PEDS 505 [place], [place] [phone] Rolanda Thakur MD 505 [place] [address] Medication Question Social History Tobacco Use Types [...] script (levothyroxine (Synthroid) 150 MCG tablet) it [id number] MCG and New script is it 50 mcg so pharmacy is requesting some clarification Please contact Pharmacy at [phone] documented in this encounter Plan of Treatment Not on file documented as of this encounter Visit Diagnoses Not on filedocumented in this encounter Care Teams Hunter Trapper Relationship Specialty Start Date End Date Rolanda Thakur MD [address] [place] [address] PCP - General Internal Medicine 09/19/22 documented as of this encounter
--- OUTSIDE RECORDS SUMMARY | 2025-06-12 09:16 | XMS_ITS | Clinical Summary ---
Author Organization [facility] Address [address] [place], [place] [address] Care Team Providers Care Corporate General Manager Name Role Phone Rahel Hough MD Primary Care Provider [phone] Allergies Active Allergy Reactions Criticality Noted Date [...] mg by mouth daily. 0 09/09/2020 Active [facility]-3 Fatty Acids (FISH OIL) 1000 MG CAPS [...] age to complete this topic Care Teams Corporate General Manager Relationship Specialty Start Date End Date Rahel Hough MD [address] [facility] [place] [address] PCP - General Internal Medicine 11/20/20
--- OUTSIDE RECORDS SUMMARY | 2025-06-12 09:16 | XMS_ITS | Encounter Summary ---
Author Organization [employer] Address [address] [place] [address] Care Team Providers Care Whiskey Filterer Name Role Phone Rolanda Thakur MD Primary Care Provider +1- [phone] Reason for Visit * Reason Onset Date Comments Med Refill 04/11/2025 Encounter Details Date Type Department Care Team ([facility] st Contact Info) Description 04/11/2025 Refill [facility] CHC MED & PEDS 505 [place] [address] Rolanda Thakur MD 505 [place] [address] Type 2 diabetes mellitus without complication, without long-term current use of insulin ([facility]) Social History [...] documented as of this encounter Care Teams Whiskey Filterer Relationship Specialty Start Date End Date Rolanda Thakur MD 505 [place] [address] PCP - General Internal Medicine 09/19/22 documented as of this encounter
--- OUTSIDE RECORDS SUMMARY | 2025-06-12 09:16 | XMS_ITS | Encounter Summary ---
Author Organization [employer] Address [address] [place] [address] Care Team Providers Care Polymer Tester Name Role Phone Rolanda Thakur MD Primary Care Provider +1- [phone] Reason for Visit * Reason Onset Date Comments Medication Question 12/08/2022 Encounter Details Date Type Department Care Team ([facility] st Contact Info) Description 12/08/2022 Telephone [facility] CHC MED & PEDS 505 [place], [place] [phone] Rolanda Thakur MD 505 [place] [address] Medication Question Social History Tobacco Use Types [...] on filedocumented in this encounter Care Teams Polymer Tester Relationship Specialty Start Date End Date Rolanda Thakur MD [address] [place] [address] PCP - General Internal Medicine 09/19/22 documented as of this encounter
--- OUTSIDE RECORDS SUMMARY | 2025-06-12 09:16 | XMS_ITS | Encounter Summary ---
Author Organization [employer] Address [address] [place] [address] Care Team Providers Care Rock Crushing Machine Operator Name Role Phone Rolanda Thakur MD Primary Care Provider +1- [phone] Reason for Visit * Reason Onset Date Comments Referral 06/13/2024 Encounter Details Date Type Department Care Team ([facility] st Contact Info) Description 06/13/2024 Telephone [facility]INE 230 [place] [address] Rolanda Thakur MD 505 [place], [place] [phone] Referral Social History Tobacco Use Types Packs/Day [...] documented as of this encounter Care Teams Rock Crushing Machine Operator Relationship Specialty Start Date End Date Rolanda Thakur MD [address] [place] [address] PCP - General Internal Medicine 09/19/22 documented as of this encounter
--- OUTSIDE RECORDS SUMMARY | 2025-06-12 09:16 | XMS_ITS | Encounter Summary ---
Author Organization [employer] Address [address] [place] [address] [place] [address] Care Team Providers Care Life Scientists Name Role Phone Rolanda Thakur MD Primary Care Provider [phone]- [phone] Encounter Details Date Type Department Care Team ([facility] Contact Info) Description 05/12/2025 Results Follow-Up [facility] CHC MED & PEDS 505 [place] [address] Rolanda Thakur MD 505 [place] [address] Culture, Urine, Routine Social History Tobacco Use [...] documented as of this encounter Care Teams Life Scientists Relationship Specialty Start Date End Date Rolanda Thakur MD [address] [place] [address] PCP - General Internal Medicine 09/19/22 documented as of this encounter
--- OUTSIDE RECORDS SUMMARY | 2025-06-12 09:16 | XMS_ITS | Encounter Summary ---
Author Organization [employer] Address [address] [address] Care Team Providers Care Industrial Court Magistrate Name Role Phone Rolanda Thakur MD Primary Care Provider +1- [phone] Reason for Visit * Reason Onset Date Comments Nurse Triage 04/04/2024 Encounter Details Date Type Department Care Team ([facility] st Contact Info) Description 04/04/2024 Telephone [facility] [address] [place] [address] Rolanda Thakur MD [address] [place], [place] [phone] Nurse Triage Social History Tobacco Use Types [...] pt. She states that she went to [facility] for Anxiety panic attacks on 03/30/24- [...] got treated horribly by the staff at [facility] and she will never go there again. [...] care coordinators so that they can get [facility] notes from 03/30/24 Ed visit into pt. Chart and any labs, EKG's etc.. into pt. Chart for visit on 04/05/24 at 315pm. Protocol Used: Anxiety and Panic Attack (Adult) Protocol-Based Disposition: Go to ED/[facility] Now (or to Office with PCP Approval)- [...] on filedocumented in this encounter Care Teams Industrial Court Magistrate Relationship Specialty Start Date End Date Rolanda Thakur MD [address] [place] [phone] PCP - General Internal Medicine 09/19/22 documented as of this encounter
--- OUTSIDE RECORDS SUMMARY | 2025-06-12 09:16 | XMS_ITS | Encounter Summary ---
Author Organization [employer] Address [address] [place] [address] [address], [place] [address] Care Team Providers Care Gis Software Engineer Name Role Phone Rolanda Thakur MD Primary Care Provider [phone]- [phone] Reason for Referral * Consultation (Routine) - Authorized Specialty Diagnoses / Procedures Referred By Contac t Referred To Contact Obstetrics and Gynecology Diagnoses Atrophic vaginitis Maren Hough MD [address] [place] [address] Phone: tel: fax: Referral ID Status Reason Start Date Expiration Date Visits Requested Visits Authorized [id number] Authorized Specialty Services Required 06/09/2026 1 1 Encounter Details Date Type Department Care Team ([facility] Contact Info) Description 06/09/2025 Orders Only [facility] CHC MED & PEDS [address] [place] [address] Maren Hough MD [address] [place] [address] Atrophic vaginitis (Primary Dx) Social History Tobacco Use Types [...] Access Q2 Not on file 07/06/2024 Comments No Sex and Gender Information Value Date Recorded Sex Assigned at Female 06/20/2022 10:30 AM EDT Legal Sex Female 10:30 AM EDT Gender Identity Female 06/20/2022 10:30 AM EDT Sexual Orientation Straight 06/20/2022 10 :30 AM EDT documented as of this encounter Plan of Treatment Scheduled Referrals Name Type Priority Associated Diagnoses Order Schedule Referral to Obstetrics / Gynecology Outpatient Referral Routine Atrophic vaginitis Expected: 06/09/2025 (Approximate), Expires: 06/09/2026 documented as of this encounter Visit Diagnoses Diagnosis Atrophic vaginitis- Primary Postmenopausal atrophic vaginitis documented in this encounter Additional Health Concerns Assessment Noted Time PHQ-9 Depression Total Score: 2 05/13/20 24 9:24 AM EDT documented as of this encounter Care Teams Gis Software Engineer Relationship Specialty Start Date End Date Rolanda Thakur MD [address] [place] [address] PCP - General Internal Medicine 09/19/22 documented as of this encounter
--- OUTSIDE RECORDS SUMMARY | 2025-06-12 09:16 | XMS_ITS | Encounter Summary ---
Author Organization [employer] Address [address] [place] [address] 7 [place] [address] Care Team Providers Care Insurance Office Manager Name Role Phone Rolanda Thakur MD Primary Care Provider +1- [phone] Encounter Details Date Type Department Care Team ([facility] Contact Info) Description 05/26/[address] [facility] CHC MED & PEDS [address] [place] [address] Rolanda Thakur MD 505 [place] [address] Frequent UTI (Primary Dx); Vaginal dryness; Acquired hypothyroidism Social History Tobacco Use Types [...] as of this encounter Visit Diagnoses Diagnosis Frequent UTI- Primary Urinary tract infection, site not specified Vaginal dryness Postmenopausal atrophic vaginitis Acquired hypothyroidism Unspecified hypothyroidism documented in this encounter Additional Health Concerns Assessment Noted Time PHQ-9 Depression Total Score: 2 05/13/20 24 9:24 AM EDT documented as of this encounter Care Teams Insurance Office Manager Relationship Specialty Start Date End Date Rolanda Thakur MD [address] [place] [address] PCP - General Internal Medicine 09/19/22 documented as of this encounter
--- OUTSIDE RECORDS SUMMARY | 2025-06-12 09:16 | XMS_ITS | Encounter Summary ---
Author Organization [employer] Address [address] [place] [address] 7 [place] [address] Care Team Providers Care Settlement Technician Name Role Phone Rolanda Thakur MD Primary Care Provider [phone] Encounter Details Date Type Department Care Team ([facility] st Contact Info) Description 11/20/2024 Orders Only [facility] CHC MED & PEDS [address] [place] [address] Rolanda Thakur MD [address] [place] [address] Type 2 diabetes mellitus without complication, without long-term current use of insulin ([facility]) (Primary Dx); UTI symptoms Social History Tobacco [...] complication, without long-term current use of insulin ([facility]) UTI symptoms CBC WITH AUTO DIFFERENTIAL Routine 11/23/2024 9:00 AM EDT Type 2 diabetes mellitus without complication, without long-term current use of insulin ([facility]) BASIC METABOLIC PANEL Routine 11/23/2024 9:00 AM EDT Type 2 diabetes mellitus without complication, without long-term current use of insulin ([facility]) documented in this encounter Results * Culture, Urine, Routine (11/23/2024 9:05 AM EDT) Urine Urine specimen obtained by clean catch procedure / Unknown 11/23/2024 9:05 AM EDT 11/23/2024 11:26 AM EDT Comment:[facility] - 11/24/2024 11:22 AM EDT Urine Culture Report Result Urine Culture 10,000 to 50,000 cfu/ml Urine Culture Mixed bacterial hailey characteristic of Urine Culture urogenital contamination. Specimen Source: Urine clean catch us Rolanda Thakur MD LAB MICROBIOLOGY - GENERAL ORDERABLES Final Result [facility] [address] [place] [phone] * (ABNORMAL) CBC auto differential (11/23/2024 9:00 AM EDT) White Blood Count 8.5 4.8 - 10.8 X10*3/uL [facility] Red Blood Count 4.27 4.20 - 5.50 X10*6/uL [facility] Hemoglobin 12.8 12.0 - 16.0 g/dl [facility] Hematocrit 37.0 37.0 - 47.0 % [facility] Mean Corpuscular Volume 86.7 80.0 - 98.0 fL [facility] Mean Corpuscular Hemoglobin 30.0 27.0 - 33.0 pg [facility] Mean Corpuscular HGB Conc 34.6 31.0 - 35.0 g/dl [facility] Red Cell Distribution Width 13.1 11.0 - 16.0 % [facility] Platelet Count 269 160 - 400 X10*3/uL [facility] Mean Platelet Volume 9.1(L) 9.4 - 12.3 fL [facility] Neutrophils Percent Auto 64.4 45 - 73 % [facility] Imm Gran Pct Auto 0.4 0.0 - 0.4 % [facility] Lymphocytes Percent Auto 23.8 20 - 40 % [facility] Monocytes Percent Auto 5.9 2 - 11 % [facility] Eosinophils Percent Auto 4.7(H) 0 - 4 % [facility] Basophils Percent Auto 0.8 0 - 2 % [facility] NRBC Pct Auto 0.0 0.0 - 0.2 /100WBC [facility] Neutrophils Absolute Auto 5.4 2.0 - 8.3 x10*3/uL [facility] Imm Gran Abs Auto 0.03 0.00 - 0.03 X10*3/uL [facility] Lymphocytes Absolute Auto 2.0 1.2 - 4.9 X10*3/uL [facility] Monocytes Absolute Auto 0.5 0.1 - 1.2 X10*3/uL [facility] Eosinophils Absolute Auto 0.4 0.0 - 0.4 X10*3/uL [facility] Basophils Absolute Auto 0.1 0.0 - 0.2 X10*3/uL [facility] NRBC Abs Auto 0.000 0.0 - 0.012 X10*3/uL [facility] Blood Venous blood specimen / Unknown 11/23/2024 9:00 AM EDT 11/23/2024 11:37 AM EDT us Rolanda Thakur MD LAB BLOOD ORDERABLES Final Result [facility] [address] [place] [phone] * (ABNORMAL) Basic Metabolic Panel (11/23/2024 9:00 AM EDT) Sodium 135 135 - 145 mmol/L [facility] Potassium 4.4 3.3 - 5.1 mmol/L [facility] Chloride 103 96 - 108 mmol/L [facility] Carbon Dioxide 24 22 - 29 mmol/L [facility] Anion Gap 12 12 - 20 [facility] Urea Nitrogen (BUN) 21(H) 9 - 16 mg/dL [facility] Creatinine, Serum 0.89 0.5 - 1.4 mg/dL [facility] Estimated Glomerular Filt Rate >60 [facility] Comment:Chronic Kidney Disea se: Estimated GFR < 60 mL/min/[id number] Kidney Disease: Estimated GFR < 15 mL/min/1.73m2 Glucose 161(H) 60 - 115 mg/dL [facility] Calcium 10.2 8.4 - 10.2 mg/dL [facility] Blood Venous blood specimen / Unknown 11/23/2024 9:00 AM EDT 11/23/2024 11:37 AM EDT Rolanda Thakur MD LAB BLOOD ORDERABLES Final Result [facility] [address] [place] [phone] documented in this encounter Visit Diagnoses Diagnosis Type 2 diabetes mellitus without complication, without long-term current use of insulin (HCC)- Primary UTI symptoms documented in this encounter Additional Health Concerns Assessment Noted Time PHQ-9 Depression Total Score: 2 05/13/20 24 9:24 AM EDT documented as of this encounter Care Teams Settlement Technician Relationship Specialty Start Date End Date Rolanda Thakur MD [address] [place] [phone] PCP - General Internal Medicine 09/19/22 documented as of this encounter
--- OUTSIDE RECORDS SUMMARY | 2025-06-12 09:16 | XMS_ITS | Encounter Summary ---
Author Organization [employer] Address [address] [place] [address] Care Team Providers Care Extractor Operator Helper Name Role Phone Rolanda Thakur MD Primary Care Provider [phone]- [phone] Reason for Visit * Reason Onset Date Comments Med Refill 03/20/2025 Encounter Details Date Type Department Care Team ([facility] st Contact Info) Description 03/20/2025 Refill [facility] CH[facility] MED & PEDS [address] [place] [address] Rolanda Thakur MD [address] [place] [address] Social History Tobacco Use Types Packs/Day Years [...] as of this encounter Care Teams Extractor Operator Helper Relationship Specialty Start Date End Date Rolanda Thakur MD [address] [place] [phone] PCP - General Internal Medicine 09/19/22 documented as of this encounter
--- OUTSIDE RECORDS SUMMARY | 2025-06-12 09:17 | XMS_ITS | Encounter Summary ---
Author Organization [employer] Address [address] [place] [address] Care Team Providers Care Glove Boarder Name Role Phone Rolanda Thakur MD Primary Care Provider +1- [phone] Reason for Visit * Reason Onset Date Comments Med Refill 12/26/2024 Encounter Details Date Type Department Care Team ([facility] st Contact Info) Description 12/26/[address] [facility] CHC MED & PEDS [address] [place] [address] Rolanda Thakur MD [address] [place] [address] Acquired hypothyroidism Social History Tobacco Use Types [...] documented as of this encounter Care Teams Glove Boarder Relationship Specialty Start Date End Date Rolanda Thakur MD [address] [place] [phone] PCP - General Internal Medicine 09/19/22 documented as of this encounter
--- OUTSIDE RECORDS SUMMARY | 2025-06-12 09:17 | XMS_ITS | Encounter Summary ---
Author Organization [employer] Address [address] [place] [address] 7 [place] [address] Care Team Providers Care Ice Plant Operator Name Role Phone Rolanda Thakur MD Primary Care Provider [phone] Encounter Details Date Type Department Care Team ([facility] st Contact Info) Description 09/23/2024 Orders Only [facility] CH[facility] MED & PEDS [address] [place] [address] Rolanda Thakur MD [address] [place] [address] Acquired hypothyroidism (Primary Dx); Benign essential hypertension [...] PM EST) Aldosterone 2 see note ng/dL [facility] Comment:Unable to flag abnor mal result(s), please refer to reference range(s) below:Adult Reference Ranges for Aldosterone, LC/MS/MS: Upright 8:00 - 10:00 am < or = 28 ng/dL Upright 4:00 - 6:00 pm < or = 21 ng/dL Supine 8:00 - 10:00 am 3 - 16 ng/dLTHIS TEST WAS PERFORMED AT:[employer] [id number] [place] [address]PISDZAGTHEO PEDERSEN MD,PHD Plasma Renin Activity 0.52 0.25 - 5.82 ng/mL/h [facility] Aldosterone/Renin Ratio 3.8 0.9 - 28.9 Ratio [facility] Comment:This test was develo ped and its analytical performancecharacteristics have been determined by [employer]) [place], [place]. It hasnot been cleared or approved by the U.S. Food and DrugAdministration. This assay has been validated pursuantto the CLIA regulations and is used for clinicalpurposes.THIS TEST WAS PERFORMED AT:[employer] [facility] [id number] [place] [address]QZEAAWMTHEO PEDERSEN MD,PHD Blood Venous blood specimen / Unknown 09/24/2024 1:40 PM EST 09/24/2024 4:21 PM EST Rolanda Thakur MD LAB BLOOD ORDERABLES Final Result [facility] [address] [place] [phone] * TSH W/Reflex to FT4 (09/24/2024 1:40 PM EST) TSH reflex Free T4 0.38 0.32 - 4.0 uIU/mL [facility] Blood Venous blood specimen / Unknown 09/24/2024 1:40 PM EST 09/24/2024 4:21 PM EST us Rolanda Thakur MD LAB BLOOD ORDERABLES Final Result Performing Organization Address [facility]/ZIP Co de Phone Number [facility] [address] [place] [phone] * (ABNORMAL) Basic Metabolic Panel, Fasting (09/24/2024 1:40 PM EST) Sodium 139 135 - 145 mmol/L [facility] Potassium 3.8 3.3 - 5.1 mmol/L [facility] Chloride 106 96 - 108 mmol/L [facility] Carbon Dioxide 22 22 - 29 mmol/L [facility] Anion Gap 15 12 - 20 [facility] Urea Nitrogen (BUN) 13 9 - 16 mg/dL [facility] Creatinine, Serum 0.94 0.5 - 1.4 mg/dL [facility] Estimated Glomerular Filt Rate 58 [facility] Comment:Chronic Kidney Disea se: Estimated GFR < 60 mL/min/[id number] Kidney Disease: Estimated GFR < 15 mL/min/1.73m2 Glucose Fasting 169(H) 60 - 99 mg/dL [facility] Comment:A fasting glucose of 126 mg/dl or greater on more than oneoccasion is considered diagnostic of diabetes. Calcium 9.9 8.4 - 10.2 mg/dL [facility] Blood Venous blood specimen / Unknown 09/24/2024 1:40 PM EST 09/24/2024 4:21 PM EST us Rolanda Thakur MD LAB BLOOD ORDERABLES Final Result Performing Organization Address City/[facility]/ZIP Co de Phone Number [facility] [address] [place] [phone] * (ABNORMAL) CBC auto differential (09/24/2024 1:40 PM EST) White Blood Count 7.0 4.8 - 10.8 X10*3/uL [facility] Red Blood Count 4.23 4.20 - 5.50 X10*6/uL [facility] Hemoglobin 12.6 12.0 - 16.0 g/dl [facility] Hematocrit 37.0 37.0 - 47.0 % [facility] Mean Corpuscular Volume 87.5 80.0 - 98.0 fL [facility] Mean Corpuscular Hemoglobin 29.8 27.0 - 33.0 pg [facility] Mean Corpuscular HGB Conc 34.1 31.0 - 35.0 g/dl [facility] Red Cell Distribution Width 12.8 11.0 - 16.0 % [facility] Platelet Count 251 160 - 400 X10*3/uL [facility] Mean Platelet Volume 9.5 9.4 - 12.3 fL [facility] Neutrophils Percent Auto 59.8 45 - 73 % [facility] Imm Gran Pct Auto 0.3 0.0 - 0.4 % [facility] Lymphocytes Percent Auto 26.1 20 - 40 % [facility] Monocytes Percent Auto 8.6 2 - 11 % [facility] Eosinophils Percent Auto 4.3(H) 0 - 4 % [facility] Basophils Percent Auto 0.9 0 - 2 % [facility] NRBC Pct Auto 0.0 0.0 - 0.2 /100WBC [facility] Neutrophils Absolute Auto 4.2 2.0 - 8.3 x10*3/uL [facility] Imm Gran Abs Auto 0.02 0.00 - 0.03 X10*3/uL [facility] Lymphocytes Absolute Auto 1.8 1.2 - 4.9 X10*3/uL [facility] Monocytes Absolute Auto 0.6 0.1 - 1.2 X10*3/uL [facility] Eosinophils Absolute Auto 0.3 0.0 - 0.4 X10*3/uL [facility] Basophils Absolute Auto 0.1 0.0 - 0.2 X10*3/uL [facility] NRBC Abs Auto 0.000 0.0 - 0.012 X10*3/uL [facility] Blood Venous blood specimen / Unknown 09/24/2024 1:40 PM EST 09/24/2024 4:21 PM EST Rolanda Thakur MD LAB BLOOD ORDERABLES Final Result [facility] [address] [place] [phone] documented in this encounter Visit Diagnoses Diagnosis Acquired hypothyroidism- Primary Unspecified hypothyroidism Benign essential hypertension Essential hypertension, benign documented in this encounter Additional Health Concerns Assessment Noted Time PHQ-9 Depression Total Score: 2 05/13/20 24 9:24 AM EDT documented as of this encounter Care Teams Ice Plant Operator Relationship Specialty Start Date End Date Rolanda Thakur MD [address] [place] [phone] PCP - General Internal Medicine 09/19/22 documented as of this encounter
--- OUTSIDE RECORDS SUMMARY | 2025-06-12 09:17 | XMS_ITS | Encounter Summary ---
Author Organization [employer] Address [address] [address] Care Team Providers Care Sales Operations Analyst Name Role Phone Rolanda Thakur MD Primary Care Provider +1- [phone] Reason for Visit * Reason Onset Date Comments FYI 10/11/2024 Encounter Details Date Type Department Care Team ([facility] st Contact Info) Description 10/11/2024 Telephone [facility] MEDICINE [address] [place] [address] Rolanda Thakur MD [address] [place], [place] [phone] FYI Social History Tobacco Use Types Packs/Day [...] as of this encounter Care Teams Sales Operations Analyst Relationship Specialty Start Date End Date Rolanda Thakur MD [address] [place] [phone] PCP - General Internal Medicine 09/19/22 documented as of this encounter
--- OUTSIDE RECORDS SUMMARY | 2025-06-12 09:17 | XMS_ITS | Encounter Summary ---
Author Organization [employer] Address [address] [address] Care Team Providers Care Process Control Specialist Name Role Phone Rolanda Thakur MD Primary Care Provider +1- [phone] Reason for Visit * Reason Onset Date Comments Med Refill 12/26/2024 Encounter Details Date Type Department Care Team (Late st Contact Info) Description 12/26/2024 Refill [facility] MEDICINE [address] [place] [address] Rolanda Thakur MD [address] [place], [place] [phone] Neck pain on left side Social History [...] documented as of this encounter Care Teams Process Control Specialist Relationship Specialty Start Date End Date Rolanda Thakur MD [address] [place] [phone] PCP - General Internal Medicine 09/19/22 documented as of this encounter
--- OUTSIDE RECORDS SUMMARY | 2025-06-12 09:17 | XMS_ITS | Encounter Summary ---
Author Organization [employer] Address [address] [place] [address] Care Team Providers Care Drip Molder Name Role Phone Rolanda Thakur MD Primary Care Provider +1- [phone] Reason for Visit * Reason Onset Date Comments Med Refill 12/26/2024 Encounter Details Date Type Department Care Team ([facility] st Contact Info) Description 12/26/2024 Refill [facility] CH[facility] MED & PEDS [address] [place] [address] Rolanda Thakur MD [address] [place] [address] Anxiety; Benign essential hypertension Social History Tobacco [...] documented as of this encounter Care Teams Drip Molder Relationship Specialty Start Date End Date Rolanda Thakur MD [address] [place] [phone] PCP - General Internal Medicine 09/19/22 documented as of this encounter
--- OUTSIDE RECORDS SUMMARY | 2025-06-12 09:17 | XMS_ITS | Encounter Summary ---
Author Organization [employer] Address [address] [place] [address] Care Team Providers Care Cnc Operator Name Role Phone Rolanda Thakur MD Primary Care Provider +1- [phone] Encounter Details Date Type Department Care Team ([facility] st Contact Info) Description 12/07/2023 Telephone [facility] MEDICINE [address] [place] [phone] Rolanda Thakur MD [address] [place] [address] Social History Tobacco Use Types Packs/Day Years [...] on filedocumented in this encounter Care Teams Cnc Operator Relationship Specialty Start Date End Date Rolanda Thakur MD [address] [place] [address] PCP - General Internal Medicine 09/19/22 documented as of this encounter
--- OUTSIDE RECORDS SUMMARY | 2025-06-12 09:17 | XMS_ITS | Clinical Summary ---
Author Organization [employer] Address [address] [place] [address] [place] [address] Care Team Providers Care Roller Name Role Phone Rolanda Thakur MD Primary Care Provider [phone] Allergies Active Allergy Reactions Criticality Noted Date [...] without long-term current use of insulin (HCC) Chew 4 tablets (16 g) if needed for low blood sugar. 50 tablet 12 03/06/20 24 Active glucose blood (OneTouch Ultra) test stripIndications: Type 2 diabetes mellitus without complication, without long-term current use of insulin (HCC) USE DIRECTED TO TEST BLOOD GLUCOSE TWICE [...] 9 each 3 12/07/19 25 Active Blood Glucose Monitoring Suppl (ONE TOUCH ULTRA 2) w/Device kitIndications:Ty pe 2 diabetes mellitus without complication, without long-term current use of insulin ([facility]) Use to test blood sugar 2 times daily 1 kit 12/27/19 25 Active cetirizine (ZyrTEC) 10 MG tablet TAKE 1 TABLET BY MOUTH DAILY 30 tablet 11 01/25/20 25 Active Continuous Glucose Geophysical Laboratory Director (Dexcom G7 Geophysical Laboratory Director) deviceIndications :Type 2 diabetes mellitus without complication, without long-term current use of insulin (HCC) USE DIRECTED 1 each 02/19/20 25 Active [...] without long-term current use of insulin (HCC) TAKE 1 TABLET BY MOUTH TWICE DAILY WITH MEALS 180 tablet 1 02/19/20 25 Active glipiZIDE (Glucotrol) 10 MG tablet Take 1 tablet (10 mg) by mouth before breakfast and before evening meal. 60 tablet 03/06/20 25 2025 Active glipiZIDE (Glucotrol) 10 MG tabletIndications :Type 2 diabetes mellitus without complication, without long-term current use of insulin (HCC) Take 1 tablet (10 mg) by mouth before breakfast and before evening meal. 60 tablet 03/20/20 25 2025 Active Blood Pressure kit USE TO CHECK BLOOD PRESSURE EVERY DAY 1 kit 05/27/20 25 Active FREESTYLE LITE test stripIndications: Type 2 diabetes mellitus without complication, without long-term current use of insulin (HCC) Use to test blood sugar 2-3 times daily 100 each 04/18/20 25 2025 Active Lancets miscIndications:T ype 2 diabetes mellitus without complication, without long-term current use of insulin (HCC) Use to test blood sugar 2-3 times daily 100 each 04/18/20 25 Active Alcohol Swabs 70 % padsIndications:T ype 2 diabetes mellitus without complication, without long-term current use of insulin (HCC) Use to test blood sugar 2-3 times daily 100 each 04/18/20 25 Active Blood Glucose Monitoring Suppl (FreeStyle Stacy Lite) w/Device kitIndications:Ty pe 2 diabetes mellitus without complication, without long-term current use of insulin (HCC) Use to test blood sugar 2-3 times daily 1 kit 04/18/20 25 Active Accu-Chek Softclix Lancets lancetsIndication s:Type 2 diabetes mellitus without complication, without long-term current use of insulin (HCC) USE TO CHECK BLOOD SUGAR 2 OR 3 TIMES A DAY 100 each 04/18/20 25 Active glucose blood (Accu-Chek Guide Test) test stripIndications: Type 2 diabetes mellitus without complication, without long-term current use of insulin (HCC) USE TO CHECK BLOOD SUGAR 2 OR 3 TIMES A DAY 100 each 04/18/20 25 Active Blood Glucose Monitoring Suppl (Accu-Chek Guide Me) w/Device kitIndications:Ty pe 2 diabetes mellitus without complication, without long-term current use of insulin (HCC) USE TO CHECK BLOOD SUGAR 2 OR 3 TIMES A DAY 1 kit 04/18/20 25 Active ascorbic acid (Vitamin C) 1000 MG tablet TAKE 1 TABLET BY MOUTH EVERY MORNING 90 tablet 05/08/20 25 Active D3-1000 25 MCG (1000 UT) capsuleIndication s:Vitamin D deficiency TAKE 1 CAPSULE BY MOUTH EVERY DAY 90 capsule 2 05/09/20 25 Active methenamine hippurate (Hiprex) 1 g tabletIndications :Frequent UTI Take 1 tablet (1 g) by mouth 2 times daily. 60 tablet 11 05/26/20 25 2025 Active clonazePAM (KlonoPIN) 0.5 MG tabletIndications :Panic attack,Anxiety TAKE 1 TABLET BY MOUTH EVERY DAY NEEDED FOR PANIC ATTACKS 10 tablet 06/03/20 25 Active cloNIDine (Catapres) 0.1 MG tabletIndications :Anxiety,Benign essential hypertension TAKE 1 TABLET(0.1 MG) BY MOUTH THREE TIMES DAILY 90 tablet 2 06/05/20 25 Active Estrogens Conjugated (Premarin) 0.625 MG/GM cream Insert 0.625 mg into the vagina 1 (one) time per week. 30 g 3 06/05/20 25 2025 Active Estradiol 0.01 % creamIndications: Frequent UTI,Vaginal dryness Insert 1 g into the vagina 3 (three) times a week. 42.5 g 3 06/06/20 25 Active Synthroid 125 MCG tabletIndications :Acquired hypothyroidism TAKE 1 TABLET BY MOUTH EVERY DAY 90 tablet 1 06/06/20 25 Active Estrogens Conjugated (Premarin) 0.625 MG/GM creamIndications: Frequent UTI,Vaginal dryness Insert 0.625 mg into the vagina 3 (three) times a week. 30 g 3 06/06/20 25 Active cloNIDine (Catapres) 0.1 MG tabletIndications :Anxiety,Benign essential hypertension TAKE 1 TABLET(0.1 MG) BY MOUTH THREE TIMES DAILY 90 tablet 2 12/27/19 25 2024 Discontinued Synthroid 125 MCG tabletIndications :Acquired hypothyroidism TAKE 1 TABLET BY MOUTH EVERY DAY 90 tablet 1 04/18/20 25 2024 Discontinued(R eorder (will not trigger notification to Pharmacy)) clonazePAM (KlonoPIN) 0.5 MG tabletIndications :Panic attack,Anxiety TAKE 1 TABLET BY MOUTH EVERY DAY NEEDED FOR PANIC ATTACKS 10 tablet 04/22/20 25 2024 Discontinued ciprofloxacin (Cipro) 500 MG tabletIndications :Recent urinary tract infection Take 1 tablet (500 mg) by mouth 2 times daily for 7 days. 14 tablet 05/09/20 25 2024 clonazePAM (KlonoPIN) 0.5 MG tabletIndications :Panic attack,Anxiety TAKE 1 TABLET BY MOUTH EVERY DAY NEEDED FOR PANIC ATTACKS 10 tablet 05/19/20 25 2024 Discontinued Estradiol 0.01 % creamIndications: Frequent UTI,Vaginal dryness Insert 1 g into the vagina 3 (three) times a week. 42.5 g 3 06/02/20 25 2024 Discontinued(R eorder (will not trigger [...] Plan: Augmentin BID x 10 days Nasal [place] Follow up if worsening or no improvement [...] intervention , Patient to reach out to [facility] team as needed, Patient to engage in OP therapy , and Patient to reach out to [facility] as needed Swelling of lip, tongue, and throat 05/10/2024 Assessment & Plan (05/22/2024 1:00 PM EDT): Patient reports episodes of swelling of exposure to different antigens, at this moment given recurrence and symptoms affecting patients daily, will strongly benefit of assessment from size marker to help elucidate etiology of symptoms. Peripheral [...] organization. Date Type Department Care Team Description 06/09/2025 Orders Only [facility] [address] [place] [address] Maren Hough MD Atrophic vaginitis (Primary Dx) 06/05/2025 11:15 AM EDT Office Visit [facility] [address] [place] [address] Maren Hough MD Atrophic vaginitis (Primary Dx); Type 2 diabetes mellitus with hyperglycemia, without long-term current use of insulin (HCC); Weakening of rectovaginal tissue 06/05/2025 Telephone [facility] [address] [place] [address] Rolanda Thakur MD Call Back Request; Medication Question 06/05/2025 Travel 06/05/2025 Refill [facility] [address] [place] [address] Rolanda Thakur MD Anxiety; Benign essential hypertension 06/04/2025 Telephone [facility] [address] [place] [address] Rolanda Thakur MD Nurse Triage 06/02/[address] [facility] [address] [place] [phone] Rolanda Thakur MD Nurse Triage 05/31/2025 10:00 AM EDT Office Visit [facility] [address] [place] [phone] Edward Bach MD Urinary urgency (Primary Dx) 05/31/2025 Refill [facility] [address] [place] [address] Rolanda Thakur MD Panic attack; Anxiety 05/31/2025 Travel 05/29/2025 Results Follow-Up [facility] [address] [place] [phone] Kelsie Genao NP Urinalysis Complete 05/29/2025 Results Follow-Up [address] [address] Kelsie Genao NP Culture, Urine, Routine 05/29/2025 Telephone [facility] [address] [place] [address] Rolanda Thakur MD 05/28/[address] [facility] [address] [place] [address] Kelsie Genao, CONCRETE SWIMMING POOL INSTALLER 05/28/[address] [facility] [address] [place] [phone] Rolanda Thakur MD 05/26/2025 Orders Only [facility] [address] [place] [address] Rolanda Thakur MD Frequent UTI (Primary Dx); Vaginal dryness; Acquired hypothyroidism 05/24/[address] [facility] [address] [place] [address] Kelsie Genao, CONCRETE SWIMMING POOL INSTALLER 05/22/2025 Refill [facility] [address] [place] [address] Rolanda Thakur MD 05/16/2025 Refill [facility] [address] [place] [address] Rolanda Thakur MD Panic attack; Anxiety 05/13/[address] [facility] [address] [place] [address] Rolanda Thakur MD 05/12/2025 Results Follow-Up [facility] [address] [place] [address] Rolanda Thakur MD Culture, Urine, Routine 05/10/2025 Orders Only GENERIC EXTERNAL DATA DEPARTMENT Provider, Generic External Data 05/08/2025 Refill [facility] [address] [place] [address] Rolanda Thakur MD Vitamin D deficiency 05/08/2025 Refill [facility] [address] [place] [address] Rolanda Thakur MD Recent urinary tract infection 05/07/2025 Refill [facility] [address] [place] [address] Rolanda Thakur MD 05/07/[address] [facility] [address] [place] [address] Rolanda Thakur MD 05/02/[address] [address] Rolanda Thakur MD Results 05/02/2025 Results Follow-Up [facility] [address] [place] [address] Ilsa Boyd RN Culture, Urine, Routine, Referral to Urology 05/02/2025 Telephone [facility] [address] [place] [address] Rolanda Thakur MD 05/01/2025 Orders Only [facility] [address] [place] [address] Rolanda Thakur MD Recent urinary tract infection (Primary Dx) 05/01/[address] [address] Rolanda Thakur MD Results 04/30/2025 Orders Only [facility] [address] [place] [address] Rolanda Thakur MD Recurrent UTI (Primary Dx) 04/30/2025 Results Follow-Up [facility] [address] [place] [address] Rolanda Thakur MD XR Hand 3+ Views Right, XR Hand 3+ Views Left 04/22/2025 3:40 PM EDT Office Visit [facility] [address] [place] [address] Rolanda Thakur MD Traumatic ecchymosis of left hand, initial encounter (Primary Dx); Right hand pain; Benign essential hypertension 04/22/2025 Travel 04/22/[address] [address] Rolanda Thakur MD call back / orders 04/22/2025 Results Follow-Up [facility] [address] [place] [address] PhalenMigdalia, WEB MERCHANDISER TSH W/Reflex to FT4, Urinalysis, Complete, with Reflex to Culture, Culture, Urine, Routine 04/21/2025 Refill [facility] [address] [place] [address] Rolanda Thakur MD Panic attack; Anxiety 04/18/2025 8:30 AM EDT Office Visit [facility] [address] [place] [address] Migdalia Loza FNP Urinary urgency (Primary Dx); Acquired hypothyroidism; Type 2 diabetes mellitus without complication, without long-term current use of insulin ([facility]) 04/18/[address] [facility] [address] [place] [address] Rolanda Thakur MD Acquired hypothyroidism; Type 2 diabetes mellitus without complication, without long-term current use of insulin ([facility]) 04/18/2025 Telephone [facility] [address] [place] [address] Migdalia Loza FNP Appointment Request 04/18/2025 Travel 04/18/2025 Orders Only [facility] [address] [place] [address] Migdalia Loza FNP Acquired hypothyroidism (Primary Dx); UTI symptoms; Type 2 diabetes mellitus without complication, without long-term current use of insulin ([facility]) 04/17/[address] [facility] [address] [place] [address] Rolanda Thakur MD Nurse Triage 04/17/2025 Telephone [facility] [address] [place] [address] Rolanda Thakur MD Med Refill 04/16/2025 Refill [facility] [address] [place] [address] Rolanda Thakur MD Acquired hypothyroidism 04/15/2025 Results Follow-Up [facility] [address] [place] [address] Kimberly Bronson RN Basic Metabolic Panel 04/14/2025 Orders Only [facility] [address] [place] [address] Rolanda Breaux MD Type 2 diabetes mellitus without complication, without long-term current use of insulin ([facility]) (Primary Dx); Recent urinary tract infection 04/12/2025 Orders Only GENERIC EXTERNAL DATA DEPARTMENT Provider, Generic External Data 04/11/2025 Refill [facility] [address] [place] [address] Rolanda Gutierrez MD Type 2 diabetes mellitus without complication, without long-term current use of insulin ([facility]) 03/31/2025 Refill [facility] [address] [place] [address] Rolanda Gutierrez MD Panic attack; Anxiety 03/31/2025 Refill [facility] [address] [place] [address] Rolanda Gutierrez MD Panic attack; Anxiety 03/24/2025 Results Follow-Up [facility] [address], [place] Vincenzo Sutton [phone] Vasques MD T-SPOT .TB 03/22/2025 Refill [facility] [address], [place] Vincenzo Arango-Rolanda Vasques MD 03/20/2025 Orders Only [facility] [address] [place] [address] Rolanda Vasques MD 03/20/2025 Refill [facility] [address] [place] [address] Rolanda Vasques MD 03/20/2025 Results Follow-Up [facility] [address], [place] Vincenzo Arango-Rolanda Vasques MD TSH W/Reflex to FT4, CBC auto differential 03/19/2025 Orders Only [facility] [address], [place] Vicnenzo Arango-Rolanda Vasques MD 03/19/2025 Telephone [facility] [address] [place] [address] Rolanda Thakur MD Appointment Request; Lab Orders 03/19/[address] [facility] [address] [place] [address] Rolanda Thakur MD PE APPT from Last 3 Months Immunizations Immunization Administration [...] Sign Reading Time Taken Comments Blood Pressure 175/78 06/05/2025 11:26 AM EDT Pulse 70 06/05/2025 11:26 AM EDT Temperature 36.4 C (97.6 F) 06/05/2025 11:26 AM EDT Respiratory Rate 18 05/31/2025 9:44 AM EDT Oxygen Saturation 98% 05/31/2025 9:44 AM EDT Inhaled Oxygen Concentration - - Weight 68.9 kg (152 lb) 05/31/2025 9:44 AM EDT Height 162.6 cm (5' 4 ) 04/22/2025 3:43 PM EDT Body Mass Index 26.09 04/22/2025 3:43 PM EDT Plan of Treatment [...] Screening 09/10/2025 09/10/2024 Eye Exam 09/26/2025 09/26/2023 Diabetes: Urine Protein Screening 05/10/2026 05/10/2025, 07/17/2024 Lipid Panel 05/10/2026 05/10/2025, 082 10/2024, 07/17/2024, Additional history exists Tobacco Screening 06/05/2026 06/05/2025 Mammogram 12/17/2026 12/17/2024, 11/20, 12/17/2024 Colorectal Cancer [...] Date/Time Associated Diagnosis Comments POCT GLUCOSE Routine 06/05/2025 11:28 AM EDT Type 2 diabetes mellitus with hyperglycemia, without long-term current use of insulin (HCC) AMB REFERRAL TO UROLOGY Routine 05/30/2025 Recurrent UTI URINALYSIS, COMPLETE Routine 05/28/2025 7:40 AM EDT Frequent UTI CULTURE, URINE, ROUTINE Routine 05/28/2025 7:40 AM EDT PROTEIN CREATININE RATIO, URINE Routine 05/10/2025 8:50 [...] current use of insulin ([facility]) Recent urinary tract infection CULTURE, URINE, [...] hyperglycemia, without long-term current use of insulin ([facility]) T-SPOT(R).TB Routine 03/20/2025 9:09 AM EDT [...] to Health Maintenance Results * POCT Glucose (06/05/2025 11:28 AM EDT) [facility] Glucose Blood, POC 195 60 - 200 mg/dL QC Media Lot # [id number] Lot# Expiration Date [id number] Blood Capillary blood specimen / Unknown 06/05/2025 11:28 AM EDT Maren Hough MD POINT OF CARE TEST ENTER/EDIT OR DERABLES Final Result * Referral to Urology (05/30/2025) us Rolanda Thakur MD OUTPATIENT REFERRAL ORDERAB LES Final Result * (ABNORMAL) Urinalysis Complete (05/28/2025 7:40 AM EDT) Only the most recent of2 resultswithin the time period is included. [facility] Color Urine Dark Yellow [facility] Appearance Urine Clear [facility] PH 6.0 5.0 - 9.0 [facility] Glucose Urine UA Negative Negative mg/dL [facility] Urine Blood Negative Negative [facility] Specific [place] - Urine 1.010 1.005 - 1.025 [facility] Urine Protein Negative Neg-Trace mg/dL [facility] Urine Ketones Negative Negative mg/dL [facility] Nitrite Urine Negative Negative [facility] Leukocyte Esterase Urine Moderate (2+)(A) Negative [facility] RBC Urine 0-2 0 - 2 /HPF [facility] Urine WBC 0-5 0 - 5 /HPF [facility] Urine Squamous Epithelial Cell 0-2 0 - 2 /HPF [facility] Urine Bacteria None Seen None Seen [facility] Hyaline Casts, Urine 0-2 0 - 2 /LPF [facility] Urine Urine specimen obtained by clean catch procedure / Unknown 05/28/2025 7:40 AM EDT 05/28/2025 10:14 AM EDT Kelsie White CONCRETE SW[employer]MING [employer] INSTALLER LAB URINE ORDERABLES Final Resu lt Performing Organization Address [facility] Co de Phone Number [facility] [address] [place] [address] [phone] * Culture, Urine, Routine (05/28/2025 7:40 AM EDT) Only the most recent of4 resultswithin the time period is included. Urine Urine specimen obtained by clean catch procedure / Unknown 05/28/2025 7:40 AM EDT 05/28/2025 10:14 AM EDT Comment:UACC Narrative [facility] - 05/29/2025 9:32 AM EDT Urine Culture Report Result Urine Culture 10,000 to 50,000 cfu/ml Urine Culture Mixed bacterial hailey characteristic of Urine Culture urogenital contamination. Specimen Source: Urine clean catch Kelsie White CONCRETE SW[employer]MING [employer] INSTALLER LAB MICROBIOLOGY - GENERAL ORDE RABLES Final Result Performing Organization Address [facility] Co de Phone Number [facility] [address] [place] [phone] * Protein Creatinine Ratio, Urine (05/10/2025 8:50 AM EDT) Protein, Total, Random Urine <7 <12 mg/dL [facility] Protein/Creatin ine Ratio, Ur TNP <0.2 [facility] Comment:Unable to calculate urine protein creatinine ratio due tolow creatinine or protein result. 05/10/2025 8:50 AM EDT 05/10/2025 11:44 AM EDT Generic External Data Provider LAB URINE ORDERAB LES Final Result Performing Organization Address City/[facility] Co de Phone Number [facility] [address] [place] [phone] * Albumin, Random Urine W/Creatinine (05/10/2025 8:50 AM EDT) Creatinine, Urine 85.42 mg/dL [facility] Microalbumin Urine 12.0 mg/L [facility] Microalbum Creatinine Ratio Ur 14.0 <30 ug/mg cr [facility] Comment:Albumin/Creatinine R atio Reference Ranges: Normal: < 30 ug/mg creatinine Microalbuminuria: 30 - 300 ug/mg creatinineClinical Albuminuria: > 300 ug/mg creatinine 05/10/2025 8:50 AM EDT 05/10/2025 11:44 AM EDT Generic External Data Provider LAB URINE ORDERAB LES Final Result Performing Organization Address [facility] Co de Phone Number [facility] [address] [place] [phone] * TSH with Reflex to Free T4 (05/10/2025 7:54 AM EDT) Only the most recent of4 resultswithin the time period is included. TSH reflex Free T4 2.82 0.32 - 4.0 uIU/mL [facility] 05/10/2025 7:54 AM EDT 05/10/2025 10:59 AM EDT us Generic External Data Provider LAB BLOOD ORDERAB LES Final Result [facility] [address] [place] [address] [phone] * (ABNORMAL) CBC auto differential (05/10/2025 7:54 AM EDT) Only the most recent of2 resultswithin the time period is included. White Blood Count 7.0 4.8 - 10.8 X10*3/uL [facility] Red Blood Count 4.07(L) 4.20 - 5.50 X10*6/uL [facility] Hemoglobin 12.2 12.0 - 16.0 g/dl [facility] Hematocrit 35.5(L) 37.0 - 47.0 % [facility] Mean Corpuscular Volume 87.2 80.0 - 98.0 fL [facility] Mean Corpuscular Hemoglobin 30.0 27.0 - 33.0 pg [facility] Mean Corpuscular HGB Conc 34.4 31.0 - 35.0 g/dl [facility] Red Cell Distribution Width 12.6 11.0 - 16.0 % [facility] Platelet Count 199 160 - 400 X10*3/uL [facility] Mean Platelet Volume 9.7 9.4 - 12.3 fL [facility] Neutrophils Percent Auto 48.2 45 - 73 % [facility] Imm Gran Pct Auto 0.1 0.0 - 0.4 % [facility] Lymphocytes Percent Auto 31.2 20 - 40 % [facility] Monocytes Percent Auto 8.1 2 - 11 % [facility] Eosinophils Percent Auto 11.3(H) 0 - 4 % [facility] Basophils Percent Auto 1.1 0 - 2 % [facility] NRBC Pct Auto 0.0 0.0 - 0.2 /100WBC [facility] Neutrophils Absolute Auto 3.4 2.0 - 8.3 x10*3/uL [facility] Imm Gran Abs Auto 0.01 0.00 - 0.03 X10*3/uL [facility] Lymphocytes Absolute Auto 2.2 1.2 - 4.9 X10*3/uL [facility] Monocytes Absolute Auto 0.6 0.1 - 1.2 X10*3/uL [facility] Eosinophils Absolute Auto 0.8(H) 0.0 - 0.4 X10*3/uL [facility] Basophils Absolute Auto 0.1 0.0 - 0.2 X10*3/uL [facility] NRBC Abs Auto 0.000 0.0 - 0.012 X10*3/uL [facility] 05/10/2025 7:54 AM EDT 05/10/2025 10:59 AM EDT us Generic External Data Provider LAB BLOOD ORDERAB LES Final Result Performing Organization Address [facility]/ZIP Co de Phone Number [facility] [address] [place] [phone] * (ABNORMAL) Hemoglobin A1c (05/10/2025 7:54 AM EDT) Hemoglobin A1c 7.0(H) <6.0 % [facility] Comment:Hemoglobin A1C Refer ence Range Adults: 4.8 - 6.0 % Non diabetic: < 6.0 % Goal: < 7.0 %Additional Action Suggested: > 8.0 %Note: Hemoglobin A1c results are invalid for patients with abnormal amounts of HbF. Blood transfusions may impact the HbA1c concentration in the patient sample. Estimated Average Glucose 154 mg/dL [facility] Comment:eAG = Estimated ave rage glucose which is %A1C expressed asaverage glucose, using the formula of the [id number]-[id number] Glucose study (ADAG), Diabetes Care, Vol.31,#8,Mar. 2007 05/10/2025 7:54 AM EDT 05/10/2025 10:59 AM EDT us Generic External Data Provider LAB BLOOD ORDERAB LES Final Result Performing Organization Address [facility]/ZIP Co de Phone Number [facility] [address] [place] [phone] [phone] * (ABNORMAL) Lipid Panel, Standard (05/10/2025 7:54 AM EDT) Only the most recent of2 resultswithin the time period is included. Triglycerides 70 <150 mg/dL [facility] Comment:Desirable Triglyceri de: less than 150 mg/dLBorderline High Triglyceride 150-199 mg/dLHigh Triglyceride: 200-499 mg/dLVery High Triglyceride: greater than or equal to 5OO mg/dL Cholesterol 177 <200 mg/dL [facility] Comment:Desirable Cholestero l: less than 200 mg/dLBorderline High Cholesterol: 200-239 mg/dLHigh Cholesterol: greater than 239 mg/dL LDL Cholesterol Calculated 103(H) <100 mg/dL [facility] Comment:Desirable LDL: less than 100 mg/dLNear Optimal/Above Optimal LDL: 110- 129 mg/dLBorderline High LDL: 130-159 mg/dLHigh LDL: 160-189 mg/dLVery High LDL: greater than or equal to 190 mg/dL HDL Cholesterol 60 >40 mg/dL [facility] Comment:Desirable HDL: great er than 40 mg/dL Note: This HDL assay may give artificially low results in patients with liver disease. 05/10/2025 7:54 AM EDT 05/10/2025 10:59 AM EDT us Generic External Data Provider LAB BLOOD ORDERAB LES Final Result [facility] [address] [place] [address] [phone] * (ABNORMAL) Comprehensive Metabolic Panel (05/10/2025 7:54 AM EDT) Sodium 137 135 - 145 mmol/L [facility] Potassium 4.1 3.3 - 5.1 mmol/L [facility] Chloride 108 96 - 108 mmol/L [facility] Carbon Dioxide 22 22 - 29 mmol/L [facility] Anion Gap 11(L) 12 - 20 [facility] Urea Nitrogen (BUN) 25(H) 9 - 16 mg/dL [facility] Creatinine, Serum 1.12 0.5 - 1.4 mg/dL [facility] Estimated Glomerular Filt Rate 48 [facility] Comment:Chronic Kidney Disea se: Estimated GFR < 60 mL/min/1.83j4Orfqao Kidney Disease: Estimated GFR < 15 mL/min/1.73m2 Glucose 124(H) 60 - 115 mg/dL [facility] Calcium 9.7 8.4 - 10.2 mg/dL [facility] Bilirubin, Total 0.5 0.0 - 1.0 mg/dL [facility] Aspartate Amino Transferase 24 5 - 31 U/L [facility] Alanine Aminotransferase 14 0 - 31 U/L [facility] Total Protein 6.6 6.5 - 8.0 g/dL [facility] Albumin Level 4.2 3.5 - 5.0 g/dL [facility] Alkaline Phosphatase 63 39 - 117 U/L [facility] 05/10/2025 7:54 AM EDT 05/10/2025 10:59 AM EDT us Generic External Data Provider LAB BLOOD ORDERAB LES Final Result Performing Organization Address City/State/[facility] Co de Phone Number [facility] [address] [place] [address] [phone] * XR Hand 3+ Views Right (04/30/2025 8:55 AM EDT) Anatomical Region Laterality Modality Upper Extremities, Hand Right Radiogra phic Imaging 04/30/2025 8:55 AM EDT Narrative 04/30/2025 9:20 AM EDT [facility] Adult Primary Care [address] [place] [address] [place] [address] XRay Report Signed Patient: Angely Pineda MR#: [id number] : 1950 Acct:[id number] Age/Sex: 74 / F ADM Date: 04/30/25 Loc: JAIME.HMGCX Attending Dr: Rolanda Thakur MD Ordering Physician: Rolanda Thakur MD Date of Service: 04/30/25 Procedure(s): XR hand RT min 3V Accession Number(s): [id number] cc: Rolanda Thakur MD Reason for Exam: [...] Jesus Shore MD 04/30/2025 09:18 AM EDT RP Dictated By: Jesus Shore MD Signed By: <Electronically signed by Jesus Shore MD in OV> 04/30/2518 DD/ 0855 TD/TT: 04/30/25 0900 Electronic News Gathering Editor: Procedure Note Donotuseinterpreter, Image - 04/30/2025 [facility] Adult Primary Care [facility] [place] [address] XRay Report Signed Patient: Angely Pineda#: [id number] : 1950cct:[id number] Age/Sex: 74 / FADM Date: 04/30/25 Loc: .HMGCX Attending Dr: Rolanda Thakur MD Ordering Physician: Rolanda Thakur MD Date of Service: 04/30/25 Procedure(s): XR hand RT min 3V Accession Number(s): [id number] cc: Rolanda Thakur MD Reason for Exam: [...] in OV> 04/30/25917 DD/ 4 TD/TT: 04/30/25899 Electronic News Gathering Editor: Rolanda Thakur MD IMG XR PROCEDURES Final Res ult * XR Hand 3+ Views Left (04/30/2025 8:55 AM EDT) Anatomical Region Laterality Modality Upper Extremities, Hand Left Radiogra phic Imaging 04/30/2025 8:55 AM EDT Narrative 04/30/2025 9:19 AM EDT [facility] Adult Primary Care [address] [place] [address] [place] [address] XRay Report Signed Patient: Angely Pineda MR#: [id number] : 1950 Acct:[id number] Age/Sex: 74 / F ADM Date: 04/30/25 Loc: HO.HMGCX Attending Dr: Rolanda Thakur MD Ordering Physician: Rolanda Thakur MD Date of Service: 04/30/25 Procedure(s): XR hand LT min 3V Accession Number(s): [id number] cc: Rolanda Thakur MD Reason for Exam: [...] in OV> 04/30/25915 DD/ 4 TD/TT: 04/30/25899 Electronic News Gathering Editor: Procedure Note Donotanaiinterpreter, Image - 04/30/2025 [facility] Primary Care [facility] [place] [address] XRay Report Signed Patient: Angely PinedaMR#: [id number] : 1950cct:[id number] Age/Sex: 74 / FADM Date: 04/30/25 Loc: .HMGCX Attending Dr: Rolanda Thakur MD Ordering Physician: Rolanda Thakur MD Date of Service: 04/30/25 Procedure(s): XR hand LT min 3V Accession Number(s): [id number] cc: Rolanda Thakur MD Reason for Exam: [...] in OV> 04/30/25915 DD/ 4 TD/TT: 04/30/25899 Electronic News Gathering Editor: us Rolanda Thakur MD IMG XR PROCEDURES Final Res ult * (ABNORMAL) Urinalysis, Complete, with Reflex to Culture (04/30/2025 8:37 AM EDT) Only the most recent of2 resultswithin the time period is included. Color Urine Dark Yellow [facility] Appearance Urine Clear [facility] PH 6.5 5.0 - 9.0 [facility] Glucose Urine UA Negative Negative mg/dL [facility] Urine Blood Negative Negative [facility] Specific [place] - Urine 1.010 1.005 - 1.025 [facility] Urine Protein Negative Neg-Trace mg/dL [facility] Urine Ketones Negative Negative mg/dL [facility] Nitrite Urine Negative Negative [facility] Leukocyte Esterase Urine Small (1+)(A) Negative [facility] RBC Urine 0-2 0 - 2 /HPF [facility] Urine WBC 0-5 0 - 5 /HPF [facility] Urine Squamous Epithelial Cell 0-2 0 - 2 /HPF [facility] Urine Bacteria None Seen None Seen [facility] Hyaline Casts, Urine 0-2 0 - 2 /LPF [facility] Urine 04/30/2025 8:37 AM EDT 04/30/2025 1:12 PM EDT Narrative [facility] - 04/30/2025 2:16 PM EDT Urine, Clean Catch us Rolanda Thakur MD LAB URINE ORDERABLES Final Result [facility] [address] [place] [phone] * (ABNORMAL) Basic Metabolic Panel (04/12/2025 10:26 AM EDT) Sodium 136 135 - 145 mmol/L [facility] Potassium 5.0 3.3 - 5.1 mmol/L [facility] Chloride 106 96 - 108 mmol/L [facility] Carbon Dioxide 23 22 - 29 mmol/L [facility] Anion Gap 12 12 - 20 [facility] Urea Nitrogen (BUN) 22(H) 9 - 16 mg/dL [facility] Creatinine, Serum 0.95 0.5 - 1.4 mg/dL [facility] Estimated Glomerular Filt Rate 58 [facility] Comment:Chronic Kidney Disea se: Estimated GFR < 60 mL/min/1.01i5Lqepvi Kidney Disease: Estimated GFR < 15 mL/min/1.73m2 Glucose 147(H) 60 - 115 mg/dL [facility] Calcium 9.7 8.4 - 10.2 mg/dL [facility] Blood Venous blood specimen / Unknown 04/12/2025 10:26 AM EDT 04/12/2025 11:02 AM EDT [facility] LAB BLOOD ORDERABLES Final Re sult [facility] [address] [place] [address] [phone] * T-SPOT??.TB (03/20/2025 9:09 AM EDT) Only the most recent of2 resultswithin the time period is included. Pathologist [facility] T-Spot. TB Negative Negative [facility] [employer] Comment: A negative test result does not [...] Spot Count Corrected For Neg Control 1 [facility] [employer] Panel B Spot Count Corrected For Neg Control 1 [facility] Negative Control Passed [facility] Positive Control Passed [facility] Comment: For additional information, please refer to http://education.ListMinut/faq/TWZ622 (This link is being provided for informational/ educational purposes only.) 03/20/2025 9:09 AM EDT 03/20/2025 9:11 AM EDT Rolanda Thakur MD LAB BLOOD ORDERABLES Final Result [address], [place] [address] [facility]/[place] [address] [place] [phone] * Slide Review (03/19/2025 3:13 PM EDT) Slide Review VERIFIED [facility] 03/19/2025 3:13 PM EDT 03/19/2025 5:56 PM EDT Rolanda Thakur MD LAB BLOOD ORDERABLES Final Result [facility] [address] [place] [phone] * Hm Mammography (12/17/2024 8:40 AM EDT) Anatomical Region Laterality Modality Other us Historical Provider HEALTH MAINTENANCE Final Result * Cologuard?? colon cancer screening (08/09/2024 8:30 AM EST) Cologuard Result Negative Negative 08/18/20 11:52 PM EST [facility] (CLIA #:[id number]) Comment: NEGATIVE TEST RESULT. A negative Cologuard [...] (Dioni Kelly al, N Engl J Med 2014;370(14):9362-7732) The normal value (reference range) for this assay is negative. COLOGUARD RE-SCREENING RECOMMENDATION: Periodic colorectal cancer screening is an important part of preventive healthcare for asymptomatic individuals at average risk for colorectal cancer. Following a negative Cologuard result, the [place] [employer] Society and U.S. Multi-Society Task Force screening guidelines recommend a Cologuard re-screening interval of 3 years. References: [place] [employer] Guideline for Colorectal Cancer Screening: https://www.cancer.org/cancer/wghux-oyxqrx-lsfkqd/agmslksdr-rmdsropsv-vdsebrx/ac s-rec ommendations.html.; Santiago DK, Ileana CR, Emery LalaK, Colorectal Cancer Screening: Recommendations for Physicians and Patients from the U.S. Multi-Society Task Force on Colorectal Cancer Screening , Am J Gastroenterology 2017; 112:0452-0056. TEST DESCRIPTION: Composite algorithmic analysis of stool [...] (Dioni Kelly al, N Engl J Med 2014;370(14):6712-0314.) Cologuard may produce a false negative or false positive result (no colorectal cancer or precancerous polyp present at colonoscopy follow up). A negative Cologuard test result does not guarantee the absence of CRC or advanced adenoma (pre-cancer). The current Cologuard screening interval is every 3 years. ([place] [employer] Society and U.S. Multi-Society Task Force). Cologuard performance data in a 10,000 patient pivotal study using colonoscopy as the reference method can be accessed at the following location: www.[employer].GoCrossCampus/results. Additional description of the Cologuard test process, warnings and precautions can be found at www.[employer].GoCrossCampus. Stool specimen (specimen) 08/09/2024 8:30 AM EST 08/10/2024 2:47 PM EST us Rolanda Thakur MD LAB MOLECULAR DIAGNOSTICS O RDERABLES Final Result Performing Organization Address [facility] Co de Phone Number [facility] (CLIA #:[id number]) [address] [place] [address], * Hepatitis C Antibody with Reflex to HCV, RNA, Quantitative, Real-Time PCR (07/17/2024 3:20 PM EST) Hepatitis C Antibody Nonreactive Nonreactive [facility] Comment:Antibodies to HCV no t detected; does not exclude early acuteHCV infection. Blood Venous blood specimen / Unknown 07/17/2024 3:20 PM EST 07/17/2024 5:23 PM EST Rolanda Thakur MD LAB BLOOD ORDERABLES Final Result Performing Organization Address City/[facility] Co de Phone Number [facility] [address] [place] [address] [phone] from Last 3 Months or Most Recently Relevant to Health Maintenance Insurance Care Teams Roller Relationship Specialty Start Date End Date Rolanda Thakur MD [address] [place] [phone] PCP - General Internal Medicine 09/19/22
--- OUTSIDE RECORDS SUMMARY | 2025-06-12 09:17 | XMS_ITS | Encounter Summary ---
Author Organization [employer] Address [address] [address] Care Team Providers Care Special Effects Artist Name Role Phone Rolanda Thakur MD Primary Care Provider [phone] Reason for Visit * Reason Onset Date Comments Nurse Triage 09/24/2024 Encounter Details Date Type Department Care Team ([facility] st Contact Info) Description 09/24/2024 Telephone [facility] MEDICINE [address] [place] [address] Rolanda Thakur MD [address] [place], [place] [phone] Nurse Triage Social History Tobacco Use Types [...] WIC for today as no appts in [facility]. Pt states gets panic attacks if has to wait . Pt advised unfortunately no appts in [facility]> Unable to schedule ahead for WIC. Pt states will seek [facility] Walk IN clinic on [facility] in [place]. Will send to team as FYI to [...] acuity questions The caller accepted this outcome. [phone] documented in this encounter Plan of Treatment Not on file documented as of this encounter Visit Diagnoses Not on filedocumented in this encounter Additional Health Concerns Assessment Noted Time PHQ-9 Depression Total Score: 2 05/13/20 24 9:24 AM EDT documented as of this encounter Care Teams Special Effects Artist Relationship Specialty Start Date End Date Rolanda Thakur MD [address] [place] [address] PCP - General Internal Medicine 09/19/22 documented as of this encounter
--- OUTSIDE RECORDS SUMMARY | 2025-06-12 09:17 | XMS_ITS | Encounter Summary ---
Author Organization [employer] Address [address] [place] [address] Care Team Providers Care Hostel Manager Name Role Phone Rolanda Thakur MD Primary Care Provider [phone] Encounter Details Date Type Department Care Team ([facility] st Contact Info) Description 12/07/2023 Telephone [facility] MEDICINE [address] [place] [address] [phone] Rolanda Thakur MD [address] [place] [address] Social History Tobacco Use Types Packs/Day Years [...] on filedocumented in this encounter Care Teams Hostel Manager Relationship Specialty Start Date End Date Rolanda Thakur MD [address] [place] [address] PCP - General Internal Medicine 09/19/22 documented as of this encounter
--- OUTSIDE RECORDS SUMMARY | 2025-06-12 09:17 | XMS_ITS | Encounter Summary ---
Author Organization [employer] Address [address] [place] [address] [address] [place] [address] Care Team Providers Care Magazine Hand Name Role Phone Rolanda Thakur MD Primary Care Provider [phone] Reason for Referral * Consultation (Routine) - Closed Specialty Diagnoses / Procedures Referred By Freddy meadows Referred To Contact Neurology Diagnoses Other polyneuropathy Rolanda Thakur MD [address] [place] [address] Phone: tel: fax: [facility] Neurology [address] [place], [place] Phone: tel: fax: Referral ID Status Reason Start Date Expiration Date V isits Requested Visits Authorized [id number] Closed Specialty Services Required 11/22/2023 11/21/2024 1 1 * Consultation (Routine) - Closed Specialty Diagnoses / Procedures Referred By Freddy meadows Referred To Contact Physiatry Diagnoses Other polyneuropathy Rolanda Thakur MD [address] [place] [address] Phone: tel: fax: Referral ID Status Reason Start Date Expiration Date V isits Requested Visits Authorized [id number] Closed Specialty Services Required 11/17/2023 11/16/2024 1 1 Encounter Details Date Type Department Care Team ([facility] st Contact Info) Description 11/16/2023 Orders Only [facility] MED & PEDS [address] [place] [address] Rolanda Thakur MD [address] [place] [address] Other polyneuropathy (Primary Dx) Social History Tobacco [...] Primary documented in this encounter Care Teams Magazine Hand Relationship Specialty Start Date End Date Rolanda Thakur MD [address] [place] [address] PCP - General Internal Medicine 09/19/22 documented as of this encounter
--- OUTSIDE RECORDS SUMMARY | 2025-06-12 09:17 | XMS_ITS | Encounter Summary ---
Author Organization [employer] Address [address] [place] [address] Care Team Providers Care Fitness Worker Name Role Phone Rolanda Thakur MD Primary Care Provider [phone] Encounter Details Date Type Department Care Team ([facility] st Contact Info) Description 03/28/2024 Orders Only [facility] MED & PEDS [address] [place], [place] [phone] Karen Alcantar MD [address] [place] [address] Social History Tobacco Use Types Packs/Day Years [...] on filedocumented in this encounter Care Teams Fitness Worker Relationship Specialty Start Date End Date Rolanda Thakur MD [address] [place] [address] PCP - General Internal Medicine 09/19/22 documented as of this encounter
--- OUTSIDE RECORDS SUMMARY | 2025-06-12 09:17 | XMS_ITS | Encounter Summary ---
Author Organization [employer] Address [address] [place] [address] Care Team Providers Care Sewing Machine Tester Name Role Phone Rolanda Thakur MD Primary Care Provider [phone] Reason for Visit * Reason Onset Date Comments Call Back Request 11/17/2023 Encounter Details Date Type Department Care Team ([facility] st Contact Info) Description 11/17/2023 Telephone [facility] MEDICINE [address] [place] [address] Rolanda Thakur MD [address] [place], [place] [phone] Call Back Request Social History Tobacco Use [...] Message sent to PCP for review through [employer] portal * Telephone Encounter - Jenny Neff - 11/17/2023 8:06 AM EDT Tc from pt requesting a call back pt stated needs more information and clarifications 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 Please contact pt. documented in this encounter Plan of Treatment Not on file documented as of this encounter Visit Diagnoses Not on filedocumented in this encounter Care Teams Sewing Machine Tester Relationship Specialty Start Date End Date Rolanda Thakur MD [address] [place] [address] PCP - General Internal Medicine 09/19/22 documented as of this encounter
--- OUTSIDE RECORDS SUMMARY | 2025-06-12 09:17 | XMS_ITS | Encounter Summary ---
Author Organization [employer] Address [address] [address] Care Team Providers Care Business Development Manager Name Role Phone Rolanda Thakur MD Primary Care Provider [phone] Reason for Visit * Reason Onset Date Comments Med Refill 12/26/2024 Encounter Details Date Type Department Care Team (Late st Contact Info) Description 12/26/2024 Refill [facility] MEDICINE [address] [place] [address] Rolanda Thakur MD [address] [place] [address] Social History Tobacco Use Types Packs/Day Years [...] documented as of this encounter Care Teams Business Development Manager Relationship Specialty Start Date End Date Rolanda Thakur MD [address] [place] [address] PCP - General Internal Medicine 09/19/22 documented as of this encounter
--- OUTSIDE RECORDS SUMMARY | 2025-06-12 09:17 | XMS_ITS | Encounter Summary ---
Author Organization [employer] Address [address] [address] Care Team Providers Care Mold Washer Name Role Phone Rolanda Thakur MD Primary Care Provider [phone] Reason for Visit * Reason Onset Date Comments Nurse Triage 12/12/2023 Encounter Details Date Type Department Care Team ([facility] st Contact Info) Description 12/12/2023 Telephone [facility] MEDICINE [address] [place] [address] Rolanda Thakur MD [address] [place], [place] [phone] Nurse Triage Social History Tobacco Use Types [...] from pt requesting to speak to PCP stucco laborerregional account manager in regards to scheduled sick visit tmr, states was advised to contact PCP before scheduled appt to see how pt is doing, pt stated they still has a severe cough. Rubber Moulding Machine Operator did advised appt is still expected. Pt is scheduled tmr 12/15/23 for ( chest congestion, cough , yellow nasal drainage. ) Please contact at [phone] * Telephone Encounter - Viktoria Schultz RN [...] point. Pt is advised to come to [facility] today to be seen since open till 8pm. PT is not sure if will be able to do that. Rubber Moulding Machine Operator contacted Haylie Barrientos [facility] and asked if would be possible to schedule Pt at [facility] 12/15/23 340pm apt which Pt [...] on filedocumented in this encounter Care Teams Mold Washer Relationship Specialty Start Date End Date Rolanda Thakur MD [address] [place] [address] PCP - General Internal Medicine 09/19/22 documented as of this encounter
--- OUTSIDE RECORDS SUMMARY | 2025-06-12 09:17 | XMS_ITS | Encounter Summary ---
Author Organization [employer] Address [address] [place] [address] Care Team Providers Care Director Of Cath Lab Name Role Phone Rolanda Thakur MD Primary Care Provider [phone] Reason for Visit * Reason Onset Date Comments Referral 09/29/2022 Encounter Details Date Type Department Care Team ([facility] st Contact Info) Description 09/29/2022 Telephone [facility] MED & PEDS [address] [place] [address] Rolanda Thakur MD [address] [place] [address] Referral Social History Tobacco Use Types Packs/Day [...] to fax order to Dr Dempsey on [phone] Dempsey's office on [phone]. Will forward message to provider. RN called Roxanne and gave her the phone and fax number to Dr Dempsey's office and also to f/u when EMG order is placed by PCP. * Telephone Encounter - Machelle Adam RN - 10/03/2022 10:09 AM EST Return call placed to Haylie at [facility] neuroscience, spoke with Jumana who states their office donot see pt for diabetic polyneuropathy but instead sees pt for foot drop or other issue. States Haylieis unavailable at this time but will informed her to call [facility] back if needed. Will forward message to PCP as FYI. * Telephone Encounter - Brinda Barnard - 09/29/2022 1:30 PM EST Tc from Haylie from [facility] med / rehab calling to inform they need more dx clarification for referral that was sent . and phone # [phone] documented in this encounter Plan of Treatment Not on file documented as of this encounter Visit Diagnoses Diagnosis Diabetic polyneuropathy associated with diabetes mellitus due to underlying condition (HCC)- Primary documented in this encounter Care Teams Director Of Cath Lab Relationship Specialty Start Date End Date Rolanda Thakur MD [address] [place] [address] PCP - General Internal Medicine 09/19/22 documented as of this encounter
--- OUTSIDE RECORDS SUMMARY | 2025-06-12 09:18 | XMS_ITS | Encounter Summary ---
Author Organization [employer] Address [address] [address] Care Team Providers Care Pay Clerk Name Role Phone Rolanda Thakur MD Primary Care Provider [phone]- [phone] Reason for Visit * Reason Onset Date Comments Nurse Triage 08/09/2024 Encounter Details Date Type Department Care Team ([facility] st Contact Info) Description 08/09/2024 Telephone [facility] MEDICINE [address] [place] [address] Rolanda Thakur MD [address] [place], [place] [phone] Nurse Triage Social History Tobacco Use Types [...] precautions and reasons to call back. Reviewed [facility] operating hours and that wait times vary. Protocol Used: Neck Pain or Stiffness (Adult) Protocol-Based Disposition: See in Office or Video Visit Today or Tomorrow Future Appointments Date Time Provider Department Center 08/10/2024 9:40 AM [facility] WALK-IN CLINIC 2 WALK-IN [facility] Insurance verified as active per Real Time Eligibility in [facility]. Positive Triage Question: * Tenderness in [...] documented as of this encounter Care Teams Pay Clerk Relationship Specialty Start Date End Date Rolanda Thakur MD [address] [place] [address] PCP - General Internal Medicine 09/19/22 documented as of this encounter
--- OUTSIDE RECORDS SUMMARY | 2025-06-12 09:18 | XMS_ITS | Encounter Summary ---
Author Organization [id number] Address [address] [place] [address] Care Team Providers Care Verifier Operator Name Role Phone Rolanda Thakur MD Primary Care Provider +1 [phone] Reason for Referral * Consultation (Routine) - Closed Specialty Diagnoses / Procedures Referred By Contac t Referred To Contact Podiatry Diagnoses Type 2 diabetes mellitus without complication, without long-term current use of insulin (HCC) Rolanda Thakur MD [address] [place] [address] Phone: tel: fax: Carl Avitia DPM Phone: tel: fax: Referral ID Status Reason Start Date Expiration Date V isits Requested Visits Authorized [id number] Closed Specialty Services Required 11/01/2023 10/31/2024 1 1 Encounter Details Date Type Department Care Team (Late st Contact Info) Description 10/23/2023 Orders Only [facility] CHC MED & PEDS [address] [place] [address] Rolanda Thakur MD [address] [place] [address] Acquired hypothyroidism (Primary Dx); Type 2 diabetes [...] complication, without long-term current use of insulin ([facility]/HCC) Expected: 11/01/2023 (Approximate), Expires: 10/31/2024 documented as of this encounter Visit Diagnoses Diagnosis Acquired hypothyroidism- Primary Unspecified hypothyroidism Type 2 diabetes mellitus without complication, without long-term current use of insulin ([facility]) documented in this encounter Care Teams Verifier Operator Relationship Specialty Start Date End Date Rolanda Thakur MD [address] [place] [address] PCP - General Internal Medicine 09/19/22 documented as of this encounter
--- OUTSIDE RECORDS SUMMARY | 2025-06-12 09:18 | XMS_ITS | Encounter Summary ---
Author Organization [employer] Address [address] [place] [address] Care Team Providers Care Health Systems Analyst Name Role Phone Rolanda Thakur MD Primary Care Provider +1- [phone] Encounter Details Date Type Department Care Team ([facility] st Contact Info) Description 12/28/2023 Orders Only [facility] CHC MED & PEDS [address] [place], [place] [phone] Rolanda Thakur MD [address] [place] [address] Social History Tobacco Use Types Packs/Day Years [...] on filedocumented in this encounter Care Teams Health Systems Analyst Relationship Specialty Start Date End Date Rolanda Thakur MD [address] [place] [address] PCP - General Internal Medicine 09/19/22 documented as of this encounter
--- OUTSIDE RECORDS SUMMARY | 2025-06-12 09:18 | XMS_ITS | Encounter Summary ---
Author Organization [employer] Address [address] [place] [address] Care Team Providers Care Spa Director/Finance Name Role Phone Rolanda Thakur MD Primary Care Provider +1- [phone] Reason for Visit * Reason Onset Date Comments Medication Question 10/23/2023 Encounter Details Date Type Department Care Team ([facility] st Contact Info) Description 10/23/[address] [facility] MEDICINE [address] [place] [address] Rolanda Thakur MD 505 [place], [place] [phone] Medication Question Social History Tobacco Use Types [...] on filedocumented in this encounter Care Teams Spa Director/Finance Relationship Specialty Start Date End Date Rolanda Thakur MD [address] [place] [address] PCP - General Internal Medicine 09/19/22 documented as of this encounter
--- OUTSIDE RECORDS SUMMARY | 2025-06-12 09:18 | XMS_ITS | Encounter Summary ---
Author Organization [employer] Address [address] [place] [address] Care Team Providers Care Card Lacer Name Role Phone Rolanda Thakur MD Primary Care Provider +1- [phone] Encounter Details Date Type Department Care Team ([facility] st Contact Info) Description 10/27/2023 Telephone [facility] MEDICINE [address] [place] [phone] Rolanda Thakur MD [address] [place] [address] Social History Tobacco Use Types Packs/Day Years [...] on filedocumented in this encounter Care Teams Card Lacer Relationship Specialty Start Date End Date Rolanda Thakur MD [address] [place] [address] PCP - General Internal Medicine 09/19/22 documented as of this encounter
--- OUTSIDE RECORDS SUMMARY | 2025-06-12 09:18 | XMS_ITS | Encounter Summary ---
Author Organization [employer] Address [address] [place] [address] Care Team Providers Care Transfer Professor Name Role Phone Rolanda Thakur MD Primary Care Provider +1- [phone] Encounter Details Date Type Department Care Team ([facility] st Contact Info) Description 10/27/2023 Orders Only [facility] CHC MED & PEDS [address] [place], [place] [phone] Bhavesh Yang, RN [address] [place] [address] Social History Tobacco Use Types Packs/Day Years [...] on filedocumented in this encounter Care Teams Transfer Professor Relationship Specialty Start Date End Date Rolanda Thakur MD 505 [place] [address] PCP - General Internal Medicine 09/19/22 documented as of this encounter
--- OUTSIDE RECORDS SUMMARY | 2025-06-12 09:18 | XMS_ITS | Encounter Summary ---
Author Organization [employer] Address [address] [place] [address] Care Team Providers Care National Coverage Specialist Name Role Phone Rolanda Thakur MD Primary Care Provider +1 [phone] Reason for Referral * Consultation (Routine) - Closed Specialty Diagnoses / Procedures Referred By Contac t Referred To Contact Endocrinology Diagnoses Type 2 diabetes mellitus without complication, without long-term current use of insulin (HCC) Rolanda Thakur MD [address] [place] [address] Phone: tel: fax: [facility] [address] [place] [phone] Phone: tel: fax: Referral ID Status Reason Start Date Expiration Date V isits Requested Visits Authorized [id number] Closed Specialty Services Required 08/26/2024 08/26/2025 1 1 Encounter Details Date Type Department Care Team (Late st Contact Info) Description 08/26/2024 Orders Only [facility] CHC MED & PEDS [address] [place] [address] Rolanda Thakur MD [address] [place] [address] Type 2 diabetes mellitus without complication, without [...] current use of insulin ([facility]/HCC) Expected: 08/26/2024 (Approximate), Expires: 08/26/2025 documented as of this encounter Visit Diagnoses Diagnosis Type 2 diabetes mellitus without complication, without long-term current use of insulin (HCC)- Primary documented in this encounter Additional Health Concerns Assessment Noted Time PHQ-9 Depression Total Score: 2 05/13/20 24 9:24 AM EDT documented as of this encounter Care Teams National Coverage Specialist Relationship Specialty Start Date End Date Rolanda Thakur MD [address] [place] [address] PCP - General Internal Medicine 09/19/22 documented as of this encounter
--- OUTSIDE RECORDS SUMMARY | 2025-06-12 09:18 | XMS_ITS | Encounter Summary ---
Author Organization [employer] Address [address] [place] [address] Care Team Providers Care Embedded Software Programmer Name Role Phone Rolanda Thakur MD Primary Care Provider +1- [phone] Reason for Visit * Reason Comments Med Refill Encounter Details Date Type Department Care Team ([facility] Contact Info) Description 05/22/2025 Refill [facility] CHC MED & PEDS [address] [place] [address] Rolanda Thakur MD [address] [place] [address] Social History Tobacco Use Types Packs/Day Years [...] documented as of this encounter Care Teams Embedded Software Programmer Relationship Specialty Start Date End Date Rolanda Thakur MD [address] [place] [address] PCP - General Internal Medicine 09/19/22 documented as of this encounter
--- OUTSIDE RECORDS SUMMARY | 2025-06-12 09:18 | XMS_ITS | Encounter Summary ---
Author Organization [employer] Address [address] [facility] 7 [place] [address] Care Team Providers Care Press Loader Name Role Phone Rolanda Thakur MD Primary Care Provider +1- [phone] Encounter Details Date Type Department Care Team ([facility] Contact Info) Description 10/08/2024 Telephone [facility] CHC MED & PEDS [address] [place] [address] Rolanda Thakur MD 505 [place] [address] Social History Tobacco Use Types Packs/Day Years [...] documented as of this encounter Care Teams Press Loader Relationship Specialty Start Date End Date Rolanda Thakur MD [address] [place] [address] PCP - General Internal Medicine 09/19/22 documented as of this encounter
--- OUTSIDE RECORDS SUMMARY | 2025-06-12 09:18 | XMS_ITS | Encounter Summary ---
Author Organization [employer] Address [address] [place] [address] Care Team Providers Care Bacon Slicer Name Role Phone Rolanda Thakur MD Primary Care Provider +1- [phone] Reason for Visit * Reason Onset Date Comments Nurse Triage 01/03/2024 Encounter Details Date Type Department Care Team ([facility] st Contact Info) Description 01/03/2024 Telephone [facility] MEDICINE [address] [place] [address] Rolanda Thakur MD [address] [place], [place] [phone] Nurse Triage Social History Tobacco Use Types [...] on filedocumented in this encounter Care Teams Bacon Slicer Relationship Specialty Start Date End Date Rolanda Thakur MD [address] [place] [address] PCP - General Internal Medicine 09/19/22 documented as of this encounter
--- OUTSIDE RECORDS SUMMARY | 2025-06-12 09:18 | XMS_ITS | Encounter Summary ---
Author Organization [employer] Address [address] [place] [address] Care Team Providers Care Dispatcher Street Department Name Role Phone Rolanda Thakur MD Primary Care Provider +1- [phone] Reason for Visit * Reason Onset Date Comments Referral 11/16/2023 Encounter Details Date Type Department Care Team ([facility] Contact Info) Description 11/16/2023 Telephone [facility] CHC MED & PEDS [address] [place], [place] [phone] Rolanda Thakur MD [address] [place] [address] Referral Social History Tobacco Use Types Packs/Day [...] MyChart encounter. Any questions, contact pt at [phone] documented in this encounter Plan of Treatment Not on file documented as of this encounter Visit Diagnoses Not on filedocumented in this encounter Care Teams Dispatcher Street Department Relationship Specialty Start Date End Date Rolanda Thakur MD [address] [place] [address] PCP - General Internal Medicine 09/19/22 documented as of this encounter
--- OUTSIDE RECORDS SUMMARY | 2025-06-12 09:18 | XMS_ITS | Encounter Summary ---
Author Organization [employer] Address [address] [facility] 7 [place] [address] Care Team Providers Care Nuclear Radiation Engineer Name Role Phone Rolanda Thakur MD Primary Care Provider +1- [phone] Reason for Visit * Reason Onset Date Comments Med Refill 08/19/2024 Encounter Details Date Type Department Care Team (Late st Contact Info) Description 08/19/2024 Refill [facility] [address] [place] [address] Wyatt Huizar MD [address] [place] [address] Neck pain on left side Social History [...] documented as of this encounter Care Teams Nuclear Radiation Engineer Relationship Specialty Start Date End Date Rolanda Thakur MD [address] [place] [address] PCP - General Internal Medicine 09/19/22 documented as of this encounter
--- OUTSIDE RECORDS SUMMARY | 2025-06-12 09:18 | XMS_ITS | Encounter Summary ---
Author Organization [employer] Address [address] [place] [address] Care Team Providers Care Battalion Fire Chief Name Role Phone Rolanda Thakur MD Primary Care Provider +1- [phone] Encounter Details Date Type Department Care Team ([facility] st Contact Info) Description 08/18/2023 Orders Only [facility] CHC MED & PEDS [address] [place], [place] [phone] Rolanda Thakur MD 505 [place] [address] Social History Tobacco Use Types Packs/Day Years [...] on filedocumented in this encounter Care Teams Battalion Fire Chief Relationship Specialty Start Date End Date Rolanda Thakur MD [address] [place] [address] PCP - General Internal Medicine 09/19/22 documented as of this encounter
--- OUTSIDE RECORDS SUMMARY | 2025-06-12 09:18 | XMS_ITS | Encounter Summary ---
Author Organization [employer] Address [address] [place] [address] Care Team Providers Care Outboard Motor Mechanic Name Role Phone Rolanda Thakur MD Primary Care Provider +1- [phone] Reason for Visit * Reason Onset Date Comments Med Refill 10/27/2023 Encounter Details Date Type Department Care Team (Late st Contact Info) Description 10/27/2023 Telephone [facility] MEDICINE [address] [place] [address] Rolanda Thakur MD 505 [place], [place] [phone] Med Refill Social History Tobacco Use Types [...] on medication 125 Please contact pt @ [phone] No meds. * Telephone Encounter - Haylie Cantor RN - 10/27/2023 3:44 PM EST Patient reporting alternating days of synthroid 125 mcg and synthroid 137 mcg. Requesting new script for synthroid 125 mcg. Please review and advise, thanks. Tc from pt requesting levothyroxine (Synthroid) 125 MCG tablet, mortgage underwriter do not see med in chart but pt stated has been taking this medication for 10 years, pt switch 137 and 125 every day, mortgage underwriter attempted to contact pharmacy for clarifications but [facility] [address] open at 9:00AM. * Telephone Encounter - Jenny Neff - 10/27/2023 8:31 AM EST Tc from pt requesting levothyroxine (Synthroid) 125 MCG tablet, mortgage underwriter do not see med in chart but pt stated has been taking this medication for 10 years, pt switch 137 and 125 every day, mortgage underwriter attempted to contact pharmacy for clarifications but [facility] [address] open at 9:00AM. documented in this encounter Plan of Treatment Not on file documented as of this encounter Visit Diagnoses Not on filedocumented in this encounter Care Teams Outboard Motor Mechanic Relationship Specialty Start Date End Date Rolanda Thakur MD [address] [place] [address] PCP - General Internal Medicine 09/19/22 documented as of this encounter
--- OUTSIDE RECORDS SUMMARY | 2025-06-12 09:18 | XMS_ITS | Encounter Summary ---
Author Organization [employer] Address [address] [place] [address] Care Team Providers Care Drop Forger Helper Name Role Phone Rolanda Thakur MD Primary Care Provider +1- [phone] Encounter Details Date Type Department Care Team [...] on filedocumented in this encounter Care Teams Drop Forger Helper Relationship Specialty Start Date End Date Rolanda Thakur MD 505 [place] [address] PCP - General Internal Medicine 09/19/22 documented as of this encounter
--- OUTSIDE RECORDS SUMMARY | 2025-06-12 09:18 | XMS_ITS | Encounter Summary ---
Author Organization [employer] Address [address] [place] [address] Care Team Providers Care Radio Division Officer Name Role Phone Rolanda Thakur MD Primary Care Provider +1- [phone] Reason for Referral * Consultation (Routine) - Canceled Specialty Diagnoses / Procedures Referred By Conthernandez t Referred To Contact Endocrinology Diagnoses Type 2 diabetes mellitus without complication, without long-term current use of insulin (HCC) Rolanda Thakur MD [address] [place] [address] Phone: tel: fax: Referral ID Status Reason Start Date Expiration Date Visits Requested Visits Authorized [id number] Canceled Specialty Services Required 10/08/2024 10/08/2025 1 1 Encounter Details Date Type Department Care Team (Late st Contact Info) Description 10/08/2024 Orders Only [facility] CHC MED & PEDS [address] [place] [address] Rolanda Thakur MD [address] [place] [address] Type 2 diabetes mellitus without complication, without [...] long-term current use of insulin ([facility]) Expected: 10/08/2024 (Approximate), Expires: 10/08/2025 documented as of this encounter Procedures Procedure Name Priority Date/Time Associated Diagnosis Comments HEMOGLOBIN A1C Routine 02/05/2025 12:22 PM EDT Type 2 diabetes mellitus without complication, without long-term current use of insulin ([facility]) documented in this encounter Results * (ABNORMAL) Hemoglobin A1c (02/05/2025 12:22 PM EDT) Hemoglobin A1c 7.4(H) <6.0 % [facility] Comment:Hemoglobin A1C Refer ence Range Adults: 4.8 - 6.0 % Non diabetic: < 6.0 % Goal: < 7.0 %Additional Action Suggested: > 8.0 %Note: Hemoglobin A1c results are invalid for patients with abnormal amounts of HbF. Blood transfusions may impact the HbA1c concentration in the patient sample. Estimated Average Glucose 166 mg/dL [facility] Comment:eAG = Estimated ave rage glucose which is %A1C expressed asaverage glucose, using the formula of the V1G-XvulgriFuiiuca Glucose study (ADAG), Diabetes Care, Vol.31,#8,Mar. 2007 Blood Venous blood specimen / Unknown 02/05/2025 12:22 PM EDT 02/05/2025 1:20 PM EDT Rloanda Thakur MD LAB BLOOD ORDERABLES Final Result [facility] [address] [place] [phone] documented in this encounter Visit Diagnoses Diagnosis Type 2 diabetes mellitus without complication, without long-term current use of insulin (HCC)- Primary documented in this encounter Additional Health Concerns Assessment Noted Time PHQ-9 Depression Total Score: 2 05/13/20 24 9:24 AM EDT documented as of this encounter Care Teams Radio Division Officer Relationship Specialty Start Date End Date Rolanda Thakur MD [address] [place] [address] PCP - General Internal Medicine 09/19/22 documented as of this encounter
--- OUTSIDE RECORDS SUMMARY | 2025-06-12 09:18 | XMS_ITS | Encounter Summary ---
Author Organization [employer] Address [address] [address] Care Team Providers Care Hand Sample Maker Name Role Phone Rolanda Thakur MD Primary Care Provider +1- [phone] Reason for Visit * Reason Comments Med Refill Encounter Details Date Type Department Care Team ([facility] st Contact Info) Description 08/27/2024 Refill [facility] MEDICINE [address] [place] [address] Rolanda Thakur MD [address] [place], [place] [phone] Type 2 diabetes mellitus without complication, without long-term current use of insulin ([facility]) Social History Tobacco Use Types [...] as of this encounter Care Teams Hand Sample Maker Relationship Specialty Start Date End Date Rolanda Thakur MD [address] [place] [address] PCP - General Internal Medicine 09/19/22 documented as of this encounter
== END 2025-06-12 10:14 | disposition home or self-care (01) ==
PROVIDERS: PCP Internal Medicine; Visit Provider Family Medicine
DX: F41.0 Panic disorder [episodic paroxysmal anxiety] (principal); R03.0 Elevated blood-pressure reading, without diagnosis of hypertension
CPT/HCPCS: 99213

== ENCOUNTER → 2025-06-12 08:41 | Outpatient (BNVA) | payer MEDICARE, SELFPAY | PROVIDERS: PCP Internal Medicine; Visit Provider Family Medicine | DX: F41.0 Panic disorder [episodic paroxysmal anxiety] (principal); R03.0 Elevated blood-pressure reading, without diagnosis of hypertension; F43.9 Reaction to severe stress, unspecified; Z79.899 Other long term (current) drug therapy | CPT/HCPCS: 99212 ==

== ENCOUNTER 2025-06-18 07:47 | Outpatient (AMB) | payer MEDICARE, SELFPAY ==
--- OUTSIDE RECORDS SUMMARY | 2025-06-18 07:49 | XMS_ITS | Encounter Summary ---
Author Organization [employer] Address [address] [facility] 7t [place] [address] Care Team Providers Care Manager Photo Name Role Phone Rolanda Thakur MD Primary Care Provider +1 [phone] Encounter Details Date Type Department Care Team ([facility] st Contact Info) Description 06/13/2025 Orders Only [facility] CHC MED & PEDS [address] [place] [address] ProviderChema MD Social History Tobacco Use Types [...] Procedure Name Priority Date/Time Associated Diagnosis Comments US RETROPERITONEAL COMPLETE (KIDNEYS AND BLADDER) Routine 06/08/2025 9:25 AM EDT documented in this encounter Results * US RETROPERITONEAL COMPLETE (KIDNEYS AND BLADDER) (06/08/2025 9:25 AM EDT) Anatomical Region Laterality Modality Ultrasound us Historical Provider MD GARCIA US PROCEDURES Final R esult documented in this encounter Visit Diagnoses Not on filedocumented in this encounter Additional Health Concerns Assessment Noted Time PHQ-9 Depression Total Score: 2 05/13/20 24 9:24 AM EDT documented as of this encounter Care Teams Manager Photo Relationship Specialty Start Date End Date Rolanda Thakur MD [address] [place] [address] PCP - General Internal Medicine 09/19/22 documented as of this encounter
--- OUTSIDE RECORDS SUMMARY | 2025-06-18 07:49 | XMS_ITS | Encounter Summary ---
Author Organization [employer] Address [address] [place] [address] Care Team Providers Care Supply Chain Intern Name Role Phone Rolanda Thakur MD Primary Care Provider +1- [phone] Reason for Referral * Consultation (Routine) - Canceled Specialty Diagnoses / Procedures Referred By Contac t Referred To Contact Pharmacy Diagnoses Type 2 diabetes mellitus without complication, without long-term current use of insulin (HCC) Rolanda Thakur MD [address] [place] [address] Phone: tel: fax: Referral ID Status Reason Start Date Expiration Date V isits Requested Visits Authorized [id number] Canceled Consult and Treat 04/14/2025 04/14/2026 6 6 Encounter Details Date Type Department Care Team (Late st Contact Info) Description 04/14/2025 Orders Only [facility] CHC MED & PEDS [address] [place] [address] Rolanda Thakur MD [address] [place] [address] Type 2 diabetes mellitus without complication, without [...] without long-term current use of insulin ([facility]) Recent urinary tract infection Expected: [...] without long-term current use of insulin ([facility]) Recent urinary tract infection documented in this encounter Results * (ABNORMAL) Urinalysis, Complete, with Reflex to Culture (04/30/2025 8:37 AM EDT) Color Urine Dark Yellow [facility] Appearance Urine Clear [facility] PH 6.5 5.0 - 9.0 [facility] Glucose Urine UA Negative Negative mg/dL [facility] Urine Blood Negative Negative [facility] Specific [place] - Urine 1.010 1.005 - 1.025 [facility] Urine Protein Negative Neg-Trace mg/dL [facility] Urine Ketones Negative Negative mg/dL [facility] Nitrite Urine Negative Negative [facility] Leukocyte Esterase Urine Small (1+)(A) Negative [facility] RBC Urine 0-2 0 - 2 /HPF [facility] Urine WBC 0-5 0 - 5 /HPF [facility] Urine Squamous Epithelial Cell 0-2 0 - 2 /HPF [facility] Urine Bacteria None Seen None Seen [facility] Hyaline Casts, Urine 0-2 0 - 2 /LPF [facility] Urine 04/30/2025 8:37 AM EDT 04/30/2025 1:12 PM EDT Narrative [facility] - 04/30/2025 2:16 PM EDT Urine, Clean Catch us Rolanda Thakur MD LAB URINE ORDERABLES Final Result [facility] [address] [place] [address] [phone] documented in this encounter Visit Diagnoses Diagnosis Type 2 diabetes mellitus without complication, without long-term current use of insulin ([facility])- Primary Recent urinary tract infection documented in this encounter Additional Health Concerns Assessment Noted Time PHQ-9 Depression Total Score: 2 05/13/20 24 9:24 AM EDT documented as of this encounter Care Teams Supply Chain Intern Relationship Specialty Start Date End Date Rolanda Thakur MD [address] [place] [address] PCP - General Internal Medicine 09/19/22 documented as of this encounter
--- OUTSIDE RECORDS SUMMARY | 2025-06-18 07:49 | XMS_ITS | Encounter Summary ---
Author Organization [employer] Address [address] [place] [address] Care Team Providers Care Director Global Strategic Publisher Sales Name Role Phone Rolanda Thakur MD Primary Care Provider +1- [phone] Reason for Visit * Reason Onset Date Comments Med Refill 04/17/2025 Encounter Details Date Type Department Care Team ([facility] st Contact Info) Description 04/17/2025 Telephone [facility] MED & PEDS [address] [place] [address] Rolanda Thakur MD 505 [place] [address] Med Refill Social History Tobacco Use Types [...] 125 MCG tablet [id number] [place] [facility] [address] [facility] AT [facility] Pt has no more medication and needs [...] as of this encounter Care Teams Director Global Strategic Publisher Sales Relationship Specialty Start Date End Date Rolanda Thakur MD [address] [place] [address] [place] [address] PCP - General Internal Medicine 09/19/22 documented as of this encounter
--- OUTSIDE RECORDS SUMMARY | 2025-06-18 07:49 | XMS_ITS | Encounter Summary ---
Author Organization [employer] Address [address] [address] Care Team Providers Care Sales And Catering Coordinator Name Role Phone Rolanda Thakur MD Primary Care Provider +1- [phone] Reason for Visit * Reason Onset Date Comments Referral 02/28/2025 Encounter Details Date Type Department Care Team ([facility] st Contact Info) Description 02/28/2025 Telephone [facility] MEDICINE [address] [place] [address] Rolanda Thakur MD 505 [place], [place] [phone] Referral Social History Tobacco Use Types Packs/Day [...] to change location of endocrinology referral: Address: [address] [place] [address] [place] [address] Facility Name: [facility] Type of Specialist: Endocrinology Provider: Dr. Aren Banerjee documented in this encounter Plan of Treatment Not on file documented as of this encounter Visit Diagnoses Not on filedocumented in this encounter Additional Health Concerns Assessment Noted Time PHQ-9 Depression Total Score: 2 05/13/20 24 9:24 AM EDT documented as of this encounter Care Teams Sales And Catering Coordinator Relationship Specialty Start Date End Date Rolanda Thakur MD [address] [place] [address] PCP - General Internal Medicine 09/19/22 documented as of this encounter
--- OUTSIDE RECORDS SUMMARY | 2025-06-18 07:49 | XMS_ITS | Encounter Summary ---
Author Organization [employer] Address [address] [place] [address] Care Team Providers Care Foreign Law Consultant Name Role Phone Rolanda Thakur MD Primary Care Provider +1 [phone] Reason for Visit * Reason Comments Med Refill Encounter Details Date Type Department Care Team ([facility] st Contact Info) Description 01/05/2023 Refill [facility] MED & PEDS [address] [place] [address] Karoline Castañeda MD 505 [place] [address] Social History Tobacco Use Types Packs/Day Years [...] filedocumented in this encounter Care Teams Foreign Law Consultant Relationship Specialty Start Date End Date Rolanda Thakur MD [address] [place] [address] PCP - General Internal Medicine 09/19/22 documented as of this encounter
--- OUTSIDE RECORDS SUMMARY | 2025-06-18 07:49 | XMS_ITS | Encounter Summary ---
Author Organization [employer] Address [address] [place] [address] Care Team Providers Care Field Artillery Officer Name Role Phone Rolanda Thakur MD Primary Care Provider +1- [phone] Reason for Visit * Reason Comments Med Refill Encounter Details Date Type Department Care Team ([facility] st Contact Info) Description 12/03/2024 Refill [facility] MED & PEDS [address] [place], [place] [phone] Rolanda Thakur MD 505 [place] [address] Diabetic polyneuropathy associated with type 2 diabetes [...] documented as of this encounter Care Teams Field Artillery Officer Relationship Specialty Start Date End Date Rolanda Thakur MD [address] [place] [address] PCP - General Internal Medicine 09/19/22 documented as of this encounter
--- OUTSIDE RECORDS SUMMARY | 2025-06-18 07:49 | XMS_ITS | Encounter Summary ---
Author Organization [employer] Address [address] [address] Care Team Providers Care Family Law Specialist Name Role Phone Rolanda Thakur MD Primary Care Provider +1- [phone] Reason for Visit * Reason Onset Date Comments Nurse Triage 04/17/2025 Encounter Details Date Type Department Care Team ([facility] st Contact Info) Description 04/17/2025 Telephone [facility] MEDICINE 230 [place] [address] Rolanda Thakur MD 505 [place], [place] [phone] Nurse Triage Social History Tobacco Use Types [...] encounter Miscellaneous Notes * Telephone Encounter - eHnny Tan RN - 04/17/2025 4:28 PM EDT Call returned to Angely Pineda to triage below at [phone]. Having urinary frequency and flankpain 10/28. Denies any pelvic pain, N/V, fever or pain. No dark color or odor. Pt states unable to come into office tomorrow due to working until 4:30pm. Pt wants PCP to place UA and cx order to be sent to [facility] labs. Pt advised will send request but also reminded that our [facility] is open on Monday 9a-1p and UA [...] as of this encounter Care Teams Family Law Specialist Relationship Specialty Start Date End Date Rolanda Thakur MD [address] [place] [address] PCP - General Internal Medicine 09/19/22 documented as of this encounter
--- OUTSIDE RECORDS SUMMARY | 2025-06-18 07:49 | XMS_ITS | Encounter Summary ---
Author Organization [employer] Address [address] [address] Care Team Providers Care Foxing Painter Name Role Phone Rolanda Thakur MD Primary Care Provider +1- [phone] Reason for Visit * Reason Onset Date Comments Medication Question 11/27/2024 Encounter Details Date Type Department Care Team ([facility] st Contact Info) Description 11/27/2024 Telephone [facility] MEDICINE 230 [place] [address] Rolanda Thakur MD [address] [place], [place] [phone] Medication Question Social History Tobacco Use Types [...] going through what is going on. Contact [phone] documented in this encounter Plan of Treatment Not on file documented as of this encounter Visit Diagnoses Not on filedocumented in this encounter Additional Health Concerns Assessment Noted Time PHQ-9 Depression Total Score: 2 05/13/20 24 9:24 AM EDT documented as of this encounter Care Teams Foxing Painter Relationship Specialty Start Date End Date Rolanda Thakur MD [address] [place] [address] PCP - General Internal Medicine 09/19/22 documented as of this encounter
--- OUTSIDE RECORDS SUMMARY | 2025-06-18 07:49 | XMS_ITS | Clinical Summary ---
Author Organization [address] [facility] Address [address] [place] [address] Phone Care Team Providers Care Cheese Factory Worker Name Role Phone Rolanda Thakur MD Primary Care Provider +1 -[phone] Allergies Active Allergy Reactions Criticality Noted Date [...] aware that this will likely be an [id number] cost and feels as though she can [...] - 06/08/2025 11:59 PM EDT Hospital Encounter [facility] Ultrasound [address] [place] [phone] Overactive bladder Discharge Disposition: Home or Self Care 04/02/2025 Telephone [facility] [address] [place] [address] Nikki Rawls MD from Last [...] Description 06/23/2025 7:40 AM EST Office Visit [facility] - [facility] [address] [facility] [address] [place] [address] Kadi Palacios, MARIBEL [address] [place] [address] [place] [address] Health Maintenance Due Date Last Done Comments Diabetes: Annual Foot Exam 1961 Diabetes: Annual Retina Eye Exam 1961 Falls Risk Assessment 07/20/2022 Medicare Annual Wellness Visit 07/20/2022 Social Influencers of Health Screening 07/20/2022 Diabetes: Annual Urine Albumin-Creatinine Ratio (uACR) 10/04/2023 Depression Screening 08/21/2024 COVID-19 Vaccine ( season) 2025 07/10/2021, 11/04/2020 Influenza Vaccine (#1) 2025 4, 06/26/2023, 06/27/2021, Additional history exists Diabetes: Blood [...] Date/Time Associated Diagnosis Comments US RETROPERITONEAL COMPLETE Routine 06/08/2025 12:02 PM EDT Overactive bladder MG MAMMO DIGITAL SCREENING W SURESH BILAT Routine 12/17/2024 4:06 PM EDT Encounter for screening mammogram for breast cancer MOHAMUD DEXA AXIAL SKELETON Routine 04/12/20 7:46 AM EDT Encounter for screening for osteoporosis from Last 3 Months or Most Recently Relevant to Health Maintenance Results * US Retroperitoneal Complete (06/08/2025 12:02 PM EDT) Anatomical Region Laterality Modality Body Ultrasound 06/12/2025 5:05 PM EDT Impressions 06/12/2025 5:05 PM EDT NO HYDRONEPHROSIS. -------- FINAL REPORT -------- Dictated By: Aleksander Lopez Dictated Date: 06/12/2025 17:05 ET Assigned Physician: Aleksander Lopez Reviewed and Electronically Signed By: Aleksander Lopez Signed Date: 06/12/2025 17:05 ET Workstation ID: [id number] Transcribed By: Self Edit Transcribed Date: 06/12/2025 17:05 ET Narrative 06/12/2025 5:05 PM EDT PROCEDURE: US RETROPERITONEAL COMPLETE INDICATION: OVERACTIVE BLADDER TECHNIQUE: 2-D cohen scale, color Doppler imaging of the kidneys. COMPARISON: No priors available. FINDINGS: Right kidney: The right kidney is normal in size, shape, configuration, and echogenicity. There is no hydronephrosis or nephrolithiasis. The right kidney measures 9.5cm. Left kidney: The left kidney is normal in size, shape, configuration, and echogenicity. There is no hydronephrosis or nephrolithiasis. The left kidney measures 10.2cm. Unremarkable urinary bladder. Post void residual 75 mL Procedure Note Aleksander Lopez MD - 06/12/2025 PROCEDURE: US RETROPERITONEAL COMPLETE INDICATION: OVERACTIVE BLADDER TECHNIQUE: 2-D cohen scale, color Doppler imaging of the kidneys. COMPARISON: No priors available. FINDINGS: Right kidney: The right kidney is normal in size, shape, configuration,and echogenicity. There is no hydronephrosis or nephrolithiasis. The rightkidney measures 9.5cm. Left kidney: The left kidney is normal in size, shape, configuration, andechogenicity. There is no hydronephrosis or nephrolithiasis. The leftkidney measures 10.2cm. Unremarkable urinary bladder. Post void residual 75 mL IMPRESSION: NO HYDRONEPHROSIS. -------- FINAL REPORT -------- Dictated By: Aleksander Lopez Dictated Date: 06/12/2025 17:05 ET Assigned Physician: Aleksander Lopez Reviewed and Electronically Signed By: Aleksander Lopez Signed Date: 06/12/2025 17:05 ET Workstation ID: [id number] Transcribed By: Self Edit Transcribed Date: 06/12/2025 17:05 ET us Travis Cordero MD IMG US PROCEDURES Final R esult * MG Mammo Digital Screening w Suresh bilat (12/17/2024 4:06 PM EDT) Anatomical Region Laterality Modality Breast Bilateral Mammography 12/18/2024 7:51 AM EDT Impressions 12/18/2024 7:55 AM EDT No evidence of breast malignancy. BI-RADS CATEGORY: 1 - NEGATIVE RECOMMENDATION: Screening bilateral mammogram is recommended in 1 year. Mammo Location: [facility], [address] [place] [address], [address], . -------- FINAL REPORT -------- Dictated By: Peggy Reddy Dictated Date: 12/18/2024 07:51 ET Assigned Physician: Peggy Reddy Reviewed and Electronically Signed By: Peggy Reddy Signed Date: 12/18/2024 07:55 ET Workstation ID: [id number] Transcribed By: Self Edit Transcribed Date: 12/18/2024 [...] Mammo Location: [facility], [address] [place] [address], [address], . -------- FINAL REPORT -------- Dictated By: Peggy Reddy Dictated Date: 12/18/2024 07:51 ET Assigned Physician: Peggy Reddy Reviewed and Electronically Signed By: Peggy Reddy Signed Date: 12/18/2024 07:55 ET Workstation ID: [id number] Transcribed By: Self Edit Transcribed Date: 12/18/2024 07:51 ET us Self Referral Sppl IMG BI PROCEDURES Final Resul t * MOHAMUD DEXA AXIAL SKELETON (04/12/2023 7:46 AM EDT) Anatomical Region Laterality Modality Mammography 04/11/2023 3:03 PM EDT Narrative 04/12/2023 7:46 AM EDT [facility] Diagnostic Imaging Department [address] [place] [address] Patient: ANGELY PINEDA YARA /Age/Sex: 1950 - 72 - F Unit#: [id number] Location/Status: SPDIMAM/REG CLI Mnemonic/Ordering Site: MAMDEXAAX/SPMAM Ordering Physician: MAREN HOUGH MD Mohamud Dexa Axial Skeleton - 04/11/23 - 9923 Report Status:Signed HISTORY: The patient is a [...] probability of hip fracture of 2.2%. Code 29240 Dictating Physician: GWENDOLYN BAHENA MD Electronically Signed by: GWENDOLYN BAHENA MD Dic Date/Time: 04/12/2345 Sign date/Time: 04/12/23745 Procedure Note Gwendolyn Bahena MD - 09/26/2023 [facility] Diagnostic Imaging Department [address] [place] [address] Patient: ANGELY PINEDA YARA JohnsonO.B./Age/Sex: 1950 - 72 - F Unit#: [id number] [facility] Ordering Physician: MAREN HOUGH MD Mohamud Dexa Axial Skeleton - 04/11/23 - 2711 Report Status:Signed HISTORY: The patient is a [...] density of the femurs bilaterally is 0.874 gm/yf0jpwvc is 87% of that of young normals [...] probability of hip fracture of 2.2%. Code 87167 Dictating Physician: GWENDOLYN BAHENA MD Electronically Signed by: GWENDOLYN BAHENA MD Dic Date/Time: 04/12/2345 Sign date/Time: 04/12/23745 Maern Hough MD IMG BI PROCEDURES Final Result from Last 3 Months or Most Recently Relevant to Health Maintenance Insurance [employer] MEDICARE Care Teams Cheese Factory Worker Relationship Specialty Start Date End Date Rolanda Thakur MD [address] [place] [address] PCP - General 11/03/23
--- OUTSIDE RECORDS SUMMARY | 2025-06-18 07:49 | XMS_ITS | Encounter Summary ---
Author Organization [employer] Address [address] [place] [address] 7 [place] [address] Care Team Providers Care Product Designer Name Role Phone Rolanda Thakur MD Primary Care Provider +1 [phone] Encounter Details Date Type Department Care Team ([facility] Contact Info) Description 04/18/2025 Orders Only [facility] MED & PEDS 505 [place], [place] [phone] Migdalia Loza FNP 505 [place] [address] Acquired hypothyroidism (Primary Dx); UTI symptoms; Type 2 diabetes mellitus without complication, without long-term current use of insulin ([facility]) Social History Tobacco [...] (04/18/2025 8:39 AM EDT) Color Urine Yellow [facility] Appearance Urine Clear [facility] PH 6.0 5.0 - 9.0 [facility] Glucose Urine UA Negative Negative mg/dL [facility] Urine Blood Negative Negative [facility] Specific [place] - Urine 1.010 1.005 - 1.025 [facility] Urine Protein Negative Neg-Trace mg/dL [facility] Urine Ketones Negative Negative mg/dL [facility] Nitrite Urine Negative Negative [facility] Leukocyte Esterase Urine Small (1+)(A) Negative [facility] RBC Urine 0-2 0 - 2 /HPF [facility] Urine WBC 0-5 0 - 5 /HPF [facility] Urine Squamous Epithelial Cell 0-2 0 - 2 /HPF [facility] Urine Bacteria None Seen None Seen [facility] Hyaline Casts, Urine 0-2 0 - 2 /LPF [facility] Urine 04/18/2025 8:39 AM EDT 04/18/2025 2:25 PM EDT Narrative [facility] - 04/18/2025 4:11 PM EDT [id number], Clean Catch Migdalia Loza GRAPHIC PRODUCTION ARTIST LAB URINE ORDERABLES Final Res ult Performing Organization Address City/[facility]/ZIP Co de Phone Number [facility] [address] [place] [phone] * TSH W/Reflex to FT4 (04/18/2025 8:31 AM EDT) TSH reflex Free T4 1.59 0.32 - 4.0 uIU/mL [facility] Blood Venous blood specimen / Unknown 04/18/2025 8:31 AM EDT 04/18/2025 2:28 PM EDT Migdalia Loza GRAPHIC PRODUCTION ARTIST LAB BLOOD ORDERABLES Final Res ult Performing Organization Address City/[facility]/ZIP Co de Phone Number [facility] [address] [place] [phone] * Culture, Urine, Routine (04/18/2025 12:00 AM EDT) Urine Urine specimen obtained by clean catch procedure / Unknown 04/18/2025 04/18/2025 Comment:UACC Narrative [facility] - 04/20/2025 9:46 AM EDT Urine Culture Report Result Urine Culture > 100,000 cfu/ml Urine Culture Mixed bacterial hailey characteristic of Urine Culture urogenital contamination. Specimen Source: Urine clean catch us Migdalia Loza GRAPHIC PRODUCTION ARTIST LAB MICROBIOLOGY - GENERAL ORD ERABLES Final Result [facility] [address] [place] [address] [phone] documented in this encounter Visit Diagnoses Diagnosis Acquired hypothyroidism- Primary Unspecified hypothyroidism UTI symptoms Type 2 diabetes mellitus without complication, without long-term current use of insulin (HCC) documented in this encounter Additional Health Concerns Assessment Noted Time PHQ-9 Depression Total Score: 2 05/13/20 24 9:24 AM EDT documented as of this encounter Care Teams Product Designer Relationship Specialty Start Date End Date Rolanda Thakur MD [address] [place] [address] PCP - General Internal Medicine 09/19/22 documented as of this encounter
--- OUTSIDE RECORDS SUMMARY | 2025-06-18 07:49 | XMS_ITS | Encounter Summary ---
Author Organization [employer] Address [address] [place] [address] Care Team Providers Care Aeronautical Engineering Technologist Name Role Phone Rolanda Thakur MD Primary Care Provider +1- [phone] Reason for Visit * Reason Comments Med Refill Encounter Details Date Type Department Care Team ([facility] st Contact Info) Description 03/02/2025 Refill [facility] CH[facility] MED & PEDS [address] [place], [place] [phone] Rolanda Thakur MD 505 [place] [address] Diabetic polyneuropathy associated with type 2 diabetes [...] documented as of this encounter Care Teams Aeronautical Engineering Technologist Relationship Specialty Start Date End Date Rolanda Thakur MD [address] [place] [address] PCP - General Internal Medicine 09/19/22 documented as of this encounter
--- OUTSIDE RECORDS SUMMARY | 2025-06-18 07:49 | XMS_ITS | Encounter Summary ---
Author Organization [employer] Address [address] [place] [address] Care Team Providers Care Administration Vice President Name Role Phone Rolanda Thakur MD Primary Care Provider +1- [phone] Encounter Details Date Type Department Care Team ([facility] st Contact Info) Description 05/16/2023 Orders Only [facility] CHC MED & PEDS [address] [place], [place] [phone] Rolanda Thakur MD 505 [place] [address] Bilateral leg paresthesia (Primary Dx); Anxiety; Diabetic [...] Vitamin B6 16.0 2.1 - 21.7 ng/mL [facility] Comment:Vitamin supplementat ion within 24 hours prior toblood draw may affect the accuracy of the results.This test was developed and its analytical performancecharacteristics have been determined by [employer] [place], [place]. It hasnot been cleared or approved by the U.S. Food and DrugAdministration. This assay has been validated pursuantto the CLIA regulations and is used for clinicalpurposes.THIS TEST WAS PERFORMED AT:[employer] [place] [address]BFPTGKG W. MASON,MD,PHD Blood Venous blood specimen / Unknown 10/10/2023 12:50 PM EST 10/10/2023 2:41 PM EST us Rolanda Thakur MD LAB BLOOD ORDERABLES Final Result [facility] [address] [place] [phone] * (ABNORMAL) Vitamin B12 (10/10/2023 12:50 PM EST) Pathologist [facility] Vitamin B12 1,388(H) 200 - 900 pg/mL [facility] Comment:NORMAL 200-900 PG/ML INDETERMINATE 160-199 PG/ML DEFICIENT < 160 PG/ML Blood Venous blood specimen / Unknown 10/10/2023 12:50 PM EST 10/10/2023 2:41 PM EST us Rolanda Thakur MD LAB BLOOD ORDERABLES Final Result Performing Organization Address City/[facility]/ZIP Co de Phone Number [facility] [address] [place] [address] [phone] * TSH W/Reflex to FT4 (10/10/2023 12:50 PM EST) Pathologist [facility] TSH reflex Free T4 0.35 0.32 - 4.0 uIU/mL [facility] Blood 10/10/2023 12:5 0 PM EST 10/10/2023 2:41 PM EST us Rolanda Thakur MD LAB BLOOD ORDERABLES Final Result Performing Organization Address City/[facility]/ZIP Co de Phone Number [facility] [address] [place] [address] [phone] * (ABNORMAL) CBC auto differential (10/10/2023 12:50 PM EST) White Blood Count 8.0 4.8 - 10.8 X10*3/uL [facility] Red Blood Count 4.19(L) 4.20 - 5.50 X10*6/uL [facility] Hemoglobin 12.3 12.0 - 16.0 g/dl [facility] Hematocrit 36.6(L) 37.0 - 47.0 % [facility] Mean Corpuscular Volume 87.4 80.0 - 98.0 fL [facility] Mean Corpuscular Hemoglobin 29.4 27.0 - 33.0 pg [facility] Mean Corpuscular HGB Conc 33.6 31.0 - 35.0 g/dl [facility] Red Cell Distribution Width 12.8 11.0 - 16.0 % [facility] Platelet Count 252 160 - 400 X10*3/uL [facility] Mean Platelet Volume 9.5 9.4 - 12.3 fL [facility] Neutrophils Percent Auto 55.5 45 - 73 % [facility] Imm Gran Pct Auto 0.4 0.0 - 0.4 % [facility] Lymphocytes Percent Auto 31.3 20 - 40 % [facility] Monocytes Percent Auto 6.0 2 - 11 % [facility] Eosinophils Percent Auto 5.9(H) 0 - 4 % [facility] Basophils Percent Auto 0.9 0 - 2 % [facility] NRBC Pct Auto 0.0 0.0 - 0.2 /100WBC [facility] Neutrophils Absolute Auto 4.5 2.0 - 8.3 x10*3/uL [facility] Imm Gran Abs Auto 0.03 0.00 - 0.03 X10*3/uL [facility] Lymphocytes Absolute Auto 2.5 1.2 - 4.9 X10*3/uL [facility] Monocytes Absolute Auto 0.5 0.1 - 1.2 X10*3/uL [facility] Eosinophils Absolute Auto 0.5(H) 0.0 - 0.4 X10*3/uL [facility] Basophils Absolute Auto 0.1 0.0 - 0.2 X10*3/uL [facility] NRBC Abs Auto 0.000 0.0 - 0.012 X10*3/uL [facility] Blood Venous blood specimen / Unknown 10/10/2023 12:50 PM EST 10/10/2023 2:41 PM EST us Rolanda Thakur MD LAB BLOOD ORDERABLES Final Result [facility] [address] [place] [address] [phone] documented in this encounter Visit Diagnoses Diagnosis Bilateral leg paresthesia- Primary Disturbance of skin sensation Anxiety Anxiety state, unspecified Diabetic polyneuropathy associated with type 2 diabetes mellitus (HCC) documented in this encounter Care Teams Administration Vice President Relationship Specialty Start Date End Date Rolanda Thakur MD [address] [place] [phone] PCP - General Internal Medicine 09/19/22 documented as of this encounter
--- OUTSIDE RECORDS SUMMARY | 2025-06-18 07:49 | XMS_ITS | Encounter Summary ---
Author Organization [employer] Address [address] [address] Care Team Providers Care Casket Liner Name Role Phone Rolanda Thakur MD Primary Care Provider +1- [phone] Reason for Visit * Reason Onset Date Comments Call Back Request 10/31/2024 Encounter Details Date Type Department Care Team ([facility] st Contact Info) Description 10/31/2024 Telephone [facility] MEDICINE [address] [place] [address] Rolanda Thakur MD 505 [place], [place] [phone] Call Back Request Social History Tobacco Use [...] to DR. Castañeda. Please contact pt at [phone]. documented in this encounter Plan of Treatment Not on file documented as of this encounter Visit Diagnoses Not on filedocumented in this encounter Additional Health Concerns Assessment Noted Time PHQ-9 Depression Total Score: 2 05/13/20 24 9:24 AM EDT documented as of this encounter Care Teams Casket Liner Relationship Specialty Start Date End Date Rolanda Thakur MD [address] [place] [address] PCP - General Internal Medicine 09/19/22 documented as of this encounter
--- OUTSIDE RECORDS SUMMARY | 2025-06-18 07:49 | XMS_ITS | Continuity of Care Document ---
Author Organization [facility] [address] [place] [address] Phone [phone] Care Team Providers Care Livestock Farm Workers Name Role Phone Rolanda Thakur M.D. Care Team Information Re ceiver [phone] Problems Active Problems Provider Date Type 2 [...] SIG Qnty Indications Order ing Provider Date Cmpymjvsr370erk Tablets 1 tab by mouth every day 90tabs Beauzile Thecarlain M.D. Losartan Vcxcqcdfa951vw Tablets 1 tab by mouth every day BeauzileRolanda M.DNaman Clonidine HCL0.1mg Tablets Beauzile Thevenin M.DNaman Buspirone HCL5mg Tablets 1 tab by mouth twice a day BemitchellzileRolanda M.DNaman Clonazepam0.5mg Tablets Take 1 Tablet By Mouth Every Day as Needed For Panic Attacks Beauzile, Thevenin, M.D. Aspirin Low Svuv47on Tablets Rolanda Morrissey M.D. Cyclobenzaprine VVB55kv Tablets Take 1 Tablet By Mouth Every 8 Hours Rolanda Thakur M.D. Metformin HEA994iu Tablets Take 1 Tablet By Mouth Twice Daily Demi Brothers MD Tzkkovajr51rw Tablets 1 tab by mouth twice a [...]
--- OUTSIDE RECORDS SUMMARY | 2025-06-18 07:49 | XMS_ITS | Encounter Summary ---
Author Organization [employer] Address [address] [place] [address] 7 [place] [address] Care Team Providers Care Mail Reader Name Role Phone Rolanda Thakur MD Primary Care Provider [phone]- [phone] Reason for Visit * Reason Comments Med Refill Encounter Details Date Type Department Care Team ([facility] st Contact Info) Description 12/28/2022 Refill [facility] CHC MED & PEDS [address] [place] [address] Maren Hough MD 505 [place] [address] Type 2 diabetes mellitus without complication, without long-term current use of insulin ([facility]); Anxiety Social History Tobacco Use [...] unspecified documented in this encounter Care Teams Mail Reader Relationship Specialty Start Date End Date Rolanda Thakur MD [address] [place] [address] PCP - General Internal Medicine 09/19/22 documented as of this encounter
--- OUTSIDE RECORDS SUMMARY | 2025-06-18 07:49 | XMS_ITS | Encounter Summary ---
Author Organization [employer] Address [address] [place] [address] 7 [place] [address] Care Team Providers Care Senior Medical Billing Specialist Name Role Phone Rolanda Thakur MD Primary Care Provider +1- [phone] Encounter Details Date Type Department Care Team ([facility] Contact Info) Description 04/22/2025 Results Follow-Up [facility] CHC MED & PEDS 505 [place] [address] Migdalia Loza FNP 505 [place] [address] TSH W/Reflex to FT4, Urinalysis, Complete, with [...] as of this encounter Care Teams Senior Medical Billing Specialist Relationship Specialty Start Date End Date Rolanda Thakur MD [address] [place] [address] PCP - General Internal Medicine 09/19/22 documented as of this encounter
--- OUTSIDE RECORDS SUMMARY | 2025-06-18 07:49 | XMS_ITS | Encounter Summary ---
Author Organization [employer] Address [address] [place] [address] Care Team Providers Care Aviation Safety Technician Name Role Phone Rolanda Thakur MD Primary Care Provider +1- [phone] Reason for Visit * Reason Comments Med Refill Encounter Details Date Type Department Care Team ([facility] Contact Info) Description 06/17/2025 Refill [facility] CHC MED & PEDS [address] [place] [address] Rolanda Thakur MD 505 [place] [address] Panic attack; Anxiety Social History Tobacco Use [...] documented as of this encounter Care Teams Aviation Safety Technician Relationship Specialty Start Date End Date Rolanda Thakur MD [address] [place] [address] PCP - General Internal Medicine 09/19/22 documented as of this encounter
--- OUTSIDE RECORDS SUMMARY | 2025-06-18 07:49 | XMS_ITS | Encounter Summary ---
Author Organization [employer] Address [address] [place] [address] Care Team Providers Care Professor Of Journalism Name Role Phone Rolanda Thakur MD Primary Care Provider +1- [phone] Encounter Details Date Type Department Care Team ([facility] st Contact Info) Description 05/01/2023 Orders Only [facility] CHC MED & PEDS 505 [place] [address] Rolanda Thakur MD 505 [place] [address] Diabetic polyneuropathy associated with type 2 diabetes [...] polyneuropathy associated with type 2 diabetes mellitus ([facility]/HCC) TSH W/REFLEX TO FT4 Routine 05/08/2023 1 1:04 AM EDT Diabetic polyneuropathy associated with type 2 diabetes mellitus ([facility]/HCC) CBC WITH AUTO DIFFERENTIAL Routine 05/08/2023 11:04 AM EDT Diabetic polyneuropathy associated with type 2 diabetes mellitus ([facility]/H[facility]) HEMOGLOBIN A1C Routine 05/08/2023 11:04 AM EDT Diabetic polyneuropathy associated with type 2 diabetes mellitus ([facility]/H[facility]) HEPATIC FUNCTION PANEL Routine 05/08/2023 11:04 AM EDT Diabetic polyneuropathy associated with type 2 diabetes mellitus ([facility]/H[facility]) LIPID PANEL, STANDARD Routine 05/08/2023 11:04 AM EDT Diabetic polyneuropathy associated with type 2 diabetes mellitus ([facility]/HCC) BASIC METABOLIC PANEL Routine 05/08/2023 11:04 AM EDT Diabetic polyneuropathy associated with type 2 diabetes mellitus ([facility]/HCC) documented in this encounter Results * (ABNORMAL) Hemoglobin A1c (05/08/2023 11:04 AM EDT) Hemoglobin A1c 6.1(H) <6.0 % [facility] Comment:Hemoglobin A1C Refer ence Range Adults: 4.8 - 6.0 % Non diabetic: < 6.0 % Goal: < 7.0 %Additional Action Suggested: > 8.0 %Note: Hemoglobin A1c results are invalid for patients with abnormal amounts of HbF. Blood transfusions may impact the HbA1c concentration in the patient sample. Estimated Average Glucose 128 mg/dL [facility] Comment:eAG = Estimated ave rage glucose which is %A1C expressed asaverage glucose, using the formula of the K3T-YkvdtpxBvmjimu Glucose study (ADAG), Diabetes Care, Vol.31,#8,Mar. 2007 Blood Venous blood specimen / Unknown 05/08/2023 11:04 AM EDT 05/08/2023 1:46 PM EDT Rolanda Thakur MD LAB BLOOD ORDERABLES Final Result Performing Organization Address City/[facility]/ZIP Co de Phone Number [facility] [address] [place] [phone] * Vitamin D, 25-Hydroxy, Total, Immunoassay (05/08/2023 11:04 AM EDT) Vitamin D 25-OH Total 84.6 >30 ng/mL [facility] Comment:Health Based Referen ce Values*< 20 ng/mL Oqrwdtscu00-77 ng/mL Insufficient> 30 ng/mL Sufficient*Arabella MCALLISTER. N [...] Final Result Performing Organization Address [facility] Co de Phone Number [facility] [address] [place] [phone] * Hepatic Function Panel (05/08/2023 11:04 AM EDT) Bilirubin, Total 0.5 0.0 - 1.0 mg/dL [facility] Bilirubin, Direct 0.2 0.0 - 0.5 mg/dL [facility] Aspartate Amino Transferase 22 5 - 31 U/L [facility] Alanine Aminotransferase 18 0 - 31 U/L [facility] Total Protein 7.1 6.5 - 8.0 g/dL [facility] Albumin Level 4.4 3.5 - 5.0 g/dL [facility] Alkaline Phosphatase 70 39 - 117 U/L [facility] Blood Venous blood specimen / Unknown 05/08/2023 11:04 AM EDT 05/08/2023 1:47 PM EDT us Rolanda Thakur MD LAB BLOOD ORDERABLES Final Result [facility] [address] [place] [phone] * (ABNORMAL) Lipid Panel, Standard (05/08/2023 11:04 AM EDT) Triglycerides 110 <150 mg/dL [facility] Comment:Desirable Triglyceri de: less than 150 mg/dLBorderline High Triglyceride 150-199 mg/dLHigh Triglyceride: 200-499 mg/dLVery High Triglyceride: greater than or equal to 5OO mg/dL Cholesterol 198 <200 mg/dL [facility] Comment:Desirable Cholestero l: less than 200 mg/dLBorderline High Cholesterol: 200-239 mg/dLHigh Cholesterol: greater than 239 mg/dL LDL Cholesterol Calculated 121(H) <100 mg/dL [facility] Comment:Desirable LDL: less than 100 mg/dLNear Optimal/Above Optimal LDL: 110- 129 mg/dLBorderline High LDL: 130-159 mg/dLHigh LDL: 160-189 mg/dLVery High LDL: greater than or equal to 190 mg/dL HDL Cholesterol 55 >40 mg/dL [facility] Comment:Desirable HDL: great er than 40 mg/dL Note: This HDL assay may give artificially low results in patients with liver disease. Blood Venous blood specimen / Unknown 05/08/2023 11:04 AM EDT 05/08/2023 1:47 PM EDT Rolanda Thakur MD LAB BLOOD ORDERABLES Final Result Performing Organization Address City/[facility]/ZIP Co de Phone Number [facility] [address] [place] [phone] * TSH W/Reflex to FT4 (05/08/2023 11:04 AM EDT) TSH reflex Free T4 0.53 0.32 - 4.0 uIU/mL [facility] Blood 05/08/2023 11:0 4 AM EDT 05/08/2023 1:47 PM EDT us Rolanda Thakur MD LAB BLOOD ORDERABLES Final Result Performing Organization Address [facility] Co de Phone Number [facility] [address] [place] [phone] [phone] * (ABNORMAL) Basic Metabolic Panel (05/08/2023 11:04 AM EDT) Sodium 137 135 - 145 mmol/L [facility] Potassium 4.4 3.3 - 5.1 mmol/L [facility] Chloride 108 96 - 108 mmol/L [facility] Carbon Dioxide 24 22 - 29 mmol/L [facility] Anion Gap 9(L) 12 - 20 [facility] Urea Nitrogen (BUN) 14 9 - 16 mg/dL [facility] Creatinine, Serum 1.03 0.5 - 1.4 mg/dL [facility] Estimated Glomerular Filt Rate 53 [facility] Comment:NOTE: For -Am erican individuals, multiply the result by 1.210.Chronic Kidney Disease: Estimated GFR < 60 mL/min/1.24b9Zxukwt Kidney Disease: Estimated GFR < 15 mL/min/1.73m2 Glucose 208(H) 60 - 115 mg/dL [facility] Calcium 10.1 8.4 - 10.2 mg/dL [facility] Blood Venous blood specimen / Unknown 05/08/2023 11:04 AM EDT 05/08/2023 1:47 PM EDT Rolanda Thakur MD LAB BLOOD ORDERABLES Final Result [facility] [address] [place] [phone] [phone] * (ABNORMAL) CBC auto differential (05/08/2023 11:04 AM EDT) White Blood Count 8.6 4.8 - 10.8 X10*3/uL [facility] Red Blood Count 4.27 4.20 - 5.50 X10*6/uL [facility] Hemoglobin 12.6 12.0 - 16.0 g/dl [facility] Hematocrit 37.9 37.0 - 47.0 % [facility] Mean Corpuscular Volume 88.8 80.0 - 98.0 fL [facility] Mean Corpuscular Hemoglobin 29.5 27.0 - 33.0 pg [facility] Mean Corpuscular HGB Conc 33.2 31.0 - 35.0 g/dl [facility] Red Cell Distribution Width 13.0 11.0 - 16.0 % [facility] Platelet Count 266 160 - 400 X10*3/uL [facility] Mean Platelet Volume 9.5 9.4 - 12.3 fL [facility] Neutrophils Percent Auto 50.3 45 - 73 % [facility] Imm Gran Pct Auto 0.3 0.0 - 0.4 % [facility] Lymphocytes Percent Auto 33.4 20 - 40 % [facility] Monocytes Percent Auto 7.0 2 - 11 % [facility] Eosinophils Percent Auto 7.8(H) 0 - 4 % [facility] Basophils Percent Auto 1.2 0 - 2 % [facility] NRBC Pct Auto 0.0 0.0 - 0.2 /100WBC [facility] Neutrophils Absolute Auto 4.3 2.0 - 8.3 x10*3/uL [facility] Imm Gran Abs Auto 0.03 0.00 - 0.03 X10*3/uL [facility] Lymphocytes Absolute Auto 2.9 1.2 - 4.9 X10*3/uL [facility] Monocytes Absolute Auto 0.6 0.1 - 1.2 X10*3/uL [facility] Eosinophils Absolute Auto 0.7(H) 0.0 - 0.4 X10*3/uL [facility] Basophils Absolute Auto 0.1 0.0 - 0.2 X10*3/uL [facility] NRBC Abs Auto 0.000 0.0 - 0.012 X10*3/uL [facility] Blood Venous blood specimen / Unknown 05/08/2023 11:04 AM EDT 05/08/2023 1:46 PM EDT Rolanda Thakur MD LAB BLOOD ORDERABLES Final Result [facility] [address] [place] [phone] [phone] documented in this encounter Visit Diagnoses Diagnosis Diabetic polyneuropathy associated with type 2 diabetes mellitus (HCC)- Primary documented in this encounter Care Teams Professor Of Journalism Relationship Specialty Start Date End Date Rolanda Thakur MD [address] [place] [address] PCP - General Internal Medicine 09/19/22 documented as of this encounter
--- OUTSIDE RECORDS SUMMARY | 2025-06-18 07:49 | XMS_ITS | Encounter Summary ---
Author Organization [employer] Address [address] 7 [place] [address] Care Team Providers Care Internship Name Role Phone Rolanda Thakur MD Primary Care Provider +[phone] Encounter Details Date Type Department Care Team ([facility] Contact Info) Description 02/05/2025 Orders Only [facility] CHC MED & PEDS [address] [place] [address] Rolanda Thakur MD 505 [place] [address] Acquired hypothyroidism Social History Tobacco Use Types [...] documented as of this encounter Care Teams Internship Relationship Specialty Start Date End Date Rolanda Thakur MD [address] [place] [address] PCP - General Internal Medicine 09/19/22 documented as of this encounter
--- OUTSIDE RECORDS SUMMARY | 2025-06-18 07:49 | XMS_ITS | Encounter Summary ---
Author Organization [employer] Address [address] [place] [address] Care Team Providers Care Churn Operator Name Role Phone Rolanda Thakur MD Primary Care Provider +1- [phone] Reason for Visit * Reason Onset Date Comments Med Refill 02/17/2025 Encounter Details Date Type Department Care Team ([facility] st Contact Info) Description 02/17/2025 Refill [facility] CHC MED & PEDS [address] [place] [address] Rolanda Thakur MD 505 [place] [address] Type 2 diabetes mellitus without complication, without [...] documented as of this encounter Care Teams Churn Operator Relationship Specialty Start Date End Date Rolanda Thakur MD [address] [place] [address] PCP - General Internal Medicine 09/19/22 documented as of this encounter
--- OUTSIDE RECORDS SUMMARY | 2025-06-18 07:49 | XMS_ITS | Encounter Summary ---
Author Organization [employer] Address [address] [place] [address] 7 [place] [address] Care Team Providers Care Business Assistant Name Role Phone Rolanda Thakur MD Primary Care Provider +1- [phone] Encounter Details Date Type Department Care Team ([facility] st Contact Info) Description 03/06/2025 Orders Only [facility] CHC MED & PEDS [address] [place], [place] [phone] Rolanda Thakur MD 505 [place] [address] Type 2 diabetes mellitus without complication, without long-term current use of insulin ([facility]) (Primary Dx) Social History Tobacco Use Types [...] as of this encounter Care Teams Business Assistant Relationship Specialty Start Date End Date Rolanda Thakur MD 505 [place] [address] PCP - General Internal Medicine 09/19/22 documented as of this encounter
--- OUTSIDE RECORDS SUMMARY | 2025-06-18 07:49 | XMS_ITS | Encounter Summary ---
Author Organization [employer] Address [address] [address] Care Team Providers Care Color Depositing Machine Tender Name Role Phone Rolanda Thakur MD Primary Care Provider +1- [phone] Reason for Visit * Reason Onset Date Comments call back / orders 04/22/2025 Encounter Details Date Type Department Care Team ([facility] st Contact Info) Description 04/22/2025 Telephone [facility] MEDICINE [address] [place] [address] Rolanda Thakur MD 505 [place], [place] [phone] call back / orders Social History Tobacco [...] message send by pt Contact pt at [phone] documented in this encounter Plan of Treatment Not on file documented as of this encounter Visit Diagnoses Not on filedocumented in this encounter Additional Health Concerns Assessment Noted Time PHQ-9 Depression Total Score: 2 05/13/20 24 9:24 AM EDT documented as of this encounter Care Teams Color Depositing Machine Tender Relationship Specialty Start Date End Date Rolanda Thakur MD [address] [place] [address] PCP - General Internal Medicine 09/19/22 documented as of this encounter
--- OUTSIDE RECORDS SUMMARY | 2025-06-18 07:49 | XMS_ITS | Encounter Summary ---
Author Organization [employer] Address 75 [facility] 7 [place] [address] Care Team Providers Care Cycle Analyst Name Role Phone Rolanda Thakur MD Primary Care Provider +1- [phone] Encounter Details Date Type Department Care Team ([facility] Contact Info) Description 12/02/2024 Telephone [facility] CHC MED & PEDS [address] [place], [place] [phone] Rolanda Thakur MD 505 [place] [address] Social History Tobacco Use Types Packs/Day Years [...] documented as of this encounter Care Teams Cycle Analyst Relationship Specialty Start Date End Date Rolanda Thakur MD [address] [place] [address] PCP - General Internal Medicine 09/19/22 documented as of this encounter
--- OUTSIDE RECORDS SUMMARY | 2025-06-18 07:50 | XMS_ITS | Encounter Summary ---
Author Organization [employer] Address [address] [address] Care Team Providers Care Hand Router Operator Name Role Phone Rolanda Thakur MD Primary Care Provider +1- [phone] Reason for Visit * Reason Onset Date Comments Medication Question 04/04/2024 Encounter Details Date Type Department Care Team ([facility] st Contact Info) Description 04/04/2024 Telephone [facility] MEDICINE [address] [place] [address] Rolanda Thakur MD 505 [place], [place] [phone] Medication Question Social History Tobacco Use Types [...] on filedocumented in this encounter Care Teams Hand Router Operator Relationship Specialty Start Date End Date Rolanda Thakur MD [address] [place] [address] PCP - General Internal Medicine 09/19/22 documented as of this encounter
--- OUTSIDE RECORDS SUMMARY | 2025-06-18 07:50 | XMS_ITS | Encounter Summary ---
Author Organization [employer] Address [address] [place] [address] Care Team Providers Care Machine Clothing Man Name Role Phone Rolanda Thakur MD Primary Care Provider +1- [phone] Encounter Details Date Type Department Care Team ([facility] Contact Info) Description 05/22/2024 Orders Only [facility] CHC MED & PEDS [address] [place] [address] Rolanda Thakur MD 505 [place] [address] Social History Tobacco Use Types Packs/Day Years [...] as of this encounter Care Teams Machine Clothing Man Relationship Specialty Start Date End Date Rolanda Thakur MD [address] [place] [address] PCP - General Internal Medicine 09/19/22 documented as of this encounter
--- OUTSIDE RECORDS SUMMARY | 2025-06-18 07:50 | XMS_ITS | Encounter Summary ---
Author Organization [employer] Address [address] [address] Care Team Providers Care English As A Second Language Instructor Name Role Phone Rolanda Thakur MD Primary Care Provider +1- [phone] Reason for Visit * Reason Onset Date Comments Durable Medical Equipment 04/29/2024 Encounter Details Date Type Department Care Team (Late st Contact Info) Description 04/29/2024 Telephone [facility] MEDICINE [address] [place] [address] Rolanda Thakur MD [address] [place], [place] [phone] Durable Medical Equipment Social History Tobacco Use [...] - 04/29/2024 3:34 PM EDT Tc from [facility] pharmacy stating pt is requesting blood pressure monitor but they don't have a script. If any questions you can contact [facility] at [phone]. documented in this encounter Plan of Treatment Not on file documented as of this encounter Visit Diagnoses Not on filedocumented in this encounter Care Teams English As A Second Language Instructor Relationship Specialty Start Date End Date Rolanda Thakur MD [address] [place] [address] PCP - General Internal Medicine 09/19/22 documented as of this encounter
--- OUTSIDE RECORDS SUMMARY | 2025-06-18 07:50 | XMS_ITS | Encounter Summary ---
Author Organization [employer] Address [address] [place] [address] Care Team Providers Care Insurance Verifier Name Role Phone Rolanda Thakur MD Primary Care Provider +1- [phone] Reason for Visit * Reason Onset Date Comments Med Refill 03/20/2025 Encounter Details Date Type Department Care Team ([facility] st Contact Info) Description 03/20/2025 Refill [facility] CHC MED & PEDS [address] [place] [address] Rolanda Thakur MD 505 [place] [address] Social History Tobacco Use Types Packs/Day Years [...] as of this encounter Care Teams Insurance Verifier Relationship Specialty Start Date End Date Rolanda Thakur MD [address] [place] [address] PCP - General Internal Medicine 09/19/22 documented as of this encounter
--- OUTSIDE RECORDS SUMMARY | 2025-06-18 07:50 | XMS_ITS | Encounter Summary ---
Author Organization [employer] Address [address] [place] [address] Care Team Providers Care Environmental Adviser Name Role Phone Rolanda Thakur MD Primary Care Provider +1- [phone] Reason for Visit * Reason Onset Date Comments Med Refill 04/04/2024 Encounter Details Date Type Department Care Team (Late st Contact Info) Description 04/04/2024 Telephone [facility] MEDICINE [address] [place] [address] Rolanda Thakur MD 505 [place], [place] [phone] Med Refill Social History Tobacco Use Types [...] 5 mg tablets To be sent to: [facility] documented in this encounter Plan of Treatment Not on file documented as of this encounter Visit Diagnoses Diagnosis Anxiety- Primary Anxiety state, unspecified documented in this encounter Care Teams Environmental Adviser Relationship Specialty Start Date End Date Rolanda Thakur MD 505 [place] [address] PCP - General Internal Medicine 09/19/22 documented as of this encounter
--- OUTSIDE RECORDS SUMMARY | 2025-06-18 07:50 | XMS_ITS | Encounter Summary ---
Author Organization [employer] Address [address] [place] [address] Care Team Providers Care Forming Acid Dumper Name Role Phone Rolanda Thakur MD Primary Care Provider +1- [phone] Encounter Details Date Type Department Care Team ([facility] st Contact Info) Description 05/02/2024 Orders Only [facility] CHC MED & PEDS 505 [place], [place] [phone] Rolanda Thakur MD 505 [place] [address] Anxiety (Primary Dx) Social History Tobacco Use [...] unspecified documented in this encounter Care Teams Forming Acid Dumper Relationship Specialty Start Date End Date Rolanda Thakur MD 505 [place] [address] PCP - General Internal Medicine 09/19/22 documented as of this encounter
--- OUTSIDE RECORDS SUMMARY | 2025-06-18 07:50 | XMS_ITS | Encounter Summary ---
Author Organization [employer] Address 75 [facility] 7t [place] [address] Care Team Providers Care Dress Cap Maker Name Role Phone Rolanda Thakur MD Primary Care Provider +1 [phone] Encounter Details Date Type Department Care Team ([facility] st Contact Info) Description 12/18/2024 Orders Only [facility] CHC MED & PEDS [address] [place] [address] ProviderChema MD Social History Tobacco Use Types [...] documented as of this encounter Care Teams Dress Cap Maker Relationship Specialty Start Date End Date Rolanda Thakur MD [address] [place] [address] PCP - General Internal Medicine 09/19/22 documented as of this encounter
--- OUTSIDE RECORDS SUMMARY | 2025-06-18 07:50 | XMS_ITS | Encounter Summary ---
Author Organization [employer] Address [address] [place] [address] 7 [place] [address] Care Team Providers Care Human Resources Operations Coordinator Name Role Phone Rolanda Thakur MD Primary Care Provider +1- [phone] Encounter Details Date Type Department Care Team ([facility] st Contact Info) Description 05/01/2025 Orders Only [facility] CHC MED & PEDS [address] [place] [address] Rolanda Thakur MD [address] [place] [address] Recent urinary tract infection (Primary Dx) Social [...] EDT 05/10/2025 11:44 AM EDT Comment:CC Narrative [facility] - 05/11/2025 8:42 AM EDT Urine Culture No growth. Specimen Source: Urine clean catch us Rolanda Thakur MD LAB MICROBIOLOGY - GENERAL ORDERABLES Final Result [facility] [address] [place] [address] [phone] documented in this encounter Visit Diagnoses Diagnosis Recent urinary tract infection- Primary documented in this encounter Additional Health Concerns Assessment Noted Time PHQ-9 Depression Total Score: 2 05/13/20 24 9:24 AM EDT documented as of this encounter Care Teams Human Resources Operations Coordinator Relationship Specialty Start Date End Date Rolanda Thakur MD [address] [place] [address] PCP - General Internal Medicine 09/19/22 documented as of this encounter
--- OUTSIDE RECORDS SUMMARY | 2025-06-18 07:50 | XMS_ITS | Encounter Summary ---
Author Organization [employer] Address [address] [place] [address] 7 [place] [address] Care Team Providers Care Billing And Accounting Staff Assistant Name Role Phone Rolanda Thakur MD Primary Care Provider +1 [phone] Encounter Details Date Type Department Care Team ([facility] st Contact Info) Description 11/20/2024 Orders Only [facility] CHC MED & PEDS [address] [place] [address] Rolanda Thakur MD 505 [place] [address] Type 2 diabetes mellitus without complication, without long-term current use of insulin ([facility]) (Primary Dx); UTI symptoms Social History [...] long-term current use of insulin ([facility]) UTI symptoms CBC WITH AUTO DIFFERENTIAL Routine 11/23/2024 9:00 AM EDT Type 2 diabetes mellitus without complication, without long-term current use of insulin ([facility]) BASIC METABOLIC PANEL Routine 11/23/2024 9:00 AM EDT Type 2 diabetes mellitus without complication, without long-term current use of insulin ([facility]) documented in this encounter Results * Culture, Urine, Routine (11/23/2024 9:05 AM EDT) Urine Urine specimen obtained by clean catch procedure / Unknown 11/23/2024 9:05 AM EDT 11/23/2024 11:26 AM EDT Comment:[facility] - 11/24/2024 11:22 AM EDT Urine Culture Report Result Urine Culture 10,000 to 50,000 cfu/ml Urine Culture Mixed bacterial hailey characteristic of Urine Culture urogenital contamination. Specimen Source: Urine clean catch us Rolanda Thakur MD LAB MICROBIOLOGY - GENERAL ORDERABLES Final Result [facility] [address] [place] [address] [phone] * (ABNORMAL) CBC auto differential (11/23/2024 9:00 AM EDT) White Blood Count 8.5 4.8 - 10.8 X10*3/uL [facility] Red Blood Count 4.27 4.20 - 5.50 X10*6/uL [facility] Hemoglobin 12.8 12.0 - 16.0 g/dl [facility] Hematocrit 37.0 37.0 - 47.0 % [facility] Mean Corpuscular Volume 86.7 80.0 - 98.0 fL [facility] Mean Corpuscular Hemoglobin 30.0 27.0 - 33.0 pg [facility] Mean Corpuscular HGB Conc 34.6 31.0 - 35.0 g/dl [facility] Red Cell Distribution Width 13.1 11.0 - 16.0 % [facility] Platelet Count 269 160 - 400 X10*3/uL [facility] Mean Platelet Volume 9.1(L) 9.4 - 12.3 fL [facility] Neutrophils Percent Auto 64.4 45 - 73 % [facility] Imm Gran Pct Auto 0.4 0.0 - 0.4 % [facility] Lymphocytes Percent Auto 23.8 20 - 40 % [facility] Monocytes Percent Auto 5.9 2 - 11 % [facility] Eosinophils Percent Auto 4.7(H) 0 - 4 % [facility] Basophils Percent Auto 0.8 0 - 2 % [facility] NRBC Pct Auto 0.0 0.0 - 0.2 /100WBC [facility] Neutrophils Absolute Auto 5.4 2.0 - 8.3 x10*3/uL [facility] Imm Gran Abs Auto 0.03 0.00 - 0.03 X10*3/uL [facility] Lymphocytes Absolute Auto 2.0 1.2 - 4.9 X10*3/uL [facility] Monocytes Absolute Auto 0.5 0.1 - 1.2 X10*3/uL [facility] Eosinophils Absolute Auto 0.4 0.0 - 0.4 X10*3/uL [facility] Basophils Absolute Auto 0.1 0.0 - 0.2 X10*3/uL [facility] NRBC Abs Auto 0.000 0.0 - 0.012 X10*3/uL [facility] Blood Venous blood specimen / Unknown 11/23/2024 9:00 AM EDT 11/23/2024 11:37 AM EDT us Rolanda Thakur MD LAB BLOOD ORDERABLES Final Result [facility] [address] [place] [phone] * (ABNORMAL) Basic Metabolic Panel (11/23/2024 9:00 AM EDT) Sodium 135 135 - 145 mmol/L [facility] Potassium 4.4 3.3 - 5.1 mmol/L [facility] Chloride 103 96 - 108 mmol/L [facility] Carbon Dioxide 24 22 - 29 mmol/L [facility] Anion Gap 12 12 - 20 [facility] Urea Nitrogen (BUN) 21(H) 9 - 16 mg/dL [facility] Creatinine, Serum 0.89 0.5 - 1.4 mg/dL [facility] Estimated Glomerular Filt Rate >60 [facility] Comment:Chronic Kidney Disea se: Estimated GFR < 60 mL/min/1.31t2Gyxmrz Kidney Disease: Estimated GFR < 15 mL/min/1.73m2 Glucose 161(H) 60 - 115 mg/dL [facility] Calcium 10.2 8.4 - 10.2 mg/dL [facility] Blood Venous blood specimen / Unknown 11/23/2024 9:00 AM EDT 11/23/2024 11:37 AM EDT Rolanda Thakur MD LAB BLOOD ORDERABLES Final Result [facility] [address] [place] [address] [phone] documented in this encounter Visit Diagnoses Diagnosis Type 2 diabetes mellitus without complication, without long-term current use of insulin (HCC)- Primary UTI symptoms documented in this encounter Additional Health Concerns Assessment Noted Time PHQ-9 Depression Total Score: 2 05/13/20 24 9:24 AM EDT documented as of this encounter Care Teams Billing And Accounting Staff Assistant Relationship Specialty Start Date End Date Rolanda Thakur MD [address] [place] [address] PCP - General Internal Medicine 09/19/22 documented as of this encounter
--- OUTSIDE RECORDS SUMMARY | 2025-06-18 07:50 | XMS_ITS | Encounter Summary ---
Author Organization [employer] Address [address] [place] [address] [place] [address] Care Team Providers Care Billing Coordinator Name Role Phone Rolanda Thakur MD Primary Care Provider +1- [phone] Encounter Details Date Type Department Care Team ([facility] Contact Info) Description 04/30/2025 Results Follow-Up [facility] CHC MED & PEDS [address] [place] [address] Rolanda Thakur MD [address] [place] [address] XR Hand 3+ Views Right, XR Hand [...] as of this encounter Care Teams Billing Coordinator Relationship Specialty Start Date End Date Rolanda Thakur MD [address] [place] [address] PCP - General Internal Medicine 09/19/22 documented as of this encounter
--- OUTSIDE RECORDS SUMMARY | 2025-06-18 07:50 | XMS_ITS | Encounter Summary ---
Author Organization [employer] Address [address] [place] [address] Care Team Providers Care Teacher'S Assistant Name Role Phone Rolanda Thakur MD Primary Care Provider +1- [phone] Reason for Visit * Reason Onset Date Comments EKG 06/18/2024 Encounter Details Date Type Department Care Team ([facility] Contact Info) Description 06/18/2024 Telephone [facility] CHC MED & PEDS [address] [place] [address] Rolanda Thakur MD [address] [place] [address] EKG Social History Tobacco Use Types Packs/Day [...] Given pt's symptoms, she would need a [facility] appointment to get the notes for our telecommunications specialist to process the referral. * Telephone [...] should seek a neurology referral. She states elevator technician advised her to get a referral due to procedure done for cataracts might have struck a nerve and that might be were the headaches are coming from. * Telephone Encounter - Annabella Peña - 06/18/2024 4:03 PM EDT Tc from pt requesting status on order for EKG. Contact Paulette at [phone] documented in this encounter Plan of Treatment Not on file documented as of this encounter Visit Diagnoses Not on filedocumented in this encounter Additional Health Concerns Assessment Noted Time PHQ-9 Depression Total Score: 2 05/13/20 24 9:24 AM EDT documented as of this encounter Care Teams Teacher'S Assistant Relationship Specialty Start Date End Date Rolanda Thakur MD [address] [place] [address] PCP - General Internal Medicine 09/19/22 documented as of this encounter
--- OUTSIDE RECORDS SUMMARY | 2025-06-18 07:50 | XMS_ITS | Encounter Summary ---
Author Organization [employer] Address [address] [place] [address] Care Team Providers Care Manager Lighting Name Role Phone Rolanda Thakur MD Primary Care Provider [phone]- [phone] Reason for Visit * Reason Onset Date Comments Referral 05/18/2023 Encounter Details Date Type Department Care Team ([facility] st Contact Info) Description 05/18/2023 Telephone [facility] CHC MED & PEDS [address] [place] [address] Rolanda Thakur MD [address] [place] [address] Referral Social History Tobacco Use Types Packs/Day [...] used to see Dr. Chad Dempsey from [facility] butnow the office doesn't take [...] advise. Also sent you her response from [employer] Thanks. * Telephone Encounter - Annabella Peña [...] to Specialty: (EMG) Dr nolasco Date&Time: N/a Superintendent Stevedoring: n/a Please call pt to clarify documented in this encounter Plan of Treatment Not on file documented as of this encounter Visit Diagnoses Not on filedocumented in this encounter Care Teams Manager Lighting Relationship Specialty Start Date End Date Rolanda Thakur MD [address] [place] [address] PCP - General Internal Medicine 09/19/22 documented as of this encounter
--- OUTSIDE RECORDS SUMMARY | 2025-06-18 07:50 | XMS_ITS | Encounter Summary ---
Author Organization [employer] Address [address] [place] [address] 7 [place] [address] Care Team Providers Care Supervisor Extrusion Name Role Phone Rolanda Thakur MD Primary Care Provider +1- [phone] Reason for Visit * Reason Onset Date Comments Med Refill 12/26/2024 Encounter Details Date Type Department Care Team ([facility] st Contact Info) Description 12/26/2024 Refill [facility] CHC MED & PEDS [address] [place] [address] Maren Hough MD [address] [place] [address] Social History Tobacco Use Types Packs/Day Years [...] as of this encounter Care Teams Supervisor Extrusion Relationship Specialty Start Date End Date Rolanda Thakur MD [address] [place] [address] PCP - General Internal Medicine 09/19/22 documented as of this encounter
--- OUTSIDE RECORDS SUMMARY | 2025-06-18 07:50 | XMS_ITS | Encounter Summary ---
Author Organization [employer] Address [address] [place] [address] Care Team Providers Care Human Service Coordinator Name Role Phone Rolanda Thakur MD Primary Care Provider +1- [phone] Reason for Visit * Reason Onset Date Comments Med Refill 03/31/2025 Encounter Details Date Type Department Care Team ([facility] st Contact Info) Description 03/31/2025 Refill [facility] CHC MED & PEDS [address] [place] [address] Rolanda Thakur MD [address] [place] [address] Panic attack; Anxiety Social History Tobacco Use [...] as of this encounter Care Teams Human Service Coordinator Relationship Specialty Start Date End Date Rolanda Thakur MD [address] [place] [address] PCP - General Internal Medicine 09/19/22 documented as of this encounter
--- OUTSIDE RECORDS SUMMARY | 2025-06-18 07:50 | XMS_ITS | Encounter Summary ---
Author Organization [employer] Address [address] [place] [address] Care Team Providers Care Procurement Services Manager Name Role Phone Rolanda Thakur MD Primary Care Provider +1- [phone] Reason for Visit * Reason Comments Med Refill Encounter Details Date Type Department Care Team ([facility] st Contact Info) Description 05/20/2024 Refill [facility] CHC MED & PEDS [address] [place] [address] Rolanda Thakur MD [address] [place] [address] Diabetic polyneuropathy associated with type 2 diabetes mellitus ([facility]) Social History Tobacco Use Types [...] documented as of this encounter Care Teams Procurement Services Manager Relationship Specialty Start Date End Date Rolanda Thakur MD [address] [place] [address] PCP - General Internal Medicine 09/19/22 documented as of this encounter
--- OUTSIDE RECORDS SUMMARY | 2025-06-18 07:50 | XMS_ITS | Encounter Summary ---
Author Organization [employer] Address [address] [place] [place] [address] Care Team Providers Care Fish And Game Club Manager Name Role Phone Rolanda Thakur MD Primary Care Provider +1- [phone] Reason for Visit * Reason Comments Med Refill Encounter Details Date Type Department Care Team ([facility] st Contact Info) Description 02/05/2025 Refill [facility] MEDICINE [address] [place] [address] Rolanda Thakur MD [address] [place], [place] [phone] Acquired hypothyroidism Social History Tobacco Use Types [...] her Thyroid Medication. Pt states her diabetic split and drum room supervisor changed the dosage to 1.12. documented in this encounter Plan of Treatment Not on file documented as of this encounter Visit Diagnoses Diagnosis Acquired hypothyroidism Unspecified hypothyroidism documented in this encounter Additional Health Concerns Assessment Noted Time PHQ-9 Depression Total Score: 2 05/13/20 24 9:24 AM EDT documented as of this encounter Care Teams Fish And Game Club Manager Relationship Specialty Start Date End Date Rolanda Thakur MD [address] [place] [address] PCP - General Internal Medicine 09/19/22 documented as of this encounter
--- OUTSIDE RECORDS SUMMARY | 2025-06-18 07:50 | XMS_ITS | Clinical Summary ---
Author Organization [facility] Address [address] [place], [place] [address] Care Team Providers Care Wellness Nurse Name Role Phone Rahel Hough MD Primary Care Provider [phone] Allergies Active Allergy Reactions Criticality Noted Date [...] mg by mouth daily. 0 09/09/2020 Active [place]-3 Fatty Acids (FISH OIL) 1000 MG CAPS [...] age to complete this topic Care Teams Wellness Nurse Relationship Specialty Start Date End Date Rahel Hough MD [address] [place] [address] PCP - General Internal Medicine 11/20/20
--- OUTSIDE RECORDS SUMMARY | 2025-06-18 07:50 | XMS_ITS | Encounter Summary ---
Author Organization [employer] Address [address] [address] Care Team Providers Care Clinical Quality Manager Name Role Phone Rolanda Thakur MD Primary Care Provider +1- [phone] Reason for Visit * Reason Onset Date Comments Nurse Triage 04/04/2024 Encounter Details Date Type Department Care Team ([facility] st Contact Info) Description 04/04/[address] [facility] MEDICINE [address] [place] [address] Rolanda Thakur MD [address] [place], [place] [phone] Nurse Triage Social History Tobacco Use Types [...] pt. She states that she went to [facility] for Anxiety panic attacks on 03/30/24- [...] got treated horribly by the staff at [facility] and she will never go there again. [...] care coordinators so that they can get [facility] ED notes from 03/30/24 Ed visit into pt. Chart and any labs, EKG's etc.. into pt. Chart for visit on 04/05/24 at 315pm. Protocol Used: Anxiety and Panic Attack (Adult) Protocol-Based Disposition: Go to ED/[facility] Now (or to Office with PCP Approval)- [...] filedocumented in this encounter Care Teams Clinical Quality Manager Relationship Specialty Start Date End Date Rolanda Thakur MD [address] [place] [address] PCP - General Internal Medicine 09/19/22 documented as of this encounter
--- OUTSIDE RECORDS SUMMARY | 2025-06-18 07:50 | XMS_ITS | Encounter Summary ---
Author Organization [employer] Address [address] [place] [address] Care Team Providers Care Knife Edger Name Role Phone Rolanda Thakur MD Primary Care Provider [phone]- [phone] Reason for Visit * Reason Onset Date Comments Med Refill 05/08/2025 Encounter Details Date Type Department Care Team ([facility] st Contact Info) Description 05/08/2025 Refill [facility] CHC MED & PEDS [address] [place] [address] Rolanda Thakur MD [address] [place] [address] Recent urinary tract infection Social History Tobacco [...] documented as of this encounter Care Teams Knife Edger Relationship Specialty Start Date End Date Rolanda Thakur MD [address] [place] [address] PCP - General Internal Medicine 09/19/22 documented as of this encounter
--- OUTSIDE RECORDS SUMMARY | 2025-06-18 07:50 | XMS_ITS | Encounter Summary ---
Author Organization [employer] Address [address] [address] Care Team Providers Care Freight Handler Name Role Phone Rolanda Thakur MD Primary Care Provider [phone]- [phone] Reason for Visit * Reason Onset Date Comments Nurse Triage 08/05/2024 Encounter Details Date Type Department Care Team ([facility] st Contact Info) Description 08/05/2024 Telephone [facility] MEDICINE [address] [place] [address] Rolanda Thakur MD [address] [place], [place] [phone] Nurse Triage Social History Tobacco Use Types [...] 1145am. Pt is advised to come to [facility] today which is open till 8pm and also open 830am -800pm tomorrow. Pt agrees with this disposition. Pt will [facility] to come to [facility] todaybut, if unable will come tomorrow. [...] documented as of this encounter Care Teams Freight Handler Relationship Specialty Start Date End Date Rolanda Thaukr MD [address] [place] [address] PCP - General Internal Medicine 09/19/22 documented as of this encounter
--- OUTSIDE RECORDS SUMMARY | 2025-06-18 07:50 | XMS_ITS | Encounter Summary ---
Author Organization [employer] Address [address] [place] [address] Care Team Providers Care Sports Apparel Internship Name Role Phone Rolanda Thakur MD Primary Care Provider [phone]- [phone] Reason for Visit * Reason Onset Date Comments Referral 06/13/2024 Encounter Details Date Type Department Care Team ([facility] st Contact Info) Description 06/13/2024 Telephone [facility] MEDICINE [address] [place] [address] Rolanda Thakur MD [address] [place], [place] [phone] Referral Social History Tobacco Use Types Packs/Day [...] as of this encounter Care Teams Sports Apparel Internship Relationship Specialty Start Date End Date Rolanda Thakur MD [address] [place] [address] PCP - General Internal Medicine 09/19/22 documented as of this encounter
--- OUTSIDE RECORDS SUMMARY | 2025-06-18 07:50 | XMS_ITS | Encounter Summary ---
Author Organization [employer] Address [address] [place] [address] Care Team Providers Care Eyeglass Inspector Name Role Phone Rolanda Thakur MD Primary Care Provider [phone]- [phone] Reason for Visit * Reason Onset Date Comments Medication Question 12/08/2022 Encounter Details Date Type Department Care Team ([facility] st Contact Info) Description 12/08/2022 Telephone [facility] CHC MED & PEDS [address] [place], [place] [phone] Rolanda Thakur MD [address] [place] [address] Medication Question Social History Tobacco Use Types [...] on filedocumented in this encounter Care Teams Eyeglass Inspector Relationship Specialty Start Date End Date Rolanda Thakur MD [address] [place] [address] PCP - General Internal Medicine 09/19/22 documented as of this encounter
--- OUTSIDE RECORDS SUMMARY | 2025-06-18 07:50 | XMS_ITS | Encounter Summary ---
Author Organization [employer] Address 75 [facility] 7 [place] [address] Care Team Providers Care Centrex Radio Operator Name Role Phone Rolanda Thakur MD Primary Care Provider [phone] Encounter Details Date Type Department Care Team ([facility] Contact Info) Description 05/29/2025 Results Follow-Up [facility] MEDICINE [address] [place] [address] Kelsie Genao NP [address] [place] [address] Urinalysis Complete Social History Tobacco Use Types [...] documented as of this encounter Care Teams [employer]x Radio Operator Relationship Specialty Start Date End Date Rolanda Thakur MD [address] [place] [address] PCP - General Internal Medicine 09/19/22 documented as of this encounter
--- OUTSIDE RECORDS SUMMARY | 2025-06-18 07:50 | XMS_ITS | Encounter Summary ---
Author Organization [employer] Address [address] [place] [address] Care Team Providers Care Cytogenetics Laboratory Manager Name Role Phone Rolanda Thakur MD Primary Care Provider +1- [phone] Reason for Visit * Reason Onset Date Comments Med Refill 04/16/2025 Encounter Details Date Type Department Care Team ([facility] st Contact Info) Description 04/16/2025 Refill [facility] CHC MED & PEDS [address] [place] [address] Rolanda Thakur MD [address] [place] [address] Acquired hypothyroidism Social History Tobacco Use Types [...] documented as of this encounter Care Teams Cytogenetics Laboratory Manager Relationship Specialty Start Date End Date Rolanda Thakur MD [address] [place] [address] PCP - General Internal Medicine 09/19/22 documented as of this encounter
--- OUTSIDE RECORDS SUMMARY | 2025-06-18 07:50 | XMS_ITS | Encounter Summary ---
Author Organization [employer] Address [address] [place] [address] 7 [place] [address] Care Team Providers Care White Sugar Supervisor Name Role Phone Rolanda Thakur MD Primary Care Provider +1 [phone] Encounter Details Date Type Department Care Team ([facility] st Contact Info) Description 06/21/2023 Abstract [facility] MEDICINE [address] [place] [address] Sherrie Caballero Social History Tobacco Use Types [...] on filedocumented in this encounter Care Teams White Sugar Supervisor Relationship Specialty Start Date End Date Rolanda Thakur MD [address] [place] [address] PCP - General Internal Medicine 09/19/22 documented as of this encounter
--- OUTSIDE RECORDS SUMMARY | 2025-06-18 07:50 | XMS_ITS | Encounter Summary ---
Author Organization [employer] Address [address] [place] [address] Care Team Providers Care Fabrication Engineer Name Role Phone Rolanda Thakur MD Primary Care Provider +1- [phone] Reason for Visit * Reason Onset Date Comments Med Refill 04/11/2025 Encounter Details Date Type Department Care Team ([facility] st Contact Info) Description 04/11/2025 Refill [facility] CH[facility] MED & PEDS 505 [place] [address] Rolanda Thakur MD 505 [place] [address] Type 2 diabetes mellitus without complication, without long-term current use of insulin ([facility]) Social History Tobacco Use Types Packs/Day [...] documented as of this encounter Care Teams Fabrication Engineer Relationship Specialty Start Date End Date Rolanda Thakur MD [address] [place] [address] PCP - General Internal Medicine 09/19/22 documented as of this encounter
--- OUTSIDE RECORDS SUMMARY | 2025-06-18 07:50 | XMS_ITS | Encounter Summary ---
Author Organization [employer] Address [address] [place] [address] Care Team Providers Care Audiovisual Librarian Name Role Phone Rolanda Thakur MD Primary Care Provider +1 [phone] Reason for Referral * Imaging (Routine) - Closed Specialty Diagnoses / Procedures Referred By Contac t Referred To Contact Radiology Diagnoses Hyponatremia Decreased GFR Procedures US RENAL BI Rolanda Thakur MD 505 [place] [address] Phone: tel: fax: [address] Phone: tel: fax: Referral ID Status Reason Start Date Expiration Date Visits Re quested Visits Authorized [id number] Closed 07/18/2024 07/18/2025 1 0 Encounter Details Date Type Department Care Team (Late st Contact Info) Description 07/09/2024 Orders Only [facility] CHC MED & PEDS [address] [place], [place] [phone] Rolanda Thakur MD [address] [place], [place] [phone] Hyponatremia (Primary Dx); Decreased GFR Social History [...] EDT) Sodium 133(L) 135 - 145 mmol/L [facility] Potassium 4.9 3.3 - 5.1 mmol/L [facility] Chloride 104 96 - 108 mmol/L [facility] Carbon Dioxide 23 22 - 29 mmol/L [facility] Anion Gap 11(L) 12 - 20 [facility] Urea Nitrogen (BUN) 15 9 - 16 mg/dL [facility] Creatinine, Serum 0.82 0.5 - 1.4 mg/dL [facility] Estimated Glomerular Filt Rate >60 [facility] Comment:Chronic Kidney Disea se: Estimated GFR < 60 mL/min/1.88u0Vzneyn Kidney Disease: Estimated GFR < 15 mL/min/1.73m2 Glucose 177(H) 60 - 115 mg/dL [facility] Calcium 9.5 8.4 - 10.2 mg/dL [facility] Blood Venous blood specimen / Unknown 02/05/2025 12:22 PM EDT 02/05/2025 1:20 PM EDT Rolanda Thakur MD LAB BLOOD ORDERABLES Final Result [facility] [address] [place] [address] [phone] documented in this encounter Visit Diagnoses Diagnosis Hyponatremia- Primary Hyposmolality and/or hyponatremia Decreased GFR documented in this encounter Additional Health Concerns Assessment Noted Time PHQ-9 Depression Total Score: 2 05/13/20 24 9:24 AM EDT documented as of this encounter Care Teams Audiovisual Librarian Relationship Specialty Start Date End Date Rolanda Thakur MD [address] [place] [address] PCP - General Internal Medicine 09/19/22 documented as of this encounter
--- OUTSIDE RECORDS SUMMARY | 2025-06-18 07:50 | XMS_ITS | Encounter Summary ---
Author Organization [employer] Address [address] [address] Care Team Providers Care Rn Liaison Name Role Phone Rolanda Thakur MD Primary Care Provider +1- [phone] Reason for Visit * Reason Onset Date Comments Results 05/02/2025 Encounter Details Date Type Department Care Team ([facility] Contact Info) Description 05/02/2025 Telephone [facility] MEDICINE [address] [place] [address] Rolanda Thakur MD 505 [place], [place] [phone] Results Social History Tobacco Use Types Packs/Day [...] back regarding results as well as a Boundlesst message stating she will be referred to a urologist. Pt expressed frustration due to the fact that she has not received a callfrom a nurse regarding results but is now being referred, she would like to further discuss before the day ends. Please contact pt at [phone]. documented in this encounter Plan of Treatment Not on file documented as of this encounter Visit Diagnoses Not on filedocumented in this encounter Additional Health Concerns Assessment Noted Time PHQ-9 Depression Total Score: 2 05/13/20 24 9:24 AM EDT documented as of this encounter Care Teams Rn Liaison Relationship Specialty Start Date End Date Rolanda Thakur MD [address] [place] [address] PCP - General Internal Medicine 09/19/22 documented as of this encounter
--- OUTSIDE RECORDS SUMMARY | 2025-06-18 07:50 | XMS_ITS | Encounter Summary ---
Author Organization [employer] Address [address] [place] [address] Care Team Providers Care Fisheries Specialist Name Role Phone Rolanda Thakur MD Primary Care Provider [phone]- [phone] Reason for Visit * Reason Onset Date Comments Nurse Triage 06/04/2025 Encounter Details Date Type Department Care Team ([facility] st Contact Info) Description 06/04/2025 Telephone [facility] CHC MED & PEDS [address] [place] [address] Rolanda Thakur MD 505 [place] [address] Nurse Triage Social History Tobacco Use Types [...] caller accepted this outcome. Contact pt at [phone] documented in this encounter Plan of Treatment Not on file documented as of this encounter Visit Diagnoses Not on filedocumented in this encounter Additional Health Concerns Assessment Noted Time PHQ-9 Depression Total Score: 2 05/13/20 24 9:24 AM EDT documented as of this encounter Care Teams Fisheries Specialist Relationship Specialty Start Date End Date Rolanda Thakur MD 505 [place] [address] PCP - General Internal Medicine 09/19/22 documented as of this encounter
--- OUTSIDE RECORDS SUMMARY | 2025-06-18 07:50 | XMS_ITS | Encounter Summary ---
Author Organization [employer] Address [address] [place] [address] 7 [place] [address] Care Team Providers Care Dressing Room Porter Name Role Phone Rolanda Thakur MD Primary Care Provider +1- [phone] Encounter Details Date Type Department Care Team ([facility] Contact Info) Description 05/26/2025 Orders Only [facility] CHC MED & PEDS [address] [place] [address] Rolanda Thakur MD 505 [place] [address] Frequent UTI (Primary Dx); Vaginal dryness; Acquired [...] documented as of this encounter Care Teams Dressing Room Porter Relationship Specialty Start Date End Date Rolanda Thakur MD [address] [place] [address] PCP - General Internal Medicine 09/19/22 documented as of this encounter
--- OUTSIDE RECORDS SUMMARY | 2025-06-18 07:50 | XMS_ITS | Encounter Summary ---
Author Organization [employer] Address [address] [place] [address] Care Team Providers Care Technical Instructor Course Developer Name Role Phone Rolanda Thakur MD Primary Care Provider [phone]- [phone] Encounter Details Date Type Department Care Team ([facility] st Contact Info) Description 01/22/2024 Orders Only [facility] CHC MED & PEDS [address] [place], [place] [phone] Rolanda Thakur MD 505 [place] [address] Benign essential hypertension Social History Tobacco Use [...] AM EDT Narrative 02/19/2024 12:38 PM EDT [address] [address] XRay Report Signed Patient: Angely Pineda MR#: [id number] : 1950 Acct:[id number] Age/Sex: 73 / F ADM Date: 02/19/24 Loc: JANAE Attending Dr: Migdalia PALMER Ordering Physician: Migdalia Loza Date of Service: 02/19/24 Procedure(s): XR toe RT min 2V Accession Number(s): [id number] cc: Migdalia Loza EXAMINATION: BILATERAL TOES CLINICAL [...] in OV> 02/19/24 1234 DD/ 1122 TD/TT: Cooling System Operator: SS Procedure Note Donotuseinterpreter, Image - 02/19/[address] [address] XRay Report Signed Patient: Angely PinedaMR#: [id number] : 1950cct:[id number] Age/Sex: 73 / FADM Date: 02/19/24 Loc: JANAE Attending Dr: Migdalia Loza DATA MANAGEMENT ANALYST Ordering Physician: Migdalia Loza Date of Service: 02/19/24 Procedure(s): XR toe RT min 2V Accession Number(s): [id number] cc: Migdalia Loza DATA MANAGEMENT ANALYST EXAMINATION: BILATERAL TOES CLINICAL INFORMATION: A heavy [...] in OV> 02/19/24 1234 DD/ 1122 TD/TT: Cooling System Operator: SS Migdalia Loza DATA MANAGEMENT ANALYST IMG XR PROCEDURES Edited Resul t - Final documented in this encounter Visit Diagnoses Diagnosis Benign essential hypertension Essential hypertension, benign documented in this encounter Care Teams Technical Instructor Course Developer Relationship Specialty Start Date End Date Rolanda Thakur MD [address] [place] [address] PCP - General Internal Medicine 09/19/22 documented as of this encounter
--- OUTSIDE RECORDS SUMMARY | 2025-06-18 07:50 | XMS_ITS | Encounter Summary ---
Author Organization [employer] Address [address] [place] [address] Care Team Providers Care Rug Touch Up Painter Name Role Phone Rolanda Thakur MD Primary Care Provider +1- [phone] Reason for Visit * Reason Onset Date Comments CT scan order 07/03/2024 Encounter Details Date Type Department Care Team ([facility] st Contact Info) Description 07/03/2024 Telephone [facility] CHC MED & PEDS [address] [place] [address] Rolanda Thakur MD [address] [place] [address] CT scan order Social History Tobacco Use [...] incorrect location. Pt prefers being seen in [facility]. Please call pt to clarify. documented in this encounter Plan of Treatment Not on file documented as of this encounter Visit Diagnoses Not on filedocumented in this encounter Additional Health Concerns Assessment Noted Time PHQ-9 Depression Total Score: 2 05/13/20 24 9:24 AM EDT documented as of this encounter Care Teams Rug Touch Up Painter Relationship Specialty Start Date End Date Rolanda Thakur MD [address] [place] [address] PCP - General Internal Medicine 09/19/22 documented as of this encounter
--- OUTSIDE RECORDS SUMMARY | 2025-06-18 07:50 | XMS_ITS | Encounter Summary ---
Author Organization [employer] Address [address] [place] [address] Care Team Providers Care Collector Of Port Name Role Phone Rolanda Thakur MD Primary Care Provider +1- [phone] Reason for Referral * Consultation (Routine) - Authorized Specialty Diagnoses / Procedures Referred By Contac t Referred To Contact Endocrinology Diagnoses Type 2 diabetes mellitus without complication, without long-term current use of insulin (HCC) Benign essential hypertension Rolanda Thakur MD [address] [place] [address] Phone: tel: fax: [facility] [address] , [address] [place] [address] Phone: tel: fax: Referral ID Status Reason Start Date Expiration Date Visits Requested Visits Authorized [id number] Authorized Specialty Services Required 11/07/2024 11/07/2025 1 1 Encounter Details Date Type Department Care Team (Late st Contact Info) Description 11/07/2024 Orders Only [facility] MEDICINE [address] [place] [address] Rolanda Thakur MD [address] [place] [address] Type 2 diabetes mellitus without complication, without [...] long-term current use of insulin ([facility]) Benign essential hypertension Expected: 11/07/2024 (Approximate), Expires: 11/07/2025 documented as of this encounter Visit Diagnoses Diagnosis Type 2 diabetes mellitus without complication, without long-term current use of insulin (HCC)- Primary Benign essential hypertension Essential hypertension, benign documented in this encounter Additional Health Concerns Assessment Noted Time PHQ-9 Depression Total Score: 2 05/13/20 24 9:24 AM EDT documented as of this encounter Care Teams Collector Of Port Relationship Specialty Start Date End Date Rolanda Thakur MD [address] [place] [address] PCP - General Internal Medicine 09/19/22 documented as of this encounter
--- OUTSIDE RECORDS SUMMARY | 2025-06-18 07:50 | XMS_ITS | Encounter Summary ---
Author Organization [employer] Address [address] [place] [address] Care Team Providers Care Media Analyst Name Role Phone Rolanda Thakur MD Primary Care Provider +1- [phone] Reason for Referral * Consultation (Routine) - Closed Specialty Diagnoses / Procedures Referred By Freddy t Referred To Contact Chiropractic Medicine Diagnoses Chronic left-sided low back pain with left-sided sciatica Rolanda Thakur MD [address] [place] [address] Phone: tel: fax: [facility] fax: Referral ID Status Reason Start Date Expiration Date V isits Requested Visits Authorized [id number] Closed Specialty Services Required 08/08/2024 08/08/2025 1 1 * Consultation (Routine) - Closed Specialty Diagnoses / Procedures Referred By Freddy t Referred To Contact Physical Therapy Diagnoses Chronic left-sided low back pain with left-sided sciatica Rolanda Thakur MD [address] [place] [address] Phone: tel: fax: [facility] Physical Therapy [address] [place] [address] Phone: tel: fax: Referral ID Status Reason Start Date Expiration Date V isits Requested Visits Authorized [id number] Closed Specialty Services Required 08/05/2024 08/05/2025 1 1 * Consultation (Routine) - Closed Specialty Diagnoses / Procedures Referred By Freddy meadows Referred To Contact Chiropractic Medicine Diagnoses Chronic left-sided low back pain with left-sided sciatica Rolanda Thakur MD [address] [place] [address] Phone: tel: fax: Referral ID Status Reason Start Date Expiration Date V isits Requested Visits Authorized [id number] Closed Specialty Services Required 08/02/2024 08/02/2025 1 1 Encounter Details Date Type Department Care Team ([facility] st Contact Info) Description 08/02/2024 Orders Only [facility] CHC MED & PEDS [address] [place] [address] Rolanda Thakur MD [address] [place] [address] Chronic left-sided low back pain with left-sided [...] AM EST Narrative 09/02/2024 11:24 AM EST [facility] Primary [facility] [address] [address] XRay Report Signed Patient: Angely Pineda MR#: [id number] : 1950 Acct:[id number] Age/Sex: 74 / F ADM Date: 08/12/24 Loc: HO.HMGCX Attending Dr: Wyatt Golden MD Ordering Physician: Wyatt Golden MD Date of Service: 08/12/24 Procedure(s): XR cervical spine 5V Accession Number(s): [id number] cc: Rolanda Thakur MD; Wyatt Golden MD [...] 09/02/24 1121 DD/ 0950 TD/TT: 08/12/24 1000 Farm[employer]: Procedure Note Donotuseinterpreter, Image - 09/02/2024 [facility] Adult Primary Care [facility] [place] [address] XRay Report Signed Patient: Erma iPneda#: [id number] : 1950cct:[id number] Age/Sex: 74 / FADM Date: 08/12/24 Loc: HO.HMGCX Attending Dr: Wyatt Golden MD Ordering Physician: Wyatt Golden MD Date of Service: 08/12/24 Procedure(s): XR cervical spine 5V Accession Number(s): [id number] cc: Rolanda Thakur MD; Wyatt Golden MD [...] by: Yuridia Becerra MD 09/02/2024 11:21 AM [facility] Dictated By: Yuridia Becerra MD Signed By: <Electronically signed by Yuridia Becerra MD in OV> 09/02/24 1121 DD/ 0950 TD/TT: 08/12/24 1000 Farmworkers: Wyatt Mcdonald MD IMG XR PROCEDURES Iftikhar mecca Result - Final documented in this encounter Visit Diagnoses Diagnosis Chronic left-sided low back pain with left-sided sciatica- Primary documented in this encounter Additional Health Concerns Assessment Noted Time PHQ-9 Depression Total Score: 2 05/13/20 24 9:24 AM EDT documented as of this encounter Care Teams Media Analyst Relationship Specialty Start Date End Date Rolanda Thakur MD [address] [place] [address] PCP - General Internal Medicine 09/19/22 documented as of this encounter
--- OUTSIDE RECORDS SUMMARY | 2025-06-18 07:50 | XMS_ITS | Encounter Summary ---
Author Organization [employer] Address [address] [address] Care Team Providers Care Care Taker Name Role Phone Rolanda Thakur MD Primary Care Provider +1- [phone] Reason for Visit * Reason Onset Date Comments Call Back Request 11/27/2024 Encounter Details Date Type Department Care Team ([facility] st Contact Info) Description 11/27/2024 Telephone [facility] MEDICINE [address] [place] [address] Rolanda Thakur MD [address] [place], [place] [phone] Call Back Request Social History Tobacco Use [...] documented as of this encounter Care Teams Care Taker Relationship Specialty Start Date End Date Rolanda Thakur MD [address] [place] [address] PCP - General Internal Medicine 09/19/22 documented as of this encounter
--- OUTSIDE RECORDS SUMMARY | 2025-06-18 07:50 | XMS_ITS | Encounter Summary ---
Author Organization [employer] Address [address] [place] [address] Care Team Providers Care Employment Recruiter Name Role Phone Rolanda Thakur MD Primary Care Provider +1- [phone] Encounter Details Date Type Department Care Team ([facility] st Contact Info) Description 04/08/2024 Orders Only [facility] [address] [place], [place] [phone] Rolanda Thakur MD [address] [place] [address] UTI symptoms (Primary Dx) Social History Tobacco [...] Primary documented in this encounter Care Teams Employment Recruiter Relationship Specialty Start Date End Date Rolanda Thakur MD [address] [place] [address] PCP - General Internal Medicine 09/19/22 documented as of this encounter
--- OUTSIDE RECORDS SUMMARY | 2025-06-18 07:50 | XMS_ITS | Encounter Summary ---
Author Organization [employer] Address [address] [place] [address] [place] [address] Care Team Providers Care Port Drier Name Role Phone Rolanda Thakur MD Primary Care Provider +1- [phone] Encounter Details Date Type Department Care Team ([facility] Contact Info) Description 05/12/2025 Results Follow-Up [facility] CHC MED & PEDS [address] [place] [address] Rolanda Thakur MD 505 [place] [address] Culture, Urine, Routine Social History Tobacco Use [...] documented as of this encounter Care Teams Port Drier Relationship Specialty Start Date End Date Rolanda Thakur MD [address] [place] [address] PCP - General Internal Medicine 09/19/22 documented as of this encounter
--- OUTSIDE RECORDS SUMMARY | 2025-06-18 07:50 | XMS_ITS | Encounter Summary ---
Author Organization [employer] Address [address] [place] [address] Care Team Providers Care Blemish Remover Name Role Phone Rolanda Thakur MD Primary Care Provider +1- [phone] Reason for Visit * Reason Onset Date Comments Created In Error 04/29/2024 Encounter Details Date Type Department Care Team (Late st Contact Info) Description 04/29/2024 Telephone [facility] MEDICINE [address] [place] [phone] Rolanda Thakur MD [address] [place], [place] [phone] Created In Error Social History Tobacco Use [...] on filedocumented in this encounter Care Teams Blemish Remover Relationship Specialty Start Date End Date Rolanda Thakur MD [address] [place] [address] PCP - General Internal Medicine 09/19/22 documented as of this encounter
--- OUTSIDE RECORDS SUMMARY | 2025-06-18 07:50 | XMS_ITS | Encounter Summary ---
Author Organization [employer] Address [address] [place] [address] Care Team Providers Care Slubber Frame Changer Name Role Phone Rolanda Thakur MD Primary Care Provider +1- [phone] Reason for Visit * Reason Onset Date Comments Medication Question 12/09/2022 Encounter Details Date Type Department Care Team ([facility] st Contact Info) Description 12/09/2022 Telephone [facility] CHC MED & PEDS [address] [place], [place] [address] Rolanda Thakur MD 505 [place] [address] Medication Question Social History Tobacco Use Types [...] 12/09/2022 3:51 PM EDT Tc from [facility] requesting a clarification in new script for Synthroid 50 MCG tablet if dosage was sent incorrectly because in last script (levothyroxine (Synthroid) 150 MCG tablet) it [id number] MCG and New script is it 50 mcg so pharmacy is requesting some clarification Please contact Pharmacy at [phone] documented in this encounter Plan of Treatment Not on file documented as of this encounter Visit Diagnoses Not on filedocumented in this encounter Care Teams Slubber Frame Changer Relationship Specialty Start Date End Date Rolanda Thakur MD [address] [place] [address] PCP - General Internal Medicine 09/19/22 documented as of this encounter
[2025-06-18 07:51] VITALS: BP 140/72; PULSE 66; TEMP 36.6; O2SAT 100; BMI 25.4
--- NOTE | 2025-06-18 07:51 | AM.OFFWIN_ITS ---
Intake Vital Signs 06/18/25 07:51 Height 5 ft 4 in Weight 148 lb BMI 25.4 BP 140/72 H Blood Pressure Location Lt brachial Position Sitting Pulse 66 Pulse Source Pulse Oximeter Temp 97.8 F Temp Source Oral Pulse Oximetry (%) 100 Oxygen Delivery Method Room Air Oxygen Flow Rate 97.8 Intake Visit Reasons: ep pt fell and hurt lower back Intake Note: Patient presents with c/o low back/tailbone pain related to a fall at home this morning - tripped over a rug Patient Tobacco Use Status: Never used Tobacco Allergies meloxicam Allergy (Mild, Verified 06/18/25 07:56) Dizziness ciprofloxacin Allergy (Verified 06/18/25 07:56) Unknown sulfamethoxazole (From Bactrim) Allergy (Verified 06/18/25 07:56) Unknown trimethoprim (From Bactrim) Allergy (Verified 06/18/25 07:56) Unknown gabapentin (GABAPENTIN) Adverse Reaction (Mild, Verified 06/18/25 07:56) NAUSEA acetaminophen (From PERCOCET) Adverse Reaction (Unknown, Verified 06/18/25 07:56) VOMITTING codeine (CODEINE) Adverse Reaction (Unknown, Verified 06/18/25 07:56) VOMITTING meperidine (From DEMEROL) Adverse Reaction (Unknown, Verified 06/18/25 07:56) VOMITTING morphine (MORPHINE) Adverse Reaction (Unknown, Verified 06/18/25 07:56) CANT OPEN HER EYES oxycodone (From PERCOCET) Adverse Reaction (Unknown, Verified 06/18/25 07:56) VOMITTING scallops (SCALLOPS) Adverse Reaction (Unknown, Verified 06/18/25 07:56) ABD PAIN HPI HPI Comments History of Present Illness Details History - The patient is a 74-year-old female pr esenting with sciatica and associated pain following a fall at 4am today. - Sciatica: The patient reports a histor y of sciatica with current symptoms of sharp, shooting pain down the left leg following a fall while gardening. - The pain is described as sharp and david oting, primarily affecting the left leg. - The patient has a history of diabetes mellitus and is aware of the need to avoid prolonged use of heating pads due to the risk of stewart. - The patient has been advised to use ic e for pain management. - Arthritis: The patient suspects arthri tis as a contributing factor to her back pain. Review of Systems - Musculoskeletal: Reports sharp, shooti ng pain down the left leg, associated with sciatica. - Neurological: Denies significant pain during leg flexion. - Cardiovascular: Reports elevated blood pressure during panic attacks. - Endocrine: Reports history of diabetes mellitus. - Genitourinary: Reports a history of re ctocele, denies current urinary sympto ms. All systems reviewed and are unremarkable except as noted in HPI Physical Exam General: cooperative, healthy appearing and comfortable, patient oriented x3 Head: Yes normal to inspection and Yes normocephalic General nose exam: Normal external nose present Face and sinus: Yes normal facial exam Effort & Inspection: normal respiratory effort and able to speak in complete sentences Back/spine: CVA tenderness on the left side cervical, thoracic and lumbar spine normal to inspection cervical ROM normal, thoracic ROM normal, lumbar ROM normal no Cervical, thoracic or lumbar spine tenderness TTP on coccyx Extremities: moving extremities normally, straight leg test negative bilaterally Neuro: A&O x3, gait normal PFSH Medical History Osteoarthritis of left knee Lumbar degenerative disc disease Panic attacks Hypothyroid Hyperlipidemia HTN (hypertension) DM type 2 (diabetes mellitus, type 2) Social History Household Members Other:: 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, 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 Tobacco Use Status: Never used Tobacco Physical Exam Vital Signs: Last Vital Signs Temp 97.8 F 06/18/25 07:51 Pulse 66 06/18/25 07:51 BP 140/72 H 06/18/25 07:51 Pulse Ox 100 06/18/25 07:51 Oxygen Delivery Method Room Air 06/18/25 07:51 Oxygen Flow Rate 97.8 06/18/25 07:51 BMI result Body Mass Index 25.4 Assessment & Plan Assessment & Plan (1) Fall: Code(s): W19.XXXA - Unspecified fall, initial encounter Qualifiers: Encounter type: initial encounter Qualified Code(s): W19.XXXA - Unspecified fall, initial encounter Plan: Plan - An x-ray of the lumbar spine is planned to assess for any fractures or other abnormalities following the fall. - The patient is advised to use ice for pain management, with the option to use heat if it provides relief. - Diclofenac is prescribed for arthritis-related pain, with instructions to use it sparingly to protect renal function. - Follow up with PCP if no improvement in pain. Patient was informed and verbally consented to the use of an ambient scribe for clinic note documentation during this visit. (2) Coccygeal pain, acute: Code(s): M53.3 - Sacrococcygeal disorders, not elsewhere classified Plan: as above Orders: Orders XR sacrum coccyx min 2V Today M53.3 - Sacrococcygeal disorders, not elsewhere classified, W19.XXXA - Unspecified fall, initial encounter Medications: New diclofenac sodium 50 mg PO Q12H PRN 15 tabs 0RF pain Coding Level of Care Code New Pt Level 4 (13782) Diagnoses Fall, initial encounter W19.XXXA Encounter type: initial encounter Coccygeal pain, acute M53.3
--- OUTSIDE RECORDS SUMMARY | 2025-06-18 07:51 | XMS_ITS | Encounter Summary ---
Author Organization [employer] Address [address] [facility] 7 [place] [address] Care Team Providers Care Ammonia Worker Name Role Phone Rolanda Thakur MD Primary Care Provider +1- [phone] Reason for Visit * Reason Onset Date Comments Med Refill 08/19/2024 Encounter Details Date Type Department Care Team (Late st Contact Info) Description 08/19/2024 Refill [facility] [address] [place] [address] Wyatt Huizar MD [address] [place] [address] Neck pain on left side Social History [...] documented as of this encounter Care Teams Ammonia Worker Relationship Specialty Start Date End Date Rolanda Thakur MD [address] [place] [address] PCP - General Internal Medicine 09/19/22 documented as of this encounter
--- OUTSIDE RECORDS SUMMARY | 2025-06-18 07:51 | XMS_ITS | Encounter Summary ---
Author Organization [employer] Address [address] [place] [address] Care Team Providers Care Seo Associate Name Role Phone Rolanda Thakur MD Primary Care Provider +1- [phone] Encounter Details Date Type Department Care Team ([facility] st Contact Info) Description 10/27/2023 Orders Only [facility] MED & PEDS [address] [place], [place] [phone] Bhavesh Yang, RN 505 [place] [address] Social History Tobacco Use Types Packs/Day Years [...] on filedocumented in this encounter Care Teams Seo Associate Relationship Specialty Start Date End Date Rolanda Thakur MD [address] [place] [address] PCP - General Internal Medicine 09/19/22 documented as of this encounter
--- OUTSIDE RECORDS SUMMARY | 2025-06-18 07:51 | XMS_ITS | Encounter Summary ---
Author Organization [employer] Address [address] [address] Care Team Providers Care Resilient Tile Installer Name Role Phone Rolanda Thakur MD Primary Care Provider +1- [phone] Reason for Visit * Reason Onset Date Comments Nurse Triage 12/12/2023 Encounter Details Date Type Department Care Team ([facility] st Contact Info) Description 12/12/2023 Telephone [facility] [address] [place] [address] Rolanda Thakur MD [address] [place], [place] [phone] Nurse Triage Social History Tobacco Use Types [...] from pt requesting to speak to PCP physical chemistry professordata center manager in regards to scheduled sick visit tmr, states was advised to contact PCP before scheduled appt to see how pt is doing, pt stated they still has a severe cough. Linting Machine Operator did advised appt is still expected. Pt is scheduled tmr 12/15/23 for ( chest congestion, cough , yellow nasal drainage. ) Please contact at [phone] * Telephone Encounter - Viktoria Schultz RN [...] point. Pt is advised to come to [facility] today to be seen since open till 8pm. PT is not sure if will be able to do that. Linting Machine Operator contacted Haylie Barrientos [facility] and asked if would be possible [...] on filedocumented in this encounter Care Teams Resilient Tile Installer Relationship Specialty Start Date End Date Rolanda Thakur MD [address] [place] [address] PCP - General Internal Medicine 09/19/22 documented as of this encounter
--- OUTSIDE RECORDS SUMMARY | 2025-06-18 07:51 | XMS_ITS | Encounter Summary ---
Author Organization [employer] Address [address] [place] [address] Care Team Providers Care Ergonomic Specialist Name Role Phone Rolanda Thakur MD Primary Care Provider +1- [phone] Encounter Details Date Type Department Care Team ([facility] st Contact Info) Description 12/07/2023 Telephone [facility] MEDICINE [address] [place] [phone] Rolanda Thakur MD [address] [place] [address] Social History Tobacco Use Types Packs/Day Years [...] on filedocumented in this encounter Care Teams Ergonomic Specialist Relationship Specialty Start Date End Date Rolanda Thakur MD [address] [place] [address] PCP - General Internal Medicine 09/19/22 documented as of this encounter
--- OUTSIDE RECORDS SUMMARY | 2025-06-18 07:51 | XMS_ITS | Encounter Summary ---
Author Organization [employer] Address [address] [facility] 7 [place] [address] Care Team Providers Care Automobile Body Repairer Name Role Phone Rolanda Thakur MD Primary Care Provider +1- [phone] Encounter Details Date Type Department Care Team ([facility] Contact Info) Description 10/08/2024 Telephone [facility] CHC MED & PEDS [address] [place] [address] Rolanda Thakur MD [address] [place] [address] Social History Tobacco Use Types Packs/Day Years [...] documented as of this encounter Care Teams Automobile Body Repairer Relationship Specialty Start Date End Date Rolanda Thakur MD [address] [place] [address] PCP - General Internal Medicine 09/19/22 documented as of this encounter
--- OUTSIDE RECORDS SUMMARY | 2025-06-18 07:51 | XMS_ITS | Encounter Summary ---
Author Organization [employer] Address [address] [place] [address] Care Team Providers Care Sales Service Promoter Name Role Phone Rolanda Thakur MD Primary Care Provider +1- [phone] Reason for Visit * Reason Onset Date Comments Medication Question 10/23/2023 Encounter Details Date Type Department Care Team ([facility] st Contact Info) Description 10/23/2023 Telephone [facility] MEDICINE [address] [place] [address] Rolanda Thakur MD [address] [place], [place] [phone] Medication Question Social History Tobacco Use Types [...] filedocumented in this encounter Care Teams Sales Service Promoter Relationship Specialty Start Date End Date Rolanda Thakur MD [address] [place] [address] PCP - General Internal Medicine 09/19/22 documented as of this encounter
--- OUTSIDE RECORDS SUMMARY | 2025-06-18 07:51 | XMS_ITS | Encounter Summary ---
Author Organization [employer] Address [address] [place] [address] Care Team Providers Care Glass Maker Name Role Phone Rolanda Thakur MD Primary Care Provider +1- [phone] Reason for Visit * Reason Onset Date Comments Call Back Request 11/17/2023 Encounter Details Date Type Department Care Team ([facility] st Contact Info) Description 11/17/2023 Telephone [facility] [address] [place] [address] Roladna Thakur MD [address] [place], [place] [phone] Call Back Request Social History Tobacco Use [...] Message sent to PCP for review through [employer] portal * Telephone Encounter - Jenny Neff - 11/17/2023 8:06 AM EDT Tc from pt requesting a call back pt stated needs more information and clarifications 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 Please contact pt. documented in this encounter Plan of Treatment Not on file documented as of this encounter Visit Diagnoses Not on filedocumented in this encounter Care Teams Glass Maker Relationship Specialty Start Date End Date Rolanda Thakur MD [address] [place] [address] PCP - General Internal Medicine 09/19/22 documented as of this encounter
--- OUTSIDE RECORDS SUMMARY | 2025-06-18 07:51 | XMS_ITS | Encounter Summary ---
Author Organization [employer] Address [address] [place] [address] Care Team Providers Care Administrative Processor Name Role Phone Rolanda Thakur MD Primary Care Provider +1- [phone] Encounter Details Date Type Department Care Team ([facility] st Contact Info) Description 12/28/2023 Orders Only [facility] CHC MED & PEDS [address] [place], [place] [phone] Rolanda Thakur MD [address] [place] [address] Social History Tobacco Use Types Packs/Day Years [...] filedocumented in this encounter Care Teams Administrative Processor Relationship Specialty Start Date End Date Rolanda Thakur MD [address] [place] [address] PCP - General Internal Medicine 09/19/22 documented as of this encounter
--- OUTSIDE RECORDS SUMMARY | 2025-06-18 07:51 | XMS_ITS | Encounter Summary ---
Author Organization [employer] Address [address] [place] [address] Care Team Providers Care Organizational Development Consultant Name Role Phone Rolanda Thakur MD Primary Care Provider +1- [phone] Reason for Visit * Reason Onset Date Comments Med Refill 12/26/2024 Encounter Details Date Type Department Care Team ([facility] st Contact Info) Description 12/26/2024 Refill [facility] CHC MED & PEDS [address] [place] [address] Rolanda Thakur MD [address] [place] [address] Anxiety; Benign essential hypertension Social History Tobacco [...] documented as of this encounter Care Teams Organizational Development Consultant Relationship Specialty Start Date End Date Rolanda Thakur MD [address] [place] [address] PCP - General Internal Medicine 09/19/22 documented as of this encounter
--- OUTSIDE RECORDS SUMMARY | 2025-06-18 07:51 | XMS_ITS | Encounter Summary ---
Author Organization [employer] Address [address] [place] [address] Care Team Providers Care Bay Stocker Name Role Phone Rolanda Thakur MD Primary Care Provider +1- [phone] Encounter Details Date Type Department Care Team ([facility] st Contact Info) Description 10/27/2023 Telephone [facility] MEDICINE [address] [place] [address] [phone] Rolanda Thakur MD [address] [place] [address] Social History Tobacco Use Types Packs/Day Years [...] on filedocumented in this encounter Care Teams Bay Stocker Relationship Specialty Start Date End Date Rolanda Thakur MD [address] [place] [address] PCP - General Internal Medicine 09/19/22 documented as of this encounter
--- OUTSIDE RECORDS SUMMARY | 2025-06-18 07:51 | XMS_ITS | Encounter Summary ---
Author Organization [employer] Address [address] [place] [address] Care Team Providers Care Zipper Trimmer Hand Name Role Phone Rolanda Thakur MD Primary Care Provider +1- [phone] Encounter Details Date Type Department Care Team ([facility] st Contact Info) Description 03/28/2024 Orders Only [facility] CHC MED & PEDS [address] [place], [place] [phone] Karen Alcantar MD [address] [place] [address] Social History Tobacco Use Types Packs/Day Years [...] on filedocumented in this encounter Care Teams Zipper Trimmer Hand Relationship Specialty Start Date End Date Rolanda Thakur MD [address] [place] [address] PCP - General Internal Medicine 09/19/22 documented as of this encounter
--- OUTSIDE RECORDS SUMMARY | 2025-06-18 07:51 | XMS_ITS | Encounter Summary ---
Author Organization [email or web address] Address [address] [place] [address] Care Team Providers Care Lobby Porter Name Role Phone Rolanda Thakur MD Primary Care Provider +1- [phone] Reason for Visit * Reason Onset Date Comments Referral 09/29/2022 Encounter Details Date Type Department Care Team ([facility] st Contact Info) Description 09/29/2022 Telephone [facility] CHC MED & PEDS [address] [place] [address] Rolanda Thakur MD [address] [place] [address] Referral Social History Tobacco Use Types Packs/Day [...] to fax order to Dr Dempsey on [phone] Dempsey's office on [phone]. Will forward message to provider. RN called Roxanne and gave her the phone and fax number to Dr Dempsey's office and also to f/u when EM[facility] order is placed by PCP. * Telephone Encounter - Machelle Adam RN - 10/03/2022 10:09 AM EST Return call placed to Haylie at [facility] neuroscience, spoke with Jumana who states their office donot see pt for diabetic polyneuropathy but instead sees pt for foot drop or other issue. States Haylieis unavailable at this time but will informed her to call [facility] back if needed. Will forward message to PCP as FYI. * Telephone Encounter - Brinda Barnard - 09/29/2022 1:30 PM EST Tc from Haylie from [facility] med / rehab calling to inform they need more dx clarification for referral that was sent . and phone # [phone] documented in this encounter Plan of Treatment Not on file documented as of this encounter Visit Diagnoses Diagnosis Diabetic polyneuropathy associated with diabetes mellitus due to underlying condition (HCC)- Primary documented in this encounter Care Teams Lobby Porter Relationship Specialty Start Date End Date Rolanda Thakur MD [address] [place] [address] PCP - General Internal Medicine 09/19/22 documented as of this encounter
--- OUTSIDE RECORDS SUMMARY | 2025-06-18 07:51 | XMS_ITS | Encounter Summary ---
Author Organization [employer] Address [address] [place] [address] 7 [place] [address] Care Team Providers Care Server Programmer Name Role Phone Rolanda Thakur MD Primary Care Provider [phone] Encounter Details Date Type Department Care Team ([facility] st Contact Info) Description 09/23/2024 Orders Only [facility] [address] [place] [address] Rolanda Thakur MD [address] [place] [address] Acquired hypothyroidism (Primary Dx); Benign essential hypertension [...] PM EST) Aldosterone 2 see note ng/dL [facility] Comment:Unable to flag abnor mal result(s), please refer to reference range(s) below:Adult Reference Ranges for Aldosterone, LC/MS/MS: Upright 8:00 - 10:00 am < or = 28 ng/dL Upright 4:00 - 6:00 pm < or = 21 ng/dL Supine 8:00 - 10:00 am 3 - 16 ng/dLTHIS TEST WAS PERFORMED AT:[employer] [id number] [place] [id number] PEDERSEN MD,PHD Plasma Renin Activity 0.52 0.25 - 5.82 ng/mL/h [facility] Aldosterone/Renin Ratio 3.8 0.9 - 28.9 Ratio [facility] Comment:This test was develo ped and its analytical performancecharacteristics have been determined by [employer] [place], [place]. It hasnot been cleared or approved by the U.S. Food and DrugAdministration. This assay has been validated pursuantto the CLIA regulations and is used for clinicalpurposes.THIS TEST WAS PERFORMED AT:[employer] [id number] [place] [id number] PEDERSEN MD,PHD Blood Venous blood specimen / Unknown 09/24/2024 1:40 PM EST 09/24/2024 4:21 PM EST Rolanda Thakur MD LAB BLOOD ORDERABLES Final Result [facility] [address] [place] [phone] * TSH W/Reflex to FT4 (09/24/2024 1:40 PM EST) TSH reflex Free T4 0.38 0.32 - 4.0 uIU/mL [facility] Blood Venous blood specimen / Unknown 09/24/2024 1:40 PM EST 09/24/2024 4:21 PM EST us Rolanda Thakur MD LAB BLOOD ORDERABLES Final Result Performing Organization Address [facility]/ZIP Co de Phone Number [facility] [address] [place] [phone] * (ABNORMAL) Basic Metabolic Panel, Fasting (09/24/2024 1:40 PM EST) Sodium 139 135 - 145 mmol/L [facility] Potassium 3.8 3.3 - 5.1 mmol/L [facility] Chloride 106 96 - 108 mmol/L [facility] Carbon Dioxide 22 22 - 29 mmol/L [facility] Anion Gap 15 12 - 20 [facility] Urea Nitrogen (BUN) 13 9 - 16 mg/dL [facility] Creatinine, Serum 0.94 0.5 - 1.4 mg/dL [facility] Estimated Glomerular Filt Rate 58 [facility] Comment:Chronic Kidney Disea se: Estimated GFR < 60 mL/min/[id number] Kidney Disease: Estimated GFR < 15 mL/min/1.73m2 Glucose Fasting 169(H) 60 - 99 mg/dL [facility] Comment:A fasting glucose of 126 mg/dl or greater on more than oneoccasion is considered diagnostic of diabetes. Calcium 9.9 8.4 - 10.2 mg/dL [facility] Blood Venous blood specimen / Unknown 09/24/2024 1:40 PM EST 09/24/2024 4:21 PM EST us Rolanda Thakur MD LAB BLOOD ORDERABLES Final Result Performing Organization Address City/[facility]/ZIP Co de Phone Number [facility] [address] [place] [phone] * (ABNORMAL) CBC auto differential (09/24/2024 1:40 PM EST) White Blood Count 7.0 4.8 - 10.8 X10*3/uL [facility] Red Blood Count 4.23 4.20 - 5.50 X10*6/uL [facility] Hemoglobin 12.6 12.0 - 16.0 g/dl [facility] Hematocrit 37.0 37.0 - 47.0 % [facility] Mean Corpuscular Volume 87.5 80.0 - 98.0 fL [facility] Mean Corpuscular Hemoglobin 29.8 27.0 - 33.0 pg [facility] Mean Corpuscular HGB Conc 34.1 31.0 - 35.0 g/dl [facility] Red Cell Distribution Width 12.8 11.0 - 16.0 % [facility] Platelet Count 251 160 - 400 X10*3/uL [facility] Mean Platelet Volume 9.5 9.4 - 12.3 fL [facility] Neutrophils Percent Auto 59.8 45 - 73 % [facility] Imm Gran Pct Auto 0.3 0.0 - 0.4 % [facility] Lymphocytes Percent Auto 26.1 20 - 40 % [facility] Monocytes Percent Auto 8.6 2 - 11 % [facility] Eosinophils Percent Auto 4.3(H) 0 - 4 % [facility] Basophils Percent Auto 0.9 0 - 2 % [facility] NRBC Pct Auto 0.0 0.0 - 0.2 /100WBC [facility] Neutrophils Absolute Auto 4.2 2.0 - 8.3 x10*3/uL [facility] Imm Gran Abs Auto 0.02 0.00 - 0.03 X10*3/uL [facility] Lymphocytes Absolute Auto 1.8 1.2 - 4.9 X10*3/uL [facility] Monocytes Absolute Auto 0.6 0.1 - 1.2 X10*3/uL [facility] Eosinophils Absolute Auto 0.3 0.0 - 0.4 X10*3/uL [facility] Basophils Absolute Auto 0.1 0.0 - 0.2 X10*3/uL [facility] NRBC Abs Auto 0.000 0.0 - 0.012 X10*3/uL [facility] Blood Venous blood specimen / Unknown 09/24/2024 1:40 PM EST 09/24/2024 4:21 PM EST Rolanda Thakur MD LAB BLOOD ORDERABLES Final Result [facility] [address] [place] [phone] documented in this encounter Visit Diagnoses Diagnosis Acquired hypothyroidism- Primary Unspecified hypothyroidism Benign essential hypertension Essential hypertension, benign documented in this encounter Additional Health Concerns Assessment Noted Time PHQ-9 Depression Total Score: 2 05/13/20 24 9:24 AM EDT documented as of this encounter Care Teams Server Programmer Relationship Specialty Start Date End Date Rolanda Thakur MD [address] [place] [phone] PCP - General Internal Medicine 09/19/22 documented as of this encounter
--- OUTSIDE RECORDS SUMMARY | 2025-06-18 07:51 | XMS_ITS | Clinical Summary ---
Author Organization [employer] Address [address] [place] [address] [place] [address] Care Team Providers Care Project Crew Worker Name Role Phone Rolanda Thakur MD Primary Care Provider [phone] Allergies Active Allergy Reactions Criticality Noted Date [...] complication, without long-term current use of insulin ([facility]) Use to test blood sugar 2 times daily 1 kit 12/27/19 25 Active cetirizine (ZyrTEC) 10 MG tablet TAKE 1 TABLET BY MOUTH DAILY 30 tablet 11 01/25/20 25 Active Continuous Glucose Dispatch Supervisor (Dexcom G7 Dispatch Supervisor) deviceIndications :Type 2 diabetes mellitus without complication, [...] 25 Active Blood Glucose Monitoring Suppl (FreeStyle [place] Lite) w/Device kitIndications:Ty pe 2 diabetes mellitus [...] Plan: Augmentin BID x 10 days Nasal [place] Follow up if worsening or no [...] , Patient to [facility] to [facility] team as needed, Patient to engage in OP therapy , and Patient to reach out to [facility] as needed Swelling of lip, tongue, and throat 05/10/2024 Assessment & Plan (05/22/2024 1:00 PM EDT): Patient reports episodes of swelling of exposure to different antigens, at this moment given recurrence and symptoms affecting patients daily, will strongly benefit of assessment from blood bank assistant to help elucidate etiology of symptoms. Peripheral [...] organization. Date Type Department Care Team Description 06/17/2025 Refill [facility] [address] [place] [address] Rolanda Thakur MD Panic attack; Anxiety 06/13/2025 Orders Only [facility] [address] [facility] [place] [address] Chema Biggs MD 06/09/2025 Orders Only [facility] [address] [place] [address] Maren Hough MD Atrophic vaginitis (Primary Dx) 06/05/2025 11:15 AM EDT Office Visit [facility] [address] [place] [address] Maren Hough MD Atrophic vaginitis (Primary Dx); Type 2 diabetes mellitus with hyperglycemia, without long-term current use of insulin (HCC); Weakening of rectovaginal tissue 06/05/2025 Telephone [facility] [address] [place] [address] Rolanda Thakur MD Call Back Request; Medication Question 06/05/2025 Travel 06/05/2025 Refill [facility] [address] [place] [address] Rolanda Thakur MD Anxiety; Benign essential hypertension 06/04/2025 Telephone [facility] [address] [place] [address] Rolanda Thakur MD Nurse Triage 06/02/[address] [address] Rolanda Thakur MD Nurse Triage 05/31/2025 10:00 AM EDT Office Visit [facility] [address] [place] [address] Edward Bach MD Urinary urgency (Primary Dx) 05/31/2025 Refill [facility] [address] [place] [address] Rolanda Thakur MD Panic attack; Anxiety 05/31/2025 Travel 05/29/2025 Results Follow-Up [facility] [address] [place] [address] Kelsie Genao NP Urinalysis Complete 05/29/2025 Results Follow-Up [address] [address] Kelsie Genao NP Culture, Urine, Routine 05/29/2025 Telephone [facility] [address] [place] [address] Rolanda Thakur MD 05/28/2025 Orders Only [facility] [address] [place] [address] Kelsie Genao, MARIBEL 05/28/[address] [address] Rolanda Thakur MD 05/26/2025 Orders Only [facility] [address] [place] [address] Rolanda Thakur MD Frequent UTI (Primary Dx); Vaginal dryness; Acquired hypothyroidism 05/24/[address] [address] Kelsie Genao, CRIMINAL INTELLIGENCE ANALYST 05/22/2025 Refill [facility] [address] [place] [address] Rolanda Thakur MD 05/16/2025 Refill [facility] [address] [place] [address] Rolanda Thakur MD Panic attack; Anxiety 05/13/[address] [address] Rolanda Thakur MD 05/12/2025 Results Follow-Up [facility] [address] [place] [address] Rolanda Thakur MD Culture, Urine, Routine 05/10/2025 Orders Only GENERIC EXTERNAL DATA DEPARTMENT Provider, Generic External Data 05/08/2025 Refill [facility] [address] [place] [address] Rolanda Thakur MD Vitamin D deficiency 05/08/2025 Refill [facility] [address] [place] [address] Rolanda Thakur MD Recent urinary tract infection 05/07/2025 Refill [facility] [address] [place] [address] Rolanda Thakur MD 05/07/[address] [address] Rolanda Thakur MD 05/02/[address] [place] [address] Rolanda Thakur MD Results 05/02/2025 Results Follow-Up [facility] [address] [place] [address] Ilsa Boyd RN Culture, Urine, Routine, Referral to Urology 05/02/2025 Telephone [facility] [address] [place] [address] Rolanda Thakur MD 05/01/2025 Orders Only [facility] [address] [place] [address] Rolanda Thakur MD Recent urinary tract infection (Primary Dx) 05/01/[address] [address] Rolanda Thakur MD Results 04/30/2025 Orders Only [facility] [address] [place] [address] Rolanda Thakur MD Recurrent UTI (Primary Dx) 04/30/2025 Results Follow-Up [facility] [address] [place] [address] Rolanda Thakur MD XR Hand 3+ Views Right, XR Hand 3+ Views Left 04/22/2025 3:40 PM EDT Office Visit [facility] [address] [place] [address] Rolanda Thakur MD Traumatic ecchymosis of left hand, initial encounter (Primary Dx); Right hand pain; Benign essential hypertension 04/22/2025 Travel 04/22/[address] [address] Rolanda Thakur MD call back / orders 04/22/2025 Results Follow-Up [facility] [address] [place] [address] FrankenMigdalia, TECH BRAZER TESTER TSH W/Reflex to FT4, Urinalysis, Complete, with Reflex to Culture, Culture, Urine, Routine 04/21/2025 Refill [facility] [address] [place] [address] Rolanda Thakur MD Panic attack; Anxiety 04/18/2025 8:30 AM EDT Office Visit [facility] [address] [place] [address] Migdalia Loza FNP Urinary urgency (Primary Dx); Acquired hypothyroidism; Type 2 diabetes mellitus without complication, without long-term current use of insulin ([facility]) 04/18/2025 Refill [facility] [address] [place] [address] Rolanda Thakur MD Acquired hypothyroidism; Type 2 diabetes mellitus without complication, without long-term current use of insulin ([facility]) 04/18/2025 Telephone [facility] [address] [place] [address] Migdalia Loza FNP Appointment Request 04/18/2025 Travel 04/18/2025 Orders Only [facility] [address] [place] [address] Migdalia Loza FNP Acquired hypothyroidism (Primary Dx); UTI symptoms; Type 2 diabetes mellitus without complication, without long-term current use of insulin ([facility]) 04/17/2025 Telephone [facility] [address] [place] [address] Rolanda Thakur MD Nurse Triage 04/17/2025 Telephone [facility] [address] [place] [address] Rolanda Thakur MD Med Refill 04/16/2025 Refill [facility] [address] [place] [address] Rolanda Thakur MD Acquired hypothyroidism 04/15/2025 Results Follow-Up [facility] [address] [place] [address] Kimberly Bronson, MINOO Basic Metabolic Panel 04/14/2025 Orders Only [facility] [address] [place] [address] Rolanda Thakur MD Type 2 diabetes mellitus without complication, without long-term current use of insulin ([facility]) (Primary Dx); Recent urinary tract infection 04/12/2025 Orders Only GENERIC EXTERNAL DATA DEPARTMENT Provider, Generic External Data 04/11/2025 Refill [facility] [address] [place], [place] [phone] Gutierrez MD Type 2 diabetes mellitus without complication, without long-term current use of insulin ([facility]) 03/31/2025 Refill [facility] [address] [place], [place] [phone] Rolanda Thakur MD Panic attack; Anxiety 03/31/2025 Refill [facility] [address] [place], [place] [phone] Gutierrez MD Panic attack; Anxiety 03/24/2025 Results Follow-Up [facility] [address] [place] [address] [place] [phone] Gutierrez MD T-SPOT .TB 03/22/2025 Refill [facility] [address] [place] [address] Rolanda Gutierrez MD 03/20/2025 Orders Only [facility] [address] [place] [address] Rolanda Vasques MD 03/20/2025 Refill [facility] [address] [place] [address] Rolanda Gutierrez MD 03/20/2025 Results Follow-Up [facility] [address] [place] [address] Rolanda Gutierrez MD TSH W/Reflex to FT4, CBC auto differential 03/19/2025 Orders Only [facility] [address] [place] [address] Rolanda Vasques MD 03/19/2025 Telephone [facility] [address] [place], [place] [phone] Vasques MD Appointment Request; Lab Orders 03/19/2025 Telephone [facility] [address] [place] [address] Rolanda Thakur MD PE APPT from Last [...] 02/19/2024, 02/19/2024, Additional history exists COVID-19 Vaccine (3 - 2025-26 season) 2025 07/10/2021, 11/04/2020 Influenza Vaccine (#1) 2025 , 06/26/2023, 06/27/2021, Additional history exists Depression Screening 05/13/2025 05/13/2024, 05/13/20 Diabetes: Hemoglobin A1C 08/09/2025 025, 02/05/2025, 07/06/2024, Additional history exists FOBT 08/09/2025 08/09/2024, 01/03/2022 Alcohol/Substance Use Screening 09/10/2025 09/10/2024 SDOH Screening 09/10/2025 09/10/2024 Eye Exam 09/26/2025 09/26/2023 Diabetes: Urine Protein Screening 05/10/2026 05/10/2025, 07/17/2024 Lipid Panel 05/10/2026 05/10/2025, 03/22, 07/17/2024, Additional history exists Tobacco Screening 06/05/2026 [...] AND BLADDER) Routine 06/08/2025 9:25 AM EDT POCT GLUCOSE Routine 06/05/2025 11:28 AM EDT [...] pain XR HAND 3+ VIEWS RIGHT Routine 8:55 AM EDT Traumatic ecchymosis of left hand, initial encounter Right hand pain URINALYSIS, COMPLETE, WITH REFLEX TO CULTURE Routine 04/30/2025 8:37 AM EDT Type 2 diabetes mellitus without complication, without long-term current use of insulin ([facility]) Recent urinary tract infection CULTURE, URINE, ROUTINE [...] hyperglycemia, without long-term current use of insulin ([facility]) T-SPOT(R).TB Routine 03/20/2025 9:09 AM EDT SLIDE [...] Relevant to Health Maintenance Results * US RETROPERITONEAL COMPLETE (KIDNEYS AND BLADDER) (06/08/2025 9:25 AM EDT) Anatomical Region Laterality Modality Ultrasound Historical Provider IMG US PROCEDURES Final R esult * POCT Glucose (06/05/2025 11:28 AM EDT) Glucose Blood, POC 195 60 - 200 mg/dL QC Media Lot # [id number] Lot# Expiration Date ,036 Blood Capillary blood specimen / Unknown 06/05/2025 11:28 AM EDT Maren Hough MD POINT OF CARE TEST ENTER/EDIT OR DERABLES Final Result * Referral to Urology (05/30/2025) Rolanda Thakur MD OUTPATIENT REFERRAL ORDERAB LES Final Result * (ABNORMAL) Urinalysis Complete (05/28/2025 7:40 AM EDT) Only the most recent of2 resultswithin the time period is included. Color Urine Dark Yellow [facility] Appearance Urine Clear [facility] PH 6.0 5.0 - 9.0 [facility] Glucose Urine UA Negative Negative mg/dL [facility] Urine Blood Negative Negative [facility] Specific [place] - Urine 1.010 1.005 - 1.025 [facility] Urine Protein Negative Neg-Trace mg/dL [facility] Urine Ketones Negative Negative mg/dL [facility] Nitrite Urine Negative Negative [facility] Leukocyte Esterase Urine Moderate (2+)(A) Negative [facility] RBC Urine 0-2 0 - 2 /HPF [facility] Urine WBC 0-5 0 - 5 /HPF [facility] Urine Squamous Epithelial Cell 0-2 0 - 2 /HPF [facility] Urine Bacteria None Seen None Seen [facility] Hyaline Casts, Urine 0-2 0 - 2 /LPF [facility] Urine Urine specimen obtained by clean catch procedure / Unknown 05/28/2025 7:40 AM EDT 05/28/2025 10:14 AM EDT [facility] URINE ORDERABLES Final Resu lt [facility] [address] [place] [phone] * Culture, Urine, Routine (05/28/2025 7:40 AM EDT) Only the most recent of4 resultswithin the time period is included. Urine Urine specimen obtained by clean catch procedure / Unknown 05/28/2025 7:40 AM EDT 05/28/2025 10:14 AM EDT Comment:UACC Narrative [facility] - 05/29/2025 9:32 AM EDT Urine Culture Report Result Urine Culture 10,000 to 50,000 cfu/ml Urine Culture Mixed bacterial hailey characteristic of Urine Culture urogenital contamination. Specimen Source: Urine clean catch Kelsie White CRIMINAL INTELLIGENCE ANALYST LAB MICROBIOLOGY - GENERAL ORDE RAYMUNDO Final Result Performing Organization Address [facility]/ZIP Co de Phone Number [facility] [address] [place] [address] [phone] * Protein Creatinine Ratio, Urine (05/10/2025 8:50 AM EDT) Protein, Total, Random Urine <7 <12 mg/dL [facility] Protein/Creatin ine Ratio, Ur TNP <0.2 [facility] Comment:Unable to calculate urine protein creatinine ratio due tolow creatinine or protein result. 05/10/2025 8:50 AM EDT 05/10/2025 11:44 AM EDT us Generic External Data Provider LAB URINE ORDERAB LES Final Result Performing Organization Address [facility] Co de Phone Number [facility] [address] [place] [phone] * Albumin, Random Urine W/Creatinine (05/10/2025 8:50 AM EDT) Creatinine, Urine 85.42 mg/dL [facility] Microalbumin Urine 12.0 mg/L [facility] Microalbum Creatinine Ratio Ur 14.0 <30 ug/mg cr [facility] Comment:Albumin/Creatinine R atio Reference Ranges: Normal: < 30 ug/mg creatinine Microalbuminuria: 30 - 300 ug/mg creatinineClinical Albuminuria: > 300 ug/mg creatinine 05/10/2025 8:50 AM EDT 05/10/2025 11:44 AM EDT us Generic External Data Provider LAB URINE ORDERAB LES Final Result Performing Organization Address [facility] Co de Phone Number [facility] [address] [place] [phone] * TSH with Reflex to Free T4 (05/10/2025 7:54 AM EDT) Only the most recent of4 resultswithin the time period is included. TSH reflex Free T4 2.82 0.32 - 4.0 uIU/mL [facility] 05/10/2025 7:54 AM EDT 05/10/2025 10:59 AM EDT us Generic External Data Provider LAB BLOOD ORDERAB LES Final Result [facility] [address] [place], [place] [phone] * (ABNORMAL) CBC auto differential (05/10/2025 7:54 AM EDT) Only the most recent of2 resultswithin the time period is included. Pathologist [facility] White Blood Count 7.0 4.8 - 10.8 X10*3/uL [facility] Red Blood Count 4.07(L) 4.20 - 5.50 X10*6/uL [facility] Hemoglobin 12.2 12.0 - 16.0 g/dl [facility] Hematocrit 35.5(L) 37.0 - 47.0 % [facility] Mean Corpuscular Volume 87.2 80.0 - 98.0 fL [facility] Mean Corpuscular Hemoglobin 30.0 27.0 - 33.0 pg [facility] Mean Corpuscular HGB Conc 34.4 31.0 - 35.0 g/dl [facility] Red Cell Distribution Width 12.6 11.0 - 16.0 % [facility] Platelet Count 199 160 - 400 X10*3/uL [facility] Mean Platelet Volume 9.7 9.4 - 12.3 fL [facility] Neutrophils Percent Auto 48.2 45 - 73 % [facility] Imm Gran Pct Auto 0.1 0.0 - 0.4 % [facility] Lymphocytes Percent Auto 31.2 20 - 40 % [facility] Monocytes Percent Auto 8.1 2 - 11 % [facility] Eosinophils Percent Auto 11.3(H) 0 - 4 % [facility] Basophils Percent Auto 1.1 0 - 2 % [facility] NRBC Pct Auto 0.0 0.0 - 0.2 /100WBC [facility] Neutrophils Absolute Auto 3.4 2.0 - 8.3 x10*3/uL [facility] Imm Gran Abs Auto 0.01 0.00 - 0.03 X10*3/uL [facility] Lymphocytes Absolute Auto 2.2 1.2 - 4.9 X10*3/uL [facility] Monocytes Absolute Auto 0.6 0.1 - 1.2 X10*3/uL [facility] Eosinophils Absolute Auto 0.8(H) 0.0 - 0.4 X10*3/uL [facility] Basophils Absolute Auto 0.1 0.0 - 0.2 X10*3/uL [facility] NRBC Abs Auto 0.000 0.0 - 0.012 X10*3/uL [facility] 05/10/2025 7:54 AM EDT 05/10/2025 10:59 AM EDT us Generic External Data Provider LAB BLOOD ORDERAB LES Final Result [facility] [address] [place] [phone] * (ABNORMAL) Hemoglobin A1c (05/10/2025 7:54 AM EDT) Hemoglobin A1c 7.0(H) <6.0 % [facility] Comment:Hemoglobin A1C Refer ence Range Adults: 4.8 - 6.0 % Non diabetic: < 6.0 % Goal: < 7.0 %Additional Action Suggested: > 8.0 %Note: Hemoglobin A1c results are invalid for patients with abnormal amounts of HbF. Blood transfusions may impact the HbA1c concentration in the patient sample. Estimated Average Glucose 154 mg/dL [facility] Comment:eAG = Estimated ave rage glucose which is %A1C expressed asaverage glucose, using the formula of the U3M-PbqaefsRnwladz Glucose study (ADAG), Diabetes Care, Vol.31,#8,2007 05/10/2025 7:54 AM EDT 05/10/2025 10:59 AM EDT us Generic External Data Provider LAB BLOOD ORDERAB LES Final Result [facility] [address] [place] [phone] * (ABNORMAL) Lipid Panel, Standard (05/10/2025 7:54 AM EDT) Only the most recent of2 resultswithin the time period is included. Triglycerides 70 <150 mg/dL [facility] Comment:Desirable Triglyceri de: less than 150 mg/dLBorderline High Triglyceride 150-199 mg/dLHigh Triglyceride: 200-499 mg/dLVery High Triglyceride: greater than or equal to 5OO mg/dL Cholesterol 177 <200 mg/dL [facility] Comment:Desirable Cholestero l: less than 200 mg/dLBorderline High Cholesterol: 200-239 mg/dLHigh Cholesterol: greater than 239 mg/dL LDL Cholesterol Calculated 103(H) <100 mg/dL [facility] Comment:Desirable LDL: less than 100 mg/dLNear Optimal/Above Optimal LDL: 110- 129 mg/dLBorderline High LDL: 130-159 mg/dLHigh LDL: 160-189 mg/dLVery High LDL: greater than or equal to 190 mg/dL HDL Cholesterol 60 >40 mg/dL [facility] Comment:Desirable HDL: great er than 40 mg/dL Note: This HDL assay may give artificially low results in patients with liver disease. 05/10/2025 7:54 AM EDT 05/10/2025 10:59 AM EDT us Generic External Data Provider LAB BLOOD ORDERAB LES Final Result [facility] [address] [place] [phone] * (ABNORMAL) Comprehensive Metabolic Panel (05/10/2025 7:54 AM EDT) Sodium 137 135 - 145 mmol/L [facility] Potassium 4.1 3.3 - 5.1 mmol/L [facility] Chloride 108 96 - 108 mmol/L [facility] Carbon Dioxide 22 22 - 29 mmol/L [facility] Anion Gap 11(L) 12 - 20 [facility] Urea Nitrogen (BUN) 25(H) 9 - 16 mg/dL [facility] Creatinine, Serum 1.12 0.5 - 1.4 mg/dL [facility] Estimated Glomerular Filt Rate 48 [facility] Comment:Chronic Kidney Disea se: Estimated GFR < 60 mL/min/1.29v5Auqdod Kidney Disease: Estimated GFR < 15 mL/min/1.73m2 Glucose 124(H) 60 - 115 mg/dL [facility] Calcium 9.7 8.4 - 10.2 mg/dL [facility] Bilirubin, Total 0.5 0.0 - 1.0 mg/dL [facility] Aspartate Amino Transferase 24 5 - 31 U/L [facility] Alanine Aminotransferase 14 0 - 31 U/L [facility] Total Protein 6.6 6.5 - 8.0 g/dL [facility] Albumin Level 4.2 3.5 - 5.0 g/dL [facility] Alkaline Phosphatase 63 39 - 117 U/L [facility] 05/10/2025 7:5 4 AM EDT 05/10/2025 10:59 AM EDT us Generic External Data Provider LAB BLOOD ORDERAB LES Final Result [facility] [address] [place] [phone] * XR Hand 3+ Views Right (04/30/2025 8:55 AM EDT) Anatomical Region Laterality Modality Upper Extremities, Hand Right Radiogra phic Imaging 04/30/2025 8:55 AM EDT Narrative 04/30/2025 9:20 AM EDT [facility] [address] [place] [address] [place] [address] XRay Report Signed Patient: Angely Pineda MR#: [id number] : 1950 Acct:[id number] Age/Sex: 74 / F ADM Date: 04/30/25 Loc: [facility] Attending Dr: Rolanda Thakur MD Ordering Physician: Rolanda Thakur MD Date of Service: 04/30/25 Procedure(s): XR hand RT min 3V Accession Number(s): [id number] cc: Rolanda Thakur MD Reason for Exam: [...] Jesus Shore MD in OV> 04/30/25917 DD/ 0855 TD/TT: 04/30/25 0900 Welfare Director: Procedure Note Donotuseinterpreter, Image - 04/30/2025 [facility] [address] [place] [address] [place] [address] XRay Report Signed Patient: Angely PinedaMR#: [id number] : 1950cct:[id number] Age/Sex: 74 / FADM Date: 04/30/25 Loc: [facility] Attending Dr: Rolanda Thakur MD Ordering Physician: Rolanda Thakur MD Date of Service: 04/30/25 Procedure(s): XR hand RT min 3V Accession Number(s): [id number] cc: Rolanda Thakur MD Reason for Exam: [...] in OV> 04/30/25917 DD/ 4 TD/TT: 04/30/25899 Welfare Director: Rolanda Thakur MD IMG XR PROCEDURES Final Res ult * XR Hand 3+ Views Left (04/30/2025 8:55 AM EDT) Anatomical Region Laterality Modality Upper Extremities, Hand Left Radiogra phic Imaging 04/30/2025 8:55 AM EDT Narrative 04/30/2025 9:19 AM EDT [facility] [address] [place] [address] [place] [address] XRay Report Signed Patient: Angely Pineda MR#: [id number] : 1950 Acct:[id number] Age/Sex: 74 / F ADM Date: 04/30/25 Loc: HO.[facility]GCX Attending Dr: Rolanda Thakur MD Ordering Physician: Rolanda Thakur MD Date of Service: 04/30/25 Procedure(s): XR hand LT min 3V Accession Number(s): [id number] cc: Rolanda Thakur MD Reason for Exam: [...] OV> 04/30/25915 DD/ 4 TD/TT: 04/30/25 09 Welfare Director: Procedure Note Donotuseinterpreter, Image - 04/30/2025 [facility] [place] [address] XRay Report Signed Patient: Erma Pineda#: [id number] : 1950cct:[id number] Age/Sex: 74 / FADM Date: 04/30/25 Loc: .[facility]GCX Attending Dr: Rolanda Thakur MD Ordering Physician: Rolanda Thakur MD Date of Service: 04/30/25 Procedure(s): XR hand LT min 3V Accession Number(s): [id number] cc: Rolanda Thakur MD Reason for Exam: [...] in OV> 04/30/25915 DD/ 4 TD/TT: 04/30/25 0900 Welfare Director: us Rolanda Thakur MD IMG XR PROCEDURES Final Res ult * (ABNORMAL) Urinalysis, Complete, with Reflex to Culture (04/30/2025 8:37 AM EDT) Only the most recent of2 resultswithin the time period is included. Color Urine Dark Yellow [facility] Appearance Urine Clear [facility] PH 6.5 5.0 - 9.0 [facility] Glucose Urine UA Negative Negative mg/dL [facility] Urine Blood Negative Negative [facility] Specific [place] - Urine 1.010 1.005 - 1.025 [facility] Urine Protein Negative Neg-Trace mg/dL [facility] Urine Ketones Negative Negative mg/dL [facility] Nitrite Urine Negative Negative [facility] Leukocyte Esterase Urine Small (1+)(A) Negative [facility] RBC Urine 0-2 0 - 2 /HPF [facility] Urine WBC 0-5 0 - 5 /HPF [facility] Urine Squamous Epithelial Cell 0-2 0 - 2 /HPF [facility] Urine Bacteria None Seen None Seen [facility] Hyaline Casts, Urine 0-2 0 - 2 /LPF [facility] Urine 04/30/2025 8:37 AM EDT 04/30/2025 1:12 PM EDT Narrative [facility] - 04/30/2025 2:16 PM EDT Urine, Clean Catch us Rolanda Thakur MD LAB URINE ORDERABLES Final Result [facility] [address] [place] [phone] * (ABNORMAL) Basic Metabolic Panel (04/12/2025 10:26 AM EDT) Sodium 136 135 - 145 mmol/L [facility] Potassium 5.0 3.3 - 5.1 mmol/L [facility] Chloride 106 96 - 108 mmol/L [facility] Carbon Dioxide 23 22 - 29 mmol/L [facility] Anion Gap 12 12 - 20 [facility] Urea Nitrogen (BUN) 22(H) 9 - 16 mg/dL [facility] Creatinine, Serum 0.95 0.5 - 1.4 mg/dL [facility] Estimated Glomerular Filt Rate 58 [facility] Comment:Chronic Kidney Disea se: Estimated GFR < 60 mL/min/1.72u0Ztsguh Kidney Disease: Estimated GFR < 15 mL/min/1.73m2 Glucose 147(H) 60 - 115 mg/dL [facility] Calcium 9.7 8.4 - 10.2 mg/dL [facility] Blood Venous blood specimen / Unknown 04/12/2025 10:26 AM EDT 04/12/2025 11:02 AM EDT [facility] LAB BLOOD ORDERABLES Final Re sult [facility] [address] [place] [phone] * T-SPOT??.TB (03/20/2025 9:09 AM EDT) Only the most recent of2 resultswithin the time period is included. Pathologist [facility] T-Spot. TB Negative Negative 140 [facility] Comment: A negative test result does not [...] For Neg Control 1 [facility] Panel B Spot Count Corrected For Neg Control 1 [facility] Negative Control Passed [facility] Positive Control Passed [facility] Comment: For additional information, please refer to http://education.scPharmaceuticals/faq/ZIP513 (This link is being provided for informational/ educational purposes only.) 03/20/2025 9:09 AM EDT 03/20/2025 9:11 AM EDT Rolanda Thakur MD LAB BLOOD ORDERABLES Final Result [address], [place] [address] [facility] [address] [facility] [place] [phone] * Slide Review (03/19/2025 3:13 PM EDT) Slide Review VERIFIED [facility] 03/19/2025 3:13 PM EDT 03/19/2025 5:56 PM EDT us Rolanda Thakur MD LAB BLOOD ORDERABLES Final Result [facility] [address] [place] [phone] * Hm Mammography (12/17/2024 8:40 AM EDT) Anatomical Region Laterality Modality Other us Historical Provider HEALTH MAINTENANCE Final Result * Cologuard?? colon cancer screening (08/09/2024 8:30 AM EST) [facility] Cologuard Result Negative Negative 08/18/20 24 11:52 PM EST [facility] (CLIA #:[id number]) Comment: NEGATIVE TEST RESULT. A negative Cologuard [...] (Dioni Kelly al, N Engl J Med 2014;370(14):7975-6577) The normal value (reference range) for this assay is negative. COLOGUARD RE-SCREENING RECOMMENDATION: Periodic colorectal cancer screening is an important part of preventive healthcare for asymptomatic individuals at average risk for colorectal cancer. Following a negative Cologuard result, the English Cancer Society and U.S. Multi-Society Task Force screening guidelines recommend a Cologuard re-screening interval of 3 years. References: English Cancer Society Guideline for Colorectal Cancer Screening: https://www.cancer.org/cancer/magmr-ixywlb-keiezr/rsihlraha-ciwdqmkwx-lzvpvao/ac s-rec ommendations.html.; Santiago DK, Ileana CR, Emery LalaK, Colorectal Cancer Screening: Recommendations for Physicians and Patients from the U.S. Multi-Society Task Force on Colorectal Cancer Screening , Am J Gastroenterology 2017; 112:9173-2772. TEST DESCRIPTION: Composite algorithmic analysis of stool [...] (Dioni Kelly al, N Engl J Med 2014;370(14):1975-1323.) Cologuard may produce a false negative or false positive result (no colorectal cancer or precancerous polyp present at colonoscopy follow up). A negative Cologuard test result does not guarantee the absence of CRC or advanced adenoma (pre-cancer). The current Cologuard screening interval is every 3 years. (English Cancer Society and U.S. Multi-Society Task Force). Cologuard performance data in a 10,000 patient pivotal study using colonoscopy as the reference method can be accessed at the following location: www.Everwise/results. Additional description of the Cologuard test process, warnings and precautions can be found at www.HeadMixrd.next[employer]ociety[employer] Inc[employer] Stool specimen (specimen) 08/09/2024 8:30 AM EST 08/10/2024 2:47 PM EST Rolanda Thakur MD LAB MOLECULAR DIAGNOSTICS O RDERABLES Final Result [facility] (CLIA #:[id number]) [address] [place] [address], * Hepatitis C Antibody with Reflex to HCV, RNA, Quantitative, Real-Time PCR (07/17/2024 3:20 PM EST) Hepatitis C Antibody Nonreactive Nonreactive [facility] Comment:Antibodies to HCV no t detected; does not exclude early acuteHCV infection. Blood Venous blood specimen / Unknown 07/17/2024 3:20 PM EST 07/17/2024 5:23 PM EST Rolanda Thakur MD LAB BLOOD ORDERABLES Final Result [facility] [address] [place] [phone] [phone] from Last 3 Months or Most Recently Relevant to Health Maintenance Insurance [facility] MEDICARE REPLACEMENT [address] [place] [address] Care Teams Project Crew Worker Relationship Specialty Start Date End Date Rolanda Thakur MD [address] [place] [address] PCP - General Internal Medicine 09/19/22
--- OUTSIDE RECORDS SUMMARY | 2025-06-18 07:51 | XMS_ITS | Encounter Summary ---
Author Organization [employer] Address [address] [place] [address] Care Team Providers Care Picker Box Operator Name Role Phone Rolanda Thakur MD Primary Care Provider [phone]- [phone] Encounter Details Date Type Department Care Team ([facility] st Contact Info) Description 08/18/2023 Orders Only [facility] CHC MED & PEDS [address] [place], [place] [phone] Rolanda Thakur MD [address] [place] [address] Social History Tobacco Use Types Packs/Day Years [...] on filedocumented in this encounter Care Teams Picker Box Operator Relationship Specialty Start Date End Date Rolanda Thakur MD [address] [place] [address] PCP - General Internal Medicine 09/19/22 documented as of this encounter
--- OUTSIDE RECORDS SUMMARY | 2025-06-18 07:51 | XMS_ITS | Encounter Summary ---
Author Organization [employer] Address [address] [address] Care Team Providers Care Office Clerk Assistant Name Role Phone Rolanda Thakur MD Primary Care Provider [phone]- [phone] Reason for Visit * Reason Onset Date Comments Nurse Triage 09/24/2024 Encounter Details Date Type Department Care Team ([facility] st Contact Info) Description 09/24/2024 Telephone [facility] [address] [place] [address] Rolanda Thakur MD [address] [place], [place] [phone] Nurse Triage Social History Tobacco Use Types [...] WIC for today as no appts in [facility]. Pt states gets panic attacks if has to wait . Pt advised unfortunately no appts in [facility]> Unable to schedule ahead for WIC. Pt states will seek [facility] Walk IN clinic on [facility] in [place]. Will send to team as FYI to [...] acuity questions The caller accepted this outcome. [phone] documented in this encounter Plan of Treatment Not on file documented as of this encounter Visit Diagnoses Not on filedocumented in this encounter Additional Health Concerns Assessment Noted Time PHQ-9 Depression Total Score: 2 05/13/20 24 9:24 AM EDT documented as of this encounter Care Teams Office Clerk Assistant Relationship Specialty Start Date End Date Rolanda Thakur MD [address] [place] [address] PCP - General Internal Medicine 09/19/22 documented as of this encounter
--- OUTSIDE RECORDS SUMMARY | 2025-06-18 07:51 | XMS_ITS | Encounter Summary ---
Author Organization [employer] Address [address] [place] [address] [facility] [place] [address] Care Team Providers Care Computing Machine Operator Name Role Phone Rolanda Thakur MD Primary Care Provider [phone] Reason for Referral * Consultation (Routine) - Closed Specialty Diagnoses / Procedures Referred By Freddy meadows Referred To Contact Neurology Diagnoses Other polyneuropathy Rolanda Thakur MD [address] [place] [address] Phone: tel: fax: [facility] [address] [place], [place] Phone: tel: fax: Referral ID Status Reason Start Date Expiration Date V isits Requested Visits Authorized [id number] Closed Specialty Services Required 11/22/2023 11/21/2024 1 1 * Consultation (Routine) - Closed Specialty Diagnoses / Procedures Referred By Freddy meadows Referred To Contact Physiatry Diagnoses Other polyneuropathy Rolanda Thakur MD [address] [place] [address] Phone: tel: fax: Referral ID Status Reason Start Date Expiration Date V isits Requested Visits Authorized [id number] Closed Specialty Services Required 11/17/2023 11/16/2024 1 1 Encounter Details Date Type Department Care Team ([facility] st Contact Info) Description 11/16/2023 Orders Only [facility] CHC MED & PEDS [address] [place] [address] Rolanda Thakur MD [address] [place] [address] Other polyneuropathy (Primary Dx) Social History Tobacco [...] Primary documented in this encounter Care Teams Computing Machine Operator Relationship Specialty Start Date End Date Rolanda Thakur MD [address] [place] [address] PCP - General Internal Medicine 09/19/22 documented as of this encounter
--- OUTSIDE RECORDS SUMMARY | 2025-06-18 07:51 | XMS_ITS | Encounter Summary ---
Author Organization [employer] Address [address] [place] [address] Care Team Providers Care House Fellow Name Role Phone Rolanda Thakur MD Primary Care Provider [phone] Reason for Visit * Reason Onset Date Comments Med Refill 12/26/2024 Encounter Details Date Type Department Care Team ([facility] st Contact Info) Description 12/26/2024 Refill [facility] CHC MED & PEDS [address] [place] [address] Rolanda Thakur MD [address] [place] [address] Acquired hypothyroidism Social History Tobacco Use Types [...] as of this encounter Care Teams House Fellow Relationship Specialty Start Date End Date Rolanda Thakur MD [address] [place] [address] PCP - General Internal Medicine 09/19/22 documented as of this encounter
--- OUTSIDE RECORDS SUMMARY | 2025-06-18 07:51 | XMS_ITS | Encounter Summary ---
Author Organization [employer] Address [address] [place] [address] Care Team Providers Care Dairy Cattle Farm Worker Name Role Phone Rolanda Thakur MD Primary Care Provider [phone] Reason for Visit * Reason Onset Date Comments Nurse Triage 01/03/2024 Encounter Details Date Type Department Care Team ([facility] st Contact Info) Description 01/03/2024 Telephone [facility] MEDICINE [address] [place] [address] Rolanda Thakur MD [address] [place], [place] [phone] Nurse Triage Social History Tobacco Use Types [...] filedocumented in this encounter Care Teams Dairy Cattle Farm Worker Relationship Specialty Start Date End Date Rolanda Thakur MD [address] [place] [address] PCP - General Internal Medicine 09/19/22 documented as of this encounter
--- OUTSIDE RECORDS SUMMARY | 2025-06-18 07:51 | XMS_ITS | Encounter Summary ---
Author Organization [employer] Address [address] [place] [address] Care Team Providers Care Boning Room Worker Name Role Phone Rolanda Thakur MD Primary Care Provider [phone]- [phone] Reason for Referral * Consultation (Routine) - Canceled Specialty Diagnoses / Procedures Referred By Contac t Referred To Contact Endocrinology Diagnoses Type 2 diabetes mellitus without complication, without long-term current use of insulin (HCC) Rolanda Thakur MD [address] [place] [address] Phone: tel: fax: Referral ID Status Reason Start Date Expiration Date Visits Requested Visits Authorized [id number] Canceled Specialty Services Required 10/08/2024 10/08/2025 1 1 Encounter Details Date Type Department Care Team (Late st Contact Info) Description 10/08/2024 Orders Only [facility] CHC MED & PEDS [address] [place] [address] Rolanda Thakur MD [address] [place] [address] Type 2 diabetes mellitus without complication, without [...] without long-term current use of insulin ([facility]) Expected: 10/08/2024 (Approximate), Expires: 10/08/2025 documented as of this encounter Procedures Procedure Name Priority Date/Time Associated Diagnosis Comments HEMOGLOBIN A1C Routine 02/05/2025 12:22 PM EDT Type 2 diabetes mellitus without complication, without long-term current use of insulin ([facility]) documented in this encounter Results * (ABNORMAL) Hemoglobin A1c (02/05/2025 12:22 PM EDT) Hemoglobin A1c 7.4(H) <6.0 % [facility] Comment:Hemoglobin A1C Refer ence Range Adults: 4.8 - 6.0 % Non diabetic: < 6.0 % Goal: < 7.0 %Additional Action Suggested: > 8.0 %Note: Hemoglobin A1c results are invalid for patients with abnormal amounts of HbF. Blood transfusions may impact the HbA1c concentration in the patient sample. Estimated Average Glucose 166 mg/dL [facility] Comment:eAG = Estimated ave rage glucose which is %A1C expressed asaverage glucose, using the formula of the E4N-LgeuyvjTikqqfa Glucose study (ADAG), Diabetes Care, Vol.31,#8,Mar. 2007 Blood Venous blood specimen / Unknown 02/05/2025 12:22 PM EDT 02/05/2025 1:20 PM EDT Rolanda Thakur MD LAB BLOOD ORDERABLES Final Result [facility] [address] [place] [phone] [phone] documented in this encounter Visit Diagnoses Diagnosis Type 2 diabetes mellitus without complication, without long-term current use of insulin (HCC)- Primary documented in this encounter Additional Health Concerns Assessment Noted Time PHQ-9 Depression Total Score: 2 05/13/20 24 9:24 AM EDT documented as of this encounter Care Teams Boning Room Worker Relationship Specialty Start Date End Date Rolanda Thakur MD [address] [place] [address] PCP - General Internal Medicine 09/19/22 documented as of this encounter
--- OUTSIDE RECORDS SUMMARY | 2025-06-18 07:51 | XMS_ITS | Encounter Summary ---
Author Organization [employer] Address [address] [place] [address] Care Team Providers Care Basket Assembler Name Role Phone Rolanda Thakur MD Primary Care Provider [phone]- [phone] Encounter Details Date Type Department Care Team ([facility] st Contact Info) Description 12/07/[address] [facility] MEDICINE [address] [place] [phone] Rolanda Thakur MD [address] [place] [address] Social History Tobacco Use Types Packs/Day Years [...] on filedocumented in this encounter Care Teams Basket Assembler Relationship Specialty Start Date End Date Rolanda Thakur MD [address] [place] [address] PCP - General Internal Medicine 09/19/22 documented as of this encounter
--- OUTSIDE RECORDS SUMMARY | 2025-06-18 07:51 | XMS_ITS | Encounter Summary ---
Author Organization [employer] Address [address] [address] Care Team Providers Care Animal Services Officer Name Role Phone Rolanda Thakur MD Primary Care Provider [phone]- [phone] Reason for Visit * Reason Onset Date Comments Nurse Triage 08/09/2024 Encounter Details Date Type Department Care Team ([facility] st Contact Info) Description 08/09/2024 Telephone [facility] MEDICINE [address] [place] [address] Rolanda Thakur MD [address] [place], [place] [phone] Nurse Triage Social History Tobacco Use Types [...] and reasons to call back. Reviewed [facility] operating hours and that wait times vary. Protocol Used: Neck Pain or Stiffness (Adult) Protocol-Based Disposition: See in Office or Video Visit Today or Tomorrow Future Appointments Date Time Provider Department Center 08/10/2024 9:40 AM [facility] 2 WALK-IN [facility] Insurance verified as active per Real Time Eligibility in [facility]. Positive Triage Question: * Tenderness [...] documented as of this encounter Care Teams Animal Services Officer Relationship Specialty Start Date End Date Rolanda Thakur MD [address] [place] [address] PCP - General Internal Medicine 09/19/22 documented as of this encounter
--- OUTSIDE RECORDS SUMMARY | 2025-06-18 07:51 | XMS_ITS | Encounter Summary ---
Author Organization [employer] Address [address] [address] Care Team Providers Care Arm Maker Name Role Phone Rolanda Thakur MD Primary Care Provider [phone]- [phone] Reason for Visit * Reason Comments Med Refill Encounter Details Date Type Department Care Team ([facility] st Contact Info) Description 08/27/2024 Refill [facility] MEDICINE [address] [place] [address] Rolanda Thakur MD [address] [place], [place] [phone] Type 2 diabetes mellitus without complication, without long-term current use of insulin ([facility]) Social History Tobacco Use Types Packs/Day Years [...] documented as of this encounter Care Teams Arm Maker Relationship Specialty Start Date End Date Rolanda Thakur MD [address] [place] [address] PCP - General Internal Medicine 09/19/22 documented as of this encounter
--- OUTSIDE RECORDS SUMMARY | 2025-06-18 07:51 | XMS_ITS | Encounter Summary ---
Author Organization [employer] Address [address] [place] [address] Care Team Providers Care Director Foundation Name Role Phone Rolanda Thakur MD Primary Care Provider [phone] Reason for Referral * Consultation (Routine) - Closed Specialty Diagnoses / Procedures Referred By Contac t Referred To Contact Endocrinology Diagnoses Type 2 diabetes mellitus without complication, without long-term current use of insulin (HCC) Rolanda Thakur MD [address] [place] [address] Phone: tel: fax: [facility] [address] [place] [phone] Phone: tel: fax: Referral ID Status Reason Start Date Expiration Date V isits Requested Visits Authorized [id number] Closed Specialty Services Required 08/26/2024 08/26/2025 1 1 Encounter Details Date Type Department Care Team (Late st Contact Info) Description 08/26/2024 Orders Only [facility] CHC MED & PEDS [address] [place] [address] Rolanda Thakur MD [address] [place] [phone] Type 2 diabetes mellitus without complication, without [...] long-term current use of insulin ([facility]/HCC) Expected: 08/26/2024 (Approximate), Expires: 08/26/2025 documented as of this encounter Visit Diagnoses Diagnosis Type 2 diabetes mellitus without complication, without long-term current use of insulin (HCC)- Primary documented in this encounter Additional Health Concerns Assessment Noted Time PHQ-9 Depression Total Score: 2 05/13/20 24 9:24 AM EDT documented as of this encounter Care Teams Director Foundation Relationship Specialty Start Date End Date Rolanda Thakur MD [address] [place] [address] PCP - General Internal Medicine 09/19/22 documented as of this encounter
--- OUTSIDE RECORDS SUMMARY | 2025-06-18 07:51 | XMS_ITS | Encounter Summary ---
Author Organization [employer] Address [address] [address] Care Team Providers Care Truck Operator Name Role Phone Rolanda Thakur MD Primary Care Provider +[phone]- [phone] Reason for Visit * Reason Onset Date Comments Med Refill 12/26/2024 Encounter Details Date Type Department Care Team (Late st Contact Info) Description 12/26/2024 Refill [facility] MEDICINE [address] [place] [address] Rolanda Thakur MD [address] [place] [address] Social History Tobacco Use Types Packs/Day Years [...] documented as of this encounter Care Teams Truck Operator Relationship Specialty Start Date End Date Rolanda Thakur MD [address] [place] [address] PCP - General Internal Medicine 09/19/22 documented as of this encounter
--- OUTSIDE RECORDS SUMMARY | 2025-06-18 07:51 | XMS_ITS | Encounter Summary ---
Author Organization [employer] Address [address] [place] [address] Care Team Providers Care Pipe And Test Supervisor Name Role Phone Rolanda Thakur MD Primary Care Provider [phone]- [phone] Reason for Visit * Reason Comments Med Refill Encounter Details Date Type Department Care Team ([facility] Contact Info) Description 05/22/2025 Refill [facility] CHC MED & PEDS [address] [place] [address] Rolanda Thakur MD [address] [place] [address] Social History Tobacco Use Types Packs/Day Years [...] documented as of this encounter Care Teams Pipe And Test Supervisor Relationship Specialty Start Date End Date Rolanda Thakur MD [address] [place] [address] PCP - General Internal Medicine 09/19/22 documented as of this encounter
--- OUTSIDE RECORDS SUMMARY | 2025-06-18 07:51 | XMS_ITS | Encounter Summary ---
Author Organization [employer] Address [address] [place] [address] Care Team Providers Care Aircraft Pneudraulics Repairer Name Role Phone Rolanda Thakur MD Primary Care Provider +1- [phone] Reason for Visit * Reason Onset Date Comments Med Refill 10/27/2023 Encounter Details Date Type Department Care Team (Late st Contact Info) Description 10/27/2023 Telephone [facility] MEDICINE [address] [place] [address] Rolanda Thakur MD [address] [place], [place] [phone] Med Refill Social History Tobacco Use Types [...] on medication 125 Please contact pt @ [phone] No meds. * Telephone Encounter - Haylie Cantor RN - 10/27/2023 3:44 PM EST Patient reporting alternating days of synthroid 125 mcg and synthroid 137 mcg. Requesting new script for synthroid 125 mcg. Please review and advise, thanks. Tc from pt requesting levothyroxine (Synthroid) 125 MCG tablet, continuity writer do not see med in chart but pt stated has been taking this medication for 10 years, pt switch 137 and 125 every day, continuity writer attempted to contact pharmacy for clarifications but [facility] [address] open at 9:00AM. * Telephone Encounter - Jenny Neff - 10/27/2023 8:31 AM EST Tc from pt requesting levothyroxine (Synthroid) 125 MCG tablet, continuity writer do not see med in chart but pt stated has been taking this medication for 10 years, pt switch 137 and 125 every day, continuity writer attempted to contact pharmacy for clarifications but [facility] [address] open at 9:00AM. documented in this encounter Plan of Treatment Not on file documented as of this encounter Visit Diagnoses Not on filedocumented in this encounter Care Teams Aircraft Pneudraulics Repairer Relationship Specialty Start Date End Date Rolanda Thakur MD [address] [place] [address] PCP - General Internal Medicine 09/19/22 documented as of this encounter
--- OUTSIDE RECORDS SUMMARY | 2025-06-18 07:51 | XMS_ITS | Encounter Summary ---
Author Organization [employer] Address [address] [place] [address] Care Team Providers Care Butcher All Round Name Role Phone Rolanda Thakur MD Primary Care Provider [phone] Reason for Referral * Consultation (Routine) - Closed Specialty Diagnoses / Procedures Referred By Contac t Referred To Contact Podiatry Diagnoses Type 2 diabetes mellitus without complication, without long-term current use of insulin (HCC) Rolanda Thakur MD [address] [place] [address] Phone: tel: fax: Carl Avitia DPM Phone: tel: fax: Referral ID Status Reason Start Date Expiration Date V isits Requested Visits Authorized [id number] Closed Specialty Services Required 11/01/2023 10/31/2024 1 1 Encounter Details Date Type Department Care Team (Late st Contact Info) Description 10/23/2023 Orders Only [facility] CHC MED & PEDS [address] [place] [address] Rolanda Thakur MD [address] [place] [address] Acquired hypothyroidism (Primary Dx); Type 2 diabetes [...] complication, without long-term current use of insulin ([facility]/HCC) Expected: 11/01/2023 (Approximate), Expires: 10/31/2024 documented as of this encounter Visit Diagnoses Diagnosis Acquired hypothyroidism- Primary Unspecified hypothyroidism Type 2 diabetes mellitus without complication, without long-term current use of insulin ([facility]) documented in this encounter Care Teams Butcher All Round Relationship Specialty Start Date End Date Rolanda Thakur MD [address] [place] [address] PCP - General Internal Medicine 09/19/22 documented as of this encounter
--- OUTSIDE RECORDS SUMMARY | 2025-06-18 07:51 | XMS_ITS | Encounter Summary ---
Author Organization [employer] Address [address] [address] Care Team Providers Care Parcel Post Officer Name Role Phone Rolanda Thakur MD Primary Care Provider +1- [phone] Reason for Visit * Reason Onset Date Comments Med Refill 12/26/2024 Encounter Details Date Type Department Care Team (Late st Contact Info) Description 12/26/2024 Refill [facility] MEDICINE [address] [place] [address] Rolanda Thakur MD [address] [place], [place] [phone] Neck pain on left side Social History [...] Date End Date Rolanda Thakur MD [address] [place] [address] PCP - General Internal Medicine 09/19/22 documented as of this encounter
--- OUTSIDE RECORDS SUMMARY | 2025-06-18 07:51 | XMS_ITS | Encounter Summary ---
Author Organization [employer] Address [address] [place] [address] Care Team Providers Care Chronic Disease Epidemiologist Name Role Phone Rolanda Thakur MD Primary Care Provider +1- [phone] Encounter Details Date Type Department Care Team [...] on filedocumented in this encounter Care Teams Chronic Disease Epidemiologist Relationship Specialty Start Date End Date Rolanda Thakur MD [address] [facility] [place] [address] PCP - General Internal Medicine 09/19/22 documented as of this encounter
--- OUTSIDE RECORDS SUMMARY | 2025-06-18 07:51 | XMS_ITS | Encounter Summary ---
Author Organization [employer] Address [address] [place] [address] Care Team Providers Care Oracle Database Administrator Name Role Phone Rolanda Thakur MD Primary Care Provider +1- [phone] Reason for Visit * Reason Onset Date Comments Referral 11/16/2023 Encounter Details Date Type Department Care Team ([facility] Contact Info) Description 11/16/2023 Telephone [facility] CHC MED & PEDS [address] [place], [place] [phone] Rolanda Thaukr MD [address] [place] [address] Referral Social History Tobacco Use Types Packs/Day [...] MyChart encounter. Any questions, contact pt at [phone] documented in this encounter Plan of Treatment Not on file documented as of this encounter Visit Diagnoses Not on filedocumented in this encounter Care Teams Oracle Database Administrator Relationship Specialty Start Date End Date Rolanda Thakur MD [address] [place] [address] PCP - General Internal Medicine 09/19/22 documented as of this encounter
--- OUTSIDE RECORDS SUMMARY | 2025-06-18 07:51 | XMS_ITS | Encounter Summary ---
Author Organization [employer] Address [address] [address] Care Team Providers Care Drainman Name Role Phone Rolanda Thakur MD Primary Care Provider +1- [phone] Reason for Visit * Reason Onset Date Comments FYI 10/11/2024 Encounter Details Date Type Department Care Team ([facility] st Contact Info) Description 10/11/2024 Telephone [facility] MEDICINE [address] [place] [address] Rolanda Thakur MD [address] [place], [place] [phone] FYI Social History Tobacco Use Types Packs/Day [...] documented as of this encounter Care Teams Drainman Relationship Specialty Start Date End Date Rolanda Thakur MD [address] [place] [address] PCP - General Internal Medicine 09/19/22 documented as of this encounter
== END 2025-06-18 08:38 | disposition home or self-care (01) ==
PROVIDERS: PCP Internal Medicine; Visit Provider Physician Assistant
DX: M53.3 Sacrococcygeal disorders, not elsewhere classified (principal); W19.XXXA Unspecified fall, initial encounter

== ENCOUNTER 2025-06-18 07:47 | Outpatient (REF) | payer MEDICARE, SELFPAY ==
--- NOTE | ~2025-06-18 | XR_ITS ---
EXAMINATION: XR SACRUM AND COCCYX CLINICAL INFORMATION: W19.XXXA - Unspecified fall, initial encounter COMPARISON: None available. TECHNIQUE: 2 views of the sacrum and 2 views of the coccyx were obtained. FINDINGS: No fracture or dislocation. Severe degenerative changes of the visualized lower lumbar spine. Soft tissues are unremarkable. XR/XR sacrum coccyx min 2V IMPRESSION: No fracture. Degenerative changes of the lower lumbar spine. Electronically signed by: Anabelle Sargent MD 06/18/2025 09:03 AM EDT
== END 2025-06-18 07:48 | disposition home or self-care (01) ==
LOC: HO.HMGCX 07:47
PROVIDERS: PCP Internal Medicine; Visit Provider Physician Assistant
DX: M53.3 Sacrococcygeal disorders, not elsewhere classified (principal); W01.0XXA Fall on same level from slipping, tripping and stumbling without subsequent striking against object, initial encounter; Y92.009 Unspecified place in unspecified non-institutional (private) residence as the place of occurrence of the external cause
CPT/HCPCS: 72220; 99212

== ENCOUNTER → 2025-06-18 08:40 | Outpatient (BNV) | payer MEDICARE, SELFPAY | PROVIDERS: PCP Internal Medicine; Visit Provider Radiology Diagnostic Radiology | DX: M47.816 Spondylosis without myelopathy or radiculopathy, lumbar region (principal); W19.XXXA Unspecified fall, initial encounter | CPT/HCPCS: 72220 ==

== ENCOUNTER 2025-07-04 08:37 | Outpatient (REF) | payer MEDICARE, SELFPAY | END 2025-07-04 08:38 | disposition home or self-care (01) | LOC: HO.HMGCLDS 08:37 | PROVIDERS: PCP Internal Medicine; Visit Provider Internal Medicine | DX: N30.00 Acute cystitis without hematuria (principal); Z13.89 Encounter for screening for other disorder | CPT/HCPCS: 81003; 87086; 99212 ==

== ENCOUNTER 2025-07-04 08:37 | Outpatient (AMB) | payer MEDICARE, SELFPAY ==
[2025-07-04 08:39] VITALS: BP 150/70; PULSE 74; O2SAT 99; BMI 25.4
--- NOTE | 2025-07-04 08:39 | AM.OFFWIN_ITS ---
Intake Vital Signs 07/04/25 08:39 Height 5 ft 4 in Weight 148 lb BMI 25.4 BP 150/70 H Blood Pressure Location Lt brachial Position Sitting Pulse 74 Pulse Source Pulse Oximeter Pulse Oximetry (%) 99 Oxygen Delivery Method Room Air Intake Visit Reasons: EP lower back pain Intake Note: Patient presents c/o bilateral buttocks pain x2 days. Patient has sciatica problems and pain switches sides daily. Patient Tobacco Use Status: Never used Tobacco Allergies meloxicam Allergy (Mild, Verified 07/04/25 08:44) Dizziness ciprofloxacin Allergy (Verified 07/04/25 08:44) Unknown sulfamethoxazole (From Bactrim) Allergy (Verified 07/04/25 08:44) Unknown trimethoprim (From Bactrim) Allergy (Verified 07/04/25 08:44) Unknown gabapentin (GABAPENTIN) Adverse Reaction (Mild, Verified 07/04/25 08:44) NAUSEA acetaminophen (From PERCOCET) Adverse Reaction (Unknown, Verified 07/04/25 08:44) VOMITTING codeine (CODEINE) Adverse Reaction (Unknown, Verified 07/04/25 08:44) VOMITTING meperidine (From DEMEROL) Adverse Reaction (Unknown, Verified 07/04/25 08:44) VOMITTING morphine (MORPHINE) Adverse Reaction (Unknown, Verified 07/04/25 08:44) CANT OPEN HER EYES oxycodone (From PERCOCET) Adverse Reaction (Unknown, Verified 07/04/25 08:44) VOMITTING scallops (SCALLOPS) Adverse Reaction (Unknown, Verified 07/04/25 08:44) ABD PAIN Do you need a note to return to daycare/school/sports/work: Yes HPI HPI Comments History of Present Illness Details History - The patient is a 74-year-old female pr esenting with concers about sciatica and a urinary tract infection. - Sciatica: The patient reports persiste nt pain in the buttocks, with the right side being more affected today. - The pain is not sharp or shooting but is associated with low back pain, into her buttocks. - The patient has experienced frequent u rination and a sensation of incomplete bladder emptying. - The patient is cautious about taking h ot baths due to a history of UTIs. - No fevers or loss of control of bladde r or bowels. Review of Systems - Neurological: Reports pain in the butt ocks, denies sharp shooting pain. - Genitourinary: Reports frequent urinat ion, denies loss of bowel control. All systems reviewed and are unremarkable except as noted in HPI Physical Exam General: Cooperative, healthy appearing, comfortable, no acute distress and well developed Orientation: Patient oriented x3 Limitations: No limitations Head: Normal to inspection Ears: Hearing grossly normal bilaterally Face and sinus: Normal facial exam Neck: Normal visual inspection and Yes full ROM Respiratory: Normal respiratory effort and able to speak in complete sentences. 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 Tobacco Use Status: Never used Tobacco Physical Exam Vital Signs: Last Vital Signs Pulse 74 07/04/25 08:39 BP 150/70 H 07/04/25 08:39 Pulse Ox 99 07/04/25 08:39 Oxygen Delivery Method Room Air 07/04/25 08:39 BMI result Body Mass Index 25.4 Results AMB Urinalysis, Automated UA Leukoctes 70 Ean/uL Last Edit by Lanny Lynne CMA on 07/04/25 09:11 UA Nitrite Negative Last Edit by Lanny Lynne CMA on 07/04/25 09:11 UA Urobilinogen 0.2 mg/dL Last Edit by Lanny Lynne CMA on 07/04/25 09: 11 UA Protein 0 mg/dL Last Edit by Lanny Lynne CMA on 07/04/25 09:11 UA pH 6.0 Last Edit by Lanny Lynne CMA on 07/04/25 09:11 UA Blood 0 Jadon/uL Last Edit by Lanny Lynne CMA on 07/04/25 09:11 UA Specific Gaston 1.015 Last Edit by Lanny Lynne CMA on 07/04/25 09 :11 UA Ketone Negative Last Edit by Lanny Lynne CMA on 07/04/25 09:11 UA Bilirubin 0 mg/dL Last Edit by Lanny Lynne CMA on 07/04/25 09:11 UA Glucose 0 mg/dL Last Edit by Lanny Lynne CMA on 07/04/25 09:11 Results Reviewed Results Reviewed: Laboratory Last Values Urine pH (Auto) 6.0 07/04/25 09:10 Specific Gaston (Auto) 1.015 07/04/25 09:10 Urine Protein (Auto) 0 mg/dL 07/04/25 09:10 Glucose (UA)(Auto) 0 mg/dL 07/04/25 09:10 Urine Ketones (Auto) Negative 07/04/25 09:10 Urine Blood (Auto) 0 Jadon/uL 07/04/25 09:10 Urine Nitrite (Auto) Negative 07/04/25 09:10 Urine Bilirubin (Auto) 0 mg/dL 07/04/25 09:10 Urine Urobilinogen (Auto) 0.2 mg/dL 07/04/25 09:10 Leukocyte Esterase (Auto) 70 Ean/uL L* 07/04/25 09:10 Assessment & Plan Assessment & Plan (1) Urinary tract infection: Code(s): N39.0 - Urinary tract infection, site not specified Qualifiers: Urinary tract infection type: acute cystitis Hematuria presence: without hematuria Qualified Code(s): N30.00 - Acute cystitis without hematuria Plan: Plan - Performed urinalysis to evaluate for urinary tract infection, UA + leuks, neg blood, neg nitrties. Will treat based on symptoms. - Sent urine culture. - Follow up, as scheduled, with urology on 08/11. Patient was informed and verbally consented to the use of an ambient scribe for clinic note documentation during this visit. Orders: Orders Urine Culture Today N39.0 - Urinary tract infection, site not specified AMB Urinalysis Automated Today Z13.9 - Encounter for screening, unspecified Medications: New cefuroxime axetil 500 mg PO Q12H 10 tabs 0RF Coding Level of Care Code New Pt Level 3 (91077) Diagnoses Acute cystitis without hematuria N30.00 Urinary tract infection type: acute cystitis Hematuria presence: without hematuria
--- OUTSIDE RECORDS SUMMARY | 2025-07-04 08:50 | XMS_ITS | Encounter Summary ---
Author Organization [employer] Address [address] [place] [address] Care Team Providers Care Fruit Press Operator Name Role Phone Rolanda Thakur MD Primary Care Provider +1- [phone] Reason for Visit * Reason Comments Med Refill Encounter Details Date Type Department Care Team ([facility] st Contact Info) Description 03/02/2025 Refill [facility] CHC MED & PEDS [address] [place], [place] [phone] Rolanda Thakur MD [address] [place] [address] Diabetic polyneuropathy associated with type 2 diabetes [...] documented as of this encounter Care Teams Fruit Press Operator Relationship Specialty Start Date End Date Rolanda Thakur MD [address] [place] [address] PCP - General Internal Medicine 09/19/22 documented as of this encounter
--- OUTSIDE RECORDS SUMMARY | 2025-07-04 08:50 | XMS_ITS | Continuity of Care Document ---
Author Organization [facility] [address] [place] [address] Phone [phone] Care Team Providers Care Boilermaking Supervisor Name Role Phone Rolanda Thakur M.D. Care Team Information Re ceiver [phone] Problems Active Problems Provider Date Type 2 [...] SIG Qnty Indications Order ing Provider Date [id number] Tablets 1 tab by mouth every day 90tabs Beauzile Thecarlain M.D. Losartan Slsbfqtqi031zw Tablets 1 tab by mouth every day BeauzileRolanda M.DNaman Clonidine HCL0.1mg Tablets Beauzile Thevenin M.DNaman Buspirone HCL5mg Tablets 1 tab by mouth twice a day BepachecoleRolanda M.DNaman Clonazepam0.5mg Tablets Take 1 Tablet By Mouth Every Day as Needed For Panic Attacks Beauzile, Thevenin, M.D. Aspirin Low Prez73hq Tablets Rolanda Morrissey M.D. Cyclobenzaprine IXO30xl Tablets Take 1 Tablet By Mouth Every 8 Hours Rolanda Thakur M.D. Metformin ZUV549hg Tablets Take 1 Tablet By Mouth Twice Daily Demi Brothers MD Mdbfecfjr06uw Tablets 1 tab by mouth twice a [...]
--- OUTSIDE RECORDS SUMMARY | 2025-07-04 08:50 | XMS_ITS | Encounter Summary ---
Author Organization [email or web address] Address [address] [place] [address] Care Team Providers Care License Clerk Name Role Phone Rolanda Thakur MD Primary Care Provider +1- [phone] Reason for Visit * Reason Comments Med Refill Encounter Details Date Type Department Care Team ([facility] st Contact Info) Description 12/03/2024 Refill [facility] CHC MED & PEDS [address] [place], [place] [phone] Rolanda Thakur MD [address] [place] [address] Diabetic polyneuropathy associated with type 2 diabetes [...] your housing situation today? I have johnny egntile 07/06/[address] you li [...] documented as of this encounter Care Teams License Clerk Relationship Specialty Start Date End Date Rolanda Thakur MD [address] [place] [address] PCP - General Internal Medicine 09/19/22 documented as of this encounter
--- OUTSIDE RECORDS SUMMARY | 2025-07-04 08:50 | XMS_ITS | Encounter Summary ---
Author Organization [employer] Address [address] [place] [address] 7 [place] [address] Care Team Providers Care Caddy Packer Name Role Phone Rolanda Thakur MD Primary Care Provider +1- [phone] Encounter Details Date Type Department Care Team ([facility] st Contact Info) Description 03/06/2025 Orders Only [facility] CHC MED & PEDS [address] [place], [place] [phone] Rolanda Thakur MD [address] [place] [address] Type 2 diabetes mellitus without complication, without long-term current use of insulin ([facility]) (Primary Dx) Social History Tobacco Use Types [...] documented as of this encounter Care Teams Caddy Packer Relationship Specialty Start Date End Date Rolanda Thakur MD [address] [place] [address] PCP - General Internal Medicine 09/19/22 documented as of this encounter
--- OUTSIDE RECORDS SUMMARY | 2025-07-04 08:50 | XMS_ITS | Encounter Summary ---
Author Organization [employer] Address [address] [place] [address] Care Team Providers Care Granulizing Machine Operator Name Role Phone Rolanda Thakur MD Primary Care Provider +1- [phone] Encounter Details Date Type Department Care Team ([facility] st Contact Info) Description 05/16/2023 Orders Only [facility] CHC MED & PEDS [address] [place], [place] [phone] Rolanda Thakur MD [address] [place] [address] Bilateral leg paresthesia (Primary Dx); Anxiety; Diabetic [...] Vitamin B6 (10/10/2023 12:50 PM EST) Pathologist [facility] Vitamin B6 16.0 2.1 - 21.7 ng/mL [facility] Comment:Vitamin supplementat ion within 24 hours prior toblood draw may affect the accuracy of the results.This test was developed and its analytical performancecharacteristics have been determined by [facility] [place], [place]. It hasnot been cleared or approved by the U.S. Food and DrugAdministration. This assay has been validated pursuantto the CLIA regulations and is used for clinicalpurposes.THIS TEST WAS PERFORMED AT:[employer] [place] [address]VXXXZGI W. MASON,MD,PHD Blood Venous blood specimen / Unknown 10/10/2023 12:50 PM EST 10/10/2023 2:41 PM EST us Rolanda Thakur MD LAB BLOOD ORDERABLES Final Result [facility] [address] [place] [phone] * (ABNORMAL) Vitamin B12 (10/10/2023 12:50 PM EST) Pathologist [facility] Vitamin B12 1,388(H) 200 - 900 pg/mL [facility] Comment:NORMAL 200-900 PG/ML INDETERMINATE 160-199 PG/ML DEFICIENT < 160 PG/ML Blood Venous blood specimen / Unknown 10/10/2023 12:50 PM EST 10/10/2023 2:41 PM EST us Rolanda Thakur MD LAB BLOOD ORDERABLES Final Result Performing Organization Address City/[facility]/ZIP Co de Phone Number [facility] [address] [place] [address] [phone] * TSH W/Reflex to FT4 (10/10/2023 12:50 PM EST) Pathologist [facility] TSH reflex Free T4 0.35 0.32 - 4.0 uIU/mL [facility] Blood 10/10/2023 12:5 0 PM EST 10/10/2023 2:41 PM EST us Rolanda Thakur MD LAB BLOOD ORDERABLES Final Result Performing Organization Address City/[facility]/ZIP Co de Phone Number [facility] [address] [place] [address] [phone] * (ABNORMAL) CBC auto differential (10/10/2023 12:50 PM EST) White Blood Count 8.0 4.8 - 10.8 X10*3/uL [facility] Red Blood Count 4.19(L) 4.20 - 5.50 X10*6/uL [facility] Hemoglobin 12.3 12.0 - 16.0 g/dl [facility] Hematocrit 36.6(L) 37.0 - 47.0 % [facility] Mean Corpuscular Volume 87.4 80.0 - 98.0 fL [facility] Mean Corpuscular Hemoglobin 29.4 27.0 - 33.0 pg [facility] Mean Corpuscular HGB Conc 33.6 31.0 - 35.0 g/dl [facility] Red Cell Distribution Width 12.8 11.0 - 16.0 % [facility] Platelet Count 252 160 - 400 X10*3/uL [facility] Mean Platelet Volume 9.5 9.4 - 12.3 fL [facility] Neutrophils Percent Auto 55.5 45 - 73 % [facility] Imm Gran Pct Auto 0.4 0.0 - 0.4 % [facility] Lymphocytes Percent Auto 31.3 20 - 40 % [facility] Monocytes Percent Auto 6.0 2 - 11 % [facility] Eosinophils Percent Auto 5.9(H) 0 - 4 % [facility] Basophils Percent Auto 0.9 0 - 2 % [facility] NRBC Pct Auto 0.0 0.0 - 0.2 /100WBC [facility] Neutrophils Absolute Auto 4.5 2.0 - 8.3 x10*3/uL [facility] Imm Gran Abs Auto 0.03 0.00 - 0.03 X10*3/uL [facility] Lymphocytes Absolute Auto 2.5 1.2 - 4.9 X10*3/uL [facility] Monocytes Absolute Auto 0.5 0.1 - 1.2 X10*3/uL [facility] Eosinophils Absolute Auto 0.5(H) 0.0 - 0.4 X10*3/uL [facility] Basophils Absolute Auto 0.1 0.0 - 0.2 X10*3/uL [facility] NRBC Abs Auto 0.000 0.0 - 0.012 X10*3/uL [facility] Blood Venous blood specimen / Unknown 10/10/2023 12:50 PM EST 10/10/2023 2:41 PM EST us Rolanda Thakur MD LAB BLOOD ORDERABLES Final Result [facility] [address] [place] [address] [phone] documented in this encounter Visit Diagnoses Diagnosis Bilateral leg paresthesia- Primary Disturbance of skin sensation Anxiety Anxiety state, unspecified Diabetic polyneuropathy associated with type 2 diabetes mellitus (HCC) documented in this encounter Care Teams Granulizing Machine Operator Relationship Specialty Start Date End Date Rolanda Thakur MD [address] [place] [address] PCP - General Internal Medicine 09/19/22 documented as of this encounter
--- OUTSIDE RECORDS SUMMARY | 2025-07-04 08:50 | XMS_ITS | Encounter Summary ---
Author Organization [employer] Address [address] [place] [address] [address] [place] [address] Care Team Providers Care Drop Forge Operator Name Role Phone Rolanda Thakur MD Primary Care Provider +1- [phone] Reason for Visit * Reason Comments Med Refill Encounter Details Date Type Department Care Team ([facility] st Contact Info) Description 12/28/2022 Refill [facility] CHC MED & PEDS [address] [place] [address] Maren Hough MD [address] [place] [address] Type 2 diabetes mellitus without complication, without long-term current use of insulin ([facility]); Anxiety Social History Tobacco Use [...] unspecified documented in this encounter Care Teams Drop Forge Operator Relationship Specialty Start Date End Date Rolanda Thakur MD [address] [place] [address] PCP - General Internal Medicine 09/19/22 documented as of this encounter
--- OUTSIDE RECORDS SUMMARY | 2025-07-04 08:50 | XMS_ITS | Clinical Summary ---
Author Organization [facility] Address [address] [place] [address] Phone Care Team Providers Care Hotel Maid Name Role Phone Rolanda Thakur MD Primary Care Provider +1 -[phone] Allergies Active Allergy Reactions Criticality Noted Date [...] aware that this will likely be an [id number] cost and feels as though she can afford it. I will review results and determine need for future follow-up. In the meantime she would like to hold off on statin therapy which I think is totally reasonable. Orders: ECG 12 lead Pure hypercholesterolemia 07/08/2024 Assessment & Plan (07/08/2024 4:42 PM EST): See plan above. Encounters Date Type Department Care Team Description 06/27/2025 Telephone [facility] - [facility] [address] [facility] [address] [place] [phone] Kadi Palacios NP 06/08/2025 10:50 AM EDT - 06/08/2025 11:59 PM EDT Hospital Encounter [facility] Ultrasound [address] [place] [phone] Overactive bladder Discharge Disposition: Home or Self Care from [...] Care Team (Late st Contact Info) Description 08/20/2025 8:40 AM EST Office Visit [facility] - [facility] [address] [facility] [address] [place] [phone] Emeka Escoto NP [address] [place] [address] [place] [address] Health Maintenance Due Date Last Done Comments [...] Signed Date: 06/12/2025 17:05 ET Workstation ID: [id number] Transcribed By: Self Edit Transcribed Date: 06/12/2025 [...] Signed Date: 06/12/2025 17:05 ET Workstation ID: [id number] Transcribed By: Self Edit Transcribed Date: 06/12/2025 [...] year. Mammo Location: [facility], [address] [place] [address], [phone], . -------- FINAL REPORT -------- Dictated By: Peggy Reddy Dictated Date: 12/18/2024 07:51 ET Assigned Physician: Peggy Reddy Reviewed and Electronically Signed By: Peggy Reddy Signed Date: 12/18/2024 07:55 ET Workstation ID: [id number] Transcribed By: Self Edit Transcribed Date: 12/18/2024 [...] year. Mammo Location: [facility], [address] [place] [address], [phone], . -------- FINAL REPORT -------- Dictated By: Peggy Reddy Dictated Date: 12/18/2024 07:51 ET Assigned Physician: Peggy Reddy Reviewed and Electronically Signed By: Peggy Reddy Signed Date: 12/18/2024 07:55 ET Workstation ID: [id number] Transcribed By: Self Edit Transcribed Date: 12/18/2024 07:51 ET us Self Referral Sppl IMG BI PROCEDURES Final Resul t * MOHAMUD DEXA AXIAL SKELETON (04/12/2023 7:46 AM EDT) Anatomical Region Laterality Modality Mammography 04/11/2023 3:03 PM EDT Narrative 04/12/2023 7:46 AM EDT [facility] Diagnostic Imaging Department [address] [place] [address] Patient: ANGELY PINEDA YARA /Age/Sex: 1950 - 72 - F Unit#: [id number] Location/Status: SPDIMAM/REG CLI Mnemonic/Ordering Site: MAMDEXAAX/SPMAM Ordering Physician: MAREN HOUGH MD Mohamud Dexa Axial Skeleton - 04/11/23 - 4523 Report Status:Signed HISTORY: The patient is a [...] probability of hip fracture of 2.2%. Code 72381 Dictating Physician: GWENDOLYN BAHENA MD Electronically Signed by: GWENDOLYN BAHENA MD Dic Date/Time: 04/12/2345 Sign date/Time: 04/12/23745 Procedure Note Gwendolyn Bahena MD - 09/26/2023 [facility] Diagnostic Imaging Department [address] [place] [address] Patient: ADANGELYIRIS JohnsonO.B./Age/Sex: 1950 - 72 - F Unit#: [id number] Location/Status: [facility] Mnemonic/Ordering Site: [facility] Ordering Physician: MAREN HOUGH MD [facility] Dexa Axial Skeleton - 04/11/23 - 7404 Report Status:Signed HISTORY: The patient is a [...] density of the femurs bilaterally is 0.874 gm/nz9ypkly is 87% of that of young normals [...] probability of hip fracture of 2.2%. Code 96679 Dictating Physician: GWENDOLYN BAHENA MD Electronically Signed by: GWENDOLYN BAHENA MD Dic Date/Time: 04/12/2345 Sign date/Time: 04/12/23745 Maren Hough MD IMG BI PROCEDURES Final Result from Last 3 Months or Most Recently Relevant to Health Maintenance Insurance [employer] MEDICARE Care Teams Hotel Maid Relationship Specialty Start Date End Date Rolanda Thakur MD [address] [place] [address] [facility] - General 11/03/23
--- OUTSIDE RECORDS SUMMARY | 2025-07-04 08:50 | XMS_ITS | Encounter Summary ---
Author Organization [employer] Address [address] [place] [address] Care Team Providers Care Washcloth Folder Name Role Phone Rolanda Thakur MD Primary Care Provider +1- [phone] Reason for Visit * Reason Onset Date Comments Med Refill 04/17/2025 Encounter Details Date Type Department Care Team ([facility] st Contact Info) Description 04/17/2025 Telephone [facility] CHC MED & PEDS [address] [place] [address] Rolanda Thakur MD [address] [place] [address] Med Refill Social History Tobacco Use Types [...] 125 MCG tablet To be sent to: [id number] [place] [facility] [address] [facility] [place] [facility] [place] Pt has no more medication and needs [...] documented as of this encounter Care Teams Washcloth Folder Relationship Specialty Start Date End Date Rolanda Thakur MD [address] [place] [address] [place] [address] PCP - General Internal Medicine 09/19/22 documented as of this encounter
--- OUTSIDE RECORDS SUMMARY | 2025-07-04 08:50 | XMS_ITS | Encounter Summary ---
Author Organization [employer] Address [address] [address] Care Team Providers Care Jetting Machine Operator Name Role Phone Rolanda Thakur MD Primary Care Provider +1- [phone] Reason for Visit * Reason Onset Date Comments Medication Question 11/27/2024 Encounter Details Date Type Department Care Team ([facility] st Contact Info) Description 11/27/2024 Telephone [facility] MEDICINE [address] [place] [address] Rolanda Thakur MD [address] [place], [place] [phone] Medication Question Social History Tobacco Use Types [...] going through what is going on. Contact [phone] documented in this encounter Plan of Treatment Not on file documented as of this encounter Visit Diagnoses Not on filedocumented in this encounter Additional Health Concerns Assessment Noted Time PHQ-9 Depression Total Score: 2 05/13/20 24 9:24 AM EDT documented as of this encounter Care Teams Jetting Machine Operator Relationship Specialty Start Date End Date Rolanda Thakur MD [address] [place] [address] PCP - General Internal Medicine 09/19/22 documented as of this encounter
--- OUTSIDE RECORDS SUMMARY | 2025-07-04 08:50 | XMS_ITS | Encounter Summary ---
Author Organization [employer] Address [address] [address] Care Team Providers Care Food Products Sales Representative Name Role Phone Rolanda Thakur MD Primary Care Provider +1- [phone] Reason for Visit * Reason Onset Date Comments Call Back Request 10/31/2024 Encounter Details Date Type Department Care Team ([facility] st Contact Info) Description 10/31/2024 Telephone [facility] MEDICINE [address] [place] [address] Rolanda Thakur MD [address] [place], [place] [phone] Call Back Request Social History Tobacco Use [...] to DR. Castañeda. Please contact pt at [phone]. documented in this encounter Plan of Treatment Not on file documented as of this encounter Visit Diagnoses Not on filedocumented in this encounter Additional Health Concerns Assessment Noted Time PHQ-9 Depression Total Score: 2 05/13/20 24 9:24 AM EDT documented as of this encounter Care Teams Food Products Sales Representative Relationship Specialty Start Date End Date Rolanda Thakur MD [address] [place] [address] PCP - General Internal Medicine 09/19/22 documented as of this encounter
--- OUTSIDE RECORDS SUMMARY | 2025-07-04 08:50 | XMS_ITS | Encounter Summary ---
Author Organization [employer] Address [address] [place] [address] Care Team Providers Care Entomology Professor Name Role Phone Rolanda Thakur MD Primary Care Provider +1- [phone] Reason for Visit * Reason Onset Date Comments Med Refill 04/16/2025 Encounter Details Date Type Department Care Team ([facility] st Contact Info) Description 04/16/[address] [facility] CHC MED & PEDS [address] [place] [address] Rolanda Thakur MD [address] [place] [address] Acquired hypothyroidism Social History Tobacco Use Types [...] documented as of this encounter Care Teams Entomology Professor Relationship Specialty Start Date End Date Rolanda Thakur MD [address] [place] [address] PCP - General Internal Medicine 09/19/22 documented as of this encounter
--- OUTSIDE RECORDS SUMMARY | 2025-07-04 08:50 | XMS_ITS | Encounter Summary ---
Author Organization [employer] Address [address] [place] [address] 7 [place] [address] Care Team Providers Care Summer Babysitter Name Role Phone Rolanda Thakur MD Primary Care Provider +1- [phone] Encounter Details Date Type Department Care Team ([facility] st Contact Info) Description 05/01/2025 Orders Only [facility] CHC MED & PEDS [address] [place], [place] [phone] Rolanda Thakur MD [address] [place] [address] Recent urinary tract infection (Primary Dx) Social [...] EDT 05/10/2025 11:44 AM EDT Comment:CC Narrative [facility] - 05/11/2025 8:42 AM EDT Urine Culture No growth. Specimen Source: Urine clean catch us Rolanda Thakur MD LAB MICROBIOLOGY - GENERAL ORDERABLES Final Result [facility] [address] [place] [phone] documented in this encounter Visit Diagnoses Diagnosis Recent urinary tract infection- Primary documented in this encounter Additional Health Concerns Assessment Noted Time PHQ-9 Depression Total Score: 2 05/13/20 24 9:24 AM EDT documented as of this encounter Care Teams Summer Babysitter Relationship Specialty Start Date End Date Rolanda Thakur MD [address] [place] [address] PCP - General Internal Medicine 09/19/22 documented as of this encounter
--- OUTSIDE RECORDS SUMMARY | 2025-07-04 08:50 | XMS_ITS | Encounter Summary ---
Author Organization [employer] Address [address] [place] [address] Care Team Providers Care Saw Straightener Name Role Phone Rolanda Thakur MD Primary Care Provider +1- [phone] Encounter Details Date Type Department Care Team ([facility] st Contact Info) Description 05/01/2023 Orders Only [facility] CHC MED & PEDS [address] [place] [address] Rolanda Thkaur MD [address] [place] [address] Diabetic polyneuropathy associated with type 2 diabetes [...] polyneuropathy associated with type 2 diabetes mellitus ([facility]/HCC) TSH W/REFLEX TO FT4 Routine 05/08/2023 1 1:04 AM EDT Diabetic polyneuropathy associated with type 2 diabetes mellitus ([facility]/HCC) CBC WITH AUTO DIFFERENTIAL Routine 05/08/2023 11:04 AM EDT Diabetic polyneuropathy associated with type 2 diabetes mellitus ([facility]/HCC) HEMOGLOBIN A1C Routine 05/08/2023 11:04 AM EDT Diabetic polyneuropathy associated with type 2 diabetes mellitus ([facility]/HCC) HEPATIC FUNCTION PANEL Routine 05/08/2023 11:04 AM EDT Diabetic polyneuropathy associated with type 2 diabetes mellitus ([facility]/HCC) LIPID PANEL, STANDARD Routine 05/08/2023 11:04 AM EDT Diabetic polyneuropathy associated with type 2 diabetes mellitus ([facility]/HCC) BASIC METABOLIC PANEL Routine 05/08/2023 11:04 AM EDT Diabetic polyneuropathy associated with type 2 diabetes mellitus ([facility]/HCC) documented in this encounter Results * [...] patient sample. Estimated Average Glucose 128 mg/dL [facility] Comment:eAG = Estimated ave rage glucose which is %A1C expressed asaverage glucose, using the formula of the A9R-QaixaylTgvhimv Glucose study (ADAG), Diabetes Care, Vol.31,#8,Mar. 2007 Blood Venous blood specimen / Unknown 05/08/2023 11:04 AM EDT 05/08/2023 1:46 PM EDT Rolanda Thakur MD LAB BLOOD ORDERABLES Final Result Performing Organization Address City/[facility]/ZIP Co de Phone Number [facility] [address] [place] [phone] * Vitamin D, 25-Hydroxy, Total, Immunoassay (05/08/2023 11:04 AM EDT) Vitamin D 25-OH Total 84.6 >30 ng/mL [facility] Comment:Health Based Referen ce Values*< 20 ng/mL Ffeasoxvv96-00 ng/mL Insufficient> 30 ng/mL Sufficient*Arabella MCALLISTER. N [...] BLOOD ORDERABLES Final Result Performing Organization Address [facility] Co de Phone Number [facility] [address] [place] [phone] * Hepatic Function Panel (05/08/2023 11:04 AM EDT) Bilirubin, Total 0.5 0.0 - 1.0 mg/dL [facility] Bilirubin, Direct 0.2 0.0 - 0.5 mg/dL [facility] Aspartate Amino Transferase 22 5 - 31 U/L [facility] Alanine Aminotransferase 18 0 - 31 U/L [facility] Total Protein 7.1 6.5 - 8.0 g/dL [facility] Albumin Level 4.4 3.5 - 5.0 g/dL [facility] Alkaline Phosphatase 70 39 - 117 U/L [facility] Blood Venous blood specimen / Unknown 05/08/2023 11:04 AM EDT 05/08/2023 1:47 PM EDT us Rolanda Thakur MD LAB BLOOD ORDERABLES Final Result [facility] [address] [place] [phone] * (ABNORMAL) Lipid Panel, Standard (05/08/2023 11:04 AM EDT) Triglycerides 110 <150 mg/dL [facility] Comment:Desirable Triglyceri de: less than 150 mg/dLBorderline High Triglyceride 150-199 mg/dLHigh Triglyceride: 200-499 mg/dLVery High Triglyceride: greater than or equal to 5OO mg/dL Cholesterol 198 <200 mg/dL [facility] Comment:Desirable Cholestero l: less than 200 mg/dLBorderline High Cholesterol: 200-239 mg/dLHigh Cholesterol: greater than 239 mg/dL LDL Cholesterol Calculated 121(H) <100 mg/dL [facility] Comment:Desirable LDL: less than 100 mg/dLNear Optimal/Above Optimal LDL: 110- 129 mg/dLBorderline High LDL: 130-159 mg/dLHigh LDL: 160-189 mg/dLVery High LDL: greater than or equal to 190 mg/dL HDL Cholesterol 55 >40 mg/dL [facility] Comment:Desirable HDL: great er than 40 mg/dL Note: This HDL assay may give artificially low results in patients with liver disease. Blood Venous blood specimen / Unknown 05/08/2023 11:04 AM EDT 05/08/2023 1:47 PM EDT Rolanda Thakur MD LAB BLOOD ORDERABLES Final Result Performing Organization Address City[facility]/ZIP Co de Phone Number [facility] [address] [place] [phone] * TSH W/Reflex to FT4 (05/08/2023 11:04 AM EDT) TSH reflex Free T4 0.53 0.32 - 4.0 uIU/mL [facility] Blood 05/08/2023 11:0 4 AM EDT 05/08/2023 1:47 PM EDT us Rolanda Thakur MD LAB BLOOD ORDERABLES Final Result Performing Organization Address [facility] Co de Phone Number [facility] [address] [place] [phone] * (ABNORMAL) Basic Metabolic Panel (05/08/2023 11:04 AM EDT) Sodium 137 135 - 145 mmol/L [facility] Potassium 4.4 3.3 - 5.1 mmol/L [facility] Chloride 108 96 - 108 mmol/L [facility] Carbon Dioxide 24 22 - 29 mmol/L [facility] Anion Gap 9(L) 12 - 20 [facility] Urea Nitrogen (BUN) 14 9 - 16 mg/dL [facility] Creatinine, Serum 1.03 0.5 - 1.4 mg/dL [facility] Estimated Glomerular Filt Rate 53 [facility] Comment:NOTE: For -Am erican individuals, multiply the result by 1.210.Chronic Kidney Disease: Estimated GFR < 60 mL/min/1.04z7Ighruy Kidney Disease: Estimated GFR < 15 mL/min/1.73m2 Glucose 208(H) 60 - 115 mg/dL [facility] Calcium 10.1 8.4 - 10.2 mg/dL [facility] Blood Venous blood specimen / Unknown 05/08/2023 11:04 AM EDT 05/08/2023 1:47 PM EDT Rolanda Thakur MD LAB BLOOD ORDERABLES Final Result [facility] [address] [place] [phone] * (ABNORMAL) CBC auto differential (05/08/2023 11:04 AM EDT) White Blood Count 8.6 4.8 - 10.8 X10*3/uL [facility] Red Blood Count 4.27 4.20 - 5.50 X10*6/uL [facility] Hemoglobin 12.6 12.0 - 16.0 g/dl [facility] Hematocrit 37.9 37.0 - 47.0 % [facility] Mean Corpuscular Volume 88.8 80.0 - 98.0 fL [facility] Mean Corpuscular Hemoglobin 29.5 27.0 - 33.0 pg [facility] Mean Corpuscular HGB Conc 33.2 31.0 - 35.0 g/dl [facility] Red Cell Distribution Width 13.0 11.0 - 16.0 % [facility] Platelet Count 266 160 - 400 X10*3/uL [facility] Mean Platelet Volume 9.5 9.4 - 12.3 fL [facility] Neutrophils Percent Auto 50.3 45 - 73 % [facility] Imm Gran Pct Auto 0.3 0.0 - 0.4 % [facility] Lymphocytes Percent Auto 33.4 20 - 40 % [facility] Monocytes Percent Auto 7.0 2 - 11 % [facility] Eosinophils Percent Auto 7.8(H) 0 - 4 % [facility] Basophils Percent Auto 1.2 0 - 2 % [facility] NRBC Pct Auto 0.0 0.0 - 0.2 /100WBC [facility] Neutrophils Absolute Auto 4.3 2.0 - 8.3 x10*3/uL [facility] Imm Gran Abs Auto 0.03 0.00 - 0.03 X10*3/uL [facility] Lymphocytes Absolute Auto 2.9 1.2 - 4.9 X10*3/uL [facility] Monocytes Absolute Auto 0.6 0.1 - 1.2 X10*3/uL [facility] Eosinophils Absolute Auto 0.7(H) 0.0 - 0.4 X10*3/uL [facility] Basophils Absolute Auto 0.1 0.0 - 0.2 X10*3/uL [facility] NRBC Abs Auto 0.000 0.0 - 0.012 X10*3/uL [facility] Blood Venous blood specimen / Unknown 05/08/2023 11:04 AM EDT 05/08/2023 1:46 PM EDT Rolanda Thakur MD LAB BLOOD ORDERABLES Final Result [facility] [address] [place] [phone] documented in this encounter Visit Diagnoses Diagnosis Diabetic polyneuropathy associated with type 2 diabetes mellitus (HCC)- Primary documented in this encounter Care Teams Saw Straightener Relationship Specialty Start Date End Date Rolanda Thakur MD [address] [place] [phone] PCP - General Internal Medicine 09/19/22 documented as of this encounter
--- OUTSIDE RECORDS SUMMARY | 2025-07-04 08:50 | XMS_ITS | Encounter Summary ---
Author Organization [employer] Address [address] [place] [address] 7 [place] [address] Care Team Providers Care Social Services Specialist Name Role Phone Rolanda Thakur MD Primary Care Provider +1- [phone] Encounter Details Date Type Department Care Team ([facility] Contact Info) Description 07/03/2025 Orders Only [facility] CHC MED & PEDS [address] [place], [place] [phone] Rolanda Thakur MD 505 [place] [address] Urinary urgency (Primary Dx); Frequent UTI Social History Tobacco Use Types Packs/Day Years [...] r Schedule Culture, Urine, Routine Microbiology Routine Urinary urgency Frequent UTI Expected: 07/03/2025 (Approximate), Expires: 07/03/2026 documented as of this encounter Goals Goal Patient Goal Type Associated Problems Recent Progress Patient-Stated? Author Help patients manage their type 2 diabetes Care Plan Help patients manage their type 2 diabetes No Huong Heredia RN Weekly blood pressure task Care Plan Weekly blood pressure task No Huong Heredia RN Help patients manage their type 2 diabetes Care Plan Help patients manage their type 2 diabetes No Huong Heredia RN Patient has chronic kidney disease Care Plan Patient has chronic kidney disease No Huong Heredia RN Help patients manage their type 2 diabetes Care Plan Help patients manage their type 2 diabetes No Huong Heredia RN Patient has diabetic neuropathy Care Plan Patient has diabetic neuropathy No Huong Heredia RN Weekly blood pressure task Care Plan Weekly blood pressure task No Huong Heredia RN Weekly blood pressure task Care Plan Weekly blood pressure task No Huong Heredia RN Patient has chronic kidney disease Care Plan Patient has chronic kidney disease No Huong Heredia RN Patient has chronic kidney disease Care Plan Patient has chronic kidney disease No Huong Heredia RN Patient has diabetic neuropathy Care Plan Patient has diabetic neuropathy No Huong Heredia RN Patient has diabetic neuropathy Care Plan Patient has diabetic neuropathy No Huong Heredia RN Weekly blood pressure task Care Plan Weekly blood pressure task No Lexie Unger RN Weekly blood pressure task Care Plan Weekly blood pressure task No Lexie Unger RN Weekly blood pressure task Care Plan Weekly blood pressure task No Lexie Unger RN Patient has chronic kidney disease Care Plan Patient has chronic kidney disease No Lexie Unger RN Patient has chronic kidney disease Care Plan Patient has chronic kidney disease No Lexie Unger RN Patient has chronic kidney disease Care Plan Patient has chronic kidney disease No Lexie Unger RN Patient has diabetic neuropathy Care Plan Patient has diabetic neuropathy No Lexie Unger RN Patient has diabetic neuropathy Care Plan Patient has diabetic neuropathy No Lexie Unger RN Patient has diabetic neuropathy Care Plan Patient has diabetic neuropathy No Lexie Unger RN Weekly blood pressure task Care Plan Weekly blood pressure task No Lexie Unger RN Weekly blood pressure task Care Plan Weekly blood pressure task No Lexie Unger RN Weekly blood pressure task Care Plan Weekly blood pressure task No Lexie Unger RN Patient has chronic kidney disease Care Plan Patient has chronic kidney disease No Lexie Unger RN Patient has chronic kidney disease Care Plan Patient has chronic kidney disease No Lexie Unger RN Patient has chronic kidney disease Care Plan Patient has chronic kidney disease No Lexie Unger RN Patient has diabetic neuropathy Care Plan Patient has diabetic neuropathy No Lexie Unger RN Patient has diabetic neuropathy Care Plan Patient has diabetic neuropathy No Lexie Unger RN Patient has diabetic neuropathy Care Plan Patient has diabetic neuropathy No Lexie Unger RN Weekly blood pressure task Care Plan Weekly blood pressure task No Rolanda Thakur MD Weekly blood pressure task Care Plan Weekly blood pressure task No Rolanda Thakur MD Weekly blood pressure task Care Plan Weekly blood pressure task No Rolanda Thakur MD Patient has chronic kidney disease Care Plan Patient has chronic kidney disease No Rolanda Thakur MD Patient has chronic kidney disease Care Plan Patient has chronic kidney disease No Rolanda Thakur MD Patient has chronic kidney disease Care Plan Patient has chronic kidney disease No Rolanda Thakur MD Patient has diabetic neuropathy Care Plan Patient has diabetic neuropathy No Rolanda Thakur MD Patient has diabetic neuropathy Care Plan Patient has diabetic neuropathy No Rolanda Thakur MD Patient has diabetic neuropathy Care Plan Patient has diabetic neuropathy Rolanda Diaz MD documented as of this encounter Visit Diagnoses Diagnosis Urinary urgency- Primary Urgency of urination Frequent UTI Urinary tract infection, site not specified documented in this encounter Additional Health Concerns Active Problems Noted Date Diagnosed Date Help patients manage their type 2 diabetes 07/03 Weekly blood pressure task 07/03/2025 Help patients manage their type 2 diabetes 07/03 Patient has chronic kidney disease 07/03/2025 Help patients manage their type 2 diabetes 07/03 Patient has diabetic neuropathy 07/03/2025 Weekly blood pressure task 07/03/2025 Weekly blood pressure task 07/03/2025 Patient has chronic kidney disease 07/03/2025 Patient has chronic kidney disease 07/03/2025 Patient has diabetic neuropathy 07/03/2025 Patient has diabetic neuropathy 07/03/2025 Weekly blood pressure task 07/03/2025 Weekly blood pressure task 07/03/2025 Weekly blood pressure task 07/03/2025 Patient has chronic kidney disease 07/03/2025 Patient has chronic kidney disease 07/03/2025 Patient has chronic kidney disease 07/03/2025 Patient has diabetic neuropathy 07/03/2025 Patient has diabetic neuropathy 07/03/2025 Patient has diabetic neuropathy 07/03/2025 Weekly blood pressure task 07/03/2025 Weekly blood pressure task 07/03/2025 Weekly blood pressure task 07/03/2025 Patient has chronic kidney disease 07/03/2025 Patient has chronic kidney disease 07/03/2025 Patient has chronic kidney disease 07/03/2025 Patient has diabetic neuropathy 07/03/2025 Patient has diabetic neuropathy 07/03/2025 Patient has diabetic neuropathy 07/03/2025 Weekly blood pressure task 07/03/2025 Weekly blood pressure task 07/03/2025 Weekly blood pressure task 07/03/2025 Patient has chronic kidney disease 07/03/2025 Patient has chronic kidney disease 07/03/2025 Patient has chronic kidney disease 07/03/2025 Patient has diabetic neuropathy 07/03/2025 Patient has diabetic neuropathy 07/03/2025 Patient has diabetic neuropathy 07/03/2025 Assessment Noted Time PHQ-9 Depression Total Score: 2 05/13/20 24 9:24 AM EDT documented as of this encounter Care Teams Social Services Specialist Relationship Specialty Start Date End Date Rolanda Thakur MD [address] [place] [phone] PCP - General Internal Medicine 09/19/22 documented as of this encounter
--- OUTSIDE RECORDS SUMMARY | 2025-07-04 08:50 | XMS_ITS | Encounter Summary ---
Author Organization [employer] Address 75 [facility] 7 [place] [address] Care Team Providers Care Vocational Examiner Name Role Phone Rolanda Thakur MD Primary Care Provider +1 [phone] Encounter Details Date Type Department Care Team ([facility] Contact Info) Description 02/05/2025 Orders Only [facility] CHC MED & PEDS 505 [place], [place] [phone] Rolanda Thakur MD 505 [place] [address] Acquired hypothyroidism Social History Tobacco Use Types [...] documented as of this encounter Care Teams Vocational Examiner Relationship Specialty Start Date End Date Rolanda Thakur MD [address] [place] [phone] PCP - General Internal Medicine 09/19/22 documented as of this encounter
--- OUTSIDE RECORDS SUMMARY | 2025-07-04 08:50 | XMS_ITS | Encounter Summary ---
Author Organization [employer] Address [address] [address] Care Team Providers Care Pain Medicine Physician Name Role Phone Rolanda Thakur MD Primary Care Provider +1- [phone] Reason for Visit * Reason Onset Date Comments call back / orders 04/22/2025 Encounter Details Date Type Department Care Team ([facility] st Contact Info) Description 04/22/2025 Telephone [facility] MEDICINE [address] [place] [address] Rolanda Thakur MD 505 [place], [place] [phone] call back / orders Social History Tobacco [...] message send by pt Contact pt at [phone] documented in this encounter Plan of Treatment Not on file documented as of this encounter Visit Diagnoses Not on filedocumented in this encounter Additional Health Concerns Assessment Noted Time PHQ-9 Depression Total Score: 2 05/13/20 24 9:24 AM EDT documented as of this encounter Care Teams Pain Medicine Physician Relationship Specialty Start Date End Date Rolanda Thakur MD [address] [place] [phone] PCP - General Internal Medicine 09/19/22 documented as of this encounter
--- OUTSIDE RECORDS SUMMARY | 2025-07-04 08:50 | XMS_ITS | Encounter Summary ---
Author Organization [employer] Address [address] [address] Care Team Providers Care Edge Runner Name Role Phone Rolanda Thakur MD Primary Care Provider [phone]- [phone] Reason for Visit * Reason Onset Date Comments Referral 02/28/2025 Encounter Details Date Type Department Care Team ([facility] st Contact Info) Description 02/28/2025 Telephone [facility] MED[facility]INE 230 [place] [address] Rolanda Thakur MD 505 [place], [place] [phone] Referral Social History Tobacco Use Types Packs/Day [...] to change location of endocrinology referral: Address: [address] [place] [address] [place] [address] Facility Name: [facility] Type of Specialist: Endocrinology Provider: Dr. Aren Banerjee documented in this encounter Plan of Treatment Not on file documented as of this encounter Visit Diagnoses Not on filedocumented in this encounter Additional Health Concerns Assessment Noted Time PHQ-9 Depression Total Score: 2 05/13/20 24 9:24 AM EDT documented as of this encounter Care Teams Edge Runner Relationship Specialty Start Date End Date Rolanda Thakur MD [address] [place] [address] PCP - General Internal Medicine 09/19/22 documented as of this encounter
--- OUTSIDE RECORDS SUMMARY | 2025-07-04 08:50 | XMS_ITS | Encounter Summary ---
Author Organization [employer] Address [address] [place] [address] Care Team Providers Care Lime Filter Operator Name Role Phone Rolanda Thakur MD Primary Care Provider +1- [phone] Reason for Visit * Reason Onset Date Comments Med Refill 02/17/2025 Encounter Details Date Type Department Care Team ([facility] st Contact Info) Description 02/17/2025 Refill [facility] CHC MED & PEDS 505 [place] [address] Rolanda Thakur MD 505 [place] [address] Type 2 diabetes mellitus without complication, without [...] documented as of this encounter Care Teams Lime Filter Operator Relationship Specialty Start Date End Date Rolanda Thakur MD [address] [place] [address] PCP - General Internal Medicine 09/19/22 documented as of this encounter
--- OUTSIDE RECORDS SUMMARY | 2025-07-04 08:50 | XMS_ITS | Encounter Summary ---
Author Organization [employer] Address [address] [place] [address] Care Team Providers Care Bisque Kiln Placer Name Role Phone Rolanda Thakur MD Primary Care Provider +1- [phone] Reason for Referral * Consultation (Routine) - Authorized Specialty Diagnoses / Procedures Referred By Contac t Referred To Contact Endocrinology Diagnoses Type 2 diabetes mellitus without complication, without long-term current use of insulin (HCC) Benign essential hypertension Rolanda Thakur MD [address] [place] [address] Phone: tel: fax: [facility] [address] , [address] [place] [address] Phone: tel: fax: Referral ID Status Reason Start Date Expiration Date Visits Requested Visits Authorized [id number] Authorized Specialty Services Required 11/07/2024 11/07/2025 1 1 Encounter Details Date Type Department Care Team (Late st Contact Info) Description 11/07/2024 Orders Only [facility] MEDICINE 230 [place] [address] Rolanda Thakur MD [address] [place] [phone] Type 2 diabetes mellitus without complication, without [...] without long-term current use of insulin ([facility]/HCC) Benign essential hypertension Expected: 11/07/2024 (Approximate), [...] documented as of this encounter Care Teams Bisque Kiln Placer Relationship Specialty Start Date End Date Rolanda Thakur MD 505 [place] [address] PCP - General Internal Medicine 09/19/22 documented as of this encounter
--- OUTSIDE RECORDS SUMMARY | 2025-07-04 08:50 | XMS_ITS | Encounter Summary ---
Author Organization [employer] Address [address] [place] [address] 7 [place] [address] Care Team Providers Care Boat Cleaning Supervisor Name Role Phone Rolanda Thakur MD Primary Care Provider +1 [phone] Encounter Details Date Type Department Care Team ([facility] Contact Info) Description 04/18/2025 Orders Only [facility] CHC MED & PEDS [address] [place], [place] [phone] Migdalia Loza FNP 505 [place] [address] Acquired hypothyroidism (Primary Dx); UTI symptoms; Type 2 diabetes mellitus without complication, without long-term current use of insulin ([facility]) Social History Tobacco Use Types [...] (04/18/2025 8:39 AM EDT) Color Urine Yellow [facility] Appearance Urine Clear [facility] PH 6.0 5.0 - 9.0 [facility] Glucose Urine UA Negative Negative mg/dL [facility] Urine Blood Negative Negative [facility] Specific [place] - Urine 1.010 1.005 - 1.025 [facility] Urine Protein Negative Neg-Trace mg/dL [facility] Urine Ketones Negative Negative mg/dL [facility] Nitrite Urine Negative Negative [facility] Leukocyte Esterase Urine Small (1+)(A) Negative [facility] RBC Urine 0-2 0 - 2 /HPF [facility] Urine WBC 0-5 0 - 5 /HPF [facility] Urine Squamous Epithelial Cell 0-2 0 - 2 /HPF [facility] Urine Bacteria None Seen None Seen [facility] Hyaline Casts, Urine 0-2 0 - 2 /LPF [facility] Urine 04/18/2025 8:39 AM EDT 04/18/2025 2:25 PM EDT Narrative [facility] - 04/18/2025 4:11 PM EDT [id number], Clean Catch Migdalia Loza PLAYER DEVELOPMENT MANAGER LAB URINE ORDERABLES Final Res ult Performing Organization Address City/[facility]/ZIP Co de Phone Number [facility] [address] [place] [phone] * TSH W/Reflex to FT4 (04/18/2025 8:31 AM EDT) TSH reflex Free T4 1.59 0.32 - 4.0 uIU/mL [facility] Blood Venous blood specimen / Unknown 04/18/2025 8:31 AM EDT 04/18/2025 2:28 PM EDT Migdalia Loza PLAYER DEVELOPMENT MANAGER LAB BLOOD ORDERABLES Final Res ult Performing Organization Address City/[facility]/ZIP Co de Phone Number [facility] [address] [place] [phone] * Culture, Urine, Routine (04/18/2025 12:00 AM EDT) Urine Urine specimen obtained by clean catch procedure / Unknown 04/18/2025 04/18/2025 Comment:UACC Narrative [facility] - 04/20/2025 9:46 AM EDT Urine Culture Report Result Urine Culture > 100,000 cfu/ml Urine Culture Mixed bacterial hailey characteristic of Urine Culture urogenital contamination. Specimen Source: Urine clean catch us Migdalia Loza PLAYER DEVELOPMENT MANAGER LAB MICROBIOLOGY - GENERAL ORD ERABLES Final Result [facility] [address] [place] [phone] [phone] documented in this encounter Visit Diagnoses Diagnosis Acquired hypothyroidism- Primary Unspecified hypothyroidism UTI symptoms Type 2 diabetes mellitus without complication, without long-term current use of insulin (HCC) documented in this encounter Additional Health Concerns Assessment Noted Time PHQ-9 Depression Total Score: 2 05/13/20 24 9:24 AM EDT documented as of this encounter Care Teams Boat Cleaning Supervisor Relationship Specialty Start Date End Date Rolanda Thakur MD [address] [place] [phone] PCP - General Internal Medicine 09/19/22 documented as of this encounter
--- OUTSIDE RECORDS SUMMARY | 2025-07-04 08:50 | XMS_ITS | Encounter Summary ---
Author Organization [employer] Address [address] [address] Care Team Providers Care Boiler Repair Supervisor Name Role Phone Rolanda Thakur MD Primary Care Provider +[phone]- [phone] Reason for Visit * Reason Onset Date Comments Nurse Triage 04/17/2025 Encounter Details Date Type Department Care Team ([facility] st Contact Info) Description 04/17/2025 Telephone [facility] MEDICINE [address] [place] [address] Rolanda Thakur MD 505 [place], [place] [phone] Nurse Triage Social History Tobacco Use Types [...] to Angely Pineda to triage below at [phone]. Having urinary frequency and flankpain 10/28. Denies any pelvic pain, N/V, fever or pain. No dark color or odor. Pt states unable to come into office tomorrow due to working until 4:30pm. Pt wants PCP to place UA and cx order to be [facility] [place] [facility]. Pt advised will send request but also reminded that our [facility] is open on Monday 9a-1p and [...] as of this encounter Care Teams Boiler Repair Supervisor Relationship Specialty Start Date End Date Rolanda Thakur MD [address] [place] [phone] PCP - General Internal Medicine 09/19/22 documented as of this encounter
--- OUTSIDE RECORDS SUMMARY | 2025-07-04 08:50 | XMS_ITS | Encounter Summary ---
Author Organization [employer] Address 75 [facility] 7 [place] [address] Care Team Providers Care Sweet Potato Disintegrator Name Role Phone Rolanda Thakur MD Primary Care Provider +1- [phone] Encounter Details Date Type Department Care Team ([facility] Contact Info) Description 12/02/2024 Telephone [facility] CHC MED & PEDS 505 [place], [place] [phone] Rolanda Thakur MD 505 [place] [address] Social History Tobacco Use Types Packs/Day Years [...] documented as of this encounter Care Teams Sweet Potato Disintegrator Relationship Specialty Start Date End Date Rolanda Thakur MD [address] [place] [address] PCP - General Internal Medicine 09/19/22 documented as of this encounter
--- OUTSIDE RECORDS SUMMARY | 2025-07-04 08:50 | XMS_ITS | Encounter Summary ---
Author Organization [employer] Address 75 [facility] 7t [place] [address] Care Team Providers Care Construction Equipment Operator Name Role Phone Rolanda Thakur MD Primary Care Provider +1 [phone] Encounter Details Date Type Department Care Team ([facility] st Contact Info) Description 06/13/[address] [facility] CHC MED & PEDS [address] [place] [address] ProviderChema MD Social History Tobacco Use Types [...] documented as of this encounter Care Teams Construction Equipment Operator Relationship Specialty Start Date End Date Rolanda Thakur MD [address] [place] [address] PCP - General Internal Medicine 09/19/22 documented as of this encounter
--- OUTSIDE RECORDS SUMMARY | 2025-07-04 08:50 | XMS_ITS | Encounter Summary ---
Author Organization [employer] Address [address] [place] [address] Care Team Providers Care Seals Engraver Name Role Phone Rolanda Thakur MD Primary Care Provider +1- [phone] Reason for Visit * Reason Comments Med Refill Encounter Details Date Type Department Care Team ([facility] Contact Info) Description 07/03/2025 Refill [facility] CHC MED & PEDS 505 [place] [address] Rolanda Thakur MD 505 [place] [address] Social History Tobacco Use Types Packs/Day Years [...] on file documented as of this encounter Goals Goal [...] has diabetic neuropathy No Rolanda Thakur MD documented as of this encounter Visit Diagnoses Not on filedocumented in this encounter Additional Health Concerns Active [...] documented as of this encounter Care Teams Seals Engraver Relationship Specialty Start Date End Date Rolanda Thakur MD [address] [place] [phone] PCP - General Internal Medicine 09/19/22 documented as of this encounter
--- OUTSIDE RECORDS SUMMARY | 2025-07-04 08:50 | XMS_ITS | Encounter Summary ---
Author Organization [employer] Address [address] [address] Care Team Providers Care Cemetery Counselor Name Role Phone Rolanda Thakur MD Primary Care Provider +1- [phone] Reason for Visit * Reason Onset Date Comments Results 05/02/2025 Encounter Details Date Type Department Care Team ([facility] Contact Info) Description 05/02/2025 Telephone [facility] MEDICINE [address] [place] [address] Rolanda Thakur MD 505 [place], [place] [phone] Results Social History Tobacco Use Types Packs/Day [...] back regarding results as well as a FX Alignedt message stating she will be referred to a urologist. Pt expressed frustration due to the fact that she has not received a callfrom a nurse regarding results but is now being referred, she would like to further discuss before the day ends. Please contact pt at [phone]. documented in this encounter Plan of Treatment Not on file documented as of this encounter Visit Diagnoses Not on filedocumented in this encounter Additional Health Concerns Assessment Noted Time PHQ-9 Depression Total Score: 2 05/13/20 24 9:24 AM EDT documented as of this encounter Care Teams Cemetery Counselor Relationship Specialty Start Date End Date Rolanda Thakur MD [address] [place] [phone] PCP - General Internal Medicine 09/19/22 documented as of this encounter
--- OUTSIDE RECORDS SUMMARY | 2025-07-04 08:50 | XMS_ITS | Encounter Summary ---
Author Organization [employer] Address [address] [facility] [address] 7t [place] [address] Care Team Providers Care Linux System Engineer Name Role Phone Rolanda Thakur MD Primary Care Provider [phone] [phone] Encounter Details Date Type Department Care Team ([facility] Contact Info) Description 07/03/2025 Telephone [facility] 230 [place], [place] [phone] Lexie Unger RN 230 [place] [address] Social History Tobacco Use Types Packs/Day Years [...] Telephone Encounter - Rolanda Thakur MD - 07/03/2025 3:28 PM EST FYI. The order was printed and will be faxed. * Telephone Encounter - Lexie Unger RN - 07/03/2025 2:25 PM EST Called pt regarding Mychart message, spoke to pt. Pt states having symptoms of UTI and requesting Urine test. Pt states urinary burning, frequency, urgency, and strong odor. Pt denies fevers, unusualback pain,blood or other associated symptoms. Pt requesting to have lab order sent to the [facility] on [address]. Pt will do in the morning as she is still at school. Advised to drink a lotof fluids and call back as needed. Will task to PCP. documented in this encounter Plan of Treatment Not on file documented as of this encounter Goals Goal Patient Goal Type Associated Problems Recent Progress Patient-Stated? Author Help patients manage their type 2 diabetes Care Plan Help patients manage their type 2 diabetes No Huong Heredia RN Weekly blood pressure task Care Plan Weekly blood pressure task No Huong Heredia, MINOO Help patients manage their type 2 diabetes [...] documented as of this encounter Care Teams Linux System Engineer Relationship Specialty Start Date End Date Rolanda Thakur MD [address] [place] [phone] PCP - General Internal Medicine 09/19/22 documented as of this encounter
--- OUTSIDE RECORDS SUMMARY | 2025-07-04 08:50 | XMS_ITS | Encounter Summary ---
Author Organization [employer] Address [address] [place] [address] Care Team Providers Care Music Adapter Name Role Phone Rolanda Thakur MD Primary Care Provider +1 [phone] Reason for Visit * Reason Comments Med Refill Encounter Details Date Type Department Care Team ([facility] st Contact Info) Description 01/05/2023 Refill [facility] CHC MED & PEDS [address] [place] [address] Karoline Castañeda MD 505 [place] [address] Social History Tobacco Use Types Packs/Day Years [...] on filedocumented in this encounter Care Teams Music Adapter Relationship Specialty Start Date End Date Rolanda Thakur MD [address] [place] [address] PCP - General Internal Medicine 09/19/22 documented as of this encounter
--- OUTSIDE RECORDS SUMMARY | 2025-07-04 08:50 | XMS_ITS | Encounter Summary ---
Author Organization [employer] Address [address] [place] [address] Care Team Providers Care Balance Clerk Name Role Phone Rolanda Thakur MD Primary Care Provider +1- [phone] Reason for Referral * Consultation (Routine) - Canceled Specialty Diagnoses / Procedures Referred By Contac t Referred To Contact Pharmacy Diagnoses Type 2 diabetes mellitus without complication, without long-term current use of insulin (HCC) Rolanda Thakur MD [address] [place] [address] Phone: tel: fax: Referral ID Status Reason Start Date Expiration Date V isits Requested Visits Authorized [id number] Canceled Consult and Treat 04/14/2025 04/14/2026 6 6 Encounter Details Date Type Department Care Team (Late st Contact Info) Description 04/14/2025 Orders Only [facility] CHC MED & PEDS [address] [place] [address] Rolanda Thakur MD 505 [place] [address] Type 2 diabetes mellitus without complication, without [...] insulin ([facility]) Recent urinary tract infection Expected: 04/18/2025 [...] insulin ([facility]) Recent urinary tract infection documented in this encounter Results * (ABNORMAL) Urinalysis, Complete, with Reflex to Culture (04/30/2025 8:37 AM EDT) Color Urine Dark Yellow [facility] Appearance Urine Clear [facility] PH 6.5 5.0 - 9.0 [facility] Glucose Urine UA Negative Negative mg/dL [facility] Urine Blood Negative Negative [facility] Specific [place] - Urine 1.010 1.005 - 1.025 [facility] Urine Protein Negative Neg-Trace mg/dL [facility] Urine Ketones Negative Negative mg/dL [facility] Nitrite Urine Negative Negative [facility] Leukocyte Esterase Urine Small (1+)(A) Negative [facility] RBC Urine 0-2 0 - 2 /HPF [facility] Urine WBC 0-5 0 - 5 /HPF [facility] Urine Squamous Epithelial Cell 0-2 0 - 2 /HPF [facility] Urine Bacteria None Seen None Seen [facility] Hyaline Casts, Urine 0-2 0 - 2 /LPF [facility] Urine 04/30/2025 8:37 AM EDT 04/30/2025 1:12 PM EDT Narrative [facility] - 04/30/2025 2:16 PM EDT Urine, Clean Catch us Rolanda Thakur MD LAB URINE ORDERABLES Final Result [facility] [address] [place] [address] [phone] documented in this encounter Visit Diagnoses Diagnosis Type 2 diabetes mellitus without complication, without long-term current use of insulin ([facility])- Primary Recent urinary tract infection documented in this encounter Additional Health Concerns Assessment Noted Time PHQ-9 Depression Total Score: 2 05/13/20 24 9:24 AM EDT documented as of this encounter Care Teams Balance Clerk Relationship Specialty Start Date End Date Rolanda Thakur MD [address] [place] [address] PCP - General Internal Medicine 09/19/22 documented as of this encounter
--- OUTSIDE RECORDS SUMMARY | 2025-07-04 08:51 | XMS_ITS | Encounter Summary ---
Author Organization [employer] Address [address] [address] Care Team Providers Care Saddle Tree Stitcher Name Role Phone Rolanda Thakur MD Primary Care Provider [phone]- [phone] Reason for Visit * Reason Onset Date Comments Med Refill 12/26/2024 Encounter Details Date Type Department Care Team (Late st Contact Info) Description 12/26/2024 Refill [facility] [address] [place] [address] Rolanda Thakur MD 505 [place], [place] [phone] Neck pain on left side Social History [...] documented as of this encounter Care Teams Saddle Tree Stitcher Relationship Specialty Start Date End Date Rolanda Thakur MD [address] [place] [address] PCP - General Internal Medicine 09/19/22 documented as of this encounter
--- OUTSIDE RECORDS SUMMARY | 2025-07-04 08:51 | XMS_ITS | Encounter Summary ---
Author Organization [employer] Address [address] [place] [address] Care Team Providers Care Clinical Instructor Name Role Phone Rolanda Tahkur MD Primary Care Provider [phone]- [phone] Reason for Visit * Reason Comments Med Refill Encounter Details Date Type Department Care Team ([facility] st Contact Info) Description 02/05/2025 Refill [facility] [address] [place] [address] Rolanda Thakur MD [address] [place], [place] [phone] Acquired hypothyroidism Social History Tobacco Use Types [...] her Thyroid Medication. Pt states her diabetic digital sales manager changed the dosage to 1.12. documented in this encounter Plan of Treatment Not on file documented as of this encounter Visit Diagnoses Diagnosis Acquired hypothyroidism Unspecified hypothyroidism documented in this encounter Additional Health Concerns Assessment Noted Time PHQ-9 Depression Total Score: 2 05/13/20 24 9:24 AM EDT documented as of this encounter Care Teams Clinical Instructor Relationship Specialty Start Date End Date Rolanda Thakur MD [address] [place] [address] PCP - General Internal Medicine 09/19/22 documented as of this encounter
--- OUTSIDE RECORDS SUMMARY | 2025-07-04 08:51 | XMS_ITS | Clinical Summary ---
Author Organization [facility] [place] [facility] Address [address] [place], [place] [address] Care Team Providers Care Power Hammer Operator Name Role Phone Rahel Hough MD Primary Care Provider [phone] Allergies Active Allergy Reactions Criticality Noted Date [...] mg by mouth daily. 0 09/09/2020 Active [place]-3 Fatty Acids (FISH OIL) 1000 MG CAPS [...] age to complete this topic Care Teams Power Hammer Operator Relationship Specialty Start Date End Date Rahel Hough MD 230 [facility] [place] [address] PCP - General Internal Medicine 11/20/20
--- OUTSIDE RECORDS SUMMARY | 2025-07-04 08:51 | XMS_ITS | Clinical Summary ---
Author Organization [facility] Address [address] [place] [address] Care Team Providers Care Driver Courier Name Role Phone Maren Hough MD Primary Care Provider [phone] Social History Tobacco Use Types Packs/Day Years [...] patient's age to complete this topic Insurance [facility] Medicare [facility] Medicare Care Teams Driver Courier Relationship Specialty Start Date End Date Maren Hough MD [address] [place] [address] PCP - General Family Medicine 06/20/22
--- OUTSIDE RECORDS SUMMARY | 2025-07-04 08:51 | XMS_ITS | Encounter Summary ---
Author Organization [employer] Address [address] [place] [address] 7 [place] [address] Care Team Providers Care Sales Systems Engineer Name Role Phone Rolanda Thakur MD Primary Care Provider [phone] Encounter Details Date Type Department Care Team ([facility] st Contact Info) Description 06/21/2023 Abstract [facility] [address] [place] [address] Sherrie Caballero Social History Tobacco Use Types [...] filedocumented in this encounter Care Teams Sales Systems Engineer Relationship Specialty Start Date End Date Rolanda Thakur MD [address] [place] [address] PCP - General Internal Medicine 09/19/22 documented as of this encounter
--- OUTSIDE RECORDS SUMMARY | 2025-07-04 08:51 | XMS_ITS | Encounter Summary ---
Author Organization [employer] Address [address] [place] [address] Care Team Providers Care Telecom Engineer Name Role Phone Rolanda Thakur MD Primary Care Provider [phone] Reason for Visit * Reason Onset Date Comments Medication Question 12/08/2022 Encounter Details Date Type Department Care Team ([facility] st Contact Info) Description 12/08/2022 Telephone [facility] CHC MED & PEDS 505 [place], [place] [phone] Rolanda Thakur MD 505 [place] [address] Medication Question Social History Tobacco Use Types [...] on filedocumented in this encounter Care Teams Telecom Engineer Relationship Specialty Start Date End Date Rolanda Thakur MD [address] [place] [address] PCP - General Internal Medicine 09/19/22 documented as of this encounter
--- OUTSIDE RECORDS SUMMARY | 2025-07-04 08:51 | XMS_ITS | Encounter Summary ---
Author Organization [employer] Address [address] [place] [address] Care Team Providers Care Assembly Line Inspector Name Role Phone Rolanda Thakur MD Primary Care Provider [phone] Encounter Details Date Type Department Care Team ([facility] Contact Info) Description 05/22/2024 Orders Only [facility] CHC MED & PEDS [address] [place] [address] Rolanda Thakur MD 505 [place] [address] Social History Tobacco Use Types Packs/Day Years [...] as of this encounter Care Teams Assembly Line Inspector Relationship Specialty Start Date End Date Rolanda Thakur MD [address] [place] [address] PCP - General Internal Medicine 09/19/22 documented as of this encounter
--- OUTSIDE RECORDS SUMMARY | 2025-07-04 08:51 | XMS_ITS | Encounter Summary ---
Author Organization [employer] Address [address] [place] [address] Care Team Providers Care Accounting Manager Cpa Name Role Phone Rolanda Thakur MD Primary Care Provider [phone]- [phone] Encounter Details Date Type Department Care Team ([facility] st Contact Info) Description 01/22/2024 Orders Only [facility] CHC MED & PEDS 505 [place], [place] [phone] Rolanda Thakur MD 505 [place] [address] Benign essential hypertension Social History Tobacco Use [...] AM EDT Narrative 02/19/2024 12:38 PM EDT [address] [address] XRay Report Signed Patient: Angely Pineda MR#: [id number] : 1950 Acct:[id number] Age/Sex: 73 / F ADM Date: 02/19/24 Loc: [facility] Attending Dr: Migdalia PALMER Ordering Physician: Migdalia Loza Date of Service: 02/19/24 Procedure(s): XR toe RT min 2V Accession Number(s): [id number] cc: Migdalia Loza EXAMINATION: BILATERAL TOES CLINICAL [...] in OV> 02/19/24 1234 DD/ 1122 TD/TT: Funds Transfer Clerk: SS Procedure Note Donotuseinterpreter, Image - 02/19/[address] [address] XRay Report Signed Patient: Angely PinedaMR#: [id number] : 1950cct:[id number] Age/Sex: 73 / FADM Date: 02/19/24 Loc: JANAE Attending Dr: Migdalia Loza LICENSED THERAPIST Ordering Physician: Migdalia Loza Date of Service: 02/19/24 Procedure(s): XR toe RT min 2V Accession Number(s): [id number] cc: Migdalia Loza LICENSED THERAPIST EXAMINATION: BILATERAL TOES CLINICAL INFORMATION: A heavy [...] in OV> 02/19/24 1234 DD/ 1122 TD/TT: Funds Transfer Clerk: SS Migdalia Loza LICENSED THERAPIST IMG XR PROCEDURES Edited Resul t - Final documented in this encounter Visit Diagnoses Diagnosis Benign essential hypertension Essential hypertension, benign documented in this encounter Care Teams Accounting Manager Cpa Relationship Specialty Start Date End Date Rolanda Thakur MD [address] [place] [address] PCP - General Internal Medicine 09/19/22 documented as of this encounter
--- OUTSIDE RECORDS SUMMARY | 2025-07-04 08:51 | XMS_ITS | Encounter Summary ---
Author Organization [employer] Address [address] [facility] 7 [place] [address] Care Team Providers Care Senior Billing Consultant Name Role Phone Rolanda Thakur MD Primary Care Provider [phone] Encounter Details Date Type Department Care Team ([facility] Contact Info) Description 05/29/2025 Results Follow-Up [facility] MEDICINE 230 [place] [address] Kelsie Genao NP [address] [place] [address] Urinalysis Complete Social History Tobacco Use Types [...] as of this encounter Care Teams Senior Billing Consultant Relationship Specialty Start Date End Date Rolanda Thakur MD [address] [place] [address] PCP - General Internal Medicine 09/19/22 documented as of this encounter
--- OUTSIDE RECORDS SUMMARY | 2025-07-04 08:51 | XMS_ITS | Encounter Summary ---
Author Organization [employer] Address [address] [place] [address] [place] [address] Care Team Providers Care Associate Trainer Name Role Phone Rolanda Thakur MD Primary Care Provider [phone] Encounter Details Date Type Department Care Team ([facility] st Contact Info) Description 04/08/2024 Orders Only [facility] [address] [place], [place] [phone] Rolanda Thakur MD 505 [place] [address] UTI symptoms (Primary Dx) Social History Tobacco [...] Primary documented in this encounter Care Teams Associate Trainer Relationship Specialty Start Date End Date Rolanda Thakur MD 505 [place] [address] PCP - General Internal Medicine 09/19/22 documented as of this encounter
--- OUTSIDE RECORDS SUMMARY | 2025-07-04 08:51 | XMS_ITS | Encounter Summary ---
Author Organization [employer] Address [address] [place] [address] Care Team Providers Care Log Manager Name Role Phone Rolanda Thakur MD Primary Care Provider [phone]- [phone] Reason for Visit * Reason Onset Date Comments Med Refill 04/11/2025 Encounter Details Date Type Department Care Team ([facility] st Contact Info) Description 04/11/2025 Refill [facility] CHC MED & PEDS 505 [place] [address] Rolanda Thakur MD 505 [place] [address] Type 2 diabetes mellitus without complication, without long-term current use of insulin ([facility]) Social History Tobacco Use [...] documented as of this encounter Care Teams Log Manager Relationship Specialty Start Date End Date Rolanda Thakur MD 505 [place] [address] PCP - General Internal Medicine 09/19/22 documented as of this encounter
--- OUTSIDE RECORDS SUMMARY | 2025-07-04 08:51 | XMS_ITS | Encounter Summary ---
Author Organization [employer] Address [address] [place] [address] 7 [place] [address] Care Team Providers Care Marble Helper Name Role Phone Rolanda hTakur MD Primary Care Provider [phone] Encounter Details Date Type Department Care Team ([facility] st Contact Info) Description 11/20/2024 Orders Only [facility] CHC MED & PEDS 505 [place], [place] [phone] Rolanda Thakur MD 505 [place] [address] Type 2 diabetes mellitus without complication, without long-term current use of insulin ([facility]) (Primary Dx); UTI symptoms Social [...] complication, without long-term current use of insulin ([facility]) UTI symptoms CBC WITH AUTO DIFFERENTIAL Routine 11/23/2024 9:00 AM EDT Type 2 diabetes mellitus without complication, without long-term current use of insulin ([facility]) BASIC METABOLIC PANEL Routine 11/23/2024 9:00 AM EDT Type 2 diabetes mellitus without complication, without long-term current use of insulin ([facility]) documented in this encounter Results * Culture, Urine, Routine (11/23/2024 9:05 AM EDT) Urine Urine specimen obtained by clean catch procedure / Unknown 11/23/2024 9:05 AM EDT 11/23/2024 11:26 AM EDT Comment:[facility] - 11/24/2024 11:22 AM EDT Urine Culture Report Result Urine Culture 10,000 to 50,000 cfu/ml Urine Culture Mixed bacterial hailey characteristic of Urine Culture urogenital contamination. Specimen Source: Urine clean catch us Rolanda Thakur MD LAB MICROBIOLOGY - GENERAL ORDERABLES Final Result [facility] [address] [place] [address] [phone] * (ABNORMAL) CBC auto differential (11/23/2024 9:00 AM EDT) White Blood Count 8.5 4.8 - 10.8 X10*3/uL [facility] Red Blood Count 4.27 4.20 - 5.50 X10*6/uL [facility] Hemoglobin 12.8 12.0 - 16.0 g/dl [facility] Hematocrit 37.0 37.0 - 47.0 % [facility] Mean Corpuscular Volume 86.7 80.0 - 98.0 fL [facility] Mean Corpuscular Hemoglobin 30.0 27.0 - 33.0 pg [facility] Mean Corpuscular HGB Conc 34.6 31.0 - 35.0 g/dl [facility] Red Cell Distribution Width 13.1 11.0 - 16.0 % [facility] Platelet Count 269 160 - 400 X10*3/uL [facility] Mean Platelet Volume 9.1(L) 9.4 - 12.3 fL [facility] Neutrophils Percent Auto 64.4 45 - 73 % [facility] Imm Gran Pct Auto 0.4 0.0 - 0.4 % [facility] Lymphocytes Percent Auto 23.8 20 - 40 % [facility] Monocytes Percent Auto 5.9 2 - 11 % [facility] Eosinophils Percent Auto 4.7(H) 0 - 4 % [facility] Basophils Percent Auto 0.8 0 - 2 % [facility] NRBC Pct Auto 0.0 0.0 - 0.2 /100WBC [facility] Neutrophils Absolute Auto 5.4 2.0 - 8.3 x10*3/uL [facility] Imm Gran Abs Auto 0.03 0.00 - 0.03 X10*3/uL [facility] Lymphocytes Absolute Auto 2.0 1.2 - 4.9 X10*3/uL [facility] Monocytes Absolute Auto 0.5 0.1 - 1.2 X10*3/uL [facility] Eosinophils Absolute Auto 0.4 0.0 - 0.4 X10*3/uL [facility] Basophils Absolute Auto 0.1 0.0 - 0.2 X10*3/uL [facility] NRBC Abs Auto 0.000 0.0 - 0.012 X10*3/uL [facility] Blood Venous blood specimen / Unknown 11/23/2024 9:00 AM EDT 11/23/2024 11:37 AM EDT us Rolanda Thakur MD LAB BLOOD ORDERABLES Final Result [facility] [address] [place] [phone] * (ABNORMAL) Basic Metabolic Panel (11/23/2024 9:00 AM EDT) Sodium 135 135 - 145 mmol/L [facility] Potassium 4.4 3.3 - 5.1 mmol/L [facility] Chloride 103 96 - 108 mmol/L [facility] Carbon Dioxide 24 22 - 29 mmol/L [facility] Anion Gap 12 12 - 20 [facility] Urea Nitrogen (BUN) 21(H) 9 - 16 mg/dL [facility] Creatinine, Serum 0.89 0.5 - 1.4 mg/dL [facility] Estimated Glomerular Filt Rate >60 [facility] Comment:Chronic Kidney Disea se: Estimated GFR < 60 mL/min/[id number] Kidney Disease: Estimated GFR < 15 mL/min/1.73m2 Glucose 161(H) 60 - 115 mg/dL [facility] Calcium 10.2 8.4 - 10.2 mg/dL [facility] Blood Venous blood specimen / Unknown 11/23/2024 9:00 AM EDT 11/23/2024 11:37 AM EDT Rolanda Thakur MD LAB BLOOD ORDERABLES Final Result [facility] [address] [place] [address] [phone] documented in this encounter Visit Diagnoses Diagnosis Type 2 diabetes mellitus without complication, without long-term current use of insulin (HCC)- Primary UTI symptoms documented in this encounter Additional Health Concerns Assessment Noted Time PHQ-9 Depression Total Score: 2 05/13/20 24 9:24 AM EDT documented as of this encounter Care Teams Marble Helper Relationship Specialty Start Date End Date Rolanda Thakur MD [address] [place] [phone] PCP - General Internal Medicine 09/19/22 documented as of this encounter
--- OUTSIDE RECORDS SUMMARY | 2025-07-04 08:51 | XMS_ITS | Encounter Summary ---
Author Organization [employer] Address [address] [place] [address] 7 [place] [address] Care Team Providers Care Die Designer Apprentice Name Role Phone Rolanda Thakur MD Primary Care Provider +1- [phone] Reason for Visit * Reason Onset Date Comments Med Refill 12/26/2024 Encounter Details Date Type Department Care Team ([facility] st Contact Info) Description 12/26/2024 Refill [facility] CHC MED & PEDS [address] [place] [address] Maren Hough MD 505 [place] [address] Social History Tobacco Use Types Packs/Day Years [...] documented as of this encounter Care Teams Die Designer Apprentice Relationship Specialty Start Date End Date Rolanda Thakur MD [address] [place] [address] PCP - General Internal Medicine 09/19/22 documented as of this encounter
--- OUTSIDE RECORDS SUMMARY | 2025-07-04 08:51 | XMS_ITS | Encounter Summary ---
Author Organization [employer] Address [address] [address] Care Team Providers Care Social Sciences Research Scientist Name Role Phone Rolanda Thakur MD Primary Care Provider [phone]- [phone] Reason for Visit * Reason Onset Date Comments Call Back Request 11/27/2024 Encounter Details Date Type Department Care Team ([facility] st Contact Info) Description 11/27/2024 Telephone [facility] [address] [place] [address] Rolanda Thakur MD 505 [place], [place] [phone] Call Back Request Social History Tobacco Use [...] as of this encounter Care Teams Social Sciences Research Scientist Relationship Specialty Start Date End Date Rolanda Thakur MD [address] [place] [address] PCP - General Internal Medicine 09/19/22 documented as of this encounter
--- OUTSIDE RECORDS SUMMARY | 2025-07-04 08:51 | XMS_ITS | Encounter Summary ---
Author Organization [employer] Address [address] [place] [address] [place] [address] Care Team Providers Care Viticulturist Name Role Phone Rolanda Thakur MD Primary Care Provider +1- [phone] Encounter Details Date Type Department Care Team ([facility] Contact Info) Description 04/30/2025 Results Follow-Up [facility] CHC MED & PEDS [address] [place] [address] Rolanda Thakur MD 505 [place] [address] XR Hand 3+ Views Right, XR Hand [...] documented as of this encounter Care Teams Viticulturist Relationship Specialty Start Date End Date Rolanda Thakur MD [address] [place] [address] PCP - General Internal Medicine 09/19/22 documented as of this encounter
--- OUTSIDE RECORDS SUMMARY | 2025-07-04 08:51 | XMS_ITS | Encounter Summary ---
Author Organization [employer] Address [address] [place] [address] Care Team Providers Care Fashion Illustrator Name Role Phone Rolanda Thakur MD Primary Care Provider +1- [phone] Reason for Visit * Reason Onset Date Comments Created In Error 04/29/2024 Encounter Details Date Type Department Care Team (Late st Contact Info) Description 04/29/2024 Telephone [facility] MEDICINE [address] [place] [phone] Rolanda Thakur MD 505 [place], [place] [phone] Created In Error Social History Tobacco Use [...] on filedocumented in this encounter Care Teams Fashion Illustrator Relationship Specialty Start Date End Date Rolanda Thakur MD [address] [place] [address] PCP - General Internal Medicine 09/19/22 documented as of this encounter
--- OUTSIDE RECORDS SUMMARY | 2025-07-04 08:51 | XMS_ITS | Encounter Summary ---
Author Organization [employer] Address [address] [address] Care Team Providers Care Addictions Counselor Assistant Name Role Phone Rolanda Thakur MD Primary Care Provider +1- [phone] Reason for Visit * Reason Onset Date Comments Nurse Triage 04/04/2024 Encounter Details Date Type Department Care Team ([facility] st Contact Info) Description 04/04/2024 Telephone [facility] MEDICINE [address] [place] [address] Rolanda Thakur MD [address] [place], [place] [phone] Nurse Triage Social History Tobacco Use Types [...] pt. She states that she went to [facility] ED for Anxiety [...] got treated horribly by the staff at [facility] and she will [...] care coordinators so that they can get [facility] ED notes from 03/30/24 Ed visit into pt. Chart and any labs, EKG's etc.. into pt. Chart for visit on 04/05/24 at 315pm. Protocol Used: Anxiety and Panic Attack (Adult) Protocol-Based Disposition: Go to ED/[facility] Now (or to Office with PCP Approval)- [...] on filedocumented in this encounter Care Teams Addictions Counselor Assistant Relationship Specialty Start Date End Date Rolanda Thakur MD [address] [place] [address] PCP - General Internal Medicine 09/19/22 documented as of this encounter
--- OUTSIDE RECORDS SUMMARY | 2025-07-04 08:51 | XMS_ITS | Encounter Summary ---
Author Organization [employer] Address [address] [address] Care Team Providers Care Assurance Manager Insurance Name Role Phone Rolanda Thakur MD Primary Care Provider +1- [phone] Reason for Visit * Reason Onset Date Comments Medication Question 04/04/2024 Encounter Details Date Type Department Care Team ([facility] st Contact Info) Description 04/04/2024 Telephone [facility] MEDICINE [address] [place] [address] Rolanda Thakur MD [address] [place], [place] [phone] Medication Question Social History Tobacco Use Types [...] on filedocumented in this encounter Care Teams Assurance Manager Insurance Relationship Specialty Start Date End Date Rolanda Thakur MD [address] [place] [address] PCP - General Internal Medicine 09/19/22 documented as of this encounter
--- OUTSIDE RECORDS SUMMARY | 2025-07-04 08:51 | XMS_ITS | Encounter Summary ---
Author Organization [employer] Address [address] [place] [address] Care Team Providers Care Metal Finish Inspector Name Role Phone Rolanda Thakur MD Primary Care Provider +1- [phone] Reason for Visit * Reason Onset Date Comments Med Refill 05/08/2025 Encounter Details Date Type Department Care Team ([facility] st Contact Info) Description 05/08/2025 Refill [facility] CHC MED & PEDS [address] [place] [address] Rolanda Thakur MD 505 [place] [address] Recent urinary tract infection Social History Tobacco [...] as of this encounter Care Teams Metal Finish Inspector Relationship Specialty Start Date End Date Rolanda Thakur MD [address] [place] [address] PCP - General Internal Medicine 09/19/22 documented as of this encounter
--- OUTSIDE RECORDS SUMMARY | 2025-07-04 08:51 | XMS_ITS | Encounter Summary ---
Author Organization [employer] Address [address] [place] [address] Care Team Providers Care Varnish Inspector Name Role Phone Rolanda Thakur MD Primary Care Provider +1- [phone] Reason for Visit * Reason Onset Date Comments Referral 05/18/2023 Encounter Details Date Type Department Care Team ([facility] st Contact Info) Description 05/18/2023 Telephone [facility] CHC MED & PEDS 505 [place] [address] Rolanda Thakur MD 505 [place] [address] Referral Social History Tobacco Use Types Packs/Day [...] used to see Dr. Chad Dempsey from [facility] butnow the office doesn't take [...] advise. Also sent you her response from [employer]. Thanks. * Telephone Encounter - Annabella Peña [...] to Specialty: (EMG) Dr nolasco Date&Time: N/a Concentrator Operator: n/a Please call pt to clarify documented in this encounter Plan of Treatment Not on file documented as of this encounter Visit Diagnoses Not on filedocumented in this encounter Care Teams Varnish Inspector Relationship Specialty Start Date End Date Rolanda Thakur MD [address] [place] [address] PCP - General Internal Medicine 09/19/22 documented as of this encounter
--- OUTSIDE RECORDS SUMMARY | 2025-07-04 08:51 | XMS_ITS | Encounter Summary ---
Author Organization [employer] Address [address] [place] [address] Care Team Providers Care Washhouse Hand Name Role Phone Rolanda Thakur MD Primary Care Provider +1 [phone] Reason for Referral * Imaging (Routine) - Closed Specialty Diagnoses / Procedures Referred By Contac t Referred To Contact Radiology Diagnoses Hyponatremia Decreased GFR Procedures US RENAL BI Rolanda Thakur MD [address] [place] [address] Phone: tel: fax: [address] Phone: tel: fax: Referral ID Status Reason Start Date Expiration Date Visits Re quested Visits Authorized [id number] Closed 07/18/2024 07/18/2025 1 0 Encounter Details Date Type Department Care Team (Late st Contact Info) Description 07/09/2024 Orders Only [facility] CHC MED & PEDS [address] [place], [place] [phone] Rolanda Thakur MD [address] [place], [place] [phone] Hyponatremia (Primary Dx); Decreased GFR Social History [...] EDT) Sodium 133(L) 135 - 145 mmol/L [facility] Potassium 4.9 3.3 - 5.1 mmol/L [facility] Chloride 104 96 - 108 mmol/L [facility] Carbon Dioxide 23 22 - 29 mmol/L [facility] Anion Gap 11(L) 12 - 20 [facility] Urea Nitrogen (BUN) 15 9 - 16 mg/dL [facility] Creatinine, Serum 0.82 0.5 - 1.4 mg/dL [facility] Estimated Glomerular Filt Rate >60 [facility] Comment:Chronic Kidney Disea se: Estimated GFR < 60 mL/min/1.41n7Iikble Kidney Disease: Estimated GFR < 15 mL/min/1.73m2 Glucose 177(H) 60 - 115 mg/dL [facility] Calcium 9.5 8.4 - 10.2 mg/dL [facility] Blood Venous blood specimen / Unknown 02/05/2025 12:22 PM EDT 02/05/2025 1:20 PM EDT Rolanda Thakur MD LAB BLOOD ORDERABLES Final Result [facility] [address] [place] [address] [phone] documented in this encounter Visit Diagnoses Diagnosis Hyponatremia- Primary Hyposmolality and/or hyponatremia Decreased GFR documented in this encounter Additional Health Concerns Assessment Noted Time PHQ-9 Depression Total Score: 2 05/13/20 24 9:24 AM EDT documented as of this encounter Care Teams Washhouse Hand Relationship Specialty Start Date End Date Rolanda Thakur MD [address] [place] [address] PCP - General Internal Medicine 09/19/22 documented as of this encounter
--- OUTSIDE RECORDS SUMMARY | 2025-07-04 08:51 | XMS_ITS | Encounter Summary ---
Author Organization [employer] Address [address] [place] [address] [address] [place] [address] Care Team Providers Care Hammer Setter Name Role Phone Rolanda Thakur MD Primary Care Provider +1- [phone] Encounter Details Date Type Department Care Team ([facility] Contact Info) Description 05/26/2025 Orders Only [facility] CHC MED & PEDS [address] [place] [address] Rolanda Thakur MD [address] [place] [address] Frequent UTI (Primary Dx); Vaginal dryness; Acquired [...] documented as of this encounter Care Teams Hammer Setter Relationship Specialty Start Date End Date Rolanda Thakur MD [address] [place] [address] PCP - General Internal Medicine 09/19/22 documented as of this encounter
--- OUTSIDE RECORDS SUMMARY | 2025-07-04 08:51 | XMS_ITS | Encounter Summary ---
Author Organization [employer] Address [address] [place] [address] Care Team Providers Care Junior Software Developer Name Role Phone Rolanda Thakur MD Primary Care Provider +1- [phone] Encounter Details Date Type Department Care Team ([facility] st Contact Info) Description 05/02/2024 Orders Only [facility] CHC MED & PEDS [address] [place], [place] [phone] Rolanda Thakur MD 505 [place] [address] Anxiety (Primary Dx) Social History Tobacco Use [...] unspecified documented in this encounter Care Teams Junior Software Developer Relationship Specialty Start Date End Date Rolanda Thakur MD [address] [place] [address] PCP - General Internal Medicine 09/19/22 documented as of this encounter
--- OUTSIDE RECORDS SUMMARY | 2025-07-04 08:51 | XMS_ITS | Encounter Summary ---
Author Organization [employer] Address [address] [place] [address] Care Team Providers Care Sewer Line Repairer Name Role Phone Rolanda Thakur MD Primary Care Provider +1- [phone] Reason for Visit * Reason Onset Date Comments Med Refill 12/26/2024 Encounter Details Date Type Department Care Team ([facility] st Contact Info) Description 12/26/2024 Refill [facility] CHC MED & PEDS [address] [place] [address] Rolanda Thakur MD 505 [place] [address] Acquired hypothyroidism Social History Tobacco Use Types [...] documented as of this encounter Care Teams Sewer Line Repairer Relationship Specialty Start Date End Date Rolanda Thakur MD [address] [place] [address] PCP - General Internal Medicine 09/19/22 documented as of this encounter
--- OUTSIDE RECORDS SUMMARY | 2025-07-04 08:51 | XMS_ITS | Encounter Summary ---
Author Organization [employer] Address [address] [place] [address] Care Team Providers Care Personal Property Appraiser Name Role Phone Rolanda Thakur MD Primary Care Provider +1- [phone] Reason for Referral * Consultation (Routine) - Closed Specialty Diagnoses / Procedures Referred By Freddy t Referred To Contact Chiropractic Medicine Diagnoses Chronic left-sided low back pain with left-sided sciatica Rolanda Thakur MD [address] [place] [address] Phone: tel: fax: [facility] fax: Referral ID Status Reason Start Date Expiration Date V isits Requested Visits Authorized [id number] Closed Specialty Services Required 08/08/2024 08/08/2025 1 1 * Consultation (Routine) - Closed Specialty Diagnoses / Procedures Referred By Freddy t Referred To Contact Physical Therapy Diagnoses Chronic left-sided low back pain with left-sided sciatica Rolanda Thakur MD [address] [place] [address] Phone: tel: fax: [facility] Physical Therapy [address] [place] [address] Phone: tel: fax: Referral ID Status Reason Start Date Expiration Date V isits Requested Visits Authorized [id number] Closed Specialty Services Required 08/05/2024 08/05/2025 1 1 * Consultation (Routine) - Closed Specialty Diagnoses / Procedures Referred By Freddy meadows Referred To Contact Chiropractic Medicine Diagnoses Chronic left-sided low back pain with left-sided sciatica Rolanda Thakur MD [address] [place] [address] Phone: tel: fax: Referral ID Status Reason Start Date Expiration Date V isits Requested Visits Authorized [id number] Closed Specialty Services Required 08/02/2024 08/02/2025 1 1 Encounter Details Date Type Department Care Team ([facility] st Contact Info) Description 08/02/2024 Orders Only [facility] CHC MED & PEDS [address] [place] [address] Rolanda Thakur MD [address] [place] [address] Chronic left-sided low back pain with left-sided [...] 09/02/2024 11:24 AM EST [facility] Adult Primary Care [address] [address] XRay Report Signed Patient: Angely Pineda MR#: [id number] : 1950 Acct:[id number] Age/Sex: 74 / F ADM Date: 08/12/24 Loc: HO.HMGCX Attending Dr: Wyatt Golden MD Ordering Physician: Wyatt Golden MD Date of Service: 08/12/24 Procedure(s): XR cervical spine 5V Accession Number(s): [id number] cc: Rolanda Thakur MD; Wyatt Golden MD [...] 1121 DD/ 0950 TD/TT: 08/12/24 1000 Senior Grants Officer: Procedure Note Donotuseinterpreter, Image - 09/02/2024 [facility] Adult Primary Care [address] [address] XRay Report Signed Patient: Erma Pineda#: [id number] : 1950cct:[id number] Age/Sex: 74 / FADM Date: 08/12/24 Loc: HO.HMGCX Attending Dr: Wyatt Golden MD Ordering Physician: Wyatt Golden MD Date of Service: 08/12/24 Procedure(s): XR cervical spine 5V Accession Number(s): [id number] cc: Rolanda Thakur MD; Wyatt Golden MD [...] MD 09/02/2024 11:21 AM [facility] Dictated By: Yuridia Becerra MD Signed By: <Electronically signed by Yuridia Becerra MD in OV> 09/02/24 1121 DD/ 0950 TD/TT: 08/12/24 1000 Senior Grants Officer: Wyatt Mcdonald MD IMG XR PROCEDURES Iftikhar mecca Result - Final documented in this encounter Visit Diagnoses Diagnosis Chronic left-sided low back pain with left-sided sciatica- Primary documented in this encounter Additional Health Concerns Assessment Noted Time PHQ-9 Depression Total Score: 2 05/13/20 24 9:24 AM EDT documented as of this encounter Care Teams Personal Property Appraiser Relationship Specialty Start Date End Date Rolanda Thakur MD [address] [place] [address] PCP - General Internal Medicine 09/19/22 documented as of this encounter
--- OUTSIDE RECORDS SUMMARY | 2025-07-04 08:51 | XMS_ITS | Encounter Summary ---
Author Organization [employer] Address [address] [place] [address] Care Team Providers Care Consulting Sales Manager Name Role Phone Rolanda Thakur MD Primary Care Provider +1- [phone] Reason for Visit * Reason Comments Med Refill Encounter Details Date Type Department Care Team ([facility] st Contact Info) Description 05/20/2024 Refill [facility] CHC MED & PEDS [address] [place] [address] Rolanda Thakur MD [address] [place] [address] Diabetic polyneuropathy associated with type 2 diabetes mellitus ([facility]) Social History Tobacco Use Types [...] as of this encounter Care Teams Consulting Sales Manager Relationship Specialty Start Date End Date Rolanda Thakur MD [address] [place] [address] PCP - General Internal Medicine 09/19/22 documented as of this encounter
--- OUTSIDE RECORDS SUMMARY | 2025-07-04 08:51 | XMS_ITS | Encounter Summary ---
Author Organization [employer] Address [address] [place] [address] Care Team Providers Care Customer Quality Specialist Name Role Phone Rolanda Thakur MD Primary Care Provider +1- [phone] Reason for Visit * Reason Onset Date Comments Med Refill 03/31/2025 Encounter Details Date Type Department Care Team ([facility] st Contact Info) Description 03/31/2025 Refill [facility] CHC MED & PEDS [address] [place] [address] Rolanda Thakur MD [address] [place] [address] Panic attack; Anxiety Social History Tobacco Use [...] as of this encounter Care Teams Customer Quality Specialist Relationship Specialty Start Date End Date Rolanda Thakur MD [address] [place] [address] PCP - General Internal Medicine 09/19/22 documented as of this encounter
--- OUTSIDE RECORDS SUMMARY | 2025-07-04 08:51 | XMS_ITS | Encounter Summary ---
Author Organization [employer] Address [address] [place] [address] Care Team Providers Care Incinerator Attendant Name Role Phone Rolanda Thakur MD Primary Care Provider +1- [phone] Reason for Visit * Reason Onset Date Comments EKG 06/18/2024 Encounter Details Date Type Department Care Team ([facility] Contact Info) Description 06/18/2024 Telephone [facility] CHC MED & PEDS [address] [place] [address] Rolanda Thakur MD 505 [place] [address] EKG Social History Tobacco Use Types Packs/Day [...] appointment to get the notes for our manufacture specialist to process the referral. * Telephone [...] should seek a neurology referral. She states sweet dough mixer advised her to get a referral due to procedure done for cataracts might have struck a nerve and that might be were the headaches are coming from. * Telephone Encounter - Annabella Peña - 06/18/2024 4:03 PM EDT Tc from pt requesting status on order for EKG. Contact Paulette at [phone] documented in this encounter Plan of Treatment Not on file documented as of this encounter Visit Diagnoses Not on filedocumented in this encounter Additional Health Concerns Assessment Noted Time PHQ-9 Depression Total Score: 2 05/13/20 24 9:24 AM EDT documented as of this encounter Care Teams Incinerator Attendant Relationship Specialty Start Date End Date Rolanda Thakur MD [address] [place] [address] PCP - General Internal Medicine 09/19/22 documented as of this encounter
--- OUTSIDE RECORDS SUMMARY | 2025-07-04 08:51 | XMS_ITS | Encounter Summary ---
Author Organization [employer] Address [address] [address] Care Team Providers Care Director Of Cardiac Rehabilitation Name Role Phone Rolanda Thakur MD Primary Care Provider +1- [phone] Reason for Visit * Reason Onset Date Comments Med Refill 12/26/2024 Encounter Details Date Type Department Care Team (Late st Contact Info) Description 12/26/2024 Refill [facility] MEDICINE [address] [place] [address] Rolanda Thakur MD [address] [place], [place] [phone] Social History Tobacco Use Types Packs/Day Years [...] of this encounter Care Teams Director Of Cardiac Rehabilitation Relationship Specialty Start Date End Date Rolanda Thakur MD [address] [place] [address] PCP - General Internal Medicine 09/19/22 documented as of this encounter
--- OUTSIDE RECORDS SUMMARY | 2025-07-04 08:51 | XMS_ITS | Encounter Summary ---
Author Organization [employer] Address [address] [address] Care Team Providers Care Manager Spanish Name Role Phone Rolanda Thakur MD Primary Care Provider +1- [phone] Reason for Visit * Reason Onset Date Comments Med Refill 04/04/2024 Encounter Details Date Type Department Care Team (Late st Contact Info) Description 04/04/2024 Telephone [facility] MEDICINE [address] [place] [address] Rolanda Thakur MD [address] [place], [place] [phone] Med Refill Social History Tobacco Use Types [...] 5 mg tablets To be sent to: [facility] documented in this encounter Plan of Treatment Not on file documented as of this encounter Visit Diagnoses Diagnosis Anxiety- Primary Anxiety state, unspecified documented in this encounter Care Teams Manager Spanish Relationship Specialty Start Date End Date Rolanda Thakur MD [address] [place] [address] PCP - General Internal Medicine 09/19/22 documented as of this encounter
--- OUTSIDE RECORDS SUMMARY | 2025-07-04 08:51 | XMS_ITS | Encounter Summary ---
Author Organization [employer] Address [address] [place] [address] Care Team Providers Care Clinical Informatics Spec Name Role Phone Rolanda Thakur MD Primary Care Provider +1- [phone] Reason for Visit * Reason Onset Date Comments Med Refill 12/26/2024 Encounter Details Date Type Department Care Team ([facility] st Contact Info) Description 12/26/2024 Refill [facility] CHC MED & PEDS [address] [place] [address] Rolanda Thakur MD [address] [place] [address] Anxiety; Benign essential hypertension Social History Tobacco [...] as of this encounter Care Teams Clinical Informatics Spec Relationship Specialty Start Date End Date Rolanda Thakur MD [address] [place] [address] PCP - General Internal Medicine 09/19/22 documented as of this encounter
--- OUTSIDE RECORDS SUMMARY | 2025-07-04 08:51 | XMS_ITS | Encounter Summary ---
Author Organization [employer] Address [address] [address] Care Team Providers Care Electronics Tech Name Role Phone Rolanda Thakur MD Primary Care Provider +1- [phone] Reason for Visit * Reason Onset Date Comments Durable Medical Equipment 04/29/2024 Encounter Details Date Type Department Care Team (Late st Contact Info) Description 04/29/2024 Telephone [facility] MEDICINE [address] [place] [address] Rolanda Thakur MD [address] [place], [place] [phone] Durable Medical Equipment Social History Tobacco Use [...] - 04/29/2024 3:34 PM EDT Tc from [facility] pharmacy stating pt is requesting blood pressure monitor but they don't have a script. If any questions you can contact [facility] at [phone]. documented in this encounter Plan of Treatment Not on file documented as of this encounter Visit Diagnoses Not on filedocumented in this encounter Care Teams Electronics Tech Relationship Specialty Start Date End Date Rolanda Thakur MD [address] [place] [address] PCP - General Internal Medicine 09/19/22 documented as of this encounter
--- OUTSIDE RECORDS SUMMARY | 2025-07-04 08:51 | XMS_ITS | Encounter Summary ---
Author Organization [employer] Address [address] [place] [address] Care Team Providers Care Ladies Locker Room Attendant Name Role Phone Rolanda Thakur MD Primary Care Provider +1- [phone] Reason for Visit * Reason Onset Date Comments Medication Question 12/09/2022 Encounter Details Date Type Department Care Team ([facility] st Contact Info) Description 12/09/2022 Telephone [facility] CHC MED & PEDS [address] [place], [place] [phone] Rolanda Thakur MD [address] [place] [address] Medication Question Social History Tobacco Use Types [...] script (levothyroxine (Synthroid) 150 MCG tablet) it [id number] MCG and New script is it 50 mcg so pharmacy is requesting some clarification Please contact Pharmacy at [phone] documented in this encounter Plan of Treatment Not on file documented as of this encounter Visit Diagnoses Not on filedocumented in this encounter Care Teams Ladies Locker Room Attendant Relationship Specialty Start Date End Date Rolanda Thakur MD [address] [place] [address] PCP - General Internal Medicine 09/19/22 documented as of this encounter
--- OUTSIDE RECORDS SUMMARY | 2025-07-04 08:51 | XMS_ITS | Encounter Summary ---
Author Organization [employer] Address [address] [place] [address] Care Team Providers Care Shift Production Associate Name Role Phone Rolanda Thakur MD Primary Care Provider +1- [phone] Reason for Visit * Reason Onset Date Comments Med Refill 03/20/2025 Encounter Details Date Type Department Care Team ([facility] st Contact Info) Description 03/20/2025 Refill [facility] CHC MED & PEDS [address] [place] [address] Rolanda Thakur MD [address] [place] [address] Social History Tobacco Use Types Packs/Day Years [...] documented as of this encounter Care Teams Shift Production Associate Relationship Specialty Start Date End Date Rolanda Thakur MD [address] [place] [address] PCP - General Internal Medicine 09/19/22 documented as of this encounter
--- OUTSIDE RECORDS SUMMARY | 2025-07-04 08:51 | XMS_ITS | Encounter Summary ---
Author Organization [employer] Address [address] [place] [address] Care Team Providers Care Occupational Therapy Aide Name Role Phone Rolanda Thakur MD Primary Care Provider +1- [phone] Reason for Visit * Reason Onset Date Comments CT scan order 07/03/2024 Encounter Details Date Type Department Care Team ([facility] st Contact Info) Description 07/03/2024 Telephone [facility] CHC MED & PEDS [address] [place] [address] Rolanda Thakur MD [address] [place] [address] CT scan order Social History Tobacco Use [...] incorrect location. Pt prefers being seen in [facility]. Please call pt to clarify. documented in this encounter Plan of Treatment Not on file documented as of this encounter Visit Diagnoses Not on filedocumented in this encounter Additional Health Concerns Assessment Noted Time PHQ-9 Depression Total Score: 2 05/13/20 24 9:24 AM EDT documented as of this encounter Care Teams Occupational Therapy Aide Relationship Specialty Start Date End Date Rolanda Thakur MD [address] [place] [id number] PCP - General Internal Medicine 09/19/22 documented as of this encounter
--- OUTSIDE RECORDS SUMMARY | 2025-07-04 08:51 | XMS_ITS | Encounter Summary ---
Author Organization [employer] Address [address] [place] [address] [place] [address] Care Team Providers Care Cement Rubber Name Role Phone Rolanda Thakur MD Primary Care Provider [phone]- [phone] Encounter Details Date Type Department Care Team ([facility] Contact Info) Description 05/12/2025 Results Follow-Up [facility] CHC MED & PEDS [address] [place] [address] Rolanda Thakur MD [address] [place] [address] Culture, Urine, Routine Social History Tobacco Use [...] documented as of this encounter Care Teams Cement Rubber Relationship Specialty Start Date End Date Rolanda Thakur MD [address] [place] [address] PCP - General Internal Medicine 09/19/22 documented as of this encounter
--- OUTSIDE RECORDS SUMMARY | 2025-07-04 08:51 | XMS_ITS | Encounter Summary ---
Author Organization [employer] Address [address] [place] [address] Care Team Providers Care Dietetics Director Name Role Phone Rolanda Thakur MD Primary Care Provider [phone]- [phone] Reason for Visit * Reason Onset Date Comments Nurse Triage 06/04/2025 Encounter Details Date Type Department Care Team ([facility] st Contact Info) Description 06/04/2025 Telephone [facility] CHC MED & PEDS [address] [place] [address] Rolanda Thakur MD [address] [place] [address] Nurse Triage Social History Tobacco Use Types [...] caller accepted this outcome. Contact pt at [phone] documented in this encounter Plan of Treatment Not on file documented as of this encounter Visit Diagnoses Not on filedocumented in this encounter Additional Health Concerns Assessment Noted Time PHQ-9 Depression Total Score: 2 05/13/20 24 9:24 AM EDT documented as of this encounter Care Teams Dietetics Director Relationship Specialty Start Date End Date Rolanda Thakur MD [address] [place] [address] PCP - General Internal Medicine 09/19/22 documented as of this encounter
--- OUTSIDE RECORDS SUMMARY | 2025-07-04 08:51 | XMS_ITS | Encounter Summary ---
Author Organization [employer] Address [address] [address] Care Team Providers Care Driftman Name Role Phone Rolanda Thakur MD Primary Care Provider [phone]- [phone] Reason for Visit * Reason Onset Date Comments Nurse Triage 08/05/2024 Encounter Details Date Type Department Care Team ([facility] st Contact Info) Description 08/05/2024 Telephone [facility] MEDICINE [address] [place] [address] Rolanda Thakur MD 505 [place], [place] [phone] Nurse Triage Social History Tobacco Use Types [...] 1145am. Pt is advised to come to [facility] today which is open till 8pm and also open 830am -800pm tomorrow. Pt agrees with this disposition. Pt will try to come to [facility] todaybut, if unable will come tomorrow. Pt [...] documented as of this encounter Care Teams Driftman Relationship Specialty Start Date End Date Rolanda Thakur MD [address] [place] [address] PCP - General Internal Medicine 09/19/22 documented as of this encounter
--- OUTSIDE RECORDS SUMMARY | 2025-07-04 08:51 | XMS_ITS | Encounter Summary ---
Author Organization [employer] Address [address] [place] [address] Care Team Providers Care Sheet Heater Helper Name Role Phone Rolanda Thakur MD Primary Care Provider [phone]- [phone] Reason for Visit * Reason Onset Date Comments Referral 06/13/2024 Encounter Details Date Type Department Care Team ([facility] st Contact Info) Description 06/13/2024 Telephone [facility] MEDICINE [address] [place] [address] Rolanda Thakur MD 505 [place], [place] [phone] Referral Social History Tobacco Use Types Packs/Day [...] as of this encounter Care Teams Sheet Heater Helper Relationship Specialty Start Date End Date Rolanda Thakur MD [address] [place] [address] PCP - General Internal Medicine 09/19/22 documented as of this encounter
--- OUTSIDE RECORDS SUMMARY | 2025-07-04 08:51 | XMS_ITS | Encounter Summary ---
Author Organization [employer] Address [address] [facility] 7[address] [place] [address] Care Team Providers Care Cnc Field Service Engineer Name Role Phone Rolanda Thakur MD Primary Care Provider [phone] Encounter Details Date Type Department Care Team ([facility] st Contact Info) Description 12/18/2024 Orders Only [facility] CHC MED & PEDS [address] [place] [address] ProviderChema MD Social History Tobacco Use Types [...] documented as of this encounter Care Teams Cnc Field Service Engineer Relationship Specialty Start Date End Date Rolanda Thakur MD [address] [place] [address] PCP - General Internal Medicine 09/19/22 documented as of this encounter
--- OUTSIDE RECORDS SUMMARY | 2025-07-04 08:52 | XMS_ITS | Encounter Summary ---
Author Organization [employer] Address [address] [place] [address] [facility] [place] [address] Care Team Providers Care Cuffing Machine Operator Name Role Phone Rolanda Thakur MD Primary Care Provider [phone] Reason for Referral * Consultation (Routine) - Closed Specialty Diagnoses / Procedures Referred By Freddy meadows Referred To Contact Neurology Diagnoses Other polyneuropathy Rolanda Thakur MD [address] [place] [address] Phone: tel: fax: [facility]rology [address] [place], [place] Phone: tel: fax: Referral ID Status Reason Start Date Expiration Date V isits Requested Visits Authorized [id number] Closed Specialty Services Required 11/22/2023 11/21/2024 1 1 * Consultation (Routine) - Closed Specialty Diagnoses / Procedures Referred By Freddy meadows Referred To Contact Physiatry Diagnoses Other polyneuropathy Rolanda Thakur MD [address] [place] [address] Phone: tel: fax: Referral ID Status Reason Start Date Expiration Date V isits Requested Visits Authorized [id number] Closed Specialty Services Required 11/17/2023 11/16/2024 1 1 Encounter Details Date Type Department Care Team ([facility] st Contact Info) Description 11/16/2023 Orders Only [facility] CHC MED & PEDS [address] [place] [address] Rolanda Thakur MD [address] [place] [address] Other polyneuropathy (Primary Dx) Social History Tobacco [...] Primary documented in this encounter Care Teams Cuffing Machine Operator Relationship Specialty Start Date End Date Rolanda Thakur MD [address] [place] [address] PCP - General Internal Medicine 09/19/22 documented as of this encounter
--- OUTSIDE RECORDS SUMMARY | 2025-07-04 08:52 | XMS_ITS | Encounter Summary ---
Author Organization [employer] Address [address] [place] [address] Care Team Providers Care Media Reconciliation Specialist Name Role Phone Rolanda Thakur MD Primary Care Provider [phone]- [phone] Encounter Details Date Type Department Care Team [...] filedocumented in this encounter Care Teams Media Reconciliation Specialist Relationship Specialty Start Date End Date Rolanda Thakur MD 505 [facility] [place] [address] PCP - General Internal Medicine 09/19/22 documented as of this encounter
--- OUTSIDE RECORDS SUMMARY | 2025-07-04 08:52 | XMS_ITS | Encounter Summary ---
Author Organization [employer] Address [address] [place] [address] Care Team Providers Care Manager Gas Name Role Phone Rolanda Thakur MD Primary Care Provider [phone]- [phone] Reason for Visit * Reason Onset Date Comments Med Refill 10/27/2023 Encounter Details Date Type Department Care Team (Late st Contact Info) Description 10/27/2023 Telephone [facility] MEDICINE [address] [place] [address] Rolanda Thakur MD [address] [place], [place] [phone] Med Refill Social History Tobacco Use Types [...] on medication 125 Please contact pt @ [phone] No meds. * Telephone Encounter - Haylie Cantor RN - 10/27/2023 3:44 PM EST Patient reporting alternating days of synthroid 125 mcg and synthroid 137 mcg. Requesting new script for synthroid 125 mcg. Please review and advise, thanks. Tc from pt requesting levothyroxine (Synthroid) 125 MCG tablet, report writer do not see med in chart but pt stated has been taking this medication for 10 years, pt switch 137 and 125 every day, report writer attempted to contact pharmacy for clarifications but [facility] [address] open at 9:00AM. * Telephone Encounter - Jenny Neff - 10/27/2023 8:31 AM EST Tc from pt requesting levothyroxine (Synthroid) 125 MCG tablet, report writer do not see med in chart but pt stated has been taking this medication for 10 years, pt switch 137 and 125 every day, report writer attempted to contact pharmacy for clarifications but [facility] [address] open at 9:00AM. documented in this encounter Plan of Treatment Not on file documented as of this encounter Visit Diagnoses Not on filedocumented in this encounter Care Teams Manager Gas Relationship Specialty Start Date End Date Rolanda Thakur MD [address] [place] [address] PCP - General Internal Medicine 09/19/22 documented as of this encounter
--- OUTSIDE RECORDS SUMMARY | 2025-07-04 08:52 | XMS_ITS | Encounter Summary ---
Author Organization [employer] Address [address] [place] [address] Care Team Providers Care Stone Layout Marker Name Role Phone Rolanda Thakur MD Primary Care Provider [phone] Reason for Referral * Consultation (Routine) - Closed Specialty Diagnoses / Procedures Referred By Contac t Referred To Contact Endocrinology Diagnoses Type 2 diabetes mellitus without complication, without long-term current use of insulin (HCC) Rolanda Thakur MD [address] [place] [address] Phone: tel: [facility]: [facility] [address] [place] [phone] Phone: tel: fax: Referral ID Status Reason Start Date Expiration Date V isits Requested Visits Authorized [id number] Closed Specialty Services Required 08/26/2024 08/26/2025 1 1 Encounter Details Date Type Department Care Team (Late st Contact Info) Description 08/26/2024 Orders Only [facility] CHC MED & PEDS [address] [place] [phone] Rolanda Thakur MD [address] [place] [address] Type 2 diabetes mellitus without complication, without [...] long-term current use of insulin ([facility]/HCC) Expected: 08/26/2024 (Approximate), Expires: 08/26/2025 documented as of this encounter Visit Diagnoses Diagnosis Type 2 diabetes mellitus without complication, without long-term current use of insulin (HCC)- Primary documented in this encounter Additional Health Concerns Assessment Noted Time PHQ-9 Depression Total Score: 2 05/13/20 24 9:24 AM EDT documented as of this encounter Care Teams Stone Layout Marker Relationship Specialty Start Date End Date Rolanda Thakur MD [address] [place] [address] PCP - General Internal Medicine 09/19/22 documented as of this encounter
--- OUTSIDE RECORDS SUMMARY | 2025-07-04 08:52 | XMS_ITS | Encounter Summary ---
Author Organization [employer] Address [address] [place] [address] Care Team Providers Care Information Security Director Name Role Phone Rolanda Thakur MD Primary Care Provider [phone]- [phone] Reason for Referral * Consultation (Routine) - Canceled Specialty Diagnoses / Procedures Referred By Contac t Referred To Contact Endocrinology Diagnoses Type 2 diabetes mellitus without complication, without long-term current use of insulin (HCC) Rolanda Thakur MD [address] [place] [address] Phone: tel: fax: Referral ID Status Reason Start Date Expiration Date Visits Requested Visits Authorized [id number] Canceled Specialty Services Required 10/08/2024 10/08/2025 1 1 Encounter Details Date Type Department Care Team (Late st Contact Info) Description 10/08/2024 Orders Only [facility] CHC MED & PEDS [address] [place] [address] Rolanda Thakur MD [address] [place] [address] Type 2 diabetes mellitus without complication, without [...] of insulin ([facility]) Expected: 10/08/2024 (Approximate), Expires: 10/08/2025 documented as of this encounter Procedures Procedure Name Priority Date/Time Associated Diagnosis Comments HEMOGLOBIN A1C Routine 02/05/2025 12:22 PM EDT Type 2 diabetes mellitus without complication, without long-term current use of insulin ([facility]) documented in this encounter Results * (ABNORMAL) Hemoglobin A1c (02/05/2025 12:22 PM EDT) Hemoglobin A1c 7.4(H) <6.0 % [facility] Comment:Hemoglobin A1C Refer ence Range Adults: 4.8 - 6.0 % Non diabetic: < 6.0 % Goal: < 7.0 %Additional Action Suggested: > 8.0 %Note: Hemoglobin A1c results are invalid for patients with abnormal amounts of HbF. Blood transfusions may impact the HbA1c concentration in the patient sample. Estimated Average Glucose 166 mg/dL [facility] Comment:eAG = Estimated ave rage glucose which is %A1C expressed asaverage glucose, using the formula of the S6M-[id number] Glucose study (ADAG), Diabetes Care, Vol.31,#8,Mar. 2007 Blood Venous blood specimen / Unknown 02/05/2025 12:22 PM EDT 02/05/2025 1:20 PM EDT Rolanda Thakur MD LAB BLOOD ORDERABLES Final Result [facility] [address] [place] [address] [phone] documented in this encounter Visit Diagnoses Diagnosis Type 2 diabetes mellitus without complication, without long-term current use of insulin (HCC)- Primary documented in this encounter Additional Health Concerns Assessment Noted Time PHQ-9 Depression Total Score: 2 05/13/20 24 9:24 AM EDT documented as of this encounter Care Teams Information Security Director Relationship Specialty Start Date End Date Rolanda Thakur MD [address] [place] [address] PCP - General Internal Medicine 09/19/22 documented as of this encounter
--- OUTSIDE RECORDS SUMMARY | 2025-07-04 08:52 | XMS_ITS | Encounter Summary ---
Author Organization [employer] Address [address] [address] Care Team Providers Care Cement Production Plant Operator Name Role Phone Rolanda Thakur MD Primary Care Provider +1- [phone] Reason for Visit * Reason Onset Date Comments FYI 10/11/2024 Encounter Details Date Type Department Care Team ([facility] st Contact Info) Description 10/11/2024 Telephone [facility] MEDICINE [address] [place] [address] Rolanda Thakur MD [address] [place], [place] [phone] FYI Social History Tobacco Use Types Packs/Day [...] as of this encounter Care Teams Cement Production Plant Operator Relationship Specialty Start Date End Date Rolanda Tahkur MD [address] [place] [address] PCP - General Internal Medicine 09/19/22 documented as of this encounter
--- OUTSIDE RECORDS SUMMARY | 2025-07-04 08:52 | XMS_ITS | Encounter Summary ---
Author Organization [employer] Address [address] [address] Care Team Providers Care Flamer After Lasting Name Role Phone Rolanda Thakur MD Primary Care Provider +[phone]- [phone] Reason for Visit * Reason Comments Med Refill Encounter Details Date Type Department Care Team ([facility] st Contact Info) Description 08/27/2024 Refill [facility] MEDICINE [address] [place] [address] Rolanda Thakur MD [address] [place], [place] [phone] Type 2 diabetes mellitus without complication, without long-term current use of insulin ([facility]) Social History Tobacco Use Types Packs/Day Years [...] Date End Date Rolanda Thakur MD [address] [place] [address] PCP - General Internal Medicine 09/19/22 documented as of this encounter
--- OUTSIDE RECORDS SUMMARY | 2025-07-04 08:52 | XMS_ITS | Clinical Summary ---
Author Organization [employer] Address [address] [place] [address] [place] [address] Care Team Providers Care Color Paste Mixer Name Role Phone Rolanda Thakur MD Primary Care Provider [phone] Allergies Active Allergy Reactions Criticality Noted Date [...] complication, without long-term current use of insulin ([facility]) Use to test blood sugar 2 times daily 1 kit 12/27/19 25 Active cetirizine (ZyrTEC) 10 MG tablet TAKE 1 TABLET BY MOUTH DAILY 30 tablet 11 01/25/20 25 Active Continuous Glucose Ibm Websphere Portal Developer (Dexcom G7 Ibm Websphere Portal Developer) deviceIndications :Type 2 diabetes mellitus without complication, [...] 25 Active Blood Glucose Monitoring Suppl (FreeStyle [place] Lite) w/Device kitIndications:Ty pe 2 diabetes mellitus [...] 60 tablet 11 05/26/20 25 2025 Active cloNIDine (Catapres) 0.1 MG tabletIndications :Anxiety,Benign [...] week. 30 g 3 06/06/20 25 Active clonazePAM (KlonoPIN) 0.5 MG tabletIndications :Panic attack,Anxiety TAKE 1 TABLET BY MOUTH EVERY DAY NEEDED FOR PANIC ATTACKS 10 tablet 06/18/20 25 Active cloNIDine (Catapres) 0.1 MG tabletIndications [...] FOR PANIC ATTACKS 10 tablet 06/03/20 25 2024 Discontinued Estradiol 0.01 % creamIndications: [...] Plan: Augmentin BID x 10 days Nasal Jolley Follow up if worsening or no improvement [...] , Patient to reach out to [facility] team as needed, Patient to engage in OP therapy , and Patient to reach out to [facility] as needed Swelling of lip, tongue, and throat 05/10/2024 Assessment & Plan (05/22/2024 1:00 PM EDT): Patient reports episodes of swelling of exposure to different antigens, at this moment given recurrence and symptoms affecting patients daily, will strongly benefit of assessment from chain maker machine to help elucidate etiology of symptoms. Peripheral [...] Encounters Date Type Department Care Team Description 07/03/2025 Orders Only [facility] [address] [place], [place] [phone] Rolanda Thakur MD Urinary urgency (Primary Dx); Frequent UTI 07/03/2025 Telephone [facility] [address] [place], [place] [phone] Lexie Unger RN 07/03/2025 Refill [facility] [address] [place], [place] [phone] Rolanda Thakur MD 06/18/2025 Orders Only [facility] External Provider, [facility] 06/17/2025 Refill [facility] [address] [place] [address] Rolanda Thakur MD Panic attack; Anxiety 06/13/2025 Orders Only [facility] [address] [place] [address] Chema Biggs MD 06/09/2025 Orders Only [facility] [address] [place] [address] Maren Hough MD Atrophic vaginitis (Primary Dx) 06/05/2025 11:15 AM EDT Office Visit [facility] [address] [place] [address] Maren Hough MD Atrophic vaginitis (Primary Dx); Type 2 diabetes mellitus with hyperglycemia, without long-term current use of insulin (HCC); Weakening of rectovaginal tissue 06/05/2025 Telephone [facility] [address] [place] [address] Rolanda Thakur MD Call Back Request; Medication Question 06/05/2025 Travel 06/05/2025 Refill [facility] [address] [place] [address] Rolanda Thakur MD Anxiety; Benign essential hypertension 06/04/2025 Telephone [facility] [address] [place] [address] Rolanda Thakur MD Nurse Triage 06/02/2025 Telephone [facility] [address] [place] [phone] Rolanda Thakur MD Nurse Triage 05/31/2025 10:00 AM EDT Office Visit [facility] [address] [place] [phone] Edward Bach MD Urinary urgency (Primary Dx) 05/31/2025 Refill [facility] [address] [place] [address] Rolanda Thakur MD Panic attack; Anxiety 05/31/2025 Travel 05/29/2025 Results Follow-Up [facility] [address] [place] [address] AppramKelsie, MARIBEL Urinalysis Complete 05/29/2025 Results Follow-Up [address] [address] Kelsie Genao, MARIBEL Culture, Urine, Routine 05/29/2025 Telephone [facility] [address], [place] [phone] Rolanda Thakur MD 05/28/2025 Orders Only [address] [address] Kelsie Genao NP 05/28/[address] [address] Rolanda Thakur MD 05/26/2025 Orders Only [facility] [address] [place] [address] Rolanda Thakur MD Frequent UTI (Primary Dx); Vaginal dryness; Acquired hypothyroidism 05/24/[address] [address] Kelsie Genao NP 05/22/2025 Refill [facility] [address] [place] [address] Rolanda Gutierrez MD 05/16/2025 Refill [facility] [address] [place] [address] Rolanda Thakur MD Panic attack; Anxiety 05/13/[address] [address] Rolanda Thakur MD 05/12/2025 Results Follow-Up [facility] [address] [place] [address] Rolanda Gutierrez MD Culture, Urine, Routine 05/10/2025 Orders Only GENERIC EXTERNAL DATA DEPARTMENT Provider, Generic External Data 05/08/2025 Refill [facility] [address] [place] [address] Rolanda Thakur MD Vitamin D deficiency 05/08/2025 Refill [facility] [address] [place] [address] Rolanda Thakur MD Recent urinary tract infection 05/07/2025 Refill [facility] [address] [place] [address] Rolanda Thakur MD 05/07/[address] [address] Rolanda Thakur MD 05/02/[address] [address] Rolanda Thakur MD Results 05/02/2025 Results Follow-Up [facility] [address] [place] [address] Ilsa Boyd RN Culture, Urine, Routine, Referral to Urology 05/02/2025 Telephone [facility] [address] [place] [address] Rolanda Thakur MD 05/01/2025 Orders Only [facility] [address] [place] [address] Rolanda Thakur MD Recent urinary tract infection (Primary Dx) 05/01/[address] [address] Rolanda Thakur MD Results 04/30/2025 Orders Only [facility] [address] [place] [address] Rolanda Thakur MD Recurrent UTI (Primary Dx) 04/30/2025 Results Follow-Up [facility] [address] [place] [address] Rolanda Thakur MD XR Hand 3+ Views Right, XR Hand 3+ Views Left 04/22/2025 3:40 PM EDT Office Visit [facility] [address] [place] [address] Rolanda Thakur MD Traumatic ecchymosis of left hand, initial encounter (Primary Dx); Right hand pain; Benign essential hypertension 04/22/2025 Travel 04/22/2025 Telephone [facility] [address] [place] [address] Rolanda Thakur MD call back / orders 04/22/2025 Results Follow-Up [facility] [address] [place] [address] Migdalia Loza, SPORTS TRAINER TSH W/Reflex to FT4, Urinalysis, Complete, with Reflex to Culture, Culture, Urine, Routine 04/21/2025 Refill [facility] [address] [place] [address] Rolanda Thakur MD Panic attack; Anxiety 04/18/2025 8:30 AM EDT Office Visit [facility] [address] [place] [address] Migdalia Loza FNP Urinary urgency (Primary Dx); Acquired hypothyroidism; Type 2 diabetes mellitus without complication, without long-term current use of insulin ([facility]) 04/18/2025 Refill [facility] [address] [place] [address] Rolanda Thakur MD Acquired hypothyroidism; Type 2 diabetes mellitus without complication, without long-term current use of insulin ([facility]) 04/18/2025 Telephone [facility] [address] [place] [address] Migdalia Loza FNP Appointment Request 04/18/2025 Travel 04/18/2025 Orders Only [facility] [address] [place] [address] Migdalia Loza FNP Acquired hypothyroidism (Primary Dx); UTI symptoms; Type 2 diabetes mellitus without complication, without long-term current use of insulin ([facility]) 04/17/2025 Telephone [facility] [address] [place] [address] Rolanda Thakur MD Nurse Triage 04/17/2025 Telephone [facility] [address] [place] [address] Rolanda Thakur MD Med Refill 04/16/2025 Refill [facility] [address] [place] [address] Rolanda Thakur MD Acquired hypothyroidism 04/15/2025 Results Follow-Up [facility] [address] [place] [address] Kimberly Bronson RN Basic Metabolic Panel 04/14/2025 Orders Only [facility] [address] [place] [address] Rolanda Thakur MD Type 2 diabetes mellitus without complication, without long-term current use of insulin ([facility]) (Primary Dx); Recent urinary tract infection 04/12/2025 Orders Only GENERIC EXTERNAL DATA DEPARTMENT Provider, Generic External Data 04/11/2025 Refill [facility] [address] [place] [address] Rolanda Thakur MD Type 2 diabetes mellitus without complication, without long-term current use of insulin ([facility]) from Last 3 Months Immunizations Immunization Administration [...] 05/10/2026 05/10/2025, 07/17/2024 Lipid Panel 05/10/2026 05/10/2025, 08/2 10/2024, 07/17/2024, Additional history exists Tobacco Screening 06/05/2026 06/05/2025 Mammogram 12/17/2026 12/17/2024, 042 04/2025, 12/17/2024 Colorectal Cancer Screening 08/09/2027 FIT DNA/Cologuard [...] on patient's age to complete this topic Goals Goal Patient Goal Type Associated Problems [...] Patient has chronic kidney disease No Huong Heredia, MINOO Help patients manage their type 2 diabetes Care Plan Help patients manage their type 2 diabetes No Huong Heredia, MINOO Patient has diabetic neuropathy Care Plan Patient has diabetic neuropathy No Huong Heredia RN Weekly blood pressure task Care Plan Weekly blood pressure task No Huong Heredia RN Weekly blood pressure task Care Plan Weekly blood pressure task No Huong Heredia, MINOO Patient has chronic kidney disease Care Plan Patient has chronic kidney disease No Huogn Heredia RN Patient has chronic kidney disease [...] has diabetic neuropathy No Rolanda Thakur MD Procedures Procedure Name Priority Date/Time Associated Diagnosis Comments XR SACRUM COCCYX 2+ VIEWS Routine 06/18/2025 8:40 AM EDT US RETROPERITONEAL COMPLETE (KIDNEYS AND BLADDER) Routine [...] without long-term current use of insulin ([facility]) Recent urinary tract infection CULTURE, URINE, ROUTINE [...] without long-term current use of insulin ([facility]/HCC) HM MAMMOGRAPHY Routine 12/17/2024 8:40 AM EDT [...] Relevant to Health Maintenance Results * XR Sacrum Coccyx 2+ Views (06/18/2025 8:40 AM EDT) Anatomical Region Laterality Modality Sacrum, Coccyx Radiographic Gabriella ging 06/18/2025 8:40 AM EDT Narrative 06/18/2025 9:06 AM EDT [facility] Adult Primary Care [facility] [place] [address] XRay Report Signed Patient: Angely Pineda MR#: [id number] : 1950 Acct:[id number] Age/Sex: 74 / F ADM Date: 06/18/25 [facility]: Flor Obrien PA-C Ordering Physician: Flor Obrien PA-C Date of Service: 06/18/25 Procedure(s): XR sacrum coccyx min 2V Accession Number(s): [id number] cc: Rolanda Thakur MD; Flor Obrien PA-C Reason for Exam: W19.XXXA - Unspecified fall, initial encounter EXAMINATION: XR SACRUM AND COCCYX CLINICAL INFORMATION: W19.XXXA - Unspecified fall, initial encounter COMPARISON: None available. TECHNIQUE: 2 views of the sacrum and 2 views of the coccyx were obtained. FINDINGS: No fracture or dislocation. Severe degenerative changes of the visualized lower lumbar spine. Soft tissues are unremarkable. XR/XR sacrum coccyx min 2V IMPRESSION: No fracture. Degenerative changes of the lower lumbar spine. Electronically signed by: Anabelle Sargent MD 06/18/2025 09:03 AM EDT Dictated By: Anabelle Sargent MD Signed By: <Electronically signed by Anabelle Sargent MD in OV> 06/18/25 0903 DD/ 0840 TD/TT: 06/18/25 0857 Roof Assembler: BLANE Procedure Note Donotuseinterpreter, Image - 06/18/2025 [facility] Adult Primary Care [facility] [place] [address] XRay Report Signed Patient: Angely PinedaMR#: [id number] : 1950cct:[id number] Age/Sex: 74 / FADM Date: 06/18/25 Loc: HO.[facility]X Attending Dr: Flor Obrien PA-C Ordering Physician: Flor Obrien PA-C Date of Service: 06/18/25 Procedure(s): XR sacrum coccyx min 2V Accession Number(s): [id number] cc: Rolanda Thakur MD; Flor Obrien PA-C Reason for Exam: W19.XXXA - Unspecified fall, initial encounter EXAMINATION: XR SACRUM AND COCCYX CLINICAL INFORMATION: W19.XXXA - Unspecified fall, initial encounter COMPARISON: None available. TECHNIQUE: 2 views of the sacrum and 2 views of the coccyx were obtained. FINDINGS: No fracture or dislocation. Severe degenerative changes of the visualized lower lumbar spine. Soft tissues are unremarkable. XR/XR sacrum coccyx min 2V IMPRESSION: No fracture. Degenerative changes of the lower lumbar spine. Electronically signed by: Anabelle Sargent MD 06/18/2025 09:03 AM EDT Dictated By: Anabelle Sargent MD Signed By: <Electronically signed by Anabelle Sargent MD in OV> 06/18/25 0903 DD/ 0840 TD/TT: 06/18/25 0857 Roof Assembler: BLANE [facility] External Provider IMG XR PROCEDURES Final Result * US RETROPERITONEAL COMPLETE (KIDNEYS AND BLADDER) (06/08/2025 9:25 AM EDT) Anatomical Region Laterality Modality Ultrasound Historical Provider IMAundrea US PROCEDURES Final R esult * POCT Glucose (06/05/2025 11:28 AM EDT) Glucose Blood, POC 195 60 - 200 mg/dL QC Media Lot # [id number] Lot# Expiration Date Blood Capillary blood specimen / Unknown 06/05/2025 11:28 AM EDT Maren Hough MD POINT OF CARE TEST ENTER/EDIT OR DERABLES Final Result * Referral to Urology (05/30/2025) Rolanda Thakur MD OUTPATIENT REFERRAL ORDERAB LES Final Result * (ABNORMAL) Urinalysis Complete (05/28/2025 7:40 AM EDT) Only the most recent of2 resultswithin the time period is included. [facility] Color Urine Dark Yellow [facility] Appearance Urine Clear [facility] PH 6.0 5.0 - 9.0 [facility] Glucose Urine UA Negative Negative mg/dL [facility] Urine Blood Negative Negative [facility] Specific [place] - Urine 1.010 1.005 - 1.025 [facility] Urine Protein Negative Neg-Trace mg/dL [facility] Urine Ketones Negative Negative mg/dL [facility] Nitrite Urine Negative Negative [facility] Leukocyte Esterase Urine Moderate (2+)(A) Negative [facility] RBC Urine 0-2 0 - 2 /HPF [facility] Urine WBC 0-5 0 - 5 /HPF [facility] Urine Squamous Epithelial Cell 0-2 0 - 2 /HPF [facility] Urine Bacteria None Seen None Seen [facility] Hyaline Casts, Urine 0-2 0 - 2 /LPF [facility] Urine Urine specimen obtained by clean catch procedure / Unknown 05/28/2025 7:40 AM EDT 05/28/2025 10:14 AM EDT Kelsie Genao NP LAB URINE ORDERABLES Final Resu lt [facility] [address] [place] [address] [phone] * Culture, Urine, Routine (05/28/2025 7:40 AM EDT) Only the most recent of4 resultswithin the time period is included. Urine Urine specimen obtained by clean catch procedure / Unknown 05/28/2025 7:40 AM EDT 05/28/2025 10:14 AM EDT Comment:UACC Narrative [facility] - 05/29/2025 9:32 AM EDT Urine Culture Report Result Urine Culture 10,000 to 50,000 cfu/ml Urine Culture Mixed bacterial hailey characteristic of Urine Culture urogenital contamination. Specimen Source: Urine clean catch Kelsie Genao AMBULANCE MECHANIC LAB MICROBIOLOGY - GENERAL RAVINDRA FONSECA Final Result Performing Organization Address [facility] Co de Phone Number [facility] [address] [place] [phone] * Protein Creatinine Ratio, Urine (05/10/2025 8:50 AM EDT) Protein, Total, Random Urine <7 <12 mg/dL [facility] Protein/Creatin ine Ratio, Ur TNP <0.2 [facility] Comment:Unable to calculate urine protein creatinine ratio due tolow creatinine or protein result. 05/10/2025 8:50 AM EDT 05/10/2025 11:44 AM EDT Generic External Data Provider LAB URINE ORDERAB LES Final Result Performing Organization Address City/[facility] Co de Phone Number [facility] [address] [place] [address] [phone] * Albumin, Random Urine W/Creatinine (05/10/2025 8:50 AM EDT) Creatinine, Urine 85.42 mg/dL [facility] Microalbumin Urine 12.0 mg/L [facility] Microalbum Creatinine Ratio Ur 14.0 <30 ug/mg cr [facility] Comment:Albumin/Creatinine R atio Reference Ranges: Normal: < 30 ug/mg creatinine Microalbuminuria: 30 - 300 ug/mg creatinineClinical Albuminuria: > 300 ug/mg creatinine 05/10/2025 8:50 AM EDT 05/10/2025 11:44 AM EDT Generic External Data Provider LAB URINE ORDERAB LES Final Result Performing Organization Address [facility] Co de Phone Number [facility] [address] [place] [phone] * TSH with Reflex to Free T4 (05/10/2025 7:54 AM EDT) Only the most recent of3 resultswithin the time period is included. Pathologist [facility] TSH reflex Free T4 2.82 0.32 - 4.0 uIU/mL [facility] 05/10/2025 7:54 AM EDT 05/10/2025 10:59 AM EDT Generic External Data Provider LAB BLOOD ORDERAB LES Final Result Performing Organization Address [facility] de Phone Number [facility] [address] [place] [phone] * (ABNORMAL) CBC auto differential (05/10/2025 7:54 AM EDT) White Blood Count 7.0 4.8 - 10.8 X10*3/uL [facility] Red Blood Count 4.07(L) 4.20 - 5.50 X10*6/uL [facility] Hemoglobin 12.2 12.0 - 16.0 g/dl [facility] Hematocrit 35.5(L) 37.0 - 47.0 % [facility] Mean Corpuscular Volume 87.2 80.0 - 98.0 fL [facility] Mean Corpuscular Hemoglobin 30.0 27.0 - 33.0 pg [facility] Mean Corpuscular HGB Conc 34.4 31.0 - 35.0 g/dl [facility] Red Cell Distribution Width 12.6 11.0 - 16.0 % [facility] Platelet Count 199 160 - 400 X10*3/uL [facility] Mean Platelet Volume 9.7 9.4 - 12.3 fL [facility] Neutrophils Percent Auto 48.2 45 - 73 % [facility] Imm Gran Pct Auto 0.1 0.0 - 0.4 % [facility] Lymphocytes Percent Auto 31.2 20 - 40 % [facility] Monocytes Percent Auto 8.1 2 - 11 % [facility] Eosinophils Percent Auto 11.3(H) 0 - 4 % [facility] Basophils Percent Auto 1.1 0 - 2 % [facility] NRBC Pct Auto 0.0 0.0 - 0.2 /100WBC [facility] Neutrophils Absolute Auto 3.4 2.0 - 8.3 x10*3/uL [facility] Imm Gran Abs Auto 0.01 0.00 - 0.03 X10*3/uL [facility] Lymphocytes Absolute Auto 2.2 1.2 - 4.9 X10*3/uL [facility] Monocytes Absolute Auto 0.6 0.1 - 1.2 X10*3/uL [facility] Eosinophils Absolute Auto 0.8(H) 0.0 - 0.4 X10*3/uL [facility] Basophils Absolute Auto 0.1 0.0 - 0.2 X10*3/uL [facility] NRBC Abs Auto 0.000 0.0 - 0.012 X10*3/uL [facility] 05/10/2025 7:54 AM EDT 05/10/2025 10:59 AM EDT us Generic External Data Provider LAB BLOOD ORDERAB LES Final Result [facility] [address] [place] [phone] * (ABNORMAL) Hemoglobin A1c (05/10/2025 7:54 AM EDT) Hemoglobin A1c 7.0(H) <6.0 % [facility] Comment:Hemoglobin A1C Refer ence Range Adults: 4.8 - 6.0 % Non diabetic: < 6.0 % Goal: < 7.0 %Additional Action Suggested: > 8.0 %Note: Hemoglobin A1c results are invalid for patients with abnormal amounts of HbF. Blood transfusions may impact the HbA1c concentration in the patient sample. Estimated Average Glucose 154 mg/dL [facility] Comment:eAG = Estimated ave rage glucose which is %A1C expressed asaverage glucose, using the formula of the [id number] Glucose study (ADAG), Diabetes Care, Vol.31,#8,Mar. 2007 05/10/2025 7:54 AM EDT 05/10/2025 10:59 AM EDT us Generic External Data Provider LAB BLOOD ORDERAB LES Final Result Performing Organization Address City/State/[facility] Co de Phone Number [facility] [address] [place] [phone] * (ABNORMAL) Lipid Panel, Standard (05/10/2025 7:54 AM EDT) Only the most recent of2 resultswithin the time period is included. Triglycerides 70 <150 mg/dL [facility] Comment:Desirable Triglyceri de: less than 150 mg/dLBorderline High Triglyceride 150-199 mg/dLHigh Triglyceride: 200-499 mg/dLVery High Triglyceride: greater than or equal to 5OO mg/dL Cholesterol 177 <200 mg/dL [facility] Comment:Desirable Cholestero l: less than 200 mg/dLBorderline High Cholesterol: 200-239 mg/dLHigh Cholesterol: greater than 239 mg/dL LDL Cholesterol Calculated 103(H) <100 mg/dL [facility] Comment:Desirable LDL: less than 100 mg/dLNear Optimal/Above Optimal LDL: 110- 129 mg/dLBorderline High LDL: 130-159 mg/dLHigh LDL: 160-189 mg/dLVery High LDL: greater than or equal to 190 mg/dL HDL Cholesterol 60 >40 mg/dL [facility] Comment:Desirable HDL: great er than 40 mg/dL Note: This HDL assay may give artificially low results in patients with liver disease. 05/10/2025 7:54 AM EDT 05/10/2025 10:59 AM EDT us Generic External Data Provider LAB BLOOD ORDERAB LES Final Result [facility] [address] [place] [phone] * (ABNORMAL) Comprehensive Metabolic Panel (05/10/2025 7:54 AM EDT) Sodium 137 135 - 145 mmol/L [facility] Potassium 4.1 3.3 - 5.1 mmol/L [facility] Chloride 108 96 - 108 mmol/L [facility] Carbon Dioxide 22 22 - 29 mmol/L [facility] Anion Gap 11(L) 12 - 20 [facility] Urea Nitrogen (BUN) 25(H) 9 - 16 mg/dL [facility] Creatinine, Serum 1.12 0.5 - 1.4 mg/dL [facility] Estimated Glomerular Filt Rate 48 [facility] Comment:Chronic Kidney Disea se: Estimated GFR < 60 mL/min/1.95s6Inwman Kidney Disease: Estimated GFR < 15 mL/min/1.73m2 Glucose 124(H) 60 - 115 mg/dL [facility] Calcium 9.7 8.4 - 10.2 mg/dL [facility] Bilirubin, Total 0.5 0.0 - 1.0 mg/dL [facility] Aspartate Amino Transferase 24 5 - 31 U/L [facility] Alanine Aminotransferase 14 0 - 31 U/L [facility] Total Protein 6.6 6.5 - 8.0 g/dL [facility] Albumin Level 4.2 3.5 - 5.0 g/dL [facility] Alkaline Phosphatase 63 39 - 117 U/L [facility] 05/10/2025 7:54 AM EDT 05/10/2025 10:59 AM EDT us Generic External Data Provider LAB BLOOD ORDERAB LES Final Result [facility] [address] [place] [phone] * XR Hand 3+ Views Right (04/30/2025 8:55 AM EDT) Anatomical Region Laterality Modality Upper Extremities, Hand Right Radiogra phic Imaging 04/30/2025 8:55 AM EDT Narrative 04/30/2025 9:20 AM EDT [facility] Adult Primary Care [address] [place] [address] [place] [address] XRay Report Signed Patient: Angely Pineda MR#: [id number] : 1950 Acct:[id number] Age/Sex: 74 / F ADM Date: 04/30/25 Loc: .[facility]X Attending Dr: Rolanda Thakur MD Ordering Physician: Rolanda Thakur MD Date of Service: 04/30/25 Procedure(s): XR hand RT min 3V Accession Number(s): [id number] cc: Rolanda Thakur MD Reason for Exam: [...] in OV> 04/30/25917 DD/ 4 TD/TT: 04/30/25899 Roof Assembler: Procedure Note Jomarter, Image - 04/30/2025 [facility] Care [address] [place] [address] [place] [address] XRay Report Signed Patient: Erma Pineda#: [id number] : 1Acct:[id number] Age/Sex: 74 / FADM Date: 04/30/25 Loc: HO.HMGCX Attending Dr: Rolanda Thakur MD Ordering Physician: Rolanda Thakur MD Date of Service: 04/30/25 Procedure(s): XR hand RT min 3V Accession Number(s): [id number] cc: Rolanda Thkaur MD Reason for Exam: right hand and [...] in OV> 04/30/25917 DD/ 4 TD/TT: 04/30/25899 Roof Assembler: Rolanda Thakur MD IMG XR PROCEDURES Final Res ult * XR Hand 3+ Views Left (04/30/2025 8:55 AM EDT) Anatomical Region Laterality Modality Upper Extremities, Hand Left Radiogra phic Imaging 04/30/2025 8:55 AM EDT Narrative 04/30/2025 9:19 AM EDT [facility] Adult Primary Care [address] [place] [address] [place] [address] XRay Report Signed Patient: Angely Pineda MR#: [id number] : 1950 Acct:[id number] Age/Sex: 74 / F ADM Date: 04/30/25 Loc: VAMSI Attending Dr: Rolanda Thakur MD Ordering Physician: Rolanda Thakur MD Date of Service: 04/30/25 Procedure(s): XR hand LT min 3V Accession Number(s): [id number] cc: Rolanda Thakur MD Reason for Exam: [...] signed by Jesus Shore MD in OV> 04/30/2516 DD/ 0855 TD/TT: 04/30/25 0900 Roof Assembler: Procedure Note Donotuseinterpreter, Image - 04/30/2025 [facility] Adult Primary Care [address] [place] [address] [place] [address] XRay Report Signed Patient: Angely PinedaMR#: [id number] : 1950cct:[id number] Age/Sex: 74 / FADM Date: 04/30/25 Loc: VAMSI Attending Dr: Rolanda Thakur MD Ordering Physician: Rolanda Thakur MD Date of Service: 04/30/25 Procedure(s): XR hand LT min 3V Accession Number(s): [id number] cc: Rolanda Thakur MD Reason for Exam: [...] in OV> 04/30/25915 DD/ 4 TD/TT: 04/30/25899 Roof Assembler: us Rolanda Thakur MD IMG XR PROCEDURES Final Res ult * (ABNORMAL) Urinalysis, Complete, with Reflex to Culture (04/30/2025 8:37 AM EDT) Only the most recent of2 resultswithin the time period is included. Color Urine Dark Yellow [facility] Appearance Urine Clear [facility] PH 6.5 5.0 - 9.0 [facility] Glucose Urine UA Negative Negative mg/dL [facility] Urine Blood Negative Negative [facility] Specific [place] - Urine 1.010 1.005 - 1.025 [facility] Urine Protein Negative Neg-Trace mg/dL [facility] Urine Ketones Negative Negative mg/dL [facility] Nitrite Urine Negative Negative [facility] Leukocyte Esterase Urine Small (1+)(A) Negative [facility] RBC Urine 0-2 0 - 2 /HPF [facility] Urine WBC 0-5 0 - 5 /HPF [facility] Urine Squamous Epithelial Cell 0-2 0 - 2 /HPF [facility] Urine Bacteria None Seen None Seen [facility] Hyaline Casts, Urine 0-2 0 - 2 /LPF [facility] Urine 04/30/2025 8:37 AM EDT 04/30/2025 1:12 PM EDT Narrative [facility] - 04/30/2025 2:16 PM EDT Urine, Clean Catch us Rolanda Thakur MD LAB URINE ORDERABLES Final Result Performing Organization Address City/[facility]/ZIP Co de Phone Number [facility] [address] [place] [address] [phone] * (ABNORMAL) Basic Metabolic Panel (04/12/2025 10:26 AM EDT) Sodium 136 135 - 145 mmol/L [facility] Potassium 5.0 3.3 - 5.1 mmol/L [facility] Chloride 106 96 - 108 mmol/L [facility] Carbon Dioxide 23 22 - 29 mmol/L [facility] Anion Gap 12 12 - 20 [facility] Urea Nitrogen (BUN) 22(H) 9 - 16 mg/dL [facility] Creatinine, Serum 0.95 0.5 - 1.4 mg/dL [facility] Estimated Glomerular Filt Rate 58 [facility] Comment:Chronic Kidney Disea se: Estimated GFR < 60 mL/min/1.08b3Djnqhh Kidney Disease: Estimated GFR < 15 mL/min/1.73m2 Glucose 147(H) 60 - 115 mg/dL [facility] Calcium 9.7 8.4 - 10.2 mg/dL [facility] Blood Venous blood specimen / Unknown 04/12/2025 10:26 AM EDT 04/12/2025 11:02 AM EDT [facility] SPORTS TRAINER LAB BLOOD ORDERABLES Final Re sult Performing Organization Address City/[facility]/ZIP Co de Phone Number [facility] [address] [place] [address] [phone] * Hm Mammography (12/17/2024 8:40 AM EDT) Anatomical Region Laterality Modality Other us Historical Provider HEALTH MAINTENANCE Final Result * Cologuard?? colon cancer screening (08/09/2024 8:30 AM EST) Cologuard Result Negative Negative 08/18/20 11:52 PM EST [facility] (CLIA #:[id number]) Comment: NEGATIVE TEST RESULT. A negative Cologuard [...] Celaya et al, N Engl J Med 2014;370(14):4969-4661) The normal value (reference range) for this assay is negative. COLOGUARD RE-SCREENING RECOMMENDATION: Periodic colorectal cancer screening is an important part of preventive healthcare for asymptomatic individuals at average risk for colorectal cancer. Following a negative Cologuard result, the [place] [employer] Society and U.S. Multi-Society Task Force screening guidelines recommend a Cologuard re-screening interval of 3 years. References: [place] [employer] Guideline for Colorectal Cancer Screening: https://www.cancer.org/cancer/huhun-rahjzc-lcwbgx/pbkyufpbf-sjwxmzjtv-wnfwwps/ac s-rec ommendations.html.; Santiago MCINTYRE, Ileana CR, Emery LalaK, Colorectal Cancer Screening: Recommendations for Physicians and Patients from the U.S. Multi-Society Task Force on Colorectal Cancer Screening , Am J Gastroenterology 2017; 112:2093-8384. TEST DESCRIPTION: Composite algorithmic analysis of stool [...] (Dioni Kelly al, N Engl J Med 2014;370(14):1077-5984.) Cologuard may produce a false negative or [...] can be accessed at the following location: www.[email or web address])/results. Additional description of the Cologuard test process, warnings and precautions can be found at www.[employer].com. Stool specimen (specimen) 08/09/2024 8:30 AM EST 08/10/2024 2:47 PM EST us Rolanda Thakur MD LAB MOLECULAR DIAGNOSTICS O RDERABLES Final Result [facility] (CLIA #:[id number]) [address] [place] [address], * Hepatitis C Antibody with Reflex to HCV, RNA, Quantitative, Real-Time PCR (07/17/2024 3:20 PM EST) Hepatitis C Antibody Nonreactive Nonreactive [facility] Comment:Antibodies to HCV no t detected; does not exclude early acuteHCV infection. Blood Venous blood specimen / Unknown 07/17/2024 3:20 PM EST 07/17/2024 5:23 PM EST Roladna Thakur MD LAB BLOOD ORDERABLES Final Result Performing Organization Address City/State/[facility] Co de Phone Number [facility] [address] [place] [phone] from Last 3 Months or Most Recently Relevant to Health Maintenance Additional Health Concerns Active Problems Noted Date [...] neuropathy 07/03/2025 Patient has diabetic neuropathy 07/03/2025 Insurance [facility] MEDICARE REPLACEMENT Care Teams Color Paste Mixer Relationship Specialty Start Date End Date Rolanda Thakur MD [address] [place] [phone] PCP - General Internal Medicine 09/19/22
--- OUTSIDE RECORDS SUMMARY | 2025-07-04 08:52 | XMS_ITS | Encounter Summary ---
Author Organization [employer] Address [address] [place] [address] Care Team Providers Care Echo Vasc Tech Name Role Phone Rolanda Thakur MD Primary Care Provider +1- [phone] Encounter Details Date Type Department Care Team ([facility] st Contact Info) Description 10/27/2023 Orders Only [facility] MED & PEDS [address] [place], [place] [phone] Bhavesh Yang, RN [address] [place] [address] Social History Tobacco Use Types Packs/Day Years [...] on filedocumented in this encounter Care Teams Echo Vasc Tech Relationship Specialty Start Date End Date Rolanda Thakur MD 505 [place] [address] PCP - General Internal Medicine 09/19/22 documented as of this encounter
--- OUTSIDE RECORDS SUMMARY | 2025-07-04 08:52 | XMS_ITS | Encounter Summary ---
Author Organization [employer] Address [address] [place] [address] Care Team Providers Care Laminator Hand Name Role Phone Rolanda Thakur MD Primary Care Provider +1- [phone] Reason for Visit * Reason Onset Date Comments Nurse Triage 01/03/2024 Encounter Details Date Type Department Care Team ([facility] st Contact Info) Description 01/03/2024 Telephone [facility] MEDICINE [address] [place] [address] Rolanda Thakur MD [address] [place], [place] [phone] Nurse Triage Social History Tobacco Use Types [...] on filedocumented in this encounter Care Teams Laminator Hand Relationship Specialty Start Date End Date Rolanda Thakur MD [address] [place] [address] PCP - General Internal Medicine 09/19/22 documented as of this encounter
--- OUTSIDE RECORDS SUMMARY | 2025-07-04 08:52 | XMS_ITS | Encounter Summary ---
Author Organization [employer] Address [address] [place] [address] Care Team Providers Care Public Speaking Instructor Name Role Phone Rolanda Thakur MD Primary Care Provider +1- [phone] Reason for Visit * Reason Onset Date Comments Medication Question 10/23/2023 Encounter Details Date Type Department Care Team ([facility] st Contact Info) Description 10/23/2023 Telephone [facility] MEDICINE [address] [place] [address] Rolanda Thakur MD [address] [place], [place] [phone] Medication Question Social History Tobacco Use Types [...] on filedocumented in this encounter Care Teams Public Speaking Instructor Relationship Specialty Start Date End Date Rolanda Thakur MD [address] [place] [address] PCP - General Internal Medicine 09/19/22 documented as of this encounter
--- OUTSIDE RECORDS SUMMARY | 2025-07-04 08:52 | XMS_ITS | Encounter Summary ---
Author Organization [employer] Address [address] [place] [address] Care Team Providers Care Firmware Architect Name Role Phone Rolanda Thakur MD Primary Care Provider +1- [phone] Encounter Details Date Type Department Care Team ([facility] st Contact Info) Description 12/07/2023 Telephone [facility] MEDICINE [address] [place] [address] [phone] Rolanda Thakur MD [address] [place] [address] Social History Tobacco Use Types Packs/Day Years [...] on filedocumented in this encounter Care Teams Firmware Architect Relationship Specialty Start Date End Date Rolanda Thakur MD [address] [place] [address] PCP - General Internal Medicine 09/19/22 documented as of this encounter
--- OUTSIDE RECORDS SUMMARY | 2025-07-04 08:52 | XMS_ITS | Encounter Summary ---
Author Organization [employer] Address [address] [place] [address] Care Team Providers Care Collar Tacker Name Role Phone Rolanda Thakur MD Primary Care Provider +1- [phone] Encounter Details Date Type Department Care Team ([facility] st Contact Info) Description 12/07/2023 Telephone [facility] MEDICINE [address] [place] [address] [phone] Rolanda Thakur MD [address] [place] [address] Social History Tobacco Use Types Packs/Day Years [...] on filedocumented in this encounter Care Teams Collar Tacker Relationship Specialty Start Date End Date Rolanda Thakur MD [address] [place] [address] PCP - General Internal Medicine 09/19/22 documented as of this encounter
--- OUTSIDE RECORDS SUMMARY | 2025-07-04 08:52 | XMS_ITS | Encounter Summary ---
Author Organization [employer] Address [address] [address] Care Team Providers Care Centrifugal Screen Tender Name Role Phone Rolanda Thakur MD Primary Care Provider +1- [phone] Reason for Visit * Reason Onset Date Comments Nurse Triage 09/24/2024 Encounter Details Date Type Department Care Team ([facility] st Contact Info) Description 09/24/2024 Telephone [facility] MEDICINE [address] [place] [address] Rolanda Thakur MD [address] [place], [place] [phone] Nurse Triage Social History Tobacco Use Types [...] WIC for today as no appts in [facility]. Pt states gets panic attacks if has to wait . Pt advised unfortunately no appts in [facility]> Unable to schedule ahead for WIC. Pt states will seek [facility] IN clinic on [facility] in [place]. Will send to team [...] acuity questions The caller accepted this outcome. [phone] documented in this encounter Plan of Treatment Not on file documented as of this encounter Visit Diagnoses Not on filedocumented in this encounter Additional Health Concerns Assessment Noted Time PHQ-9 Depression Total Score: 2 05/13/20 24 9:24 AM EDT documented as of this encounter Care Teams Centrifugal Screen Tender Relationship Specialty Start Date End Date Rolanda Thakur MD [address] [place] [address] PCP - General Internal Medicine 09/19/22 documented as of this encounter
--- OUTSIDE RECORDS SUMMARY | 2025-07-04 08:52 | XMS_ITS | Encounter Summary ---
Author Organization [employer] Address [address] [address] Care Team Providers Care Chemists Name Role Phone Rolanda Thakur MD Primary Care Provider +1- [phone] Reason for Visit * Reason Onset Date Comments Nurse Triage 08/09/2024 Encounter Details Date Type Department Care Team ([facility] st Contact Info) Description 08/09/2024 Telephone [facility] MEDICINE [address] [place] [address] Rolanda Thakur MD [address] [place], [place] [phone] Nurse Triage Social History Tobacco Use Types [...] and reasons to call back. Reviewed [facility] operating hours and that wait times vary. Protocol Used: Neck Pain or Stiffness (Adult) Protocol-Based Disposition: See in Office or Video Visit Today or Tomorrow Future Appointments Date Time Provider Department Center 08/10/2024 9:40 AM [facility] WALK[facility]IC 2 WALK-IN [facility] Insurance verified as active per Real Time Eligibility in [facility]. Positive Triage Question: * Tenderness in front of neck over windpipe * All higher-acuity triage questions were negative Care Advice Discussed: * Reasons To Call Back - Moderate pain (such as interferes with normal activities) lasts over 3 days - Numbness or weakness occurs in your arms or legs - You become worse * Telephone Encounter - Dantete Buenrostro - 08/09/2024 4:19 PM EST Symptom: [...] documented as of this encounter Care Teams Chemists Relationship Specialty Start Date End Date Rolanda Thakur MD [address] [place] [address] PCP - General Internal Medicine 09/19/22 documented as of this encounter
--- OUTSIDE RECORDS SUMMARY | 2025-07-04 08:52 | XMS_ITS | Encounter Summary ---
Author Organization [employer] Address 75 [facility] 7 [place] [address] Care Team Providers Care Printing Press Operator Apprentice Name Role Phone Rolanda Thakur MD Primary Care Provider +1- [phone] Encounter Details Date Type Department Care Team ([facility] Contact Info) Description 10/08/2024 Telephone [facility] MED & PEDS [address] [place], [place] [phone] Rolanda Thakur MD [address] [place] [address] Social History Tobacco Use Types Packs/Day Years [...] as of this encounter Care Teams Printing Press Operator Apprentice Relationship Specialty Start Date End Date Rolanda Thakur MD [address] [place] [address] PCP - General Internal Medicine 09/19/22 documented as of this encounter
--- OUTSIDE RECORDS SUMMARY | 2025-07-04 08:52 | XMS_ITS | Encounter Summary ---
Author Organization [employer] Address [address] [place] [address] Care Team Providers Care Dairy Husbandman Name Role Phone Rolanda Thakur MD Primary Care Provider +1- [phone] Reason for Visit * Reason Comments Med Refill Encounter Details Date Type Department Care Team ([facility] Contact Info) Description 05/22/2025 Refill [facility] MED & PEDS [address] [place] [address] Rolanda Thakur MD [address] [place] [address] Social History Tobacco Use Types Packs/Day Years [...] documented as of this encounter Care Teams Dairy Husbandman Relationship Specialty Start Date End Date Rolanda Thakur MD [address] [place] [address] PCP - General Internal Medicine 09/19/22 documented as of this encounter
--- OUTSIDE RECORDS SUMMARY | 2025-07-04 08:52 | XMS_ITS | Encounter Summary ---
Author Organization [employer] Address [address] [place] [address] Care Team Providers Care Drawing Box Tender Name Role Phone Rolanda Thakur MD Primary Care Provider +1- [phone] Reason for Visit * Reason Onset Date Comments Referral 11/16/2023 Encounter Details Date Type Department Care Team ([facility] Contact Info) Description 11/16/[address] [facility] CH[facility] MED & PEDS [address] [place], [place] [phone] Rolanda Thakur MD [address] [place] [address] Referral Social History Tobacco Use Types Packs/Day [...] MyChart encounter. Any questions, contact pt at [phone] documented in this encounter Plan of Treatment Not on file documented as of this encounter Visit Diagnoses Not on filedocumented in this encounter Care Teams Drawing Box Tender Relationship Specialty Start Date End Date Rolanda Thakur MD [address] [place] [address] PCP - General Internal Medicine 09/19/22 documented as of this encounter
--- OUTSIDE RECORDS SUMMARY | 2025-07-04 08:52 | XMS_ITS | Encounter Summary ---
Author Organization [employer] Address [address] [place] [address] Care Team Providers Care Histology Technician Name Role Phone Rolanda Thakur MD Primary Care Provider +1- [phone] Reason for Visit * Reason Onset Date Comments Referral 09/29/2022 Encounter Details Date Type Department Care Team ([facility] st Contact Info) Description 09/29/2022 Telephone [facility] CH[facility] MED & PEDS [address] [place] [address] Rolanda Thakur MD [address] [place] [address] Referral Social History Tobacco Use Types Packs/Day [...] to fax order to Dr Dempsey on [phone] Dempsey's office on [phone]. Will forward message to provider. RN called [...] that was sent . 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
--- OUTSIDE RECORDS SUMMARY | 2025-07-04 08:52 | XMS_ITS | Encounter Summary ---
Author Organization [employer] Address [address] [place] [address] Care Team Providers Care Radio Station Audio Engineer Name Role Phone Rolanda Thakur MD Primary Care Provider +1- [phone] Reason for Visit * Reason Onset Date Comments Call Back Request 11/17/2023 Encounter Details Date Type Department Care Team ([facility] st Contact Info) Description 11/17/2023 Telephone [facility] MEDICINE [address] [place] [address] Rolanda Thakur MD [address] [place], [place] [phone] Call Back Request Social History Tobacco Use [...] Message sent to PCP for review through [employer] portal * Telephone Encounter - Jenny Neff - 11/17/2023 8:06 AM EDT Tc from pt requesting a call back pt stated needs more information and clarifications 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 Please contact pt. documented in this encounter Plan of Treatment Not on file documented as of this encounter Visit Diagnoses Not on filedocumented in this encounter Care Teams Radio Station Audio Engineer Relationship Specialty Start Date End Date Rolanda Thakur MD [address] [place] [address] PCP - General Internal Medicine 09/19/22 documented as of this encounter
--- OUTSIDE RECORDS SUMMARY | 2025-07-04 08:52 | XMS_ITS | Encounter Summary ---
Author Organization [employer] Address [address] [place] [address] Care Team Providers Care Medical Housekeeper Name Role Phone Rolanda Thakur MD Primary Care Provider +1- [phone] Encounter Details Date Type Department Care Team ([facility] st Contact Info) Description 08/18/2023 Orders Only [facility] CH[facility] MED & PEDS [address] [place], [place] [phone] Rolanda Thakur MD [address] [place] [address] Social History Tobacco Use Types Packs/Day Years [...] filedocumented in this encounter Care Teams Medical Housekeeper Relationship Specialty Start Date End Date Rolanda Thakur MD [address] [place] [address] PCP - General Internal Medicine 09/19/22 documented as of this encounter
--- OUTSIDE RECORDS SUMMARY | 2025-07-04 08:52 | XMS_ITS | Encounter Summary ---
Author Organization [employer] Address [address] [place] [address] Care Team Providers Care Mule Driver Name Role Phone Rolanda Thakur MD Primary Care Provider +1 [phone] Reason for Referral * Consultation (Routine) - Closed Specialty Diagnoses / Procedures Referred By Contac t Referred To Contact Podiatry Diagnoses Type 2 diabetes mellitus without complication, without long-term current use of insulin (HCC) Rolanda Thakur MD [address] [place] [address] Phone: tel: fax: Carl Avitia DPM Phone: tel: fax: Referral ID Status Reason Start Date Expiration Date V isits Requested Visits Authorized [id number] Closed Specialty Services Required 11/01/2023 10/31/2024 1 1 Encounter Details Date Type Department Care Team (Late st Contact Info) Description 10/23/2023 Orders Only [facility] CH[facility] MED & PEDS [address] [place] [address] Rolanda Thakur MD [address] [place] [address] Acquired hypothyroidism (Primary Dx); Type 2 diabetes [...] complication, without long-term current use of insulin ([facility]/HCC) Expected: 11/01/2023 (Approximate), Expires: 10/31/2024 documented as of this encounter Visit Diagnoses Diagnosis Acquired hypothyroidism- Primary Unspecified hypothyroidism Type 2 diabetes mellitus without complication, without long-term current use of insulin ([facility]) documented in this encounter Care Teams Mule Driver Relationship Specialty Start Date End Date Rolanda Thakur MD [address] [place] [address] PCP - General Internal Medicine 09/19/22 documented as of this encounter
--- OUTSIDE RECORDS SUMMARY | 2025-07-04 08:52 | XMS_ITS | Encounter Summary ---
Author Organization [employer] Address [address] [place] [address] 7 [place] [address] Care Team Providers Care Urology Nurse Name Role Phone Rolanda Thakur MD Primary Care Provider [phone]- [phone] Encounter Details Date Type Department Care Team ([facility] st Contact Info) Description 09/23/2024 Orders Only [facility] MED & PEDS [address] [place], [place] [phone] Rolanda Thakur MD [address] [place] [address] Acquired hypothyroidism (Primary Dx); Benign essential hypertension [...] PM EST) Aldosterone 2 see note ng/dL [facility] Comment:Unable to flag abnor mal result(s), please refer to reference range(s) below:Adult Reference Ranges for Aldosterone, LC/MS/MS: Upright 8:00 - 10:00 am < or = 28 ng/dL Upright 4:00 - 6:00 pm < or = 21 ng/dL Supine 8:00 - 10:00 am 3 - 16 ng/dLTHIS TEST WAS PERFORMED AT:[employer]Locally [id number] [place] [address]EMDBYIFTHEO PEDERSEN MD,PHD Plasma Renin Activity 0.52 0.25 - 5.82 ng/mL/h [facility] Aldosterone/Renin Ratio 3.8 0.9 - 28.9 Ratio [facility] Comment:This test was develo ped and its analytical performancecharacteristics have been determined by [facility] [place], [place]. It hasnot been cleared or approved by the U.S. Food and DrugAdministration. This assay has been validated pursuantto the CLIA regulations and is used for clinicalpurposes.THIS TEST WAS PERFORMED AT:[facility]Locally [id number] [place] [address]NIIIBPBTHEO PEDERSEN MD,PHD Blood Venous blood specimen / Unknown 09/24/2024 1:40 PM EST 09/24/2024 4:21 PM EST Rolanda Thakur MD LAB BLOOD ORDERABLES Final Result [facility] [address] [place] [phone] * TSH W/Reflex to FT4 (09/24/2024 1:40 PM EST) TSH reflex Free T4 0.38 0.32 - 4.0 uIU/mL [facility] Blood Venous blood specimen / Unknown 09/24/2024 1:40 PM EST 09/24/2024 4:21 PM EST us Rolanda Thakur MD LAB BLOOD ORDERABLES Final Result Performing Organization Address [facility]/ZIP Co de Phone Number [facility] [address] [place] [phone] * (ABNORMAL) Basic Metabolic Panel, Fasting (09/24/2024 1:40 PM EST) Sodium 139 135 - 145 mmol/L [facility] Potassium 3.8 3.3 - 5.1 mmol/L [facility] Chloride 106 96 - 108 mmol/L [facility] Carbon Dioxide 22 22 - 29 mmol/L [facility] Anion Gap 15 12 - 20 [facility] Urea Nitrogen (BUN) 13 9 - 16 mg/dL [facility] Creatinine, Serum 0.94 0.5 - 1.4 mg/dL [facility] Estimated Glomerular Filt Rate 58 [facility] Comment:Chronic Kidney Disea se: Estimated GFR < 60 mL/min/1.47q1Mtlgol Kidney Disease: Estimated GFR < 15 mL/min/1.73m2 Glucose Fasting 169(H) 60 - 99 mg/dL [facility] Comment:A fasting glucose of 126 mg/dl or greater on more than oneoccasion is considered diagnostic of diabetes. Calcium 9.9 8.4 - 10.2 mg/dL [facility] Blood Venous blood specimen / Unknown 09/24/2024 1:40 PM EST 09/24/2024 4:21 PM EST us Rolanda Thakur MD LAB BLOOD ORDERABLES Final Result Performing Organization Address City/[facility]/ZIP Co de Phone Number [facility] [address] [place] [phone] * (ABNORMAL) CBC auto differential (09/24/2024 1:40 PM EST) White Blood Count 7.0 4.8 - 10.8 X10*3/uL [facility] Red Blood Count 4.23 4.20 - 5.50 X10*6/uL [facility] Hemoglobin 12.6 12.0 - 16.0 g/dl [facility] Hematocrit 37.0 37.0 - 47.0 % [facility] Mean Corpuscular Volume 87.5 80.0 - 98.0 fL [facility] Mean Corpuscular Hemoglobin 29.8 27.0 - 33.0 pg [facility] Mean Corpuscular HGB Conc 34.1 31.0 - 35.0 g/dl [facility] Red Cell Distribution Width 12.8 11.0 - 16.0 % [facility] Platelet Count 251 160 - 400 X10*3/uL [facility] Mean Platelet Volume 9.5 9.4 - 12.3 fL [facility] Neutrophils Percent Auto 59.8 45 - 73 % [facility] Imm Gran Pct Auto 0.3 0.0 - 0.4 % [facility] Lymphocytes Percent Auto 26.1 20 - 40 % [facility] Monocytes Percent Auto 8.6 2 - 11 % [facility] Eosinophils Percent Auto 4.3(H) 0 - 4 % [facility] Basophils Percent Auto 0.9 0 - 2 % [facility] NRBC Pct Auto 0.0 0.0 - 0.2 /100WBC [facility] Neutrophils Absolute Auto 4.2 2.0 - 8.3 x10*3/uL [facility] Imm Gran Abs Auto 0.02 0.00 - 0.03 X10*3/uL [facility] Lymphocytes Absolute Auto 1.8 1.2 - 4.9 X10*3/uL [facility] Monocytes Absolute Auto 0.6 0.1 - 1.2 X10*3/uL [facility] Eosinophils Absolute Auto 0.3 0.0 - 0.4 X10*3/uL [facility] Basophils Absolute Auto 0.1 0.0 - 0.2 X10*3/uL [facility] NRBC Abs Auto 0.000 0.0 - 0.012 X10*3/uL [facility] Blood Venous blood specimen / Unknown 09/24/2024 1:40 PM EST 09/24/2024 4:21 PM EST Rolanda Thakur MD LAB BLOOD ORDERABLES Final Result [facility] [address] [place] [phone] documented in this encounter Visit Diagnoses Diagnosis Acquired hypothyroidism- Primary Unspecified hypothyroidism Benign essential hypertension Essential hypertension, benign documented in this encounter Additional Health Concerns Assessment Noted Time PHQ-9 Depression Total Score: 2 05/13/20 24 9:24 AM EDT documented as of this encounter Care Teams Urology Nurse Relationship Specialty Start Date End Date Rolanda Thakur MD [address] [place] [phone] PCP - General Internal Medicine 09/19/22 documented as of this encounter
--- OUTSIDE RECORDS SUMMARY | 2025-07-04 08:52 | XMS_ITS | Encounter Summary ---
Author Organization [employer] Address [address] [facility] 7 [place] [address] Care Team Providers Care Back End Developer Name Role Phone Rolanda Thakur MD Primary Care Provider [phone]- [phone] Reason for Visit * Reason Onset Date Comments Med Refill 08/19/2024 Encounter Details Date Type Department Care Team (Late st Contact Info) Description 08/19/2024 Refill [facility] [address] [place] [phone] Wyatt Huizar MD [address] [place] [address] Neck pain on left side Social History [...] as of this encounter Care Teams Back End Developer Relationship Specialty Start Date End Date Rolanda Thakur MD [address] [place] [phone] PCP - General Internal Medicine 09/19/22 documented as of this encounter
--- OUTSIDE RECORDS SUMMARY | 2025-07-04 08:52 | XMS_ITS | Encounter Summary ---
Author Organization [employer] Address [address] [place] [address] Care Team Providers Care Cold Working Inspector Name Role Phone Rolanda Thakur MD Primary Care Provider [phone]- [phone] Encounter Details Date Type Department Care Team ([facility] st Contact Info) Description 10/27/2023 Telephone [facility] MEDICINE [address] [place] [address] [phone] Rolanda Thakur MD [address] [place] [address] Social History Tobacco Use Types Packs/Day Years [...] on filedocumented in this encounter Care Teams Cold Working Inspector Relationship Specialty Start Date End Date Rolanda Thakur MD [address] [place] [address] PCP - General Internal Medicine 09/19/22 documented as of this encounter
--- OUTSIDE RECORDS SUMMARY | 2025-07-04 08:52 | XMS_ITS | Encounter Summary ---
Author Organization [facility] Address [address] [place] [address] Care Team Providers Care Hospital Medical Biller Name Role Phone Rolanda Thakur MD Primary Care Provider [phone]- [phone] Encounter Details Date Type Department Care Team ([facility] st Contact Info) Description 03/28/2024 Orders Only [facility] MED & PEDS [address] [place], [place] [phone] Karen Alcantar MD [address] [place] [address] Social History Tobacco Use Types Packs/Day Years [...] filedocumented in this encounter Care Teams Hospital Medical Biller Relationship Specialty Start Date End Date Rolanda Thakur MD [address] [place] [address] PCP - General Internal Medicine 09/19/22 documented as of this encounter
--- OUTSIDE RECORDS SUMMARY | 2025-07-04 08:52 | XMS_ITS | Encounter Summary ---
Author Organization [employer] Address [address] [place] [address] Care Team Providers Care Geriatrician Name Role Phone Rolanda Thakur MD Primary Care Provider [phone]- [phone] Encounter Details Date Type Department Care Team ([facility] st Contact Info) Description 12/28/2023 Orders Only [facility] MED [facility] PEDS [address] [place], [place] [phone] Rolanda Thakur MD [address] [place] [address] Social History Tobacco Use Types Packs/Day Years [...] on filedocumented in this encounter Care Teams Geriatrician Relationship Specialty Start Date End Date Rolanda Thakur MD [address] [place] [address] PCP - General Internal Medicine 09/19/22 documented as of this encounter
--- OUTSIDE RECORDS SUMMARY | 2025-07-04 08:52 | XMS_ITS | Encounter Summary ---
Author Organization [employer] Address [address] [address] Care Team Providers Care Production Intern Name Role Phone Rolanda Thakur MD Primary Care Provider [phone]- [phone] Reason for Visit * Reason Onset Date Comments Nurse Triage 12/12/2023 Encounter Details Date Type Department Care Team ([facility] st Contact Info) Description 12/12/[address] [facility] [address] [place] [address] Rolanda Thakur MD [address] [place], [place] [phone] Nurse Triage Social History Tobacco Use Types [...] from pt requesting to speak to PCP desk operatorconstruction operations manager in regards to scheduled sick visit tmr, states was advised to contact PCP before scheduled appt to see how pt is doing, pt stated they still has a severe cough. [employer] did advised appt is still expected. Pt is scheduled tmr 12/15/23 for ( chest congestion, cough , yellow nasal drainage. ) Please contact at [phone] * Telephone Encounter - Viktoria Schultz RN [...] point. Pt is advised to come to [facility] today to be seen since open till 8pm. PT is not sure if will be able to do that. [employer] contacted Haylie Barrientos [facility] and asked if would be [...] filedocumented in this encounter Care Teams Production Intern Relationship Specialty Start Date End Date Rolanda Thakur MD [address] [place] [phone] PCP - General Internal Medicine 09/19/22 documented as of this encounter
== END 2025-07-04 09:27 | disposition home or self-care (01) ==
PROVIDERS: PCP Internal Medicine; Visit Provider Physician Assistant
DX: Z13.9 Encounter for screening, unspecified (principal); N30.00 Acute cystitis without hematuria

== ENCOUNTER 2025-07-04 09:01 | Outpatient (REF) | payer MEDICARE, SELFPAY | END 2025-07-04 09:02 | disposition home or self-care (01) | LOC: HO.LAB 09:01 | PROVIDERS: Visit Provider Physician Assistant | DX: Z13.89 Encounter for screening for other disorder (principal) | CPT/HCPCS: 87086 ==

== ENCOUNTER 2025-07-19 09:02 | Outpatient (AMB) | payer MEDICARE, SELFPAY ==
--- OUTSIDE RECORDS SUMMARY | 2025-07-19 09:04 | XMS_ITS | Continuity of Care Document ---
Author Organization [facility] [address] [place] [address] Phone [phone] Care Team Providers Care Elderly Companion Name Role Phone Rolanda Thakur M.D. Care Team Information Re ceiver [phone] Problems Active Problems Provider Date Type 2 [...] SIG Qnty Indications Order ing Provider Date [id number] Tablets 1 tab by mouth every day 90tabs Beauzile Thecarlain M.D. Losartan Bstpiqjlv505eo Tablets 1 tab by mouth every day BeauzileRolanda M.DNaman Clonidine HCL0.1mg Tablets Beauzile Thevenin M.DNaman Buspirone HCL5mg Tablets 1 tab by mouth twice a day BepachecoleRolanda M.DNaman Clonazepam0.5mg Tablets Take 1 Tablet By Mouth Every Day as Needed For Panic Attacks Beauzile, Thevenin, M.D. Aspirin Low Tsgq61ho Tablets Rolanda Morrissey M.D. Cyclobenzaprine UPI87il Tablets Take 1 Tablet By Mouth Every 8 Hours Rolanda Thakur M.D. Metformin BCH804ry Tablets Take 1 Tablet By Mouth Twice Daily Demi Brothers MD Drjpxbcci62ls Tablets 1 tab by mouth twice a [...]
--- OUTSIDE RECORDS SUMMARY | 2025-07-19 09:04 | XMS_ITS | Clinical Summary ---
Author Organization [facility] Address [address] [place] [address] Care Team Providers Care Supervisor Alum [employer] Name Role Phone Maren Hough MD Primary Care Provider [phone] Social History Tobacco Use Types Packs/Day Years [...] patient's age to complete this topic Insurance [facility] Medicare [facility] Medicare Care Teams Supervisor Alum Plant Relationship Specialty Start Date End Date Maren Hough MD [address] [place] [phone] PCP - General Family Medicine 06/20/22
--- OUTSIDE RECORDS SUMMARY | 2025-07-19 09:04 | XMS_ITS | Clinical Summary ---
Author Organization [facility] Address [address] [place], [place] [id number] Care Team Providers Care Health Care Legal Assistant Name Role Phone Rahel Hough MD Primary Care Provider [phone] Allergies Active Allergy Reactions Criticality Noted Date [...] mg by mouth daily. 0 09/09/2020 Active Kelly-3 Fatty Acids (FISH OIL) 1000 MG CAPS [...] to complete this topic Care Teams Health Care Legal Assistant Relationship Specialty Start Date End Date Rahel Hough MD [address] [facility] [place] [address] PCP - General Internal Medicine 11/20/20
--- NOTE | 2025-07-19 09:09 | AM.OFFWIN_ITS ---
Intake Vital Signs 07/19/25 09:10 Height 5 ft 4 in Weight 70.76 kg BMI 26.8 BP 178/80 H Blood Pressure Location Lt brachial Position Sitting Respiration 16 Pulse 52 Pulse Source Pulse Oximeter Temp 97.6 F Temp Source Oral Pulse Oximetry (%) 100 Oxygen Delivery Method Room Air Intake Visit Reasons: EP Panic attacks, upper back pain to leg Intake Note: Pt is here today c/o upper back pain into leg Patient Tobacco Use Status: Never used Tobacco Allergies meloxicam Allergy (Mild, Verified 07/04/25 08:44) Dizziness ciprofloxacin Allergy (Verified 07/04/25 08:44) Unknown sulfamethoxazole (From Bactrim) Allergy (Verified 07/04/25 08:44) Unknown trimethoprim (From Bactrim) Allergy (Verified 07/04/25 08:44) Unknown gabapentin (GABAPENTIN) Adverse Reaction (Mild, Verified 07/04/25 08:44) NAUSEA acetaminophen (From PERCOCET) Adverse Reaction (Unknown, Verified 07/04/25 08:44) VOMITTING codeine (CODEINE) Adverse Reaction (Unknown, Verified 07/04/25 08:44) VOMITTING meperidine (From DEMEROL) Adverse Reaction (Unknown, Verified 07/04/25 08:44) VOMITTING morphine (MORPHINE) Adverse Reaction (Unknown, Verified 07/04/25 08:44) CANT OPEN HER EYES oxycodone (From PERCOCET) Adverse Reaction (Unknown, Verified 07/04/25 08:44) VOMITTING scallops (SCALLOPS) Adverse Reaction (Unknown, Verified 07/04/25 08:44) ABD PAIN HPI EP Panic attacks, upper back pain to leg HPI Details Chief Complaint: ?I have pain in my back and something feels off with my body.? Patient also reports very high blood pressure, frequent panic attacks, and concern that her thyroid, A1C, or sodium may be abnormal. History of Present Illness: 74-year-old female presents to the walk- in clinic for evaluation of acute back pain and generalized concern about abnormal laboratory values (thyroid, A1C, sodium). She reports ?immense? low back pain attributed to her sciatic nerve. Over the past three days she has experienced 26?27 panic attacks and has been using her prescribed clonazepam ?very frequently,? more than the prescribed amount, with minimal relief. She states her blood pressure has been ?very high? at home. She thinks her thyroid is out of wack. Additional complaint of left eye pain following cataract surgery last year; she has a follow-up with ophthalmology on Monday. She denies new visual changes. She does not want to go to the hospital because of ?white coat syndrome? and requests all testing be done in the clinic today. Allergies (patient-reported): meloxicam, ciprofloxacin, trimethoprim- sulfamethoxazole, gabapentin, Percocet, Demerol, morphine, codeine, sulfa drugs, scallops. Home Medications (patient-reported): glipizide 10 mg BID, metformin 500 mg BID, losartan (dose not stated) daily, buspirone (frequency BID), clonidine BID, clonazepam (PRN; currently taking frequently), Synthroid 125 mcg daily, B- complex, vitamin D, omega 3-6-9, lutein, aspirin, cetirizine, clozapine, diclofenac sodium, vitamin C. 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 * Cardiovascular: Reports elevated blood pressure, palpitations/rapid heart rate. * Musculoskeletal: Positive for low back pain radiating along sciatic distribution. * Neurologic: Reports panic attacks; no dizziness or gait disturbance mentioned. * Eyes: Left eye pain; denies new visual changes. Physical Exam Exam Exam: * General: Appears anxious, agitated; pressured speech noted. * Cardiopulmonary: Full evaluation refused; no visible respiratory distress. * Neurologic: Alert and oriented ? 4, ambulatory with steady gait, normal coordination. Cranial nerves II?XII grossly intact. * Musculoskeletal: Patient reports low back pain; detailed exam declined. Exam limited ? patient refused further examination and left the room before completion. Vital Signs: Last Vital Signs Temp 97.6 F 07/19/25 09:10 Pulse 52 07/19/25 09:10 Resp 16 07/19/25 09:10 BP 178/80 H 07/19/25 09:10 Pulse Ox 100 07/19/25 09:10 Oxygen Delivery Method Room Air 07/19/25 09:10 BMI result Body Mass Index 26.8 Assessment & Plan Assessment & Plan (1) Panic disorder: Code(s): F41.0 - Panic disorder [episodic paroxysmal anxiety] Plan Take your medications as prescribed. If you were prescribed antibiotics today, it is important that you take your medication to their entirety, do not skip any doses, do not finish them early. Follow-up with your primary care provider this week. Return to the emergency department with new or worsening symptoms. In case of emergency call 911 Coding Level of Care Code Est Pt Level 3 (13046) Diagnoses Panic disorder F41.0
[2025-07-19 09:10] VITALS: BP 178/80; PULSE 52; RESP 16; TEMP 36.4; O2SAT 100; BMI 26.8
== END 2025-07-19 12:24 | disposition home or self-care (01) ==
PROVIDERS: PCP Internal Medicine; Visit Provider Physician Assistant
DX: F41.0 Panic disorder [episodic paroxysmal anxiety] (principal)

== ENCOUNTER → 2025-07-19 09:02 | Outpatient (BNVA) | payer MEDICARE, SELFPAY | PROVIDERS: PCP Internal Medicine; Visit Provider Physician Assistant | DX: Z53.21 Procedure and treatment not carried out due to patient leaving prior to being seen by health care provider (principal); F41.0 Panic disorder [episodic paroxysmal anxiety]; M54.50 Low back pain, unspecified; I10 Essential (primary) hypertension; R00.2 Palpitations; H57.12 Ocular pain, left eye | CPT/HCPCS: 99212 ==

== ENCOUNTER 2025-07-28 09:35 | Outpatient (AMB) | payer MEDICARE, SELFPAY ==
[2025-07-28 09:46] VITALS: BP 180/76; PULSE 68; TEMP 37; O2SAT 98; BMI 26.8
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
== END 2025-07-28 10:36 | disposition home or self-care (01) ==
PROVIDERS: PCP Internal Medicine; Visit Provider Physician Assistant Medical
DX: R09.81 Nasal congestion (principal)

== ENCOUNTER → 2025-07-28 09:35 | Outpatient (BNVA) | payer MEDICARE, SELFPAY | PROVIDERS: PCP Internal Medicine; Visit Provider Physician Assistant Medical | DX: R09.81 Nasal congestion (principal) | CPT/HCPCS: 99212 ==

== ENCOUNTER 2025-08-11 09:22 | Outpatient (AMB) | payer MEDICARE, SELFPAY ==
--- OUTSIDE RECORDS SUMMARY | 2025-08-08 15:30 | XMS_ITS | Encounter Summary ---
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 07/31/2025 Weekly blood pressure task 07/31/2025 Weekly blood pressure task 07/31/2025 Patient has chronic kidney disease 07/31/2025 Patient has chronic kidney disease 07/31/2025 Patient has chronic kidney disease 07/31/2025 Patient has diabetic neuropathy 07/31/2025 Patient has diabetic neuropathy 07/31/2025 Patient has diabetic neuropathy 07/31/2025 Weekly blood pressure task 08/01/2025 Weekly blood pressure task 08/01/2025 Weekly blood pressure task 08/01/2025 Patient has chronic kidney disease 08/01/2025 Patient has chronic kidney disease 08/01/2025 Patient has chronic kidney disease 08/01/2025 Patient has diabetic neuropathy 08/01/2025 Patient has diabetic neuropathy 08/01/2025 Patient has diabetic neuropathy 08/01/2025 Weekly blood pressure task 08/01/2025 Weekly blood pressure task 08/01/2025 Weekly blood pressure task 08/01/2025 Patient has chronic kidney disease 08/01/2025 Patient has chronic kidney disease 08/01/2025 Patient has chronic kidney disease 08/01/2025 Patient has diabetic neuropathy 08/01/2025 Patient has diabetic neuropathy 08/01/2025 Patient has diabetic neuropathy 08/01/2025 Weekly blood pressure task 08/01/2025 Weekly blood pressure task 08/01/2025 Weekly blood pressure task 08/01/2025 Patient has chronic kidney disease 08/01/2025 Patient has chronic kidney disease 08/01/2025 Patient has chronic kidney disease 08/01/2025 Patient has diabetic neuropathy 08/01/2025 Patient has diabetic neuropathy 08/01/2025 Patient has diabetic neuropathy 08/01/2025 Weekly blood pressure task 08/01/2025 Weekly blood pressure task 08/01/2025 Weekly blood pressure task 08/01/2025 Patient has chronic kidney disease 08/01/2025 Patient has chronic kidney disease 08/01/2025 Patient has chronic kidney disease 08/01/2025 Patient has diabetic neuropathy 08/01/2025 Patient has diabetic neuropathy 08/01/2025 Patient has diabetic neuropathy 08/01/2025 Weekly blood pressure task 08/04/2025 Weekly blood pressure task 08/04/2025 Weekly blood pressure task 08/04/2025 Patient has chronic kidney disease 08/04/2025 Patient has chronic kidney disease 08/04/2025 Patient has chronic kidney disease 08/04/2025 Patient has diabetic neuropathy 08/04/2025 Patient has diabetic neuropathy 08/04/2025 Patient has diabetic neuropathy 08/04/2025 Weekly blood pressure task 08/04/2025 Weekly blood pressure task 08/04/2025 Weekly blood pressure task 08/04/2025 Patient has chronic kidney disease 08/04/2025 Patient has chronic kidney disease 08/04/2025 Patient has chronic kidney disease 08/04/2025 Patient has diabetic neuropathy 08/04/2025 Patient has diabetic neuropathy 08/04/2025 Patient has diabetic neuropathy 08/04/2025 Weekly blood pressure task 08/08/2025 Weekly blood pressure task 08/08/2025 Weekly blood pressure task 08/08/2025 Patient has chronic kidney disease 08/08/2025 Patient has chronic kidney disease 08/08/2025 Patient has chronic kidney disease 08/08/2025 Patient has diabetic neuropathy 08/08/2025 Patient has diabetic neuropathy 08/08/2025 Patient has diabetic neuropathy 08/08/2025 Assessment Noted Time PHQ-9 Depression Total Score: 2 05/13/20 24 9:24 AM EDT documented as of this encounter Care Teams Focusing Machine Operator Relationship Specialty Start Date End Date Rolanda Thakur MD [address] [place] [id number] PCP - General Internal Medicine 09/19/22 documented as of this encounter
[2025-08-11 09:38] VITALS: BP 116/60; PULSE 65; TEMP 36.6; O2SAT 99; BMI 26.8
--- NOTE | 2025-08-11 09:38 | AM.OFFWIN_ITS ---
Intake Vital Signs 08/11/25 09:38 Height 5 ft 4 in Weight 156 lb BMI 26.8 BP 116/60 Blood Pressure Location Lt brachial Position Sitting Pulse 65 Pulse Source Pulse Oximeter Temp 97.9 F Temp Source Oral Pulse Oximetry (%) 99 Oxygen Delivery Method Room Air Intake Visit Reasons: EP Left leg pain Intake Note: pt presents with pain to left buttock fold for 2 days Patient Tobacco Use Status: Never used Tobacco Allergies meloxicam Allergy (Mild, Verified 08/11/25 09:47) Dizziness ciprofloxacin Allergy (Verified 08/11/25 09:47) Unknown sulfamethoxazole (From Bactrim) Allergy (Verified 08/11/25 09:47) Unknown trimethoprim (From Bactrim) Allergy (Verified 08/11/25 09:47) Unknown gabapentin (GABAPENTIN) Adverse Reaction (Mild, Verified 08/11/25 09:47) NAUSEA acetaminophen (From PERCOCET) Adverse Reaction (Unknown, Verified 08/11/25 09:47) VOMITTING codeine (CODEINE) Adverse Reaction (Unknown, Verified 08/11/25 09:47) VOMITTING meperidine (From DEMEROL) Adverse Reaction (Unknown, Verified 08/11/25 09:47) VOMITTING morphine (MORPHINE) Adverse Reaction (Unknown, Verified 08/11/25 09:47) CANT OPEN HER EYES oxycodone (From PERCOCET) Adverse Reaction (Unknown, Verified 08/11/25 09:47) VOMITTING scallops (SCALLOPS) Adverse Reaction (Unknown, Verified 08/11/25 09:47) ABD PAIN Do you need a note to return to daycare/school/sports/work: No HPI HPI Comments History of Present Illness Details 75-year-old female presents to the walk- in clinic with complaints of left buttock pain radiating down to the lower leg since Monday. Patient reports she was recently evaluated here in 05/2025 for similar symptoms, at which time lumbar spine X-rays showed severe degenerative changes of the visualized lower lumbar spine. She reports partial relief with OTC Aspirin Arthritis, stretching exercises, rolling on a round ball, use of ICY/HOT, and hot showers. Pain is worsened with bending and walking. Denies numbness, tingling, weakness, or saddle anesthesia. Denies urinary or bowel incontinence or retention. No recent trauma reported. 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 Neuro Other: Strength 5/5 in bilateral lower extremities, Sensation intact to light touch, No focal neurologic deficits appreciated General: patient oriented x3 Psych Speech and movement: Normal speech and movement present Assessment & Plan Assessment & Plan (1) Coccygeal pain, acute: Code(s): M53.3 - Sacrococcygeal disorders, not elsewhere classified Plan: Continue stretching exercises, heat therapy, and gentle activity as tolerated Avoid prolonged bending, twisting, or heavy lifting Encouraged proper body mechanics Continue Aspirin Arthritis OTC as tolerated. Acetaminophen PRN for additional pain control. Referral to Pain clinic. Advised to seek immediate care for new numbness, weakness, bowel/bladder dysfunction, saddle anesthesia, or worsening pain. Orders: Referrals Pain Management Referral M53.3 - Sacrococcygeal disorders, not elsewhere classified Coding Level of Care Code Est Pt Level 4 (05289) Diagnoses Coccygeal pain, acute M53.3 Time Spent (min) 20
--- OUTSIDE RECORDS SUMMARY | 2025-08-11 10:31 | XMS_ITS | Continuity of Care Document ---
Author Organization [facility] [address] [place] [address] Phone [phone] Care Team Providers Care Iron Worker Apprentice Name Role Phone Rolanda Thakur M.D. Care Team Information Re ceiver [phone] Problems Active Problems Provider Date Type 2 [...] SIG Qnty Indications Order ing Provider Date Qliwjdyrm025hef Tablets 1 tab by mouth every day 90tabs Beauzile Thecarlain M.D. Losartan Vbqjtdrjz233ie Tablets 1 tab by mouth every day BeauzileRolanda M.DNaman Clonidine HCL0.1mg Tablets Beauzile Thevenin M.DNaman Buspirone HCL5mg Tablets 1 tab by mouth twice a day BepachecoleRolanda M.DNaman Clonazepam0.5mg Tablets Take 1 Tablet By Mouth Every Day as Needed For Panic Attacks Beauzile, Thevenin, M.D. Aspirin Low Asxa93ik Tablets Rolanda Morrissey M.D. Cyclobenzaprine LSL81hj Tablets Take 1 Tablet By Mouth Every 8 Hours Rolanda Thakur M.D. Metformin LTG853yf Tablets Take 1 Tablet By Mouth Twice Daily Demi Brothers MD Wuyrasqzf22bc Tablets 1 tab by mouth twice a [...] White M.D. Plan of Treatment Future Appointment(s):* 10/08/2025 10:00 [...]
--- OUTSIDE RECORDS SUMMARY | 2025-08-11 10:31 | XMS_ITS | Encounter Summary ---
Author Organization [facility] Address [address] [place] [address] 7 [place] [address] Care Team Providers Care Air Plant Engineer Name Role Phone Rolanda Thakur MD Primary Care Provider [phone]- [phone] Encounter Details Date Type Department Care Team ([facility] Contact Info) Description 07/03/2025 Orders Only [facility] CHC MED & PEDS [address] [place] [address] Rolanda Thakur MD [address] [place] [address] Urinary urgency (Primary Dx); Frequent UTI Social [...] Upcoming Encounters Date Type Department Care Team ([facility] st Contact Info) Description 09/12/2025 3:15 PM EST Office Visit [facility] MED & PEDS [address] [place] [address] Rolanda Thakur MD [address] [place] [address] Scheduled Orders Name Type Priority Associated Diagnoses Orde r Schedule Culture, Urine, Routine Microbiology Routine Urinary urgency Frequent UTI Expected: 07/03/2025 (Approximate), Expires: 07/03/2026 documented as of this encounter Goals Goal Patient Goal Type Associated Problems Recent Progress Patient-Stated? Author Help patients manage their type 2 diabetes Care Plan Help patients manage their type 2 diabetes No Huong Heredia, MINOO Weekly blood pressure task Care Plan Weekly blood pressure task No Huong Heredia, RN Help patients manage their type 2 diabetes Care Plan Help patients manage their type 2 diabetes No Huong Heredia, MINOO Patient has chronic kidney disease Care Plan Patient has chronic kidney disease No Huong Heredia, RN Help patients manage their type 2 diabetes Care Plan Help patients manage their type 2 diabetes No Huong Heredia, RN Patient has diabetic neuropathy Care Plan Patient has diabetic neuropathy No Huong Heredia, RN Weekly blood pressure task Care Plan [...] documented as of this encounter Care Teams Air Plant Engineer Relationship Specialty Start Date End Date Rolanda Thakur MD [address] [place] [id number] PCP - General Internal Medicine 09/19/22 documented as of this encounter
--- OUTSIDE RECORDS SUMMARY | 2025-08-11 10:31 | XMS_ITS | Encounter Summary ---
Author Organization [employer] Address [address] [address] Care Team Providers Care Locker Attendant Name Role Phone Rolanda Thakur MD Primary Care Provider [phone] Reason for Visit * Reason Onset Date Comments Lab Orders 07/16/2025 Encounter Details Date Type Department Care Team ([facility] st Contact Info) Description 07/16/2025 Telephone [facility] MEDICINE [address] [place] [address] Rolanda Thakur MD [address] [place], [place] [phone] Lab Orders Social History Tobacco Use Types Packs/Day Years [...] * Telephone Encounter - Lea Montes - 07/16/2025 2:55 PM EST Tc from pt requesting a call back regarding prior message. Contact pt at [phone] * Telephone Encounter - Isabela Lovell - 07/16/2025 8:23 AM EST TC from patient requesting lab orders for A1c, thyroid panel, TSH, and sodium. To be send [facility] on [address] documented in this encounter Plan of Treatment Upcoming Encounters Date Type Department Care Team (Late st Contact Info) Description 09/12/2025 3:15 PM EST Office Visit [facility] CHC MED & PEDS [address] [place] [address] Rolanda Thakur MD [address] [place] [address] documented as of this encounter Goals Goal [...] Care Plan Weekly blood pressure task No Oliver, Jesi, LAND SURVEYOR Weekly blood pressure task Care Plan Weekly blood pressure task No Oliver, Jesi, LAND SURVEYOR Weekly blood pressure task Care Plan Weekly blood pressure task No Oliver, Jesi, LAND SURVEYOR Patient has chronic kidney disease Care Plan Patient has chronic kidney disease No Oliver, Jesi, LAND SURVEYOR Patient has chronic kidney disease Care Plan Patient has chronic kidney disease No Oliver, Jesi, LAND SURVEYOR Patient has chronic kidney disease Care Plan Patient has chronic kidney disease No Oliver, Jesi, LAND SURVEYOR Patient has diabetic neuropathy Care Plan Patient has diabetic neuropathy No Oliver, Jesi, LAND SURVEYOR Patient has diabetic neuropathy Care Plan Patient has diabetic neuropathy No Oliver, Jesi, LAND SURVEYOR Patient has diabetic neuropathy Care Plan Patient has diabetic neuropathy No Oliver, Jesi, LAND SURVEYOR Weekly blood pressure task Care Plan Weekly blood pressure task No Oliver, Jesi, LAND SURVEYOR Weekly blood pressure task Care Plan Weekly blood pressure task No Oliver, Jesi, LAND SURVEYOR Weekly blood pressure task Care Plan Weekly blood pressure task No Oliver, Jesi, LAND SURVEYOR Patient has chronic kidney disease Care Plan Patient has chronic kidney disease No Oliver, Jesi, LAND SURVEYOR Patient has chronic kidney disease Care Plan Patient has chronic kidney disease No Oliver, Jesi, LAND SURVEYOR Patient has chronic kidney disease Care Plan Patient has chronic kidney disease No Oliver, Jesi, LAND SURVEYOR Patient has diabetic neuropathy Care Plan Patient has diabetic neuropathy No Oliver, Jesi, LAND SURVEYOR Patient has diabetic neuropathy Care Plan Patient has diabetic neuropathy No Oliver, Jesi, LAND SURVEYOR Patient has diabetic neuropathy Care Plan Patient has diabetic neuropathy No Oliver, Jesi, LAND SURVEYOR Weekly blood pressure task Care Plan Weekly [...] Patient has chronic kidney disease No Colon Nas, Isabela Patient has diabetic neuropathy Care Plan Patient has diabetic neuropathy No Colon Lovell, Isabela Patient has diabetic neuropathy Care Plan Patient has diabetic neuropathy No Isabela Landeros Patient has diabetic neuropathy Care Plan Patient has diabetic neuropathy No Isabela Landeros Weekly blood pressure task Care Plan Weekly [...] has diabetic neuropathy No Lexie Unger RN documented as of this encounter Visit Diagnoses [...] neuropathy 07/16/2025 Patient has diabetic neuropathy 07/16/2025 Assessment Noted Time PHQ-9 Depression Total Score: 2 05/13/20 24 9:24 AM EDT documented as of this encounter Care Teams Locker Attendant Relationship Specialty Start Date End Date Rolanda Thakur MD [address] [place] [address] PCP - General Internal Medicine 09/19/22 documented as of this encounter
--- OUTSIDE RECORDS SUMMARY | 2025-08-11 10:31 | XMS_ITS | Encounter Summary ---
Author Organization [employer] [facility] Address [address] [facility] 7 [place] [address] Care Team Providers Care Custom Van Converter Name Role Phone Roalnda Thakur MD Primary Care Provider [phone]- [phone] Encounter Details Date Type Department Care Team ([facility] Contact Info) Description 12/02/2024 Telephone [facility] CHC MED & PEDS [address] [place], [place] [phone] Rolanda Thakur MD [address] [place] [address] Social History Tobacco Use Types Packs/Day Years [...] [facility] st Contact Info) Description 09/12/2025 3:15 PM EST Office Visit [facility] MED & PEDS [address] [place] [address] Rolanda Thakur MD [address] [place] [address] documented as of this encounter Visit Diagnoses Not on filedocumented in this encounter Additional Health Concerns Assessment Noted Time PHQ-9 Depression Total Score: 2 05/13/20 24 9:24 AM EDT documented as of this encounter Care Teams Custom Van Converter Relationship Specialty Start Date End Date Rolanda Thakur MD [address] [place] [address] PCP - General Internal Medicine 09/19/22 documented as of this encounter
--- OUTSIDE RECORDS SUMMARY | 2025-08-11 10:31 | XMS_ITS | Encounter Summary ---
Author Organization [employer] Address [address] [place] [address] Care Team Providers Care Soil Engineer Name Role Phone Rolanda Thakur MD Primary Care Provider [phone]- [phone] Reason for Visit * Reason Onset Date Comments Med Refill 07/11/2025 Encounter Details Date Type Department Care Team ([facility] st Contact Info) Description 07/11/2025 Refill [facility] CHC MED & PEDS [address] [place] [address] Rolanda Thakur MD [address] [place] [address] Social History Tobacco Use Types Packs/Day Years [...] Description 09/12/2025 3:15 PM EST Office Visit [facility] CHC MED & PEDS [address] [place] [address] Rolanda Thakur MD [address] [place] [address] documented as of this encounter Goals Goal [...] Patient has diabetic neuropathy No Huong Heredia, MINOO Weekly blood pressure task Care Plan Weekly blood pressure task No Huong Heredia, MINOO Weekly blood pressure [...] Patient has chronic kidney disease No Lexie Ugner RN Patient has chronic kidney disease Care [...] has diabetic neuropathy No Huong Heredia RN documented as of this encounter Visit [...] neuropathy 07/11/2025 Patient has diabetic neuropathy 07/11/2025 Assessment Noted Time PHQ-9 Depression Total Score: 2 05/13/20 24 9:24 AM EDT documented as of this encounter Care Teams Soil Engineer Relationship Specialty Start Date End Date Rolanda Thakur MD [address] [place] [address] PCP - General Internal Medicine 09/19/22 documented as of this encounter
--- OUTSIDE RECORDS SUMMARY | 2025-08-11 10:31 | XMS_ITS | Encounter Summary ---
Author Organization [employer] Address [address] [place] [address] Care Team Providers Care Microbiology Analyst Name Role Phone Rolanda Thakur MD Primary Care Provider [phone]- [phone] Reason for Visit * Reason Comments Med Refill Encounter Details Date Type Department Care Team ([facility] st Contact Info) Description 12/03/2024 Refill [facility] CHC MED & PEDS [address] [place], [place] [phone] Rolanda Thakur MD [address] [place] [address] Diabetic polyneuropathy associated with type 2 diabetes [...] Description 09/12/2025 3:15 PM EST Office Visit [facility] MED & PEDS [address] [place] [address] Rolanda Thakur MD [address] [place] [address] documented as of this encounter Visit Diagnoses Diagnosis Diabetic polyneuropathy associated with type 2 diabetes mellitus (HCC) documented in this encounter Additional Health Concerns Assessment Noted Time PHQ-9 Depression Total Score: 2 05/13/20 24 9:24 AM EDT documented as of this encounter Care Teams Microbiology Analyst Relationship Specialty Start Date End Date Rolanda Thakur MD [address] [place] [address] PCP - General Internal Medicine 09/19/22 documented as of this encounter
--- OUTSIDE RECORDS SUMMARY | 2025-08-11 10:31 | XMS_ITS | Encounter Summary ---
Author Organization [facility] [facility] Address [address] [place] [address] 7 [place] [address] Care Team Providers Care Wheel Aligner Name Role Phone Rolanda Thakur MD Primary Care Provider [phone]- [phone] Reason for Visit * Reason Comments Med Refill Encounter Details Date Type Department Care Team ([facility] Contact Info) Description 12/28/2022 Refill [facility] CHC MED & PEDS [address] [place] [address] Maren Hough MD [address] [place] [address] Type 2 diabetes mellitus without complication, without long-term current use of insulin ([facility]); Anxiety Social History Tobacco [...] Upcoming Encounters Date Type Department Care Team ([facility] Contact Info) Description 09/12/2025 3:15 PM EST Office Visit [facility] CHC MED & PEDS [address] [place] [address] Rolanda Thakur MD [address] [place] [address] documented as of this encounter Visit Diagnoses Diagnosis Type 2 diabetes mellitus without complication, without long-term current use of insulin (HCC) Anxiety Anxiety state, unspecified documented in this encounter Care Teams Wheel Aligner Relationship Specialty Start Date End Date Rolanda Thakur MD [address] [place] [address] PCP - General Internal Medicine 09/19/22 documented as of this encounter
--- OUTSIDE RECORDS SUMMARY | 2025-08-11 10:31 | XMS_ITS | Encounter Summary ---
Author Organization [employer] Address [address] [facility] [address]t [place] [address] Care Team Providers Care Firer Powerhouse Name Role Phone Rolanda Thakur MD Primary Care Provider [phone] Encounter Details Date Type Department Care Team ([facility] st Contact Info) Description 06/13/2025 Orders Only [facility] CHC MED & PEDS [address] [place] [address] ProviderChema MD Social History Tobacco Use Types [...] Upcoming Encounters Date Type Department Care Team ([facility] st Contact Info) Description 09/12/2025 3:15 PM EST Office Visit [facility] MED & PEDS [address] [place] [address] Rolanda Thakur MD [address] [place] [address] documented as of this encounter Procedures Procedure [...] documented as of this encounter Care Teams Firer Powerhouse Relationship Specialty Start Date End Date Rolanda Thakur MD [address] [place] [address] PCP - General Internal Medicine 09/19/22 documented as of this encounter
--- OUTSIDE RECORDS SUMMARY | 2025-08-11 10:31 | XMS_ITS | Encounter Summary ---
Author Organization [employer] Address [address] [address] Care Team Providers Care Assistant Women'S Soccer Coach Name Role Phone Rolanda Thakur MD Primary Care Provider [phone] Reason for Visit * Reason Onset Date Comments Medication Question 08/04/2025 Encounter Details Date Type Department Care Team ([facility] Contact Info) Description 08/04/2025 Telephone [facility] MEDICINE [address] [place] [address] Rolanda Thakur MD [address] [place], [place] [phone] Medication Question Social History Tobacco Use Types [...] encounter Miscellaneous Notes * Telephone Encounter - Philip Manuel - 08/04/2025 3:42 PM EST Tc from pt requesting call back regarding medication losartan (Cozaar) 100 MG tablet not working all . Please contact at [phone] documented in this encounter Plan of Treatment Upcoming Encounters Date Type Department Care Team (Late st Contact Info) Description 09/12/2025 3:15 PM EST Office Visit [facility] MED & PEDS [address] [place] [address] Rolanda Thakur MD [address] [place] [address] documented as of this encounter Goals Goal [...] diabetes No Huong Heredia, RN Patient has chronic kidney disease Care [...] Plan Weekly blood pressure task No Jesi Boyd LPN Weekly blood pressure task Care Plan Weekly blood pressure task No Jesi Boyd LPN Weekly blood pressure task Care Plan Weekly blood pressure task No Jesi Boyd LPN Patient has chronic kidney disease Care Plan Patient has chronic kidney disease No Jesi Boyd LPN Patient has chronic kidney disease Care Plan Patient has chronic kidney disease No Jesi Boyd LPN Patient has chronic kidney disease Care Plan Patient has chronic kidney disease No Oliver, Jesi, COUTIERIER Patient has diabetic neuropathy Care Plan Patient has diabetic neuropathy No Oliver, Jesi, COUTIERIER Patient has diabetic neuropathy Care Plan Patient has diabetic neuropathy No Oliver, Jesi, COUTIERIER Patient has diabetic neuropathy Care Plan Patient has diabetic neuropathy No Oliver, Jesi, COUTIERIER Weekly blood pressure task Care Plan Weekly blood pressure task No Oliver, Jesi, COUTIERIER Weekly blood pressure task Care Plan Weekly blood pressure task No Oliver, Jesi, COUTIERIER Weekly blood pressure task Care Plan Weekly blood pressure task No Oliver, Jesi, COUTIERIER Patient has chronic kidney disease Care Plan Patient has chronic kidney disease No Oliver, Jesi, COUTIERIER Patient has chronic kidney disease Care Plan Patient has chronic kidney disease No Oliver, Jesi, COUTIERIER Patient has chronic kidney disease Care Plan Patient has chronic kidney disease No Oliver, Jesi, COUTIERIER Patient has diabetic neuropathy Care Plan Patient has diabetic neuropathy No Oliver, Jesi, COUTIERIER Patient has diabetic neuropathy Care Plan Patient has diabetic neuropathy No Oliver, Jesi, COUTIERIER Patient has diabetic neuropathy Care Plan Patient has diabetic neuropathy No Oliver, Jesi, COUTIERIER Weekly blood pressure task Care Plan Weekly [...] Plan Patient has chronic kidney disease No Mizti Laboy RN Patient has chronic kidney disease [...] Weekly blood pressure task No Uday Wu Patient has chronic kidney disease Care Plan Patient has chronic kidney disease No Uday Wu Patient has chronic kidney disease Care Plan Patient has chronic kidney disease No Uday Wu Patient has chronic kidney disease Care Plan Patient has chronic kidney disease No Udya Wu Patient has diabetic neuropathy Care Plan Patient has diabetic neuropathy No Uday Wu Patient has diabetic neuropathy Care Plan Patient has diabetic neuropathy No Uday Wu Patient has diabetic neuropathy Care Plan Patient has diabetic neuropathy No Uday Wu Weekly blood pressure task Care Plan Weekly blood pressure task No Uday Wu Weekly blood pressure task Care Plan Weekly blood pressure task No Uday Wu Weekly blood pressure task Care Plan Weekly blood pressure task No Uday Wu Patient has chronic kidney disease Care Plan Patient has chronic kidney disease No Uday Wu Patient has chronic kidney disease Care Plan Patient has chronic kidney disease No Uday Wu Patient has chronic kidney disease Care Plan Patient has chronic kidney disease No Uday Wu Patient has diabetic neuropathy Care Plan Patient has diabetic neuropathy No Uday Wu Patient has diabetic neuropathy Care Plan Patient has diabetic neuropathy No Uday Wu Patient has diabetic neuropathy Care Plan Patient [...] Patient has diabetic neuropathy No Philip Manuel documented as of this encounter Visit Diagnoses [...] neuropathy 08/04/2025 Patient has diabetic neuropathy 08/04/2025 Assessment Noted Time PHQ-9 Depression Total Score: 2 05/13/20 24 9:24 AM EDT documented as of this encounter Care Teams Assistant Women'S Soccer Coach Relationship Specialty Start Date End Date Rolanda Thakur MD [address] [place] [id number] PCP - General Internal Medicine 09/19/22 documented as of this encounter
--- OUTSIDE RECORDS SUMMARY | 2025-08-11 10:31 | XMS_ITS | Encounter Summary ---
Author Organization [email or web address] Address [address] [address] Care Team Providers Care Oyster Unloader Name Role Phone Rolanda Thakur MD Primary Care Provider [phone]- [phone] Reason for Visit * Reason Onset Date Comments Medication Question 11/27/2024 Encounter Details Date Type Department Care Team ([facility] st Contact Info) Description 11/27/2024 Telephone [facility] MEDICINE [address] [place] [address] Rolanda Thakur MD [address] [place], [place] [phone] Medication Question Social History Tobacco Use Types [...] going through what is going on. Contact [phone] documented in this encounter Plan of Treatment Upcoming Encounters Date Type Department Care Team (Late st Contact Info) Description 09/12/2025 3:15 PM EST Office Visit [facility] MED & PEDS [address] [place] [address] Rolanda Thakur MD [address] [place] [address] documented as of this encounter Visit Diagnoses Not on filedocumented in this encounter Additional Health Concerns Assessment Noted Time PHQ-9 Depression Total Score: 2 05/13/20 24 9:24 AM EDT documented as of this encounter Care Teams Oyster Unloader Relationship Specialty Start Date End Date Rolanda Thakur MD [address] [place] [phone] PCP - General Internal Medicine 09/19/22 documented as of this encounter
--- OUTSIDE RECORDS SUMMARY | 2025-08-11 10:31 | XMS_ITS | Encounter Summary ---
Author Organization [employer] Address [address] [place] [address] Care Team Providers Care Table Hand Name Role Phone Rolanda Thakur MD Primary Care Provider [phone]- [phone] Reason for Visit * Reason Onset Date Comments Nurse Triage 08/01/2025 Encounter Details Date Type Department Care Team ([facility] st Contact Info) Description 08/01/2025 Telephone [facility] MED & PEDS [address] [place] [address] Rolanda Thakur MD [address] [place] [address] Nurse Triage Social History Tobacco Use Types [...] * Telephone Encounter - Uday Wu - 08/01/2025 3:49 PM EST Tc from pt reporting that the Amoxicillin was making her have side affects and causing her to get hypertension. Contact pt at [phone] documented in this encounter Plan of Treatment Upcoming Encounters Date Type Department Care Team (Late st Contact Info) Description 09/12/2025 3:15 PM EST Office Visit [facility]EDS [address] [place] [address] Rolanda Thakur MD [address] [place] [address] documented as of this encounter Goals Goal [...] Care Plan Patient has diabetic neuropathy No Rolnada Thakur MD Weekly blood pressure task Care [...] has chronic kidney disease No Oliver, Jesi, GALLERY OR MUSEUM ATTENDANT Patient has diabetic neuropathy Care Plan Patient has diabetic neuropathy No Oliver, Jesi, GALLERY OR MUSEUM ATTENDANT Patient has diabetic neuropathy Care Plan Patient has diabetic neuropathy No Oliver, Jesi, GALLERY OR MUSEUM ATTENDANT Patient has diabetic neuropathy Care Plan Patient has diabetic neuropathy No Oliver, Jesi, GALLERY OR MUSEUM ATTENDANT Weekly blood pressure task Care Plan Weekly blood pressure task No Oliver, Jesi, GALLERY OR MUSEUM ATTENDANT Weekly blood pressure task Care Plan Weekly blood pressure task No Oliver, Jesi, GALLERY OR MUSEUM ATTENDANT Weekly blood pressure task Care Plan Weekly blood pressure task No Oliver, Jesi, GALLERY OR MUSEUM ATTENDANT Patient has chronic kidney disease Care Plan Patient has chronic kidney disease No Oliver, Jesi, GALLERY OR MUSEUM ATTENDANT Patient has chronic kidney disease Care Plan Patient has chronic kidney disease No Oliver, Jesi, GALLERY OR MUSEUM ATTENDANT Patient has chronic kidney disease Care Plan Patient has chronic kidney disease No Oliver, Jesi, GALLERY OR MUSEUM ATTENDANT Patient has diabetic neuropathy Care Plan Patient has diabetic neuropathy No Oliver, Jesi, GALLERY OR MUSEUM ATTENDANT Patient has diabetic neuropathy Care Plan Patient has diabetic neuropathy No Oliver, Jesi, GALLERY OR MUSEUM ATTENDANT Patient has diabetic neuropathy Care Plan Patient has diabetic neuropathy No Oliver, Jesi, GALLERY OR MUSEUM ATTENDANT Weekly blood pressure task Care Plan Weekly [...] Care Plan Weekly blood pressure task No WuUday quezada Weekly blood pressure task Care Plan Weekly blood pressure task No WuUday Weekly blood pressure task Care Plan Weekly blood pressure task No WuUday Patient has chronic kidney disease Care Plan Patient has chronic kidney disease No WuUday Patient has chronic kidney disease Care Plan Patient has chronic kidney disease No WuUday Patient has chronic kidney disease Care Plan Patient has chronic kidney disease No WuUday Patient has diabetic neuropathy Care Plan Patient has diabetic neuropathy No WuUday Patient has diabetic neuropathy Care Plan Patient has diabetic neuropathy No WuUday Patient has diabetic neuropathy Care Plan Patient has diabetic neuropathy No WuUday quezada Weekly blood pressure task Care Plan Weekly blood pressure task No WuUday Weekly blood pressure task Care Plan Weekly blood pressure task No WuUday Weekly blood pressure task Care Plan Weekly blood pressure task No WuUday Patient has chronic kidney disease Care Plan Patient has chronic kidney disease No WuUday Patient has chronic kidney disease Care Plan Patient has chronic kidney disease No Wu, Uday Patient has chronic kidney disease Care Plan Patient has chronic kidney disease No WuUday Patient has diabetic neuropathy Care Plan Patient has diabetic neuropathy No WuUday Patient has diabetic neuropathy Care Plan Patient has diabetic neuropathy No WuUday quezada Patient has diabetic neuropathy Care Plan Patient has diabetic neuropathy No Uday Wu documented as of this encounter Visit Diagnoses [...] neuropathy 08/01/2025 Patient has diabetic neuropathy 08/01/2025 Assessment Noted Time PHQ-9 Depression Total Score: 2 05/13/20 24 9:24 AM EDT documented as of this encounter Care Teams Table Hand Relationship Specialty Start Date End Date Rolanda Thakur MD [address] [place] [id number] PCP - General Internal Medicine 09/19/22 documented as of this encounter
--- OUTSIDE RECORDS SUMMARY | 2025-08-11 10:31 | XMS_ITS | Encounter Summary ---
Author Organization [employer] Address [address] [place] [address] Care Team Providers Care Machine Operations Supervisor Name Role Phone Rolanda Thakur MD Primary Care Provider [phone]- [phone] Reason for Visit * Reason Comments Med Refill Encounter Details Date Type Department Care Team ([facility] Contact Info) Description 07/03/2025 Refill [facility] MED & PEDS [address] [place] [address] Rolanda Thakur MD [address] [place] [address] Social History Tobacco Use Types Packs/Day Years [...] Upcoming Encounters Date Type Department Care Team ([facility] st Contact Info) Description 09/12/2025 3:15 PM EST Office Visit [facility] MED & PEDS [address] [place] [address] Rolanda Thakur MD [address] [place] [address] documented as of this encounter Goals Goal [...] blood pressure task No Huong Heredia, RN Weekly blood pressure task Care Plan Weekly blood pressure task No Huong Heredia, RN Patient has chronic [...] as of this encounter Care Teams Machine Operations Supervisor Relationship Specialty Start Date End Date Rolanda Thakur MD [address] [place] [address] PCP - General Internal Medicine 09/19/22 documented as of this encounter
--- OUTSIDE RECORDS SUMMARY | 2025-08-11 10:31 | XMS_ITS | Clinical Summary ---
Author Organization [address] [place] [address] [place] [phone] Phone Care Team Providers Care Radio Tower Technician Name Role Phone Rolanda Thakur MD Primary Care Provider +1 -[phone] Allergies Active Allergy Reactions Criticality Noted Date [...] total) 1 (one) time each day. Active cloNIDine [...] by mouth if needed for anxiety. Active busPIRone (BUSPAR) 5 mg tablet Take by mouth 2 (two) times a day. 07/23/20 Discontinu ed(Dose adjustment ) cetirizine (ZyrTEC) 10 mg tablet Take 1 tablet (10 mg total) by mouth 1 (one) time each day. 07/23/20 Discontinu ed(Therapy completed) empagliflozin (Jardiance) 10 mg tablet Take 1 tablet (10 mg total) by mouth 1 (one) time each day in the morning. 07/23/20 Discontinu ed(Therapy completed) Active Problems Problem Noted Date Diagnosed Date Hypertension 07/23/2025 Assessment & Plan (07/23/2025 8:47 AM EST): Patient has a blood pressure cuff which seems to be well calibrated. Advised her to take blood pressure measurements at home 2 hours after medications when she is calm and not under acute stress/anxiety. Of note she does have several readings from her BP log at home that reveal blood pressure is well-controlled. We are going to have her take periodic blood pressures over the next 2 weeks, when she is calm, sitting, and will report these values to us. At that point in time we can decide if it is appropriate to start the patient on a new medication like amlodipine or spironolactone. Advised the patient to adhere to a healthy cardiac diet. To stay active and exercise. Chest pain 07/08/2024 Assessment & Plan (07/23/2025 8:46 AM EST): Patient reports intermittent chest discomfort when she is under a lot of stress, when her blood pressure readings are high. This discomfort happens under her right armpit, and is very brief, and self relieves. Typically she says it lasts just a second or 2. This has been chronic has not worsened. She has a family history of heart failure. Will update an echocardiogram. She appears euvolemic on exam. Assessment & Plan (07/08/2024 4:42 PM EST): Agree that the symptoms are more likely stress related. However because of her family history and her concern as well as risk factors of hyperlipidemia, hypertension, I think it would be reasonable to do further restratification with a coronary calcium score. Patient is aware that this will likely be an [id number] cost and feels as though she can afford it. I will review results and determine need for future follow-up. In the meantime she would like to hold off on statin therapy which I think is totally reasonable. Orders: ECG 12 lead Pure hypercholesterolemia 07/08/2024 Assessment & Plan (07/23/2025 8:49 AM EST): Patient not utilizing a statin at this time. History of low calcium score. Would like to update a lipid panel, will discuss this at next visit. She should adhere to a healthy cardiac diet. Assessment & Plan (07/08/2024 4:42 PM EST): See plan above. Encounters Date Type Department Care Team Description 07/28/2025 Telephone [facility] [address] [facility] [address] [place] [phone] Nikki Rawls MD 07/23/2025 8:10 AM EST Office Visit [facility] [address] [place] [phone] Emeka Escoto NP Chest pain, unspecified type (Primary Dx); Pure hypercholesterolemia ; Hypertension, unspecified type 07/22/2025 Telephone [facility] [address] [place] [phone] Emeka Escoto NP 07/19/[address] [place] [address] Ciarra Tim NP 06/27/2025 Telephone [facility] [address] [place] [phone] Kadi Palacios NP 06/08/2025 10:50 AM EDT - 06/08/2025 11:59 PM EDT Hospital Encounter [facility] Ultrasound [address] [place] [address] Overactive bladder Discharge Disposition: Home or Self [...] Sign Reading Time Taken Comments Blood Pressure 150/80 07/23/2025 8:05 AM EST Pulse 64 07/23/2025 8:05 AM EST Temperature - - Respiratory Rate - - Oxygen Saturation 94% 07/23/2025 8:05 AM EST Inhaled Oxygen Concentration - - Weight 68.5 kg (151 lb) 07/23/2025 8:05 AM EST Height 162.6 cm (5' 4 ) 07/23/2025 8:05 AM EST Body Mass Index 25.92 07/23/2025 8:05 AM EST Plan of Treatment Upcoming Encounters Date Type Department Care Team (Late st Contact Info) Description 10/07/2025 8:00 AM EST Ancillary Procedure [facility] [address] [facility] Juan Manuel [address] [place] [address] Health Maintenance Due Date Last Done Comments Drug Screen 1950 Non-Opioid Controlled Substance Agreement 1950 Diabetes: Annual Foot Exam 1961 Diabetes: Annual [...] Procedure Name Priority Date/Time Associated Diagnosis Comments ECG 12-LEAD Routine 07/23/2025 8:49 AM EST Chest pain, unspecified type US RETROPERITONEAL COMPLETE Routine 06/08/2025 12:02 PM EDT Overactive bladder MG MAMMO DIGITAL SCREENING W SURESH BILAT Routine 12/17/2024 4:06 PM EDT Encounter for screening mammogram for breast cancer MOHAMUD DEXA AXIAL SKELETON Routine 04/12/20 7:46 AM EDT Encounter for screening for osteoporosis from Last 3 Months or Most Recently Relevant to Health Maintenance Results * ECG 12 lead (07/23/2025 8:49 AM EST) 07/23/2025 8:22 AM EST us Emeka Escoto NP ECG ORDERABLES Final Result GEMUSE * US Retroperitoneal Complete (06/08/2025 12:02 PM EDT) Anatomical Region Laterality Modality Body Ultrasound 06/12/2025 5:05 PM EDT Impressions 06/12/2025 5:05 PM EDT NO HYDRONEPHROSIS. -------- FINAL REPORT -------- Dictated By: Aleksander Lopez Dictated Date: 06/12/2025 17:05 ET Assigned Physician: Aleksander Lopez Reviewed and Electronically Signed By: Aleksander Lopez Signed Date: 06/12/2025 17:05 ET Workstation ID: [id number] Transcribed By: Self Edit Transcribed Date: 06/12/2025 [...] Signed Date: 06/12/2025 17:05 ET Workstation ID: [id number] Transcribed By: Self Edit Transcribed Date: 06/12/2025 [...] Mammo Location: [facility], [address] [place] [address], [id number], . -------- FINAL REPORT -------- Dictated By: Peggy Reddy Dictated Date: 12/18/2024 07:51 ET Assigned Physician: Peggy Reddy Reviewed and Electronically Signed By: Peggy Reddy Signed Date: 12/18/2024 07:55 ET Workstation ID: [id number] Transcribed By: Self Edit Transcribed Date: 12/18/2024 [...] Mammo Location: [facility], [address] [place] [address], [address], . -------- FINAL REPORT -------- Dictated By: Peggy Reddy Dictated Date: 12/18/2024 07:51 ET Assigned Physician: Peggy Reddy Reviewed and Electronically Signed By: Peggy Reddy Signed Date: 12/18/2024 07:55 ET Workstation ID: [id number] Transcribed By: Self Edit Transcribed Date: 12/18/2024 07:51 ET us Self Referral Sppl IMG BI PROCEDURES Final Resul t * MOHAMUD DEXA AXIAL SKELETON (04/12/2023 7:46 AM EDT) Anatomical Region Laterality Modality Mammography 04/11/2023 3:03 PM EDT Narrative 04/12/2023 7:46 AM EDT [facility] Diagnostic Imaging Department [address] [place] [address] Patient: ADANGELY YARA /Age/Sex: 1950 72 - F Unit#: [id number] [facility] Ordering Physician: MAREN UREÑA MD [facility] Dexa Axial Skeleton - 04/11/231532 [...] probability of hip fracture of 2.2%. Code 31690 Dictating Physician: GWENDOLYN BAHENA MD Electronically Signed by: GWENDOLYN BAHENA MD Dic Date/Time: 04/12/2345 Sign date/Time: 04/12/23745 Procedure Note Gwendolyn Bahena MD - 09/26/2023 [facility] Diagnostic Imaging Department [address] [place], [place] [id number] Patient: ADANGELYIRIS Unger/Age/Sex: 1950 - 72 - F Unit#: [id number] Location/Status: SPDIMA/REG CLI Mnemonic[facility] Ordering Physician: MAREN UREÑA MD Mohamud Dexa [...] density of the femurs bilaterally is 0.874 gm/rf3bgews is 87% of that of young normals [...] probability of hip fracture of 2.2%. Code 80469 Dictating Physician: GWENDOLYN BAHENA MD Electronically Signed by: GWENDOLYN BAHENA MD Dic Date/Time: 04/12/23 0745 Sign date/Time: 04/12/2346 Maren Ureña MD IMG BI PROCEDURES Final Result from Last 3 Months or Most Recently Relevant to Health Maintenance Insurance [employer] MEDICARE Care Teams Radio Tower Technician Relationship Specialty Start Date End Date Rolanda Thakur MD [address] [place], [place] PCP - General 11/03/23
--- OUTSIDE RECORDS SUMMARY | 2025-08-11 10:32 | XMS_ITS | Encounter Summary ---
Author Organization [employer] Address [address] [place] [address] Care Team Providers Care Philatelic Consultant Name Role Phone Rolanda Thakur MD Primary Care Provider +1- [phone] Reason for Visit * Reason Comments Med Refill Encounter Details Date Type Department Care Team ([facility] Contact Info) Description 08/10/2025 Refill [facility] PEDS [address] [place] [address] Rolanda Thakur MD [address] [place] [address] Panic attack; Anxiety Social History Tobacco Use [...] Upcoming Encounters Date Type Department Care Team ([facility] st Contact Info) Description 09/12/2025 3:15 PM EST Office Visit [facility] [address] [place] [address] Rolanda Thakur MD [address] [place] [address] documented as of this encounter Goals Goal [...] Plan Weekly blood pressure task No Huong Heredai RN Weekly blood pressure task Care Plan [...] Weekly blood pressure task No Jesi Boyd EXTRUDER OPERATOR HELPER Patient has chronic kidney disease Care Plan Patient has chronic kidney disease No Pati Boydfer, EXTRUDER OPERATOR HELPER Patient has chronic kidney disease Care Plan Patient has chronic kidney disease No Elena Boydnifer, EXTRUDER OPERATOR HELPER Patient has chronic kidney disease Care Plan Patient has chronic kidney disease No Jesi Boyd, EXTRUDER OPERATOR HELPER Patient has diabetic neuropathy Care Plan Patient has diabetic neuropathy No Pati Boydfer, EXTRUDER OPERATOR HELPER Patient has diabetic neuropathy Care Plan Patient has diabetic neuropathy No Jesi Boyd, EXTRUDER OPERATOR HELPER Patient has diabetic neuropathy Care Plan Patient has diabetic neuropathy No Jesi Boyd EXTRUDER OPERATOR HELPER Weekly blood pressure task Care Plan Weekly blood pressure task No Oliver, Jesi, EXTRUDER OPERATOR HELPER Weekly blood pressure task Care Plan Weekly blood pressure task No Oliver, Jesi, EXTRUDER OPERATOR HELPER Weekly blood pressure task Care Plan Weekly blood pressure task No Oliver, Jesi, EXTRUDER OPERATOR HELPER Patient has chronic kidney disease Care Plan Patient has chronic kidney disease No Oliver, Jesi, EXTRUDER OPERATOR HELPER Patient has chronic kidney disease Care Plan Patient has chronic kidney disease No Oliver, Jesi, EXTRUDER OPERATOR HELPER Patient has chronic kidney disease Care Plan Patient has chronic kidney disease No Oliver Jesi, EXTRUDER OPERATOR HELPER Patient has diabetic neuropathy Care Plan Patient has diabetic neuropathy No Oliver, Jesi, EXTRUDER OPERATOR HELPER Patient has diabetic neuropathy Care Plan Patient has diabetic neuropathy No Oliver, Jesi, EXTRUDER OPERATOR HELPER Patient has diabetic neuropathy Care Plan Patient has diabetic neuropathy No Oliver Jesi, EXTRUDER OPERATOR HELPER Weekly blood pressure task Care Plan Weekly [...] Plan Patient has diabetic neuropathy No Huong Herdeia RN Patient has diabetic neuropathy Care Plan [...] Care Plan Patient has diabetic neuropathy No WuDevora quezadaas Patient has diabetic neuropathy Care Plan Patient has diabetic neuropathy No WuDevora quezadaas Patient has diabetic neuropathy Care Plan Patient has diabetic neuropathy No WuUday quezada Weekly blood pressure task Care Plan Weekly blood pressure task No Wu, Uday Weekly blood pressure task Care Plan Weekly blood pressure task No Wu, Uday Weekly blood pressure task Care Plan Weekly blood pressure task No Wu Uday Patient has chronic kidney disease Care [...] Plan Patient has chronic kidney disease No aJcqueline Laurent [place] Patient has chronic kidney disease [...] documented as of this encounter Care Teams Philatelic Consultant Relationship Specialty Start Date End Date Rolanda Thakur MD [address] [place] [address] PCP - General Internal Medicine 09/19/22 documented as of this encounter
--- OUTSIDE RECORDS SUMMARY | 2025-08-11 10:32 | XMS_ITS | Encounter Summary ---
Author Organization [employer] Address [address] [place] [address] Care Team Providers Care Director Human Services Name Role Phone Rolanda Thakur MD Primary Care Provider +1- [phone] Encounter Details Date Type Department Care Team (Late Contact Info) Description 05/16/2023 Orders Only [facility] [address] [place], [place] [phone] Rolanda Thakur MD [address] [place] [address] Bilateral leg paresthesia (Primary Dx); Anxiety; Diabetic polyneuropathy associated with type 2 diabetes mellitus ([facility]) Social History Tobacco Use [...] Department Care Team (Late Contact Info) Description 09/12/2025 3:15 PM EST Office Visit [facility] MED & [facility]EDS [address] [place], [place] [phone] Rolanda Thakur MD [address] [place], [place] [phone] Scheduled Orders Name Type Priority Associated Diagnoses [...] * Vitamin B6 (10/10/2023 12:50 PM EST) [facility] Signature Vitamin B6 16.0 2.1 - 21.7 ng/mL [facility] Comment:Vitamin supplementat ion within 24 hours prior toblood draw may affect the accuracy of the results.This test was developed and its analytical performancecharacteristics have been determined by [employer] [place], [place]. It hasnot been cleared or approved by the U.S. Food and DrugAdministration. This assay has been validated pursuantto the CLIA regulations and is used for clinicalpurposes.THIS TEST WAS PERFORMED AT:[employer]/[id number] [place] [id number] PEDERSEN MD,PHD Blood Venous blood specimen / Unknown 10/10/2023 12:50 PM EST 10/10/2023 2:41 PM EST Rolanda Thakur MD LAB BLOOD ORDERABLES Final Result Performing Organization Address City/[facility] Co de Phone Number [facility] [address] [place] [phone] * (ABNORMAL) Vitamin B12 (10/10/2023 12:50 PM EST) Pathologist [facility] Vitamin B12 1,388(H) 200 - 900 pg/mL [facility] Comment:NORMAL 200-900 PG/ML INDETERMINATE 160-199 PG/ML DEFICIENT < 160 PG/ML Blood Venous blood specimen / Unknown 10/10/2023 12:50 PM EST 10/10/2023 2:41 PM EST us Rolanda Thakur MD LAB BLOOD ORDERABLES Final Result Performing Organization Address [facility] de Phone Number [facility] [address] [place] [phone] * TSH W/Reflex to FT4 (10/10/2023 12:50 PM EST) Pathologist [facility] TSH reflex Free T4 0.35 0.32 - 4.0 uIU/mL [facility] Blood 10/10/2023 12:5 0 PM EST 10/10/2023 2:41 PM EST Rolanda Thakur MD LAB BLOOD ORDERABLES Final Result Performing Organization Address [facility] de Phone Number [facility] [address] [place] [phone] * (ABNORMAL) CBC auto differential (10/10/2023 12:50 PM EST) Pathologist [facility] White Blood Count 8.0 4.8 - 10.8 X10*3/uL [facility] Red Blood Count 4.19(L) 4.20 - 5.50 X10*6/uL [facility] Hemoglobin 12.3 12.0 - 16.0 g/dl [facility] Hematocrit 36.6(L) 37.0 - 47.0 % [facility] Mean Corpuscular Volume 87.4 80.0 - 98.0 fL [facility] Mean Corpuscular Hemoglobin 29.4 27.0 - 33.0 pg [facility] Mean Corpuscular HGB Conc 33.6 31.0 - 35.0 g/dl [facility] Red Cell Distribution Width 12.8 11.0 - 16.0 % [facility] Platelet Count 252 160 - 400 X10*3/uL [facility] Mean Platelet Volume 9.5 9.4 - 12.3 fL [facility] Neutrophils Percent Auto 55.5 45 - 73 % [facility] Imm Gran Pct Auto 0.4 0.0 - 0.4 % [facility] Lymphocytes Percent Auto 31.3 20 - 40 % [facility] Monocytes Percent Auto 6.0 2 - 11 % [facility] Eosinophils Percent Auto 5.9(H) 0 - 4 % [facility] Basophils Percent Auto 0.9 0 - 2 % [facility] NRBC Pct Auto 0.0 0.0 - 0.2 /100WBC [facility] Neutrophils Absolute Auto 4.5 2.0 - 8.3 x10*3/uL [facility] Imm Gran Abs Auto 0.03 0.00 - 0.03 X10*3/uL [facility] Lymphocytes Absolute Auto 2.5 1.2 - 4.9 X10*3/uL [facility] Monocytes Absolute Auto 0.5 0.1 - 1.2 X10*3/uL [facility] Eosinophils Absolute Auto 0.5(H) 0.0 - 0.4 X10*3/uL [facility] Basophils Absolute Auto 0.1 0.0 - 0.2 X10*3/uL [facility] NRBC Abs Auto 0.000 0.0 - 0.012 X10*3/uL [facility] Blood Venous blood specimen / Unknown 10/10/2023 12:50 PM EST 10/10/2023 2:41 PM EST us Rolanda Thakur MD LAB BLOOD ORDERABLES Final Result [facility] [address] [place] [phone] documented in this encounter Visit Diagnoses Diagnosis Bilateral leg paresthesia- Primary Disturbance of skin sensation Anxiety Anxiety state, unspecified Diabetic polyneuropathy associated with type 2 diabetes mellitus (HCC) documented in this encounter Care Teams Director Human Services Relationship Specialty Start Date End Date Rolanda Thakur MD [address] [place] [address] PCP - General Internal Medicine 09/19/22 documented as of this encounter
--- OUTSIDE RECORDS SUMMARY | 2025-08-11 10:32 | XMS_ITS | Encounter Summary ---
Author Organization [employer] Address [address] [place] [address] Care Team Providers Care Psychotherapist Counselor Name Role Phone Rolanda Thakur MD Primary Care Provider +1- [phone] Reason for Visit * Reason Comments Med Refill Encounter Details Date Type Department Care Team ([facility] st Contact Info) Description 03/02/2025 Refill [facility] MED [facility] PEDS [address] [place], [place] [phone] Rolanda Thakur MD [address] [place] [address] Diabetic polyneuropathy associated with type 2 diabetes [...] Description 09/12/2025 3:15 PM EST Office Visit [facility] MED & PEDS [address] [place] [address] Rolanda Thakur MD [address] [place] [address] documented as of this encounter Visit Diagnoses Diagnosis Diabetic polyneuropathy associated with type 2 diabetes mellitus (HCC) documented in this encounter Additional Health Concerns Assessment Noted Time PHQ-9 Depression Total Score: 2 05/13/20 24 9:24 AM EDT documented as of this encounter Care Teams Psychotherapist Counselor Relationship Specialty Start Date End Date Rolanda Thakur MD [address] [place] [address] PCP - General Internal Medicine 09/19/22 documented as of this encounter
--- OUTSIDE RECORDS SUMMARY | 2025-08-11 10:32 | XMS_ITS | Encounter Summary ---
Author Organization [employer] Address [address] [place] [address] Care Team Providers Care Manager Administration Name Role Phone Rolanda Thakur MD Primary Care Provider +1- [phone] Reason for Visit * Reason Onset Date Comments Med Refill 04/16/2025 Encounter Details Date Type Department Care Team ([facility] st Contact Info) Description 04/16/2025 Refill [facility] MED & [facility]EDS [address] [place] [address] Rolanda Thakur MD [address] [place] [address] Acquired hypothyroidism Social History Tobacco Use Types [...] [facility] [address] [place] [address] Rolanda Thakur MD [address] [place] [address] documented as of this encounter Visit Diagnoses Diagnosis Acquired hypothyroidism Unspecified hypothyroidism documented in this encounter Additional Health Concerns Assessment Noted Time PHQ-9 Depression Total Score: 2 05/13/20 24 9:24 AM EDT documented as of this encounter Care Teams Manager Administration Relationship Specialty Start Date End Date Rolanda Thakur MD [address] [place] [address] PCP - General Internal Medicine 09/19/22 documented as of this encounter
--- OUTSIDE RECORDS SUMMARY | 2025-08-11 10:32 | XMS_ITS | Encounter Summary ---
Author Organization [employer] Address [address] [place] [address] 7 [place] [address] Care Team Providers Care Loan Counselor Name Role Phone Rolanda Thakur MD Primary Care Provider +1- [phone] Encounter Details Date Type Department Care Team ([facility] st Contact Info) Description 03/06/2025 Orders Only [facility] MED & PEDS [address] [place], [place] [phone] Rolanda Thakur MD [address] [place] [address] Type 2 diabetes mellitus without complication, without long-term current use of insulin ([facility]) (Primary Dx) Social History Tobacco Use [...] 09/12/2025 3:15 PM EST Office Visit [facility] PED[facility] [address] [place] [address] Rolanda Thakur MD [address] [place] [address] documented as of this encounter Visit Diagnoses Diagnosis Type 2 diabetes mellitus without complication, without long-term current use of insulin (HCC)- Primary documented in this encounter Additional Health Concerns Assessment Noted Time PHQ-9 Depression Total Score: 2 05/13/20 24 9:24 AM EDT documented as of this encounter Care Teams Loan Counselor Relationship Specialty Start Date End Date Rolanda Thakur MD 505 [place] [address] PCP - General Internal Medicine 09/19/22 documented as of this encounter
--- OUTSIDE RECORDS SUMMARY | 2025-08-11 10:32 | XMS_ITS | Encounter Summary ---
Author Organization [employer] Address [address] [place] [address] 7 [place] [address] Care Team Providers Care Allergist/Pediatric Pulmonologist Name Role Phone Rolanda Thakur MD Primary Care Provider +1 [phone] Encounter Details Date Type Department Care Team ([facility] Contact Info) Description 04/18/2025 Orders Only [facility] MED [facility] PEDS [address] [place], [place] [phone] Migdalia Loza FNP [address] [place] [address] Acquired hypothyroidism (Primary Dx); UTI symptoms; Type 2 diabetes mellitus without complication, without long-term current use of insulin ([facility]) Social History Tobacco Use [...] ([facility] st Contact Info) Description 09/12/2025 3:15 PM EST Office Visit [facility] MED [facility] PEDS [address] [place] [address] Rolanda Thakur MD [address] [place] [address] documented as of this encounter Procedures Procedure [...] (04/18/2025 8:39 AM EDT) Color Urine Yellow [facility] Appearance Urine Clear [facility] PH 6.0 5.0 - 9.0 [facility] Glucose Urine UA Negative Negative mg/dL [facility] Urine Blood Negative Negative [facility] Specific [place] - Urine 1.010 1.005 - 1.025 [facility] Urine Protein Negative Neg-Trace mg/dL [facility] Urine Ketones Negative Negative mg/dL [facility] Nitrite Urine Negative Negative [facility] Leukocyte Esterase Urine Small (1+)(A) Negative [facility] RBC Urine 0-2 0 - 2 /HPF [facility] Urine WBC 0-5 0 - 5 /HPF [facility] Urine Squamous Epithelial Cell 0-2 0 - 2 /HPF [facility] Urine Bacteria None Seen None Seen [facility] Hyaline Casts, Urine 0-2 0 - 2 /LPF [facility] Urine 04/18/2025 8:39 AM EDT 04/18/2025 2:25 PM EDT Narrative [facility] - 04/18/2025 4:11 PM EDT [id number], Clean Catch [employer] [facility] URINE ORDERABLES Final Res ult Performing Organization Address [facility] Co de Phone Number [facility] [address] [place] [phone] * TSH W/Reflex to FT4 (04/18/2025 8:31 AM EDT) TSH reflex Free T4 1.59 0.32 - 4.0 uIU/mL [facility] Blood Venous blood specimen / Unknown 04/18/2025 8:31 AM EDT 04/18/2025 2:28 PM EDT [employer] [facility] BLOOD ORDERABLES Final Res ult Performing Organization Address [facility] Co de Phone Number [facility] [address] [place] [phone] * Culture, Urine, Routine (04/18/2025 12:00 AM EDT) Urine Urine specimen obtained by clean catch procedure / Unknown 04/18/2025 04/18/2025 Comment:[facility] - 04/20/2025 9:46 AM EDT Urine Culture Report Result Urine Culture > 100,000 cfu/ml Urine Culture Mixed bacterial hailey characteristic of Urine Culture urogenital contamination. Specimen Source: Urine clean catch Migdalia Loza [facility] MICROBIOLOGY - GENERAL ORD ERABLES Final Result [facility] [address] [place] [phone] documented in this encounter Visit Diagnoses Diagnosis Acquired hypothyroidism- Primary Unspecified hypothyroidism UTI symptoms Type 2 diabetes mellitus without complication, without long-term current use of insulin (HCC) documented in this encounter Additional Health Concerns Assessment Noted Time PHQ-9 Depression Total Score: 2 05/13/20 24 9:24 AM EDT documented as of this encounter Care Teams Allergist/Pediatric Pulmonologist Relationship Specialty Start Date End Date Rolanda Thakur MD [address] [address] PCP - General Internal Medicine 09/19/22 documented as of this encounter
--- OUTSIDE RECORDS SUMMARY | 2025-08-11 10:32 | XMS_ITS | Encounter Summary ---
Author Organization [employer] Address [address] [address] Care Team Providers Care Field Sales Executive Name Role Phone Rolanda Thakur MD Primary Care Provider +1- [phone] Reason for Visit * Reason Onset Date Comments Nurse Triage 04/17/2025 Encounter Details Date Type Department Care Team ([facility] st Contact Info) Description 04/17/2025 Telephone [facility] [address] [place] [address] Rolanda Thakur MD [address] [place], [place] [phone] Nurse Triage Social History Tobacco Use Types [...] to Angely Pineda to triage below at [phone]. Having urinary frequency and flankpain 10/28. Denies any pelvic pain, N/V, fever or pain. No dark color or odor. Pt states unable to come into office tomorrow due to working until 4:30pm. Pt wants PCP to place UA and cx order to be sent to [facility]. Pt advised will send request but also reminded that our [facility] is open on Monday 9a-1p and [...] [facility] [address] [place] [address] Rolanda Thakur MD [address] [place] [address] documented as of this encounter Visit Diagnoses Not on filedocumented in this encounter Additional Health Concerns Assessment Noted Time PHQ-9 Depression Total Score: 2 05/13/20 24 9:24 AM EDT documented as of this encounter Care Teams Field Sales Executive Relationship Specialty Start Date End Date Rolanda Thakur MD [address] [place] [address] PCP - General Internal Medicine 09/19/22 documented as of this encounter
--- OUTSIDE RECORDS SUMMARY | 2025-08-11 10:32 | XMS_ITS | Encounter Summary ---
Author Organization [employer] Address [address] [address] Care Team Providers Care Survey Research Center Director Name Role Phone Rolanda Thakur MD Primary Care Provider +1- [phone] Reason for Visit * Reason Onset Date Comments Call Back Request 10/31/2024 Encounter Details Date Type Department Care Team ([facility] st Contact Info) Description 10/31/2024 Telephone [facility] MED[facility]INE [address] [place] [address] oRlanda Thakur MD [address] [place], [place] [phone] Call Back Request Social History Tobacco Use [...] to DR. Castañeda. Please contact pt at [phone]. documented in this encounter Plan of Treatment Upcoming Encounters Date Type Department Care Team ([facility] st Contact Info) Description 09/12/2025 3:15 PM EST Office Visit [facility] MED & PEDS [address] [place] [address] Rolanda Thakur MD [address] [place] [address] documented as of this encounter Visit Diagnoses Not on filedocumented in this encounter Additional Health Concerns Assessment Noted Time PHQ-9 Depression Total Score: 2 05/13/20 24 9:24 AM EDT documented as of this encounter Care Teams Survey Research Center Director Relationship Specialty Start Date End Date Rolanda Thakur MD [address] [place] [address] PCP - General Internal Medicine 09/19/22 documented as of this encounter
--- OUTSIDE RECORDS SUMMARY | 2025-08-11 10:32 | XMS_ITS | Encounter Summary ---
Author Organization [employer] Address [address] [facility] 7 [place] [address] Care Team Providers Care Library Helper Name Role Phone Rolanda Thakur MD Primary Care Provider +1 [phone] Encounter Details Date Type Department Care Team ([facility] Contact Info) Description 02/05/2025 Orders Only [facility] MED & PEDS [address] [place] [address] Rolanda Thakur MD [address] [place] [address] Acquired hypothyroidism Social History Tobacco Use Types [...] ([facility] st Contact Info) Description 09/12/2025 3:15 PM EST Office Visit [facility] PEDS [address] [place] [address] Rolanda Thakur MD [address] [place] [address] documented as of this encounter Visit Diagnoses Diagnosis Acquired hypothyroidism Unspecified hypothyroidism documented in this encounter Additional Health Concerns Assessment Noted Time PHQ-9 Depression Total Score: 2 05/13/20 24 9:24 AM EDT documented as of this encounter Care Teams Library Helper Relationship Specialty Start Date End Date Rolanda Thakur MD [address] [place] [address] PCP - General Internal Medicine 09/19/22 documented as of this encounter
--- OUTSIDE RECORDS SUMMARY | 2025-08-11 10:32 | XMS_ITS | Encounter Summary ---
Author Organization [employer] Address [address] [address] Care Team Providers Care Pedal Assembler Name Role Phone Rolanda Thakur MD Primary Care Provider +1- [phone] Reason for Visit * Reason Onset Date Comments Referral 02/28/2025 Encounter Details Date Type Department Care Team ([facility] st Contact Info) Description 02/28/2025 Telephone [facility] MEDICINE [address] [place] [address] Rolanda Thakur MD [address] [place], [place] [phone] Referral Social History Tobacco Use Types Packs/Day [...] to change location of endocrinology referral: Address: [address] [place] [address] [place] [address] Facility Name: [facility] Type of Specialist: Endocrinology Provider: Dr. Aren Banerjee documented in this encounter Plan of Treatment Upcoming Encounters Date Type Department Care Team ([facility] st Contact Info) Description 09/12/2025 3:15 PM EST Office Visit [facility] MED & PEDS [address] [place] [address] Rolanda Thakur MD [address] [place] [address] documented as of this encounter Visit Diagnoses Not on filedocumented in this encounter Additional Health Concerns Assessment Noted Time PHQ-9 Depression Total Score: 2 05/13/20 24 9:24 AM EDT documented as of this encounter Care Teams Pedal Assembler Relationship Specialty Start Date End Date Rolanda Thakur MD [address] [place] [address] PCP - General Internal Medicine 09/19/22 documented as of this encounter
--- OUTSIDE RECORDS SUMMARY | 2025-08-11 10:32 | XMS_ITS | Encounter Summary ---
Author Organization [employer] Address [address] [facility] 7 [place] [address] Care Team Providers Care Hourly Manager Name Role Phone Rolanda Thakur MD Primary Care Provider +1 [phone] Encounter Details Date Type Department Care Team (Latest Contact Info) Description 08/08/2025 Travel Social History Tobacco Use Types Packs/Day [...] Description 09/12/2025 3:15 PM EST Office Visit [facility] CHC MED & PEDS [address] [place] [address] Rolanda Thakur MD [address] [place] [address] documented as of this encounter Goals Goal [...] Plan Weekly blood pressure task No OliverElenaJesi, CONCRETE PIPE PLANT SUPERVISOR Weekly blood pressure task Care Plan Weekly blood pressure task No Oliver Jesi, CONCRETE PIPE PLANT SUPERVISOR Weekly blood pressure task Care Plan Weekly blood pressure task No Oliver, Jesi, CONCRETE PIPE PLANT SUPERVISOR Patient has chronic kidney disease Care Plan Patient has chronic kidney disease No Oliver Jesi, CONCRETE PIPE PLANT SUPERVISOR Patient has chronic kidney disease Care Plan Patient has chronic kidney disease No Oliver Jesi, CONCRETE PIPE PLANT SUPERVISOR Patient has chronic kidney disease Care Plan Patient has chronic kidney disease No Oliver Jesi, CONCRETE PIPE PLANT SUPERVISOR Patient has diabetic neuropathy Care Plan Patient has diabetic neuropathy No Oliver Jesi, CONCRETE PIPE PLANT SUPERVISOR Patient has diabetic neuropathy Care Plan Patient has diabetic neuropathy No Oliver, Jesi, CONCRETE PIPE PLANT SUPERVISOR Patient has diabetic neuropathy Care Plan Patient has diabetic neuropathy No Oliver, Jesi, CONCRETE PIPE PLANT SUPERVISOR Weekly blood pressure task Care Plan Weekly blood pressure task No Oliver Ejsi, CONCRETE PIPE PLANT SUPERVISOR Weekly blood pressure task Care Plan Weekly blood pressure task No Oliver, Jesi, CONCRETE PIPE PLANT SUPERVISOR Weekly blood pressure task Care Plan Weekly blood pressure task No Oliver, Jesi, CONCRETE PIPE PLANT SUPERVISOR Patient has chronic kidney disease Care Plan Patient has chronic kidney disease No Oliver, Jesi, CONCRETE PIPE PLANT SUPERVISOR Patient has chronic kidney disease Care Plan Patient has chronic kidney disease No Oliver, Jsei, CONCRETE PIPE PLANT SUPERVISOR Patient has chronic kidney disease Care Plan Patient has chronic kidney disease No Oliver Jesi, CONCRETE PIPE PLANT SUPERVISOR Patient has diabetic neuropathy Care Plan Patient has diabetic neuropathy No OliverElena crockernifer, CONCRETE PIPE PLANT SUPERVISOR Patient has diabetic neuropathy Care Plan Patient has diabetic neuropathy No OliverPati crockerfer, CONCRETE PIPE PLANT SUPERVISOR Patient has diabetic neuropathy Care Plan Patient has diabetic neuropathy No OliverElena crockernifer, CONCRETE PIPE PLANT SUPERVISOR Weekly blood pressure task Care Plan Weekly [...] Plan Patient has chronic kidney disease No Kaleb Brantkurtis Patient has chronic kidney disease Care Plan Patient has chronic kidney disease No Kaleb Brantkurtis Patient has chronic kidney disease Care Plan [...] documented as of this encounter Care Teams Hourly Manager Relationship Specialty Start Date End Date Rolanda Thakur MD [address] [place] [address] PCP - General Internal Medicine 09/19/22 documented as of this encounter
--- OUTSIDE RECORDS SUMMARY | 2025-08-11 10:32 | XMS_ITS | Encounter Summary ---
Author Organization [employer] Address [address] [place] [address] Care Team Providers Care Railroad Operator Name Role Phone Rolanda Thakur MD Primary Care Provider [phone]- [phone] Encounter Details Date Type Department Care Team ([facility] st Contact Info) Description 05/01/2023 Orders Only [facility] CHC MED & PEDS [address] [place] [address] Rolanda Thakur MD [address] [place] [address] Diabetic polyneuropathy associated with type 2 diabetes [...] Description 09/12/2025 3:15 PM EST Office Visit [facility] CHC MED & PEDS [address] [place] [address] Rolanda Thakur MD [address] [place] [address] documented as of this encounter Procedures Procedure [...] AM EDT) Hemoglobin A1c 6.1(H) <6.0 % [facility] Comment:Hemoglobin A1C Refer ence Range Adults: 4.8 - 6.0 % Non diabetic: < 6.0 % Goal: < 7.0 %Additional Action Suggested: > 8.0 %Note: Hemoglobin A1c results are invalid for patients with abnormal amounts of HbF. Blood transfusions may impact the HbA1c concentration in the patient sample. Estimated Average Glucose 128 mg/dL [facility] Comment:eAG = Estimated ave rage glucose which is %A1C expressed asaverage glucose, using the formula of the [id number]-[id number] Glucose study (ADAG), Diabetes Care, Vol.31,#8,Mar. 2007 Blood Venous blood specimen / Unknown 05/08/2023 11:04 AM EDT 05/08/2023 1:46 PM EDT us Rolanda Thakur MD LAB BLOOD ORDERABLES Final Result Performing Organization Address City/[facility] Co de Phone Number [facility] [address] [place] [phone] * Vitamin D, 25-Hydroxy, Total, Immunoassay (05/08/2023 11:04 AM EDT) Vitamin D 25-OH Total 84.6 >30 ng/mL [facility] Comment:Health Based Referen ce Values*< 20 ng/mL [id number] ng/mL Insufficient> 30 ng/mL Sufficient*Arabella MCALLISTER. N [...] Thakur MD LAB BLOOD ORDERABLES Final Result [facility] [address] [place] [phone] [phone] * Hepatic Function Panel (05/08/2023 11:04 AM EDT) Bilirubin, Total 0.5 0.0 - 1.0 mg/dL [facility] Bilirubin, Direct 0.2 0.0 - 0.5 mg/dL [facility] Aspartate Amino Transferase 22 5 - 31 U/L [facility] Alanine Aminotransferase 18 0 - 31 U/L [facility] Total Protein 7.1 6.5 - 8.0 g/dL [facility] Albumin Level 4.4 3.5 - 5.0 g/dL [facility] Alkaline Phosphatase 70 39 - 117 U/L [facility] Blood Venous blood specimen / Unknown 05/08/2023 11:04 AM EDT 05/08/2023 1:47 PM EDT us Rolanda Thakur MD LAB BLOOD ORDERABLES Final Result Performing Organization Address [facility] Co de Phone Number [facility] [address] [place] [phone] * (ABNORMAL) Lipid Panel, Standard (05/08/2023 11:04 AM EDT) Triglycerides 110 <150 mg/dL [facility] Comment:Desirable Triglyceri de: less than 150 mg/dLBorderline High Triglyceride 150-199 mg/dLHigh Triglyceride: 200-499 mg/dLVery High Triglyceride: greater than or equal to 5OO mg/dL Cholesterol 198 <200 mg/dL [facility] Comment:Desirable Cholestero l: less than 200 mg/dLBorderline High Cholesterol: 200-239 mg/dLHigh Cholesterol: greater than 239 mg/dL LDL Cholesterol Calculated 121(H) <100 mg/dL [facility] Comment:Desirable LDL: less than 100 mg/dLNear Optimal/Above Optimal LDL: 110- 129 mg/dLBorderline High LDL: 130-159 mg/dLHigh LDL: 160-189 mg/dLVery High LDL: greater than or equal to 190 mg/dL HDL Cholesterol 55 >40 mg/dL [facility] Comment:Desirable HDL: great er than 40 mg/dL Note: This HDL assay may give artificially low results in patients with liver disease. Blood Venous blood specimen / Unknown 05/08/2023 11:04 AM EDT 05/08/2023 1:47 PM EDT us Rolanda Thakur MD LAB BLOOD ORDERABLES Final Result Performing Organization Address [facility]/ZIP Co de Phone Number [facility] [address] [place] [phone] * TSH W/Reflex to FT4 (05/08/2023 11:04 AM EDT) TSH reflex Free T4 0.53 0.32 - 4.0 uIU/mL [facility] Blood 05/08/2023 11:0 4 AM EDT 05/08/2023 1:47 PM EDT us Rolanda Thakur MD LAB BLOOD ORDERABLES Final Result Performing Organization Address [facility] Co de Phone Number [facility] [address] [place] [phone] * (ABNORMAL) Basic Metabolic Panel (05/08/2023 11:04 AM EDT) Sodium 137 135 - 145 mmol/L [facility] Potassium 4.4 3.3 - 5.1 mmol/L [facility] Chloride 108 96 - 108 mmol/L [facility] Carbon Dioxide 24 22 - 29 mmol/L [facility] Anion Gap 9(L) 12 - 20 [facility] Urea Nitrogen (BUN) 14 9 - 16 mg/dL [facility] Creatinine, Serum 1.03 0.5 - 1.4 mg/dL [facility] Estimated Glomerular Filt Rate 53 [facility] Comment:NOTE: For -Am erican individuals, multiply the result by 1.210.Chronic Kidney Disease: Estimated GFR < 60 mL/min/1.64o5Axzztk Kidney Disease: Estimated GFR < 15 mL/min/1.73m2 Glucose 208(H) 60 - 115 mg/dL [facility] Calcium 10.1 8.4 - 10.2 mg/dL [facility] Blood Venous blood specimen / Unknown 05/08/2023 11:04 AM EDT 05/08/2023 1:47 PM EDT us Rolanda Thakur MD LAB BLOOD ORDERABLES Final Result [facility] [address] [place] [phone] * (ABNORMAL) CBC auto differential (05/08/2023 11:04 AM EDT) White Blood Count 8.6 4.8 - 10.8 X10*3/uL [facility] Red Blood Count 4.27 4.20 - 5.50 X10*6/uL [facility] Hemoglobin 12.6 12.0 - 16.0 g/dl [facility] Hematocrit 37.9 37.0 - 47.0 % [facility] Mean Corpuscular Volume 88.8 80.0 - 98.0 fL [facility] Mean Corpuscular Hemoglobin 29.5 27.0 - 33.0 pg [facility] Mean Corpuscular HGB Conc 33.2 31.0 - 35.0 g/dl [facility] Red Cell Distribution Width 13.0 11.0 - 16.0 % [facility] Platelet Count 266 160 - 400 X10*3/uL [facility] Mean Platelet Volume 9.5 9.4 - 12.3 fL [facility] Neutrophils Percent Auto 50.3 45 - 73 % [facility] Imm Gran Pct Auto 0.3 0.0 - 0.4 % [facility] Lymphocytes Percent Auto 33.4 20 - 40 % [facility] Monocytes Percent Auto 7.0 2 - 11 % [facility] Eosinophils Percent Auto 7.8(H) 0 - 4 % [facility] Basophils Percent Auto 1.2 0 - 2 % [facility] NRBC Pct Auto 0.0 0.0 - 0.2 /100WBC [facility] Neutrophils Absolute Auto 4.3 2.0 - 8.3 x10*3/uL [facility] Imm Gran Abs Auto 0.03 0.00 - 0.03 X10*3/uL [facility] Lymphocytes Absolute Auto 2.9 1.2 - 4.9 X10*3/uL [facility] Monocytes Absolute Auto 0.6 0.1 - 1.2 X10*3/uL [facility] Eosinophils Absolute Auto 0.7(H) 0.0 - 0.4 X10*3/uL [facility] Basophils Absolute Auto 0.1 0.0 - 0.2 X10*3/uL [facility] NRBC Abs Auto 0.000 0.0 - 0.012 X10*3/uL [facility] Blood Venous blood specimen / Unknown 05/08/2023 11:04 AM EDT 05/08/2023 1:46 PM EDT Rolanda Thakur MD LAB BLOOD ORDERABLES Final Result Performing Organization Address City/State/[facility] Co de Phone Number [facility] [address] [place] [phone] documented in this encounter Visit Diagnoses Diagnosis Diabetic polyneuropathy associated with type 2 diabetes mellitus (HCC)- Primary documented in this encounter Care Teams Railroad Operator Relationship Specialty Start Date End Date Rolanda Thakur MD [address] [place] [address] PCP - General Internal Medicine 09/19/22 documented as of this encounter
--- OUTSIDE RECORDS SUMMARY | 2025-08-11 10:32 | XMS_ITS | Encounter Summary ---
Author Organization [employer] Address [address] [place] [address] Care Team Providers Care Risk Adjustment Specialist Name Role Phone Rolanda Thakur MD Primary Care Provider [phone]- [phone] Reason for Referral * Consultation (Routine) - Canceled Specialty Diagnoses / Procedures Referred By Contac t Referred To Contact Pharmacy Diagnoses Type 2 diabetes mellitus without complication, without long-term current use of insulin (HCC) Rolanda Thakur MD [address] [place] [address] Phone: tel: fax: Referral ID Status Reason Start Date Expiration Date V isits Requested Visits Authorized [id number] Canceled Consult and Treat 04/14/2025 04/14/2026 6 6 Encounter Details Date Type Department Care Team (Late st Contact Info) Description 04/14/2025 Orders Only [facility] CHC MED & PEDS [address] [place] [address] Rolanda Thakur MD [address] [place] [address] Type 2 diabetes mellitus without complication, without [...] Upcoming Encounters Date Type Department Care Team ([facility] st Contact Info) Description 09/12/2025 3:15 PM EST Office Visit [facility] CHC MED & PEDS [address] [place] [address] Rolanda Thakur MD [address] [place] [address] Scheduled Orders Name Type Priority Associated Diagnoses Orde r Schedule Urinalysis, Complete, with Reflex to Culture Lab Routine Type 2 diabetes mellitus without complication, without long-term current use of insulin ([facility]) Recent urinary tract infection Expected: 04/18/2025 (Approximate), Expires: 04/18/2026 Scheduled Referrals Name Type Priority Associated Diagnoses Orde r Schedule Referral to Pharmacy CD Outpatient Referral Routine Type 2 diabetes mellitus without complication, without long-term current use of insulin ([facility]) Ordered: 04/14/2025 documented as of this encounter Procedures Procedure Name Priority Date/Time Associated Diagnosis Comments URINALYSIS, COMPLETE, WITH REFLEX TO CULTURE Routine 04/30/2025 8:37 AM EDT Type 2 diabetes mellitus without complication, without long-term current use of insulin ([facility]) Recent urinary tract infection documented in this encounter Results * (ABNORMAL) Urinalysis, Complete, with Reflex to Culture (04/30/2025 8:37 AM EDT) Color Urine Dark Yellow [facility] Appearance Urine Clear [facility] PH 6.5 5.0 - 9.0 [facility] Glucose Urine UA Negative Negative mg/dL [facility] Urine Blood Negative Negative [facility] Specific [place] - Urine 1.010 1.005 - 1.025 [facility] Urine Protein Negative Neg-Trace mg/dL [facility] Urine Ketones Negative Negative mg/dL [facility] Nitrite Urine Negative Negative [facility] Leukocyte Esterase Urine Small (1+)(A) Negative [facility] RBC Urine 0-2 0 - 2 /HPF [facility] Urine WBC 0-5 0 - 5 /HPF [facility] Urine Squamous Epithelial Cell 0-2 0 - 2 /HPF [facility] Urine Bacteria None Seen None Seen [facility] Hyaline Casts, Urine 0-2 0 - 2 /LPF [facility] Urine 04/30/2025 8:37 AM EDT 04/30/2025 1:12 PM EDT Narrative [facility] - 04/30/2025 2:16 PM EDT Urine, Clean Catch Rolanda Thakur MD LAB URINE ORDERABLES Final Result [facility] [address] [place] [phone] [phone] documented in this encounter Visit Diagnoses Diagnosis Type 2 diabetes mellitus without complication, without long-term current use of insulin (HCC)- Primary Recent urinary tract infection documented in this encounter Additional Health Concerns Assessment Noted Time PHQ-9 Depression Total Score: 2 05/13/20 24 9:24 AM EDT documented as of this encounter Care Teams Risk Adjustment Specialist Relationship Specialty Start Date End Date Rolanda Thakur MD [address] [place] [address] PCP - General Internal Medicine 09/19/22 documented as of this encounter
--- OUTSIDE RECORDS SUMMARY | 2025-08-11 10:32 | XMS_ITS | Encounter Summary ---
Author Organization [employer] Address [address] [place] [address] Care Team Providers Care Affiliate Manager Name Role Phone Rolanda Thakur MD Primary Care Provider [phone]- [phone] Reason for Visit * Reason Onset Date Comments Med Refill 02/17/2025 Encounter Details Date Type Department Care Team ([facility] st Contact Info) Description 02/17/2025 Refill [facility] CHC MED & PEDS [address] [place] [address] Rolanda Thakur MD [address] [place] [address] Type 2 diabetes mellitus without complication, without [...] Description 09/12/2025 3:15 PM EST Office Visit [facility] CHC MED & PEDS [address] [place] [address] Rolanda Thakur MD [address] [place] [address] documented as of this encounter Visit Diagnoses Diagnosis Type 2 diabetes mellitus without complication, without long-term current use of insulin ([facility]) Panic attack Panic disorder without agoraphobia Anxiety Anxiety state, unspecified documented in this encounter Additional Health Concerns Assessment Noted Time PHQ-9 Depression Total Score: 2 05/13/20 24 9:24 AM EDT documented as of this encounter Care Teams Affiliate Manager Relationship Specialty Start Date End Date Rolanda Thakur MD [address] [place] [address] PCP - General Internal Medicine 09/19/22 documented as of this encounter
--- OUTSIDE RECORDS SUMMARY | 2025-08-11 10:32 | XMS_ITS | Encounter Summary ---
Author Organization [employer] Address [address] [place] [address] Care Team Providers Care Apparel Manager Name Role Phone Rolanda Thakur MD Primary Care Provider [phone] Reason for Visit * Reason Comments Med Refill Encounter Details Date Type Department Care Team ([facility] Contact Info) Description 01/05/2023 Refill [facility] MED & PEDS [address] [place] [address] Karoline Castañeda MD [address] [place] [address] Social History Tobacco Use Types Packs/Day Years [...] Upcoming Encounters Date Type Department Care Team ([facility] Contact Info) Description 09/12/2025 3:15 PM EST Office Visit [facility] MED & PEDS [address] [place] [address] Rolanda Thakur MD 505 [facility] [place] [address] documented as of this encounter Visit Diagnoses Not on filedocumented in this encounter Care Teams Apparel Manager Relationship Specialty Start Date End Date Rolanda Thakur MD 505 [facility] [place] [place] [address] PCP - General Internal Medicine 09/19/22 documented as of this encounter
--- OUTSIDE RECORDS SUMMARY | 2025-08-11 10:32 | XMS_ITS | Encounter Summary ---
Author Organization [employer] Address [address] [place] [address] Care Team Providers Care Passenger Relations Representative Name Role Phone Rolanda Thakur MD Primary Care Provider [phone]- [phone] Reason for Referral * Consultation (Routine) - Authorized Specialty Diagnoses / Procedures Referred By Contac t Referred To Contact Endocrinology Diagnoses Type 2 diabetes mellitus without complication, without long-term current use of insulin (HCC) Benign essential hypertension Rolanda Thakur MD [address] [place] [address] Phone: tel: fax: [facility] [address] , [address] [place] [address] Phone: tel: fax: Referral ID Status Reason Start Date Expiration Date Visits Requested Visits Authorized [id number] Authorized Specialty Services Required 11/07/2024 11/07/2025 1 1 Encounter Details Date Type Department Care Team (Late st Contact Info) Description 11/07/2024 Orders Only [facility] MEDICINE [address] [place] [address] Rolanda Thakur MD [address] [place] [address] Type 2 diabetes mellitus without complication, without [...] Upcoming Encounters Date Type Department Care Team ([facility] st Contact Info) Description 09/12/2025 3:15 PM EST Office Visit [facility] CHC MED & PEDS [address] [place] [address] Rolanda Thakur MD [address] [place] [address] Scheduled Referrals Name Type Priority Associated Diagnoses Orde r Schedule Referral to Endocrinology Outpatient Referral Routine Type 2 diabetes mellitus without complication, without long-term current use of insulin ([facility]) Benign essential hypertension Expected: 11/07/2024 (Approximate), Expires: 11/07/2025 documented as of this encounter Visit Diagnoses Diagnosis Type 2 diabetes mellitus without complication, without long-term current use of insulin ([facility])- Primary Benign essential hypertension Essential hypertension, benign documented in this encounter Additional Health Concerns Assessment Noted Time PHQ-9 Depression Total Score: 2 05/13/20 24 9:24 AM EDT documented as of this encounter Care Teams Passenger Relations Representative Relationship Specialty Start Date End Date Rolanda Thakur MD [address] [place] [address] PCP - General Internal Medicine 09/19/22 documented as of this encounter
--- OUTSIDE RECORDS SUMMARY | 2025-08-11 10:33 | XMS_ITS | Encounter Summary ---
Author Organization [email or web address] Address [address] [place] [address] Care Team Providers Care Loading Machine Tool Setter Name Role Phone Rolanda Thakur MD Primary Care Provider [phone]- [phone] Reason for Visit * Reason Onset Date Comments Med Refill 03/20/2025 Encounter Details Date Type Department Care Team ([facility] st Contact Info) Description 03/20/2025 Refill [facility] CHC MED & PEDS [address] [place] [address] Rolanda Thakur MD [address] [place] [address] Social History Tobacco Use Types Packs/Day Years [...] Description 09/12/2025 3:15 PM EST Office Visit [facility] CHC MED & PEDS [address] [place] [address] Rolanda Thakur MD [address] [place] [address] documented as of this encounter Visit Diagnoses Not on filedocumented in this encounter Additional Health Concerns Assessment Noted Time PHQ-9 Depression Total Score: 2 05/13/20 24 9:24 AM EDT documented as of this encounter Care Teams Loading Machine Tool Setter Relationship Specialty Start Date End Date Rolanda Thakur MD [address] [place] [address] PCP - General Internal Medicine 09/19/22 documented as of this encounter
--- OUTSIDE RECORDS SUMMARY | 2025-08-11 10:33 | XMS_ITS | Encounter Summary ---
Author Organization [employer] Address [address] [address] Care Team Providers Care Biomedical Equipment Support Specialist Name Role Phone Rolanda Thakur MD Primary Care Provider [phone]- [phone] Reason for Visit * Reason Onset Date Comments Call Back Request 11/27/2024 Encounter Details Date Type Department Care Team ([facility] st Contact Info) Description 11/27/2024 Telephone [facility] MEDICINE [address] [place] [address] Rolanda Thakur MD [address] [place], [place] [phone] Call Back Request Social History Tobacco Use [...] Description 09/12/2025 3:15 PM EST Office Visit [facility] MED & PEDS [address] [place] [address] Rolanda Thakur MD [address] [place] [address] documented as of this encounter Visit Diagnoses Not on filedocumented in this encounter Additional Health Concerns Assessment Noted Time PHQ-9 Depression Total Score: 2 05/13/20 24 9:24 AM EDT documented as of this encounter Care Teams Biomedical Equipment Support Specialist Relationship Specialty Start Date End Date Rolanda Thakur MD [address] [place] [address] PCP - General Internal Medicine 09/19/22 documented as of this encounter
--- OUTSIDE RECORDS SUMMARY | 2025-08-11 10:33 | XMS_ITS | Encounter Summary ---
Author Organization [employer] Address [address] [address] Care Team Providers Care Fuel Operator Name Role Phone Rolanda Thakur MD Primary Care Provider [phone]- [phone] Reason for Visit * Reason Onset Date Comments Med Refill 04/04/2024 Encounter Details Date Type Department Care Team (Late st Contact Info) Description 04/04/2024 Telephone [facility] MEDICINE [address] [place] [address] Rolanda Thakur MD [address] [place], [place] [phone] Med Refill Social History Tobacco Use Types [...] Description 09/12/2025 3:15 PM EST Office Visit [facility] MED & PEDS [address] [place] [address] Rolanda Thakur MD [address] [place] [address] documented as of this encounter Visit Diagnoses Diagnosis Anxiety- Primary Anxiety state, unspecified documented in this encounter Care Teams Fuel Operator Relationship Specialty Start Date End Date oRlanda Thakur MD [address] [place] [address] PCP - General Internal Medicine 09/19/22 documented as of this encounter
--- OUTSIDE RECORDS SUMMARY | 2025-08-11 10:33 | XMS_ITS | Clinical Summary ---
Author Organization [facility] Prior to 01/18/[address] [place] [address] Care Team Providers Care Straightener And Aligner Name Role Phone Rahel Hough MD Primary Care Provider [phone] Allergies Active Allergy Reactions Criticality Noted Date [...] mg by mouth daily. 0 09/09/2020 Active [place]-3 Fatty Acids (FISH OIL) 1000 MG CAPS [...] age to complete this topic Care Teams Straightener And Aligner Relationship Specialty Start Date End Date Rahel Hough MD [address] [facility] [place] [address] PCP - General Internal Medicine 11/20/20
--- OUTSIDE RECORDS SUMMARY | 2025-08-11 10:33 | XMS_ITS | Encounter Summary ---
Author Organization [employer] Address [address] [place] [address] Care Team Providers Care Digital Media Sales Consultant Name Role Phone Rolanda Thakur MD Primary Care Provider [phone]- [phone] Reason for Visit * Reason Onset Date Comments Med Refill 03/31/2025 Encounter Details Date Type Department Care Team ([facility] st Contact Info) Description 03/31/2025 Refill [facility] MED & PEDS [address] [place] [address] Rolanda Thakur MD 505 [place] [address] Panic attack; Anxiety Social History Tobacco Use [...] Description 09/12/2025 3:15 PM EST Office Visit [facility] MED & PEDS [address] [place] [address] Rolanda Thakur MD 505 [place] [address] documented as of this encounter Visit Diagnoses Diagnosis Panic attack Panic disorder without agoraphobia Anxiety Anxiety state, unspecified documented in this encounter Additional Health Concerns Assessment Noted Time PHQ-9 Depression Total Score: 2 05/13/20 24 9:24 AM EDT documented as of this encounter Care Teams Digital Media Sales Consultant Relationship Specialty Start Date End Date Rolanda Thakur MD 505 [place] [address] PCP - General Internal Medicine 09/19/22 documented as of this encounter
--- OUTSIDE RECORDS SUMMARY | 2025-08-11 10:33 | XMS_ITS | Encounter Summary ---
Author Organization [employer] Address [address] [place] [address] Care Team Providers Care Egg Buyer Name Role Phone Rolanda Thakur MD Primary Care Provider [phone]- [phone] Reason for Visit * Reason Onset Date Comments Med Refill 04/11/2025 Encounter Details Date Type Department Care Team ([facility] st Contact Info) Description 04/11/2025 Refill [facility] CHC MED & PEDS [address] [place] [address] Rolanda Thakur MD 505 [place] [address] Type 2 diabetes mellitus without complication, without long-term current use of insulin ([facility]) Social History Tobacco Use Types Packs/Day [...] Description 09/12/2025 3:15 PM EST Office Visit [facility] CHC MED & PEDS [address] [place] [address] Rolanda Thakur MD 505 [place] [address] documented as of this encounter Visit Diagnoses Diagnosis Type 2 diabetes mellitus without complication, without long-term current use of insulin (HCC) documented in this encounter Additional Health Concerns Assessment Noted Time PHQ-9 Depression Total Score: 2 05/13/20 24 9:24 AM EDT documented as of this encounter Care Teams Egg Buyer Relationship Specialty Start Date End Date Rolanda Thakur MD 505 [place] [address] PCP - General Internal Medicine 09/19/22 documented as of this encounter
--- OUTSIDE RECORDS SUMMARY | 2025-08-11 10:33 | XMS_ITS | Encounter Summary ---
Author Organization [employer] Address [address] [place] [address] Care Team Providers Care Transportation Security Officer Name Role Phone Rolanda Thakur MD Primary Care Provider [phone]- [phone] Reason for Visit * Reason Comments Med Refill Encounter Details Date Type Department Care Team (Late Contact Info) Description 05/20/2024 Refill [facility] CHC MED & PEDS [address] [place] [address] Rolanda Thakur MD 505 [place] [address] Diabetic polyneuropathy associated with type 2 diabetes mellitus ([facility]) Social History Tobacco Use Types [...] Description 09/12/2025 3:15 PM EST Office Visit [facility] CHC MED & PEDS [address] [place] [address] Rolanda Thakur MD 505 [place] [address] documented as of this encounter Visit Diagnoses Diagnosis Diabetic polyneuropathy associated with type 2 diabetes mellitus (HCC) documented in this encounter Additional Health Concerns Assessment Noted Time PHQ-9 Depression Total Score: 2 05/13/20 24 9:24 AM EDT documented as of this encounter Care Teams Transportation Security Officer Relationship Specialty Start Date End Date Rolanda Thakur MD 505 [place] [address] PCP - General Internal Medicine 09/19/22 documented as of this encounter
--- OUTSIDE RECORDS SUMMARY | 2025-08-11 10:33 | XMS_ITS | Encounter Summary ---
Author Organization [employer] Address [address] [address] Care Team Providers Care Wire Coater Name Role Phone Rolanda Thakur MD Primary Care Provider [phone] Reason for Visit * Reason Onset Date Comments Medication Question 04/04/2024 Encounter Details Date Type Department Care Team ([facility] st Contact Info) Description 04/04/2024 Telephone [facility] MEDICINE [address] [place] [address] Rolanda Thakur MD [address] [place], [place] [phone] Medication Question Social History Tobacco Use Types [...] 09/12/2025 3:15 PM EST Office Visit [facility] MED & PEDS [address] [place] [address] Rolanda Thakur MD [address] [place] [address] documented as of this encounter Visit Diagnoses Not on filedocumented in this encounter Care Teams Wire Coater Relationship Specialty Start Date End Date oRlanda Thakur MD [address] [place] [address] PCP - General Internal Medicine 09/19/22 documented as of this encounter
--- OUTSIDE RECORDS SUMMARY | 2025-08-11 10:33 | XMS_ITS | Encounter Summary ---
Author Organization [employer] Address [address] [place] [address] Care Team Providers Care Consultant In Ergonomics And Safety Name Role Phone Rolanda Thakur MD Primary Care Provider [phone] Encounter Details Date Type Department Care Team ([facility] Contact Info) Description 06/21/2023 Abstract [facility] MEDICINE [address] [place], [place] [phone] Sherrie Caballero Social History Tobacco Use Types [...] Upcoming Encounters Date Type Department Care Team ([facility] Contact Info) Description 09/12/2025 3:15 PM EST Office Visit [facility] CHC MED & PEDS [address] [place], [place] [phone] Rolanda Thakur MD 505 [place], [place] [phone] documented as of this encounter Procedures Procedure Name Priority Date/Time Associated Diagnosis Comments HM IFOBT Routine 01/03/2022 documented in this encounter Results * HM gFOBT (01/03/2022) Fecal Occult Blood 1 Negative Fecal Occult Blood 2 Negative Fecal Occult Blood 3 Negative 01/03/2022 us Historical Provider POINT OF CARE TEST ENTER/ EDIT ORDERABLES Final Result documented in this encounter Visit Diagnoses Not on filedocumented in this encounter Care Teams Consultant In Ergonomics And Safety Relationship Specialty Start Date End Date Rolanda Thakur MD [address] [place] [address] PCP - General Internal Medicine 09/19/22 documented as of this encounter
--- OUTSIDE RECORDS SUMMARY | 2025-08-11 10:33 | XMS_ITS | Encounter Summary ---
Author Organization [facility] [place] [address] Care Team Providers Care General Hardware Salesperson Name Role Phone Rolanda Thakur MD Primary Care Provider [phone] Reason for Visit * Reason Onset Date Comments EKG 07/28/2025 Encounter Details Date Type Department Care Team (Late st Contact Info) Description 07/28/2025 Telephone [facility] - [facility] [address] [facility] [address] [place] [address] Nikki Rawls MD [address] [place] [address] [place] [phone] Social History Tobacco Use Types Packs/Day Years [...] AM EST documented as of this encounter Progress Notes * Betty Fernandez RN - 07/28/2025 9:05 AM EST EKG from 07/23: HR Sinus Britton 59, otherwise normal EKG when compared with the one on July 082023. Echo scheduled for September 2025. Called pt is vary anxious. Made aware there were no concerns with last EKG. She still wants me to send to the care team to review and advise. Has many stress factors at this time and states she will be speaking with PCP to see if she can a referral for psych/counseling. * Carmen Broderick - 07/28/2025 8:20 AM EST Patient called and stated that she had an EKG on 07/23/25, and she said the numbers were off and very different from the one she had on 07/08/24. She said she is concerned, and she would like a call back. documented in this encounter Plan of Treatment Upcoming Encounters Date Type Department Care Team (Late st Contact Info) Description 10/07/2025 8:00 AM EST Ancillary Procedure [facility] - [address] Juan Manuel [address] [place] [phone] documented as of this encounter Visit Diagnoses Not on filedocumented in this encounter Care Teams General Hardware Salesperson Relationship Specialty Start Date End Date Rolanda Thakur MD [address] [place] [address] PCP - General 11/03/23 documented as of this encounter
--- OUTSIDE RECORDS SUMMARY | 2025-08-11 10:33 | XMS_ITS | Clinical Summary ---
Author Organization [facility] Address [address] [place] [address] Care Team Providers Care Estimating Engineer Name Role Phone Maren Hough MD Primary Care Provider [phone] Social History Tobacco Use Types Packs/Day Years [...] to complete this topic Insurance [facility] Medicare [facility] Medicare Care Teams Estimating Engineer Relationship Specialty Start Date End Date Maren Hough MD [address] [place] [address] PCP - General Family Medicine 06/20/22
--- OUTSIDE RECORDS SUMMARY | 2025-08-11 10:33 | XMS_ITS | Encounter Summary ---
Author Organization [facility] Address [address] [address] Care Team Providers Care Broom Builder Name Role Phone Rolanda Thakur MD Primary Care Provider [phone]- [phone] Reason for Visit * Reason Onset Date Comments Nurse Triage 08/05/2024 Encounter Details Date Type Department Care Team ([facility] st Contact Info) Description 08/05/2024 Telephone [facility] [address] [place] [address] Rolanda Thakur MD [address] [place], [place] [phone] Nurse Triage Social History Tobacco Use Types [...] 1145am. Pt is advised to come to [facility] today which is open till 8pm and also open 830am -800pm tomorrow. Pt agrees with this disposition. Pt will [facility] come to [facility] today[facility], if unable will come tomorrow. Pt [...] become worse * Telephone Encounter - Raz Manuel - 08/05/2024 9:12 AM EST Symptoms: Sinus [...] 3:15 PM EST Office Visit [facility] MED & PEDS 505 [place] [address] Rolanda Thakur MD [address] [place] [address] documented as of this encounter Visit Diagnoses Not on filedocumented in this encounter Additional Health Concerns Assessment Noted Time PHQ-9 Depression Total Score: 2 05/13/20 24 9:24 AM EDT documented as of this encounter Care Teams Broom Builder Relationship Specialty Start Date End Date Rolanda Thakur MD [address] [place] [address] PCP - General Internal Medicine 09/19/22 documented as of this encounter
--- OUTSIDE RECORDS SUMMARY | 2025-08-11 10:33 | XMS_ITS | Encounter Summary ---
Author Organization [employer] Address [address] [address] Care Team Providers Care Research & Insights Executive Name Role Phone Rolanda Tahkur MD Primary Care Provider [phone]- [phone] Reason for Visit * Reason Onset Date Comments Results 05/02/2025 Encounter Details Date Type Department Care Team ([facility] Contact Info) Description 05/02/2025 Telephone [facility] MEDICINE [address] [place] [address] Rolanda Thakur MD [address] [place], [place] [phone] Results Social History Tobacco Use Types Packs/Day [...] Miscellaneous Notes * Telephone Encounter - Raz Kaleb - 05/02/2025 3:38 PM EDT Tc from pt requesting a call back regarding results as well as a [employer] message stating she will be referred to a urologist. Pt expressed frustration due to the fact that she has not received a callfrom a nurse regarding results but is now being referred, she would like to further discuss before the day ends. Please contact pt at [phone]. documented in this encounter Plan of Treatment Upcoming Encounters Date Type Department Care Team ([facility] st Contact Info) Description 09/12/2025 3:15 PM EST Office Visit [facility] MED & PEDS 505 [place] [address] Rolanda Thakur MD 505 [place] [address] documented as of this encounter Visit Diagnoses Not on filedocumented in this encounter Additional Health Concerns Assessment Noted Time PHQ-9 Depression Total Score: 2 05/13/20 24 9:24 AM EDT documented as of this encounter Care Teams Research & Insights Executive Relationship Specialty Start Date End Date Rolanda Thakur MD [address] [place] [address] PCP - General Internal Medicine 09/19/22 documented as of this encounter
--- OUTSIDE RECORDS SUMMARY | 2025-08-11 10:33 | XMS_ITS | Encounter Summary ---
Author Organization [employer] Address [address] [place] [address] Care Team Providers Care High Speed Warper Tender Name Role Phone Rolanda Thakur MD Primary Care Provider [phone]- [phone] Reason for Visit * Reason Onset Date Comments Referral 06/13/2024 Encounter Details Date Type Department Care Team ([facility] st Contact Info) Description 06/13/2024 Telephone [facility] MEDICINE [address] [place] [address] Rolanda Thakur MD [address] [place], [place] [phone] Referral Social History Tobacco Use Types Packs/Day [facility] 505 [place] [address] Rolanda Thakur MD [address] [place] [address] documented as of this encounter Visit Diagnoses Not on filedocumented in this encounter Additional Health Concerns Assessment Noted Time PHQ-9 Depression Total Score: 2 05/13/20 24 9:24 AM EDT documented as of this encounter Care Teams High Speed Warper Tender Relationship Specialty Start Date End Date Rolanda Thakur MD [address] [place] [address] PCP - General Internal Medicine 09/19/22 documented as of this encounter
--- OUTSIDE RECORDS SUMMARY | 2025-08-11 10:33 | XMS_ITS | Encounter Summary ---
Author Organization [employer] Address [address] [place] [address] Care Team Providers Care Therapist Physical Name Role Phone Rolanda Thakur MD Primary Care Provider [phone]- [phone] Reason for Visit * Reason Onset Date Comments CT scan order 07/03/2024 Encounter Details Date Type Department Care Team ([facility] st Contact Info) Description 07/03/2024 Telephone [facility] CHC MED & PEDS [address] [place] [address] Rolanda Thakur MD [address] [place] [address] CT scan order Social History Tobacco Use [...] incorrect location. Pt prefers being seen in [facility]. Please call pt to clarify. documented in this encounter Plan of Treatment Upcoming Encounters Date Type Department Care Team (Late st Contact Info) Description 09/12/2025 3:15 PM EST Office Visit [facility] CHC MED & PEDS [address] [place] [address] Rolanda Thakur MD [address] [place] [address] documented as of this encounter Visit Diagnoses Not on filedocumented in this encounter Additional Health Concerns Assessment Noted Time PHQ-9 Depression Total Score: 2 05/13/20 24 9:24 AM EDT documented as of this encounter Care Teams Therapist Physical Relationship Specialty Start Date End Date Rolanda Thakur MD [address] [place] [address] PCP - General Internal Medicine 09/19/22 documented as of this encounter
--- OUTSIDE RECORDS SUMMARY | 2025-08-11 10:33 | XMS_ITS | Encounter Summary ---
Author Organization [employer] Address [address] [place] [address] 7 [place] [address] Care Team Providers Care Agriculture Inspector Name Role Phone Rolanda Thakur MD Primary Care Provider [phone]- [phone] Encounter Details Date Type Department Care Team ([facility] st Contact Info) Description 05/01/2025 Orders Only [facility] CHC MED & PEDS [address] [place] [address] Rolanda Thakur MD [address] [place] [address] Recent urinary tract infection (Primary Dx) Social [...] Upcoming Encounters Date Type Department Care Team ([facility] st Contact Info) Description 09/12/2025 3:15 PM EST Office Visit [facility] MED & PEDS [address] [place] [address] Rolanda Thakur MD [address] [place] [address] documented as of this encounter Procedures Procedure Name Priority Date/Time Associated Diagnosis Comments CULTURE, URINE, ROUTINE Routine 05/10/2025 8:50 AM EDT Recent urinary tract infection documented in this encounter Results * Culture, Urine, Routine (05/10/2025 8:50 AM EDT) Urine Urine specimen obtained by clean catch procedure / Unknown 05/10/2025 8:50 AM EDT 05/10/2025 11:44 AM EDT Comment:[facility] Narrative [facility] - 05/11/2025 8:42 AM EDT Urine Culture No growth. Specimen Source: Urine clean catch Rolanda Thakur MD LAB MICROBIOLOGY - GENERAL ORDERABLES Final Result [facility] [address] [place] [address] [phone] documented in this encounter Visit Diagnoses Diagnosis Recent urinary tract infection- Primary documented in this encounter Additional Health Concerns Assessment Noted Time PHQ-9 Depression Total Score: 2 05/13/20 24 9:24 AM EDT documented as of this encounter Care Teams Agriculture Inspector Relationship Specialty Start Date End Date Rolanda Thakur MD [address] [place] [address] PCP - General Internal Medicine 09/19/22 documented as of this encounter
--- OUTSIDE RECORDS SUMMARY | 2025-08-11 10:33 | XMS_ITS | Encounter Summary ---
Author Organization [employer] Address [address] [place] [address] Care Team Providers Care Risk Control Manager Name Role Phone Rolanda Thakur MD Primary Care Provider [phone]- [phone] Encounter Details Date Type Department Care Team (Late Contact Info) Description 05/22/2024 Orders Only [facility] CHC MED & PEDS [address] [place] [address] Rolanda Thakur MD 505 [place] [address] Social History Tobacco Use Types Packs/Day Years [...] Description 09/12/2025 3:15 PM EST Office Visit [facility] CHC MED & PEDS [address] [place] [address] Rolanda Thakur MD [address] [place] [address] documented as of this encounter Visit Diagnoses Not on filedocumented in this encounter Additional Health Concerns Assessment Noted Time PHQ-9 Depression Total Score: 2 05/13/20 24 9:24 AM EDT documented as of this encounter Care Teams Risk Control Manager Relationship Specialty Start Date End Date Rolanda Thakur MD [address] [place] [address] PCP - General Internal Medicine 09/19/22 documented as of this encounter
--- OUTSIDE RECORDS SUMMARY | 2025-08-11 10:33 | XMS_ITS | Encounter Summary ---
Author Organization [employer] Address [address] [address] Care Team Providers Care Steel Crane Operator Name Role Phone Rolanda Thakur MD Primary Care Provider +1- [phone] Reason for Visit * Reason Onset Date Comments Nurse Triage 04/04/2024 Encounter Details Date Type Department Care Team ([facility] st Contact Info) Description 04/04/2024 Telephone [facility] MEDICINE [address] [place] [address] Rolanda Thakur MD [address] [place], [place] [phone] Nurse Triage Social History Tobacco Use Types [...] pt. She states that she went to [facility] ED for Anxiety panic attacks on 03/30/24- [...] got treated horribly by the staff at [facility] and she will never go there again. [...] care coordinators so that they can get [facility] ED notes from 03/30/24 Ed visit into [...] 3:15 PM EST Office Visit [facility] MED & PEDS [address] [place] [address] Rolanda Thakur MD [address] [place] [address] documented as of this encounter Visit Diagnoses Not on filedocumented in this encounter Care Teams Steel Crane Operator Relationship Specialty Start Date End Date Rolanda Thakur MD [address] [place] [address] PCP - General Internal Medicine 09/19/22 documented as of this encounter
--- OUTSIDE RECORDS SUMMARY | 2025-08-11 10:33 | XMS_ITS | Encounter Summary ---
Author Organization [employer] Address [address] [place] [address] Care Team Providers Care Sustainability Director Name Role Phone Rolanda Thakur MD Primary Care Provider +1- [phone] Reason for Visit * Reason Onset Date Comments Referral 05/18/2023 Encounter Details Date Type Department Care Team ([facility] st Contact Info) Description 05/18/2023 Telephone [facility] CHC MED & PEDS [address] [place] [address] Rolanda Thakur MD [address] [place] [address] Referral Social History Tobacco Use Types Packs/Day [...] used to see Dr. Chad Dempsey from [facility] butnow the office doesn't take her insurance. [...] advise. Also sent you her response from [employer]. Thanks. * Telephone Encounter - Annabella Peña [...] to Specialty: (EMG) Dr nolasco Date&Time: N/a Rn Neurology: n/a Please call pt to clarify documented in this encounter Plan of Treatment Upcoming Encounters Date Type Department Care Team (Late st Contact Info) Description 09/12/2025 3:15 PM EST Office Visit [facility] MED & PEDS [address] [place] [address] Rolanda Thakur MD [address] [place] [address] documented as of this encounter Visit Diagnoses Not on filedocumented in this encounter Care Teams Sustainability Director Relationship Specialty Start Date End Date Rolanda Thakur MD [address] [place] [address] PCP - General Internal Medicine 09/19/22 documented as of this encounter
--- OUTSIDE RECORDS SUMMARY | 2025-08-11 10:33 | XMS_ITS | Encounter Summary ---
Author Organization [employer] Address [address] [place] [address] Care Team Providers Care Security Systems Sales Representative Name Role Phone Rolanda Thakur MD Primary Care Provider [phone]- [phone] Reason for Visit * Reason Onset Date Comments Nurse Triage 06/04/2025 Encounter Details Date Type Department Care Team ([facility] st Contact Info) Description 06/04/2025 Telephone [facility] CHC MED & PEDS [address] [place] [address] Rolanda Thakur MD [address] [place] [address] Nurse Triage Social History Tobacco Use Types [...] caller accepted this outcome. Contact pt at [phone] documented in this encounter Plan of Treatment Upcoming Encounters Date Type Department Care Team (Late st Contact Info) Description 09/12/2025 3:15 PM EST Office Visit [facility] CHC MED & PEDS [address] [place] [address] Rolanda Thakur MD [address] [place] [address] documented as of this encounter Visit Diagnoses Not on filedocumented in this encounter Additional Health Concerns Assessment Noted Time PHQ-9 Depression Total Score: 2 05/13/20 24 9:24 AM EDT documented as of this encounter Care Teams Security Systems Sales Representative Relationship Specialty Start Date End Date Rolanda Thakur MD [address] [place] [address] PCP - General Internal Medicine 09/19/22 documented as of this encounter
--- OUTSIDE RECORDS SUMMARY | 2025-08-11 10:33 | XMS_ITS | Encounter Summary ---
Author Organization [employer] Address [address] [place] [address] Care Team Providers Care Greeter Guest Services Name Role Phone Rolanda Thakur MD Primary Care Provider +1 [phone] Reason for Referral * Imaging (Routine) - Closed Specialty Diagnoses / Procedures Referred By Contac t Referred To Contact Radiology Diagnoses Hyponatremia Decreased GFR Procedures US RENAL BI Rolanda Thakur MD [address] [place] [address] Phone: tel: fax: [address] [address] Phone: tel: fax: Referral ID Status Reason Start Date Expiration Date Visits Re quested Visits Authorized [id number] Closed 07/18/2024 07/18/2025 1 0 Encounter Details Date Type Department Care Team (Late st Contact Info) Description 07/09/2024 Orders Only [facility] MED & PEDS [address] [place], [place] [phone] Rolanda Thakur MD [address] [place], [place] [phone] Hyponatremia (Primary Dx); Decreased GFR Social History [...] Office Visit [facility] PEDS [address] [place], [place] [phone] Rolanda Thakur MD [address] [place] [address] Scheduled Orders Name Type Priority Associated Diagnoses [...] EDT) Sodium 133(L) 135 - 145 mmol/L [facility] Potassium 4.9 3.3 - 5.1 mmol/L [facility] Chloride 104 96 - 108 mmol/L [facility] Carbon Dioxide 23 22 - 29 mmol/L [facility] Anion Gap 11(L) 12 - 20 [facility] Urea Nitrogen (BUN) 15 9 - 16 mg/dL [facility] Creatinine, Serum 0.82 0.5 - 1.4 mg/dL [facility] Estimated Glomerular Filt Rate >60 [facility] Comment:Chronic Kidney Disea se: Estimated GFR < 60 mL/min/1.89n5Cwmiuw Kidney Disease: Estimated GFR < 15 mL/min/1.73m2 Glucose 177(H) 60 - 115 mg/dL [facility] Calcium 9.5 8.4 - 10.2 mg/dL [facility] Blood Venous blood specimen / Unknown 02/05/2025 12:22 PM EDT 02/05/2025 1:20 PM EDT us Rolanda Thakur MD LAB BLOOD ORDERABLES Final Result [facility] [address] [place], [place] [phone] documented in this encounter Visit Diagnoses Diagnosis Hyponatremia- Primary Hyposmolality and/or hyponatremia Decreased GFR documented in this encounter Additional Health Concerns Assessment Noted Time PHQ-9 Depression Total Score: 2 05/13/20 24 9:24 AM EDT documented as of this encounter Care Teams Greeter Guest Services Relationship Specialty Start Date End Date Rolanda Thakur MD [address] [place] [address] PCP - General Internal Medicine 09/19/22 documented as of this encounter
--- OUTSIDE RECORDS SUMMARY | 2025-08-11 10:33 | XMS_ITS | Encounter Summary ---
Author Organization [employer] Address [address] [place] [address] 7 [place] [address] Care Team Providers Care Ordnance Technician Name Role Phone Rolanda Thakur MD Primary Care Provider +1 [phone] Encounter Details Date Type Department Care Team ([facility] st Contact Info) Description 11/20/2024 Orders Only [facility] CHC MED & PEDS [address] [place] [address] Rolanda Thakur MD [address] [place] [address] Type 2 diabetes mellitus without complication, without long-term current use of insulin ([facility]) (Primary Dx); UTI symptoms Social History [...] Upcoming Encounters Date Type Department Care Team ([facility] st Contact Info) Description 09/12/2025 3:15 PM EST Office Visit [facility] MED & PEDS [address] [place] [address] Rolanda Thakru MD [address] [place] [address] documented as of this encounter Procedures Procedure Name Priority Date/Time Associated Diagnosis Comments CULTURE, URINE, ROUTINE Routine 11/23/2024 9:05 AM EDT Type 2 diabetes mellitus without complication, without long-term current use of insulin ([facility]) UTI symptoms CBC WITH AUTO DIFFERENTIAL Routine 11/23/2024 9:00 AM EDT Type 2 diabetes mellitus without complication, without long-term current use of insulin ([facility]) BASIC METABOLIC PANEL Routine 11/23/2024 9:00 AM EDT Type 2 diabetes mellitus without complication, without long-term current use of insulin ([facility]) documented in this encounter Results * Culture, Urine, Routine (11/23/2024 9:05 AM EDT) Urine Urine specimen obtained by clean catch procedure / Unknown 11/23/2024 9:05 AM EDT 11/23/2024 11:26 AM EDT Comment:UACC Narrative [facility] - 11/24/2024 11:22 AM EDT Urine Culture Report Result Urine Culture 10,000 to 50,000 cfu/ml Urine Culture Mixed bacterial hailey characteristic of Urine Culture urogenital contamination. Specimen Source: Urine clean catch us Rolanda Thakur MD LAB MICROBIOLOGY - GENERAL ORDERABLES Final Result [facility] [address] [place] [address] [phone] * (ABNORMAL) CBC auto differential (11/23/2024 9:00 AM EDT) White Blood Count 8.5 4.8 - 10.8 X10*3/uL [facility] Red Blood Count 4.27 4.20 - 5.50 X10*6/uL [facility] Hemoglobin 12.8 12.0 - 16.0 g/dl [facility] Hematocrit 37.0 37.0 - 47.0 % [facility] Mean Corpuscular Volume 86.7 80.0 - 98.0 fL [facility] Mean Corpuscular Hemoglobin 30.0 27.0 - 33.0 pg [facility] Mean Corpuscular HGB Conc 34.6 31.0 - 35.0 g/dl [facility] Red Cell Distribution Width 13.1 11.0 - 16.0 % [facility] Platelet Count 269 160 - 400 X10*3/uL [facility] Mean Platelet Volume 9.1(L) 9.4 - 12.3 fL [facility] Neutrophils Percent Auto 64.4 45 - 73 % [facility] Imm Gran Pct Auto 0.4 0.0 - 0.4 % [facility] Lymphocytes Percent Auto 23.8 20 - 40 % [facility] Monocytes Percent Auto 5.9 2 - 11 % [facility] Eosinophils Percent Auto 4.7(H) 0 - 4 % [facility] Basophils Percent Auto 0.8 0 - 2 % [facility] NRBC Pct Auto 0.0 0.0 - 0.2 /100WBC [facility] Neutrophils Absolute Auto 5.4 2.0 - 8.3 x10*3/uL [facility] Imm Gran Abs Auto 0.03 0.00 - 0.03 X10*3/uL [facility] Lymphocytes Absolute Auto 2.0 1.2 - 4.9 X10*3/uL [facility] Monocytes Absolute Auto 0.5 0.1 - 1.2 X10*3/uL [facility] Eosinophils Absolute Auto 0.4 0.0 - 0.4 X10*3/uL [facility] Basophils Absolute Auto 0.1 0.0 - 0.2 X10*3/uL [facility] NRBC Abs Auto 0.000 0.0 - 0.012 X10*3/uL [facility] Blood Venous blood specimen / Unknown 11/23/2024 9:00 AM EDT 11/23/2024 11:37 AM EDT us Rolanda Thakur MD LAB BLOOD ORDERABLES Final Result [facility] [address] [place] [address] [phone] * (ABNORMAL) Basic Metabolic Panel (11/23/2024 9:00 AM EDT) Sodium 135 135 - 145 mmol/L [facility] Potassium 4.4 3.3 - 5.1 mmol/L [facility] Chloride 103 96 - 108 mmol/L [facility] Carbon Dioxide 24 22 - 29 mmol/L [facility] Anion Gap 12 12 - 20 [facility] Urea Nitrogen (BUN) 21(H) 9 - 16 mg/dL [facility] Creatinine, Serum 0.89 0.5 - 1.4 mg/dL [facility] Estimated Glomerular Filt Rate >60 [facility] Comment:Chronic Kidney Disea se: Estimated GFR < 60 mL/min/1.05i6Bodynm Kidney Disease: Estimated GFR < 15 mL/min/1.73m2 Glucose 161(H) 60 - 115 mg/dL [facility] Calcium 10.2 8.4 - 10.2 mg/dL [facility] Blood Venous blood specimen / Unknown 11/23/2024 9:00 AM EDT 11/23/2024 11:37 AM EDT us Rolanda Thakur MD LAB BLOOD ORDERABLES Final Result [facility] [address] [place] [address] [phone] documented in this encounter Visit Diagnoses Diagnosis Type 2 diabetes mellitus without complication, without long-term current use of insulin (HCC)- Primary UTI symptoms documented in this encounter Additional Health Concerns Assessment Noted Time PHQ-9 Depression Total Score: 2 05/13/20 24 9:24 AM EDT documented as of this encounter Care Teams Ordnance Technician Relationship Specialty Start Date End Date Rolanda Thakur MD [address] [place] [address] PCP - General Internal Medicine 09/19/22 documented as of this encounter
--- OUTSIDE RECORDS SUMMARY | 2025-08-11 10:33 | XMS_ITS | Encounter Summary ---
Author Organization [employer] Address [address] [place] [address] Care Team Providers Care Cover Remover Name Role Phone Rolanda Thakur MD Primary Care Provider +1- [phone] Reason for Visit * Reason Onset Date Comments EKG 06/18/2024 Encounter Details Date Type Department Care Team ([facility] [address] Contact Info) Description 06/18/2024 Telephone [facility] CHC MED & PEDS [address] [place] [address] Rolanda Thakur MD [address] [place] [address] EKG Social History Tobacco Use Types Packs/Day [...] appointment to get the notes for our personal security specialist to process the referral. * [...] should seek a neurology referral. She states cardiology physician advised her to get a referral due to procedure done for cataracts might have struck a nerve and that might be were the headaches are coming from. * Telephone Encounter - Annabella Peña - 06/18/2024 4:03 PM EDT Tc from pt requesting status on order for EKG. Contact Paulette at [phone] documented in this encounter Plan of Treatment Upcoming Encounters Date Type Department Care Team (Late st Contact Info) Description 09/12/2025 3:15 PM EST Office Visit [facility] MED & PEDS [address] [place] [address] Rolanda Thakur MD [address] [place] [address] documented as of this encounter Visit Diagnoses Not on filedocumented in this encounter Additional Health Concerns Assessment Noted Time PHQ-9 Depression Total Score: 2 05/13/20 24 9:24 AM EDT documented as of this encounter Care Teams Cover Remover Relationship Specialty Start Date End Date Rolanda Thakur MD [address] [place] [address] PCP - General Internal Medicine 09/19/22 documented as of this encounter
--- OUTSIDE RECORDS SUMMARY | 2025-08-11 10:33 | XMS_ITS | Encounter Summary ---
Author Organization [employer] Address [address] [address] Care Team Providers Care Axle And Frame Mechanic Name Role Phone Rolanda Thakur MD Primary Care Provider +1- [phone] Reason for Visit * Reason Comments Med Refill Encounter Details Date Type Department Care Team ([facility] st Contact Info) Description 02/05/2025 Refill [facility] MEDICINE [address] [place] [address] Rolanda Thakur MD [address] [place], [place] [phone] Acquired hypothyroidism Social History Tobacco Use Types [...] Miscellaneous Notes * Telephone Encounter - Tessy Eugenio - 02/10/2025 9:54 AM EDT Pt states she needed someone to call her in regards to a up dose on her Thyroid Medication. Pt states her diabetic bird trapper changed the dosage to 1.12. documented in this encounter Plan of Treatment Upcoming Encounters Date Type Department Care Team (Late st Contact Info) Description 09/12/2025 3:15 PM EST Office Visit [facility] MED & PEDS [address] [place] [address] Rolanda Thakur MD [address] [place] [address] documented as of this encounter Visit Diagnoses Diagnosis Acquired hypothyroidism Unspecified hypothyroidism documented in this encounter Additional Health Concerns Assessment Noted Time PHQ-9 Depression Total Score: 2 05/13/20 24 9:24 AM EDT documented as of this encounter Care Teams Axle And Frame Mechanic Relationship Specialty Start Date End Date Rolanda Thakur MD [address] [place] [address] PCP - General Internal Medicine 09/19/22 documented as of this encounter
--- OUTSIDE RECORDS SUMMARY | 2025-08-11 10:33 | XMS_ITS | Encounter Summary ---
Author Organization [employer] Address [address] [place] [address] Care Team Providers Care Sandwich Wrapper Name Role Phone Rolanda Thakur MD Primary Care Provider +1- [phone] Encounter Details Date Type Department Care Team ([facility] Contact Info) Description 04/08/2024 Orders Only [facility] [address] [place], [place] [phone] Rolanda Thakur MD [address] [place], [place] [phone] UTI symptoms (Primary Dx) Social History Tobacco [...] Description 09/12/2025 3:15 PM EST Office Visit [facility] CHC MED & PEDS [address] [place], [place] [phone] Rolanda Thakur MD [address] [place], [place] [phone] documented as of this encounter Visit Diagnoses Diagnosis UTI symptoms- Primary documented in this encounter Care Teams Sandwich Wrapper Relationship Specialty Start Date End Date Rolanda Thakur MD [address] [place] [address] PCP - General Internal Medicine 09/19/22 documented as of this encounter
--- OUTSIDE RECORDS SUMMARY | 2025-08-11 10:33 | XMS_ITS | Encounter Summary ---
Author Organization [employer] Address [address] [place] [address] Care Team Providers Care Sanitary Landfill Supervisor Name Role Phone Rolanda Thakur MD Primary Care Provider +1- [phone] Reason for Referral * Consultation (Routine) - Closed Specialty Diagnoses / Procedures Referred By Freddy t Referred To Contact Chiropractic Medicine Diagnoses Chronic left-sided low back pain with left-sided sciatica Rolanda Thakur MD [address] [place] [address] Phone: tel: fax: [facility] fax: Referral ID Status Reason Start Date Expiration Date V isits Requested Visits Authorized [id number] Closed Specialty Services Required 08/08/2024 08/08/2025 1 1 * Consultation (Routine) - Closed Specialty Diagnoses / Procedures Referred By Freddy t Referred To Contact Physical Therapy Diagnoses Chronic left-sided low back pain with left-sided sciatica Rolanda Thakur MD [address] [place] [address] Phone: tel: fax: [facility] [address] [place] [address] Phone: tel: fax: Referral ID Status Reason Start Date Expiration Date V isits Requested Visits Authorized [id number] Closed Specialty Services Required 08/05/2024 08/05/2025 1 1 * Consultation (Routine) - Closed Specialty Diagnoses / Procedures Referred By Freddy meadows Referred To Contact Chiropractic Medicine Diagnoses Chronic left-sided low back pain with left-sided sciatica Rolanda Thakur MD [address] [place] [address] Phone: tel: fax: Referral ID Status Reason Start Date Expiration Date V isits Requested Visits Authorized [id number] Closed Specialty Services Required 08/02/2024 08/02/2025 1 1 Encounter Details Date Type Department Care Team ([facility] st Contact Info) Description 08/02/2024 Orders Only [facility] CHC MED & PEDS [address] [place] [address] Rolanda Thakur MD [address] [place] [address] Chronic left-sided low back pain with left-sided [...] Upcoming Encounters Date Type Department Care Team ([facility] st Contact Info) Description 09/12/2025 3:15 PM EST Office Visit [facility] MED & PEDS [address] [place] [address] Rolanda Thakur MD [address] [place] [address] Scheduled Referrals Name Type Priority Associated Diagnoses [...] AM EST Narrative 09/02/2024 11:24 AM EST [facility] [address] [place] [address] [place] [address] XRay Report Signed Patient: Angely Pineda MR#: [id number] : 1950 Acct:[id number] Age/Sex: 74 / F ADM Date: 08/12/24 Loc: HO.HMGCX Attending Dr: Wyatt Golden MD Ordering Physician: Wyatt Golden MD Date of Service: 08/12/24 Procedure(s): XR cervical spine 5V Accession Number(s): [id number] cc: Rolanda Thakur MD; Wyatt Golden MD [...] 09/02/24 1121 DD/ 0950 TD/TT: 08/12/24 1000 Glass Production Machine Operator: Procedure Note Donotuseinterpreter, Image - 09/02/2024 [facility] [address] [place] [address] [place] [address] XRay Report Signed Patient: Angely PinedaMR#: [id number] : 1950cct:[id number] Age/Sex: 74 / FADM Date: 08/12/24 Loc: HO.HMGCX Attending Dr: Wyatt Golden MD Ordering Physician: Wyatt Golden MD Date of Service: 08/12/24 Procedure(s): XR cervical spine 5V Accession Number(s): [id number] cc: Rolanda Thakur MD; Wyatt Golden MD [...] 09/02/2024 11:21 AM [facility] Dictated By: Yuridia Becerra MD Signed By: <Electronically signed by Yuridia Becerra MD in OV> 09/02/24 1121 DD/ 0950 TD/TT: 08/12/24 1000 Glass Production Machine Operator: Wyatt Mcdonald MD IMG XR PROCEDURES Iftikhar mecca Result - Final documented in this encounter Visit Diagnoses Diagnosis Chronic left-sided low back pain with left-sided sciatica- Primary documented in this encounter Additional Health Concerns Assessment Noted Time PHQ-9 Depression Total Score: 2 05/13/20 24 9:24 AM EDT documented as of this encounter Care Teams Sanitary Landfill Supervisor Relationship Specialty Start Date End Date Rolanda Thakur MD [address] [place] [address] PCP - General Internal Medicine 09/19/22 documented as of this encounter
--- OUTSIDE RECORDS SUMMARY | 2025-08-11 10:33 | XMS_ITS | Encounter Summary ---
Author Organization [employer] Address [address] [place] [address] Care Team Providers Care Braid Cutter Name Role Phone Rolanda Thakur MD Primary Care Provider +1- [phone] Reason for Visit * Reason Onset Date Comments Med Refill 05/08/2025 Encounter Details Date Type Department Care Team ([facility] st Contact Info) Description 05/08/2025 Refill [facility] CHC MED & PEDS [address] [place] [address] Rolanda Thakur MD [address] [place] [address] Recent urinary tract infection Social History Tobacco [...] 3:15 PM EST Office Visit [facility] MED & PEDS [address] [place] [address] Rolanda Thakur MD [address] [place] [address] documented as of this encounter Visit Diagnoses Diagnosis Recent urinary tract infection documented in this encounter Additional Health Concerns Assessment Noted Time PHQ-9 Depression Total Score: 2 05/13/20 24 9:24 AM EDT documented as of this encounter Care Teams Braid Cutter Relationship Specialty Start Date End Date Rolanda Thakur MD [address] [place] [address] PCP - General Internal Medicine 09/19/22 documented as of this encounter
--- OUTSIDE RECORDS SUMMARY | 2025-08-11 10:34 | XMS_ITS | Encounter Summary ---
Author Organization [employer] Address [address] [place] [address] Care Team Providers Care Mill Turner Name Role Phone Rolanda Thakur MD Primary Care Provider +1- [phone] Reason for Visit * Reason Onset Date Comments Medication Question 12/08/2022 Encounter Details Date Type Department Care Team ([facility] st Contact Info) Description 12/08/[address] [facility] CHC MED & PEDS [address] [place], [place] [phone] Rolanda Thakur MD [address] [place] [address] Medication Question Social History Tobacco Use Types [...] Description 09/12/2025 3:15 PM EST Office Visit [facility] MED & PEDS [address] [place] [address] Rolanda Thakur MD [address] [place] [address] documented as of this encounter Visit Diagnoses Not on filedocumented in this encounter Care Teams Mill Turner Relationship Specialty Start Date End Date Rolanda Thakur MD [address] [place] [address] PCP - General Internal Medicine 09/19/22 documented as of this encounter
--- OUTSIDE RECORDS SUMMARY | 2025-08-11 10:34 | XMS_ITS | Encounter Summary ---
Author Organization [employer] Address [address] [address] Care Team Providers Care Data Collection Interviewer Name Role Phone Rolanda Thakur MD Primary Care Provider +1- [phone] Reason for Visit * Reason Onset Date Comments Nurse Triage 09/24/2024 Encounter Details Date Type Department Care Team ([facility] st Contact Info) Description 09/24/2024 Telephone [facility] MEDICINE [address] [place] [address] Rolanda Thakur MD [address] [place], [place] [phone] Nurse Triage Social History Tobacco Use Types [...] for today as no appts in [facility]. Pt states gets panic attacks if has to wait . Pt advised unfortunately no appts in [facility]> Unable to schedule ahead for WIC. Pt states will seek [facility] in [place]. Will send to team as FYI to [...] acuity questions The caller accepted this outcome. [phone] documented in this encounter Plan of Treatment Upcoming Encounters Date Type Department Care Team ([facility] st Contact Info) Description 09/12/2025 3:15 PM EST Office Visit [facility] MED & PEDS [address] [place] [address] Rolanda Thakur MD [address] [place] [address] documented as of this encounter Visit Diagnoses Not on filedocumented in this encounter Additional Health Concerns Assessment Noted Time PHQ-9 Depression Total Score: 2 05/13/20 24 9:24 AM EDT documented as of this encounter Care Teams Data Collection Interviewer Relationship Specialty Start Date End Date Rolanda Thakur MD [address] [place] [address] PCP - General Internal Medicine 09/19/22 documented as of this encounter
--- OUTSIDE RECORDS SUMMARY | 2025-08-11 10:34 | XMS_ITS | Encounter Summary ---
Author Organization [employer] Address [address] [place] [address] Care Team Providers Care Title One Kindergarten Teacher Name Role Phone Rolanda Thakur MD Primary Care Provider +1- [phone] Encounter Details Date Type Department Care Team ([facility] Contact Info) Description 12/07/2023 Telephone [facility] MEDICINE [address] [place], [place] [phone] Rolanda Thakur MD [address] [place] [address] Social History Tobacco Use Types Packs/Day Years [...] Upcoming Encounters Date Type Department Care Team ([facility] Contact Info) Description 09/12/2025 3:15 PM EST Office Visit [facility] CHC MED & PEDS [address] [place], [place] [phone] Rolanda Thakur MD [address] [place], [place] [phone] documented as of this encounter Visit Diagnoses Not on filedocumented in this encounter Care Teams Title One Kindergarten Teacher Relationship Specialty Start Date End Date Rolanda Thakur MD [address] [place] [address] PCP - General Internal Medicine 09/19/22 documented as of this encounter
--- OUTSIDE RECORDS SUMMARY | 2025-08-11 10:34 | XMS_ITS | Encounter Summary ---
Author Organization [employer] Address [address] [place] [address] Care Team Providers Care Radio Adjuster Name Role Phone Rolanda Thakru MD Primary Care Provider +1- [phone] Reason for Visit * Reason Onset Date Comments Med Refill 12/26/2024 Encounter Details Date Type Department Care Team ([facility] st Contact Info) Description 12/26/2024 Refill [facility] CHC MED & PEDS [address] [place] [address] Rolanda Thakur MD [address] [place] [address] Acquired hypothyroidism Social History Tobacco Use Types [...] Description 09/12/2025 3:15 PM EST Office Visit [facility] MED & PEDS [address] [place] [address] Rolanda Thakur MD [address] [place] [address] documented as of this encounter Visit Diagnoses Diagnosis Acquired hypothyroidism Unspecified hypothyroidism documented in this encounter Additional Health Concerns Assessment Noted Time PHQ-9 Depression Total Score: 2 05/13/20 24 9:24 AM EDT documented as of this encounter Care Teams Radio Adjuster Relationship Specialty Start Date End Date Rolanda Thakur MD [address] [place] [address] PCP - General Internal Medicine 09/19/22 documented as of this encounter
--- OUTSIDE RECORDS SUMMARY | 2025-08-11 10:34 | XMS_ITS | Encounter Summary ---
Author Organization [employer] Address [address] [facility] 7t [place] [address] Care Team Providers Care Rubber Belt Splicer Name Role Phone Rolanda Thakur MD Primary Care Provider +[phone] Encounter Details Date Type Department Care Team ([facility] st Contact Info) Description 12/18/2024 Orders Only [facility] MED & PEDS [address] [place] [address] ProviderChema MD Social History Tobacco Use Types [...] Upcoming Encounters Date Type Department Care Team ([facility] st Contact Info) Description 09/12/2025 3:15 PM EST Office Visit [facility] MED & PEDS 505 [place] [address] Rolanda Thakur MD 505 [place] [address] documented as of this encounter Procedures Procedure [...] documented as of this encounter Care Teams Rubber Belt Splicer Relationship Specialty Start Date End Date Rolanda Thakur MD [address] [place] [address] PCP - General Internal Medicine 09/19/22 documented as of this encounter
--- OUTSIDE RECORDS SUMMARY | 2025-08-11 10:34 | XMS_ITS | Encounter Summary ---
Author Organization [employer] Address [address] [place] [address] Care Team Providers Care Healthcare Account Manager Name Role Phone Rolanda Thakur MD Primary Care Provider +1- [phone] Encounter Details Date Type Department Care Team (Late Contact Info) Description 03/28/2024 Orders Only [facility] MED & PEDS [address] [place], [place] [phone] Karen Alcantar MD 505 [place] [address] Social History Tobacco Use Types Packs/Day Years [...] 3:15 PM EST Office Visit [facility] MED & PEDS [address] [place] [address] Rolanda Thakur MD 505 [place], [place] [phone] documented as of this encounter Visit Diagnoses Not on filedocumented in this encounter Care Teams Healthcare Account Manager Relationship Specialty Start Date End Date Rolanda Thakur MD [address] [place] [address] PCP - General Internal Medicine 09/19/22 documented as of this encounter
--- OUTSIDE RECORDS SUMMARY | 2025-08-11 10:34 | XMS_ITS | Encounter Summary ---
Author Organization [employer] Address [address] [place] [address] 7 [place] [address] Care Team Providers Care Coffee Shop Attendant Name Role Phone Rolanda Thakur MD Primary Care Provider +1- [phone] Encounter Details Date Type Department Care Team ([facility] st Contact Info) Description 09/23/[address] [facility] MED & PEDS [address] [place] [address] Rolanda Thakur MD 505 [place] [address] Acquired hypothyroidism (Primary Dx); Benign essential hypertension [...] Upcoming Encounters Date Type Department Care Team ([facility] Contact Info) Description 09/12/2025 3:15 PM EST Office Visit [facility] MED & PEDS 505 [place] [address] Rolanda Thakur MD [address] [place] [address] Scheduled Orders Name Type Priority Associated Diagnoses [...] EST) Aldosterone 2 see note ng/dL [facility] Comment:Unable to flag abnor mal result(s), please refer to reference range(s) below:Adult Reference Ranges for Aldosterone, LC/MS/MS: Upright 8:00 - 10:00 am < or = 28 ng/dL Upright 4:00 - 6:00 pm < or = 21 ng/dL Supine 8:00 - 10:00 am 3 - 16 ng/dLTHIS TEST WAS PERFORMED AT:[employer] [address] [id number] PEDERSEN MD,PHD Plasma Renin Activity 0.52 0.25 - 5.82 ng/mL/h [facility] Aldosterone/Renin Ratio 3.8 0.9 - 28.9 Ratio [facility] Comment:This test was develo ped and its analytical performancecharacteristics have been determined by [employer] [place], [place]. It hasnot been cleared or approved by the U.S. Food and DrugAdministration. This assay has been validated pursuantto the CLIA regulations and is used for clinicalpurposes.THIS TEST WAS PERFORMED AT:[employer] [address] [id number] PEDERSEN MD,PHD Blood Venous blood specimen / Unknown 09/24/2024 1:40 PM EST 09/24/2024 4:21 PM EST us Rolanda Thakur MD LAB BLOOD ORDERABLES Final Result [facility] [address] [place] [phone] * TSH W/Reflex to FT4 (09/24/2024 1:40 PM EST) TSH reflex Free T4 0.38 0.32 - 4.0 uIU/mL [facility] Blood Venous blood specimen / Unknown 09/24/2024 1:40 PM EST 09/24/2024 4:21 PM EST Rolanda Thakur MD LAB BLOOD ORDERABLES Final Result Performing Organization Address [facility] de Phone Number [facility] [address] [place] [phone] * (ABNORMAL) Basic Metabolic Panel, Fasting [...] Kidney Disea se: Estimated GFR < 60 mL/min/1.50f7Swedxr Kidney Disease: Estimated GFR < 15 mL/min/1.73m2 [...] BLOOD ORDERABLES Final Result Performing Organization Address City/[facility]/ZIP Co de Phone Number [facility] [address] [place] [address] [phone] * (ABNORMAL) CBC auto differential (09/24/2024 [...] Final Result [facility] [address] [place] [address] [phone] documented in this encounter Visit Diagnoses Diagnosis Acquired hypothyroidism- Primary Unspecified hypothyroidism Benign essential hypertension Essential hypertension, benign documented in this encounter Additional Health Concerns Assessment Noted Time PHQ-9 Depression Total Score: 2 05/13/20 24 9:24 AM EDT documented as of this encounter Care Teams Coffee Shop Attendant Relationship Specialty Start Date End Date Rolanda Thakur MD [address] [place] [address] PCP - General Internal Medicine 09/19/22 documented as of this encounter
--- OUTSIDE RECORDS SUMMARY | 2025-08-11 10:34 | XMS_ITS | Encounter Summary ---
Author Organization [employer] Address [address] [place] [address] Care Team Providers Care Sow Farm Manager Name Role Phone Rolanda Thakur MD Primary Care Provider +1- [phone] Reason for Visit * Reason Onset Date Comments Referral 09/29/2022 Encounter Details Date Type Department Care Team ([facility] st Contact Info) Description 09/29/2022 Telephone [facility] CHC MED & PEDS [address] [place] [address] Rolanda Thakur MD [address] [place] [address] Referral Social History Tobacco Use Types Packs/Day [...] to fax order to Dr Dempsey on [phone] Dempsey's office on [phone]. Will forward message to provider. RN called Roxanne and gave her the phone and fax number to Dr Dempsey's office and also to f/u when EMG order is placed by PCP. * Telephone Encounter - Machelle Adam RN - 10/03/2022 10:09 AM EST Return call placed to Haylie at [facility], spoke with Jumana who states their office donot see pt for diabetic polyneuropathy but instead sees pt for foot drop or other issue. States Haylieis unavailable at this time but will informed her to call [facility] back if needed. Will forward message to PCP as FYI. * Telephone Encounter - Brinda Barnard - 09/29/2022 1:30 PM EST Tc from Haylie from [facility] med / rehab calling to inform they need more dx clarification for referral that was sent . and phone # [phone] documented in this encounter Plan of Treatment Upcoming Encounters Date Type Department Care Team (Late st Contact Info) Description 09/12/2025 3:15 PM EST Office Visit [facility] CHC MED & PEDS [address] [place] [address] Rolanda Thakur MD [address] [place] [address] documented as of this encounter Visit Diagnoses Diagnosis Diabetic polyneuropathy associated with diabetes mellitus due to underlying condition (HCC)- Primary documented in this encounter Care Teams Sow Farm Manager Relationship Specialty Start Date End Date Rolanda Thakur MD [address] [place], [place] [address] [address] PCP - General Internal Medicine 09/19/22 documented as of this encounter
--- OUTSIDE RECORDS SUMMARY | 2025-08-11 10:34 | XMS_ITS | Encounter Summary ---
Author Organization [employer] Address [address] [place] [address] 7 [place] [address] Care Team Providers Care Environmental Remediation Specialist Name Role Phone Rolanda Thakur MD Primary Care Provider [phone]- [phone] Reason for Visit * Reason Onset Date Comments Med Refill 12/26/2024 Encounter Details Date Type Department Care Team ([facility] st Contact Info) Description 12/26/2024 Refill [facility] CHC MED & PEDS 505 [place] [address] Maren Hough MD 505 [place] [address] Social History Tobacco Use Types Packs/Day Years [...] [facility] MED & PEDS [address] [place] [address] Rolanda Thakur MD [address] [place] [address] documented as of this encounter Visit Diagnoses Not on filedocumented in this encounter Additional Health Concerns Assessment Noted Time PHQ-9 Depression Total Score: 2 05/13/20 24 9:24 AM EDT documented as of this encounter Care Teams Environmental Remediation Specialist Relationship Specialty Start Date End Date Rolanda Thakur MD [address] [place] [address] PCP - General Internal Medicine 09/19/22 documented as of this encounter
--- OUTSIDE RECORDS SUMMARY | 2025-08-11 10:34 | XMS_ITS | Encounter Summary ---
Author Organization [employer] Address [address] [address] Care Team Providers Care Inside Outside Sales Representative Name Role Phone Rolanda Thakur MD Primary Care Provider +1- [phone] Reason for Visit * Reason Onset Date Comments Med Refill 12/26/2024 Encounter Details Date Type Department Care Team (Late st Contact Info) Description 12/26/2024 Refill [facility] MEDICINE [address] [place] [address] Rolanda Thakur MD 505 [place], [place] [phone] Neck pain on left side Social History [...] [facility] MED & PEDS [address] [place] [address] Rolanda Thakur MD [address] [place] [address] documented as of this encounter Visit Diagnoses Diagnosis Neck pain on left side documented in this encounter Additional Health Concerns Assessment Noted Time PHQ-9 Depression Total Score: 2 05/13/20 24 9:24 AM EDT documented as of this encounter Care Teams Inside Outside Sales Representative Relationship Specialty Start Date End Date Rolanda Thakur MD [address] [place] [address] PCP - General Internal Medicine 09/19/22 documented as of this encounter
--- OUTSIDE RECORDS SUMMARY | 2025-08-11 10:34 | XMS_ITS | Encounter Summary ---
Author Organization [employer] Address [address] [place] [address] Care Team Providers Care Strip Picker Name Role Phone Rolanda Thakur MD Primary Care Provider +1- [phone] Reason for Visit * Reason Onset Date Comments Med Refill 07/11/2025 Encounter Details Date Type Department Care Team ([facility] st Contact Info) Description 07/11/2025 Refill [facility] CHC MED & PEDS [address] [place] [address] Rolanda Thakur MD [address] [place] [address] Panic attack; Anxiety Social History Tobacco Use [...] Office Visit [facility] MED & PEDS [address] [place] [address] Rolanda Thakur MD [address] [place] [address] documented as of this encounter Goals Goal [...] documented as of this encounter Care Teams Strip Picker Relationship Specialty Start Date End Date Rolanda Thakur MD [address] [place] [address] PCP - General Internal Medicine 09/19/22 documented as of this encounter
--- OUTSIDE RECORDS SUMMARY | 2025-08-11 10:34 | XMS_ITS | Encounter Summary ---
Author Organization [employer] Address [address] [place] [address] Care Team Providers Care Seasonal Warehouse Associate Name Role Phone Rolanda Thakur MD Primary Care Provider +1- [phone] Reason for Visit * Reason Onset Date Comments Med Refill 12/26/2024 Encounter Details Date Type Department Care Team ([facility] st Contact Info) Description 12/26/2024 Refill [facility] CHC MED & PEDS [address] [place] [address] Rolanda Thakur MD [address] [place] [address] Anxiety; Benign essential hypertension Social History Tobacco [...] 3:15 PM EST Office Visit [facility] MED & PEDS [address] [place] [address] Rolanda Thakur MD [address] [place] [address] documented as of this encounter Visit Diagnoses Diagnosis Anxiety Anxiety state, unspecified Benign essential hypertension Essential hypertension, benign documented in this encounter Additional Health Concerns Assessment Noted Time PHQ-9 Depression Total Score: 2 05/13/20 24 9:24 AM EDT documented as of this encounter Care Teams Seasonal Warehouse Associate Relationship Specialty Start Date End Date Rolanda Thakur MD [address] [place] [address] PCP - General Internal Medicine 09/19/22 documented as of this encounter
--- OUTSIDE RECORDS SUMMARY | 2025-08-11 10:34 | XMS_ITS | Encounter Summary ---
Author Organization [employer] Address [address] [place] [address] Care Team Providers Care Nut Process Helper Name Role Phone Rolanda Thakur MD Primary Care Provider +1- [phone] Encounter Details Date Type Department Care Team ([facility] Contact Info) Description 05/02/2024 Orders Only [facility] MED & PEDS [address] [place], [place] [phone] Rolanda Thakur MD 505 [place] [address] Anxiety (Primary Dx) Social History Tobacco Use [...] [facility] MED & PEDS [address] [place], [place] [phone] Rolanda Thakur MD [address] [place], [place] [phone] documented as of this encounter Visit Diagnoses Diagnosis Anxiety- Primary Anxiety state, unspecified documented in this encounter Care Teams Nut Process Helper Relationship Specialty Start Date End Date Rolanda Thakur MD [address] [place] [address] PCP - General Internal Medicine 09/19/22 documented as of this encounter
--- OUTSIDE RECORDS SUMMARY | 2025-08-11 10:34 | XMS_ITS | Encounter Summary ---
Author Organization [employer] Address [address] [place] [address] Care Team Providers Care Printer Operator Name Role Phone Rolanda Thakur MD Primary Care Provider [phone]- [phone] Reason for Visit * Reason Onset Date Comments Medication Question 12/09/2022 Encounter Details Date Type Department Care Team ([facility] st Contact Info) Description 12/09/2022 Telephone [facility] CHC MED & PEDS [address] [place], [place] [phone] Rolanda Thakur MD [address] [place] [address] Medication Question Social History Tobacco Use Types [...] - 12/09/2022 3:51 PM EDT Tc from [facility] requesting a clarification in new script for Synthroid 50 MCG tablet if dosage was sent incorrectly because in last script (levothyroxine (Synthroid) 150 MCG tablet) it [id number] MCG and New script is it 50 mcg so pharmacy is requesting some clarification Please contact Pharmacy at [phone] documented in this encounter Plan of Treatment Upcoming Encounters Date Type Department Care Team ([facility] st Contact Info) Description 09/12/2025 3:15 PM EST Office Visit [facility] MED & PEDS [address] [place] [address] Rolanda Thakur MD [address] [place] [address] documented as of this encounter Visit Diagnoses Not on filedocumented in this encounter Care Teams Printer Operator Relationship Specialty Start Date End Date Rolanda Thakur MD [address] [place] [address] PCP - General Internal Medicine 09/19/22 documented as of this encounter
--- OUTSIDE RECORDS SUMMARY | 2025-08-11 10:34 | XMS_ITS | Encounter Summary ---
Author Organization [employer] Address [address] [place] [address] Care Team Providers Care Medical Insurance Verifier Name Role Phone Rolanda Thakur MD Primary Care Provider [phone]- [phone] Reason for Visit * Reason Onset Date Comments Call Back Request 11/17/2023 Encounter Details Date Type Department Care Team ([facility] st Contact Info) Description 11/17/2023 Telephone [facility] MEDICINE [address] [place] [address] Rolanda Thakur MD [address] [place], [place] [phone] Call Back Request Social History Tobacco Use [...] Message sent to PCP for review through [employer] [facility] portal * Telephone Encounter - Jenny Neff - 11/17/2023 8:06 AM EDT Tc from pt requesting a call back pt stated needs more information and clarifications 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 Please contact pt. documented in this encounter Plan of Treatment Upcoming Encounters Date Type Department Care Team ([facility] st Contact Info) Description 09/12/2025 3:15 PM EST Office Visit [facility] MED & PEDS [address] [place] [address] Rolanda Thakur MD [address] [place] [address] documented as of this encounter Visit Diagnoses Not on filedocumented in this encounter Care Teams Medical Insurance Verifier Relationship Specialty Start Date End Date Rolanda Thakur MD [address] [place] [address] PCP - General Internal Medicine 09/19/22 documented as of this encounter
--- OUTSIDE RECORDS SUMMARY | 2025-08-11 10:34 | XMS_ITS | Encounter Summary ---
Author Organization [employer] Address [address] [place] [address] [facility] [place] [address] Care Team Providers Care People Manager Name Role Phone Rolanda Thakur MD Primary Care Provider [phone] Reason for Referral * Consultation (Routine) - Closed Specialty Diagnoses / Procedures Referred By Freddy meadows Referred To Contact Neurology Diagnoses Other polyneuropathy Rolanda Thakur MD [address] [place] [address] Phone: tel: fax: [facility] [address] [place], [place] Phone: tel: fax: Referral ID Status Reason Start Date Expiration Date V isits Requested Visits Authorized [id number] Closed Specialty Services Required 11/22/2023 11/21/2024 1 1 * Consultation (Routine) - Closed Specialty Diagnoses / Procedures Referred By Freddy meadows Referred To Contact Physiatry Diagnoses Other polyneuropathy Rolanda Thakur MD [address] [place] [address] Phone: tel: fax: Referral ID Status Reason Start Date Expiration Date V isits Requested Visits Authorized [id number] Closed Specialty Services Required 11/17/2023 11/16/2024 1 1 Encounter Details Date Type Department Care Team (Late Contact Info) Description 11/16/2023 Orders Only [facility] MED & PEDS [address] [place] [address] Rolanda Thakur MD [address] [place] [address] Other polyneuropathy (Primary Dx) Social History Tobacco [...] [facility] MED & PEDS [address] [place] [address] Rolanda Thakur MD [address] [place] [address] Scheduled Referrals Name Type Priority Associated Diagnoses Orde r Schedule Referral to Physiatry Outpatient Referral Routine Other polyneuropathy Expected: 11/17/2023 (Approximate), Expires: 11/16/2024 Referral to Neurology Outpatient Referral Routine Other polyneuropathy Expected: 11/22/2023 (Approximate), Expires: 11/21/2024 documented as of this encounter Visit Diagnoses Diagnosis Other polyneuropathy- Primary documented in this encounter Care Teams People Manager Relationship Specialty Start Date End Date Rolanda Thakur MD [address] [place] [address] PCP - General Internal Medicine 09/19/22 documented as of this encounter
--- OUTSIDE RECORDS SUMMARY | 2025-08-11 10:34 | XMS_ITS | Encounter Summary ---
Author Organization [employer] Address [address] [place] [address] 7 [place] [address] Care Team Providers Care Architectural Representative Name Role Phone Rolanda Thakur MD Primary Care Provider [phone]- [phone] Encounter Details Date Type Department Care Team ([facility] Contact Info) Description 05/26/2025 Orders Only [facility] CHC MED & PEDS [address] [place] [address] Rolanda Thakur MD [address] [place] [address] Frequent UTI (Primary Dx); Vaginal dryness; Acquired [...] Description 09/12/2025 3:15 PM EST Office Visit [facility] CHC MED & PEDS [address] [place] [address] Rolanda Thakur MD [address] [place] [address] documented as of this encounter Visit Diagnoses Diagnosis Frequent UTI- Primary Urinary tract infection, site not specified Vaginal dryness Postmenopausal atrophic vaginitis Acquired hypothyroidism Unspecified hypothyroidism documented in this encounter Additional Health Concerns Assessment Noted Time PHQ-9 Depression Total Score: 2 05/13/20 24 9:24 AM EDT documented as of this encounter Care Teams Architectural Representative Relationship Specialty Start Date End Date Rolanda Thakur MD [address] [place] [address] PCP - General Internal Medicine 09/19/22 documented as of this encounter
--- OUTSIDE RECORDS SUMMARY | 2025-08-11 10:34 | XMS_ITS | Encounter Summary ---
Author Organization [employer] Address [address] [place] [address] Care Team Providers Care Hosted Services Analyst Name Role Phone Rolanda Thakur MD Primary Care Provider [phone]- [phone] Encounter Details Date Type Department Care Team ([facility] Contact Info) Description 12/07/2023 Telephone [facility] MEDICINE [address] [place], [place] [phone] Rolanda Thakur MD [address] [place] [address] Social History Tobacco Use Types Packs/Day Years [...] Encounters Date Type Department Care Team ([facility] Contact Info) Description 09/12/2025 3:15 PM EST Office Visit [facility] MED & PEDS [address] [place], [place] [phone] Rolanda Thakur MD [address] [place], [place] [phone] documented as of this encounter Visit Diagnoses Not on filedocumented in this encounter Care Teams Hosted Services Analyst Relationship Specialty Start Date End Date Rolanda Thakur MD [address] [place] [address] PCP - General Internal Medicine 09/19/22 documented as of this encounter
--- OUTSIDE RECORDS SUMMARY | 2025-08-11 10:34 | XMS_ITS | Encounter Summary ---
Author Organization [employer] Address [address] [place] [address] Care Team Providers Care Medical Technologist Name Role Phone Rolanda Thakur MD Primary Care Provider [phone]- [phone] Reason for Visit * Reason Onset Date Comments Created In Error 04/29/2024 Encounter Details Date Type Department Care Team ([facility] Contact Info) Description 04/29/2024 Telephone [facility] MEDICINE [address] [place], [place] [phone] Rolanda Thakur MD [address] [place], [place] [phone] Created In Error Social History Tobacco Use [...] Upcoming Encounters Date Type Department Care Team ([facility] Contact Info) Description 09/12/2025 3:15 PM EST Office Visit [facility] CHC MED & PEDS [address] [place], [place] [phone] Rolanda Thakur MD [address] [place], [place] [phone] documented as of this encounter Visit Diagnoses Not on filedocumented in this encounter Care Teams Medical Technologist Relationship Specialty Start Date End Date Rolanda Thakur MD [address] [place] [address] PCP - General Internal Medicine 09/19/22 documented as of this encounter
--- OUTSIDE RECORDS SUMMARY | 2025-08-11 10:34 | XMS_ITS | Encounter Summary ---
Author Organization [employer] Address [address] [address] Care Team Providers Care Pot Puncher Name Role Phone Rolanda Thakur MD Primary Care Provider +1- [phone] Reason for Visit * Reason Onset Date Comments Durable Medical Equipment 04/29/2024 Encounter Details Date Type Department Care Team (Late st Contact Info) Description 04/29/2024 Telephone [facility] MED[facility]INE [address] [place] [address] Rolanda Thakur MD 505 [place], [place] [phone] Durable Medical Equipment Social History Tobacco Use [...] encounter Miscellaneous Notes * Telephone Encounter - Rza Manuel - 04/29/2024 3:34 PM EDT Tc from [facility] pharmacy stating pt is requesting blood pressure monitor but they don't have a script. If any questions you can contact [facility] at [phone]. documented in this encounter Plan of Treatment Upcoming Encounters Date Type Department Care Team (Late st Contact Info) Description 09/12/2025 3:15 PM EST Office Visit [facility] MED & PEDS 505 [place] [address] Rolanda Thakur MD 505 [place] [address] documented as of this encounter Visit Diagnoses Not on filedocumented in this encounter Care Teams Pot Puncher Relationship Specialty Start Date End Date Rolanda Thakur MD 505 [place] [address] PCP - General Internal Medicine 09/19/22 documented as of this encounter
--- OUTSIDE RECORDS SUMMARY | 2025-08-11 10:34 | XMS_ITS | Encounter Summary ---
Author Organization [employer] Address [address] [address] Care Team Providers Care Animal Doctor Name Role Phone Rolanda Thakur MD Primary Care Provider +1- [phone] Reason for Visit * Reason Onset Date Comments Med Refill 12/26/2024 Encounter Details Date Type Department Care Team (Late st Contact Info) Description 12/26/2024 Refill [facility] MEDICINE 230 [place] [address] Rolanda Thakur MD 505 [place] [address] Social History Tobacco Use Types Packs/Day Years [...] Description 09/12/2025 3:15 PM EST Office Visit [facility] MED & PEDS 505 [place] [address] Rolanad Thakur MD 505 [place] [address] documented as of this encounter Visit Diagnoses Not on filedocumented in this encounter Additional Health Concerns Assessment Noted Time PHQ-9 Depression Total Score: 2 05/13/20 24 9:24 AM EDT documented as of this encounter Care Teams Animal Doctor Relationship Specialty Start Date End Date Rolanda Thakur MD 505 [place] [address] PCP - General Internal Medicine 09/19/22 documented as of this encounter
--- OUTSIDE RECORDS SUMMARY | 2025-08-11 10:34 | XMS_ITS | Encounter Summary ---
Author Organization [employer] Address [address] [place] [address] Care Team Providers Care Powder Truck Driver Name Role Phone Rolanda Thakur MD Primary Care Provider +1- [phone] Encounter Details Date Type Department Care Team (Late Contact Info) Description 01/22/2024 Orders Only [facility] MED & PEDS 505 [place], [place] [phone] Rolanda Thakur MD 505 [place] [address] Benign essential hypertension Social History Tobacco Use [...] [facility] 505 [place] [address] Rolanda Thakur MD 505 [place], [place] [phone] documented as of this encounter Procedures Procedure Name Priority Date/Time Associated Diagnosis Comments XR TOES 2+ VIEWS RIGHT Routine 02/19/2024 11:22 AM EDT documented in this encounter Results * XR Toes 2+ Views Right (02/19/2024 11:22 AM EDT) Anatomical Region Laterality Modality Lower Extremities, Toes Left Radiogra phic Imaging 02/19/2024 11:2 2 AM EDT Narrative 02/19/2024 12:38 PM EDT [address] [address] XRay Report Signed Patient: Angely Pineda MR#: [id number] : 1950 Acct:[id number] Age/Sex: 73 / F ADM Date: 02/19/24 Loc: HO.HHCX Attending Dr: Migdalia PALMER Ordering Physician: Migdalia Loza Date of Service: 02/19/24 Procedure(s): XR toe RT min 2V Accession Number(s): [id number] cc: Migdalia Loza EXAMINATION: BILATERAL TOES CLINICAL [...] in OV> 02/19/24 1234 DD/ 1122 TD/TT: Tobacco Farmworker: Procedure Note Donotuseinterpreter, Image - 02/19/[address] [address] XRay Report Signed Patient: Angely PinedaMR#: [id number] : 1Acct:[id number] Age/Sex: 73 / FADM Date: 02/19/24 Loc: HO.HHCX Attending Dr: Migdalia PALMER Ordering Physician: Migdalia Loza Date of Service: 02/19/24 Procedure(s): XR toe RT min 2V Accession Number(s): [id number] cc: Migdalia Loza EXAMINATION: BILATERAL TOES CLINICAL [...] in OV> 02/19/24 1234 DD/ 1122 TD/TT: Tobacco Farmworker: ARLENE Migdalia PALMER IMG XR PROCEDURES Edited Resul t - Final documented in this encounter Visit Diagnoses Diagnosis Benign essential hypertension Essential hypertension, benign documented in this encounter Care Teams Powder Truck Driver Relationship Specialty Start Date End Date Rolanda Thakur MD [address] [place] [address] PCP - General Internal Medicine 09/19/22 documented as of this encounter
--- OUTSIDE RECORDS SUMMARY | 2025-08-11 10:35 | XMS_ITS | Encounter Summary ---
Author Organization [employer] Address [address] [address] Care Team Providers Care Indexer Name Role Phone Rolanda Thakur MD Primary Care Provider +1- [phone] Reason for Visit * Reason Onset Date Comments Nurse Triage 12/12/2023 Encounter Details Date Type Department Care Team ([facility] st Contact Info) Description 12/12/2023 Telephone [facility] 230 [place] [address] Rolanda Thakur MD 505 [place], [place] [phone] Nurse Triage Social History Tobacco Use Types [...] from pt requesting to speak to PCP sales support advisorimmigration case manager in regards to scheduled sick visit tmr, states was advised to contact PCP before scheduled appt to see how pt is doing, pt stated they still has a severe cough. Plant Care Worker did advised appt is still expected. Pt is scheduled tmr 12/15/23 for ( chest congestion, cough , yellow nasal drainage. ) Please contact at [phone] * Telephone Encounter - Viktoria Schultz RN [...] point. Pt is advised to come to [facility] today to be seen since open till 8pm. PT is not sure if will be able to do that. Plant Care Worker contacted Haylie Barrientos [facility] and asked if would be possible to schedule Pt at [facility] 12/15/23 340pm apt which Pt would [...] Description 09/12/2025 3:15 PM EST Office Visit [facility] 505 [place] [address] Rolanda Thakur MD 505 [place] [address] documented as of this encounter Visit Diagnoses Not on filedocumented in this encounter Care Teams Indexer Relationship Specialty Start Date End Date Rolanda Thakur MD 505 [place] [address] PCP - General Internal Medicine 09/19/22 documented as of this encounter
--- OUTSIDE RECORDS SUMMARY | 2025-08-11 10:35 | XMS_ITS | Encounter Summary ---
Author Organization [employer] Address [address] [place] [address] Care Team Providers Care Automatic Gluing Machine Operator Name Role Phone Rolanda Thakur MD Primary Care Provider +1- [phone] Encounter Details Date Type Department Care Team (Late Contact Info) Description 12/28/2023 Orders Only [facility] MED & PEDS 505 [place] [address] Rolanda Thakur MD 505 [place] [address] Social History Tobacco Use Types Packs/Day Years [...] Description 09/12/2025 3:15 PM EST Office Visit [facility] MED & PEDS 505 [place] [address] Rolanda Thakur MD 505 [place], [place] [phone] documented as of this encounter Visit Diagnoses Not on filedocumented in this encounter Care Teams Automatic Gluing Machine Operator Relationship Specialty Start Date End Date Rolanda Thakur MD [address] [place] [address] PCP - General Internal Medicine 09/19/22 documented as of this encounter
--- OUTSIDE RECORDS SUMMARY | 2025-08-11 10:35 | XMS_ITS | Encounter Summary ---
Author Organization [employer] Address [address] [place] [address] Care Team Providers Care Electric Motor Repairman Name Role Phone Rolanda Thakur MD Primary Care Provider +1 [phone] Reason for Referral * Consultation (Routine) - Closed Specialty Diagnoses / Procedures Referred By Contac t Referred To Contact Endocrinology Diagnoses Type 2 diabetes mellitus without complication, without long-term current use of insulin (HCC) Rolanda Thakur MD [address] [place] [address] Phone: tel: fax: [facility] [address] [place] [phone] Phone: tel: fax: Referral ID Status Reason Start Date Expiration Date V isits Requested Visits Authorized [id number] Closed Specialty Services Required 08/26/2024 08/26/2025 1 1 Encounter Details Date Type Department Care Team (Late st Contact Info) Description 08/26/2024 Orders Only [facility] MED & PEDS [address] [place] [address] Rolanda Thakur MD [address] [place] [address] Type 2 diabetes mellitus without complication, without [...] Upcoming Encounters Date Type Department Care Team ([facility] Contact Info) Description 09/12/2025 3:15 PM EST Office Visit [facility] MED & PEDS 505 [place] [address] Rolanda Thakur MD 505 [place], [place] [phone] Scheduled Referrals Name Type Priority Associated Diagnoses Order Schedule Referral to Endocrinology Outpatient Referral Routine Type 2 diabetes mellitus without complication, without long-term current use of insulin ([facility]/HCC) Expected: 08/26/2024 (Approximate), Expires: 08/26/2025 documented as of this encounter Visit Diagnoses Diagnosis Type 2 diabetes mellitus without complication, without long-term current use of insulin ([facility] Primary documented in this encounter Additional Health Concerns Assessment Noted Time PHQ-9 Depression Total Score: 2 05/13/20 24 9:24 AM EDT documented as of this encounter Care Teams Electric Motor Repairman Relationship Specialty Start Date End Date Rolanda Thakur MD [address] [place] [address] PCP - General Internal Medicine 09/19/22 documented as of this encounter
--- OUTSIDE RECORDS SUMMARY | 2025-08-11 10:35 | XMS_ITS | Encounter Summary ---
Author Organization [employer] Address [address] [place] [address] Care Team Providers Care Mechanical Adjuster Name Role Phone Rolanda Thakur MD Primary Care Provider +1- [phone] Reason for Visit * Reason Onset Date Comments Med Refill 10/27/2023 Encounter Details Date Type Department Care Team (Late st Contact Info) Description 10/27/2023 Telephone [facility] MEDICINE 230 [place] [address] Rolanda Thakur MD 505 [place], [place] [phone] Med Refill Social History Tobacco Use Types [...] on medication 125 Please contact pt @ [phone] No meds. * Telephone Encounter - Haylie Cantor RN - 10/27/2023 3:44 PM EST Patient reporting alternating days of synthroid 125 mcg and synthroid 137 mcg. Requesting new script for synthroid 125 mcg. Please review and advise, thanks. Tc from pt requesting levothyroxine (Synthroid) 125 MCG tablet, specifications writer do not see med in chart but pt stated has been taking this medication for 10 years, pt switch 137 and 125 every day, specifications writer attempted to contact pharmacy for clarifications but [facility] open at 9:00AM. * Telephone Encounter - Jenny Neff - 10/27/2023 8:31 AM EST Tc from pt requesting levothyroxine (Synthroid) 125 MCG tablet, specifications writer do not see med in chart but pt stated has been taking this medication for 10 years, pt switch 137 and 125 every day, specifications writer attempted to contact pharmacy for clarifications but [facility] open at 9:00AM. documented in this encounter Plan of Treatment Upcoming Encounters Date Type Department Care Team (Late st Contact Info) Description 09/12/2025 3:15 PM EST Office Visit [facility] MED & PEDS 505 [place] [address] Rolanda Thakur MD 505 [place] [address] documented as of this encounter Visit Diagnoses Not on filedocumented in this encounter Care Teams Mechanical Adjuster Relationship Specialty Start Date End Date Rolanda Thakur MD [address] [place] [address] PCP - General Internal Medicine 09/19/22 documented as of this encounter
--- OUTSIDE RECORDS SUMMARY | 2025-08-11 10:35 | XMS_ITS | Encounter Summary ---
Author Organization [employer] Address [address] [place] [address] Care Team Providers Care Supplier Quality Name Role Phone Rolanda Thakur MD Primary Care Provider +1- [phone] Reason for Visit * Reason Onset Date Comments Referral 11/16/2023 Encounter Details Date Type Department Care Team ([facility] Contact Info) Description 11/16/2023 Telephone [facility] & PEDS [address] [place], [place] [phone] Rolanda Thakur MD 505 [place] [address] Referral Social History Tobacco Use Types Packs/Day [...] MyChart encounter. Any questions, contact pt at [phone] documented in this encounter Plan of Treatment Upcoming Encounters Date Type Department Care Team (Late st Contact Info) Description 09/12/2025 3:15 PM EST Office Visit [facility] MED & PEDS [address] [place] [address] Rolanda Thakur MD 505 [place] [address] documented as of this encounter Visit Diagnoses Not on filedocumented in this encounter Care Teams Supplier Quality Relationship Specialty Start Date End Date Rolanda Thakur MD 505 [place] [address] PCP - General Internal Medicine 09/19/22 documented as of this encounter
--- OUTSIDE RECORDS SUMMARY | 2025-08-11 10:35 | XMS_ITS | Encounter Summary ---
Author Organization [employer] Address [address] [place] [address] Care Team Providers Care Recyclable Materials Sorter Name Role Phone Rolanda Thakur MD Primary Care Provider +1- [phone] Encounter Details Date Type Department Care Team ([facility] Contact Info) Description 10/27/2023 Telephone [facility] MEDICINE [address] [place], [place] [phone] Rolanda Thakur MD 505 [place] [address] Social History Tobacco Use Types Packs/Day Years [...] Upcoming Encounters Date Type Department Care Team ([facility] Contact Info) Description 09/12/2025 3:15 PM EST Office Visit [facility] MED & PEDS 505 [place], [place] [phone] Rolanda Thakur MD [address] [place], [place] [phone] documented as of this encounter Visit Diagnoses Not on filedocumented in this encounter Care Teams Recyclable Materials Sorter Relationship Specialty Start Date End Date Rolanda Thakur MD [address] [place] [address] PCP - General Internal Medicine 09/19/22 documented as of this encounter
--- OUTSIDE RECORDS SUMMARY | 2025-08-11 10:35 | XMS_ITS | Encounter Summary ---
Author Organization [employer] Address 75 [facility] 7 [place] [address] Care Team Providers Care Blind Cleaner Name Role Phone Rolanda Thakur MD Primary Care Provider +1- [phone] Reason for Visit * Reason Onset Date Comments Med Refill 08/19/2024 Encounter Details Date Type Department Care Team (Late st Contact Info) Description 08/19/2024 Refill [facility] [address] [place] [address] Wyatt Huizar MD 230 [place] [address] Neck pain on left side Social History [...] Description 09/12/2025 3:15 PM EST Office Visit [facility] MED & PEDS 505 [place] [address] Rolanda Thakur MD 505 [place] [address] documented as of this encounter Visit Diagnoses Diagnosis Neck pain on left side documented in this encounter Additional Health Concerns Assessment Noted Time PHQ-9 Depression Total Score: 2 05/13/20 24 9:24 AM EDT documented as of this encounter Care Teams Blind Cleaner Relationship Specialty Start Date End Date Rolanda Thakur MD 505 [place] [address] PCP - General Internal Medicine 09/19/22 documented as of this encounter
--- OUTSIDE RECORDS SUMMARY | 2025-08-11 10:35 | XMS_ITS | Encounter Summary ---
Author Organization [employer] Address [address] [address] Care Team Providers Care Metal Miner Blasting Name Role Phone Rolanda Thakur MD Primary Care Provider +1- [phone] Reason for Visit * Reason Onset Date Comments FYI 10/11/2024 Encounter Details Date Type Department Care Team ([facility] st Contact Info) Description 10/11/2024 Telephone [facility] MEDICINE 230 [place] [address] Rolanda Thakur MD 505 [place], [place] [phone] FYI Social History Tobacco Use Types Packs/Day [...] Description 09/12/2025 3:15 PM EST Office Visit [facility] MED & PEDS 505 [place] [address] Rolanda Thakur MD 505 [place] [address] documented as of this encounter Visit Diagnoses Not on filedocumented in this encounter Additional Health Concerns Assessment Noted Time PHQ-9 Depression Total Score: 2 05/13/20 24 9:24 AM EDT documented as of this encounter Care Teams Metal Miner Blasting Relationship Specialty Start Date End Date Rolanda Thakur MD 505 [place] [address] PCP - General Internal Medicine 09/19/22 documented as of this encounter
--- OUTSIDE RECORDS SUMMARY | 2025-08-11 10:35 | XMS_ITS | Encounter Summary ---
Author Organization [employer] Address [address] [address] Care Team Providers Care Mobile Service Rv Technician Name Role Phone Rolanda Thakur MD Primary Care Provider +1- [phone] Reason for Visit * Reason Comments Med Refill Encounter Details Date Type Department Care Team ([facility] st Contact Info) Description 08/27/2024 Refill [facility] MEDICINE 230 [place] [address] Rolanda Thakur MD 505 [place], [place] [phone] Type 2 diabetes mellitus without complication, without long-term current use of insulin ([facility]) Social History Tobacco Use Types [...] 3:15 PM EST Office Visit [facility] MED & PEDS 505 [place] [address] Rolanda Thakur MD 505 [place] [address] documented as of this encounter Visit Diagnoses Diagnosis Type 2 diabetes mellitus without complication, without long-term current use of insulin (HCC) documented in this encounter Additional Health Concerns Assessment Noted Time PHQ-9 Depression Total Score: 2 05/13/20 24 9:24 AM EDT documented as of this encounter Care Teams Mobile Service Rv Technician Relationship Specialty Start Date End Date Rolanda Thakur MD 505 [place] [address] PCP - General Internal Medicine 09/19/22 documented as of this encounter
--- OUTSIDE RECORDS SUMMARY | 2025-08-11 10:35 | XMS_ITS | Encounter Summary ---
Author Organization [employer] Address 75 [facility] 7 [place] [address] Care Team Providers Care Director Global Sales Name Role Phone Rolanda Thakur MD Primary Care Provider +1- [phone] Encounter Details Date Type Department Care Team ([facility] Contact Info) Description 10/08/2024 Telephone [facility] PEDS 505 [place] [address] Rolanda Thakur MD 505 [place] [address] Social History Tobacco Use Types Packs/Day Years [...] Description 09/12/2025 3:15 PM EST Office Visit [facility] PEDS 505 [place] [address] Rolanda Thakur MD 505 [place] [address] documented as of this encounter Visit Diagnoses Not on filedocumented in this encounter Additional Health Concerns Assessment Noted Time PHQ-9 Depression Total Score: 2 05/13/20 24 9:24 AM EDT documented as of this encounter Care Teams Director Global Sales Relationship Specialty Start Date End Date Rolanda Thakur MD 505 [place] [address] PCP - General Internal Medicine 09/19/22 documented as of this encounter
--- OUTSIDE RECORDS SUMMARY | 2025-08-11 10:35 | XMS_ITS | Encounter Summary ---
Author Organization [employer] Address [address] [place] [address] Care Team Providers Care Manager Lan Name Role Phone Rolanda Thakur MD Primary Care Provider +1- [phone] Reason for Visit * Reason Onset Date Comments Nurse Triage 01/03/2024 Encounter Details Date Type Department Care Team ([facility] st Contact Info) Description 01/03/2024 Telephone [facility] MEDICINE 230 [place] [address] Rolanda Thakur MD 505 [place], [place] [phone] Nurse Triage Social History Tobacco Use Types [...] Description 09/12/2025 3:15 PM EST Office Visit [facility] MED & PEDS 505 [place] [address] Rolanda Thakur MD 505 [place] [address] documented as of this encounter Visit Diagnoses Not on filedocumented in this encounter Care Teams Manager Lan Relationship Specialty Start Date End Date Rolanda Thakur MD 505 [place] [address] PCP - General Internal Medicine 09/19/22 documented as of this encounter
--- OUTSIDE RECORDS SUMMARY | 2025-08-11 10:35 | XMS_ITS | Encounter Summary ---
Author Organization [employer] Address [address] [place] [address] Care Team Providers Care Solar Mechanical Engineer Name Role Phone Rolanda Thakur MD Primary Care Provider +1- [phone] Encounter Details Date Type Department Care Team (Late Contact Info) Description 10/27/2023 Orders Only [facility] MED & PEDS 505 [place], [place] [phone] Bhavesh Yang, MINOO [address] [place] [address] Social History Tobacco Use Types Packs/Day Years [...] 3:15 PM EST Office Visit [facility] MED & PEDS 505 [place] [address] Rolanda Thakur MD 505 [place] [address] documented as of this encounter Visit Diagnoses Not on filedocumented in this encounter Care Teams Solar Mechanical Engineer Relationship Specialty Start Date End Date Rolanda Thakur MD [address] [place] [address] PCP - General Internal Medicine 09/19/22 documented as of this encounter
--- OUTSIDE RECORDS SUMMARY | 2025-08-11 10:35 | XMS_ITS | Encounter Summary ---
Author Organization [employer] Address [address] [place] [address] Care Team Providers Care Hris Developer Name Role Phone Rolanda Thakur MD Primary Care Provider +1- [phone] Reason for Visit * Reason Comments Med Refill Encounter Details Date Type Department Care Team ([facility] Contact Info) Description 05/22/2025 Refill [facility] & PEDS [address] [place] [address] Rolanda Thakur MD 505 [place] [address] Social History Tobacco Use Types Packs/Day Years [...] [facility] Info) Description 09/12/2025 3:15 PM EST Office Visit [facility] MED & PEDS [address] [place] [address] Rolanda Thakur MD 505 [place] [address] documented as of this encounter Visit Diagnoses Not on filedocumented in this encounter Additional Health Concerns Assessment Noted Time PHQ-9 Depression Total Score: 2 05/13/20 24 9:24 AM EDT documented as of this encounter Care Teams Hris Developer Relationship Specialty Start Date End Date Rolanda Thakur MD 505 [place] [address] PCP - General Internal Medicine 09/19/22 documented as of this encounter
--- OUTSIDE RECORDS SUMMARY | 2025-08-11 10:35 | XMS_ITS | Encounter Summary ---
Author Organization [employer] Address [address] [place] [id number] Care Team Providers Care Nurse Sexual Assault Name Role Phone Rolanda Thakur MD Primary Care Provider [phone] Reason for Visit * Reason Onset Date Comments Medication Question 10/23/2023 Encounter Details Date Type Department Care Team ([facility] st Contact Info) Description 10/23/2023 Telephone [facility] MEDICINE [address] [place] [address] Rolanda Thakur MD [address] [place], [place] [id number] Medication Question Social History Tobacco Use Types [...] 3:15 PM EST Office Visit [facility] PEDS [address] [place] [address] Rolanda Thakur MD [address] [place] [address] documented as of this encounter Visit Diagnoses Not on filedocumented in this encounter Care Teams Nurse Sexual Assault Relationship Specialty Start Date End Date Rolanda Thakur MD [address] [place] [address] PCP - General Internal Medicine 09/19/22 documented as of this encounter
--- OUTSIDE RECORDS SUMMARY | 2025-08-11 10:35 | XMS_ITS | Encounter Summary ---
Author Organization [employer] Address [address] [place] [address] Care Team Providers Care Seed Packer Name Role Phone Rolanda Thakur MD Primary Care Provider [phone] Reason for Referral * Consultation (Routine) - Canceled Specialty Diagnoses / Procedures Referred By Contac t Referred To Contact Endocrinology Diagnoses Type 2 diabetes mellitus without complication, without long-term current use of insulin (HCC) Rolanda Thakur MD [address] [place] [address] Phone: tel: fax: Referral ID Status Reason Start Date Expiration Date Visits Requested Visits Authorized [id number] Canceled Specialty Services Required 10/08/2024 10/08/2025 1 1 Encounter Details Date Type Department Care Team (Late st Contact Info) Description 10/08/2024 Orders Only [facility] PEDS [address] [place] [id number] Rolanda Thakur MD [address] [place] [address] Type 2 diabetes mellitus without complication, without [...] Upcoming Encounters Date Type Department Care Team ([facility] st Contact Info) Description 09/12/2025 3:15 PM EST Office Visit [facility] [address] [place] [address] Rolanda Thakur MD [address] [place] [address] Scheduled Referrals Name Type Priority Associated Diagnoses Order Schedule Referral to Endocrinology Outpatient Referral Routine Type 2 diabetes mellitus without complication, without long-term current use of insulin ([facility]) Expected: 10/08/2024 (Approximate), Expires: 10/08/2025 documented as of this encounter Procedures Procedure Name Priority Date/Time Associated Diagnosis Comments HEMOGLOBIN A1C Routine 02/05/2025 12:22 PM EDT Type 2 diabetes mellitus without complication, without long-term current use of insulin ([facility]) documented in this encounter Results * (ABNORMAL) Hemoglobin A1c (02/05/2025 12:22 PM EDT) Hemoglobin A1c 7.4(H) <6.0 % [facility] Comment:Hemoglobin A1C Refer ence Range Adults: 4.8 - 6.0 % Non diabetic: < 6.0 % Goal: < 7.0 %Additional Action Suggested: > 8.0 %Note: Hemoglobin A1c results are invalid for patients with abnormal amounts of HbF. Blood transfusions may impact the HbA1c concentration in the patient sample. Estimated Average Glucose 166 mg/dL [facility] Comment:eAG = Estimated ave rage glucose which is %A1C expressed asaverage glucose, using the formula of the [id number]-[id number] Glucose study (ADAG), Diabetes Care, Vol.31,#8,Mar. 2007 Blood Venous blood specimen / Unknown 02/05/2025 12:22 PM EDT 02/05/2025 1:20 PM EDT us Rolanda Thakur MD LAB BLOOD ORDERABLES Final Result [facility] [address] [place] [phone] [phone] documented in this encounter Visit Diagnoses Diagnosis Type 2 diabetes mellitus without complication, without long-term current use of insulin ([facility])- Primary documented in this encounter Additional Health Concerns Assessment Noted Time PHQ-9 Depression Total Score: 2 05/13/20 24 9:24 AM EDT documented as of this encounter Care Teams Seed Packer Relationship Specialty Start Date End Date Rolanda Thakur MD [address] [place] [id number] PCP - General Internal Medicine 09/19/22 documented as of this encounter
--- OUTSIDE RECORDS SUMMARY | 2025-08-11 10:35 | XMS_ITS | Clinical Summary ---
Author Organization [employer] Address [address] [place] [address] [place] [address] Care Team Providers Care Clinical Team Manager Name Role Phone Rolanda Thakur MD Primary Care Provider [phone] Allergies Active Allergy Reactions Criticality Noted Date [...] long-term current use of insulin ([facility]) Use to test blood sugar 2 times daily 1 kit 12/27/19 25 Active cetirizine (ZyrTEC) 10 MG tablet TAKE 1 TABLET BY MOUTH DAILY 30 tablet 11 01/25/20 25 Active cyclobenzaprine (Flexeril) 10 MG tabletIndications [...] breakfast and before evening meal. 60 tablet 03/06/202025 Active glipiZIDE (Glucotrol) 10 MG tabletIndications :Type 2 diabetes mellitus without complication, without long-term current use of insulin (HCC) Take 1 tablet (10 mg) by mouth before breakfast and before evening meal. 60 tablet 03/20/202025 Active FREESTYLE LITE test stripIndications: Type 2 [...] 25 Active Blood Glucose Monitoring Suppl (FreeStyle [place] Lite) w/Device kitIndications:Ty pe 2 diabetes mellitus [...] DAY 90 capsule 2 05/09/20 25 Active cloNIDine (Catapres) 0.1 MG tabletIndications :Anxiety,Benign essential hypertension TAKE 1 TABLET(0.1 MG) BY MOUTH THREE TIMES DAILY 90 tablet 2 06/05/20 25 Active Estrogens Conjugated (Premarin) 0.625 MG/GM cream Insert 0.625 mg into the vagina 1 (one) time per week. 30 g 3 06/05/20 25 2025 Active Synthroid 125 MCG tabletIndications :Acquired hypothyroidism TAKE 1 TABLET BY MOUTH EVERY DAY 90 tablet 1 06/06/20 Active Blood Pressure kit USE TO CHECK BLOOD PRESSURE EVERY DAY 1 kit 07/14/20 Active Blood Pressure Monitoring (Omron 3 Series BP Monitor) device USE TO check BLOOD pressure EVERY DAY 1 each 07/16/20 25 Active clonazePAM (KlonoPIN) 0.5 MG tabletIndications :Panic attack,Anxiety TAKE 1 TABLET BY MOUTH EVERY DAY NEEDED FOR PANIC ATTACKS 10 tablet 07/30/20 25 Active Continuous Glucose Dietitian Helper (Dexcom G7 Dietitian Helper) deviceIndications :Type 2 diabetes mellitus without complication, without long-term current use of insulin (HCC) Inject 1 Units under the skin 4 times daily. 1 each 08/01/20 25 Active amLODIPine (Norvasc) 5 MG tabletIndications :Benign essential hypertension Take 1 tablet (5 mg) by mouth Once per day. 30 tablet 11 08/08/20 25 2025 Active Continuous Glucose Dietitian Helper (Dexcom G7 Dietitian Helper) deviceIndications :Type 2 diabetes mellitus without complication, without long-term current use of insulin (HCC) USE DIRECTED 1 each 02/19/20 25 2024 Discontinued(R eorder (will not trigger notification to Pharmacy)) Blood Pressure kit USE TO CHECK BLOOD PRESSURE EVERY DAY 1 kit 05/27/20 25 2024 Discontinued(R eorder (will not trigger notification to Pharmacy)) methenamine hippurate (Hiprex) 1 g tabletIndications :Frequent UTI Take 1 tablet (1 g) by mouth 2 times daily. 60 tablet 11 05/26/20 25 2024 Discontinued(T herapy completed) Estradiol 0.01 % creamIndications: Frequent UTI,Vaginal dryness Insert 1 g into the vagina 3 (three) times a week. 42.5 g 3 8:22 AM EST 06/06/20 25 2024 Discontinued(T herapy completed) Estrogens Conjugated (Premarin) 0.625 MG/GM creamIndications: Frequent UTI,Vaginal dryness Insert 0.625 mg into the vagina 3 (three) times a week. 30 g 3 06/06/20 25 2024 Discontinued(T herapy completed) clonazePAM (KlonoPIN) 0.5 MG tabletIndications :Panic attack,Anxiety TAKE 1 TABLET BY MOUTH EVERY DAY NEEDED FOR PANIC ATTACKS 10 tablet 06/18/20 25 2024 Discontinued clonazePAM (KlonoPIN) 0.5 MG tabletIndications :Panic attack,Anxiety TAKE 1 TABLET BY MOUTH EVERY DAY NEEDED FOR PANIC ATTACKS 10 tablet 07/14/20 25 2024 Discontinued Continuous Glucose Dietitian Helper (Dexcom G7 Dietitian Helper) deviceIndications :Type 2 diabetes mellitus with hyperglycemia, without long-term current use of insulin (HCC) 1 each Once per day for 1 day. 1 each 08/01/20 25 2024 Active Problems Problem Noted Date [...] Plan: Augmentin BID x 10 days Nasal [place] Follow up if worsening or no improvement [...] intervention , [facility], Patient to engage in OP therapy , and Patient to reach out to [facility] as needed Swelling of lip, tongue, and throat 05/10/2024 Assessment & Plan (05/22/2024 1:00 PM EDT): Patient reports episodes of swelling of exposure to different antigens, at this moment given recurrence and symptoms affecting patients daily, will strongly benefit of assessment from recoil spring winder to help elucidate etiology of symptoms. Peripheral [...] Encounters Date Type Department Care Team Description 08/10/2025 Refill [facility] [address] [place] [address] Rolanda Thakur MD Panic attack; Anxiety 08/08/2025 3:30 PM EST Office Visit [facility] [address] [place] [address] Rolanda Thakur MD Benign essential hypertension (Primary Dx); Palpitations; Anxiety 08/08/2025 Travel 08/04/2025 Telephone [facility] [address] [place] [phone] Rolanda Thakur MD Medication Question 08/04/2025 Telephone [facility] [address] [place] [phone] Rolanda Thakur MD Nurse Triage 08/01/2025 Telephone [facility] [address] [place] [address] Rolanda Thakur MD Nurse Triage 08/01/2025 Telephone [facility] [address] [place] [address] Rolanda Thakur MD Medication Question 08/01/2025 Orders Only [facility] [address] [place] [address] Rolanda Thakur MD Type 2 diabetes mellitus with hyperglycemia, without long-term current use of insulin (HCC) (Primary Dx); Type 2 diabetes mellitus without complication, without long-term current use of insulin (HCC) 07/29/2025 Refill [facility] [address] [place] [address] Rolanda Thakur MD Panic attack; Anxiety 07/16/2025 Telephone [facility] [address] [place] [phone] Rolanda Thakur MD Lab Orders 07/16/2025 Refill [facility] [address] [place] [address] Rolanda Thakur MD 07/11/2025 Refill [facility] [address] [place] [address] Rolanda Thakur MD Panic attack; Anxiety 07/11/2025 Refill [facility] [address] [place] [address] Rolanda Thakur MD 07/11/2025 Refill [facility] [address] [place], [place] [phone] Rolanda Thakur MD Panic attack; Anxiety 07/03/2025 Orders Only [facility] [address] [place], [place] [phone] Rolanda Thakur MD Urinary urgency (Primary Dx); Frequent UTI 07/03/2025 Telephone [facility] [address] [place] [address] Lexie Unger RN 07/03/2025 Refill [facility] [address] [place] [address] Rolanda Thakur MD 06/18/2025 Orders Only [facility] External Provider, [facility] 06/17/2025 Refill [facility] [address] [place] [address] Rolanda Thakur MD Panic attack; Anxiety 06/13/2025 Orders Only [facility] [address] [place], [place] [phone] Chema Biggs MD 06/09/2025 Orders Only [facility] [address] [place] [address] Maren Hough MD Atrophic vaginitis (Primary Dx) 06/05/2025 11:15 AM EDT Office Visit [facility] [address] [place] [address] Maren Hough MD Atrophic vaginitis (Primary Dx); Type 2 diabetes mellitus with hyperglycemia, without long-term current use of insulin (HCC); Weakening of rectovaginal tissue 06/05/2025 Telephone [facility] [address] [place] [address] Rolanda Thakur MD Call Back Request; Medication Question 06/05/2025 Travel 06/05/2025 Refill [facility] [address] [place], [place] [phone] Rolanda Thakur MD Anxiety; Benign essential hypertension 06/04/2025 Telephone [facility] [address] [place], [place] [phone] Rolanda Thakur MD Nurse Triage 06/02/[address] [phone] Rolanda Thakur MD Nurse Triage 05/31/2025 10:00 AM EDT Office Visit [facility] [address] [place] [phone] Edward Bach MD Urinary urgency (Primary Dx) 05/31/2025 Refill [facility] [address] [place], [place] [phone] Rolanda Thakur MD Panic attack; Anxiety 05/31/2025 Travel 05/29/2025 Results Follow-Up [address] [address] Kelsie Genao NP Urinalysis Complete 05/29/2025 Results Follow-Up [address] [address] Kelsie Genao NP Culture, Urine, Routine 05/29/2025 Telephone [facility] [address] [place], [place] [phone] Rolanda Thakur MD 05/28/2025 Orders Only [address] [address] Kelsie Genao NP 05/28/[address] [address] Rolanda Weber MD 05/26/2025 Orders Only [facility] [address] [place], [place] [phone] Rolanda Thakur MD Frequent UTI (Primary Dx); Vaginal dryness; Acquired hypothyroidism 05/24/2025 Telephone [facility] [address] [place] [address] Kelsie Genao NP 05/22/2025 Refill [facility] [address] [place] [address] Rolanda Thakur MD 05/16/2025 Refill [facility] [address] [place], [place] [phone] Rolanda Thakur MD Panic attack; Anxiety 05/13/2025 Telephone [facility] [address], [place] [phone] Rolanda Thakur MD 05/12/2025 Results Follow-Up [facility] [address] [place], [place] [phone] Rolanda Thakur MD Culture, Urine, Routine from Last 3 Months Immunizations Immunization Administration [...] Pulse 57 08/08/2025 2:57 PM EST Temperature 36.4 C (97.6 F) 06/05/2025 11:26 AM EDT Respiratory Rate 20 08/08/2025 2:57 PM EST Oxygen Saturation 99% 08/08/2025 2:57 PM EST Inhaled Oxygen Concentration - - Weight 67.6 kg (149 lb) 08/08/2025 2:57 PM EST Height 162.6 cm (5' 4 ) 08/08/2025 2:57 PM EST Body Mass Index 25.58 08/08/2025 2:57 PM EST Plan of Treatment Upcoming Encounters Date Type Department Care Team ([facility] st Contact Info) Description 09/12/2025 3:15 PM EST Office Visit [facility] [address] [place] [address] Rolanda Thakur MD [address] [place] [address] Health Maintenance Due Date Last Done Comments [...] 10/2024, 07/17/2024, Additional history exists Tobacco Screening 08/08/2026 08/08/2025 Mammogram 12/17/2026 12/17/2024, 11/20, 12/17/2024 Colorectal Cancer [...] Patient has chronic kidney disease No Huong Hereida RN Patient has diabetic neuropathy Care Plan [...] chronic kidney disease No Huong Heredia, MINOO Patient has chronic kidney disease Care Plan Patient has chronic kidney disease No Huong Heredia, MINOO Patient has diabetic [...] disease No Jesi Boyd LPN Patient has diabetic neuropathy Care Plan Patient has diabetic neuropathy No Jesi Boyd LPN Patient has diabetic neuropathy Care Plan Patient has diabetic neuropathy No Oliver, Jesi, ROLL COVERER Patient has diabetic neuropathy Care Plan Patient has diabetic neuropathy No Oliver, Jesi, ROLL COVERER Weekly blood pressure task Care Plan Weekly blood pressure task No Oliver, Jesi, ROLL COVERER Weekly blood pressure task Care Plan Weekly blood pressure task No Oliver, Jesi, ROLL COVERER Weekly blood pressure task Care Plan Weekly blood pressure task No Oliver, Jesi, ROLL COVERER Patient has chronic kidney disease Care Plan Patient has chronic kidney disease No Oliver, Jesi, ROLL COVERER Patient has chronic kidney disease Care Plan Patient has chronic kidney disease No Oliver, Jesi, ROLL COVERER Patient has chronic kidney disease Care Plan Patient has chronic kidney disease No Oliver, Jesi, ROLL COVERER Patient has diabetic neuropathy Care Plan Patient has diabetic neuropathy No Oliver, Jesi, ROLL COVERER Patient has diabetic neuropathy Care Plan Patient has diabetic neuropathy No Oliver, Jesi, ROLL COVERER Patient has diabetic neuropathy Care Plan Patient has diabetic neuropathy No Oliver, Jesi, ROLL COVERER Weekly blood pressure task Care Plan Weekly [...] Plan Weekly blood pressure task No Lexie Unger, MINOO Weekly blood pressure task Care Plan Weekly blood pressure task No Lexie Unger RN Weekly blood pressure task Care Plan Weekly blood pressure task No Lexie Unger, RN Patient has chronic kidney disease Care Plan Patient has chronic kidney disease No Lexie Unger, RN Patient has chronic kidney disease Care [...] Plan Patient has chronic kidney disease No Uw, Uday Patient has chronic kidney disease Care [...] Patient has chronic kidney disease No WuUday quezada Patient has chronic kidney disease Care Plan [...] Plan Weekly blood pressure task No Philip Manule Weekly blood pressure task Care Plan Weekly [...] has diabetic neuropathy No Jacqueline Laurent MA Weekly blood pressure task Care Plan Weekly blood pressure task No Huong Heredia RN Weekly blood pressure task Care Plan Weekly blood pressure task No Huong Heredia RN Weekly blood pressure task Care Plan Weekly blood pressure task No Huong Heredia, RN Patient has chronic kidney disease Care Plan Patient has chronic kidney disease No Huong Heredia, RN Patient has chronic kidney disease Care Plan Patient has chronic kidney disease No Huong Heredia, MINOO Patient has chronic kidney disease Care Plan Patient has chronic kidney disease No Huong Heredia, MINOO Patient has diabetic neuropathy Care Plan Patient has diabetic neuropathy No Huong Heredia RN Patient has diabetic neuropathy Care Plan Patient has diabetic neuropathy No Huong Heredia RN Patient has diabetic neuropathy Care Plan Patient has diabetic neuropathy No Huong Heredia RN Procedures Procedure Name Priority Date/Time Associated Diagnosis Comments AMB REFERRAL TO CARDIOLOGY Routine 07/23/2025 History of chest pain XR SACRUM COCCYX 2+ VIEWS Routine 06/18/2025 8:40 AM EDT US RETROPERITONEAL COMPLETE (KIDNEYS AND BLADDER) Routine 06/08/2025 9:25 AM EDT POCT GLUCOSE (CPT-03100) Routine 06/05/2025 11:28 AM EDT Type 2 diabetes mellitus with hyperglycemia, without long-term current use of insulin (HCC) AMB REFERRAL TO UROLOGY Routine 05/30/2025 Recurrent UTI URINALYSIS, COMPLETE (INCLUDES MACRO AND MICRO) Routine 05/28/2025 7:40 AM EDT Frequent UTI CULTURE, URINE, ROUTINE Routine 05/28/20 7:40 AM EDT ALBUMIN, RANDOM URINE W/CREATININE Routine 05/10/2025 8:50 AM EDT HEMOGLOBIN A1C Routine 05/10/2025 7:54 AM EDT LIPID PANEL, STANDARD Routine 05/10/2025 7:54 AM EDT HM MAMMOGRAPHY Routine 12/17/2024 8:40 AM EDT LAB COLOGUARD COLON CANCER SCREEN Routine 08/09/2024 8:30 AM EST Screening for colon cancer HEPATITIS C AB W/REFL TO HCV RNA, QN, PCR Routine 07/17/2024 3:20 PM EST Type 2 diabetes mellitus without complication, without long-term current use of insulin (CMS/HCC) Decreased GFR from Last 3 Months or Most Recently Relevant to Health Maintenance Results * Referral to Cardiology (07/23/2025) us Rolanda Thakur MD OUTPATIENT REFERRAL ORDERAB LES Final Result * XR Sacrum Coccyx 2+ Views (06/18/2025 8:40 AM EDT) Anatomical Region Laterality Modality Sacrum, Coccyx Radiographic Gabriella ging 06/18/2025 8:40 AM EDT Narrative 06/18/2025 9:06 AM EDT [facility] [address] [place] [address] [place] [address] XRay Report Signed Patient: Angely Pineda MR#: [id number] : 1950 Acct:[id number] Age/Sex: 74 / F ADM Date: 06/18/25 [facility]: Flor Obrien PA-C Ordering Physician: Flor Obrien PA-C Date of Service: 06/18/25 Procedure(s): XR sacrum coccyx min 2V Accession Number(s): [id number] cc: Rolanda Thakur MD; Flor Obrien PA-C [...] 06/18/25 0903 DD/ 0840 TD/TT: 06/18/25 0857 [place] [facility] Director: BLANE Procedure Note Donotuseinterpreter, Image - 06/18/2025 [facility] [place] [address] XRay Report Signed Patient: Angely PinedaMR#: [id number] : 1Acct:[id number] Age/Sex: 74 / FADM Date: 06/18/25 Loc: [facility] Attending Dr: Flor Obrien PA-C Ordering Physician: Flor Obrien PA-C Date of Service: 06/18/25 Procedure(s): XR sacrum coccyx min 2V Accession Number(s): [id number] cc: Rolanda Thakur MD; Flor Obrien PA-C [...] 06/18/25 0903 DD/ 0840 TD/TT: 06/18/25 0857 [place] [facility] Director: BLANE [facility] External Provider IMG XR PROCEDURES Final Result [...] (ABNORMAL) Urinalysis Complete (05/28/2025 7:40 AM EDT) Color Urine Dark Yellow [facility] Appearance Urine Clear [facility] PH 6.0 5.0 - 9.0 [facility] Glucose Urine UA Negative Negative mg/dL [facility] Urine Blood Negative Negative [facility] Specific [place] - Urine 1.010 1.005 - 1.025 [facility] Urine Protein Negative Neg-Trace mg/dL [facility] Urine Ketones Negative Negative mg/dL [facility] Nitrite Urine Negative Negative [facility] Leukocyte Esterase Urine Moderate (2+)(A) Negative [facility] RBC Urine 0-2 0 - 2 /HPF [facility] Urine WBC 0-5 0 - 5 /HPF [facility] Urine Squamous Epithelial Cell 0-2 0 - 2 /HPF [facility] Urine Bacteria None Seen None Seen [facility] Hyaline Casts, Urine 0-2 0 - 2 /LPF [facility] Urine Urine specimen obtained by clean catch procedure / Unknown 05/28/2025 7:40 AM EDT 05/28/2025 10:14 AM EDT Kelsie Genao NP LAB URINE ORDERABLES Final Resu lt [facility] [address] [place] [phone] [phone] * Culture, Urine, Routine (05/28/2025 7:40 AM EDT) Urine Urine specimen obtained by clean catch procedure / Unknown 05/28/2025 7:40 AM EDT 05/28/2025 10:14 AM EDT Comment:UACC Narrative [facility] - 05/29/2025 9:32 AM EDT Urine Culture Report Result Urine Culture 10,000 to 50,000 cfu/ml Urine Culture Mixed bacterial hailey characteristic of Urine Culture urogenital contamination. Specimen Source: Urine clean catch Kelsie Genao [employer] [facility] MICROBIOLOGY - GENERAL ORDE RABLES Final Result Performing Organization Address [facility]/ZIP Co de Phone Number [facility] [address] [place] [phone] * Albumin, Random Urine W/Creatinine (05/10/2025 8:50 AM EDT) Creatinine, Urine 85.42 mg/dL [facility] Microalbumin Urine 12.0 mg/L [facility] Microalbum Creatinine Ratio Ur 14.0 <30 ug/mg cr [facility] Comment:Albumin/Creatinine R atio Reference Ranges: Normal: < 30 ug/mg creatinine Microalbuminuria: 30 - 300 ug/mg creatinineClinical Albuminuria: > 300 ug/mg creatinine 05/10/2025 8:50 AM EDT 05/10/2025 11:44 AM EDT Generic External Data Provider LAB URINE ORDERAB LES Final Result Performing Organization Address City/[facility]/ZIP Co de Phone Number [facility] [address] [place] [phone] * (ABNORMAL) Hemoglobin A1c (05/10/2025 7:54 AM EDT) Hemoglobin A1c 7.0(H) <6.0 % [facility] Comment:Hemoglobin A1C Refer ence Range Adults: 4.8 - 6.0 % Non diabetic: < 6.0 % Goal: < 7.0 %Additional Action Suggested: > 8.0 %Note: Hemoglobin A1c results are invalid for patients with abnormal amounts of HbF. Blood transfusions may impact the HbA1c concentration in the patient sample. Estimated Average Glucose 154 mg/dL [facility] Comment:eAG = Estimated ave rage glucose which is %A1C expressed asaverage glucose, using the formula of the B0K-FceifqzHohbxhh Glucose study (ADAG), Diabetes Care, Vol.31,#8,Mar. 2007 05/10/2025 7:54 AM EDT 05/10/2025 10:59 AM EDT us Generic External Data Provider LAB BLOOD ORDERAB LES Final Result [facility] [address] [place] [phone] * (ABNORMAL) Lipid Panel, Standard (05/10/2025 7:54 AM EDT) Triglycerides 70 <150 mg/dL [facility] Comment:Desirable Triglyceri de: less than 150 mg/dLBorderline High Triglyceride 150-199 mg/dLHigh Triglyceride: 200-499 mg/dLVery High Triglyceride: greater than or equal to 5OO mg/dL Cholesterol 177 <200 mg/dL [facility] Comment:Desirable Cholestero l: less than 200 mg/dLBorderline High Cholesterol: 200-239 mg/dLHigh Cholesterol: greater than 239 mg/dL LDL Cholesterol Calculated 103(H) <100 mg/dL [facility] Comment:Desirable LDL: less than 100 mg/dLNear Optimal/Above Optimal LDL: 110- 129 mg/dLBorderline High LDL: 130-159 mg/dLHigh LDL: 160-189 mg/dLVery High LDL: greater than or equal to 190 mg/dL HDL Cholesterol 60 >40 mg/dL [facility] Comment:Desirable HDL: great er than 40 mg/dL Note: This HDL assay may give artificially low results in patients with liver disease. 05/10/2025 7:54 AM EDT 05/10/2025 10:59 AM EDT us Generic External Data Provider LAB BLOOD ORDERAB LES Final Result [facility] [address] [place] [phone] * Hm Mammography (12/17/2024 8:40 AM EDT) Anatomical Region Laterality Modality Other us Historical Provider HEALTH MAINTENANCE Final Result * Cologuard?? colon cancer screening (08/09/2024 8:30 AM EST) Pathologist [facility] Cologuard Result Negative Negative 08/18/20 11:52 PM EST [facility] (CLIA #:[id number]) Comment: NEGATIVE TEST RESULT. A negative Cologuard [...] (Dioni Kelly al, N Engl J Med 2014;370(14):9072-6160) The normal value (reference range) for this assay is negative. COLOGUARD RE-SCREENING RECOMMENDATION: Periodic colorectal cancer screening is an important part of preventive healthcare for asymptomatic individuals at average risk for colorectal cancer. Following a negative Cologuard result, the [place] and U.S. Multi-Society Task Force screening guidelines recommend a Cologuard re-screening interval of 3 years. References: [place] [employer] Guideline for Colorectal Cancer Screening: https://www.cancer.org/cancer/emvsw-wdikqr-wuzkyu/oiqjjzdpt-iakjwuicq-ncyiudh/ac s-rec ommendations.html.; Santiago MCINTYRE, Ileana PERERA, Emery OLIVER, Colorectal Cancer Screening: Recommendations for Physicians and Patients from the U.S. Multi-Society Task Force on Colorectal Cancer Screening , Am J Gastroenterology 2017; 112:7189-8961. TEST DESCRIPTION: Composite algorithmic analysis of stool [...] (Dioni Kelly al, N Engl J Med 2014;370(14):2417-9013.) Cologuard may produce a false negative or false positive result (no colorectal cancer or precancerous polyp present at colonoscopy follow up). A negative Cologuard test result does not guarantee the absence of CRC or advanced adenoma (pre-cancer). The current Cologuard screening interval is every 3 years. ([place] [employer] and U.S. Multi-Society Task Force). Cologuard performance data in a 10,000 patient pivotal study using colonoscopy as the reference method can be accessed at the following location: www.Given.to.MobileVeda/results. Additional description of the Cologuard test process, warnings and precautions can be found at www.Awareness Cardrd.com. Stool specimen (specimen) 08/09/2024 8:30 AM EST 08/10/2024 2:47 PM EST us Rolanda Thakur MD LAB MOLECULAR DIAGNOSTICS O RDERABLES Final Result [facility] (CLIA #:[id number]) [address] [place] [address], * Hepatitis C Antibody with Reflex to HCV, RNA, Quantitative, Real-Time PCR (07/17/2024 3:20 PM EST) Hepatitis C Antibody Nonreactive Nonreactive [facility] Comment:Antibodies to HCV no t detected; does not exclude early acuteHCV infection. Blood Venous blood specimen / Unknown 07/17/2024 3:20 PM EST 07/17/2024 5:23 PM EST us Rolanda Thakur MD LAB BLOOD ORDERABLES Final Result [facility] [address] [place] [phone] from Last 3 Months or Most [...] neuropathy 08/08/2025 Patient has diabetic neuropathy 08/08/2025 Weekly blood pressure task 08/11/2025 Weekly blood pressure task 08/11/2025 Weekly blood pressure task 08/11/2025 Patient has chronic kidney disease 08/11/2025 Patient has chronic kidney disease 08/11/2025 Patient has chronic kidney disease 08/11/2025 Patient has diabetic neuropathy 08/11/2025 Patient has diabetic neuropathy 08/11/2025 Patient has diabetic neuropathy 08/11/2025 Insurance [facility] [place] [phone] Care Teams Clinical Team Manager Relationship Specialty Start Date End Date Rolanda Thakur MD [address] [place] [address] [place] [address] PCP - General Internal Medicine 09/19/22
--- OUTSIDE RECORDS SUMMARY | 2025-08-11 10:35 | XMS_ITS | Encounter Summary ---
Author Organization [employer] Address [address] [place] [id number] Care Team Providers Care Nuclear Equipment Operator Name Role Phone Rolanda Thakur MD Primary Care Provider [phone]- [phone] Encounter Details Date Type Department Care Team (Late Contact Info) Description 08/18/2023 Orders Only [facility] [address] [place] [address] Rolanda Thakur MD [address] [place] [address] Social History Tobacco Use Types Packs/Day Years [...] Description 09/12/2025 3:15 PM EST Office Visit [facility] [address] [place] [address] Rolanda Thakur MD [address] [place] [address] documented as of this encounter Visit Diagnoses Not on filedocumented in this encounter Care Teams Nuclear Equipment Operator Relationship Specialty Start Date End Date Rolanda Thakur MD [address] [place] [id number] PCP - General Internal Medicine 09/19/22 documented as of this encounter
--- OUTSIDE RECORDS SUMMARY | 2025-08-11 10:35 | XMS_ITS | Encounter Summary ---
Author Organization [employer] Address [address] [place] [address] Care Team Providers Care Punch Press Feeder Name Role Phone Rolanda Thakur MD Primary Care Provider [phone] Reason for Referral * Consultation (Routine) - Closed Specialty Diagnoses / Procedures Referred By Contac t Referred To Contact Podiatry Diagnoses Type 2 diabetes mellitus without complication, without long-term current use of insulin (HCC) Rolanda Thakur MD [address] [place] [address] Phone: tel: fax: Carl Avitia DPM Phone: tel: fax: Referral ID Status Reason Start Date Expiration Date V isits Requested Visits Authorized [id number] Closed Specialty Services Required 11/01/2023 10/31/2024 1 1 Encounter Details Date Type Department Care Team (Late st Contact Info) Description 10/23/2023 Orders Only [facility] [address] [place] [address] Rolanda Thakur MD [address] [place] [address] Acquired hypothyroidism (Primary Dx); Type 2 diabetes [...] [facility] [address] [place] [address] Rolanda Thakur MD [address] [place] [address] Scheduled Referrals Name Type Priority Associated Diagnoses Orde r Schedule Referral to Podiatry Outpatient Referral Routine Type 2 diabetes mellitus without complication, without long-term current use of insulin ([facility]/HCC) Expected: 11/01/2023 (Approximate), Expires: 10/31/2024 documented as of this encounter Visit Diagnoses Diagnosis Acquired hypothyroidism- Primary Unspecified hypothyroidism Type 2 diabetes mellitus without complication, without long-term current use of insulin ([facility]) documented in this encounter Care Teams Punch Press Feeder Relationship Specialty Start Date End Date Rolanda Thakur MD [address] [place] [address] PCP - General Internal Medicine 09/19/22 documented as of this encounter
--- OUTSIDE RECORDS SUMMARY | 2025-08-11 10:35 | XMS_ITS | Encounter Summary ---
Author Organization [employer] Address [address] [place] [address] Care Team Providers Care Home Staging Specialist Name Role Phone Rolanda Thakur MD Primary Care Provider [phone]- [phone] Encounter Details Date Type Department Care Team (Latest Contact Info) Description 08/17/2021 Abstract [facility] CONVERSIONS Dental, Provider, DDS Social History [...] 3:15 PM EST Office Visit [facility] [address] [place] [address] Rolanda Thakur MD [address] [place] [address] documented as of this encounter Visit Diagnoses Not on filedocumented in this encounter Care Teams Home Staging Specialist Relationship Specialty Start Date End Date Rolanda Thakur MD [address] [place] [address] PCP - General Internal Medicine 09/19/22 documented as of this encounter
--- OUTSIDE RECORDS SUMMARY | 2025-08-11 10:35 | XMS_ITS | Encounter Summary ---
Author Organization [employer] Address [address] [address] Care Team Providers Care Project Geologist Name Role Phone Rolanda Thakur MD Primary Care Provider [phone]- [phone] Reason for Visit * Reason Onset Date Comments Nurse Triage 08/09/2024 Encounter Details Date Type Department Care Team ([facility] st Contact Info) Description 08/09/2024 Telephone [facility] [address] [place] [address] Rolanda Thakur MD [address] [place], [place] [id number] Nurse Triage Social History Tobacco Use Types [...] precautions and reasons to call back. Reviewed [facility] operating hours and that wait times vary. Protocol Used: Neck Pain or Stiffness (Adult) Protocol-Based Disposition: See in Office or Video Visit Today or Tomorrow Future Appointments Date Time Provider Department Center 08/10/2024 9:40 AM [facility] 2 WALK-IN [facility] Insurance verified as active per [employer] [...] Description 09/12/2025 3:15 PM EST Office Visit [facility] [address] [place] [address] Rolanda Thakur MD [address] [place] [address] documented as of this encounter Visit Diagnoses Not on filedocumented in this encounter Additional Health Concerns Assessment Noted Time PHQ-9 Depression Total Score: 2 05/13/20 24 9:24 AM EDT documented as of this encounter Care Teams Project Geologist Relationship Specialty Start Date End Date Rolanda Thakur MD [address] [place] [address] PCP - General Internal Medicine 09/19/22 documented as of this encounter
== END 2025-08-11 10:29 | disposition home or self-care (01) ==
PROVIDERS: PCP Internal Medicine; Visit Provider Nurse Practitioner Family
DX: M53.3 Sacrococcygeal disorders, not elsewhere classified (principal)

== ENCOUNTER → 2025-08-11 09:22 | Outpatient (BNVA) | payer MEDICARE, SELFPAY | PROVIDERS: PCP Internal Medicine; Visit Provider Nurse Practitioner Family | DX: M79.605 Pain in left leg (principal); M53.3 Sacrococcygeal disorders, not elsewhere classified | CPT/HCPCS: 99212 ==